=== PATIENT | male | born 1950 | race Caucasian/White ===

== ENCOUNTER 2016-12-04 19:40 | Emergency (ER) | payer BC ==
[~2016-12-04] VITALS: Ht 182.9 cm; Wt 75.7 kg
[2016-12-04 19:44] VITALS: Ht 182.9 cm; Wt 75.7 kg
[2016-12-04] MEDS ORDERED: METF-384 PO (20:33)
[2016-12-04] MEDS ORDERED: CHOL1000 PO (20:33)
[2016-12-04] MEDS ORDERED: ASPI81TA28 PO (20:33)
[2016-12-04] MEDS ORDERED: ATEN50TA8 PO (20:33)
[2016-12-04] MEDS ORDERED: HYDR25TA4 PO (20:33)
[2016-12-04 20:50] LABS: URINE APPEARANCE CLOUDY (CLEAR); URINE BILIRUBIN NEG (NEG); URINE COLOR YELLOW; URINE EPITHELIAL CELL AUTO 0-5 /lpf (0-5); URINE NITRITE NEG (NEG); URINE PH 5.5 (4.5-7.5); URINE SPECIFIC GRAVITY 1.028 (1.000-1.030); UROBILINOGEN NEG (NEG); ZZUR CULT IF INDIC CLEAN CATCH YES
[2016-12-04 20:53] LABS: MANUAL MICROSCOPIC REQUIRED? NO; REVIEW REQ? YES
[2016-12-04] MEDS ORDERED: CIPR-255 PO (21:57)
--- NOTE | 2016-12-04 22:00 | EMERGENCY ROOM VISIT NOTE ---
History Report prepared by Destiny: Guillermina Brand Under the Supervision of: Dr. Jeff Lainez D.O. First contact with patient: 20:05 Chief Complaint: URINARY SYMPTOMS Stated Complaint: UTI History of Present Illness The patient is a 66 year old male who presents to the Emergency Room with complaints of constant urinary symptoms beginning 1 week ago. The patient states that he travels for work and 2 weeks ago he was in [place] and there was brackish water. He notes that he was not supposed to drink the water and notes that it had sulfur in it. The patient now complains of burning with urination. He denies any hematuria, fever, abdominal pain, back pain, nausea, and vomiting. The patient notes that he has a history of hypertension. He notes decreased fluid intake due to frequent and painful urination. Source of History: patient Onset: 1 week ago Position: other (urinary) Quality: other (burning) Timing: constant Modifying Factors (Worsening): urination Associated Symptoms: No fevers, No nausea, No vomiting, No abdominal pain, No back pain Note: He denies any hematuria. Review of Systems See HPI for pertinent positives & negatives. A total of 10 systems reviewed and were otherwise negative. Past Medical & Surgical Medical Problems: (1) Hypertension Family History No pertinent family history stated. Social History Smoking Status: Never Smoker Occupation Status: employed Current/Historical Medications Scheduled Aspirin (Aspirin Ec), 81 MG PO DAILY Atenolol (Tenormin), 50 MG PO QAM Cholecalciferol (Vitamin D3), 1,000 INTER.UNIT PO DAILY Ciprofloxacin Hcl (Cipro), 500 MG PO BID Hydrochlorothiazide (Hctz), 25 MG PO QAM Metformin Hcl (Glucophage), 1,000 MG PO BID Allergies Coded Allergies: No Known Allergies (Unverified , 12/04/16) Physical Exam Vital Signs Date Time Temp Pulse Resp B/P (MAP) Pulse Ox O2 Delivery O2 Flow Rate FiO2 12/04/16 22:22 36.7 87 20 136/74 99 12/04/16 19:44 36.7 87 20 136/74 99 Room Air Physical Exam CONSTITUTIONAL/VITAL SIGNS: Reviewed / noted above. GENERAL: Non-toxic in appearance. INTEGUMENTARY: Warm, dry, and [place]. HEAD: Normocephalic. EYES: without scleral icterus or trauma. ENT/OROPHARYNX: clear and moist. LYMPHADENOPATHY/NECK: Is supple without lymphadenopathy or meningismus. RESPIRATORY: Lungs clear and equal. CARDIOVASCULAR: Regular rate and rhythm. GI/ABDOMEN: Soft and nontender. No organomegaly or pulsatile mass. No rebound or guarding. Normal bowel sounds. EXTREMITIES: Warm and well perfused. BACK: No CVA tenderness. NEUROLOGICAL: Intact without focal deficits. PSYCHIATRIC: normal affect. MUSCULOSKELETAL: Normally developed with good muscle tone. Medical Decision & Procedures Laboratory Results Test 12/04/16 00:00 12/04/16 20:33 Urine Color YELLOW Urine Appearance CLOUDY (CLEAR) Urine pH 5.5 (4.5-7.5) Urine Specific [place] 1.028 (1.000-1.030) Urine Protein 1+ (NEG) Urine Glucose (UA) 3+ (NEG) Urine Ketones 4+ (NEG) Urine Occult Blood 2+ (NEG) Urine Nitrite NEG (NEG) Urine Bilirubin NEG (NEG) Urine Urobilinogen NEG (NEG) Urine Leukocyte Esterase SMALL (NEG) Urine WBC (Auto) >30 /hpf (0-5) Urine RBC (Auto) 0-4 /hpf (0-4) Urine Hyaline Casts (Auto) 1-5 /lpf (0-5) Urine Epithelial Cells (Auto) 0-5 /lpf (0-5) Urine Bacteria (Auto) 1+ (NEG) Bedside Glucose 322 mg/dl (70-99) Laboratory results as stated above per my review. Medications Administered Medications (Trade) Dose Ordered Sig/Nilda Route Start Time Stop Time Status Last Admin Dose Admin Ciprofloxacin (Cipro Tab) 500 mg NOW STAT PO 12/04/16 22:05 12/04/16 22:06 DC 12/04/16 22:05 500 MG ED Course 2008: Previous medical records were reviewed. The patient was evaluated in room A3. A complete history and physical examination was performed. 2103: I reevaluated and updated the patient. 2201: On reevaluation, the patient is doing well. I discussed the results and findings with the patient. He verbalized agreement of the treatment plan. The patient was discharged home. Medical Decision Differential diagnosis includes UTI, over hydration, diabetes. Medication Reconciliation: I attest that I have personally reviewed the patient' s current medication list. Blood pressure Screening: Patient was found to have normal blood pressure on screening and does not require follow-up. This is a 66-year-old male who presents to the ED with a chief complaint of burning with urination. His had the symptoms for a couple of days. The patient denies any other significant symptoms. No fevers or flank pain. No nausea vomiting. He is a diabetic. He takes metformin. His blood sugar today was 3 22. The patient's urine reveals 4+ ketones, 2+ blood, small leukocyte esterase, greater than 30 WBCs and 1+ bacteria. The patient was treated with Cipro 500 mg twice daily. He was given one weeks worth. He is felt to be stable for discharge and outpatient follow-up. Impression Primary Impression: Urinary tract infection Scribe Attestation The scribe's documentation has been prepared under my direction and personally reviewed by me in its entirety. I confirm that the note above accurately reflects all work, treatment, procedures, and medical decision making performed by me. Departure Information Dispostion Home / Self-Care Prescriptions Ciprofloxacin Hcl (CIPRO) 500 Mg Tab 500 MG PO BID, #14 TAB Prov: Jeff Lainez D.O. 12/04/16 Forms HOME CARE DOCUMENTATION FORM, IMPORTANT VISIT INFORMATION Patient Instructions ED UTI Cystitis Male, My [facility] Additional Instructions Cipro as prescribed for one week. Follow-up with your doctor as needed if symptoms persist. Return for severe worsening or new concerns. Your blood sugar was high. Increase daily fluid intake.
[2016-12-04] MEDS ORDERED: CIPROFLOXACIN 500 MG TAB PO STA (22:05)
[2016-12-04 22:22] VITALS: BP 136/74; PULSE 87; TEMP 36.7; O2SAT 99
== END 2016-12-04 22:20 | disposition home or self-care (01) ==
LOC: C.EDB 19:42 → C.EDA 22:20
DX: N39.0 Urinary tract infection, site not specified (principal); I10 Essential (primary) hypertension; Z79.82 Long term (current) use of aspirin; Z79.899 Other long term (current) drug therapy

== ENCOUNTER 2016-12-06 09:28 | Inpatient (IN) | payer BC ==
[~2016-12-06] VITALS: Ht 182.9 cm; Wt 79.2 kg
[~2016-12-06 09:28] MED LIST: ASPI81TA28 PO; ATEN50TA8 PO; CHOL1000 PO; CIPR-255 PO; HYDR25TA4 PO; METF-384 PO
[2016-12-06] MEDS ORDERED: PHENAZOPYRIDINE HCL 200 MG TAB PO STA (10:08)
[2016-12-06] MEDS ORDERED: SODIUM CHLORIDE 0.9% 500ML 500 ML IV STA (10:08)
[2016-12-06] MEDS ORDERED: CEFTRIAXONE SOD INJ 1 GM ADDVIAL IV STA (10:08)
[2016-12-06 11:16] LABS: BASO % 0.2 %; BASO ABS # 0.03 K/uL (0-0.2); COMPLETE YES; HEMATOCRIT 40.5 % (42-52); IG% 0.5 %; LYMPH % 3.8 %; LYMPH ABS # 0.65 K/uL (1.2-3.4); MEAN CELL VOLUME 94.4 fL (80-100); MEAN CORPUSCULAR HEMOGLOBIN 31.5 pg (25-34); MEAN CORPUSCULAR HGB CONC 33.3 g/dl (32-36); MONO % 8.6 %; NEUT % 86.9 %; PLATELET COUNT 355 K/uL (130-400); RED BLOOD COUNT 4.29 M/uL (4.7-6.1); WHITE BLOOD COUNT 17.19 K/uL (4.8-10.8)
[2016-12-06 11:18] LABS: BUN/CREATININE RATIO 18.8 (10-20); CALCIUM 8.8 mg/dl (8.5-10.1); CREATININE 1.4 mg/dl (0.60-1.40); POTASSIUM 3.8 mmol/L (3.5-5.1)
[2016-12-06] MEDS ORDERED: VITA1TAB12 PO (11:21)
[2016-12-06] MEDS ORDERED: CYAN100020 PO (11:21)
--- NOTE | 2016-12-06 11:34 | DIAGNOSTIC IMAGING REPORT ---
CHEST AND ABDOMEN 2 VIEWS HISTORY: no bowel movement for several days COMPARISON: FINDINGS: The lungs are clear. The cardiomediastinal silhouette is within normal limits. There is no pneumoperitoneum or pneumatosis. The bowel gas pattern is unremarkable. No evidence for bowel obstruction. Large amount well-formed stool seen within the proximal colon. Rim calcified structure within the right upper quadrant may represent the gallbladder. Punctate calcifications adjacent to the kidneys favor vascular calcification. Soft tissue density within the midline pelvis. IMPRESSION: 1. No acute process within the chest. 2. No evidence for bowel obstruction. 3. Large amount well-formed stool within the proximal colon. 4. Rim calcified structure within the right upper quadrant which likely represents the gallbladder. 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 Follow-up nonemergent abdominal ultrasound is recommended. 5. Soft tissue density within the midline of the pelvis which favors a distended bladder. Electronically signed by: Wale Cronin M.D. 12/06/2016 11:33 AM Dictated Date/Time: 12/06/2016 11:29 AM
[2016-12-06] MEDS ORDERED: SODIUM CHLORIDE 0.9% 1000ML 1,000 ML IV STA (11:41)
[2016-12-06 11:51] LABS: URINE APPEARANCE CLEAR (CLEAR); URINE BILIRUBIN NEG (NEG); URINE COLOR YELLOW; URINE EPITHELIAL CELL AUTO >30 /lpf (0-5); URINE NITRITE NEG (NEG); URINE SPECIFIC GRAVITY 1.031 (1.000-1.030); UROBILINOGEN NEG (NEG)
[2016-12-06 11:55] LABS: REVIEW REQ? YES
[2016-12-06 11:56] LABS: MANUAL MICROSCOPIC REQUIRED? NO
[2016-12-06 12:07] LABS: VEN BLD GAS O2 SATURATION 67.3 %; VEN BLOOD GAS BASE EXCESS -5.6 mmol/L; VENOUS BLOOD GAS PCO2 36 mmHg (38.0-50.0); VENOUS BLOOD GAS PO2 37 mmHg
[2016-12-06] MEDS ORDERED: NovoLIN-R INSULIN PER UNIT CHARGE SC STA (12:07)
[2016-12-06] MEDS ORDERED: ONDANSETRON INJ 2 MG/ML 2 ML VIAL IV PRN (12:45)
[2016-12-06] MEDS ORDERED: ALUMINUM/MAGNESIUM/SIMETH (MAALOX MAX) 30 ML UDC PO PRN (12:45)
[2016-12-06] MEDS ORDERED: PHARMACY GLYCEMIC MGMT CONSULT PRN (12:45)
[2016-12-06] MEDS ORDERED: HHS GOAL RANGE 250-350 mg/dl ONE (12:45)
--- NOTE | 2016-12-06 12:59 | History and Physical ---
History & Physical Date & Time of Service: Dec 06, 2016 at 12:47 Chief Complaint: Urinary Tract Infection Primary Care Physician: No Doctor, Assigned History of Present Illness Source: patient Pt is a 66 yo male with known hx of DMII and HTN who presents to the ER with complaints burning sensation on urination for past 3 weeks. Pt states this was progressively getting worse and noted he had a drink of water that contained sulfur in it that might have caused this." Pt reports coming to ER two days ago and was given cipro at that time. Pain on urination still persisted however. Sensitivities pending but cx pos for staph. In addition pt states nausea but denies fevers, chill, abd pain, shortness of breath, chest pain, flank pain, diarrhea. Regarding his diabetes, pt states he only checks his glucose once a month and reading are generally high in the 200s. He states he has no PCP and that his [id number] prescribes him the metformin and blood pressure medications. Past Medical/Surgical History Medical Problems: (1) Hypertension Status: Chronic Family History No pertinent family history Social History Smoking Status: Former Smoker (quit 10 yrsa ago but smoked 1/2 ppd for 20+ yrs) Smokeless Tobacco Use: No Alcohol Use: socially Drug Use: none Marital Status: single Occupational Status: employed Allergies Coded Allergies: No Known Allergies (Unverified , 12/06/16) Home Medications Scheduled Aspirin (Aspirin Ec), 81 MG PO DAILY Atenolol (Tenormin), 50 MG PO QAM Cholecalciferol (Vitamin D3), 1,000 INTER.UNIT PO DAILY Cyanocobalamin (Vitamin B12), 1,000 MCG PO DAILY Hydrochlorothiazide (Hctz), 25 MG PO QAM Metformin Hcl (Glucophage), 1,000 MG PO BID Vitamin E (Vitamin E), 100 UNITS PO DAILY Review of Systems Constitutional: No fever, No chills, No sweats, No weakness, No fatigue ENT: No hearing loss, No unusual epistaxis, No nasal symptoms, No sore throat Respiratory: No cough, No sputum, No wheezing, No shortness of breath, No dyspnea on exertion Cardiovascular: No chest pain, No orthopnea, No PND, No edema Abdomen: + nausea, No pain, No vomiting, No diarrhea, No constipation Musculoskeletal: No joint pain, No muscle pain, No swelling, No calf pain Genitourinary - Male: + dysuria, No hematuria, No urinary frequency, No urinary urgency Neurologic: No memory loss, No paralysis, No weakness Psychiatric: No depression symptoms, No anhedonism Endocrine: No fatigue, No excessive thirst Integumentary: No rash, No itch Physical Exam Vital Signs Date Time Temp Pulse Resp B/P (MAP) Pulse Ox O2 Delivery O2 Flow Rate FiO2 12/06/16 11:43 83 17 107/60 97 Room Air 12/06/16 09:38 36.8 84 18 106/61 99 Room Air General Appearance: WD/WN, no apparent distress Head: normocephalic, atraumatic Eyes: normal inspection, PERRL, EOMI, sclerae normal Neck: supple, no adenopathy, thyroid normal, no JVD Respiratory/Chest: chest non-tender, lungs clear, normal breath sounds, no respiratory distress Cardiovascular: regular rate, rhythm, no edema, no gallop, no JVD Abdomen/GI: normal bowel sounds, non tender, soft, no organomegaly Back: normal inspection, no CVA tenderness, no muscle spasm, normal range of motion Extremities/Musculoskelatal: normal inspection, no calf tenderness, normal capillary refill, no pedal edema Neurologic/Psych: no motor/sensory deficits, alert, normal mood/affect, normal reflexes Diagnostics Laboratory Results Results Past 24 Hours Test 12/06/16 00:00 12/06/16 10:19 12/06/16 10:24 12/06/16 11:55 Range/Units Urine Color YELLOW Urine Appearance CLEAR CLEAR Urine pH 5.0 4.5-7.5 Urine Specific [place] 1.031 1.000-1.030 Urine Protein 1+ NEG Urine Glucose (UA) 3+ NEG Urine Ketones 3+ NEG Urine Occult Blood 2+ NEG Urine Nitrite NEG NEG Urine Bilirubin NEG NEG Urine Urobilinogen NEG NEG Urine Leukocyte Esterase TRACE NEG Urine WBC (Auto) >30 0-5 /hpf Urine RBC (Auto) 5-10 0-4 /hpf Urine Hyaline Casts (Auto) 5-10 0-5 /lpf Urine Epithelial Cells (Auto) >30 0-5 /lpf Urine Bacteria (Auto) 1+ NEG Urine Renal Epithelial Cells 0-5 /lpf Urine Pathogenic Casts 0 /lpf Urine Sperm (Auto) PRESENT NOT PRESENT Bedside Glucose 381 70-99 mg/dl White Blood Count 17.19 4.8-10.8 K/uL Red Blood Count 4.29 4.7-6.1 M/uL Hemoglobin 13.5 14.0-18.0 g/dL Hematocrit 40.5 42-52 % Mean Corpuscular Volume 94.4 80-100 fL Mean Corpuscular Hemoglobin 31.5 25-34 pg Mean Corpuscular Hemoglobin Concent 33.3 32-36 g/dl Platelet Count 355 130-400 K/uL Neutrophils (%) (Auto) 86.9 % Lymphocytes (%) (Auto) 3.8 % Monocytes (%) (Auto) 8.6 % Eosinophils (%) (Auto) 0.0 % Basophils (%) (Auto) 0.2 % Neutrophils # (Auto) 14.95 1.4-6.5 K/uL Lymphocytes # (Auto) 0.65 1.2-3.4 K/uL Monocytes # (Auto) 1.48 0.11-0.59 K/uL Eosinophils # (Auto) 0.00 0-0.5 K/uL Basophils # (Auto) 0.03 0-0.2 K/uL Immature Granulocyte % (Auto) 0.5 % Immature Granulocyte # (Auto) 0.08 0.00-0.02 K/uL Red Blood Cell Morphology Unremarkable Sodium Level 135 136-145 mmol/L Potassium Level 3.8 3.5-5.1 mmol/L Chloride Level 95 98-107 mmol/L Carbon Dioxide Level 23 21-32 mmol/L Anion Gap 17.0 3-11 mmol/L Blood Urea Nitrogen 26 7-18 mg/dl Creatinine 1.40 0.60-1.40 mg/dl Est Creatinine Clear Calc Drug Dose 53.8 ml/min Estimated GFR () 59.4 Estimated GFR (Non- 51.3 BUN/Creatinine Ratio 18.8 10-20 Random Glucose 392 70-99 mg/dl Calcium Level 8.8 8.5-10.1 mg/dl Total Bilirubin 0.4 0.2-1 mg/dl Direct Bilirubin 0.1 0-0.2 mg/dl Aspartate Amino Transf (AST/SGOT) 21 15-37 U/L Alanine Aminotransferase (ALT/SGPT) 14 12-78 U/L Alkaline Phosphatase 114 45-117 U/L Total Protein 7.9 6.4-8.2 gm/dl Albumin 2.9 3.4-5.0 gm/dl Lipase 67 73-393 U/L Venous Blood pH 7.35 7.36-7.41 Venous Blood Partial Pressure CO2 36 38.0-50.0 mmHg Venous Blood Partial Pressure O2 37 mmHg Venous Blood HCO3 19 meq/L Venous Blood Oxygen Saturation 67.3 % Venous Blood Base Excess -5.6 mmol/L Test 12/06/16 12:40 Range/Units Impression Assessment and Plan Pt is a 66 yo male with hx of DMII and HTN who presents with progressing dysuria x 3 weeks. Pt came to ER 2 days ago and was given cipro, at that time cx pos for stap with sens pending. Urinary tract infection - Will cover for staph with vanc and cover empirically with rocephin as well. Will obtain blood cx as well. Cont IVF at this time and keep pt NPO due to DKA DM II with [facility] - Pt reports hx of DM II but does not follow with PCP, states brother in law calls in metformin. Hold PO meds at this time and start on insulin drip. Noted pos ketones and elev AG. ABG does not note acidosis. Trend BMP and consult pharmacy for glycemic control. HgAIC pending. Will keep NPO and provide IVF. Pt will need PCP upon discharge. Dehydration/MACY - Bebo hold BP meds at this time HTN - Controlled at this time, see above Pt is FULL CODE VTE Prophylaxis VTE Risk Assessment Done? Y/N: Yes Risk Level: Moderate
[2016-12-06] MEDS: INSULIN ASPART 100 UNITS/ML 3 ML PEN SC SCH ×4 (13:00→20:50)
[2016-12-06] MEDS ORDERED: SODIUM CHLORIDE 0.9% 1000ML 1,000 ML IV ONE (13:15)
[2016-12-06 13:21] LABS: ESTIMATED AVERAGE GLUCOSE 329 mg/dl; HA1C FLAG Normal (Normal)
[2016-12-06] MEDS ORDERED: INSULIN IV INFUSION PROTOCOL SCH (13:32)
[2016-12-06 13:41] VITALS: BMI 22.5
--- NOTE | 2016-12-06 13:50 | Pharmacy Progress Note ---
Glycemic Control Intl Consult Date of Service Dec 06, 2016. Scope Glycemic Pharmacist consulted by Dr Hill on 12/06/16 for glycemic control and to write orders per [facility] [place] inpatient glycemic control protocol Objective Weight (Kilograms): 75.300 Accuchecks BSG (last 24hrs): Test 12/06/16 10:19 12/06/16 10:24 Bedside Glucose 381 mg/dl (70-99) Random Glucose 392 mg/dl (70-99) Laboratory Data (last 24hrs) Test 12/06/16 10:24 Anion Gap 17.0 mmol/L BUN/Creatinine Ratio 18.8 Blood Urea Nitrogen 26 mg/dl Creatinine 1.40 mg/dl Hemoglobin A1c 13.1 % Potassium Level 3.8 mmol/L Sodium Level 135 mmol/L White Blood Count 17.19 K/uL Red Blood Count 4.29 M/uL Hemoglobin 13.5 g/dL Hematocrit 40.5 % Mean Corpuscular Volume 94.4 fL Mean Corpuscular Hemoglobin 31.5 pg Mean Corpuscular Hemoglobin Concent 33.3 g/dl Platelet Count 355 K/uL Neutrophils (%) (Auto) 86.9 % Lymphocytes (%) (Auto) 3.8 % Monocytes (%) (Auto) 8.6 % Eosinophils (%) (Auto) 0.0 % Basophils (%) (Auto) 0.2 % Neutrophils # (Auto) 14.95 K/uL Lymphocytes # (Auto) 0.65 K/uL Monocytes # (Auto) 1.48 K/uL Eosinophils # (Auto) 0.00 K/uL Basophils # (Auto) 0.03 K/uL HbA1c Test 12/06/16 10:24 Hemoglobin A1c 13.1 % (4.5-5.6) H Recent Pertinent Medications Outpatient Anti-diabetic Regimen: * Metformin 1 g PO BIDM Risk Factors for Insulin Resistance: * Infection * IVF * Diet Assessment & Plan ASSESSMENT: * 66 yo M presenting today with painful urination X 3 weeks and severe hyperglycemia * A1c from today 13.1% indicating that patient usually lives in the 300's * Per MD, patient to be treated per [facility] protocol which I agree with * Initiate aggressive fluid therapy for dehydration/restore renal perfusion * Initiate Insulin drip per protocol * Moving forward I will keep goal range on insulin drip 200-300 mg/dL and reassess tomorrow * Since patient lives in the 300's I think he should probably be able to tolerate this goal range and it will make it easier to transition off drip versus 250-350 mg/dL goal range (pt is nearly within goal range now) PLAN FOR INPATIENT GLYCEMIC CONTROL: * Starting IV insulin infusion per severe stress protocol * Goal Range 200 - 300 mg/dl * In the critical care setting, continuous IV insulin infusion has been shown to be the best method for achieving glycemic targets. * Hold outpatient metformin LOOKING AHEAD TO DISCHARGE: * Pt will need insulin and follow up with PCP as soon as possible * Recommend CDE to see patient while here * Please note that the plan above was derived based on current level of insulin resistance and hospital stress. These recommendations are appropriate for inpatient admission only. Plan of care upon discharge will need to be reassessed to avoid potential outpatient hypo/hyperglycemia. Thank you.
[2016-12-06 13:54] LABS: BETA-HYDROXYBUTYRATE 64.38 mg/dL (0.2-2.81)
[2016-12-06] MEDS ORDERED: SODIUM CHLORIDE 0.9% 1000ML 1,000 ML IV SCH (14:15)
[2016-12-06] MEDS ORDERED: INSULIN HUMAN REGULAR IV BOLUS 3 UNIT in SYRINGE 0 ML IV SCH (14:30)
[2016-12-06] MEDS ORDERED: INSULIN REGULAR 250 UNITS in SODIUM CHLORIDE 0.9% 250ML 250 ML IV SCH (14:30)
[2016-12-06] MEDS ORDERED: GLUCOSE 10 TABS/TUBE PO PRN (14:45)
[2016-12-06] MEDS ORDERED: GLUCOSE 40% GEL 15 GM TUBE PO PRN (14:45)
[2016-12-06] MEDS ORDERED: GLUCAGON FOR INJ 1 MG VIAL SQ PRN (14:45)
[2016-12-06] MEDS ORDERED: DEXTROSE 50% 50 ML SYR IV PRN (14:45)
[2016-12-06 15:00] VITALS: BP 110/60; PULSE 78; TEMP 36.3; O2SAT 97
[2016-12-06] MEDS ORDERED: VANCOMYCIN CONSULT ACTIVE PRN (15:30)
--- NOTE | 2016-12-06 15:30 | Pharmacy Progress Note ---
Pharmacy Abx Initial Consult Date of Service Dec 06, 2016. Pharmacy Dosing Scope Date of Consult: 12/06/16 Consultation requested by: Dr. Hill Pharmacy is consulted to initiate Vancomycin IV dosing therapy, order appropriate labs and adjust drug dose/frequency. Subjective The patient is a 66 year old male admitted on Dec 06, 2016 at 12:40. Objective Height (Feet): 6 Height (Inches): 0.00 Weight (Kilograms): 75.300 Vital Signs (Past 12Hrs) Vital Signs Past 12 Hours Date Time Temp Pulse Resp B/P (MAP) Pulse Ox O2 Delivery O2 Flow Rate FiO2 12/06/16 14:29 84 19 110/53 95 12/06/16 13:41 Room Air 12/06/16 13:40 82 18 107/60 98 Room Air 12/06/16 11:43 83 17 107/60 97 Room Air 12/06/16 09:38 36.8 84 18 106/61 99 Room Air Lab Results (24Hrs) Test 12/06/16 00:00 12/06/16 10:19 12/06/16 10:24 12/06/16 11:55 Urine Color YELLOW Urine Appearance CLEAR (CLEAR) Urine pH 5.0 (4.5-7.5) Urine Specific [place] 1.031 (1.000-1.030) Urine Protein 1+ (NEG) Urine Glucose (UA) 3+ (NEG) Urine Ketones 3+ (NEG) Urine Occult Blood 2+ (NEG) Urine Nitrite NEG (NEG) Urine Bilirubin NEG (NEG) Urine Urobilinogen NEG (NEG) Urine Leukocyte Esterase TRACE (NEG) Urine WBC (Auto) >30 /hpf (0-5) Urine RBC (Auto) 5-10 /hpf (0-4) Urine Hyaline Casts (Auto) 5-10 /lpf (0-5) Urine Epithelial Cells (Auto) >30 /lpf (0-5) Urine Bacteria (Auto) 1+ (NEG) Urine Renal Epithelial Cells /lpf (0-5) Urine Pathogenic Casts /lpf (0) Urine Sperm (Auto) PRESENT (NOT PRESENT) Bedside Glucose 381 mg/dl (70-99) White Blood Count 17.19 K/uL (4.8-10.8) Red Blood Count 4.29 M/uL (4.7-6.1) Hemoglobin 13.5 g/dL (14.0-18.0) Hematocrit 40.5 % (42-52) Mean Corpuscular Volume 94.4 fL (80-100) Mean Corpuscular Hemoglobin 31.5 pg (25-34) Mean Corpuscular Hemoglobin Concent 33.3 g/dl (32-36) Platelet Count 355 K/uL (130-400) Neutrophils (%) (Auto) 86.9 % Lymphocytes (%) (Auto) 3.8 % Monocytes (%) (Auto) 8.6 % Eosinophils (%) (Auto) 0.0 % Basophils (%) (Auto) 0.2 % Neutrophils # (Auto) 14.95 K/uL (1.4-6.5) Lymphocytes # (Auto) 0.65 K/uL (1.2-3.4) Monocytes # (Auto) 1.48 K/uL (0.11-0.59) Eosinophils # (Auto) 0.00 K/uL (0-0.5) Basophils # (Auto) 0.03 K/uL (0-0.2) Immature Granulocyte % (Auto) 0.5 % Immature Granulocyte # (Auto) 0.08 K/uL (0.00-0.02) Red Blood Cell Morphology Unremarkable Sodium Level 135 mmol/L (136-145) Potassium Level 3.8 mmol/L (3.5-5.1) Chloride Level 95 mmol/L (98-107) Carbon Dioxide Level 23 mmol/L (21-32) Anion Gap 17.0 mmol/L (3-11) Blood Urea Nitrogen 26 mg/dl (7-18) Creatinine 1.40 mg/dl (0.60-1.40) Est Creatinine Clear Calc Drug Dose 53.8 ml/min Estimated GFR () 59.4 Estimated GFR (Non- 51.3 BUN/Creatinine Ratio 18.8 (10-20) Random Glucose 392 mg/dl (70-99) Estimated Average Glucose 329 mg/dl Hemoglobin A1c 13.1 % (4.5-5.6) Calcium Level 8.8 mg/dl (8.5-10.1) Total Bilirubin 0.4 mg/dl (0.2-1) Direct Bilirubin 0.1 mg/dl (0-0.2) Aspartate Amino Transf (AST/SGOT) 21 U/L (15-37) Alanine Aminotransferase (ALT/SGPT) 14 U/L (12-78) Alkaline Phosphatase 114 U/L (45-117) Total Protein 7.9 gm/dl (6.4-8.2) Albumin 2.9 gm/dl (3.4-5.0) Lipase 67 U/L (73-393) Beta-Hydroxybutyric Acid 64.38 mg/dL (0.2-2.81) Hepatitis C Antibody Screen NEG (NEG) Venous Blood pH 7.35 (7.36-7.41) Venous Blood Partial Pressure CO2 36 mmHg (38.0-50.0) Venous Blood Partial Pressure O2 37 mmHg Venous Blood HCO3 19 meq/L Venous Blood Oxygen Saturation 67.3 % Venous Blood Base Excess -5.6 mmol/L Test 12/06/16 13:42 Bedside Glucose 329 mg/dl (70-99) Micro Results Date/Time Source Procedure Growth Status 12/06/16 12:59 Blood Blood Culture Pending [place] Batch 12/06/16 12:59 Blood Blood Culture Pending [place] Batch Risk Factors for Resistance * Antimicrobial use within the last 90 days [cipro - x 2 days, outpatient tx] Assessment & Plan Assessment 66 year old male initiated on IV Vanco + Rocephin for uncomplicated UTI. Plan Vancomycin for treatment of UTI Vancomycin IV * Loading dose: 1,800 mg (25 mg/kg) * Maintenance dose: Vancomycin 1,200 mg IV (15 mg/kg) every 14 hours * Goal trough level for UTI : 10 to 15 mcg/mL * Trough level ordered for 12/08/16 @ 2330 * A less than traditional dose has been selected based on pt calculated/ estimated PK parameters Pharmacy will continue to follow and will adjust dose/frequency as necessary. Thank you.
--- NOTE | 2016-12-06 15:31 | EMERGENCY ROOM VISIT NOTE ---
History Report prepared by Destiny: Yoshi Keys Under the Supervision of: Dr. Rigoberto Caballero D.O. First contact with patient: 09:51 Chief Complaint: URINARY SYMPTOMS Stated Complaint: URINARY TRACT INFECTION History of Present Illness The patient is a 66 year old male who presents to the Emergency Room with complaints of a persistent urinary tract infection that started last week. He says that he was traveling last week and came into contact with bathroom water from a well that had bacteria in it. The patient says that the next day, a sign on the bathroom was posted that said "boil water". He states that ever since then, he has been having burning with urination and increased frequency of urination. The patient notes that last night he spent the whole night in the bathtub. He was seen here 2 days ago and was prescribed Cipro. He has gotten a total 2 full days of dosage so far, however his symptoms have not been relieved at all. The patient adds that he has had a minimal appetite, and he had to force himself to eat last night. That was the first major meal he has had in a while. He denies any fevers, nausea, vomiting, abdominal pain, back pain, or diarrhea. He is a diabetic and does take metformin daily. Source of History: patient Onset: Last week Position: other (global - UTI) Symptom Intensity: spent last night in bathtub Timing: other (persistent) Associated Symptoms: + urinary symptoms (burning with urination, frequent urination), No fevers, No nausea, No vomiting, No abdominal pain, No back pain, No diarrhea Note: Associated symptoms: Minimal appetite. Review of Systems See HPI for pertinent positives & negatives. A total of 10 systems reviewed and were otherwise negative. Past Medical & Surgical Medical Problems: (1) Hypertension (2) Urinary tract infection Family History No pertinent family history Social History Smoking Status: Former Smoker Marital Status: single Occupation Status: employed Current/Historical Medications Scheduled Aspirin (Aspirin Ec), 81 MG PO DAILY Atenolol (Tenormin), 50 MG PO QAM Cholecalciferol (Vitamin D3), 1,000 INTER.UNIT PO DAILY Cyanocobalamin (Vitamin B12), 1,000 MCG PO DAILY Hydrochlorothiazide (Hctz), 25 MG PO QAM Metformin Hcl (Glucophage), 1,000 MG PO BID Vitamin E (Vitamin E), 100 UNITS PO DAILY Allergies Coded Allergies: No Known Allergies (Unverified , 12/06/16) Physical Exam Vital Signs Date Time Temp Pulse Resp B/P (MAP) Pulse Ox O2 Delivery O2 Flow Rate FiO2 12/06/16 11:43 83 17 107/60 97 Room Air 12/06/16 09:38 36.8 84 18 106/61 99 Room Air Physical Exam GENERAL: sitting up in bed, disheveled, no acute distress, nontoxic EYE EXAM: normal conjunctiva OROPHARYNX: no exudate, no erythema, lips, buccal mucosa, and tongue normal and mucous membranes are moist NECK: supple, no nuchal rigidity, no adenopathy, non-tender LUNGS: Clear to auscultation. Normal chest wall mechanics HEART: no murmurs, S1 normal and S2 normal ABDOMEN: abdomen soft, non-tender, normo-active bowel sounds, no masses, no rebound or guarding. BACK: Back is symmetrical on inspection and there is no deformity, no midline tenderness, no CVA tenderness. SKIN: no rashes and no bruising UPPER EXTREMITIES: upper extremities are grossly normal. LOWER EXTREMITIES: No pitting edema. : Normal external circumcised genitalia, testicles nontender NEURO EXAM: Normal sensorium, cranial nerves II-XII grossly intact, normal speech, no gross weakness of arms, no gross weakness of legs. Medical Decision & Procedures ER Provider Diagnostic Interpretation: X-ray results as stated below per my review and the radiologist's interpretation : CHEST AND ABDOMEN 2 VIEWS HISTORY: no bowel movement for several days COMPARISON: FINDINGS: The lungs are clear. The cardiomediastinal silhouette is within normal limits. There is no pneumoperitoneum or pneumatosis. The bowel gas pattern is unremarkable. No evidence for bowel obstruction. Large amount well-formed stool seen within the proximal colon. Rim calcified structure within the right upper quadrant may represent the gallbladder. Punctate calcifications adjacent to the kidneys favor vascular calcification. Soft tissue density within the midline pelvis. IMPRESSION: 1. No acute process within the chest. 2. No evidence for bowel obstruction. 3. Large amount well-formed stool within the proximal colon. 4. Rim calcified structure within the right upper quadrant which likely represents the gallbladder. 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 Follow-up nonemergent abdominal ultrasound is recommended. 5. Soft tissue density within the midline of the pelvis which favors a distended bladder. Electronically signed by: Wale Cronin M.D. 12/06/2016 11:33 AM Dictated Date/Time: 12/06/2016 11:29 AM Laboratory Results 12/06/16 10:24 Red Blood Count 4.29, Mean Corpuscular Volume 94.4, Mean Corpuscular Hemoglobin 31.5, Mean Corpuscular Hemoglobin Concent 33.3, Neutrophils (%) (Auto) 86.9, Lymphocytes (%) (Auto) 3.8, Monocytes (%) (Auto) 8.6, Eosinophils (%) (Auto) 0.0 , Basophils (%) (Auto) 0.2, Neutrophils # (Auto) 14.95, Lymphocytes # (Auto) 0.65, Monocytes # (Auto) 1.48, Eosinophils # (Auto) 0.00, Basophils # (Auto) 0.03 12/06/16 10:24 Test 12/06/16 00:00 12/06/16 10:24 12/06/16 11:55 Urine Color YELLOW Urine Appearance CLEAR (CLEAR) Urine pH 5.0 (4.5-7.5) Urine Specific [place] 1.031 (1.000-1.030) Urine Protein 1+ (NEG) Urine Glucose (UA) 3+ (NEG) Urine Ketones 3+ (NEG) Urine Occult Blood 2+ (NEG) Urine Nitrite NEG (NEG) Urine Bilirubin NEG (NEG) Urine Urobilinogen NEG (NEG) Urine Leukocyte Esterase TRACE (NEG) Urine WBC (Auto) >30 /hpf (0-5) Urine RBC (Auto) 5-10 /hpf (0-4) Urine Hyaline Casts (Auto) 5-10 /lpf (0-5) Urine Epithelial Cells (Auto) >30 /lpf (0-5) Urine Bacteria (Auto) 1+ (NEG) Urine Renal Epithelial Cells /lpf (0-5) Urine Pathogenic Casts /lpf (0) Urine Sperm (Auto) PRESENT (NOT PRESENT) White Blood Count 17.19 K/uL (4.8-10.8) Red Blood Count 4.29 M/uL (4.7-6.1) Hemoglobin 13.5 g/dL (14.0-18.0) Hematocrit 40.5 % (42-52) Mean Corpuscular Volume 94.4 fL (80-100) Mean Corpuscular Hemoglobin 31.5 pg (25-34) Mean Corpuscular Hemoglobin Concent 33.3 g/dl (32-36) Platelet Count 355 K/uL (130-400) Neutrophils (%) (Auto) 86.9 % Lymphocytes (%) (Auto) 3.8 % Monocytes (%) (Auto) 8.6 % Eosinophils (%) (Auto) 0.0 % Basophils (%) (Auto) 0.2 % Neutrophils # (Auto) 14.95 K/uL (1.4-6.5) Lymphocytes # (Auto) 0.65 K/uL (1.2-3.4) Monocytes # (Auto) 1.48 K/uL (0.11-0.59) Eosinophils # (Auto) 0.00 K/uL (0-0.5) Basophils # (Auto) 0.03 K/uL (0-0.2) Immature Granulocyte % (Auto) 0.5 % Immature Granulocyte # (Auto) 0.08 K/uL (0.00-0.02) Red Blood Cell Morphology Unremarkable Anion Gap 17.0 mmol/L (3-11) Est Creatinine Clear Calc Drug Dose 53.8 ml/min Estimated GFR () 59.4 Estimated GFR (Non- 51.3 BUN/Creatinine Ratio 18.8 (10-20) Estimated Average Glucose 329 mg/dl Hemoglobin A1c 13.1 % (4.5-5.6) Calcium Level 8.8 mg/dl (8.5-10.1) Total Bilirubin 0.4 mg/dl (0.2-1) Direct Bilirubin 0.1 mg/dl (0-0.2) Aspartate Amino Transf (AST/SGOT) 21 U/L (15-37) Alanine Aminotransferase (ALT/SGPT) 14 U/L (12-78) Alkaline Phosphatase 114 U/L (45-117) Total Protein 7.9 gm/dl (6.4-8.2) Albumin 2.9 gm/dl (3.4-5.0) Lipase 67 U/L (73-393) Beta-Hydroxybutyric Acid 64.38 mg/dL (0.2-2.81) Hepatitis C Antibody Screen NEG (NEG) Venous Blood pH 7.35 (7.36-7.41) Venous Blood Partial Pressure CO2 36 mmHg (38.0-50.0) Venous Blood Partial Pressure O2 37 mmHg Venous Blood HCO3 19 meq/L Venous Blood Oxygen Saturation 67.3 % Venous Blood Base Excess -5.6 mmol/L Laboratory results per my review. Medications Administered Medications (Trade) Dose Ordered Sig/Nilda Route Start Time Stop Time Status Last Admin Dose Admin Sodium Chloride 500 ml @ 999 mls/hr Q31M STAT IV 12/06/16 10:08 12/06/16 10:38 DC 12/06/16 10:08 999 MLS/HR Ceftriaxone Sodium (Rocephin Inj) 1 gm NOW STAT IV 12/06/16 10:08 12/06/16 10:10 DC 12/06/16 11:00 1 GM Phenazopyridine HCl (Pyridium Tab) 200 mg NOW STAT PO 12/06/16 10:08 12/06/16 10:10 DC 12/06/16 11:00 200 MG Sodium Chloride 1,000 ml @ 999 mls/hr Q1H1M STAT IV 12/06/16 11:41 12/06/16 12:41 DC 12/06/16 11:45 999 MLS/HR Insulin Human Regular (novoLIN-R U-100 PER UNIT) 8 units NOW STAT SC 12/06/16 12:07 12/06/16 12:09 DC 12/06/16 12:18 8 UNITS ED Course ED COURSE: Vital signs were reviewed and showed normal vitals. The patients medical record was reviewed The above diagnostic studies were performed and reviewed. ED treatments and interventions as stated above. 1000: The patient was evaluated in room A10. A complete history and physical examination was performed. 1008: Ordered Pyridium Tab 200 mg PO, Rocephin Inj 1 gm IV, NSS 500 ml @ 999 mls /hr IV. 1141: Ordered NSS 1000 ml @ 999 mls/hr IV. 1207: Ordered Novolin-R U-100 PER UNIT 8 units SC. 1213: Upon reevaluation, the patient is resting comfortably.I discussed my findings with the patient and he understands and agrees with the treatment plan. Based on the patients age, coexisting illnesses, exam and lab findings the decision to treat as an inpatient was made. The patient remained stable while under my care. The patient will be evaluated for further management. 1216: I discussed the patient with Dr. Sergio SAMPSON primary therapist - he will evaluate the patient for further treatment. Medical Decision Differential diagnoses includes but is not limited to gastritis, peptic ulcer disease, GERD, gallbladder disease, pancreatitis, small bowel obstruction, acute coronary syndrome, pericarditis, ischemic bowel, irritable bowel disease, irritable bowel syndrome, appendicitis, diverticulitis, malignancy, hernia, urinary tract infection, torsion, perforation, trauma, infectious. Medication Reconciliation: I attest that I have personally reviewed the patient' s current medication list. Blood pressure screening: Patient was found to have normal blood pressure on screening and does not require follow-up. Patient is a 66-year-old male who presents the ER for dysuria, urgency and frequency which has been going on for the past 3 days. He was recently evaluated and treated for UTI and placed on Cipro. Labs show a leukocytosis of 17,000, BSG of 400 along with a gap of 17. +3 ketones. Patient was given a bolus normal saline and Rocephin. Patient was also given subcutaneous insulin. I discussed the case with internal medicine with the hyperglycemia and UTI. Patient was admitted for further workup for that UTI likely causing hyperglycemia. Consults Time Called: 1210 Consulting Physician: Dr. Sergio SAMPSON primary therapist Returned Call: 1216 I discussed the patient with Dr. Sergio SAMPSON primary therapist - he will evaluate the patient for further treatment. Impression Primary Impression: Urinary tract infection Additional Impression: DKA (diabetic ketoacidoses) Scribe Attestation The scribe's documentation has been prepared under my direction and personally reviewed by me in its entirety. I confirm that the note above accurately reflects all work, treatment, procedures, and medical decision making performed by me. Departure Information Dispostion Being Evaluated By Hospitalist Referrals No Doctor, Assigned (PCP) Patient Instructions My [facility] Problem Qualifiers Primary Impression: Urinary tract infection Urinary tract infection type: site unspecified Hematuria presence: with hematuria Qualified Codes: N39.0 - Urinary tract infection, site not specified ; R31.9 - Hematuria, unspecified Additional Impression: DKA (diabetic ketoacidoses) Diabetes mellitus type: other specified (including VOLODYMYR) Diabetes mellitus complication detail: without coma Qualified Codes: E13.10 - Other specified diabetes mellitus with ketoacidosis without coma
[2016-12-06 15:57] LABS: PARTIAL THROMBOPLASTIN RATIO 1.1; PROTHROMBIN TIME (PATIENT) 10.7 SECONDS (9.0-12.0)
[2016-12-06 16:00] VITALS: O2SAT 97
[2016-12-06 16:00] LABS: BUN/CREATININE RATIO 20.5 (10-20); CALCIUM 8.4 mg/dl (8.5-10.1); CREATININE 1.4 mg/dl (0.60-1.40); PHOSPHORUS 2.6 mg/dl (2.5-4.9)
[2016-12-06] MEDS ORDERED: VANCOMYCIN INJ 1,800 MG in SODIUM CHLORIDE 0.9% 500ML 500 ML IV ONE (16:00)
[2016-12-06] MEDS ORDERED: INSULIN GLARGINE SOLOSTAR 100 UNITS/ML 3 ML PEN SC SCH (17:30)
[2016-12-06 19:12] VITALS: BP 154/68; PULSE 101; TEMP 37.1; O2SAT 96
[2016-12-06] MEDS ORDERED: NURSING VERBAL MED ORDER ONE (19:30)
[2016-12-06] MEDS ORDERED: SOD PHOSPHATE/SOD BIPHOSPHATE ENEMA 132 ML BTL PR STA (19:41)
[2016-12-06] MEDS ORDERED: DOCUSATE SODIUM 100 MG CAP PO ONE (20:15)
[2016-12-06 20:22] LABS: BUN/CREATININE RATIO 23.2 (10-20); CREATININE 1.3 mg/dl (0.60-1.40); MAGNESIUM 1.8 mg/dl (1.8-2.4); POTASSIUM 3.3 mmol/L (3.5-5.1)
[2016-12-06 20:33] LABS: PHOSPHORUS 1.4 mg/dl (2.5-4.9)
[2016-12-06] MEDS: PHENAZOPYRIDINE HCL 200 MG TAB PO PRN (20:48)
[2016-12-06] MEDS: INSULIN GLARGINE SOLOSTAR 100 UNITS/ML 3 ML PEN SC SCH (20:50)
[2016-12-06] MEDS: HEPARIN SOD 5000 UNIT/0.5 ML CARP SQ SCH (20:51)
[2016-12-06 23:44] VITALS: BP 138/68; PULSE 88; TEMP 36.8; O2SAT 97
[2016-12-07] VITALS (8 sets, daily range): BP systolic 122–163; BP diastolic 67–82; PULSE 75–88; TEMP 36.4–36.8; O2SAT 84–98
[2016-12-07 00:14] LABS: BUN/CREATININE RATIO 22.4 (10-20); CALCIUM 8.1 mg/dl (8.5-10.1); CREATININE 1.2 mg/dl (0.60-1.40); MAGNESIUM 1.8 mg/dl (1.8-2.4); PHOSPHORUS 1.8 mg/dl (2.5-4.9); POTASSIUM 3.2 mmol/L (3.5-5.1)
[2016-12-07] MEDS ORDERED: POTASSIUM PHOS 3 MMOL/1 ML INFUSION IV STA (00:24)
[2016-12-07] MEDS ORDERED: POTASSIUM PHOSPHATE INJ 15 MMOL in SODIUM CHLORIDE 0.9% 250ML 250 ML IV SCH (01:00)
[2016-12-07] MEDS: ACETAMINOPHEN 325 MG TAB PO PRN (01:03)
[2016-12-07] MEDS: NSS + 20MEQ KCL 1000ML 1,000 ML IV SCH ×3 (01:04→21:09)
[2016-12-07] MEDS ORDERED: VANCOMYCIN INJ 1,200 MG in SODIUM CHLORIDE 0.9% 250ML 250 ML IV SCH (06:00)
[2016-12-07] MEDS: PHENAZOPYRIDINE HCL 200 MG TAB PO PRN (06:08)
[2016-12-07] MEDS: HEPARIN SOD 5000 UNIT/0.5 ML CARP SQ SCH ×3 (06:09→20:31)
[2016-12-07] MEDS ORDERED: POLYETHYLENE (MIRALAX) 17 GM PACK ONE (08:42)
[2016-12-07] MEDS: SENNA 8.6 MG TAB PO SCH (08:43)
[2016-12-07] MEDS: INSULIN ASPART 100 UNITS/ML 3 ML PEN SC SCH ×4 (08:49→20:30)
[2016-12-07] MEDS: POLYETHYLENE (MIRALAX) 17 GM PACK PO SCH (08:50)
[2016-12-07] MEDS: INSULIN GLARGINE SOLOSTAR 100 UNITS/ML 3 ML PEN SC SCH ×2 (08:50→20:31)
[2016-12-07 08:51] LABS: HEMATOCRIT 37.7 % (42-52); MEAN CELL VOLUME 94.5 fL (80-100); MEAN CORPUSCULAR HEMOGLOBIN 32.1 pg (25-34); MEAN PLATELET VOLUME 9.7 fL (7.4-10.4); PLATELET COUNT 306 K/uL (130-400); RED BLOOD COUNT 3.99 M/uL (4.7-6.1); WHITE BLOOD COUNT 16.56 K/uL (4.8-10.8)
[2016-12-07 09:18] LABS: BUN/CREATININE RATIO 23.9 (10-20); CREATININE 0.97 mg/dl (0.60-1.40); PHOSPHORUS 2.1 mg/dl (2.5-4.9); POTASSIUM 3.3 mmol/L (3.5-5.1)
[2016-12-07] MEDS ORDERED: CEFTRIAXONE SOD INJ 1 GM in DEXTROSE 5% ADD-VANTAGE 50ML 50 ML IV SCH (10:00)
[2016-12-07] MEDS ORDERED: POTASSIUM CHLORIDE 20 MEQ TABCR PO ONE (10:00)
--- NOTE | 2016-12-07 10:31 | Hospitalist Progress Note ---
Hospitalist Progress Note Date of Service Dec 07, 2016. (Melony Newman ., PA-C) Subjective Pt evaluation today including: conversation w/ patient, physical exam, chart review, lab review, review of studies, review of inpatient medication list Patient states he is currently feeling well. +constipation- last bowel movement 4 days ago. No abdominal pain, +flatus. +dysuria and frequency. Patient states he has started urinating himself in bed because overnight he kept feeling like he had to go to the bathroom, but then would try and only urinated a little and he was tired of getting out of bed. Patient denies any fever, chills, sweats, lightheadedness, dizziness, vision changes, CP, palpitations, edema, SOB, wheezing, cough, abdominal pain, nausea, vomiting, diarrhea, melena, numbness/ tingling, weakness, muscle/joint pain, anxiety/depression, active bleeding, or new skin discoloration/changes. Patient does not follow with a PCP; his [id number] writes him scripts for his medications. He does not follow his blood sugars at home. (Melony Newman ., PA-C) Medications Current Inpatient Medications Medications (Trade) Dose Ordered Sig/Nilda Route Start Time Stop Time Status Last Admin Dose Admin Heparin Sodium (Porcine) (Heparin Sq 5000 Unit/0.5ml) 5,000 unit Q8 SQ 12/06/16 22:00 01/05/17 21:59 12/07/16 06:09 5,000 UNIT Acetaminophen (Tylenol Tab) 650 mg Q4H PRN PO 12/06/16 12:45 01/05/17 12:44 12/07/16 01:03 650 MG Al Hydrox/Mg Hydrox/Simethicone (Maalox Max Susp) 15 ml Q4H PRN PO 12/06/16 12:45 01/05/17 12:44 Ondansetron HCl (Zofran Inj) 4 mg Q6H PRN IV 12/06/16 12:45 01/05/17 12:44 Miscellaneous Information (Consult Glycemic Management Pharmacy) 1 ea UD PRN N/A 12/06/16 12:45 01/05/17 12:44 Ceftriaxone Sodium 1 gm/ Dextrose 50 ml @ 100 mls/hr Q24H IV 12/07/16 10:00 12/11/16 09:59 12/07/16 08:50 100 MLS/HR Vancomycin HCl 1200 mg/Sodium Chloride 274 ml @ 125 mls/hr Q14H IV 12/07/16 06:00 12/12/16 05:59 12/07/16 06:08 125 MLS/HR Atenolol (Tenormin Tab) 50 mg QAM PO 12/07/16 09:00 01/06/17 08:59 12/07/16 08:43 50 MG Glucose (Glucose 40% Gel) 15-30 GRAMS 15 GRAMS... UD PRN PO 12/06/16 14:45 01/05/17 14:44 Glucose (Glucose Chew Tab) 4-8 Tablets 4 Tabl... UD PRN PO 12/06/16 14:45 01/05/17 14:44 Dextrose (Dextrose 50% 50ML Syringe) 25-50ML OF 50% DW IV FOR... UD PRN IV 12/06/16 14:45 01/05/17 14:44 Glucagon (Glucagon Inj) 1 mg UD PRN SQ 12/06/16 14:45 01/05/17 14:44 Vancomycin HCl (Consult) 1 ea UD PRN N/A 12/06/16 15:30 01/05/17 15:29 Insulin Aspart (novoLOG ASPART) SLIDING SCALE ACHS SC 12/06/16 17:27 01/05/17 17:26 12/07/16 08:49 5 UNITS Insulin Glargine (Lantus Solostar Pen) PER PROTOCOL BID SC 12/06/16 21:00 01/05/17 20:59 12/07/16 08:50 10 UNIT Phenazopyridine HCl (Pyridium Tab) 200 mg TID PRN PO 12/06/16 19:45 01/05/17 19:44 12/07/16 06:08 200 MG Senna (Senokot Tab) 8.6 mg QAM PO 12/07/16 09:00 01/06/17 08:59 12/07/16 08:43 8.6 MG Senna (Senokot Tab) 8.6 mg 2000 ONCE PO 12/07/16 20:00 12/07/16 20:01 Potassium Chloride/Sodium Chloride 1,000 ml @ 100 mls/hr Q10H IV 12/07/16 00:24 01/06/17 00:23 12/07/16 10:04 100 MLS/HR Polyethylene (Miralax Powder Packet) 17 gm DAILY PO 12/07/16 09:00 01/06/17 08:59 (Melony Newman PA-C) Objective Vital Signs Date Time Temp Pulse Resp B/P (MAP) Pulse Ox O2 Delivery O2 Flow Rate FiO2 12/07/16 08:00 94 Room Air 12/07/16 07:09 36.6 84 19 163/82 (109) 84 Room Air 12/07/16 04:01 Room Air 12/07/16 03:52 36.4 75 16 122/67 (85) 95 Room Air 12/07/16 00:00 Room Air 12/06/16 23:44 36.8 88 22 138/68 (91) 97 Room Air 12/06/16 20:04 Room Air 12/06/16 19:12 37.1 101 20 154/68 (96) 96 Room Air 12/06/16 16:00 97 Room Air 12/06/16 15:00 36.3 78 18 110/60 (77) 97 Room Air 12/06/16 14:29 84 19 110/53 95 12/06/16 13:41 Room Air 12/06/16 13:40 82 18 107/60 98 Room Air 12/06/16 11:43 83 17 107/60 97 Room Air (Melony Newman PA-C) Physical Exam General Appearance: no apparent distress Eyes: normal inspection, PERRL ENT: hearing grossly normal Neck: supple Respiratory/Chest: lungs clear, no respiratory distress, no accessory muscle use Cardiovascular: regular rate, rhythm Abdomen: normal bowel sounds, non tender, soft Extremities: no pedal edema, no calf tenderness Neurologic/Psychiatric: alert, normal mood/affect, oriented x 3 Skin: normal color, warm/dry, no rash (Melony Newman PA-C) Laboratory Results Last 24 Hours Test 12/06/16 10:19 12/06/16 10:24 12/06/16 11:55 12/06/16 13:42 Bedside Glucose 381 mg/dl 329 mg/dl White Blood Count 17.19 K/uL Red Blood Count 4.29 M/uL Hemoglobin 13.5 g/dL Hematocrit 40.5 % Mean Corpuscular Volume 94.4 fL Mean Corpuscular Hemoglobin 31.5 pg Mean Corpuscular Hemoglobin Concent 33.3 g/dl Platelet Count 355 K/uL Neutrophils (%) (Auto) 86.9 % Lymphocytes (%) (Auto) 3.8 % Monocytes (%) (Auto) 8.6 % Eosinophils (%) (Auto) 0.0 % Basophils (%) (Auto) 0.2 % Neutrophils # (Auto) 14.95 K/uL Lymphocytes # (Auto) 0.65 K/uL Monocytes # (Auto) 1.48 K/uL Eosinophils # (Auto) 0.00 K/uL Basophils # (Auto) 0.03 K/uL Immature Granulocyte % (Auto) 0.5 % Immature Granulocyte # (Auto) 0.08 K/uL Red Blood Cell Morphology Unremarkable Sodium Level 135 mmol/L Potassium Level 3.8 mmol/L Chloride Level 95 mmol/L Carbon Dioxide Level 23 mmol/L Anion Gap 17.0 mmol/L Blood Urea Nitrogen 26 mg/dl Creatinine 1.40 mg/dl Est Creatinine Clear Calc Drug Dose 53.8 ml/min Estimated GFR () 59.4 Estimated GFR (Non- 51.3 BUN/Creatinine Ratio 18.8 Random Glucose 392 mg/dl Estimated Average Glucose 329 mg/dl Hemoglobin A1c 13.1 % Calcium Level 8.8 mg/dl Total Bilirubin 0.4 mg/dl Direct Bilirubin 0.1 mg/dl Aspartate Amino Transf (AST/SGOT) 21 U/L Alanine Aminotransferase (ALT/SGPT) 14 U/L Alkaline Phosphatase 114 U/L Total Protein 7.9 gm/dl Albumin 2.9 gm/dl Lipase 67 U/L Beta-Hydroxybutyric Acid 64.38 mg/dL Hepatitis C Antibody Screen NEG Venous Blood pH 7.35 Venous Blood Partial Pressure CO2 36 mmHg Venous Blood Partial Pressure O2 37 mmHg Venous Blood HCO3 19 meq/L Venous Blood Oxygen Saturation 67.3 % Venous Blood Base Excess -5.6 mmol/L Test 12/06/16 15:12 12/06/16 15:15 12/06/16 16:11 12/06/16 16:52 Sodium Level 141 mmol/L Potassium Level 3.0 mmol/L Chloride Level 102 mmol/L Carbon Dioxide Level 24 mmol/L Anion Gap 15.0 mmol/L Blood Urea Nitrogen 29 mg/dl Creatinine 1.40 mg/dl Est Creatinine Clear Calc Drug Dose 53.8 ml/min Estimated GFR () 59.4 Estimated GFR (Non- 51.3 BUN/Creatinine Ratio 20.5 Random Glucose 186 mg/dl Calcium Level 8.4 mg/dl Phosphorus Level 2.6 mg/dl Magnesium Level 2.0 mg/dl Prothrombin Time 10.7 SECONDS Prothromb Time International Ratio 1.0 Activated Partial Thromboplast Time 28.1 SECONDS Partial Thromboplastin Ratio 1.1 Bedside Glucose 164 mg/dl 101 mg/dl Test 12/06/16 17:47 12/06/16 19:50 12/06/16 20:14 12/06/16 23:50 Bedside Glucose 145 mg/dl 178 mg/dl Sodium Level 140 mmol/L 141 mmol/L Potassium Level 3.3 mmol/L 3.2 mmol/L Chloride Level 104 mmol/L 103 mmol/L Carbon Dioxide Level 23 mmol/L 26 mmol/L Anion Gap 13.0 mmol/L 12.0 mmol/L Blood Urea Nitrogen 30 mg/dl 27 mg/dl Creatinine 1.30 mg/dl 1.20 mg/dl Est Creatinine Clear Calc Drug Dose 57.9 ml/min 62.8 ml/min Estimated GFR () 65.0 71.6 Estimated GFR (Non- 56.1 61.8 BUN/Creatinine Ratio 23.2 22.4 Random Glucose 182 mg/dl 187 mg/dl Calcium Level 8.0 mg/dl 8.1 mg/dl Phosphorus Level 1.4 mg/dl 1.8 mg/dl Magnesium Level 1.8 mg/dl 1.8 mg/dl Test 12/07/16 06:59 12/07/16 08:42 Bedside Glucose 148 mg/dl White Blood Count 16.56 K/uL Red Blood Count 3.99 M/uL Hemoglobin 12.8 g/dL Hematocrit 37.7 % Mean Corpuscular Volume 94.5 fL Mean Corpuscular Hemoglobin 32.1 pg Mean Corpuscular Hemoglobin Concent 34.0 g/dl RDW Standard Deviation 45.5 fL RDW Coefficient of Variation 13.0 % Platelet Count 306 K/uL Mean Platelet Volume 9.7 fL Sodium Level 141 mmol/L Potassium Level 3.3 mmol/L Chloride Level 103 mmol/L Carbon Dioxide Level 29 mmol/L Anion Gap 9.0 mmol/L Blood Urea Nitrogen 23 mg/dl Creatinine 0.97 mg/dl Est Creatinine Clear Calc Drug Dose 79.6 ml/min Estimated GFR () 92.6 Estimated GFR (Non- 79.9 BUN/Creatinine Ratio 23.9 Random Glucose 233 mg/dl Calcium Level 8.0 mg/dl Phosphorus Level 2.1 mg/dl Magnesium Level 2.0 mg/dl 25-Hydroxy Vitamin D Total 11.5 ng/ml (Melony Newman ., KAYLA) Assessment and Plan Pt is a 66 yo male with hx of DMII and HTN who presents with progressing dysuria x 3 weeks. Pt came to ER 2 days ago and was given cipro, at that time cx pos for stap with sens pending. Urinary tract infection, failed outpt treatment w/ Cipro: - Admit to tele for cardiac monitoring- no acute events, episodes of sinus tachy at 114, otherwise NSR 80-100s -- Transfer to med/surg on 12/07 - Admitted on Vancomycin and Rocephin, pending UCx - Pyridium 200 mg TID - BCx pending - IVF @ 100 ml/hr - Follow CBC Mild hypokalemia: - IV NSS + KCL supplement - PO 40 mEq KCL on 12/07 - Follow PRP Vitamin D deficiency: - Level of 11.5- begin Vitamin D supplement of 50,000 IU weekly for 6-8 weeks and 1,000 IU daily T2DM w/ HHS- RESOLVED- UNCONTROLLED diabetic management w/ hA1C of 13.1 : - Treated w/ insulin drip- converted to Lantus scale protocol and SSI - Metformin 1000 mg BID held- no PCP, [id number] calls in medication, does not take BSG at home - Diabetic eduction consult and pharmacy consulted for diabetic management Dehydration/MACY- IMPROVING: - Treated w/ IVF - Follow PRP Constipation, +flatus, no bowel obstruction on x-ray: - Continue bowel regimen- MiraLAX and Senna HTN- CONTROLLED: Continue Atenolol 50 mg QAM GI Prophylaxis: Maalox PRN, IV Zofran PRN, MiraLAX, Senna DVT Prophylaxis: Heparin Code Status: LEVEL I, FULL Dispo: Hopeful discharge in the next 1-2 days - No PCP- pediatric social worker consulted (Melony Newman ., KAYLA) I personally examined pt and verified all donaldson points w KAYLA feeling better overall still voiding frequently though discussed A1c and DM control as well as critical importance of lifestyle in DM management ROS otherwise negative except for as above vitals noted nad breathing unlabored sitting in nothing but adult diaper while eating lunch sitting next to sink while sink running. no pallor or icterus UTI - abx - growing gram positives - finally coming back as ott sensitive staph - change to keflex uncontrolled DM / hyperglycemic dehydration - discussed need for actual management, he agrees wtih this and need for PCP. otherwise as above DVT proph - heparin SQ (Rigoberto Cortés D.O.)
--- NOTE | 2016-12-07 11:31 | Pharmacy Progress Note ---
Glycemic Control: Progress Nt Date of Service Dec 07, 2016. Scope Glycemic Pharmacist consulted by Dr Hill on 12/06/16 for glycemic control and to write orders per [facility] inpatient glycemic control protocol. Objective Accuchecks BSG (last 24hrs): Test 12/06/16 13:42 12/06/16 15:12 12/06/16 16:11 12/06/16 16:52 Bedside Glucose 329 mg/dl (70-99) 164 mg/dl (70-99) 101 mg/dl (70-99) Random Glucose 186 mg/dl (70-99) Test 12/06/16 17:47 12/06/16 19:50 12/06/16 20:14 12/06/16 23:50 Bedside Glucose 145 mg/dl (70-99) 178 mg/dl (70-99) Random Glucose 182 mg/dl (70-99) 187 mg/dl (70-99) Test 12/07/16 06:59 12/07/16 08:42 Bedside Glucose 148 mg/dl (70-99) Random Glucose 233 mg/dl (70-99) Laboratory Data (last 24hrs) Test 12/06/16 15:12 12/06/16 19:50 12/06/16 23:50 12/07/16 08:42 Anion Gap 15.0 mmol/L 13.0 mmol/L 12.0 mmol/L 9.0 mmol/L BUN/Creatinine Ratio 20.5 23.2 22.4 23.9 Blood Urea Nitrogen 29 mg/dl 30 mg/dl 27 mg/dl 23 mg/dl Creatinine 1.40 mg/dl 1.30 mg/dl 1.20 mg/dl 0.97 mg/dl Potassium Level 3.0 mmol/L 3.3 mmol/L 3.2 mmol/L 3.3 mmol/L Sodium Level 141 mmol/L 140 mmol/L 141 mmol/L 141 mmol/L White Blood Count 16.56 K/uL HbA1c: Test 12/06/16 10:24 Hemoglobin A1c 13.1 % (4.5-5.6) H Recent Pertinent Medications Outpatient Anti-diabetic Regimen: * Metformin 1 g PO BIDM Risk Factors for Insulin Resistance: * Infection * IVF * Diet Assessment & Plan ASSESSMENT: * 66 yo M presented yesterday with painful urination X 3 weeks and severe hyperglycemia * A1c 13.1% indicative of grossly uncontrolled diabetes as outpatient * Pt was initiated on insulin drip per [facility] protocol and was only on drip for a few hours * BSGs responded quickly to IV fluids/insulin drip and MD wanted to convert to SQ basal/bolus * I am surprised honestly at how well his BSGs responded as I would assume with that A1c he would be very insulin resistant for the entire admission * Overnight pharmacist ordered wt based/stress of 2 which seemed to work but lunch BSG ~218 mg/dL so tighten to stress of 3 * Continue to follow and adjust based on BSG trends PLAN FOR INPATIENT GLYCEMIC CONTROL: * Continue Lantus 8-20 units BID based on BSG * Novolog ACHS + 00,04 * Goal range 110-150 mg/dL * Correction factor: 20 * Carb ratio: 8 * Hold outpatient metformin LOOKING AHEAD TO DISCHARGE: * Recommend CDE to see patient while here * Pt does not check BSGs at home currently * Please note that the plan above was derived based on current level of insulin resistance and hospital stress. These recommendations are appropriate for inpatient admission only. Plan of care upon discharge will need to be reassessed to avoid potential outpatient hypo/hyperglycemia. Thank you.
[2016-12-07] MEDS ORDERED: ERGOCALCIFEROL 50,000 INTER.UNIT CAP PO SCH (12:30)
[2016-12-07] MEDS: CEPHALEXIN MONOHYDRATE 500 MG CAP PO SCH ×2 (17:31→20:23)
[2016-12-07] MEDS ORDERED: SENNA 8.6 MG TAB PO ONE (20:00)
[2016-12-08] MEDS: INSULIN ASPART 100 UNITS/ML 3 ML PEN SC SCH ×4 (04:00→13:50)
[2016-12-08] MEDS: HEPARIN SOD 5000 UNIT/0.5 ML CARP SQ SCH ×2 (05:17→13:50)
[2016-12-08] MEDS: NSS + 20MEQ KCL 1000ML 1,000 ML IV SCH (05:20)
[2016-12-08 07:08] VITALS: BP 166/74; PULSE 95; TEMP 37.1; O2SAT 98
[2016-12-08 07:44] LABS: HEMATOCRIT 37.1 % (42-52); MEAN CELL VOLUME 94.6 fL (80-100); MEAN CORPUSCULAR HEMOGLOBIN 31.9 pg (25-34); MEAN CORPUSCULAR HGB CONC 33.7 g/dl (32-36); MEAN PLATELET VOLUME 9.9 fL (7.4-10.4); PLATELET COUNT 298 K/uL (130-400); RED BLOOD COUNT 3.92 M/uL (4.7-6.1)
[2016-12-08] MEDS ORDERED: CHOLECALCIFEROL 1000 INTER.UNIT TAB PO SCH (08:00)
[2016-12-08] MEDS ORDERED: INSULIN GLARGINE SOLOSTAR 100 UNITS/ML 3 ML PEN SC SCH ×2 (08:00→20:00)
[2016-12-08] MEDS: SENNA 8.6 MG TAB PO SCH (08:00)
[2016-12-08 08:16] LABS: BUN/CREATININE RATIO 24.8 (10-20); CREATININE 0.69 mg/dl (0.60-1.40); POTASSIUM 3.5 mmol/L (3.5-5.1)
[2016-12-08 08:26] LABS: CALCIUM 8.1 mg/dl (8.5-10.1)
[2016-12-08] MEDS: CEPHALEXIN MONOHYDRATE 500 MG CAP PO SCH ×2 (08:30→12:15)
[2016-12-08] MEDS: POLYETHYLENE (MIRALAX) 17 GM PACK PO SCH (08:30)
[2016-12-08] MEDS: INSULIN GLARGINE SOLOSTAR 100 UNITS/ML 3 ML PEN SC SCH (08:34)
[2016-12-08] MEDS: ACETAMINOPHEN 325 MG TAB PO PRN (08:39)
--- NOTE | 2016-12-08 11:14 | Pharmacy Progress Note ---
Glycemic: Assessment & Plan Date of Service Dec 08, 2016. Assessment & Plan 66yo T2DM male with poor outpatient control on oral antidiabetic agent monotherapy. * Recent A1c = 13.1% on 12/06/16 * Goal A1c ~ 7% based on age and comorbidities * Additional agent {s} needed at discharge to achieve this. Ideally insulin is preferred however, pt is not agreeable to insulin at this time. He is agreeable to starting additional oral agents or possibly weekly GLP-1 RA * Additional agent should be chosen based on patient specific factors including efficacy, hypo risk, weight gain/loss, side effects, cost * May consider metformin PLUS: GLP-1 RA: high efficacy, low hypo risk, weight loss, significant GI side effects (titrate low and slow), high cost SGLT-2i: intermediate efficacy, low hypo risk, weight loss, / dehydration side effects, positive cardiac effects, high cost DPP-4i: intermediate efficacy (not efficacious for long-standing DM), low hypo risk, weight neutral, rare side effects (well tolerated), high cost TZD: high efficacy, low hypo risk, weight gain, significant side effects ( edema, HF, fxs), low cost Basal insulin: high efficacy, hypo risk, weight gain, well tolerated, cost dependent on agent chosen (NPH low cost, all others high cost) * RECOMMEND: high efficacy, low hypo risk, and inexpensive agent(s) * TZD --> Actos (Pioglitazone) 15mg PO once daily (Administer at any time of day, with or without meals) OR * DPP-4 --> Januvia (Sitagliptin) 100mg PO daily (Administer at any time of day, with or without meals) OR * GLP1 RA --> extended-release once weekly injection suspension with Bydureon ( Exenatide) 2 mg subcutaneously once every 7 days (once weekly). Administer at any time of day, with or without meals. This may or may not be covered by insurance. Case management to investigate coverage. 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
--- NOTE | 2016-12-08 12:22 | Discharge Instructions ---
Discharge Instructions Date of Service Dec 08, 2016. Admission Reason for Admission: Urinary Tract Infection Discharge Discharge Diagnosis / Problem: Urinary tract infection Discharge Goals Goal(s): Decrease discomfort, Learn about illness, Diagnostic testing, Therapeutic intervention, Prevent Disease Progression Activity Recommendations Activity Limitations: resume your previous activity . Instructions / Follow-Up Instructions / Follow-Up Medications: 1. For high blood pressure: Atenolol 50 mg by mouth once daily [id number] mg by mouth once daily Hydrochlorothiazide 12.5 my by mouth once daily THIS MEDICATION WILL COME IN 25 mg TABLET- BREAK IT IN HALF 2. For diabetes: Metformin 1000 mg by mouth twice per day Januvia 100 mg by mouth once daily 3. For urinary tract infection: Keflex 500 mg by mouth four times per day until prescription is complete This will be a 4 week course of antibiotic therapy- it is important you complete entire course of antibiotics regardless if your symptoms have resolved 4. Vitamin D deficiency: During your stay, your vitamin D level was low. You have been started on Vitamin D supplement of 50,000 IU once weekly on Sundays and 1,000 IU daily 5. Health maintenance: Continue B12 supplement 1000 mcg daily Aspirin 81 mg by mouth once daily During your stay, your hemoglobin A1C (hA1C) was 13.1 This is a blood test that measures your average blood sugars over the course of 2-3 months. Goal hA1C is 6.5 or less; because of your elevated hA1C, this tells us that your sugars are not controlled on Metformin alone. For this, you have been placed on additional medication. It is VERY important you take these medications as prescribed to prevent hyperglycemia (high sugars). Continued uncontrolled diabetes can lead to heart disease, kidney disease, nerve damage, eye damage, vessel damage, and increases your risk for serious infections. It is very important you follow the recommendations you have received during your diabetic education. - You need to take your blood sugars 2-3 times per day and log these numbers. Take this log to your family doctor (PCP) follow-up. This will help your PCP further manage your medications. - We have discussed the use of insulin. At this time, you have declined insulin injections. It is possible in the future you will need insulin. If your urinary symptoms of hesitancy/frequency (feeling like you need to go but only urinate a little) continues, you will need to discuss these symptoms with your PCP. It is possible you could have BPH (benign prostatic hyperplasia) . This commonly occurs in men as they age and results in symptoms such as you have been describing. 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 This is thought to be caused by excessive gallstones. You will need to discuss this finding at your PCP appointment for further evaluation/management. Constipation: You may take MiraLAX daily to help prevent further episodes of constipation. This medication can be bought [id number]. Please take as directed on the bottle. Please follow-up with your PCP appointment as scheduled by our nurse navigator- you have been informed of this important prior to discharge Please follow-up/keep all of your subspecialty appointments Current Hospital Diet Patient's current hospital diet: Diabetes Type 2 Diet Discharge Diet Recommended Diet: Diabetes Type 2 Diet Pending Studies Studies pending at discharge: no Laboratory Results Last 24 Hours Test 12/07/16 16:38 12/07/16 20:12 12/08/16 00:04 12/08/16 03:56 Bedside Glucose 195 mg/dl 161 mg/dl 137 mg/dl 158 mg/dl Test 12/08/16 07:18 12/08/16 07:39 12/08/16 11:20 White Blood Count 13.40 K/uL Red Blood Count 3.92 M/uL Hemoglobin 12.5 g/dL Hematocrit 37.1 % Mean Corpuscular Volume 94.6 fL Mean Corpuscular Hemoglobin 31.9 pg Mean Corpuscular Hemoglobin Concent 33.7 g/dl RDW Standard Deviation 46.3 fL RDW Coefficient of Variation 13.3 % Platelet Count 298 K/uL Mean Platelet Volume 9.9 fL Sodium Level 144 mmol/L Potassium Level 3.5 mmol/L Chloride Level 107 mmol/L Carbon Dioxide Level 26 mmol/L Anion Gap 11.0 mmol/L Blood Urea Nitrogen 17 mg/dl Creatinine 0.69 mg/dl Est Creatinine Clear Calc Drug Dose 112.5 ml/min Estimated GFR () 113.1 Estimated GFR (Non- 97.5 BUN/Creatinine Ratio 24.8 Random Glucose 168 mg/dl Calcium Level 8.1 mg/dl Phosphorus Level 2.0 mg/dl Magnesium Level 2.0 mg/dl Bedside Glucose 165 mg/dl 245 mg/dl Hemoglobin A1c Test 12/06/16 10:24 Range/Units Estimated Average Glucose 329 mg/dl Hemoglobin A1c 13.1 H 4.5-5.6 % Medical Emergencies . Who to Call and When: Medical Emergencies: If at any time you feel your situation is an emergency, please call 911 immediately. . Non-Emergent Contact Non-Emergency issues call your: Primary Care Provider . . "Provider Documentation" section prepared by Melony Newman. . VTE Core Measure Inpt VTE Proph given/why not?: Unfractionated heparin SQ
[2016-12-08] MEDS ORDERED: KFL500 PO (12:29)
[2016-12-08] MEDS ORDERED: CYAN100020 PO (12:29)
[2016-12-08] MEDS ORDERED: ERGO500011 PO (12:29)
[2016-12-08] MEDS ORDERED: CHOL1000 PO (12:29)
[2016-12-08] MEDS ORDERED: LISI-461 PO (12:29)
[2016-12-08] MEDS ORDERED: ATEN50TA8 PO (12:29)
[2016-12-08] MEDS ORDERED: ASPI81TA28 PO (12:29)
[2016-12-08] MEDS ORDERED: HYDR25TA4 PO ×2 (12:29→13:00)
[2016-12-08] MEDS ORDERED: SITA100T3 PO (12:29)
[2016-12-08] MEDS ORDERED: METF-384 PO (12:29)
[2016-12-08 12:43] VITALS: BP 166/74; PULSE 95; TEMP 37.1; O2SAT 98
--- NOTE | 2016-12-08 12:53 | Discharge Summary ---
Discharge Summary Date of Service Dec 08, 2016. (Melony Newman PA-C) Discharge Summary Admission Date: Dec 06, 2016 at 12:40 Discharge Date: Dec 08, 2016 Discharge Disposition: Home Principal Diagnosis: Urinary tract infection Problems/Secondary Diagnoses: Urinary tract infection, failed outpt treatment w/ Cipro Mild hypokalemia Vitamin D deficiency T2DM- UNCONTROLLED HHS Dehydration/MACY Constipation HTN Procedures: CHEST AND ABDOMEN 2 VIEWS HISTORY: no bowel movement for several days COMPARISON: FINDINGS: The lungs are clear. The cardiomediastinal silhouette is within normal limits. There is no pneumoperitoneum or pneumatosis. The bowel gas pattern is unremarkable. No evidence for bowel obstruction. Large amount well-formed stool seen within the proximal colon. Rim calcified structure within the right upper quadrant may represent the gallbladder. Punctate calcifications adjacent to the kidneys favor vascular calcification. Soft tissue density within the midline pelvis. IMPRESSION: 1. No acute process within the chest. 2. No evidence for bowel obstruction. 3. Large amount well-formed stool within the proximal colon. 4. Rim calcified structure within the right upper quadrant which likely represents the gallbladder. 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 Follow-up nonemergent abdominal ultrasound is recommended. 5. Soft tissue density within the midline of the pelvis which favors a distended bladder. Electronically signed by: Wale Cronin M.D. 12/06/2016 11:33 AM Dictated Date/Time: 12/06/2016 11:29 AM The status of this report is Signed. Draft = Not yet reviewed or approved by Radiologist. Signed = Reviewed and approved by Radiologist. 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 (Maryellen Walters MD) Medication Reconciliation New Medications: Lisinopril (Lisinopril) 10 Mg Tab 10 MG PO DAILY for 30 Days, #30 TABS Sitagliptin Phosphate (Januvia) 100 Mg Tab 100 MG PO DAILY for 30 Days, #30 TAB Cephalexin Monohydrate (Cephalexin) 500 Mg Cap 500 MG PO QID for 26 Days, #104 CAP Ergocalciferol (Vitamin D 54311 Unit) 50,000 Unit Cap 56146 INTERUNIT PO Foss@0900 for 30 Days, #4 CAP Changed Medications: Hydrochlorothiazide (Hctz) 25 Mg Tab 25 MG PO QAM for 30 Days, #30 TAB (Medication details modified) Take 12.5 mg by mouth once daily Continued Medications: Aspirin (Aspirin Ec) 81 Mg Tab 81 MG PO DAILY for 30 Days (This prescription has been renewed) Atenolol (Tenormin) 50 Mg Tab 50 MG PO QAM for 30 Days, #30 TAB (This prescription has been renewed) Cholecalciferol (Vitamin D3) 1,000 Unit Tab 1000 INTER.UNIT PO DAILY for 30 Days, #30 TAB 3 Refills (This prescription has been renewed) Cyanocobalamin (Vitamin B12) 1,000 Mcg Tab 1000 MCG PO DAILY for 30 Days, #30 TAB (This prescription has been renewed) Metformin Hcl (Glucophage) 1,000 Mg Tab 1000 MG PO BID for 30 Days, #60 TAB (This prescription has been renewed) Vitamin E (Vitamin E) 100 Unit Tab 100 UNITS PO DAILY Discharge Exam Review of Systems: Constitutional: No fever, No chills, No sweats, No weakness, No fatigue Respiratory: No cough, No shortness of breath, No hemoptysis Cardiovascular: No chest pain, No edema, No palpitations Abdomen: No pain, No nausea, No vomiting, No diarrhea, No constipation Musculoskeletal: No joint pain, No muscle pain, No swelling, No calf pain Genitourinary - Male: + urinary frequency, + urinary hesitancy, No hematuria , No dysuria Neurologic: No weakness, No numbness/tingling Psychiatric: No depression symptoms, No anxiety Hematologic / Lymphatic: No abnormal bleeding/bruising Integumentary: No rash, No itch, No new/changing skin lesions Physical Exam: General Appearance: no apparent distress Eyes: normal inspection, PERRL ENT: hearing grossly normal Neck: supple Respiratory/Chest: lungs clear, no respiratory distress, no accessory muscle use Cardiovascular: regular rate, rhythm Abdomen / GI: normal bowel sounds, non tender, soft Extremities: no calf tenderness, no pedal edema Neurologic/Psychiatric: alert, normal mood/affect, oriented x 3 Skin: normal color, warm/dry, no rash (Melony Newman, KAYLA) Hospital Course HPI at admission: Patient is a 66 yo male with known hx of DMII and HTN who presents to the ER with complaints burning sensation on urination for past 3 weeks. Pt states this was progressively getting worse and noted he had a drink of water that contained sulfur in it that might have caused this." Pt reports coming to ER two days ago and was given cipro at that time. Pain on urination still persisted however. Sensitivities pending but cx pos for staph. In addition pt states nausea but denies fevers, chill, abd pain, shortness of breath, chest pain, flank pain, diarrhea. Regarding his diabetes, pt states he only checks his glucose once a month and reading are generally high in the 200s. He states he has no PCP and that his [id number] prescribes him the metformin and blood pressure medications. Urinary tract infection, failed outpt treatment w/ Cipro: - Admit to tele for cardiac monitoring- no acute events, episodes of sinus tachy at 114, otherwise NSR 80-100s -- Transfer to med/surg on 12/07 - Admitted on Vancomycin and Rocephin -- UCx growing staph aureus- Keflex 500 mg QID x4 weeks of treatment- last day of treatment 01/03 - Pyridium 200 mg TID - BCx- NGTD - Treated w/ IVF @ 100 ml/hr - Followed CBC Continued urinary frequency/hesitancy: - Discussed possibly due to UTI or from BPH- if symptoms do not resolve, patient was instructed to discuss symptoms w/ PCP - Recommend outpatient abdominal US f/u 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: Instructed to discuss w/ PCP for further evaluation/management Mild hypokalemia- RESOLVED: - IV NSS + KCL supplement - PO 40 mEq KCL on 12/07 - Followed PRP Vitamin D deficiency: - Level of 11.5- begin Vitamin D supplement of 50,000 IU weekly (on Sundays) for 6-8 weeks and 1,000 IU daily T2DM w/ HHS- RESOLVED- UNCONTROLLED diabetic management w/ hA1C of 13.1 : - Treated w/ insulin drip- converted to Lantus scale protocol and SSI - Metformin 1000 mg BID held- no PCP, [id number] calls in medication, does not take BSG at home - Diabetic eduction consult and pharmacy consulted for diabetic management -- Patient meet w/ first leveler- voiced no questions/concerns to me about counselling. Set patient up w/ glucose monitor and strips- instructed to log numbers 2-3 times per day - Discussed diabetic management w/ patient and pharmacist. Patient declines insulin at this time. He is to continue Metformin 1000 mg BID w/ B12 supplement and Januvia 100 mg daily was added. Dehydration/MACY- RESOLVED: - Treated w/ IVF - Follow PRP Constipation, +flatus, no bowel obstruction on x-ray- RESOLVED: - Continue bowel regimen- MiraLAX and Senna HTN- CONTROLLED: - Continue Atenolol 50 mg QAM - Added Lisinopril 10 mg daily and decreased HCTZ to 12.5 mg daily GI Prophylaxis: Maalox PRN, IV Zofran PRN, MiraLAX, Senna DVT Prophylaxis: Heparin Code Status: LEVEL I, FULL Dispo: Discharge to home - PCP appointment scheduled on 12/12 - All prescriptions printed for patient Total Time Spent: Greater than 30 minutes This includes examination of the patient, discharge planning, medication reconciliation, and communication with other providers. (Melony Newman ., KAYLA) Discharge Instructions Please refer to the electronic Patient Visit Report (Discharge Instructions) for additional information. (Melony Newman PA-C) Follow-Up Please follow-up with your PCP within 5-7 days Please follow-up/keep all of your subspecialty appointments (Melony Newman, KAYLA) Reviewed: Pt Seen/Exam by Me (Maryellen Walters MD) History Physician Grounds Caretaker Supervision Note: I interviewed and examined the patient. Discussed with SYD Newman and agree with findings and plan as documented in the note. Any exceptions or clarifications are listed here: Pt feeling well. Still with some mild urinary urgency but then does not have any urine come out. He seems committed to better managing his DM. Denies CP or SOB, no abd pain. Is afebrile. Vitals reviewed NAD, thin, AAOx3 RRR no mgr nl S1S2 CTAB no wcr, breathing unlabored Abd +BS, soft NT ND Ext trace pitting edema to mid tibia bilat Skin-dry on legs, no rashes 66 yo male with uncontrolled DMII, HTN, here with UTI and hyperglycemia. -Hyperglycemia improved with insulin, start Januvia on dc and f/u with new PCP for improved control--> will need Ophthalmology referral, statin, routine labs. Started ACEI today and will need microalbumin, foot exam, and updated vaccines if necessary -MACY-resolved with hydration, ok to restart HCTZ at half dose 12.5mg, adding lisinopril for renal protection with DM 10mg daily--> check PRP as outpatient routinely -UTI/Acute prostatitis -treat for 4 weeks with keflex in case of prostatitis to fully penetrate. Consider Urology referral if LUTS persist Documented By: Maryellen Walters (Maryellen Walters MD)
[2016-12-08 13:54] VITALS: Ht 182.9 cm; Wt 79.2 kg
[2016-12-08] MEDS ORDERED: VANCOMYCIN TROUGH SCH (23:30)
== END 2016-12-08 15:42 | disposition home or self-care (01) | DRG 689 ==
LOC: C.EDB 09:29 → C.2T 12:40 → ENRESERV 13:27 → C.MS4W 12-07 11:27 → ENRESERV 12-07 12:09
PROVIDERS: ADMIT Hospitalist; ATTEND Family Medicine
DX: N39.0 Urinary tract infection, site not specified (principal); E13.10 Other specified diabetes mellitus with ketoacidosis without coma; I10 Essential (primary) hypertension; R31.9 Hematuria, unspecified; E86.0 Dehydration; E87.6 Hypokalemia; E55.9 Vitamin D deficiency, unspecified; K59.00 Constipation, unspecified; Z87.891 Personal history of nicotine dependence; Z79.82 Long term (current) use of aspirin; Z79.899 Other long term (current) drug therapy

== ENCOUNTER 2017-02-27 11:49 | Inpatient (IN) | payer BC, OTHER ==
[~2017-02-27] VITALS: Ht 180.3 cm; Wt 71.9 kg
[2017-02-27] VITALS (22 sets, daily range): BP systolic 69–99; BP diastolic 42–57; PULSE 88–102; TEMP 36.4–36.5; O2SAT 88–100; BMI 20.9
[~2017-02-27 11:49] MED LIST changes: -CIPR-255 PO; +CYAN100020 PO; +ERGO1CAP41 PO; +KFL500 PO; +LISI-461 PO; +VITA1TAB12 PO
[2017-02-27] MEDS ORDERED: TAMS0.4C38 PO (12:11)
[2017-02-27] MEDS ORDERED: ACET-1256 PO (12:11)
[2017-02-27] MEDS ORDERED: LISI10TA PO (12:11)
[2017-02-27] MEDS ORDERED: HYDR25TA5 PO (12:11)
[2017-02-27] MEDS ORDERED: ATEN50TA8 PO (12:11)
[2017-02-27] MEDS ORDERED: MELO7.5T5 PO (12:11)
[2017-02-27] MEDS ORDERED: MELO15TA10 PO (12:11)
[2017-02-27] MEDS ORDERED: CHOL100010 PO (12:11)
[2017-02-27] MEDS ORDERED: CYAN10005 PO (12:11)
[2017-02-27] MEDS ORDERED: VTME100 PO (12:11)
[2017-02-27] MEDS ORDERED: ASPI81TA28 PO (12:11)
[2017-02-27] MEDS ORDERED: METF-384 PO (12:11)
[2017-02-27] MEDS ORDERED: SODIUM CHLORIDE 0.9% 1000ML 1,000 ML IV STA ×3 (12:24→22:35)
--- NOTE | 2017-02-27 12:50 | DIAGNOSTIC IMAGING REPORT ---
CHEST ONE VIEW PORTABLE CLINICAL HISTORY: Abdominal pain. COMPARISON STUDY: Chest radiograph and abdominal series December 16, 2016. FINDINGS: Mild elevation of the right hemidiaphragm is new since prior exam. No pneumothorax or pleural effusion is identified. Skin folds project over each hemithorax. There is no evidence of pulmonary edema. Cardiac size is within normal limits. IMPRESSION: 1. No acute cardiopulmonary findings. 2. Mild elevation of the right hemidiaphragm. Electronically signed by: Angelo Miller M.D. 02/27/2017 12:49 PM Dictated Date/Time: 02/27/2017 12:47 PM
[2017-02-27] MEDS ORDERED: INSDGIPEN SC (12:58)
[2017-02-27 13:20] LABS: INR 1.2 (0.9-1.1); PARTIAL THROMBOPLASTIN RATIO 1.2
[2017-02-27 13:33] LABS: BUN/CREATININE RATIO 33.5 (10-20); CALCIUM 8.8 mg/dl (8.5-10.1); CREATININE 3.1 mg/dl (0.60-1.40); POTASSIUM 5.5 mmol/L (3.5-5.1)
[2017-02-27 13:34] LABS: HEMATOCRIT 29.6 % (42-52); MEAN CELL VOLUME 91.6 fL (80-100); MEAN CORPUSCULAR HGB CONC 32.8 g/dl (32-36); RED BLOOD COUNT 3.23 M/uL (4.7-6.1); WHITE BLOOD COUNT 41.77 K/uL (4.8-10.8)
--- NOTE | 2017-02-27 13:35 | EMERGENCY ROOM VISIT NOTE ---
ED Visit Note First contact with patient: 12:08 I have seen and examined this patient with Feliz Millard and generally agree with the treatment plan as discussed. Problem List Medical Problems: (1) Hypertension Status: Chronic Current/Historical Medications Scheduled Acetaminophen (Tylenol), 1,000 MG PO QPM Aspirin (Aspirin Ec), 81 MG PO DAILY Atenolol (Tenormin), 50 MG PO DAILY Cholecalciferol (Vitamin D), 1,000 UNITS PO DAILY Cyanocobalamin (Vitamin B-12), 1,000 MCG PO DAILY Hydrochlorothiazide (Hydrochlorothiazide), 12.5 MG PO DAILY Insulin Glargine (Lantus Solostar), Unknown Dose SC QPM Lisinopril (Prinivil), 10 MG PO DAILY Meloxicam (Mobic), 15 MG PO DAILY Metformin Hcl (Glucophage), 1,000 MG PO BID Tamsulosin Hcl (Flomax), 0.4 MG PO DAILY Tocopheryl Acet,Dl-Alpha (Vitamin E), 100 UNITS PO DAILY Allergies Coded Allergies: No Known Allergies (Unverified , 02/27/17) Vital Signs Date Time Temp Pulse Resp B/P (MAP) Pulse Ox O2 Delivery O2 Flow Rate FiO2 02/27/17 13:07 87 16 98/57 99 Room Air 89 97/55 88 90/46 02/27/17 13:05 89 23 94/56 99 Room Air 02/27/17 12:46 86 94/63 97 Room Air 02/27/17 12:28 84 02/27/17 12:03 36.5 87 16 84/50 100 Room Air Laboratory Results 02/27/17 13:00 Red Blood Count 3.23, Mean Corpuscular Volume 91.6, Mean Corpuscular Hemoglobin 30.0, Mean Corpuscular Hemoglobin Concent 32.8 02/27/17 13:00 Test 02/27/17 13:00 02/27/17 13:03 White Blood Count 41.77 K/uL (4.8-10.8) Red Blood Count 3.23 M/uL (4.7-6.1) Hemoglobin 9.7 g/dL (14.0-18.0) Hematocrit 29.6 % (42-52) Mean Corpuscular Volume 91.6 fL (80-100) Mean Corpuscular Hemoglobin 30.0 pg (25-34) Mean Corpuscular Hemoglobin Concent 32.8 g/dl (32-36) RDW Standard Deviation 50.2 fL (36.4-46.3) RDW Coefficient of Variation 14.8 % (11.5-14.5) Prothrombin Time 13.0 SECONDS (9.0-12.0) Prothromb Time International Ratio 1.2 (0.9-1.1) Activated Partial Thromboplast Time 31.7 SECONDS (21.0-31.0) Partial Thromboplastin Ratio 1.2 Anion Gap 18.0 mmol/L (3-11) Est Creatinine Clear Calc Drug Dose 21.6 ml/min Estimated GFR () 22.6 Estimated GFR (Non- 19.5 BUN/Creatinine Ratio 33.5 (10-20) Calcium Level 8.8 mg/dl (8.5-10.1) Direct Bilirubin 0.1 mg/dl (0-0.2) Alanine Aminotransferase (ALT/SGPT) 19 U/L (12-78) Albumin 1.6 gm/dl (3.4-5.0) Lipase 40 U/L (73-393) Bedside Troponin I 0.200 ng/ml (0-0.045) Medications Administered Medications (Trade) Dose Ordered Sig/Nilda Route Start Time Stop Time Status Last Admin Dose Admin Sodium Chloride 1,000 ml @ 999 mls/hr Q1H1M STAT IV 02/27/17 12:24 02/27/17 13:24 DC 02/27/17 12:24 999 MLS/HR Departure Information Referrals Barb Gray M.D. (PCP) Patient Instructions [facility]
[2017-02-27] MEDS ORDERED: PIPERACILLIN/TAZOBACTAM 4.5 GM/100ML D5W IV STA (13:47)
[2017-02-27] MEDS ORDERED: DAPTOMYCIN IV ONE (14:00)
[2017-02-27] MEDS ORDERED: SODIUM CHLORIDE 0.9% IV ONE (14:00)
[2017-02-27 14:06] LABS: MEAN PLATELET VOLUME 9.4 fL (7.4-10.4); PLATELET COUNT 1016 K/uL (130-400)
[2017-02-27 14:09] LABS: BASO ABS # 0.02 K/uL (0-0.2); COMPLETE YES; DOHLE BODIES 1+; IG% 2.2 %; LYMPH % 3.2 %; LYMPH ABS # 1.33 K/uL (1.2-3.4); MONO % 6.9 %; NEUT % 87.7 %; TOXIC GRANULATION 2+
[2017-02-27] MEDS ORDERED: PANTOprazole INJ 80 MG in DEXTROSE 5% 100ML IV SCH (14:15)
[2017-02-27] MEDS ORDERED: PANTOprazole INJ 40 MG in DEXTROSE 5% 100ML IV SCH (14:30)
[2017-02-27] MEDS ORDERED: POLYETHYLENE (MIRALAX) 17 GM PACK PO PRN (15:30)
[2017-02-27] MEDS ORDERED: ALUMINUM/MAGNESIUM/SIMETH (MAALOX MAX) 30 ML UDC PO PRN (15:30)
[2017-02-27] MEDS ORDERED: ONDANSETRON INJ 2 MG/ML 2 ML VIAL IV PRN (15:30)
[2017-02-27] MEDS ORDERED: MAGNESIUM HYDROXIDE SUSP 30 ML UDC PO PRN (15:30)
[2017-02-27] MEDS ORDERED: SODIUM CHLORIDE 0.9% 1000ML 1,000 ML IV SCH (15:45)
[2017-02-27] MEDS ORDERED: PIPERACILL/TAZOBAC CONSULT ACTIVE PRN (15:45)
[2017-02-27] MEDS ORDERED: VANCOMYCIN CONSULT ACTIVE PRN (15:45)
[2017-02-27] MEDS ORDERED: PIPERACILL/TAZOBAC IV 3.375 GM in DEXTROSE 5% 100ML IV ONE (17:15)
[2017-02-27] MEDS ORDERED: INSULIN ASPART 100 UNITS/ML 3 ML PEN SC SCH ×2 (17:23→21:00)
[2017-02-27] MEDS ORDERED: GLUCAGON FOR INJ 1 MG VIAL SQ PRN (17:30)
[2017-02-27] MEDS ORDERED: GLUCOSE 10 TABS/TUBE PO PRN (17:30)
[2017-02-27] MEDS ORDERED: DEXTROSE 50% 50 ML SYR IV PRN (17:30)
[2017-02-27] MEDS ORDERED: GLUCOSE 40% GEL 15 GM TUBE PO PRN (17:30)
[2017-02-27] MEDS ORDERED: VANCOMYCIN INJ 1,500 MG in SODIUM CHLORIDE 0.9% 500ML 500 ML IV SCH (18:00)
[2017-02-27] MEDS: SODIUM CHLORIDE 0.9% 1000ML 1,000 ML IV SCH (18:02)
[2017-02-27] MEDS: ENOXAPARIN 30 MG/0.3 ML SYR SC SCH (19:44)
--- NOTE | 2017-02-27 19:53 | DIAGNOSTIC IMAGING REPORT ---
(RENAL)RETROPERITON COMP CLINICAL HISTORY: 67 years-old Male presenting with ARF. TECHNIQUE: Real-time grayscale and limited color Doppler ultrasound imaging of the kidneys and bladder was performed. COMPARISON: None. FINDINGS: Right kidney: Normal echogenicity. Right kidney measures 12.5 cm. Moderate pelvocaliectasis. No convincing evidence of calculus or mass. Normal perfusion. Left kidney: Normal echogenicity. Left kidney measures 13.2 cm. Moderate pelvocaliectasis. The left renal collecting system contains echogenic material. The proximal left ureter is also dilated measuring 18 mm in maximal AP dimension. No convincing evidence of calculus or mass. Normal perfusion. Bladder: Distended. Debris noted. Bilateral ureteral jets not visualized. Other: None. IMPRESSION: 1. Suspected moderate bilateral hydronephrosis with left hydroureter. The presence of echogenic debris within the left renal collecting system and bladder raises concern for infection. Pyonephrosis cannot be excluded. Correlate clinically with urinalysis. Further evaluation with CT to be considered as clinically warranted. Electronically signed by: Kj Ruelas M.D. 02/27/2017 7:51 PM Dictated Date/Time: 02/27/2017 7:48 PM
[2017-02-27 20:26] LABS: URINE APPEARANCE TURBID (CLEAR); URINE BILIRUBIN NEG (NEG); URINE COLOR YELLOW; URINE NITRITE NEG (NEG); URINE PH 6.5 (4.5-7.5); URINE SPECIFIC GRAVITY 1.017 (1.000-1.030); UROBILINOGEN NEG (NEG)
[2017-02-27 20:27] LABS: MANUAL MICROSCOPIC REQUIRED? NO; REVIEW REQ? YES
[2017-02-27] MEDS ORDERED: DC ALL PREVIOUSLY ORDERED DIABETES MEDS ONE ×2 (20:30→22:45)
[2017-02-27] MEDS ORDERED: SEVERE STRESS LEVEL ONE ×2 (20:30→22:45)
[2017-02-27] MEDS ORDERED: INSULIN PROTOCOL GOAL RANGE ONE (20:30)
[2017-02-27] MEDS ORDERED: INSULIN IV INFUSION PROTOCOL SCH ×2 (20:37→23:08)
--- NOTE | 2017-02-27 20:45 | History and Physical ---
History & Physical Date of Service Feb 27, 2017. History & Physical admit #[id number]
[2017-02-27] MEDS ORDERED: INSULIN GLARGINE SOLOSTAR 100 UNITS/ML 3 ML PEN SC SCH (21:00)
--- NOTE | 2017-02-27 21:26 | HISTORY & PHYSICAL EXAMINATION ---
DATE OF ADMISSION: 02/27/2017 ADMISSION HISTORY AND PHYSICAL CHIEF COMPLAINT: Weakness. HISTORY OF PRESENT ILLNESS: The patient is a 67-year-old male known to me from a brief time taking care of him during the hospital stay in December whenever he was here with the urinary tract infection and presumed prostatitis. He notes after that time he went home, but he has actually had a lot of prostate issue since, he has had actually urinary incontinence to the point that he is wearing diapers. His PCP recently started him on Flomax and was talking about ongoing medical treatment versus urology referral. He has not seen his PCP since starting the Flomax, but he does note that the Flomax is not really helping (it appears that he wanted to have the patient back in 2 weeks and it is now about a month after that appointment, so it appears the patient did not keep followup for that). At any rate, the last day or so, he has been getting weak, he has been falling over more easily, he is a very difficult historian, so it is hard to exactly get a feel of what is going on. On directed questioning, he relates feeling lightheaded but then on further directed questioning, denies anything of a near syncopal sensation. He has had no loss of consciousness. He does not seem like he is dizzy, he notes basically feeling weak and falling over. Otherwise, he has no acute urinary symptoms, but he does have this chronic urinary hesitancy, weak stream, incontinence, frequency, but he denies necessarily dysuria. He notes having night sweats off and on for the last several months and maybe a 10 pound weight loss but really probably over the last, maybe a year or so, maybe slightly less, but he does not have a lot of concern on the weight loss. He has not had fevers. He has not had rigors. REVIEW OF SYSTEMS: Otherwise negative, as best can be ascertained. PAST MEDICAL HISTORY: Includes BPH with lower urinary tract symptoms and a recent prostatitis, uncontrolled type 2 diabetes with noncompliance, hypertension and vitamin D deficiency. MEDICATIONS: Aspirin 81 mg daily, atenolol 50 mg daily. He had recently been on cephalexin for his UTI, hydrochlorothiazide 12.5 mg daily, Januvia 100 mg daily; Lantus, he believes he was up to 30 units at bedtime; lisinopril 10 mg daily, Mobic 15 mg daily, metformin 1000 mg b.i.d., Flomax 0.4 at bedtime, vitamin B12 1000 mcg daily, vitamin D 50,000 International Units weekly. PAST SURGICAL HISTORY: Tonsillectomy and a tooth extraction. FAMILY HISTORY: There is absolutely none of note. 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 He is single. He is a former smoker. No significant alcohol or drug use. ALLERGIES: No known drug allergies. PHYSICAL EXAMINATION: VITAL SIGNS: Temp 36.5, pulse 87, respiratory rate 16, initial blood pressure 84/50, 100% on room air. GENERAL: He is awake, alert, oriented x3, fatigued appearing, but otherwise in no acute distress. HEENT: Normocephalic, atraumatic. Mucous membranes may be slightly dry. CARDIOVASCULAR: Regular without rubs, murmurs, or gallops, somewhat distant. LUNGS: Clear to auscultation bilaterally. No rales, rhonchi, or wheezes. Good effort. ABDOMEN: Soft. Upper abdomen is nondistended. When pushing in the suprapubic region, there is a large-rounded mass that when palpated makes him feel like he needs to pee presumably an extremely distended bladder. He is wearing a brief, there is actually a little bit of stool on his anterior abdominal skin, at least appears to be stool. EXTREMITIES: Show no cyanosis, clubbing or edema. No calf tenderness. SKIN: Shows no rashes, no pallor or icterus. It is warm and dry. NEUROLOGIC: Shows cranial nerves II-XII to be grossly intact. Gross motor and sensory are intact. MUSCULOSKELETAL: Yields no gross lesions. MENTAL STATE: He is a somewhat difficult historian perseverating on minor details and hard to really get him to answer questions more than very-directed questioning, but this is at least as far as I remember from the last time about his normal conversational style. LABS AND DIAGNOSTICS: CBC shows a white count of 42 with 88% neutrophils, 2+ toxic granulations 1+ Dohle bodies. hemoglobin of 9.7, platelets of 1016. His basic metabolic panel shows sodium 135, potassium 5.5, chloride 100, CO2 17, BUN 104, creatinine 3.1, calcium 8.8, glucose 162. Total bili 0.4 with a direct of 0.1, AST 34, ALT 19, alkaline phosphatase 232, CK total of 272, total protein of 8.1 with an albumin of 1.6, lipase 40. PT of 13, PTT of 31.7, hep C screen is negative. Urinalysis ordered and pending. Chest x-ray shows mild elevation of the right hemidiaphragm, otherwise no acute cardiopulmonary findings and his EKG is sinus without ischemic changes. He does have a nonspecific biphasic T waves in lead III. ASSESSMENT AND PLAN: 1. Weakness. This appears to be due to whatever the illness is causing his leukocytosis and hypotension. Treatment for that likely will improve on the weakness. 2. Leukocytosis. This hopefully is a situation of a severe urinary tract infection with sepsis just with absence of fevers or chills or other more classic infectious symptoms because of urinary retention being the cause more with bacterial overgrowth more than necessarily a classic mechanism. Certainly, with his marked degree of leukocytosis, there is a concern of this potentially being an acute leukemia type of a picture, particularly because he is also newly anemic; however in a reassuring way, he has a significant thrombocytosis which would likely be a phase reactant and given that while he has a relative paucity of symptoms on directed questioning, he does have enough lower urinary tract symptoms making this likely to be sepsis picture with more of a leukemoid type reaction. Because of concerns, we will ask hematology/oncology to see him. Check a CRP, procalcitonin to look for the degree of his inflammatory state and check an LDH, continue to follow. Otherwise, see below. 3. Presumed urinary tract infection with sepsis, this is likely due to benign prostatic hypertrophy with chronic urinary obstruction. He has been started on vancomycin and Zosyn in the Emergency Room, we will continue these. Follow cultures, blood cultures have been ordered and are pending. Urine culture is pending. Clostridium difficile has been sent. Because of the fact that this appears to be due to chronic urinary obstruction, will also ask urology to see him. He is failing Flomax. He is clearly suffering and struggling from his prostate. If this is all a sepsis picture, this will be the second time he has been hospitalized for urinary tract infection in just a few months and likely further interventions may be needed. 4. Hypotension. Either due to septic physiology dehydration or some other physiology related to his leukocytosis. For now, IV fluids and follow. 5. Acute renal failure. More than likely obstructive as above noted, but also quite possibly prerenal or intrinsic renal. Will have to get a Miller catheter placed and I anticipate given his abdominal exam that there is likely a lot of urine in his bladder which would be near confirmatory for obstructive, but certainly if not, then the concern would be further up intrarenal or prerenal. We will follow as above. Also, check a renal ultrasound and urine electrolytes and urinalysis. 6. Metabolic acidosis likely due to the renal failure. 7. Hyperkalemia. Fortunately mild IV fluids, correct the renal failure and follow. 8. Rather significant protein malnutrition. It is unclear if this is an acute drop because of his severity of illness back in December, he was of mild to moderate protein malnutrition, so may be worsened from that. Will certainly need to follow his intake and supplement with protein shakes. 9. Uncontrolled type 2 diabetes. His PCP has been working with him to try to improve control. Looking at progress notes, it appears compliance is an issue, but at least he is at least being actively managed; however complying he may be. His A1c not quite 3 months ago was 13.1, will check again to look for improvement. At this point in time, insulin management obviously with his renal failure would need to hold his orals and follow fingersticks and supplemental insulin. 10. Anemia. It does not really show any significant blood loss. As an outpatient, would need to make sure he is up to date on his colonoscopy, but will also check a retic count and then go from there. 11. Deep venous thrombosis prophylaxis, Lovenox. 12. Hypertension, obviously with his current hypotensive state, will be holding his home meds. 13. DISPOSITION: He will be admitted to telemetry under the [facility]. Consultations from hematology/oncology and urology. ANDERS
[2017-02-27] MEDS ORDERED: ALBUMIN HUMAN 25% 12.5 GM/50 ML VIAL IV STA (21:27)
[2017-02-27] MEDS ORDERED: NOREPINEPHRINE BIT INJ 8 MG in DEXTROSE 5% 500ML 500 ML IV STA (21:30)
[2017-02-27 21:33] LABS: HEMATOCRIT 26.7 % (42-52)
[2017-02-27] MEDS ORDERED: INSULIN REGULAR 250 UNITS in SODIUM CHLORIDE 0.9% 250ML 250 ML IV STA (21:34)
[2017-02-27] MEDS ORDERED: INSULIN HUMAN REGULAR IV BOLUS 2.5 UNIT in SYRINGE 0 ML IV SCH (21:45)
[2017-02-27 22:07] LABS: CALCIUM 7.8 mg/dl (8.5-10.1); CREATININE 3.3 mg/dl (0.60-1.40); POTASSIUM 5.3 mmol/L (3.5-5.1)
[2017-02-27 22:10] LABS: ISTAT ALLEN TEST Pass; ISTAT ARTERIAL BLOOD GAS HCO3 10 meq/L (19-24); ISTAT ARTERIAL BLOOD GAS PCO2 22 mmHg (35-46); ISTAT ARTERIAL BLOOD GAS PO2 97 mmHg (80-95); ISTAT ARTERIAL BLOOD GAS pH 7.26 (7.35-7.45); ISTAT CARBON DIOXIDE 10 mEq/l (24-31); ISTAT DELIVERY SYSTEM Cannula; ISTAT SITE R Radial
[2017-02-27] MEDS ORDERED: INSULIN REGULAR 250 UNITS in SODIUM CHLORIDE 0.9% 250ML 250 ML IV SCH (22:15)
--- NOTE | 2017-02-27 22:17 | EMERGENCY ROOM VISIT NOTE ---
ED Visit Note First contact with patient: 12:08 Chief Complaint: I'm feeling so weak. History of Present Illness: Mr. Patel is a 67-year-old white male who is brought into the ED via ambulance complaining of feeling weak. Historically patient was recently discharged from the hospital in December of this year after failing outpatient antibiotic therapy for urinary tract infection. He reports after being discharge to the hospital he was having urinary incontinence and had a start wearing diapers. His family physician started him on Flomax; he does not feel this is helping very well Patient goes on to report over the last 3-4 days he has been feeling weaker and weaker. He reports multiple times over the last 2 days when he gets out of bed he falls right back into bed and has difficulty getting out of bed because of his weakness and he is also done this once to a chair. He has not fallen on the floor any syncopal episodes and denies any loss of consciousness with these falls. Because of these incidents he reports he has not showered for at least a week and he is not eating because he does not want to walk to the kitchen. He goes on to report he has no family or immediate friends in the area that can assist him with any of his symptoms. Additionally complains that he has noted right before the weakness started he was having bilateral shoulder, hip and knee discomfort that has subsequently resolved. Additionally he reports that intermittently over the last few months he has been having night sweats but has not had this evaluated and he feels like he is losing weight but has not checked his physical weight. He denies fevers, chills, skin eruptions, skin color changes, headache, dizziness, visual changes, hearing changes, difficulty speaking, difficulty swallowing, difficulty coordinating body movements, upper respiratory tract symptoms, cough, wheezing, shortness of breath, palpitations, orthopnea, dependent edema, previous clots, claudication, cramping, chest pain, abdominal pain, nausea, vomiting, diarrhea, constipation, rectal bleeding, black/tarry stools, urinary burning, increased urinary frequency, genital paresthesias, extremity weakness/numbness/tingling, recent travel, recent insect/animal bites. Review of Systems: As noted above in history of present illness. All body systems were reviewed and found to be negative as noted above. Past Medical History: As previously noted (1) Hypertension (2) Sepsis (3) Urinary tract infection Current Medications: Medications Dose Route/Sig Max Daily Dose Days Date Category Lantus Solostar (Insulin Glargine) 100 Unit/Ml Inj Unknown Dose SC QPM 02/27/17 Reported Tylenol (Acetaminophen) 500 Mg Tab 1,000 Mg PO QPM 02/27/17 Reported Mobic (Meloxicam) 15 Mg Tab 15 Mg PO DAILY 02/27/17 Reported Flomax (Tamsulosin Hcl) 0.4 Mg Cap 0.4 Mg PO DAILY 02/27/17 Reported Prinivil (Lisinopril) 10 Mg Tab 10 Mg PO DAILY 02/27/17 Reported Glucophage (Metformin Hcl) 1,000 Mg Tab 1,000 Mg PO BID 02/27/17 Reported Vitamin E (Tocopheryl Acet,Dl-Alpha) 100 Interunit Cap 100 Units PO DAILY 02/27/17 Reported Vitamin B-12 (Cyanocobalamin) 1,000 Mcg Tab 1,000 Mcg PO DAILY 02/27/17 Reported Vitamin D (Cholecalciferol) 1,000 Unit Tab 1,000 Units PO DAILY 02/27/17 Reported Hydrochlorothiazide 25 Mg Tab 12.5 Mg PO DAILY 02/27/17 Reported Tenormin (Atenolol) 50 Mg Tab 50 Mg PO DAILY 02/27/17 Reported Aspirin Ec (Aspirin) 81 Mg Tab 81 Mg PO DAILY 02/27/17 Reported Allergies to Medications: Patient denies. Social History: Patient is currently employed; he lives alone and feels safe in his home environment; he denies tobacco and alcohol use. Physical Examination: Vital Signs: Date Time Temp Pulse Resp B/P (MAP) Pulse Ox O2 Delivery O2 Flow Rate FiO2 02/27/17 14:22 92 16 97/53 97 Room Air 02/27/17 13:07 87 16 98/57 99 Room Air 89 97/55 88 90/46 02/27/17 13:05 89 23 94/56 99 Room Air 02/27/17 12:46 86 94/63 97 Room Air 02/27/17 12:28 84 02/27/17 12:03 36.5 87 16 84/50 100 Room Air GENERAL: 67-year-old female in mild to moderate distress due to symptoms, chronically ill-appearing, afebrile and hypotensive but not tachycardic. NEUROLOGICAL: Awake, alert and oriented to person, place and time. Answering questions appropriately and following commands, but has difficulty giving historical details to today's events. Good hand eye coordination. Cranial nerves II through XII grossly intact. Normal rapid or any movements of the hands and fingers. SKIN: Warm, dry and pale. No skin eruptions but patient does have multiple small soft tissue injuries ranging from nickel sized contusions to superficial abrasions over the lower anterior legs. No signs of infection or active bleeding. HEENT: Atraumatic and normocephalic. PERRLA. Sclera white and conjunctiva pink. No drainage from naris. Lips and oral cavity are dry. Pharynx is nonerythematous or edematous. Speech normal. No lymphadenopathy. Trachea midline. No jugular venous distention. BACK: No tenderness over the bony spine. No CVA tenderness. THORAX: Lungs sounds are clear to auscultation and equal bilaterally with symmetrical chest wall. No wheezing, rales or rhonchi. No crepitus, tenderness , subcutaneous air or deformities noted. HEART: Regular rate and rhythm. No gallops, rubs or murmurs are appreciated. ABDOMEN: Upper abdomen is not distended and lower abdomen is mildly distended and soft. I was not able to elicit any tenderness on palpation. Decreased bowel sounds in all quadrants. No guarding, rigidity or organomegaly. RECTAL: Should be noted patient is wearing a diaper and there is dried so I'll on his abdomen and he is incontinent of feces. Rectal examination was performed and showed no external tags or hemorrhoids. There was stool in the rectal vault but no palpable masses. Stool was brown and was trace guaiac positive. EXTREMITIES: Moves all extremities well on command and with purpose. All distal neurovascular statuses are intact and equal bilaterally. No calf tenderness or cords. ED Course: Patient is assessed as noted above. Patient's medication list was reviewed. Laboratory Testing: Test 02/27/17 00:00 02/27/17 13:00 02/27/17 13:03 Range/Units Urine Color YELLOW Urine Appearance TURBID CLEAR Urine pH 6.5 4.5-7.5 Urine Specific [place] 1.017 1.000-1.030 Urine Protein 1+ NEG Urine Glucose (UA) NEG NEG Urine Ketones NEG NEG Urine Occult Blood 2+ NEG Urine Nitrite NEG NEG Urine Bilirubin NEG NEG Urine Urobilinogen NEG NEG Urine Leukocyte Esterase LARGE NEG Urine WBC (Auto) >30 0-5 /hpf Urine RBC (Auto) >30 0-4 /hpf Urine Hyaline Casts (Auto) 0 0-5 /lpf Urine Epithelial Cells (Auto) 5-10 0-5 /lpf Urine Bacteria (Auto) 3+ NEG Urine Yeast (Auto) PRESENT NONE PRSENT Urine Random Creatinine 100.0 mg/dl Urine Random Sodium 56 mEq/L White Blood Count 41.77 4.8-10.8 K/uL Red Blood Count 3.23 4.7-6.1 M/uL Hemoglobin 9.7 14.0-18.0 g/dL Hematocrit 29.6 42-52 % Mean Corpuscular Volume 91.6 80-100 fL Mean Corpuscular Hemoglobin 30.0 25-34 pg Mean Corpuscular Hemoglobin Concent 32.8 32-36 g/dl Platelet Count 1016 130-400 K/uL Mean Platelet Volume 9.4 7.4-10.4 fL Neutrophils (%) (Auto) 87.7 % Lymphocytes (%) (Auto) 3.2 % Monocytes (%) (Auto) 6.9 % Eosinophils (%) (Auto) 0.0 % Basophils (%) (Auto) 0.0 % Neutrophils # (Auto) 36.61 1.4-6.5 K/uL Lymphocytes # (Auto) 1.33 1.2-3.4 K/uL Monocytes # (Auto) 2.90 0.11-0.59 K/uL Eosinophils # (Auto) 0.01 0-0.5 K/uL Basophils # (Auto) 0.02 0-0.2 K/uL RDW Standard Deviation 50.2 36.4-46.3 fL RDW Coefficient of Variation 14.8 11.5-14.5 % Immature Granulocyte % (Auto) 2.2 % Immature Granulocyte # (Auto) 0.90 0.00-0.02 K/uL Toxic Granulation 2+ Dohle Bodies 1+ Absolute Reticulocyte Count 0.04 0.02-0.10 10^6/uL Percent Reticulocyte Count 1.1 0.5-2.0 % Prothrombin Time 13.0 9.0-12.0 SECONDS Prothromb Time International Ratio 1.2 0.9-1.1 Activated Partial Thromboplast Time 31.7 21.0-31.0 SECONDS Partial Thromboplastin Ratio 1.2 Sodium Level 135 136-145 mmol/L Potassium Level 5.5 3.5-5.1 mmol/L Chloride Level 100 98-107 mmol/L Carbon Dioxide Level 17 21-32 mmol/L Anion Gap 18.0 3-11 mmol/L Blood Urea Nitrogen 104 7-18 mg/dl Creatinine 3.10 0.60-1.40 mg/dl Est Creatinine Clear Calc Drug Dose 21.6 ml/min Estimated GFR () 22.6 Estimated GFR (Non- 19.5 BUN/Creatinine Ratio 33.5 10-20 Random Glucose 162 70-99 mg/dl Calcium Level 8.8 8.5-10.1 mg/dl Total Bilirubin 0.4 0.2-1 mg/dl Direct Bilirubin 0.1 0-0.2 mg/dl Aspartate Amino Transf (AST/SGOT) 34 15-37 U/L Alanine Aminotransferase (ALT/SGPT) 19 12-78 U/L Alkaline Phosphatase 232 45-117 U/L Lactate Dehydrogenase 209 87-241 U/L Total Creatine Kinase 272 39-308 U/L C-Reactive Protein 26.40 0-0.29 mg/dl Total Protein 8.1 6.4-8.2 gm/dl Albumin 1.6 3.4-5.0 gm/dl Lipase 40 73-393 U/L Procalcitonin 13.98 0-0.5 ng/ml Hepatitis C Antibody Screen NEG NEG Bedside Troponin I 0.200 0-0.045 ng/ml Blood Culture: Pending Urine Culture: Pending Chest x-ray: Was read by myself and the radiologist showing no acute infiltrates , effusions or pneumothorax. Normal heart silhouette. Mild elevation of the right hemidiaphragm. Patient was hydrated with normal saline and he received 4.5 g of Zosyn and 400 mg of daptomycin. Additionally patient received a bolus and an IV drip of Protonix. Patient was reassessed multiple times during his stay in the emergency department. Patient's case was reviewed with Dr. Mota; he apparently assessed the patient we agreed on diagnostic approach, treatment, disposition and plan. Patient's case was consulted with case management and Dr. Byers, hospitalist ; for medical admission. Patient was educated about tonight's findings. Clinical Impression: Fatigue. Leukocytosis. Anemia. Hypotension. Metabolic acidosis. Hyperkalemia. Hyponatremia. Decision-Making: Initially my differential diagnosis I considered sepsis, GI bleed, metabolic disorder, acute leukemia and other causes. Disposition and Plan: Patient be brought in the hospital by the hospitalist; please see their notes and orders for final disposition and plan.
--- NOTE | 2017-02-27 22:27 | Procedure Note ---
Procedure Note Procedure Date Feb 27, 2017. Central Line Procedure time out: side/site verified, patient ID confirmed, sterile procedure used Consent obtained: written, verbal Time of procedure: 22:00 Performed by: attending Indications: poor venous access, central drug admin. Prep: chlorhexadine prep, sterile drape, sterile procedures used Anesthesia: lidocaine 1% without epi Volume anesthetic (ml's): 5 Central line lumen: triple Central line location: internal jugular (L) Additional details: percutaneous placement, ultrasound guidance, Selinger technique used, line sutured, good blood return CXR: appropriate position, no pneumothorax Complications: none Patient tolerated procedure: well Post-procedure vital signs: reviewed and stable
[2017-02-27 22:34] LABS: BETA-HYDROXYBUTYRATE 68.84 mg/dL (0.2-2.81)
--- NOTE | 2017-02-27 22:41 | DIAGNOSTIC IMAGING REPORT ---
CHEST ONE VIEW PORTABLE HISTORY: 67 years-old Male central line placement COMPARISON: Portable chest radiograph of same day at 12:31 PM TECHNIQUE: Portable upright AP view of the chest FINDINGS: Cardiac silhouette is upper limits of normal. Mild right hemidiaphragmatic elevation is again noted. There has been interval placement of a left internal jugular central venous catheter with distal tip in the region of the mid SVC. No postprocedural pneumothorax is identified. There is no pleural effusion or focal airspace consolidation. There is atherosclerosis of the aorta. The bones are grossly intact. IMPRESSION: 1. No acute cardiopulmonary process. 2. Status post placement of a left internal jugular central venous catheter with distal tip terminating within the region of the mid SVC. No postprocedural pneumothorax. The above report was generated using voice recognition software. It may contain grammatical, syntax or spelling errors. Electronically signed by: Shmuel Garland M.D. 02/27/2017 10:40 PM Dictated Date/Time: 02/27/2017 10:38 PM
[2017-02-27] MEDS ORDERED: DKA GOAL RANGE 150-250 mg/dl 1 EA ONE (22:45)
--- NOTE | 2017-02-27 22:58 | Pharmacy Progress Note ---
Pharmacy Antibiotic Consult Date of Service: Feb 27, 2017. Pharmacy Dosing Scope Pharmacy is consulted to initiate vancomycin and Zosyn IV dosing therapy, order appropriate labs and adjust drug dose/frequency. Subjective The patient is a 67 year old male admitted on Feb 27, 2017 at 15:33. Recent history of UTI,prostatitis, DM, MACY. Objective Height (Feet): 5 Height (Inches): 11.00 Weight (Kilograms): 68.000 Lab Results (24hrs): Test 02/27/17 00:00 02/27/17 13:00 02/27/17 13:03 02/27/17 16:12 Urine Color YELLOW Urine Appearance TURBID (CLEAR) Urine pH 6.5 (4.5-7.5) Urine Specific [place] 1.017 (1.000-1.030) Urine Protein 1+ (NEG) Urine Glucose (UA) NEG (NEG) Urine Ketones NEG (NEG) Urine Occult Blood 2+ (NEG) Urine Nitrite NEG (NEG) Urine Bilirubin NEG (NEG) Urine Urobilinogen NEG (NEG) Urine Leukocyte Esterase LARGE (NEG) Urine WBC (Auto) >30 /hpf (0-5) Urine RBC (Auto) >30 /hpf (0-4) Urine Hyaline Casts (Auto) 0 /lpf (0-5) Urine Epithelial Cells (Auto) 5-10 /lpf (0-5) Urine Bacteria (Auto) 3+ (NEG) Urine Yeast (Auto) PRESENT (NONE PRSENT) Urine Random Creatinine 100.0 mg/dl Urine Random Sodium 56 mEq/L White Blood Count 41.77 K/uL (4.8-10.8) Red Blood Count 3.23 M/uL (4.7-6.1) Hemoglobin 9.7 g/dL (14.0-18.0) Hematocrit 29.6 % (42-52) Mean Corpuscular Volume 91.6 fL (80-100) Mean Corpuscular Hemoglobin 30.0 pg (25-34) Mean Corpuscular Hemoglobin Concent 32.8 g/dl (32-36) Platelet Count 1016 K/uL (130-400) Mean Platelet Volume 9.4 fL (7.4-10.4) Neutrophils (%) (Auto) 87.7 % Lymphocytes (%) (Auto) 3.2 % Monocytes (%) (Auto) 6.9 % Eosinophils (%) (Auto) 0.0 % Basophils (%) (Auto) 0.0 % Neutrophils # (Auto) 36.61 K/uL (1.4-6.5) Lymphocytes # (Auto) 1.33 K/uL (1.2-3.4) Monocytes # (Auto) 2.90 K/uL (0.11-0.59) Eosinophils # (Auto) 0.01 K/uL (0-0.5) Basophils # (Auto) 0.02 K/uL (0-0.2) RDW Standard Deviation 50.2 fL (36.4-46.3) RDW Coefficient of Variation 14.8 % (11.5-14.5) Immature Granulocyte % (Auto) 2.2 % Immature Granulocyte # (Auto) 0.90 K/uL (0.00-0.02) Toxic Granulation 2+ Dohle Bodies 1+ Absolute Reticulocyte Count 0.04 10^6/uL (0.02-0.10) Percent Reticulocyte Count 1.1 % (0.5-2.0) Prothrombin Time 13.0 SECONDS (9.0-12.0) Prothromb Time International Ratio 1.2 (0.9-1.1) Activated Partial Thromboplast Time 31.7 SECONDS (21.0-31.0) Partial Thromboplastin Ratio 1.2 Sodium Level 135 mmol/L (136-145) Potassium Level 5.5 mmol/L (3.5-5.1) Chloride Level 100 mmol/L (98-107) Carbon Dioxide Level 17 mmol/L (21-32) Anion Gap 18.0 mmol/L (3-11) Blood Urea Nitrogen 104 mg/dl (7-18) Creatinine 3.10 mg/dl (0.60-1.40) Est Creatinine Clear Calc Drug Dose 21.6 ml/min Estimated GFR () 22.6 Estimated GFR (Non- 19.5 BUN/Creatinine Ratio 33.5 (10-20) Random Glucose 162 mg/dl (70-99) Calcium Level 8.8 mg/dl (8.5-10.1) Total Bilirubin 0.4 mg/dl (0.2-1) Direct Bilirubin 0.1 mg/dl (0-0.2) Aspartate Amino Transf (AST/SGOT) 34 U/L (15-37) Alanine Aminotransferase (ALT/SGPT) 19 U/L (12-78) Alkaline Phosphatase 232 U/L (45-117) Lactate Dehydrogenase 209 U/L (87-241) Total Creatine Kinase 272 U/L (39-308) C-Reactive Protein 26.40 mg/dl (0-0.29) Total Protein 8.1 gm/dl (6.4-8.2) Albumin 1.6 gm/dl (3.4-5.0) Lipase 40 U/L (73-393) Procalcitonin 13.98 ng/ml (0-0.5) Hepatitis C Antibody Screen NEG (NEG) Bedside Troponin I 0.200 ng/ml (0-0.045) Bedside Lactic Acid Venous 1.61 mmol/L (0.90-1.70) Test 02/27/17 19:45 02/27/17 21:14 02/27/17 21:15 02/27/17 21:25 Bedside Glucose 340 mg/dl (70-99) 387 mg/dl (70-99) Sodium Level 134 mmol/L (136-145) Potassium Level 5.3 mmol/L (3.5-5.1) Chloride Level 102 mmol/L (98-107) Carbon Dioxide Level 14 mmol/L (21-32) Anion Gap 18.0 mmol/L (3-11) Blood Urea Nitrogen 109 mg/dl (7-18) Creatinine 3.30 mg/dl (0.60-1.40) Est Creatinine Clear Calc Drug Dose 20.3 ml/min Estimated GFR () 20.9 Estimated GFR (Non- 18.1 BUN/Creatinine Ratio 33.0 (10-20) Random Glucose 385 mg/dl (70-99) Calcium Level 7.8 mg/dl (8.5-10.1) Troponin I 0.312 ng/ml (0-0.045) Beta-Hydroxybutyric Acid 68.84 mg/dL (0.2-2.81) Hemoglobin 8.6 g/dL (14.0-18.0) Hematocrit 26.7 % (42-52) Lactic Acid Level 1.8 mmol/L (0.4-2.0) Test 02/27/17 21:58 Blood Gas Sample Site R Radial Bedside Blood Gas pH (LAB) 7.26 (7.35-7.45) Bedside Blood Gas pCO2 (LAB) 22 mmHg (35-46) Bedside Blood Gas pO2 (LAB) 97 mmHg (80-95) Bedside Blood Gas HCO3 (LAB) 10 meq/L (19-24) Bedside Blood Gas Total CO2 10 mEq/l (24-31) Bedside Blood Gas Base Excess (LAB) -18.0 meq/L (-9-1.8) Bedside Blood Gas O2 Saturation 97.0 % (90-95) Enrique Test Pass Oxygen Delivery Device Cannula Micro Results: 02/27 blood x2 pending 02/27 cath urine pending 02/27 stool neg C.Diff Recent Pertinent Medications Item Value Date Time Daptomycin 400 mg/ 58 ml @ 120 mls/hr 02/28/17 1400 Sodium Chloride 1400/IV 02/27/17 1618 Vancomycin HCl 530 ml @ 200 mls/hr 02/27/17 1800 1500 mg/Sodium 1800/IV 02/27/17 1943 Chloride Piperacillin Sod/ 115 ml @ 230 mls/hr 02/27/17 1715 Tazobactam Sod NOW ONCE/IV 02/27/17 1800 3.375 gm/Dextrose Piperacillin Sod/ 115 ml @ 28.75 mls/hr 02/28/17 0000 Tazobactam Sod Q8H/IV 3.375 gm/Dextrose Assessment & Plan Loading dose: vancomycin 1500 mg IV X 1 dose (22 mg/kg) then: due to changing renal function, will redose empirically when random vancomycin is less than 18 mcg/ml. Goal trough level estimate: between 15-20 mcg/mL. Random level has been ordered for: 02/28/17 with am labs. Zosyn 3.375 Gm IV over 30 min,then 3.375 Gm IV (infused over 4 hr) every 8 hr, for CrCl greater than 20 ml/min. Pharmacy will continue to follow and will adjust dose/frequency as necessary. Thank you
[2017-02-27] MEDS ORDERED: ALBUMIN HUMAN 25% 12.5 GM/50 ML VIAL IV ONE (23:00)
[2017-02-27] MEDS: BOOST VANILLA PO SCH ×2 (23:08)
[2017-02-28] VITALS (74 sets, daily range): BP systolic 74–130; BP diastolic 48–88; PULSE 89–114; TEMP 36.4–37.1; O2SAT 92–100
[2017-02-28] MEDS: PIPERACILL/TAZOBAC IV 3.375 GM in DEXTROSE 5% 100ML 100 ML IV SCH ×4 (00:42→23:47)
[2017-02-28 00:47] LABS: HEMATOCRIT 27.5 % (42-52); MEAN CELL VOLUME 93.9 fL (80-100); MEAN PLATELET VOLUME 9.4 fL (7.4-10.4); PLATELET COUNT 997 K/uL (130-400); RED BLOOD COUNT 2.93 M/uL (4.7-6.1); WHITE BLOOD COUNT 46.29 K/uL (4.8-10.8)
[2017-02-28 00:50] LABS: BUN/CREATININE RATIO 30.9 (10-20); CALCIUM 7.7 mg/dl (8.5-10.1); CREATININE 3.4 mg/dl (0.60-1.40); MAGNESIUM 2.1 mg/dl (1.8-2.4); PHOSPHORUS 6.8 mg/dl (2.5-4.9); POTASSIUM 4.9 mmol/L (3.5-5.1)
[2017-02-28 00:56] LABS: ALB/GLOB RATIO 0.4 (0.9-2); PROSTATE SPECIFIC ANTIGEN 0.266 ng/ml (0.000-4.000)
[2017-02-28 01:12] LABS: COMPLETE YES; DOHLE BODIES 1+; ECHINOCYTES 1+; META ABS # 0.42 K/uL (0-0); METAMYELOCYTE % 0.9 %; ROULEAUX 1+
[2017-02-28 01:25] LABS: BETA-HYDROXYBUTYRATE 62.56 mg/dL (0.2-2.81)
--- NOTE | 2017-02-28 01:31 | GENITOURINARY CONSULTATION ---
DATE OF CONSULTATION: 02/27/2017 REASON FOR THE CONSULT: Urosepsis with bilateral hydronephrosis, apparently secondary to acute urinary retention, bladder outlet obstruction. HISTORY OF PRESENTATION: The patient currently is quite confused and a poor historian but he was here in early December with an apparent urinary tract infection at that time. He had normal creatinine and only imaging studies he had was a KUB which did suggest distended bladder at that time. He was given antibiotics and it is not clear whether he followed up, but he began to have incontinence and he was started on Flomax which did not help and he has become incontinent with overflow incontinence and become weaker and weaker. He actually fell several times and it appears that he may have injured his right arm and became increasingly weak. He came in today appearing very sick with hypotension and elevated white blood cell count of 41,000, infected appearing urine with yeast in it and a creatinine of 3.3. Miller catheter was placed in the Emergency Room with 1600 mL of bladder and his urine has now become bloody. This is consistent with long-term obstruction. He denies any history of flank pain. He says he passed a stone possibly 20 years ago, although it is not clear to me about this and on a KUB that was done in December, there does not appear to be any calcifications consistent with stones. He at this point is in the ICU because of hypotension. He is on Levophed and I have suggested that when his blood pressure stabilizes, that a noncontrast CT scan be performed to make sure that there is no evidence of obstruction from extrinsic compression or stones. The patient's past medical history is significant for hypertension. He denies alcohol use or tobacco use. The patient also has a history of diabetes and takes metformin. He was not taking lisinopril as an outpatient, was taking as an inpatient previously. He did smoke in the distant past, was taking previously hydrochlorothiazide, vitamin D3, atenolol and aspirin. PHYSICAL EXAMINATION: GENERAL: The patient appears somewhat confused at this time. He is quite thin, somewhat pale. HEENT: Remarkable for some poor dentition. LUNGS: Appear to be no respiratory distress. He has been somewhat tachycardic and his blood pressure is in the 70s at this point. ABDOMEN: Nontender. He has no flank pain to percussion. EXTREMITIES: Remarkable for his right arm being somewhat red and swollen compared to his left and some tenderness, but it does appear to be moving normally. NEUROLOGIC: He does appear somewhat confused, but is alert and responsive. Again urine is infected. The patient has significant white blood cell count and elevated creatinine. ASSESSMENT: Probable bladder outlet obstruction, ongoing for some time with infection. This could cause severe urosepsis. Again, I cannot rule out some extrinsic compression, but he is not stable enough at this time to have a noncontrast CAT scan. When his blood pressure stabilizes, would do this to exclude any additional cause for ureteral obstruction, although this seems unlikely. At this time, I will also order a PSA. I did not do a digital rectal exam as I did not want to agitate the patient at this time, but will get a PSA and will evaluate his prostate in the future. It is not clear from his history what his voiding habits were prior to December but I do not believe he was having problems with overflow incontinence prior to this. This may be an ongoing problem with regard to BPH. We will continue to follow the patient.
[2017-02-28] MEDS: NOREPINEPHRINE BIT INJ 8 MG in DEXTROSE 5% 500ML 500 ML IV PRN ×2 (02:19→09:00)
[2017-02-28 05:21] LABS: CALCIUM 7.5 mg/dl (8.5-10.1); CREATININE 3.4 mg/dl (0.60-1.40); MAGNESIUM 2.1 mg/dl (1.8-2.4); POTASSIUM 4.8 mmol/L (3.5-5.1)
[2017-02-28 05:36] LABS: ALB/GLOB RATIO 0.4 (0.9-2); BETA-HYDROXYBUTYRATE 19.3 mg/dL (0.2-2.81); PHOSPHORUS 6.5 mg/dl (2.5-4.9)
[2017-02-28 05:48] LABS: HEMATOCRIT 24.7 % (42-52); MEAN CELL VOLUME 91.1 fL (80-100); MEAN PLATELET VOLUME 9.1 fL (7.4-10.4); PLATELET COUNT 942 K/uL (130-400); RED BLOOD COUNT 2.71 M/uL (4.7-6.1); WHITE BLOOD COUNT 38.83 K/uL (4.8-10.8)
[2017-02-28] MEDS: ALBUMIN HUMAN 25% 12.5 GM/50 ML VIAL IV SCH ×3 (05:56→16:54)
[2017-02-28 06:03] LABS: BASO % 0.1 %; BASO ABS # 0.02 K/uL (0-0.2); COMPLETE YES; DOHLE BODIES 1+; EOS % 0.1 %; IG% 1.3 %; LYMPH % 6.2 %; LYMPH ABS # 2.41 K/uL (1.2-3.4); MONO % 1.7 %; NEUT % 90.6 %
--- NOTE | 2017-02-28 08:26 | Progress Note ---
Progress Note Date of Service Feb 28, 2017. Progress Note Summary of events overnight: Initially I was called by RN on 2nd floor to alert that hallman catheter had been placed and 1.6L was drained and his glucose was 340. Discussed this with admitting doctor (Dr Cortés) and decided to put on insulin drip. While scanning the chart around 20:40 I also noted he was becoming tachycardic and hypotensive. 1L NSS bolus ordered with repeat BMP, lactic acid and troponin. I discussed with Dr Cortés. Called by RN that patient was looking worse and BP had decreased, advised to call a code purple and I went down to assess the patient. He was responsive and talking to me - denied chest pain or shortness of breath, capillary refil prolonged 4-5 seconds, pale, appeared mildly confused, . Second NSS 1L ordered to go through separate IV line, instructed to place 18G in left antecubital fossa, call lab to take labs and added H&H and type and screen. Dr Marrero was present to see the patient and instructed CT non contrast A/P when more stable. Dr Francois was informed of events and came to separately examine the patient. Advised to give 25g albumin. Patient was discussed with Dr Haro (ICU) and accepted patient for transfer down to ICU as despite adequate fluid resuscitation he was still struggling to maintain a MAP > 65 - advised to start on levophed (orders placed and pharmacy informed of order by phone). Patient was transferred down to ICU and Dr Villa and Dr Haro took over the majority of his care. pH came back acidotic with an elevated anion gap, elevated beta-hydroxybutyric acid diagnostic of DKA. I called his nephew back (Giovany) who new the password at the request of his sister and discussed his care. In the morning his troponin came back @ 40. Dr Russell informed of this by nursing. EKG ordered - no ischemic changes noted by myself. Echo and cardiology consult ordered. I called his PILI Kline (sister) at the request of the patient to update her on his overall condition. All questions answered. She will be in later today. He requested I do not talk to his nephew.
[2017-02-28] MEDS: INSULIN ASPART 100 UNITS/ML 3 ML PEN SC SCH ×3 (08:37→16:30)
[2017-02-28] MEDS: FAMOTIDINE IV INJ 20 MG in DEXTROSE 5% 100ML 100 ML IV SCH ×2 (08:40→20:15)
[2017-02-28] MEDS: BOOST VANILLA PO SCH ×2 (09:00)
[2017-02-28] MEDS ORDERED: FAMOTIDINE 20MG/102 ML D5W IV SCH (09:00)
[2017-02-28] MEDS: ASPIRIN 81 MG ECTAB PO SCH (09:01)
[2017-02-28] MEDS: CYANOCOBALAMIN 500 MCG TAB (VIT B-12) PO SCH (09:03)
[2017-02-28] MEDS: CHOLECALCIFEROL 1000 INTER.UNIT TAB PO SCH (09:03)
[2017-02-28] MEDS: TAMSULOSIN HCL 0.4 MG CAP PO SCH (09:05)
--- NOTE | 2017-02-28 09:20 | ECHOCARDIOGRAM REPORT ---
*NOTICE TO RECEIVING [employer] This information is strictly Confidential and protected under [place] law. [place] law prohibits you from making any further disclosure of this information unless further disclosure is expressly permitted by the written consent of the person to whom it pertains or is authorized by law. A general authorization for the release of medical or other information is not sufficient for this purpose. Hospital accepts no responsibility if the information is made available to any other person, INCLUDING THE PATIENT. Interpretation Summary * Name: BHUMI GALEAS Study Date: 02/28/2017 07:07 AM BP: 110/54 mmHg * [facility] HR: 93 * : 1950 (M/d/yyyy) Gender: Male Height: 71 in * Age: 67 yrs Ethnicity: CA Weight: 149 lb * Ordering Physician: Donny Toribio * Referring Physician: Self, Referred * Performed By: Starla Myles RDCS * * Reason For Study: AMI * BSA: 1.9 m2 * -- Conclusions -- * The left ventricle is mildly dilated. * Left ventricular systolic function is mild to moderately reduced. * There are regional wall motion abnormalities as specified. * Aortic valve sclerosis mild, without significant aortic valvular stenosis. * There is moderate to severe mitral regurgitation. * There is severe tricuspid regurgitation. * Right ventricular systolic pressure is elevated at 50-60mmHg. Procedure Details * A complete two-dimensional transthoracic echocardiogram was performed (2D, M-mode, Doppler and color flow Doppler). Left Ventricle * The left ventricle is mildly dilated. * There is normal left ventricular wall thickness. * Ejection Fraction = 35-40%. * Left ventricular systolic function is mild to moderately reduced. * There are regional wall motion abnormalities as specified. * Global hypokinesis with akinesis of the mid and basal inferior wall. Right Ventricle * The right ventricle is grossly normal size. * The right ventricular systolic function is normal as assessed by tricuspid annular plane systolic excursion (TAPSE) (normal >1.5 cm). Atria * Borderline left atrial enlargement. * Right atrial size is normal. Mitral Valve * The mitral valve is grossly normal. * There is moderate to severe mitral regurgitation. * The mitral regurgitant jet is eccentrically directed. * The mitral regurgitant jet is posteriorly directed, which is consistent with anterior leaflet pathology. Tricuspid Valve * The tricuspid valve is not well visualized, but is grossly normal. * There is severe tricuspid regurgitation. * Right ventricular systolic pressure is elevated at 50-60mmHg. Aortic Valve * Aortic valve sclerosis mild, without significant aortic valvular stenosis. * Calcification of the right coronary cusp at the coaptation * There is no significant aortic regurgitation. Great Vessels * The aortic root is normal size. Pericardium/Pleural * There is no pericardial effusion. MMode 2D Measurements and Calculations IVSd 0.96 cm IVSs 1.3 cm LVIDd 5.9 cm LVIDs 4.6 cm LVPWd 1.2 cm LVPWs 1.6 cm IVS/LVPW 0.77 FS 22.7 % EDV(Teich) 175.1 ml ESV(Teich) 96.6 ml EF(Teich) 44.8 % EDV(cubed) 208.3 ml ESV(cubed) 96.4 ml EF(cubed) 53.7 % % IVS thick 31.6 % % LVPW thick 29.3 % LV mass(C)d 272.5 grams LV mass(C)dI 146.4 grams/m\S\2 LV mass(C)s 262.9 grams LV mass(C)sI 141.3 grams/m\S\2 SV(Teich) 78.5 ml SI(Teich) 42.2 ml/m\S\2 SV(cubed) 111.9 ml SI(cubed) 60.2 ml/m\S\2 Ao root diam 3.5 cm Ao root area 9.8 cm\S\2 LA dimension 4.0 cm LA/Ao 1.1 LVAd ap4 36.4 cm\S\2 LVLd ap4 8.7 cm EDV(MOD-sp4) 126.7 ml EDV(sp4-el) 129.5 ml LVAs ap4 25.4 cm\S\2 LVLs ap4 7.6 cm ESV(MOD-sp4) 71.2 ml ESV(sp4-el) 72.5 ml EF(MOD-sp4) 43.8 % EF(sp4-el) 44.0 % LVAd ap2 33.7 cm\S\2 LVLd ap2 8.3 cm EDV(MOD-sp2) 113.2 ml EDV(sp2-el) 115.3 ml LVAs ap2 23.9 cm\S\2 LVLs ap2 7.4 cm ESV(MOD-sp2) 68.5 ml ESV(sp2-el) 65.5 ml EF(MOD-sp2) 39.5 % EF(sp2-el) 43.2 % LVLd %diff -4.19 % EDV(MOD-bp) 122.9 ml LVLs %diff -2.77 % ESV(MOD-bp) 71.1 ml EF(MOD-bp) 42.1 % SV(MOD-sp4) 55.5 ml SI(MOD-sp4) 29.8 ml/m\S\2 SV(MOD-sp2) 44.7 ml SI(MOD-sp2) 24.0 ml/m\S\2 SV(MOD-bp) 51.7 ml SI(MOD-bp) 27.8 ml/m\S\2 SV(sp4-el) 57.0 ml SI(sp4-el) 30.6 ml/m\S\2 SV(sp2-el) 49.8 ml SI(sp2-el) 26.8 ml/m\S\2 Doppler Measurements and Calculations MV E max evangelina 84.9 cm/sec MV A max evangelina 72.8 cm/sec MV E/A 1.2 MV dec time 0.14 sec Ao V2 max 100.1 cm/sec Ao max PG 4.0 mmHg Ao max PG (full) 1.6 mmHg LV V1 max PG 2.4 mmHg LV V1 max 77.1 cm/sec TR max evangelina 329.5 cm/sec
--- NOTE | 2017-02-28 09:56 | Cardiology Consultation ---
Cardiology Consultation Date of Consultation: Feb 28, 2017. Requesting Physician: Malu Reason for Consultation: elevated troponin Pt evaluation today including: conversation w/ patient, physical exam, chart review, lab review, review of studies, conversation w/ attending History of Present Illness The patient is a 67-year-old gentleman without a known history of cardiac disease who presented to [facility] with symptoms of weakness , dizziness and urinary incontinence. He had been seen previously for symptoms of urinary incontinence and was in the process of an outpatient evaluation. Based on the progressive nature of his symptoms he was admitted to [facility] and discovered to have bladder distension. Patient underwent cannulation the bladder and developed significant hypotension which required transfer to the intensive care unit in initiation of pressor support. The laboratory evaluation obtained shortly thereafter suggested at myocardial infarction based on elevated cardiac biomarkers. Patient has had some urinary incontinence to the point where he requires adult diapers. He was started on agents for prostatism, but later developed some abdominal distension and was primarily concerned about dizziness and unsteady gait. This also appears to have been accompanied by generalized weakness. He did not describe overt fevers or chills. He has not had symptoms of rirors. In general, he is a very sedentary individual. He does not participate in routine exercise. He does not perform significant strenuous activity. However , he is able to perform routine activity without limiting symptoms of dyspnea or chest discomfort. He denies any symptoms orthopnea or paroxysmal nocturnal dyspnea. He has not noticed any swelling in his lower extremities. He has had some slightly increase in abdominal girth and abdominal distention. He has not noticed any palpitations. He does have some mild dizziness recently and an unsteady gait. During the episode yesterday of significant hypertension he was described by the nursing staff is pale and diaphoretic. However, the patient did not report symptoms during that time. Of note, he is a poor historian. He did not recall much of the events of yesterday. However, he was quite firm and denying any symptoms of chest discomfort around that time. He also denied breathing trouble although as noted by the nursing staff to have some breathing difficulty. He feels this may be related to some positioning issues during his echocardiogram. Family History No pertinent family history No premature coronary disease Social History Smoking Status: Former Smoker History of Alcohol Use: Yes (OCC ) Review of Systems Constitutional: + see HPI Respiratory: + see HPI Cardiac: + see HPI Abdomen: + see HPI Male : + see HPI Neurologic: + see HPI Heme: + see HPI Endo: + see HPI Skin: + see HPI All Other Systems: Reviewed and Negative Allergies Coded Allergies: No Known Allergies (Unverified , 02/27/17) Medications Current Inpatient Medications Medications (Trade) Dose Ordered Sig/Nilda Route Start Time Stop Time Status Last Admin Dose Admin Enoxaparin Sodium (Lovenox Inj) 30 mg Q24H SC 02/27/17 18:00 03/29/17 17:59 02/27/17 19:44 30 MG Acetaminophen (Tylenol Tab) 650 mg Q4H PRN PO 02/27/17 15:30 03/29/17 15:29 Al Hydrox/Mg Hydrox/Simethicone (Maalox Max Susp) 15 ml Q4H PRN PO 02/27/17 15:30 03/29/17 15:29 Magnesium Hydroxide (Milk Of Magnesia Susp) 30 ml Q12H PRN PO 02/27/17 15:30 03/29/17 15:29 Ondansetron HCl (Zofran Inj) 4 mg Q6H PRN IV 02/27/17 15:30 03/29/17 15:29 Polyethylene (Miralax Powder Packet) 17 gm DAILY PRN PO 02/27/17 15:30 03/29/17 15:29 Piperacillin Sod/ Tazobactam Sod 3.375 gm/Dextrose 115 ml @ 28.75 mls/ hr Q8H IV 02/28/17 00:00 03/10/17 00:00 02/28/17 08:59 28.75 MLS/HR Aspirin (Ecotrin Tab) 81 mg DAILY PO 02/28/17 09:00 03/30/17 08:59 02/28/17 09:01 81 MG Cholecalciferol (Vitamin D Tab) 1,000 inter.unit DAILY PO 02/28/17 09:00 03/30/17 08:59 02/28/17 09:03 1,000 INTER.UNIT Cyanocobalamin (Vitamin B-12 Tab) 1,000 mcg DAILY PO 02/28/17 09:00 03/30/17 08:59 02/28/17 09:03 1,000 MCG Tamsulosin HCl (Flomax Cap) 0.4 mg DAILY PO 02/28/17 09:00 03/30/17 08:59 02/28/17 09:05 0.4 MG Vancomycin HCl (Consult) 1 ea UD PRN N/A 02/27/17 15:45 03/29/17 15:44 Piperacillin Sod/ Tazobactam Sod (Consult) 1 ea UD PRN N/A 02/27/17 15:45 03/29/17 15:44 Sodium Chloride 1,000 ml @ 100 mls/hr Q10H IV 02/27/17 17:15 03/29/17 17:14 02/27/17 18:02 100 MLS/HR Glucose (Glucose 40% Gel) 15-30 GRAMS 15 GRAMS... UD PRN PO 02/27/17 17:30 03/29/17 17:29 Glucose (Glucose Chew Tab) 4-8 Tablets 4 Tabl... UD PRN PO 02/27/17 17:30 03/29/17 17:29 Dextrose (Dextrose 50% 50ML Syringe) 25-50ML OF 50% DW IV FOR... UD PRN IV 02/27/17 17:30 03/29/17 17:29 Glucagon (Glucagon Inj) 1 mg UD PRN SQ 02/27/17 17:30 03/29/17 17:29 Enteral Nutritional Formula (Boost) 1 can TID PO 02/27/17 21:00 03/29/17 20:59 Norepinephrine Bitartrate 8 mg/ Dextrose 508 ml @ 0 mls/hr Q0M PRN IV 02/27/17 21:45 03/29/17 21:44 02/28/17 09:00 43.4 MLS/HR Albumin Human (Albumin 25%) 25 gm Q6H IV 02/28/17 05:00 03/03/17 04:59 02/28/17 05:56 25 GM Insulin Aspart (novoLOG ASPART) [facility] 02/28/17 08:00 03/30/17 07:59 Famotidine 20 mg/ Dextrose 102 ml @ 204 mls/hr Q12@0900,2100 IV 02/28/17 09:00 03/30/17 08:59 02/28/17 08:40 204 MLS/HR Insulin Human Regular 250 units/ Sodium Chloride 252.5 ml @ 0 mls/hr DAILY@1130 IV 02/28/17 11:30 03/30/17 11:29 Insulin Human Regular 250 units/ Sodium Chloride 252.5 ml @ 0 mls/hr TODAY@2215 IV 02/27/17 22:15 02/28/17 11:29 02/27/17 23:20 2.6 MLS/HR Enteral Nutritional Formula (Boost Glucose Control) 1 can TID PO 02/28/17 14:00 03/30/17 13:59 UNV Physical Exam Vital Signs Past 12 Hours Date Time Temp Pulse Resp B/P (MAP) Pulse Ox O2 Delivery O2 Flow Rate FiO2 02/28/17 07:30 93 33 110/54 (72) 97 02/28/17 06:00 94 33 99/60 (73) 97 02/28/17 05:46 96 27 93/57 (69) 98 02/28/17 05:31 97 23 92/58 (69) 98 02/28/17 05:15 97 21 97/58 (71) 97 02/28/17 05:00 93 33 87/54 (65) 96 02/28/17 04:46 95 43 91/57 (68) 98 02/28/17 04:30 92 24 91/57 (68) 97 02/28/17 04:15 93 27 86/53 (64) 98 02/28/17 04:11 36.8 93 27 83/53 (63) 98 02/28/17 04:00 98 Nasal Cannula 2.0 02/28/17 03:45 92 23 90/60 (70) 96 02/28/17 03:30 95 23 93/60 (71) 98 02/28/17 03:15 92 31 78/51 (60) 98 02/28/17 03:00 92 21 74/54 (61) 99 02/28/17 02:45 92 23 83/54 (64) 99 02/28/17 02:30 92 29 84/53 (63) 99 02/28/17 02:15 92 26 87/55 (66) 02/28/17 02:00 90 26 84/52 (63) 100 02/28/17 01:45 92 22 88/52 (64) 99 02/28/17 01:30 114 23 99/58 (72) 02/28/17 01:15 93 21 84/51 (62) 99 02/28/17 01:00 94 21 87/53 (64) 98 02/28/17 00:45 95 26 92/55 (67) 99 02/28/17 00:30 94 19 95/57 (70) 98 02/28/17 00:15 96 22 106/58 (74) 100 02/28/17 00:00 36.5 95 25 103/55 (71) 100 Nasal Cannula 2.0 02/27/17 23:59 98 Nasal Cannula 2.0 02/27/17 23:46 93 26 91/56 (68) 98 02/27/17 23:30 91 26 84/51 (62) 97 02/27/17 23:15 92 26 88/57 (67) 88 02/27/17 23:00 90 33 83/51 (62) 95 02/27/17 22:45 90 23 79/51 (60) 97 02/27/17 22:39 88 22 77/47 (57) 95 02/27/17 22:33 90 21 79/49 (59) 97 02/27/17 22:30 90 22 77/47 (57) 95 02/27/17 22:15 88 29 81/47 (58) 97 02/27/17 22:00 92 25 86/52 (63) 97 02/27/17 21:53 91 19 81/49 (60) 02/27/17 21:45 91 25 78/47 (57) 100 The patient is alert and oriented. Mood and affect appeared normal. He answered all questions appropriately. HEENT: Pupils are equal and reactive to light and accommodation. Extraocular movements are intact. The sclerae are anicteric. Neuro: Cranial nerves intact Neck: Patient's neck is supple. He has palpable carotid pulses bilaterally without bruits on auscultation. There is no evidence of jugular venous distention. The thyroid is not enlarged. Lungs: Clear to auscultation bilaterally. He has good air movement without use of accessory muscles. No rales wheezes or rhonchi. Cardiac: Heart demonstrates a regular rate and rhythm. Normal S1 and S2. Holosystolic murmur. Pulses: The patient has palpable radial pulses bilaterally that are equal in intensity Extremities: There was no evidence of hypoperfusion. There is no cyanosis or clubbing. There is no edema. Skin: I did not appreciate any rashes on examination today. Data Laboratory Results: Last 24 Hours Test 02/27/17 13:00 02/27/17 13:03 02/27/17 16:12 02/27/17 19:45 White Blood Count 41.77 K/uL Red Blood Count 3.23 M/uL Hemoglobin 9.7 g/dL Hematocrit 29.6 % Mean Corpuscular Volume 91.6 fL Mean Corpuscular Hemoglobin 30.0 pg Mean Corpuscular Hemoglobin Concent 32.8 g/dl Platelet Count 1016 K/uL Mean Platelet Volume 9.4 fL Neutrophils (%) (Auto) 87.7 % Lymphocytes (%) (Auto) 3.2 % Monocytes (%) (Auto) 6.9 % Eosinophils (%) (Auto) 0.0 % Basophils (%) (Auto) 0.0 % Neutrophils # (Auto) 36.61 K/uL Lymphocytes # (Auto) 1.33 K/uL Monocytes # (Auto) 2.90 K/uL Eosinophils # (Auto) 0.01 K/uL Basophils # (Auto) 0.02 K/uL RDW Standard Deviation 50.2 fL RDW Coefficient of Variation 14.8 % Immature Granulocyte % (Auto) 2.2 % Immature Granulocyte # (Auto) 0.90 K/uL Toxic Granulation 2+ Dohle Bodies 1+ Absolute Reticulocyte Count 0.04 10^6/uL Percent Reticulocyte Count 1.1 % Prothrombin Time 13.0 SECONDS Prothromb Time International Ratio 1.2 Activated Partial Thromboplast Time 31.7 SECONDS Partial Thromboplastin Ratio 1.2 Sodium Level 135 mmol/L Potassium Level 5.5 mmol/L Chloride Level 100 mmol/L Carbon Dioxide Level 17 mmol/L Anion Gap 18.0 mmol/L Blood Urea Nitrogen 104 mg/dl Creatinine 3.10 mg/dl Est Creatinine Clear Calc Drug Dose 21.6 ml/min Estimated GFR () 22.6 Estimated GFR (Non- 19.5 BUN/Creatinine Ratio 33.5 Random Glucose 162 mg/dl Calcium Level 8.8 mg/dl Total Bilirubin 0.4 mg/dl Direct Bilirubin 0.1 mg/dl Aspartate Amino Transf (AST/SGOT) 34 U/L Alanine Aminotransferase (ALT/SGPT) 19 U/L Alkaline Phosphatase 232 U/L Lactate Dehydrogenase 209 U/L Total Creatine Kinase 272 U/L C-Reactive Protein 26.40 mg/dl Total Protein 8.1 gm/dl Albumin 1.6 gm/dl Lipase 40 U/L Procalcitonin 13.98 ng/ml Hepatitis C Antibody Screen NEG Bedside Troponin I 0.200 ng/ml Bedside Lactic Acid Venous 1.61 mmol/L Bedside Glucose 340 mg/dl Test 02/27/17 21:14 02/27/17 21:15 02/27/17 21:25 02/27/17 21:58 Sodium Level 134 mmol/L Potassium Level 5.3 mmol/L Chloride Level 102 mmol/L Carbon Dioxide Level 14 mmol/L Anion Gap 18.0 mmol/L Blood Urea Nitrogen 109 mg/dl Creatinine 3.30 mg/dl Est Creatinine Clear Calc Drug Dose 20.3 ml/min Estimated GFR () 20.9 Estimated GFR (Non- 18.1 BUN/Creatinine Ratio 33.0 Random Glucose 385 mg/dl Calcium Level 7.8 mg/dl Troponin I 0.312 ng/ml Beta-Hydroxybutyric Acid 68.84 mg/dL Hemoglobin 8.6 g/dL Hematocrit 26.7 % Bedside Glucose 387 mg/dl Lactic Acid Level 1.8 mmol/L Blood Gas Sample Site R Radial Bedside Blood Gas pH (LAB) 7.26 Bedside Blood Gas pCO2 (LAB) 22 mmHg Bedside Blood Gas pO2 (LAB) 97 mmHg Bedside Blood Gas HCO3 (LAB) 10 meq/L Bedside Blood Gas Total CO2 10 mEq/l Bedside Blood Gas Base Excess (LAB) -18.0 meq/L Bedside Blood Gas O2 Saturation 97.0 % Enrique Test Pass Oxygen Delivery Device Cannula Test 02/28/17 00:02 02/28/17 00:37 02/28/17 01:48 02/28/17 02:44 White Blood Count 46.29 K/uL Red Blood Count 2.93 M/uL Hemoglobin 8.8 g/dL Hematocrit 27.5 % Mean Corpuscular Volume 93.9 fL Mean Corpuscular Hemoglobin 30.0 pg Mean Corpuscular Hemoglobin Concent 32.0 g/dl Platelet Count 997 K/uL Mean Platelet Volume 9.4 fL RDW Standard Deviation 52.7 fL RDW Coefficient of Variation 15.3 % Neutrophils % (Manual) 93.0 % Lymphocytes % (Manual) 0.0 % Monocytes % (Manual) 6.1 % Metamyelocytes % 0.9 % Neutrophils # (Manual) 43.05 K/uL Total Absolute Neutrophils 43.05 K/uL Total Absolute Lymphocytes 0.00 K/uL Monocytes # (Manual) 2.82 K/uL Metamyelocytes # 0.42 K/uL Dohle Bodies 1+ Echinocytes 1+ Rouleau 1+ Venous Blood pH 7.22 Sodium Level 135 mmol/L Potassium Level 4.9 mmol/L Chloride Level 102 mmol/L Carbon Dioxide Level 15 mmol/L Anion Gap 18.0 mmol/L Blood Urea Nitrogen 105 mg/dl Creatinine 3.40 mg/dl Est Creatinine Clear Calc Drug Dose 19.7 ml/min Estimated GFR () 20.2 Estimated GFR (Non- 17.4 BUN/Creatinine Ratio 30.9 Random Glucose 366 mg/dl Lactic Acid Level 1.5 mmol/L Calcium Level 7.7 mg/dl Ionized Calcium 1.00 mmol/l Phosphorus Level 6.8 mg/dl Magnesium Level 2.1 mg/dl Total Bilirubin 0.7 mg/dl Aspartate Amino Transf (AST/SGOT) 34 U/L Alanine Aminotransferase (ALT/SGPT) 19 U/L Alkaline Phosphatase 239 U/L Troponin I 3.260 ng/ml Total Protein 7.6 gm/dl Albumin 2.2 gm/dl Globulin 5.4 gm/dl Albumin/Globulin Ratio 0.4 Prostate Specific Antigen 0.266 ng/ml Beta-Hydroxybutyric Acid 62.56 mg/dL Bedside Glucose (other) 343 mg/dl 334 mg/dl 327 mg/dl Test 02/28/17 03:33 02/28/17 04:45 02/28/17 04:49 02/28/17 05:59 Bedside Glucose (other) 320 mg/dl 314 mg/dl 303 mg/dl White Blood Count 38.83 K/uL Red Blood Count 2.71 M/uL Hemoglobin 8.4 g/dL Hematocrit 24.7 % Mean Corpuscular Volume 91.1 fL Mean Corpuscular Hemoglobin 31.0 pg Mean Corpuscular Hemoglobin Concent 34.0 g/dl Platelet Count 942 K/uL Mean Platelet Volume 9.1 fL Neutrophils (%) (Auto) 90.6 % Lymphocytes (%) (Auto) 6.2 % Monocytes (%) (Auto) 1.7 % Eosinophils (%) (Auto) 0.1 % Basophils (%) (Auto) 0.1 % Neutrophils # (Auto) 35.19 K/uL Lymphocytes # (Auto) 2.41 K/uL Monocytes # (Auto) 0.66 K/uL Eosinophils # (Auto) 0.05 K/uL Basophils # (Auto) 0.02 K/uL RDW Standard Deviation 51.5 fL RDW Coefficient of Variation 15.2 % Immature Granulocyte % (Auto) 1.3 % Immature Granulocyte # (Auto) 0.50 K/uL Dohle Bodies 1+ Venous Blood pH 7.30 Sodium Level 134 mmol/L Potassium Level 4.8 mmol/L Chloride Level 103 mmol/L Carbon Dioxide Level 17 mmol/L Anion Gap 14.0 mmol/L Blood Urea Nitrogen 105 mg/dl Creatinine 3.40 mg/dl Est Creatinine Clear Calc Drug Dose 19.7 ml/min Estimated GFR () 20.2 Estimated GFR (Non- 17.4 BUN/Creatinine Ratio 31.0 Random Glucose 312 mg/dl Lactic Acid Level 1.7 mmol/L Calcium Level 7.5 mg/dl Ionized Calcium 0.97 mmol/l Phosphorus Level 6.5 mg/dl Magnesium Level 2.1 mg/dl Total Bilirubin 0.8 mg/dl Aspartate Amino Transf (AST/SGOT) 122 U/L Alanine Aminotransferase (ALT/SGPT) 27 U/L Alkaline Phosphatase 383 U/L Troponin I 40.000 ng/ml Total Protein 6.9 gm/dl Albumin 1.9 gm/dl Globulin 5.0 gm/dl Albumin/Globulin Ratio 0.4 Beta-Hydroxybutyric Acid 19.30 mg/dL Test 02/28/17 07:41 02/28/17 09:11 02/28/17 09:28 Bedside Glucose (other) 273 mg/dl 266 mg/dl Imaging: Chest x-ray did not demonstrate any acute cardiopulmonary process. Renal ultrasound suggested hydronephrosis and bladder distension. EKG: Normal sinus rhythm with some nonspecific ST and T-wave changes. Possible old inferior myocardial infarction Telemetry reviewed: Lot of artifact. No a arrhythmias. Assessment & Plan 1. Non ST-elevation myocardial infarction. Patient did have a rather large infarct based on the size of his elevation in troponins. Echocardiogram also suggests hypokinesis of the inferior wall as well as general hypokinesis. While there is the possibility this was related to a plaque rupture event, he did not have symptoms of chest discomfort during this episode. He did have an extended period of hypotension which certainly could have produced the ischemia noted in the setting of fixed coronary disease. I suspect based on his echocardiogram and significant rise in cardiac biomarkers that he does have significant coronary artery disease. In the absence of instability or recurrent symptoms, we can monitor him until an opportunity this available for angiography. He has been continued on aspirin. Ideally he would be on beta- blockade and Dennis inhibition as well, but given his other comorbidities specifically hypotension and acute renal injury, these agents are currently contraindicated. Systemic anticoagulation could also be entertained, but the patient does have evidence of hematuria. Given the likelihood that this is not related to a plaque rupture event, I think further systemic anticoagulation can be safely deferred. I did discuss the procedure of coronary angiography with the patient today and pending other unforeseen circumstances, I would anticipate having this performed on Thursday. 2. LV systolic failure: He is noted to have reduced LV systolic function on his echocardiogram. Once again medical therapy in addition to coronary angiography and possible revascularization are indicated. We are deferring beta -blockade and Dennis inhibition due to the comorbidities listed above. No evidence of pulmonary vascular congestion currently or need for diuresis on basis. 3. Valvular heart disease: Patient does have significant tricuspid regurgitation and an element of mitral regurgitation. 4. Pulmonary hypertension: This may be related to an element of LV dysfunction or possibly primary pulmonary disease. No evidence of pulmonary vascular congestion on exam or x-ray. At this point we will see if medical therapy for his LV dysfunction improves his pulmonary pressures. 5. Hypertension: This is most likely related to distributive shock given what suspected to be a systemic infection. While his overall LV systolic function is reduced, is not catastrophic we low. Did have an element of mild hypotension at the time of admission prior to the intercede CA. He continues to have an element of hypotension could try diuresis in the hopes of improving LV systolic function. This would need to be done cautiously as the competing diagnosis distributive shock which may be volume sensitive. If there is some doubt regarding the etiology of his hypotension the current central line could be switched for a PA catheter to get a more accurate assessment of his pulmonary vascular pressure and surrogate for LV end-diastolic pressures.
--- NOTE | 2017-02-28 10:30 | DIAGNOSTIC IMAGING REPORT ---
RIGHT ELBOW 2 VIEWS CLINICAL HISTORY: 67 years-old Male presenting with injury with fall Right. TECHNIQUE: Frontal and lateral views of the right elbow were obtained. COMPARISON: None. FINDINGS: And intravenous line projects over the antecubital fossa. Normal anatomic alignment. No acute fracture. Minimal degenerative change suggested at the medial and lateral epicondyles of the humerus. No gross soft tissue abnormality. IMPRESSION: No acute osseous injury of the right elbow. Electronically signed by: Kj Ruelas M.D. 02/28/2017 10:29 AM Dictated Date/Time: 02/28/2017 10:27 AM
--- NOTE | 2017-02-28 10:39 | Progress Note ---
Subjective Date of Service: Feb 28, 2017. Subjective Pt evaluation today including: conversation w/ patient, physical exam, chart review, lab review, review of studies, conversation w/ weight loss sales consultant pt may have had an [place] BP stable Problem List Medical Problems: (1) DKA (diabetic ketoacidoses) Status: Acute (2) Urinary tract infection Status: Acute Objective Vital Signs Date Time Temp Pulse Resp B/P (MAP) Pulse Ox O2 Delivery O2 Flow Rate FiO2 02/28/17 08:00 95 Nasal Cannula 2.0 02/28/17 07:30 93 33 110/54 (72) 97 02/28/17 06:00 94 33 99/60 (73) 97 02/28/17 05:46 96 27 93/57 (69) 98 02/28/17 05:31 97 23 92/58 (69) 98 02/28/17 05:15 97 21 97/58 (71) 97 02/28/17 05:00 93 33 87/54 (65) 96 02/28/17 04:46 95 43 91/57 (68) 98 02/28/17 04:30 92 24 91/57 (68) 97 02/28/17 04:15 93 27 86/53 (64) 98 02/28/17 04:11 36.8 93 27 83/53 (63) 98 02/28/17 04:00 98 Nasal Cannula 2.0 02/28/17 03:45 92 23 90/60 (70) 96 02/28/17 03:30 95 23 93/60 (71) 98 02/28/17 03:15 92 31 78/51 (60) 98 02/28/17 03:00 92 21 74/54 (61) 99 02/28/17 02:45 92 23 83/54 (64) 99 02/28/17 02:30 92 29 84/53 (63) 99 02/28/17 02:15 92 26 87/55 (66) 02/28/17 02:00 90 26 84/52 (63) 100 02/28/17 01:45 92 22 88/52 (64) 99 02/28/17 01:30 114 23 99/58 (72) 02/28/17 01:15 93 21 84/51 (62) 99 02/28/17 01:00 94 21 87/53 (64) 98 02/28/17 00:45 95 26 92/55 (67) 99 02/28/17 00:30 94 19 95/57 (70) 98 02/28/17 00:15 96 22 106/58 (74) 100 02/28/17 00:00 36.5 95 25 103/55 (71) 100 Nasal Cannula 2.0 02/27/17 23:59 98 Nasal Cannula 2.0 02/27/17 23:46 93 26 91/56 (68) 98 02/27/17 23:30 91 26 84/51 (62) 97 02/27/17 23:15 92 26 88/57 (67) 88 02/27/17 23:00 90 33 83/51 (62) 95 02/27/17 22:45 90 23 79/51 (60) 97 02/27/17 22:39 88 22 77/47 (57) 95 02/27/17 22:33 90 21 79/49 (59) 97 02/27/17 22:30 90 22 77/47 (57) 95 02/27/17 22:15 88 29 81/47 (58) 97 02/27/17 22:00 92 25 86/52 (63) 97 02/27/17 21:53 91 19 81/49 (60) 02/27/17 21:45 91 25 78/47 (57) 100 02/27/17 21:39 36.4 91 29 69/42 (51) 02/27/17 21:19 78/49 (59) 02/27/17 21:04 93 78/53 (61) 02/27/17 21:00 69/46 (54) 02/27/17 20:48 74/47 (56) 81/51 (61) 02/27/17 20:00 97 Nasal Cannula 2.0 02/27/17 20:00 36.5 102 20 81/51 (61) 100 Nasal Cannula 2.0 02/27/17 19:00 98 Nasal Cannula 2.0 02/27/17 16:32 88 18 90/44 98 02/27/17 16:30 36.5 88 16 99/56 (70) 96 Room Air 02/27/17 15:37 97 Room Air 02/27/17 14:22 92 16 97/53 97 Room Air 02/27/17 13:07 87 16 98/57 99 Room Air 89 97/55 88 90/46 02/27/17 13:05 89 23 94/56 99 Room Air 02/27/17 12:46 86 94/63 97 Room Air 02/27/17 12:28 84 02/27/17 12:03 36.5 87 16 84/50 100 Room Air Laboratory Results Last 24 Hours Test 02/27/17 13:00 02/27/17 13:03 02/27/17 16:12 02/27/17 19:45 White Blood Count 41.77 K/uL Red Blood Count 3.23 M/uL Hemoglobin 9.7 g/dL Hematocrit 29.6 % Mean Corpuscular Volume 91.6 fL Mean Corpuscular Hemoglobin 30.0 pg Mean Corpuscular Hemoglobin Concent 32.8 g/dl Platelet Count 1016 K/uL Mean Platelet Volume 9.4 fL Neutrophils (%) (Auto) 87.7 % Lymphocytes (%) (Auto) 3.2 % Monocytes (%) (Auto) 6.9 % Eosinophils (%) (Auto) 0.0 % Basophils (%) (Auto) 0.0 % Neutrophils # (Auto) 36.61 K/uL Lymphocytes # (Auto) 1.33 K/uL Monocytes # (Auto) 2.90 K/uL Eosinophils # (Auto) 0.01 K/uL Basophils # (Auto) 0.02 K/uL RDW Standard Deviation 50.2 fL RDW Coefficient of Variation 14.8 % Immature Granulocyte % (Auto) 2.2 % Immature Granulocyte # (Auto) 0.90 K/uL Toxic Granulation 2+ Dohle Bodies 1+ Absolute Reticulocyte Count 0.04 10^6/uL Percent Reticulocyte Count 1.1 % Prothrombin Time 13.0 SECONDS Prothromb Time International Ratio 1.2 Activated Partial Thromboplast Time 31.7 SECONDS Partial Thromboplastin Ratio 1.2 Sodium Level 135 mmol/L Potassium Level 5.5 mmol/L Chloride Level 100 mmol/L Carbon Dioxide Level 17 mmol/L Anion Gap 18.0 mmol/L Blood Urea Nitrogen 104 mg/dl Creatinine 3.10 mg/dl Est Creatinine Clear Calc Drug Dose 21.6 ml/min Estimated GFR () 22.6 Estimated GFR (Non- 19.5 BUN/Creatinine Ratio 33.5 Random Glucose 162 mg/dl Calcium Level 8.8 mg/dl Total Bilirubin 0.4 mg/dl Direct Bilirubin 0.1 mg/dl Aspartate Amino Transf (AST/SGOT) 34 U/L Alanine Aminotransferase (ALT/SGPT) 19 U/L Alkaline Phosphatase 232 U/L Lactate Dehydrogenase 209 U/L Total Creatine Kinase 272 U/L C-Reactive Protein 26.40 mg/dl Total Protein 8.1 gm/dl Albumin 1.6 gm/dl Lipase 40 U/L Procalcitonin 13.98 ng/ml Hepatitis C Antibody Screen NEG Bedside Troponin I 0.200 ng/ml Bedside Lactic Acid Venous 1.61 mmol/L Bedside Glucose 340 mg/dl Test 02/27/17 21:14 02/27/17 21:15 02/27/17 21:25 02/27/17 21:58 Sodium Level 134 mmol/L Potassium Level 5.3 mmol/L Chloride Level 102 mmol/L Carbon Dioxide Level 14 mmol/L Anion Gap 18.0 mmol/L Blood Urea Nitrogen 109 mg/dl Creatinine 3.30 mg/dl Est Creatinine Clear Calc Drug Dose 20.3 ml/min Estimated GFR () 20.9 Estimated GFR (Non- 18.1 BUN/Creatinine Ratio 33.0 Random Glucose 385 mg/dl Calcium Level 7.8 mg/dl Troponin I 0.312 ng/ml Beta-Hydroxybutyric Acid 68.84 mg/dL Hemoglobin 8.6 g/dL Hematocrit 26.7 % Bedside Glucose 387 mg/dl Lactic Acid Level 1.8 mmol/L Blood Gas Sample Site R Radial Bedside Blood Gas pH (LAB) 7.26 Bedside Blood Gas pCO2 (LAB) 22 mmHg Bedside Blood Gas pO2 (LAB) 97 mmHg Bedside Blood Gas HCO3 (LAB) 10 meq/L Bedside Blood Gas Total CO2 10 mEq/l Bedside Blood Gas Base Excess (LAB) -18.0 meq/L Bedside Blood Gas O2 Saturation 97.0 % Enrique Test Pass Oxygen Delivery Device Cannula Test 02/28/17 00:02 02/28/17 00:37 02/28/17 01:48 02/28/17 02:44 White Blood Count 46.29 K/uL Red Blood Count 2.93 M/uL Hemoglobin 8.8 g/dL Hematocrit 27.5 % Mean Corpuscular Volume 93.9 fL Mean Corpuscular Hemoglobin 30.0 pg Mean Corpuscular Hemoglobin Concent 32.0 g/dl Platelet Count 997 K/uL Mean Platelet Volume 9.4 fL RDW Standard Deviation 52.7 fL RDW Coefficient of Variation 15.3 % Neutrophils % (Manual) 93.0 % Lymphocytes % (Manual) 0.0 % Monocytes % (Manual) 6.1 % Metamyelocytes % 0.9 % Neutrophils # (Manual) 43.05 K/uL Total Absolute Neutrophils 43.05 K/uL Total Absolute Lymphocytes 0.00 K/uL Monocytes # (Manual) 2.82 K/uL Metamyelocytes # 0.42 K/uL Dohle Bodies 1+ Echinocytes 1+ Rouleau 1+ Venous Blood pH 7.22 Sodium Level 135 mmol/L Potassium Level 4.9 mmol/L Chloride Level 102 mmol/L Carbon Dioxide Level 15 mmol/L Anion Gap 18.0 mmol/L Blood Urea Nitrogen 105 mg/dl Creatinine 3.40 mg/dl Est Creatinine Clear Calc Drug Dose 19.7 ml/min Estimated GFR () 20.2 Estimated GFR (Non- 17.4 BUN/Creatinine Ratio 30.9 Random Glucose 366 mg/dl Lactic Acid Level 1.5 mmol/L Calcium Level 7.7 mg/dl Ionized Calcium 1.00 mmol/l Phosphorus Level 6.8 mg/dl Magnesium Level 2.1 mg/dl Total Bilirubin 0.7 mg/dl Aspartate Amino Transf (AST/SGOT) 34 U/L Alanine Aminotransferase (ALT/SGPT) 19 U/L Alkaline Phosphatase 239 U/L Troponin I 3.260 ng/ml Total Protein 7.6 gm/dl Albumin 2.2 gm/dl Globulin 5.4 gm/dl Albumin/Globulin Ratio 0.4 Prostate Specific Antigen 0.266 ng/ml Beta-Hydroxybutyric Acid 62.56 mg/dL Bedside Glucose (other) 343 mg/dl 334 mg/dl 327 mg/dl Test 02/28/17 03:33 02/28/17 04:45 02/28/17 04:49 02/28/17 05:59 Bedside Glucose (other) 320 mg/dl 314 mg/dl 303 mg/dl White Blood Count 38.83 K/uL Red Blood Count 2.71 M/uL Hemoglobin 8.4 g/dL Hematocrit 24.7 % Mean Corpuscular Volume 91.1 fL Mean Corpuscular Hemoglobin 31.0 pg Mean Corpuscular Hemoglobin Concent 34.0 g/dl Platelet Count 942 K/uL Mean Platelet Volume 9.1 fL Neutrophils (%) (Auto) 90.6 % Lymphocytes (%) (Auto) 6.2 % Monocytes (%) (Auto) 1.7 % Eosinophils (%) (Auto) 0.1 % Basophils (%) (Auto) 0.1 % Neutrophils # (Auto) 35.19 K/uL Lymphocytes # (Auto) 2.41 K/uL Monocytes # (Auto) 0.66 K/uL Eosinophils # (Auto) 0.05 K/uL Basophils # (Auto) 0.02 K/uL RDW Standard Deviation 51.5 fL RDW Coefficient of Variation 15.2 % Immature Granulocyte % (Auto) 1.3 % Immature Granulocyte # (Auto) 0.50 K/uL Dohle Bodies 1+ Venous Blood pH 7.30 Sodium Level 134 mmol/L Potassium Level 4.8 mmol/L Chloride Level 103 mmol/L Carbon Dioxide Level 17 mmol/L Anion Gap 14.0 mmol/L Blood Urea Nitrogen 105 mg/dl Creatinine 3.40 mg/dl Est Creatinine Clear Calc Drug Dose 19.7 ml/min Estimated GFR () 20.2 Estimated GFR (Non- 17.4 BUN/Creatinine Ratio 31.0 Random Glucose 312 mg/dl Lactic Acid Level 1.7 mmol/L Calcium Level 7.5 mg/dl Ionized Calcium 0.97 mmol/l Phosphorus Level 6.5 mg/dl Magnesium Level 2.1 mg/dl Total Bilirubin 0.8 mg/dl Aspartate Amino Transf (AST/SGOT) 122 U/L Alanine Aminotransferase (ALT/SGPT) 27 U/L Alkaline Phosphatase 383 U/L Troponin I 40.000 ng/ml Total Protein 6.9 gm/dl Albumin 1.9 gm/dl Globulin 5.0 gm/dl Albumin/Globulin Ratio 0.4 Beta-Hydroxybutyric Acid 19.30 mg/dL Test 02/28/17 07:41 02/28/17 09:11 02/28/17 09:28 Bedside Glucose (other) 273 mg/dl 266 mg/dl Random Vancomycin Level 14.4 mcg/ml Assessment and Plan pt is improved but critically ill Discussed with can capper that he most likely is septic from bladder outlet obstruction causing hydronephrosis and infection but I recommended non contrast ct when he is stable to r/o ureteral obstruction
--- NOTE | 2017-02-28 10:52 | ONCOLOGY CONSULTATION ---
DATE OF CONSULTATION: 02/28/2017 REASON FOR CONSULTATION: Leukocytosis with associated thrombocytosis. HISTORY OF PRESENT ILLNESS: Mr. Acosta is a 67-year-old gentleman who was admitted to [facility] on 02/27/2017 with frequent falls, generalized malaise and weakness. He presented to the Emergency Room and at that time, was hypotensive. He was started on vasopressors and was sent to the ICU. All previous clinical documentation points to urinary issues resulting in hospitalization back in December including urinary tract infection. Over the last 24-48 hours, he had developed progressive weakness and apparently had been falling at home. Mr. Acosta is not the best informant and very little additional helpful information was given. On admission, the patient underwent a chest x-ray, which did not reveal an active pneumonic process. Clearly, his peripheral blood counts and serum chemistries are markedly abnormal including elevated liver transaminases, troponin, and alkaline phosphatase as well as a significantly increased creatinine. Peripheral blood counts on admission revealed a WBC count of 46,290, hemoglobin 8.8 and a platelet count of 997,000. Examination of white cell differential reveals predominant neutrophilia with no evidence of immaturity. Blood and urine cultures have been drawn and results are pending at this time. The patient has been placed on broad spectrum antibiotics. Ultrasound of the kidneys revealed bilateral hydronephrosis, left worse than right. PAST MEDICAL HISTORY: Significant for benign prostatic hypertrophy, prostatitis, uncontrolled diabetes mellitus, hypertension, and vitamin D deficiency. PAST SURGICAL HISTORY: Tonsillectomy and tooth extraction. MEDICATIONS: Prior to admission include, 1. Aspirin 81 mg p.o. q. daily. 2. Atenolol 50 mg p.o. q. daily. 3. He recently completed a course of cephalexin for urinary tract infection. 4. Hydrochlorothiazide 12.5 mg p.o. q. daily. 5. Januvia 100 mg p.o. q. daily. 6. Lantus 30 units subQ at bedtime. 7. Lisinopril 10 mg p.o. q. daily. 8. Mobic 15 mg p.o. q. daily. 9. Metformin 1000 mg p.o. b.i.d. 10. Flomax 0.4 mg p.o. at bedtime. 11. Vitamin B12 at 1000 mcg p.o. q. daily. 12. Vitamin D 50,000 international units weekly. FAMILY HISTORY: Noncontributory. 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 REVIEW OF SYSTEMS: Difficult to ascertain, but from a bit of information, I can extract from Chava himself. He denies fevers, chills or sweats. No anorexia or weight loss. SKIN: No rashes or lesions. No history of dermatoses. HEENT: He denies headaches. Positive for occasional lightheadedness over the past 24 hours. No visual or hearing deficits. No sinus symptoms, sore throat or dysphagia presently. LYMPHATICS: No history of lymphoproliferative disease or peripheral lymphadenopathy. CARDIAC: Negative for coronary artery disease. No angina or palpitations. Positive for elevated troponin. PULMONARY: Negative for COPD. No shortness of breath, dyspnea or orthopnea. No cough or hemoptysis. GASTROINTESTINAL: Negative for abdominal pain, nausea, vomiting, diarrhea or constipation, hematochezia or melenic stools. GENITOURINARY: Positive for dysuria, history of BPH and hydronephrosis as seen on ultrasound. NEUROLOGIC: Negative for seizure, stroke, or migraine headache. HEMATOLOGIC: Positive for leukocytosis and thrombocytosis. MUSCULOSKELETAL: No muscle weakness or skeletal pain presently. PHYSICAL EXAMINATION: GENERAL: Pleasant 67-year-old gentleman in no acute distress. VITAL SIGNS: Temperature afebrile, pulse 93, respirations 33, and blood pressure 110/54. SKIN: Warm, dry, and noncyanotic without petechia, rash or ecchymosis. HEENT: Head: Atraumatic and normocephalic. Eyes: PERRLA, EOMI. Sclerae nonicteric. No conjunctival injection. Nares are patent without rhinorrhea or discharge. Throat is clear. Tongue is midline. Mucous membranes are moist. NECK: Supple without JVD or thyromegaly. LYMPHATICS: No cervical, supraclavicular, or axillary palpable nodes. HEART: Regular rate and rhythm. No clicks, rubs, murmurs, or gallops. LUNGS: Clear to auscultation bilaterally. ABDOMEN: Soft, nontender, and nondistended. Bowel sounds are active. No rigidity or guarding. EXTREMITIES: Musculoskeletal strength is equal. His pulses are bilateral. No clubbing, cyanosis or edema. NEUROLOGICAL: He is awake, alert and oriented. No focality to the examination. LABORATORY DATA: WBC count 38,830, hemoglobin 8.4, platelet count 942,000. Absolute neutrophil count 35,190. Chemistries on admission, sodium 134, potassium 4.8, chloride 103, carbon dioxide 17, BUN 105, creatinine 3.40, and glucose is 387. Hemoglobin A1c is 13.1. AST 122. Troponin 40. Alkaline phosphatase 383. IMPRESSION: 1. Probable septicemia. 2. History of urinary tract infection and benign prostatic hypertrophy. 3. Leukocytosis/leukemoid reaction. 4. Reactive thrombocytosis. 5. Normocytic normochromic anemia. 6. Acute renal injury. 7. Uncontrolled diabetes mellitus. PLAN: I have been asked to evaluate Mr. Acosta on behalf of the hospitalist because of the above hematologic issues. Clearly, he presents with signs and symptoms suggestive of underlying septicemia. Blood and urine cultures are pending at this time and I agree with broad-spectrum antimicrobials and vasopressors to support his blood pressure. I suspect his hematologic issues are reactive. Reactive thrombocytosis in particular can result from infection, but also iron deficiency. He reports no rectal or genitourinary bleeding at this time. I do not feel there is any evidence for emerging hematologic malignancy or lymphoproliferative process. We will recommend observational stance at this time. Monitor his peripheral counts daily. I suspect his anemia is multifactorial to include chronic disease and renal insufficiency. I would check iron studies during admission. We will continue to follow him periodically during his hospital stay. I have nothing further to add. Thank you very much for allowing me to participate in the care of this very pleasant gentleman. If you have any questions or concerns, feel free to contact me at any time. ANDERS
--- NOTE | 2017-02-28 11:27 | Family Medicine Progress Note ---
Progress Note Date of Service Feb 28, 2017. Subjective Pt evaluation today including: conversation w/ patient, physical exam, chart review, lab review, review of studies -Mr. Patel was alert today, but appeared anxious. -Pt remarks he has been falling lately, due to weakness. Says he fell yesterday 4 times. Unsure if he hit his head. -Pt denies chest pain, abdominal pain or SOB -He did express some right elbow pain. Constitutional: No fever, No chills, No sweats Respiratory: No cough, No sputum, No shortness of breath, No dyspnea on exertion Cardiovascular: No chest pain, No orthopnea, No edema Abdomen: No pain, No nausea, No vomiting, No diarrhea, No constipation Musculoskeletal: + joint pain (right elbow) Medications Current Inpatient Medications Medications (Trade) Dose Ordered Sig/Nilda Route Start Time Stop Time Status Last Admin Dose Admin Enoxaparin Sodium (Lovenox Inj) 30 mg Q24H SC 02/27/17 18:00 03/29/17 17:59 02/27/17 19:44 30 MG Acetaminophen (Tylenol Tab) 650 mg Q4H PRN PO 02/27/17 15:30 03/29/17 15:29 Al Hydrox/Mg Hydrox/Simethicone (Maalox Max Susp) 15 ml Q4H PRN PO 02/27/17 15:30 03/29/17 15:29 Magnesium Hydroxide (Milk Of Magnesia Susp) 30 ml Q12H PRN PO 02/27/17 15:30 03/29/17 15:29 Ondansetron HCl (Zofran Inj) 4 mg Q6H PRN IV 02/27/17 15:30 03/29/17 15:29 Polyethylene (Miralax Powder Packet) 17 gm DAILY PRN PO 02/27/17 15:30 03/29/17 15:29 Piperacillin Sod/ Tazobactam Sod 3.375 gm/Dextrose 115 ml @ 28.75 mls/ hr Q8H IV 02/28/17 00:00 03/10/17 00:00 02/28/17 08:59 28.75 MLS/HR Aspirin (Ecotrin Tab) 81 mg DAILY PO 02/28/17 09:00 03/30/17 08:59 02/28/17 09:01 81 MG Cholecalciferol (Vitamin D Tab) 1,000 inter.unit DAILY PO 02/28/17 09:00 03/30/17 08:59 02/28/17 09:03 1,000 INTER.UNIT Cyanocobalamin (Vitamin B-12 Tab) 1,000 mcg DAILY PO 02/28/17 09:00 03/30/17 08:59 02/28/17 09:03 1,000 MCG Tamsulosin HCl (Flomax Cap) 0.4 mg DAILY PO 02/28/17 09:00 03/30/17 08:59 02/28/17 09:05 0.4 MG Vancomycin HCl (Consult) 1 ea UD PRN N/A 02/27/17 15:45 03/29/17 15:44 Piperacillin Sod/ Tazobactam Sod (Consult) 1 ea UD PRN N/A 02/27/17 15:45 03/29/17 15:44 Sodium Chloride 1,000 ml @ 100 mls/hr Q10H IV 02/27/17 17:15 03/29/17 17:14 02/27/17 18:02 100 MLS/HR Glucose (Glucose 40% Gel) 15-30 GRAMS 15 GRAMS... UD PRN PO 02/27/17 17:30 03/29/17 17:29 Glucose (Glucose Chew Tab) 4-8 Tablets 4 Tabl... UD PRN PO 02/27/17 17:30 03/29/17 17:29 Dextrose (Dextrose 50% 50ML Syringe) 25-50ML OF 50% DW IV FOR... UD PRN IV 02/27/17 17:30 03/29/17 17:29 Glucagon (Glucagon Inj) 1 mg UD PRN SQ 02/27/17 17:30 03/29/17 17:29 Norepinephrine Bitartrate 8 mg/ Dextrose 508 ml @ 0 mls/hr Q0M PRN IV 02/27/17 21:45 03/29/17 21:44 02/28/17 09:00 43.4 MLS/HR Albumin Human (Albumin 25%) 25 gm Q6H IV 02/28/17 05:00 03/03/17 04:59 02/28/17 05:56 25 GM Insulin Aspart (novoLOG ASPART) SLIDING SCALE PCHS DE 02/28/17 08:00 03/30/17 07:59 Famotidine 20 mg/ Dextrose 102 ml @ 204 mls/hr Q12@0900,2100 IV 02/28/17 09:00 03/30/17 08:59 02/28/17 08:40 204 MLS/HR Insulin Human Regular 250 units/ Sodium Chloride 252.5 ml @ 0 mls/hr DAILY@1130 IV 02/28/17 11:30 03/30/17 11:29 Insulin Human Regular 250 units/ Sodium Chloride 252.5 ml @ 0 mls/hr TODAY@2215 IV 02/27/17 22:15 02/28/17 11:29 02/27/17 23:20 2.6 MLS/HR Enteral Nutritional Formula (Boost Glucose Control) 1 can TID PO 02/28/17 14:00 03/30/17 13:59 Objective Vital Signs Date Time Temp Pulse Resp B/P (MAP) Pulse Ox O2 Delivery O2 Flow Rate FiO2 02/28/17 11:04 101 25 112/64 (80) 96 02/28/17 10:30 101 25 119/75 (90) 96 02/28/17 10:15 102 23 117/66 (83) 97 02/28/17 10:00 99 21 120/67 (84) 95 02/28/17 09:45 95 21 114/64 (81) 96 02/28/17 09:30 113 32 125/77 (93) 94 02/28/17 09:16 114 33 129/74 (92) 97 02/28/17 09:15 112 27 97 02/28/17 09:01 93 26 96/55 (69) 97 02/28/17 09:00 36.6 92 23 98 02/28/17 08:45 92 19 112/65 (81) 97 02/28/17 08:30 92 27 111/65 (80) 98 02/28/17 08:16 93 22 92/57 (69) 96 02/28/17 08:15 93 22 97 02/28/17 08:00 36.8 92 22 109/64 (79) 96 02/28/17 08:00 95 Nasal Cannula 2.0 02/28/17 07:46 93 30 110/64 (79) 98 02/28/17 07:45 94 25 98 02/28/17 07:30 93 33 110/54 (72) 97 02/28/17 06:00 94 33 99/60 (73) 97 02/28/17 05:46 96 27 93/57 (69) 98 02/28/17 05:31 97 23 92/58 (69) 98 02/28/17 05:15 97 21 97/58 (71) 97 02/28/17 05:00 93 33 87/54 (65) 96 02/28/17 04:46 95 43 91/57 (68) 98 02/28/17 04:30 92 24 91/57 (68) 97 02/28/17 04:15 93 27 86/53 (64) 98 02/28/17 04:11 36.8 93 27 83/53 (63) 98 02/28/17 04:00 98 Nasal Cannula 2.0 02/28/17 03:45 92 23 90/60 (70) 96 02/28/17 03:30 95 23 93/60 (71) 98 02/28/17 03:15 92 31 78/51 (60) 98 02/28/17 03:00 92 21 74/54 (61) 99 02/28/17 02:45 92 23 83/54 (64) 99 02/28/17 02:30 92 29 84/53 (63) 99 02/28/17 02:15 92 26 87/55 (66) 02/28/17 02:00 90 26 84/52 (63) 100 02/28/17 01:45 92 22 88/52 (64) 99 02/28/17 01:30 114 23 99/58 (72) 02/28/17 01:15 93 21 84/51 (62) 99 02/28/17 01:00 94 21 87/53 (64) 98 02/28/17 00:45 95 26 92/55 (67) 99 02/28/17 00:30 94 19 95/57 (70) 98 02/28/17 00:15 96 22 106/58 (74) 100 02/28/17 00:00 36.5 95 25 103/55 (71) 100 Nasal Cannula 2.0 02/27/17 23:59 98 Nasal Cannula 2.0 02/27/17 23:46 93 26 91/56 (68) 98 02/27/17 23:30 91 26 84/51 (62) 97 02/27/17 23:15 92 26 88/57 (67) 88 02/27/17 23:00 90 33 83/51 (62) 95 02/27/17 22:45 90 23 79/51 (60) 97 02/27/17 22:39 88 22 77/47 (57) 95 02/27/17 22:33 90 21 79/49 (59) 97 02/27/17 22:30 90 22 77/47 (57) 95 02/27/17 22:15 88 29 81/47 (58) 97 02/27/17 22:00 92 25 86/52 (63) 97 02/27/17 21:53 91 19 81/49 (60) 02/27/17 21:45 91 25 78/47 (57) 100 02/27/17 21:39 36.4 91 29 69/42 (51) 02/27/17 21:19 78/49 (59) 02/27/17 21:04 93 78/53 (61) 02/27/17 21:00 69/46 (54) 02/27/17 20:48 74/47 (56) 81/51 (61) 02/27/17 20:00 97 Nasal Cannula 2.0 02/27/17 20:00 36.5 102 20 81/51 (61) 100 Nasal Cannula 2.0 02/27/17 19:00 98 Nasal Cannula 2.0 02/27/17 16:32 88 18 90/44 98 02/27/17 16:30 36.5 88 16 99/56 (70) 96 Room Air 02/27/17 15:37 97 Room Air 02/27/17 14:22 92 16 97/53 97 Room Air 02/27/17 13:07 87 16 98/57 99 Room Air 89 97/55 88 90/46 02/27/17 13:05 89 23 94/56 99 Room Air 02/27/17 12:46 86 94/63 97 Room Air 02/27/17 12:28 84 02/27/17 12:03 36.5 87 16 84/50 100 Room Air Physical Exam General Appearance: WD/WN, + mild distress Eyes: normal inspection, sclerae normal Neck: supple, no adenopathy Respiratory/Chest: chest non-tender, lungs clear, normal breath sounds, no respiratory distress, no accessory muscle use Cardiovascular: regular rate, rhythm, no edema, no gallop, no JVD, no murmur Abdomen: normal bowel sounds, non tender, soft, no organomegaly Extremities: + pertinent finding (tenderness when palpating right elbow. Skin surrounding right elbow is warm and erythematous ) Neurologic/Psychiatric: alert, oriented x 3 Skin: warm/dry, no rash Laboratory Results 02/28/17 04:45 Red Blood Count 2.71, Mean Corpuscular Volume 91.1, Mean Corpuscular Hemoglobin 31.0, Mean Corpuscular Hemoglobin Concent 34.0, Mean Platelet Volume 9.1, Neutrophils (%) (Auto) 90.6, Lymphocytes (%) (Auto) 6.2, Monocytes (%) (Auto) 1.7, Eosinophils (%) (Auto) 0.1, Basophils (%) (Auto) 0.1, Neutrophils # (Auto) 35.19, Lymphocytes # (Auto) 2.41, Monocytes # (Auto) 0.66, Eosinophils # (Auto) 0.05, Basophils # (Auto) 0.02 02/28/17 04:45 Test 02/27/17 13:00 02/27/17 13:03 02/27/17 16:12 02/27/17 21:25 Toxic Granulation 2+ Absolute Reticulocyte Count 0.04 10^6/uL (0.02-0.10) Percent Reticulocyte Count 1.1 % (0.5-2.0) Prothrombin Time 13.0 SECONDS (9.0-12.0) Prothromb Time International Ratio 1.2 (0.9-1.1) Activated Partial Thromboplast Time 31.7 SECONDS (21.0-31.0) Partial Thromboplastin Ratio 1.2 Direct Bilirubin 0.1 mg/dl (0-0.2) Lactate Dehydrogenase 209 U/L (87-241) Total Creatine Kinase 272 U/L (39-308) C-Reactive Protein 26.40 mg/dl (0-0.29) Lipase 40 U/L (73-393) Hepatitis C Antibody Screen NEG (NEG) Bedside Troponin I 0.200 ng/ml (0-0.045) Bedside Lactic Acid Venous 1.61 mmol/L (0.90-1.70) Bedside Glucose 387 mg/dl (70-99) Test 02/27/17 21:58 02/28/17 00:02 02/28/17 04:45 02/28/17 09:11 Blood Gas Sample Site R Radial Bedside Blood Gas pH (LAB) 7.26 (7.35-7.45) Bedside Blood Gas pCO2 (LAB) 22 mmHg (35-46) Bedside Blood Gas pO2 (LAB) 97 mmHg (80-95) Bedside Blood Gas HCO3 (LAB) 10 meq/L (19-24) Bedside Blood Gas Total CO2 10 mEq/l (24-31) Bedside Blood Gas Base Excess (LAB) -18.0 meq/L (-9-1.8) Bedside Blood Gas O2 Saturation 97.0 % (90-95) Enrique Test Pass Oxygen Delivery Device Cannula Neutrophils % (Manual) 93.0 % Lymphocytes % (Manual) 0.0 % Monocytes % (Manual) 6.1 % Metamyelocytes % 0.9 % Neutrophils # (Manual) 43.05 K/uL (1.4-6.5) Total Absolute Neutrophils 43.05 K/uL (1.4-6.5) Total Absolute Lymphocytes 0.00 K/uL (1.2-3.4) Monocytes # (Manual) 2.82 K/uL (0.11-0.59) Metamyelocytes # 0.42 K/uL (0-0) Echinocytes 1+ Rouleau 1+ Prostate Specific Antigen 0.266 ng/ml (0.000-4.000) White Blood Count 38.83 K/uL (4.8-10.8) Red Blood Count 2.71 M/uL (4.7-6.1) Hemoglobin 8.4 g/dL (14.0-18.0) Hematocrit 24.7 % (42-52) Mean Corpuscular Volume 91.1 fL (80-100) Mean Corpuscular Hemoglobin 31.0 pg (25-34) Mean Corpuscular Hemoglobin Concent 34.0 g/dl (32-36) Platelet Count 942 K/uL (130-400) Mean Platelet Volume 9.1 fL (7.4-10.4) Neutrophils (%) (Auto) 90.6 % Lymphocytes (%) (Auto) 6.2 % Monocytes (%) (Auto) 1.7 % Eosinophils (%) (Auto) 0.1 % Basophils (%) (Auto) 0.1 % Neutrophils # (Auto) 35.19 K/uL (1.4-6.5) Lymphocytes # (Auto) 2.41 K/uL (1.2-3.4) Monocytes # (Auto) 0.66 K/uL (0.11-0.59) Eosinophils # (Auto) 0.05 K/uL (0-0.5) Basophils # (Auto) 0.02 K/uL (0-0.2) RDW Standard Deviation 51.5 fL (36.4-46.3) RDW Coefficient of Variation 15.2 % (11.5-14.5) Immature Granulocyte % (Auto) 1.3 % Immature Granulocyte # (Auto) 0.50 K/uL (0.00-0.02) Dohle Bodies 1+ Venous Blood pH 7.30 (7.36-7.41) Anion Gap 14.0 mmol/L (3-11) Est Creatinine Clear Calc Drug Dose 19.7 ml/min Estimated GFR () 20.2 Estimated GFR (Non- 17.4 BUN/Creatinine Ratio 31.0 (10-20) Lactic Acid Level 1.7 mmol/L (0.4-2.0) Calcium Level 7.5 mg/dl (8.5-10.1) Ionized Calcium 0.97 mmol/l (1.12-1.32) Phosphorus Level 6.5 mg/dl (2.5-4.9) Magnesium Level 2.1 mg/dl (1.8-2.4) Total Bilirubin 0.8 mg/dl (0.2-1) Aspartate Amino Transf (AST/SGOT) 122 U/L (15-37) Alanine Aminotransferase (ALT/SGPT) 27 U/L (12-78) Alkaline Phosphatase 383 U/L (45-117) Troponin I 40.000 ng/ml (0-0.045) Total Protein 6.9 gm/dl (6.4-8.2) Albumin 1.9 gm/dl (3.4-5.0) Globulin 5.0 gm/dl (2.5-4.0) Albumin/Globulin Ratio 0.4 (0.9-2) Beta-Hydroxybutyric Acid 19.30 mg/dL (0.2-2.81) Random Vancomycin Level 14.4 mcg/ml Test 02/28/17 09:28 Bedside Glucose (other) 266 mg/dl (70-99) Date/Time Source Procedure Growth Status 02/27/17 18:30 Stool C.difficile Toxin B Gene (PCR) - Final No C. difficile toxin B gene detected Complete Assessment and Plan 67 yo male admitted to the ICU with Septic shock 2/2 to urosepsis, obstructive uropathy Septic shock -Secondary to UTI with underlying obstructive uropathy -Pt has a recent hospitalization UTI/Prostatitis -WBC 46.29 trending down today---->27.57 -Pt provided fluid boluses, maintenance IVF and pressors -Central line placed, pt empirically treated with Vancomycin and Zosyn NSTEMI -2/2 shock -Trops elevated x3 -ECHO shows hypokinesis of the left ventricle -Continue ASA. Hold BB, KORI -Monitor until medically stable for angiography MACY -2/2 obstructive uropathy -Keep in [facility], consult with urology, appreciate recs -IVF, follow-up BMP DKA -Pt came in with high sugars, -Anion gap acidosis, elevated beta-hydroxybutyrate, normal lactic acid -PMHX DM2, noncompliant, HbA1c 13.1----3 months ago -Likely exacerbated by infection -IVF, insulin drip Anemia -Hgb 7.5, Hct 22.8 -Pt was anemic on arrival, pt dilutional as well -Iron studies order -PRBC given Reviewed: Pt Seen/Exam by Me History concerned about having had fall and joint pains. denies any joint pain right now. Constitutional: denies: fever Respiratory: negative: short of breath Cardiovascular: denies chest pain Gastrointestinal/Abdominal: negative: abdominal pain General Appearance: no apparent distress Respiratory: lungs clear, no respiratory distress Cardiovascular: regular rate, rhythm Neurologic/Psychiatric: alert, oriented x 3 Skin Characteristics: warm/dry Assessment/Plan Resident Physician Supervision Note: I was present with Dr. Casillas in bedside. I verified the donaldson history and physical, reviewed labs and image studies, discussed the case with the resident and agree with the findings and care plan.
[2017-02-28] MEDS ORDERED: INSULIN REGULAR 250 UNITS in SODIUM CHLORIDE 0.9% 250ML 250 ML IV SCH (11:30)
--- NOTE | 2017-02-28 11:35 | Critical Care Consultation ---
Critical Care Consultation Date of Consultation: Feb 28, 2017. Attending Physician: Joy Pardo M.D. Reason for Consultation: Septic shock History of Present Illness This is a 67 year old male with h/o diabetes, BPH, recent UTI, was admitted yesterday for weakness, lightheadedness. He recall falling at home and injuring his right elbow, without having loss of consciousness. The workup revealed bilateral hydronephrosis. When the Miller was inserted he voided 1600 ml of urine. Shortly after admission he continued to deteriorate despite having received fluid boluses and antibiotics, and last night was transferred to ICU, received 3 more liters NS and was started on Levophed. He was also started on an insulin drip fro DKA. The patient feels more comfortable this AM, is still on pressors though. Denies chills now, denies abdominal or back pain, but had some diarrhea. Past Medical/Surgical History DM-2 poorly controlled BPH HTN Vitamin D deficiency Tonsillectomy Family History No pertinent family history Social History Smoking Status: Former Smoker Drug Use: none Marital Status: single Occupation Status: employed Allergies Coded Allergies: No Known Allergies (Unverified , 02/27/17) Home Medications Scheduled Acetaminophen (Tylenol), 1,000 MG PO QPM Aspirin (Aspirin Ec), 81 MG PO DAILY Atenolol (Tenormin), 50 MG PO DAILY Cholecalciferol (Vitamin D), 1,000 UNITS PO DAILY Cyanocobalamin (Vitamin B-12), 1,000 MCG PO DAILY Hydrochlorothiazide (Hydrochlorothiazide), 12.5 MG PO DAILY Insulin Glargine (Lantus Solostar), Unknown Dose SC QPM Lisinopril (Prinivil), 10 MG PO DAILY Meloxicam (Mobic), 15 MG PO DAILY Metformin Hcl (Glucophage), 1,000 MG PO BID Tamsulosin Hcl (Flomax), 0.4 MG PO DAILY Tocopheryl Acet,Dl-Alpha (Vitamin E), 100 UNITS PO DAILY Current Inpatient Medications Current Inpatient Medications Medications (Trade) Dose Ordered Sig/Nilda Route Start Time Stop Time Status Last Admin Dose Admin Enoxaparin Sodium (Lovenox Inj) 30 mg Q24H SC 02/27/17 18:00 03/29/17 17:59 02/27/17 19:44 30 MG Acetaminophen (Tylenol Tab) 650 mg Q4H PRN PO 02/27/17 15:30 03/29/17 15:29 Al Hydrox/Mg Hydrox/Simethicone (Maalox Max Susp) 15 ml Q4H PRN PO 02/27/17 15:30 03/29/17 15:29 Magnesium Hydroxide (Milk Of Magnesia Susp) 30 ml Q12H PRN PO 02/27/17 15:30 03/29/17 15:29 Ondansetron HCl (Zofran Inj) 4 mg Q6H PRN IV 02/27/17 15:30 03/29/17 15:29 Polyethylene (Miralax Powder Packet) 17 gm DAILY PRN PO 02/27/17 15:30 03/29/17 15:29 Piperacillin Sod/ Tazobactam Sod 3.375 gm/Dextrose 115 ml @ 28.75 mls/ hr Q8H IV 02/28/17 00:00 03/10/17 00:00 02/28/17 08:59 28.75 MLS/HR Aspirin (Ecotrin Tab) 81 mg DAILY PO 02/28/17 09:00 03/30/17 08:59 02/28/17 09:01 81 MG Cholecalciferol (Vitamin D Tab) 1,000 inter.unit DAILY PO 02/28/17 09:00 03/30/17 08:59 02/28/17 09:03 1,000 INTER.UNIT Cyanocobalamin (Vitamin B-12 Tab) 1,000 mcg DAILY PO 02/28/17 09:00 03/30/17 08:59 02/28/17 09:03 1,000 MCG Tamsulosin HCl (Flomax Cap) 0.4 mg DAILY PO 02/28/17 09:00 03/30/17 08:59 02/28/17 09:05 0.4 MG Vancomycin HCl (Consult) 1 ea UD PRN N/A 02/27/17 15:45 03/29/17 15:44 Piperacillin Sod/ Tazobactam Sod (Consult) 1 ea UD PRN N/A 02/27/17 15:45 03/29/17 15:44 Sodium Chloride 1,000 ml @ 100 mls/hr Q10H IV 02/27/17 17:15 03/29/17 17:14 02/27/17 18:02 100 MLS/HR Glucose (Glucose 40% Gel) 15-30 GRAMS 15 GRAMS... UD PRN PO 02/27/17 17:30 03/29/17 17:29 Glucose (Glucose Chew Tab) 4-8 Tablets 4 Tabl... UD PRN PO 02/27/17 17:30 03/29/17 17:29 Dextrose (Dextrose 50% 50ML Syringe) 25-50ML OF 50% DW IV FOR... UD PRN IV 02/27/17 17:30 03/29/17 17:29 Glucagon (Glucagon Inj) 1 mg UD PRN SQ 02/27/17 17:30 03/29/17 17:29 Norepinephrine Bitartrate 8 mg/ Dextrose 508 ml @ 0 mls/hr Q0M PRN IV 02/27/17 21:45 03/29/17 21:44 02/28/17 09:00 43.4 MLS/HR Albumin Human (Albumin 25%) 25 gm Q6H IV 02/28/17 05:00 03/03/17 04:59 02/28/17 05:56 25 GM Insulin Aspart (novoLOG ASPART) [facility] 02/28/17 08:00 03/30/17 07:59 Famotidine 20 mg/ Dextrose 102 ml @ 204 mls/hr Q12@0900,2100 IV 02/28/17 09:00 03/30/17 08:59 02/28/17 08:40 204 MLS/HR Insulin Human Regular 250 units/ Sodium Chloride 252.5 ml @ 0 mls/hr DAILY@1130 IV 02/28/17 11:30 03/30/17 11:29 Insulin Human Regular 250 units/ Sodium Chloride 252.5 ml @ 0 mls/hr TODAY@2215 IV 02/27/17 22:15 02/28/17 11:29 02/27/17 23:20 2.6 MLS/HR Enteral Nutritional Formula (Boost Glucose Control) 1 can TID PO 02/28/17 14:00 03/30/17 13:59 Review of Systems Per HPI, all other systems reviewed and negative Physical Exam Date Time Temp Pulse Resp B/P (MAP) Pulse Ox O2 Delivery O2 Flow Rate FiO2 02/28/17 10:30 101 25 119/75 (90) 96 02/28/17 10:15 102 23 117/66 (83) 97 02/28/17 10:00 99 21 120/67 (84) 95 02/28/17 09:45 95 21 114/64 (81) 96 02/28/17 09:30 113 32 125/77 (93) 94 02/28/17 09:16 114 33 129/74 (92) 97 02/28/17 09:15 112 27 97 02/28/17 09:01 93 26 96/55 (69) 97 02/28/17 09:00 36.6 92 23 98 02/28/17 08:45 92 19 112/65 (81) 97 02/28/17 08:30 92 27 111/65 (80) 98 02/28/17 08:16 93 22 92/57 (69) 96 02/28/17 08:15 93 22 97 02/28/17 08:00 92 22 109/64 (79) 96 02/28/17 08:00 95 Nasal Cannula 2.0 02/28/17 07:46 93 30 110/64 (79) 98 02/28/17 07:45 94 25 98 02/28/17 07:30 93 33 110/54 (72) 97 02/28/17 06:00 94 33 99/60 (73) 97 02/28/17 05:46 96 27 93/57 (69) 98 02/28/17 05:31 97 23 92/58 (69) 98 02/28/17 05:15 97 21 97/58 (71) 97 02/28/17 05:00 93 33 87/54 (65) 96 02/28/17 04:46 95 43 91/57 (68) 98 02/28/17 04:30 92 24 91/57 (68) 97 02/28/17 04:15 93 27 86/53 (64) 98 02/28/17 04:11 36.8 93 27 83/53 (63) 98 02/28/17 04:00 98 Nasal Cannula 2.0 02/28/17 03:45 92 23 90/60 (70) 96 02/28/17 03:30 95 23 93/60 (71) 98 02/28/17 03:15 92 31 78/51 (60) 98 02/28/17 03:00 92 21 74/54 (61) 99 02/28/17 02:45 92 23 83/54 (64) 99 02/28/17 02:30 92 29 84/53 (63) 99 02/28/17 02:15 92 26 87/55 (66) 02/28/17 02:00 90 26 84/52 (63) 100 02/28/17 01:45 92 22 88/52 (64) 99 02/28/17 01:30 114 23 99/58 (72) 02/28/17 01:15 93 21 84/51 (62) 99 02/28/17 01:00 94 21 87/53 (64) 98 02/28/17 00:45 95 26 92/55 (67) 99 02/28/17 00:30 94 19 95/57 (70) 98 02/28/17 00:15 96 22 106/58 (74) 100 02/28/17 00:00 36.5 95 25 103/55 (71) 100 Nasal Cannula 2.0 02/27/17 23:59 98 Nasal Cannula 2.0 02/27/17 23:46 93 26 91/56 (68) 98 02/27/17 23:30 91 26 84/51 (62) 97 02/27/17 23:15 92 26 88/57 (67) 88 02/27/17 23:00 90 33 83/51 (62) 95 02/27/17 22:45 90 23 79/51 (60) 97 02/27/17 22:39 88 22 77/47 (57) 95 02/27/17 22:33 90 21 79/49 (59) 97 02/27/17 22:30 90 22 77/47 (57) 95 02/27/17 22:15 88 29 81/47 (58) 97 02/27/17 22:00 92 25 86/52 (63) 97 02/27/17 21:53 91 19 81/49 (60) 02/27/17 21:45 91 25 78/47 (57) 100 02/27/17 21:39 36.4 91 29 69/42 (51) 02/27/17 21:19 78/49 (59) 02/27/17 21:04 93 78/53 (61) 02/27/17 21:00 69/46 (54) 02/27/17 20:48 74/47 (56) 81/51 (61) 02/27/17 20:00 97 Nasal Cannula 2.0 02/27/17 20:00 36.5 102 20 81/51 (61) 100 Nasal Cannula 2.0 02/27/17 19:00 98 Nasal Cannula 2.0 02/27/17 16:32 88 18 90/44 98 02/27/17 16:30 36.5 88 16 99/56 (70) 96 Room Air 02/27/17 15:37 97 Room Air 02/27/17 14:22 92 16 97/53 97 Room Air 02/27/17 13:07 87 16 98/57 99 Room Air 89 97/55 88 90/46 02/27/17 13:05 89 23 94/56 99 Room Air 02/27/17 12:46 86 94/63 97 Room Air 02/27/17 12:28 84 02/27/17 12:03 36.5 87 16 84/50 100 Room Air General: Middle aged male, in no distress HEENT: Dry oral mucosa, NC/AT Lungs: clear to auscultation b/l CVS: S1S2 regular Abdomen: soft, non-tender, non-distended Back: no CVA tenderness Ext: No pedal edema, no cyanosis. 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: AAO x 3, no focal deficit Laboratory Results Last 24 Hours Test 02/27/17 13:00 02/27/17 13:03 02/27/17 16:12 02/27/17 19:45 White Blood Count 41.77 K/uL Red Blood Count 3.23 M/uL Hemoglobin 9.7 g/dL Hematocrit 29.6 % Mean Corpuscular Volume 91.6 fL Mean Corpuscular Hemoglobin 30.0 pg Mean Corpuscular Hemoglobin Concent 32.8 g/dl Platelet Count 1016 K/uL Mean Platelet Volume 9.4 fL Neutrophils (%) (Auto) 87.7 % Lymphocytes (%) (Auto) 3.2 % Monocytes (%) (Auto) 6.9 % Eosinophils (%) (Auto) 0.0 % Basophils (%) (Auto) 0.0 % Neutrophils # (Auto) 36.61 K/uL Lymphocytes # (Auto) 1.33 K/uL Monocytes # (Auto) 2.90 K/uL Eosinophils # (Auto) 0.01 K/uL Basophils # (Auto) 0.02 K/uL RDW Standard Deviation 50.2 fL RDW Coefficient of Variation 14.8 % Immature Granulocyte % (Auto) 2.2 % Immature Granulocyte # (Auto) 0.90 K/uL Toxic Granulation 2+ Dohle Bodies 1+ Absolute Reticulocyte Count 0.04 10^6/uL Percent Reticulocyte Count 1.1 % Prothrombin Time 13.0 SECONDS Prothromb Time International Ratio 1.2 Activated Partial Thromboplast Time 31.7 SECONDS Partial Thromboplastin Ratio 1.2 Sodium Level 135 mmol/L Potassium Level 5.5 mmol/L Chloride Level 100 mmol/L Carbon Dioxide Level 17 mmol/L Anion Gap 18.0 mmol/L Blood Urea Nitrogen 104 mg/dl Creatinine 3.10 mg/dl Est Creatinine Clear Calc Drug Dose 21.6 ml/min Estimated GFR () 22.6 Estimated GFR (Non- 19.5 BUN/Creatinine Ratio 33.5 Random Glucose 162 mg/dl Calcium Level 8.8 mg/dl Total Bilirubin 0.4 mg/dl Direct Bilirubin 0.1 mg/dl Aspartate Amino Transf (AST/SGOT) 34 U/L Alanine Aminotransferase (ALT/SGPT) 19 U/L Alkaline Phosphatase 232 U/L Lactate Dehydrogenase 209 U/L Total Creatine Kinase 272 U/L C-Reactive Protein 26.40 mg/dl Total Protein 8.1 gm/dl Albumin 1.6 gm/dl Lipase 40 U/L Procalcitonin 13.98 ng/ml Hepatitis C Antibody Screen NEG Bedside Troponin I 0.200 ng/ml Bedside Lactic Acid Venous 1.61 mmol/L Bedside Glucose 340 mg/dl Test 02/27/17 21:14 02/27/17 21:15 02/27/17 21:25 02/27/17 21:58 Sodium Level 134 mmol/L Potassium Level 5.3 mmol/L Chloride Level 102 mmol/L Carbon Dioxide Level 14 mmol/L Anion Gap 18.0 mmol/L Blood Urea Nitrogen 109 mg/dl Creatinine 3.30 mg/dl Est Creatinine Clear Calc Drug Dose 20.3 ml/min Estimated GFR () 20.9 Estimated GFR (Non- 18.1 BUN/Creatinine Ratio 33.0 Random Glucose 385 mg/dl Calcium Level 7.8 mg/dl Troponin I 0.312 ng/ml Beta-Hydroxybutyric Acid 68.84 mg/dL Hemoglobin 8.6 g/dL Hematocrit 26.7 % Bedside Glucose 387 mg/dl Lactic Acid Level 1.8 mmol/L Blood Gas Sample Site R Radial Bedside Blood Gas pH (LAB) 7.26 Bedside Blood Gas pCO2 (LAB) 22 mmHg Bedside Blood Gas pO2 (LAB) 97 mmHg Bedside Blood Gas HCO3 (LAB) 10 meq/L Bedside Blood Gas Total CO2 10 mEq/l Bedside Blood Gas Base Excess (LAB) -18.0 meq/L Bedside Blood Gas O2 Saturation 97.0 % Enrique Test Pass Oxygen Delivery Device Cannula Test 02/28/17 00:02 02/28/17 00:37 02/28/17 01:48 02/28/17 02:44 White Blood Count 46.29 K/uL Red Blood Count 2.93 M/uL Hemoglobin 8.8 g/dL Hematocrit 27.5 % Mean Corpuscular Volume 93.9 fL Mean Corpuscular Hemoglobin 30.0 pg Mean Corpuscular Hemoglobin Concent 32.0 g/dl Platelet Count 997 K/uL Mean Platelet Volume 9.4 fL RDW Standard Deviation 52.7 fL RDW Coefficient of Variation 15.3 % Neutrophils % (Manual) 93.0 % Lymphocytes % (Manual) 0.0 % Monocytes % (Manual) 6.1 % Metamyelocytes % 0.9 % Neutrophils # (Manual) 43.05 K/uL Total Absolute Neutrophils 43.05 K/uL Total Absolute Lymphocytes 0.00 K/uL Monocytes # (Manual) 2.82 K/uL Metamyelocytes # 0.42 K/uL Dohle Bodies 1+ Echinocytes 1+ Rouleau 1+ Venous Blood pH 7.22 Sodium Level 135 mmol/L Potassium Level 4.9 mmol/L Chloride Level 102 mmol/L Carbon Dioxide Level 15 mmol/L Anion Gap 18.0 mmol/L Blood Urea Nitrogen 105 mg/dl Creatinine 3.40 mg/dl Est Creatinine Clear Calc Drug Dose 19.7 ml/min Estimated GFR () 20.2 Estimated GFR (Non- 17.4 BUN/Creatinine Ratio 30.9 Random Glucose 366 mg/dl Lactic Acid Level 1.5 mmol/L Calcium Level 7.7 mg/dl Ionized Calcium 1.00 mmol/l Phosphorus Level 6.8 mg/dl Magnesium Level 2.1 mg/dl Total Bilirubin 0.7 mg/dl Aspartate Amino Transf (AST/SGOT) 34 U/L Alanine Aminotransferase (ALT/SGPT) 19 U/L Alkaline Phosphatase 239 U/L Troponin I 3.260 ng/ml Total Protein 7.6 gm/dl Albumin 2.2 gm/dl Globulin 5.4 gm/dl Albumin/Globulin Ratio 0.4 Prostate Specific Antigen 0.266 ng/ml Beta-Hydroxybutyric Acid 62.56 mg/dL Bedside Glucose (other) 343 mg/dl 334 mg/dl 327 mg/dl Test 02/28/17 03:33 02/28/17 04:45 02/28/17 04:49 02/28/17 05:59 Bedside Glucose (other) 320 mg/dl 314 mg/dl 303 mg/dl White Blood Count 38.83 K/uL Red Blood Count 2.71 M/uL Hemoglobin 8.4 g/dL Hematocrit 24.7 % Mean Corpuscular Volume 91.1 fL Mean Corpuscular Hemoglobin 31.0 pg Mean Corpuscular Hemoglobin Concent 34.0 g/dl Platelet Count 942 K/uL Mean Platelet Volume 9.1 fL Neutrophils (%) (Auto) 90.6 % Lymphocytes (%) (Auto) 6.2 % Monocytes (%) (Auto) 1.7 % Eosinophils (%) (Auto) 0.1 % Basophils (%) (Auto) 0.1 % Neutrophils # (Auto) 35.19 K/uL Lymphocytes # (Auto) 2.41 K/uL Monocytes # (Auto) 0.66 K/uL Eosinophils # (Auto) 0.05 K/uL Basophils # (Auto) 0.02 K/uL RDW Standard Deviation 51.5 fL RDW Coefficient of Variation 15.2 % Immature Granulocyte % (Auto) 1.3 % Immature Granulocyte # (Auto) 0.50 K/uL Dohle Bodies 1+ Venous Blood pH 7.30 Sodium Level 134 mmol/L Potassium Level 4.8 mmol/L Chloride Level 103 mmol/L Carbon Dioxide Level 17 mmol/L Anion Gap 14.0 mmol/L Blood Urea Nitrogen 105 mg/dl Creatinine 3.40 mg/dl Est Creatinine Clear Calc Drug Dose 19.7 ml/min Estimated GFR () 20.2 Estimated GFR (Non- 17.4 BUN/Creatinine Ratio 31.0 Random Glucose 312 mg/dl Lactic Acid Level 1.7 mmol/L Calcium Level 7.5 mg/dl Ionized Calcium 0.97 mmol/l Phosphorus Level 6.5 mg/dl Magnesium Level 2.1 mg/dl Total Bilirubin 0.8 mg/dl Aspartate Amino Transf (AST/SGOT) 122 U/L Alanine Aminotransferase (ALT/SGPT) 27 U/L Alkaline Phosphatase 383 U/L Troponin I 40.000 ng/ml Total Protein 6.9 gm/dl Albumin 1.9 gm/dl Globulin 5.0 gm/dl Albumin/Globulin Ratio 0.4 Beta-Hydroxybutyric Acid 19.30 mg/dL Test 02/28/17 07:41 02/28/17 09:11 02/28/17 09:28 Bedside Glucose (other) 273 mg/dl 266 mg/dl Random Vancomycin Level 14.4 mcg/ml Diagnostic Results Renal US 02/27/17: Suspected moderate bilateral hydronephrosis with left hydroureter. The presence of echogenic debris within the left renal collecting system and bladder raises concern for infection. Pyonephrosis cannot be excluded. Correlate clinically with urinalysis. Further evaluation with CT to be considered as clinically warranted. CXR 02/27/17: 1. No acute cardiopulmonary process. 2. Status post placement of a left internal jugular central venous catheter with distal tip terminating within the region of the mid SVC. No postprocedural pneumothorax. Elbow X-ray 02/28/17: No acute osseous injury of the right elbow. Assessment & Plan 67 year old male with h/o uncontrolled DM, presents with septic shock secondary to obstructive uropathy, DKA, now developing NSTEMI Problems: Septic shock secondary to urosepsis Obstructive uropathy secondary to BPH DKA NSTEMI MACY Plan: SENIOR CONSUMER INSIGHTS CONSULTANT: Weakness should improved with treatment of the underlying problem CVS: Continue pressor support as needed Continue IV fluids Starting ASA for NSTEMI Cardiology consultation noted. Once stabilized, to proceed with coronary angiogram. Holding off beta-callie and KORI inhibitors due being on pressors and having MACY Also holding off anticoagulation given reported hematuria. Probably not plaque rupture. Pulmonary: Mild compensatory tachypnea, improved (Kussmaul) ID: F/u blood and urine cultures Continue broad spectrum Abx for the time being, on Zosyn and Vancomycin Renal/metabolic: * MACY - monitor renal function. continue IV fluids. Keep Miller in. The patient has multiple reasons for MACY, hypotension, long standing obstruction, hypovolemia, sepsis * Gap acidosis and mild non-gap acidosis - secondary to DKA and MACY. No component of lactic acidosis amazingly * Obstructive uropathy - Keep Miller in place. Urology consult noted. Obtain CT abdomen today * DKA - monitor chemistry every 4 hours while on insulin drip, monitor anion gap. Replenish lytes as needed Endo: in DKA now, precipitate by sepsis. Patient also has significant non- compliance. Continue insulin drip per protocol, hourly fingersticks GI: Keep NPO for the time being, still on insulin drip DVT prophylaxis: [place] Lovenox Critical care time spent with the patient, greater than 40 minutes Deyvi Haro MD
[2017-02-28] MEDS: SODIUM CHLORIDE 0.9% 1000ML 1,000 ML IV SCH ×3 (11:42→18:08)
[2017-02-28 12:04] LABS: HEMATOCRIT 25.2 % (42-52); MEAN CELL VOLUME 90.3 fL (80-100); MEAN CORPUSCULAR HEMOGLOBIN 30.1 pg (25-34); MEAN CORPUSCULAR HGB CONC 33.3 g/dl (32-36); PLATELET COUNT 906 K/uL (130-400); RED BLOOD COUNT 2.79 M/uL (4.7-6.1); WHITE BLOOD COUNT 35.97 K/uL (4.8-10.8)
[2017-02-28 12:09] LABS: BASO % 0.1 %; BASO ABS # 0.02 K/uL (0-0.2); COMPLETE YES; EOS % 0.3 %; IG% 0.9 %; LYMPH % 5.2 %; LYMPH ABS # 1.88 K/uL (1.2-3.4); MONO % 1.9 %; NEUT % 91.6 %
[2017-02-28 12:29] LABS: BUN/CREATININE RATIO 34.6 (10-20); CALCIUM 7.2 mg/dl (8.5-10.1); CREATININE 2.8 mg/dl (0.60-1.40); MAGNESIUM 1.9 mg/dl (1.8-2.4); POTASSIUM 4.1 mmol/L (3.5-5.1)
[2017-02-28] MEDS: ACETAMINOPHEN 325 MG TAB PO PRN ×2 (12:49→23:47)
[2017-02-28 12:50] LABS: ALB/GLOB RATIO 0.4 (0.9-2)
[2017-02-28 12:52] LABS: PHOSPHORUS 4.3 mg/dl (2.5-4.9)
--- NOTE | 2017-02-28 13:40 | DIAGNOSTIC IMAGING REPORT ---
ABD/PELVIS NO IV OR ORAL CONT CLINICAL HISTORY: 67 years-old Male presenting with obstructive uropathy, sepsis. TECHNIQUE: Multidetector CT of the abdomen and pelvis was performed without the use of intravenous contrast. IV contrast: None. A dose lowering technique was used consistent with the principles of ALARA (as low as reasonably achievable). COMPARISON: None. CT DOSE (mGy.cm): The estimated cumulative dose is 617.57 mGy.cm. 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 Lung bases: Dependent opacities greater on the right lung base. Small right and trace left pleural effusions. Top normal heart size. Coronary artery and aortic valve calcification. Liver: Normal morphology. Periportal edema suggested. Borderline hepatic steatosis. Biliary: Possible mild central prominence of the intrahepatic bile ducts within the limitations of noncontrast technique. Gallbladder contains gallstones. Pancreas: Moderate parenchymal atrophy. Spleen: Normal. Adrenal glands: Normal. Kidneys and ureters: Renal vascular calcification noted. Mild right and moderate left dilatation of the collecting systems. Bilateral perinephric and periureteral fat stranding. Mild urothelial thickening may be present. Dilatation of the bilateral ureters, left greater than right. Distal ureters are poorly visualized. A 4 mm calculus at the left ureterovesical junction cannot be excluded (series 3 image [id number]). No such candidate calcification is noted on the right. Bladder: Decompressed with a Miller catheter. Intraluminal gas related to the Miller. Suggestion of bladder wall thickening. Pelvic organs: Prostate enlargement likely secondary to benign prostatic hyperplasia. The prostate is also more hypodense than expected. Bowel: Limited sigmoid diverticulosis. Normal appendix. No bowel obstruction. Peritoneal cavity: Trace perihepatic ascites. Fluid noted in the anterior perirenal spaces tracking inferiorly to the pelvis. Small amount of pelvic ascites. No free gas. Vasculature: Atherosclerosis of the normal caliber abdominal aorta. Lymph nodes: Numerous prominent retroperitoneal lymph nodes noted in the left periaortic and aortocaval regions, which are subcentimeter and possibly reactive. Abdominal wall: Infiltration of the flanks may indicate minimal anasarca. Musculoskeletal: Degenerative changes of the spine. Degenerative changes of the pubic symphysis. IMPRESSION: 1. Mild right and moderate left pelvocaliectasis. Left hydronephrosis suspected with an obstructing left ureterovesical junction calculus versus pelvic phlebolith. 2. Urothelial thickening with perinephric and periureteral fat stranding raises concern for urinary tract infection with upper tract involvement. The absence of intravenous contrast limits evaluation for pyelonephritis. Correlate with urinalysis. 3. Relative hypodensity of the prostate raises concern for prostatitis. 4. Subtle amount of abdominal pelvic ascites. 5. Possible minimal anasarca and periportal edema, which could go along with volume overload. 6. Small right and trace left pleural effusions with associated dependent opacities likely atelectasis. Electronically signed by: Kj Ruelas M.D. 02/28/2017 1:39 PM Dictated Date/Time: 02/28/2017 1:29 PM
[2017-02-28] MEDS ORDERED: PENDING D5NSS IVF SCH (13:45)
[2017-02-28] MEDS ORDERED: VANCOMYCIN INJ 1,000 MG in SODIUM CHLORIDE 0.9% 250ML 250 ML IV SCH (14:00)
[2017-02-28] MEDS ORDERED: DAPTOmycin IV 400 MG in SODIUM CHLORIDE 0.9% 50ML 50 ML IV SCH (14:00)
[2017-02-28] MEDS ORDERED: NURSING VERBAL MED ORDER ONE ×2 (14:30→18:00)
[2017-02-28] MEDS ORDERED: D5W AND NSS 1,000 ML IV SCH (15:00)
[2017-02-28] MEDS: BOOST GLUCOSE CONTROL PO SCH ×2 (15:11→19:56)
[2017-02-28 16:14] LABS: HEMATOCRIT 22.2 % (42-52); MEAN CELL VOLUME 89.9 fL (80-100); MEAN CORPUSCULAR HEMOGLOBIN 30.4 pg (25-34); MEAN CORPUSCULAR HGB CONC 33.8 g/dl (32-36); MEAN PLATELET VOLUME 8.6 fL (7.4-10.4); PLATELET COUNT 686 K/uL (130-400); RED BLOOD COUNT 2.47 M/uL (4.7-6.1); WHITE BLOOD COUNT 27.57 K/uL (4.8-10.8)
[2017-02-28 16:38] LABS: BASO ABS # 0.01 K/uL (0-0.2); COMPLETE YES; DOHLE BODIES 1+; EOS % 0.5 %; IG% 1.2 %; LYMPH % 3.3 %; LYMPH ABS # 0.92 K/uL (1.2-3.4)
[2017-02-28 16:41] LABS: BUN/CREATININE RATIO 36.4 (10-20); CALCIUM 7.3 mg/dl (8.5-10.1); CREATININE 2.5 mg/dl (0.60-1.40); MAGNESIUM 1.8 mg/dl (1.8-2.4); POTASSIUM 3.9 mmol/L (3.5-5.1)
--- NOTE | 2017-02-28 16:47 | Pharmacy Progress Note ---
Pharmacy Antibiotic Prog Note Date of Service Feb 28, 2017. Subjective The patient is currently receiving vancomycin IV as pulse doses for now. The patient is currently on day # 210 of vancomycin and Zosyn IV therapy. Objective Height (Feet): 5 Height (Inches): 11.00 Weight (Kilograms): 68.000 Levels: Item Value Date Time Random Vancomycin Level 14.4 mcg/ml 02/28/17 0911 Lab Results (24hrs): Test 02/27/17 19:45 02/27/17 21:25 02/27/17 21:58 02/28/17 00:02 Bedside Glucose 340 mg/dl (70-99) 387 mg/dl (70-99) Blood Gas Sample Site R Radial Bedside Blood Gas pH (LAB) 7.26 (7.35-7.45) Bedside Blood Gas pCO2 (LAB) 22 mmHg (35-46) Bedside Blood Gas pO2 (LAB) 97 mmHg (80-95) Bedside Blood Gas HCO3 (LAB) 10 meq/L (19-24) Bedside Blood Gas Total CO2 10 mEq/l (24-31) Bedside Blood Gas Base Excess (LAB) -18.0 meq/L (-9-1.8) Bedside Blood Gas O2 Saturation 97.0 % (90-95) Enrique Test Pass Oxygen Delivery Device Cannula Neutrophils % (Manual) 93.0 % Lymphocytes % (Manual) 0.0 % Monocytes % (Manual) 6.1 % Metamyelocytes % 0.9 % Neutrophils # (Manual) 43.05 K/uL (1.4-6.5) Total Absolute Neutrophils 43.05 K/uL (1.4-6.5) Total Absolute Lymphocytes 0.00 K/uL (1.2-3.4) Monocytes # (Manual) 2.82 K/uL (0.11-0.59) Metamyelocytes # 0.42 K/uL (0-0) Echinocytes 1+ Rouleau 1+ Prostate Specific Antigen 0.266 ng/ml (0.000-4.000) Beta-Hydroxybutyric Acid 62.56 mg/dL (0.2-2.81) Test 02/28/17 04:45 02/28/17 09:11 02/28/17 11:25 02/28/17 13:46 Dohle Bodies 1+ Est Creatinine Clear Calc Drug Dose 19.7 ml/min 23.9 ml/min Lactic Acid Level 1.7 mmol/L (0.4-2.0) 1.4 mmol/L (0.4-2.0) Beta-Hydroxybutyric Acid 19.30 mg/dL (0.2-2.81) Random Vancomycin Level 14.4 mcg/ml White Blood Count 35.97 K/uL (4.8-10.8) Red Blood Count 2.79 M/uL (4.7-6.1) Hemoglobin 8.4 g/dL (14.0-18.0) Hematocrit 25.2 % (42-52) Mean Corpuscular Volume 90.3 fL (80-100) Mean Corpuscular Hemoglobin 30.1 pg (25-34) Mean Corpuscular Hemoglobin Concent 33.3 g/dl (32-36) Platelet Count 906 K/uL (130-400) Mean Platelet Volume 9.0 fL (7.4-10.4) Neutrophils (%) (Auto) 91.6 % Lymphocytes (%) (Auto) 5.2 % Monocytes (%) (Auto) 1.9 % Eosinophils (%) (Auto) 0.3 % Basophils (%) (Auto) 0.1 % Neutrophils # (Auto) 32.97 K/uL (1.4-6.5) Lymphocytes # (Auto) 1.88 K/uL (1.2-3.4) Monocytes # (Auto) 0.67 K/uL (0.11-0.59) Eosinophils # (Auto) 0.10 K/uL (0-0.5) Basophils # (Auto) 0.02 K/uL (0-0.2) RDW Standard Deviation 50.0 fL (36.4-46.3) RDW Coefficient of Variation 15.0 % (11.5-14.5) Immature Granulocyte % (Auto) 0.9 % Immature Granulocyte # (Auto) 0.33 K/uL (0.00-0.02) Red Blood Cell Morphology Unremarkable Venous Blood pH 7.36 (7.36-7.41) Sodium Level 137 mmol/L (136-145) Potassium Level 4.1 mmol/L (3.5-5.1) Chloride Level 107 mmol/L (98-107) Carbon Dioxide Level 19 mmol/L (21-32) Anion Gap 11.0 mmol/L (3-11) Blood Urea Nitrogen 97 mg/dl (7-18) Creatinine 2.80 mg/dl (0.60-1.40) Estimated GFR () 25.5 Estimated GFR (Non- 22.0 BUN/Creatinine Ratio 34.6 (10-20) Random Glucose 226 mg/dl (70-99) Calcium Level 7.2 mg/dl (8.5-10.1) Ionized Calcium 0.96 mmol/l (1.12-1.32) Phosphorus Level 4.3 mg/dl (2.5-4.9) Magnesium Level 1.9 mg/dl (1.8-2.4) Total Bilirubin 0.5 mg/dl (0.2-1) Aspartate Amino Transf (AST/SGOT) 140 U/L (15-37) Alanine Aminotransferase (ALT/SGPT) 31 U/L (12-78) Alkaline Phosphatase 336 U/L (45-117) Troponin I 48.200 ng/ml (0-0.045) Total Protein 6.8 gm/dl (6.4-8.2) Albumin 1.9 gm/dl (3.4-5.0) Globulin 4.9 gm/dl (2.5-4.0) Albumin/Globulin Ratio 0.4 (0.9-2) Procalcitonin 10.98 ng/ml (0-0.5) Bedside Glucose (other) 163 mg/dl (70-99) Test 02/28/17 14:53 02/28/17 15:59 Bedside Glucose (other) 149 mg/dl (70-99) White Blood Count 27.57 K/uL (4.8-10.8) Red Blood Count 2.47 M/uL (4.7-6.1) Hemoglobin 7.5 g/dL (14.0-18.0) Hematocrit 22.2 % (42-52) Mean Corpuscular Volume 89.9 fL (80-100) Mean Corpuscular Hemoglobin 30.4 pg (25-34) Mean Corpuscular Hemoglobin Concent 33.8 g/dl (32-36) Platelet Count 686 K/uL (130-400) Mean Platelet Volume 8.6 fL (7.4-10.4) Neutrophils (%) (Auto) 89.0 % Lymphocytes (%) (Auto) 3.3 % Monocytes (%) (Auto) 6.0 % Eosinophils (%) (Auto) 0.5 % Basophils (%) (Auto) 0.0 % Neutrophils # (Auto) 24.53 K/uL (1.4-6.5) Lymphocytes # (Auto) 0.92 K/uL (1.2-3.4) Monocytes # (Auto) 1.65 K/uL (0.11-0.59) Eosinophils # (Auto) 0.14 K/uL (0-0.5) Basophils # (Auto) 0.01 K/uL (0-0.2) RDW Standard Deviation 49.7 fL (36.4-46.3) RDW Coefficient of Variation 15.1 % (11.5-14.5) Immature Granulocyte % (Auto) 1.2 % Immature Granulocyte # (Auto) 0.32 K/uL (0.00-0.02) Dohle Bodies 1+ Venous Blood pH 7.34 (7.36-7.41) Ionized Calcium 0.99 mmol/l (1.12-1.32) Micro Results: Blood and urine cx are pending. Recent Pertinent Medications Daptomycin 400mg IV x 1 on 02/27. Assessment & Plan Vancomycin: Patient received 1500mg IV loading dose (~22mg/kg) on 02/27 with a random level this AM. This drug level is: Therapeutic (14.4mcg/ml) Dosed patient with 1000mg as one time dose at 1400 today (~15mg/kg) due to poor renal fx. Goal trough level estimate: between 15 - 20 mcg/mL. Random level has been ordered for: 03/01 with AM labs--will evaluate and reorder doses at that time. Pharmacy will continue to follow and will adjust dose/frequency as necessary. Thank you
[2017-02-28 16:53] LABS: ALB/GLOB RATIO 0.5 (0.9-2); PHOSPHORUS 3.6 mg/dl (2.5-4.9)
[2017-02-28] MEDS ORDERED: CALCIUM CHLORIDE 10% 10 ML SYR IV STA (16:53)
--- NOTE | 2017-02-28 16:53 | Progress Note ---
Subjective Date of Service: Feb 28, 2017. Subjective Pt evaluation today including: review of studies, conversation w/ sales consultant residential manager pt with ct with initial reading of no calcifications in g/u tract but could not r/o l distal stone . Asked for second opinion from Dr. Vargas after discussing another pt and becauce of paucity of fat it makes it impossible to identify the distal ureter but his impression was the stone was likely below the ureter. Pt has improving wbc and creatinine. Given his recent elevated tropinianesthesia is extremely dangerous. IPt has no definite stone hx and no recent hx of flank pain. Inclined to observe . If he gets worse he would need to be yransfered to a tertiary care center for a percutaneous nephrosomy and antegrade study Problem List Medical Problems: (1) DKA (diabetic ketoacidoses) Status: Acute (2) Urinary tract infection Status: Acute Objective Vital Signs Date Time Temp Pulse Resp B/P (MAP) Pulse Ox O2 Delivery O2 Flow Rate FiO2 02/28/17 16:00 95 Nasal Cannula 2.0 02/28/17 15:00 109 20 93/57 (69) 96 02/28/17 14:30 109 19 95/55 (68) 02/28/17 14:15 111 19 99/58 (72) 02/28/17 14:00 89 20 85/50 (62) 02/28/17 13:45 90 21 91/54 (66) 02/28/17 13:32 93 24 83/48 (60) 02/28/17 13:00 96 23 96/56 (69) 93 02/28/17 12:45 100 34 90/51 (64) 96 02/28/17 12:45 36.5 101 28 90/51 (64) 96 Room Air 02/28/17 12:30 99 23 88/48 (61) 96 02/28/17 12:15 98 30 88/48 (61) 96 02/28/17 12:00 95 Nasal Cannula 2.0 02/28/17 12:00 96 23 100/55 (70) 95 Room Air 02/28/17 11:45 93 28 96/53 (67) 97 02/28/17 11:30 96 32 109/63 (78) 96 02/28/17 11:15 98 31 108/62 (77) 96 02/28/17 11:04 101 25 112/64 (80) 96 02/28/17 10:30 101 25 119/75 (90) 96 02/28/17 10:15 102 23 117/66 (83) 97 02/28/17 10:00 99 21 120/67 (84) 95 02/28/17 09:45 95 21 114/64 (81) 96 02/28/17 09:30 113 32 125/77 (93) 94 02/28/17 09:16 114 33 129/74 (92) 97 02/28/17 09:15 112 27 97 02/28/17 09:01 93 26 96/55 (69) 97 02/28/17 09:00 36.6 92 23 98 02/28/17 08:45 92 19 112/65 (81) 97 02/28/17 08:30 92 27 111/65 (80) 98 02/28/17 08:16 93 22 92/57 (69) 96 02/28/17 08:15 93 22 97 02/28/17 08:00 36.8 92 22 109/64 (79) 96 02/28/17 08:00 95 Nasal Cannula 2.0 02/28/17 07:46 93 30 110/64 (79) 98 02/28/17 07:45 94 25 98 02/28/17 07:30 93 33 110/54 (72) 97 02/28/17 06:00 94 33 99/60 (73) 97 02/28/17 05:46 96 27 93/57 (69) 98 02/28/17 05:31 97 23 92/58 (69) 98 02/28/17 05:15 97 21 97/58 (71) 97 02/28/17 05:00 93 33 87/54 (65) 96 02/28/17 04:46 95 43 91/57 (68) 98 02/28/17 04:30 92 24 91/57 (68) 97 02/28/17 04:15 93 27 86/53 (64) 98 02/28/17 04:11 36.8 93 27 83/53 (63) 98 02/28/17 04:00 98 Nasal Cannula 2.0 02/28/17 03:45 92 23 90/60 (70) 96 02/28/17 03:30 95 23 93/60 (71) 98 02/28/17 03:15 92 31 78/51 (60) 98 02/28/17 03:00 92 21 74/54 (61) 99 02/28/17 02:45 92 23 83/54 (64) 99 02/28/17 02:30 92 29 84/53 (63) 99 02/28/17 02:15 92 26 87/55 (66) 02/28/17 02:00 90 26 84/52 (63) 100 02/28/17 01:45 92 22 88/52 (64) 99 02/28/17 01:30 114 23 99/58 (72) 02/28/17 01:15 93 21 84/51 (62) 99 02/28/17 01:00 94 21 87/53 (64) 98 02/28/17 00:45 95 26 92/55 (67) 99 02/28/17 00:30 94 19 95/57 (70) 98 02/28/17 00:15 96 22 106/58 (74) 100 02/28/17 00:00 36.5 95 25 103/55 (71) 100 Nasal Cannula 2.0 02/27/17 23:59 98 Nasal Cannula 2.0 02/27/17 23:46 93 26 91/56 (68) 98 02/27/17 23:30 91 26 84/51 (62) 97 02/27/17 23:15 92 26 88/57 (67) 88 02/27/17 23:00 90 33 83/51 (62) 95 02/27/17 22:45 90 23 79/51 (60) 97 02/27/17 22:39 88 22 77/47 (57) 95 02/27/17 22:33 90 21 79/49 (59) 97 02/27/17 22:30 90 22 77/47 (57) 95 02/27/17 22:15 88 29 81/47 (58) 97 02/27/17 22:00 92 25 86/52 (63) 97 02/27/17 21:53 91 19 81/49 (60) 02/27/17 21:45 91 25 78/47 (57) 100 02/27/17 21:39 36.4 91 29 69/42 (51) 02/27/17 21:19 78/49 (59) 02/27/17 21:04 93 78/53 (61) 02/27/17 21:00 69/46 (54) 02/27/17 20:48 74/47 (56) 81/51 (61) 02/27/17 20:00 97 Nasal Cannula 2.0 02/27/17 20:00 36.5 102 20 81/51 (61) 100 Nasal Cannula 2.0 02/27/17 19:00 98 Nasal Cannula 2.0 Laboratory Results Last 24 Hours Test 02/27/17 19:45 02/27/17 21:14 02/27/17 21:15 02/27/17 21:25 Bedside Glucose 340 mg/dl 387 mg/dl Sodium Level 134 mmol/L Potassium Level 5.3 mmol/L Chloride Level 102 mmol/L Carbon Dioxide Level 14 mmol/L Anion Gap 18.0 mmol/L Blood Urea Nitrogen 109 mg/dl Creatinine 3.30 mg/dl Est Creatinine Clear Calc Drug Dose 20.3 ml/min Estimated GFR () 20.9 Estimated GFR (Non- 18.1 BUN/Creatinine Ratio 33.0 Random Glucose 385 mg/dl Calcium Level 7.8 mg/dl Troponin I 0.312 ng/ml Beta-Hydroxybutyric Acid 68.84 mg/dL Hemoglobin 8.6 g/dL Hematocrit 26.7 % Lactic Acid Level 1.8 mmol/L Test 02/27/17 21:58 02/28/17 00:02 02/28/17 00:37 02/28/17 01:48 Blood Gas Sample Site R Radial Bedside Blood Gas pH (LAB) 7.26 Bedside Blood Gas pCO2 (LAB) 22 mmHg Bedside Blood Gas pO2 (LAB) 97 mmHg Bedside Blood Gas HCO3 (LAB) 10 meq/L Bedside Blood Gas Total CO2 10 mEq/l Bedside Blood Gas Base Excess (LAB) -18.0 meq/L Bedside Blood Gas O2 Saturation 97.0 % Enrique Test Pass Oxygen Delivery Device Cannula White Blood Count 46.29 K/uL Red Blood Count 2.93 M/uL Hemoglobin 8.8 g/dL Hematocrit 27.5 % Mean Corpuscular Volume 93.9 fL Mean Corpuscular Hemoglobin 30.0 pg Mean Corpuscular Hemoglobin Concent 32.0 g/dl Platelet Count 997 K/uL Mean Platelet Volume 9.4 fL RDW Standard Deviation 52.7 fL RDW Coefficient of Variation 15.3 % Neutrophils % (Manual) 93.0 % Lymphocytes % (Manual) 0.0 % Monocytes % (Manual) 6.1 % Metamyelocytes % 0.9 % Neutrophils # (Manual) 43.05 K/uL Total Absolute Neutrophils 43.05 K/uL Total Absolute Lymphocytes 0.00 K/uL Monocytes # (Manual) 2.82 K/uL Metamyelocytes # 0.42 K/uL Dohle Bodies 1+ Echinocytes 1+ Rouleau 1+ Venous Blood pH 7.22 Sodium Level 135 mmol/L Potassium Level 4.9 mmol/L Chloride Level 102 mmol/L Carbon Dioxide Level 15 mmol/L Anion Gap 18.0 mmol/L Blood Urea Nitrogen 105 mg/dl Creatinine 3.40 mg/dl Est Creatinine Clear Calc Drug Dose 19.7 ml/min Estimated GFR () 20.2 Estimated GFR (Non- 17.4 BUN/Creatinine Ratio 30.9 Random Glucose 366 mg/dl Lactic Acid Level 1.5 mmol/L Calcium Level 7.7 mg/dl Ionized Calcium 1.00 mmol/l Phosphorus Level 6.8 mg/dl Magnesium Level 2.1 mg/dl Total Bilirubin 0.7 mg/dl Aspartate Amino Transf (AST/SGOT) 34 U/L Alanine Aminotransferase (ALT/SGPT) 19 U/L Alkaline Phosphatase 239 U/L Troponin I 3.260 ng/ml Total Protein 7.6 gm/dl Albumin 2.2 gm/dl Globulin 5.4 gm/dl Albumin/Globulin Ratio 0.4 Prostate Specific Antigen 0.266 ng/ml Beta-Hydroxybutyric Acid 62.56 mg/dL Bedside Glucose (other) 343 mg/dl 334 mg/dl Test 02/28/17 02:44 02/28/17 03:33 02/28/17 04:45 02/28/17 04:49 Bedside Glucose (other) 327 mg/dl 320 mg/dl 314 mg/dl White Blood Count 38.83 K/uL Red Blood Count 2.71 M/uL Hemoglobin 8.4 g/dL Hematocrit 24.7 % Mean Corpuscular Volume 91.1 fL Mean Corpuscular Hemoglobin 31.0 pg Mean Corpuscular Hemoglobin Concent 34.0 g/dl Platelet Count 942 K/uL Mean Platelet Volume 9.1 fL Neutrophils (%) (Auto) 90.6 % Lymphocytes (%) (Auto) 6.2 % Monocytes (%) (Auto) 1.7 % Eosinophils (%) (Auto) 0.1 % Basophils (%) (Auto) 0.1 % Neutrophils # (Auto) 35.19 K/uL Lymphocytes # (Auto) 2.41 K/uL Monocytes # (Auto) 0.66 K/uL Eosinophils # (Auto) 0.05 K/uL Basophils # (Auto) 0.02 K/uL RDW Standard Deviation 51.5 fL RDW Coefficient of Variation 15.2 % Immature Granulocyte % (Auto) 1.3 % Immature Granulocyte # (Auto) 0.50 K/uL Dohle Bodies 1+ Venous Blood pH 7.30 Sodium Level 134 mmol/L Potassium Level 4.8 mmol/L Chloride Level 103 mmol/L Carbon Dioxide Level 17 mmol/L Anion Gap 14.0 mmol/L Blood Urea Nitrogen 105 mg/dl Creatinine 3.40 mg/dl Est Creatinine Clear Calc Drug Dose 19.7 ml/min Estimated GFR () 20.2 Estimated GFR (Non- 17.4 BUN/Creatinine Ratio 31.0 Random Glucose 312 mg/dl Lactic Acid Level 1.7 mmol/L Calcium Level 7.5 mg/dl Ionized Calcium 0.97 mmol/l Phosphorus Level 6.5 mg/dl Magnesium Level 2.1 mg/dl Total Bilirubin 0.8 mg/dl Aspartate Amino Transf (AST/SGOT) 122 U/L Alanine Aminotransferase (ALT/SGPT) 27 U/L Alkaline Phosphatase 383 U/L Troponin I 40.000 ng/ml Total Protein 6.9 gm/dl Albumin 1.9 gm/dl Globulin 5.0 gm/dl Albumin/Globulin Ratio 0.4 Beta-Hydroxybutyric Acid 19.30 mg/dL Test 02/28/17 05:59 02/28/17 07:41 02/28/17 09:11 02/28/17 09:28 Bedside Glucose (other) 303 mg/dl 273 mg/dl 266 mg/dl Random Vancomycin Level 14.4 mcg/ml Test 02/28/17 10:30 02/28/17 11:25 02/28/17 11:34 02/28/17 12:32 Bedside Glucose (other) 243 mg/dl 228 mg/dl 203 mg/dl White Blood Count 35.97 K/uL Red Blood Count 2.79 M/uL Hemoglobin 8.4 g/dL Hematocrit 25.2 % Mean Corpuscular Volume 90.3 fL Mean Corpuscular Hemoglobin 30.1 pg Mean Corpuscular Hemoglobin Concent 33.3 g/dl Platelet Count 906 K/uL Mean Platelet Volume 9.0 fL Neutrophils (%) (Auto) 91.6 % Lymphocytes (%) (Auto) 5.2 % Monocytes (%) (Auto) 1.9 % Eosinophils (%) (Auto) 0.3 % Basophils (%) (Auto) 0.1 % Neutrophils # (Auto) 32.97 K/uL Lymphocytes # (Auto) 1.88 K/uL Monocytes # (Auto) 0.67 K/uL Eosinophils # (Auto) 0.10 K/uL Basophils # (Auto) 0.02 K/uL RDW Standard Deviation 50.0 fL RDW Coefficient of Variation 15.0 % Immature Granulocyte % (Auto) 0.9 % Immature Granulocyte # (Auto) 0.33 K/uL Red Blood Cell Morphology Unremarkable Venous Blood pH 7.36 Sodium Level 137 mmol/L Potassium Level 4.1 mmol/L Chloride Level 107 mmol/L Carbon Dioxide Level 19 mmol/L Anion Gap 11.0 mmol/L Blood Urea Nitrogen 97 mg/dl Creatinine 2.80 mg/dl Est Creatinine Clear Calc Drug Dose 23.9 ml/min Estimated GFR () 25.5 Estimated GFR (Non- 22.0 BUN/Creatinine Ratio 34.6 Random Glucose 226 mg/dl Lactic Acid Level 1.4 mmol/L Calcium Level 7.2 mg/dl Ionized Calcium 0.96 mmol/l Phosphorus Level 4.3 mg/dl Magnesium Level 1.9 mg/dl Total Bilirubin 0.5 mg/dl Aspartate Amino Transf (AST/SGOT) 140 U/L Alanine Aminotransferase (ALT/SGPT) 31 U/L Alkaline Phosphatase 336 U/L Troponin I 48.200 ng/ml Total Protein 6.8 gm/dl Albumin 1.9 gm/dl Globulin 4.9 gm/dl Albumin/Globulin Ratio 0.4 Procalcitonin 10.98 ng/ml Test 02/28/17 13:41 02/28/17 13:46 02/28/17 14:53 02/28/17 15:59 Bedside Glucose (other) 167 mg/dl 163 mg/dl 149 mg/dl White Blood Count 27.57 K/uL Red Blood Count 2.47 M/uL Hemoglobin 7.5 g/dL Hematocrit 22.2 % Mean Corpuscular Volume 89.9 fL Mean Corpuscular Hemoglobin 30.4 pg Mean Corpuscular Hemoglobin Concent 33.8 g/dl Platelet Count 686 K/uL Mean Platelet Volume 8.6 fL Neutrophils (%) (Auto) 89.0 % Lymphocytes (%) (Auto) 3.3 % Monocytes (%) (Auto) 6.0 % Eosinophils (%) (Auto) 0.5 % Basophils (%) (Auto) 0.0 % Neutrophils # (Auto) 24.53 K/uL Lymphocytes # (Auto) 0.92 K/uL Monocytes # (Auto) 1.65 K/uL Eosinophils # (Auto) 0.14 K/uL Basophils # (Auto) 0.01 K/uL RDW Standard Deviation 49.7 fL RDW Coefficient of Variation 15.1 % Immature Granulocyte % (Auto) 1.2 % Immature Granulocyte # (Auto) 0.32 K/uL Dohle Bodies 1+ Venous Blood pH 7.34 Sodium Level 140 mmol/L Potassium Level 3.9 mmol/L Chloride Level 110 mmol/L Carbon Dioxide Level 20 mmol/L Anion Gap 10.0 mmol/L Blood Urea Nitrogen 91 mg/dl Creatinine 2.50 mg/dl Est Creatinine Clear Calc Drug Dose 26.8 ml/min Estimated GFR () 29.3 Estimated GFR (Non- 25.3 BUN/Creatinine Ratio 36.4 Random Glucose 154 mg/dl Calcium Level 7.3 mg/dl Ionized Calcium 0.99 mmol/l Magnesium Level 1.8 mg/dl Alanine Aminotransferase (ALT/SGPT) 26 U/L Albumin 2.0 gm/dl Assessment and Plan pt is improved but critically ill Observe creatinine and recovery . Unlikely to have distal stone but if he fails to make progress or complained of l flank pain then perc nephrostomy indicated
[2017-02-28] MEDS ORDERED: INSULIN GLARGINE SOLOSTAR 100 UNITS/ML 3 ML PEN SC SCH (17:00)
[2017-02-28] MEDS ORDERED: MAGNESIUM SULFATE 1GM / D5W 1 GM in PREMIXED IN D5W 100 ML IV SCH (17:20)
[2017-02-28] MEDS ORDERED: DC IV INSULIN INFUSION SCH (18:00)
[2017-02-28] MEDS: ENOXAPARIN 30 MG/0.3 ML SYR SC SCH (18:07)
[2017-02-28 18:54] LABS: FERRITIN 1188.3 ng/ml (8.0-388.0); TOTAL IRON BINDING CAPACITY 85 mcg/dl (250-450)
[2017-02-28 20:33] LABS: ALB/GLOB RATIO 0.5 (0.9-2); BUN/CREATININE RATIO 38.1 (10-20); CALCIUM 8.1 mg/dl (8.5-10.1); CREATININE 2.3 mg/dl (0.60-1.40); MAGNESIUM 2.1 mg/dl (1.8-2.4)
[2017-02-28 20:40] LABS: PHOSPHORUS 3.3 mg/dl (2.5-4.9)
[2017-02-28] MEDS ORDERED: INSULIN ASPART 100 UNITS/ML 3 ML PEN SC SCH (21:00)
[2017-03-01] VITALS (34 sets, daily range): BP systolic 93–124; BP diastolic 43–83; PULSE 83–116; TEMP 36.4–37.7; O2SAT 93–99
[2017-03-01 03:32] LABS: HEMATOCRIT 27.6 % (42-52); MEAN CELL VOLUME 87.6 fL (80-100); MEAN CORPUSCULAR HEMOGLOBIN 30.2 pg (25-34); MEAN CORPUSCULAR HGB CONC 34.4 g/dl (32-36); MEAN PLATELET VOLUME 8.9 fL (7.4-10.4); PLATELET COUNT 646 K/uL (130-400); RED BLOOD COUNT 3.15 M/uL (4.7-6.1); WHITE BLOOD COUNT 27.22 K/uL (4.8-10.8)
[2017-03-01 03:54] LABS: BASO % 0.1 %; BASO ABS # 0.02 K/uL (0-0.2); COMPLETE YES; EOS % 0.5 %; IG% 1.2 %; LYMPH % 3.5 %; LYMPH ABS # 0.95 K/uL (1.2-3.4); MONO % 5.6 %; NEUT % 89.1 %
[2017-03-01 04:53] LABS: HEMATOCRIT 26.7 % (42-52); MEAN CELL VOLUME 88.1 fL (80-100); MEAN CORPUSCULAR HEMOGLOBIN 30.7 pg (25-34); MEAN CORPUSCULAR HGB CONC 34.8 g/dl (32-36); PLATELET COUNT 629 K/uL (130-400); RED BLOOD COUNT 3.03 M/uL (4.7-6.1); WHITE BLOOD COUNT 26.07 K/uL (4.8-10.8)
[2017-03-01 04:58] LABS: VEN BLD GAS O2 SATURATION 69.8 %; VEN BLOOD GAS BASE EXCESS -5.8 mEq/L
[2017-03-01 05:22] LABS: BUN/CREATININE RATIO 34.6 (10-20); CALCIUM 7.7 mg/dl (8.5-10.1); CREATININE 2.1 mg/dl (0.60-1.40); POTASSIUM 3.9 mmol/L (3.5-5.1)
[2017-03-01 05:25] LABS: ALB/GLOB RATIO 0.4 (0.9-2); PHOSPHORUS 2.9 mg/dl (2.5-4.9)
[2017-03-01 05:43] LABS: BASO % 0.1 %; BASO ABS # 0.03 K/uL (0-0.2); COMPLETE YES; ECHINOCYTES 1+; EOS % 0.6 %; IG% 1.5 %; LYMPH % 3.6 %; LYMPH ABS # 0.94 K/uL (1.2-3.4); MONO % 6.5 %; NEUT % 87.7 %
[2017-03-01] MEDS: SODIUM CHLORIDE 0.9% 1000ML 1,000 ML IV SCH ×2 (05:49→16:55)
[2017-03-01] MEDS: INSULIN ASPART 100 UNITS/ML 3 ML PEN SC SCH ×4 (05:49→20:53)
[2017-03-01] MEDS: ACETAMINOPHEN 325 MG TAB PO PRN ×2 (05:56→20:31)
[2017-03-01] MEDS: PIPERACILL/TAZOBAC IV 3.375 GM in DEXTROSE 5% 100ML 100 ML IV SCH ×3 (06:57→23:47)
[2017-03-01] MEDS: ASPIRIN 81 MG ECTAB PO SCH (06:58)
[2017-03-01] MEDS: CHOLECALCIFEROL 1000 INTER.UNIT TAB PO SCH (06:59)
[2017-03-01] MEDS: CYANOCOBALAMIN 500 MCG TAB (VIT B-12) PO SCH (06:59)
[2017-03-01] MEDS: TAMSULOSIN HCL 0.4 MG CAP PO SCH (06:59)
[2017-03-01] MEDS: BOOST GLUCOSE CONTROL PO SCH ×3 (07:01→20:53)
[2017-03-01] MEDS: FAMOTIDINE IV INJ 20 MG in DEXTROSE 5% 100ML 100 ML IV SCH (08:28)
[2017-03-01] MEDS ORDERED: INSULIN GLARGINE SOLOSTAR 100 UNITS/ML 3 ML PEN SC STA (08:37)
[2017-03-01] MEDS ORDERED: NURSING VERBAL MED ORDER ONE (09:00)
[2017-03-01] MEDS ORDERED: BOOST GLUCOSE CONTROL PO STA (09:08)
[2017-03-01 09:35] LABS: CKMB/CK RATIO 5.4 (0-3.0)
--- NOTE | 2017-03-01 10:41 | Pharmacy Progress Note ---
Pharmacy Antibiotic Prog Note Date of Service Mar 01, 2017. Subjective The patient is currently receiving vancomycin as pharmacy consult: 1500mg load on 02/27, 1000mg X 1 on 02/28 (rapidly changing renal fx). The patient is currently on day # 3 of vancomycin and Zosyn IV therapy for septic shock. Objective Height (Feet): 5 Height (Inches): 11.00 Weight (Kilograms): 72.700 Lab Results (24hrs): Test 02/28/17 11:25 02/28/17 15:59 02/28/17 20:02 02/28/17 22:23 Red Blood Cell Morphology Unremarkable Lactic Acid Level 1.4 mmol/L (0.4-2.0) Procalcitonin 10.98 ng/ml (0-0.5) Dohle Bodies 1+ Ionized Calcium 0.99 mmol/l (1.12-1.32) 1.12 mmol/l (1.12-1.32) Total Iron Binding Capacity 85 mcg/dl (250-450) Transferrin 59 mg/dl (200-360) Transferrin % Saturation % (20-50) Ferritin 1188.3 ng/ml (8.0-388.0) Total Creatine Kinase 357 U/L (39-308) Venous Blood pH 7.36 (7.36-7.41) Sodium Level 139 mmol/L (136-145) Potassium Level 4.0 mmol/L (3.5-5.1) Chloride Level 110 mmol/L (98-107) Carbon Dioxide Level 19 mmol/L (21-32) Anion Gap 10.0 mmol/L (3-11) Blood Urea Nitrogen 88 mg/dl (7-18) Creatinine 2.30 mg/dl (0.60-1.40) Est Creatinine Clear Calc Drug Dose 29.2 ml/min Estimated GFR () 32.4 Estimated GFR (Non- 27.9 BUN/Creatinine Ratio 38.1 (10-20) Random Glucose 226 mg/dl (70-99) Calcium Level 8.1 mg/dl (8.5-10.1) Phosphorus Level 3.3 mg/dl (2.5-4.9) Magnesium Level 2.1 mg/dl (1.8-2.4) Total Bilirubin 0.5 mg/dl (0.2-1) Aspartate Amino Transf (AST/SGOT) 91 U/L (15-37) Alanine Aminotransferase (ALT/SGPT) 28 U/L (12-78) Alkaline Phosphatase 278 U/L (45-117) Troponin I 24.500 ng/ml (0-0.045) Total Protein 6.4 gm/dl (6.4-8.2) Albumin 2.2 gm/dl (3.4-5.0) Globulin 4.2 gm/dl (2.5-4.0) Albumin/Globulin Ratio 0.5 (0.9-2) Bedside Glucose (other) 235 mg/dl (70-99) Test 03/01/17 00:05 03/01/17 03:24 03/01/17 04:34 03/01/17 07:50 Bedside Glucose (other) 221 mg/dl (70-99) White Blood Count 27.22 K/uL (4.8-10.8) 26.07 K/uL (4.8-10.8) Red Blood Count 3.15 M/uL (4.7-6.1) 3.03 M/uL (4.7-6.1) Hemoglobin 9.5 g/dL (14.0-18.0) 9.3 g/dL (14.0-18.0) Hematocrit 27.6 % (42-52) 26.7 % (42-52) Mean Corpuscular Volume 87.6 fL (80-100) 88.1 fL (80-100) Mean Corpuscular Hemoglobin 30.2 pg (25-34) 30.7 pg (25-34) Mean Corpuscular Hemoglobin Concent 34.4 g/dl (32-36) 34.8 g/dl (32-36) Platelet Count 646 K/uL (130-400) 629 K/uL (130-400) Mean Platelet Volume 8.9 fL (7.4-10.4) 9.0 fL (7.4-10.4) Neutrophils (%) (Auto) 89.1 % 87.7 % Lymphocytes (%) (Auto) 3.5 % 3.6 % Monocytes (%) (Auto) 5.6 % 6.5 % Eosinophils (%) (Auto) 0.5 % 0.6 % Basophils (%) (Auto) 0.1 % 0.1 % Neutrophils # (Auto) 24.25 K/uL (1.4-6.5) 22.85 K/uL (1.4-6.5) Lymphocytes # (Auto) 0.95 K/uL (1.2-3.4) 0.94 K/uL (1.2-3.4) Monocytes # (Auto) 1.53 K/uL (0.11-0.59) 1.70 K/uL (0.11-0.59) Eosinophils # (Auto) 0.14 K/uL (0-0.5) 0.15 K/uL (0-0.5) Basophils # (Auto) 0.02 K/uL (0-0.2) 0.03 K/uL (0-0.2) RDW Standard Deviation 49.4 fL (36.4-46.3) 50.4 fL (36.4-46.3) RDW Coefficient of Variation 15.4 % (11.5-14.5) 15.5 % (11.5-14.5) Immature Granulocyte % (Auto) 1.2 % 1.5 % Immature Granulocyte # (Auto) 0.33 K/uL (0.00-0.02) 0.40 K/uL (0.00-0.02) Nucleated RBC Absolute Count (auto) 0.02 K/uL (0-0) Nucleated Red Blood Cells % 0.1 % Echinocytes 1+ Venous Blood pH 7.36 (7.36-7.41) Venous Blood Partial Pressure CO2 35 mmHg (38.0-50.0) Venous Blood Partial Pressure O2 38 mmHg Venous Blood HCO3 19 mmol/L Venous Blood Oxygen Saturation 69.8 % Venous Blood Base Excess -5.8 mEq/L Sodium Level 140 mmol/L (136-145) Potassium Level 3.9 mmol/L (3.5-5.1) Chloride Level 112 mmol/L (98-107) Carbon Dioxide Level 19 mmol/L (21-32) Anion Gap 9.0 mmol/L (3-11) Blood Urea Nitrogen 73 mg/dl (7-18) Creatinine 2.10 mg/dl (0.60-1.40) Est Creatinine Clear Calc Drug Dose 31.9 ml/min Estimated GFR () 36.1 Estimated GFR (Non- 31.2 BUN/Creatinine Ratio 34.6 (10-20) Random Glucose 198 mg/dl (70-99) Lactic Acid Level 1.3 mmol/L (0.4-2.0) Calcium Level 7.7 mg/dl (8.5-10.1) Phosphorus Level 2.9 mg/dl (2.5-4.9) Magnesium Level 2.0 mg/dl (1.8-2.4) Total Bilirubin 0.8 mg/dl (0.2-1) Aspartate Amino Transf (AST/SGOT) 92 U/L (15-37) Alanine Aminotransferase (ALT/SGPT) 38 U/L (12-78) Alkaline Phosphatase 268 U/L (45-117) Total Creatine Kinase 139 U/L (39-308) Creatine Kinase MB 7.5 ng/ml (0.5-3.6) Creatine Kinase MB Ratio 5.4 (0-3.0) Troponin I 14.700 ng/ml (0-0.045) Total Protein 6.3 gm/dl (6.4-8.2) Albumin 1.9 gm/dl (3.4-5.0) Globulin 4.4 gm/dl (2.5-4.0) Albumin/Globulin Ratio 0.4 (0.9-2) Procalcitonin 7.06 ng/ml (0-0.5) Random Vancomycin Level 15.3 mcg/ml Stool Occult Blood POSITIVE (NEGATIVE) Assessment & Plan Vancomycin random level this AM: 15.3mcg/ml. Renal fx improving daily (CrCl 32ml/min today). Change to scheduled dosing: vancomycin 1000 mg IV every 24 hours. Goal trough level estimate: between 15 - 20 mcg/mL. Peak and trough or random level has been ordered for: 03/03 prior to 1100 dose , but will closely monitor pt's renal fx and make adjustments as indicated. Pharmacy will continue to follow and will adjust dose/frequency as necessary. Thank you
[2017-03-01] MEDS: VANCOMYCIN INJ 1,000 MG in SODIUM CHLORIDE 0.9% 250ML 250 ML IV SCH (10:53)
--- NOTE | 2017-03-01 10:55 | Cardiology Follow-Up ---
Subjective Date of Service: Mar 01, 2017. Pt evaluation today including: conversation w/ patient, conversation w/ family , physical exam, chart review, lab review, review of studies, conversation w/ practice management consultant History of Present Illness This morning the patient claims to be feeling well. He states that his breathing is normal. He has no symptoms of chest discomfort. He did have some mild back discomfort which improved with a change in position. He denies any sense of racing heartbeat or palpitation. He has not been out of bed. Social History Smoking Status: Former Smoker History of Alcohol Use: Yes (OCC ) Review of Systems Respiratory: No cough, No sputum, No shortness of breath, No dyspnea on exertion Cardiac: No chest pain, No orthopnea, No edema Objective Vital Signs Past 12 Hours Date Time Temp Pulse Resp B/P (MAP) Pulse Ox O2 Delivery O2 Flow Rate FiO2 03/01/17 09:15 113 20 111/60 (77) 94 Room Air 03/01/17 08:30 94 20 103/59 (74) 94 Room Air 03/01/17 08:23 97 22 101/43 (62) 95 Room Air 03/01/17 08:00 95 20 93/44 (60) 96 Room Air 03/01/17 07:13 95 Nasal Cannula 2.0 03/01/17 07:13 36.8 83 20 98/58 (71) 96 Room Air 03/01/17 06:00 84 20 104/61 (75) 96 Room Air 03/01/17 04:00 36.4 87 18 109/60 (76) 94 Room Air 03/01/17 04:00 94 Room Air 03/01/17 02:00 88 19 99/55 (70) 94 Room Air 03/01/17 00:20 36.5 90 20 99/66 95 03/01/17 00:01 36.5 89 22 104/61 (75) 95 Room Air 02/28/17 23:59 95 Room Air 02/28/17 23:54 36.4 90 20 114/64 95 02/28/17 22:55 36.8 91 24 110/63 94 Last Recorded Weight-Kilograms: 72.700 Physical Exam The patient is alert and oriented. Mood and affect appeared normal. He answered all questions appropriately. HEENT: Pupils are equal and reactive to light and accommodation. Extraocular movements are intact. The sclerae are anicteric. Neuro: Cranial nerves intact Neck: Patient's neck is supple. He has palpable carotid pulses bilaterally without bruits on auscultation. There is no evidence of jugular venous distention. The thyroid is not enlarged. Lungs: Clear to auscultation bilaterally. He has good air movement without use of accessory muscles. No rales wheezes or rhonchi. Cardiac: Heart demonstrates a regular rate and rhythm. Normal S1 and S2. Holosystolic murmur. Pulses: The patient has palpable radial pulses bilaterally that are equal in intensity Extremities: There was no evidence of hypoperfusion. There is no cyanosis or clubbing. There is no edema. Skin: I did not appreciate any rashes on examination today. Data Laboratory Results: Last 24 Hours Test 02/28/17 11:25 02/28/17 11:34 02/28/17 12:32 02/28/17 13:41 White Blood Count 35.97 K/uL Red Blood Count 2.79 M/uL Hemoglobin 8.4 g/dL Hematocrit 25.2 % Mean Corpuscular Volume 90.3 fL Mean Corpuscular Hemoglobin 30.1 pg Mean Corpuscular Hemoglobin Concent 33.3 g/dl Platelet Count 906 K/uL Mean Platelet Volume 9.0 fL Neutrophils (%) (Auto) 91.6 % Lymphocytes (%) (Auto) 5.2 % Monocytes (%) (Auto) 1.9 % Eosinophils (%) (Auto) 0.3 % Basophils (%) (Auto) 0.1 % Neutrophils # (Auto) 32.97 K/uL Lymphocytes # (Auto) 1.88 K/uL Monocytes # (Auto) 0.67 K/uL Eosinophils # (Auto) 0.10 K/uL Basophils # (Auto) 0.02 K/uL RDW Standard Deviation 50.0 fL RDW Coefficient of Variation 15.0 % Immature Granulocyte % (Auto) 0.9 % Immature Granulocyte # (Auto) 0.33 K/uL Red Blood Cell Morphology Unremarkable Venous Blood pH 7.36 Sodium Level 137 mmol/L Potassium Level 4.1 mmol/L Chloride Level 107 mmol/L Carbon Dioxide Level 19 mmol/L Anion Gap 11.0 mmol/L Blood Urea Nitrogen 97 mg/dl Creatinine 2.80 mg/dl Est Creatinine Clear Calc Drug Dose 23.9 ml/min Estimated GFR () 25.5 Estimated GFR (Non- 22.0 BUN/Creatinine Ratio 34.6 Random Glucose 226 mg/dl Lactic Acid Level 1.4 mmol/L Calcium Level 7.2 mg/dl Ionized Calcium 0.96 mmol/l Phosphorus Level 4.3 mg/dl Magnesium Level 1.9 mg/dl Total Bilirubin 0.5 mg/dl Aspartate Amino Transf (AST/SGOT) 140 U/L Alanine Aminotransferase (ALT/SGPT) 31 U/L Alkaline Phosphatase 336 U/L Troponin I 48.200 ng/ml Total Protein 6.8 gm/dl Albumin 1.9 gm/dl Globulin 4.9 gm/dl Albumin/Globulin Ratio 0.4 Procalcitonin 10.98 ng/ml Bedside Glucose (other) 228 mg/dl 203 mg/dl 167 mg/dl Test 02/28/17 13:46 02/28/17 14:53 02/28/17 15:59 02/28/17 20:02 Bedside Glucose (other) 163 mg/dl 149 mg/dl White Blood Count 27.57 K/uL Red Blood Count 2.47 M/uL Hemoglobin 7.5 g/dL Hematocrit 22.2 % Mean Corpuscular Volume 89.9 fL Mean Corpuscular Hemoglobin 30.4 pg Mean Corpuscular Hemoglobin Concent 33.8 g/dl Platelet Count 686 K/uL Mean Platelet Volume 8.6 fL Neutrophils (%) (Auto) 89.0 % Lymphocytes (%) (Auto) 3.3 % Monocytes (%) (Auto) 6.0 % Eosinophils (%) (Auto) 0.5 % Basophils (%) (Auto) 0.0 % Neutrophils # (Auto) 24.53 K/uL Lymphocytes # (Auto) 0.92 K/uL Monocytes # (Auto) 1.65 K/uL Eosinophils # (Auto) 0.14 K/uL Basophils # (Auto) 0.01 K/uL RDW Standard Deviation 49.7 fL RDW Coefficient of Variation 15.1 % Immature Granulocyte % (Auto) 1.2 % Immature Granulocyte # (Auto) 0.32 K/uL Dohle Bodies 1+ Venous Blood pH 7.34 7.36 Sodium Level 140 mmol/L 139 mmol/L Potassium Level 3.9 mmol/L 4.0 mmol/L Chloride Level 110 mmol/L 110 mmol/L Carbon Dioxide Level 20 mmol/L 19 mmol/L Anion Gap 10.0 mmol/L 10.0 mmol/L Blood Urea Nitrogen 91 mg/dl 88 mg/dl Creatinine 2.50 mg/dl 2.30 mg/dl Est Creatinine Clear Calc Drug Dose 26.8 ml/min 29.2 ml/min Estimated GFR () 29.3 32.4 Estimated GFR (Non- 25.3 27.9 BUN/Creatinine Ratio 36.4 38.1 Random Glucose 154 mg/dl 226 mg/dl Calcium Level 7.3 mg/dl 8.1 mg/dl Ionized Calcium 0.99 mmol/l 1.12 mmol/l Phosphorus Level 3.6 mg/dl 3.3 mg/dl Magnesium Level 1.8 mg/dl 2.1 mg/dl Total Iron Binding Capacity 85 mcg/dl Transferrin 59 mg/dl Transferrin % Saturation % Ferritin 1188.3 ng/ml Total Bilirubin 0.4 mg/dl 0.5 mg/dl Aspartate Amino Transf (AST/SGOT) 107 U/L 91 U/L Alanine Aminotransferase (ALT/SGPT) 26 U/L 28 U/L Alkaline Phosphatase 284 U/L 278 U/L Total Creatine Kinase 357 U/L Troponin I 32.100 ng/ml 24.500 ng/ml Total Protein 6.3 gm/dl 6.4 gm/dl Albumin 2.0 gm/dl 2.2 gm/dl Globulin 4.3 gm/dl 4.2 gm/dl Albumin/Globulin Ratio 0.5 0.5 Test 02/28/17 20:12 02/28/17 22:23 03/01/17 00:05 03/01/17 03:24 Bedside Glucose (other) 223 mg/dl 235 mg/dl 221 mg/dl White Blood Count 27.22 K/uL Red Blood Count 3.15 M/uL Hemoglobin 9.5 g/dL Hematocrit 27.6 % Mean Corpuscular Volume 87.6 fL Mean Corpuscular Hemoglobin 30.2 pg Mean Corpuscular Hemoglobin Concent 34.4 g/dl Platelet Count 646 K/uL Mean Platelet Volume 8.9 fL Neutrophils (%) (Auto) 89.1 % Lymphocytes (%) (Auto) 3.5 % Monocytes (%) (Auto) 5.6 % Eosinophils (%) (Auto) 0.5 % Basophils (%) (Auto) 0.1 % Neutrophils # (Auto) 24.25 K/uL Lymphocytes # (Auto) 0.95 K/uL Monocytes # (Auto) 1.53 K/uL Eosinophils # (Auto) 0.14 K/uL Basophils # (Auto) 0.02 K/uL RDW Standard Deviation 49.4 fL RDW Coefficient of Variation 15.4 % Immature Granulocyte % (Auto) 1.2 % Immature Granulocyte # (Auto) 0.33 K/uL Nucleated RBC Absolute Count (auto) 0.02 K/uL Nucleated Red Blood Cells % 0.1 % Test 03/01/17 04:34 03/01/17 07:50 White Blood Count 26.07 K/uL Red Blood Count 3.03 M/uL Hemoglobin 9.3 g/dL Hematocrit 26.7 % Mean Corpuscular Volume 88.1 fL Mean Corpuscular Hemoglobin 30.7 pg Mean Corpuscular Hemoglobin Concent 34.8 g/dl Platelet Count 629 K/uL Mean Platelet Volume 9.0 fL Neutrophils (%) (Auto) 87.7 % Lymphocytes (%) (Auto) 3.6 % Monocytes (%) (Auto) 6.5 % Eosinophils (%) (Auto) 0.6 % Basophils (%) (Auto) 0.1 % Neutrophils # (Auto) 22.85 K/uL Lymphocytes # (Auto) 0.94 K/uL Monocytes # (Auto) 1.70 K/uL Eosinophils # (Auto) 0.15 K/uL Basophils # (Auto) 0.03 K/uL RDW Standard Deviation 50.4 fL RDW Coefficient of Variation 15.5 % Immature Granulocyte % (Auto) 1.5 % Immature Granulocyte # (Auto) 0.40 K/uL Echinocytes 1+ Venous Blood pH 7.36 Venous Blood Partial Pressure CO2 35 mmHg Venous Blood Partial Pressure O2 38 mmHg Venous Blood HCO3 19 mmol/L Venous Blood Oxygen Saturation 69.8 % Venous Blood Base Excess -5.8 mEq/L Sodium Level 140 mmol/L Potassium Level 3.9 mmol/L Chloride Level 112 mmol/L Carbon Dioxide Level 19 mmol/L Anion Gap 9.0 mmol/L Blood Urea Nitrogen 73 mg/dl Creatinine 2.10 mg/dl Est Creatinine Clear Calc Drug Dose 31.9 ml/min Estimated GFR () 36.1 Estimated GFR (Non- 31.2 BUN/Creatinine Ratio 34.6 Random Glucose 198 mg/dl Lactic Acid Level 1.3 mmol/L Calcium Level 7.7 mg/dl Phosphorus Level 2.9 mg/dl Magnesium Level 2.0 mg/dl Total Bilirubin 0.8 mg/dl Aspartate Amino Transf (AST/SGOT) 92 U/L Alanine Aminotransferase (ALT/SGPT) 38 U/L Alkaline Phosphatase 268 U/L Total Creatine Kinase 139 U/L Creatine Kinase MB 7.5 ng/ml Creatine Kinase MB Ratio 5.4 Troponin I 14.700 ng/ml Total Protein 6.3 gm/dl Albumin 1.9 gm/dl Globulin 4.4 gm/dl Albumin/Globulin Ratio 0.4 Procalcitonin 7.06 ng/ml Random Vancomycin Level 15.3 mcg/ml Stool Occult Blood POSITIVE EKG: An EKG was obtained this morning which revealed a sinus tachycardia with some subtle ST segment changes in the inferior leads. Telemetry reviewed: Occasional episodes of discrete elevation in heart rate. Assessment and Plan 1. Non ST-elevation myocardial infarction. Likely related to his extended period of hypoperfusion and hypotension. He did not have chest pain during the episode or since. No chest pain currently. I suspect he has occult coronary disease which may be quite severe based on his echocardiogram and significant elevated biomarkers. I did discuss the recommended evaluation which includes coronary angiography. At this point the patient is refusing angiography. I agreed to provide him with some literature and continue this discussion over the next day. I believe the catheterization can be safely deferred until his renal function stabilizes. 2. LV systolic failure: He is noted to have reduced LV systolic function on his echocardiogram. No overt symptoms or signs of pulmonary congestion or decompensation. Ideally he will be on a beta-callie and DENNIS-inhibitor but both are being deferred as his clinical situation improves. 3. Valvular heart disease: Patient does have significant tricuspid regurgitation and an element of mitral regurgitation. 4. Pulmonary hypertension: This may be related to an element of LV dysfunction or possibly primary pulmonary disease. No evidence of pulmonary vascular congestion on exam or x-ray. At this point we will see if medical therapy for his LV dysfunction improves his pulmonary pressures. 5. Hypotension: Improved. Patient is currently off pressor support. Most likely etiology was distributive shock due to sepsis. As he stabilizes we will have the option of introducing cardiac agents such as beta-callie and DENNIS- inhibitor. I would suggest that if he continues to be normotensive into the afternoon that we reinitiate his beta-callie, possibly metoprolol 12.5 mg twice daily. He was on an Dennis inhibitor as an outpatient although his compliance is in question. Given his acute renal injury this has been deferred , but can be re-initiated at some point. 6. Anemia: Patient did undergo a transfusion. He does have heme-positive stool. Unclear whether he has occult gastrointestinal hemorrhage. This is a concern from a cardiac standpoint as he could require percutaneous intervention and placement on dual anti-platelet therapy.
--- NOTE | 2017-03-01 12:25 | Critical Care Progress Note ---
Critical Care Progress Note Date of Service Mar 01, 2017. Attending Dr. Haro Subjective Feels better today Off pressors Off insulin drip Eating well Objective General: Middle aged male, in no distress HEENT: Dry oral mucosa, NC/AT Lungs: clear to auscultation b/l CVS: S1S2 regular Abdomen: soft, non-tender, non-distended Back: no CVA tenderness Ext: No pedal edema, no cyanosis. Induration and erythema of right elbow, with tenderness and decreased range of motion secondary to pain [employer]: AAO x 3, no focal deficit Assessment & Plan 67 year old male with h/o uncontrolled DM, presents with septic shock secondary to obstructive uropathy, DKA, now developing NSTEMI Problems: Septic shock secondary to urosepsis - resolved Obstructive uropathy secondary to BPH DKA - resolved NSTEMI MACY Plan: ME[employer]ER: Weakness improved CVS: Off pressors Continue IV fluids On ASA for NSTEMI. Introduce beta-blockers if BP remains normal Holding off KORI inhibitors secondary to MACY Also holding off anticoagulation given reported hematuria, anemia requiring transfusions. Probably not plaque rupture anyway Will need coronary angiogram Troponin peaked, trending down. Echo reviewed, depressed EF Pulmonary: Kussmaul breathing resolved Pulmonary effusions not impacting the breathing ID: GPC in one blood culture. F/u identification and sensitivities Continue broad spectrum Abx for the time being, on Zosyn and Vancomycin Leukocytosis improving, procalcitonin improving Renal/metabolic: * MACY - monitor renal function. continue IV fluids. Keep Miller in. The patient has multiple reasons for MACY, hypotension, long standing obstruction, hypovolemia, sepsis. Creatinine improving * Gap acidosis and mild non-gap acidosis - secondary to DKA and MACY. No component of lactic acidosis. Resolved, now he has mild hyperchloremic non-gap acidosis, secondary to NS resuscitation. It will resolve eventually on its own * Obstructive uropathy - Keep Miller in place. CT scan reviewed. Urology follow up * DKA - resolved Endo: DKA resolved. Received 30 units of Lantus last night. Increase to 40 units tonight, additional 10 units given this AM. Regular insulin sliding scale GI: Tolerating diet DVT prophylaxis: SC Lovenox Critical care time spent with the patient, greater than 30 minutes Consider transfer to telemetry [facility] Deyvi Haro MD Consults & Procedures Consultants: Urology - Dr Marrero Cardiology - Dr Medina Procedures: 02/27/17 - Left IJ TLC Data Medications: Current Inpatient Medications Medications (Trade) Dose Ordered Sig/Nilda Route Start Time Stop Time Status Last Admin Dose Admin Enoxaparin Sodium (Lovenox Inj) 30 mg Q24H SC 02/27/17 18:00 03/29/17 17:59 02/28/17 18:07 30 MG Acetaminophen (Tylenol Tab) 650 mg Q4H PRN PO 02/27/17 15:30 03/29/17 15:29 03/01/17 05:56 650 MG Al Hydrox/Mg Hydrox/Simethicone (Maalox Max Susp) 15 ml Q4H PRN PO 02/27/17 15:30 03/29/17 15:29 Magnesium Hydroxide (Milk Of Magnesia Susp) 30 ml Q12H PRN PO 02/27/17 15:30 03/29/17 15:29 Ondansetron HCl (Zofran Inj) 4 mg Q6H PRN IV 02/27/17 15:30 03/29/17 15:29 Polyethylene (Miralax Powder Packet) 17 gm DAILY PRN PO 02/27/17 15:30 03/29/17 15:29 Piperacillin Sod/ Tazobactam Sod 3.375 gm/Dextrose 115 ml @ 28.75 mls/ hr Q8H IV 02/28/17 00:00 03/10/17 00:00 03/01/17 06:57 28.75 MLS/HR Aspirin (Ecotrin Tab) 81 mg DAILY PO 02/28/17 09:00 03/30/17 08:59 03/01/17 06:58 81 MG Cholecalciferol (Vitamin D Tab) 1,000 inter.unit DAILY PO 02/28/17 09:00 03/30/17 08:59 03/01/17 06:59 1,000 INTER.UNIT Cyanocobalamin (Vitamin B-12 Tab) 1,000 mcg DAILY PO 02/28/17 09:00 03/30/17 08:59 03/01/17 06:59 1,000 MCG Tamsulosin HCl (Flomax Cap) 0.4 mg DAILY PO 02/28/17 09:00 03/30/17 08:59 03/01/17 06:59 0.4 MG Vancomycin HCl (Consult) 1 ea UD PRN N/A 02/27/17 15:45 03/29/17 15:44 Piperacillin Sod/ Tazobactam Sod (Consult) 1 ea UD PRN N/A 02/27/17 15:45 03/29/17 15:44 Glucose (Glucose 40% Gel) 15-30 GRAMS 15 GRAMS... UD PRN PO 02/27/17 17:30 03/29/17 17:29 Glucose (Glucose Chew Tab) 4-8 Tablets 4 Tabl... UD PRN PO 02/27/17 17:30 03/29/17 17:29 Dextrose (Dextrose 50% 50ML Syringe) 25-50ML OF 50% DW IV FOR... UD PRN IV 02/27/17 17:30 03/29/17 17:29 Glucagon (Glucagon Inj) 1 mg UD PRN SQ 02/27/17 17:30 03/29/17 17:29 Norepinephrine Bitartrate 8 mg/ Dextrose 508 ml @ 0 mls/hr Q0M PRN IV 02/27/17 21:45 03/29/17 21:44 02/28/17 09:00 43.4 MLS/HR Famotidine 20 mg/ Dextrose 102 ml @ 204 mls/hr Q12@0900,2100 IV 02/28/17 09:00 03/30/17 08:59 03/01/17 08:28 204 MLS/HR Enteral Nutritional Formula (Boost Glucose Control) 1 can TID PO 02/28/17 14:00 03/30/17 13:59 03/01/17 07:01 1 CAN Sodium Chloride 1,000 ml @ 100 mls/hr Q10H IV 02/28/17 18:00 03/30/17 17:59 03/01/17 05:49 100 MLS/HR Insulin Aspart (novoLOG ASPART) SLIDING SCALE If CARB RA... Q6 SC 03/01/17 06:00 03/31/17 05:59 03/01/17 11:58 6 UNITS Insulin Glargine (Lantus Solostar Pen) 40 units DAILY@1700 SC 03/01/17 17:00 03/30/17 16:59 Vancomycin HCl 1000 mg/Sodium Chloride 270 ml @ 125 mls/hr Q24H IV 03/01/17 11:00 03/13/17 10:59 03/01/17 10:53 125 MLS/HR Vital Signs: Date Time Temp Pulse Resp B/P (MAP) Pulse Ox O2 Delivery O2 Flow Rate FiO2 03/01/17 09:15 113 20 111/60 (77) 94 Room Air 03/01/17 08:30 94 20 103/59 (74) 94 Room Air 03/01/17 08:23 97 22 101/43 (62) 95 Room Air 03/01/17 08:00 95 20 93/44 (60) 96 Room Air 03/01/17 07:13 95 Nasal Cannula 2.0 03/01/17 07:13 36.8 83 20 98/58 (71) 96 Room Air 03/01/17 06:00 84 20 104/61 (75) 96 Room Air 03/01/17 04:00 36.4 87 18 109/60 (76) 94 Room Air 03/01/17 04:00 94 Room Air 03/01/17 02:00 88 19 99/55 (70) 94 Room Air 03/01/17 00:20 36.5 90 20 99/66 95 03/01/17 00:01 36.5 89 22 104/61 (75) 95 Room Air 02/28/17 23:59 95 Room Air 02/28/17 23:54 36.4 90 20 114/64 95 02/28/17 22:55 36.8 91 24 110/63 94 02/28/17 22:25 37.1 111 20 111/67 92 02/28/17 22:08 36.9 112 24 128/72 94 02/28/17 22:00 113 30 130/73 (92) 95 02/28/17 21:20 36.9 113 21 127/88 94 02/28/17 20:50 36.7 94 22 121/65 94 02/28/17 20:35 36.7 94 24 117/64 95 02/28/17 20:20 36.7 93 24 115/65 94 02/28/17 20:15 93 21 115/65 (82) 94 02/28/17 20:06 93 22 113/62 (79) 95 02/28/17 20:05 36.9 92 22 113/62 95 02/28/17 20:00 95 Room Air 02/28/17 20:00 36.7 92 22 112/64 (80) 95 02/28/17 18:00 36.8 94 19 98/57 (71) 94 Room Air 02/28/17 16:00 95 Nasal Cannula 2.0 02/28/17 15:00 109 20 93/57 (69) 96 02/28/17 14:30 109 19 95/55 (68) 02/28/17 14:15 111 19 99/58 (72) 02/28/17 14:00 89 20 85/50 (62) 02/28/17 13:45 90 21 91/54 (66) 02/28/17 13:32 93 24 83/48 (60) 02/28/17 13:00 96 23 96/56 (69) 93 02/28/17 12:45 100 34 90/51 (64) 96 02/28/17 12:45 36.5 101 28 90/51 (64) 96 Room Air 02/28/17 12:30 99 23 88/48 (61) 96 02/28/17 12:15 98 30 88/48 (61) 96 Laboratory Results: Last 24 Hours Test 02/28/17 12:32 02/28/17 13:41 02/28/17 13:46 02/28/17 14:53 Bedside Glucose (other) 203 mg/dl 167 mg/dl 163 mg/dl 149 mg/dl Test 02/28/17 15:59 02/28/17 20:02 02/28/17 20:12 02/28/17 22:23 White Blood Count 27.57 K/uL Red Blood Count 2.47 M/uL Hemoglobin 7.5 g/dL Hematocrit 22.2 % Mean Corpuscular Volume 89.9 fL Mean Corpuscular Hemoglobin 30.4 pg Mean Corpuscular Hemoglobin Concent 33.8 g/dl Platelet Count 686 K/uL Mean Platelet Volume 8.6 fL Neutrophils (%) (Auto) 89.0 % Lymphocytes (%) (Auto) 3.3 % Monocytes (%) (Auto) 6.0 % Eosinophils (%) (Auto) 0.5 % Basophils (%) (Auto) 0.0 % Neutrophils # (Auto) 24.53 K/uL Lymphocytes # (Auto) 0.92 K/uL Monocytes # (Auto) 1.65 K/uL Eosinophils # (Auto) 0.14 K/uL Basophils # (Auto) 0.01 K/uL RDW Standard Deviation 49.7 fL RDW Coefficient of Variation 15.1 % Immature Granulocyte % (Auto) 1.2 % Immature Granulocyte # (Auto) 0.32 K/uL Dohle Bodies 1+ Venous Blood pH 7.34 7.36 Sodium Level 140 mmol/L 139 mmol/L Potassium Level 3.9 mmol/L 4.0 mmol/L Chloride Level 110 mmol/L 110 mmol/L Carbon Dioxide Level 20 mmol/L 19 mmol/L Anion Gap 10.0 mmol/L 10.0 mmol/L Blood Urea Nitrogen 91 mg/dl 88 mg/dl Creatinine 2.50 mg/dl 2.30 mg/dl Est Creatinine Clear Calc Drug Dose 26.8 ml/min 29.2 ml/min Estimated GFR () 29.3 32.4 Estimated GFR (Non- 25.3 27.9 BUN/Creatinine Ratio 36.4 38.1 Random Glucose 154 mg/dl 226 mg/dl Calcium Level 7.3 mg/dl 8.1 mg/dl Ionized Calcium 0.99 mmol/l 1.12 mmol/l Phosphorus Level 3.6 mg/dl 3.3 mg/dl Magnesium Level 1.8 mg/dl 2.1 mg/dl Total Iron Binding Capacity 85 mcg/dl Transferrin 59 mg/dl Transferrin % Saturation % Ferritin 1188.3 ng/ml Total Bilirubin 0.4 mg/dl 0.5 mg/dl Aspartate Amino Transf (AST/SGOT) 107 U/L 91 U/L Alanine Aminotransferase (ALT/SGPT) 26 U/L 28 U/L Alkaline Phosphatase 284 U/L 278 U/L Total Creatine Kinase 357 U/L Troponin I 32.100 ng/ml 24.500 ng/ml Total Protein 6.3 gm/dl 6.4 gm/dl Albumin 2.0 gm/dl 2.2 gm/dl Globulin 4.3 gm/dl 4.2 gm/dl Albumin/Globulin Ratio 0.5 0.5 Bedside Glucose (other) 223 mg/dl 235 mg/dl Test 03/01/17 00:05 03/01/17 03:24 03/01/17 04:34 03/01/17 07:50 Bedside Glucose (other) 221 mg/dl White Blood Count 27.22 K/uL 26.07 K/uL Red Blood Count 3.15 M/uL 3.03 M/uL Hemoglobin 9.5 g/dL 9.3 g/dL Hematocrit 27.6 % 26.7 % Mean Corpuscular Volume 87.6 fL 88.1 fL Mean Corpuscular Hemoglobin 30.2 pg 30.7 pg Mean Corpuscular Hemoglobin Concent 34.4 g/dl 34.8 g/dl Platelet Count 646 K/uL 629 K/uL Mean Platelet Volume 8.9 fL 9.0 fL Neutrophils (%) (Auto) 89.1 % 87.7 % Lymphocytes (%) (Auto) 3.5 % 3.6 % Monocytes (%) (Auto) 5.6 % 6.5 % Eosinophils (%) (Auto) 0.5 % 0.6 % Basophils (%) (Auto) 0.1 % 0.1 % Neutrophils # (Auto) 24.25 K/uL 22.85 K/uL Lymphocytes # (Auto) 0.95 K/uL 0.94 K/uL Monocytes # (Auto) 1.53 K/uL 1.70 K/uL Eosinophils # (Auto) 0.14 K/uL 0.15 K/uL Basophils # (Auto) 0.02 K/uL 0.03 K/uL RDW Standard Deviation 49.4 fL 50.4 fL RDW Coefficient of Variation 15.4 % 15.5 % Immature Granulocyte % (Auto) 1.2 % 1.5 % Immature Granulocyte # (Auto) 0.33 K/uL 0.40 K/uL Nucleated RBC Absolute Count (auto) 0.02 K/uL Nucleated Red Blood Cells % 0.1 % Echinocytes 1+ Venous Blood pH 7.36 Venous Blood Partial Pressure CO2 35 mmHg Venous Blood Partial Pressure O2 38 mmHg Venous Blood HCO3 19 mmol/L Venous Blood Oxygen Saturation 69.8 % Venous Blood Base Excess -5.8 mEq/L Sodium Level 140 mmol/L Potassium Level 3.9 mmol/L Chloride Level 112 mmol/L Carbon Dioxide Level 19 mmol/L Anion Gap 9.0 mmol/L Blood Urea Nitrogen 73 mg/dl Creatinine 2.10 mg/dl Est Creatinine Clear Calc Drug Dose 31.9 ml/min Estimated GFR () 36.1 Estimated GFR (Non- 31.2 BUN/Creatinine Ratio 34.6 Random Glucose 198 mg/dl Lactic Acid Level 1.3 mmol/L Calcium Level 7.7 mg/dl Phosphorus Level 2.9 mg/dl Magnesium Level 2.0 mg/dl Total Bilirubin 0.8 mg/dl Aspartate Amino Transf (AST/SGOT) 92 U/L Alanine Aminotransferase (ALT/SGPT) 38 U/L Alkaline Phosphatase 268 U/L Total Creatine Kinase 139 U/L Creatine Kinase MB 7.5 ng/ml Creatine Kinase MB Ratio 5.4 Troponin I 14.700 ng/ml Total Protein 6.3 gm/dl Albumin 1.9 gm/dl Globulin 4.4 gm/dl Albumin/Globulin Ratio 0.4 Procalcitonin 7.06 ng/ml Random Vancomycin Level 15.3 mcg/ml Stool Occult Blood POSITIVE Test 03/01/17 10:51 Bedside Glucose 292 mg/dl
--- NOTE | 2017-03-01 12:29 | HEME/ONC PROGRESS NOTE ---
DATE: 03/01/2017 DIAGNOSES: 1. Urosepsis. 2. Leukocytosis with associated thrombocytosis. SUBJECTIVE: Mr. Patel is a pleasant 67-year-old gentleman who was admitted to [facility] on 02/27/2017 with frequent falls, generalized malaise and weakness. He was found to be hypotensive and was started on vasopressors. Blood cultures now reveal gram positive cocci in both blood and urine. Clinically, doing much better today with stable blood pressure and improving mentation. Both peripheral white count and platelet count are heading downward. OBJECTIVE: VITAL SIGNS: He is afebrile, pulse 113, respiratory rate 20, and blood pressure 111/60. SKIN: Without rash or lesion. HEENT: Without erythema or ulceration. NECK: Supple. HEART: Regular rate and rhythm. LUNGS: Clear to auscultation. ABDOMEN: Soft, nontender, and nondistended. EXTREMITIES: No clubbing, cyanosis or edema. Pneumatics in place. NEUROLOGIC: Grossly intact. LABORATORY DATA: WBC count 26,000, hemoglobin 9.3, and platelet count 629,000. Chemistries pending at the time of dictation. IMPRESSION: 1. Urosepsis. 2. Leukocytosis/thrombocytosis (reactive). 3. Acute myocardial infarction. 4. Acute renal injury. PLAN: I had the pleasure of seeing Chava at bedside today. His mentation was vastly improved and his vital signs are becoming more stable. Peripheral blood counts are also showing signs of improvement and suspect will do so over time. I have nothing further to add; however, will sign Mr. ____ Dr. Iverson, who will be coming on service tomorrow. Thank you for allowing us to participate in the care of this very pleasant gentleman.
--- NOTE | 2017-03-01 12:49 | Progress Note ---
Subjective Date of Service: Mar 01, 2017. Subjective Pt evaluation today including: conversation w/ patient, physical exam, lab review, conversation w/ sales consultant pt more alert On review no previous hx of stones discussed probability he may have flaccid bladder and need to learn cic explained ct difficult to 100% r/o distal l urteral stone but with no hx of pain , no hx of stones,ongoing improvement in renal function, clinical explanation of b hydro and best interpretation of myself and radiology this is likely not a stone Problem List Medical Problems: (1) DKA (diabetic ketoacidoses) Status: Acute (2) Urinary tract infection Status: Acute Objective Vital Signs Date Time Temp Pulse Resp B/P (MAP) Pulse Ox O2 Delivery O2 Flow Rate FiO2 03/01/17 09:15 113 20 111/60 (77) 94 Room Air 03/01/17 08:30 94 20 103/59 (74) 94 Room Air 03/01/17 08:23 97 22 101/43 (62) 95 Room Air 03/01/17 08:00 95 20 93/44 (60) 96 Room Air 03/01/17 07:13 95 Nasal Cannula 2.0 03/01/17 07:13 36.8 83 20 98/58 (71) 96 Room Air 03/01/17 06:00 84 20 104/61 (75) 96 Room Air 03/01/17 04:00 36.4 87 18 109/60 (76) 94 Room Air 03/01/17 04:00 94 Room Air 03/01/17 02:00 88 19 99/55 (70) 94 Room Air 03/01/17 00:20 36.5 90 20 99/66 95 03/01/17 00:01 36.5 89 22 104/61 (75) 95 Room Air 02/28/17 23:59 95 Room Air 02/28/17 23:54 36.4 90 20 114/64 95 02/28/17 22:55 36.8 91 24 110/63 94 02/28/17 22:25 37.1 111 20 111/67 92 02/28/17 22:08 36.9 112 24 128/72 94 02/28/17 22:00 113 30 130/73 (92) 95 02/28/17 21:20 36.9 113 21 127/88 94 02/28/17 20:50 36.7 94 22 121/65 94 02/28/17 20:35 36.7 94 24 117/64 95 02/28/17 20:20 36.7 93 24 115/65 94 02/28/17 20:15 93 21 115/65 (82) 94 02/28/17 20:06 93 22 113/62 (79) 95 02/28/17 20:05 36.9 92 22 113/62 95 02/28/17 20:00 95 Room Air 02/28/17 20:00 36.7 92 22 112/64 (80) 95 02/28/17 18:00 36.8 94 19 98/57 (71) 94 Room Air 02/28/17 16:00 95 Nasal Cannula 2.0 02/28/17 15:00 109 20 93/57 (69) 96 02/28/17 14:30 109 19 95/55 (68) 02/28/17 14:15 111 19 99/58 (72) 02/28/17 14:00 89 20 85/50 (62) 02/28/17 13:45 90 21 91/54 (66) 02/28/17 13:32 93 24 83/48 (60) 02/28/17 13:00 96 23 96/56 (69) 93 02/28/17 12:45 100 34 90/51 (64) 96 02/28/17 12:45 36.5 101 28 90/51 (64) 96 Room Air Physical Exam Abdomen: soft Comments: no flank pain ,urine output good Laboratory Results Last 24 Hours Test 02/28/17 13:41 02/28/17 13:46 02/28/17 14:53 02/28/17 15:59 Bedside Glucose (other) 167 mg/dl 163 mg/dl 149 mg/dl White Blood Count 27.57 K/uL Red Blood Count 2.47 M/uL Hemoglobin 7.5 g/dL Hematocrit 22.2 % Mean Corpuscular Volume 89.9 fL Mean Corpuscular Hemoglobin 30.4 pg Mean Corpuscular Hemoglobin Concent 33.8 g/dl Platelet Count 686 K/uL Mean Platelet Volume 8.6 fL Neutrophils (%) (Auto) 89.0 % Lymphocytes (%) (Auto) 3.3 % Monocytes (%) (Auto) 6.0 % Eosinophils (%) (Auto) 0.5 % Basophils (%) (Auto) 0.0 % Neutrophils # (Auto) 24.53 K/uL Lymphocytes # (Auto) 0.92 K/uL Monocytes # (Auto) 1.65 K/uL Eosinophils # (Auto) 0.14 K/uL Basophils # (Auto) 0.01 K/uL RDW Standard Deviation 49.7 fL RDW Coefficient of Variation 15.1 % Immature Granulocyte % (Auto) 1.2 % Immature Granulocyte # (Auto) 0.32 K/uL Dohle Bodies 1+ Venous Blood pH 7.34 Sodium Level 140 mmol/L Potassium Level 3.9 mmol/L Chloride Level 110 mmol/L Carbon Dioxide Level 20 mmol/L Anion Gap 10.0 mmol/L Blood Urea Nitrogen 91 mg/dl Creatinine 2.50 mg/dl Est Creatinine Clear Calc Drug Dose 26.8 ml/min Estimated GFR () 29.3 Estimated GFR (Non- 25.3 BUN/Creatinine Ratio 36.4 Random Glucose 154 mg/dl Calcium Level 7.3 mg/dl Ionized Calcium 0.99 mmol/l Phosphorus Level 3.6 mg/dl Magnesium Level 1.8 mg/dl Total Iron Binding Capacity 85 mcg/dl Transferrin 59 mg/dl Transferrin % Saturation % Ferritin 1188.3 ng/ml Total Bilirubin 0.4 mg/dl Aspartate Amino Transf (AST/SGOT) 107 U/L Alanine Aminotransferase (ALT/SGPT) 26 U/L Alkaline Phosphatase 284 U/L Total Creatine Kinase 357 U/L Troponin I 32.100 ng/ml Total Protein 6.3 gm/dl Albumin 2.0 gm/dl Globulin 4.3 gm/dl Albumin/Globulin Ratio 0.5 Test 02/28/17 20:02 02/28/17 20:12 02/28/17 22:23 03/01/17 00:05 Venous Blood pH 7.36 Sodium Level 139 mmol/L Potassium Level 4.0 mmol/L Chloride Level 110 mmol/L Carbon Dioxide Level 19 mmol/L Anion Gap 10.0 mmol/L Blood Urea Nitrogen 88 mg/dl Creatinine 2.30 mg/dl Est Creatinine Clear Calc Drug Dose 29.2 ml/min Estimated GFR () 32.4 Estimated GFR (Non- 27.9 BUN/Creatinine Ratio 38.1 Random Glucose 226 mg/dl Calcium Level 8.1 mg/dl Ionized Calcium 1.12 mmol/l Phosphorus Level 3.3 mg/dl Magnesium Level 2.1 mg/dl Total Bilirubin 0.5 mg/dl Aspartate Amino Transf (AST/SGOT) 91 U/L Alanine Aminotransferase (ALT/SGPT) 28 U/L Alkaline Phosphatase 278 U/L Troponin I 24.500 ng/ml Total Protein 6.4 gm/dl Albumin 2.2 gm/dl Globulin 4.2 gm/dl Albumin/Globulin Ratio 0.5 Bedside Glucose (other) 223 mg/dl 235 mg/dl 221 mg/dl Test 03/01/17 03:24 03/01/17 04:34 03/01/17 07:50 03/01/17 10:51 White Blood Count 27.22 K/uL 26.07 K/uL Red Blood Count 3.15 M/uL 3.03 M/uL Hemoglobin 9.5 g/dL 9.3 g/dL Hematocrit 27.6 % 26.7 % Mean Corpuscular Volume 87.6 fL 88.1 fL Mean Corpuscular Hemoglobin 30.2 pg 30.7 pg Mean Corpuscular Hemoglobin Concent 34.4 g/dl 34.8 g/dl Platelet Count 646 K/uL 629 K/uL Mean Platelet Volume 8.9 fL 9.0 fL Neutrophils (%) (Auto) 89.1 % 87.7 % Lymphocytes (%) (Auto) 3.5 % 3.6 % Monocytes (%) (Auto) 5.6 % 6.5 % Eosinophils (%) (Auto) 0.5 % 0.6 % Basophils (%) (Auto) 0.1 % 0.1 % Neutrophils # (Auto) 24.25 K/uL 22.85 K/uL Lymphocytes # (Auto) 0.95 K/uL 0.94 K/uL Monocytes # (Auto) 1.53 K/uL 1.70 K/uL Eosinophils # (Auto) 0.14 K/uL 0.15 K/uL Basophils # (Auto) 0.02 K/uL 0.03 K/uL RDW Standard Deviation 49.4 fL 50.4 fL RDW Coefficient of Variation 15.4 % 15.5 % Immature Granulocyte % (Auto) 1.2 % 1.5 % Immature Granulocyte # (Auto) 0.33 K/uL 0.40 K/uL Nucleated RBC Absolute Count (auto) 0.02 K/uL Nucleated Red Blood Cells % 0.1 % Echinocytes 1+ Venous Blood pH 7.36 Venous Blood Partial Pressure CO2 35 mmHg Venous Blood Partial Pressure O2 38 mmHg Venous Blood HCO3 19 mmol/L Venous Blood Oxygen Saturation 69.8 % Venous Blood Base Excess -5.8 mEq/L Sodium Level 140 mmol/L Potassium Level 3.9 mmol/L Chloride Level 112 mmol/L Carbon Dioxide Level 19 mmol/L Anion Gap 9.0 mmol/L Blood Urea Nitrogen 73 mg/dl Creatinine 2.10 mg/dl Est Creatinine Clear Calc Drug Dose 31.9 ml/min Estimated GFR () 36.1 Estimated GFR (Non- 31.2 BUN/Creatinine Ratio 34.6 Random Glucose 198 mg/dl Lactic Acid Level 1.3 mmol/L Calcium Level 7.7 mg/dl Phosphorus Level 2.9 mg/dl Magnesium Level 2.0 mg/dl Total Bilirubin 0.8 mg/dl Aspartate Amino Transf (AST/SGOT) 92 U/L Alanine Aminotransferase (ALT/SGPT) 38 U/L Alkaline Phosphatase 268 U/L Total Creatine Kinase 139 U/L Creatine Kinase MB 7.5 ng/ml Creatine Kinase MB Ratio 5.4 Troponin I 14.700 ng/ml Total Protein 6.3 gm/dl Albumin 1.9 gm/dl Globulin 4.4 gm/dl Albumin/Globulin Ratio 0.4 Procalcitonin 7.06 ng/ml Random Vancomycin Level 15.3 mcg/ml Stool Occult Blood POSITIVE Bedside Glucose 292 mg/dl Assessment and Plan pt is improved Observe creatinine and recovery . Unlikely to have distal stone but if he fails to make progress or complained of l flank pain then perc nephrostomy indicated Clinical picture makes this seem unlikely pt will likely need to learn cic
[2017-03-01] MEDS: ENOXAPARIN 30 MG/0.3 ML SYR SC SCH (16:56)
[2017-03-01] MEDS ORDERED: INSULIN GLARGINE SOLOSTAR 100 UNITS/ML 3 ML PEN SC SCH (17:00)
--- NOTE | 2017-03-01 19:20 | Family Medicine Progress Note ---
Progress Note Date of Service Mar 01, 2017. Subjective Pt evaluation today including: conversation w/ patient, physical exam, chart review, lab review -Pt is feeling better today -Pt does complain of diarrhea today -no chest pain, SOB, abdominal pain, fever Constitutional: No fever, No chills Respiratory: No cough, No sputum, No wheezing, No shortness of breath Cardiovascular: No chest pain, No edema Abdomen: No pain, No nausea, No vomiting, No diarrhea Medications Current Inpatient Medications Medications (Trade) Dose Ordered Sig/Nilda Route Start Time Stop Time Status Last Admin Dose Admin Enoxaparin Sodium (Lovenox Inj) 30 mg Q24H SC 02/27/17 18:00 03/29/17 17:59 03/01/17 16:56 30 MG Acetaminophen (Tylenol Tab) 650 mg Q4H PRN PO 02/27/17 15:30 03/29/17 15:29 03/01/17 05:56 650 MG Al Hydrox/Mg Hydrox/Simethicone (Maalox Max Susp) 15 ml Q4H PRN PO 02/27/17 15:30 03/29/17 15:29 Magnesium Hydroxide (Milk Of Magnesia Susp) 30 ml Q12H PRN PO 02/27/17 15:30 03/29/17 15:29 Ondansetron HCl (Zofran Inj) 4 mg Q6H PRN IV 02/27/17 15:30 03/29/17 15:29 Polyethylene (Miralax Powder Packet) 17 gm DAILY PRN PO 02/27/17 15:30 03/29/17 15:29 Piperacillin Sod/ Tazobactam Sod 3.375 gm/Dextrose 115 ml @ 28.75 mls/ hr Q8H IV 02/28/17 00:00 03/10/17 00:00 03/01/17 15:27 28.75 MLS/HR Aspirin (Ecotrin Tab) 81 mg DAILY PO 02/28/17 09:00 03/30/17 08:59 03/01/17 06:58 81 MG Cholecalciferol (Vitamin D Tab) 1,000 inter.unit DAILY PO 02/28/17 09:00 03/30/17 08:59 03/01/17 06:59 1,000 INTER.UNIT Cyanocobalamin (Vitamin B-12 Tab) 1,000 mcg DAILY PO 02/28/17 09:00 03/30/17 08:59 03/01/17 06:59 1,000 MCG Tamsulosin HCl (Flomax Cap) 0.4 mg DAILY PO 02/28/17 09:00 03/30/17 08:59 03/01/17 06:59 0.4 MG Vancomycin HCl (Consult) 1 ea UD PRN N/A 02/27/17 15:45 03/29/17 15:44 Piperacillin Sod/ Tazobactam Sod (Consult) 1 ea UD PRN N/A 02/27/17 15:45 03/29/17 15:44 Glucose (Glucose 40% Gel) 15-30 GRAMS 15 GRAMS... UD PRN PO 02/27/17 17:30 03/29/17 17:29 Glucose (Glucose Chew Tab) 4-8 Tablets 4 Tabl... UD PRN PO 02/27/17 17:30 03/29/17 17:29 Dextrose (Dextrose 50% 50ML Syringe) 25-50ML OF 50% DW IV FOR... UD PRN IV 02/27/17 17:30 03/29/17 17:29 Glucagon (Glucagon Inj) 1 mg UD PRN SQ 02/27/17 17:30 03/29/17 17:29 Norepinephrine Bitartrate 8 mg/ Dextrose 508 ml @ 0 mls/hr Q0M PRN IV 02/27/17 21:45 03/29/17 21:44 02/28/17 09:00 43.4 MLS/HR Famotidine 20 mg/ Dextrose 102 ml @ 204 mls/hr Q12@0900,2100 IV 02/28/17 09:00 03/30/17 08:59 03/01/17 08:28 204 MLS/HR Enteral Nutritional Formula (Boost Glucose Control) 1 can TID PO 02/28/17 14:00 03/30/17 13:59 03/01/17 14:21 1 CAN Sodium Chloride 1,000 ml @ 100 mls/hr Q10H IV 02/28/17 18:00 03/30/17 17:59 03/01/17 16:55 100 MLS/HR Insulin Glargine (Lantus Solostar Pen) 40 units DAILY@1700 SC 03/01/17 17:00 03/30/17 16:59 03/01/17 16:52 40 UNITS Vancomycin HCl 1000 mg/Sodium Chloride 270 ml @ 125 mls/hr Q24H IV 03/01/17 11:00 03/13/17 10:59 03/01/17 10:53 125 MLS/HR Insulin Aspart (novoLOG ASPART) SLIDING SCALE If CARB RA... ACHS SC 03/01/17 16:00 03/31/17 15:59 03/01/17 16:54 4 UNITS Objective Vital Signs Date Time Temp Pulse Resp B/P (MAP) Pulse Ox O2 Delivery O2 Flow Rate FiO2 03/01/17 15:20 95 Room Air 03/01/17 13:51 94 Room Air 03/01/17 12:15 114 23 97 03/01/17 12:01 36.8 116 23 124/70 (88) 95 03/01/17 12:00 115 21 93 03/01/17 11:46 101 23 120/73 (89) 99 03/01/17 11:45 99 23 96 03/01/17 11:31 101 23 95/83 (87) 95 03/01/17 11:30 101 18 97 03/01/17 11:16 111 17 114/67 (83) 96 03/01/17 11:15 111 19 95 03/01/17 11:01 114 17 115/62 (79) 96 03/01/17 11:00 114 18 96 03/01/17 10:46 114 18 110/56 (74) 96 03/01/17 10:45 115 19 96 03/01/17 10:31 115 19 112/56 (74) 98 03/01/17 10:30 116 28 97 03/01/17 10:16 114 16 107/55 (72) 96 03/01/17 10:15 114 16 96 03/01/17 10:01 114 18 103/51 (68) 96 03/01/17 10:00 114 17 95 03/01/17 09:15 113 20 111/60 (77) 94 Room Air 03/01/17 08:30 94 20 103/59 (74) 94 Room Air 03/01/17 08:23 97 22 101/43 (62) 95 Room Air 03/01/17 08:00 95 20 93/44 (60) 96 Room Air 03/01/17 07:13 95 Nasal Cannula 2.0 03/01/17 07:13 36.8 83 20 98/58 (71) 96 Room Air 03/01/17 06:00 84 20 104/61 (75) 96 Room Air 03/01/17 04:00 36.4 87 18 109/60 (76) 94 Room Air 03/01/17 04:00 94 Room Air 03/01/17 02:00 88 19 99/55 (70) 94 Room Air 03/01/17 00:20 36.5 90 20 99/66 95 03/01/17 00:01 36.5 89 22 104/61 (75) 95 Room Air 02/28/17 23:59 95 Room Air 02/28/17 23:54 36.4 90 20 114/64 95 02/28/17 22:55 36.8 91 24 110/63 94 02/28/17 22:25 37.1 111 20 111/67 92 02/28/17 22:08 36.9 112 24 128/72 94 02/28/17 22:00 113 30 130/73 (92) 95 02/28/17 21:20 36.9 113 21 127/88 94 02/28/17 20:50 36.7 94 22 121/65 94 02/28/17 20:35 36.7 94 24 117/64 95 02/28/17 20:20 36.7 93 24 115/65 94 02/28/17 20:15 93 21 115/65 (82) 94 02/28/17 20:06 93 22 113/62 (79) 95 02/28/17 20:05 36.9 92 22 113/62 95 02/28/17 20:00 95 Room Air 02/28/17 20:00 36.7 92 22 112/64 (80) 95 Physical Exam General Appearance: WD/WN, no apparent distress Neck: supple, no adenopathy Respiratory/Chest: chest non-tender, lungs clear, normal breath sounds, no respiratory distress, no accessory muscle use Cardiovascular: regular rate, rhythm, no edema Abdomen: normal bowel sounds, non tender, soft Neurologic/Psychiatric: alert, normal mood/affect, oriented x 3 Skin: normal color, warm/dry, no rash Laboratory Results 03/01/17 04:34 Red Blood Count 3.03, Mean Corpuscular Volume 88.1, Mean Corpuscular Hemoglobin 30.7, Mean Corpuscular Hemoglobin Concent 34.8, Mean Platelet Volume 9.0, Neutrophils (%) (Auto) 87.7, Lymphocytes (%) (Auto) 3.6, Monocytes (%) (Auto) 6.5, Eosinophils (%) (Auto) 0.6, Basophils (%) (Auto) 0.1, Neutrophils # (Auto) 22.85, Lymphocytes # (Auto) 0.94, Monocytes # (Auto) 1.70, Eosinophils # (Auto) 0.15, Basophils # (Auto) 0.03 03/01/17 04:34 Test 02/28/17 20:02 03/01/17 00:05 03/01/17 03:24 03/01/17 04:34 Ionized Calcium 1.12 mmol/l (1.12-1.32) Bedside Glucose (other) 221 mg/dl (70-99) Nucleated RBC Absolute Count (auto) 0.02 K/uL (0-0) Nucleated Red Blood Cells % 0.1 % White Blood Count 26.07 K/uL (4.8-10.8) Red Blood Count 3.03 M/uL (4.7-6.1) Hemoglobin 9.3 g/dL (14.0-18.0) Hematocrit 26.7 % (42-52) Mean Corpuscular Volume 88.1 fL (80-100) Mean Corpuscular Hemoglobin 30.7 pg (25-34) Mean Corpuscular Hemoglobin Concent 34.8 g/dl (32-36) Platelet Count 629 K/uL (130-400) Mean Platelet Volume 9.0 fL (7.4-10.4) Neutrophils (%) (Auto) 87.7 % Lymphocytes (%) (Auto) 3.6 % Monocytes (%) (Auto) 6.5 % Eosinophils (%) (Auto) 0.6 % Basophils (%) (Auto) 0.1 % Neutrophils # (Auto) 22.85 K/uL (1.4-6.5) Lymphocytes # (Auto) 0.94 K/uL (1.2-3.4) Monocytes # (Auto) 1.70 K/uL (0.11-0.59) Eosinophils # (Auto) 0.15 K/uL (0-0.5) Basophils # (Auto) 0.03 K/uL (0-0.2) RDW Standard Deviation 50.4 fL (36.4-46.3) RDW Coefficient of Variation 15.5 % (11.5-14.5) Immature Granulocyte % (Auto) 1.5 % Immature Granulocyte # (Auto) 0.40 K/uL (0.00-0.02) Echinocytes 1+ Venous Blood pH 7.36 (7.36-7.41) Venous Blood Partial Pressure CO2 35 mmHg (38.0-50.0) Venous Blood Partial Pressure O2 38 mmHg Venous Blood HCO3 19 mmol/L Venous Blood Oxygen Saturation 69.8 % Venous Blood Base Excess -5.8 mEq/L Anion Gap 9.0 mmol/L (3-11) Est Creatinine Clear Calc Drug Dose 31.9 ml/min Estimated GFR () 36.1 Estimated GFR (Non- 31.2 BUN/Creatinine Ratio 34.6 (10-20) Lactic Acid Level 1.3 mmol/L (0.4-2.0) Calcium Level 7.7 mg/dl (8.5-10.1) Phosphorus Level 2.9 mg/dl (2.5-4.9) Magnesium Level 2.0 mg/dl (1.8-2.4) Total Bilirubin 0.8 mg/dl (0.2-1) Aspartate Amino Transf (AST/SGOT) 92 U/L (15-37) Alanine Aminotransferase (ALT/SGPT) 38 U/L (12-78) Alkaline Phosphatase 268 U/L (45-117) Total Creatine Kinase 139 U/L (39-308) Creatine Kinase MB 7.5 ng/ml (0.5-3.6) Creatine Kinase MB Ratio 5.4 (0-3.0) Troponin I 14.700 ng/ml (0-0.045) Total Protein 6.3 gm/dl (6.4-8.2) Albumin 1.9 gm/dl (3.4-5.0) Globulin 4.4 gm/dl (2.5-4.0) Albumin/Globulin Ratio 0.4 (0.9-2) Procalcitonin 7.06 ng/ml (0-0.5) Random Vancomycin Level 15.3 mcg/ml Test 03/01/17 07:50 03/01/17 15:42 Stool Occult Blood POSITIVE (NEGATIVE) Bedside Glucose 232 mg/dl (70-99) Assessment and Plan 88 yo male admitted to the ICU with Septic shock 2/2 to urosepsis, obstructive uropathy Septic shock -Secondary to UTI with underlying obstructive uropathy -Pt has a recent hospitalization UTI/Prostatitis -WBC 46.29 trending down today---->26.07 -Pt provided fluid boluses, maintenance IVF and pressors -Stopped pressors today -Central line placed -Pt has positive bcx-Staph Aureus -Pt empirically treated with Vancomycin and Zosyn Anemia -Hgb 7.5, Hct 22.8 yesterday--->Hgb 9.3 today, Hct 26.7 -Pt was anemic on arrival, pt dilutional as well -Iron studies order -PRBC given -Pt had transient hematuria today, seems to have resolved -Pt did have a positive occult stool -Consult GI -Starting pt on PPI NSTEMI -2/2 shock -Trops elevated x3 -ECHO shows hypokinesis of the left ventricle -Continue ASA. Hold BB, KORI -Monitor until medically stable for angiography MACY -2/2 obstructive uropathy -Keep in hallman, consult with urology, appreciate recs -IVF, follow-up BMP DKA -Pt came in with high sugars, -Anion gap acidosis, elevated beta-hydroxybutyrate, normal lactic acid -PMHX DM2, noncompliant, HbA1c 13.1----3 months ago -Likely exacerbated by infection -IVF, insulin drip -Insulin drip dc'ed today, On Lantus/NovoLog -pt still on fluids Lovenox for dvt proph Reviewed: Pt Seen/Exam by Me History resting comfortably in bed. Constitutional: denies: fever Respiratory: negative: short of breath Cardiovascular: denies chest pain General Appearance: no apparent distress Respiratory: lungs clear, no respiratory distress Cardiovascular: regular rate, rhythm Gastrointestinal: normal bowel sounds, non tender, soft Neurologic/Psychiatric: alert, oriented x 3 Skin Characteristics: warm/dry Assessment/Plan Resident Physician Supervision Note: I was present with Dr. Casillas in bedside. I verified the donaldson history and physical, reviewed labs and image studies, discussed the case with the resident and agree with the findings and care plan.
[2017-03-01] MEDS ORDERED: PANTOprazole INJ 40 MG in SYRINGE 0 ML IV ONE (20:45)
[2017-03-02] VITALS (18 sets, daily range): BP systolic 108–138; BP diastolic 58–81; PULSE 95–122; TEMP 36.5–37.1; O2SAT 94–98; BMI 22.8
[2017-03-02] MEDS: SODIUM CHLORIDE 0.9% 1000ML 1,000 ML IV SCH
[2017-03-02] MEDS: ALBUMIN HUMAN 25% 12.5 GM/50 ML VIAL IV SCH ×2 (03:35→08:41)
[2017-03-02 05:20] LABS: VEN BLD GAS O2 SATURATION 69.1 %; VEN BLOOD GAS BASE EXCESS -3.7 mEq/L
[2017-03-02 05:50] LABS: BUN/CREATININE RATIO 30.7 (10-20); CALCIUM 8.1 mg/dl (8.5-10.1); CREATININE 1.6 mg/dl (0.60-1.40); MAGNESIUM 1.8 mg/dl (1.8-2.4); POTASSIUM 3.6 mmol/L (3.5-5.1)
[2017-03-02 05:52] LABS: HEMATOCRIT 23.1 % (42-52); MEAN CELL VOLUME 90.6 fL (80-100); PLATELET COUNT 791 K/uL (130-400); RED BLOOD COUNT 2.55 M/uL (4.7-6.1); WHITE BLOOD COUNT 36.25 K/uL (4.8-10.8)
[2017-03-02 05:53] LABS: ANISOCYTOSIS PRESENT; BASO % 0.1 %; BASO ABS # 0.03 K/uL (0-0.2); COMPLETE YES; EOS % 0.5 %; IG% 1.2 %; LYMPH % 6.5 %; LYMPH ABS # 2.35 K/uL (1.2-3.4); MONO % 3.5 %; NEUT % 88.2 %
[2017-03-02 05:55] LABS: ALB/GLOB RATIO 0.4 (0.9-2); PHOSPHORUS 1.9 mg/dl (2.5-4.9)
[2017-03-02] MEDS: INSULIN ASPART 100 UNITS/ML 3 ML PEN SC SCH ×4 (06:45→19:39)
[2017-03-02] MEDS: BOOST GLUCOSE CONTROL PO SCH ×3 (08:40→16:56)
[2017-03-02] MEDS: ASPIRIN 81 MG ECTAB PO SCH (08:41)
[2017-03-02] MEDS: TAMSULOSIN HCL 0.4 MG CAP PO SCH (08:41)
[2017-03-02] MEDS: CYANOCOBALAMIN 500 MCG TAB (VIT B-12) PO SCH (08:41)
[2017-03-02] MEDS: PIPERACILL/TAZOBAC IV 3.375 GM in DEXTROSE 5% 100ML 100 ML IV SCH (08:41)
[2017-03-02] MEDS: CHOLECALCIFEROL 1000 INTER.UNIT TAB PO SCH (08:42)
--- NOTE | 2017-03-02 10:03 | Cardiology Follow-Up ---
Subjective Date of Service: Mar 02, 2017. Pt evaluation today including: conversation w/ patient, physical exam, chart review, lab review History of Present Illness This morning the patient claims to be feeling well. He states that his breathing is normal. He has no symptoms of chest discomfort. He did have some mild back discomfort which improved with a change in position. He denies any sense of racing heartbeat or palpitation. He has not been out of bed. Social History Smoking Status: Former Smoker History of Alcohol Use: Yes (OCC ) Review of Systems Respiratory: No cough, No sputum, No wheezing, No shortness of breath Cardiac: No chest pain, No edema Objective Vital Signs Past 12 Hours Date Time Temp Pulse Resp B/P (MAP) Pulse Ox O2 Delivery O2 Flow Rate FiO2 03/02/17 08:54 Room Air 03/02/17 06:00 101 18 112/66 (81) 96 Room Air 03/02/17 04:00 36.8 102 17 116/69 (85) 98 Room Air 03/02/17 04:00 97 Room Air 03/02/17 02:00 107 17 138/81 (100) 97 Room Air 03/02/17 00:01 36.6 113 25 108/58 (75) 96 Room Air 03/01/17 23:59 96 Room Air 03/01/17 22:00 90 20 96/56 (69) 96 Room Air Last Recorded Weight-Kilograms: 74.200 Physical Exam The patient is alert and oriented. Mood and affect appeared normal. He answered all questions appropriately. HEENT: Pupils are equal and reactive to light and accommodation. Extraocular movements are intact. The sclerae are anicteric. Neuro: Cranial nerves intact Neck: Patient's neck is supple. He has palpable carotid pulses bilaterally without bruits on auscultation. There is no evidence of jugular venous distention. The thyroid is not enlarged. Lungs: Clear to auscultation bilaterally. He has good air movement without use of accessory muscles. No rales wheezes or rhonchi. Cardiac: Heart demonstrates a regular rate and rhythm. Normal S1 and S2. Holosystolic murmur. Pulses: The patient has palpable radial pulses bilaterally that are equal in intensity Extremities: There was no evidence of hypoperfusion. There is no cyanosis or clubbing. There is no edema. Skin: I did not appreciate any rashes on examination today. Data Laboratory Results: Last 24 Hours Test 03/01/17 10:51 03/01/17 15:42 03/01/17 20:50 03/01/17 23:50 Bedside Glucose 292 mg/dl 232 mg/dl 141 mg/dl 45 mg/dl Test 03/02/17 00:18 03/02/17 05:11 03/02/17 09:39 Bedside Glucose 131 mg/dl White Blood Count 36.25 K/uL Red Blood Count 2.55 M/uL Hemoglobin 7.4 g/dL Hematocrit 23.1 % Mean Corpuscular Volume 90.6 fL Mean Corpuscular Hemoglobin 29.0 pg Mean Corpuscular Hemoglobin Concent 32.0 g/dl Platelet Count 791 K/uL Mean Platelet Volume 9.0 fL Neutrophils (%) (Auto) 88.2 % Lymphocytes (%) (Auto) 6.5 % Monocytes (%) (Auto) 3.5 % Eosinophils (%) (Auto) 0.5 % Basophils (%) (Auto) 0.1 % Neutrophils # (Auto) 32.00 K/uL Lymphocytes # (Auto) 2.35 K/uL Monocytes # (Auto) 1.26 K/uL Eosinophils # (Auto) 0.19 K/uL Basophils # (Auto) 0.03 K/uL RDW Standard Deviation 51.4 fL RDW Coefficient of Variation 15.5 % Immature Granulocyte % (Auto) 1.2 % Immature Granulocyte # (Auto) 0.42 K/uL Anisocytosis PRESENT Venous Blood pH 7.37 Venous Blood Partial Pressure CO2 36 mmHg Venous Blood Partial Pressure O2 37 mmHg Venous Blood HCO3 21 mmol/L Venous Blood Oxygen Saturation 69.1 % Venous Blood Base Excess -3.7 mEq/L Sodium Level 141 mmol/L Potassium Level 3.6 mmol/L Chloride Level 111 mmol/L Carbon Dioxide Level 20 mmol/L Anion Gap 10.0 mmol/L Blood Urea Nitrogen 49 mg/dl Creatinine 1.60 mg/dl Est Creatinine Clear Calc Drug Dose 44.8 ml/min Estimated GFR () 50.2 Estimated GFR (Non- 43.3 BUN/Creatinine Ratio 30.7 Random Glucose 71 mg/dl Calcium Level 8.1 mg/dl Phosphorus Level 1.9 mg/dl Magnesium Level 1.8 mg/dl Total Bilirubin 0.7 mg/dl Aspartate Amino Transf (AST/SGOT) 41 U/L Alanine Aminotransferase (ALT/SGPT) 36 U/L Alkaline Phosphatase 293 U/L Total Protein 6.8 gm/dl Albumin 2.1 gm/dl Globulin 4.7 gm/dl Albumin/Globulin Ratio 0.4 Telemetry reviewed: Gradually increasing heart rate with episodes of atrial arrhythmia Assessment and Plan 1. Non ST-elevation myocardial infarction. Clinically stable without any symptoms of chest discomfort or recurrent ischemia. This was likely more of a demand related event rather than a plaque rupture event. I did discuss the need for coronary angiography given his echocardiographic findings in the size of his infarct. However he is still resistant to the idea and has not yet agreed to undergo an invasive evaluation. His renal function is improving and I would anticipate an opportunity for angiography to be done safely within the next day or 2 2. LV systolic failure: He is noted to have reduced LV systolic function on his echocardiogram. No overt symptoms or signs of pulmonary congestion or decompensation. Ideally he will be on a beta-callie and KORI-inhibitor but both are being deferred as his clinical situation improves. 3. Valvular heart disease: Patient does have significant tricuspid regurgitation and an element of mitral regurgitation. 4. Pulmonary hypertension: This may be related to an element of LV dysfunction or possibly primary pulmonary disease. No evidence of pulmonary vascular congestion on exam or x-ray. At this point we will see if medical therapy for his LV dysfunction improves his pulmonary pressures. 5. Hypotension: Improved. Patient is currently off pressor support. Most likely etiology was distributive shock due to sepsis. At this point I would suggest initiation of beta-callie therapy. We can start with low-dose metoprolol 12.5 milligrams twice daily and monitor the response. 6. Anemia: Patient did undergo a transfusion. His hemoglobin has again dropped. He does have heme-positive stool. Unclear whether he has occult gastrointestinal hemorrhage. This is a concern from a cardiac standpoint as he could require percutaneous intervention and placement on dual anti-platelet therapy. 7. Tachycardia: The patient has both sinus tachycardia and brief periods of what are likely an atrial arrhythmia, possibly and that ectopic atrial tachycardia. He has not have overt symptoms related to the arrhythmia. I think his heart rates have gradually increased due to volume depletion and anemia. Hopefully with improvement in his volume status we will see some reduced heart rates. However, the patient would likely benefit from beta blockade given his LV dysfunction, recent NE and atrial tachycardia. I would suggest instituting metoprolol 12.5 milligrams twice daily now that he has been hemodynamically stable for well over a day.
[2017-03-02] MEDS ORDERED: PANTOprazole INJ 80 MG in DEXTROSE 5% 100ML IV SCH (10:30)
[2017-03-02 10:34] LABS: HEMATOCRIT 26.4 % (42-52); IMMATURE RETIC FRACTION 11.2 % (2.3-13.4); RETHE 27.9 PG (28.2-36.6)
[2017-03-02 10:35] LABS: INR 1.2 (0.9-1.1); PARTIAL THROMBOPLASTIN RATIO 1.2; PROTHROMBIN TIME (PATIENT) 12.9 SECONDS (9.0-12.0)
--- NOTE | 2017-03-02 11:33 | Progress Note ---
Subjective Date of Service: Mar 02, 2017. Subjective Pt evaluation today including: conversation w/ patient, chart review, lab review Voiding: hallman catheter in place (patent, draining yellow urine ) 67 yo male with sepsis secondary to AVERY and UR. Blood and urine cultures growing staph. Currently on Vancomycin. ? left ureteral stone on CT. The pt remains afebile. White count has increased from 26.07 yesterday to 36.25 today. Cr has improved to 1.6 from 2.10 yesterday. The pt c/o some low mid-back pain today, but feels it is from lying in bed. Denies n/v. Urine is yellow this morning. Problem List Medical Problems: (1) DKA (diabetic ketoacidoses) Status: Acute (2) Urinary tract infection Status: Acute Review of Systems Constitutional: No fever, No chills Respiratory: No shortness of breath Cardiac: No chest pain Abdomen: No pain, No nausea, No vomiting Male : No hematuria Heme: No abnormal bleeding/bruising Objective Vital Signs Date Time Temp Pulse Resp B/P (MAP) Pulse Ox O2 Delivery O2 Flow Rate FiO2 03/02/17 10:00 104 32 111/62 (78) 96 Room Air 03/02/17 08:54 Room Air 03/02/17 08:00 Room Air 03/02/17 08:00 37.1 122 19 121/68 (85) 97 Room Air 03/02/17 06:00 101 18 112/66 (81) 96 Room Air 03/02/17 04:00 36.8 102 17 116/69 (85) 98 Room Air 03/02/17 04:00 97 Room Air 03/02/17 02:00 107 17 138/81 (100) 97 Room Air 03/02/17 00:01 36.6 113 25 108/58 (75) 96 Room Air 03/01/17 23:59 96 Room Air 03/01/17 22:00 90 20 96/56 (69) 96 Room Air 03/01/17 20:00 94 Room Air 03/01/17 20:00 37.7 104 16 109/65 (80) 94 Room Air 03/01/17 15:20 95 Room Air 03/01/17 13:51 94 Room Air 03/01/17 12:15 114 23 97 03/01/17 12:01 36.8 116 23 124/70 (88) 95 03/01/17 12:00 115 21 93 03/01/17 11:46 101 23 120/73 (89) 99 03/01/17 11:45 99 23 96 03/01/17 11:31 101 23 95/83 (87) 95 03/01/17 11:30 101 18 97 Physical Exam General Appearance: no apparent distress Eyes: normal inspection ENT: hearing grossly normal Neck: no JVD Respiratory/Chest: no respiratory distress, no accessory muscle use Cardiovascular: no JVD Extremities: normal inspection Neurologic/Psychiatric: alert, normal mood/affect, oriented x 3 Skin: normal color Laboratory Results Last 24 Hours Test 03/01/17 15:42 03/01/17 20:50 03/01/17 23:50 03/02/17 00:18 Bedside Glucose 232 mg/dl 141 mg/dl 45 mg/dl 131 mg/dl Test 03/02/17 05:11 03/02/17 10:12 White Blood Count 36.25 K/uL Red Blood Count 2.55 M/uL Hemoglobin 7.4 g/dL 8.9 g/dL Hematocrit 23.1 % 26.4 % Mean Corpuscular Volume 90.6 fL Mean Corpuscular Hemoglobin 29.0 pg Mean Corpuscular Hemoglobin Concent 32.0 g/dl Platelet Count 791 K/uL Mean Platelet Volume 9.0 fL Neutrophils (%) (Auto) 88.2 % Lymphocytes (%) (Auto) 6.5 % Monocytes (%) (Auto) 3.5 % Eosinophils (%) (Auto) 0.5 % Basophils (%) (Auto) 0.1 % Neutrophils # (Auto) 32.00 K/uL Lymphocytes # (Auto) 2.35 K/uL Monocytes # (Auto) 1.26 K/uL Eosinophils # (Auto) 0.19 K/uL Basophils # (Auto) 0.03 K/uL RDW Standard Deviation 51.4 fL RDW Coefficient of Variation 15.5 % Immature Granulocyte % (Auto) 1.2 % Immature Granulocyte # (Auto) 0.42 K/uL Anisocytosis PRESENT Peripheral Blood Smear Path Consult Venous Blood pH 7.37 Venous Blood Partial Pressure CO2 36 mmHg Venous Blood Partial Pressure O2 37 mmHg Venous Blood HCO3 21 mmol/L Venous Blood Oxygen Saturation 69.1 % Venous Blood Base Excess -3.7 mEq/L Sodium Level 141 mmol/L Potassium Level 3.6 mmol/L Chloride Level 111 mmol/L Carbon Dioxide Level 20 mmol/L Anion Gap 10.0 mmol/L Blood Urea Nitrogen 49 mg/dl Creatinine 1.60 mg/dl Est Creatinine Clear Calc Drug Dose 44.8 ml/min Estimated GFR () 50.2 Estimated GFR (Non- 43.3 BUN/Creatinine Ratio 30.7 Random Glucose 71 mg/dl Calcium Level 8.1 mg/dl Phosphorus Level 1.9 mg/dl Magnesium Level 1.8 mg/dl Total Bilirubin 0.7 mg/dl Aspartate Amino Transf (AST/SGOT) 41 U/L Alanine Aminotransferase (ALT/SGPT) 36 U/L Alkaline Phosphatase 293 U/L Total Protein 6.8 gm/dl Albumin 2.1 gm/dl Globulin 4.7 gm/dl Albumin/Globulin Ratio 0.4 Absolute Reticulocyte Count 0.04 10^6/uL Percent Reticulocyte Count 1.2 % Immature Reticulocyte Fraction 11.2 % Reticulocyte Hemoglobin Content 27.9 PG Prothrombin Time 12.9 SECONDS Prothromb Time International Ratio 1.2 Activated Partial Thromboplast Time 30.1 SECONDS Partial Thromboplastin Ratio 1.2 Assessment and Plan A/P: Sepsis secondary to UR from AVERY. Rising white count. Reviewed CT with Dr Garcia this morning. Compared with previous KUB from December. Calcification in the pelvis appears consistent. Doubtful for left ureteral stone at this time, especially considering he remains afebrile. Continue IV abx for sepsis. Would transition him to 4 weeks of Bactrim prior to d/c home to tx for probable prostatitis. Hallman catheter should remain in place for 2 weeks in the setting of UTI and likely prostatitis. Will attempt an outpatient TOV at that time. Continue tamsulosin. Will continue to follow along with primary service.
[2017-03-02] MEDS: VANCOMYCIN INJ 1,000 MG in SODIUM CHLORIDE 0.9% 250ML 250 ML IV SCH (11:53)
[2017-03-02] MEDS ORDERED: POTASSIUM PHOSPHATE INJ 15 MMOL in SODIUM CHLORIDE 0.9% 250ML 250 ML IV ONE (12:15)
--- NOTE | 2017-03-02 12:38 | Progress Note ---
Progress Note Date of Service Mar 02, 2017. Progress Note ID Consult Dictated #[id number] A/P: 1. S. aureus septicemia, likely gu source 2. Prostatitis 3. Leukocytosis -Continue abx, will change to ctx 2g daily -needs echo, follow culture results -will start emperic po vanco, previous c diff negative, increased wbc and persistent diarrhea -will follow, thank you
[2017-03-02] MEDS ORDERED: PHARMACY GLYCEMIC MGMT CONSULT PRN (13:15)
[2017-03-02] MEDS: ACETAMINOPHEN 325 MG TAB PO PRN (13:37)
[2017-03-02] MEDS: CEFTRIAXONE SOD INJ 2,000 MG in DEXTROSE 5% 50ML 50 ML IV SCH (14:10)
[2017-03-02] MEDS: RASPBERRY SYRUP 5 ML UDP PO SCH ×2 (14:10→17:00)
[2017-03-02] MEDS: VANCOMYCIN HCL 250 MG/5 ML SOLN PO SCH ×2 (14:10→17:01)
[2017-03-02] MEDS: METOPROLOL SUCC 25MG EXT REL TAB PO SCH ×2 (14:15→20:39)
--- NOTE | 2017-03-02 14:33 | Critical Care Progress Note ---
Critical Care Progress Note Date of Service Mar 02, 2017. ICU Day ICU Day Number: [address] Hopson Subjective Patient with no acute events overnight Had 3 episodes of loose bowel movements overnight and another 3 loose bowel movements this afternoon Has continued right elbow pain Denies any vomiting, abdominal pain, bloating, constipation Denies any chest pain, palpitations, shortness of breath or lower extremity swelling Denies any fevers, night sweats or chills Objective General: Middle aged male, in no distress HEENT: Dry oral mucosa, NC/AT no lymphadenopathy, non palpable thyroid gland Lungs: clear to auscultation b/l with no wheezes, rales or rhonchi, patient not using any accessory muscles of respiration CVS: S1S2 regular, holosystolic murmur with no radiation to carotids, no JVD and no peripheral edema Abdomen: soft, non-tender, non-distended, normal bowel sounds, non distended and no rebound or guarding Back: no CVA tenderness Ext: No pedal edema, no cyanosis. strong peripheral pulses. Induration and erythema/warmth of right elbow, with tenderness and decreased range of motion secondary to pain ACADEMIC HOSPITALIST: AAO x 3, no focal deficit Neuro: 5/5 power in both lower extremities, 5/5 power in left upper extremity, unable to fully extend R upper extremity due to pain Current SOFA Score SOFA Score Response (Comments) Value Platelets (x10) > 150 0 Bilirubin (mg/dL) < 1.2 0 Julia Coma Score 15 0 Level of Hypotension No Hypotension 0 Creatinine (mg/dL) 1.2 - 1.9 1 Total 1 Assessment & Plan 67 year old male with uncontrolled DM who presented with septic shock secondary to obstructive uropathy. While in the hospital he has also had an NSTEMI. He is on hospital day 4 Neuro - patient with RAAS of 0 and negative CAM - is receiving tylenol for elbow pain (Xray showed no acute osseous injury) ID - urine culture grew MSSA and pansensitive - 1/2 blood cultures grew staph aureus, repeat blood cultures drawn - Spiked temp to 37.7 overnight and WCC trending up ---> today 36 - Urology suggested bactrim; however ID decdided to start patient on Vanc 250mg qid PO and ceftriaxone IV q24 - Likely source of infection (prostatitis?, bladder?) Cardiac - Off pressors - Non ST elevation NH, echo showed EF of 35-40 with global hypokinesis, patient started on metoprolol 12.5 bid as per cardiology recommendation, KORI inhibitor held for now due to patients renal function - Dr. Medina on board and suggest patient should get angiography in the next 1- 2 days; however at the moment the patient is refusing any further intervention - Pulmonary hypertension- could be due to decreased EF and will follow as cardiac meds are introduced and clinic picture improves - Patient has remained tachycardic this morning and into the afternoon, will start BB and assess response. Likely from recent septic picture as well as decreased EF - Miller catheter currently in place - CT scan showed possibility of 4 mm stone at vesicoureteral junction (repeat imaging? stone vs mass? may need further intervention depending on clinical picture) - Urology suggest retention is due to prostatits (recommend bactrim; however ID on board and suggest vanc and ceftriaxone) and recommend outpatient voiding trail in 2 weeks - on tamsulosin OD - PSA 0.266 earlier in hospital stay GI - 3 loose bowel movements yesterday night and 3 loose bowel movements this morning, c diff pending, placed on enteric precautions - Haem occult blood + and Hgb 7.4 - Pantoprazole 80 mg bid for GI prophylaxis - Patient has never had a colonoscopy before - Must rule out GI malignancy with continued diarrhea, decreased Hgb and + blood in stool - GI consulted to follow and scope if needed - LFT's currently trending down, were elevated likely due to fluid overload from NSTEMI, will continue to monitor Haem - Hgb 7.4 this morning and repeat Hgb 8.9 at 10 am - Received 2 units of PRBC in hospital to date and receiving 1 unit this afternoon - WBC 36.25 this morning and platelet 791 - Check retic count and peripheral smear (bone marrow pathology?) - Possibility that decreased Hgb GI source as patient never had a colonoscopy in the past - DVT prophylaxis with heparin 5000 bid Endo - HbA1c was 13.1 2 months ago - Currently on 40 units of glargine daily with ISS - Diabetes education consult Resp - Pulse ox 96% on room air - Patient currently in no respiratory distress - 20+ pack smoking history MSK - Right elbow painful with erythema, warmth and tenderness to palpation (septic joint?) - XRAY of elbow showed no acute abnormalities - Ortho consulted Access - Left Internal Jugular and 3 peripheral lines on right upper extremity Dispo - PT/OT ordered, Activity order - Lives home alone - Sister Raisa has been here, will likely take brother home to her home in [place] once patient no longer requiring hospital stay Resident Physician Supervision Note: Dr. Saavedra was resident physician during care of patient. I separately evaluated patient and did history and exam. I discussed the case with the resident and generally agree with the findings and plan. Improvement from initial presentation. Need to determine plan for Miller catheter and follow-up. Repeat blood cultures today. Documented By: Sin Hopson DO Consults & Procedures Consultants: Urology - Dr Marrero Cardiology - Dr Medina ID - Dr Bailey Prasad Procedures: 02/27/17 - Left IJ TLC Data Medications: Current Inpatient Medications Medications (Trade) Dose Ordered Sig/Nilda Route Start Time Stop Time Status Last Admin Dose Admin Acetaminophen (Tylenol Tab) 650 mg Q4H PRN PO 02/27/17 15:30 03/29/17 15:29 03/01/17 20:31 650 MG Al Hydrox/Mg Hydrox/Simethicone (Maalox Max Susp) 15 ml Q4H PRN PO 02/27/17 15:30 03/29/17 15:29 Magnesium Hydroxide (Milk Of Magnesia Susp) 30 ml Q12H PRN PO 02/27/17 15:30 03/29/17 15:29 Ondansetron HCl (Zofran Inj) 4 mg Q6H PRN IV 02/27/17 15:30 03/29/17 15:29 Polyethylene (Miralax Powder Packet) 17 gm DAILY PRN PO 02/27/17 15:30 03/29/17 15:29 Aspirin (Ecotrin Tab) 81 mg DAILY PO 02/28/17 09:00 03/30/17 08:59 Future Hold 03/02/17 08:41 81 MG Cholecalciferol (Vitamin D Tab) 1,000 inter.unit DAILY PO 02/28/17 09:00 03/30/17 08:59 03/02/17 08:42 1,000 INTER.UNIT Cyanocobalamin (Vitamin B-12 Tab) 1,000 mcg DAILY PO 02/28/17 09:00 03/30/17 08:59 03/02/17 08:41 1,000 MCG Tamsulosin HCl (Flomax Cap) 0.4 mg DAILY PO 02/28/17 09:00 03/30/17 08:59 03/02/17 08:41 0.4 MG Vancomycin HCl (Consult) 1 ea UD PRN N/A 02/27/17 15:45 03/29/17 15:44 Glucose (Glucose 40% Gel) 15-30 GRAMS 15 GRAMS... UD PRN PO 02/27/17 17:30 03/29/17 17:29 Glucose (Glucose Chew Tab) 4-8 Tablets 4 Tabl... UD PRN PO 02/27/17 17:30 03/29/17 17:29 Dextrose (Dextrose 50% 50ML Syringe) 25-50ML OF 50% DW IV FOR... UD PRN IV 02/27/17 17:30 03/29/17 17:29 03/02/17 00:01 50 ML Glucagon (Glucagon Inj) 1 mg UD PRN SQ 02/27/17 17:30 03/29/17 17:29 Insulin Glargine (Lantus Solostar Pen) 40 units DAILY@1700 SC 03/01/17 17:00 03/30/17 16:59 03/01/17 16:52 40 UNITS Insulin Aspart (novoLOG ASPART) SLIDING SCALE If CARB RA... ACHS SC 03/01/17 16:00 03/31/17 15:59 03/02/17 11:54 2 UNITS Heparin Sodium (Porcine) (Heparin 10 Unit/ ml 5 ml Flush) 5 ml PRN PRN FLUSH 03/01/17 23:30 03/31/17 23:29 Enteral Nutritional Formula (Boost Glucose Control) 1 can TIDM PO 03/02/17 07:15 04/01/17 07:14 03/02/17 11:53 1 CAN Heparin Sodium (Porcine) (Heparin Sq 5000 Unit/0.5ml) 5,000 unit Q12H SQ 03/03/17 09:00 04/02/17 08:59 Potassium Phosphate 15 mmol/ Sodium Chloride 255 ml @ 88 mls/hr TODAY@1215 ONCE IV 03/02/17 12:15 03/02/17 15:08 Ceftriaxone Sodium 2000 mg/ Dextrose 70 ml @ 100 mls/hr Q24H IV 03/02/17 14:00 03/16/17 13:59 Vancomycin HCl (Vancomycin Oral Soln) 250 mg QID PO 03/02/17 13:00 03/04/17 12:59 UNV Miscellaneous Information (Consult Glycemic Management Pharmacy) 1 ea UD PRN N/A 03/02/17 13:15 04/01/17 13:14 I & O: 24-Hour Column 03/03/17 07:59 Output Total 0 ml Balance 0 ml Vital Signs: Date Time Temp Pulse Resp B/P (MAP) Pulse Ox O2 Delivery O2 Flow Rate FiO2 03/02/17 12:45 37.0 120 24 126/70 96 03/02/17 12:15 37.0 121 16 126/71 96 03/02/17 12:00 36.8 104 20 124/68 (86) 96 Room Air 03/02/17 12:00 Room Air 03/02/17 11:57 36.8 120 20 126/71 95 03/02/17 10:00 104 32 111/62 (78) 96 Room Air 03/02/17 08:54 Room Air 03/02/17 08:00 Room Air 03/02/17 08:00 37.1 122 19 121/68 (85) 97 Room Air 03/02/17 06:00 101 18 112/66 (81) 96 Room Air 03/02/17 04:00 36.8 102 17 116/69 (85) 98 Room Air 03/02/17 04:00 97 Room Air 03/02/17 02:00 107 17 138/81 (100) 97 Room Air 03/02/17 00:01 36.6 113 25 108/58 (75) 96 Room Air 03/01/17 23:59 96 Room Air 03/01/17 22:00 90 20 96/56 (69) 96 Room Air 03/01/17 20:00 94 Room Air 03/01/17 20:00 37.7 104 16 109/65 (80) 94 Room Air 03/01/17 15:20 95 Room Air 03/01/17 13:51 94 Room Air Laboratory Results: Last 24 Hours Test 03/01/17 15:42 03/01/17 20:50 03/01/17 23:50 03/02/17 00:18 Bedside Glucose 232 mg/dl 141 mg/dl 45 mg/dl 131 mg/dl Test 03/02/17 05:11 03/02/17 10:12 White Blood Count 36.25 K/uL Red Blood Count 2.55 M/uL Hemoglobin 7.4 g/dL 8.9 g/dL Hematocrit 23.1 % 26.4 % Mean Corpuscular Volume 90.6 fL Mean Corpuscular Hemoglobin 29.0 pg Mean Corpuscular Hemoglobin Concent 32.0 g/dl Platelet Count 791 K/uL Mean Platelet Volume 9.0 fL Neutrophils (%) (Auto) 88.2 % Lymphocytes (%) (Auto) 6.5 % Monocytes (%) (Auto) 3.5 % Eosinophils (%) (Auto) 0.5 % Basophils (%) (Auto) 0.1 % Neutrophils # (Auto) 32.00 K/uL Lymphocytes # (Auto) 2.35 K/uL Monocytes # (Auto) 1.26 K/uL Eosinophils # (Auto) 0.19 K/uL Basophils # (Auto) 0.03 K/uL RDW Standard Deviation 51.4 fL RDW Coefficient of Variation 15.5 % Immature Granulocyte % (Auto) 1.2 % Immature Granulocyte # (Auto) 0.42 K/uL Anisocytosis PRESENT Peripheral Blood Smear Path Consult Venous Blood pH 7.37 Venous Blood Partial Pressure CO2 36 mmHg Venous Blood Partial Pressure O2 37 mmHg Venous Blood HCO3 21 mmol/L Venous Blood Oxygen Saturation 69.1 % Venous Blood Base Excess -3.7 mEq/L Sodium Level 141 mmol/L Potassium Level 3.6 mmol/L Chloride Level 111 mmol/L Carbon Dioxide Level 20 mmol/L Anion Gap 10.0 mmol/L Blood Urea Nitrogen 49 mg/dl Creatinine 1.60 mg/dl Est Creatinine Clear Calc Drug Dose 44.8 ml/min Estimated GFR () 50.2 Estimated GFR (Non- 43.3 BUN/Creatinine Ratio 30.7 Random Glucose 71 mg/dl Calcium Level 8.1 mg/dl Phosphorus Level 1.9 mg/dl Magnesium Level 1.8 mg/dl Total Bilirubin 0.7 mg/dl Aspartate Amino Transf (AST/SGOT) 41 U/L Alanine Aminotransferase (ALT/SGPT) 36 U/L Alkaline Phosphatase 293 U/L Total Protein 6.8 gm/dl Albumin 2.1 gm/dl Globulin 4.7 gm/dl Albumin/Globulin Ratio 0.4 Absolute Reticulocyte Count 0.04 10^6/uL Percent Reticulocyte Count 1.2 % Immature Reticulocyte Fraction 11.2 % Reticulocyte Hemoglobin Content 27.9 PG Prothrombin Time 12.9 SECONDS Prothromb Time International Ratio 1.2 Activated Partial Thromboplast Time 30.1 SECONDS Partial Thromboplastin Ratio 1.2
--- NOTE | 2017-03-02 14:52 | Pharmacy Progress Note ---
Glycemic Control Intl Consult Date of Service Mar 02, 2017. Scope Glycemic Pharmacist consulted by Dr Hopson on 03/02/17 for glycemic control and to write orders per [facility] inpatient glycemic control protocol Objective Weight (Kilograms): 74.200 Accuchecks BSG (last 24hrs): Test 03/01/17 15:42 03/01/17 20:50 03/01/17 23:50 03/02/17 00:18 Bedside Glucose 232 mg/dl (70-99) 141 mg/dl (70-99) 45 mg/dl (70-99) 131 mg/dl (70-99) Test 03/02/17 05:11 Random Glucose 71 mg/dl (70-99) Laboratory Data (last 24hrs) Test 03/02/17 05:11 Anion Gap 10.0 mmol/L BUN/Creatinine Ratio 30.7 Blood Urea Nitrogen 49 mg/dl Creatinine 1.60 mg/dl Potassium Level 3.6 mmol/L Sodium Level 141 mmol/L White Blood Count 36.25 K/uL Red Blood Count 2.55 M/uL Hemoglobin 7.4 g/dL Hematocrit 23.1 % Mean Corpuscular Volume 90.6 fL Mean Corpuscular Hemoglobin 29.0 pg Mean Corpuscular Hemoglobin Concent 32.0 g/dl Platelet Count 791 K/uL Mean Platelet Volume 9.0 fL Neutrophils (%) (Auto) 88.2 % Lymphocytes (%) (Auto) 6.5 % Monocytes (%) (Auto) 3.5 % Eosinophils (%) (Auto) 0.5 % Basophils (%) (Auto) 0.1 % Neutrophils # (Auto) 32.00 K/uL Lymphocytes # (Auto) 2.35 K/uL Monocytes # (Auto) 1.26 K/uL Eosinophils # (Auto) 0.19 K/uL Basophils # (Auto) 0.03 K/uL HbA1c 13.1% December 2016 Recent Pertinent Medications Outpatient Anti-diabetic Regimen: * history of non-compliance * Lantus 30 units Q HS * Metformin 1000mg PO BID The patient is currently receiving: * Basal insulin: Lantus 40 units every 24 hours - dosed in the evening * Correctional Insulin: Novolog Correction per scale ACHS Goal Range: Low 140 mg/dL - High 180 mg/dL Correction Factor: 30 mg/dL/unit * Prandial insulin: Per carb ratio of 1 unit per 10 grams CHO consumed * Oral Agents: None currently Risk Factors for Insulin Resistance: * Infection: ID has changed ABX therapy to Rocephin * Diet: ordered T2DM diet Assessment & Plan ASSESSMENT: 03/02/17 * Type 2 diabetic with h/o poor control admitted for sepsis - likely related to obstructive uropathy / prostatitis as well as NSTEMI * BSGs have ranged 45-292 over the last 24 hours * He has received 61 units of SQ insulin while tolerating very little PO * Patient developed severe hypoglycemia last evening, BSG 45, likely secondary to excess basal insulin in the setting of poor PO intake. He did have a total of 50 units of basal insulin yesterday (0.67units/kg/day of basal insulin alone) * Will decrease the basal insulin dose to ~50% of yesterday's total daily insulin requirement. Will base insulin doses on a total daily insulin dose of ~ 60 units/kg/day (or 0.8 units/kg/day) - a severe stress wt-based insulin dose * The current CF and CR are reasonable starting points. Will follow post- prandial BSGs today and adjust if necessary. PLAN FOR INPATIENT GLYCEMIC CONTROL: * Continue to hold metformin * Decreasing Lantus to 30 units SQ daily w/ dinner * Continuing correction factor to 30 mg/dl/unit * Continuing carb ratio to 1 unit per 10 grams CHO consumed * Continuing goal range of Low 140 mg/dL - High 180 mg/dL for now * Please note that the plan above was derived based on current level of insulin resistance and hospital stress. These recommendations are appropriate for inpatient admission only. Plan of care upon discharge will need to be reassessed to avoid potential outpatient hypo/hyperglycemia. Thank you.
--- NOTE | 2017-03-02 14:58 | Orthopedic Consultation ---
Orthopedic Consultation Date of Consultation: Mar 02, 2017. Attending Physician: Joy Pardo M.D. Reason for Consultation: Right elbow pain status post fall History of Present Illness Is a very pleasant 67-year-old male who was admitted for prostatitis and sepsis patient currently awake here in the ICU. He fell at home on possibly Thursday onto his right elbow and has been having some right elbow pain and swelling since that point in time. Patient denies any current fevers or chills he states he can definitely moves elbow just feels stiff because he hasn't moved it very much and feels like his arm is swollen. Patient currently on antibiotics for his sepsis from his prostatitis. Past Medical/Surgical History Medical Problems: (1) DKA (diabetic ketoacidoses) Status: Acute (2) Urinary tract infection Status: Acute Family History No pertinent family history Social History Smoking Status: Former Smoker Drug Use: none Marital Status: single Occupation Status: employed Allergies Coded Allergies: No Known Allergies (Unverified , 02/27/17) Home Medications Scheduled Acetaminophen (Tylenol), 1,000 MG PO QPM Aspirin (Aspirin Ec), 81 MG PO DAILY Atenolol (Tenormin), 50 MG PO DAILY Cholecalciferol (Vitamin D), 1,000 UNITS PO DAILY Cyanocobalamin (Vitamin B-12), 1,000 MCG PO DAILY Hydrochlorothiazide (Hydrochlorothiazide), 12.5 MG PO DAILY Insulin Glargine (Lantus Solostar), Unknown Dose SC QPM Lisinopril (Prinivil), 10 MG PO DAILY Meloxicam (Mobic), 15 MG PO DAILY Metformin Hcl (Glucophage), 1,000 MG PO BID Tamsulosin Hcl (Flomax), 0.4 MG PO DAILY Tocopheryl Acet,Dl-Alpha (Vitamin E), 100 UNITS PO DAILY Current Inpatient Medications Current Inpatient Medications Medications (Trade) Dose Ordered Sig/Nidla Route Start Time Stop Time Status Last Admin Dose Admin Acetaminophen (Tylenol Tab) 650 mg Q4H PRN PO 02/27/17 15:30 03/29/17 15:29 03/02/17 13:37 650 MG Al Hydrox/Mg Hydrox/Simethicone (Maalox Max Susp) 15 ml Q4H PRN PO 02/27/17 15:30 03/29/17 15:29 Magnesium Hydroxide (Milk Of Magnesia Susp) 30 ml Q12H PRN PO 02/27/17 15:30 03/29/17 15:29 Ondansetron HCl (Zofran Inj) 4 mg Q6H PRN IV 02/27/17 15:30 03/29/17 15:29 Polyethylene (Miralax Powder Packet) 17 gm DAILY PRN PO 02/27/17 15:30 03/29/17 15:29 Aspirin (Ecotrin Tab) 81 mg DAILY PO 02/28/17 09:00 03/30/17 08:59 Future Hold 03/02/17 08:41 81 MG Cholecalciferol (Vitamin D Tab) 1,000 inter.unit DAILY PO 02/28/17 09:00 03/30/17 08:59 03/02/17 08:42 1,000 INTER.UNIT Cyanocobalamin (Vitamin B-12 Tab) 1,000 mcg DAILY PO 02/28/17 09:00 03/30/17 08:59 03/02/17 08:41 1,000 MCG Tamsulosin HCl (Flomax Cap) 0.4 mg DAILY PO 02/28/17 09:00 03/30/17 08:59 03/02/17 08:41 0.4 MG Glucose (Glucose 40% Gel) 15-30 GRAMS 15 GRAMS... UD PRN PO 02/27/17 17:30 03/29/17 17:29 Glucose (Glucose Chew Tab) 4-8 Tablets 4 Tabl... UD PRN PO 02/27/17 17:30 03/29/17 17:29 Dextrose (Dextrose 50% 50ML Syringe) 25-50ML OF 50% DW IV FOR... UD PRN IV 02/27/17 17:30 03/29/17 17:29 03/02/17 00:01 50 ML Glucagon (Glucagon Inj) 1 mg UD PRN SQ 02/27/17 17:30 03/29/17 17:29 Insulin Aspart (novoLOG ASPART) SLIDING SCALE If CARB RA... ACHS SC 03/01/17 16:00 03/31/17 15:59 03/02/17 11:54 2 UNITS Heparin Sodium (Porcine) (Heparin 10 Unit/ ml 5 ml Flush) 5 ml PRN PRN FLUSH 03/01/17 23:30 03/31/17 23:29 Enteral Nutritional Formula (Boost Glucose Control) 1 can TIDM PO 03/02/17 07:15 04/01/17 07:14 03/02/17 11:53 1 CAN Heparin Sodium (Porcine) (Heparin Sq 5000 Unit/0.5ml) 5,000 unit Q12H SQ 03/03/17 09:00 04/02/17 08:59 Potassium Phosphate 15 mmol/ Sodium Chloride 255 ml @ 88 mls/hr TODAY@1215 ONCE IV 03/02/17 12:15 03/02/17 15:08 03/02/17 13:23 88 MLS/HR Ceftriaxone Sodium 2000 mg/ Dextrose 70 ml @ 100 mls/hr Q24H IV 03/02/17 14:00 03/16/17 13:59 03/02/17 14:10 100 MLS/HR Vancomycin HCl (Vancomycin Oral Soln) 250 mg QID PO 03/02/17 13:00 03/04/17 12:59 03/02/17 14:10 250 MG Miscellaneous Information (Consult Glycemic Management Pharmacy) 1 ea UD PRN N/A 03/02/17 13:15 04/01/17 13:14 Pantoprazole Sodium 80 mg/ Dextrose 120 ml @ 240 mls/hr Q12H IV 03/02/17 21:00 04/01/17 20:59 Raspberry (Raspberry Syrup 5ml Cup) 5 ml QID PO 03/02/17 13:00 03/16/17 12:59 03/02/17 14:10 5 ML Insulin Glargine (Lantus Solostar Pen) 30 units DAILY@1700 SC 03/02/17 17:00 04/01/17 16:59 Metoprolol Succinate (Toprol Xl Tab) 12.5 mg BID PO 03/02/17 14:30 04/01/17 14:29 03/02/17 14:15 12.5 MG Review of Systems Constitutional: No fever, No chills, No sweats, No weight loss, No weakness, No fatigue, No problem reported Cardiovascular: No chest pain, No orthopnea, No PND, No edema, No claudication , No palpitations, No problem reported Musculoskeletal: + swelling Neurologic: No memory loss, No paralysis, No weakness, No numbness/tingling, No vertigo, No balance problems, No problem reported Physical Exam Date Time Temp Pulse Resp B/P (MAP) Pulse Ox O2 Delivery O2 Flow Rate FiO2 03/02/17 14:45 108 24 129/71 95 03/02/17 14:00 109 32 123/65 (84) 96 Room Air 03/02/17 13:45 112 24 126/70 95 03/02/17 12:45 37.0 120 24 126/70 96 03/02/17 12:15 37.0 121 16 126/71 96 03/02/17 12:00 36.8 104 20 124/68 (86) 96 Room Air 03/02/17 12:00 Room Air 03/02/17 11:57 36.8 120 20 126/71 95 03/02/17 10:00 104 32 111/62 (78) 96 Room Air 03/02/17 08:54 Room Air 03/02/17 08:00 Room Air 03/02/17 08:00 37.1 122 19 121/68 (85) 97 Room Air 03/02/17 06:00 101 18 112/66 (81) 96 Room Air 03/02/17 04:00 36.8 102 17 116/69 (85) 98 Room Air 03/02/17 04:00 97 Room Air 03/02/17 02:00 107 17 138/81 (100) 97 Room Air 03/02/17 00:01 36.6 113 25 108/58 (75) 96 Room Air 03/01/17 23:59 96 Room Air 03/01/17 22:00 90 20 96/56 (69) 96 Room Air 03/01/17 20:00 94 Room Air 03/01/17 20:00 37.7 104 16 109/65 (80) 94 Room Air 03/01/17 15:20 95 Room Air General Appearance: WD/WN Extremities/Musculoskelatal: + pedal edema, + swelling, + pertinent finding ( on examination the patient's right upper extremities is grossly neurologically intact. He has definite firmness of the right triceps area consistent with a hematoma. There are no signs of compartment syndrome noted. Patient can easily extend his right elbow has pain in the right triceps area with flexion beyond 90 and has no pain with supination or pronation of the right elbow. Very mild erythema is noted and again tender to palpation of the right triceps area.) Laboratory Results Last 24 Hours Test 03/01/17 15:42 03/01/17 20:50 03/01/17 23:50 03/02/17 00:18 Bedside Glucose 232 mg/dl 141 mg/dl 45 mg/dl 131 mg/dl Test 03/02/17 05:11 03/02/17 10:12 03/02/17 11:26 White Blood Count 36.25 K/uL Red Blood Count 2.55 M/uL Hemoglobin 7.4 g/dL 8.9 g/dL Hematocrit 23.1 % 26.4 % Mean Corpuscular Volume 90.6 fL Mean Corpuscular Hemoglobin 29.0 pg Mean Corpuscular Hemoglobin Concent 32.0 g/dl Platelet Count 791 K/uL Mean Platelet Volume 9.0 fL Neutrophils (%) (Auto) 88.2 % Lymphocytes (%) (Auto) 6.5 % Monocytes (%) (Auto) 3.5 % Eosinophils (%) (Auto) 0.5 % Basophils (%) (Auto) 0.1 % Neutrophils # (Auto) 32.00 K/uL Lymphocytes # (Auto) 2.35 K/uL Monocytes # (Auto) 1.26 K/uL Eosinophils # (Auto) 0.19 K/uL Basophils # (Auto) 0.03 K/uL RDW Standard Deviation 51.4 fL RDW Coefficient of Variation 15.5 % Immature Granulocyte % (Auto) 1.2 % Immature Granulocyte # (Auto) 0.42 K/uL Anisocytosis PRESENT Peripheral Blood Smear Path Consult Venous Blood pH 7.37 Venous Blood Partial Pressure CO2 36 mmHg Venous Blood Partial Pressure O2 37 mmHg Venous Blood HCO3 21 mmol/L Venous Blood Oxygen Saturation 69.1 % Venous Blood Base Excess -3.7 mEq/L Sodium Level 141 mmol/L Potassium Level 3.6 mmol/L Chloride Level 111 mmol/L Carbon Dioxide Level 20 mmol/L Anion Gap 10.0 mmol/L Blood Urea Nitrogen 49 mg/dl Creatinine 1.60 mg/dl Est Creatinine Clear Calc Drug Dose 44.8 ml/min Estimated GFR () 50.2 Estimated GFR (Non- 43.3 BUN/Creatinine Ratio 30.7 Random Glucose 71 mg/dl Calcium Level 8.1 mg/dl Phosphorus Level 1.9 mg/dl Magnesium Level 1.8 mg/dl Total Bilirubin 0.7 mg/dl Aspartate Amino Transf (AST/SGOT) 41 U/L Alanine Aminotransferase (ALT/SGPT) 36 U/L Alkaline Phosphatase 293 U/L Total Protein 6.8 gm/dl Albumin 2.1 gm/dl Globulin 4.7 gm/dl Albumin/Globulin Ratio 0.4 Absolute Reticulocyte Count 0.04 10^6/uL Percent Reticulocyte Count 1.2 % Immature Reticulocyte Fraction 11.2 % Reticulocyte Hemoglobin Content 27.9 PG Prothrombin Time 12.9 SECONDS Prothromb Time International Ratio 1.2 Activated Partial Thromboplast Time 30.1 SECONDS Partial Thromboplastin Ratio 1.2 Bedside Glucose 147 mg/dl Assessment & Plan Painful hematoma right elbow/triceps. At this point time I feel that no signs of infectious process. This is more of a traumatic hematoma is currently inflamed and causing him some discomfort. His range of motion is limited only in flexion but got full extension actively a good supination pronation with minimal pain. I recommend a sling for comfort , ice as well and just observation. IF he gets worse this can be evacuated, but likely not needed but always a possibility. We will check him tomorrow if no change he can follow up in the office in 5-7 days. If anything worsens at all and we have already signed off please reconsult us and we would be happy to see him again.
--- NOTE | 2017-03-02 15:06 | INFECT. DISEASE CONSULTATION ---
DATE OF CONSULTATION: 03/02/2017 REQUESTING PHYSICIAN: Dr. Rigoberto Cortés. HISTORY OF PRESENT ILLNESS: This is a 67-year-old gentleman who was recently admitted to the hospital in December for urinary tract infection and presumed prostatitis. He recently has had worsening urinary complaints with incontinence; however, on my examination, he denies any urinary issues. He denies any dysuria, bleeding or abdominal pain. He has also had increased fatigue since his last admission to the hospital. As part of his workup, he did undergo a CAT scan of the abdomen and pelvis, which did show a left hydronephrosis with stone and questionable pyelonephritis. His urine culture is growing MSSA as blood cultures obtained in the Emergency Room. He did have a white count of 26, which is increased at 36. He is also complaining of increased diarrhea at home. A C. diff specimen was collected today and is pending. He did have yeast and greater than 30 WBCs from his UA. He did have an intermittent fever yesterday of 37.7, but otherwise has been afebrile. He was placed on vancomycin and Zosyn, but the Zosyn has subsequently been discontinued with the results of his cultures. He is currently on vancomycin and appears to be tolerating this well. He denies any fevers or chills on my examination. He denies any nausea, vomiting or diarrhea. He states his appetite is slowly increasing, but he has had poor p.o. intake at home secondary to diarrhea. He does have a Miller catheter in place on my examination. All remaining review of systems is reviewed and unremarkable. PAST MEDICAL HISTORY: Significant for BPH with recent prostatitis, uncontrolled diabetes, hypertension, and vitamin D deficiency. PAST SURGICAL HISTORY: Significant for dental surgery and tonsillectomy. SOCIAL HISTORY: Negative for tobacco use, alcohol use or drug use. FAMILY HISTORY: Noncontributory. ALLERGIES: No known drug allergies. CURRENT MEDICATIONS: Include subQ heparin, potassium, Boost, Lantus insulin, vancomycin, vitamin D, vitamin B12, Flomax, Tylenol, Maalox, milk of magnesia, Zofran and MiraLax. PHYSICAL EXAMINATION: VITAL SIGNS: He is currently afebrile with a T-max of 37.7 overnight, pulse 104, respiratory rate is 19, blood pressure is 111/62, and oxygen saturation is 96%-98% on room air. GENERAL: He is awake, alert and oriented x3. He appears to be in no acute distress. HEENT: Mucous membranes are moist. Extraocular muscles are intact. HEART: Regular. LUNGS: Clear bilaterally. ABDOMEN: Soft, nontender, and nondistended. EXTREMITIES: There is no lower extremity edema bilaterally. SKIN: Without rash. LABORATORY STUDIES: CBC today reveals a white blood cell count of 36.2, hemoglobin 7.4, repeated at 8.9, and platelets are 791. Chemistry panel reveals a sodium of 141, potassium is 3.6, chloride 111, bicarbonate 20, BUN 49, creatinine 1.6, and glucose is 71. AST is mildly elevated at 41 and ALT is normal at 36. Bilirubin is normal. Urinalysis in the ER again had large leukocyte esterase, greater than 30 WBCs and 3+ bacteria. Vancomycin level yesterday was 15.3. Stool was positive for blood. Hep C screen was negative. Blood cultures from the 30 07/2 sets is growing MSSA. Urine culture is also growing MSSA. Repeat blood cultures were ordered today and are pending. C. diff was done on the was negative, but a repeat specimen has been sent today. CT of the abdomen and pelvis is as previous. Chest x-ray shows no consolidation. ASSESSMENT AND PLAN: Methicillin-sensitive Staphylococcus aureus septicemia, likely secondary to urinary source. He will be continued on antibiotics. I will transition him to Rocephin 2 grams daily. He will need prolonged course and also should have an echocardiogram, SUSIE would be sufficient. Repeat blood cultures are pending. Repeat C. diff is pending as well. I do not see any contraindication to beginning oral vancomycin pending the results of his repeat C. diff as he has had worsening leukocytosis since admission to the hospital. We will follow along with you. Thank you for this consultation.
--- NOTE | 2017-03-02 15:13 | Family Medicine Progress Note ---
Progress Note Date of Service Mar 02, 2017. Subjective Pt evaluation today including: conversation w/ patient, physical exam, chart review, lab review Pain: denied having pain this AM PO Intake: tolerating Voiding: hallman catheter in place Pt reports 3 episodes of loose and watery stools yesterday and again since midnight. Otherwise denies having any abdominal pain, b/d, cp, sob or STEPHENS/ dizziness. Constitutional: No fever Respiratory: No shortness of breath Cardiovascular: No chest pain Abdomen: + diarrhea, No pain, No nausea, No vomiting Medications Current Inpatient Medications Medications (Trade) Dose Ordered Sig/Nilda Route Start Time Stop Time Status Last Admin Dose Admin Acetaminophen (Tylenol Tab) 650 mg Q4H PRN PO 02/27/17 15:30 03/29/17 15:29 03/02/17 13:37 650 MG Al Hydrox/Mg Hydrox/Simethicone (Maalox Max Susp) 15 ml Q4H PRN PO 02/27/17 15:30 03/29/17 15:29 Magnesium Hydroxide (Milk Of Magnesia Susp) 30 ml Q12H PRN PO 02/27/17 15:30 03/29/17 15:29 Ondansetron HCl (Zofran Inj) 4 mg Q6H PRN IV 02/27/17 15:30 03/29/17 15:29 Polyethylene (Miralax Powder Packet) 17 gm DAILY PRN PO 02/27/17 15:30 03/29/17 15:29 Aspirin (Ecotrin Tab) 81 mg DAILY PO 02/28/17 09:00 03/30/17 08:59 Future hold 03/02/17 08:41 81 MG Cholecalciferol (Vitamin D Tab) 1,000 inter.unit DAILY PO 02/28/17 09:00 03/30/17 08:59 03/02/17 08:42 1,000 INTER.UNIT Cyanocobalamin (Vitamin B-12 Tab) 1,000 mcg DAILY PO 02/28/17 09:00 03/30/17 08:59 03/02/17 08:41 1,000 MCG Tamsulosin HCl (Flomax Cap) 0.4 mg DAILY PO 02/28/17 09:00 03/30/17 08:59 03/02/17 08:41 0.4 MG Glucose (Glucose 40% Gel) 15-30 GRAMS 15 GRAMS... UD PRN PO 02/27/17 17:30 03/29/17 17:29 Glucose (Glucose Chew Tab) 4-8 Tablets 4 Tabl... UD PRN PO 02/27/17 17:30 03/29/17 17:29 Dextrose (Dextrose 50% 50ML Syringe) 25-50ML OF 50% DW IV FOR... UD PRN IV 02/27/17 17:30 03/29/17 17:29 03/02/17 00:01 50 ML Glucagon (Glucagon Inj) 1 mg UD PRN SQ 02/27/17 17:30 03/29/17 17:29 Insulin Aspart (novoLOG ASPART) SLIDING SCALE If CARB RA... ACHS SC 03/01/17 16:00 03/31/17 15:59 03/02/17 11:54 2 UNITS Heparin Sodium (Porcine) (Heparin 10 Unit/ ml 5 ml Flush) 5 ml PRN PRN FLUSH 03/01/17 23:30 03/31/17 23:29 Enteral Nutritional Formula (Boost Glucose Control) 1 can TIDM PO 03/02/17 07:15 04/01/17 07:14 03/02/17 11:53 1 CAN Heparin Sodium (Porcine) (Heparin Sq 5000 Unit/0.5ml) 5,000 unit Q12H SQ 03/03/17 09:00 04/02/17 08:59 Ceftriaxone Sodium 2000 mg/ Dextrose 70 ml @ 100 mls/hr Q24H IV 03/02/17 14:00 03/16/17 13:59 03/02/17 14:10 100 MLS/HR Vancomycin HCl (Vancomycin Oral Soln) 250 mg QID PO 03/02/17 13:00 03/04/17 12:59 03/02/17 14:10 250 MG Miscellaneous Information (Consult Glycemic Management Pharmacy) 1 ea UD PRN N/A 03/02/17 13:15 04/01/17 13:14 Pantoprazole Sodium 80 mg/ Dextrose 120 ml @ 240 mls/hr Q12H IV 03/02/17 21:00 04/01/17 20:59 Raspberry (Raspberry Syrup 5ml Cup) 5 ml QID PO 03/02/17 13:00 03/16/17 12:59 03/02/17 14:10 5 ML Insulin Glargine (Lantus Solostar Pen) 30 units DAILY@1700 SC 03/02/17 17:00 04/01/17 16:59 Metoprolol Succinate (Toprol Xl Tab) 12.5 mg BID PO 03/02/17 14:30 04/01/17 14:29 03/02/17 14:15 12.5 MG Objective Vital Signs Date Time Temp Pulse Resp B/P (MAP) Pulse Ox O2 Delivery O2 Flow Rate FiO2 03/02/17 16:00 36.6 105 21 129/71 (90) 94 03/02/17 14:45 108 24 129/71 95 03/02/17 14:00 109 32 123/65 (84) 96 Room Air 03/02/17 13:45 112 24 126/70 95 03/02/17 12:45 37.0 120 24 126/70 96 03/02/17 12:15 37.0 121 16 126/71 96 03/02/17 12:00 36.8 104 20 124/68 (86) 96 Room Air 03/02/17 12:00 Room Air 03/02/17 11:57 36.8 120 20 126/71 95 03/02/17 10:00 104 32 111/62 (78) 96 Room Air 03/02/17 08:54 Room Air 03/02/17 08:00 Room Air 03/02/17 08:00 37.1 122 19 121/68 (85) 97 Room Air 03/02/17 06:00 101 18 112/66 (81) 96 Room Air 03/02/17 04:00 36.8 102 17 116/69 (85) 98 Room Air 03/02/17 04:00 97 Room Air 03/02/17 02:00 107 17 138/81 (100) 97 Room Air 03/02/17 00:01 36.6 113 25 108/58 (75) 96 Room Air 03/01/17 23:59 96 Room Air 03/01/17 22:00 90 20 96/56 (69) 96 Room Air 03/01/17 20:00 94 Room Air 03/01/17 20:00 37.7 104 16 109/65 (80) 94 Room Air Physical Exam General Appearance: no apparent distress Eyes: normal inspection Respiratory/Chest: lungs clear, normal breath sounds, no respiratory distress Cardiovascular: regular rate, rhythm, no edema Abdomen: normal bowel sounds, non tender, soft Extremities: non-tender, no pedal edema Neurologic/Psychiatric: alert Skin: warm/dry Laboratory Results 03/02/17 05:11 Red Blood Count 2.55, Mean Corpuscular Volume 90.6, Mean Corpuscular Hemoglobin 29.0, Mean Corpuscular Hemoglobin Concent 32.0, Mean Platelet Volume 9.0, Neutrophils (%) (Auto) 88.2, Lymphocytes (%) (Auto) 6.5, Monocytes (%) (Auto) 3.5, Eosinophils (%) (Auto) 0.5, Basophils (%) (Auto) 0.1, Neutrophils # (Auto) 32.00, Lymphocytes # (Auto) 2.35, Monocytes # (Auto) 1.26, Eosinophils # (Auto) 0.19, Basophils # (Auto) 0.03 03/02/17 05:11 Test 03/02/17 05:11 03/02/17 10:12 03/02/17 16:15 White Blood Count 36.25 K/uL (4.8-10.8) Red Blood Count 2.55 M/uL (4.7-6.1) Hemoglobin 7.4 g/dL (14.0-18.0) Hematocrit 23.1 % (42-52) Mean Corpuscular Volume 90.6 fL (80-100) Mean Corpuscular Hemoglobin 29.0 pg (25-34) Mean Corpuscular Hemoglobin Concent 32.0 g/dl (32-36) Platelet Count 791 K/uL (130-400) Mean Platelet Volume 9.0 fL (7.4-10.4) Neutrophils (%) (Auto) 88.2 % Lymphocytes (%) (Auto) 6.5 % Monocytes (%) (Auto) 3.5 % Eosinophils (%) (Auto) 0.5 % Basophils (%) (Auto) 0.1 % Neutrophils # (Auto) 32.00 K/uL (1.4-6.5) Lymphocytes # (Auto) 2.35 K/uL (1.2-3.4) Monocytes # (Auto) 1.26 K/uL (0.11-0.59) Eosinophils # (Auto) 0.19 K/uL (0-0.5) Basophils # (Auto) 0.03 K/uL (0-0.2) RDW Standard Deviation 51.4 fL (36.4-46.3) RDW Coefficient of Variation 15.5 % (11.5-14.5) Immature Granulocyte % (Auto) 1.2 % Immature Granulocyte # (Auto) 0.42 K/uL (0.00-0.02) Anisocytosis PRESENT Peripheral Blood Smear Path Consult Venous Blood pH 7.37 (7.36-7.41) Venous Blood Partial Pressure CO2 36 mmHg (38.0-50.0) Venous Blood Partial Pressure O2 37 mmHg Venous Blood HCO3 21 mmol/L Venous Blood Oxygen Saturation 69.1 % Venous Blood Base Excess -3.7 mEq/L Anion Gap 10.0 mmol/L (3-11) Est Creatinine Clear Calc Drug Dose 44.8 ml/min Estimated GFR () 50.2 Estimated GFR (Non- 43.3 BUN/Creatinine Ratio 30.7 (10-20) Calcium Level 8.1 mg/dl (8.5-10.1) Phosphorus Level 1.9 mg/dl (2.5-4.9) Magnesium Level 1.8 mg/dl (1.8-2.4) Total Bilirubin 0.7 mg/dl (0.2-1) Aspartate Amino Transf (AST/SGOT) 41 U/L (15-37) Alanine Aminotransferase (ALT/SGPT) 36 U/L (12-78) Alkaline Phosphatase 293 U/L (45-117) Total Protein 6.8 gm/dl (6.4-8.2) Albumin 2.1 gm/dl (3.4-5.0) Globulin 4.7 gm/dl (2.5-4.0) Albumin/Globulin Ratio 0.4 (0.9-2) Absolute Reticulocyte Count 0.04 10^6/uL (0.02-0.10) Percent Reticulocyte Count 1.2 % (0.5-2.0) Immature Reticulocyte Fraction 11.2 % (2.3-13.4) Reticulocyte Hemoglobin Content 27.9 PG (28.2-36.6) Prothrombin Time 12.9 SECONDS (9.0-12.0) Prothromb Time International Ratio 1.2 (0.9-1.1) Activated Partial Thromboplast Time 30.1 SECONDS (21.0-31.0) Partial Thromboplastin Ratio 1.2 Bedside Glucose 243 mg/dl (70-99) Date/Time Source Procedure Growth Status 03/01/17 18:00 Nasal MRSA DNA Surveillance Screen - Final Specimen Negative for MRSA by DNA Probe Complete Assessment and Plan 67 yo male admitted to the ICU with Septic shock 2/2 to urosepsis, obstructive uropathy. Currently with concerning vitals and lab findings: Septic shock -Secondary to UTI with underlying obstructive uropathy -Pt had a recent hospitalization UTI/Prostatitis -Central line in place -Stopped pressors 03/01 -WBC uptrending again from 26.07 (03/01) to 36.25 today -Pt had 1 positive bcx-Staph Aureus and positive UCx for MSSA Staph Aureus -ID narrowed tx from empiric with Vancomycin and Zosyn to Recephin -BCx repeated to ensure neg post empiric treatment given elevated WBC -C-diff toxin reordered given elevated WBC (initial on 02/26 neg) -Other possible cause of elevated WBC - prostatitis Continued Anemia -Present on arrival but considered dilutional -Also had hematuria which resolved -Received 2 units on 02/28 for 7.5 Hgb -Hgb downtrending again 7.4, from 9.3 (03/01) and Hct 23.1 from 26.7 (03/01) -heme occult - positive -Ordered 1 unit PRBCs -Ordered coags -GI consult placed for evaluation of GI source of bleeding given +heme occult -Continue PPI NSTEMI - EF 44% -2/2 shock. Trops elevated x3 -ECHO shows hypokinesis of the left ventricle -Hold ASA for concerns of bleeding -Hold BB for hypotension, KORI for MACY -Monitor until medically stable for angiography MACY 2/2 obstructive uropathy - improving -Baseline Cr 1 -Cr improved from 2.10 on 03/01 to 1.60 this AM -Hallman in place for faccid bladder (pt non-complaint with self int caths). Keep hallman for 2 weeks, urology consulted and following -Follow BMP BPH -On Flomax (Tamsulosin) which causes hypotension -Consult urology to see if needed R Elbow pain and swelling s/p falling on it at home last -Ortho evaluated: traumatic hematoma/inflammation causing discomfort -Sling and Ice for comfort -F/u outpatient as needed DKA -Pt came in with high sugars likely exacerbated by infection -Anion gap acidosis, elevated beta-hydroxybutyrate, normal lactic acid -PMHX DM2, noncompliant, HbA1c 13.1----3 months ago -Ordered HgbA1c today -Insulin drip dc'ed 03/01, Now on Lantus/NovoLog -Keep BG within 140-180 range in light of acute stress DVT prophylaxis Lovenox held for concerns of bleeding Resident Involvement: Resident Care Provided Care Provided: Adult [facility] Medicine Reviewed: Pt Seen/Exam by Me History Resident Physician Supervision Note: I interviewed and examined the patient. Discussed with Dr. Cowart and agree with findings and plan as documented in the note. Any exceptions or clarifications are listed here: Patient continues with frequent watery stools today and was Hemoccult positive. His hemoglobin dropped by 2 g and he was tachycardic this morning. His white count trended up to 36,000 but he remained afebrile. C. difficile was negative. He was transfused 1 unit for the rapidly dropping hemoglobin and Hemoccult positive stool along with tachycardia in light of his recent NSTEMI. Patient denies abdominal pain, no chest pain. Repeat blood cultures were drawn this morning with no growth to date. He is now off of vasopressors. Renal function is improving. Vital signs reviewed Appears chronically ill, pale, lying in bed with flat affect but awake and alert and oriented Anicteric sclerae, trachea is midline Regular rhythm with mild tachycardia, no murmurs gallops rubs Lungs clear to auscultation bilaterally Abdomen soft nontender nondistended positive bowel sounds, Hallman in place draining dark yellow urine Extremities no edema, 2+ dorsalis pedis pulses bilaterally Skin no rashes 67-year-old male here with postobstructive acute kidney injury, severe sepsis from UTI with MSSA UTI and bacteremia. Also with worsening anemia, Hemoccult positive stool, and diarrhea. 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 difficile which was negative, and no other new source of infection found-we'll follow CBC -For worsening anemia, was transfused 1 unit this morning, however manager small business would prefer no further transfusion unless hemoglobin drops below 6.5 in this critically ill patient. Appreciate GI consultation, no plans for endoscopy at this time given his critical status unless he developed gross GI bleeding -For the diarrhea, could be antibiotic associated-start probiotics -Heparin subcutaneous for DVT prophylaxis started by manager small business-benefit of preventing DVT outweighs risk of occult GI bleeding but will cautiously follow the CBC Documented By: Maryellen Walters
[2017-03-02] MEDS: INSULIN GLARGINE SOLOSTAR 100 UNITS/ML 3 ML PEN SC SCH (17:03)
--- NOTE | 2017-03-02 17:07 | Hematology/Oncology Prog Note ---
Hematology/Onc Progress Note Date of Service Mar 02, 2017. Diagnoses Leukocytosis thrombocytosis Staph sepsis Medications Medications Administered Medications (Trade) Dose Ordered Sig/Nilda Route Start Time Stop Time Status Last Admin Dose Admin Sodium Chloride 1,000 ml @ 999 mls/hr Q1H1M STAT IV 02/27/17 12:24 02/27/17 13:24 DC 02/27/17 12:24 999 MLS/HR Daptomycin 400 mg/ Sodium Chloride 58 ml @ 120 mls/hr 1400 IV 02/28/17 14:00 02/28/17 14:00 DC 02/27/17 16:18 120 MLS/HR Pantoprazole Sodium 80 mg/ Dextrose 120 ml @ 480 mls/hr 1415 IV 02/27/17 14:15 02/27/17 14:29 DC 02/27/17 16:18 480 MLS/HR Pantoprazole Sodium 40 mg/ Dextrose 100 ml @ 20 mls/hr Q5H IV 02/27/17 14:30 02/27/17 19:29 DC 02/27/17 18:01 20 MLS/HR Enoxaparin Sodium (Lovenox Inj) 30 mg Q24H SC 02/27/17 18:00 03/02/17 10:17 DC 03/01/17 16:56 30 MG Acetaminophen (Tylenol Tab) 650 mg Q4H PRN PO 02/27/17 15:30 03/29/17 15:29 03/02/17 13:37 650 MG Vancomycin HCl 1500 mg/Sodium Chloride 530 ml @ 200 mls/hr 1800 IV 02/27/17 18:00 02/27/17 20:38 DC 02/27/17 19:43 200 MLS/HR Piperacillin Sod/ Tazobactam Sod 3.375 gm/Dextrose 115 ml @ 28.75 mls/ hr Q8H IV 02/28/17 00:00 03/02/17 09:52 DC 03/02/17 08:41 28.75 MLS/HR Aspirin (Ecotrin Tab) 81 mg DAILY PO 02/28/17 09:00 03/30/17 08:59 Future hold 03/02/17 08:41 81 MG Cholecalciferol (Vitamin D Tab) 1,000 inter.unit DAILY PO 02/28/17 09:00 03/30/17 08:59 03/02/17 08:42 1,000 INTER.UNIT Cyanocobalamin (Vitamin B-12 Tab) 1,000 mcg DAILY PO 02/28/17 09:00 03/30/17 08:59 03/02/17 08:41 1,000 MCG Tamsulosin HCl (Flomax Cap) 0.4 mg DAILY PO 02/28/17 09:00 03/30/17 08:59 03/02/17 08:41 0.4 MG Sodium Chloride 1,000 ml @ 100 mls/hr Q10H IV 02/27/17 17:15 02/28/17 14:53 DC 02/28/17 11:42 100 MLS/HR Piperacillin Sod/ Tazobactam Sod 3.375 gm/Dextrose 115 ml @ 230 mls/hr NOW ONCE IV 02/27/17 17:15 02/27/17 17:44 DC 02/27/17 18:00 230 MLS/HR Dextrose (Dextrose 50% 50ML Syringe) 25-50ML OF 50% DW IV FOR... UD PRN IV 02/27/17 17:30 03/29/17 17:29 03/02/17 00:01 50 ML Miscellaneous Information (Dc All Previously Ordered Diabetes Meds) 1 ea ONE ONCE N/A 02/27/17 20:30 02/27/17 20:38 DC 02/27/17 20:30 1 EA Miscellaneous (Insulin Protocol Severe Stress) 1 ea ONE ONCE N/A 02/27/17 20:30 02/27/17 20:38 DC 02/27/17 20:30 1 EA Albumin Human (Albumin 25%) 25 gm NOW STAT IV 02/27/17 21:27 02/27/17 21:28 DC 02/27/17 22:26 25 GM Norepinephrine Bitartrate 8 mg/ Dextrose 508 ml @ 0 mls/hr Q0M PRN IV 02/27/17 21:45 03/02/17 09:40 DC 02/28/17 09:00 43.4 MLS/HR Insulin Human Regular 2.5 unit/ Syringe 2.5 ml @ 1 mls/min TODAY@2145 IV 02/27/17 21:45 02/27/17 23:59 DC 02/27/17 23:21 1 MLS/MIN Albumin Human (Albumin 25%) 25 gm ONE ONCE IV 02/27/17 23:00 02/27/17 23:01 DC 02/27/17 23:18 25 GM Albumin Human (Albumin 25%) 25 gm Q6H IV 02/28/17 05:00 02/28/17 17:03 DC 02/28/17 16:54 25 GM Sodium Chloride 1,000 ml @ 999 mls/hr Q1H1M STAT IV 02/27/17 22:35 02/27/17 23:35 DC 02/27/17 23:17 999 MLS/HR Famotidine 20 mg/ Dextrose 102 ml @ 204 mls/hr Q12@0900,2100 IV 02/28/17 09:00 03/02/17 10:26 DC 03/01/17 08:28 204 MLS/HR Insulin Human Regular 250 units/ Sodium Chloride 252.5 ml @ 0 mls/hr DAILY@1130 IV 02/28/17 11:30 02/28/17 18:30 DC 02/28/17 11:44 3.1 MLS/HR Insulin Human Regular 250 units/ Sodium Chloride 252.5 ml @ 0 mls/hr TODAY@2215 IV 02/27/17 22:15 02/28/17 11:29 DC 02/27/17 23:20 2.6 MLS/HR Enteral Nutritional Formula (Boost Glucose Control) 1 can TID PO 02/28/17 14:00 03/02/17 06:53 DC 03/01/17 14:21 1 CAN Vancomycin HCl 1000 mg/Sodium Chloride 270 ml @ 125 mls/hr TODAY@1400 IV 02/28/17 14:00 02/28/17 16:10 DC 02/28/17 14:15 125 MLS/HR Dextrose/Sodium Chloride 1,000 ml @ 100 mls/hr Q10H IV 02/28/17 15:00 02/28/17 17:55 DC 02/28/17 14:59 100 MLS/HR Calcium Chloride (Calcium Chloride 10%) 1,000 mg NOW STAT IV 02/28/17 16:53 02/28/17 17:20 DC 02/28/17 18:11 1,000 MG Magnesium Sulfate 1 gm/Prmx 100 ml @ 100 mls/hr 1720 IV 02/28/17 17:20 02/28/17 18:00 DC 02/28/17 17:47 100 MLS/HR Insulin Glargine (Lantus Solostar Pen) 30 units DAILY@1700 NE 02/28/17 17:00 03/01/17 08:40 DC 02/28/17 18:11 30 UNITS Miscellaneous Information (Dc Iv Insulin Infusion) 1 ea TODAY@1800 N/A 02/28/17 18:00 02/28/17 22:00 DC 02/28/17 18:12 1 EA Insulin Aspart (novoLOG ASPART) SLIDING SCALE If CARB RA... ACHS NE 02/28/17 21:00 03/01/17 00:07 DC 02/28/17 20:16 2 UNITS Sodium Chloride 1,000 ml @ 100 mls/hr Q10H IV 02/28/17 18:00 03/02/17 10:18 DC 03/02/17 00:00 100 MLS/HR Insulin Aspart (novoLOG ASPART) SLIDING SCALE If CARB RA... Q6 NE 03/01/17 06:00 03/01/17 15:45 DC 03/01/17 11:58 6 UNITS Insulin Glargine (Lantus Solostar Pen) 40 units DAILY@1700 NE 03/01/17 17:00 03/02/17 13:47 DC 03/01/17 16:52 40 UNITS Insulin Glargine (Lantus Solostar Pen) 10 units 0837 STAT NE 03/01/17 08:37 03/01/17 08:55 DC 03/01/17 09:21 10 UNITS Enteral Nutritional Formula (Boost Glucose Control) 1 can NOW STAT PO 03/01/17 09:08 03/01/17 09:09 DC 03/01/17 09:22 1 CAN Vancomycin HCl 1000 mg/Sodium Chloride 270 ml @ 125 mls/hr Q24H IV 03/01/17 11:00 03/02/17 12:39 DC 03/02/17 11:53 125 MLS/HR Insulin Aspart (novoLOG ASPART) SLIDING SCALE If CARB RA... ACHS SC 03/01/17 16:00 03/31/17 15:59 03/02/17 11:54 2 UNITS Pantoprazole Sodium 40 mg/ Syringe 10 ml @ 5 mls/min 2045 ONCE IV 03/01/17 20:45 03/01/17 20:46 DC 03/01/17 20:54 5 MLS/MIN Albumin Human (Albumin 25%) 25 gm Q4H IV 03/02/17 03:30 03/02/17 10:19 DC 03/02/17 08:41 25 GM Enteral Nutritional Formula (Boost Glucose Control) 1 can TIDM PO 03/02/17 07:15 04/01/17 07:14 03/02/17 11:53 1 CAN Pantoprazole Sodium 80 mg/ Dextrose 120 ml @ 480 mls/hr Q12H IV 03/02/17 10:30 03/02/17 10:44 DC 03/02/17 11:51 480 MLS/HR Potassium Phosphate 15 mmol/ Sodium Chloride 255 ml @ 88 mls/hr TODAY@1215 ONCE IV 03/02/17 12:15 03/02/17 15:08 DC 03/02/17 13:23 88 MLS/HR Ceftriaxone Sodium 2000 mg/ Dextrose 70 ml @ 100 mls/hr Q24H IV 03/02/17 14:00 03/16/17 13:59 03/02/17 14:10 100 MLS/HR Vancomycin HCl (Vancomycin Oral Soln) 250 mg QID PO 03/02/17 13:00 03/04/17 12:59 03/02/17 14:10 250 MG Raspberry (Raspberry Syrup 5ml Cup) 5 ml QID PO 03/02/17 13:00 03/16/17 12:59 03/02/17 14:10 5 ML Metoprolol Succinate (Toprol Xl Tab) 12.5 mg BID PO 03/02/17 14:30 04/01/17 14:29 03/02/17 14:15 12.5 MG Subjective He feels he is doing a little better although he is having diarrhea now. C. difficile stool check for toxin was negative. He has been afebrile Review of Systems: Constitutional: Negative for weight loss or night sweats Eyes: Negative for event change of vision ENT: Negative for epistaxis, nasal discharge, sore throat, or deafness Cardiovascular: Negative for chest pain, palpitations, dizziness, diaphoresis Respiratory: Negative for new shortness of breath,hemoptysis, or purulent cough Gastrointestinal: Positive for loose stools he denies any blood in his stool Integumentary (skin): Negative for rash or jaundice discoloration Genitourinary: Negative for urinary frequency, hematuria, or dysuria Neurological: Negative for weakness, seizure activity, headache, or dizziness Lymphatic/Hematologic: Negative for petechiae, bleeding or new adenopathy Musculoskeletal: Negative for new joint or back pain Allergic/Immunologic: Negative for unusual rash or pruritis. Vital Signs Vital Signs Past 12 Hours Date Time Temp Pulse Resp B/P (MAP) Pulse Ox O2 Delivery O2 Flow Rate FiO2 03/02/17 16:00 36.6 105 21 129/71 (90) 94 03/02/17 14:45 108 24 129/71 95 03/02/17 14:00 109 32 123/65 (84) 96 Room Air 03/02/17 13:45 112 24 126/70 95 03/02/17 12:45 37.0 120 24 126/70 96 03/02/17 12:15 37.0 121 16 126/71 96 03/02/17 12:00 36.8 104 20 124/68 (86) 96 Room Air 03/02/17 12:00 Room Air 03/02/17 11:57 36.8 120 20 126/71 95 03/02/17 10:00 104 32 111/62 (78) 96 Room Air 03/02/17 08:54 Room Air 03/02/17 08:00 Room Air 03/02/17 08:00 37.1 122 19 121/68 (85) 97 Room Air 03/02/17 06:00 101 18 112/66 (81) 96 Room Air Physical Exam Constitutional: vitals are stable. Eyes: Eyes are NIKO EOMI without conjuctival erythema or icterus. ENT: External examination was negative for masses. Neck: Negative for masses or palpable thyromegaly Respiratory: Lung sounds were generally clear bilaterally Cardiovascular: Heart was RRR there is a soft 1/6 systolic murmur. Gastrointestinal: No palpable hepatic or splenomegaly. The abdomen was soft with normal bowel sounds. Lymphatic system: there was no palpable peripheral lymphadenopathy Musculoskeletal System: The musculoskeletal system seemed concordant with age. Skin: The skin was negative for jaundice. Neurologic exam: The exam was negative for any focal findings. Deep tendon reflexes were equal and symmetrical. Psychiatric exam: Was essentially negative with normal mood and effect. Extremities: Negative for significant edema erythema Laboratory Last 24 Hours Test 03/01/17 20:50 03/01/17 23:50 03/02/17 00:18 03/02/17 05:11 Bedside Glucose 141 mg/dl 45 mg/dl 131 mg/dl White Blood Count 36.25 K/uL Red Blood Count 2.55 M/uL Hemoglobin 7.4 g/dL Hematocrit 23.1 % Mean Corpuscular Volume 90.6 fL Mean Corpuscular Hemoglobin 29.0 pg Mean Corpuscular Hemoglobin Concent 32.0 g/dl Platelet Count 791 K/uL Mean Platelet Volume 9.0 fL Neutrophils (%) (Auto) 88.2 % Lymphocytes (%) (Auto) 6.5 % Monocytes (%) (Auto) 3.5 % Eosinophils (%) (Auto) 0.5 % Basophils (%) (Auto) 0.1 % Neutrophils # (Auto) 32.00 K/uL Lymphocytes # (Auto) 2.35 K/uL Monocytes # (Auto) 1.26 K/uL Eosinophils # (Auto) 0.19 K/uL Basophils # (Auto) 0.03 K/uL RDW Standard Deviation 51.4 fL RDW Coefficient of Variation 15.5 % Immature Granulocyte % (Auto) 1.2 % Immature Granulocyte # (Auto) 0.42 K/uL Anisocytosis PRESENT Peripheral Blood Smear Path Consult Venous Blood pH 7.37 Venous Blood Partial Pressure CO2 36 mmHg Venous Blood Partial Pressure O2 37 mmHg Venous Blood HCO3 21 mmol/L Venous Blood Oxygen Saturation 69.1 % Venous Blood Base Excess -3.7 mEq/L Sodium Level 141 mmol/L Potassium Level 3.6 mmol/L Chloride Level 111 mmol/L Carbon Dioxide Level 20 mmol/L Anion Gap 10.0 mmol/L Blood Urea Nitrogen 49 mg/dl Creatinine 1.60 mg/dl Est Creatinine Clear Calc Drug Dose 44.8 ml/min Estimated GFR () 50.2 Estimated GFR (Non- 43.3 BUN/Creatinine Ratio 30.7 Random Glucose 71 mg/dl Calcium Level 8.1 mg/dl Phosphorus Level 1.9 mg/dl Magnesium Level 1.8 mg/dl Total Bilirubin 0.7 mg/dl Aspartate Amino Transf (AST/SGOT) 41 U/L Alanine Aminotransferase (ALT/SGPT) 36 U/L Alkaline Phosphatase 293 U/L Total Protein 6.8 gm/dl Albumin 2.1 gm/dl Globulin 4.7 gm/dl Albumin/Globulin Ratio 0.4 Test 03/02/17 10:12 03/02/17 11:26 03/02/17 16:15 03/02/17 16:21 Hemoglobin 8.9 g/dL Hematocrit 26.4 % Absolute Reticulocyte Count 0.04 10^6/uL Percent Reticulocyte Count 1.2 % Immature Reticulocyte Fraction 11.2 % Reticulocyte Hemoglobin Content 27.9 PG Prothrombin Time 12.9 SECONDS Prothromb Time International Ratio 1.2 Activated Partial Thromboplast Time 30.1 SECONDS Partial Thromboplastin Ratio 1.2 Bedside Glucose 147 mg/dl 243 mg/dl Assessment & Plan On the cytosis and leukocytosis appears reactive to recent sepsis. Abdominal CT negative for splenomegaly. White cell differential not left shifted. Little to add from our standpoint. C. difficile toxin done earlier today was negative. Will ask for a SALBADOR-2 mutation test otherwise we will be signing off for now. I would like to visit with the patient in 3-4 weeks in our clinic to be sure that the blood counts settle down once he has recovered. These do not hesitate to reconsult if needed.
[2017-03-02 17:31] LABS: HEMATOCRIT 28.6 % (42-52)
[2017-03-02] MEDS: PANTOprazole INJ 80 MG in DEXTROSE 5% 100ML IV SCH (19:56)
[2017-03-02 21:32] LABS: HEMATOCRIT 28.9 % (42-52)
--- NOTE | 2017-03-02 23:27 | GASTROINTESTINAL CONSULTATION ---
DATE OF CONSULTATION: 03/02/2017 REASON FOR EVALUATION: Anemia with heme positive stool. HISTORY OF PRESENT ILLNESS: The patient is a 67-year-old male admitted 2 days ago with weakness and presyncope. The patient had no loss of consciousness. He is diabetic and his blood sugars although were recorded as normal, was found to have 1600 mL in his urine with methicillin sensitive staph and his blood has severe leukemoid reaction with a very high white count with left shift and very high platelet count and ferritin. He has signs of chronic malnutrition with a low albumin. The patient reports that he is also having several episodes of diarrhea a day. Stools have been tested twice for C. diff and returned negative. Stool for fecal leukocytes and bacterial pathogens are pending. The patient has been noted to be anemic on admission with dilutional, anemia worsening during his hospital stay. He reports no abdominal pain, no blood in his stool, no vomiting of blood. He has never had a colonoscopy. PAST MEDICAL HISTORY: Remarkable for type 2 diabetes, benign prostatic hypertrophy, hypertension and vitamin D deficiency. MEDICATIONS: Aspirin, atenolol, hydrochlorothiazide, Januvia, Lantus, Mobic, lisinopril, metformin, Flomax, vitamin B12, and vitamin D. ALLERGIES: None. FAMILY HISTORY: Noncontributory. 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 He is single. He is a former smoker. He recently was traveling and was in an office building that had stagnant water. PHYSICAL EXAMINATION: GENERAL: The patient appears somewhat pale but in no acute distress. ABDOMEN: Soft. Bowel sounds are normal. No masses or hepatosplenomegaly, no tenderness. IMPRESSION AND PLAN: The patient has anemia, probably from chronic disease, it is normochromic normocytic, although stool was heme positive. The patient has been septic for methicillin sensitive staph, it is currently being treated. He appears to have suffered a myocardial infarction as well and is scheduled to be considered for a heart catheterization in the next day or two. In the setting of acute myocardial infarction, endoscopic evaluation is relatively contraindicated and lesser signs of gross active bleeding. We will continue to follow the patient during his hospital stay. We will check stool for ova and parasites and will also get a B12 and folate level. We will continue to follow the patient during his hospital stay.
[2017-03-03] VITALS (20 sets, daily range): BP systolic 116–147; BP diastolic 56–89; PULSE 84–125; TEMP 36.4–37.4; O2SAT 95–98; BMI 22.3
[2017-03-03 04:56] LABS: HEMATOCRIT 29.3 % (42-52); MEAN CELL VOLUME 90.2 fL (80-100); MEAN CORPUSCULAR HEMOGLOBIN 30.2 pg (25-34); MEAN CORPUSCULAR HGB CONC 33.4 g/dl (32-36); MEAN PLATELET VOLUME 9.2 fL (7.4-10.4); PLATELET COUNT 573 K/uL (130-400); RED BLOOD COUNT 3.25 M/uL (4.7-6.1); WHITE BLOOD COUNT 27.98 K/uL (4.8-10.8)
[2017-03-03 05:10] LABS: INR 1.2 (0.9-1.1); PROTHROMBIN TIME (PATIENT) 13.2 SECONDS (9.0-12.0)
[2017-03-03 05:27] LABS: BUN/CREATININE RATIO 24.5 (10-20); CALCIUM 8.1 mg/dl (8.5-10.1); CREATININE 1.4 mg/dl (0.60-1.40); POTASSIUM 3.8 mmol/L (3.5-5.1)
[2017-03-03 05:30] LABS: ALB/GLOB RATIO 0.4 (0.9-2)
[2017-03-03 05:34] LABS: BASO ABS # 0.01 K/uL (0-0.2); COMPLETE YES; EOS % 1.1 %; IG% 1.1 %; LYMPH ABS # 2.23 K/uL (1.2-3.4); MONO % 3.4 %; NEUT % 86.4 %
[2017-03-03 06:03] LABS: ESTIMATED AVERAGE GLUCOSE 200 mg/dl; HA1C FLAG Normal (Normal)
[2017-03-03 07:48] LABS: MAGNESIUM 1.6 mg/dl (1.8-2.4); PHOSPHORUS 2.1 mg/dl (2.5-4.9)
[2017-03-03] MEDS: BOOST GLUCOSE CONTROL PO SCH ×3 (08:44→16:10)
[2017-03-03] MEDS: THIAMINE HCL 100 MG TAB PO SCH (08:45)
[2017-03-03] MEDS: MULTIVITAMIN TAB PO SCH (08:45)
[2017-03-03] MEDS: MAGNESIUM SULFATE 1GM / D5W 1 GM in PREMIXED IN D5W 100 ML IV SCH ×2 (08:45→10:30)
[2017-03-03] MEDS: PANTOprazole INJ 80 MG in DEXTROSE 5% 100ML IV SCH (08:45)
[2017-03-03] MEDS ORDERED: LEVALBUTEROL/IPRATROPIUM NEB INH PRN (09:00)
[2017-03-03] MEDS: METOPROLOL SUCC 25MG EXT REL TAB PO SCH (09:03)
[2017-03-03] MEDS: LACTOBACILLUS ACIDOPHILUS (FLORANEX) TAB PO SCH ×3 (09:03→16:12)
[2017-03-03] MEDS: CHOLECALCIFEROL 1000 INTER.UNIT TAB PO SCH (09:04)
[2017-03-03] MEDS: TAMSULOSIN HCL 0.4 MG CAP PO SCH (09:04)
[2017-03-03] MEDS: CYANOCOBALAMIN 500 MCG TAB (VIT B-12) PO SCH (09:05)
[2017-03-03] MEDS: INSULIN ASPART 100 UNITS/ML 3 ML PEN SC SCH ×5 (09:13→20:32)
[2017-03-03] MEDS: HEPARIN SOD 5000 UNIT/0.5 ML CARP SQ SCH ×2 (09:13→20:33)
[2017-03-03] MEDS ORDERED: IPRATROPIUM BROMIDE NEB SOLN 0.02% 2.5 ML VIAL INH PRN (09:15)
[2017-03-03] MEDS: ASPIRIN 81 MG ECTAB PO SCH (09:15)
[2017-03-03] MEDS ORDERED: LEVALBUTEROL 0.63MG/3 ML NEB INH PRN (09:15)
[2017-03-03] MEDS ORDERED: POTASSIUM PHOSPHATE INJ 18 MMOL in SODIUM CHLORIDE 0.9% 500ML 500 ML IV ONE (09:30)
[2017-03-03] MEDS ORDERED: VANCOMYCIN TROUGH SCH (10:30)
--- NOTE | 2017-03-03 11:06 | Critical Care Progress Note ---
Critical Care Progress Note Date of Service Mar 03, 2017. ICU Day ICU Day Number: [address] Hopson Subjective Patient with no acute events overnight Had two episodes of loose bowel motions overnight (no jose daniel blood or mucus) Says that elbow pain has much improved Dr. Hopson thoroughly discussed the plan with patient and sister and all sides were in agreement with plan moving forward Patient denied any abdominal pain, vomiting or constipation Patient denied any chest pain, palpitations or shortness of breath Patient denied any fevers, night sweats or chills Objective General: Middle aged male, in no distress HEENT: Dry oral mucosa, NC/AT no lymphadenopathy, non palpable thyroid gland Lungs: clear to auscultation b/l with no wheezes, rales or rhonchi, patient not using any accessory muscles of respiration CVS: S1S2 regular, holosystolic murmur with no radiation to carotids, JVD elevated 3/4 to angle of mandible upon doing hepatojugular reflex, no peripheral edema Abdomen: soft, non-tender, non-distended, normal bowel sounds, non distended and no rebound or guarding Back: no CVA tenderness Ext: No pedal edema, no cyanosis. strong peripheral pulses. mild erythema of right elbow, and mild tenderness, patient is able to fully flex right elbow but unable to fully extend SALES EXEC: AAO x 3, no focal deficit Neuro: 5/5 power in both lower extremities, 5/5 power in left upper extremity, 5 /5 power in right upper extremity Current SOFA Score SOFA Score Response (Comments) Value Platelets (x10) > 150 0 Bilirubin (mg/dL) < 1.2 0 Julia Coma Score 15 0 Level of Hypotension No Hypotension 0 Creatinine (mg/dL) 1.2 - 1.9 1 Total 1 Assessment & Plan 67 year old male with uncontrolled DM who presented with septic shock secondary to obstructive uropathy. While in the hospital he has also had an NSTEMI. He is on hospital day 5 Neuro - patient with RAAS of 0 and negative CAM - is receiving tylenol for elbow pain (Xray showed no acute osseous injury) ID - urine culture grew MSSA and pansensitive - 1/2 blood cultures grew staph aureus and ott sensitive, repeat blood cultures drawn - Spiked temp to 37.7 overnight and WCC trending up ---> today 36 - Urology suggested bactrim; however ID decdided to start patient on Vanc 250mg qid PO and ceftriaxone IV q24 -- stopped vancomycin as cdiff negative - Likely source of infection (prostatitis?, bladder?) Cardiac - Non ST elevation [place], echo showed EF of 35-40 with global hypokinesis, patient increased lopressor to 25 bid as per cardiology recommendation, KORI inhibitor held for now due to patients renal function. Can restart aspirin as Hgb stable - Renal duplex ordered before reintroducing KORI - Dr. Medina on board and suggest patient should get angiography in the next 1- 2 days; however at the moment the patient is refusing any further intervention - Pulmonary hypertension- could be due to decreased EF and will follow as cardiac meds are introduced and clinic picture improves - Mag 1.6 and repleted with 2g IV, Phos 2.1 this morning - Hallman catheter currently in place - CT scan showed possibility of 4 mm stone at vesicoureteral junction (repeat imaging? stone vs mass? may need further intervention depending on clinical picture) - Urology suggest retention is due to prostatits (recommend bactrim; however ID on board and suggest vanc and ceftriaxone) and recommend outpatient voiding trail in 2 weeks - tamsulosin held for now as patient with hallman in place - PSA 0.266 earlier in hospital stay GI - 6 loose bowel motions yesterday repeat c diff negative and patient taken off of enteric precautions - Haem occult blood + and Hgb 9.8 - Pantoprazole decreased to 40mg OD for GI prophylaxis - Patient has never had a colonoscopy before - GI consulted to follow and will scope when patient is more stable as bleeding has stopped and hgb stable, they ordered stool for ova and parasite - LFT's currently trending down, were elevated likely due to fluid overload from NSTEMI, will continue to monitor Haem - Hgb 9.8 this morning - Received 3 units of PRBC in hospital to date - WBC 28 this morning and platelet 573 - Peripheral smear consistent with infectious process. And retic count wnl. Haem /Onc on board. - DVT prophylaxis with heparin 5000 bid Endo - HbA1c was 8.6 yesterday which likely abnormal as patient received 1 unit of PRBC yesterday and HbA1c before was 13.1 two months ago - Currently on 40 units of glargine daily with ISS - Diabetes education consult Resp - Pulse ox 96% on room air - Patient currently in no respiratory distress - 20+ pack smoking history, ordered prn xopenex nebs MSK - Right elbow painful with erythema, warmth and tenderness yesterday - XRAY of elbow showed no acute abnormalities - Ortho consulted and told that it is likely to be haematoma- much improved today Access - Order to remove left IJ - 3 peripheral lines on right upper extremity Dispo - PT/OT ordered, Activity order - Lives home alone - Transfer to floors today - Sister Raisa has been here, will likely take brother home to her home in [place] once patient no longer requiring hospital stay Resident Physician Supervision Note: Dr. Saavedra was resident physician during care of patient. I separately evaluated patient and did history and exam. I discussed the case with the resident and generally agree with the findings and plan. Discussed treatment plan with patient and patient's sister today. Stable for downgrade to MNF. Renal artery duplex demonstrates no stenosis. Documented By: Sin Hopson DO Consults & Procedures Consultants: Urology - Dr Marrero Cardiology - Dr Medina ID - Dr Avalos Ortho Procedures: 02/27/17 - Left IJ TLC Data Medications: Current Inpatient Medications Medications (Trade) Dose Ordered Sig/Nilda Route Start Time Stop Time Status Last Admin Dose Admin Acetaminophen (Tylenol Tab) 650 mg Q4H PRN PO 02/27/17 15:30 03/29/17 15:29 03/02/17 13:37 650 MG Al Hydrox/Mg Hydrox/Simethicone (Maalox Max Susp) 15 ml Q4H PRN PO 02/27/17 15:30 03/29/17 15:29 Magnesium Hydroxide (Milk Of Magnesia Susp) 30 ml Q12H PRN PO 02/27/17 15:30 03/29/17 15:29 Ondansetron HCl (Zofran Inj) 4 mg Q6H PRN IV 02/27/17 15:30 03/29/17 15:29 Polyethylene (Miralax Powder Packet) 17 gm DAILY PRN PO 02/27/17 15:30 03/29/17 15:29 Aspirin (Ecotrin Tab) 81 mg DAILY PO 02/28/17 09:00 03/30/17 08:59 Future hold 03/03/17 09:15 81 MG Cholecalciferol (Vitamin D Tab) 1,000 inter.unit DAILY PO 02/28/17 09:00 03/30/17 08:59 03/03/17 09:04 1,000 INTER.UNIT Cyanocobalamin (Vitamin B-12 Tab) 1,000 mcg DAILY PO 02/28/17 09:00 03/30/17 08:59 03/03/17 09:05 1,000 MCG Tamsulosin HCl (Flomax Cap) 0.4 mg DAILY PO 02/28/17 09:00 03/30/17 08:59 Future Hold 03/03/17 09:04 0.4 MG Glucose (Glucose 40% Gel) 15-30 GRAMS 15 GRAMS... UD PRN PO 02/27/17 17:30 03/29/17 17:29 Glucose (Glucose Chew Tab) 4-8 Tablets 4 Tabl... UD PRN PO 02/27/17 17:30 03/29/17 17:29 Dextrose (Dextrose 50% 50ML Syringe) 25-50ML OF 50% DW IV FOR... UD PRN IV 02/27/17 17:30 03/29/17 17:29 03/02/17 00:01 50 ML Glucagon (Glucagon Inj) 1 mg UD PRN SQ 02/27/17 17:30 03/29/17 17:29 Insulin Aspart (novoLOG ASPART) SLIDING SCALE If CARB RA... ACHS SC 03/01/17 16:00 03/31/17 15:59 03/03/17 09:13 7 UNITS Heparin Sodium (Porcine) (Heparin 10 Unit/ ml 5 ml Flush) 5 ml PRN PRN FLUSH 03/01/17 23:30 03/31/17 23:29 Enteral Nutritional Formula (Boost Glucose Control) 1 can TIDM PO 03/02/17 07:15 04/01/17 07:14 03/03/17 08:44 1 CAN Heparin Sodium (Porcine) (Heparin Sq 5000 Unit/0.5ml) 5,000 unit Q12H SQ 03/03/17 09:00 04/02/17 08:59 03/03/17 09:13 5,000 UNIT Ceftriaxone Sodium 2000 mg/ Dextrose 70 ml @ 100 mls/hr Q24H IV 03/02/17 14:00 03/16/17 13:59 03/02/17 14:10 100 MLS/HR Miscellaneous Information (Consult Glycemic Management Pharmacy) 1 ea UD PRN N/A 03/02/17 13:15 04/01/17 13:14 Pantoprazole Sodium 80 mg/ Dextrose 120 ml @ 240 mls/hr Q12H IV 03/02/17 21:00 03/03/17 11:00 03/03/17 08:45 240 MLS/HR Insulin Glargine (Lantus Solostar Pen) 30 units DAILY@1700 SC 03/02/17 17:00 04/01/17 16:59 03/02/17 17:03 30 UNITS Lactobacillus Acidophilus (Floranex Tab) 4 tab TIDM PO 03/03/17 07:15 04/02/17 07:14 03/03/17 09:03 4 TAB Multivitamins (Multivitamin Tab) 1 tab QAM PO 03/03/17 09:00 04/02/17 08:59 03/03/17 08:45 1 TAB Thiamine HCl (Vitamin B-1 Tab) 100 mg QAM PO 03/03/17 09:00 04/02/17 08:59 03/03/17 08:45 100 MG Ipratropium [place] (Atrovent 0.02% 0.5MG/2.5ML Neb) 0.5 mg Q6H PRN INH 03/03/17 09:15 04/02/17 09:14 Levalbuterol (Xopenex 0.63 Mg/ 3 Ml Neb) 0.63 mg Q6H PRN INH 03/03/17 09:15 04/02/17 09:14 Potassium Phosphate 18 mmol/ Sodium Chloride 506 ml @ 88 mls/hr TODAY@0930 ONCE IV 03/03/17 09:30 03/03/17 15:14 03/03/17 10:30 88 MLS/HR Pantoprazole Sodium 40 mg/ Syringe 10 ml @ 5 mls/min DAILY@11 IV 03/03/17 16:00 04/02/17 15:59 Psyllium Hydrophilic Mucilloid (Metamucil Powder) 1 pkt DAILY@1100 PO 03/03/17 11:00 04/02/17 10:59 Metoprolol Tartrate (Lopressor Tab) 25 mg BID PO 03/03/17 21:00 04/02/17 20:59 Folic Acid (Folvite Tab) 1 mg QAM PO 03/04/17 09:00 04/03/17 08:59 Vital Signs: Date Time Temp Pulse Resp B/P (MAP) Pulse Ox O2 Delivery O2 Flow Rate FiO2 03/03/17 10:01 125 21 134/77 (96) 97 Room Air 03/03/17 09:01 104 26 128/72 (90) 96 Room Air 03/03/17 08:01 122 24 142/85 (104) 97 Room Air 03/03/17 06:01 106 24 138/72 (94) 95 03/03/17 05:01 37.4 99 21 125/67 (86) 96 03/03/17 04:01 98 19 132/74 (93) 95 03/03/17 04:00 97 Room Air 03/03/17 03:01 98 27 124/72 (89) 96 03/03/17 02:01 97 25 125/71 (89) 96 03/03/17 01:01 102 22 116/73 (87) 97 03/03/17 00:01 37.2 104 29 134/69 (90) 96 Room Air 03/03/17 00:01 104 29 134/69 (90) 96 03/03/17 00:00 102 25 97 03/02/17 23:59 97 Room Air 03/02/17 22:00 95 22 120/70 (87) 97 03/02/17 20:00 Room Air 03/02/17 20:00 36.5 113 21 123/66 (85) 95 03/02/17 18:00 98 26 130/71 (90) 96 Room Air 03/02/17 16:00 36.6 105 21 129/71 (90) 94 03/02/17 16:00 Room Air 03/02/17 14:45 108 24 129/71 95 03/02/17 14:00 109 32 123/65 (84) 96 Room Air 03/02/17 13:45 112 24 126/70 95 03/02/17 12:45 37.0 120 24 126/70 96 03/02/17 12:15 37.0 121 16 126/71 96 03/02/17 12:00 36.8 104 20 124/68 (86) 96 Room Air 03/02/17 12:00 Room Air 03/02/17 11:57 36.8 120 20 126/71 95 Laboratory Results: Last 24 Hours Test 03/02/17 11:26 03/02/17 16:15 03/02/17 17:07 03/02/17 19:30 Bedside Glucose 147 mg/dl 243 mg/dl Hemoglobin 9.7 g/dL Hematocrit 28.6 % Test 03/02/17 19:35 03/02/17 21:20 03/03/17 04:42 03/03/17 06:17 Bedside Glucose 225 mg/dl 174 mg/dl Hemoglobin 9.6 g/dL 9.8 g/dL Hematocrit 28.9 % 29.3 % Vitamin B12 Level 1651 pg/mL Folate 5.17 ng/mL White Blood Count 27.98 K/uL Red Blood Count 3.25 M/uL Mean Corpuscular Volume 90.2 fL Mean Corpuscular Hemoglobin 30.2 pg Mean Corpuscular Hemoglobin Concent 33.4 g/dl Platelet Count 573 K/uL Mean Platelet Volume 9.2 fL Neutrophils (%) (Auto) 86.4 % Lymphocytes (%) (Auto) 8.0 % Monocytes (%) (Auto) 3.4 % Eosinophils (%) (Auto) 1.1 % Basophils (%) (Auto) 0.0 % Neutrophils # (Auto) 24.19 K/uL Lymphocytes # (Auto) 2.23 K/uL Monocytes # (Auto) 0.94 K/uL Eosinophils # (Auto) 0.31 K/uL Basophils # (Auto) 0.01 K/uL RDW Standard Deviation 50.4 fL RDW Coefficient of Variation 15.2 % Immature Granulocyte % (Auto) 1.1 % Immature Granulocyte # (Auto) 0.30 K/uL Red Blood Cell Morphology Unremarkable Prothrombin Time 13.2 SECONDS Prothromb Time International Ratio 1.2 Venous Blood pH 7.40 Sodium Level 140 mmol/L Potassium Level 3.8 mmol/L Chloride Level 112 mmol/L Carbon Dioxide Level 23 mmol/L Anion Gap 5.0 mmol/L Blood Urea Nitrogen 34 mg/dl Creatinine 1.40 mg/dl Est Creatinine Clear Calc Drug Dose 52.3 ml/min Estimated GFR () 59.0 Estimated GFR (Non- 50.9 BUN/Creatinine Ratio 24.5 Random Glucose 179 mg/dl Estimated Average Glucose 200 mg/dl Hemoglobin A1c 8.6 % Calcium Level 8.1 mg/dl Phosphorus Level 2.1 mg/dl Magnesium Level 1.6 mg/dl Total Bilirubin 0.4 mg/dl Direct Bilirubin 0.2 mg/dl Aspartate Amino Transf (AST/SGOT) 19 U/L Alanine Aminotransferase (ALT/SGPT) 24 U/L Alkaline Phosphatase 287 U/L Total Protein 6.5 gm/dl Albumin 1.9 gm/dl Globulin 4.6 gm/dl Albumin/Globulin Ratio 0.4
--- NOTE | 2017-03-03 11:11 | Family Medicine Progress Note ---
Progress Note Date of Service Mar 03, 2017. Subjective Pt evaluation today including: conversation w/ patient, physical exam, chart review, lab review Pain: Reports L arm pain PO Intake: tolerating reg diet Voiding: hallman catheter in place Reports persistent L arm pain and swelling from fall last week. Reports 2 episodes of loose stools since midnight. Otherwise denies having any cp, sob, abd pain, n/v, STEPHENS/dizziness. Pt reported family being concerned about too many doctors caring for him and would like to transport him to [place]. Family wants to talk to doctors about it later this AM when they arrive Constitutional: No fever Respiratory: No shortness of breath Cardiovascular: No chest pain Abdomen: + diarrhea, No pain, No nausea, No vomiting Musculoskeletal: + swelling, + problem reported (L elbow/hand pain and swelling from fall) Medications Current Inpatient Medications Medications (Trade) Dose Ordered Sig/Nilda Route Start Time Stop Time Status Last Admin Dose Admin Acetaminophen (Tylenol Tab) 650 mg Q4H PRN PO 02/27/17 15:30 03/29/17 15:29 03/02/17 13:37 650 MG Al Hydrox/Mg Hydrox/Simethicone (Maalox Max Susp) 15 ml Q4H PRN PO 02/27/17 15:30 03/29/17 15:29 Magnesium Hydroxide (Milk Of Magnesia Susp) 30 ml Q12H PRN PO 02/27/17 15:30 03/29/17 15:29 Ondansetron HCl (Zofran Inj) 4 mg Q6H PRN IV 02/27/17 15:30 03/29/17 15:29 Polyethylene (Miralax Powder Packet) 17 gm DAILY PRN PO 02/27/17 15:30 03/29/17 15:29 Aspirin (Ecotrin Tab) 81 mg DAILY PO 02/28/17 09:00 03/30/17 08:59 Future hold 03/03/17 09:15 81 MG Cholecalciferol (Vitamin D Tab) 1,000 inter.unit DAILY PO 02/28/17 09:00 03/30/17 08:59 03/03/17 09:04 1,000 INTER.UNIT Cyanocobalamin (Vitamin B-12 Tab) 1,000 mcg DAILY PO 02/28/17 09:00 03/30/17 08:59 03/03/17 09:05 1,000 MCG Tamsulosin HCl (Flomax Cap) 0.4 mg DAILY PO 02/28/17 09:00 03/30/17 08:59 Future Hold 03/03/17 09:04 0.4 MG Glucose (Glucose 40% Gel) 15-30 GRAMS 15 GRAMS... UD PRN PO 02/27/17 17:30 03/29/17 17:29 Glucose (Glucose Chew Tab) 4-8 Tablets 4 Tabl... UD PRN PO 02/27/17 17:30 03/29/17 17:29 Dextrose (Dextrose 50% 50ML Syringe) 25-50ML OF 50% DW IV FOR... UD PRN IV 02/27/17 17:30 03/29/17 17:29 03/02/17 00:01 50 ML Glucagon (Glucagon Inj) 1 mg UD PRN SQ 02/27/17 17:30 03/29/17 17:29 Insulin Aspart (novoLOG ASPART) SLIDING SCALE If CARB RA... ACHS SC 03/01/17 16:00 03/31/17 15:59 03/03/17 09:13 7 UNITS Heparin Sodium (Porcine) (Heparin 10 Unit/ ml 5 ml Flush) 5 ml PRN PRN FLUSH 03/01/17 23:30 03/31/17 23:29 Enteral Nutritional Formula (Boost Glucose Control) 1 can TIDM PO 03/02/17 07:15 04/01/17 07:14 03/03/17 08:44 1 CAN Heparin Sodium (Porcine) (Heparin Sq 5000 Unit/0.5ml) 5,000 unit Q12H SQ 03/03/17 09:00 04/02/17 08:59 03/03/17 09:13 5,000 UNIT Ceftriaxone Sodium 2000 mg/ Dextrose 70 ml @ 100 mls/hr Q24H IV 03/02/17 14:00 03/16/17 13:59 03/02/17 14:10 100 MLS/HR Miscellaneous Information (Consult Glycemic Management Pharmacy) 1 ea UD PRN N/A 03/02/17 13:15 04/01/17 13:14 Insulin Glargine (Lantus Solostar Pen) 30 units DAILY@1700 SC 03/02/17 17:00 04/01/17 16:59 03/02/17 17:03 30 UNITS Lactobacillus Acidophilus (Floranex Tab) 4 tab TIDM PO 03/03/17 07:15 04/02/17 07:14 03/03/17 09:03 4 TAB Multivitamins (Multivitamin Tab) 1 tab QAM PO 03/03/17 09:00 04/02/17 08:59 03/03/17 08:45 1 TAB Thiamine HCl (Vitamin B-1 Tab) 100 mg QAM PO 03/03/17 09:00 04/02/17 08:59 03/03/17 08:45 100 MG Ipratropium [place] (Atrovent 0.02% 0.5MG/2.5ML Neb) 0.5 mg Q6H PRN INH 03/03/17 09:15 04/02/17 09:14 Levalbuterol (Xopenex 0.63 Mg/ 3 Ml Neb) 0.63 mg Q6H PRN INH 03/03/17 09:15 04/02/17 09:14 Potassium Phosphate 18 mmol/ Sodium Chloride 506 ml @ 88 mls/hr TODAY@0930 ONCE IV 03/03/17 09:30 03/03/17 15:14 03/03/17 10:30 88 MLS/HR Pantoprazole Sodium 40 mg/ Syringe 10 ml @ 5 mls/min DAILY@11 IV 03/03/17 16:00 04/02/17 15:59 Psyllium Hydrophilic Mucilloid (Metamucil Powder) 1 pkt DAILY@1100 PO 03/03/17 11:00 04/02/17 10:59 Metoprolol Tartrate (Lopressor Tab) 25 mg BID PO 03/03/17 21:00 04/02/17 20:59 Folic Acid (Folvite Tab) 1 mg QAM PO 03/04/17 09:00 04/03/17 08:59 Objective Vital Signs Date Time Temp Pulse Resp B/P (MAP) Pulse Ox O2 Delivery O2 Flow Rate FiO2 03/03/17 10:01 125 21 134/77 (96) 97 Room Air 03/03/17 09:01 104 26 128/72 (90) 96 Room Air 03/03/17 08:01 122 24 142/85 (104) 97 Room Air 03/03/17 06:01 106 24 138/72 (94) 95 03/03/17 05:01 37.4 99 21 125/67 (86) 96 03/03/17 04:01 98 19 132/74 (93) 95 03/03/17 04:00 97 Room Air 03/03/17 03:01 98 27 124/72 (89) 96 03/03/17 02:01 97 25 125/71 (89) 96 03/03/17 01:01 102 22 116/73 (87) 97 03/03/17 00:01 37.2 104 29 134/69 (90) 96 Room Air 03/03/17 00:01 104 29 134/69 (90) 96 03/03/17 00:00 102 25 97 03/02/17 23:59 97 Room Air 03/02/17 22:00 95 22 120/70 (87) 97 03/02/17 20:00 Room Air 03/02/17 20:00 36.5 113 21 123/66 (85) 95 03/02/17 18:00 98 26 130/71 (90) 96 Room Air 03/02/17 16:00 36.6 105 21 129/71 (90) 94 03/02/17 16:00 Room Air 03/02/17 14:45 108 24 129/71 95 03/02/17 14:00 109 32 123/65 (84) 96 Room Air 03/02/17 13:45 112 24 126/70 95 03/02/17 12:45 37.0 120 24 126/70 96 03/02/17 12:15 37.0 121 16 126/71 96 03/02/17 12:00 36.8 104 20 124/68 (86) 96 Room Air 03/02/17 12:00 Room Air 03/02/17 11:57 36.8 120 20 126/71 95 Physical Exam General Appearance: + thin, + pertinent finding (pale and ill appearing) Eyes: sclerae normal Respiratory/Chest: lungs clear, normal breath sounds, no respiratory distress Cardiovascular: regular rate, rhythm Abdomen: normal bowel sounds, non tender, no organomegaly Extremities: + pertinent finding (L elbow and hand swelling, localized erythema and slightly increased warmth) Neurologic/Psychiatric: alert, oriented x 3 Laboratory Results 03/03/17 04:42 Red Blood Count 3.25, Mean Corpuscular Volume 90.2, Mean Corpuscular Hemoglobin 30.2, Mean Corpuscular Hemoglobin Concent 33.4, Mean Platelet Volume 9.2, Neutrophils (%) (Auto) 86.4, Lymphocytes (%) (Auto) 8.0, Monocytes (%) (Auto) 3.4, Eosinophils (%) (Auto) 1.1, Basophils (%) (Auto) 0.0, Neutrophils # (Auto) 24.19, Lymphocytes # (Auto) 2.23, Monocytes # (Auto) 0.94, Eosinophils # (Auto) 0.31, Basophils # (Auto) 0.01 03/03/17 04:42 Test 03/02/17 19:30 03/02/17 21:20 03/03/17 04:42 03/03/17 06:17 Vitamin B12 Level 1651 pg/mL (211-911) Folate 5.17 ng/mL (>5.38) White Blood Count 27.98 K/uL (4.8-10.8) Red Blood Count 3.25 M/uL (4.7-6.1) Hemoglobin 9.8 g/dL (14.0-18.0) Hematocrit 29.3 % (42-52) Mean Corpuscular Volume 90.2 fL (80-100) Mean Corpuscular Hemoglobin 30.2 pg (25-34) Mean Corpuscular Hemoglobin Concent 33.4 g/dl (32-36) Platelet Count 573 K/uL (130-400) Mean Platelet Volume 9.2 fL (7.4-10.4) Neutrophils (%) (Auto) 86.4 % Lymphocytes (%) (Auto) 8.0 % Monocytes (%) (Auto) 3.4 % Eosinophils (%) (Auto) 1.1 % Basophils (%) (Auto) 0.0 % Neutrophils # (Auto) 24.19 K/uL (1.4-6.5) Lymphocytes # (Auto) 2.23 K/uL (1.2-3.4) Monocytes # (Auto) 0.94 K/uL (0.11-0.59) Eosinophils # (Auto) 0.31 K/uL (0-0.5) Basophils # (Auto) 0.01 K/uL (0-0.2) RDW Standard Deviation 50.4 fL (36.4-46.3) RDW Coefficient of Variation 15.2 % (11.5-14.5) Immature Granulocyte % (Auto) 1.1 % Immature Granulocyte # (Auto) 0.30 K/uL (0.00-0.02) Red Blood Cell Morphology Unremarkable Prothrombin Time 13.2 SECONDS (9.0-12.0) Prothromb Time International Ratio 1.2 (0.9-1.1) Venous Blood pH 7.40 (7.36-7.41) Anion Gap 5.0 mmol/L (3-11) Est Creatinine Clear Calc Drug Dose 52.3 ml/min Estimated GFR () 59.0 Estimated GFR (Non- 50.9 BUN/Creatinine Ratio 24.5 (10-20) Estimated Average Glucose 200 mg/dl Hemoglobin A1c 8.6 % (4.5-5.6) Calcium Level 8.1 mg/dl (8.5-10.1) Phosphorus Level 2.1 mg/dl (2.5-4.9) Magnesium Level 1.6 mg/dl (1.8-2.4) Total Bilirubin 0.4 mg/dl (0.2-1) Direct Bilirubin 0.2 mg/dl (0-0.2) Aspartate Amino Transf (AST/SGOT) 19 U/L (15-37) Alanine Aminotransferase (ALT/SGPT) 24 U/L (12-78) Alkaline Phosphatase 287 U/L (45-117) Total Protein 6.5 gm/dl (6.4-8.2) Albumin 1.9 gm/dl (3.4-5.0) Globulin 4.6 gm/dl (2.5-4.0) Albumin/Globulin Ratio 0.4 (0.9-2) Bedside Glucose 174 mg/dl (70-99) Assessment and Plan 67 yo male admitted to the ICU with Septic shock 2/2 to urosepsis, post obstructive MACY. Currently with stable anemia post 1 unit pRBC transfusion and continues diarrhea (heme occult + on 03/02) Septic shock -Secondary to UTI with underlying obstructive uropathy -Pt had a recent hospitalization UTI/Prostatitis -Central line in place -Stopped pressors 03/01 -WBC downtrending again from 36.25 (03/02) to 27.98 today -Pt had 1 positive bcx-Staph Aureus and positive UCx for MSSA Staph Aureus - 2/ 2 septicemia from source -ID narrowed tx from empiric with Vancomycin and Zosyn to Recephin for 2 weeks -BCx repeated to ensure neg post empiric treatment given elevated WBC. Pending - if positive will consider SUSIE -Other possible cause of elevated WBC - prostatitis -Oncology consulted by pilates instructor team: cytosis & leukocytosis reactive to sepsis given normal spleen and lack of L shift Diarrhea -Given elevated WBC: C-diff toxin reordered and neg -GI also ordered WBC smear (neg), shiga toxin test, and stool culture - pending -Likely Antibiotic related, probiotics initiated Continued Anemia -Present on arrival but considered dilutional -Also had hematuria which resolved -Received 2 units on 02/28 for 7.5 Hgb -Hgb downtrending again on 03/02 to 7.4, transfused with 1 unit pRBCs -heme occult - positive -Coags: INR 1.2 and PT 13.2 -GI consult placed for evaluation of GI source of bleeding given +heme occult but did not want to scope him given lack of active bleeding in light of acute illness -This AM H&H stable at 9.8 & 29.3 -Follow CBC - transfuse if Hgb below 6.5 per pilates instructor recs -Continue PPI R Elbow pain and swelling s/p falling on it at home last - stable -Ortho evaluated: traumatic hematoma/inflammation causing discomfort -Sling and Ice for comfort -F/u outpatient as needed NSTEMI - EF 44% -2/2 shock. Trops elevated x3 -ECHO shows hypokinesis of the left ventricle -BB - metoprolol 25mg BID initiated for tachycardia -Hold ASA for concerns of bleeding -Hold KORI for MACY -Per Cards stable for angiography in the next day or 2 but patient hesitant MACY 2/2 obstructive uropathy - improving -Baseline Cr 1 -Cr improved from 1.60 on 03/02 to 1.40 this AM -Hallman in place for flaccid bladder (pt non-complaint with self int caths). Keep hallman for 2 weeks, urology consulted and following -Follow BMP BPH -Continue Flomax (Tamsulosin) per urology note DKA -Pt came in with high sugars likely exacerbated by infection -Anion gap acidosis, elevated beta-hydroxybutyrate, normal lactic acid -PMHX DM2, noncompliant, HbA1c 8.6 (03/02) -Now on Lantus/NovoLog -Keeping BG within 140-180 range in light of acute stress DVT prophylaxis Lovenox held for concerns of bleeding Heparin initiated by pilates instructor given benefits outweigh risks of GI bleed Resident Involvement: Resident Care Provided Care Provided: [facility] Reviewed: Pt Seen/Exam by Me History Resident Physician Supervision Note: I interviewed and examined the patient. Discussed with Dr. Cowart and agree with findings and plan as documented in the note. Any exceptions or clarifications are listed here: Patient continues with diarrhea. He has had some sinus tachycardia and his beta callie dose was increased today. Hemoglobin remained stable and renal function is continuing to improve. The patient has no other complaints Vital signs reviewed Appears chronically ill, pale, lying in bed with flat affect but awake and alert and oriented Anicteric sclerae, trachea is midline Regular rhythm with mild tachycardia, no murmurs gallops rubs Lungs clear to auscultation bilaterally Abdomen soft nontender nondistended positive bowel sounds, Hallman in place draining clear yellow urine Extremities no edema, 2+ dorsalis pedis pulses bilaterally Skin no rashes 67-year-old male here with postobstructive acute kidney injury, severe sepsis from UTI with MSSA UTI and bacteremia. Also with worsening anemia, Hemoccult positive stool, and diarrhea. I discussed the case with the pilates instructor today and he is stable for transfer to telemetry unit -Renal function improving, suspect was from sepsis and dehydration, continue to follow renal function and renally dose medications, avoid nephrotoxins -Continue Rocephin daily for MSSA UTI and bacteremia for total of 2 weeks, echo without vegetation on the valves, follow repeat blood cultures and if positive, consider SUSIE if repeat culture positive - leukocytosis is improving today, repeat repeated C. difficile which was negative, and no other new source of infection found-we'll follow CBC -anemia with stable hemoglobin today, no gross bleeding, Appreciate GI consultation, no plans for endoscopy at this time given his critical status unless he developed gross GI bleeding -For the diarrhea, could be antibiotic associated-continue probiotics and consider adding cholestyramine For his recent NSTEMI, correction to above-he is on aspirin 81 mg once daily, but holding KORI inhibitor for acute kidney injury, add on IV Lopressor when necessary for sinus tachycardia until increased his by mouth metoprolol improves his heart rate -Heparin subcutaneous for DVT prophylaxis started by pilates instructor-benefit of preventing DVT outweighs risk of occult GI bleeding but will cautiously follow the CBC Documented By: Maryellen Walters
--- NOTE | 2017-03-03 11:27 | DIAGNOSTIC IMAGING REPORT ---
DUPLEX RENAL ARTERY HISTORY: 67 years-old Male MACY in the setting of recent NSTEMI COMPARISON: CT abdomen and pelvis 02/28/2017, renal ultrasound 02/27/2017 TECHNIQUE: Duplex ultrasound of the renal arteries was obtained bilaterally assessing grayscale appearance, color and spectral flow. FINDINGS: Right kidney measures 12.8 cm in length. Mild perinephric edema on the right is redemonstrated with mild pelviectasis. Normal-appearing waveforms are present within the right renal artery and intraparenchymal arterial branches. Phasic flow is seen within the right renal vein. Peak systolic velocity measures up to 117 cm/s within the distal right renal artery. Moderate left-sided hydronephrosis is redemonstrated. Left kidney measures up to 13.8 cm in length. Normal-appearing arterial waveforms are present within the left renal artery and parenchymal arterial branches. No evidence of elevated peak systolic velocities. Triphasic flow is seen within the left renal vein. Peak systolic velocities measure up to 121 cm/s within the mid renal artery on the left. IMPRESSION: 1. Normal sonographic appearance of the bilateral renal arteries and veins. 2. Mild right and moderate left hydronephrosis redemonstrated. The above report was generated using voice recognition software. It may contain grammatical, syntax or spelling errors. Electronically signed by: Shmuel Garland M.D. 03/03/2017 11:26 AM Dictated Date/Time: 03/03/2017 11:20 AM
[2017-03-03] MEDS: PSYLLIUM 58.6% PWD PACK S\\F PO SCH (11:38)
--- NOTE | 2017-03-03 12:12 | Cardiology Follow-Up ---
Subjective Date of Service: Mar 03, 2017. Pt evaluation today including: conversation w/ patient, physical exam, chart review, lab review, review of studies, conversation w/ attending History of Present Illness The patient claims to be the doing about the same this morning. He has some knee pain. His right elbow pain is improved. He has what he describes as rib pain but this appears to be positional in nature. He denies significant breathing trouble. He denies any chest discomfort. He has had limited time out of bed. He denies any sense of palpitation. Social History Smoking Status: Former Smoker History of Alcohol Use: Yes ([facility] ) Review of Systems Respiratory: No shortness of breath Cardiac: No chest pain Objective Vital Signs Past 12 Hours Date Time Temp Pulse Resp B/P (MAP) Pulse Ox O2 Delivery O2 Flow Rate FiO2 03/03/17 10:01 125 21 134/77 (96) 97 Room Air 03/03/17 09:01 104 26 128/72 (90) 96 Room Air 03/03/17 08:01 122 24 142/85 (104) 97 Room Air 03/03/17 06:01 106 24 138/72 (94) 95 03/03/17 05:01 37.4 99 21 125/67 (86) 96 03/03/17 04:01 98 19 132/74 (93) 95 03/03/17 04:00 97 Room Air 03/03/17 03:01 98 27 124/72 (89) 96 03/03/17 02:01 97 25 125/71 (89) 96 03/03/17 01:01 102 22 116/73 (87) 97 Last Recorded Weight-Kilograms: 72.400 Physical Exam The patient is alert and oriented. Mood and affect appeared normal. He answered all questions appropriately. HEENT: Pupils are equal and reactive to light and accommodation. Extraocular movements are intact. The sclerae are anicteric. Neuro: Cranial nerves intact Neck: Patient's neck is supple. He has palpable carotid pulses bilaterally without bruits on auscultation. There is no evidence of jugular venous distention. The thyroid is not enlarged. Lungs: Clear to auscultation bilaterally. He has good air movement without use of accessory muscles. No rales wheezes or rhonchi. Cardiac: Heart demonstrates a regular rate and rhythm. Normal S1 and S2. Holosystolic murmur. Pulses: The patient has palpable radial pulses bilaterally that are equal in intensity Extremities: There was no evidence of hypoperfusion. There is no cyanosis or clubbing. There is no edema. He has some mild erythema and swelling involving the right elbow. Skin: I did not appreciate any rashes on examination today. Data Laboratory Results: Last 24 Hours Test 03/02/17 16:15 03/02/17 17:07 03/02/17 19:30 03/02/17 19:35 Bedside Glucose 243 mg/dl 225 mg/dl Hemoglobin 9.7 g/dL Hematocrit 28.6 % Test 03/02/17 21:20 03/03/17 04:42 03/03/17 06:17 Hemoglobin 9.6 g/dL 9.8 g/dL Hematocrit 28.9 % 29.3 % Vitamin B12 Level 1651 pg/mL Folate 5.17 ng/mL White Blood Count 27.98 K/uL Red Blood Count 3.25 M/uL Mean Corpuscular Volume 90.2 fL Mean Corpuscular Hemoglobin 30.2 pg Mean Corpuscular Hemoglobin Concent 33.4 g/dl Platelet Count 573 K/uL Mean Platelet Volume 9.2 fL Neutrophils (%) (Auto) 86.4 % Lymphocytes (%) (Auto) 8.0 % Monocytes (%) (Auto) 3.4 % Eosinophils (%) (Auto) 1.1 % Basophils (%) (Auto) 0.0 % Neutrophils # (Auto) 24.19 K/uL Lymphocytes # (Auto) 2.23 K/uL Monocytes # (Auto) 0.94 K/uL Eosinophils # (Auto) 0.31 K/uL Basophils # (Auto) 0.01 K/uL RDW Standard Deviation 50.4 fL RDW Coefficient of Variation 15.2 % Immature Granulocyte % (Auto) 1.1 % Immature Granulocyte # (Auto) 0.30 K/uL Red Blood Cell Morphology Unremarkable Prothrombin Time 13.2 SECONDS Prothromb Time International Ratio 1.2 Venous Blood pH 7.40 Sodium Level 140 mmol/L Potassium Level 3.8 mmol/L Chloride Level 112 mmol/L Carbon Dioxide Level 23 mmol/L Anion Gap 5.0 mmol/L Blood Urea Nitrogen 34 mg/dl Creatinine 1.40 mg/dl Est Creatinine Clear Calc Drug Dose 52.3 ml/min Estimated GFR () 59.0 Estimated GFR (Non- 50.9 BUN/Creatinine Ratio 24.5 Random Glucose 179 mg/dl Estimated Average Glucose 200 mg/dl Hemoglobin A1c 8.6 % Calcium Level 8.1 mg/dl Phosphorus Level 2.1 mg/dl Magnesium Level 1.6 mg/dl Total Bilirubin 0.4 mg/dl Direct Bilirubin 0.2 mg/dl Aspartate Amino Transf (AST/SGOT) 19 U/L Alanine Aminotransferase (ALT/SGPT) 24 U/L Alkaline Phosphatase 287 U/L Total Protein 6.5 gm/dl Albumin 1.9 gm/dl Globulin 4.6 gm/dl Albumin/Globulin Ratio 0.4 Bedside Glucose 174 mg/dl Imaging: EKG: Telemetry reviewed: Assessment and Plan 1. Non ST-elevation myocardial infarction. Clinically stable without any symptoms of chest discomfort or recurrent ischemia. I once again discussed the topic of coronary angiography with the patient. I expressed my concern that he has significant occult coronary disease and is at risk of additional events. The event in question was likely demand related given the prolonged period of hypotension, but he has several risk factors for coronary disease and has some reduced LV systolic function as well. At this time he has not agreed to a cardiac catheterization. His renal function is returning to normal, and I think a catheterization could be performed safely should he be agreeable in the future. 2. LV systolic failure: He is noted to have reduced LV systolic function on his echocardiogram. No overt symptoms or signs of pulmonary congestion or decompensation. Beta-callie was started and increased recently. An Dennis inhibitors also indicated but is currently being deferred as his kidneys recover. 3. Valvular heart disease: Patient does have significant tricuspid regurgitation and an element of mitral regurgitation. 4. Pulmonary hypertension: This may be related to an element of LV dysfunction or possibly primary pulmonary disease. No evidence of pulmonary vascular congestion on exam or x-ray. At this point we will see if medical therapy for his LV dysfunction improves his pulmonary pressures. 5. Hypotension: Improved. Patient is currently off pressor support. Most likely etiology was distributive shock due to sepsis. Beta-callie has been started an increased today. 6. Anemia: Patient did undergo transfusion of 3 units of blood. I think the etiology of his anemia is unclear. It may be multifactorial. He does not have gross bleeding from his gastrointestinal system. No endoscopy as currently planned. If his hemoglobin remains stable and has no evidence of gross bleeding , use of dual anti-platelet therapy or anticoagulants during any cardiac procedure could be considered safer. 7. Tachycardia: The patient has both sinus tachycardia and brief periods of what are likely an atrial arrhythmia, possibly and that ectopic atrial tachycardia. No symptoms. Overall heart rates gradually increased until he received blood and fluid. They have been slowly rising again over the course of the past 24 hours. This would suggest an element of overall volume depletion. The heart rate is related primarily to a mild sinus tachycardia with brief episodes of an atrial tachycardia. Some of this may be attenuated with use of beta blockade.
[2017-03-03] MEDS ORDERED: INSULIN GLARGINE SOLOSTAR 100 UNITS/ML 3 ML PEN SC ONE (12:45)
[2017-03-03] MEDS: CEFTRIAXONE SOD INJ 2,000 MG in DEXTROSE 5% 50ML 50 ML IV SCH (13:22)
--- NOTE | 2017-03-03 13:33 | Pharmacy Progress Note ---
Glycemic Control Progress Note Date of Service Mar 03, 2017. Scope Glycemic Pharmacist consulted for glycemic control to write orders per [facility] inpatient glycemic control protocol. Objective Accuchecks BSG (last 24hrs): Test 03/02/17 16:15 03/02/17 19:35 03/03/17 04:42 03/03/17 06:17 Bedside Glucose 243 mg/dl (70-99) 225 mg/dl (70-99) 174 mg/dl (70-99) Random Glucose 179 mg/dl (70-99) HbA1c: Test 03/03/17 04:42 Hemoglobin A1c 8.6 % (4.5-5.6) H However this result was after he had received PRBC x-fusion Recent Pertinent Medications Outpatient Anti-diabetic Regimen: * history of non-compliance * Lantus 30 units Q HS * Metformin 1000mg PO BID The patient is currently receiving: * Basal insulin: Lantus 40 units every 24 hours - dosed in the evening * Correctional Insulin: Novolog Correction per scale ACHS Goal Range: Low 140 mg/dL - High 180 mg/dL Correction Factor: 30 mg/dL/unit * Prandial insulin: Per carb ratio of 1 unit per 10 grams CHO consumed * Oral Agents: None currently Risk Factors for Insulin Resistance: * Infection: ID has changed ABX therapy to Rocephin * Diet: ordered T2DM diet Outpatient Anti-Diabetic Meds Glyburide-Metformin 2.5/500mg PO BID Assessment & Plan ASSESSMENT: 03/02/17 * Type 2 diabetic with h/o poor control admitted for sepsis - likely related to obstructive uropathy / prostatitis as well as NSTEMI * BSGs have ranged 45-292 over the last 24 hours * He has received 61 units of SQ insulin while tolerating very little PO * Patient developed severe hypoglycemia last evening, BSG 45, likely secondary to excess basal insulin in the setting of poor PO intake. He did have a total of 50 units of basal insulin yesterday (0.67units/kg/day of basal insulin alone) * Will decrease the basal insulin dose to ~50% of yesterday's total daily insulin requirement. Will base insulin doses on a total daily insulin dose of ~ 60 units/kg/day (or 0.8 units/kg/day) - a severe stress wt-based insulin dose * The current CF and CR are reasonable starting points. Will follow post- prandial BSGs today and adjust if necessary 03/03/17 * BSGs have ranged 71-243 over the last 24 hrs * Fasting BSG 174 this AM w/ 30 units of basal insulin on board - will increase dose again however will not increase back to 50 units daily given recent h/o hypoglycemia on this dose * Post-prandial BSGs were elevated on 2 of 3 checks yesterday, will adjust the CR and CF to allow for larger meal-time doses * Will add BSG check overnight to allow for additional coverage should the increase in Lantus dose not be adequate PLAN FOR INPATIENT GLYCEMIC CONTROL: * Continue to hold metformin * Increasing Lantus to 40 units SQ daily w/ dinner (will give 10 units Lantus STAT and then 30 units w/ dinner today; begin 40 units w/ dinner tomorrow) * Changing correction factor to 25 mg/dl/unit * Changing carb ratio to 1 unit per 9 grams CHO consumed * Changing goal range to Low 130 mg/dL - High 160 mg/dL * Add BSG at 0200 and cover with above Novolog parameters * Please note that the plan above was derived based on current level of insulin resistance and hospital stress. These recommendations are appropriate for inpatient admission only. Plan of care upon discharge will need to be reassessed to avoid potential outpatient hypo/hyperglycemia. Thank you.
--- NOTE | 2017-03-03 14:41 | Progress Note ---
Subjective Date of Service: Mar 03, 2017. Subjective Pt evaluation today including: conversation w/ patient, physical exam, chart review, lab review pt seen in followup, doing well today, await transfer to floor. afebrile. wbc better today but remains elevated. c diff negative x 2, po vanco stopped, still with diarrhea, no abd pain. Tolerating ctx, repeat cultures pending. right elbow still with pain, edema and erythema. s/p ortho eval. All remaining ros reviewed and are negative. Problem List Medical Problems: (1) DKA (diabetic ketoacidoses) Status: Acute (2) Urinary tract infection Status: Acute Objective Vital Signs Date Time Temp Pulse Resp B/P (MAP) Pulse Ox O2 Delivery O2 Flow Rate FiO2 03/03/17 14:01 122 17 130/81 (97) 96 Room Air 03/03/17 13:01 121 16 147/89 (108) 97 Room Air 03/03/17 12:01 36.5 110 27 140/78 (98) 95 Room Air 03/03/17 12:00 Room Air 03/03/17 11:19 104 24 119/63 (81) 95 Room Air 03/03/17 10:01 125 21 134/77 (96) 97 Room Air 03/03/17 09:01 104 26 128/72 (90) 96 Room Air 03/03/17 08:01 37.0 122 24 142/85 (104) 97 Room Air 03/03/17 08:00 Room Air 03/03/17 06:01 106 24 138/72 (94) 95 03/03/17 05:01 37.4 99 21 125/67 (86) 96 03/03/17 04:01 98 19 132/74 (93) 95 03/03/17 04:00 97 Room Air 03/03/17 03:01 98 27 124/72 (89) 96 03/03/17 02:01 97 25 125/71 (89) 96 03/03/17 01:01 102 22 116/73 (87) 97 03/03/17 00:01 37.2 104 29 134/69 (90) 96 Room Air 03/03/17 00:01 104 29 134/69 (90) 96 03/03/17 00:00 102 25 97 03/02/17 23:59 97 Room Air 03/02/17 22:00 95 22 120/70 (87) 97 03/02/17 20:00 Room Air 03/02/17 20:00 36.5 113 21 123/66 (85) 95 03/02/17 18:00 98 26 130/71 (90) 96 Room Air 03/02/17 16:00 36.6 105 21 129/71 (90) 94 03/02/17 16:00 Room Air 03/02/17 14:45 108 24 129/71 95 Physical Exam General Appearance: WD/WN, no apparent distress Eyes: normal inspection, PERRL Neck: supple Respiratory/Chest: lungs clear, normal breath sounds, no respiratory distress Cardiovascular: regular rate, rhythm, no edema Abdomen: soft Extremities: non-tender, no pedal edema Neurologic/Psychiatric: no motor/sensory deficits, alert, oriented x 3 Skin: normal color Comments: right elbow with erythema, warmth, edema and tenderness to palpation Laboratory Results Item Value Date Time Urine Culture - Final Complete 02/27/17 0000 Urine,Catheterized Staphylococcus Aureus Blood Culture - Preliminary Resulted 02/27/17 1522 Blood Staphylococcus Aureus Blood Culture - Preliminary Resulted 02/27/17 1520 Blood NO GROWTH TO DATE. C.difficile Toxin B Gene (PCR) - Final Complete 02/27/17 1830 Stool No C. difficile toxin B gene detected C.difficile Toxin B Gene (PCR) - Final Complete 03/02/17 1230 Stool No C. difficile toxin B gene detected Last 24 Hours Test 03/02/17 16:15 03/02/17 17:07 03/02/17 19:30 03/02/17 19:35 Bedside Glucose 243 mg/dl 225 mg/dl Hemoglobin 9.7 g/dL Hematocrit 28.6 % Test 03/02/17 21:20 03/03/17 04:42 03/03/17 06:17 03/03/17 11:28 Hemoglobin 9.6 g/dL 9.8 g/dL Hematocrit 28.9 % 29.3 % Vitamin B12 Level 1651 pg/mL Folate 5.17 ng/mL White Blood Count 27.98 K/uL Red Blood Count 3.25 M/uL Mean Corpuscular Volume 90.2 fL Mean Corpuscular Hemoglobin 30.2 pg Mean Corpuscular Hemoglobin Concent 33.4 g/dl Platelet Count 573 K/uL Mean Platelet Volume 9.2 fL Neutrophils (%) (Auto) 86.4 % Lymphocytes (%) (Auto) 8.0 % Monocytes (%) (Auto) 3.4 % Eosinophils (%) (Auto) 1.1 % Basophils (%) (Auto) 0.0 % Neutrophils # (Auto) 24.19 K/uL Lymphocytes # (Auto) 2.23 K/uL Monocytes # (Auto) 0.94 K/uL Eosinophils # (Auto) 0.31 K/uL Basophils # (Auto) 0.01 K/uL RDW Standard Deviation 50.4 fL RDW Coefficient of Variation 15.2 % Immature Granulocyte % (Auto) 1.1 % Immature Granulocyte # (Auto) 0.30 K/uL Red Blood Cell Morphology Unremarkable Prothrombin Time 13.2 SECONDS Prothromb Time International Ratio 1.2 Venous Blood pH 7.40 Sodium Level 140 mmol/L Potassium Level 3.8 mmol/L Chloride Level 112 mmol/L Carbon Dioxide Level 23 mmol/L Anion Gap 5.0 mmol/L Blood Urea Nitrogen 34 mg/dl Creatinine 1.40 mg/dl Est Creatinine Clear Calc Drug Dose 52.3 ml/min Estimated GFR () 59.0 Estimated GFR (Non- 50.9 BUN/Creatinine Ratio 24.5 Random Glucose 179 mg/dl Estimated Average Glucose 200 mg/dl Hemoglobin A1c 8.6 % Calcium Level 8.1 mg/dl Phosphorus Level 2.1 mg/dl Magnesium Level 1.6 mg/dl Total Bilirubin 0.4 mg/dl Direct Bilirubin 0.2 mg/dl Aspartate Amino Transf (AST/SGOT) 19 U/L Alanine Aminotransferase (ALT/SGPT) 24 U/L Alkaline Phosphatase 287 U/L Total Protein 6.5 gm/dl Albumin 1.9 gm/dl Globulin 4.6 gm/dl Albumin/Globulin Ratio 0.4 Bedside Glucose 174 mg/dl 225 mg/dl Assessment and Plan (1) MSSA (methicillin susceptible Staphylococcus aureus) septicemia Assessment & Plan: ? source gu vs elbow. concerned for septic arthritis right elbow. ortho following. would suggest ct vs mri to r/o collection vs I&D. continue ctx for now, follow repeat blood cultures, pending. echo negative for veg (2) Leukocytosis
--- NOTE | 2017-03-03 15:01 | Progress Note ---
Subjective Date of Service: Mar 03, 2017. Subjective Pt evaluation today including: conversation w/ patient, chart review, lab review Voiding: hallman catheter in place (patent, draining clear, yellow urine) 67 yo male with BPH with urinary retention, UTI, and suspected prostatitis. Pt c/o persistent low back pain this afternoon. Hallman draining clear, yellow urine. Denies n/v. Renal u/s repeated this morning showing some persistent hydro; mild right and moderate left. CT and previous imaging reviewed with Dr. Garcia yesterday. Calcification noted not felt to be consistent with a stone. Cr continues to improve at 1.4. White count improving as well. Problem List Medical Problems: (1) DKA (diabetic ketoacidoses) Status: Acute (2) Urinary tract infection Status: Acute Review of Systems Constitutional: No fever, No chills Respiratory: No shortness of breath Cardiac: No chest pain Abdomen: No pain, No nausea, No vomiting Musculoskeletal: + problem reported (low back pain ) Male : No dysuria, No hematuria Heme: No abnormal bleeding/bruising Objective Vital Signs Date Time Temp Pulse Resp B/P (MAP) Pulse Ox O2 Delivery O2 Flow Rate FiO2 03/03/17 14:01 122 17 130/81 (97) 96 Room Air 03/03/17 13:01 121 16 147/89 (108) 97 Room Air 03/03/17 12:01 36.5 110 27 140/78 (98) 95 Room Air 03/03/17 12:00 Room Air 03/03/17 11:19 104 24 119/63 (81) 95 Room Air 03/03/17 10:01 125 21 134/77 (96) 97 Room Air 03/03/17 09:01 104 26 128/72 (90) 96 Room Air 03/03/17 08:01 37.0 122 24 142/85 (104) 97 Room Air 03/03/17 08:00 Room Air 03/03/17 06:01 106 24 138/72 (94) 95 03/03/17 05:01 37.4 99 21 125/67 (86) 96 03/03/17 04:01 98 19 132/74 (93) 95 03/03/17 04:00 97 Room Air 03/03/17 03:01 98 27 124/72 (89) 96 03/03/17 02:01 97 25 125/71 (89) 96 03/03/17 01:01 102 22 116/73 (87) 97 03/03/17 00:01 37.2 104 29 134/69 (90) 96 Room Air 03/03/17 00:01 104 29 134/69 (90) 96 03/03/17 00:00 102 25 97 03/02/17 23:59 97 Room Air 03/02/17 22:00 95 22 120/70 (87) 97 03/02/17 20:00 Room Air 03/02/17 20:00 36.5 113 21 123/66 (85) 95 03/02/17 18:00 98 26 130/71 (90) 96 Room Air 03/02/17 16:00 36.6 105 21 129/71 (90) 94 03/02/17 16:00 Room Air 03/02/17 14:45 108 24 129/71 95 Physical Exam General Appearance: no apparent distress Eyes: normal inspection ENT: hearing grossly normal Neck: no JVD Respiratory/Chest: no respiratory distress, no accessory muscle use Cardiovascular: no JVD Extremities: normal inspection Neurologic/Psychiatric: alert, normal mood/affect, oriented x 3 Skin: normal color Laboratory Results Last 24 Hours Test 03/02/17 16:15 03/02/17 17:07 03/02/17 19:30 03/02/17 19:35 Bedside Glucose 243 mg/dl 225 mg/dl Hemoglobin 9.7 g/dL Hematocrit 28.6 % Test 03/02/17 21:20 03/03/17 04:42 03/03/17 06:17 03/03/17 11:28 Hemoglobin 9.6 g/dL 9.8 g/dL Hematocrit 28.9 % 29.3 % Vitamin B12 Level 1651 pg/mL Folate 5.17 ng/mL White Blood Count 27.98 K/uL Red Blood Count 3.25 M/uL Mean Corpuscular Volume 90.2 fL Mean Corpuscular Hemoglobin 30.2 pg Mean Corpuscular Hemoglobin Concent 33.4 g/dl Platelet Count 573 K/uL Mean Platelet Volume 9.2 fL Neutrophils (%) (Auto) 86.4 % Lymphocytes (%) (Auto) 8.0 % Monocytes (%) (Auto) 3.4 % Eosinophils (%) (Auto) 1.1 % Basophils (%) (Auto) 0.0 % Neutrophils # (Auto) 24.19 K/uL Lymphocytes # (Auto) 2.23 K/uL Monocytes # (Auto) 0.94 K/uL Eosinophils # (Auto) 0.31 K/uL Basophils # (Auto) 0.01 K/uL RDW Standard Deviation 50.4 fL RDW Coefficient of Variation 15.2 % Immature Granulocyte % (Auto) 1.1 % Immature Granulocyte # (Auto) 0.30 K/uL Red Blood Cell Morphology Unremarkable Prothrombin Time 13.2 SECONDS Prothromb Time International Ratio 1.2 Venous Blood pH 7.40 Sodium Level 140 mmol/L Potassium Level 3.8 mmol/L Chloride Level 112 mmol/L Carbon Dioxide Level 23 mmol/L Anion Gap 5.0 mmol/L Blood Urea Nitrogen 34 mg/dl Creatinine 1.40 mg/dl Est Creatinine Clear Calc Drug Dose 52.3 ml/min Estimated GFR () 59.0 Estimated GFR (Non- 50.9 BUN/Creatinine Ratio 24.5 Random Glucose 179 mg/dl Estimated Average Glucose 200 mg/dl Hemoglobin A1c 8.6 % Calcium Level 8.1 mg/dl Phosphorus Level 2.1 mg/dl Magnesium Level 1.6 mg/dl Total Bilirubin 0.4 mg/dl Direct Bilirubin 0.2 mg/dl Aspartate Amino Transf (AST/SGOT) 19 U/L Alanine Aminotransferase (ALT/SGPT) 24 U/L Alkaline Phosphatase 287 U/L Total Protein 6.5 gm/dl Albumin 1.9 gm/dl Globulin 4.6 gm/dl Albumin/Globulin Ratio 0.4 Bedside Glucose 174 mg/dl 225 mg/dl Assessment and Plan A/P: Sepsis secondary to UR from AVERY. Reviewed CT with Dr Garcia yesterday. Compared with previous KUB from December. Calcification in the pelvis appears consistent. Doubtful for left ureteral stone at this time, especially considering he remains afebrile. Continue IV abx for sepsis per ID. Would transition him to 4 weeks of Bactrim prior to d/c home to tx for probable prostatitis. Hallman catheter should remain in place for 2 weeks in the setting of UTI and likely prostatitis. Will repeat a renal u/s prior to TOV at that time. Continue tamsulosin. Will arrange for outpatient cysto for further evaluation of BPH and UR once his infection has been adequately tx. The pt is likely to benefit from a TURP in the future. Will continue to follow along with primary service.
--- NOTE | 2017-03-03 15:27 | Gastroenterology Progress Note ---
Progress Note Date of Service: Mar 03, 2017 Subjective Pt evaluation today including: conversation w/ patient, physical exam, chart review, lab review, review of studies, review of inpatient medication list CC f/u anemia, diarrhea, heme positive stool HPI Pt still with diarrhea but thinks it may be improved. Denies abd pain. Denies nausea but has poor appetite. Review of Systems Respiratory: No shortness of breath Cardiac: No chest pain Medications Current Inpatient Medications Medications (Trade) Dose Ordered Sig/Nilda Route Start Time Stop Time Status Last Admin Dose Admin Acetaminophen (Tylenol Tab) 650 mg Q4H PRN PO 02/27/17 15:30 03/29/17 15:29 03/02/17 13:37 650 MG Al Hydrox/Mg Hydrox/Simethicone (Maalox Max Susp) 15 ml Q4H PRN PO 02/27/17 15:30 03/29/17 15:29 Magnesium Hydroxide (Milk Of Magnesia Susp) 30 ml Q12H PRN PO 02/27/17 15:30 03/29/17 15:29 Ondansetron HCl (Zofran Inj) 4 mg Q6H PRN IV 02/27/17 15:30 03/29/17 15:29 Polyethylene (Miralax Powder Packet) 17 gm DAILY PRN PO 02/27/17 15:30 03/29/17 15:29 Aspirin (Ecotrin Tab) 81 mg DAILY PO 02/28/17 09:00 03/30/17 08:59 Future hold 03/03/17 09:15 81 MG Cholecalciferol (Vitamin D Tab) 1,000 inter.unit DAILY PO 02/28/17 09:00 03/30/17 08:59 03/03/17 09:04 1,000 INTER.UNIT Cyanocobalamin (Vitamin B-12 Tab) 1,000 mcg DAILY PO 02/28/17 09:00 03/30/17 08:59 03/03/17 09:05 1,000 MCG Tamsulosin HCl (Flomax Cap) 0.4 mg DAILY PO 02/28/17 09:00 03/30/17 08:59 Future Hold 03/03/17 09:04 0.4 MG Glucose (Glucose 40% Gel) 15-30 GRAMS 15 GRAMS... UD PRN PO 02/27/17 17:30 03/29/17 17:29 Glucose (Glucose Chew Tab) 4-8 Tablets 4 Tabl... UD PRN PO 02/27/17 17:30 03/29/17 17:29 Dextrose (Dextrose 50% 50ML Syringe) 25-50ML OF 50% DW IV FOR... UD PRN IV 02/27/17 17:30 03/29/17 17:29 03/02/17 00:01 50 ML Glucagon (Glucagon Inj) 1 mg UD PRN SQ 02/27/17 17:30 03/29/17 17:29 Insulin Aspart (novoLOG ASPART) SLIDING SCALE If CARB RA... ACHS SC 03/01/17 16:00 03/31/17 15:59 03/03/17 11:44 8 UNITS Heparin Sodium (Porcine) (Heparin 10 Unit/ ml 5 ml Flush) 5 ml PRN PRN FLUSH 03/01/17 23:30 03/31/17 23:29 Enteral Nutritional Formula (Boost Glucose Control) 1 can TIDM PO 03/02/17 07:15 04/01/17 07:14 03/03/17 08:44 1 CAN Heparin Sodium (Porcine) (Heparin Sq 5000 Unit/0.5ml) 5,000 unit Q12H SQ 03/03/17 09:00 04/02/17 08:59 03/03/17 09:13 5,000 UNIT Ceftriaxone Sodium 2000 mg/ Dextrose 70 ml @ 100 mls/hr Q24H IV 03/02/17 14:00 03/16/17 13:59 03/03/17 13:22 100 MLS/HR Miscellaneous Information (Consult Glycemic Management Pharmacy) 1 ea UD PRN N/A 03/02/17 13:15 04/01/17 13:14 Insulin Glargine (Lantus Solostar Pen) 30 units DAILY@1700 SC 03/02/17 17:00 03/03/17 23:59 03/02/17 17:03 30 UNITS Lactobacillus Acidophilus (Floranex Tab) 4 tab TIDM PO 03/03/17 07:15 04/02/17 07:14 03/03/17 11:38 4 TAB Multivitamins (Multivitamin Tab) 1 tab QAM PO 03/03/17 09:00 04/02/17 08:59 03/03/17 08:45 1 TAB Thiamine HCl (Vitamin B-1 Tab) 100 mg QAM PO 03/03/17 09:00 04/02/17 08:59 03/03/17 08:45 100 MG Ipratropium Jackson (Atrovent 0.02% 0.5MG/2.5ML Neb) 0.5 mg Q6H PRN INH 03/03/17 09:15 04/02/17 09:14 Levalbuterol (Xopenex 0.63 Mg/ 3 Ml Neb) 0.63 mg Q6H PRN INH 03/03/17 09:15 04/02/17 09:14 Pantoprazole Sodium 40 mg/ Syringe 10 ml @ 5 mls/min DAILY@11 IV 03/03/17 16:00 04/02/17 15:59 Psyllium Hydrophilic Mucilloid (Metamucil Powder) 1 pkt DAILY@1100 PO 03/03/17 11:00 04/02/17 10:59 03/03/17 11:38 1 PKT Metoprolol Tartrate (Lopressor Tab) 25 mg BID PO 03/03/17 21:00 04/02/17 20:59 Folic Acid (Folvite Tab) 1 mg QAM PO 03/04/17 09:00 04/03/17 08:59 Insulin Aspart (novoLOG ASPART) SLIDING SCALE If CARB RA... TODAY@0200 ONCE SC 03/04/17 02:00 03/04/17 02:01 Insulin Glargine (Lantus Solostar Pen) 40 units DAILY@1700 SC 03/03/17 17:00 04/02/17 16:59 Future hold Objective Vital Signs Date Time Temp Pulse Resp B/P (MAP) Pulse Ox O2 Delivery O2 Flow Rate FiO2 03/03/17 14:01 122 17 130/81 (97) 96 Room Air 03/03/17 13:01 121 16 147/89 (108) 97 Room Air 03/03/17 12:01 36.5 110 27 140/78 (98) 95 Room Air 03/03/17 12:00 Room Air 03/03/17 11:19 104 24 119/63 (81) 95 Room Air 03/03/17 10:01 125 21 134/77 (96) 97 Room Air 03/03/17 09:01 104 26 128/72 (90) 96 Room Air 03/03/17 08:01 37.0 122 24 142/85 (104) 97 Room Air 03/03/17 08:00 Room Air 03/03/17 06:01 106 24 138/72 (94) 95 03/03/17 05:01 37.4 99 21 125/67 (86) 96 03/03/17 04:01 98 19 132/74 (93) 95 03/03/17 04:00 97 Room Air 03/03/17 03:01 98 27 124/72 (89) 96 03/03/17 02:01 97 25 125/71 (89) 96 03/03/17 01:01 102 22 116/73 (87) 97 03/03/17 00:01 37.2 104 29 134/69 (90) 96 Room Air 03/03/17 00:01 104 29 134/69 (90) 96 03/03/17 00:00 102 25 97 03/02/17 23:59 97 Room Air 03/02/17 22:00 95 22 120/70 (87) 97 03/02/17 20:00 Room Air 03/02/17 20:00 36.5 113 21 123/66 (85) 95 03/02/17 18:00 98 26 130/71 (90) 96 Room Air 03/02/17 16:00 36.6 105 21 129/71 (90) 94 03/02/17 16:00 Room Air Physical Exam General Appearance: WD/WN, no apparent distress Respiratory/Chest: lungs clear, no respiratory distress Cardiovascular: no murmur Abdomen: normal bowel sounds, non tender, soft, no organomegaly, no pulsatile mass Laboratory Results Last 24 Hours Test 03/02/17 16:15 03/02/17 17:07 03/02/17 19:30 03/02/17 19:35 Bedside Glucose 243 mg/dl 225 mg/dl Hemoglobin 9.7 g/dL Hematocrit 28.6 % Test 03/02/17 21:20 03/03/17 04:42 03/03/17 06:17 03/03/17 11:28 Hemoglobin 9.6 g/dL 9.8 g/dL Hematocrit 28.9 % 29.3 % Vitamin B12 Level 1651 pg/mL Folate 5.17 ng/mL White Blood Count 27.98 K/uL Red Blood Count 3.25 M/uL Mean Corpuscular Volume 90.2 fL Mean Corpuscular Hemoglobin 30.2 pg Mean Corpuscular Hemoglobin Concent 33.4 g/dl Platelet Count 573 K/uL Mean Platelet Volume 9.2 fL Neutrophils (%) (Auto) 86.4 % Lymphocytes (%) (Auto) 8.0 % Monocytes (%) (Auto) 3.4 % Eosinophils (%) (Auto) 1.1 % Basophils (%) (Auto) 0.0 % Neutrophils # (Auto) 24.19 K/uL Lymphocytes # (Auto) 2.23 K/uL Monocytes # (Auto) 0.94 K/uL Eosinophils # (Auto) 0.31 K/uL Basophils # (Auto) 0.01 K/uL RDW Standard Deviation 50.4 fL RDW Coefficient of Variation 15.2 % Immature Granulocyte % (Auto) 1.1 % Immature Granulocyte # (Auto) 0.30 K/uL Red Blood Cell Morphology Unremarkable Prothrombin Time 13.2 SECONDS Prothromb Time International Ratio 1.2 Venous Blood pH 7.40 Sodium Level 140 mmol/L Potassium Level 3.8 mmol/L Chloride Level 112 mmol/L Carbon Dioxide Level 23 mmol/L Anion Gap 5.0 mmol/L Blood Urea Nitrogen 34 mg/dl Creatinine 1.40 mg/dl Est Creatinine Clear Calc Drug Dose 52.3 ml/min Estimated GFR () 59.0 Estimated GFR (Non- 50.9 BUN/Creatinine Ratio 24.5 Random Glucose 179 mg/dl Estimated Average Glucose 200 mg/dl Hemoglobin A1c 8.6 % Calcium Level 8.1 mg/dl Phosphorus Level 2.1 mg/dl Magnesium Level 1.6 mg/dl Total Bilirubin 0.4 mg/dl Direct Bilirubin 0.2 mg/dl Aspartate Amino Transf (AST/SGOT) 19 U/L Alanine Aminotransferase (ALT/SGPT) 24 U/L Alkaline Phosphatase 287 U/L Total Protein 6.5 gm/dl Albumin 1.9 gm/dl Globulin 4.6 gm/dl Albumin/Globulin Ratio 0.4 Bedside Glucose 174 mg/dl 225 mg/dl Assessment and Plan Heme positive stool--continue PPI in case this is peptic...not good candidate for EGD or colonoscopy given DC so would avoid for now unless has brisk bleeding diarrhea--Cdiff neg times 2, cx pending, Giardia, O/P, WBC pending, pancreas atrophy on CT so could be pancreas insufficiency as well Anemia--follow H and H, B12 high, folate low, ferritin elevated elevated ferritin repeat when acute illness resolved acute phase reactant and hemochromatosis in the differential Folate deficiency--supplement elevated alk phos--stable dilated intrahepatic ducts on CT A/P---consider MRCP when stable especially in light of elevated LFTS and gallstones other problems per hospitalist: DC, bacteremia, hydronephosis Dr Mercedes assuming GI care today at 1700.
[2017-03-03] MEDS: PANTOprazole INJ 40 MG in SYRINGE 0 ML IV SCH (16:11)
[2017-03-03] MEDS ORDERED: INSULIN GLARGINE SOLOSTAR 100 UNITS/ML 3 ML PEN SC SCH (17:00)
--- NOTE | 2017-03-03 17:07 | Orthopedic Progress Note ---
Orthopedic Progress Note Date of Service Mar 03, 2017. Subjective Reports: feeling well Additional Notes: States that his RUE is feeling better today. Less pain. He states he has slight tingling in the fingers off and on. He feels the swelling is down today. Objective Right triceps hematoma present. Tenderness on palpation. ROM of the elbow slightly better than yesterday. Moving fingers and wrist well. Date Time Temp Pulse Resp B/P (MAP) Pulse Ox O2 Delivery O2 Flow Rate FiO2 03/03/17 16:39 36.6 113 18 139/73 (95) 95 03/03/17 16:05 96 Room Air 03/03/17 14:01 122 17 130/81 (97) 96 Room Air 03/03/17 13:01 121 16 147/89 (108) 97 Room Air 03/03/17 12:01 36.5 110 27 140/78 (98) 95 Room Air 03/03/17 12:00 Room Air 03/03/17 11:19 104 24 119/63 (81) 95 Room Air 03/03/17 10:01 125 21 134/77 (96) 97 Room Air 03/03/17 09:01 104 26 128/72 (90) 96 Room Air 03/03/17 08:01 37.0 122 24 142/85 (104) 97 Room Air 03/03/17 08:00 Room Air 03/03/17 06:01 106 24 138/72 (94) 95 03/03/17 05:01 37.4 99 21 125/67 (86) 96 03/03/17 04:01 98 19 132/74 (93) 95 03/03/17 04:00 97 Room Air 03/03/17 03:01 98 27 124/72 (89) 96 03/03/17 02:01 97 25 125/71 (89) 96 03/03/17 01:01 102 22 116/73 (87) 97 03/03/17 00:01 37.2 104 29 134/69 (90) 96 Room Air 03/03/17 00:01 104 29 134/69 (90) 96 03/03/17 00:00 102 25 97 03/02/17 23:59 97 Room Air 03/02/17 22:00 95 22 120/70 (87) 97 03/02/17 20:00 Room Air 03/02/17 20:00 36.5 113 21 123/66 (85) 95 03/02/17 18:00 98 26 130/71 (90) 96 Room Air Laboratory Results 24 Hours: Test 03/02/17 17:07 03/02/17 21:20 03/03/17 04:42 Hematocrit 28.6 % 28.9 % 29.3 % Hemoglobin 9.7 g/dL 9.6 g/dL 9.8 g/dL White Blood Count 27.98 K/uL Red Blood Count 3.25 M/uL Mean Corpuscular Volume 90.2 fL Mean Corpuscular Hemoglobin 30.2 pg Mean Corpuscular Hemoglobin Concent 33.4 g/dl Platelet Count 573 K/uL Mean Platelet Volume 9.2 fL Neutrophils (%) (Auto) 86.4 % Lymphocytes (%) (Auto) 8.0 % Monocytes (%) (Auto) 3.4 % Eosinophils (%) (Auto) 1.1 % Basophils (%) (Auto) 0.0 % Neutrophils # (Auto) 24.19 K/uL Lymphocytes # (Auto) 2.23 K/uL Monocytes # (Auto) 0.94 K/uL Eosinophils # (Auto) 0.31 K/uL Basophils # (Auto) 0.01 K/uL Prothromb Time International Ratio 1.2 Prothrombin Time 13.2 SECONDS Assessment & Plan Assessment: Hematoma right Triceps/elbow. Continue present plan with ice to right elbow. Gentle ROM Sling for comfort. Ortho will sign off for now. Please call with any questions or if symptoms worsening.
--- NOTE | 2017-03-03 17:11 | Consultant Recommendations ---
Certified Welder Recommendations Date of Service Mar 03, 2017. Certified Welder Recommendations Sling for comfort with RUE when up. Ice early on. May switch to warm moist heating pad in several days. Increase range of motion of right elbow as tolerated. Continue flexion/ extension exercises of fingers/hand/wrist regularly Follow up in office in 1 week if not resolving or worsening of symptoms. [phone]
[2017-03-03] MEDS: INSULIN GLARGINE SOLOSTAR 100 UNITS/ML 3 ML PEN SC SCH (17:19)
[2017-03-03] MEDS: ACETAMINOPHEN 325 MG TAB PO PRN (17:27)
[2017-03-03] MEDS ORDERED: METOPROLOL TARTRATE 1 MG/ML VIAL ONE (17:35)
[2017-03-03] MEDS ORDERED: METOPROLOL TARTRATE 1 MG/ML VIAL IV PRN (17:45)
[2017-03-03] MEDS: METOPROLOL TARTRATE 25 MG TAB PO SCH (20:32)
[2017-03-04] MEDS: ACETAMINOPHEN 325 MG TAB PO PRN ×3 (01:09→19:32)
[2017-03-04] MEDS ORDERED: INSULIN ASPART 100 UNITS/ML 3 ML PEN SC ONE (02:00)
[2017-03-04 04:22] VITALS: BP 117/58; PULSE 97; TEMP 37.2; O2SAT 96
[2017-03-04 07:18] VITALS: BP 135/71; PULSE 99; TEMP 36.6; O2SAT 97
[2017-03-04] MEDS: BOOST GLUCOSE CONTROL PO SCH ×3 (08:02→17:00)
[2017-03-04] MEDS: LACTOBACILLUS ACIDOPHILUS (FLORANEX) TAB PO SCH ×3 (08:03→17:42)
[2017-03-04] MEDS: METOPROLOL TARTRATE 25 MG TAB PO SCH ×2 (08:03→20:46)
[2017-03-04] MEDS: CYANOCOBALAMIN 500 MCG TAB (VIT B-12) PO SCH (08:03)
[2017-03-04] MEDS: ASPIRIN 81 MG ECTAB PO SCH (08:03)
[2017-03-04] MEDS: CHOLECALCIFEROL 1000 INTER.UNIT TAB PO SCH (08:04)
[2017-03-04] MEDS: MULTIVITAMIN TAB PO SCH (08:04)
[2017-03-04] MEDS: THIAMINE HCL 100 MG TAB PO SCH (08:04)
[2017-03-04 08:06] LABS: ALB/GLOB RATIO 0.4 (0.9-2); BUN/CREATININE RATIO 17.7 (10-20); CALCIUM 8.2 mg/dl (8.5-10.1); CHOLESTEROL/HDL RATIO 4.2; CREATININE 1.1 mg/dl (0.60-1.40)
[2017-03-04] MEDS: INSULIN ASPART 100 UNITS/ML 3 ML PEN SC SCH ×4 (08:07→20:48)
[2017-03-04] MEDS: HEPARIN SOD 5000 UNIT/0.5 ML CARP SQ SCH ×2 (08:08→20:49)
[2017-03-04 08:45] LABS: HEMATOCRIT 32.1 % (42-52); MEAN CELL VOLUME 91.2 fL (80-100); MEAN CORPUSCULAR HEMOGLOBIN 30.4 pg (25-34); MEAN CORPUSCULAR HGB CONC 33.3 g/dl (32-36); MEAN PLATELET VOLUME 9.8 fL (7.4-10.4); PLATELET COUNT 605 K/uL (130-400); RED BLOOD COUNT 3.52 M/uL (4.7-6.1); WHITE BLOOD COUNT 31.64 K/uL (4.8-10.8)
[2017-03-04 08:50] LABS: DOHLE BODIES 1+; TOXIC GRANULATION 2+
--- NOTE | 2017-03-04 08:51 | Progress Note ---
Subjective Date of Service: Mar 04, 2017. Subjective Pt evaluation today including: conversation w/ patient, chart review, lab review Voiding: hallman catheter in place (patent, draining clear, yellow urine) 67 yo male with UR secondary to AVERY; UTI with sepsis. Pt continues to c/o some low back pain this morning. Denies n/v. White count has increased again to 31.64. Cr remains stable at 1.1. Problem List Medical Problems: (1) DKA (diabetic ketoacidoses) Status: Acute (2) Urinary tract infection Status: Acute Review of Systems Constitutional: No fever, No chills Respiratory: No shortness of breath Cardiac: No chest pain Abdomen: No pain, No nausea, No vomiting Male : No hematuria Heme: No abnormal bleeding/bruising Objective Vital Signs Date Time Temp Pulse Resp B/P (MAP) Pulse Ox O2 Delivery O2 Flow Rate FiO2 03/04/17 04:22 37.2 97 20 117/58 (77) 96 Room Air 03/04/17 04:00 Room Air 03/03/17 23:59 Room Air 03/03/17 23:59 36.7 84 18 119/56 (77) 98 Room Air 03/03/17 20:28 36.4 95 20 121/65 (83) 97 Room Air 03/03/17 20:00 Room Air 03/03/17 17:40 133 130/68 03/03/17 16:39 36.6 113 18 139/73 (95) 95 03/03/17 16:05 96 Room Air 03/03/17 14:01 122 17 130/81 (97) 96 Room Air 03/03/17 13:01 121 16 147/89 (108) 97 Room Air 03/03/17 12:01 36.5 110 27 140/78 (98) 95 Room Air 03/03/17 12:00 Room Air 03/03/17 11:19 104 24 119/63 (81) 95 Room Air 03/03/17 10:01 125 21 134/77 (96) 97 Room Air 03/03/17 09:01 104 26 128/72 (90) 96 Room Air Physical Exam General Appearance: no apparent distress Eyes: normal inspection ENT: hearing grossly normal Neck: no JVD Respiratory/Chest: no respiratory distress, no accessory muscle use Cardiovascular: no JVD Extremities: normal inspection Neurologic/Psychiatric: alert, normal mood/affect, oriented x 3 Skin: normal color Laboratory Results Last 24 Hours Test 03/03/17 11:28 03/03/17 16:19 03/03/17 17:15 03/03/17 20:30 Bedside Glucose 225 mg/dl 147 mg/dl 117 mg/dl Test 03/04/17 01:26 03/04/17 01:41 03/04/17 06:27 03/04/17 06:38 Bedside Glucose 56 mg/dl 70 mg/dl 168 mg/dl White Blood Count 31.64 K/uL Red Blood Count 3.52 M/uL Hemoglobin 10.7 g/dL Hematocrit 32.1 % Mean Corpuscular Volume 91.2 fL Mean Corpuscular Hemoglobin 30.4 pg Mean Corpuscular Hemoglobin Concent 33.3 g/dl Platelet Count 605 K/uL Mean Platelet Volume 9.8 fL RDW Standard Deviation 51.4 fL RDW Coefficient of Variation 15.3 % Sodium Level 140 mmol/L Potassium Level 4.0 mmol/L Chloride Level 108 mmol/L Carbon Dioxide Level 26 mmol/L Anion Gap 6.0 mmol/L Blood Urea Nitrogen 20 mg/dl Creatinine 1.10 mg/dl Est Creatinine Clear Calc Drug Dose 67.0 ml/min Estimated GFR () 79.0 Estimated GFR (Non- 68.1 BUN/Creatinine Ratio 17.7 Random Glucose 160 mg/dl Calcium Level 8.2 mg/dl Total Bilirubin 0.3 mg/dl Aspartate Amino Transf (AST/SGOT) 25 U/L Alanine Aminotransferase (ALT/SGPT) 21 U/L Alkaline Phosphatase 351 U/L Total Protein 6.5 gm/dl Albumin 1.7 gm/dl Globulin 4.8 gm/dl Albumin/Globulin Ratio 0.4 Triglycerides Level 106 mg/dl Cholesterol Level 67 mg/dl HDL Cholesterol 16 mg/dl LDL Cholesterol, Calculated 30 mg/dl VLDL Cholesterol, Calculated 21 mg/dl Cholesterol/HDL Ratio 4.2 Assessment and Plan A/P: Sepsis secondary to UR from AVERY. Renal u/s yesterday showing some persistent hydro.Rising white count again. Reviewed CT and u/s with Dr Allan this morning. . Compared with previous KUB from December. Calcification in the pelvis appears consistent. Doubtful for left ureteral stone at this time, especially considering he remains afebrile. Would place stent urgently if he were to decompensate or develop a fever. Continue IV abx for sepsis per ID. Would transition him to 4 weeks of Bactrim prior to d/c home to tx for prostatitis. Hallman catheter should remain in place for 2-4 weeks in the setting of UTI and likely prostatitis. Will repeat a renal u/s prior to TOV at that time. Continue tamsulosin. Will arrange for outpatient cysto for further evaluation of BPH and UR once his infection has been adequately tx. The pt is likely to benefit from a TURP in the future. Will continue to follow along with primary service.
[2017-03-04 10:35] LABS: COMPLETE YES; LYMPH ABS # 0.63 K/uL (1.2-3.4)
[2017-03-04 10:55] VITALS: BP 122/80; PULSE 93; TEMP 37.3; O2SAT 97
[2017-03-04] MEDS: PSYLLIUM 58.6% PWD PACK S\\F PO SCH (11:00)
[2017-03-04] MEDS: PANTOprazole INJ 40 MG in SYRINGE 0 ML IV SCH (11:17)
[2017-03-04 11:52] VITALS: BP 107/71
--- NOTE | 2017-03-04 13:05 | Cardiology Follow-Up ---
Subjective Date of Service: Mar 04, 2017. Pt evaluation today including: conversation w/ patient, physical exam, chart review, lab review, review of studies History of Present Illness The patient claims to be the doing about the same this morning. His elbows feeling better. Denies any symptoms of chest discomfort. He has no palpitations. He was up out of bed briefly yesterday. He did not describe symptoms of dizziness. Social History Smoking Status: Former Smoker History of Alcohol Use: Yes (OCC ) Review of Systems Respiratory: No shortness of breath Cardiac: No chest pain Objective Vital Signs Past 12 Hours Date Time Temp Pulse Resp B/P (MAP) Pulse Ox O2 Delivery O2 Flow Rate FiO2 03/04/17 11:52 107/71 (83) 03/04/17 11:37 Room Air 03/04/17 10:55 37.3 93 20 122/80 (94) 97 Room Air 03/04/17 08:00 Room Air 03/04/17 07:18 36.6 99 20 135/71 (92) 97 Room Air 03/04/17 04:22 37.2 97 20 117/58 (77) 96 Room Air 03/04/17 04:00 Room Air Last Recorded Weight-Kilograms: 74.700 Physical Exam The patient is alert and oriented. Mood and affect appeared normal. He answered all questions appropriately. HEENT: Pupils are equal and reactive to light and accommodation. Extraocular movements are intact. The sclerae are anicteric. Neuro: Cranial nerves intact Neck: Patient's neck is supple. He has palpable carotid pulses bilaterally without bruits on auscultation. There is no evidence of jugular venous distention. The thyroid is not enlarged. Lungs: Clear to auscultation bilaterally. He has good air movement without use of accessory muscles. No rales wheezes or rhonchi. Cardiac: Heart demonstrates a regular rate and rhythm. Normal S1 and S2. Holosystolic murmur. Pulses: The patient has palpable radial pulses bilaterally that are equal in intensity Extremities: There was no evidence of hypoperfusion. There is no cyanosis or clubbing. There is no edema. He has some mild erythema and swelling involving the right elbow. Skin: I did not appreciate any rashes on examination today. Data Laboratory Results: Last 24 Hours Test 03/03/17 16:19 03/03/17 17:15 03/03/17 20:30 03/04/17 01:26 Bedside Glucose 147 mg/dl 117 mg/dl 56 mg/dl Test 03/04/17 01:41 03/04/17 06:27 03/04/17 06:38 03/04/17 10:56 Bedside Glucose 70 mg/dl 168 mg/dl 241 mg/dl White Blood Count 31.64 K/uL Red Blood Count 3.52 M/uL Hemoglobin 10.7 g/dL Hematocrit 32.1 % Mean Corpuscular Volume 91.2 fL Mean Corpuscular Hemoglobin 30.4 pg Mean Corpuscular Hemoglobin Concent 33.3 g/dl Platelet Count 605 K/uL Mean Platelet Volume 9.8 fL RDW Standard Deviation 51.4 fL RDW Coefficient of Variation 15.3 % Neutrophils % (Manual) 88.0 % Lymphocytes % (Manual) 2.0 % Monocytes % (Manual) 10.0 % Neutrophils # (Manual) 27.84 K/uL Total Absolute Neutrophils 27.84 K/uL Lymphocytes # (Manual) 0.63 K/uL Total Absolute Lymphocytes 0.63 K/uL Monocytes # (Manual) 3.16 K/uL Toxic Granulation 2+ Dohle Bodies 1+ Sodium Level 140 mmol/L Potassium Level 4.0 mmol/L Chloride Level 108 mmol/L Carbon Dioxide Level 26 mmol/L Anion Gap 6.0 mmol/L Blood Urea Nitrogen 20 mg/dl Creatinine 1.10 mg/dl Est Creatinine Clear Calc Drug Dose 67.0 ml/min Estimated GFR () 79.0 Estimated GFR (Non- 68.1 BUN/Creatinine Ratio 17.7 Random Glucose 160 mg/dl Calcium Level 8.2 mg/dl Total Bilirubin 0.3 mg/dl Aspartate Amino Transf (AST/SGOT) 25 U/L Alanine Aminotransferase (ALT/SGPT) 21 U/L Alkaline Phosphatase 351 U/L Total Protein 6.5 gm/dl Albumin 1.7 gm/dl Globulin 4.8 gm/dl Albumin/Globulin Ratio 0.4 Triglycerides Level 106 mg/dl Cholesterol Level 67 mg/dl HDL Cholesterol 16 mg/dl LDL Cholesterol, Calculated 30 mg/dl VLDL Cholesterol, Calculated 21 mg/dl Cholesterol/HDL Ratio 4.2 Imaging: EKG: Telemetry reviewed: Assessment and Plan 1. Non ST-elevation myocardial infarction. No symptoms of her current ischemia. We had an extensive discussion over several days regarding my recommendation for coronary angiography. The patient however is not agreeable at this time. Based on his resistance to any additional evaluation or opportunity for percutaneous intervention I think we will be restricted to medical therapy. He will be continued on his beta-callie and daily aspirin. Given his recent event as well as history of diabetes mellitus he is advised to start high-dose atorvastatin.. 2. LV systolic failure: He is noted to have reduced LV systolic function on his echocardiogram. No overt symptoms or signs of pulmonary congestion or decompensation. Beta-callie was started and increased recently. An Dennis inhibitors also indicated but is currently being deferred as his kidneys recover. If he is likely be here for several more days given the normal creatinine we could consider initiation of Dennis inhibitor therapy monitoring his lab results. He is likely be discharged in the next day or 2 I would defer initiation to the outpatient setting. 3. Tachycardia: The patient has both sinus tachycardia and brief periods of what are likely an atrial arrhythmia, possibly and that ectopic atrial tachycardia. No symptoms. Overall heart rates are slightly improved. I would continue his beta-callie. At this point I would continue the medical therapy as currently prescribed with the addition of atorvastatin 40 or 80 milligrams. If the patient is to be in the hospital for several more days starting low-dose DENNIS inhibitor would be a good idea. He is likely be discharged in the next day or 2 I would defer initiation to the outpatient setting.
--- NOTE | 2017-03-04 13:46 | DIAGNOSTIC IMAGING REPORT ---
CHEST ONE VIEW PORTABLE HISTORY: 67 years-old Male leukocytosis COMPARISON: Portable chest radiograph 02/27/2017 TECHNIQUE: Portable upright AP view of the chest FINDINGS: There has been interval removal of the previously seen left IJ catheter. Cardiac silhouette is upper limits of normal. There is no pneumothorax or large pleural effusion. Mildly vascular congestion is noted with hazy subsegmental medial bibasilar opacities which are new from comparison, right greater than left. The bones are grossly intact. There is atherosclerosis of the aorta. IMPRESSION: 1. Development of hazy right greater than left subsegmental medial lung base opacities suggesting atelectasis or pneumonia. 2. Interval removal of left IJ catheter. The above report was generated using voice recognition software. It may contain grammatical, syntax or spelling errors. Electronically signed by: Shmuel Garland M.D. 03/04/2017 1:44 PM Dictated Date/Time: 03/04/2017 1:42 PM
[2017-03-04] MEDS: CEFTRIAXONE SOD INJ 2,000 MG in DEXTROSE 5% 50ML 50 ML IV SCH (14:03)
--- NOTE | 2017-03-04 14:35 | Progress Note ---
Subjective Date of Service: Mar 04, 2017. Subjective Pt evaluation today including: conversation w/ patient, physical exam, chart review, lab review pt transferred out of ICU. states he is to have MRI right elbow later today. no f/c overnight. states he is feeling somewhat better, tolerating abx. still with elbow pain. wbc remains significantly elevated at 31,platelets also elevated. cultures negative to date. denies abd pain, no n/v/d.all remaining ros reviewed and are negative. Problem List Medical Problems: (1) DKA (diabetic ketoacidoses) Status: Acute (2) Urinary tract infection Status: Acute Objective Vital Signs Date Time Temp Pulse Resp B/P (MAP) Pulse Ox O2 Delivery O2 Flow Rate FiO2 03/04/17 11:52 107/71 (83) 03/04/17 11:37 Room Air 03/04/17 10:55 37.3 93 20 122/80 (94) 97 Room Air 03/04/17 08:00 Room Air 03/04/17 07:18 36.6 99 20 135/71 (92) 97 Room Air 03/04/17 04:22 37.2 97 20 117/58 (77) 96 Room Air 03/04/17 04:00 Room Air 03/03/17 23:59 Room Air 03/03/17 23:59 36.7 84 18 119/56 (77) 98 Room Air 03/03/17 20:28 36.4 95 20 121/65 (83) 97 Room Air 03/03/17 20:00 Room Air 03/03/17 17:40 133 130/68 03/03/17 16:39 36.6 113 18 139/73 (95) 95 03/03/17 16:05 96 Room Air Physical Exam General Appearance: WD/WN, no apparent distress, + mild distress Eyes: EOMI Neck: supple Respiratory/Chest: lungs clear, normal breath sounds, no respiratory distress, + decreased breath sounds Cardiovascular: regular rate, rhythm, no edema Abdomen: non tender, soft Extremities: non-tender, no pedal edema Neurologic/Psychiatric: alert, oriented x 3 Skin: normal color Comments: right elbow remains with significant erythema, edema, warmth, tenderness Laboratory Results Item Value Date Time WBC Smear - Final Resulted 03/02/17 1230 Stool C.difficile Toxin B Gene (PCR) - Final Complete 03/02/17 1230 Stool No C. difficile toxin B gene detected Blood Culture - Preliminary Resulted 03/02/17 1012 Blood NO GROWTH TO DATE. Blood Culture - Preliminary Resulted 03/02/17 1009 Blood NO GROWTH TO DATE. Blood Culture - Preliminary Resulted 02/27/17 1522 Blood Staphylococcus Aureus Last 24 Hours Test 03/03/17 16:19 03/03/17 17:15 03/03/17 20:30 03/04/17 01:26 Bedside Glucose 147 mg/dl 117 mg/dl 56 mg/dl Test 03/04/17 01:41 03/04/17 06:27 03/04/17 06:38 03/04/17 10:56 Bedside Glucose 70 mg/dl 168 mg/dl 241 mg/dl White Blood Count 31.64 K/uL Red Blood Count 3.52 M/uL Hemoglobin 10.7 g/dL Hematocrit 32.1 % Mean Corpuscular Volume 91.2 fL Mean Corpuscular Hemoglobin 30.4 pg Mean Corpuscular Hemoglobin Concent 33.3 g/dl Platelet Count 605 K/uL Mean Platelet Volume 9.8 fL RDW Standard Deviation 51.4 fL RDW Coefficient of Variation 15.3 % Neutrophils % (Manual) 88.0 % Lymphocytes % (Manual) 2.0 % Monocytes % (Manual) 10.0 % Neutrophils # (Manual) 27.84 K/uL Total Absolute Neutrophils 27.84 K/uL Lymphocytes # (Manual) 0.63 K/uL Total Absolute Lymphocytes 0.63 K/uL Monocytes # (Manual) 3.16 K/uL Toxic Granulation 2+ Dohle Bodies 1+ Sodium Level 140 mmol/L Potassium Level 4.0 mmol/L Chloride Level 108 mmol/L Carbon Dioxide Level 26 mmol/L Anion Gap 6.0 mmol/L Blood Urea Nitrogen 20 mg/dl Creatinine 1.10 mg/dl Est Creatinine Clear Calc Drug Dose 67.0 ml/min Estimated GFR () 79.0 Estimated GFR (Non- 68.1 BUN/Creatinine Ratio 17.7 Random Glucose 160 mg/dl Calcium Level 8.2 mg/dl Total Bilirubin 0.3 mg/dl Aspartate Amino Transf (AST/SGOT) 25 U/L Alanine Aminotransferase (ALT/SGPT) 21 U/L Alkaline Phosphatase 351 U/L Total Protein 6.5 gm/dl Albumin 1.7 gm/dl Globulin 4.8 gm/dl Albumin/Globulin Ratio 0.4 Triglycerides Level 106 mg/dl Cholesterol Level 67 mg/dl HDL Cholesterol 16 mg/dl LDL Cholesterol, Calculated 30 mg/dl VLDL Cholesterol, Calculated 21 mg/dl Cholesterol/HDL Ratio 4.2 Test 03/04/17 14:00 Assessment and Plan (1) MSSA (methicillin susceptible Staphylococcus aureus) septicemia Assessment & Plan: ? source gu vs elbow. concerned for septic arthritis right elbow. ortho following. would suggest ct vs mri to r/o collection vs I&D. continue ctx for now, follow repeat blood cultures, pending. echo negative for veg wbc remains elevated, for MRI today, follow results. continue abx and follow culture, negative to date. will require prolonged course IV abx. (2) Leukocytosis
[2017-03-04 14:40] LABS: URINE APPEARANCE CLOUDY (CLEAR); URINE BILIRUBIN NEG (NEG); URINE COLOR YELLOW; URINE EPITHELIAL CELL AUTO 0-5 /lpf (0-5); URINE NITRITE NEG (NEG); URINE SPECIFIC GRAVITY 1.022 (1.000-1.030); UROBILINOGEN NEG (NEG); ZZUR CULT IF INDIC CLEAN CATCH YES
[2017-03-04 14:46] LABS: MANUAL MICROSCOPIC REQUIRED? NO; REVIEW REQ? YES
--- NOTE | 2017-03-04 14:51 | Pharmacy Progress Note ---
Glycemic Control Progress Note Date of Service Mar 04, 2017. Scope Glycemic Pharmacist consulted for glycemic control to write orders per [facility] inpatient glycemic control protocol. Objective Accuchecks BSG (last 24hrs): Test 03/03/17 16:19 03/03/17 20:30 03/04/17 01:26 03/04/17 01:41 Bedside Glucose 147 mg/dl (70-99) 117 mg/dl (70-99) 56 mg/dl (70-99) 70 mg/dl (70-99) Test 03/04/17 06:27 03/04/17 06:38 03/04/17 10:56 Random Glucose 160 mg/dl (70-99) Bedside Glucose 168 mg/dl (70-99) 241 mg/dl (70-99) HbA1c: Test 03/03/17 04:42 Hemoglobin A1c 8.6 % (4.5-5.6) H Recent Pertinent Medications Outpatient Anti-diabetic Regimen: * history of non-compliance * Lantus 30 units Q HS * Metformin 1000mg PO BID The patient is currently receiving: * Basal insulin: Lantus 40 units every 24 hours - dosed in the evening * Correctional Insulin: Novolog Correction per scale ACHS Goal Range: Low 140 mg/dL - High 180 mg/dL Correction Factor: 25 mg/dL/unit * Prandial insulin: Per carb ratio of 1 unit per 9 grams CHO consumed * Oral Agents: None currently Risk Factors for Insulin Resistance: * Infection: receiving ceftriaxone IV therapy for MSSA bacteremia + MSSA UTI * Diet: ordered T2DM diet Assessment & Plan ASSESSMENT: 03/02/17 * Type 2 diabetic with h/o poor control admitted for sepsis - likely related to obstructive uropathy / prostatitis as well as NSTEMI * BSGs have ranged 45-292 over the last 24 hours * He has received 61 units of SQ insulin while tolerating very little PO * Patient developed severe hypoglycemia last evening, BSG 45, likely secondary to excess basal insulin in the setting of poor PO intake. He did have a total of 50 units of basal insulin yesterday (0.67units/kg/day of basal insulin alone) * Will decrease the basal insulin dose to ~50% of yesterday's total daily insulin requirement. Will base insulin doses on a total daily insulin dose of ~ 60 units/kg/day (or 0.8 units/kg/day) - a severe stress wt-based insulin dose * The current CF and CR are reasonable starting points. Will follow post- prandial BSGs today and adjust if necessary 03/03/17 * BSGs have ranged 71-243 over the last 24 hrs * Fasting BSG 174 this AM w/ 30 units of basal insulin on board - will increase dose again however will not increase back to 50 units daily given recent h/o hypoglycemia on this dose * Post-prandial BSGs were elevated on 2 of 3 checks yesterday, will adjust the CR and CF to allow for larger meal-time doses * Will add BSG check overnight to allow for additional coverage should the increase in Lantus dose not be adequate 03/04/17 * Patient again experienced an episode of hypoglycemia overnight, likely related to excess Lantus on board. This time his BSG dropped to 56 and he had 40 units of Lantus on board. He had previously dropped to 45 on a Lantus dose of 50 units/day. When he was given 30 units / day he remained hyperglycemic. Ideally this patient would likely benefit from twice daily Lantus as it appears the effects may be wearing off in less than 24 hrs as his BSGs trend upward with lunch and dinner then quickly fall. However give his h/o non-compliance, once daily dosing would be preferred. Will lower his Lantus dose again at this time and continue once daily administration - perhaps AM administration would be better? * Will continue the current CF and CR given the new change in Lantus. Will reeval tomorrow. PLAN FOR INPATIENT GLYCEMIC CONTROL: * Continue to hold metformin * Decrease Lantus to 35 units SQ daily w/ dinner * Continue correction factor of 25 mg/dl/unit * Continue carb ratio of 1 unit per 9 grams CHO consumed * Changing goal range to Low 110 mg/dL - High 140 mg/dL * Add BSG at 0200 and cover with above Novolog parameters (will also screen for nocturnal hypoglycemia) * Please note that the plan above was derived based on current level of insulin resistance and hospital stress. These recommendations are appropriate for inpatient admission only. Plan of care upon discharge will need to be reassessed to avoid potential outpatient hypo/hyperglycemia. Thank you.
[2017-03-04 15:06] LABS: URINE PATH CASTS 1-5 GRANULAR CASTS /lpf (0)
[2017-03-04] MEDS ORDERED: INSULIN GLARGINE SOLOSTAR 100 UNITS/ML 3 ML PEN SC SCH ×2 (17:00)
--- NOTE | 2017-03-04 18:25 | Family Medicine Progress Note ---
Progress Note Date of Service Mar 04, 2017. Subjective Pt evaluation today including: conversation w/ patient, physical exam, lab review Pain: R elbow pain PO Intake: tolerating Pt reports persistent R elbow pain and swelling and loose/watery stools. Denies sob, cp, n/d, abdominal pain Constitutional: No fever Respiratory: No shortness of breath Cardiovascular: No chest pain Abdomen: + diarrhea, No pain, No nausea, No vomiting Musculoskeletal: + joint pain (R elbow pain and swelling) Medications Current Inpatient Medications Medications (Trade) Dose Ordered Sig/Nilda Route Start Time Stop Time Status Last Admin Dose Admin Acetaminophen (Tylenol Tab) 650 mg Q4H PRN PO 02/27/17 15:30 03/29/17 15:29 03/04/17 10:26 650 MG Al Hydrox/Mg Hydrox/Simethicone (Maalox Max Susp) 15 ml Q4H PRN PO 02/27/17 15:30 03/29/17 15:29 Magnesium Hydroxide (Milk Of Magnesia Susp) 30 ml Q12H PRN PO 02/27/17 15:30 03/29/17 15:29 Ondansetron HCl (Zofran Inj) 4 mg Q6H PRN IV 02/27/17 15:30 03/29/17 15:29 Polyethylene (Miralax Powder Packet) 17 gm DAILY PRN PO 02/27/17 15:30 03/29/17 15:29 Aspirin (Ecotrin Tab) 81 mg DAILY PO 02/28/17 09:00 03/30/17 08:59 Future hold 03/04/17 08:03 81 MG Cholecalciferol (Vitamin D Tab) 1,000 inter.unit DAILY PO 02/28/17 09:00 03/30/17 08:59 03/04/17 08:04 1,000 INTER.UNIT Cyanocobalamin (Vitamin B-12 Tab) 1,000 mcg DAILY PO 02/28/17 09:00 03/30/17 08:59 03/04/17 08:03 1,000 MCG Tamsulosin HCl (Flomax Cap) 0.4 mg DAILY PO 02/28/17 09:00 03/30/17 08:59 Future Hold 03/03/17 09:04 0.4 MG Glucose (Glucose 40% Gel) 15-30 GRAMS 15 GRAMS... UD PRN PO 02/27/17 17:30 03/29/17 17:29 Glucose (Glucose Chew Tab) 4-8 Tablets 4 Tabl... UD PRN PO 02/27/17 17:30 03/29/17 17:29 Dextrose (Dextrose 50% 50ML Syringe) 25-50ML OF 50% DW IV FOR... UD PRN IV 02/27/17 17:30 03/29/17 17:29 03/02/17 00:01 50 ML Glucagon (Glucagon Inj) 1 mg UD PRN SQ 02/27/17 17:30 03/29/17 17:29 Insulin Aspart (novoLOG ASPART) SLIDING SCALE If CARB RA... ACHS SC 03/01/17 16:00 03/31/17 15:59 03/04/17 17:46 5 UNITS Heparin Sodium (Porcine) (Heparin 10 Unit/ ml 5 ml Flush) 5 ml PRN PRN FLUSH 03/01/17 23:30 03/31/17 23:29 Enteral Nutritional Formula (Boost Glucose Control) 1 can TIDM PO 03/02/17 07:15 04/01/17 07:14 03/04/17 17:00 1 CAN Heparin Sodium (Porcine) (Heparin Sq 5000 Unit/0.5ml) 5,000 unit Q12H SQ 03/03/17 09:00 04/02/17 08:59 03/04/17 08:08 5,000 UNIT Ceftriaxone Sodium 2000 mg/ Dextrose 70 ml @ 100 mls/hr Q24H IV 03/02/17 14:00 03/16/17 13:59 03/04/17 14:03 100 MLS/HR Miscellaneous Information (Consult Glycemic Management Pharmacy) 1 ea UD PRN N/A 03/02/17 13:15 04/01/17 13:14 Lactobacillus Acidophilus (Floranex Tab) 4 tab TIDM PO 03/03/17 07:15 04/02/17 07:14 03/04/17 17:42 4 TAB Multivitamins (Multivitamin Tab) 1 tab QAM PO 03/03/17 09:00 04/02/17 08:59 03/04/17 08:04 1 TAB Thiamine HCl (Vitamin B-1 Tab) 100 mg QAM PO 03/03/17 09:00 04/02/17 08:59 03/04/17 08:04 100 MG Ipratropium [place] (Atrovent 0.02% 0.5MG/2.5ML Neb) 0.5 mg Q6H PRN INH 03/03/17 09:15 04/02/17 09:14 Levalbuterol (Xopenex 0.63 Mg/ 3 Ml Neb) 0.63 mg Q6H PRN INH 03/03/17 09:15 04/02/17 09:14 Psyllium Hydrophilic Mucilloid (Metamucil Powder) 1 pkt DAILY@1100 PO 03/03/17 11:00 04/02/17 10:59 03/03/17 11:38 1 PKT Metoprolol Tartrate (Lopressor Tab) 25 mg BID PO 03/03/17 21:00 04/02/17 20:59 03/04/17 08:03 25 MG Folic Acid (Folvite Tab) 1 mg QAM PO 03/04/17 09:00 04/03/17 08:59 03/04/17 08:04 1 MG Metoprolol Tartrate (Lopressor Iv) 5 mg Q6 PRN IV 03/03/17 17:45 04/02/17 17:44 Pantoprazole Sodium (Protonix Tab) 40 mg QAM PO 03/05/17 09:00 04/04/17 08:59 Insulin Glargine (Lantus Solostar Pen) 35 units DAILY@1700 SC 03/04/17 17:00 04/03/17 16:59 03/04/17 17:46 35 UNITS Insulin Aspart (novoLOG ASPART) SLIDING SCALE If CARB RA... TODAY@0200 ONCE SC 03/05/17 02:00 03/05/17 02:01 Objective Physical Exam General Appearance: no apparent distress Eyes: normal inspection Respiratory/Chest: lungs clear, normal breath sounds, no respiratory distress Cardiovascular: regular rate, rhythm Abdomen: normal bowel sounds, non tender, soft Extremities: no pedal edema, + swelling (R elbow and hand), + pertinent finding (R elbow pain and erythema) Neurologic/Psychiatric: alert, oriented x 3 Laboratory Results 03/04/17 06:27 Red Blood Count 3.52, Mean Corpuscular Volume 91.2, Mean Corpuscular Hemoglobin 30.4, Mean Corpuscular Hemoglobin Concent 33.3, Mean Platelet Volume 9.8 03/04/17 06:27 Test 03/04/17 06:27 03/04/17 14:00 03/04/17 16:15 White Blood Count 31.64 K/uL (4.8-10.8) Red Blood Count 3.52 M/uL (4.7-6.1) Hemoglobin 10.7 g/dL (14.0-18.0) Hematocrit 32.1 % (42-52) Mean Corpuscular Volume 91.2 fL (80-100) Mean Corpuscular Hemoglobin 30.4 pg (25-34) Mean Corpuscular Hemoglobin Concent 33.3 g/dl (32-36) Platelet Count 605 K/uL (130-400) Mean Platelet Volume 9.8 fL (7.4-10.4) RDW Standard Deviation 51.4 fL (36.4-46.3) RDW Coefficient of Variation 15.3 % (11.5-14.5) Neutrophils % (Manual) 88.0 % Lymphocytes % (Manual) 2.0 % Monocytes % (Manual) 10.0 % Neutrophils # (Manual) 27.84 K/uL (1.4-6.5) Total Absolute Neutrophils 27.84 K/uL (1.4-6.5) Lymphocytes # (Manual) 0.63 K/uL (1.2-3.4) Total Absolute Lymphocytes 0.63 K/uL (1.2-3.4) Monocytes # (Manual) 3.16 K/uL (0.11-0.59) Toxic Granulation 2+ Dohle Bodies 1+ Anion Gap 6.0 mmol/L (3-11) Est Creatinine Clear Calc Drug Dose 67.0 ml/min Estimated GFR () 79.0 Estimated GFR (Non- 68.1 BUN/Creatinine Ratio 17.7 (10-20) Calcium Level 8.2 mg/dl (8.5-10.1) Total Bilirubin 0.3 mg/dl (0.2-1) Aspartate Amino Transf (AST/SGOT) 25 U/L (15-37) Alanine Aminotransferase (ALT/SGPT) 21 U/L (12-78) Alkaline Phosphatase 351 U/L (45-117) Total Protein 6.5 gm/dl (6.4-8.2) Albumin 1.7 gm/dl (3.4-5.0) Globulin 4.8 gm/dl (2.5-4.0) Albumin/Globulin Ratio 0.4 (0.9-2) Triglycerides Level 106 mg/dl (0-150) Cholesterol Level 67 mg/dl (0-200) HDL Cholesterol 16 mg/dl LDL Cholesterol, Calculated 30 mg/dl VLDL Cholesterol, Calculated 21 mg/dl Cholesterol/HDL Ratio 4.2 Urine Color YELLOW Urine Appearance CLOUDY (CLEAR) Urine pH 5.0 (4.5-7.5) Urine Specific [place] 1.022 (1.000-1.030) Urine Protein 1+ (NEG) Urine Glucose (UA) 2+ (NEG) Urine Ketones NEG (NEG) Urine Occult Blood 2+ (NEG) Urine Nitrite NEG (NEG) Urine Bilirubin NEG (NEG) Urine Urobilinogen NEG (NEG) Urine Leukocyte Esterase MODERATE (NEG) Urine WBC (Auto) >30 /hpf (0-5) Urine RBC (Auto) >30 /hpf (0-4) Urine Hyaline Casts (Auto) 1-5 /lpf (0-5) Urine Epithelial Cells (Auto) 0-5 /lpf (0-5) Urine Bacteria (Auto) 1+ (NEG) Urine Pathogenic Casts 1-5 GRANULAR CASTS /lpf (0) Urine Yeast (Auto) (NONE PRSENT) Bedside Glucose 221 mg/dl (70-99) Assessment and Plan 67 yo male admitted to the ICU with Septic shock 2/2 to urosepsis, post obstructive MACY. Currently with improving anemia post 1 unit pRBC transfusion and continues diarrhea (heme occult + on 03/02) Septic shock -Secondary to UTI with underlying obstructive uropathy -Pt had a recent hospitalization UTI/Prostatitis -Central line in place -Stopped pressors 03/01 -WBC uptrending again from 27.98 (03/03) to 31.64 today -Pt had 1 positive bcx-Staph Aureus and positive UCx for MSSA Staph Aureus - 2/ 2 septicemia from source -ID narrowed tx from empiric with Vancomycin and Zosyn to Recephin for 2 weeks -BCx repeated to ensure neg post empiric treatment given elevated WBC. Negative since 03/02 -Other possible cause of elevated WBC - prostatitis: UA positive -Oncology consulted by power brake rebuilder team: cytosis & leukocytosis reactive to sepsis given normal spleen and lack of L shift -Per ID recommendation MRI R elbow ordered to r/ot septic arthritis/ osteomyelitis given continued symptoms Diarrhea -Given elevated WBC: C-diff toxin reordered and neg -GI also ordered WBC smear (neg), shiga toxin, champylobacter and salmonella negative -Likely Antibiotic related, probiotics initiated -Per GI could also be from pancreatic insufficiency given pancreatic atrophy on CT. Alk phos elevation stable but given dilated hepatic duct on CT, and gallstones, MRCP when stable -Consider cholestyramine if diarrhea continues Improving Anemia -Present on arrival but considered dilutional -Also had hematuria which resolved -Received 2 units on 02/28 for 7.5 Hgb -Hgb downtrending again on 03/02 to 7.4, transfused with 1 unit pRBCs -heme occult - positive -Coags: INR 1.2 and PT 13.2 -GI consult placed for evaluation of GI source of bleeding given +heme occult but did not want to scope him given lack of active bleeding in light of acute illness -This AM H&H improved to 10.7 & 32.1 -Follow CBC - transfuse if Hgb below 6.5 per power brake rebuilder recs -Continue PPI R Elbow pain and swelling s/p falling on it at home last - stable -Ortho evaluated: traumatic hematoma/inflammation causing discomfort -Sling and Ice for comfort -F/u outpatient as needed ortho signed off -Per ID, given continued WBC elevation MRI ordered to rule out osteomyelitis R elbow NSTEMI - EF 44% -2/2 shock. Trops elevated x3 -ECHO shows hypokinesis of the left ventricle -BB - metoprolol 25mg BID initiated for tachycardia -Continue ASA -Consider continuing KORI tomorrow if Cr stable -Per Cards stable for angiography in the next day or 2 but patient hesitant MACY 2/2 obstructive uropathy - improved -Baseline Cr 1 -Cr improved from 1.40on 03/03 to 1.10 this AM -Hallman in place for flaccid bladder (pt non-complaint with self int caths). Keep hallman for 2 weeks, urology consulted and following -Per Urology, repeat KUB consistent with Lydia KUB, R pelvis calcification consistent and less likely from L ureteral stone -Follow BMP BPH -Continue Flomax (Tamsulosin) per urology note DKA -Pt came in with high sugars likely exacerbated by infection -Anion gap acidosis, elevated beta-hydroxybutyrate, normal lactic acid -PMHX DM2, noncompliant, HbA1c 8.6 (03/02) -Now on Lantus/NovoLog: Lantus 32; SC: CF: 25 CHO ratio 1:9 -Goal: 110-140 DVT prophylaxis Lovenox held for concerns of bleeding Heparin initiated by power brake rebuilder given benefits outweigh risks of GI bleed Resident Involvement: Resident Care Provided Care Provided: Adult Hospital Medicine Reviewed: Pt Seen/Exam by Me History Resident Physician Supervision Note: I interviewed and examined the patient. Discussed with Dr. Cowart and agree with findings and plan as documented in the note. Any exceptions or clarifications are listed here: Patient continues with diarrhea but it is slowing down. Sinus tachycardia is improved. Hemoglobin remained stable and renal function is continuing to improve. Right elbow is painful and he cannot bend it. Vital signs reviewed No acute distress, more talkative today, alert awake oriented 3 Anicteric sclerae, trachea is midline Regular rate and rhythm , no murmurs gallops rubs Lungs clear to auscultation bilaterally Abdomen soft nontender nondistended positive bowel sounds, Hallman in place draining clear yellow urine Extremities no edema in the lower extremities, 2+ dorsalis pedis pulses bilaterally, right elbow with significant edema with fluctuant area 3 x 3 cm just proximal to the olecranon, erythema and warmth from the posterior mid humerus down to the proximal forearm, range of motion is 0-20 actively and passively Skin erythema over the elbow as above 67-year-old male here with postobstructive acute kidney injury, severe sepsis from UTI with MSSA UTI and bacteremia, flaccid bladder with prostatitis. Also with anemia, Hemoccult positive stool, and noninfectious diarrhea, as well as persistently elevated leukocytosis and possible right elbow septic arthritis versus abscess versus osteomyelitis. -Renal function continues to improve, suspect was from sepsis and dehydration, continue to follow renal function and renally dose medications, avoid nephrotoxins -Continue Rocephin daily for MSSA UTI and bacteremia for total of 2 weeks, echo without vegetation on the valves, follow repeat blood cultures and if positive, consider SUSIE if repeat culture positive - leukocytosis is worsening again today, C. difficile negative 2 so far, repeat urinalysis without evidence of infection, it appears that it's possibly coming from the right elbow-check MRI of elbow and I discussed the case with orthopedics today in case of need for surgical management of the elbow -anemia improving, no gross bleeding, Appreciate GI consultation, no plans for endoscopy at this time given his critical status unless he developed gross GI bleeding -For elevated alkaline phosphatase and dilated intrahepatic ducts seen on CT, recommend MRCP tomorrow as per my discussion with GI today -For the diarrhea, could be antibiotic associated-continue probiotics and consider adding cholestyramine, could be pancreatic atrophy seen on CT with pancreatic insufficiency -For his recent NSTEMI, continue aspirin 81 mg once daily, but holding KORI inhibitor for acute kidney injury but will add on sand, continue metoprolol and consider cardiac catheterization in the near future -New onset systolic CHF secondary to recent SD-does not appear fluid overloaded , continue medications as above but does not need diuretic at this time -Heparin subcutaneous for DVT prophylaxis started by power brake rebuilder-benefit of preventing DVT outweighs risk of occult GI bleeding but will cautiously follow the CBC -Will need rehabilitation when medically stable Documented By: Maryellen Walters
[2017-03-04 19:10] VITALS: BP 133/70; PULSE 111; TEMP 37.4; O2SAT 95
[2017-03-04 20:55] VITALS: TEMP 37.2
[2017-03-05] VITALS (12 sets, daily range): BP systolic 123–145; BP diastolic 50–76; PULSE 93–141; TEMP 36.4–37; O2SAT 92–97; Ht 180.3 cm; Wt 71.9 kg
[2017-03-05] MEDS ORDERED: INSULIN ASPART 100 UNITS/ML 3 ML PEN SC ONE (02:00)
[2017-03-05 05:45] LABS: MEAN CELL VOLUME 91.4 fL (80-100); MEAN CORPUSCULAR HEMOGLOBIN 29.1 pg (25-34); MEAN CORPUSCULAR HGB CONC 31.8 g/dl (32-36); MEAN PLATELET VOLUME 9.8 fL (7.4-10.4); PLATELET COUNT 654 K/uL (130-400); RED BLOOD COUNT 3.61 M/uL (4.7-6.1); WHITE BLOOD COUNT 29.86 K/uL (4.8-10.8)
[2017-03-05 06:10] LABS: BUN/CREATININE RATIO 17.8 (10-20); CALCIUM 7.5 mg/dl (8.5-10.1); MAGNESIUM 1.5 mg/dl (1.8-2.4); POTASSIUM 3.9 mmol/L (3.5-5.1)
[2017-03-05 06:15] LABS: BASO % 0.1 %; BASO ABS # 0.02 K/uL (0-0.2); COMPLETE YES; IG% 0.8 %; LYMPH % 8.5 %; LYMPH ABS # 2.53 K/uL (1.2-3.4); MONO % 4.5 %; NEUT % 85.1 %; TOXIC GRANULATION OCCASIONAL; VACUOLIZATION OCCASIONAL
[2017-03-05 06:16] LABS: ALB/GLOB RATIO 0.3 (0.9-2); PREALBUMIN 5.2 mg/dl (20-40)
--- NOTE | 2017-03-05 07:17 | GASTROENTEROLOGY PROGRESS NOTE ---
DATE: 03/04/2017 The patient was seen and examined. The patient is awake and alert but does not appear fully oriented to place. He believes he is in [facility]. The patient is undergoing treatment for staphylococcal MSSA as well as right elbow potential cellulitis or tendinitis/bursitis. The patient has had diarrhea of unclear duration. It appears that some of this was exacerbated during his hospitalization when he was receiving antibiotics, although C. diff has been negative. However, when asked, the patient seems to recall that he had loose stools at home prior to his admission. LABORATORY STUDIES: Show an increasing white count of 31,000, hemoglobin 10.7, platelets 605,000, MCV 91. BUN and creatinine are 20 and 1.1. His alkaline phosphatase is elevated at 351, although transaminases and bilirubin are normal, it is unclear if this reflects a bony origin. On imaging study, CT of 02/28/2017, there is possible mild central prominence of the intrahepatic bile duct with the gallbladder that contains gallstones. Chest x-ray from earlier this afternoon revealed a left subsegmental medial lung base opacity consistent with atelectasis or possibly pneumonia. REVIEW OF SYSTEMS: Otherwise noncontributory based on 13-point exam. PHYSICAL EXAMINATION: VITAL SIGNS: Earlier today revealed blood pressure 107/71. This morning the patient is afebrile at 37.3, blood pressure 122/80, respirations 20, heart rate 93 and 97% on room air. GENERAL: The patient is awake and alert but somewhat confused to location. LUNGS: Clear to auscultation overall, although poor effort is noted. HEART: Normal S1, S2. ABDOMEN: Soft, nontender, nondistended with good bowel sounds. EXTREMITIES: There is no clubbing. There is trace to +1 edema. There is evidence of a right elbow erythematous patch. CURRENT MEDICATIONS: Include pantoprazole, insulin, folic acid, Lopressor, ipratropium p.r.n., Rocephin, Flomax. There was no evidence for C. diff on 03/02/2017 as well as routine bacterial organisms. Blood cultures did show evidence of Staph aureus. The source of the patient's diarrhea is unclear as well as its duration. At the present time, endoscopic examination is not recommended until his overall medical status improves. This is a staphylococcal infection and I am not sure if the diarrhea coincided with this as sometimes widespread Staph infection may lead to a toxic shock like syndrome that can produce diarrhea. Most of the infectious etiologies have been excluded, although given the rise in his white count, it may be reasonable for the patient to have a repeat stool for C. difficile as well as repeat cultures to ensure that a second organism not fully covered by Rocephin is present. In addition, there may be a new infiltrate in the lung. We will follow with you. Thank you for allowing us to participate in this patient's care.
[2017-03-05] MEDS ORDERED: LORAZEPAM 0.5 MG TAB PO STA (08:02)
[2017-03-05] MEDS: INSULIN ASPART 100 UNITS/ML 3 ML PEN SC SCH ×4 (08:52→20:35)
[2017-03-05] MEDS: LACTOBACILLUS ACIDOPHILUS (FLORANEX) TAB PO SCH ×4 (08:53→16:53)
[2017-03-05] MEDS: ASPIRIN 81 MG ECTAB PO SCH ×2 (08:53→14:33)
[2017-03-05] MEDS: BOOST GLUCOSE CONTROL PO SCH ×3 (08:53→16:54)
[2017-03-05] MEDS: METOPROLOL TARTRATE 25 MG TAB PO SCH ×3 (08:53→20:30)
[2017-03-05] MEDS: CYANOCOBALAMIN 500 MCG TAB (VIT B-12) PO SCH ×2 (08:54→14:32)
[2017-03-05] MEDS: CHOLECALCIFEROL 1000 INTER.UNIT TAB PO SCH ×2 (08:54→14:33)
[2017-03-05] MEDS: PANTOprazole SOD 40 MG TAB PO SCH ×2 (08:54→14:33)
[2017-03-05] MEDS: MULTIVITAMIN TAB PO SCH ×2 (08:54→14:33)
[2017-03-05] MEDS: THIAMINE HCL 100 MG TAB PO SCH ×2 (08:54→14:32)
[2017-03-05] MEDS: INSULIN HUMAN NPH SC SCH ×2 (08:56→12:00)
[2017-03-05] MEDS ORDERED: NURSING VERBAL MED ORDER ONE (09:00)
--- NOTE | 2017-03-05 09:25 | Progress Note ---
Subjective Date of Service: Mar 05, 2017. Subjective Pt evaluation today including: conversation w/ patient, chart review, lab review Voiding: hallman catheter in place (patent, draining clear, yellow urine) 67 yo male with AVERY and sepsis secondary to BPH with UR. Pt pending MRI of right elbow and MRCP this today. Urine remains clear, yellow. Flomax held for hypotension. Problem List Medical Problems: (1) DKA (diabetic ketoacidoses) Status: Acute (2) Urinary tract infection Status: Acute Review of Systems Constitutional: No fever, No chills Respiratory: No shortness of breath Cardiac: No chest pain Abdomen: No pain, No nausea, No vomiting Musculoskeletal: + problem reported (right elbow pain ) Male : No hematuria Heme: No abnormal bleeding/bruising Objective Vital Signs Date Time Temp Pulse Resp B/P (MAP) Pulse Ox O2 Delivery O2 Flow Rate FiO2 03/05/17 07:21 36.4 105 16 137/72 (93) 96 Room Air 03/05/17 04:50 36.9 98 16 133/72 (92) 95 Room Air 03/05/17 04:00 Room Air 03/05/17 00:10 36.7 93 16 123/66 (85) 97 Room Air 03/05/17 00:00 Room Air 03/04/17 20:55 37.2 03/04/17 20:00 Room Air 03/04/17 19:10 37.4 111 20 133/70 (91) 95 Room Air 03/04/17 16:00 Room Air 03/04/17 15:49 Room Air 03/04/17 11:52 107/71 (83) 03/04/17 11:37 Room Air 03/04/17 10:55 37.3 93 20 122/80 (94) 97 Room Air Physical Exam General Appearance: no apparent distress Eyes: normal inspection ENT: hearing grossly normal Neck: no JVD Respiratory/Chest: no respiratory distress, no accessory muscle use Cardiovascular: no JVD Extremities: + pertinent finding (erythema and slight swelling of the right elbow noted) Neurologic/Psychiatric: alert, normal mood/affect, oriented x 3 Skin: normal color Laboratory Results Last 24 Hours Test 03/04/17 10:56 03/04/17 14:00 03/04/17 16:15 03/04/17 20:29 Bedside Glucose 241 mg/dl 221 mg/dl 195 mg/dl Urine Color YELLOW Urine Appearance CLOUDY Urine pH 5.0 Urine Specific [place] 1.022 Urine Protein 1+ Urine Glucose (UA) 2+ Urine Ketones NEG Urine Occult Blood 2+ Urine Nitrite NEG Urine Bilirubin NEG Urine Urobilinogen NEG Urine Leukocyte Esterase MODERATE Urine WBC (Auto) >30 /hpf Urine RBC (Auto) >30 /hpf Urine Hyaline Casts (Auto) 1-5 /lpf Urine Epithelial Cells (Auto) 0-5 /lpf Urine Bacteria (Auto) 1+ Urine Pathogenic Casts 1-5 GRANULAR CASTS /lpf Urine Yeast (Auto) Test 03/05/17 04:33 03/05/17 05:05 03/05/17 07:43 Bedside Glucose 90 mg/dl 84 mg/dl White Blood Count 29.86 K/uL Red Blood Count 3.61 M/uL Hemoglobin 10.5 g/dL Hematocrit 33.0 % Mean Corpuscular Volume 91.4 fL Mean Corpuscular Hemoglobin 29.1 pg Mean Corpuscular Hemoglobin Concent 31.8 g/dl Platelet Count 654 K/uL Mean Platelet Volume 9.8 fL Neutrophils (%) (Auto) 85.1 % Lymphocytes (%) (Auto) 8.5 % Monocytes (%) (Auto) 4.5 % Eosinophils (%) (Auto) 1.0 % Basophils (%) (Auto) 0.1 % Neutrophils # (Auto) 25.43 K/uL Lymphocytes # (Auto) 2.53 K/uL Monocytes # (Auto) 1.34 K/uL Eosinophils # (Auto) 0.31 K/uL Basophils # (Auto) 0.02 K/uL RDW Standard Deviation 50.9 fL RDW Coefficient of Variation 15.0 % Immature Granulocyte % (Auto) 0.8 % Immature Granulocyte # (Auto) 0.23 K/uL Toxic Granulation OCCASIONAL Toxic Vacuolation OCCASIONAL Sodium Level 142 mmol/L Potassium Level 3.9 mmol/L Chloride Level 107 mmol/L Carbon Dioxide Level 29 mmol/L Anion Gap 6.0 mmol/L Blood Urea Nitrogen 18 mg/dl Creatinine 1.00 mg/dl Est Creatinine Clear Calc Drug Dose 73.7 ml/min Estimated GFR () 88.6 Estimated GFR (Non- 76.5 BUN/Creatinine Ratio 17.8 Random Glucose 82 mg/dl Calcium Level 7.5 mg/dl Magnesium Level 1.5 mg/dl Total Bilirubin 0.3 mg/dl Direct Bilirubin 0.1 mg/dl Aspartate Amino Transf (AST/SGOT) 15 U/L Alanine Aminotransferase (ALT/SGPT) 17 U/L Alkaline Phosphatase 317 U/L Total Protein 6.7 gm/dl Albumin 1.6 gm/dl Globulin 5.1 gm/dl Albumin/Globulin Ratio 0.3 Prealbumin 5.2 mg/dl Assessment and Plan A/P: Sepsis secondary to UR from AVERY. Repeat renal u/s showing some persistent hydro. Not uncommon in the setting of UR. Expect this may take a few weeks with hallman in place to resolve. Reviewed CT and u/s with Dr Allan yesterday. Compared with previous KUB from December. Calcification in the pelvis appears consistent. Doubtful for left ureteral stone at this time, especially considering he remains afebrile. Would place stent urgently if he were to decompensate or develop a fever. Renal function remains stable. Continue IV abx for sepsis per ID. Would transition him to 4 weeks of Bactrim prior to d/c home to tx for prostatitis. Hallman catheter should remain in place for 2-4 weeks in the setting of UTI and likely prostatitis. Will repeat a renal u/s prior to TOV at that time. Resume tamsulosin when able. Will arrange for outpatient cysto for further evaluation of BPH and UR once his infection has been adequately tx. The pt is likely to benefit from a TURP in the future. No further management at this time. Recall PRN issues. Thanks for allowing us to participate in this pt's care.
--- NOTE | 2017-03-05 09:30 | Cardiology Follow-Up ---
Subjective Date of Service: Mar 05, 2017. Pt evaluation today including: conversation w/ patient, physical exam, chart review, lab review, review of studies History of Present Illness Patient was somewhat frustrated this morning regarding a delay in his elbow imaging. He could not recall whether he had been out of bed yesterday. He denies any pain currently with the exception of low back pain. He claims to have requested Tylenol yesterday but been denied as he had taken too much. He has not had any breathing difficulty. He denies any sense of palpitation. He cannot recall if he has had recent diarrhea. He denies any abdominal complaints Social History Smoking Status: Former Smoker History of Alcohol Use: Yes (OCC ) Review of Systems Respiratory: No shortness of breath Cardiac: No chest pain Objective Vital Signs Past 12 Hours Date Time Temp Pulse Resp B/P (MAP) Pulse Ox O2 Delivery O2 Flow Rate FiO2 03/05/17 07:21 36.4 105 16 137/72 (93) 96 Room Air 03/05/17 04:50 36.9 98 16 133/72 (92) 95 Room Air 03/05/17 04:00 Room Air 03/05/17 00:10 36.7 93 16 123/66 (85) 97 Room Air 03/05/17 00:00 Room Air Last Recorded Weight-Kilograms: 75.200 Physical Exam He appeared somewhat confused this morning. He had difficulty with word finding. There may been some confabulation. HEENT: Pupils are equal and reactive to light and accommodation. Extraocular movements are intact. The sclerae are anicteric. Neuro: Cranial nerves intact Neck: Patient's neck is supple. He has palpable carotid pulses bilaterally without bruits on auscultation. There is no evidence of jugular venous distention. The thyroid is not enlarged. Lungs: Bibasilar crackles. Cardiac: Heart demonstrates a regular rate and rhythm. Normal S1 and S2. Holosystolic murmur. Pulses: The patient has palpable radial pulses bilaterally that are equal in intensity Extremities: There was no evidence of hypoperfusion. There is no cyanosis or clubbing. There is no edema. He has some mild erythema and swelling involving the right elbow. The right middle digit is also swollen Skin: I did not appreciate any rashes on examination today. Data Laboratory Results: Last 24 Hours Test 03/04/17 10:56 03/04/17 14:00 8/30/17 16:15 03/04/17 20:29 Bedside Glucose 241 mg/dl 221 mg/dl 195 mg/dl Urine Color YELLOW Urine Appearance CLOUDY Urine pH 5.0 Urine Specific [place] 1.022 Urine Protein 1+ Urine Glucose (UA) 2+ Urine Ketones NEG Urine Occult Blood 2+ Urine Nitrite NEG Urine Bilirubin NEG Urine Urobilinogen NEG Urine Leukocyte Esterase MODERATE Urine WBC (Auto) >30 /hpf Urine RBC (Auto) >30 /hpf Urine Hyaline Casts (Auto) 1-5 /lpf Urine Epithelial Cells (Auto) 0-5 /lpf Urine Bacteria (Auto) 1+ Urine Pathogenic Casts 1-5 GRANULAR CASTS /lpf Urine Yeast (Auto) Test 03/05/17 04:33 03/05/17 05:05 03/05/17 07:43 Bedside Glucose 90 mg/dl 84 mg/dl White Blood Count 29.86 K/uL Red Blood Count 3.61 M/uL Hemoglobin 10.5 g/dL Hematocrit 33.0 % Mean Corpuscular Volume 91.4 fL Mean Corpuscular Hemoglobin 29.1 pg Mean Corpuscular Hemoglobin Concent 31.8 g/dl Platelet Count 654 K/uL Mean Platelet Volume 9.8 fL Neutrophils (%) (Auto) 85.1 % Lymphocytes (%) (Auto) 8.5 % Monocytes (%) (Auto) 4.5 % Eosinophils (%) (Auto) 1.0 % Basophils (%) (Auto) 0.1 % Neutrophils # (Auto) 25.43 K/uL Lymphocytes # (Auto) 2.53 K/uL Monocytes # (Auto) 1.34 K/uL Eosinophils # (Auto) 0.31 K/uL Basophils # (Auto) 0.02 K/uL RDW Standard Deviation 50.9 fL RDW Coefficient of Variation 15.0 % Immature Granulocyte % (Auto) 0.8 % Immature Granulocyte # (Auto) 0.23 K/uL Toxic Granulation OCCASIONAL Toxic Vacuolation OCCASIONAL Sodium Level 142 mmol/L Potassium Level 3.9 mmol/L Chloride Level 107 mmol/L Carbon Dioxide Level 29 mmol/L Anion Gap 6.0 mmol/L Blood Urea Nitrogen 18 mg/dl Creatinine 1.00 mg/dl Est Creatinine Clear Calc Drug Dose 73.7 ml/min Estimated GFR () 88.6 Estimated GFR (Non- 76.5 BUN/Creatinine Ratio 17.8 Random Glucose 82 mg/dl Calcium Level 7.5 mg/dl Magnesium Level 1.5 mg/dl Total Bilirubin 0.3 mg/dl Direct Bilirubin 0.1 mg/dl Aspartate Amino Transf (AST/SGOT) 15 U/L Alanine Aminotransferase (ALT/SGPT) 17 U/L Alkaline Phosphatase 317 U/L Total Protein 6.7 gm/dl Albumin 1.6 gm/dl Globulin 5.1 gm/dl Albumin/Globulin Ratio 0.3 Prealbumin 5.2 mg/dl Telemetry reviewed: Borderline sinus tachycardia with periods of likely atrial tachycardia. Mildly improved rate control. Assessment and Plan 1. Non ST-elevation myocardial infarction. Patient will be continued on medical therapy. He was advised to undergo coronary angiography based on his presentation and studies but currently refuses. 2. LV systolic failure: Overall appears to be well compensated. He is diuresing without administration of medical therapy. He does have some bibasilar crackles but this is most likely atelectasis. He has not been very mobile and or supine in bed. 3. Tachycardia: The patient has both sinus tachycardia and brief periods of what are likely an atrial arrhythmia, possibly and that ectopic atrial tachycardia. No symptoms. Overall heart rates are slightly improved. I would continue his beta-callie. 4. Confusion: The patient did seem somewhat confused today. He did have some difficulty with word finding. There medicine some confabulation as well. This appears to have been waxing waning throughout his hospitalization and may be a related to his infectious process. At this point would seem reasonable institute Dennis inhibition given his normal renal function and normal attention. I would suggest low-dose lisinopril 2.5 milligrams daily with titration upwards as tolerated. I will also institute statin therapy. Atorvastatin 40 or 80 milligrams would seem appropriate.
[2017-03-05] MEDS: MAGNESIUM SULFATE 1GM / D5W 1 GM in PREMIXED IN D5W 100 ML IV SCH ×2 (10:09→10:59)
[2017-03-05] MEDS: HEPARIN SOD 5000 UNIT/0.5 ML CARP SQ SCH (10:10)
[2017-03-05] MEDS: PSYLLIUM 58.6% PWD PACK S\\F PO SCH (11:00)
[2017-03-05] MEDS ORDERED: LORAZEPAM 0.5 MG TAB ONE (11:24)
--- NOTE | 2017-03-05 13:47 | Progress Note ---
Subjective Date of Service: Mar 05, 2017. Subjective pt in mri. results pending. afebrile. wbc mildly improved to 29 today. remains on ctx and is tolerating well. repeat blood cultures negative to date. no overnight events. Problem List Medical Problems: (1) DKA (diabetic ketoacidoses) Status: Acute (2) Urinary tract infection Status: Acute Objective Vital Signs Date Time Temp Pulse Resp B/P (MAP) Pulse Ox O2 Delivery O2 Flow Rate FiO2 03/05/17 12:13 36.9 123 16 142/76 (98) 94 Room Air 03/05/17 12:00 94 Room Air 03/05/17 10:52 128 141/80 03/05/17 08:00 96 Room Air 03/05/17 07:21 36.4 105 16 137/72 (93) 96 Room Air 03/05/17 04:50 36.9 98 16 133/72 (92) 95 Room Air 03/05/17 04:00 Room Air 03/05/17 00:10 36.7 93 16 123/66 (85) 97 Room Air 03/05/17 00:00 Room Air 03/04/17 20:55 37.2 03/04/17 20:00 Room Air 03/04/17 19:10 37.4 111 20 133/70 (91) 95 Room Air 03/04/17 16:00 Room Air 03/04/17 15:49 Room Air Laboratory Results Item Value Date Time Blood Culture - Preliminary Resulted 03/02/17 1012 Blood NO GROWTH TO DATE. Blood Culture - Preliminary Resulted 03/02/17 1009 Blood NO GROWTH TO DATE. Blood Culture - Final Complete 02/27/17 1522 Blood Staphylococcus Aureus Urine Culture - Final Complete 02/27/17 0000 Urine,Catheterized Staphylococcus Aureus Last 24 Hours Test 03/04/17 14:00 03/04/17 16:15 03/04/17 20:29 03/05/17 04:04 Urine Color YELLOW Urine Appearance CLOUDY Urine pH 5.0 Urine Specific [place] 1.022 Urine Protein 1+ Urine Glucose (UA) 2+ Urine Ketones NEG Urine Occult Blood 2+ Urine Nitrite NEG Urine Bilirubin NEG Urine Urobilinogen NEG Urine Leukocyte Esterase MODERATE Urine WBC (Auto) >30 /hpf Urine RBC (Auto) >30 /hpf Urine Hyaline Casts (Auto) 1-5 /lpf Urine Epithelial Cells (Auto) 0-5 /lpf Urine Bacteria (Auto) 1+ Urine Pathogenic Casts 1-5 GRANULAR CASTS /lpf Urine Yeast (Auto) Bedside Glucose 221 mg/dl 195 mg/dl 66 mg/dl Test 03/05/17 04:33 03/05/17 05:05 03/05/17 07:43 Bedside Glucose 90 mg/dl 84 mg/dl White Blood Count 29.86 K/uL Red Blood Count 3.61 M/uL Hemoglobin 10.5 g/dL Hematocrit 33.0 % Mean Corpuscular Volume 91.4 fL Mean Corpuscular Hemoglobin 29.1 pg Mean Corpuscular Hemoglobin Concent 31.8 g/dl Platelet Count 654 K/uL Mean Platelet Volume 9.8 fL Neutrophils (%) (Auto) 85.1 % Lymphocytes (%) (Auto) 8.5 % Monocytes (%) (Auto) 4.5 % Eosinophils (%) (Auto) 1.0 % Basophils (%) (Auto) 0.1 % Neutrophils # (Auto) 25.43 K/uL Lymphocytes # (Auto) 2.53 K/uL Monocytes # (Auto) 1.34 K/uL Eosinophils # (Auto) 0.31 K/uL Basophils # (Auto) 0.02 K/uL RDW Standard Deviation 50.9 fL RDW Coefficient of Variation 15.0 % Immature Granulocyte % (Auto) 0.8 % Immature Granulocyte # (Auto) 0.23 K/uL Toxic Granulation OCCASIONAL Toxic Vacuolation OCCASIONAL Sodium Level 142 mmol/L Potassium Level 3.9 mmol/L Chloride Level 107 mmol/L Carbon Dioxide Level 29 mmol/L Anion Gap 6.0 mmol/L Blood Urea Nitrogen 18 mg/dl Creatinine 1.00 mg/dl Est Creatinine Clear Calc Drug Dose 73.7 ml/min Estimated GFR () 88.6 Estimated GFR (Non- 76.5 BUN/Creatinine Ratio 17.8 Random Glucose 82 mg/dl Calcium Level 7.5 mg/dl Magnesium Level 1.5 mg/dl Total Bilirubin 0.3 mg/dl Direct Bilirubin 0.1 mg/dl Aspartate Amino Transf (AST/SGOT) 15 U/L Alanine Aminotransferase (ALT/SGPT) 17 U/L Alkaline Phosphatase 317 U/L Total Protein 6.7 gm/dl Albumin 1.6 gm/dl Globulin 5.1 gm/dl Albumin/Globulin Ratio 0.3 Prealbumin 5.2 mg/dl Assessment and Plan (1) MSSA (methicillin susceptible Staphylococcus aureus) septicemia Assessment & Plan: ? source gu vs elbow. concerned for septic arthritis right elbow. ortho following. await MRI findings. continue ctx for now, follow repeat blood cultures, pending. echo negative for veg wbc remains elevated, for MRI today, follow results. continue abx and follow culture, negative to date. will require prolonged course IV abx. (2) Leukocytosis
--- NOTE | 2017-03-05 13:49 | Pharmacy Progress Note ---
Glycemic Control Progress Note Date of Service Mar 05, 2017. Scope Glycemic Pharmacist consulted for glycemic control to write orders per [facility] inpatient glycemic control protocol. Objective Accuchecks BSG (last 24hrs): Test 03/04/17 16:15 03/04/17 20:29 03/05/17 04:04 03/05/17 04:33 Bedside Glucose 221 mg/dl (70-99) 195 mg/dl (70-99) 66 mg/dl (70-99) 90 mg/dl (70-99) Test 03/05/17 05:05 03/05/17 07:43 Random Glucose 82 mg/dl (70-99) Bedside Glucose 84 mg/dl (70-99) HbA1c: Test 03/03/17 04:42 Hemoglobin A1c 8.6 % (4.5-5.6) H Recent Pertinent Medications Outpatient Anti-diabetic Regimen: * history of non-compliance * Lantus 30 units Q HS * Metformin 1000mg PO BID The patient is currently receiving: * Basal insulin: Lantus 35 units every 24 hours - dosed in the evening * Correctional Insulin: Novolog Correction per scale ACHS Goal Range: Low 110 mg/dL - High 140 mg/dL Correction Factor: 25 mg/dL/unit * Prandial insulin: Per carb ratio of 1 unit per 9 grams CHO consumed * Oral Agents: None currently Risk Factors for Insulin Resistance: * Infection: receiving ceftriaxone IV therapy for MSSA bacteremia + MSSA UTI * Diet: ordered T2DM diet however patient NPO today per nursing documentation; having MRI and MRCP Assessment & Plan ASSESSMENT: 03/02/17 * Type 2 diabetic with h/o poor control admitted for sepsis - likely related to obstructive uropathy / prostatitis as well as NSTEMI * BSGs have ranged 45-292 over the last 24 hours * He has received 61 units of SQ insulin while tolerating very little PO * Patient developed severe hypoglycemia last evening, BSG 45, likely secondary to excess basal insulin in the setting of poor PO intake. He did have a total of 50 units of basal insulin yesterday (0.67units/kg/day of basal insulin alone) * Will decrease the basal insulin dose to ~50% of yesterday's total daily insulin requirement. Will base insulin doses on a total daily insulin dose of ~ 60 units/kg/day (or 0.8 units/kg/day) - a severe stress wt-based insulin dose * The current CF and CR are reasonable starting points. Will follow post- prandial BSGs today and adjust if necessary 03/03/17 * BSGs have ranged 71-243 over the last 24 hrs * Fasting BSG 174 this AM w/ 30 units of basal insulin on board - will increase dose again however will not increase back to 50 units daily given recent h/o hypoglycemia on this dose * Post-prandial BSGs were elevated on 2 of 3 checks yesterday, will adjust the CR and CF to allow for larger meal-time doses * Will add BSG check overnight to allow for additional coverage should the increase in Lantus dose not be adequate 03/04/17 * Patient again experienced an episode of hypoglycemia overnight, likely related to excess Lantus on board. This time his BSG dropped to 56 and he had 40 units of Lantus on board. He had previously dropped to 45 on a Lantus dose of 50 units/day. When he was given 30 units / day he remained hyperglycemic. Ideally this patient would likely benefit from twice daily Lantus as it appears the effects may be wearing off in less than 24 hrs as his BSGs trend upward with lunch and dinner then quickly fall. However give his h/o non-compliance, once daily dosing would be preferred. Will lower his Lantus dose again at this time and continue once daily administration - perhaps AM administration would be better? * Will continue the current CF and CR given the new change in Lantus. Will reeval tomorrow. 03/05/17 * Patient again had an episode of hypoglycemia overnight, however this episode with mild and only dipped to 66 - this was despite a lowered dose of Lantus w/ dinner yesterday. I am hesitant to continue Lantus at this time and I believe a more appropriate insulin for him would be NPH given once daily in the AM as he drops precipitously overnight but experiences hyperglycemia during the daylight hours. * Ordered NPH 15 units w/ breakfast + lunch today in order to space out the doses while BSGs running less than 100 this AM, however both doses have been held by RN as he is NPO for procedure today. * I plan to trial NPH 30 units SQ daily w/ breakfast starting tomorrow * Continue the current CF and CR for now and evaluate tomorrow with NPH on board PLAN FOR INPATIENT GLYCEMIC CONTROL: * Continue to hold metformin * D/C Lantus and begin NPH 30 units SQ once daily w/ breakfast * Continue correction factor of 25 mg/dl/unit * Continue carb ratio of 1 unit per 9 grams CHO consumed * Continue goal range of Low 110 mg/dL - High 140 mg/dL * Please note that the plan above was derived based on current level of insulin resistance and hospital stress. These recommendations are appropriate for inpatient admission only. Plan of care upon discharge will need to be reassessed to avoid potential outpatient hypo/hyperglycemia. Thank you.
[2017-03-05] MEDS ORDERED: GADAVIST IV PRN (14:00)
[2017-03-05] MEDS: CEFTRIAXONE SOD INJ 2,000 MG in DEXTROSE 5% 50ML 50 ML IV SCH (14:08)
--- NOTE | 2017-03-05 14:11 | DIAGNOSTIC IMAGING REPORT ---
RIGHT UPPER EXT JOINT COMBO CLINICAL HISTORY: 67 years-old Male presenting with right elbow swelling after fall one week ago, redness, inflammation, limited range of motion, r/o septic joint or abscess. TECHNIQUE: Multisequence, multiplanar MR imaging of the right elbow was performed before and after the administration of intravenous contrast. IV contrast: 7.5 mL of Gadavist. COMPARISON: Correlation made to plain radiographs from 02/28/2017. FINDINGS: Diffuse subcutaneous edema at the elbow. Complex T2 hyperintense, T1 hypointense multilocular fluid collection superficial and proximal to the olecranon tracking along the distal triceps tendon. Multiple locules extend deep to the triceps tendon and about the dorsal aspect of the distal humeral metaphysis. The superior extent of this collection extends proximal to the [id number]. Maximal axial dimensions measure approximately 6.9 x 3.4 cm. This collection demonstrates rim enhancement. Proximal to the expected location of the olecranon bursa. No large joint effusion. No bony edema is evident. No evidence of fracture. Normal T1 signal intensity of the bone marrow throughout. No fluid signal intensity traverses the cortex to suggest erosion. The triceps tendon insertion is grossly intact, although the lateral aspect of the myotendinous junction appears torn. Intramuscular edema of the triceps as well as extending into the flexor compartment. Biceps tendon insertion intact. Image quality limits evaluation for ligamentous injury. Within this limitation, lateral collateral ligament complex grossly intact. Medial collateral ligament complex also grossly intact. Elbow joint congruent. No gross evidence of an articular cartilage injury. IMPRESSION: 1. Large complex fluid collection superficial and proximal to the olecranon tracking along the distal triceps tendon. Without intrinsic T1 hyperintensity to suggest hematoma, this is concerning for an abscess versus reactive fluid. This appears proximal to the expected location of the olecranon bursa. This is separate from the joint. No convincing evidence of septic arthritis or osteomyelitis. 2. Suspicion for tear of the triceps at the myotendinous junction along the lateral margin. 3. No evidence of fracture. Electronically signed by: Kj Ruelas M.D. 03/05/2017 2:10 PM Dictated Date/Time: 03/05/2017 2:00 PM
[2017-03-05] MEDS ORDERED: METOPROLOL TARTRATE 1 MG/ML VIAL IV ONE (15:00)
[2017-03-05] MEDS ORDERED: METOPROLOL TARTRATE 1 MG/ML VIAL ONE (15:03)
--- NOTE | 2017-03-05 15:17 | Orthopedic Progress Note ---
Orthopedic Progress Note Date of Service Mar 05, 2017. Subjective Additional Notes: Pt sitting up in bed eating lunch. States that he thinks his elbow / triceps area is better today. Just returned from MRI of the elbow. Objective Hematoma area over the triceps seems to be a little less swollen than when I last saw him. A bit more erythema over the olecranon area. Palpating the elbow does not elicit a painful response. Able to go through ROM of the elbow with mild discomfort. Swelling in forearm appears less to me but fingers continue with swelling. Date Time Temp Pulse Resp B/P (MAP) Pulse Ox O2 Delivery O2 Flow Rate FiO2 03/05/17 12:13 36.9 123 16 142/76 (98) 94 Room Air 03/05/17 12:00 94 Room Air 03/05/17 10:52 128 141/80 03/05/17 08:00 96 Room Air 03/05/17 07:21 36.4 105 16 137/72 (93) 96 Room Air 03/05/17 04:50 36.9 98 16 133/72 (92) 95 Room Air 03/05/17 04:00 Room Air 03/05/17 00:10 36.7 93 16 123/66 (85) 97 Room Air 03/05/17 00:00 Room Air 03/04/17 20:55 37.2 03/04/17 20:00 Room Air 03/04/17 19:10 37.4 111 20 133/70 (91) 95 Room Air 03/04/17 16:00 Room Air 03/04/17 15:49 Room Air Laboratory Results 24 Hours: Test 03/05/17 05:05 White Blood Count 29.86 K/uL Red Blood Count 3.61 M/uL Hemoglobin 10.5 g/dL Hematocrit 33.0 % Mean Corpuscular Volume 91.4 fL Mean Corpuscular Hemoglobin 29.1 pg Mean Corpuscular Hemoglobin Concent 31.8 g/dl Platelet Count 654 K/uL Mean Platelet Volume 9.8 fL Neutrophils (%) (Auto) 85.1 % Lymphocytes (%) (Auto) 8.5 % Monocytes (%) (Auto) 4.5 % Eosinophils (%) (Auto) 1.0 % Basophils (%) (Auto) 0.1 % Neutrophils # (Auto) 25.43 K/uL Lymphocytes # (Auto) 2.53 K/uL Monocytes # (Auto) 1.34 K/uL Eosinophils # (Auto) 0.31 K/uL Basophils # (Auto) 0.02 K/uL Additional Notes: MRI Results IMPRESSION: 1. Large complex fluid collection superficial and proximal to the olecranon tracking along the distal triceps tendon. Without intrinsic T1 hyperintensity to suggest hematoma, this is concerning for an abscess versus reactive fluid. This appears proximal to the expected location of the olecranon bursa. This is separate from the joint. No convincing evidence of septic arthritis or osteomyelitis. 2. Suspicion for tear of the triceps at the myotendinous junction along the lateral margin. 3. No evidence of fracture. Assessment & Plan Assessment: Right Superficial Triceps area hematoma vs Abscess. Sling for comfort. Dr Schroeder to assess for possible I&D
[2017-03-05] MEDS: ACETAMINOPHEN IV 650 MG in EMPTY BAG 0 ML IV PRN (15:41)
[2017-03-05 15:50] LABS: O&P GIARDIA AG NOT DETECTED (NOT DETECTED)
[2017-03-05] MEDS ORDERED: METOPROLOL TARTRATE 1 MG/ML VIAL IV PRN (16:00)
[2017-03-05] MEDS ORDERED: ACETAMINOPHEN 325 MG TAB PO SCH (16:00)
--- NOTE | 2017-03-05 17:48 | Family Medicine Progress Note ---
Progress Note Date of Service Mar 05, 2017. Subjective Pt evaluation today including: conversation w/ patient, physical exam, chart review, lab review Pain: R elbow pain persistent PO Intake: tolerating Voiding: hallman catheter in place This AM Mr. Patel reports persistent R elbow pain, swelling and redness with difficulty flexing forearm. He also reports 3 episodes of loose stools yesterday and again 2 today Otherwise he denies having cp, sob, abd pn, n/v. Constitutional: No fever Respiratory: No shortness of breath Cardiovascular: No chest pain Medications Current Inpatient Medications Medications (Trade) Dose Ordered Sig/Nilda Route Start Time Stop Time Status Last Admin Dose Admin Acetaminophen (Tylenol Tab) 650 mg Q4H PRN PO 02/27/17 15:30 03/29/17 15:29 03/04/17 19:32 650 MG Al Hydrox/Mg Hydrox/Simethicone (Maalox Max Susp) 15 ml Q4H PRN PO 02/27/17 15:30 03/29/17 15:29 Magnesium Hydroxide (Milk Of Magnesia Susp) 30 ml Q12H PRN PO 02/27/17 15:30 03/29/17 15:29 Ondansetron HCl (Zofran Inj) 4 mg Q6H PRN IV 02/27/17 15:30 03/29/17 15:29 Polyethylene (Miralax Powder Packet) 17 gm DAILY PRN PO 02/27/17 15:30 03/29/17 15:29 Aspirin (Ecotrin Tab) 81 mg DAILY PO 02/28/17 09:00 03/30/17 08:59 Future hold 03/05/17 14:33 81 MG Cholecalciferol (Vitamin D Tab) 1,000 inter.unit DAILY PO 02/28/17 09:00 03/30/17 08:59 03/05/17 14:33 1,000 INTER.UNIT Cyanocobalamin (Vitamin B-12 Tab) 1,000 mcg DAILY PO 02/28/17 09:00 03/30/17 08:59 03/05/17 14:32 1,000 MCG Tamsulosin HCl (Flomax Cap) 0.4 mg DAILY PO 02/28/17 09:00 03/30/17 08:59 Future Hold 03/03/17 09:04 0.4 MG Glucose (Glucose 40% Gel) 15-30 GRAMS 15 GRAMS... UD PRN PO 02/27/17 17:30 03/29/17 17:29 Glucose (Glucose Chew Tab) 4-8 Tablets 4 Tabl... UD PRN PO 02/27/17 17:30 03/29/17 17:29 Dextrose (Dextrose 50% 50ML Syringe) 25-50ML OF 50% DW IV FOR... UD PRN IV 02/27/17 17:30 03/29/17 17:29 03/02/17 00:01 50 ML Glucagon (Glucagon Inj) 1 mg UD PRN SQ 02/27/17 17:30 03/29/17 17:29 Insulin Aspart (novoLOG ASPART) SLIDING SCALE If CARB RA... ACHS SC 03/01/17 16:00 03/31/17 15:59 03/05/17 17:33 1 UNITS Heparin Sodium (Porcine) (Heparin 10 Unit/ ml 5 ml Flush) 5 ml PRN PRN FLUSH 03/01/17 23:30 03/31/17 23:29 Enteral Nutritional Formula (Boost Glucose Control) 1 can TIDM PO 03/02/17 07:15 04/01/17 07:14 03/05/17 16:54 1 CAN Ceftriaxone Sodium 2000 mg/ Dextrose 70 ml @ 100 mls/hr Q24H IV 03/02/17 14:00 03/16/17 13:59 03/05/17 14:08 100 MLS/HR Miscellaneous Information (Consult Glycemic Management Pharmacy) 1 ea UD PRN N/A 03/02/17 13:15 04/01/17 13:14 Lactobacillus Acidophilus (Floranex Tab) 4 tab TIDM PO 03/03/17 07:15 04/02/17 07:14 03/05/17 16:53 4 TAB Multivitamins (Multivitamin Tab) 1 tab QAM PO 03/03/17 09:00 04/02/17 08:59 03/05/17 14:33 1 TAB Thiamine HCl (Vitamin B-1 Tab) 100 mg QAM PO 03/03/17 09:00 04/02/17 08:59 03/05/17 14:32 100 MG Ipratropium Custer (Atrovent 0.02% 0.5MG/2.5ML Neb) 0.5 mg Q6H PRN INH 03/03/17 09:15 04/02/17 09:14 Levalbuterol (Xopenex 0.63 Mg/ 3 Ml Neb) 0.63 mg Q6H PRN INH 03/03/17 09:15 04/02/17 09:14 Psyllium Hydrophilic Mucilloid (Metamucil Powder) 1 pkt DAILY@1100 PO 03/03/17 11:00 04/02/17 10:59 03/03/17 11:38 1 PKT Metoprolol Tartrate (Lopressor Tab) 25 mg BID PO 03/03/17 21:00 04/02/17 20:59 03/05/17 14:32 25 MG Folic Acid (Folvite Tab) 1 mg QAM PO 03/04/17 09:00 04/03/17 08:59 03/05/17 14:33 1 MG Pantoprazole Sodium (Protonix Tab) 40 mg QAM PO 03/05/17 09:00 04/04/17 08:59 03/05/17 14:33 40 MG Insulin Human NPH (novoLIN-N NPH) 15 units TODAY@0700,1100 DC 03/05/17 07:00 04/04/17 06:59 Insulin Human NPH (novoLIN-N NPH) 30 units DAILY@0800 SC 03/06/17 08:00 04/05/17 07:59 Acetaminophen 650 mg/Empty Bag 65 ml @ 260 mls/hr Q6H PRN IV 03/05/17 11:15 04/04/17 11:14 03/05/17 15:41 260 MLS/HR Gadobutrol (Gadavist) 7.5 mmol UD PRN IV 03/05/17 14:00 03/09/17 13:59 Metoprolol Tartrate (Lopressor Iv) 5 mg Q4H PRN IV 03/05/17 16:00 04/02/17 17:44 Enoxaparin Sodium (Lovenox Inj) 40 mg QAM SQ 03/06/17 09:00 04/05/17 08:59 Cholestyramine Resin (Questran Powder Light) 4 gm BID@10,22 PO 03/05/17 22:00 04/04/17 21:59 UNV Objective Vital Signs Date Time Temp Pulse Resp B/P (MAP) Pulse Ox O2 Delivery O2 Flow Rate FiO2 03/05/17 16:00 94 Room Air 03/05/17 15:58 101 128/72 03/05/17 15:53 101 18 128/72 (90) 95 Room Air 03/05/17 15:50 36.8 141 18 142/72 (95) 92 Room Air 03/05/17 15:06 145 139/79 03/05/17 12:13 36.9 123 16 142/76 (98) 94 Room Air 03/05/17 12:00 94 Room Air 03/05/17 10:52 128 141/80 03/05/17 08:00 96 Room Air 03/05/17 07:21 36.4 105 16 137/72 (93) 96 Room Air 03/05/17 04:50 36.9 98 16 133/72 (92) 95 Room Air 03/05/17 04:00 Room Air 03/05/17 00:10 36.7 93 16 123/66 (85) 97 Room Air 03/05/17 00:00 Room Air 03/04/17 20:55 37.2 03/04/17 20:00 Room Air 03/04/17 19:10 37.4 111 20 133/70 (91) 95 Room Air Physical Exam General Appearance: no apparent distress Eyes: normal inspection Respiratory/Chest: lungs clear, normal breath sounds, no respiratory distress Cardiovascular: regular rate, rhythm Abdomen: normal bowel sounds, non tender, soft Extremities: + swelling, + pertinent finding (R elbow and R hand swelling, R forearm TTP erythematous and warm) Neurologic/Psychiatric: alert, oriented x 3 Laboratory Results 03/05/17 05:05 Red Blood Count 3.61, Mean Corpuscular Volume 91.4, Mean Corpuscular Hemoglobin 29.1, Mean Corpuscular Hemoglobin Concent 31.8, Mean Platelet Volume 9.8, Neutrophils (%) (Auto) 85.1, Lymphocytes (%) (Auto) 8.5, Monocytes (%) (Auto) 4.5, Eosinophils (%) (Auto) 1.0, Basophils (%) (Auto) 0.1, Neutrophils # (Auto) 25.43, Lymphocytes # (Auto) 2.53, Monocytes # (Auto) 1.34, Eosinophils # (Auto) 0.31, Basophils # (Auto) 0.02 03/05/17 05:05 Test 03/05/17 05:05 03/05/17 17:27 White Blood Count 29.86 K/uL (4.8-10.8) Red Blood Count 3.61 M/uL (4.7-6.1) Hemoglobin 10.5 g/dL (14.0-18.0) Hematocrit 33.0 % (42-52) Mean Corpuscular Volume 91.4 fL (80-100) Mean Corpuscular Hemoglobin 29.1 pg (25-34) Mean Corpuscular Hemoglobin Concent 31.8 g/dl (32-36) Platelet Count 654 K/uL (130-400) Mean Platelet Volume 9.8 fL (7.4-10.4) Neutrophils (%) (Auto) 85.1 % Lymphocytes (%) (Auto) 8.5 % Monocytes (%) (Auto) 4.5 % Eosinophils (%) (Auto) 1.0 % Basophils (%) (Auto) 0.1 % Neutrophils # (Auto) 25.43 K/uL (1.4-6.5) Lymphocytes # (Auto) 2.53 K/uL (1.2-3.4) Monocytes # (Auto) 1.34 K/uL (0.11-0.59) Eosinophils # (Auto) 0.31 K/uL (0-0.5) Basophils # (Auto) 0.02 K/uL (0-0.2) RDW Standard Deviation 50.9 fL (36.4-46.3) RDW Coefficient of Variation 15.0 % (11.5-14.5) Immature Granulocyte % (Auto) 0.8 % Immature Granulocyte # (Auto) 0.23 K/uL (0.00-0.02) Toxic Granulation OCCASIONAL Toxic Vacuolation OCCASIONAL Anion Gap 6.0 mmol/L (3-11) Est Creatinine Clear Calc Drug Dose 73.7 ml/min Estimated GFR () 88.6 Estimated GFR (Non- 76.5 BUN/Creatinine Ratio 17.8 (10-20) Calcium Level 7.5 mg/dl (8.5-10.1) Magnesium Level 1.5 mg/dl (1.8-2.4) Total Bilirubin 0.3 mg/dl (0.2-1) Direct Bilirubin 0.1 mg/dl (0-0.2) Aspartate Amino Transf (AST/SGOT) 15 U/L (15-37) Alanine Aminotransferase (ALT/SGPT) 17 U/L (12-78) Alkaline Phosphatase 317 U/L (45-117) Total Protein 6.7 gm/dl (6.4-8.2) Albumin 1.6 gm/dl (3.4-5.0) Globulin 5.1 gm/dl (2.5-4.0) Albumin/Globulin Ratio 0.3 (0.9-2) Prealbumin 5.2 mg/dl (20-40) Bedside Glucose 152 mg/dl (70-99) Assessment and Plan 67 yo male admitted to the ICU with Septic shock 2/2 to urosepsis, post obstructive MACY. Currently with stable anemia post 1 unit pRBC transfusion and continues diarrhea (heme occult + on 03/02). Septic shock Secondary to UTI with underlying obstructive uropathy. Pt had a recent hospitalization UTI/Prostatitis. Pt had 1 positive bcx with Staph Aureus artie positive UCx with MSSA Staph Aureus 2/2 septicemia from source. ID initially treated with empirically with Vancomycin and Zosyn which was later narrowed to Recephin for 2 weeks. Central line was placed but out now. Stopped pressors . WBC uptrended again and continues to be elevated. Repeat blood cultures negative. Oncology consulted by inside sales director team suggested cytosis & leukocytosis reactive to sepsis given normal spleen and lack of L shift. Prostatitis also considered but UCx negative despite minor abnormalities in UA. Per ID recommendation MRI R elbow ordered to r/ot septic arthritis/ osteomyelitis given continued symptoms and elevated WBC which rules out septic arthritis and osteomyelitis and suggested abscess or reactive fluid separate from joint, superficial and proximal to olecranon. -Initial blood and urine cultures positive for Staph Aureus -On Rocephin for 2 weeks per ID (day - 4) -WBC remains elevated 29.86 today -Repeat BCx negative since 03/02 -Prostatitis considered: UA positive but UCx negative -Oncology consulted leukocytosis likelty reactive -MRI R elbow abscess/reactive fluid GI/Diarrhea C.diff negative x 2. Reordered per GI again. GI also ordered WBC smear (neg), shiga toxin, champylobacter and salmonella stool cultures also negative. Possibly antibiotic related, probiotics initiated which might have helped decrease frequency to 3x/day from 6x/day. Per GI, could also be from pancreatic insufficiency given pancreatic atrophy on CT. Alk phos elevation stable but given dilated hepatic duct on CT, and gallstones, MRCP when stable. MRCP scheduled for today. -Given elevated WBC: C-diff toxin reordered x 3 -Stool WBC smear (neg), shiga toxin, champylobacter and salmonella negative -Continue probiotics -Ordered Cholestyramine -MRCP scheduled for today Improving Anemia Present on arrival but considered dilutional. Also had hematuria which resolved during admission. Received 2 units on 02/28 for 7.5 Hgb. Hgb downtrending again on 03/02 to 7.4, transfused with 1 unit pRBCs. GI consult placed for evaluation of GI source of bleeding given +heme occult but did not want to scope him given lack of active bleeding in light of acute illness. H&H improved and stabilized at about 10 post latest transfusion. -heme occult - positive -Coags: INR 1.2 and PT 13.2 -H&H stable 10.5 & 33 -Follow CBC - transfuse if Hgb below 6.5 -Continue PPI R Elbow pain and swelling s/p falling on it at home last - stable Ortho evaluated likely traumatic hematoma/inflammation causing discomfort recommended ice, sling and outpatient follow up. Per ID, given continued WBC elevation MRI ordered which ruled out osteomyelitis and septic arthritis of R elbow and suggested abscess or reactive fluid separate from joint, superficial and proximal to olecranon. Ortho will follow up again tomorrow to evaluate need for possible I&D. -Sling and Ice for comfort -MRI - abscess/reactive fluid -Ortho will re-evaluate tomorrow NSTEMI - EF 44% 2/2 shock. Trops elevated x3. ECHO shows hypokinesis of the left ventricle. Metoprolol 25mg BID initiated for tachycardia -Continue metoprolol 25mg BID -Continue ASA -Started KORI 2.5mg QAM -Started Atorvastatin 40mg -Per Cards stable for angiography in the next day or 2 but patient hesitant MACY 2/2 obstructive uropathy - improved Per urology, repeat renal u/s showing some persistent hydro which is not uncommon in the setting of UR and will take a few weeks with hallman in place to resolve. Compared with previous KUB from December, calcification in the pelvis consistent, not left ureteral stone especially given afebrile. Hallman catheter for 2-4 weeks in the setting of UTI and likely prostatitis. -Baseline Cr 1 -Cr improved to 1 today -Hallman in place for 2-4 weeks -Follow BMP -Schedule for repeat renal u/s prior to TOV at urology follow up in 4 weeks post discharge with Dr. Allan BPH -Continue Flomax (Tamsulosin) per urology note --Bactrim x 4 weeks per urology prior to d/c home for prostatitis (confirm with ID, will likely increase Cr) -Outpatient cystoscopy and TURP Diabetes with DKA and hypoglycemia Pt came in with high sugars likely exacerbated by infection. Anion gap acidosis , elevated beta-hydroxybutyrate, normal lactic acid. PMHX DM2, noncompliant, HbA1c 8.6 (03/02) Now hypoglycemic during the night and hyperglycemic during the day so switched to NPH from Lantus. -NPH 30 units -On NovoLog SC: CF: 25 CHO ratio 1:9 -Goal: 110-140 DVT prophylaxis Lovenox held for concerns of bleeding Heparin initiated by inside sales director given benefits outweigh risks of GI bleed Dispo: To [facility] once stable -Ortho may need to do a surgical wash out which will keep him at least 2-3 days unless don't do it. Will know by tomorrow Resident Involvement: Resident Care Provided Care Provided: Adult Hospital Medicine Reviewed: Pt Seen/Exam by Me History Resident Physician Supervision Note: I interviewed and examined the patient. Discussed with Dr. Cowart and agree with findings and plan as documented in the note. Any exceptions or clarifications are listed here: Patient with some irritability, mild agitation, and intermittent confusion as per RN and during my interview today. He can't explain to me why he is upset, and is having difficulty remembering names of common things. His WBC count is slightly lower from yesterday, but plts climbing again, afebrile. Tachycardic today due to missing metoprolol dose in the AM while NPO. Also with hypoglycemia this AM. Held insulin today. MRI elbow shows fluid collection, possibly abscess. Discussed with Ortho PA and awaiting Ortho Attending to evaluate for need for I&D. Repeat UA abnormal but Ur cx no growth. Diarrhea improving. No other source of infection found other than elbow. Vital signs reviewed agitated, awake, alert, oriented to person, place, and time/date but yells "why does everybody keep asking me that?" when asked these questions Anicteric sclerae, trachea is midline tachycardic rate and regular rhythm , no murmurs gallops rubs Lungs clear to auscultation bilaterally Abdomen soft nontender nondistended positive bowel sounds, Hallman in place draining clear yellow urine Extremities no edema in the lower extremities, 2+ dorsalis pedis pulses bilaterally, right elbow with continued edema and induration entire triceps and with fluctuant area 3 x 3 cm just proximal to the olecranon, erythema and warmth is improved and is now only from distal humerus down to the proximal forearm, range of motion is slightly improved today at 0-45 actively and passively, now right fingers especially middle finger with significant amount of edema and erythema Skin erythema over the elbow and right middle finger as above 67-year-old male here with postobstructive acute kidney injury, severe sepsis from UTI with MSSA UTI and bacteremia, flaccid bladder with prostatitis. Also with anemia, Hemoccult positive stool, and noninfectious diarrhea, as well as persistently elevated leukocytosis and possible right elbow abscess. -Renal function continues to improve, suspect was from sepsis and dehydration, continue to follow renal function and renally dose medications, avoid nephrotoxins -Continue Rocephin daily for MSSA UTI and bacteremia for total of 2 weeks, echo without vegetation on the valves, follow repeat blood cultures and if positive, consider SUSIE if repeat culture positive - leukocytosis is not much improved today and platelets increasing again consistent with worsening inflammation--> C. difficile negative 2 so far, repeat Ur cx no growth, it appears that it's possibly coming from the right elbow- I discussed the case with orthopedics today in case of need for surgical management of the elbow-awaiting Ortho attending to evaluate -anemia improving, no gross bleeding, Appreciate GI consultation, no plans for endoscopy at this time given his critical status unless he developed gross GI bleeding -For elevated alkaline phosphatase and dilated intrahepatic ducts seen on CT, recommend MRCP tomorrow (didn't get done today)--> elevated Alk phos could be from muscle and bony source given right elbow process -For the diarrhea-improving--> could be antibiotic associated-continue probiotics and adding cholestyramine, could be pancreatic atrophy seen on CT with pancreatic insufficiency, check C. diff ag again -For his recent NSTEMI, continue aspirin 81 mg once daily, restarting KORI inhibitor, start atorvastatin, continue metoprolol and consider cardiac catheterization in the near future if pt agreeable -New onset systolic CHF secondary to recent PR-does not appear fluid overloaded , continue medications as above but does not need diuretic at this time -Lovenox SQ for DVT proph--> with Heme+ stool and anemia but no gross bleeding-- > benefit of preventing DVT outweighs risk of occult GI bleeding but will cautiously follow the CBC -Will need rehabilitation when medically stable Documented By: Maryellen Walters
[2017-03-05] MEDS: CHOLESTYRAMINE LIGHT 4 GM PKT PO SCH (20:30)
[2017-03-05] MEDS: SODIUM CHLORIDE 0.45% 1000ML 1,000 ML IV SCH (23:52)
[2017-03-06] VITALS (9 sets, daily range): BP systolic 110–147; BP diastolic 61–82; PULSE 97–122; TEMP 36.5–37.4; O2SAT 93–96
--- NOTE | 2017-03-06 05:28 | GASTROENTEROLOGY PROGRESS NOTE ---
DATE: 03/05/[address] Walters. MRI of the elbow earlier today shows extensive area of soft tissue involvement with loculation. It may in part reflect the recent rise in the patient's white count. The patient is also being treated for MSSA prostatitis. The patient has had diarrhea although duration is unclear. The patient was initially scheduled for MRCP today; however, this was delayed because of contrast and is planned for tomorrow morning on Thursday. This was to address prominence of the biliary system, although the patient's liver tests were normal as of today except for an elevated alkaline phosphatase of 317, which is slightly down from yesterday. MEDICATIONS: His medications were reviewed and include lisinopril, atorvastatin, insulin, Questran, Lopressor, pantoprazole, Rocephin. ALLERGIES: He has no known drug allergies. REVIEW OF SYSTEMS: Otherwise noncontributory based on 13-point exam. PHYSICAL EXAMINATION: VITAL SIGNS: Today reveal blood pressure 128/72, heart rate 101, earlier today he was afebrile at 36.8. GENERAL: The patient is lethargic at this time, although is in no acute distress and is arousable. HEART: Normal S1, S2. LUNGS: Overall clear to auscultation. ABDOMEN: Soft, nontender, nondistended, flat. Good bowel sounds. EXTREMITIES: Without edema. RECTAL: Deferred. LABORATORY STUDIES: Today show white count that is slightly decreased compared with yesterday at 29.8, his hemoglobin is stable at 10.5. He had no bowel movements recorded most of yesterday and patient has had several bowel movements throughout the day today. IMPRESSION AND PLAN: The patient with significant leukocytosis, evidence of methicillin-sensitive Staphylococcus aureus prostatitis along with the elbow that potentially has loculations that may be infectious and possibly a source of the patient's white count. His chest x-ray yesterday revealed some haziness in the lung field and whether this represents pneumonia or atelectasis is unclear. At the present time, given the patient will return medical status, recent IN, I do not think that endoscopic examination or colonoscopy is prudent or would provide much information. Perhaps repeating Clostridium difficile toxin given that he has had antibiotics for several days may be reasonable, although earlier studies were negative. We will await the results of the MRCP tomorrow to exclude any filling defects that could potentially be a source of the patient's white count. We will follow with you. Thank you for allowing me to participate in this patient's care.
[2017-03-06 07:18] LABS: HEMATOCRIT 33.9 % (42-52); MEAN CELL VOLUME 92.1 fL (80-100); MEAN CORPUSCULAR HEMOGLOBIN 28.8 pg (25-34); MEAN CORPUSCULAR HGB CONC 31.3 g/dl (32-36); MEAN PLATELET VOLUME 9.2 fL (7.4-10.4); PLATELET COUNT 636 K/uL (130-400); RED BLOOD COUNT 3.68 M/uL (4.7-6.1); WHITE BLOOD COUNT 29.93 K/uL (4.8-10.8)
[2017-03-06 07:49] LABS: ALT/SGPT 15 U/L (12-78); AST/SGOT 12 U/L (15-37); BLOOD UREA NITROGEN 18 mg/dl (7-18); BUN/CREATININE RATIO 17.9 (10-20); CALCIUM 8.2 mg/dl (8.5-10.1); CARBON DIOXIDE 29 mmol/L (21-32); CHLORIDE 105 mmol/L (98-107); GLUCOSE 176 mg/dl (70-99); MAGNESIUM 1.7 mg/dl (1.8-2.4); SODIUM 140 mmol/L (136-145)
[2017-03-06 07:52] LABS: ALB/GLOB RATIO 0.3 (0.9-2); ALKALINE PHOSPHATASE 298 U/L (45-117)
[2017-03-06] MEDS: BOOST GLUCOSE CONTROL PO SCH ×3 (08:00→17:14)
[2017-03-06] MEDS: LACTOBACILLUS ACIDOPHILUS (FLORANEX) TAB PO SCH ×3 (08:00→17:15)
[2017-03-06 08:09] LABS: ANISOCYTOSIS PRESENT; BASO % 0.1 %; BASO ABS # 0.02 K/uL (0-0.2); COMPLETE YES; DOHLE BODIES 1+; EOS % 0.8 %; HYPERSEGMENTED POLYS 1+; IG% 0.8 %; LYMPH % 9.6 %; LYMPH ABS # 2.87 K/uL (1.2-3.4); MONO % 2.9 %; NEUT % 85.8 %; SPHEROCYTE 1+; TOXIC GRANULATION 2+
[2017-03-06] MEDS: MULTIVITAMIN TAB PO SCH (08:22)
[2017-03-06] MEDS: ASPIRIN 81 MG ECTAB PO SCH (08:24)
[2017-03-06] MEDS: PANTOprazole SOD 40 MG TAB PO SCH (08:24)
[2017-03-06] MEDS: LISINOPRIL 2.5 MG TAB PO SCH (08:24)
[2017-03-06] MEDS: ATORVASTATIN 40 MG TAB PO SCH (08:24)
[2017-03-06] MEDS: CYANOCOBALAMIN 500 MCG TAB (VIT B-12) PO SCH (08:25)
[2017-03-06] MEDS: THIAMINE HCL 100 MG TAB PO SCH (08:25)
[2017-03-06] MEDS: ENOXAPARIN 40 MG/0.4 ML SYR SQ SCH (08:25)
[2017-03-06] MEDS: CHOLECALCIFEROL 1000 INTER.UNIT TAB PO SCH (08:25)
[2017-03-06] MEDS: METOPROLOL TARTRATE 25 MG TAB PO SCH ×2 (08:27→21:11)
[2017-03-06] MEDS: INSULIN ASPART 100 UNITS/ML 3 ML PEN SC SCH ×4 (08:35→21:15)
--- NOTE | 2017-03-06 09:36 | Cardiology Follow-Up ---
Subjective Date of Service: Mar 06, 2017. History of Present Illness This morning the patient expressed some frustration regarding a delay and transferring to [facility]. He has essentially stopped eating in order to avoid recurrent episodes of diarrhea. He has had little physical activity out of bed. He denies any symptoms of chest pain. He states that over the course of the evening he did feel like he had to take some deep breaths at 1 point but the has no breathing difficulty currently. He denies significant pain at the elbow or right hand. He denies any pain in his legs. He is not aware of any palpitations Social History Smoking Status: Former Smoker History of Alcohol Use: Yes (OCC ) Review of Systems Respiratory: No shortness of breath Cardiac: No chest pain Objective Vital Signs Past 12 Hours Date Time Temp Pulse Resp B/P (MAP) Pulse Ox O2 Delivery O2 Flow Rate FiO2 03/06/17 08:00 Room Air 03/06/17 07:45 36.7 97 16 144/72 (96) 93 Room Air 03/06/17 04:57 36.9 112 16 134/78 (96) 94 Room Air 03/06/17 04:00 Room Air 03/06/17 03:01 126 143/80 03/06/17 00:00 Room Air 03/05/17 23:45 36.8 94 16 145/50 (81) 94 Room Air Last Recorded Weight-Kilograms: 75.100 Physical Exam He continues to have some element of confusion and difficulty remembering. He seems to answer questions appropriately. HEENT: Pupils are equal and reactive to light and accommodation. Extraocular movements are intact. The sclerae are anicteric. Neuro: Cranial nerves intact Neck: Patient's neck is supple. He has palpable carotid pulses bilaterally without bruits on auscultation. There is no evidence of jugular venous distention. The thyroid is not enlarged. Lungs: Bibasilar crackles. Cardiac: Heart demonstrates a regular rate and rhythm. Normal S1 and S2. Holosystolic murmur. Pulses: The patient has palpable radial pulses bilaterally that are equal in intensity Extremities: There was no evidence of hypoperfusion. There is no cyanosis or clubbing. There is no edema. He has some mild erythema and swelling involving the right elbow. The right middle digit is also swollen Skin: I did not appreciate any rashes on examination today. Data Laboratory Results: Last 24 Hours Test 03/05/17 13:53 03/05/17 17:27 03/05/17 20:31 03/06/17 07:05 Bedside Glucose 93 mg/dl 152 mg/dl 186 mg/dl White Blood Count 29.93 K/uL Red Blood Count 3.68 M/uL Hemoglobin 10.6 g/dL Hematocrit 33.9 % Mean Corpuscular Volume 92.1 fL Mean Corpuscular Hemoglobin 28.8 pg Mean Corpuscular Hemoglobin Concent 31.3 g/dl Platelet Count 636 K/uL Mean Platelet Volume 9.2 fL Neutrophils (%) (Auto) 85.8 % Lymphocytes (%) (Auto) 9.6 % Monocytes (%) (Auto) 2.9 % Eosinophils (%) (Auto) 0.8 % Basophils (%) (Auto) 0.1 % Neutrophils # (Auto) 25.68 K/uL Lymphocytes # (Auto) 2.87 K/uL Monocytes # (Auto) 0.87 K/uL Eosinophils # (Auto) 0.24 K/uL Basophils # (Auto) 0.02 K/uL RDW Standard Deviation 50.9 fL RDW Coefficient of Variation 14.9 % Immature Granulocyte % (Auto) 0.8 % Immature Granulocyte # (Auto) 0.25 K/uL Hypersegmented Polys 1+ Toxic Granulation 2+ Dohle Bodies 1+ Anisocytosis PRESENT Spherocytes 1+ Sodium Level 140 mmol/L Potassium Level 4.0 mmol/L Chloride Level 105 mmol/L Carbon Dioxide Level 29 mmol/L Anion Gap 6.0 mmol/L Blood Urea Nitrogen 18 mg/dl Creatinine 1.00 mg/dl Est Creatinine Clear Calc Drug Dose 74.1 ml/min Estimated GFR () 88.6 Estimated GFR (Non- 76.5 BUN/Creatinine Ratio 17.9 Random Glucose 176 mg/dl Calcium Level 8.2 mg/dl Magnesium Level 1.7 mg/dl Total Bilirubin 0.3 mg/dl Direct Bilirubin < 0.1 mg/dl Aspartate Amino Transf (AST/SGOT) 12 U/L Alanine Aminotransferase (ALT/SGPT) 15 U/L Alkaline Phosphatase 298 U/L Total Protein 6.6 gm/dl Albumin 1.5 gm/dl Globulin 5.1 gm/dl Albumin/Globulin Ratio 0.3 Test 03/06/17 07:21 Bedside Glucose 174 mg/dl Imaging: MRI suggesting fluid collection in the right elbow Telemetry reviewed: Baseline heart rate hovers around 100 with brief episodes of tachycardia that are consistent with an ectopic atrial tachycardia Assessment and Plan 1. Non ST-elevation myocardial infarction. Patient will be continued on medical therapy. He was advised to undergo coronary angiography based on his presentation and studies but currently refuses. 2. LV systolic failure: Overall appears to be well compensated. He is diuresing without administration of medical therapy. 3. Tachycardia: The patient has both sinus tachycardia and brief periods of what are likely an atrial arrhythmia, possibly and that ectopic atrial tachycardia. No symptoms. I would continue his beta-callie. Patient has been initiated on a good medical regimen for his cardiac disease. Ideally he would agree to coronary angiography in order to reduce recurrent events, but this time he is not agreeable. I had an extensive discussion with the patient regarding this topic over multiple days. This point we will defer any invasive evaluation and continue aggressive medical therapy. She will continue him on the beta-callie, titrate his Dennis inhibitor as tolerated, continue aspirin and consider addition of Plavix if his risk of bleeding is felt to be low from a gastrointestinal standpoint. He has been started on high- dose atorvastatin. He is not appear to require any diuretic therapy for reduced LV function. Over the weekend the service will be covered by the power generation technician molder closed molds (Dr. Herrera). Please contact them if there are additional questions regarding this patient's management during that time frame.
[2017-03-06] MEDS: CHOLESTYRAMINE LIGHT 4 GM PKT PO SCH ×2 (10:00→21:11)
--- NOTE | 2017-03-06 10:04 | Family Medicine Progress Note ---
Progress Note Date of Service Mar 06, 2017. Subjective Pt evaluation today including: conversation w/ patient, physical exam, chart review, lab review Pain: elbow pain PO Intake: NPO for MRCP/possible OR for elbow I&D Voiding: hallman catheter in place This AM. Mr Patel is not sure if he is still having diarrhea as he is not eating anything and not looking at BMs/tracking them. Otherwise having some R elbow/arm discomfort. No sob, cp, STEPHENS/dizzness, abd pn, n/v. Constitutional: No fever Respiratory: No shortness of breath Cardiovascular: No chest pain Abdomen: No nausea, No vomiting Neurologic: No problem reported Medications Current Inpatient Medications Medications (Trade) Dose Ordered Sig/Nilda Route Start Time Stop Time Status Last Admin Dose Admin Acetaminophen (Tylenol Tab) 650 mg Q4H PRN PO 02/27/17 15:30 03/29/17 15:29 03/04/17 19:32 650 MG Al Hydrox/Mg Hydrox/Simethicone (Maalox Max Susp) 15 ml Q4H PRN PO 02/27/17 15:30 03/29/17 15:29 Magnesium Hydroxide (Milk Of Magnesia Susp) 30 ml Q12H PRN PO 02/27/17 15:30 03/29/17 15:29 Ondansetron HCl (Zofran Inj) 4 mg Q6H PRN IV 02/27/17 15:30 03/29/17 15:29 Polyethylene (Miralax Powder Packet) 17 gm DAILY PRN PO 02/27/17 15:30 03/29/17 15:29 Aspirin (Ecotrin Tab) 81 mg DAILY PO 02/28/17 09:00 03/30/17 08:59 Future hold 03/06/17 08:24 81 MG Cholecalciferol (Vitamin D Tab) 1,000 inter.unit DAILY PO 02/28/17 09:00 03/30/17 08:59 03/05/17 14:33 1,000 INTER.UNIT Cyanocobalamin (Vitamin B-12 Tab) 1,000 mcg DAILY PO 02/28/17 09:00 03/30/17 08:59 03/05/17 14:32 1,000 MCG Tamsulosin HCl (Flomax Cap) 0.4 mg DAILY PO 02/28/17 09:00 03/30/17 08:59 Future Hold 03/03/17 09:04 0.4 MG Glucose (Glucose 40% Gel) 15-30 GRAMS 15 GRAMS... UD PRN PO 02/27/17 17:30 03/29/17 17:29 Glucose (Glucose Chew Tab) 4-8 Tablets 4 Tabl... UD PRN PO 02/27/17 17:30 03/29/17 17:29 Dextrose (Dextrose 50% 50ML Syringe) 25-50ML OF 50% DW IV FOR... UD PRN IV 02/27/17 17:30 03/29/17 17:29 03/02/17 00:01 50 ML Glucagon (Glucagon Inj) 1 mg UD PRN SQ 02/27/17 17:30 03/29/17 17:29 Insulin Aspart (novoLOG ASPART) SLIDING SCALE If CARB RA... ACHS SC 03/01/17 16:00 03/31/17 15:59 03/06/17 08:35 2 UNITS Heparin Sodium (Porcine) (Heparin 10 Unit/ ml 5 ml Flush) 5 ml PRN PRN FLUSH 03/01/17 23:30 03/31/17 23:29 Enteral Nutritional Formula (Boost Glucose Control) 1 can TIDM PO 03/02/17 07:15 04/01/17 07:14 03/05/17 16:54 1 CAN Ceftriaxone Sodium 2000 mg/ Dextrose 70 ml @ 100 mls/hr Q24H IV 03/02/17 14:00 03/16/17 13:59 03/05/17 14:08 100 MLS/HR Miscellaneous Information (Consult Glycemic Management Pharmacy) 1 ea UD PRN N/A 03/02/17 13:15 04/01/17 13:14 Lactobacillus Acidophilus (Floranex Tab) 4 tab TIDM PO 03/03/17 07:15 04/02/17 07:14 03/05/17 16:53 4 TAB Multivitamins (Multivitamin Tab) 1 tab QAM PO 03/03/17 09:00 04/02/17 08:59 03/05/17 14:33 1 TAB Thiamine HCl (Vitamin B-1 Tab) 100 mg QAM PO 03/03/17 09:00 04/02/17 08:59 03/05/17 14:32 100 MG Ipratropium [place] (Atrovent 0.02% 0.5MG/2.5ML Neb) 0.5 mg Q6H PRN INH 03/03/17 09:15 04/02/17 09:14 Levalbuterol (Xopenex 0.63 Mg/ 3 Ml Neb) 0.63 mg Q6H PRN INH 03/03/17 09:15 04/02/17 09:14 Psyllium Hydrophilic Mucilloid (Metamucil Powder) 1 pkt DAILY@1100 PO 03/03/17 11:00 04/02/17 10:59 03/03/17 11:38 1 PKT Metoprolol Tartrate (Lopressor Tab) 25 mg BID PO 03/03/17 21:00 04/02/17 20:59 03/06/17 08:27 25 MG Folic Acid (Folvite Tab) 1 mg QAM PO 03/04/17 09:00 04/03/17 08:59 03/05/17 14:33 1 MG Pantoprazole Sodium (Protonix Tab) 40 mg QAM PO 03/05/17 09:00 04/04/17 08:59 03/06/17 08:24 40 MG Insulin Human NPH (novoLIN-N NPH) 30 units DAILY@0800 SC 03/06/17 08:00 04/05/17 07:59 Future Hold Acetaminophen 650 mg/Empty Bag 65 ml @ 260 mls/hr Q6H PRN IV 03/05/17 11:15 04/04/17 11:14 03/05/17 15:41 260 MLS/HR Gadobutrol (Gadavist) 7.5 mmol UD PRN IV 03/05/17 14:00 03/09/17 13:59 Metoprolol Tartrate (Lopressor Iv) 5 mg Q4H PRN IV 03/05/17 16:00 04/02/17 17:44 03/06/17 03:01 5 MG Enoxaparin Sodium (Lovenox Inj) 40 mg QAM SQ 03/06/17 09:00 04/05/17 08:59 03/06/17 08:25 40 MG Cholestyramine Resin (Questran Powder Light) 4 gm BID@10,22 PO 03/05/17 22:00 04/04/17 21:59 03/05/17 20:30 4 GM Lisinopril (Zestril Tab) 2.5 mg QAM PO 03/06/17 09:00 04/05/17 08:59 03/06/17 08:24 2.5 MG Atorvastatin Calcium (Lipitor Tab) 40 mg QAM PO 03/06/17 09:00 04/05/17 08:59 03/06/17 08:24 40 MG Sodium Chloride 1,000 ml @ 75 mls/hr [id number] IV 03/05/17 23:15 04/04/17 23:14 03/05/17 23:52 75 MLS/HR Objective Vital Signs Date Time Temp Pulse Resp B/P (MAP) Pulse Ox O2 Delivery O2 Flow Rate FiO2 03/06/17 08:00 Room Air 03/06/17 07:45 36.7 97 16 144/72 (96) 93 Room Air 03/06/17 04:57 36.9 112 16 134/78 (96) 94 Room Air 03/06/17 04:00 Room Air 03/06/17 03:01 126 143/80 03/06/17 00:00 Room Air 03/05/17 23:45 36.8 94 16 145/50 (81) 94 Room Air 03/05/17 20:00 94 Room Air 03/05/17 19:38 37.0 112 16 136/66 (89) 93 Room Air 03/05/17 16:00 94 Room Air 03/05/17 15:58 101 128/72 03/05/17 15:53 101 18 128/72 (90) 95 Room Air 03/05/17 15:50 36.8 141 18 142/72 (95) 92 Room Air 03/05/17 15:06 145 139/79 03/05/17 12:13 36.9 123 16 142/76 (98) 94 Room Air 03/05/17 12:00 94 Room Air 03/05/17 10:52 128 141/80 Physical Exam General Appearance: no apparent distress Eyes: normal inspection Respiratory/Chest: lungs clear, normal breath sounds, no respiratory distress Cardiovascular: regular rate, rhythm Abdomen: normal bowel sounds, non tender, soft Extremities: no pedal edema, + pertinent finding (R elbow edema, TTP, erythema and warmth but improved from yesterday) Neurologic/Psychiatric: alert, oriented x 3 Laboratory Results 03/06/17 07:05 Red Blood Count 3.68, Mean Corpuscular Volume 92.1, Mean Corpuscular Hemoglobin 28.8, Mean Corpuscular Hemoglobin Concent 31.3, Mean Platelet Volume 9.2, Neutrophils (%) (Auto) 85.8, Lymphocytes (%) (Auto) 9.6, Monocytes (%) (Auto) 2.9, Eosinophils (%) (Auto) 0.8, Basophils (%) (Auto) 0.1, Neutrophils # (Auto) 25.68, Lymphocytes # (Auto) 2.87, Monocytes # (Auto) 0.87, Eosinophils # (Auto) 0.24, Basophils # (Auto) 0.02 03/06/17 07:05 Test 03/06/17 07:05 03/06/17 07:21 White Blood Count 29.93 K/uL (4.8-10.8) Red Blood Count 3.68 M/uL (4.7-6.1) Hemoglobin 10.6 g/dL (14.0-18.0) Hematocrit 33.9 % (42-52) Mean Corpuscular Volume 92.1 fL (80-100) Mean Corpuscular Hemoglobin 28.8 pg (25-34) Mean Corpuscular Hemoglobin Concent 31.3 g/dl (32-36) Platelet Count 636 K/uL (130-400) Mean Platelet Volume 9.2 fL (7.4-10.4) Neutrophils (%) (Auto) 85.8 % Lymphocytes (%) (Auto) 9.6 % Monocytes (%) (Auto) 2.9 % Eosinophils (%) (Auto) 0.8 % Basophils (%) (Auto) 0.1 % Neutrophils # (Auto) 25.68 K/uL (1.4-6.5) Lymphocytes # (Auto) 2.87 K/uL (1.2-3.4) Monocytes # (Auto) 0.87 K/uL (0.11-0.59) Eosinophils # (Auto) 0.24 K/uL (0-0.5) Basophils # (Auto) 0.02 K/uL (0-0.2) RDW Standard Deviation 50.9 fL (36.4-46.3) RDW Coefficient of Variation 14.9 % (11.5-14.5) Immature Granulocyte % (Auto) 0.8 % Immature Granulocyte # (Auto) 0.25 K/uL (0.00-0.02) Hypersegmented Polys 1+ Toxic Granulation 2+ Dohle Bodies 1+ Anisocytosis PRESENT Spherocytes 1+ Anion Gap 6.0 mmol/L (3-11) Est Creatinine Clear Calc Drug Dose 74.1 ml/min Estimated GFR () 88.6 Estimated GFR (Non- 76.5 BUN/Creatinine Ratio 17.9 (10-20) Calcium Level 8.2 mg/dl (8.5-10.1) Magnesium Level 1.7 mg/dl (1.8-2.4) Total Bilirubin 0.3 mg/dl (0.2-1) Direct Bilirubin < 0.1 mg/dl (0-0.2) Aspartate Amino Transf (AST/SGOT) 12 U/L (15-37) Alanine Aminotransferase (ALT/SGPT) 15 U/L (12-78) Alkaline Phosphatase 298 U/L (45-117) Total Protein 6.6 gm/dl (6.4-8.2) Albumin 1.5 gm/dl (3.4-5.0) Globulin 5.1 gm/dl (2.5-4.0) Albumin/Globulin Ratio 0.3 (0.9-2) Bedside Glucose 174 mg/dl (70-99) Assessment and Plan 67 yo male admitted to the ICU with Septic shock 2/2 to urosepsis, post obstructive MACY. Currently with persistently elevated WBC despite negative urine and repeat blood cultures, neg C. diff toxins. Likely from R elbow abscess which was drained by ortho today vs. possible filling defect from dilated hepatic duct contributing to elevated WBC. MRCP scheduled for today. Septic shock Secondary to UTI with underlying obstructive uropathy. Pt had a recent hospitalization UTI/Prostatitis. Pt had 1 positive bcx with Staph Aureus artie positive UCx with MSSA Staph Aureus 2/2 septicemia from source. ID initially treated with empirically with Vancomycin and Zosyn which was later narrowed to Recephin for 2 weeks. Central line was placed but out now. Stopped pressors . WBC uptrended again and continues to be elevated. Repeat blood cultures negative. Oncology consulted by customer care voice consultant team suggested cytosis & leukocytosis reactive to sepsis given normal spleen and lack of L shift. Prostatitis also considered but UCx negative despite minor abnormalities in UA. Per ID recommendation MRI R elbow ordered to r/ot septic arthritis/ osteomyelitis given continued symptoms and elevated WBC which rules out septic arthritis and osteomyelitis and suggested abscess or reactive fluid separate from joint, superficial and proximal to olecranon. I&D by orthopedics on 03/06. Per ID, continue on Rocephin for 6 weeks post I&D with tentative stop date of , obtain a PICC line and check weekly cbc, cmp, and esr while on Rocephin. -Initial blood and urine cultures positive for Staph Aureus -Repeat BCx negative since 03/02 -Prostatitis considered: UA positive but UCx negative -Oncology consulted leukocytosis likelty reactive -WBC 29.93 03/06 - remains elevated -MRI R elbow abscess/reactive fluid -I&D of R elbow abscess w/t 03/26 (with a lot of pus drainage) -Obtain PICC Line -Continue Rocephin for 6 weeks post I&D per ID tentative stop date 04/17 -Check weekly CBC, CMP and ESR while on Rocephin per ID GI/Diarrhea C.diff negative x 2. Reordered per GI again. GI also ordered WBC smear (neg), shiga toxin, champylobacter and salmonella stool cultures also negative. Possibly antibiotic related, probiotics initiated which might have helped decrease frequency to 3x/day from 6x/day. Per GI, could also be from pancreatic insufficiency given pancreatic atrophy on CT. Alk phos elevated and given dilated hepatic duct on CT MRCP scheduled for tomorrow to rule out a possible filling defect as a source of elevated WBC. -Given elevated WBC: C-diff toxin reordered x 3 -Stool WBC smear (neg), shiga toxin, champylobacter and salmonella negative -Continue probiotics -Ordered Cholestyramine -MRCP reschedule for tomorrow Improving Anemia Present on arrival but considered dilutional. Also had hematuria which resolved during admission. Received 2 units on 02/28 for 7.5 Hgb. Hgb downtrending again on 03/02 to 7.4, transfused with 1 unit pRBCs. GI consult placed for evaluation of GI source of bleeding given +heme occult but did not want to scope him given lack of active bleeding in light of acute illness. H&H improved and stabilized at about 10 post latest transfusion. -heme occult - positive -Coags: INR 1.2 and PT 13.2 -H&H stable 10.6 & 33.9 -Follow CBC - transfuse if Hgb below 6.5 -Continue PPI R Elbow pain and swelling s/p falling on it at home last - stable Ortho evaluated likely traumatic hematoma/inflammation causing discomfort recommended ice, sling and outpatient follow up. Per ID, given continued WBC elevation MRI ordered which ruled out osteomyelitis and septic arthritis of R elbow and suggested abscess or reactive fluid separate from joint, superficial and proximal to olecranon. I&D performed by ortho 03/06 with a lot of pus drainage. -MRI - abscess -Ortho I&D 03/06 NSTEMI - EF 44% 2/2 shock. Trops elevated x3. ECHO shows hypokinesis of the left ventricle. Metoprolol 25mg BID initiated for tachycardia -Continue metoprolol 25mg BID and Metorprolol 5mg IV PRN for HR > 120 -Continue ASA -Started KORI 2.5mg QAM -Started Atorvastatin 40mg -Per Cards stable for angiography in the next day or 2 but patient hesitant -Per cards, initiate Plavix when at low risk of bleeding MACY 2/2 obstructive uropathy - improved Per urology, repeat renal u/s showing some persistent hydro which is not uncommon in the setting of UR and will take a few weeks with hallman in place to resolve. Compared with previous KUB from December, calcification in the pelvis consistent, not left ureteral stone especially given afebrile. Hallman catheter for 2-4 weeks in the setting of UTI and likely prostatitis. -Baseline Cr 1 -Cr improved to 1 today -Hallman in place for 2-4 weeks -Follow BMP -Schedule for repeat renal u/s prior to TOV at urology follow up in 4 weeks post discharge with Dr. Allan BPH -Continue Flomax (Tamsulosin) per urology note --Bactrim x 4 weeks per urology prior to d/c home for prostatitis (confirm with ID, will likely increase Cr) -Outpatient cystoscopy and TURP Diabetes with DKA and hypoglycemia Pt came in with high sugars likely exacerbated by infection. Anion gap acidosis , elevated beta-hydroxybutyrate, normal lactic acid. PMHX DM2, noncompliant, HbA1c 8.6 (03/02) Now hypoglycemic during the night and hyperglycemic during the day so switched to NPH from Lantus. -ON: NPO NPH held -03/26 Noon 10 units NPH -30 units NPH QAM -Post I&D and OR steroid administration: BSG check at 0200 ON and will cover with novolog as needed -On NovoLog SC: CF: 25 CHO ratio 1:9 -Goal: 110-140 DVT prophylaxis Lovenox held for concerns of bleeding Heparin initiated by customer care voice consultant given benefits outweigh risks of GI bleed Dispo: To [facility] once stable -Ortho I&D 03/06 will be here at least another 2-3 days Resident Involvement: Resident Care Provided Care Provided: Adult Hospital Medicine Reviewed: Pt Seen/Exam by Me History Resident Physician Supervision Note: I interviewed and examined the patient. Discussed with Dr. Cowart and agree with findings and plan as documented in the note. Any exceptions or clarifications are listed here: Orthopedics drained 1 L of pus from his elbow and triceps today. Patient feeling much improved and is mentally clear today. Vital signs reviewed agitated, awake, alert, oriented to person, place, and time/date Anicteric sclerae, trachea is midline Regular rate and regular rhythm , no murmurs gallops rubs Lungs clear to auscultation bilaterally Abdomen soft nontender nondistended positive bowel sounds, Hallman in place draining clear yellow urine Extremities no edema in the lower extremities, 2+ dorsalis pedis pulses bilaterally, right arm stress in his compression wrap with bandage underneath , right middle finger with erythema and edema but less than yesterday Patient here with postobstructive acute kidney injury, severe sepsis from UTI with MSSA UTI and bacteremia, flaccid bladder with prostatitis. Also with anemia, Hemoccult positive stool, and noninfectious diarrhea now resolved, as well as persistently elevated leukocytosis and large right elbow and triceps abscess. -Appreciate orthopedic surgical drainage of triceps and elbow abscess-this is likely the cause of his persistent leukocytosis and thrombocytosis-this probably was seeded from his previous bacteremia at the site of a hematoma from his fall -Follow elbow wound cultures -Renal function normal and stable -Continue Rocephin daily for MSSA UTI and bacteremia for total of 6 weeks, echo without vegetation on the valves, follow repeat blood cultures and if positive, consider SUSIE if repeat culture positive - leukocytosis is not much improved today and platelets increasing again consistent with worsening inflammation--> C. difficile negative 2 so far, repeat Ur cx no growth, it appears that it's possibly coming from the right elbow- I discussed the case with orthopedics today in case of need for surgical management of the elbow-awaiting Ortho attending to evaluate -anemia improving, no gross bleeding, Appreciate GI consultation, no plans for endoscopy at this time given his critical status unless he developed gross GI bleeding -For elevated alkaline phosphatase and dilated intrahepatic ducts seen on CT, recommend MRCP tomorrow (didn't get done today)--> elevated Alk phos could be from muscle and bony source given right elbow process -For the diarrhea-improving--> could be antibiotic associated-continue probiotics and adding cholestyramine, could be pancreatic atrophy seen on CT with pancreatic insufficiency, check C. diff ag again -For his recent NSTEMI, continue aspirin 81 mg once daily, add Plavix, restarted KORI inhibitor, started atorvastatin, continue metoprolol and consider cardiac catheterization in the near future if pt agreeable -New onset systolic CHF secondary to recent MT-does not appear fluid overloaded , continue medications as above but does not need diuretic at this time -Lovenox SQ for DVT proph--> with Heme+ stool and anemia but no gross bleeding-- > benefit of preventing DVT outweighs risk of occult GI bleeding but will cautiously follow the CBC -Will need rehabilitation when medically stable Documented By: Maryellen Walters
[2017-03-06] MEDS: PSYLLIUM 58.6% PWD PACK S\\F PO SCH (10:34)
[2017-03-06] MEDS ORDERED: INSULIN HUMAN NPH SC ONE (11:00)
[2017-03-06] MEDS ORDERED: MAGNESIUM SULFATE 1GM / D5W 1 GM in PREMIXED IN D5W 100 ML IV SCH (11:15)
[2017-03-06] MEDS: ACETAMINOPHEN IV 650 MG in EMPTY BAG 0 ML IV PRN (11:34)
--- NOTE | 2017-03-06 12:09 | Pharmacy Progress Note ---
Glycemic Control Progress Note Date of Service Mar 06, 2017. Scope Glycemic Pharmacist consulted for glycemic control to write orders per [facility] ED inpatient glycemic control protocol. Objective Accuchecks BSG (last 24hrs): Test 03/05/17 13:53 03/05/17 17:27 03/05/17 20:31 03/06/17 07:05 Bedside Glucose 93 mg/dl (70-99) 152 mg/dl (70-99) 186 mg/dl (70-99) Random Glucose 176 mg/dl (70-99) Test 03/06/17 07:21 Bedside Glucose 174 mg/dl (70-99) HbA1c: Test 03/03/17 04:42 Hemoglobin A1c 8.6 % (4.5-5.6) H Recent Pertinent Medications Outpatient Anti-diabetic Regimen: * history of non-compliance * Lantus 30 units Q HS * Metformin 1000mg PO BID The patient is currently receiving: * Basal insulin: NPH 15 units SQ x 2 ordered yesterday, however both doses were held * Correctional Insulin: Novolog Correction per scale ACHS Goal Range: Low 110 mg/dL - High 140 mg/dL Correction Factor: 25 mg/dL/unit * Prandial insulin: Per carb ratio of 1 unit per 9 grams CHO consumed * Oral Agents: None currently Risk Factors for Insulin Resistance: * Infection: receiving ceftriaxone IV therapy for MSSA bacteremia + MSSA UTI * Diet: patient is again NPO today per nursing documentation; having MRCP +/- elbow I&D Assessment & Plan ASSESSMENT: 03/02/17 * Type 2 diabetic with h/o poor control admitted for sepsis - likely related to obstructive uropathy / prostatitis as well as NSTEMI * BSGs have ranged 45-292 over the last 24 hours * He has received 61 units of SQ insulin while tolerating very little PO * Patient developed severe hypoglycemia last evening, BSG 45, likely secondary to excess basal insulin in the setting of poor PO intake. He did have a total of 50 units of basal insulin yesterday (0.67units/kg/day of basal insulin alone) * Will decrease the basal insulin dose to ~50% of yesterday's total daily insulin requirement. Will base insulin doses on a total daily insulin dose of ~ 60 units/kg/day (or 0.8 units/kg/day) - a severe stress wt-based insulin dose * The current CF and CR are reasonable starting points. Will follow post- prandial BSGs today and adjust if necessary 03/03/17 * BSGs have ranged 71-243 over the last 24 hrs * Fasting BSG 174 this AM w/ 30 units of basal insulin on board - will increase dose again however will not increase back to 50 units daily given recent h/o hypoglycemia on this dose * Post-prandial BSGs were elevated on 2 of 3 checks yesterday, will adjust the CR and CF to allow for larger meal-time doses * Will add BSG check overnight to allow for additional coverage should the increase in Lantus dose not be adequate 03/04/17 * Patient again experienced an episode of hypoglycemia overnight, likely related to excess Lantus on board. This time his BSG dropped to 56 and he had 40 units of Lantus on board. He had previously dropped to 45 on a Lantus dose of 50 units/day. When he was given 30 units / day he remained hyperglycemic. Ideally this patient would likely benefit from twice daily Lantus as it appears the effects may be wearing off in less than 24 hrs as his BSGs trend upward with lunch and dinner then quickly fall. However give his h/o non-compliance, once daily dosing would be preferred. Will lower his Lantus dose again at this time and continue once daily administration - perhaps AM administration would be better? * Will continue the current CF and CR given the new change in Lantus. Will reeval tomorrow. 03/05/17 * Patient again had an episode of hypoglycemia overnight, however this episode with mild and only dipped to 66 - this was despite a lowered dose of Lantus w/ dinner yesterday. I am hesitant to continue Lantus at this time and I believe a more appropriate insulin for him would be NPH given once daily in the AM as he drops precipitously overnight but experiences hyperglycemia during the daylight hours. * Ordered NPH 15 units w/ breakfast + lunch today in order to space out the doses while BSGs running less than 100 this AM, however both doses have been held by RN as he is NPO for procedure today. * I plan to trial NPH 30 units SQ daily w/ breakfast starting tomorrow * Continue the current CF and CR for now and evaluate tomorrow with NPH on board 03/06/17 * Both doses of NPH were held yesterday per hospitalist's orders * Fasting BSG elevated this AM as no basal insulin on board * Patient is again NPO for procedures - will give a modified dose of NPH today as his fasting BSGs continue to rise, cannot give full 30 units as planned * Will continue same CF and CR for time being * Dexamethasone tends to be administered by anesthesia here so will need to be vigilant for this as this will increase insulin resistance and worsen hyperglycemia over next 24+ hrs. * Will add BSG checks overnight given rising fasting BSGs and potential for steroids w/ OR today. PLAN FOR INPATIENT GLYCEMIC CONTROL: * Continue to hold metformin * Begin NPH 30 units SQ once daily w/ breakfast starting tomorrow. NPH 10 units x 1 at noon time today. * Continue correction factor of 25 mg/dl/unit * Continue carb ratio of 1 unit per 9 grams CHO consumed * Continue goal range of Low 110 mg/dL - High 140 mg/dL * Add BSG checks at 0200 tonight and cover w/ above Novolog parameters * Please note that the plan above was derived based on current level of insulin resistance and hospital stress. These recommendations are appropriate for inpatient admission only. Plan of care upon discharge will need to be reassessed to avoid potential outpatient hypo/hyperglycemia. Thank you.
[2017-03-06] MEDS ORDERED: EpHEDrine SULFATE INJ 50 MG/ML AMP IV PRN (12:45)
[2017-03-06] MEDS ORDERED: FENTANYL CITRATE INJ 50 MCG/1 ML 2 ML VIAL IV PRN (12:45)
[2017-03-06] MEDS ORDERED: ATROPINE SULFATE 0.1 MG/ML 5ML SYR IV PRN (12:45)
[2017-03-06] MEDS ORDERED: ONDANSETRON INJ 2 MG/ML 2 ML VIAL IV PRN (12:45)
[2017-03-06] MEDS ORDERED: MIDAZOLAM HCL 1 MG/ML 2ML VIAL ONE (12:49)
[2017-03-06] MEDS ORDERED: FENTANYL CITRATE INJ 50 MCG/1 ML 2 ML VIAL ONE (12:49)
[2017-03-06] MEDS ORDERED: BACITRACIN 50000 UNIT VIAL ONE (12:59)
--- NOTE | 2017-03-06 13:07 | Progress Note ---
Subjective Date of Service: Mar 06, 2017. Subjective Pt evaluation today including: conversation w/ patient, physical exam, chart review, lab review pt seen in followup, s/p MRI elbow - 7x3.4cm rim enhancing collection at triceps tendon no osteo, for I&D today. repeat cultures remain negative, he is tolerating ctx. states rue pain is better today. denies f/c. asking when he will be sent to rehab. no n/v/abd pain. wbc remains elevated, essentially unchanged. All remaining ros reviewed and are negative. Problem List Medical Problems: (1) DKA (diabetic ketoacidoses) Status: Acute (2) Urinary tract infection Status: Acute Objective Vital Signs Date Time Temp Pulse Resp B/P (MAP) Pulse Ox O2 Delivery O2 Flow Rate FiO2 03/06/17 12:32 36.5 122 18 147/82 (103) 95 03/06/17 09:54 36.7 97 16 144/72 93 Room Air 2.0 03/06/17 08:00 Room Air 03/06/17 07:45 36.7 97 16 144/72 (96) 93 Room Air 03/06/17 04:57 36.9 112 16 134/78 (96) 94 Room Air 03/06/17 04:00 Room Air 03/06/17 03:01 126 143/80 03/06/17 00:00 Room Air 03/05/17 23:45 36.8 94 16 145/50 (81) 94 Room Air 03/05/17 20:00 94 Room Air 03/05/17 19:38 37.0 112 16 136/66 (89) 93 Room Air 03/05/17 16:00 94 Room Air 03/05/17 15:58 101 128/72 03/05/17 15:53 101 18 128/72 (90) 95 Room Air 03/05/17 15:50 36.8 141 18 142/72 (95) 92 Room Air 03/05/17 15:06 145 139/79 Physical Exam General Appearance: WD/WN, no apparent distress Eyes: normal inspection, EOMI Neck: supple Respiratory/Chest: lungs clear, normal breath sounds, no respiratory distress Cardiovascular: regular rate, rhythm, no edema Abdomen: non tender, soft Extremities: non-tender, no pedal edema Neurologic/Psychiatric: alert, oriented x 3 Skin: normal color Comments: right elbow still with edema induration. less erythema, less warm Laboratory Results Item Value Date Time Blood Culture - Preliminary Resulted 03/02/17 1012 Blood NO GROWTH TO DATE. Blood Culture - Preliminary Resulted 03/02/17 1009 Blood NO GROWTH TO DATE. Blood Culture - Final Complete 02/27/17 1522 Blood Staphylococcus Aureus Last 24 Hours Test 03/05/17 13:53 03/05/17 17:27 03/05/17 20:31 03/06/17 07:05 Bedside Glucose 93 mg/dl 152 mg/dl 186 mg/dl White Blood Count 29.93 K/uL Red Blood Count 3.68 M/uL Hemoglobin 10.6 g/dL Hematocrit 33.9 % Mean Corpuscular Volume 92.1 fL Mean Corpuscular Hemoglobin 28.8 pg Mean Corpuscular Hemoglobin Concent 31.3 g/dl Platelet Count 636 K/uL Mean Platelet Volume 9.2 fL Neutrophils (%) (Auto) 85.8 % Lymphocytes (%) (Auto) 9.6 % Monocytes (%) (Auto) 2.9 % Eosinophils (%) (Auto) 0.8 % Basophils (%) (Auto) 0.1 % Neutrophils # (Auto) 25.68 K/uL Lymphocytes # (Auto) 2.87 K/uL Monocytes # (Auto) 0.87 K/uL Eosinophils # (Auto) 0.24 K/uL Basophils # (Auto) 0.02 K/uL RDW Standard Deviation 50.9 fL RDW Coefficient of Variation 14.9 % Immature Granulocyte % (Auto) 0.8 % Immature Granulocyte # (Auto) 0.25 K/uL Hypersegmented Polys 1+ Toxic Granulation 2+ Dohle Bodies 1+ Anisocytosis PRESENT Spherocytes 1+ Sodium Level 140 mmol/L Potassium Level 4.0 mmol/L Chloride Level 105 mmol/L Carbon Dioxide Level 29 mmol/L Anion Gap 6.0 mmol/L Blood Urea Nitrogen 18 mg/dl Creatinine 1.00 mg/dl Est Creatinine Clear Calc Drug Dose 74.1 ml/min Estimated GFR () 88.6 Estimated GFR (Non- 76.5 BUN/Creatinine Ratio 17.9 Random Glucose 176 mg/dl Calcium Level 8.2 mg/dl Magnesium Level 1.7 mg/dl Total Bilirubin 0.3 mg/dl Direct Bilirubin < 0.1 mg/dl Aspartate Amino Transf (AST/SGOT) 12 U/L Alanine Aminotransferase (ALT/SGPT) 15 U/L Alkaline Phosphatase 298 U/L Total Protein 6.6 gm/dl Albumin 1.5 gm/dl Globulin 5.1 gm/dl Albumin/Globulin Ratio 0.3 Test 03/06/17 07:21 03/06/17 11:39 Bedside Glucose 174 mg/dl 151 mg/dl Assessment and Plan (1) MSSA (methicillin susceptible Staphylococcus aureus) septicemia Assessment & Plan: repeat cultures negative, will need prolonged course, 6 weeks from I&D, tentative stop date 04/17, will need picc line, repeat cultures negative. will need weekly cbc,cmp, esr while on therapy. follow OR findings. will need ID follow up post d/c. (2) Abscess (3) Leukocytosis
--- NOTE | 2017-03-06 13:27 | Orthopedic Progress Note ---
Orthopedic Progress Note Date of Service Mar 06, 2017. Subjective Denies: chest pain, SOB, nausea / vomiting, light headedness, calf pain Additional Notes: Right elbow pain and swelling extending to proximal and lateral triceps. Waxing and waning pain. No significant improvement. No fever or chills. Objective calves soft nontender, N/V intact, capillary refill less than 2 sec., A&O x3, toes mobile Right elbow/triceps hematoma/abscess. Tender to palpation. Moderate erythema at olecranon bursa. Induration posterior and lateral triceps. Date Time Temp Pulse Resp B/P (MAP) Pulse Ox O2 Delivery O2 Flow Rate FiO2 03/06/17 12:32 36.5 122 18 147/82 (103) 95 03/06/17 09:54 36.7 97 16 144/72 93 Room Air 2.0 03/06/17 08:00 Room Air 03/06/17 07:45 36.7 97 16 144/72 (96) 93 Room Air 03/06/17 04:57 36.9 112 16 134/78 (96) 94 Room Air 03/06/17 04:00 Room Air 03/06/17 03:01 126 143/80 03/06/17 00:00 Room Air 03/05/17 23:45 36.8 94 16 145/50 (81) 94 Room Air 03/05/17 20:00 94 Room Air 03/05/17 19:38 37.0 112 16 136/66 (89) 93 Room Air 03/05/17 16:00 94 Room Air 03/05/17 15:58 101 128/72 03/05/17 15:53 101 18 128/72 (90) 95 Room Air 03/05/17 15:50 36.8 141 18 142/72 (95) 92 Room Air 03/05/17 15:06 145 139/79 Laboratory Results 24 Hours: Test 03/06/17 07:05 White Blood Count 29.93 K/uL Red Blood Count 3.68 M/uL Hemoglobin 10.6 g/dL Hematocrit 33.9 % Mean Corpuscular Volume 92.1 fL Mean Corpuscular Hemoglobin 28.8 pg Mean Corpuscular Hemoglobin Concent 31.3 g/dl Platelet Count 636 K/uL Mean Platelet Volume 9.2 fL Neutrophils (%) (Auto) 85.8 % Lymphocytes (%) (Auto) 9.6 % Monocytes (%) (Auto) 2.9 % Eosinophils (%) (Auto) 0.8 % Basophils (%) (Auto) 0.1 % Neutrophils # (Auto) 25.68 K/uL Lymphocytes # (Auto) 2.87 K/uL Monocytes # (Auto) 0.87 K/uL Eosinophils # (Auto) 0.24 K/uL Basophils # (Auto) 0.02 K/uL Assessment & Plan Assessment: Right Hematoma vs Abscess. Incision and Drainage today NPO Plan: To OR for Incision and Drainage Right elbow/triceps
[2017-03-06] MEDS: CEFTRIAXONE SOD INJ 2,000 MG in DEXTROSE 5% 50ML 50 ML IV SCH (13:45)
[2017-03-06] MEDS ORDERED: ROCURONIUM BROMIDE 10 MG/ML 5 ML VIAL IV ONE (14:01)
[2017-03-06] MEDS ORDERED: PROPOFOL IV EMULSION 10 MG/ML 20 ML VIAL IV ONE (14:01)
[2017-03-06] MEDS ORDERED: PHENYLEPHRINE HCL INJ 10 MG/ML VIAL ONE (14:01)
[2017-03-06] MEDS ORDERED: ONDANSETRON INJ 2 MG/ML 2 ML VIAL ONE (14:01)
[2017-03-06] MEDS ORDERED: SUCCINYLCHOLINE 100MG/5ML SYR IV ONE (14:01)
[2017-03-06] MEDS ORDERED: LIDOCAINE HCL 2% 2 ML VIAL (20MG/ML) ONE (14:01)
[2017-03-06] MEDS ORDERED: BUPIVACAINE 0.5 % 5 MG/1 ML MPF 30ML VIAL ONE (14:01)
--- NOTE | 2017-03-06 14:29 | [facility] Post Operative Brief Note ---
Immediate Operative Summary Operative Date Mar 06, 2017. Pre-Operative Diagnosis Right elbow/triceps hematoma/abscess Post-Operative Diagnosis Right elbow/triceps abscess Procedure(s) Performed 1. Incision and drainage of right elbow/triceps 2. Debridement Triceps Fascia Surgeon Dr. Schroeder Oil Spraying Machine Operator Surgeon(s) none Estimated Blood Loss 3 cc Findings Large abscess; See dict Specimens Micro #1 Right elbow/triceps abscess - gram stain, aerobic/anaerobic, culture and sensitivity Drains HV x 1 Anesthesia GETT w/ local Complication(s) None Disposition Recovery Room / PACU
--- NOTE | 2017-03-06 14:52 | Anesthesiology Progress Note ---
Anesthesia Post Op Note Date & Time Mar 06, 2017 at 14:52 Vital Signs Pain Intensity: 0 Vital Signs Past 12 Hours Date Time Temp Pulse Resp B/P (MAP) Pulse Ox O2 Delivery O2 Flow Rate FiO2 03/06/17 14:45 87 21 121/65 100 Nasal Cannula 2 03/06/17 14:35 85 19 118/60 100 Oxymask 10 03/06/17 14:26 36.0 85 21 117/64 100 Oxymask 10 03/06/17 12:32 36.5 122 18 147/82 (103) 95 03/06/17 12:00 Room Air 03/06/17 09:54 36.7 97 16 144/72 93 Room Air 2.0 03/06/17 08:00 Room Air 03/06/17 07:45 36.7 97 16 144/72 (96) 93 Room Air 03/06/17 04:57 36.9 112 16 134/78 (96) 94 Room Air 03/06/17 04:00 Room Air 03/06/17 03:01 126 143/80 Notes Mental Status: alert / awake / arousable, participated in evaluation Pt Amnestic to Procedure: Yes Nausea / Vomiting: adequately controlled Pain: adequately controlled Airway Patency, RR, SpO2: stable & adequate BP & HR: stable & adequate Hydration State: stable & adequate Anesthetic Complications: no major complications apparent
[2017-03-06] MEDS: SODIUM CHLORIDE 0.45% 1000ML 1,000 ML IV SCH (17:14)
--- NOTE | 2017-03-06 17:43 | PROGRESS NOTE ---
DATE: 03/06/2017 SUBJECTIVE: The patient is being evaluated for abnormal liver tests with an alkaline phosphatase elevation and a possible slight dilation of her common bile duct on CT scan. MRCP was ordered for today but has not completed yet. He has a new abscess in the right elbow area. His diarrhea is being evaluated for C. diff twice, which were negative and the 3rd is pending. Stool for C&S is negative, fecal leukocytes negative and stool Giardia is negative. IMPRESSION: The patient has Staphylococcal aureus bacteremia with an abscess in the right elbow as well. Stool specimen so far is negative. Final third Clostridium difficile is pending. MRCP is pending. Will continue to follow the patient. Dr. Sanabria will be covering this weekend.
--- NOTE | 2017-03-06 22:48 | OPERATIVE REPORT ---
DATE OF OPERATION: 03/06/2017 PREOPERATIVE DIAGNOSIS: Right elbow hematoma versus abscess. POSTOPERATIVE DIAGNOSIS: Right elbow large abscess. PROCEDURE: 1. Incision and drainage right elbow abscess. 2. Debridement of the triceps fascia. SURGEON: Dr. Schroeder. LEGISLATIVE DIRECTOR: None. ANESTHESIA: General endotracheal tube with local. SPECIMENS: Aerobic, anaerobic, Gram stain cultures from the right elbow abscess. DRAINS: Hemovac x1. COMPLICATIONS: None. BLOOD LOSS: 3 mL PERTINENT HISTORY: This is a 67-year-old gentleman who had presented with weakness and falling. He had some lightheadedness and was diagnosed with sepsis with elevated white count of 42,000. The patient was in the hospital for several days and orthopedics was consulted and has been following the patient. Initially, he appeared to perhaps improve; however, over the last 24 hours, elbow appeared to have been perhaps worsened with erythema, redness and then indurated swelling. The patient was then scheduled for incision and drainage of hematoma versus abscess as indicated. All potential risks, benefits, complications, alternatives, rehab, potential for incomplete relief of symptoms, need for further surgery, DVT, PE, , persistent pain, swelling, scarring, weakness, neurovascular injury, wound complications, possible need for further debridement or surgery was discussed with the patient. The patient decided to proceed with the procedure as indicated. PROCEDURE: The patient was taken to the operative suite, placed supine on the table. After reviewing the consent and identification of proper operative site, the patient was anesthetized, endotracheal tube was placed. Tourniquet was applied high on the right upper extremity over a stockinette. The right upper extremity was then sterilely prepped and draped in usual fashion, elevated and tourniquet was inflated to 250 mmHg. There was no exsanguination performed due to presumed possible infection. Next, a 15 blade scalpel was used to make an incision posterolateral aspect of the right upper arm, proximal to the elbow joint. The incision was then deepened through subcutaneous tissue. Meticulous hemostasis was achieved with electrocautery. Full-thickness skin flaps were developed. Next, the abscess fluid pocket was then entered with a 15 blade scalpel and then a significant amount of obviously purulent fluid poured out under pressure, approximately a liter in total was expressed from the posterior arm and then tracking laterally along the forearm fascia. Next, culture was obtained from this fluid, aerobic, anaerobic and Gram stain, it was then passed off the field. All of the abscess fluid was then milked from the abscess pocket. A large curette was then used to curettage the triceps fascia and a rongeur was then used to debride the triceps fascia off any softened, necrotic-appearing fascia. Next, pulsatile lavage with 3 liters of fluid and bacitracin was then used to cleanse the posterior elbow and the lateral aspect of the forearm. Next, a 10-Haitian Hemovac drain was placed after top gloves were changed as well as top sheet. Next, the drain was exited from the posterolateral aspect of the upper arm and the incision was then loosely closed with interrupted 3-0 nylon sutures. Next, the marialuisa-incisional region was then injected with approximately 12 mL of 0.5% Marcaine plain. A sterile compressive dressing was applied, overwrapped with an Dennis wrap. Tourniquet was released. The patient was awakened and taken to recovery in stable condition. I attest to the content of the Intraoperative Record and any orders documented therein. Any exception s are noted below.
[2017-03-07] MEDS ORDERED: INSULIN ASPART 100 UNITS/ML 3 ML PEN SC ONE (02:00)
[2017-03-07] MEDS: SODIUM CHLORIDE 0.45% 1000ML 1,000 ML IV SCH ×2 (02:04→15:28)
[2017-03-07 04:00] VITALS: BP 144/76; PULSE 124; TEMP 36.7; O2SAT 95
[2017-03-07 06:07] LABS: HEMATOCRIT 31.7 % (42-52); MEAN CELL VOLUME 92.2 fL (80-100); MEAN CORPUSCULAR HEMOGLOBIN 29.9 pg (25-34); MEAN CORPUSCULAR HGB CONC 32.5 g/dl (32-36); MEAN PLATELET VOLUME 9.8 fL (7.4-10.4); PLATELET COUNT 659 K/uL (130-400); RED BLOOD COUNT 3.44 M/uL (4.7-6.1); WHITE BLOOD COUNT 28.15 K/uL (4.8-10.8)
[2017-03-07 06:34] LABS: ALT/SGPT 12 U/L (12-78); AST/SGOT 13 U/L (15-37); BLOOD UREA NITROGEN 19 mg/dl (7-18); BUN/CREATININE RATIO 19.5 (10-20); CALCIUM 7.9 mg/dl (8.5-10.1); CARBON DIOXIDE 30 mmol/L (21-32); CHLORIDE 103 mmol/L (98-107); CREATININE 0.99 mg/dl (0.60-1.40); GLUCOSE 174 mg/dl (70-99); MAGNESIUM 1.8 mg/dl (1.8-2.4); POTASSIUM 3.9 mmol/L (3.5-5.1); SODIUM 138 mmol/L (136-145)
[2017-03-07 06:36] LABS: ALB/GLOB RATIO 0.3 (0.9-2); ALKALINE PHOSPHATASE 302 U/L (45-117)
[2017-03-07 06:58] LABS: BASO % 0.1 %; BASO ABS # 0.02 K/uL (0-0.2); COMPLETE YES; EOS % 1.4 %; IG% 0.8 %; LYMPH % 4.7 %; LYMPH ABS # 1.33 K/uL (1.2-3.4); MONO % 9.3 %; NEUT % 83.7 %; STOMATOCYTE 1+; TOXIC GRANULATION 1+
[2017-03-07 07:27] VITALS: BP 133/69; PULSE 93; TEMP 36.8; O2SAT 95
[2017-03-07] MEDS: BOOST GLUCOSE CONTROL PO SCH ×3 (08:00→17:19)
[2017-03-07] MEDS: LACTOBACILLUS ACIDOPHILUS (FLORANEX) TAB PO SCH ×3 (08:00→17:19)
[2017-03-07] MEDS: CYANOCOBALAMIN 500 MCG TAB (VIT B-12) PO SCH (08:13)
[2017-03-07] MEDS: THIAMINE HCL 100 MG TAB PO SCH (08:13)
[2017-03-07] MEDS: MULTIVITAMIN TAB PO SCH (08:13)
[2017-03-07] MEDS: CHOLECALCIFEROL 1000 INTER.UNIT TAB PO SCH (08:14)
[2017-03-07] MEDS: LISINOPRIL 2.5 MG TAB PO SCH (08:38)
[2017-03-07] MEDS: ATORVASTATIN 40 MG TAB PO SCH (08:38)
[2017-03-07] MEDS: ASPIRIN 81 MG ECTAB PO SCH (08:38)
[2017-03-07] MEDS: PANTOprazole SOD 40 MG TAB PO SCH (08:38)
[2017-03-07] MEDS: ENOXAPARIN 40 MG/0.4 ML SYR SQ SCH (08:38)
[2017-03-07] MEDS: CLOPIDOGREL BISULFATE 75 MG TAB PO SCH (08:38)
[2017-03-07] MEDS: METOPROLOL TARTRATE 25 MG TAB PO SCH ×2 (08:38→19:45)
[2017-03-07] MEDS ORDERED: INSULIN HUMAN NPH SC SCH (09:00)
[2017-03-07] MEDS: INSULIN ASPART 100 UNITS/ML 3 ML PEN SC SCH ×3 (09:28→21:00)
--- NOTE | 2017-03-07 09:50 | Orthopedic Progress Note ---
Orthopedic Progress Note Date of Service Mar 07, 2017. Subjective Post OP Day: 1 Reports: feeling well, Denies: chest pain, SOB, nausea / vomiting, light headedness, calf pain Objective calves soft nontender, N/V intact, capillary refill less than 2 sec., dressing C /D/I, A&O x3 MODERATE SWELLING INTO RIGHT HAND. MIDDLE FINGER SWOLLEN, WITH ERYTHEMA. NON TENDER, NO PAIN WITH ROM. Date Time Temp Pulse Resp B/P (MAP) Pulse Ox O2 Delivery O2 Flow Rate FiO2 03/07/17 07:27 36.8 93 16 133/69 (90) 95 Room Air 03/07/17 05:21 Room Air 03/07/17 04:00 36.7 124 20 144/76 (98) 95 Room Air 03/07/17 00:00 Room Air 03/06/17 22:57 37.4 102 18 123/68 (86) 93 Nasal Cannula 2.0 03/06/17 20:00 96 Nasal Cannula 2.0 03/06/17 19:34 37.0 98 18 110/61 (77) 93 Nasal Cannula 2.0 03/06/17 16:00 96 Nasal Cannula 2.0 03/06/17 15:30 36.6 98 18 122/73 (89) 96 Nasal Cannula 2.0 03/06/17 15:05 89 12 131/66 100 Nasal Cannula 2 03/06/17 14:55 36.6 87 16 126/66 100 Nasal Cannula 2 03/06/17 14:45 87 21 121/65 100 Nasal Cannula 2 03/06/17 14:35 85 19 118/60 100 Oxymask 10 03/06/17 14:26 36.0 85 21 117/64 100 Oxymask 10 03/06/17 12:32 36.5 122 18 147/82 (103) 95 03/06/17 12:00 Room Air 03/06/17 09:54 36.7 97 16 144/72 93 Room Air 2.0 Laboratory Results 24 Hours: Test 03/07/17 05:10 White Blood Count 28.15 K/uL Red Blood Count 3.44 M/uL Hemoglobin 10.3 g/dL Hematocrit 31.7 % Mean Corpuscular Volume 92.2 fL Mean Corpuscular Hemoglobin 29.9 pg Mean Corpuscular Hemoglobin Concent 32.5 g/dl Platelet Count 659 K/uL Mean Platelet Volume 9.8 fL Neutrophils (%) (Auto) 83.7 % Lymphocytes (%) (Auto) 4.7 % Monocytes (%) (Auto) 9.3 % Eosinophils (%) (Auto) 1.4 % Basophils (%) (Auto) 0.1 % Neutrophils # (Auto) 23.58 K/uL Lymphocytes # (Auto) 1.33 K/uL Monocytes # (Auto) 2.61 K/uL Eosinophils # (Auto) 0.39 K/uL Basophils # (Auto) 0.02 K/uL Assessment & Plan Assessment: POD#1 SP I&D ELBOW/TRICEPS Plan: CONTINUE IV ABX CULTURES PENDING, WILL FOLLOW MEDICAL MANAGEMENT CHANGE DRESSING THURSDAY
[2017-03-07] MEDS: ACETAMINOPHEN IV 650 MG in EMPTY BAG 0 ML IV PRN ×2 (09:52→17:34)
[2017-03-07] MEDS: CHOLESTYRAMINE LIGHT 4 GM PKT PO SCH ×2 (09:53→19:45)
[2017-03-07] MEDS: PSYLLIUM 58.6% PWD PACK S\\F PO SCH (11:00)
[2017-03-07 11:12] VITALS: BP 113/61; PULSE 86; TEMP 36.4; O2SAT 96
--- NOTE | 2017-03-07 14:09 | DIAGNOSTIC IMAGING REPORT ---
MRCP HISTORY: 67 years-old Male elevated alkaline phosphatase, dilated hepatic ducts acute generalized abdominal pain with diarrhea. Mild prominence of the intrahepatic bile ducts seen on comparison CT 02/28/2017. COMPARISON: CT abdomen and pelvis 02/28/2017 TECHNIQUE: MRCP without contrast was obtained according to institutional protocol. FINDINGS: Mild prominence of the bilateral renal collecting systems and ureters redemonstrated. Moderate amount of nonspecific perinephric edema is again seen. Small to moderate bilateral pleural effusions are noted with bilateral lung base consolidations. There is a trace pericardial effusion. Trace perihepatic ascites is noted with mesenteric edema. Stone filled gallbladder is noted. Common bile duct is normal, 4 mm. No intrahepatic or extrahepatic biliary ductal dilation. The pancreatic duct appears normal. No ductal filling defects or obstructing mass is identified. There is no evidence of pancreatic divisum. IMPRESSION: 1. No intrahepatic or extrahepatic biliary ductal dilation or ductal filling defects. 2. Cholelithiasis. 3. Additional incidental findings as above, better discussed on comparison CT dated 02/28/2017. 4. Small bilateral pleural effusions may have slightly increased in size from comparison. The above report was generated using voice recognition software. It may contain grammatical, syntax or spelling errors. Electronically signed by: Shmuel Garland M.D. 03/07/2017 2:07 PM Dictated Date/Time: 03/07/2017 2:00 PM
--- NOTE | 2017-03-07 14:47 | Gastroenterology Progress Note ---
Progress Note Date of Service: Mar 07, 2017 Subjective Pt evaluation today including: conversation w/ patient, physical exam, chart review, review of studies, review of inpatient medication list CC f/u diarrhea. dilated bile duct HPI Pt states having diarrhea but no reports in nursing notes and nurse states no diarrhea. Is tolerating diet. Review of Systems Respiratory: No shortness of breath Cardiac: No chest pain Medications Current Inpatient Medications Medications (Trade) Dose Ordered Sig/Nilda Route Start Time Stop Time Status Last Admin Dose Admin Acetaminophen (Tylenol Tab) 650 mg Q4H PRN PO 02/27/17 15:30 03/29/17 15:29 03/04/17 19:32 650 MG Al Hydrox/Mg Hydrox/Simethicone (Maalox Max Susp) 15 ml Q4H PRN PO 02/27/17 15:30 03/29/17 15:29 Magnesium Hydroxide (Milk Of Magnesia Susp) 30 ml Q12H PRN PO 02/27/17 15:30 03/29/17 15:29 Ondansetron HCl (Zofran Inj) 4 mg Q6H PRN IV 02/27/17 15:30 03/29/17 15:29 Polyethylene (Miralax Powder Packet) 17 gm DAILY PRN PO 02/27/17 15:30 03/29/17 15:29 Aspirin (Ecotrin Tab) 81 mg DAILY PO 02/28/17 09:00 03/30/17 08:59 Future hold 03/07/17 08:38 81 MG Cholecalciferol (Vitamin D Tab) 1,000 inter.unit DAILY PO 02/28/17 09:00 03/30/17 08:59 03/05/17 14:33 1,000 INTER.UNIT Cyanocobalamin (Vitamin B-12 Tab) 1,000 mcg DAILY PO 02/28/17 09:00 03/30/17 08:59 03/05/17 14:32 1,000 MCG Tamsulosin HCl (Flomax Cap) 0.4 mg DAILY PO 02/28/17 09:00 03/30/17 08:59 Future Hold 03/03/17 09:04 0.4 MG Glucose (Glucose 40% Gel) 15-30 GRAMS 15 GRAMS... UD PRN PO 02/27/17 17:30 03/29/17 17:29 Glucose (Glucose Chew Tab) 4-8 Tablets 4 Tabl... UD PRN PO 02/27/17 17:30 03/29/17 17:29 Dextrose (Dextrose 50% 50ML Syringe) 25-50ML OF 50% DW IV FOR... UD PRN IV 02/27/17 17:30 03/29/17 17:29 03/02/17 00:01 50 ML Glucagon (Glucagon Inj) 1 mg UD PRN SQ 02/27/17 17:30 03/29/17 17:29 Insulin Aspart (novoLOG ASPART) SLIDING SCALE If CARB RA... ACHS SC 03/01/17 16:00 03/31/17 15:59 03/07/17 09:28 3 UNITS Heparin Sodium (Porcine) (Heparin 10 Unit/ ml 5 ml Flush) 5 ml PRN PRN FLUSH 03/01/17 23:30 03/31/17 23:29 Enteral Nutritional Formula (Boost Glucose Control) 1 can TIDM PO 03/02/17 07:15 04/01/17 07:14 03/06/17 17:14 1 CAN Ceftriaxone Sodium 2000 mg/ Dextrose 70 ml @ 100 mls/hr Q24H IV 03/02/17 14:00 03/16/17 13:59 03/06/17 13:45 100 MLS/HR Miscellaneous Information (Consult Glycemic Management Pharmacy) 1 ea UD PRN N/A 03/02/17 13:15 04/01/17 13:14 Lactobacillus Acidophilus (Floranex Tab) 4 tab TIDM PO 03/03/17 07:15 04/02/17 07:14 03/06/17 17:15 4 TAB Multivitamins (Multivitamin Tab) 1 tab QAM PO 03/03/17 09:00 04/02/17 08:59 03/05/17 14:33 1 TAB Thiamine HCl (Vitamin B-1 Tab) 100 mg QAM PO 03/03/17 09:00 04/02/17 08:59 03/05/17 14:32 100 MG Ipratropium [place] (Atrovent 0.02% 0.5MG/2.5ML Neb) 0.5 mg Q6H PRN INH 03/03/17 09:15 04/02/17 09:14 Levalbuterol (Xopenex 0.63 Mg/ 3 Ml Neb) 0.63 mg Q6H PRN INH 03/03/17 09:15 04/02/17 09:14 Psyllium Hydrophilic Mucilloid (Metamucil Powder) 1 pkt DAILY@1100 PO 03/03/17 11:00 04/02/17 10:59 03/03/17 11:38 1 PKT Metoprolol Tartrate (Lopressor Tab) 25 mg BID PO 03/03/17 21:00 04/02/17 20:59 03/07/17 08:38 25 MG Folic Acid (Folvite Tab) 1 mg QAM PO 03/04/17 09:00 04/03/17 08:59 03/05/17 14:33 1 MG Pantoprazole Sodium (Protonix Tab) 40 mg QAM PO 03/05/17 09:00 04/04/17 08:59 03/06/17 08:24 40 MG Insulin Human NPH (novoLIN-N NPH) 30 units DAILY@0800 SC 03/06/17 08:00 04/05/17 07:59 Future hold Acetaminophen 650 mg/Empty Bag 65 ml @ 260 mls/hr Q6H PRN IV 03/05/17 11:15 04/04/17 11:14 03/07/17 09:52 260 MLS/HR Gadobutrol (Gadavist) 7.5 mmol UD PRN IV 03/05/17 14:00 03/09/17 13:59 Metoprolol Tartrate (Lopressor Iv) 5 mg Q4H PRN IV 03/05/17 16:00 04/02/17 17:44 03/06/17 03:01 5 MG Enoxaparin Sodium (Lovenox Inj) 40 mg QAM SQ 03/06/17 09:00 04/05/17 08:59 03/07/17 08:38 40 MG Cholestyramine Resin (Questran Powder Light) 4 gm BID@10,22 PO 03/05/17 22:00 04/04/17 21:59 03/06/17 21:11 4 GM Lisinopril (Zestril Tab) 2.5 mg QAM PO 03/06/17 09:00 04/05/17 08:59 03/07/17 08:38 2.5 MG Atorvastatin Calcium (Lipitor Tab) 40 mg QAM PO 03/06/17 09:00 04/05/17 08:59 03/07/17 08:38 40 MG Sodium Chloride 1,000 ml @ 75 mls/hr [id number] IV 03/05/17 23:15 04/04/17 23:14 03/07/17 02:04 75 MLS/HR Clopidogrel Bisulfate (plAVix TAB) 75 mg QAM PO 03/07/17 09:00 04/06/17 08:59 03/07/17 08:38 75 MG Objective Vital Signs Date Time Temp Pulse Resp B/P (MAP) Pulse Ox O2 Delivery O2 Flow Rate FiO2 03/07/17 11:12 36.4 86 16 113/61 (78) 96 Room Air 03/07/17 08:00 Room Air 03/07/17 07:27 36.8 93 16 133/69 (90) 95 Room Air 03/07/17 05:21 Room Air 03/07/17 04:00 36.7 124 20 144/76 (98) 95 Room Air 03/07/17 00:00 Room Air 03/06/17 22:57 37.4 102 18 123/68 (86) 93 Nasal Cannula 2.0 03/06/17 20:00 96 Nasal Cannula 2.0 03/06/17 19:34 37.0 98 18 110/61 (77) 93 Nasal Cannula 2.0 03/06/17 16:00 96 Nasal Cannula 2.0 03/06/17 15:30 36.6 98 18 122/73 (89) 96 Nasal Cannula 2.0 03/06/17 15:05 89 12 131/66 100 Nasal Cannula 2 03/06/17 14:55 36.6 87 16 126/66 100 Nasal Cannula 2 03/06/17 14:45 87 21 121/65 100 Nasal Cannula 2 Physical Exam General Appearance: WD/WN, no apparent distress Respiratory/Chest: lungs clear, no respiratory distress Cardiovascular: no murmur Abdomen: normal bowel sounds, non tender, soft, no organomegaly Laboratory Results Last 24 Hours Test 03/06/17 16:27 03/06/17 20:16 03/07/17 01:54 03/07/17 05:10 Bedside Glucose 173 mg/dl 216 mg/dl 181 mg/dl White Blood Count 28.15 K/uL Red Blood Count 3.44 M/uL Hemoglobin 10.3 g/dL Hematocrit 31.7 % Mean Corpuscular Volume 92.2 fL Mean Corpuscular Hemoglobin 29.9 pg Mean Corpuscular Hemoglobin Concent 32.5 g/dl Platelet Count 659 K/uL Mean Platelet Volume 9.8 fL Neutrophils (%) (Auto) 83.7 % Lymphocytes (%) (Auto) 4.7 % Monocytes (%) (Auto) 9.3 % Eosinophils (%) (Auto) 1.4 % Basophils (%) (Auto) 0.1 % Neutrophils # (Auto) 23.58 K/uL Lymphocytes # (Auto) 1.33 K/uL Monocytes # (Auto) 2.61 K/uL Eosinophils # (Auto) 0.39 K/uL Basophils # (Auto) 0.02 K/uL RDW Standard Deviation 50.8 fL RDW Coefficient of Variation 15.0 % Immature Granulocyte % (Auto) 0.8 % Immature Granulocyte # (Auto) 0.22 K/uL Toxic Granulation 1+ Stomatocytes 1+ Sodium Level 138 mmol/L Potassium Level 3.9 mmol/L Chloride Level 103 mmol/L Carbon Dioxide Level 30 mmol/L Anion Gap 5.0 mmol/L Blood Urea Nitrogen 19 mg/dl Creatinine 0.99 mg/dl Est Creatinine Clear Calc Drug Dose 74.8 ml/min Estimated GFR () 89.7 Estimated GFR (Non- 77.4 BUN/Creatinine Ratio 19.5 Random Glucose 174 mg/dl Calcium Level 7.9 mg/dl Magnesium Level 1.8 mg/dl Total Bilirubin 0.3 mg/dl Direct Bilirubin < 0.1 mg/dl Aspartate Amino Transf (AST/SGOT) 13 U/L Alanine Aminotransferase (ALT/SGPT) 12 U/L Alkaline Phosphatase 302 U/L Total Protein 6.5 gm/dl Albumin 1.4 gm/dl Globulin 5.1 gm/dl Albumin/Globulin Ratio 0.3 Test 03/07/17 07:24 03/07/17 11:56 03/07/17 14:29 Bedside Glucose 192 mg/dl 156 mg/dl 141 mg/dl Assessment and Plan Heme positive stool--continue PPI in case this is peptic...not good candidate for EGD or colonoscopy given IN so would avoid for now unless has brisk bleeding diarrhea--Cdiff neg times 2, cx neg, Giardia, O/P, WBC neg, pancreas atrophy on CT so could be pancreas insufficiency as well--at this point seems controlled on Questran Anemia--follow H and H, B12 high, folate low, ferritin elevated elevated ferritin repeat when acute illness resolved acute phase reactant and hemochromatosis in the differential Folate deficiency--supplement elevated alk phos--stable dilated intrahepatic ducts on CT A/P--- MRCP gallstones in GB but nl bile duct and PD. other problems per hospitalist: IN, bacteremia, hydronephosis
[2017-03-07 15:23] VITALS: BP 113/63; PULSE 100; TEMP 37.1; O2SAT 95
[2017-03-07] MEDS: CEFTRIAXONE SOD INJ 2,000 MG in DEXTROSE 5% 50ML 50 ML IV SCH (15:28)
--- NOTE | 2017-03-07 15:49 | Family Medicine Progress Note ---
Progress Note Date of Service Mar 07, 2017. Subjective Pt evaluation today including: conversation w/ patient, physical exam, chart review, lab review, review of inpatient medication list Pain: No pain reported PO Intake: Tolerating PO intake Voiding: hallman catheter in place Mr. Patel reports that he feels fine today. He states that he had 2-3 episodes of diarrhea yesterday, but none today. He denies any abdominal cramps, nausea, vomiting, chest pain or SOB. He states that since his I/D, his right elbow is not in any pain, but feels heavy. He was complaining of some lower back pain which he states was from lying in bed all day. Constitutional: No fever, No chills, No sweats, No weight loss Respiratory: No cough, No sputum, No wheezing, No shortness of breath Cardiovascular: No chest pain, No orthopnea, No PND, No edema All Other Systems: Reviewed and Negative Medications Current Inpatient Medications Medications (Trade) Dose Ordered Sig/Nilda Route Start Time Stop Time Status Last Admin Dose Admin Acetaminophen (Tylenol Tab) 650 mg Q4H PRN PO 02/27/17 15:30 03/29/17 15:29 03/04/17 19:32 650 MG Al Hydrox/Mg Hydrox/Simethicone (Maalox Max Susp) 15 ml Q4H PRN PO 02/27/17 15:30 03/29/17 15:29 Magnesium Hydroxide (Milk Of Magnesia Susp) 30 ml Q12H PRN PO 02/27/17 15:30 03/29/17 15:29 Ondansetron HCl (Zofran Inj) 4 mg Q6H PRN IV 02/27/17 15:30 03/29/17 15:29 Polyethylene (Miralax Powder Packet) 17 gm DAILY PRN PO 02/27/17 15:30 03/29/17 15:29 Aspirin (Ecotrin Tab) 81 mg DAILY PO 02/28/17 09:00 03/30/17 08:59 Future hold 03/07/17 08:38 81 MG Cholecalciferol (Vitamin D Tab) 1,000 inter.unit DAILY PO 02/28/17 09:00 03/30/17 08:59 03/05/17 14:33 1,000 INTER.UNIT Cyanocobalamin (Vitamin B-12 Tab) 1,000 mcg DAILY PO 02/28/17 09:00 03/30/17 08:59 03/05/17 14:32 1,000 MCG Tamsulosin HCl (Flomax Cap) 0.4 mg DAILY PO 02/28/17 09:00 03/30/17 08:59 Future Hold 03/03/17 09:04 0.4 MG Glucose (Glucose 40% Gel) 15-30 GRAMS 15 GRAMS... UD PRN PO 02/27/17 17:30 03/29/17 17:29 Glucose (Glucose Chew Tab) 4-8 Tablets 4 Tabl... UD PRN PO 02/27/17 17:30 03/29/17 17:29 Dextrose (Dextrose 50% 50ML Syringe) 25-50ML OF 50% DW IV FOR... UD PRN IV 02/27/17 17:30 03/29/17 17:29 03/02/17 00:01 50 ML Glucagon (Glucagon Inj) 1 mg UD PRN SQ 02/27/17 17:30 03/29/17 17:29 Insulin Aspart (novoLOG ASPART) SLIDING SCALE If CARB RA... ACHS SC 03/01/17 16:00 03/31/17 15:59 03/07/17 09:28 3 UNITS Heparin Sodium (Porcine) (Heparin 10 Unit/ ml 5 ml Flush) 5 ml PRN PRN FLUSH 03/01/17 23:30 03/31/17 23:29 Enteral Nutritional Formula (Boost Glucose Control) 1 can TIDM PO 03/02/17 07:15 04/01/17 07:14 03/06/17 17:14 1 CAN Ceftriaxone Sodium 2000 mg/ Dextrose 70 ml @ 100 mls/hr Q24H IV 03/02/17 14:00 03/16/17 13:59 03/06/17 13:45 100 MLS/HR Miscellaneous Information (Consult Glycemic Management Pharmacy) 1 ea UD PRN N/A 03/02/17 13:15 04/01/17 13:14 Lactobacillus Acidophilus (Floranex Tab) 4 tab TIDM PO 03/03/17 07:15 04/02/17 07:14 03/06/17 17:15 4 TAB Multivitamins (Multivitamin Tab) 1 tab QAM PO 03/03/17 09:00 04/02/17 08:59 03/05/17 14:33 1 TAB Thiamine HCl (Vitamin B-1 Tab) 100 mg QAM PO 03/03/17 09:00 04/02/17 08:59 03/05/17 14:32 100 MG Ipratropium [place] (Atrovent 0.02% 0.5MG/2.5ML Neb) 0.5 mg Q6H PRN INH 03/03/17 09:15 04/02/17 09:14 Levalbuterol (Xopenex 0.63 Mg/ 3 Ml Neb) 0.63 mg Q6H PRN INH 03/03/17 09:15 04/02/17 09:14 Psyllium Hydrophilic Mucilloid (Metamucil Powder) 1 pkt DAILY@1100 PO 03/03/17 11:00 04/02/17 10:59 03/03/17 11:38 1 PKT Metoprolol Tartrate (Lopressor Tab) 25 mg BID PO 03/03/17 21:00 04/02/17 20:59 03/07/17 08:38 25 MG Folic Acid (Folvite Tab) 1 mg QAM PO 03/04/17 09:00 04/03/17 08:59 03/05/17 14:33 1 MG Pantoprazole Sodium (Protonix Tab) 40 mg QAM PO 03/05/17 09:00 04/04/17 08:59 03/06/17 08:24 40 MG Insulin Human NPH (novoLIN-N NPH) 30 units DAILY@0800 SC 03/06/17 08:00 04/05/17 07:59 Future hold Acetaminophen 650 mg/Empty Bag 65 ml @ 260 mls/hr Q6H PRN IV 03/05/17 11:15 04/04/17 11:14 03/07/17 09:52 260 MLS/HR Gadobutrol (Gadavist) 7.5 mmol UD PRN IV 03/05/17 14:00 03/09/17 13:59 Metoprolol Tartrate (Lopressor Iv) 5 mg Q4H PRN IV 03/05/17 16:00 04/02/17 17:44 03/06/17 03:01 5 MG Enoxaparin Sodium (Lovenox Inj) 40 mg QAM SQ 03/06/17 09:00 04/05/17 08:59 03/07/17 08:38 40 MG Cholestyramine Resin (Questran Powder Light) 4 gm BID@10,22 PO 03/05/17 22:00 04/04/17 21:59 03/06/17 21:11 4 GM Lisinopril (Zestril Tab) 2.5 mg QAM PO 03/06/17 09:00 04/05/17 08:59 03/07/17 08:38 2.5 MG Atorvastatin Calcium (Lipitor Tab) 40 mg QAM PO 03/06/17 09:00 04/05/17 08:59 03/07/17 08:38 40 MG Sodium Chloride 1,000 ml @ 75 mls/hr [id number] IV 03/05/17 23:15 04/04/17 23:14 03/07/17 02:04 75 MLS/HR Clopidogrel Bisulfate (plAVix TAB) 75 mg QAM PO 03/07/17 09:00 04/06/17 08:59 03/07/17 08:38 75 MG Objective Vital Signs Date Time Temp Pulse Resp B/P (MAP) Pulse Ox O2 Delivery O2 Flow Rate FiO2 03/07/17 11:12 36.4 86 16 113/61 (78) 96 Room Air 03/07/17 08:00 Room Air 03/07/17 07:27 36.8 93 16 133/69 (90) 95 Room Air 03/07/17 05:21 Room Air 03/07/17 04:00 36.7 124 20 144/76 (98) 95 Room Air 03/07/17 00:00 Room Air 03/06/17 22:57 37.4 102 18 123/68 (86) 93 Nasal Cannula 2.0 03/06/17 20:00 96 Nasal Cannula 2.0 03/06/17 19:34 37.0 98 18 110/61 (77) 93 Nasal Cannula 2.0 03/06/17 16:00 96 Nasal Cannula 2.0 03/06/17 15:30 36.6 98 18 122/73 (89) 96 Nasal Cannula 2.0 Physical Exam General Appearance: WD/WN, no apparent distress Respiratory/Chest: chest non-tender, lungs clear, normal breath sounds, no respiratory distress, no accessory muscle use Cardiovascular: regular rate, rhythm, no edema, no gallop, no JVD, no murmur Abdomen: normal bowel sounds, non tender, soft Extremities: + swelling (mild swelling over right middle finger - full ROM), + pertinent finding (bandages in place over his right elbow - wound vac draining brown fluid) Laboratory Results 03/07/17 05:10 Red Blood Count 3.44, Mean Corpuscular Volume 92.2, Mean Corpuscular Hemoglobin 29.9, Mean Corpuscular Hemoglobin Concent 32.5, Mean Platelet Volume 9.8, Neutrophils (%) (Auto) 83.7, Lymphocytes (%) (Auto) 4.7, Monocytes (%) (Auto) 9.3, Eosinophils (%) (Auto) 1.4, Basophils (%) (Auto) 0.1, Neutrophils # (Auto) 23.58, Lymphocytes # (Auto) 1.33, Monocytes # (Auto) 2.61, Eosinophils # (Auto) 0.39, Basophils # (Auto) 0.02 03/07/17 05:10 Test 03/07/17 05:10 03/07/17 14:29 White Blood Count 28.15 K/uL (4.8-10.8) Red Blood Count 3.44 M/uL (4.7-6.1) Hemoglobin 10.3 g/dL (14.0-18.0) Hematocrit 31.7 % (42-52) Mean Corpuscular Volume 92.2 fL (80-100) Mean Corpuscular Hemoglobin 29.9 pg (25-34) Mean Corpuscular Hemoglobin Concent 32.5 g/dl (32-36) Platelet Count 659 K/uL (130-400) Mean Platelet Volume 9.8 fL (7.4-10.4) Neutrophils (%) (Auto) 83.7 % Lymphocytes (%) (Auto) 4.7 % Monocytes (%) (Auto) 9.3 % Eosinophils (%) (Auto) 1.4 % Basophils (%) (Auto) 0.1 % Neutrophils # (Auto) 23.58 K/uL (1.4-6.5) Lymphocytes # (Auto) 1.33 K/uL (1.2-3.4) Monocytes # (Auto) 2.61 K/uL (0.11-0.59) Eosinophils # (Auto) 0.39 K/uL (0-0.5) Basophils # (Auto) 0.02 K/uL (0-0.2) RDW Standard Deviation 50.8 fL (36.4-46.3) RDW Coefficient of Variation 15.0 % (11.5-14.5) Immature Granulocyte % (Auto) 0.8 % Immature Granulocyte # (Auto) 0.22 K/uL (0.00-0.02) Toxic Granulation 1+ Stomatocytes 1+ Anion Gap 5.0 mmol/L (3-11) Est Creatinine Clear Calc Drug Dose 74.8 ml/min Estimated GFR () 89.7 Estimated GFR (Non- 77.4 BUN/Creatinine Ratio 19.5 (10-20) Calcium Level 7.9 mg/dl (8.5-10.1) Magnesium Level 1.8 mg/dl (1.8-2.4) Total Bilirubin 0.3 mg/dl (0.2-1) Direct Bilirubin < 0.1 mg/dl (0-0.2) Aspartate Amino Transf (AST/SGOT) 13 U/L (15-37) Alanine Aminotransferase (ALT/SGPT) 12 U/L (12-78) Alkaline Phosphatase 302 U/L (45-117) Total Protein 6.5 gm/dl (6.4-8.2) Albumin 1.4 gm/dl (3.4-5.0) Globulin 5.1 gm/dl (2.5-4.0) Albumin/Globulin Ratio 0.3 (0.9-2) Bedside Glucose 141 mg/dl (70-99) Assessment and Plan 67 yo male admitted to the ICU 9 days ago with septic shock secondary to urosepsis, post obstructive MACY. He then developed an abscess in his right elbow , likely seeded by his bacteremia. His hospital course was also complicated by an acute NSTEMI. Septic shock Secondary to UTI with underlying obstructive uropathy due to BPH. ID initially treated with empirically with Vancomycin and Zosyn which was later narrowed to Recephin for 2 weeks. - Initial blood and urine cultures positive for Staph Aureus - Repeat BCx negative since 03/02 - R elbow abscess underwent I&D yesterday, drained ~1L of pus. Gram positive cocci on gram stain, awaiting culture - WBC have been persistently high, today decreased to 28 from 29, will continue to follow, should see a decrease with I&D of abscess - Obtain PICC Line - Continue Rocephin for 6 weeks post I&D per ID - tentative stop date 04/17 - awaiting culture to confirm bacterial sensitivity - Check weekly CBC, CMP and ESR while on Rocephin per ID NSTEMI - EF 44% Secondary to septic shock. Trops elevated x3. ECHO shows hypokinesis of the left ventricle. - Cardiology following - Continue metoprolol 25mg BID and Metoprolol 5mg IV PRN for HR > 120 - Continue ASA, plavix, lisinopril 2.5mg QAM, atorvastatin 40mg - Per Cards stable for angiography but patient does not wish to at this time Diarrhea - C-diff toxin negative, stool culture -ve, stool WBC smear -ve, Campylobacter and salmonella negative - seems to be resolving - down to 1 BM per day instead of 3 - Continue probiotics and cholestyramine Dilated Hepatic Duct on CT - MRCP showed no intrahepatic or extrahepatic biliary ductal dilation or filling defects, but did show the presence of cholelithiasis - no further treatment given asymptomatic at this time - follow alk phos - today was 302 Anemia & Stool occult +ve - 3 units of pRBCs transfused during this hospital visit - last on 03/02 - heme-occult positive - H&H stable 10.3 & 31.7 - Follow CBC - transfuse if Hgb below 6.5 - Cont PPI (40mg pantoprazole daily) as per GI, could be due to PUD - GI recommends holding off EGD, colonoscopy given recent LA unless brisk bleeding is noted MACY secondary to obstructive uropathy - improved. -Creatinine at baseline of 1 -Hallman in place for 2-4 weeks -Schedule for repeat renal u/s prior to TOV at urology follow up in 4 weeks post discharge with Dr. Allan BPH - Restart Flomax - Outpatient cystoscopy and TURP DM2 - HbA1c 8.6 - on insulin sliding scale - has glycemic consult in place DVT prophylaxis - lovenox 40mg SQ Disposition - To [facility] once okayed by ortho Resident Tracking Resident Involvement: Resident Care Provided Care Provided: Adult [facility] Medicine Reviewed: Pt Seen/Exam by Me History Resident Physician Supervision Note: I interviewed and examined the patient. Discussed with Dr. Hairston and agree with findings and plan as documented in the note. Any exceptions or clarifications are listed here: Much improved today, less pain, feeling better, ready to get out of bed Vital signs reviewed agitated, awake, alert, oriented to person, place, and time/date Anicteric sclerae, trachea is midline Regular rate and regular rhythm , no murmurs gallops rubs Lungs clear to auscultation bilaterally Abdomen soft nontender nondistended positive bowel sounds, Hallman in place draining clear yellow urine Extremities no edema in the lower extremities, 2+ dorsalis pedis pulses bilaterally, right arm stress in his compression wrap with bandage underneath , right middle finger with erythema and edema but less than yesterday Patient here with postobstructive acute kidney injury, severe sepsis from UTI with MSSA UTI and bacteremia, flaccid bladder with prostatitis. Also with anemia, Hemoccult positive stool, and noninfectious diarrhea now resolved, as well as persistently elevated leukocytosis and large right elbow and triceps abscess. -Appreciate orthopedic surgical drainage of triceps and elbow abscess-this is likely the cause of his persistent leukocytosis and thrombocytosis-this probably was seeded from his previous bacteremia at the site of a hematoma from his fall -Follow elbow wound cultures but with GPC on gram stain likely MSSA similar to bacteremia and UTI -Renal function normal and stable -Continue Rocephin daily for MSSA UTI and bacteremia for total of 6 weeks, echo without vegetation on the valves, follow repeat blood cultures and if positive, consider SUSIE if repeat culture positive - leukocytosis is starting to improve today and platelets remain increased consistent with inflammation--> likely was from elbow and should improve now s/ p I&D. C. difficile negative 2, repeat Ur cx no growth. -anemia improving, no gross bleeding, Appreciate GI consultation, no plans for endoscopy at this time given his critical status unless he developed gross GI bleeding -For elevated alkaline phosphatase and dilated intrahepatic ducts seen on CT, MRCP with sludge and stones but no dilatation of ducts--> elevated Alk phos could be from muscle and bony source given right elbow process -For the diarrhea-improving--> could be antibiotic associated-continue probiotics and adding cholestyramine, could be pancreatic atrophy seen on CT with pancreatic insufficiency, check C. diff ag again -For his recent NSTEMI, continue aspirin 81 mg once daily, add Plavix, restarted KORI inhibitor, started atorvastatin, continue metoprolol and consider cardiac catheterization in the near future if pt agreeable -New onset systolic CHF secondary to recent LA-does not appear fluid overloaded , continue medications as above but does not need diuretic at this time -Lovenox SQ for DVT proph--> with Heme+ stool and anemia but no gross bleeding-- > benefit of preventing DVT outweighs risk of occult GI bleeding but will cautiously follow the CBC -Will need rehabilitation when medically stable Documented By: Maryellen Walters
[2017-03-07] MEDS ORDERED: INSULIN ASPART 100 UNITS/ML 3 ML PEN SC SCH (16:30)
[2017-03-07 19:40] VITALS: BP 139/79; PULSE 102; TEMP 36.6; O2SAT 97
[2017-03-08 00:02] VITALS: BP 132/76; PULSE 106; TEMP 36.7; O2SAT 94
[2017-03-08] MEDS ORDERED: INSULIN ASPART 100 UNITS/ML 3 ML PEN SC SCH (02:00)
[2017-03-08] MEDS: ACETAMINOPHEN IV 650 MG in EMPTY BAG 0 ML IV PRN ×3 (03:28→20:59)
[2017-03-08 04:00] VITALS: BP 144/79; PULSE 106; TEMP 36.8; O2SAT 93
[2017-03-08 06:10] LABS: HEMATOCRIT 32.4 % (42-52); MEAN CELL VOLUME 93.4 fL (80-100); MEAN CORPUSCULAR HEMOGLOBIN 30.3 pg (25-34); MEAN CORPUSCULAR HGB CONC 32.4 g/dl (32-36); MEAN PLATELET VOLUME 9.2 fL (7.4-10.4); PLATELET COUNT 685 K/uL (130-400); RED BLOOD COUNT 3.47 M/uL (4.7-6.1); WHITE BLOOD COUNT 28.62 K/uL (4.8-10.8)
[2017-03-08 06:46] LABS: BUN/CREATININE RATIO 22.6 (10-20); CALCIUM 8.2 mg/dl (8.5-10.1); CREATININE 0.97 mg/dl (0.60-1.40); POTASSIUM 3.8 mmol/L (3.5-5.1)
[2017-03-08 06:48] LABS: ALB/GLOB RATIO 0.3 (0.9-2)
--- NOTE | 2017-03-08 07:05 | Progress Note ---
Subjective Date of Service: Mar 08, 2017. Subjective s/p I&D elbow, culture with MSSA. repeat blood cultures negative. wbc remains elevated but slightly improved today. no overnight events. tolerating abx. Problem List Medical Problems: (1) DKA (diabetic ketoacidoses) Status: Acute (2) Urinary tract infection Status: Acute Objective Vital Signs Date Time Temp Pulse Resp B/P (MAP) Pulse Ox O2 Delivery O2 Flow Rate FiO2 03/08/17 04:10 Room Air 03/08/17 04:00 36.8 106 18 144/79 (100) 93 Room Air 03/08/17 00:05 Room Air 03/08/17 00:02 36.7 106 20 132/76 (94) 94 Room Air 03/07/17 20:33 Room Air 03/07/17 20:00 Room Air 03/07/17 19:40 36.6 102 18 139/79 (99) 97 Room Air 03/07/17 16:00 Room Air 03/07/17 15:23 37.1 100 18 113/63 (80) 95 Room Air 03/07/17 11:12 36.4 86 16 113/61 (78) 96 Room Air 03/07/17 08:00 Room Air 03/07/17 07:27 36.8 93 16 133/69 (90) 95 Room Air Laboratory Results Item Value Date Time Gram Stain - Final Resulted 03/06/17 1354 Abscess Elbow Blood Culture - Preliminary Resulted 03/02/17 1012 Blood NO GROWTH TO DATE. Blood Culture - Preliminary Resulted 03/02/17 1009 Blood NO GROWTH TO DATE. Blood Culture - Final Complete 02/27/17 1522 Blood Staphylococcus Aureus Last 24 Hours Test 03/07/17 07:24 03/07/17 11:56 03/07/17 14:29 03/07/17 16:19 Bedside Glucose 192 mg/dl 156 mg/dl 141 mg/dl 169 mg/dl Test 03/07/17 20:39 03/08/17 02:01 03/08/17 05:57 Bedside Glucose 145 mg/dl 168 mg/dl White Blood Count 28.62 K/uL Red Blood Count 3.47 M/uL Hemoglobin 10.5 g/dL Hematocrit 32.4 % Mean Corpuscular Volume 93.4 fL Mean Corpuscular Hemoglobin 30.3 pg Mean Corpuscular Hemoglobin Concent 32.4 g/dl RDW Standard Deviation 50.7 fL RDW Coefficient of Variation 14.9 % Platelet Count 685 K/uL Mean Platelet Volume 9.2 fL Sodium Level 141 mmol/L Potassium Level 3.8 mmol/L Chloride Level 104 mmol/L Carbon Dioxide Level 33 mmol/L Anion Gap 4.0 mmol/L Blood Urea Nitrogen 22 mg/dl Creatinine 0.97 mg/dl Est Creatinine Clear Calc Drug Dose 74.9 ml/min Estimated GFR () 91.9 Estimated GFR (Non- 79.3 BUN/Creatinine Ratio 22.6 Random Glucose 163 mg/dl Calcium Level 8.2 mg/dl Total Bilirubin 0.3 mg/dl Aspartate Amino Transf (AST/SGOT) 18 U/L Alanine Aminotransferase (ALT/SGPT) 13 U/L Alkaline Phosphatase 306 U/L Total Protein 6.6 gm/dl Albumin 1.4 gm/dl Globulin 5.2 gm/dl Albumin/Globulin Ratio 0.3 Assessment and Plan (1) MSSA (methicillin susceptible Staphylococcus aureus) septicemia Assessment & Plan: repeat cultures negative, will need prolonged course, 6 weeks from I&D, tentative stop date 04/17, will need picc line, repeat cultures negative. will need weekly cbc,cmp, esr while on therapy. follow OR findings. will need ID follow up post d/c. (2) Abscess (3) Leukocytosis
[2017-03-08 07:43] VITALS: BP 154/85; PULSE 121; TEMP 36.7; O2SAT 96
[2017-03-08] MEDS: BOOST GLUCOSE CONTROL PO SCH ×5 (08:34→20:06)
[2017-03-08] MEDS: METOPROLOL TARTRATE 25 MG TAB PO SCH ×2 (08:35→20:00)
[2017-03-08] MEDS: CLOPIDOGREL BISULFATE 75 MG TAB PO SCH (08:35)
[2017-03-08] MEDS: ATORVASTATIN 40 MG TAB PO SCH (08:35)
[2017-03-08] MEDS: LISINOPRIL 2.5 MG TAB PO SCH (08:35)
[2017-03-08] MEDS: THIAMINE HCL 100 MG TAB PO SCH (08:35)
[2017-03-08] MEDS: CYANOCOBALAMIN 500 MCG TAB (VIT B-12) PO SCH (08:35)
[2017-03-08] MEDS: PANTOprazole SOD 40 MG TAB PO SCH (08:35)
[2017-03-08] MEDS: ASPIRIN 81 MG ECTAB PO SCH (08:36)
[2017-03-08] MEDS: CHOLECALCIFEROL 1000 INTER.UNIT TAB PO SCH (08:36)
[2017-03-08] MEDS: LACTOBACILLUS ACIDOPHILUS (FLORANEX) TAB PO SCH ×3 (08:36→16:28)
[2017-03-08] MEDS: MULTIVITAMIN TAB PO SCH (08:36)
[2017-03-08] MEDS: ENOXAPARIN 40 MG/0.4 ML SYR SQ SCH (08:36)
[2017-03-08] MEDS: INSULIN HUMAN NPH SC SCH ×2 (08:38→08:51)
[2017-03-08] MEDS: INSULIN ASPART 100 UNITS/ML 3 ML PEN SC SCH ×4 (08:39→20:58)
--- NOTE | 2017-03-08 09:27 | Orthopedic Progress Note ---
Orthopedic Progress Note Date of Service Mar 08, 2017. Subjective Post OP Day: 2 Reports: feeling well, Denies: chest pain, SOB, nausea / vomiting, light headedness, calf pain Objective calves soft nontender, N/V intact, capillary refill less than 2 sec., dressing C /D/I, incision C/D/I, A&O x3 MODERATE EDEMA INTO RIGHT HAND AND FINGERS. DRESSING AND DRAIN REMOVED. INCISION CDI WITH MINIMAL ERYTHEMA. SCANT DRAINAGE ON SURGICAL DRESSING. DID HAVE SOME BLOODY DRAINAGE FROM THE HEMOVAC SITE. Date Time Temp Pulse Resp B/P (MAP) Pulse Ox O2 Delivery O2 Flow Rate FiO2 03/08/17 07:43 36.7 121 16 154/85 (108) 96 Room Air 03/08/17 04:10 Room Air 03/08/17 04:00 36.8 106 18 144/79 (100) 93 Room Air 03/08/17 00:05 Room Air 03/08/17 00:02 36.7 106 20 132/76 (94) 94 Room Air 03/07/17 20:33 Room Air 03/07/17 20:00 Room Air 03/07/17 19:40 36.6 102 18 139/79 (99) 97 Room Air 03/07/17 16:00 Room Air 03/07/17 15:23 37.1 100 18 113/63 (80) 95 Room Air 03/07/17 11:12 36.4 86 16 113/61 (78) 96 Room Air Laboratory Results 24 Hours: Test 03/08/17 05:57 Hematocrit 32.4 % Hemoglobin 10.5 g/dL Additional Notes: GRAM STAIN Final 03/07/17-40 RESULT MANY WBCs SEEN MODERATE GRAM POSITIVE COCCI OR AER/CRISS CULT Preliminary 03/08/17-0656 Organism 1 STAPHYLOCOCCUS AUREUS QUANITY FEW SENS SENSITIVITY TO FOLLOW 1. STAPHYLOCOCCUS AUREUS Target Route Dose RX AB Cost M.I.C. IQ ------ ----- ------ -- ------ -------- - ------ TRIMET/SULFA S <=0.5/ 9.5 * OXACILLIN S 0.5 VANCOMYCIN S 2 ERYTHROMYCIN S <=0.5 TETRACYCLINE S <=4 CLINDAMYCIN S <=0.5 DAPTOMYCIN S 1 S = SENSITIVE I = INTERMEDIATE R = RESISTANT Assessment & Plan Assessment: POD#1 SP I&D ELBOW/TRICEPS Plan: CONTINUE IV ABX- ID RECOMMENDING 6 WEEK COURSE, WILL NEED PICC LINE AND LAB MONITORING. CULTURES SHOWING STAPH. MEDICAL MANAGEMENT DRESSING CHANGED TODAY, DRAIN REMOVED. NO NEED FOR IMMEDIATE REPEAT I&D AT THIS POINT.
[2017-03-08] MEDS: PSYLLIUM 58.6% PWD PACK S\\F PO SCH (09:38)
[2017-03-08] MEDS: CHOLESTYRAMINE LIGHT 4 GM PKT PO SCH ×2 (09:38→20:58)
[2017-03-08] MEDS: TAMSULOSIN HCL 0.4 MG CAP PO SCH (09:38)
[2017-03-08 11:26] VITALS: BP 128/69; PULSE 86; TEMP 36.9; O2SAT 97
--- NOTE | 2017-03-08 12:24 | PROGRESS NOTE ---
DATE: 03/08/2017 SUBJECTIVE: The patient is seen at the bedside today. He notes no new complaints. Denies any increase in pain or swelling in the right upper extremity. OBJECTIVE: Right elbow exam shows resolution of abscess. He has no fluctuance. He has no significant erythema. Surgical incision is clean, dry and intact. He has scant drainage from the dressing. Right hand exam does show moderate swelling in the small finger with redness in the region of the proximal phalanx. He has no pain with passive stretch of the digits. He has no pain at all with passive motion of the finger. He has no tenderness at all over his flexor tendon sheath. ASSESSMENT: 1. Postoperative day #2 I&D, large triceps abscess on the right. 2. Right middle finger swelling without pain. PLAN: At this point in time for his triceps abscess, he shows significant clinical improvement. He should not require further surgical treatment. We will continue to follow his right small finger. I am uncertain as to the etiology of the pain and swelling. He has negative Kanavel's signs and clinical exam does not suggest septic flexor tenosynovitis. We will continue to follow to make sure this does improve.
[2017-03-08] MEDS: CEFTRIAXONE SOD INJ 2,000 MG in DEXTROSE 5% 50ML 50 ML IV SCH (14:18)
--- NOTE | 2017-03-08 14:43 | Gastroenterology Progress Note ---
Progress Note Date of Service: Mar 08, 2017 Subjective Pt evaluation today including: conversation w/ patient, physical exam, chart review, lab review, review of studies, review of inpatient medication list cc f/u diarrhea HPI Pt states diarrhea is improving. No abd pain. Is tolerating solid diet. Review of Systems Respiratory: No shortness of breath Cardiac: No chest pain Medications Current Inpatient Medications Medications (Trade) Dose Ordered Sig/Nilda Route Start Time Stop Time Status Last Admin Dose Admin Acetaminophen (Tylenol Tab) 650 mg Q4H PRN PO 02/27/17 15:30 03/29/17 15:29 03/04/17 19:32 650 MG Al Hydrox/Mg Hydrox/Simethicone (Maalox Max Susp) 15 ml Q4H PRN PO 02/27/17 15:30 03/29/17 15:29 Magnesium Hydroxide (Milk Of Magnesia Susp) 30 ml Q12H PRN PO 02/27/17 15:30 03/29/17 15:29 Ondansetron HCl (Zofran Inj) 4 mg Q6H PRN IV 02/27/17 15:30 03/29/17 15:29 Polyethylene (Miralax Powder Packet) 17 gm DAILY PRN PO 02/27/17 15:30 03/29/17 15:29 Aspirin (Ecotrin Tab) 81 mg DAILY PO 02/28/17 09:00 03/30/17 08:59 Future hold 03/08/17 08:36 81 MG Cholecalciferol (Vitamin D Tab) 1,000 inter.unit DAILY PO 02/28/17 09:00 03/30/17 08:59 03/08/17 08:36 1,000 INTER.UNIT Cyanocobalamin (Vitamin B-12 Tab) 1,000 mcg DAILY PO 02/28/17 09:00 03/30/17 08:59 03/08/17 08:35 1,000 MCG Tamsulosin HCl (Flomax Cap) 0.4 mg DAILY PO 02/28/17 09:00 03/30/17 08:59 Future hold 03/08/17 09:38 0.4 MG Glucose (Glucose 40% Gel) 15-30 GRAMS 15 GRAMS... UD PRN PO 02/27/17 17:30 03/29/17 17:29 Glucose (Glucose Chew Tab) 4-8 Tablets 4 Tabl... UD PRN PO 8/25/17 17:30 03/29/17 17:29 Dextrose (Dextrose 50% 50ML Syringe) 25-50ML OF 50% DW IV FOR... UD PRN IV 02/27/17 17:30 03/29/17 17:29 03/02/17 00:01 50 ML Glucagon (Glucagon Inj) 1 mg UD PRN SQ 02/27/17 17:30 03/29/17 17:29 Insulin Aspart (novoLOG ASPART) SLIDING SCALE If CARB RA... ACHS SC 03/01/17 16:00 03/31/17 15:59 Future hold 03/08/17 12:06 9 UNITS Heparin Sodium (Porcine) (Heparin 10 Unit/ ml 5 ml Flush) 5 ml PRN PRN FLUSH 03/01/17 23:30 03/31/17 23:29 Enteral Nutritional Formula (Boost Glucose Control) 1 can TIDM PO 03/02/17 07:15 04/01/17 07:14 03/08/17 11:44 1 CAN Ceftriaxone Sodium 2000 mg/ Dextrose 70 ml @ 100 mls/hr Q24H IV 03/02/17 14:00 03/16/17 13:59 03/08/17 14:18 100 MLS/HR Miscellaneous Information (Consult Glycemic Management Pharmacy) 1 ea UD PRN N/A 03/02/17 13:15 04/01/17 13:14 Lactobacillus Acidophilus (Floranex Tab) 4 tab TIDM PO 03/03/17 07:15 04/02/17 07:14 03/08/17 11:45 4 TAB Multivitamins (Multivitamin Tab) 1 tab QAM PO 03/03/17 09:00 04/02/17 08:59 03/08/17 08:36 1 TAB Thiamine HCl (Vitamin B-1 Tab) 100 mg QAM PO 03/03/17 09:00 04/02/17 08:59 03/08/17 08:35 100 MG Ipratropium [place] (Atrovent 0.02% 0.5MG/2.5ML Neb) 0.5 mg Q6H PRN INH 03/03/17 09:15 04/02/17 09:14 Levalbuterol (Xopenex 0.63 Mg/ 3 Ml Neb) 0.63 mg Q6H PRN INH 03/03/17 09:15 04/02/17 09:14 Psyllium Hydrophilic Mucilloid (Metamucil Powder) 1 pkt DAILY@1100 PO 03/03/17 11:00 04/02/17 10:59 03/08/17 09:38 1 PKT Metoprolol Tartrate (Lopressor Tab) 25 mg BID PO 03/03/17 21:00 04/02/17 20:59 03/08/17 08:35 25 MG Folic Acid (Folvite Tab) 1 mg QAM PO 03/04/17 09:00 04/03/17 08:59 03/08/17 08:36 1 MG Pantoprazole Sodium (Protonix Tab) 40 mg QAM PO 03/05/17 09:00 04/04/17 08:59 03/08/17 08:35 40 MG Insulin Human NPH (novoLIN-N NPH) 30 units DAILY@0800 SC 03/06/17 08:00 04/05/17 07:59 Future hold 03/08/17 08:51 30 UNITS Acetaminophen 650 mg/Empty Bag 65 ml @ 260 mls/hr Q6H PRN IV 03/05/17 11:15 04/04/17 11:14 03/08/17 03:28 260 MLS/HR Gadobutrol (Gadavist) 7.5 mmol UD PRN IV 03/05/17 14:00 03/09/17 13:59 Metoprolol Tartrate (Lopressor Iv) 5 mg Q4H PRN IV 03/05/17 16:00 04/02/17 17:44 03/06/17 03:01 5 MG Enoxaparin Sodium (Lovenox Inj) 40 mg QAM SQ 03/06/17 09:00 04/05/17 08:59 03/08/17 08:36 40 MG Cholestyramine Resin (Questran Powder Light) 4 gm BID@10,22 PO 03/05/17 22:00 04/04/17 21:59 03/08/17 09:38 4 GM Lisinopril (Zestril Tab) 2.5 mg QAM PO 03/06/17 09:00 04/05/17 08:59 03/08/17 08:35 2.5 MG Atorvastatin Calcium (Lipitor Tab) 40 mg QAM PO 03/06/17 09:00 04/05/17 08:59 03/08/17 08:35 40 MG Clopidogrel Bisulfate (plAVix TAB) 75 mg QAM PO 03/07/17 09:00 04/06/17 08:59 03/08/17 08:35 75 MG Objective Vital Signs Date Time Temp Pulse Resp B/P (MAP) Pulse Ox O2 Delivery O2 Flow Rate FiO2 03/08/17 12:30 Room Air 03/08/17 11:26 36.9 86 16 128/69 (88) 97 Room Air 03/08/17 08:30 Room Air 03/08/17 07:43 36.7 121 16 154/85 (108) 96 Room Air 03/08/17 04:10 Room Air 03/08/17 04:00 36.8 106 18 144/79 (100) 93 Room Air 03/08/17 00:05 Room Air 03/08/17 00:02 36.7 106 20 132/76 (94) 94 Room Air 03/07/17 20:33 Room Air 03/07/17 20:00 Room Air 03/07/17 19:40 36.6 102 18 139/79 (99) 97 Room Air 03/07/17 16:00 Room Air 03/07/17 15:23 37.1 100 18 113/63 (80) 95 Room Air Physical Exam General Appearance: WD/WN, no apparent distress Respiratory/Chest: lungs clear, no respiratory distress Cardiovascular: no murmur Abdomen: normal bowel sounds, non tender, soft, no organomegaly Neurologic/Psych: normal mood/affect, oriented x 3 Laboratory Results Last 24 Hours Test 03/07/17 16:19 03/07/17 20:39 03/08/17 02:01 03/08/17 05:57 Bedside Glucose 169 mg/dl 145 mg/dl 168 mg/dl White Blood Count 28.62 K/uL Red Blood Count 3.47 M/uL Hemoglobin 10.5 g/dL Hematocrit 32.4 % Mean Corpuscular Volume 93.4 fL Mean Corpuscular Hemoglobin 30.3 pg Mean Corpuscular Hemoglobin Concent 32.4 g/dl RDW Standard Deviation 50.7 fL RDW Coefficient of Variation 14.9 % Platelet Count 685 K/uL Mean Platelet Volume 9.2 fL Sodium Level 141 mmol/L Potassium Level 3.8 mmol/L Chloride Level 104 mmol/L Carbon Dioxide Level 33 mmol/L Anion Gap 4.0 mmol/L Blood Urea Nitrogen 22 mg/dl Creatinine 0.97 mg/dl Est Creatinine Clear Calc Drug Dose 74.9 ml/min Estimated GFR () 91.9 Estimated GFR (Non- 79.3 BUN/Creatinine Ratio 22.6 Random Glucose 163 mg/dl Calcium Level 8.2 mg/dl Total Bilirubin 0.3 mg/dl Aspartate Amino Transf (AST/SGOT) 18 U/L Alanine Aminotransferase (ALT/SGPT) 13 U/L Alkaline Phosphatase 306 U/L Total Protein 6.6 gm/dl Albumin 1.4 gm/dl Globulin 5.2 gm/dl Albumin/Globulin Ratio 0.3 Test 03/08/17 07:13 03/08/17 11:41 Bedside Glucose 146 mg/dl 201 mg/dl Assessment and Plan Heme positive stool--continue PPI in case this is peptic...not good candidate for EGD or colonoscopy given NV so would avoid for now unless has brisk bleeding diarrhea--Cdiff neg times 2, cx neg, Giardia neg , O/P, WBC neg, pancreas atrophy on CT so could be pancreas insufficiency as well--at this point seems controlled on Questran Anemia--follow H and H, B12 high, folate low, ferritin elevated elevated ferritin repeat when acute illness resolved acute phase reactant and hemochromatosis in the differential Folate deficiency--supplement elevated alk phos--slight trend upward dilated intrahepatic ducts on CT A/P--- MRCP gallstones in GB but nl bile duct and PD. other problems per hospitalist: NV, bacteremia, hydronephosis
--- NOTE | 2017-03-08 15:35 | Pharmacy Progress Note ---
Glycemic Control Progress Note Date of Service Mar 08, 2017. Scope Glycemic Pharmacist consulted for glycemic control to write orders per [facility] inpatient glycemic control protocol. Objective Accuchecks BSG (last 24hrs): Test 03/07/17 16:19 03/07/17 20:39 03/08/17 02:01 03/08/17 05:57 Bedside Glucose 169 mg/dl (70-99) 145 mg/dl (70-99) 168 mg/dl (70-99) Random Glucose 163 mg/dl (70-99) Test 03/08/17 07:13 03/08/17 11:41 Bedside Glucose 146 mg/dl (70-99) 201 mg/dl (70-99) HbA1c: Test 03/03/17 04:42 Hemoglobin A1c 8.6 % (4.5-5.6) H Recent Pertinent Medications The patient is currently receiving: * Basal insulin: NPH 30 units every 24 hours partial dose of 10 units on 03/06 & 15 units on 03/07 d/t NPO for procedure * Correctional Insulin: Novolog Correction per scale ACHS Goal Range: Low 110 mg/dL - High 140 mg/dL Correction Factor: 25 mg/dL/unit * Prandial insulin: Per carb ratio of 1 unit per 9 grams CHO consumed Outpatient Anti-Diabetic Meds history of non-compliance * Lantus 30 units Q HS * Metformin 1000mg PO BID Assessment & Plan ASSESSMENT: * See progress note from 03/06/17 for more background info, in short: * Pt receiving SQ basal bolus insulin regimen for hyperglycemia secondary to baseline DM (outpatient regimen on hold) & stress/infection * Pt changed from Lantus to NPH on 03/05 due to persistent overnight hypoglycemia. Once daily dosing preferred due to non compliance at home. * Patient had been receiving ~55 units of insulin per day. He received significantly less the past 48 hours due to held/partial doses for NPO status for elbow I&D and MRCP. * BSGs ranging 141 - 192 mg/dl over the past 24hrs * Changes needed to insulin regimen: * AM Fasting BSG = 146 mg/dl. This is in slightly above goal range for patient based on inpatient targets and co-morbidities and is likely due to partial doses on 03/06 and 03/07. I have resumed NPH 30 units daily. * Post-prandial BSGs are slightly elevated and rise throughout the day therefore need to tighten CF/CR PLAN FOR INPATIENT GLYCEMIC CONTROL: * Continue to hold metformin * NPH 30 units SQ once daily w/ breakfast . * Tighten correction factor to 20 mg/dl/unit * Tighten carb ratio to 1 unit per 8 grams CHO consumed * Continue goal range of Low 110 mg/dL - High 140 mg/dL RECOMMENDATIONS FOR DISCHARGE: * May consider resuming home regimen of Lantus 30 units SQ HS + metformin 500 mg PO BID on discharge as long as he is not experiencing hypoglycemic episodes. Titrate per outpatient provider. * Please note that the plan above was derived based on current level of insulin resistance and hospital stress. These recommendations are appropriate for inpatient admission only. Plan of care upon discharge will need to be reassessed to avoid potential outpatient hypo/hyperglycemia. Thank you.
[2017-03-08 15:45] VITALS: BP 138/75; PULSE 96; TEMP 36.8; O2SAT 96
--- NOTE | 2017-03-08 16:49 | DIAGNOSTIC IMAGING REPORT ---
CHEST ONE VIEW PORTABLE HISTORY: LEFT UPPER ARM PICC PLACEMENT (VPS NOT WORKING) COMPARISON: Chest 03/04/2017. FINDINGS: No pneumothorax. A left PICC terminates in the SVC. The heart is normal in size. Trace bilateral pleural effusions. Hazy density within the right medial lung base persist. IMPRESSION: 1. The left PICC terminates in the SVC. 2. Trace bilateral pleural effusions and a right basilar hazy density persists Electronically signed by: Wale Cronin M.D. 03/08/2017 4:48 PM Dictated Date/Time: 03/08/2017 4:47 PM
--- NOTE | 2017-03-08 17:00 | Family Medicine Progress Note ---
Progress Note Date of Service Mar 08, 2017. Subjective Pt evaluation today including: conversation w/ patient, physical exam, chart review, lab review, review of inpatient medication list Pain: No pain reported PO Intake: Tolerating PO intake Voiding: hallman catheter in place Mr. Patel reports he feels well today. His diarrhea has improved, and he does not consider it to be an issue now. Tolerating PO intake. Denies chest pain, SOB , abdo pain, leg swelling. He states that his right arm feels heavy but that he is not in any pain. He feels the swelling in his right arm has decreased. Constitutional: No fever, No chills, No sweats Respiratory: No cough, No sputum, No wheezing, No shortness of breath Cardiovascular: No chest pain, No edema Abdomen: No pain, No nausea, No vomiting, No diarrhea, No constipation Musculoskeletal: No joint pain, No muscle pain All Other Systems: Reviewed and Negative Medications Current Inpatient Medications Medications (Trade) Dose Ordered Sig/Nilda Route Start Time Stop Time Status Last Admin Dose Admin Acetaminophen (Tylenol Tab) 650 mg Q4H PRN PO 02/27/17 15:30 03/29/17 15:29 03/04/17 19:32 650 MG Al Hydrox/Mg Hydrox/Simethicone (Maalox Max Susp) 15 ml Q4H PRN PO 02/27/17 15:30 03/29/17 15:29 Magnesium Hydroxide (Milk Of Magnesia Susp) 30 ml Q12H PRN PO 02/27/17 15:30 03/29/17 15:29 Ondansetron HCl (Zofran Inj) 4 mg Q6H PRN IV 02/27/17 15:30 03/29/17 15:29 Polyethylene (Miralax Powder Packet) 17 gm DAILY PRN PO 02/27/17 15:30 03/29/17 15:29 Aspirin (Ecotrin Tab) 81 mg DAILY PO 02/28/17 09:00 03/30/17 08:59 Future hold 03/08/17 08:36 81 MG Cholecalciferol (Vitamin D Tab) 1,000 inter.unit DAILY PO 02/28/17 09:00 03/30/17 08:59 03/08/17 08:36 1,000 INTER.UNIT Cyanocobalamin (Vitamin B-12 Tab) 1,000 mcg DAILY PO 02/28/17 09:00 03/30/17 08:59 03/08/17 08:35 1,000 MCG Tamsulosin HCl (Flomax Cap) 0.4 mg DAILY PO 02/28/17 09:00 03/30/17 08:59 Future hold 03/08/17 09:38 0.4 MG Glucose (Glucose 40% Gel) 15-30 GRAMS 15 GRAMS... UD PRN PO 02/27/17 17:30 03/29/17 17:29 Glucose (Glucose Chew Tab) 4-8 Tablets 4 Tabl... UD PRN PO 02/27/17 17:30 03/29/17 17:29 Dextrose (Dextrose 50% 50ML Syringe) 25-50ML OF 50% DW IV FOR... UD PRN IV 02/27/17 17:30 03/29/17 17:29 03/02/17 00:01 50 ML Glucagon (Glucagon Inj) 1 mg UD PRN SQ 02/27/17 17:30 03/29/17 17:29 Insulin Aspart (novoLOG ASPART) SLIDING SCALE If CARB RA... ACHS SC 03/01/17 16:00 03/31/17 15:59 Future hold 03/08/17 12:06 9 UNITS Heparin Sodium (Porcine) (Heparin 10 Unit/ ml 5 ml Flush) 5 ml PRN PRN FLUSH 03/01/17 23:30 03/31/17 23:29 Enteral Nutritional Formula (Boost Glucose Control) 1 can TIDM PO 03/02/17 07:15 04/01/17 07:14 03/08/17 16:26 1 CAN Ceftriaxone Sodium 2000 mg/ Dextrose 70 ml @ 100 mls/hr Q24H IV 03/02/17 14:00 03/16/17 13:59 03/08/17 14:18 100 MLS/HR Miscellaneous Information (Consult Glycemic Management Pharmacy) 1 ea UD PRN N/A 03/02/17 13:15 04/01/17 13:14 Lactobacillus Acidophilus (Floranex Tab) 4 tab TIDM PO 03/03/17 07:15 04/02/17 07:14 03/08/17 16:28 4 TAB Multivitamins (Multivitamin Tab) 1 tab QAM PO 03/03/17 09:00 04/02/17 08:59 03/08/17 08:36 1 TAB Thiamine HCl (Vitamin B-1 Tab) 100 mg QAM PO 03/03/17 09:00 04/02/17 08:59 03/08/17 08:35 100 MG Ipratropium [place] (Atrovent 0.02% 0.5MG/2.5ML Neb) 0.5 mg Q6H PRN INH 03/03/17 09:15 04/02/17 09:14 Levalbuterol (Xopenex 0.63 Mg/ 3 Ml Neb) 0.63 mg Q6H PRN INH 03/03/17 09:15 04/02/17 09:14 Psyllium Hydrophilic Mucilloid (Metamucil Powder) 1 pkt DAILY@1100 PO 03/03/17 11:00 04/02/17 10:59 03/08/17 09:38 1 PKT Metoprolol Tartrate (Lopressor Tab) 25 mg BID PO 03/03/17 21:00 04/02/17 20:59 03/08/17 08:35 25 MG Folic Acid (Folvite Tab) 1 mg QAM PO 03/04/17 09:00 04/03/17 08:59 03/08/17 08:36 1 MG Pantoprazole Sodium (Protonix Tab) 40 mg QAM PO 03/05/17 09:00 04/04/17 08:59 03/08/17 08:35 40 MG Insulin Human NPH (novoLIN-N NPH) 30 units DAILY@0800 SC 03/06/17 08:00 04/05/17 07:59 Future hold 03/08/17 08:51 30 UNITS Acetaminophen 650 mg/Empty Bag 65 ml @ 260 mls/hr Q6H PRN IV 03/05/17 11:15 04/04/17 11:14 03/08/17 15:29 260 MLS/HR Gadobutrol (Gadavist) 7.5 mmol UD PRN IV 03/05/17 14:00 03/09/17 13:59 Metoprolol Tartrate (Lopressor Iv) 5 mg Q4H PRN IV 03/05/17 16:00 04/02/17 17:44 03/06/17 03:01 5 MG Enoxaparin Sodium (Lovenox Inj) 40 mg QAM SQ 03/06/17 09:00 04/05/17 08:59 03/08/17 08:36 40 MG Cholestyramine Resin (Questran Powder Light) 4 gm BID@10,22 PO 03/05/17 22:00 04/04/17 21:59 03/08/17 09:38 4 GM Lisinopril (Zestril Tab) 2.5 mg QAM PO 03/06/17 09:00 04/05/17 08:59 03/08/17 08:35 2.5 MG Atorvastatin Calcium (Lipitor Tab) 40 mg QAM PO 03/06/17 09:00 04/05/17 08:59 03/08/17 08:35 40 MG Clopidogrel Bisulfate (plAVix TAB) 75 mg QAM PO 03/07/17 09:00 04/06/17 08:59 03/08/17 08:35 75 MG Objective Vital Signs Date Time Temp Pulse Resp B/P (MAP) Pulse Ox O2 Delivery O2 Flow Rate FiO2 03/08/17 15:45 36.8 96 18 138/75 (96) 96 03/08/17 12:30 Room Air 03/08/17 11:26 36.9 86 16 128/69 (88) 97 Room Air 03/08/17 08:30 Room Air 03/08/17 07:43 36.7 121 16 154/85 (108) 96 Room Air 03/08/17 04:10 Room Air 03/08/17 04:00 36.8 106 18 144/79 (100) 93 Room Air 03/08/17 00:05 Room Air 03/08/17 00:02 36.7 106 20 132/76 (94) 94 Room Air 03/07/17 20:33 Room Air 03/07/17 20:00 Room Air 03/07/17 19:40 36.6 102 18 139/79 (99) 97 Room Air Physical Exam General Appearance: WD/WN, no apparent distress Respiratory/Chest: chest non-tender, lungs clear, normal breath sounds, no respiratory distress, no accessory muscle use Cardiovascular: regular rate, rhythm, no edema, no gallop, no JVD, no murmur Abdomen: normal bowel sounds, non tender, soft, no organomegaly Extremities: + pertinent finding (dressing in place over right elbow and triceps with wound vac draining brown fluid. Swelling over hand and middle finger. Sensation intact, cap refill <2 secs) Neurologic/Psychiatric: alert, normal mood/affect, oriented x 3 Laboratory Results Last 24 Hours Test 03/07/17 20:39 03/08/17 02:01 03/08/17 05:57 03/08/17 07:13 Bedside Glucose 145 mg/dl 168 mg/dl 146 mg/dl White Blood Count 28.62 K/uL Red Blood Count 3.47 M/uL Hemoglobin 10.5 g/dL Hematocrit 32.4 % Mean Corpuscular Volume 93.4 fL Mean Corpuscular Hemoglobin 30.3 pg Mean Corpuscular Hemoglobin Concent 32.4 g/dl RDW Standard Deviation 50.7 fL RDW Coefficient of Variation 14.9 % Platelet Count 685 K/uL Mean Platelet Volume 9.2 fL Sodium Level 141 mmol/L Potassium Level 3.8 mmol/L Chloride Level 104 mmol/L Carbon Dioxide Level 33 mmol/L Anion Gap 4.0 mmol/L Blood Urea Nitrogen 22 mg/dl Creatinine 0.97 mg/dl Est Creatinine Clear Calc Drug Dose 74.9 ml/min Estimated GFR () 91.9 Estimated GFR (Non- 79.3 BUN/Creatinine Ratio 22.6 Random Glucose 163 mg/dl Calcium Level 8.2 mg/dl Total Bilirubin 0.3 mg/dl Aspartate Amino Transf (AST/SGOT) 18 U/L Alanine Aminotransferase (ALT/SGPT) 13 U/L Alkaline Phosphatase 306 U/L Total Protein 6.6 gm/dl Albumin 1.4 gm/dl Globulin 5.2 gm/dl Albumin/Globulin Ratio 0.3 Test 03/08/17 11:41 03/08/17 15:35 Bedside Glucose 201 mg/dl 146 mg/dl Assessment and Plan 67 yo male admitted to the ICU 9 days ago with septic shock secondary to urosepsis, post obstructive MACY. He then developed an abscess in his right elbow , likely seeded by his bacteremia. His hospital course was also complicated by an acute NSTEMI. Septic shock Secondary to UTI with underlying obstructive uropathy due to BPH. ID initially treated with empirically with Vancomycin and Zosyn which was later narrowed to Recephin for 2 weeks. - Initial blood and urine cultures positive for Staph Aureus - Repeat BCx negative since 03/02 - R elbow abscess underwent I&D - dressing and drain removed today - thank you to ortho for input - likely does not need further surgical treatment - monitor right middle finger - has stayed persistently swollen - WBC have been persistently high, holding steady at 28, expecting a decrease in the next couple of days - Continue Rocephin for 6 weeks per ID - tentative stop date 04/17 - culture confirmed pansensitive staph aureus - Check weekly CBC, CMP and ESR while on Rocephin per ID. PICC line in. - follow up with ID post discharge - will check CRP tomorrow - initial one was 26 - myeloproliferative neoplasm molecular genetics study pending given persistently elevated WCC and platelets NSTEMI Secondary to septic shock. Trops elevated x3. ECHO shows hypokinesis of the left ventricle. - Continue metoprolol 25mg BID and Metoprolol 5mg IV PRN for HR > 120 - Continue ASA, plavix, lisinopril 2.5mg QAM, atorvastatin 40mg - Per Cards stable for angiography but patient does not wish to at this time Systolic CHF - EF = 35-40%. - does not appear fluid overloaded, no edema or bibasilar crackles - diuretic not warranted at this time - will continue to monitor Diarrhea - C-diff toxin negative, stool culture -ve, stool WBC smear -ve, Campylobacter and salmonella negative - awaiting O&P - in patient's opinion - resolved - Continue probiotics and cholestyramine Dilated Hepatic Duct on CT - MRCP showed no intrahepatic or extrahepatic biliary ductal dilation or filling defects, but did show the presence of cholelithiasis - no further treatment given asymptomatic at this time - follow alk phos - today was 306 Anemia & Stool occult +ve - 3 units of pRBCs transfused during this hospital visit - last on 03/02 - heme-occult positive - Hgb stable 10.5 - Follow CBC - transfuse if Hgb below 6.5 - Cont PPI (40mg pantoprazole daily) as per GI, could be due to PUD - GI recommends holding off EGD, colonoscopy given recent NV unless brisk bleeding is noted MACY secondary to obstructive uropathy - improved. -Creatinine at baseline of 1 -Hallman in place for 2-4 weeks -Schedule for repeat renal u/s prior to TOV at urology follow up in 4 weeks post discharge with Dr. Allan BPH - Continue Flomax - Outpatient cystoscopy and TURP DM2 - HbA1c 8.6 - on insulin sliding scale - has glycemic consult in place DVT prophylaxis - lovenox 40mg SQ Disposition - To [facility] once okayed by ortho & there is a decrease in his WCC. Encourage mobilization as he has remained in bed for several days now. Resident Tracking Resident Involvement: Resident Care Provided Care Provided: Adult [facility] Medicine Reviewed: Pt Seen/Exam by Me History Resident Physician Supervision Note: I interviewed and examined the patient. Discussed with Dr. Hairston and agree with findings and plan as documented in the note. Any exceptions or clarifications are listed here: Mentally clearer, no complaints. Is not motivated to get out of bed even to a chair today Vital signs reviewed agitated, awake, alert, oriented to person, place, and time/date Anicteric sclerae, trachea is midline Regular rate and regular rhythm , no murmurs gallops rubs Lungs clear to auscultation bilaterally Abdomen soft nontender nondistended positive bowel sounds, Hallman in place draining clear yellow urine Extremities no edema in the lower extremities, 2+ dorsalis pedis pulses bilaterally, right arm now with drain removed, only kerlix dressing in place, edema of right triceps and prox forearm significantly decreased from previous, right middle finger with erythema and edema but less than yesterday Patient here with postobstructive acute kidney injury, severe sepsis from UTI with MSSA UTI and bacteremia, flaccid bladder with prostatitis. Also with anemia, Hemoccult positive stool, and noninfectious diarrhea now resolved, as well as persistently elevated leukocytosis and large right elbow and triceps abscess. -Appreciate orthopedic surgical drainage of triceps and elbow abscess-this is likely the cause of his persistent leukocytosis and thrombocytosis-this is MSSA and was seeded from his previous bacteremia at the site of a hematoma from his fall--> 6 weeks Rocephin -Renal function normal and stable -Continue Rocephin daily for MSSA UTI and bacteremia for total of 6 weeks, echo without vegetation on the valves, follow repeat blood cultures and if positive, consider SUSIE if repeat culture positive - leukocytosis is stable but expect to improve -> likely was from elbow and should improve now s/p I&D. C. difficile negative 2, repeat Ur cx no growth. -anemia improving, no gross bleeding, Appreciate GI consultation, no plans for endoscopy at this time given his critical status unless he developed gross GI bleeding -For elevated alkaline phosphatase and dilated intrahepatic ducts seen on CT, MRCP with sludge and stones but no dilatation of ducts--> elevated Alk phos could be from muscle and bony source given right elbow process -For the diarrhea-resolved-> likely antibiotic associated-continue probiotics and cholestyramine, could be some pancreatic atrophy contributing seen on CT with pancreatic insufficiency -For his recent NSTEMI, continue aspirin 81 mg once daily, add Plavix, restarted KORI inhibitor, started atorvastatin, continue metoprolol and consider cardiac catheterization in the near future if pt agreeable-f/u with Cardiology -New onset systolic CHF secondary to recent NV-does not appear fluid overloaded , continue medications as above but does not need diuretic at this time -Lovenox SQ for DVT proph--> with Heme+ stool and anemia but no gross bleeding-- > benefit of preventing DVT outweighs risk of occult GI bleeding but will cautiously follow the CBC -Will need rehabilitation when medically stable--> strongly encouraged OOB and mobilization but he is declining today Documented By: Maryellen Walters
[2017-03-08 19:26] VITALS: BP 137/75; PULSE 97; TEMP 36.7; O2SAT 95
[2017-03-09] VITALS (7 sets, daily range): BP systolic 111–142; BP diastolic 58–88; PULSE 87–100; TEMP 36.4–36.9; O2SAT 93–98
[2017-03-09 06:02] LABS: HEMATOCRIT 33.8 % (42-52); MEAN CELL VOLUME 94.4 fL (80-100); MEAN CORPUSCULAR HEMOGLOBIN 28.8 pg (25-34); MEAN CORPUSCULAR HGB CONC 30.5 g/dl (32-36); MEAN PLATELET VOLUME 9.4 fL (7.4-10.4); PLATELET COUNT 762 K/uL (130-400); RED BLOOD COUNT 3.58 M/uL (4.7-6.1); WHITE BLOOD COUNT 24.92 K/uL (4.8-10.8)
[2017-03-09 06:33] LABS: ALB/GLOB RATIO 0.3 (0.9-2); BUN/CREATININE RATIO 26.2 (10-20); CALCIUM 7.9 mg/dl (8.5-10.1); CREATININE 0.8 mg/dl (0.60-1.40); POTASSIUM 3.8 mmol/L (3.5-5.1)
[2017-03-09 06:34] LABS: C-REACTIVE PROTEIN 7.17 mg/dl (0-0.29)
--- NOTE | 2017-03-09 07:59 | Orthopedic Progress Note ---
Orthopedic Progress Note Date of Service Mar 09, 2017. Subjective Post OP Day: 3 Reports: feeling well, Denies: chest pain, SOB, nausea / vomiting, light headedness Objective N/V intact, capillary refill less than 2 sec., incision C/D/I, A&O x3 Date Time Temp Pulse Resp B/P (MAP) Pulse Ox O2 Delivery O2 Flow Rate FiO2 03/09/17 07:03 36.8 92 20 137/81 (99) 96 Room Air 03/09/17 04:00 95 Room Air 03/09/17 04:00 36.4 93 20 142/88 (106) 96 Room Air 03/09/17 00:00 36.6 89 18 134/75 (94) 95 Room Air 03/09/17 00:00 95 Room Air 03/08/17 20:10 Room Air 03/08/17 19:26 36.7 97 18 137/75 (95) 95 Room Air 03/08/17 16:30 Room Air 03/08/17 15:45 36.8 96 18 138/75 (96) 96 03/08/17 12:30 Room Air 03/08/17 11:26 36.9 86 16 128/69 (88) 97 Room Air 03/08/17 08:30 Room Air Laboratory Results 24 Hours: Test 03/09/17 05:27 Hematocrit 33.8 % Hemoglobin 10.3 g/dL Assessment & Plan Assessment: POD#3 SP I&D ELBOW/TRICEPS Plan: CONTINUE IV ABX- ID RECOMMENDING 6 WEEK COURSE, WILL NEED PICC LINE AND LAB MONITORING. CULTURES SHOWING STAPH. MEDICAL MANAGEMENT DRESSING CHANGED, DRAIN REMOVED. NO NEED FOR IMMEDIATE REPEAT I&D AT THIS POINT. HAND/FINGER SWELLING IMPROVED GREATLY TODAY. RECOMMEND ICE AND CONTINUED ELEVATION OF RUE. ORTHOPEDICALLY STABLE, WILL SIGN OFF FOLLOW UP IN 10-14 DAYS FROM SURGERY FOR WOUND CHECK/SUTURE REMOVAL ABX PER ID RECOMMENDATIONS
[2017-03-09] MEDS ORDERED: INSULIN HUMAN NPH SC SCH ×2 (08:00→17:00)
--- NOTE | 2017-03-09 08:01 | Consultant Recommendations ---
Industrial Designer Recommendations Date of Service Mar 09, 2017. Industrial Designer Recommendations Sling for comfort with RUE when up. Ice early on. May switch to warm moist heating pad in several days. Increase range of motion of right elbow as tolerated. Continue flexion/ extension exercises of fingers/hand/wrist regularly Keep arm/hand elevated as much as possible. Antibiotics per Dr. Avalos May shower, no tub baths. Keep incision clean and dry. Dressing changes as needed. Follow up in office in 2 week for wound check/suture removal or sooner if not resolving or worsening of symptoms. [phone]
[2017-03-09] MEDS: ASPIRIN 81 MG ECTAB PO SCH (08:45)
[2017-03-09] MEDS: BOOST GLUCOSE CONTROL PO SCH ×3 (08:45→17:28)
[2017-03-09] MEDS: THIAMINE HCL 100 MG TAB PO SCH (08:45)
[2017-03-09] MEDS: MULTIVITAMIN TAB PO SCH (08:45)
[2017-03-09] MEDS: TAMSULOSIN HCL 0.4 MG CAP PO SCH (08:45)
[2017-03-09] MEDS: LACTOBACILLUS ACIDOPHILUS (FLORANEX) TAB PO SCH ×3 (08:45→17:04)
[2017-03-09] MEDS: ATORVASTATIN 40 MG TAB PO SCH (08:45)
[2017-03-09] MEDS: CHOLECALCIFEROL 1000 INTER.UNIT TAB PO SCH (08:45)
[2017-03-09] MEDS: METOPROLOL TARTRATE 25 MG TAB PO SCH ×2 (08:45→21:10)
[2017-03-09] MEDS: CLOPIDOGREL BISULFATE 75 MG TAB PO SCH (08:45)
[2017-03-09] MEDS: PANTOprazole SOD 40 MG TAB PO SCH (08:45)
[2017-03-09] MEDS: ENOXAPARIN 40 MG/0.4 ML SYR SQ SCH (08:46)
[2017-03-09] MEDS: CYANOCOBALAMIN 500 MCG TAB (VIT B-12) PO SCH (08:46)
[2017-03-09] MEDS: LISINOPRIL 2.5 MG TAB PO SCH (08:46)
[2017-03-09] MEDS: INSULIN ASPART 100 UNITS/ML 3 ML PEN SC SCH ×4 (08:50→21:00)
[2017-03-09] MEDS ORDERED: MAGNESIUM HYDROXIDE SUSP 30 ML UDC PO ONE (10:00)
[2017-03-09] MEDS ORDERED: PRT40 PO (10:08)
[2017-03-09] MEDS ORDERED: QSTP PO (10:08)
[2017-03-09] MEDS ORDERED: LCTX PO (10:08)
[2017-03-09] MEDS ORDERED: LPT40 PO (10:08)
[2017-03-09] MEDS ORDERED: FLV1 PO (10:08)
[2017-03-09] MEDS ORDERED: LSN25 PO (10:08)
[2017-03-09] MEDS ORDERED: PLV75 PO (10:08)
[2017-03-09] MEDS ORDERED: LPR25 PO (10:08)
--- NOTE | 2017-03-09 10:13 | Discharge Instructions ---
Discharge Instructions Date of Service Mar 09, 2017. Admission Reason for Admission: Sepsis Discharge Discharge Diagnosis / Problem: SEPSIS / NSTEMI Discharge Goals Goal(s): Diagnostic testing, Therapeutic intervention Activity Recommendations Activity Level: Up Ad Reshma Therapies: Physical Therapy, Occupational Therapy . Additional Information Patient informed of condition: Yes Advance Directives: No DNR: No Level of Care: Acute Rehab Communicable Disease: No Prognosis: Stable Oxygen at (LPM): NONE Hallman Catheter: Yes Instructions / Follow-Up Instructions / Follow-Up 67 yo male admitted to the ICU with Septic shock 2/2 to urosepsis, post obstructive MACY. Currently with persistently elevated WBC despite negative urine and repeat blood cultures, neg C. diff toxins. Likely from R elbow abscess which was drained by ortho 03/06. Now with decreasing WBC. Possible filling defect from dilated hepatic duct contributing to elevated WBC ruled out by MRCP given nl bile duct and PD with only notable gallstones. Septic shock Secondary to UTI with underlying obstructive uropathy. Pt had a recent hospitalization for UTI/Prostatitis. Pt had 1 positive culture with Staph Aureus and a positive UCx with MSSA Staph Aureus 2/2 septicemia from source. Per ID, initially treated with empirically with Vancomycin and Zosyn which was later narrowed to Rocephin for 2 weeks. Central line was placed and removed. Stopped pressors 03/01. WBC uptrended again and continued to be elevated. Repeat blood cultures were obtained and negative. Oncology consulted suggested cytosis & leukocytosis reactive to sepsis given normal spleen and lack of L shift. Prostatitis also considered but UCx negative despite minor abnormalities in UA. Given dilated hepatic duct on CT MRCP was completed on 03/07 to rule out a possible filling defect as a source of elevated WBC, which only showed gallstones and normal bile dict and PD. Pt also had R elbow pain, swelling, erythema and warmth s/p injuring elbow during fall prior to presentation. Ortho evaluated and initially believed likely traumatic hematoma/inflammation causing discomfort. Per ID recommendation, MRI R elbow ordered to r/ot septic arthritis/ osteomyelitis given continued symptoms and elevated WBC which rules out septic arthritis and osteomyelitis and suggested abscess or reactive fluid separate from joint, superficial and proximal to olecranon. I&D by orthopedics on 03/06 with a pound of drainage. Abscess culture growing pansensitive staph aureus. Drain was removed by ortho and dressing changed and recommended f/u in 2 weeks for wound check/suture removal or sooner if worsening of symptoms/not improving. Ortho monitored R middle finger pain and swelling, Kanavel's sign was negative and was not concerned about septic flexor tenosynovitis. Per ID, continue on Rocephin for 6 weeks post I&D with tentative stop date of 04/17, obtained a PICC line and will check weekly cbc, cmp, and esr while on Rocephin. Currently WBC down trending and patient HD stable. -WBC 28.62 - 9/ - downtrending to 24.92 - PICC Line in place Recommendation: - F/u on pending myeloproliferative neoplasm molecular genetic study - Administer Rocephin 2g daily via PICC line until 04/17 - today is day 8 - Please check weekly CBC, CMP and ESR while on Rocephin per ID - F/u with ID in 2 weeks R elbow - Sling for comfort with RUE when up - Ice initially and switch to warm moist heating pad in several days. - Increase range of motion of right elbow as tolerated - Continue flexion/extension exercises of fingers/hand/wrist regularly - Keep arm/hand elevated as much as possible. - May shower, no tub baths. Keep incision clean and dry. Dressing changes as needed. - Please continue Rocephin (as above) GI/Diarrhea C.diff negative x 2. GI also ordered WBC smear (neg), shiga toxin, Campylobacter and salmonella stool cultures which were all negative. Possibly antibiotic related, probiotics initiated which might have helped decrease frequency to 3x/day from 6x/day. Per GI, could also be from pancreatic insufficiency given pancreatic atrophy on CT. Alk phos elevated but continues to downtrend (275 - 03/09). Given dilated HD on Ct, MRCP to rule out intra and extra hepatic biliary duct dilation or filling defect completed on 03/07, revealed only cholelithiasis and normal bile and pancreatic duct. GI recommended no treatment, asymptomatic at this point will follow alk phos. Recommendations: -Continue probiotics and cholestyramine -Follow alkaline phosphatase on a weekly basis -GI f/u in 2 weeks Improving Anemia Present on arrival but considered dilutional. Also had hematuria which resolved during admission. Received 2 units on 02/28 for 7.5 Hgb. Hgb downtrending again on 03/02 to 7.4, transfused with 1 unit pRBCs. GI consult placed for evaluation of GI source of bleeding given +heme occult but did not want to scope him given lack of active bleeding in light of acute illness. H&H improved and stabilized at about 10.3 and 33.8 as of 03/09 post latest transfusion. GI did not see the need for acute endoscopy and colonoscopy in the recent of NSTEMI despite positive heme occult given lack of symptoms, -Coags: INR 1.2 and PT 13.2 -H&H stable 10.3 & 33.8 as of 03/09 Recommendations: -Please obtain weekly CBCs transfuse if below 6.5 -Please continue PPI -F/u with GI in 2 weeks regarding outpatient EGD and colonoscopy and PPI to see if need to continue given increased risk for C.diff especially with while on antibiotic Rocephin. CHF - systolic EF: 35-40%. Not fluid overloaded, no edema, bibasilar crackles. Currently not on diuretics Recommendations: -Please continue to monitor fluid status NSTEMI 2/2 shock. Trops elevated x3. ECHO shows hypokinesis of the left ventricle. Continued to have tachycardia somewhat controlled on metoprolol 25mg BID -Per Cards stable for angiography in the next day or 2 but patient hesitant Recommendations: -Recommend continuing metoprolol 25mg BID, ASA 81mg, Plavis, Lisinopril 2.5mg QAM, and Atorvastatin 40mg -After removal of hallman if no increase in Cr can consider increasing Lisinopril to 10mg (previous home regimen) -F/u with cardiology in 2 weeks MACY 2/2 obstructive uropathy - resolved Per urology, repeat renal u/s showing some persistent hydro which is not uncommon in the setting of UR and will take a few weeks with ahllman in place to resolve. Compared with previous KUB from December, calcification in the pelvis consistent, not left ureteral stone especially given afebrile. Hallman catheter for 2-4 weeks in the setting of UTI and likely prostatitis. Baseline Cr 1 -Cr improved to 0.80 - 03/09 Recommend: -Following weekly BMPs -Follow up with urology in [address] Allan -NOTE: Schedule for repeat renal u/s prior to TOV at urology follow up in 4 weeks post discharge with Dr. Allan BPH Recommend: -Continuing Flomax -Outpatient f/w with urology in 4 weeks -Outpatient cystoscope and TURP per urology Diabetes with DKA and hypoglycemia Pt came in with high sugars likely exacerbated by infection. Anion gap acidosis , elevated beta-hydroxybutyrate, normal lactic acid. PMHX DM2, noncompliant, HbA1c 8.6 (03/02). Was hypoglycemic during the night and hyperglycemic during the day so switched to NPH from Lantus. Switched back to Lantus 30 units in preparation for discharge on home regimen. Will d/c on home regimen. -30 units Lantus -On NovoLog SC: CF: 20 CHO ratio 1:8 -Goal: 110-140 Recommend: -Continuing home regimen of metformin and insulin 100 units -Monitor and adjust as needed DVT prophylaxis Lovenox was held for concerns of bleeding. Heparin initiated by radiation protection technician given benefits outweigh risks of GI bleed and patient was continued on it for the course of his admission. Dispo: To [facility] with PICC. Current Hospital Diet Patient's current hospital diet: Diabetes Type 2 Diet Discharge Diet Recommended Diet: AHA Diet (Heart Healthy), Low Sodium Diet (2gm Na), Diabetes Type 2 Diet Procedures Procedures Performed: 1. Incision and drainage of right elbow/triceps 2. Debridement Triceps Fascia Pending Studies Studies pending at discharge: yes List of pending studies: Myeloproliferative neoplasm molecular genetic study Laboratory Results Hemoglobin A1c Test 03/03/17 04:42 Range/Units Estimated Average Glucose 200 mg/dl Hemoglobin A1c 8.6 H 4.5-5.6 % Lipid Panel Test 03/04/17 06:27 Range/Units Triglycerides Level 106 0-150 mg/dl Cholesterol Level 67 0-200 mg/dl HDL Cholesterol 16 mg/dl Cholesterol/HDL Ratio 4.2 LDL Cholesterol, Calculated 30 mg/dl Medical Emergencies . Who to Call and When: Medical Emergencies: If at any time you feel your situation is an emergency, please call 911 immediately. . Non-Emergent Contact Non-Emergency issues call your: Primary Care Provider . . "Provider Documentation" section prepared by Rafael Cowart. . Garbage Depot Worker Recommendations Garbage Depot Worker Recommendations: Sling for comfort with RUE when up. Ice early on. May switch to warm moist heating pad in several days. Increase range of motion of right elbow as tolerated. Continue flexion/ extension exercises of fingers/hand/wrist regularly Keep arm/hand elevated as much as possible. Antibiotics per Dr. Avalos May shower, no tub baths. Keep incision clean and dry. Dressing changes as needed. Follow up in office in 2 week for wound check/suture removal or sooner if not resolving or worsening of symptoms. [phone] Core Measure Problem Core Measures: AMI AMI Core Measures Reason no ASA as I/P: Treatment provided - N/A Reason no ASA at D/C: Treatment provided - N/A Reason no statin as I/P: Treatment provided - N/A Reason no statin at D/C: Treatment provided - N/A
--- NOTE | 2017-03-09 10:16 | Pharmacy Progress Note ---
Glycemic Control Progress Note Date of Service Mar 09, 2017. Scope Glycemic Pharmacist consulted for glycemic control to write orders per [facility] inpatient glycemic control protocol. Objective Accuchecks BSG (last 24hrs): Test 03/08/17 11:41 03/08/17 15:35 03/08/17 19:53 03/09/17 05:27 Bedside Glucose 201 mg/dl (70-99) 146 mg/dl (70-99) 237 mg/dl (70-99) Random Glucose 199 mg/dl (70-99) Test 03/09/17 07:28 Bedside Glucose 217 mg/dl (70-99) HbA1c: Test 03/03/17 04:42 Hemoglobin A1c 8.6 % (4.5-5.6) H Recent Pertinent Medications The patient is currently receiving: * Basal insulin: NPH 30 units every 24 hours * Correctional Insulin: Novolog Correction per scale ACHS Goal Range: Low 110 mg/dL - High 140 mg/dL Correction Factor: 20 mg/dL/unit * Prandial insulin: Per carb ratio of 1 unit per 8 grams CHO consumed Outpatient Anti-Diabetic Meds Oral agents * Metformin 1000 mg PO BID Basal Insulin * Lantus 30 units SQ HS (added in December) Assessment & Plan ASSESSMENT: * See progress note from 03/06/17 for more background info, in short: * Pt receiving SQ basal bolus insulin regimen for hyperglycemia secondary to baseline DM (outpatient regimen on hold) & stress/infection * Pt changed from Lantus to NPH on 03/05 due to persistent overnight hypoglycemia. Once daily dosing preferred due to non compliance at home. * BSGs ranging 146 - 237 mg/dl over the past 24hrs * Patient received 67 units of insulin * 30 units of basal * 37 units of bolus * Changes needed to insulin regimen: * AM Fasting BSG elevated today at 217 mg/dl. I am surprised by this since patient received 50% more NPH yesterday. This may be delayed effect of lack of basal insulin on previous days when pt was NPO for procedures. * Post-prandial BSGs were improving overall, however, they began to fluctuate yesterday despite tightening CF/CR. Of note, patient started Boost TIDM 9/2 pm. Boost contains 20g of carbohydrates that were not being covered with Novolog. Also patient ordered a regular + T2DM diet. I have removed the regular diet and discussed with the patient' s nurse the need to cover Boost with Novolog. Will only slightly tighten CF/CR this morning since I attribute hyperglycemia to lack of insulin coverage. PLAN FOR INPATIENT GLYCEMIC CONTROL: * Continue to hold metformin * NPH 35 units SQ once daily w/ breakfast . * Tighten correction factor to 18 mg/dl/unit - may change back to 20 based on BSG trend * Tighten carb ratio to 1 unit per 6 grams CHO consumed - may change back to 8 based on BSG trend * Continue goal range of Low 110 mg/dL - High 140 mg/dL RECOMMENDATIONS FOR DISCHARGE: * May consider resuming home regimen of Lantus 30 units SQ HS + metformin 500 mg PO BID on discharge as long as he is not experiencing hypoglycemic episodes. Titrate per outpatient provider. * Please note that the plan above was derived based on current level of insulin resistance and hospital stress. These recommendations are appropriate for inpatient admission only. Plan of care upon discharge will need to be reassessed to avoid potential outpatient hypo/hyperglycemia. Thank you.
[2017-03-09] MEDS: PSYLLIUM 58.6% PWD PACK S\\F PO SCH (10:51)
[2017-03-09] MEDS: CHOLESTYRAMINE LIGHT 4 GM PKT PO SCH ×2 (10:51→22:08)
[2017-03-09] MEDS: ACETAMINOPHEN 325 MG TAB PO PRN (11:35)
[2017-03-09] MEDS ORDERED: CEFT1INJ6 IV (11:35)
--- NOTE | 2017-03-09 11:43 | Discharge Summary ---
Discharge Summary Date of Service Mar 09, 2017. (Rafael Cowart M.D.) Discharge Summary Admission Date: Feb 27, 2017 at 15:33 Discharge Date: Mar 09, 2017 Discharge Disposition: Rehab Principal Diagnosis: sepsis Problems/Secondary Diagnoses: UTI post obstructive MACY Prostatitis Right elbow abscess diarrhea anemia NSTEMI Systolic CHF BPH Diabetes with DKA and hypoglycemia Procedures: MRCP - cholelithiasis only Orthopedics - abscess below triceps tendon I&D MRI R elbow Chest x-ray Abd/pelvis Ct Renal US ECHO Consultations: Cardiology ID GI Heme/Onc Orthopedics Intensivists [facility] (Rafael Cowart M.D.) Discharge Exam Review of Systems: Constitutional: No fever Respiratory: + shortness of breath Cardiovascular: No chest pain Abdomen: + diarrhea, No pain, No nausea, No vomiting Musculoskeletal: + joint pain Neurologic: No problem reported Physical Exam: General Appearance: no apparent distress Eyes: normal inspection Respiratory/Chest: lungs clear, normal breath sounds, no respiratory distress Cardiovascular: + tachycardia Abdomen / GI: normal bowel sounds, non tender, soft Extremities: no calf tenderness, no pedal edema Neurologic/Psychiatric: alert, oriented x 3 (Rafael Cowart M.D.) Hospital Course 67 yo male admitted to the ICU with Septic shock 2/2 to urosepsis, post obstructive MACY. Currently with persistently elevated WBC despite negative urine and repeat blood cultures, neg C. diff toxins. Likely from R elbow abscess which was drained by ortho 03/06. Now with decreasing WBC. Possible filling defect from dilated hepatic duct contributing to elevated WBC ruled out by MRCP given nl bile duct and PD with only notable gallstones. Septic shock Secondary to UTI with underlying obstructive uropathy. Pt had a recent hospitalization for UTI/Prostatitis. Pt had 1 positive culture with Staph Aureus and a positive UCx with MSSA Staph Aureus 2/2 septicemia from source. Per ID, initially treated with empirically with Vancomycin and Zosyn which was later narrowed to Rocephin for 2 weeks. Central line was placed and removed. Stopped pressors 03/01. WBC uptrended again and continued to be elevated. Repeat blood cultures were obtained and negative. Oncology consulted suggested cytosis & leukocytosis reactive to sepsis given normal spleen and lack of L shift. Prostatitis also considered but UCx negative despite minor abnormalities in UA. Given dilated hepatic duct on CT MRCP was completed on 03/07 to rule out a possible filling defect as a source of elevated WBC, which only showed gallstones and normal bile dict and PD. Pt also had R elbow pain, swelling, erythema and warmth s/p injuring elbow during fall prior to presentation. Ortho evaluated and initially believed likely traumatic hematoma/inflammation causing discomfort. Per ID recommendation, MRI R elbow ordered to r/ot septic arthritis/ osteomyelitis given continued symptoms and elevated WBC which rules out septic arthritis and osteomyelitis and suggested abscess or reactive fluid separate from joint, superficial and proximal to olecranon. I&D by orthopedics on 03/06 with a pound of drainage. Abscess culture growing pansensitive staph aureus. Drain was removed by ortho and dressing changed and recommended f/u in 2 weeks for wound check/suture removal or sooner if worsening of symptoms/not improving. Ortho monitored R middle finger pain and swelling, Kanavel's sign was negative and was not concerned about septic flexor tenosynovitis. Per ID, continue on Rocephin for 6 weeks post I&D with tentative stop date of 04/17, obtained a PICC line and will check weekly cbc, cmp, and esr while on Rocephin. Currently WBC down trending and patient HD stable. -WBC 28.62 - 03/08 - downtrending to 24.92 - PICC Line in place Recommendation: - F/u on pending myeloproliferative neoplasm molecular genetic study - Administer Rocephin 2g daily via PICC line until 04/17 - today is day 8 - Please check weekly CBC, CMP and ESR while on Rocephin per ID - F/u with ID in 2 weeks R elbow - Sling for comfort with RUE when up - Ice initially and switch to warm moist heating pad in several days. - Increase range of motion of right elbow as tolerated - Continue flexion/extension exercises of fingers/hand/wrist regularly - Keep arm/hand elevated as much as possible. - May shower, no tub baths. Keep incision clean and dry. Dressing changes as needed. - Please continue Rocephin (as above) GI/Diarrhea C.diff negative x 2. GI also ordered WBC smear (neg), shiga toxin, Campylobacter and salmonella stool cultures which were all negative. Possibly antibiotic related, probiotics initiated which might have helped decrease frequency to 3x/day from 6x/day. Per GI, could also be from pancreatic insufficiency given pancreatic atrophy on CT. Alk phos elevated but continues to downtrend (275 - 03/09). Given dilated HD on Ct, MRCP to rule out intra and extra hepatic biliary duct dilation or filling defect completed on 03/07, revealed only cholelithiasis and normal bile and pancreatic duct. GI recommended no treatment, asymptomatic at this point will follow alk phos. Recommendations: -Continue probiotics and cholestyramine -Follow alkaline phosphatase on a weekly basis -GI f/u in 2 weeks Improving Anemia Present on arrival but considered dilutional. Also had hematuria which resolved during admission. Received 2 units on 02/28 for 7.5 Hgb. Hgb downtrending again on 03/02 to 7.4, transfused with 1 unit pRBCs. GI consult placed for evaluation of GI source of bleeding given +heme occult but did not want to scope him given lack of active bleeding in light of acute illness. H&H improved and stabilized at about 10.3 and 33.8 as of 03/09 post latest transfusion. GI did not see the need for acute endoscopy and colonoscopy in the recent of NSTEMI despite positive heme occult given lack of symptoms, -Coags: INR 1.2 and PT 13.2 -H&H stable 10.3 & 33.8 as of 03/09 Recommendations: -Please obtain weekly CBCs transfuse if below 6.5 -Please continue PPI -F/u with GI in 2 weeks regarding outpatient EGD and colonoscopy and PPI to see if need to continue given increased risk for C.diff especially with while on antibiotic Rocephin. CHF - systolic EF: 35-40%. Not fluid overloaded, no edema, bibasilar crackles. Currently not on diuretics Recommendations: -Please continue to monitor fluid status NSTEMI 2/2 shock. Trops elevated x3. ECHO shows hypokinesis of the left ventricle. Continued to have tachycardia somewhat controlled on metoprolol 25mg BID -Per Cards stable for angiography in the next day or 2 but patient hesitant Recommendations: -Recommend continuing metoprolol 25mg BID, ASA 81mg, Plavis, Lisinopril 2.5mg QAM, and Atorvastatin 40mg -After removal of hallman if no increase in Cr can consider increasing Lisinopril to 10mg (previous home regimen) -F/u with cardiology in 2 weeks MACY 2/2 obstructive uropathy - resolved Per urology, repeat renal u/s showing some persistent hydro which is not uncommon in the setting of UR and will take a few weeks with hallman in place to resolve. Compared with previous KUB from December, calcification in the pelvis consistent, not left ureteral stone especially given afebrile. Hallman catheter for 2-4 weeks in the setting of UTI and likely prostatitis. Baseline Cr 1 -Cr improved to 0.80 - 03/09 Recommend: -Following weekly BMPs -Follow up with urology in [address] Allan -NOTE: Schedule for repeat renal u/s prior to TOV at urology follow up in 4 weeks post discharge with Dr. Allan BPH Recommend: -Continuing Flomax -Outpatient f/w with urology in 4 weeks -Outpatient cystoscope and TURP per urology Diabetes with DKA and hypoglycemia Pt came in with high sugars likely exacerbated by infection. Anion gap acidosis , elevated beta-hydroxybutyrate, normal lactic acid. PMHX DM2, noncompliant, HbA1c 8.6 (03/02). Was hypoglycemic during the night and hyperglycemic during the day so switched to NPH from Lantus. Will d/c on home regimen. -30 units NPH QAM -On NovoLog SC: CF: 20 CHO ratio 1:8 -Goal: 110-140 Recommend: -Continuing home regimen of metformin and insulin 100 units -Monitor and adjust as needed DVT prophylaxis Lovenox was held for concerns of bleeding. Heparin initiated by morning show newscast producer given benefits outweigh risks of GI bleed and patient was continued on it for the course of his admission. Dispo: To [facility] with PICC. Total Time Spent: Greater than 30 minutes This includes examination of the patient, discharge planning, medication reconciliation, and communication with other providers. (Rafael Cowart M.D.) Resident Physician Supervision Note: I interviewed and examined the patient. Discussed with Dr. Cowart and agree with findings and plan as documented in the note. Any exceptions or clarifications are listed here: None Documented By: Rigoberto Cortés feeling better. elbow improving. no new complaints. updated on situation and dispo plan to [facility]. reiterates his degree of weakness, i re-emphasize that is why [facility] appears most appropriate dispo for him. he understands and agrees. all other ROS otherwise negative except for as above vitals noted nad breathing unlabored no pallor or icterus UTI w sepsis/bacteremia and septic triceps abscess -due to BPH w severe urinary retention -improving -abx as above -follow middle finger R hand otherwise as above (Rigoberto Cortés D.O.) Discharge Instructions Please refer to the electronic Patient Visit Report (Discharge Instructions) for additional information. (Rafael Cowart M.D.) Additional Copies To Barb Gray M.D.
[2017-03-09] MEDS: CEFTRIAXONE SOD INJ 2,000 MG in DEXTROSE 5% 50ML 50 ML IV SCH (13:28)
--- NOTE | 2017-03-09 14:38 | Gastroenterology Progress Note ---
Progress Note Date of Service: Mar 09, 2017 Subjective Pt evaluation today including: conversation w/ patient, physical exam, chart review, lab review, review of studies, review of inpatient medication list cc F/u diarrhea HPI Pt states still having loose stools but improved. He denies abd pain and states he is tolerating diet. DC ordered to [facility] but no beds so not going today. Review of Systems Respiratory: No shortness of breath Cardiac: No chest pain Medications Current Inpatient Medications Medications (Trade) Dose Ordered Sig/Nilda Route Start Time Stop Time Status Last Admin Dose Admin Acetaminophen (Tylenol Tab) 650 mg Q4H PRN PO 02/27/17 15:30 03/29/17 15:29 03/09/17 11:35 650 MG Al Hydrox/Mg Hydrox/Simethicone (Maalox Max Susp) 15 ml Q4H PRN PO 02/27/17 15:30 03/29/17 15:29 Magnesium Hydroxide (Milk Of Magnesia Susp) 30 ml Q12H PRN PO 02/27/17 15:30 03/29/17 15:29 Ondansetron HCl (Zofran Inj) 4 mg Q6H PRN IV 02/27/17 15:30 03/29/17 15:29 Polyethylene (Miralax Powder Packet) 17 gm DAILY PRN PO 02/27/17 15:30 03/29/17 15:29 Aspirin (Ecotrin Tab) 81 mg DAILY PO 02/28/17 09:00 03/30/17 08:59 Future hold 03/09/17 08:45 81 MG Cholecalciferol (Vitamin D Tab) 1,000 inter.unit DAILY PO 02/28/17 09:00 03/30/17 08:59 03/09/17 08:45 1,000 INTER.UNIT Cyanocobalamin (Vitamin B-12 Tab) 1,000 mcg DAILY PO 02/28/17 09:00 03/30/17 08:59 03/09/17 08:46 1,000 MCG Tamsulosin HCl (Flomax Cap) 0.4 mg DAILY PO 02/28/17 09:00 03/30/17 08:59 Future hold 03/09/17 08:45 0.4 MG Glucose (Glucose 40% Gel) 15-30 GRAMS 15 GRAMS... UD PRN PO 02/27/17 17:30 03/29/17 17:29 Glucose (Glucose Chew Tab) 4-8 Tablets 4 Tabl... UD PRN PO 02/27/17 17:30 03/29/17 17:29 Dextrose (Dextrose 50% 50ML Syringe) 25-50ML OF 50% DW IV FOR... UD PRN IV 02/27/17 17:30 03/29/17 17:29 03/02/17 00:01 50 ML Glucagon (Glucagon Inj) 1 mg UD PRN SQ 02/27/17 17:30 03/29/17 17:29 Insulin Aspart (novoLOG ASPART) SLIDING SCALE If CARB RA... ACHS SC 03/01/17 16:00 03/31/17 15:59 Future hold 03/09/17 12:12 15 UNITS Heparin Sodium (Porcine) (Heparin 10 Unit/ ml 5 ml Flush) 5 ml PRN PRN FLUSH 03/01/17 23:30 03/31/17 23:29 Enteral Nutritional Formula (Boost Glucose Control) 1 can TIDM PO 03/02/17 07:15 04/01/17 07:14 03/09/17 12:08 1 CAN Ceftriaxone Sodium 2000 mg/ Dextrose 70 ml @ 100 mls/hr Q24H IV 03/02/17 14:00 03/16/17 13:59 03/09/17 13:28 100 MLS/HR Miscellaneous Information (Consult Glycemic Management Pharmacy) 1 ea UD PRN N/A 03/02/17 13:15 04/01/17 13:14 Lactobacillus Acidophilus (Floranex Tab) 4 tab TIDM PO 03/03/17 07:15 04/02/17 07:14 03/09/17 12:08 4 TAB Multivitamins (Multivitamin Tab) 1 tab QAM PO 03/03/17 09:00 04/02/17 08:59 03/09/17 08:45 1 TAB Thiamine HCl (Vitamin B-1 Tab) 100 mg QAM PO 03/03/17 09:00 04/02/17 08:59 03/09/17 08:45 100 MG Ipratropium [place] (Atrovent 0.02% 0.5MG/2.5ML Neb) 0.5 mg Q6H PRN INH 03/03/17 09:15 04/02/17 09:14 Levalbuterol (Xopenex 0.63 Mg/ 3 Ml Neb) 0.63 mg Q6H PRN INH 03/03/17 09:15 04/02/17 09:14 Psyllium Hydrophilic Mucilloid (Metamucil Powder) 1 pkt DAILY@1100 PO 03/03/17 11:00 04/02/17 10:59 03/09/17 10:51 1 PKT Metoprolol Tartrate (Lopressor Tab) 25 mg BID PO 03/03/17 21:00 04/02/17 20:59 03/09/17 08:45 25 MG Folic Acid (Folvite Tab) 1 mg QAM PO 03/04/17 09:00 04/03/17 08:59 03/09/17 08:45 1 MG Pantoprazole Sodium (Protonix Tab) 40 mg QAM PO 03/05/17 09:00 04/04/17 08:59 03/09/17 08:45 40 MG Acetaminophen 650 mg/Empty Bag 65 ml @ 260 mls/hr Q6H PRN IV 03/05/17 11:15 04/04/17 11:14 03/08/17 20:59 260 MLS/HR Metoprolol Tartrate (Lopressor Iv) 5 mg Q4H PRN IV 03/05/17 16:00 04/02/17 17:44 03/06/17 03:01 5 MG Enoxaparin Sodium (Lovenox Inj) 40 mg QAM SQ 03/06/17 09:00 04/05/17 08:59 03/09/17 08:46 40 MG Cholestyramine Resin (Questran Powder Light) 4 gm BID@,22 PO 03/05/17 22:00 04/04/17 21:59 03/09/17 10:51 4 GM Lisinopril (Zestril Tab) 2.5 mg QAM PO 03/06/17 09:00 04/05/17 08:59 03/09/17 08:46 2.5 MG Atorvastatin Calcium (Lipitor Tab) 40 mg QAM PO 03/06/17 09:00 04/05/17 08:59 03/09/17 08:45 40 MG Clopidogrel Bisulfate (plAVix TAB) 75 mg QAM PO 03/07/17 09:00 04/06/17 08:59 03/09/17 08:45 75 MG Heparin Sodium (Porcine) (Heparin 10 Unit/ ml 5 ml Flush) 5 ml PRN PRN FLUSH 03/08/17 17:15 04/07/17 17:14 03/09/17 14:13 5 ML Insulin Human NPH (novoLIN-N NPH) 35 units QDB SC 03/09/17 08:00 04/08/17 07:59 03/09/17 08:51 35 UNITS Insulin Aspart (novoLOG ASPART) SLIDING SCALE If CARB RA... 0200 PR 03/10/17 02:00 03/10/17 02:01 Insulin Human NPH (novoLIN-N NPH) SEE PROTOCOL TEXT QDD SC 03/09/17 17:00 03/09/17 19:00 Insulin Glargine (Lantus Solostar Pen) 30 units QAM PR 03/10/17 09:00 04/09/17 08:59 Objective Vital Signs Date Time Temp Pulse Resp B/P (MAP) Pulse Ox O2 Delivery O2 Flow Rate FiO2 03/09/17 11:50 Room Air 03/09/17 11:44 36.9 87 18 129/80 (96) 98 Room Air 03/09/17 07:45 Room Air 03/09/17 07:03 36.8 92 20 137/81 (99) 96 Room Air 03/09/17 04:00 95 Room Air 03/09/17 04:00 36.4 93 20 142/88 (106) 96 Room Air 03/09/17 00:00 36.6 89 18 134/75 (94) 95 Room Air 03/09/17 00:00 95 Room Air 03/08/17 20:10 Room Air 03/08/17 19:26 36.7 97 18 137/75 (95) 95 Room Air 03/08/17 16:30 Room Air 03/08/17 15:45 36.8 96 18 138/75 (96) 96 Physical Exam General Appearance: WD/WN, no apparent distress Respiratory/Chest: lungs clear, no respiratory distress Cardiovascular: no murmur Abdomen: normal bowel sounds, non tender, soft, no organomegaly Laboratory Results Last 24 Hours Test 03/08/17 15:35 03/08/17 19:53 03/09/17 05:27 03/09/17 07:28 Bedside Glucose 146 mg/dl 237 mg/dl 217 mg/dl White Blood Count 24.92 K/uL Red Blood Count 3.58 M/uL Hemoglobin 10.3 g/dL Hematocrit 33.8 % Mean Corpuscular Volume 94.4 fL Mean Corpuscular Hemoglobin 28.8 pg Mean Corpuscular Hemoglobin Concent 30.5 g/dl RDW Standard Deviation 50.9 fL RDW Coefficient of Variation 14.8 % Platelet Count 762 K/uL Mean Platelet Volume 9.4 fL Sodium Level 141 mmol/L Potassium Level 3.8 mmol/L Chloride Level 104 mmol/L Carbon Dioxide Level 34 mmol/L Anion Gap 3.0 mmol/L Blood Urea Nitrogen 21 mg/dl Creatinine 0.80 mg/dl Est Creatinine Clear Calc Drug Dose 89.5 ml/min Estimated GFR () 105.6 Estimated GFR (Non- 91.1 BUN/Creatinine Ratio 26.2 Random Glucose 199 mg/dl Calcium Level 7.9 mg/dl Total Bilirubin 0.2 mg/dl Aspartate Amino Transf (AST/SGOT) 12 U/L Alanine Aminotransferase (ALT/SGPT) 12 U/L Alkaline Phosphatase 275 U/L C-Reactive Protein 7.17 mg/dl Total Protein 6.7 gm/dl Albumin 1.4 gm/dl Globulin 5.3 gm/dl Albumin/Globulin Ratio 0.3 Test 03/09/17 11:21 Bedside Glucose 225 mg/dl Assessment and Plan Heme positive stool--continue PPI in case this is peptic...not good candidate for EGD or colonoscopy given IL so would avoid for now unless has brisk bleeding , can be referred back to GI as outpt. diarrhea--Cdiff neg times 2, cx neg, Giardia neg , O/P, WBC neg, pancreas atrophy on CT so could be pancreas insufficiency as well--at this point seems controlled on Questran Anemia--follow H and H, B12 high, folate low, ferritin elevated elevated ferritin repeat when acute illness resolved acute phase reactant and hemochromatosis in the differential Folate deficiency--supplement elevated alk phos--slight trend upward dilated intrahepatic ducts on CT A/P--- MRCP gallstones in GB but nl bile duct and PD. other problems per hospitalist: IL, bacteremia, hydronephosis
--- NOTE | 2017-03-09 14:49 | Pharmacy Progress Note ---
Glycemic Control Progress Note Date of Service Mar 09, 2017. Scope Glycemic Pharmacist consulted for glycemic control to write orders per [facility] inpatient glycemic control protocol. Objective Accuchecks BSG (last 24hrs): Test 03/08/17 15:35 03/08/17 19:53 03/09/17 05:27 03/09/17 07:28 Bedside Glucose 146 mg/dl (70-99) 237 mg/dl (70-99) 217 mg/dl (70-99) Random Glucose 199 mg/dl (70-99) Test 03/09/17 11:21 Bedside Glucose 225 mg/dl (70-99) HbA1c: Test 03/03/17 04:42 Hemoglobin A1c 8.6 % (4.5-5.6) H Recent Pertinent Medications The patient is currently receiving: * Basal insulin: NPH 30 units every 24 hours * Correctional Insulin: Novolog Correction per scale ACHS Goal Range: Low 110 mg/dL - High 140 mg/dL Correction Factor: 20 mg/dL/unit * Prandial insulin: Per carb ratio of 1 unit per 8 grams CHO consumed Outpatient Anti-Diabetic Meds Oral Agents * Metformin 1g PO BID Basal Insulin * Lantus 30 units SQ HS Assessment & Plan ASSESSMENT: * See progress note from 03/06/17 for more background info, in short: * Pt receiving SQ basal bolus insulin regimen for hyperglycemia secondary to baseline DM (outpatient regimen on hold) & stress/infection * Pt changed from Lantus to NPH on 03/05 due to persistent overnight hypoglycemia despite dose titration. * Attempted to manage pt on NPH, however, once daily dosing has proven to be inadequate (BSGs become elevated in the evening). Trying to avoid twice daily dosing of basal insulin due to non-compliance at home. Hospitalist plans to discharge patient on Lantus so I will begin transition back * BSGs ranging 146 - 237 mg/dl over the past 24hrs * Patient received 67 units of insulin * 30 units of basal * 37 units of bolus * Changes needed to insulin regimen: * AM Fasting BSG elevated today at 217 mg/dl. I am surprised by this since patient received 50% more NPH yesterday. This may be delayed effect of lack of basal insulin on previous days when pt was NPO for procedures. Will change back to Lantus tomorrow as explained above. Start with 30 units daily since doses of 35-50 units daily produced hypoglycemia. * Post-prandial BSGs were improving overall, however, they began to fluctuate yesterday despite tightening CF/CR. Of note, patient started Boost TIDM 9/2 pm. Boost contains 20g of carbohydrates that were not being covered with Novolog. Also patient ordered a regular + T2DM diet. I have removed the regular diet and discussed with the patient' s nurse the need to cover Boost with Novolog. Will only slightly tighten CF/CR this morning since I attribute hyperglycemia to lack of insulin coverage. May need to resume 22/02 as basal insulin reaches steady state. PLAN FOR INPATIENT GLYCEMIC CONTROL: * Resume metformin 1000 mg PO BID since patient will be discharged once bed available at * Basal insulin * NPH 35 units SQ this am * NPH 5 units SQ with dinner if BSG is >140 mg/dL * Start Lantus 30 units SQ qAM tomorrow * Novolog insulin ACHS * Tighten correction factor to 18 mg/dl/unit * Tighten carb ratio to 1 unit per 6 grams CHO consumed * Continue goal range of Low 110 mg/dL - High 140 mg/dL RECOMMENDATIONS FOR DISCHARGE: * May consider resuming home regimen of Lantus 30 units SQ HS + metformin 500 mg PO BID on discharge as long as he is not experiencing hypoglycemic episodes. Titrate per outpatient provider. * Please note that the plan above was derived based on current level of insulin resistance and hospital stress. These recommendations are appropriate for inpatient admission only. Plan of care upon discharge will need to be reassessed to avoid potential outpatient hypo/hyperglycemia. Thank you.
[2017-03-09] MEDS: METFORMIN HCL 500 MG TAB PO SCH (17:19)
[2017-03-10] MEDS: ACETAMINOPHEN 325 MG TAB PO PRN ×3 (00:01→13:22)
[2017-03-10 00:04] VITALS: BP 120/68; PULSE 69; TEMP 37.1; O2SAT 93
[2017-03-10] MEDS ORDERED: INSULIN ASPART 100 UNITS/ML 3 ML PEN SC SCH (02:00)
[2017-03-10 03:17] VITALS: BP 112/59; PULSE 89; TEMP 36.8; O2SAT 93
[2017-03-10 07:18] VITALS: BP 143/85; PULSE 92; TEMP 36.4; O2SAT 96
[2017-03-10] MEDS: ATORVASTATIN 40 MG TAB PO SCH (08:33)
[2017-03-10] MEDS: METOPROLOL TARTRATE 25 MG TAB PO SCH (08:33)
[2017-03-10] MEDS: LACTOBACILLUS ACIDOPHILUS (FLORANEX) TAB PO SCH ×2 (08:33→12:30)
[2017-03-10] MEDS: METFORMIN HCL 500 MG TAB PO SCH (08:33)
[2017-03-10] MEDS: CLOPIDOGREL BISULFATE 75 MG TAB PO SCH (08:33)
[2017-03-10] MEDS: PANTOprazole SOD 40 MG TAB PO SCH (08:33)
[2017-03-10] MEDS: ASPIRIN 81 MG ECTAB PO SCH (08:33)
[2017-03-10] MEDS: THIAMINE HCL 100 MG TAB PO SCH (08:33)
[2017-03-10] MEDS: BOOST GLUCOSE CONTROL PO SCH ×2 (08:33→12:30)
[2017-03-10] MEDS: MULTIVITAMIN TAB PO SCH (08:33)
[2017-03-10] MEDS: TAMSULOSIN HCL 0.4 MG CAP PO SCH (08:33)
[2017-03-10] MEDS: ENOXAPARIN 40 MG/0.4 ML SYR SQ SCH (08:34)
[2017-03-10] MEDS: CHOLECALCIFEROL 1000 INTER.UNIT TAB PO SCH (08:34)
[2017-03-10] MEDS: CYANOCOBALAMIN 500 MCG TAB (VIT B-12) PO SCH (08:34)
[2017-03-10] MEDS: LISINOPRIL 2.5 MG TAB PO SCH (08:34)
[2017-03-10] MEDS: INSULIN ASPART 100 UNITS/ML 3 ML PEN SC SCH ×2 (08:37→12:40)
[2017-03-10] MEDS ORDERED: INSULIN GLARGINE SOLOSTAR 100 UNITS/ML 3 ML PEN SC SCH (09:00)
--- NOTE | 2017-03-10 09:20 | Discharge Summary ---
Discharge Summary Date of Service Mar 10, 2017. (Rafael Cowart M.D.) Discharge Summary Admission Date: Feb 27, 2017 at 15:33 Discharge Date: Mar 10, 2017 Discharge Disposition: Rehab Principal Diagnosis: sepsis Problems/Secondary Diagnoses: UTI post obstructive MACY Prostatitis Right elbow abscess diarrhea anemia NSTEMI Systolic CHF BPH Diabetes with DKA and hypoglycemia Procedures: Procedures: MRCP - cholelithiasis only Orthopedics - abscess below triceps tendon I&D MRI R elbow Chest x-ray Abd/pelvis Ct Renal US ECHO Consultations: Cardiology ID GI Heme/Onc Orthopedics Intensivists [facility]rology Pharm[facility] (Rafael Cowart M.D.) Discharge Exam Review of Systems: Constitutional: No fever Respiratory: + shortness of breath Cardiovascular: No chest pain Abdomen: No pain, No nausea, No vomiting Musculoskeletal: + joint pain, + problem reported (back pain, mild r elbow pain - improved) Neurologic: No problem reported Physical Exam: General Appearance: no apparent distress Eyes: normal inspection Respiratory/Chest: lungs clear, normal breath sounds, no respiratory distress Cardiovascular: + tachycardia Abdomen / GI: normal bowel sounds, non tender, soft Extremities: normal inspection, no pedal edema Neurologic/Psychiatric: alert, oriented x 3 (Rafael Cowart M.D.) Hospital Course 67 yo male admitted to the ICU with Septic shock 2/2 to urosepsis, post obstructive MACY. Currently with persistently elevated WBC despite negative urine and repeat blood cultures, neg C. diff toxins. Likely from R elbow abscess which was drained by ortho 03/06. Now with decreasing WBC. Possible filling defect from dilated hepatic duct contributing to elevated WBC ruled out by MRCP given nl bile duct and PD with only notable gallstones. Septic shock Secondary to UTI with underlying obstructive uropathy. Pt had a recent hospitalization for UTI/Prostatitis. Pt had 1 positive culture with Staph Aureus and a positive UCx with MSSA Staph Aureus 2/2 septicemia from source. Per ID, initially treated with empirically with Vancomycin and Zosyn which was later narrowed to Rocephin for 2 weeks. Central line was placed and removed. Stopped pressors 03/01. WBC uptrended again and continued to be elevated. Repeat blood cultures were obtained and negative. Oncology consulted suggested cytosis & leukocytosis reactive to sepsis given normal spleen and lack of L shift. Prostatitis also considered but UCx negative despite minor abnormalities in UA. Given dilated hepatic duct on CT MRCP was completed on 03/07 to rule out a possible filling defect as a source of elevated WBC, which only showed gallstones and normal bile dict and PD. Pt also had R elbow pain, swelling, erythema and warmth s/p injuring elbow during fall prior to presentation. Ortho evaluated and initially believed likely traumatic hematoma/inflammation causing discomfort. Per ID recommendation, MRI R elbow ordered to r/ot septic arthritis/ osteomyelitis given continued symptoms and elevated WBC which rules out septic arthritis and osteomyelitis and suggested abscess or reactive fluid separate from joint, superficial and proximal to olecranon. I&D by orthopedics on 03/06 with a pound of drainage. Abscess culture growing pansensitive staph aureus. Drain was removed by ortho and dressing changed and recommended f/u in 2 weeks for wound check/suture removal or sooner if worsening of symptoms/not improving. Ortho monitored R middle finger pain and swelling, Kanavel's sign was negative and was not concerned about septic flexor tenosynovitis. Per ID, continue on Rocephin for 6 weeks post I&D with tentative stop date of 04/17, obtained a PICC line and will check weekly cbc, cmp, and esr while on Rocephin. Currently WBC down trending and patient HD stable. -WBC 28.62 - 03/08 - downtrending to 24.92 - PICC Line in place Recommendation: - F/u on pending myeloproliferative neoplasm molecular genetic study - Administer Rocephin 2g daily via PICC line until 04/17 - today is day 8 - Please check weekly CBC, CMP and ESR while on Rocephin per ID - F/u with ID in 2 weeks R elbow - Sling for comfort with RUE when up - Ice initially and switch to warm moist heating pad in several days. - Increase range of motion of right elbow as tolerated - Continue flexion/extension exercises of fingers/hand/wrist regularly - Keep arm/hand elevated as much as possible. - May shower, no tub baths. Keep incision clean and dry. Dressing changes as needed. - Please continue Rocephin (as above) GI/Diarrhea C.diff negative x 2. GI also ordered WBC smear (neg), shiga toxin, Campylobacter and salmonella stool cultures which were all negative. Possibly antibiotic related, probiotics initiated which might have helped decrease frequency to 3x/day from 6x/day. Per GI, could also be from pancreatic insufficiency given pancreatic atrophy on CT. Alk phos elevated but continues to downtrend (275 - 03/09). Given dilated HD on Ct, MRCP to rule out intra and extra hepatic biliary duct dilation or filling defect completed on 03/07, revealed only cholelithiasis and normal bile and pancreatic duct. GI recommended no treatment, asymptomatic at this point will follow alk phos. Recommendations: -Continue probiotics and cholestyramine -Follow alkaline phosphatase on a weekly basis -GI f/u in 2 weeks Improving Anemia Present on arrival but considered dilutional. Also had hematuria which resolved during admission. Received 2 units on 02/28 for 7.5 Hgb. Hgb downtrending again on 03/02 to 7.4, transfused with 1 unit pRBCs. GI consult placed for evaluation of GI source of bleeding given +heme occult but did not want to scope him given lack of active bleeding in light of acute illness. H&H improved and stabilized at about 10.3 and 33.8 as of 03/09 post latest transfusion. GI did not see the need for acute endoscopy and colonoscopy in the recent of NSTEMI despite positive heme occult given lack of symptoms, -Coags: INR 1.2 and PT 13.2 -H&H stable 10.3 & 33.8 as of 03/09 Recommendations: -Please obtain weekly CBCs transfuse if below 6.5 -Please continue PPI -F/u with GI in 2 weeks regarding outpatient EGD and colonoscopy and PPI to see if need to continue given increased risk for C.diff especially with while on antibiotic Rocephin. CHF - systolic EF: 35-40%. Not fluid overloaded, no edema, bibasilar crackles. Currently not on diuretics Recommendations: -Please continue to monitor fluid status NSTEMI 2/2 shock. Trops elevated x3. ECHO shows hypokinesis of the left ventricle. Continued to have tachycardia somewhat controlled on metoprolol 25mg BID -Per Cards stable for angiography in the next day or 2 but patient hesitant Recommendations: -Recommend continuing metoprolol 25mg BID, ASA 81mg, Plavis, Lisinopril 2.5mg QAM, and Atorvastatin 40mg -After removal of hallman if no increase in Cr can consider increasing Lisinopril to 10mg (previous home regimen) -F/u with cardiology in 2 weeks MACY 2/2 obstructive uropathy - resolved Per urology, repeat renal u/s showing some persistent hydro which is not uncommon in the setting of UR and will take a few weeks with hallman in place to resolve. Compared with previous KUB from December, calcification in the pelvis consistent, not left ureteral stone especially given afebrile. Hallman catheter for 2-4 weeks in the setting of UTI and likely prostatitis. Baseline Cr 1 -Cr improved to 0.80 - 03/09 Recommend: -Following weekly BMPs -Follow up with urology in [address] Allan -NOTE: Schedule for repeat renal u/s prior to TOV at urology follow up in 4 weeks post discharge with Dr. Allan BPH Recommend: -Continuing Flomax -Outpatient f/w with urology in 4 weeks -Outpatient cystoscope and TURP per urology Diabetes with DKA and hypoglycemia Pt came in with high sugars likely exacerbated by infection. Anion gap acidosis , elevated beta-hydroxybutyrate, normal lactic acid. PMHX DM2, noncompliant, HbA1c 8.6 (03/02). Was hypoglycemic during the night and hyperglycemic during the day so switched to NPH from Lantus. Switched back to Lantus in preparation for discharge on home regimen by pharmacy. Will d/c on home regimen. -30 units Lantus -On NovoLog SC: CF: 20 CHO ratio 1:8 -Goal: 110-140 Recommend: -Continuing home regimen of metformin and insulin 100 units -Monitor and adjust as needed DVT prophylaxis Lovenox was held for concerns of bleeding. Heparin initiated by associate merchandiser given benefits outweigh risks of GI bleed and patient was continued on it for the course of his admission. Dispo: To [facility] with PICC. Total Time Spent: Greater than 30 minutes This includes examination of the patient, discharge planning, medication reconciliation, and communication with other providers. (Rafael Cowart M.D.) Resident Physician Supervision Note: I interviewed and examined the patient. Discussed with Dr. Cowart and agree with findings and plan as documented in the note. Any exceptions or clarifications are listed here: None Documented By: Rigoberto Cortés see above, see blank progress note same date. stable for rehab Total Time Spent: Less than 30 minutes (Rigoberto Cortés D.O.) Discharge Instructions Please refer to the electronic Patient Visit Report (Discharge Instructions) for additional information. (Rafael Cowart M.D.) Additional Copies To Barb Gray M.D.
[2017-03-10] MEDS ORDERED: OXYCODONE HCL IR 5 MG TAB (IMMEDIATE RELEASE) PO SCH (09:30)
--- NOTE | 2017-03-10 09:51 | Anesthesiology Progress Note ---
Anesthesia Post Op Note Date & Time Mar 10, 2017 at 09:50 Vital Signs Pain Intensity: 0.0 Vital Signs Past 12 Hours Date Time Temp Pulse Resp B/P (MAP) Pulse Ox O2 Delivery O2 Flow Rate FiO2 03/10/17 07:45 Room Air 03/10/17 07:18 36.4 92 18 143/85 (104) 96 Room Air 03/10/17 04:00 Room Air 03/10/17 03:17 36.8 89 20 112/59 (76) 93 Room Air 03/10/17 00:04 37.1 69 18 120/68 (85) 93 Room Air 03/10/17 00:00 Room Air Notes Mental Status: alert / awake / arousable, participated in evaluation Pt Amnestic to Procedure: Yes Nausea / Vomiting: adequately controlled Pain: adequately controlled Airway Patency, RR, SpO2: stable & adequate BP & HR: stable & adequate Hydration State: stable & adequate Anesthetic Complications: no major complications apparent
[2017-03-10] MEDS: CHOLESTYRAMINE LIGHT 4 GM PKT PO SCH (10:00)
[2017-03-10 10:07] LABS: NEO CAL-R MOLECULAR See Separate Report; NEO JAK2 MUT EXON 12 MOLECULAR See Separate Report; NEO MPL W515 See Separate Report
[2017-03-10] MEDS: PSYLLIUM 58.6% PWD PACK S\\F PO SCH (10:15)
[2017-03-10 11:13] VITALS: BP 130/72; PULSE 81; TEMP 36.8; O2SAT 98
[2017-03-10] MEDS: CEFTRIAXONE SOD INJ 2,000 MG in DEXTROSE 5% 50ML 50 ML IV SCH (12:31)
[2017-03-10 13:07] VITALS: BP 130/72; PULSE 81; TEMP 36.8; O2SAT 98
--- NOTE | 2017-03-10 16:48 | Progress Note ---
Progress Note Date of Service Mar 10, 2017. Progress Note feeling weak. sitting in chair though! some "hip pain" points to buttocks - worse w movement. ok w going to [facility]. understands the need for rehab. vitals noted nad breathing unlabored. pain L buttock to deep palpation and to internal rotation of leg, but no groin pain no bruising no crepitis. no calf tenderness sepsis from UTI due to urinary retention from BPH - improving. stable for [facility]. plan as per yesterday's discharge summary
--- NOTE | 2017-03-11 04:25 | GASTROENTEROLOGY PROGRESS NOTE ---
DATE: 03/10/2017 SUBJECTIVE: The patient was seen today. He is actually more alert than he was last week when I was seeing him. The nursing reports that although he had 3 bowel movements today as of approximately noon, these were all substantially more formed than they had passed in the past. No evidence of bleeding. The patient is planned to be transferred to [facility]. The patient reports oral intake, that is not bothersome without nausea or vomiting. The patient denies any fever or shaking chills. The patient continues for treatment for his staphylococcus bacteremia for a urinary sepsis due to BPH. LABORATORY STUDIES: Last available are from March 09, at which point white count was 24.9, hemoglobin 10.3, platelets 762, 000. Potassium 3.8, BUN and creatinine are 21 and 0.8. MEDICATIONS: Reviewed. The patient had a negative Giardia antigen on March 03. PHYSICAL EXAMINATION: GENERAL: The patient is awake, alert and oriented and resting comfortably in bed. HEENT: Sclerae are anicteric. Conjunctivae are moist. HEART: Normal S1, S2. LUNGS: Clear to auscultation overall. ABDOMEN: Soft, nontender, nondistended with good bowel sounds. EXTREMITIES: There was trace edema bilaterally. RECTAL: Deferred. IMPRESSION: The patient admitted for a Methicillin-sensitive Staphylococcus aureus bacteremia due to urinary obstruction. There is also a right elbow collection. White count, although elevated yesterday, is slightly improved compaed with yesterday. Stools have actually responded to current therapy and are more formed today. Anticipated plan is for discharge to [facility] later this afternoon. If the stools patterns return with a loose stool and the patient is able to undergo evaluation, consideration for colonoscopy is reasonable. Please let us know if these symptoms return and I will be happy to make arrangements to reevaluate the patient. Pt reported that he never had a colonoscopy and this should be performed once stable. Thank you for allowing us to participate in this patient's care. ANDERS
[2017-03-12 14:56] LABS: O&P SOURCE OTHER-STOOL
== END 2017-03-10 15:35 | DRG 853 ==
LOC: EDBD 11:49 → C.EDC 11:50 → C.2T 15:33 → ENRESERV 15:40 → C.2T 19:42 → C.MSICU 21:35 → ENRESERV 03-03 14:59 → C.2E 03-03 16:04 → EDBEDREQ 03-04 13:02 → ENRESERV 03-04 14:14 → C.MED 03-04 16:39
PROVIDERS: ADMIT Family Medicine; ATTEND Family Medicine
PROC: 05HN33Z Insertion of Infusion Device into Left Internal Jugular Vein, Percutaneous Approach (ICD-10-PCS; 2017-02-27)
PROC: 0J9D0ZX Drainage of Right Upper Arm Subcutaneous Tissue and Fascia, Open Approach, Diagnostic (ICD-10-PCS; principal; 2017-03-06 10:45)
PROC: 0JBD0ZZ Excision of Right Upper Arm Subcutaneous Tissue and Fascia, Open Approach (ICD-10-PCS; principal; 2017-03-06 10:45)
PROC: 02HV33Z Insertion of Infusion Device into Superior Vena Cava, Percutaneous Approach (ICD-10-PCS; 2017-03-08)
DX: A41.01 Sepsis due to Methicillin susceptible Staphylococcus aureus (principal); N39.0 Urinary tract infection, site not specified; R65.21 Severe sepsis with septic shock; I21.4 Non-ST elevation (NSTEMI) myocardial infarction; E13.10 Other specified diabetes mellitus with ketoacidosis without coma; N17.9 Acute kidney failure, unspecified; N13.1 Hydronephrosis with ureteral stricture, not elsewhere classified; E87.1 Hypo-osmolality and hyponatremia; E87.2 Acidosis; I50.20 Unspecified systolic (congestive) heart failure; M00.021 Staphylococcal arthritis, right elbow; N40.1 Benign prostatic hyperplasia with lower urinary tract symptoms; R33.8 Other retention of urine; N41.9 Inflammatory disease of prostate, unspecified; D47.3 Essential (hemorrhagic) thrombocythemia; R19.7 Diarrhea, unspecified; D64.9 Anemia, unspecified; K80.20 Calculus of gallbladder without cholecystitis without obstruction; E87.5 Hyperkalemia; I10 Essential (primary) hypertension; E55.9 Vitamin D deficiency, unspecified; R39.11 Hesitancy of micturition; Z51.81 Encounter for therapeutic drug level monitoring; Z79.899 Other long term (current) drug therapy; Z79.4 Long term (current) use of insulin; Z79.82 Long term (current) use of aspirin; Z87.891 Personal history of nicotine dependence; Z91.81 History of falling

== ENCOUNTER → 2017-03-27 | Outpatient (CLI) | payer OTHER, BC ==
[~2017-03-27] MED LIST changes: +ACET-1256 PO; -ATEN50TA8 PO; +CEFT1INJ6 IV; -CHOL1000 PO; +CHOL100010 PO; -CYAN100020 PO; +CYAN10005 PO; -ERGO1CAP41 PO; +FLV1 PO; -HYDR25TA4 PO; +HYDR25TA5 PO; +INSDGIPEN SC; -KFL500 PO; +LCTX PO; -LISI-461 PO; +LPR25 PO; +LPT40 PO; +LSN25 PO; +PLV75 PO; +PRT40 PO; +QSTP PO; +TAMS0.4C38 PO; -VITA1TAB12 PO; +VTME100 PO
== END | disposition home or self-care (01) ==
LOC: C.LABSPEC 17:33
PROVIDERS: ATTEND Orthopaedic Surgery
DX: L02.511 Cutaneous abscess of right hand (principal)

== ENCOUNTER 2017-05-11 17:06 | Inpatient (IN) | payer BC, OTHER ==
[~2017-05-11] VITALS: Ht 182.9 cm; Wt 61.7 kg
[~2017-05-11 17:06] MED LIST changes: -CEFT1INJ6 IV
--- NOTE | 2017-05-11 17:14 | EMERGENCY ROOM VISIT NOTE ---
History Report prepared by Destiny: Guillermina Brand Under the Supervision of: Dr. Vinicius Blake M.D. First contact with patient: 17:06 Stated Complaint: WEKANESS History of Present Illness The patient is a 67 year old male who presents to the Emergency Room with complaints of constant weakness beginning today. The patient states that he has been seen here multiple times recently and was last seen here one month ago. He reports that his visits started with a UTI and after his last visit he was discharged to [facility] and started using a walker. He notes that he lives at home now and today he fell when his walker tipped over. The patient complains of feeling very weak and weight loss. He denies any chest pain, headache, melena , bloody stools, shortness of breath, abdominal pain, changes in eating, and fever. The patient notes that he has a history of hypertension and diabetes that he is on metformin for. He has a catheter. Source of History: patient Onset: today Position: other (global) Quality: other (weakness) Timing: constant Associated Symptoms: No fevers, No headache, No chest pain, No SOB, No abdominal pain, No melena Note: The patient complains of weight loss. He denies any bloody stools, changes in eating. Review of Systems See HPI for pertinent positives & negatives. A total of 10 systems reviewed and were otherwise negative. Past Medical & Surgical Medical Problems: (1) Abscess (2) Hypertension (3) Leukocytosis (4) MSSA (methicillin susceptible Staphylococcus aureus) septicemia (5) Sepsis (6) Urinary tract infection Family History No pertinent family history stated. Social History Marital Status: single Housing Status: lives alone Occupation Status: employed Current/Historical Medications Scheduled Aspirin (Aspirin Ec), 81 MG PO DAILY Atorvastatin (Atorvastatin Calcium), 40 MG PO QAM Cholecalciferol (Vitamin D), 1,000 UNITS PO DAILY Clopidogrel Bisulfate (Clopidogrel), 75 MG PO QAM Cyanocobalamin (Vitamin B-12), 1,000 MCG PO DAILY Folic Acid (Folic Acid), 1 MG PO QAM Hydrochlorothiazide (Hydrochlorothiazide), 12.5 MG PO DAILY Insulin Glargine (Lantus Solostar), Unknown Dose SC QPM Lisinopril (Lisinopril), 2.5 MG PO QAM Metformin Hcl (Glucophage), 1,000 MG PO BID Methenamine Hippurate (Methenamine Hippurate), 1 GM PO DAILY Metoprolol Tartrate (Lopressor), 25 MG PO BID Pantoprazole (Pantoprazole Sodium), 40 MG PO QAM Tamsulosin Hcl (Flomax), 0.4 MG PO DAILY Tocopheryl Acet,Dl-Alpha (Vitamin E), 100 UNITS PO DAILY Allergies Coded Allergies: No Known Allergies (Unverified , 02/27/17) Physical Exam Vital Signs Date Time Temp Pulse Resp B/P (MAP) Pulse Ox O2 Delivery O2 Flow Rate FiO2 05/11/17 20:09 87 20 91/49 95 Room Air 05/11/17 18:39 89 20 99/48 97 Room Air 05/11/17 17:23 90 05/11/17 17:17 36.8 96 20 97/63 98 Room Air Physical Exam GENERAL: Patient is severely unwell appearing, tired appearing, pale, and cachectic. HEENT: No acute trauma, normocephalic atraumatic, mucous membranes moist, no nasal congestion, no scleral icterus, pale conjunctiva. NECK: No stridor, no adenopathy, no meningismus, trachea is midline. LUNGS: No dyspnea. Clear to auscultation and equal bilaterally. No wheeze, no rhonchi. HEART: Regular rate and rhythm. No murmurs, rubs, gallops appreciated. ABDOMEN: Soft, nontender, bowel sounds positive, no masses appreciated, no peritonitis. BACK: No midline tenderness, no CVA tenderness EXTREMITIES: Severe wasting of arms and legs, skin breakdown of the left knee, no cyanosis, no edema. NEUROLOGIC: Alert and oriented, no acute motor or sensory deficits, no focal weakness, cranial nerves grossly intact. SKIN: No rash, no jaundice, no diaphoresis. Medical Decision & Procedures ER Provider Diagnostic Interpretation: Radiology results and stated below per my review and radiologist interpretation: SINGLE VIEW CHEST FINDINGS: An AP, portable, upright chest radiograph is compared to study dated 03/08/2017. The examination is significantly degraded by portable technique and patient rotation. The heart is top normal for projection and there is atherosclerotic calcification of the thoracic aorta. The pulmonary vasculature is noncongested. The lungs and pleural spaces are clear. No pneumothorax is seen. The skeletal structures are osteopenic. The bony thorax is grossly intact. IMPRESSION: No acute cardiopulmonary abnormality. Electronically signed by: Moi Almazan M.D. 05/11/2017 6:02 PM Dictated Date/Time: 05/11/2017 6:01 PM Laboratory Results 05/11/17 18:28 Red Blood Count 4.14, Mean Corpuscular Volume 90.8, Mean Corpuscular Hemoglobin 28.3, Mean Corpuscular Hemoglobin Concent 31.1, Mean Platelet Volume 10.4, Neutrophils (%) (Auto) 81.8, Lymphocytes (%) (Auto) 10.6, Monocytes (%) (Auto) 6.5, Eosinophils (%) (Auto) 0.5, Basophils (%) (Auto) 0.2, Neutrophils # (Auto) 10.67, Lymphocytes # (Auto) 1.38, Monocytes # (Auto) 0.85, Eosinophils # (Auto) 0.07, Basophils # (Auto) 0.02 05/11/17 18:28 Test 05/11/17 17:13 05/11/17 18:28 White Blood Count 13.04 K/uL (4.8-10.8) Red Blood Count 4.14 M/uL (4.7-6.1) Hemoglobin 11.7 g/dL (14.0-18.0) Hematocrit 37.6 % (42-52) Mean Corpuscular Volume 90.8 fL (80-100) Mean Corpuscular Hemoglobin 28.3 pg (25-34) Mean Corpuscular Hemoglobin Concent 31.1 g/dl (32-36) Platelet Count 400 K/uL (130-400) Mean Platelet Volume 10.4 fL (7.4-10.4) Neutrophils (%) (Auto) 81.8 % Lymphocytes (%) (Auto) 10.6 % Monocytes (%) (Auto) 6.5 % Eosinophils (%) (Auto) 0.5 % Basophils (%) (Auto) 0.2 % Neutrophils # (Auto) 10.67 K/uL (1.4-6.5) Lymphocytes # (Auto) 1.38 K/uL (1.2-3.4) Monocytes # (Auto) 0.85 K/uL (0.11-0.59) Eosinophils # (Auto) 0.07 K/uL (0-0.5) Basophils # (Auto) 0.02 K/uL (0-0.2) RDW Standard Deviation 53.7 fL (36.4-46.3) RDW Coefficient of Variation 16.4 % (11.5-14.5) Immature Granulocyte % (Auto) 0.4 % Immature Granulocyte # (Auto) 0.05 K/uL (0.00-0.02) Prothrombin Time 10.7 SECONDS (9.0-12.0) Prothromb Time International Ratio 1.0 (0.9-1.1) Activated Partial Thromboplast Time 26.1 SECONDS (21.0-31.0) Partial Thromboplastin Ratio 1.0 Anion Gap 14.0 mmol/L (3-11) Est Creatinine Clear Calc Drug Dose 17.1 ml/min Estimated GFR () 18.3 Estimated GFR (Non- 15.8 BUN/Creatinine Ratio 19.4 (10-20) Calcium Level 9.0 mg/dl (8.5-10.1) Phosphorus Level 6.0 mg/dl (2.5-4.9) Magnesium Level 1.9 mg/dl (1.8-2.4) Total Bilirubin 0.6 mg/dl (0.2-1) Direct Bilirubin 0.2 mg/dl (0-0.2) Aspartate Amino Transf (AST/SGOT) 12 U/L (15-37) Alanine Aminotransferase (ALT/SGPT) 18 U/L (12-78) Alkaline Phosphatase 84 U/L (45-117) Total Creatine Kinase 37 U/L (39-308) Creatine Kinase MB 1.9 ng/ml (0.5-3.6) Creatine Kinase MB Ratio 5.1 (0-3.0) Troponin I 0.016 ng/ml (0-0.045) Total Protein 8.0 gm/dl (6.4-8.2) Albumin 3.1 gm/dl (3.4-5.0) Lipase 138 U/L (73-393) Laboratory results as reviewed by me. Medications Administered Medications (Trade) Dose Ordered Sig/Nilda Route Start Time Stop Time Status Last Admin Dose Admin Sodium Chloride 1,000 ml @ 999 mls/hr Q1H1M STAT IV 05/11/17 20:10 05/11/17 21:10 DC 05/11/17 20:10 999 MLS/HR ECG Indication: weakness Rate (beats per minute): 91 Rhythm: normal sinus Findings: no acute ischemic change, no ectopy ED Course 1705: The patient was evaluated in room C5. A complete history and physical exam was performed. 1829: I reevaluated the patient. Lab is currently drawing his blood and he is in no distress. 2010: Sodium Chloride 1000 ml @ 999 mls/hr IV. 2013: I reevaluated the patient. He is agreeable to coming into the hospital and is stable. 2025: Discussed the patient's case with Dr. Jerry. The patient will be evaluated for further treatment and disposition. 2031: Upon reevaluation, the patient is doing well. Discussed results and treatment plan with the patient. He verbalized understanding and agreement with the treatment plan. The patient will be evaluated for further management. Medical Decision Differential: Sepsis, Infectious (UTI/Pneumonia/Meningitis/etc), Metabolic/ Electrolyte Abnormality, Cardiac, Hepatic, Endocrine, Toxicologic, Neurologic, amongst other pathologies entertained. 67 yr old male with acutely worsening weakness who is clearly chronically unwell and is quite malnutritioned and cachectic. He is dehydrated and anuric on arrival. Labs consistent with acute renal failure and thus I gave him initial 1 L NSS bolus and will bring in to hospitalist service. Minor WBC elevation which is likely dehydration as no fevers and CXR clear. With no urine though tough to rule out UTI and will be monitored by hospitalist. He furthermore has pressure wounds that will need for further evaluation/treatment. Medication Reconcilliation Current Medication List: was personally reviewed by me Blood Pressure Screening Patient's blood pressure: Low blood pressure Blood pressure disposition: Did not require urgent referral Consults Time Called: 2019 Consulting Physician: Dr. Jerry Returned Call: 2025 Discussed the patient's case with Dr. Jerry. The patient will be evaluated for further treatment and disposition. Impression Primary Impression: ARF (acute renal failure) Additional Impressions: Dehydration Generalized weakness Scribe Attestation The scribe's documentation has been prepared under my direction and personally reviewed by me in its entirety. I confirm that the note above accurately reflects all work, treatment, procedures, and medical decision making performed by me. Departure Information Dispostion Being Evaluated By Hospitalist Problem Qualifiers
[2017-05-11] MEDS ORDERED: METH-1305 PO (17:30)
--- NOTE | 2017-05-11 18:03 | DIAGNOSTIC IMAGING REPORT ---
SINGLE VIEW CHEST CLINICAL HISTORY: Generalized weakness FINDINGS: An AP, portable, upright chest radiograph is compared to study dated 03/08/2017. The examination is significantly degraded by portable technique and patient rotation. The heart is top normal for projection and there is atherosclerotic calcification of the thoracic aorta. The pulmonary vasculature is noncongested. The lungs and pleural spaces are clear. No pneumothorax is seen. The skeletal structures are osteopenic. The bony thorax is grossly intact. IMPRESSION: No acute cardiopulmonary abnormality. Electronically signed by: Moi Almazan M.D. 05/11/2017 6:02 PM Dictated Date/Time: 05/11/2017 6:01 PM
[2017-05-11 19:21] LABS: BASO % 0.2 %; BASO ABS # 0.02 K/uL (0-0.2); COMPLETE YES; EOS % 0.5 %; HEMATOCRIT 37.6 % (42-52); IG% 0.4 %; LYMPH % 10.6 %; LYMPH ABS # 1.38 K/uL (1.2-3.4); MEAN CELL VOLUME 90.8 fL (80-100); MEAN CORPUSCULAR HEMOGLOBIN 28.3 pg (25-34); MEAN CORPUSCULAR HGB CONC 31.1 g/dl (32-36); MEAN PLATELET VOLUME 10.4 fL (7.4-10.4); MONO % 6.5 %; NEUT % 81.8 %; PLATELET COUNT 400 K/uL (130-400); RED BLOOD COUNT 4.14 M/uL (4.7-6.1); WHITE BLOOD COUNT 13.04 K/uL (4.8-10.8)
[2017-05-11 19:34] LABS: PROTHROMBIN TIME (PATIENT) 10.7 SECONDS (9.0-12.0)
[2017-05-11 19:55] LABS: BUN/CREATININE RATIO 19.4 (10-20); CREATININE 3.69 mg/dl (0.60-1.40); MAGNESIUM 1.9 mg/dl (1.8-2.4); POTASSIUM 5.2 mmol/L (3.5-5.1)
[2017-05-11 19:58] LABS: CKMB/CK RATIO 5.1 (0-3.0)
[2017-05-11] MEDS ORDERED: SODIUM CHLORIDE 0.9% 1000ML 1,000 ML IV STA (20:10)
[2017-05-11] MEDS ORDERED: ACETAMINOPHEN 325 MG TAB PO PRN (21:00)
[2017-05-11] MEDS ORDERED: POLYETHYLENE (MIRALAX) 17 GM PACK PO PRN (21:00)
[2017-05-11] MEDS: SODIUM CHLORIDE 0.9% 1000ML 1,000 ML IV SCH ×2 (21:00→23:55)
[2017-05-11] MEDS ORDERED: ONDANSETRON INJ 2 MG/ML 2 ML VIAL IV PRN (21:00)
--- NOTE | 2017-05-11 21:53 | History and Physical ---
History & Physical Date & Time of Service: May 11, 2017 at 21:37 Chief Complaint: [facility] Primary Care Physician: Barb Gray M.D. History of Present Illness Source: patient 67 y/o M Hx DM, CHF, CAD, protein malnutrition and chronic LE ulcers, anemia, BPH with obstructive uropathy and an indwelling Miller. Recent complex history as follows - admitted with DKA and UTI 12/20 - had degree of obstructive uropathy and required Miller placement - returned to hospital 02/19 with weakness and diagnosed with urosepsis - evolved into septic shock leading to a NSTEMI and diagnosis of CHF. Pt was evaluated by a visiting nurse today and was noted to be exceptionally weak although he did not necessarily agree with the assessment. Initial labs were obtained in the ER revealing ARF in addition to leukocytosis. The pt continues to require a Miller and states that he has been making urine and emptying his Miller bag regularly. We are pending a UA on admission. He has a borderline low BP which may be chronic, and is afebrile, although it is noted that he did not sport a fever during the previous admission for urosepsis. He denies lightheadedness, rigors or significant urethral pain. Past Medical/Surgical History 1) Urosepsis 02/19 - septic shock - MSSA 2) NSTEMI in context of septic shock - the pt had and echo 02/19 following troponin elevations which described mid basilar, inferior hypokinesis. He was advised on catheterization by cardiology but has refused thus far. 3) CHF was diagnosed 02/19 in context of septic shock - EF reported at 35-45% - he does not have a history of pulmonary edema. Reduced EF is likely chronic rather than due to sepsis as MSSA was the culprit. 4) BPH - obstructive uropathy and MACY - a TURP is eventually planned 5) Protein and multivitamin malnutrition - cause may be a poor diet 6) IDDM - history of DKA 12/20 - generally poorly controlled 7) Chronic normocytic anemia 8) Abscess of elbow 12/20 - required I&D and 6 week course of Abx - MSSA 9) Chronic lower extremity ulcers 10) History of prostatitis 11) Pt is undergoing evaluation for underlying myeloproliferative illness due to anemia and chronic leukocytosis. 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 Smoking Status: Former Smoker Drug Use: none Marital Status: single Occupational Status: employed Allergies Coded Allergies: No Known Allergies (Unverified , 02/27/17) Home Medications Scheduled Aspirin (Aspirin Ec), 81 MG PO DAILY Atorvastatin (Atorvastatin Calcium), 40 MG PO QAM Cholecalciferol (Vitamin D), 1,000 UNITS PO DAILY Clopidogrel Bisulfate (Clopidogrel), 75 MG PO QAM Cyanocobalamin (Vitamin B-12), 1,000 MCG PO DAILY Folic Acid (Folic Acid), 1 MG PO QAM Hydrochlorothiazide (Hydrochlorothiazide), 12.5 MG PO DAILY Insulin Glargine (Lantus Solostar), Unknown Dose SC QPM Lisinopril (Lisinopril), 2.5 MG PO QAM Metformin Hcl (Glucophage), 1,000 MG PO BID Methenamine Hippurate (Methenamine Hippurate), 1 GM PO DAILY Metoprolol Tartrate (Lopressor), 25 MG PO BID Pantoprazole (Pantoprazole Sodium), 40 MG PO QAM Tamsulosin Hcl (Flomax), 0.4 MG PO DAILY Tocopheryl Acet,Dl-Alpha (Vitamin E), 100 UNITS PO DAILY Review of Systems Constitutional: No fever, No chills, No sweats Eyes: No worsening of vision ENT: No hearing loss, No nasal symptoms Respiratory: No cough, No sputum, No wheezing Cardiovascular: No chest pain, No PND Abdomen: No pain, No nausea, No vomiting Musculoskeletal: No joint pain Genitourinary - Male: + problem reported (Chronic Miller), No hematuria, No dysuria Neurologic: + weakness, No memory loss Psychiatric: No depression symptoms Endocrine: No fatigue Hematologic / Lymphatic: No abnormal bleeding/bruising Integumentary: + problem reported (Shallow LE ulcers) Allergic / Immunologic: No environmental allergies Physical Exam Vital Signs Date Time Temp Pulse Resp B/P (MAP) Pulse Ox O2 Delivery O2 Flow Rate FiO2 05/11/17 21:34 98 20 123/74 100 Room Air 05/11/17 21:31 97 05/11/17 20:09 87 20 91/49 95 Room Air 05/11/17 18:39 89 20 99/48 97 Room Air 05/11/17 17:23 90 05/11/17 17:17 36.8 96 20 97/63 98 Room Air General Appearance: + pertinent finding (Cachectic-appearing middle-aged male in no acute distress) Head: normocephalic Eyes: normal inspection, EOMI ENT: normal ENT inspection, pharynx normal Neck: supple, no JVD Respiratory/Chest: chest non-tender, lungs clear, normal breath sounds Cardiovascular: regular rate, rhythm, no edema, no gallop Abdomen/GI: normal bowel sounds, non tender, soft Back: normal inspection, no CVA tenderness Extremities/Musculoskelatal: normal inspection, no calf tenderness, normal capillary refill 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, no motor/sensory deficits, alert, normal mood/affect, normal reflexes, oriented x 3 Skin: + pertinent finding Diagnostics Laboratory Results Results Past 24 Hours Test 05/11/17 17:13 05/11/17 18:28 Range/Units White Blood Count 13.04 4.8-10.8 K/uL Red Blood Count 4.14 4.7-6.1 M/uL Hemoglobin 11.7 14.0-18.0 g/dL Hematocrit 37.6 42-52 % Mean Corpuscular Volume 90.8 80-100 fL Mean Corpuscular Hemoglobin 28.3 25-34 pg Mean Corpuscular Hemoglobin Concent 31.1 32-36 g/dl Platelet Count 400 130-400 K/uL Mean Platelet Volume 10.4 7.4-10.4 fL Neutrophils (%) (Auto) 81.8 % Lymphocytes (%) (Auto) 10.6 % Monocytes (%) (Auto) 6.5 % Eosinophils (%) (Auto) 0.5 % Basophils (%) (Auto) 0.2 % Neutrophils # (Auto) 10.67 1.4-6.5 K/uL Lymphocytes # (Auto) 1.38 1.2-3.4 K/uL Monocytes # (Auto) 0.85 0.11-0.59 K/uL Eosinophils # (Auto) 0.07 0-0.5 K/uL Basophils # (Auto) 0.02 0-0.2 K/uL RDW Standard Deviation 53.7 36.4-46.3 fL RDW Coefficient of Variation 16.4 11.5-14.5 % Immature Granulocyte % (Auto) 0.4 % Immature Granulocyte # (Auto) 0.05 0.00-0.02 K/uL Prothrombin Time 10.7 9.0-12.0 SECONDS Prothromb Time International Ratio 1.0 0.9-1.1 Activated Partial Thromboplast Time 26.1 21.0-31.0 SECONDS Partial Thromboplastin Ratio 1.0 Sodium Level 133 136-145 mmol/L Potassium Level 5.2 3.5-5.1 mmol/L Chloride Level 96 98-107 mmol/L Carbon Dioxide Level 23 21-32 mmol/L Anion Gap 14.0 3-11 mmol/L Blood Urea Nitrogen 72 7-18 mg/dl Creatinine 3.69 0.60-1.40 mg/dl Est Creatinine Clear Calc Drug Dose 17.1 ml/min Estimated GFR () 18.3 Estimated GFR (Non- 15.8 BUN/Creatinine Ratio 19.4 10-20 Random Glucose 155 70-99 mg/dl Calcium Level 9.0 8.5-10.1 mg/dl Phosphorus Level 6.0 2.5-4.9 mg/dl Magnesium Level 1.9 1.8-2.4 mg/dl Total Bilirubin 0.6 0.2-1 mg/dl Direct Bilirubin 0.2 0-0.2 mg/dl Aspartate Amino Transf (AST/SGOT) 12 15-37 U/L Alanine Aminotransferase (ALT/SGPT) 18 12-78 U/L Alkaline Phosphatase 84 45-117 U/L Total Creatine Kinase 37 39-308 U/L Creatine Kinase MB 1.9 0.5-3.6 ng/ml Creatine Kinase MB Ratio 5.1 0-3.0 Troponin I 0.016 0-0.045 ng/ml Total Protein 8.0 6.4-8.2 gm/dl Albumin 3.1 3.4-5.0 gm/dl Lipase 138 73-393 U/L Impression Assessment and Plan 67 y/o M Hx DM, CHF, CAD, protein malnutrition and chronic LE ulcers, anemia, BPH with obstructive uropathy and an indwelling Miller. Recent complex history as follows - admitted with DKA and UTI 12/20 - had degree of obstructive uropathy and required Miller placement - returned to hospital 02/19 with weakness and diagnosed with urosepsis - evolved into septic shock leading to a NSTEMI and diagnosis of CHF - was evaluated by a visiting nurse today and was noted to be exceptionally weak although he did not necessarily agree with the assessment. Initial labs were obtained in the ER revealing ARF in addition to leukocytosis. We are pending a UA on admission. 1) ARF - He had been placed on several medications following DC 02/19 owing to new diagnosis of CHF and presumed CAD whic may have gradually had an adverse effect on his renal function - we will hold ASA, Plavix, Lisinopril, HCTZ, Metformin and provide IVF. A renal US is ordered - if there is evidence of further obstruction or worsening hydro we will consult urology - he states he feels his Miller is functioning. A FENa will be obtained and we will likely consult nephrology unless obstruction is clearly implicated. A BMP is ordered for AM. 2) Possible UTI - a UA is pending - broad spectrum antibiotics will be started if positive pending culture results owing to recent sepsis. 3) CHF - No evidence of overload - he will receive IVF and will need regular volume assessment - KORI, HCTZ held - cont B callie 4) CAD - no evidence of ACS - we have held related meds aside form a Statin due to ARF - he has thus far refused a cath which was recommended prior to recent DC and can f/u in the outpt setting if he has a change of heart 5) BPH - as above, a TURP was recommended eventually - can f/u with urology 6) DM - placed on SS and Lantus 7) Anemia and leukocytosis - as mentioned he was apparently being evaluated for a myeloproliferative disease - both have improved from recent values and will be trended - we are r/o infection in regards to the leukocytosis. 8) LE ulcers - appear to be healing well - follows with wound care Full code - Heparin prophylaxis Total time for this admit including review of labs, meds, imaging - discussion with pt and ER attending - 48 min Level of Care Med/Surg Resuscitation Status FULL RESUSCITATION VTE Prophylaxis VTE Risk Assessment Done? Y/N: Yes Risk Level: Moderate Given or contraindicated: Unfractionated heparin SQ
--- NOTE | 2017-05-11 22:22 | DIAGNOSTIC IMAGING REPORT ---
(RENAL)RETROPERITON COMP HISTORY: Renal failure hydronephrosis / ARF COMPARISON: 03/03/2017 FINDINGS: Right kidney: Maximum dimension 12.1 cm. Mild Cleveland process. Trace amount of debris. Normal corticomedullary differentiation and cortical thickness. Left kidney: Maximum dimension 12.7 cm. Moderate hydronephrosis. Trace debris. Normal corticomedullary differentiation and cortical thickness. Bladder: No bladder wall thickening. The bilateral ureteral jets were identified. IMPRESSION: 1. Mild/moderate bilateral renal hydronephrosis similar to the prior study. 2. Mild debris within the renal collecting systems raising the possibility of pyelonephritis. 3. This is similar compared to the prior study. The above report was generated using voice recognition software. It may contain grammatical, syntax or spelling errors. Electronically signed by: Stephen Marvin M.D. 05/11/2017 10:21 PM Dictated Date/Time: 05/11/2017 10:18 PM
[2017-05-11] MEDS ORDERED: GLUCAGON FOR INJ 1 MG VIAL SQ PRN (23:15)
[2017-05-11] MEDS ORDERED: GLUCOSE 40% GEL 15 GM TUBE PO PRN (23:15)
[2017-05-11] MEDS ORDERED: DEXTROSE 50% 50 ML SYR IV PRN (23:15)
[2017-05-11] MEDS ORDERED: GLUCOSE 10 TABS/TUBE PO PRN (23:15)
[2017-05-12 00:26] LABS: URINE APPEARANCE TURBID (CLEAR); URINE BILIRUBIN NEG (NEG); URINE COLOR ORANGE; URINE EPITHELIAL CELL AUTO >30 /lpf (0-5); URINE NITRITE NEG (NEG); URINE SPECIFIC GRAVITY 1.024 (1.000-1.030); UROBILINOGEN NEG (NEG); ZZURINE CULT IF INDIC CATH YES
[2017-05-12 00:30] VITALS: BP 105/65; PULSE 93; TEMP 36.4; O2SAT 100
[2017-05-12 00:31] LABS: MANUAL MICROSCOPIC REQUIRED? NO; REVIEW REQ? YES
[2017-05-12 01:09] LABS: URINE PATH CASTS 5-10 GRANULAR CASTS /lpf (0)
[2017-05-12 01:11] VITALS: BP 97/46; PULSE 101; TEMP 36.8; O2SAT 98; Ht 182.9 cm; Wt 61.7 kg
[2017-05-12] MEDS ORDERED: CEFEPIME CONSULT ACTIVE PRN ×2 (05:00)
[2017-05-12] MEDS: HEPARIN SOD 5000 UNIT/0.5 ML CARP SQ SCH ×2 (05:14→17:50)
[2017-05-12] MEDS ORDERED: CEFEPIME IV 2,000 MG in SYRINGE 7.5 ML IV ONE (05:15)
[2017-05-12] MEDS: INSULIN ASPART 100 UNITS/ML 3 ML PEN SC SCH ×4 (07:00→21:48)
[2017-05-12 08:01] LABS: BUN/CREATININE RATIO 19.8 (10-20); CALCIUM 8.2 mg/dl (8.5-10.1); CREATININE 3.78 mg/dl (0.60-1.40); MAGNESIUM 1.7 mg/dl (1.8-2.4); POTASSIUM 4.3 mmol/L (3.5-5.1)
[2017-05-12] MEDS: TAMSULOSIN HCL 0.4 MG CAP PO SCH (08:06)
[2017-05-12] MEDS: CYANOCOBALAMIN 500 MCG TAB (VIT B-12) PO SCH (08:06)
[2017-05-12] MEDS: ATORVASTATIN 40 MG TAB PO SCH (08:06)
[2017-05-12] MEDS: METOPROLOL TARTRATE 25 MG TAB PO SCH ×2 (08:06→21:00)
[2017-05-12] MEDS: PANTOprazole SOD 40 MG TAB PO SCH (08:06)
[2017-05-12 08:28] VITALS: BP 120/68; PULSE 88; TEMP 36.7; O2SAT 100
[2017-05-12] MEDS ORDERED: MAGNESIUM SULFATE 1GM / D5W 1 GM in PREMIXED IN D5W 100 ML IV ONE (09:00)
[2017-05-12] MEDS ORDERED: CEFEPIME IV 1,000 MG in DEXTROSE 5% 100ML 100 ML IV SCH (09:00)
[2017-05-12 09:22] LABS: HEMATOCRIT 33.1 % (42-52); MEAN CELL VOLUME 89.9 fL (80-100); MEAN CORPUSCULAR HEMOGLOBIN 28.5 pg (25-34); MEAN CORPUSCULAR HGB CONC 31.7 g/dl (32-36); MEAN PLATELET VOLUME 9.8 fL (7.4-10.4); PLATELET COUNT 356 K/uL (130-400); RED BLOOD COUNT 3.68 M/uL (4.7-6.1)
[2017-05-12] MEDS: SODIUM CHLORIDE 0.9% 1000ML 1,000 ML IV SCH ×2 (09:27→21:44)
--- NOTE | 2017-05-12 09:32 | Urology Consultation ---
History General Date of Service: May 12, 2017. Chief Complaint: MACY, bilateral hydro Primary Care Physician: Barb Gray M.D. Pt seen a urologist before?: Yes (Dr. Marrero) If yes, why?: urinary retention, bilateral hydro History of Present Illness 67 yo male presents to [facility] s/p fall. Noted to be in ARF with a Cr of 3.69. Baseline of 0.8 noted in March. consulted for urinary retention and bilateral hydro. The pt sees Dr. Marrero for these issues. He has a hx of UR with chronic indwelling hallman catheter and bilateral hydro. Hallman draining clear, yellow urine this morning. Pt denies any back pain. Cr noted to be 3.78 this morning. UC&S is pending. Imaging Imaging: Ultrasound Laboratory Last 24 Hours Test 05/11/17 18:28 05/11/17 21:30 05/11/17 23:46 05/12/17 05:29 White Blood Count 13.04 K/uL Red Blood Count 4.14 M/uL Hemoglobin 11.7 g/dL Hematocrit 37.6 % Mean Corpuscular Volume 90.8 fL Mean Corpuscular Hemoglobin 28.3 pg Mean Corpuscular Hemoglobin Concent 31.1 g/dl Platelet Count 400 K/uL Mean Platelet Volume 10.4 fL Neutrophils (%) (Auto) 81.8 % Lymphocytes (%) (Auto) 10.6 % Monocytes (%) (Auto) 6.5 % Eosinophils (%) (Auto) 0.5 % Basophils (%) (Auto) 0.2 % Neutrophils # (Auto) 10.67 K/uL Lymphocytes # (Auto) 1.38 K/uL Monocytes # (Auto) 0.85 K/uL Eosinophils # (Auto) 0.07 K/uL Basophils # (Auto) 0.02 K/uL RDW Standard Deviation 53.7 fL RDW Coefficient of Variation 16.4 % Immature Granulocyte % (Auto) 0.4 % Immature Granulocyte # (Auto) 0.05 K/uL Prothrombin Time 10.7 SECONDS Prothromb Time International Ratio 1.0 Activated Partial Thromboplast Time 26.1 SECONDS Partial Thromboplastin Ratio 1.0 Sodium Level 133 mmol/L Potassium Level 5.2 mmol/L Chloride Level 96 mmol/L Carbon Dioxide Level 23 mmol/L Anion Gap 14.0 mmol/L Blood Urea Nitrogen 72 mg/dl Creatinine 3.69 mg/dl Est Creatinine Clear Calc Drug Dose 17.1 ml/min Estimated GFR () 18.3 Estimated GFR (Non- 15.8 BUN/Creatinine Ratio 19.4 Random Glucose 155 mg/dl Calcium Level 9.0 mg/dl Phosphorus Level 6.0 mg/dl Magnesium Level 1.9 mg/dl Total Bilirubin 0.6 mg/dl Direct Bilirubin 0.2 mg/dl Aspartate Amino Transf (AST/SGOT) 12 U/L Alanine Aminotransferase (ALT/SGPT) 18 U/L Alkaline Phosphatase 84 U/L Total Creatine Kinase 37 U/L Creatine Kinase MB 1.9 ng/ml Creatine Kinase MB Ratio 5.1 Troponin I 0.016 ng/ml Total Protein 8.0 gm/dl Albumin 3.1 gm/dl Lipase 138 U/L Urine Color ORANGE Urine Appearance TURBID Urine pH 5.0 Urine Specific [place] 1.024 Urine Protein 3+ Urine Glucose (UA) NEG Urine Ketones TRACE Urine Occult Blood 3+ Urine Nitrite NEG Urine Bilirubin NEG Urine Urobilinogen NEG Urine Leukocyte Esterase LARGE Urine WBC (Auto) >30 /hpf Urine RBC (Auto) 10-30 /hpf Urine Hyaline Casts (Auto) 1-5 /lpf Urine Epithelial Cells (Auto) >30 /lpf Urine Bacteria (Auto) NEG Urine Pathogenic Casts 5-10 GRANULAR CASTS /lpf Urine Yeast (Auto) BUD W/ HYPHAE Urine Random Creatinine 131.0 mg/dl Urine Random Sodium 30 mEq/L Bedside Glucose 225 mg/dl Test 05/12/17 07:29 05/12/17 07:41 Sodium Level 134 mmol/L Potassium Level 4.3 mmol/L Chloride Level 100 mmol/L Carbon Dioxide Level 25 mmol/L Anion Gap 9.0 mmol/L Blood Urea Nitrogen 75 mg/dl Creatinine 3.78 mg/dl Est Creatinine Clear Calc Drug Dose 16.7 ml/min Estimated GFR () 17.8 Estimated GFR (Non- 15.3 BUN/Creatinine Ratio 19.8 Random Glucose 138 mg/dl Calcium Level 8.2 mg/dl Magnesium Level 1.7 mg/dl Bedside Glucose 132 mg/dl Problem List Medical Problems: (1) ARF (acute renal failure) Status: Acute (2) Dehydration Status: Acute (3) DKA (diabetic ketoacidoses) Status: Acute (4) Generalized weakness Status: Acute (5) Urinary tract infection Status: Acute Past History BPH, congestive heart failure, myocardial infarction, urinary tract infection ( urosepsis), other (IDDM and DKA, chronic anemia, chronic leukocytosis) Past Surgical History: tonsillectomy, other (oral tooth extraction ) Family History No pertinent family history Social History Hx Tobacco Use In Past Year?: No Smoking: quit greater than 1 year (quit 15 years ago) Alcohol: other (rarely ) Drug use: none Marital status: single Occupation status: employed Allergies Coded Allergies: No Known Allergies (Unverified , 02/27/17) Medications Home Medications: Home Meds and Scripts Medications Dose Route/Sig Max Daily Dose Days Date Category Methenamine Hippurate 1 Gm Tab 1 Gm PO DAILY 05/11/17 Reported Folic Acid 1 Mg Tab 1 Mg PO QAM 30 03/09/17 Rx Pantoprazole Sodium (Pantoprazole) 40 Mg Tab 40 Mg PO QAM 30 03/09/17 Rx Lopressor (Metoprolol Tartrate) 25 Mg Tab 25 Mg PO BID 30 03/09/17 Rx Lisinopril 2.5 Mg Tab 2.5 Mg PO QAM 30 03/09/17 Rx Atorvastatin Calcium (Atorvastatin) 40 Mg Tab 40 Mg PO QAM 30 03/09/17 Rx Clopidogrel (Clopidogrel Bisulfate) 75 Mg Tab 75 Mg PO QAM 30 03/09/17 Rx Lantus Solostar (Insulin Glargine) 100 Unit/Ml Inj Unknown Dose SC QPM 02/27/17 Reported Flomax (Tamsulosin Hcl) 0.4 Mg Cap 0.4 Mg PO DAILY 02/27/17 Reported Glucophage (Metformin Hcl) 1,000 Mg Tab 1,000 Mg PO BID 02/27/17 Reported Vitamin E (Tocopheryl Acet,Dl-Alpha) 100 Interunit Cap 100 Units PO DAILY 02/27/17 Reported Vitamin B-12 (Cyanocobalamin) 1,000 Mcg Tab 1,000 Mcg PO DAILY 02/27/17 Reported Vitamin D (Cholecalciferol) 1,000 Unit Tab 1,000 Units PO DAILY 02/27/17 Reported Hydrochlorothiazide 25 Mg Tab 12.5 Mg PO DAILY 02/27/17 Reported Aspirin Ec (Aspirin) 81 Mg Tab 81 Mg PO DAILY 02/27/17 Reported Inpatient Medications: Current Inpatient Medications Medications (Trade) Dose Ordered Sig/Nilda Route Start Time Stop Time Status Last Admin Dose Admin Acetaminophen (Tylenol Tab) 650 mg Q4H PRN PO 05/11/17 21:00 06/10/17 20:59 Polyethylene (Miralax Powder Packet) 17 gm DAILY PRN PO 05/11/17 21:00 06/10/17 20:59 Ondansetron HCl (Zofran Inj) 4 mg Q6H PRN IV 05/11/17 21:00 06/10/17 20:59 Heparin Sodium (Porcine) (Heparin Sq 5000 Unit/0.5ml) 5,000 unit Q12H SQ 05/12/17 06:00 06/11/17 05:59 05/12/17 05:14 5,000 UNIT Sodium Chloride 1,000 ml @ 125 mls/hr Q8H IV 05/11/17 21:00 06/10/17 20:59 05/11/17 23:55 125 MLS/HR Atorvastatin Calcium (Lipitor Tab) 40 mg QAM PO 05/12/17 09:00 06/11/17 08:59 05/12/17 08:06 40 MG Cyanocobalamin (Vitamin B-12 Tab) 1,000 mcg DAILY PO 05/12/17 09:00 06/11/17 08:59 05/12/17 08:06 1,000 MCG Folic Acid (Folvite Tab) 1 mg QAM PO 05/12/17 09:00 06/11/17 08:59 05/12/17 08:06 1 MG Metoprolol Tartrate (Lopressor Tab) 25 mg BID PO 05/12/17 09:00 06/11/17 08:59 05/12/17 08:06 25 MG Pantoprazole Sodium (Protonix Tab) 40 mg QAM PO 05/12/17 09:00 06/11/17 08:59 05/12/17 08:06 40 MG Tamsulosin HCl (Flomax Cap) 0.4 mg DAILY PO 05/12/17 09:00 06/11/17 08:59 05/12/17 08:06 0.4 MG Insulin Aspart (novoLOG ASPART) SLIDING SCALE G... ACHS SC 05/12/17 07:00 06/11/17 06:59 Glucose (Glucose 40% Gel) 15-30 GRAMS 15 GRAMS... UD PRN PO 05/11/17 23:15 06/10/17 23:14 Glucose (Glucose Chew Tab) 4-8 Tablets 4 Tabl... UD PRN PO 05/11/17 23:15 06/10/17 23:14 Dextrose (Dextrose 50% 50ML Syringe) 25-50ML OF 50% DW IV FOR... UD PRN IV 05/11/17 23:15 06/10/17 23:14 Glucagon (Glucagon Inj) 1 mg UD PRN SQ 05/11/17 23:15 06/10/17 23:14 Cefepime HCl 1000 mg/Syringe 11 ml @ 5.5 mls/min Q24H IV 05/13/17 06:00 05/22/17 05:59 Cefepime HCl (Consult) 1 ea UD PRN N/A 05/12/17 05:00 06/11/17 04:59 Magnesium Sulfate 1 gm/Prmx 100 ml @ 100 mls/hr 0900 ONCE IV 05/12/17 09:00 05/12/17 09:59 Review of Systems Review of Systems Constitutional: No fever, No chills Eyes: No double vision Neurological: No dizzy Endocrine: No excessive thirst Gastrointestinal: No abdominal pain, No nausea, No vomiting Cardiovascular: No chest pain Respiratory: No shortness of breath Skin: + problem reported (ulcer of the buttock) Musculoskeletal: + arthritis Male : No painful urination, No blood in urine Physical Exam Vital Signs: Vital Signs Past 12 Hours Date Time Temp Pulse Resp B/P (MAP) Pulse Ox O2 Delivery O2 Flow Rate FiO2 05/12/17 08:28 36.7 88 20 120/68 (85) 100 05/12/17 08:00 Room Air 05/12/17 01:11 36.8 101 16 97/46 98 Room Air 05/12/17 00:30 36.4 93 18 105/65 (78) 100 Room Air 05/11/17 21:34 98 20 123/74 100 Room Air 05/11/17 21:31 97 Physical Exam: General Appearance: no apparent distress Eyes: bilateral eyes normal inspection ENT: hearing grossly normal Neck: no JVD Respiratory/Chest: no respiratory distress, no accessory muscle use Cardiovascular: no JVD Extremities: normal inspection Neurologic/Psychiatric: alert, normal mood/affect, oriented x 3 Skin: normal color Assessment & Plan Assessment & Plan A/P: Urinary retention, bilateral hydronephrosis, ARF AFVSS. Reviewed renal u/s with Dr. Marrero this morning. Appears stable as compared to previous CT from February. Would suspect his ARF is more likely r/t dehydration. Would avoid surgical intervention and recommend conservative management of ARF for now. Would consider bilateral ureteral stent placement in the event the pt were to decompensate or develop a fever. Continue hallman catheter. Change q monthly. UC&S pending. Thanks for the consult. Will continue to follow along with primary service. Pt had hydro from bladder outlet obstruction. Not clear why he would develop ureteral obstruction. consider nephrology and ID consult as his utis will be complicated by the indwelling hallman . will follow Luzma Marrero
[2017-05-12] MEDS ORDERED: ASPIRIN 81 MG ECTAB PO ONE (10:20)
[2017-05-12] MEDS ORDERED: CLOPIDOGREL BISULFATE 75 MG TAB PO ONE (10:20)
--- NOTE | 2017-05-12 10:20 | Clinical Documentation Query ---
QUERY 1 OF 3 CLINICAL DOCUMENTATION QUERY Ms. SAAB, In your clinical opinion is this patient being managed for: ( x ) Severe protein-calorie malnutrition ( ) Not Agree ( ) Other explanation of clinical findings (Please Explain) ( ) Unable to determine (Please Define) ( ) Need to Discuss The medical record reflects the following clinical findings, treatment, and risk factors. Clinical Indicators:67 yo male presenting with weakness and wt loss. ER documentation describes pt as cachectic with severe wasting of arms and legs and quite malnourished. Described as having pressure wounds as well. Pt has had a 19% wt loss since December 2016. Treatment: IV fluids, nephrology/ID consult, WOCN consult, AHA/DM diet Risk Factors: age, DM, CHF, CAD, lives alone Chronic Severe Malnutrition Criteria: (2 criteria needed) Energy intake: <75% of estimated energy requirement for > 1 month Wt loss: >5% in 1 month, > 7.5% in 3 months, >10% in 6 months, >20% in 1 year Body fat: severe loss of SQ fat from the orbits, triceps or fat overlying the ribs Muscle mass: severe muscle wasting at the temples, clavicles, shoulders, interosseous spaces, scapula, thigh, calf Fluid accumulation: severe localized or generalized edema of the extremities, vulva, scrotum-wt loss may be masked by edema QUERY 2 OF 3 In your clinical opinion does this patient have: ( ) Chronic systolic CHF ( ) Not Agree ( ) Other explanation of clinical findings (Please Explain) ( ) Unable to determine (Please Define) ( ) Need to Discuss The medical record reflects the following clinical findings, treatment, and risk factors. Clinical Indicators: Documented hx of CHF. ECHO Feb 2017 with EF 35-40%. Treatment: chronic home meds include HCTZ, lisinopril, lopressor Risk Factors: age, DM, CAD, HTN QUERY 3 OF 3 In your clinical opinion is this patient being managed for: ( ) Pressure ulcer of left heel, unstageable, POA ( ) Pressure ulcer of sacral region, stage II, POA ( ) Not Agree ( ) Other explanation of clinical findings (Please Explain) ( ) Unable to determine (Please Define) ( ) Need to Discuss The medical record reflects the following clinical findings, treatment, and risk factors. Clinical Indicators: WOCN consult noted for heel and coccyx wounds. Review of Wound Clinic notes from Apr 2017 revealed pt with an unstageable pressure ulcer on L heel and a stage II pressure ulcer on sacral region. Treatment: WOCN consult for treatment plan, turn and reposition Risk Factors: age, DM , resides alone, malnutrition Please clarify and document your clinical opinion in the progress notes and discharge summary. Terms such as "probable", "suspected", "likely", "questionable", "possible", or "still to be ruled out" are acceptable. IF IN AGREEMENT, YOU MUST DOCUMENT ABOVE DIAGNOSTIC STATEMENT IN DAILY PROGRESS NOTES AND DISCHARGE SUMMARY. This document is not part of the patient's record. Thank You, Keely Aden, RN [phone]
--- NOTE | 2017-05-12 10:28 | Clinical Documentation Query ---
QUERY 1 OF [address] COSTELLO, In your clinical opinion is this patient being managed for: (x ) Severe protein-calorie malnutrition ( ) Not Agree ( ) Other explanation of clinical findings (Please Explain) ( ) Unable to determine (Please Define) ( ) Need to Discuss The medical record reflects the following clinical findings, treatment, and risk factors. Clinical Indicators:67 yo male presenting with weakness and wt loss. ER documentation describes pt as cachectic with severe wasting of arms and legs and quite malnourished. Described as having pressure wounds as well. Pt has had a 19% wt loss since December 2016. Treatment: IV fluids, nephrology/ID consult, WOCN consult, AHA/DM diet Risk Factors: age, DM, CHF, CAD, lives alone Chronic Severe Malnutrition Criteria: (2 criteria needed) Energy intake: <75% of estimated energy requirement for > 1 month Wt loss: >5% in 1 month, > 7.5% in 3 months, >10% in 6 months, >20% in 1 year Body fat: severe loss of SQ fat from the orbits, triceps or fat overlying the ribs Muscle mass: severe muscle wasting at the temples, clavicles, shoulders, interosseous spaces, scapula, thigh, calf Fluid accumulation: severe localized or generalized edema of the extremities, vulva, scrotum-wt loss may be masked by edema QUERY 2 OF 3 In your clinical opinion does this patient have: ( ) Chronic systolic CHF ( ) Not Agree ( ) Other explanation of clinical findings (Please Explain) ( ) Unable to determine (Please Define) ( ) Need to Discuss The medical record reflects the following clinical findings, treatment, and risk factors. Clinical Indicators: Documented hx of CHF. ECHO Feb 2017 with EF 35-40%. Treatment: chronic home meds include HCTZ, lisinopril, lopressor Risk Factors: age, DM, CAD, HTN QUERY 3 OF 3 In your clinical opinion is this patient being managed for: ( ) Pressure ulcer of left heel, unstageable, POA ( ) Pressure ulcer of sacral region, stage II, POA ( ) Not Agree ( ) Other explanation of clinical findings (Please Explain) ( ) Unable to determine (Please Define) ( ) Need to Discuss The medical record reflects the following clinical findings, treatment, and risk factors. Clinical Indicators: WOCN consult noted for heel and coccyx wounds. Review of Wound Clinic notes from Apr 2017 revealed pt with an unstageable pressure ulcer on L heel and a stage II pressure ulcer on sacral region. Treatment: WOCN consult for treatment plan, turn and reposition Risk Factors: age, DM , resides alone, malnutrition Please clarify and document your clinical opinion in the progress notes and discharge summary. Terms such as "probable", "suspected", "likely", "questionable", "possible", or "still to be ruled out" are acceptable. IF IN AGREEMENT, YOU MUST DOCUMENT ABOVE DIAGNOSTIC STATEMENT IN DAILY PROGRESS NOTES AND DISCHARGE SUMMARY. This document is not part of the patient's record. Thank You, Keely Aden, RN [phone]
--- NOTE | 2017-05-12 10:40 | Medical Consult ---
Consultation Date of Consultation: May 12, 2017. Attending Physician: Maryellen Walters MD Reason for Consultation: Yeast in urine, sepsis History of Present Illness 67-year-old male with multiple medical comorbidities including diabetes mellitus , chronic lower extremity ulcers, CHF, coronary artery disease, who was admitted in February with sepsis from urinary tract infection with evidence of obstructive uropathy with hydronephrosis requiring Miller catheter placement.patient had positive blood cultures for methicillin sensitive Staph aureus, and also developed left elbow infection with MSSA, and received course of IV antibiotics.He was now readmitted to the hospital with progressive weakness and suffered fall, and found to have markedly elevated creatinine most likely from dehydration. Was started empirically on IV cefepime. Cultures of blood and urine are pending. Radiology studies show evidence of unchanged hydronephrosis with some evidence of debris in the renal pelvis, but no evidence of obstruction. Urinalysis has shown budding yeast, and patient has been started on fluconazole. Past Medical/Surgical History Medical Problems: (1) ARF (acute renal failure) Status: Acute (2) Dehydration Status: Acute (3) DKA (diabetic ketoacidoses) Status: Acute (4) Generalized weakness Status: Acute (5) Urinary tract infection Status: Acute Medical Problems: (1) Abscess (2) Hypertension (3) Leukocytosis (4) MSSA (methicillin susceptible Staphylococcus aureus) septicemia (5) Sepsis (6) Urinary tract infection Family History No pertinent family history Social History Smoking Status: Former Smoker Drug Use: none Marital Status: single Housing Status: lives alone Occupation Status: employed Allergies Coded Allergies: No Known Allergies (Unverified , 02/27/17) Current Inpatient Medications Current Inpatient Medications Medications (Trade) Dose Ordered Sig/Nilda Route Start Time Stop Time Status Last Admin Dose Admin Acetaminophen (Tylenol Tab) 650 mg Q4H PRN PO 05/11/17 21:00 06/10/17 20:59 Polyethylene (Miralax Powder Packet) 17 gm DAILY PRN PO 05/11/17 21:00 06/10/17 20:59 Ondansetron HCl (Zofran Inj) 4 mg Q6H PRN IV 05/11/17 21:00 06/10/17 20:59 Heparin Sodium (Porcine) (Heparin Sq 5000 Unit/0.5ml) 5,000 unit Q12H SQ 05/12/17 06:00 06/11/17 05:59 05/12/17 05:14 5,000 UNIT Sodium Chloride 1,000 ml @ 125 mls/hr Q8H IV 05/11/17 21:00 06/10/17 20:59 05/12/17 09:27 125 MLS/HR Atorvastatin Calcium (Lipitor Tab) 40 mg QAM PO 05/12/17 09:00 06/11/17 08:59 05/12/17 08:06 40 MG Cyanocobalamin (Vitamin B-12 Tab) 1,000 mcg DAILY PO 05/12/17 09:00 06/11/17 08:59 05/12/17 08:06 1,000 MCG Folic Acid (Folvite Tab) 1 mg QAM PO 05/12/17 09:00 06/11/17 08:59 05/12/17 08:06 1 MG Metoprolol Tartrate (Lopressor Tab) 25 mg BID PO 05/12/17 09:00 06/11/17 08:59 05/12/17 08:06 25 MG Pantoprazole Sodium (Protonix Tab) 40 mg QAM PO 05/12/17 09:00 06/11/17 08:59 05/12/17 08:06 40 MG Tamsulosin HCl (Flomax Cap) 0.4 mg DAILY PO 05/12/17 09:00 06/11/17 08:59 05/12/17 08:06 0.4 MG Insulin Aspart (novoLOG ASPART) SLIDING SCALE G... ACHS SC 05/12/17 07:00 06/11/17 06:59 Glucose (Glucose 40% Gel) 15-30 GRAMS 15 GRAMS... UD PRN PO 05/11/17 23:15 06/10/17 23:14 Glucose (Glucose Chew Tab) 4-8 Tablets 4 Tabl... UD PRN PO 05/11/17 23:15 06/10/17 23:14 Dextrose (Dextrose 50% 50ML Syringe) 25-50ML OF 50% DW IV FOR... UD PRN IV 05/11/17 23:15 06/10/17 23:14 Glucagon (Glucagon Inj) 1 mg UD PRN SQ 05/11/17 23:15 06/10/17 23:14 Cefepime HCl 1000 mg/Syringe 11 ml @ 5.5 mls/min Q24H IV 05/13/17 06:00 05/22/17 05:59 Cefepime HCl (Consult) 1 ea UD PRN N/A 05/12/17 05:00 06/11/17 04:59 Fluconazole/ Sodium Chloride 200 mg/Prmx 100 ml @ 100 mls/hr NOW ONCE IV 05/12/17 10:00 05/12/17 10:59 UNV Fluconazole/ Sodium Chloride 100 mg/Prmx 50 ml @ 100 mls/hr DAILY IV 05/13/17 09:00 05/23/17 08:59 UNV Aspirin (Ecotrin Tab) 81 mg DAILY PO 05/13/17 09:00 06/12/17 08:59 UNV Clopidogrel Bisulfate (plAVix TAB) 75 mg QAM PO 05/13/17 09:00 06/12/17 08:59 UNV Aspirin (Ecotrin Tab) 81 mg 1020 ONCE PO 05/12/17 10:20 05/12/17 10:21 UNV Clopidogrel Bisulfate (plAVix TAB) 75 mg 1020 ONCE PO 05/12/17 10:20 05/12/17 10:21 UNV Review of Systems Constitutional: + weakness, No fever, No chills Eyes: No problem reported ENT: No problem reported Respiratory: No problem reported Cardiovascular: No problem reported Abdomen: No problem reported Musculoskeletal: No problem reported Genitourinary - Male: + problem reported (Miller catheter with clear urine) Neurologic: + weakness Psychiatric: No problem reported Endocrine: + fatigue Hematologic / Lymphatic: No problem reported Integumentary: + problem reported (Unchanged heel ulcerations) Physical Exam Date Time Temp Pulse Resp B/P (MAP) Pulse Ox O2 Delivery O2 Flow Rate FiO2 05/12/17 08:28 36.7 88 20 120/68 (85) 100 05/12/17 08:00 Room Air 05/12/17 01:11 36.8 101 16 97/46 98 Room Air 05/12/17 00:30 36.4 93 18 105/65 (78) 100 Room Air 05/11/17 21:34 98 20 123/74 100 Room Air 05/11/17 21:31 97 05/11/17 20:09 87 20 91/49 95 Room Air 05/11/17 18:39 89 20 99/48 97 Room Air 05/11/17 17:23 90 05/11/17 17:17 36.8 96 20 97/63 98 Room Air General Appearance: WD/WN, no apparent distress Head: normocephalic, atraumatic Eyes: normal inspection, EOMI, sclerae normal ENT: normal ENT inspection, pharynx normal Neck: supple, no adenopathy, trachea midline Respiratory/Chest: chest non-tender, lungs clear, normal breath sounds, no respiratory distress Cardiovascular: regular rate, rhythm, no gallop, no murmur Abdomen/GI: normal bowel sounds, non tender, soft, no organomegaly Genitourinary - Male: + pertinent finding (Miller with clear urine) Back: normal inspection, no CVA tenderness Extremities/Musculoskelatal: no calf tenderness, normal range of motion Neurologic/Psych: alert, oriented x 3 Skin: normal color, warm/dry, no rash Lymphatic: no adenopathy Laboratory Results Date/Time Source Procedure Growth Status 05/11/17 21:30 Urine,Catheterized Urine Culture Pending Received Last 24 Hours Test 05/11/17 18:28 05/11/17 21:30 05/11/17 23:46 05/12/17 05:29 White Blood Count 13.04 K/uL Red Blood Count 4.14 M/uL Hemoglobin 11.7 g/dL Hematocrit 37.6 % Mean Corpuscular Volume 90.8 fL Mean Corpuscular Hemoglobin 28.3 pg Mean Corpuscular Hemoglobin Concent 31.1 g/dl Platelet Count 400 K/uL Mean Platelet Volume 10.4 fL Neutrophils (%) (Auto) 81.8 % Lymphocytes (%) (Auto) 10.6 % Monocytes (%) (Auto) 6.5 % Eosinophils (%) (Auto) 0.5 % Basophils (%) (Auto) 0.2 % Neutrophils # (Auto) 10.67 K/uL Lymphocytes # (Auto) 1.38 K/uL Monocytes # (Auto) 0.85 K/uL Eosinophils # (Auto) 0.07 K/uL Basophils # (Auto) 0.02 K/uL RDW Standard Deviation 53.7 fL RDW Coefficient of Variation 16.4 % Immature Granulocyte % (Auto) 0.4 % Immature Granulocyte # (Auto) 0.05 K/uL Prothrombin Time 10.7 SECONDS Prothromb Time International Ratio 1.0 Activated Partial Thromboplast Time 26.1 SECONDS Partial Thromboplastin Ratio 1.0 Sodium Level 133 mmol/L Potassium Level 5.2 mmol/L Chloride Level 96 mmol/L Carbon Dioxide Level 23 mmol/L Anion Gap 14.0 mmol/L Blood Urea Nitrogen 72 mg/dl Creatinine 3.69 mg/dl Est Creatinine Clear Calc Drug Dose 17.1 ml/min Estimated GFR () 18.3 Estimated GFR (Non- 15.8 BUN/Creatinine Ratio 19.4 Random Glucose 155 mg/dl Calcium Level 9.0 mg/dl Phosphorus Level 6.0 mg/dl Magnesium Level 1.9 mg/dl Total Bilirubin 0.6 mg/dl Direct Bilirubin 0.2 mg/dl Aspartate Amino Transf (AST/SGOT) 12 U/L Alanine Aminotransferase (ALT/SGPT) 18 U/L Alkaline Phosphatase 84 U/L Total Creatine Kinase 37 U/L Creatine Kinase MB 1.9 ng/ml Creatine Kinase MB Ratio 5.1 Troponin I 0.016 ng/ml Total Protein 8.0 gm/dl Albumin 3.1 gm/dl Lipase 138 U/L Urine Color ORANGE Urine Appearance TURBID Urine pH 5.0 Urine Specific [place] 1.024 Urine Protein 3+ Urine Glucose (UA) NEG Urine Ketones TRACE Urine Occult Blood 3+ Urine Nitrite NEG Urine Bilirubin NEG Urine Urobilinogen NEG Urine Leukocyte Esterase LARGE Urine WBC (Auto) >30 /hpf Urine RBC (Auto) 10-30 /hpf Urine Hyaline Casts (Auto) 1-5 /lpf Urine Epithelial Cells (Auto) >30 /lpf Urine Bacteria (Auto) NEG Urine Pathogenic Casts 5-10 GRANULAR CASTS /lpf Urine Yeast (Auto) BUD W/ HYPHAE Urine Random Creatinine 131.0 mg/dl Urine Random Sodium 30 mEq/L Bedside Glucose 225 mg/dl Test 05/12/17 07:29 05/12/17 07:41 White Blood Count 13.60 K/uL Red Blood Count 3.68 M/uL Hemoglobin 10.5 g/dL Hematocrit 33.1 % Mean Corpuscular Volume 89.9 fL Mean Corpuscular Hemoglobin 28.5 pg Mean Corpuscular Hemoglobin Concent 31.7 g/dl RDW Standard Deviation 54.6 fL RDW Coefficient of Variation 16.6 % Platelet Count 356 K/uL Mean Platelet Volume 9.8 fL Sodium Level 134 mmol/L Potassium Level 4.3 mmol/L Chloride Level 100 mmol/L Carbon Dioxide Level 25 mmol/L Anion Gap 9.0 mmol/L Blood Urea Nitrogen 75 mg/dl Creatinine 3.78 mg/dl Est Creatinine Clear Calc Drug Dose 16.7 ml/min Estimated GFR () 17.8 Estimated GFR (Non- 15.3 BUN/Creatinine Ratio 19.8 Random Glucose 138 mg/dl Calcium Level 8.2 mg/dl Magnesium Level 1.7 mg/dl Bedside Glucose 132 mg/dl Patient Name: BHUMI GALEAS Unit Number: [id number] Dictated: 05/11/172217 Transcribed: 05/11/172217 MS Printed Date/Time: [~ rep prt dt]/[~ rep prt tm] [~ rep ct labl] - [~ rep ct ivnm] [facility] [place] [address] Dictated: 05/11/172217 Transcribed: 05/11/172217 MS Printed Date/Time: [~ rep prt dt]/[~ rep prt tm] [~ rep ct labl] - [~ rep ct ivnm] HISTORY: Renal failure hydronephrosis / ARF COMPARISON: 03/03/2017 FINDINGS: Right kidney: Maximum dimension 12.1 cm. Mild [place] process. Trace amount of debris. Normal corticomedullary differentiation and cortical thickness. Left kidney: Maximum dimension 12.7 cm. Moderate hydronephrosis. Trace debris. Normal corticomedullary differentiation and cortical thickness. Bladder: No bladder wall thickening. The bilateral ureteral jets were identified. IMPRESSION: 1. Mild/moderate bilateral renal hydronephrosis similar to the prior study. 2. Mild debris within the renal collecting systems raising the possibility of pyelonephritis. 3. This is similar compared to the prior study. The above report was generated using voice recognition software. It may contain grammatical, syntax or spelling errors. Electronically signed by: Stephen Marvin M.D. 05/11/2017 10:21 PM Dictated Date/Time: 05/11/2017 10:18 PM The status of this report is Signed. Draft = Not yet reviewed or approved by Radiologist. Signed = Reviewed and approved by Radiologist. <AttendingPhy></AttendingPhy> <FamilyPhy>Barb Gray M.D.</FamilyPhy> < PrimaryPhy>Barb Gray M.D.</PrimaryPhy> <UnitNumber>[id number]</ UnitNumber> <VisitNumber>[id number]</VisitNumber> <PatientName>BHUMI GALEAS</ PatientName> <DateOfBirth>1950</DateOfBirth> <Location>[facility]</Location> < ServiceDate>05/11/17</ServiceDate> <MNE>ESINDI</MNE> <OrderingPhy>Douglas Jerry M.D.</OrderingPhy> <OrderingPhyMNE>f rep ord dr tejeda</OrderingPhyMNE> < DictatingPhyMNE>f rep dict dr tejeda</DictatingPhyMNE> <CCListMNE>f rep ct sophye</ CCListMNE> <AdmittingPhyMNE>f pt admit dr tejeda</AdmittingPhyMNE> <AttendingPhyMNE >f pt attend dr tejeda</AttendingPhyMNE> <ConsultingPhyMNE>f pt consult dr tejeda</ConsultingPhyMNE> <FamilyPhyMNE>f pt fam dr tejeda</FamilyPhyMNE> <OtherPhyMNE>f pt other dr tejeda</OtherPhyMNE> < PrimaryPhyMNE>f pt prim care dr tejeda</PrimaryPhyMNE> <ReferringPhyMNE>f pt referring dr tejeda</ReferringPhyMNE> Assessment & Plan 67-year-old male with recent admission for urosepsis with MSSA, now presents with recurrence sepsis with urinalysis showing budding yeast and ultrasound raising possibility of fungal infection involving kidneys. Patient started on fluconazole, but will change to caspofungin to cover more resistant pathogens. May require amphotericin B bladder irrigation. Have added daptomycin to cover for Gram-positive pending final urine culture. Will follow.
[2017-05-12] MEDS ORDERED: FLUCONAZOLE / NSS 200 MG in PREMIXED NSS 100 ML IV ONE (11:30)
[2017-05-12] MEDS ORDERED: DAPTOmycin IV 375 MG in SYRINGE 0 ML IV SCH (12:00)
[2017-05-12] MEDS ORDERED: CASPOFUNGIN INJ 70 MG in SODIUM CHLORIDE 0.9% 250ML 250 ML IV ONE (12:00)
--- NOTE | 2017-05-12 12:04 | Nephrology Consultation ---
Nephrology Consultation Date & Providers Date of Consultation: May 12, 2017. Primary Care Provider: Barb Gray M.D. Referring Provider: Reason for Consultation Acute renal insufficiency History of Present Illness Mr. Chava Patel is a chronically ill 67-year-old male with a complicated recent medical history who was admitted to [facility] yesterday with weakness. Nephrology consultation was requested to assist in the management of acute renal insufficiency. Chava has several recent hospitalizations including December and February of 2017. He was most recently admitted from February 27-March 10 with septic shock from MSSA UTI and bacteremia. He had a abscess of the right elbow approximating with bursa which was drained during admission also growing MSSA. Chava completed treatment with a course of Rocephin at [facility]. He had recently returned home. He did have outpatient follow up with Urology as well regarding a new diagnosis of bladder outlet obstruction. Chava had suffered from recent MACY related to obstructive nephropathy. Clinical presentation suggestive of neurogenic bladder. Creatinine improved to 0.8 mg/dL following Miller catheter placement. Chava has indwelling Miller catheter and continued follow up with Dr. Marrero in the urology clinic. Outpatient urologic evaluation notable for flaccid distended bladder with otherwise normal appearing cystoscopy. Imaging continues to show persistent R>L mild to moderate hydronephrosis. Chava states that he has been weak since discharge from the hospital. He has meals delivered to his home but he has not been consistently eating. Appetite is reduced without specific nausea, vomiting or abdominal pain. He spends most of his time in his room working. Activity tolerance is limited. He has progressive weight loss and deconditioning. He has sacral and heal ulcers from previous hospital admissions. He has followed in the wound care clinic regarding these. During his prior hospitalizations, he had suffered NSTEMI and deferred coronary angiography. He was medically managed. TTE documented mild global hypokinesis with reduced LVEF 35-45%. There was no significant valvular heart disease. Chava denies any recent chest pain or palpitations. He denies shortness of breath. He has poorly controlled DM with a hemoglobin A1c of 8.8. He was admitted in December with hyperglycemia and UTI. Medical history is also notable for BPH, hypertension, remote tobacco abuse, DMII and recent evaluation for myelodysplastic disease. Medical Chava was admitted in December with DKA and a UTI with AVERY. He was readmitted in February with septic chronic, NSTEMI and CHF. Outpatient urologic evaluation notable for flaccid distended bladder with otherwise normal appearing cystoscopy. Past Medical/Surgical History Medical: -- Neurogenic bladder -- AVERY -- BPH -- Hydronephrosis -- Recurrent UTI -- DM II -- Hypertension -- CAD -- CHF, systolic -- LE ulcers -- Decubitus ulcers -- History of MSSA bacteremia Surgical: Tonsillectomy, cystoscopy Allergies Coded Allergies: No Known Allergies (Unverified , 02/27/17) Inpatient Medications Current Inpatient Medications Medications (Trade) Dose Ordered Sig/Nilda Route Start Time Stop Time Status Last Admin Dose Admin Acetaminophen (Tylenol Tab) 650 mg Q4H PRN PO 05/11/17 21:00 06/10/17 20:59 Polyethylene (Miralax Powder Packet) 17 gm DAILY PRN PO 05/11/17 21:00 06/10/17 20:59 Ondansetron HCl (Zofran Inj) 4 mg Q6H PRN IV 05/11/17 21:00 06/10/17 20:59 Heparin Sodium (Porcine) (Heparin Sq 5000 Unit/0.5ml) 5,000 unit Q12H SQ 05/12/17 06:00 06/11/17 05:59 05/12/17 05:14 5,000 UNIT Sodium Chloride 1,000 ml @ 125 mls/hr Q8H IV 05/11/17 21:00 06/10/17 20:59 05/12/17 09:27 125 MLS/HR Atorvastatin Calcium (Lipitor Tab) 40 mg QAM PO 05/12/17 09:00 06/11/17 08:59 05/12/17 08:06 40 MG Cyanocobalamin (Vitamin B-12 Tab) 1,000 mcg DAILY PO 05/12/17 09:00 06/11/17 08:59 05/12/17 08:06 1,000 MCG Folic Acid (Folvite Tab) 1 mg QAM PO 05/12/17 09:00 06/11/17 08:59 05/12/17 08:06 1 MG Metoprolol Tartrate (Lopressor Tab) 25 mg BID PO 05/12/17 09:00 06/11/17 08:59 05/12/17 08:06 25 MG Pantoprazole Sodium (Protonix Tab) 40 mg QAM PO 05/12/17 09:00 06/11/17 08:59 05/12/17 08:06 40 MG Tamsulosin HCl (Flomax Cap) 0.4 mg DAILY PO 05/12/17 09:00 06/11/17 08:59 05/12/17 08:06 0.4 MG Insulin Aspart (novoLOG ASPART) SLIDING SCALE G... ACHS SC 05/12/17 07:00 06/11/17 06:59 Glucose (Glucose 40% Gel) 15-30 GRAMS 15 GRAMS... UD PRN PO 05/11/17 23:15 06/10/17 23:14 Glucose (Glucose Chew Tab) 4-8 Tablets 4 Tabl... UD PRN PO 05/11/17 23:15 06/10/17 23:14 Dextrose (Dextrose 50% 50ML Syringe) 25-50ML OF 50% DW IV FOR... UD PRN IV 05/11/17 23:15 06/10/17 23:14 Glucagon (Glucagon Inj) 1 mg UD PRN SQ 05/11/17 23:15 06/10/17 23:14 Cefepime HCl 1000 mg/Syringe 11 ml @ 5.5 mls/min Q24H IV 05/13/17 06:00 05/22/17 05:59 Cefepime HCl (Consult) 1 ea UD PRN N/A 05/12/17 05:00 06/11/17 04:59 Fluconazole/ Sodium Chloride 200 mg/Prmx 100 ml @ 100 mls/hr NOW ONCE IV 05/12/17 11:30 05/12/17 12:29 Aspirin (Ecotrin Tab) 81 mg DAILY PO 05/13/17 09:00 06/12/17 08:59 Clopidogrel Bisulfate (plAVix TAB) 75 mg QAM PO 05/13/17 09:00 06/12/17 08:59 Caspofungin 70 mg/ Sodium Chloride 260 ml @ 250 mls/hr ONE ONCE IV 05/12/17 12:00 05/12/17 13:02 Caspofungin 50 mg/ Sodium Chloride 260 ml @ 250 mls/hr DAILY@1200 IV 05/13/17 09:00 05/22/17 08:59 Daptomycin 375 mg/ Syringe 7.5 ml @ 3.75 mls/ min TODAY@1200 IV 05/12/17 12:00 05/22/17 11:59 Family History No pertinent family history Social History Smoking Status: Former Smoker Drug Use: none Marital Status: single Occupation: employed Review of Systems A complete review of systems was performed. Pertinent positives are noted above. All other systems are negative. Physical Exam Date Time Temp Pulse Resp B/P (MAP) Pulse Ox O2 Delivery O2 Flow Rate FiO2 05/12/17 08:28 36.7 88 20 120/68 (85) 100 05/12/17 08:00 Room Air 05/12/17 01:11 36.8 101 16 97/46 98 Room Air 05/12/17 00:30 36.4 93 18 105/65 (78) 100 Room Air 05/11/17 21:34 98 20 123/74 100 Room Air 05/11/17 21:31 97 05/11/17 20:09 87 20 91/49 95 Room Air 05/11/17 18:39 89 20 99/48 97 Room Air 05/11/17 17:23 90 05/11/17 17:17 36.8 96 20 97/63 98 Room Air General Appearance: + thin, + pertinent finding (frail) Head: normocephalic, atraumatic Eyes: normal inspection, sclerae normal ENT: normal ENT inspection, + pertinent finding (oral mucosa dry without lesions) Neck: supple, no JVD Respiratory/Chest: lungs clear, no respiratory distress, no accessory muscle use Cardiovascular: regular rate, rhythm, no gallop, no murmur Abdomen/GI: non tender, soft Back: + pertinent finding (mild CVA tenderness on the right) Extremities/Musculoskelatal: normal inspection, no pedal edema Neurologic/Psych: alert, + depressed affect Skin: normal color Laboratory Results Last 24 Hours Test 05/11/17 18:28 05/11/17 21:30 05/11/17 23:46 05/12/17 05:29 White Blood Count 13.04 K/uL Red Blood Count 4.14 M/uL Hemoglobin 11.7 g/dL Hematocrit 37.6 % Mean Corpuscular Volume 90.8 fL Mean Corpuscular Hemoglobin 28.3 pg Mean Corpuscular Hemoglobin Concent 31.1 g/dl Platelet Count 400 K/uL Mean Platelet Volume 10.4 fL Neutrophils (%) (Auto) 81.8 % Lymphocytes (%) (Auto) 10.6 % Monocytes (%) (Auto) 6.5 % Eosinophils (%) (Auto) 0.5 % Basophils (%) (Auto) 0.2 % Neutrophils # (Auto) 10.67 K/uL Lymphocytes # (Auto) 1.38 K/uL Monocytes # (Auto) 0.85 K/uL Eosinophils # (Auto) 0.07 K/uL Basophils # (Auto) 0.02 K/uL RDW Standard Deviation 53.7 fL RDW Coefficient of Variation 16.4 % Immature Granulocyte % (Auto) 0.4 % Immature Granulocyte # (Auto) 0.05 K/uL Prothrombin Time 10.7 SECONDS Prothromb Time International Ratio 1.0 Activated Partial Thromboplast Time 26.1 SECONDS Partial Thromboplastin Ratio 1.0 Sodium Level 133 mmol/L Potassium Level 5.2 mmol/L Chloride Level 96 mmol/L Carbon Dioxide Level 23 mmol/L Anion Gap 14.0 mmol/L Blood Urea Nitrogen 72 mg/dl Creatinine 3.69 mg/dl Est Creatinine Clear Calc Drug Dose 17.1 ml/min Estimated GFR () 18.3 Estimated GFR (Non- 15.8 BUN/Creatinine Ratio 19.4 Random Glucose 155 mg/dl Calcium Level 9.0 mg/dl Phosphorus Level 6.0 mg/dl Magnesium Level 1.9 mg/dl Total Bilirubin 0.6 mg/dl Direct Bilirubin 0.2 mg/dl Aspartate Amino Transf (AST/SGOT) 12 U/L Alanine Aminotransferase (ALT/SGPT) 18 U/L Alkaline Phosphatase 84 U/L Total Creatine Kinase 37 U/L Creatine Kinase MB 1.9 ng/ml Creatine Kinase MB Ratio 5.1 Troponin I 0.016 ng/ml Total Protein 8.0 gm/dl Albumin 3.1 gm/dl Lipase 138 U/L Urine Color ORANGE Urine Appearance TURBID Urine pH 5.0 Urine Specific [place] 1.024 Urine Protein 3+ Urine Glucose (UA) NEG Urine Ketones TRACE Urine Occult Blood 3+ Urine Nitrite NEG Urine Bilirubin NEG Urine Urobilinogen NEG Urine Leukocyte Esterase LARGE Urine WBC (Auto) >30 /hpf Urine RBC (Auto) 10-30 /hpf Urine Hyaline Casts (Auto) 1-5 /lpf Urine Epithelial Cells (Auto) >30 /lpf Urine Bacteria (Auto) NEG Urine Pathogenic Casts 5-10 GRANULAR CASTS /lpf Urine Yeast (Auto) BUD W/ HYPHAE Urine Random Creatinine 131.0 mg/dl Urine Random Sodium 30 mEq/L Bedside Glucose 225 mg/dl Test 05/12/17 07:29 05/12/17 07:41 05/12/17 11:01 White Blood Count 13.60 K/uL Red Blood Count 3.68 M/uL Hemoglobin 10.5 g/dL Hematocrit 33.1 % Mean Corpuscular Volume 89.9 fL Mean Corpuscular Hemoglobin 28.5 pg Mean Corpuscular Hemoglobin Concent 31.7 g/dl RDW Standard Deviation 54.6 fL RDW Coefficient of Variation 16.6 % Platelet Count 356 K/uL Mean Platelet Volume 9.8 fL Sodium Level 134 mmol/L Potassium Level 4.3 mmol/L Chloride Level 100 mmol/L Carbon Dioxide Level 25 mmol/L Anion Gap 9.0 mmol/L Blood Urea Nitrogen 75 mg/dl Creatinine 3.78 mg/dl Est Creatinine Clear Calc Drug Dose 16.7 ml/min Estimated GFR () 17.8 Estimated GFR (Non- 15.3 BUN/Creatinine Ratio 19.8 Random Glucose 138 mg/dl Calcium Level 8.2 mg/dl Magnesium Level 1.7 mg/dl Bedside Glucose 132 mg/dl 264 mg/dl Impression (1) ATN (acute tubular necrosis) (2) Acute renal insufficiency (3) Hydronephrosis (4) Recurrent UTI (5) Hypertension (6) Urinary tract infection Chava Patel is a frail 67-year-old male with DM II, hypertension, CAD, chronic systolic CHF, neurogenic bladder, and multiple recent hospital admissions. He was recent treated with septic shock due to MSSA. He has had a progressive overall decline in health over the past few months. He has acute renal failure consistent with ATN. Granular cast noted on urine microscopy. I cannot exclude a post renal obstructive component to renal dysfunction given persistent bilateral hydronephrosis. He has had recurrent UTI and may require additional intervention for decompression of the urinary system. At this time, he does not has systemic signs or symptoms of infection. ID consult pending. Urology consult was reviewed. Blood cultures and urine cultures pending. Volume status suggestive of hypovolemia. IV hydration is being provided with close monitoring. Baseline creatinine normal at 0.8 mg/dL. UA shows orange urine with +3 protein. Microscopic evaluation notable for >30 WBC, 10-30 RBC, granular cast. Renal US reviewed noting BL hydronephrosis. Lisinopril, HCTZ and metformin have been appropriately held. Recommendations -- Maintain Miller to gravity -- Follow up blood and urine cultures -- Monitor metabolic profile twice daily -- Document I/O's and maintain slightly positive fluid balance -- DC IVF when tolerating appropriate oral intake -- Hold lisinopril, HCTZ and metformin -- Encourage nutrition
[2017-05-12] MEDS ORDERED: NURSING DECISION MEDICATION ORDER SCH (14:00)
[2017-05-12] MEDS ORDERED: LIDOCAINE HCL 2% JELLY 30 ML TUBE EXT ONE ×2 (14:03→14:15)
[2017-05-12 15:51] VITALS: BP 119/72; PULSE 81; TEMP 36.6; O2SAT 100
--- NOTE | 2017-05-12 15:51 | Hospitalist Progress Note ---
Hospitalist Progress Note Date of Service May 12, 2017. (Alyssa Olivier .ARNOLDC) Subjective Pt evaluation today including: conversation w/ patient, physical exam, chart review, lab review, review of studies, review of inpatient medication list Pain: None PO Intake: Tolerating PO diet Voiding: hallman catheter in place Patient reports feeling well. He does report feeling fatigued but denies weakness, although he states it's hard to tell in bed. The patient denies fevers, chills, sweats, chest pain, palpitations, claudication, cough, wheezing , shortness of breath, nausea, vomiting, abdominal pain, dysuria, hematuria, urinary retention, paralysis, weakness, numbness and tingling. Additional Comments: See HPI for pertinent positives and negatives. All other systems reviewed and negative. (Alyssa Olivier, ARNOLDC) Objective Vital Signs Date Time Temp Pulse Resp B/P (MAP) Pulse Ox O2 Delivery O2 Flow Rate FiO2 05/12/17 08:28 36.7 88 20 120/68 (85) 100 05/12/17 08:00 Room Air 05/12/17 01:11 36.8 101 16 97/46 98 Room Air 05/12/17 00:30 36.4 93 18 105/65 (78) 100 Room Air 05/11/17 21:34 98 20 123/74 100 Room Air 05/11/17 21:31 97 05/11/17 20:09 87 20 91/49 95 Room Air 05/11/17 18:39 89 20 99/48 97 Room Air 05/11/17 17:23 90 05/11/17 17:17 36.8 96 20 97/63 98 Room Air (Alyssa Olivier PA-C) Physical Exam Notes: General appearance: +Thin. No apparent distress Head: Normocephalic, atraumatic Eyes: Normal inspection, PERRL, EOMI ENT: Normal ENT inspection, hearing grossly normal, pharynx normal Neck: Supple, no JVD, trachea midline Respiratory/Chest: Lungs clear to auscultation, normal breath sounds, no respiratory distress Cardiovascular: Regular rate & rhythm, no gallop, no murmur Abdomen/GI: Normal bowel sounds, non-tender, soft Extremities/Musculoskeletal: Normal inspection, no calf tenderness, no pedal edema Neurological/Psych: Alert, normal mood/affect, oriented x 3 Skin: Normal color, warm/dry, no rash (Alyssa Olivier ., KAYLA) Laboratory Results Last 24 Hours Test 05/11/17 18:28 05/11/17 21:30 05/11/17 23:46 05/12/17 05:29 White Blood Count 13.04 K/uL Red Blood Count 4.14 M/uL Hemoglobin 11.7 g/dL Hematocrit 37.6 % Mean Corpuscular Volume 90.8 fL Mean Corpuscular Hemoglobin 28.3 pg Mean Corpuscular Hemoglobin Concent 31.1 g/dl Platelet Count 400 K/uL Mean Platelet Volume 10.4 fL Neutrophils (%) (Auto) 81.8 % Lymphocytes (%) (Auto) 10.6 % Monocytes (%) (Auto) 6.5 % Eosinophils (%) (Auto) 0.5 % Basophils (%) (Auto) 0.2 % Neutrophils # (Auto) 10.67 K/uL Lymphocytes # (Auto) 1.38 K/uL Monocytes # (Auto) 0.85 K/uL Eosinophils # (Auto) 0.07 K/uL Basophils # (Auto) 0.02 K/uL RDW Standard Deviation 53.7 fL RDW Coefficient of Variation 16.4 % Immature Granulocyte % (Auto) 0.4 % Immature Granulocyte # (Auto) 0.05 K/uL Prothrombin Time 10.7 SECONDS Prothromb Time International Ratio 1.0 Activated Partial Thromboplast Time 26.1 SECONDS Partial Thromboplastin Ratio 1.0 Sodium Level 133 mmol/L Potassium Level 5.2 mmol/L Chloride Level 96 mmol/L Carbon Dioxide Level 23 mmol/L Anion Gap 14.0 mmol/L Blood Urea Nitrogen 72 mg/dl Creatinine 3.69 mg/dl Est Creatinine Clear Calc Drug Dose 17.1 ml/min Estimated GFR () 18.3 Estimated GFR (Non- 15.8 BUN/Creatinine Ratio 19.4 Random Glucose 155 mg/dl Calcium Level 9.0 mg/dl Phosphorus Level 6.0 mg/dl Magnesium Level 1.9 mg/dl Total Bilirubin 0.6 mg/dl Direct Bilirubin 0.2 mg/dl Aspartate Amino Transf (AST/SGOT) 12 U/L Alanine Aminotransferase (ALT/SGPT) 18 U/L Alkaline Phosphatase 84 U/L Total Creatine Kinase 37 U/L Creatine Kinase MB 1.9 ng/ml Creatine Kinase MB Ratio 5.1 Troponin I 0.016 ng/ml Total Protein 8.0 gm/dl Albumin 3.1 gm/dl Lipase 138 U/L Urine Color ORANGE Urine Appearance TURBID Urine pH 5.0 Urine Specific [place] 1.024 Urine Protein 3+ Urine Glucose (UA) NEG Urine Ketones TRACE Urine Occult Blood 3+ Urine Nitrite NEG Urine Bilirubin NEG Urine Urobilinogen NEG Urine Leukocyte Esterase LARGE Urine WBC (Auto) >30 /hpf Urine RBC (Auto) 10-30 /hpf Urine Hyaline Casts (Auto) 1-5 /lpf Urine Epithelial Cells (Auto) >30 /lpf Urine Bacteria (Auto) NEG Urine Pathogenic Casts 5-10 GRANULAR CASTS /lpf Urine Yeast (Auto) BUD W/ HYPHAE Urine Random Creatinine 131.0 mg/dl Urine Random Sodium 30 mEq/L Bedside Glucose 225 mg/dl Test 05/12/17 07:29 05/12/17 07:41 05/12/17 11:01 White Blood Count 13.60 K/uL Red Blood Count 3.68 M/uL Hemoglobin 10.5 g/dL Hematocrit 33.1 % Mean Corpuscular Volume 89.9 fL Mean Corpuscular Hemoglobin 28.5 pg Mean Corpuscular Hemoglobin Concent 31.7 g/dl RDW Standard Deviation 54.6 fL RDW Coefficient of Variation 16.6 % Platelet Count 356 K/uL Mean Platelet Volume 9.8 fL Sodium Level 134 mmol/L Potassium Level 4.3 mmol/L Chloride Level 100 mmol/L Carbon Dioxide Level 25 mmol/L Anion Gap 9.0 mmol/L Blood Urea Nitrogen 75 mg/dl Creatinine 3.78 mg/dl Est Creatinine Clear Calc Drug Dose 16.7 ml/min Estimated GFR () 17.8 Estimated GFR (Non- 15.3 BUN/Creatinine Ratio 19.8 Random Glucose 138 mg/dl Calcium Level 8.2 mg/dl Magnesium Level 1.7 mg/dl Bedside Glucose 132 mg/dl 264 mg/dl (Alyssa Olivier, ARNOLDC) Assessment and Plan 67 y/o male with a history of DM II, systolic CHF, BPH with obstructive uropathy , chronic Hallman, severe protein-calorie malnutrition, chronic lower extremity ulcers, myeloproliferate disorder and recent NSTEMI February 2017 who presents with weakness per home health nurse. Acute renal failure--ongoing -Admit to med/surg -Baseline creatinine had been 0.8, creatinine on admission was 3.69 -Creatinine 3.78 on 05/12 -Recently started on HCTZ and lisinopril within last few months. Will continue to hold these meds as well as metformin -NSS at 125 cc/hr. Continue until having adequate PO intake. Monitor fluid status due to history of CHF -Nephrology consulted, appreciate recs: Check metabolic panel BID. Document I' s & O's with slightly positive fluid balance. D/C IVF when tolerating adequate PO intake. Hold lisinopril, HCTZ and metformin -Renal ultrasound with mild/moderate bilateral renal hydronephrosis and possible pyelonephritis -Urine creatinine and urine sodium WNL Sepsis secondary to UTI, pyelonephritis--ongoing -Leukocytosis slightly worse at 13.60 on 05/12 -UA positive for yeast -Urine and blood cultures pending. BCX obtained after 1 dose of Cefepime -Infectious disease consulted, appreciate recs: D/C fluconazole and cover with caspofungin. May need amphotericin B bladder irrigation. Will also add daptomycin. -Caspofungin 70 mg IV x 1, then 50 mg IV qd -Daptomycin IV -Continue cefepime 1 gm IV qd. Day #2 BPH with bladder outlet obstruction, chronic Hallman--ongoing -Urology consulted, appreciate recs: Continue conservative treatment for now. Consider ureteral stents if pt decompensates or develops fever. -Change indwelling Hallman today due to UTI POA, then change q month per urology -Continue Flomax 0.4 mg PO hs Hypomagnesemia -Magnesium 1.7 on 05/12, given mag sulfate 1 gm IV x1 -Continue to monitor Chronic systolic CHF--stable, no acute exacerbation -Monitor fluid status, on IVF due to ARF -Continue Lopressor 25 mg PO BID -Lisinopril and HCTZ held CAD, h/o NSTEMI--stable, asymptomatic. EKG no ischemic changes. Trop negative -Resume ASA, Plavix. No procedures at this time -Continue atorvastatin 40 mg PO qd DM II--last HgbA1c checked 03/03/17 was 8.6 -Hold metformin -Insulin sliding scale -Check BSGs q ac and qhs Myeloproliferative disease -RBC, Hgb counts actually improved from February Chronic LE ulcers, pressure ulcers on left heel and sacrum POA -Wound care nurse consulted Severe protein calorie malnutrition -Nutrition consulted DVT prophylaxis -Heparin 5000 units SC q12h Code Status -Level I, FULL RESUSCITATION STATUS (Alyssa Olivier PA-C) Reviewed: Pt Seen/Exam by Me (Maryellen Walters MD) History Resident Physician Supervision Note: I interviewed and examined the patient. Discussed with SYD Olivier and agree with findings and plan as documented in the note. Any exceptions or clarifications are listed here: Pt is a 67 yo male with a complex PMH most notable for BPH with obstructive uropathy, UTIs with septic shock, neurogenic bladder with hydronephrosis, CAD with NSTEMI in setting of septic shock, ischemic CM with EF 35%, chronic systolic CHF, severe protein calorie malnutrition, MSSA bacteremia and elbow abscess, DMII, anemia, here with MACY, sepsis, and UTI. Pt feels ok, is very dismissive about his condition. Labs, renal US reviewed FeNA = 0.6% indicating prerenal azotemia Vitals reviewed Very thin, cachectic, muscle wasting, temporal wasting, sarcopenia diffusely NAD, AAOx3 RRR 2/6 CANDIS at [facility] CTAB no wcr Abd +BS soft NT ND Ext no edema, 2+ DP pulses Skin multiple superficial abrasions on knees and large eschar on left heel Pt is a 67 yo male with a complex PMH most notable for BPH with obstructive uropathy, UTIs with septic shock, neurogenic bladder with hydronephrosis, CAD with NSTEMI in setting of septic shock, ischemic CM with EF 35%, chronic systolic CHF, severe protein calorie malnutrition, MSSA bacteremia and elbow abscess, DMII, anemia, here with MACY, sepsis, and UTI. MACY-prerenal in nature, pt says was drinking maybe 1-2 glasses water total daily. ATN with granular casts likely from hypovolemia. Not improving with IVFs. Bilateral hydro on Renal US is chronic from previous and had flaccid bladder on cystoscopy last month, with indwelling Hallman. With pyelo with fungal and bacterial infection likely. Does have moderately reduced EF on ECHO after NSTEMI 2 months ago. CHF could be contributing to renal failure. Was also on HCTZ, ACEI, metformin, and Mobic also listed in outpt record. All those meds are now being held. Check repeat ECHO to assess for worsening CHF Follow PRP bid, continue IVFs Appreciate ID recommendations for broad spectrum and antifungal abx, will follow Ur cx and BCxs Appreciate Nephro recommendations--> ordered daily weights and I/Os Appreciate Urol consult-d/w Ms. Reyes of Urology, because hydro present previously with normal renal function, probably not causing his current MACY. Would not want to place ureteral stents in due to risk of complications unless worsening condition Boost Glucose control ordered for improved nutrition Documented By: Maryellen Walters (Maryellen Walters MD)
[2017-05-12] MEDS: BOOST GLUCOSE CONTROL PO SCH (17:15)
[2017-05-12 19:36] LABS: BUN/CREATININE RATIO 17.9 (10-20); CALCIUM 8.1 mg/dl (8.5-10.1); CREATININE 3.87 mg/dl (0.60-1.40); POTASSIUM 3.9 mmol/L (3.5-5.1)
[2017-05-12 21:42] VITALS: BP 91/50; PULSE 85
[2017-05-13] VITALS: BP 107/60; PULSE 79; TEMP 36.5; O2SAT 97
[2017-05-13] MEDS: SODIUM CHLORIDE 0.9% 1000ML 1,000 ML IV SCH (05:39)
[2017-05-13] MEDS: CEFEPIME IV 1,000 MG in SYRINGE 0 ML IV SCH (05:39)
[2017-05-13] MEDS: HEPARIN SOD 5000 UNIT/0.5 ML CARP SQ SCH ×2 (05:42→17:27)
--- NOTE | 2017-05-13 06:29 | Clinical Documentation Query ---
CLINICAL DOCUMENTATION QUERY DR. COSTELLO, In your clinical opinion is this patient being managed for: ( x ) UTI likely due to chronic indwelling hallman catheter ( ) Not Agree ( ) Other explanation of clinical findings (Please Explain) ( ) Unable to determine (Please Define) ( ) Need to Discuss The medical record reflects the following clinical findings, treatment, and risk factors. Clinical Indicators:67 yo male presenting with weakness, found to have UTI. Noted to have a chronic hallman catheter. Treatment:change hallman catheter, urology consult, IV caspofungin, IV cefepime, po urex, IV daptomycin, IV diflucan, IV fluids, ID consult Risk Factors: DM, chronic hallman catheter Please clarify and document your clinical opinion in the progress notes and discharge summary. Terms such as "probable", "suspected", "likely", "questionable", "possible", or "still to be ruled out" are acceptable. IF IN AGREEMENT, YOU MUST DOCUMENT ABOVE DIAGNOSTIC STATEMENT IN DAILY PROGRESS NOTES AND DISCHARGE SUMMARY. This document is not part of the patient's record. Thank You, Keely Aden RN [phone]
[2017-05-13] MEDS: INSULIN ASPART 100 UNITS/ML 3 ML PEN SC SCH ×4 (06:30→20:47)
--- NOTE | 2017-05-13 06:32 | Clinical Documentation Query ---
CLINICAL DOCUMENTATION QUERY MS. SAAB, In your clinical opinion is this patient being managed for: ( x ) UTI likely due to chronic indwelling hallman catheter ( ) Not Agree ( ) Other explanation of clinical findings (Please Explain) ( ) Unable to determine (Please Define) ( ) Need to Discuss The medical record reflects the following clinical findings, treatment, and risk factors. Clinical Indicators:67 yo male presenting with weakness, found to have UTI. Noted to have a chronic hallman catheter. Treatment:change hallman catheter, urology consult, IV caspofungin, IV cefepime, po urex, IV daptomycin, IV diflucan, IV fluids, ID consult Risk Factors: DM, chronic hallman catheter Please clarify and document your clinical opinion in the progress notes and discharge summary. Terms such as "probable", "suspected", "likely", "questionable", "possible", or "still to be ruled out" are acceptable. IF IN AGREEMENT, YOU MUST DOCUMENT ABOVE DIAGNOSTIC STATEMENT IN DAILY PROGRESS NOTES AND DISCHARGE SUMMARY. This document is not part of the patient's record. Thank You, Keely Aden RN [phone]
[2017-05-13 07:33] LABS: HEMATOCRIT 33.1 % (42-52); MEAN CELL VOLUME 90.2 fL (80-100); MEAN CORPUSCULAR HEMOGLOBIN 29.2 pg (25-34); MEAN CORPUSCULAR HGB CONC 32.3 g/dl (32-36); MEAN PLATELET VOLUME 9.7 fL (7.4-10.4); PLATELET COUNT 320 K/uL (130-400); RED BLOOD COUNT 3.67 M/uL (4.7-6.1); WHITE BLOOD COUNT 8.86 K/uL (4.8-10.8)
[2017-05-13 07:49] VITALS: BP 122/70; PULSE 80; TEMP 36.6; O2SAT 99
--- NOTE | 2017-05-13 07:49 | Progress Note ---
Subjective Date of Service: May 13, 2017. (Jaylin Reyes CRNP) Subjective Pt evaluation today including: conversation w/ patient, chart review Voiding: hallman catheter in place (patent, draining clear, yellow urine) 67 yo male with UR, bilateral hydro, and ARF. Cr pending this morning. Pt denies pain. He has been started on IV caspofungin by ID for suspected yeast in the urine. Cultures pending. (Jaylin Reyes CRNP) Problem List Medical Problems: (1) ARF (acute renal failure) Status: Acute (2) Dehydration Status: Acute (3) DKA (diabetic ketoacidoses) Status: Acute (4) Generalized weakness Status: Acute (5) Urinary tract infection Status: Acute (Jaylin Reyes CRNP) Review of Systems Constitutional: No fever, No chills Respiratory: No shortness of breath Cardiac: No chest pain Abdomen: No pain, No nausea, No vomiting Male : No hematuria Heme: No abnormal bleeding/bruising (Jaylin Reyes CRNP) Objective Vital Signs Date Time Temp Pulse Resp B/P (MAP) Pulse Ox O2 Delivery O2 Flow Rate FiO2 05/13/17 00:15 Room Air 05/13/17 00:00 36.5 79 20 107/60 (76) 97 Room Air 05/12/17 21:42 85 91/50 (64) 05/12/17 16:00 Room Air 05/12/17 15:51 36.6 81 18 119/72 (88) 100 Room Air 05/12/17 08:28 36.7 88 20 120/68 (85) 100 05/12/17 08:00 Room Air (Jaylin Reyes CRNP) Physical Exam General Appearance: no apparent distress Eyes: normal inspection ENT: hearing grossly normal Neck: no JVD Respiratory/Chest: no respiratory distress, no accessory muscle use Cardiovascular: no JVD Extremities: normal inspection Neurologic/Psychiatric: alert, normal mood/affect, oriented x 3 Skin: normal color (Jaylin Reyes CRNP) Laboratory Results Last 24 Hours Test 05/12/17 11:01 05/12/17 16:18 05/12/17 18:59 05/12/17 20:09 Bedside Glucose 264 mg/dl 152 mg/dl 188 mg/dl Sodium Level 134 mmol/L Potassium Level 3.9 mmol/L Chloride Level 102 mmol/L Carbon Dioxide Level 22 mmol/L Anion Gap 9.0 mmol/L Blood Urea Nitrogen 69 mg/dl Creatinine 3.87 mg/dl Est Creatinine Clear Calc Drug Dose 16.3 ml/min Estimated GFR () 17.3 Estimated GFR (Non- 14.9 BUN/Creatinine Ratio 17.9 Random Glucose 142 mg/dl Calcium Level 8.1 mg/dl Test 05/13/17 07:03 White Blood Count 8.86 K/uL Red Blood Count 3.67 M/uL Hemoglobin 10.7 g/dL Hematocrit 33.1 % Mean Corpuscular Volume 90.2 fL Mean Corpuscular Hemoglobin 29.2 pg Mean Corpuscular Hemoglobin Concent 32.3 g/dl RDW Standard Deviation 53.9 fL RDW Coefficient of Variation 16.4 % Platelet Count 320 K/uL Mean Platelet Volume 9.7 fL (Jaylin Reyes CRNP) Assessment and Plan A/P: UR, bilateral hydronephrosis, ARF, UTI AFVSS. Stable hydro per u/s. Management of suspected UTI per ID. Continue to suspect his ARF is r/t dehydration and possible UTI. Will continue to monitor for now. Avoid stent placement unless he were to decompensate or develop a fever. Will continue to follow along with primary service. (Jaylin Reyes CRNP) Creatinine up today . Pt continues to make urine and wbc down and no fever. If creatinine continues to rise check non contrast ct . Would observe and hydrate today . Placing stents would allow bladder infections to colonize upeer tracts . Not clear wht pt would have obstruction (Gray Marrero M.D.)
[2017-05-13] MEDS: BOOST GLUCOSE CONTROL PO SCH ×2 (08:00→17:22)
[2017-05-13 08:11] LABS: BUN/CREATININE RATIO 16.4 (10-20); CALCIUM 8.1 mg/dl (8.5-10.1); CREATININE 4.07 mg/dl (0.60-1.40); MAGNESIUM 1.8 mg/dl (1.8-2.4); POTASSIUM 3.9 mmol/L (3.5-5.1)
[2017-05-13] MEDS: TAMSULOSIN HCL 0.4 MG CAP PO SCH (08:26)
[2017-05-13] MEDS: PANTOprazole SOD 40 MG TAB PO SCH (08:26)
[2017-05-13] MEDS: METOPROLOL TARTRATE 25 MG TAB PO SCH ×2 (08:26→20:44)
[2017-05-13] MEDS: CYANOCOBALAMIN 500 MCG TAB (VIT B-12) PO SCH (08:27)
[2017-05-13] MEDS: ASPIRIN 81 MG ECTAB PO SCH (08:27)
[2017-05-13] MEDS: ATORVASTATIN 40 MG TAB PO SCH (08:28)
[2017-05-13] MEDS: CLOPIDOGREL BISULFATE 75 MG TAB PO SCH (08:28)
[2017-05-13] MEDS: METHENAMINE HIPPURATE 1 GM TAB PO SCH (08:49)
[2017-05-13] MEDS ORDERED: FLUCONAZOLE / NSS 100 MG in PREMIXED NSS 50 ML IV SCH (09:00)
[2017-05-13] MEDS ORDERED: CASPOFUNGIN INJ 50 MG in SODIUM CHLORIDE 0.9% 250ML 250 ML IV SCH (09:00)
[2017-05-13] MEDS ORDERED: MAGNESIUM OXIDE 400 MG TAB PO ONE (09:12)
[2017-05-13] MEDS ORDERED: POTASSIUM CHLORIDE 20 MEQ TABCR PO ONE (09:15)
--- NOTE | 2017-05-13 09:45 | ECHOCARDIOGRAM REPORT ---
*NOTICE TO RECEIVING REPUBLICAN AGENCY This information is strictly Confidential and protected under [place] law. [place] law prohibits you from making any further disclosure of this information unless further disclosure is expressly permitted by the written consent of the person to whom it pertains or is authorized by law. A general authorization for the release of medical or other information is not sufficient for this purpose. Hospital accepts no responsibility if the information is made available to any other person, INCLUDING THE PATIENT. Interpretation Summary * Name: BHUMI GALEAS Study Date: 05/13/2017 08:18 AM BP: 107/60 mmHg * Patient Location: .[id number]\[id number]\2 HR: 79 * : 1950 (M/d/yyyy) Gender: Male Height: 72 in * Age: 67 yrs Ethnicity: CA Weight: 141 lb * Ordering Physician: Maryellen Walters * Referring Physician: Self, Referred * Performed By: Annmarie Steinberg RDCS * * Reason For Study: Congestive Heart Failure * BSA: 1.8 m2 * -- Conclusions -- * The left ventricle is borderline dilated. * Left ventricular systolic function is moderately reduced. * Grade I diastolic dysfunction, (abnormal relaxation pattern). * The right ventricular systolic function is reduced as assessed by tricuspid annular plane systolic excursion (TAPSE) (TAPSE <1.6 cm). * There is moderate mitral regurgitation. * The compared to study from 02/28/2017, there is no evidence of tricuspid regurgitation, otherwise no significant difference. Procedure Details * A complete two-dimensional transthoracic echocardiogram was performed (2D, M-mode, Doppler and color flow Doppler). Left Ventricle * The left ventricle is borderline dilated. * There is normal left ventricular wall thickness. * Ejection Fraction = 35-40%. * Left ventricular systolic function is moderately reduced. * Grade I diastolic dysfunction, (abnormal relaxation pattern). * There are regional wall motion abnormalities as specified. * There is global hypokinesis with severe hypokinesis of the basal inferior wall. Right Ventricle * The right ventricle is normal size. * The right ventricular systolic function is reduced as assessed by tricuspid annular plane systolic excursion (TAPSE) (TAPSE <1.6 cm). Atria * The left atrial size is normal. * Right atrial size is normal. Mitral Valve * The mitral valve is grossly normal. * There is moderate mitral regurgitation. Tricuspid Valve * The tricuspid valve is not well visualized, but is grossly normal. * There is trace tricuspid regurgitation. Aortic Valve * The aortic valve is normal in structure and function. * No hemodynamically significant valvular aortic stenosis. * There is no significant aortic regurgitation. Great Vessels * The aortic root is normal size. Pericardium/Pleural * There is no pericardial effusion. MMode 2D Measurements and Calculations IVSd 1.1 cm IVSs 1.2 cm LVIDd 5.4 cm LVIDs 4.5 cm LVPWd 0.85 cm LVPWs 1.6 cm IVS/LVPW 1.3 FS 16.8 % EDV(Teich) 141.1 ml ESV(Teich) 91.9 ml EF(Teich) 34.8 % EDV(cubed) 157.1 ml ESV(cubed) 90.5 ml EF(cubed) 42.4 % % IVS thick 5.5 % % LVPW thick 91.4 % LV mass(C)d 199.8 grams LV mass(C)dI 108.8 grams/m\S\2 LV mass(C)s 245.5 grams LV mass(C)sI 133.7 grams/m\S\2 SV(Teich) 49.1 ml SI(Teich) 26.8 ml/m\S\2 SV(cubed) 66.6 ml SI(cubed) 36.3 ml/m\S\2 Ao root diam 3.3 cm Ao root area 8.6 cm\S\2 ACS 1.8 cm LA dimension 3.6 cm LA/Ao 1.1 LVOT diam 2.0 cm LVOT area 3.2 cm\S\2 LVAd ap4 28.7 cm\S\2 LVLd ap4 8.1 cm EDV(MOD-sp4) 86.9 ml EDV(sp4-el) 86.4 ml LVAs ap4 19.7 cm\S\2 LVLs ap4 6.9 cm ESV(MOD-sp4) 50.9 ml ESV(sp4-el) 47.7 ml EF(MOD-sp4) 41.5 % EF(sp4-el) 44.8 % LVAd ap2 32.5 cm\S\2 LVLd ap2 8.1 cm EDV(MOD-sp2) 114.4 ml EDV(sp2-el) 111.0 ml LVAs ap2 23.2 cm\S\2 LVLs ap2 7.3 cm ESV(MOD-sp2) 64.5 ml ESV(sp2-el) 62.4 ml EF(MOD-sp2) 43.6 % EF(sp2-el) 43.8 % LVLd %diff 0.22 % EDV(MOD-bp) 100.1 ml LVLs %diff 5.5 % ESV(MOD-bp) 59.1 ml EF(MOD-bp) 40.9 % SV(MOD-sp4) 36.0 ml SI(MOD-sp4) 19.6 ml/m\S\2 SV(MOD-sp2) 49.9 ml SI(MOD-sp2) 27.2 ml/m\S\2 SV(MOD-bp) 40.9 ml SI(MOD-bp) 22.3 ml/m\S\2 SV(sp4-el) 38.7 ml SI(sp4-el) 21.1 ml/m\S\2 SV(sp2-el) 48.6 ml SI(sp2-el) 26.5 ml/m\S\2 Doppler Measurements and Calculations MV E max evangelina 51.0 cm/sec MV A max evangelina 78.9 cm/sec MV E/A 0.65 MV dec time 0.15 sec Ao V2 max 95.8 cm/sec Ao max PG 3.7 mmHg Ao max PG (full) 1.4 mmHg KALYANI(V,A) 2.5 cm\S\2 KALYANI(V,D) 2.5 cm\S\2 LV V1 max PG 2.3 mmHg LV V1 max 75.9 cm/sec MR max evangelina 525.4 cm/sec MR max PG 110.4 mmHg MR mean evangelina 384.5 cm/sec MR mean PG 68.6 mmHg MR VTI 167.3 cm MR PISA 0.96 cm\S\2 MR PISA radius 0.39 cm PA V2 max 71.9 cm/sec PA max PG 2.1 mmHg
--- NOTE | 2017-05-13 10:27 | Nephrology Progress Note ---
Nephrology Progress Note Date of Service May 13, 2017. Chief Complaint Acute renal insufficiency Subjective No acute events overnight. Chava is resting comfortably in bed. He feels well this morning. Appetite reported as good. No fevers or chills. No back or abdominal pain. Miller intact. No shortness of breath. No chest pain or palpitations. Review of Systems A complete review of systems was performed. Pertinent positives are noted above. All other systems are negative. Vital Signs Last 8 Hrs Date Time Temp Pulse Resp B/P (MAP) Pulse Ox O2 Delivery O2 Flow Rate FiO2 05/13/17 07:49 36.6 80 18 122/70 (87) 99 Room Air Last Recorded Weight Weight (Kilograms): 64.000 Physical Exam General Appearance: no apparent distress, + thin Head: normocephalic, atraumatic Eyes: normal inspection, sclerae normal ENT: normal ENT inspection, pharynx normal Neck: supple, no JVD Respiratory/Chest: lungs clear, no respiratory distress, no accessory muscle use Cardiovascular: regular rate, rhythm, no gallop Back: no CVA tenderness Abdomen/GI: non tender, soft Genitourinary - Male: + pertinent finding (Miller draining yellow urine) Extremities/Musculoskelatal: normal inspection, no pedal edema Neurologic/Psych: alert, normal mood/affect Family History No pertinent family history Social History Drug Use: none Marital Status: single Occupation: employed Laboratory Results Past 24 Hours 05/13/17 07:03 05/12/17 18:59 05/13/17 07:03 Test 05/12/17 11:01 05/12/17 16:18 05/12/17 18:59 05/12/17 20:09 Bedside Glucose 264 mg/dl (70-99) 152 mg/dl (70-99) 188 mg/dl (70-99) Anion Gap 9.0 mmol/L (3-11) Est Creatinine Clear Calc Drug Dose 16.3 ml/min Estimated GFR () 17.3 Estimated GFR (Non- 14.9 BUN/Creatinine Ratio 17.9 (10-20) Calcium Level 8.1 mg/dl (8.5-10.1) Test 05/13/17 07:03 05/13/17 07:53 Red Blood Count 3.67 M/uL (4.7-6.1) Mean Corpuscular Volume 90.2 fL (80-100) Mean Corpuscular Hemoglobin 29.2 pg (25-34) Mean Corpuscular Hemoglobin Concent 32.3 g/dl (32-36) RDW Standard Deviation 53.9 fL (36.4-46.3) RDW Coefficient of Variation 16.4 % (11.5-14.5) Mean Platelet Volume 9.7 fL (7.4-10.4) Anion Gap 10.0 mmol/L (3-11) Est Creatinine Clear Calc Drug Dose 15.5 ml/min Estimated GFR () 16.2 Estimated GFR (Non- 14.0 BUN/Creatinine Ratio 16.4 (10-20) Calcium Level 8.1 mg/dl (8.5-10.1) Magnesium Level 1.8 mg/dl (1.8-2.4) Bedside Glucose 160 mg/dl (70-99) Allergies Coded Allergies: No Known Allergies (Unverified , 02/27/17) Medications Current Inpatient Medications Medications (Trade) Dose Ordered Sig/Nilda Route Start Time Stop Time Status Last Admin Dose Admin Acetaminophen (Tylenol Tab) 650 mg Q4H PRN PO 05/11/17 21:00 06/10/17 20:59 Polyethylene (Miralax Powder Packet) 17 gm DAILY PRN PO 05/11/17 21:00 06/10/17 20:59 Ondansetron HCl (Zofran Inj) 4 mg Q6H PRN IV 05/11/17 21:00 06/10/17 20:59 Heparin Sodium (Porcine) (Heparin Sq 5000 Unit/0.5ml) 5,000 unit Q12H SQ 05/12/17 06:00 06/11/17 05:59 05/13/17 05:42 5,000 UNIT Sodium Chloride 1,000 ml @ 125 mls/hr Q8H IV 05/11/17 21:00 06/10/17 20:59 05/13/17 05:39 125 MLS/HR Atorvastatin Calcium (Lipitor Tab) 40 mg QAM PO 05/12/17 09:00 06/11/17 08:59 05/13/17 08:28 40 MG Cyanocobalamin (Vitamin B-12 Tab) 1,000 mcg DAILY PO 05/12/17 09:00 06/11/17 08:59 05/13/17 08:27 1,000 MCG Folic Acid (Folvite Tab) 1 mg QAM PO 05/12/17 09:00 06/11/17 08:59 05/13/17 08:28 1 MG Metoprolol Tartrate (Lopressor Tab) 25 mg BID PO 05/12/17 09:00 06/11/17 08:59 05/13/17 08:26 25 MG Pantoprazole Sodium (Protonix Tab) 40 mg QAM PO 05/12/17 09:00 06/11/17 08:59 05/13/17 08:26 40 MG Tamsulosin HCl (Flomax Cap) 0.4 mg DAILY PO 05/12/17 09:00 06/11/17 08:59 05/13/17 08:26 0.4 MG Insulin Aspart (novoLOG ASPART) SLIDING SCALE G... ACHS SC 05/12/17 07:00 06/11/17 06:59 05/12/17 21:48 1 UNITS Glucose (Glucose 40% Gel) 15-30 GRAMS 15 GRAMS... UD PRN PO 05/11/17 23:15 06/10/17 23:14 Glucose (Glucose Chew Tab) 4-8 Tablets 4 Tabl... UD PRN PO 05/11/17 23:15 06/10/17 23:14 Dextrose (Dextrose 50% 50ML Syringe) 25-50ML OF 50% DW IV FOR... UD PRN IV 05/11/17 23:15 06/10/17 23:14 Glucagon (Glucagon Inj) 1 mg UD PRN SQ 05/11/17 23:15 06/10/17 23:14 Cefepime HCl 1000 mg/Syringe 11 ml @ 5.5 mls/min Q24H IV 05/13/17 06:00 05/22/17 05:59 05/13/17 05:39 5.5 MLS/MIN Cefepime HCl (Consult) 1 ea UD PRN N/A 05/12/17 05:00 06/11/17 04:59 Aspirin (Ecotrin Tab) 81 mg DAILY PO 05/13/17 09:00 06/12/17 08:59 05/13/17 08:27 81 MG Clopidogrel Bisulfate (plAVix TAB) 75 mg QAM PO 05/13/17 09:00 06/12/17 08:59 05/13/17 08:28 75 MG Daptomycin 375 mg/ Syringe 7.5 ml @ 3.75 mls/ min TODAY@1200 IV 05/12/17 12:00 05/22/17 11:59 05/12/17 12:57 3.75 MLS/MIN Enteral Nutritional Formula (Boost Glucose Control) 1 can BIDM PO 05/12/17 17:00 06/11/17 16:59 05/12/17 17:15 1 CAN Methenamine Hippurate (Urex Tab) 1 gm DAILY PO 05/13/17 09:00 06/12/17 08:59 05/13/17 08:49 1 GM Caspofungin 50 mg/ Sodium Chloride 260 ml @ 250 mls/hr DAILY@1200 IV 05/13/17 12:00 05/23/17 11:59 Magnesium Oxide (Mag-Ox Tab) 400 mg QAM PO 05/14/17 09:00 06/13/17 08:59 Impression (1) ATN (acute tubular necrosis) (2) Acute renal insufficiency (3) Hydronephrosis (4) Recurrent UTI (5) Hypertension (6) Urinary tract infection Chava Patel is a frail 67-year-old male with DM II, hypertension, CAD, chronic systolic CHF, neurogenic bladder, and multiple recent hospital admissions. This includes recent treatment for septic shock due to MSSA. Chava has acute renal failure consistent with ATN. Granular cast noted on urine microscopy. I cannot exclude a post renal obstructive component to renal dysfunction given persistent bilateral hydronephrosis. He has had recurrent UTI and may require additional intervention for decompression of the urinary system. At this time, he does not has systemic signs or symptoms of infection. Urine cultures pending. Urology consult was reviewed. Volume status appropriate. TTE reviewed today notable for reduced LV systolic function (35-40%) with global and severe inferior wall hypokinesis, grade 1 diastolic dysfunction with mild dilation of the LV. Moderate MR noted. Baseline creatinine normal at 0.8 mg/dL. UA shows orange urine with +3 protein. Microscopic evaluation notable for >30 WBC, 10-30 RBC, granular cast. Renal US reviewed noting BL hydronephrosis. Lisinopril, HCTZ and metformin have been appropriately held. Recommendations -- Maintain Miller to gravity -- Follow up blood and urine cultures -- Monitor metabolic profile twice daily -- Stop IVF -- Document I/O's -- Hold lisinopril, HCTZ and metformin -- Encourage nutrition
[2017-05-13] MEDS ORDERED: DAPTOMYCIN CONSULT ACTIVE PRN ×2 (11:00)
[2017-05-13] MEDS: CASPOFUNGIN INJ 50 MG in SODIUM CHLORIDE 0.9% 250ML 250 ML IV SCH (12:49)
--- NOTE | 2017-05-13 14:28 | Hospitalist Progress Note ---
Hospitalist Progress Note Date of Service May 13, 2017. (Alyssa Olivier PA-C) Subjective Pt evaluation today including: conversation w/ patient, physical exam, chart review, lab review, review of studies, review of inpatient medication list Pain: None PO Intake: Tolerating PO diet Voiding: hallman catheter in place Patient reports feeling well. He denies any acute complaints. He reports fatigue but states that this is chronic and is no worse than usual. The patient denies fevers, chills, sweats, chest pain, palpitations, claudication, cough, wheezing, shortness of breath, nausea, vomiting, abdominal pain, dysuria , hematuria, urinary retention, paralysis, weakness, numbness and tingling. Additional Comments: See HPI for pertinent positives and negatives. All other systems reviewed and negative. (Alyssa Olivier PA-C) Objective Vital Signs Date Time Temp Pulse Resp B/P (MAP) Pulse Ox O2 Delivery O2 Flow Rate FiO2 05/13/17 08:00 Room Air 05/13/17 07:49 36.6 80 18 122/70 (87) 99 Room Air 05/13/17 00:15 Room Air 05/13/17 00:00 36.5 79 20 107/60 (76) 97 Room Air 05/12/17 21:42 85 91/50 (64) 05/12/17 16:00 Room Air 05/12/17 15:51 36.6 81 18 119/72 (88) 100 Room Air (Alyssa Olivier, ARNOLDC) Physical Exam Notes: General appearance: +Thin. No apparent distress Head: Normocephalic, atraumatic Eyes: Normal inspection, PERRL, EOMI ENT: Normal ENT inspection, hearing grossly normal, pharynx normal Neck: Supple, no JVD, trachea midline Respiratory/Chest: Lungs clear to auscultation, normal breath sounds, no respiratory distress Cardiovascular: Regular rate & rhythm, no gallop, no murmur Abdomen/GI: Normal bowel sounds, non-tender, soft Extremities/Musculoskeletal: Normal inspection, no calf tenderness, no pedal edema Neurological/Psych: Alert, normal mood/affect, oriented x 3 Skin: Normal color, warm/dry, no rash (Alyssa Olivier PA-C) Laboratory Results Last 24 Hours Test 11/7/17 16:18 05/12/17 18:59 05/12/17 20:09 05/13/17 07:03 Bedside Glucose 152 mg/dl 188 mg/dl Sodium Level 134 mmol/L 138 mmol/L Potassium Level 3.9 mmol/L 3.9 mmol/L Chloride Level 102 mmol/L 106 mmol/L Carbon Dioxide Level 22 mmol/L 22 mmol/L Anion Gap 9.0 mmol/L 10.0 mmol/L Blood Urea Nitrogen 69 mg/dl 67 mg/dl Creatinine 3.87 mg/dl 4.07 mg/dl Est Creatinine Clear Calc Drug Dose 16.3 ml/min 15.5 ml/min Estimated GFR () 17.3 16.2 Estimated GFR (Non- 14.9 14.0 BUN/Creatinine Ratio 17.9 16.4 Random Glucose 142 mg/dl 158 mg/dl Calcium Level 8.1 mg/dl 8.1 mg/dl White Blood Count 8.86 K/uL Red Blood Count 3.67 M/uL Hemoglobin 10.7 g/dL Hematocrit 33.1 % Mean Corpuscular Volume 90.2 fL Mean Corpuscular Hemoglobin 29.2 pg Mean Corpuscular Hemoglobin Concent 32.3 g/dl RDW Standard Deviation 53.9 fL RDW Coefficient of Variation 16.4 % Platelet Count 320 K/uL Mean Platelet Volume 9.7 fL Magnesium Level 1.8 mg/dl Test 05/13/17 07:53 05/13/17 11:18 Bedside Glucose 160 mg/dl 278 mg/dl (Alyssa Olivier, KAYLA) Diagnostic Results Echocardiogram: Interpretation Summary * Name: BHUMI GALEAS Study Date: 05/13/2017 08:18 AM BP: 107/60 mmHg * [id number] HR: 79 * : 1950 (M/d/yyyy) Gender: Male Height: 72 in * Age: 67 yrs Ethnicity: [place] Weight: 141 lb * Ordering Physician: Maryellen Walters * Referring Physician: Self, Referred * Performed By: Annmarie Steinberg RDCS * * Reason For Study: Congestive Heart Failure * BSA: 1.8 m2 * -- Conclusions -- * The left ventricle is borderline dilated. * Left ventricular systolic function is moderately reduced. * Grade I diastolic dysfunction, (abnormal relaxation pattern). * The right ventricular systolic function is reduced as assessed by tricuspid annular plane systolic excursion (TAPSE) (TAPSE <1.6 cm). * There is moderate mitral regurgitation. * The compared to study from 02/28/2017, there is no evidence of tricuspid regurgitation, otherwise no significant difference. Procedure Details * A complete two-dimensional transthoracic echocardiogram was performed (2D, M-mode, Doppler and color flow Doppler). Left Ventricle * The left ventricle is borderline dilated. * There is normal left ventricular wall thickness. * Ejection Fraction = 35-40%. * Left ventricular systolic function is moderately reduced. * Grade I diastolic dysfunction, (abnormal relaxation pattern). * There are regional wall motion abnormalities as specified. * There is global hypokinesis with severe hypokinesis of the basal inferior wall. Right Ventricle * The right ventricle is normal size. * The right ventricular systolic function is reduced as assessed by tricuspid annular plane systolic excursion (TAPSE) (TAPSE <1.6 cm). Atria * The left atrial size is normal. * Right atrial size is normal. Mitral Valve * The mitral valve is grossly normal. * There is moderate mitral regurgitation. Tricuspid Valve * The tricuspid valve is not well visualized, but is grossly normal. * There is trace tricuspid regurgitation. Aortic Valve * The aortic valve is normal in structure and function. * No hemodynamically significant valvular aortic stenosis. * There is no significant aortic regurgitation. Great Vessels * The aortic root is normal size. Pericardium/Pleural * There is no pericardial effusion. (Alyssa Olivier ., PA-C) Assessment and Plan 67 y/o male with a history of DM II, systolic CHF, BPH with obstructive uropathy , chronic Hallman, severe protein-calorie malnutrition, chronic lower extremity ulcers, myeloproliferate disorder and recent NSTEMI February 2017 who presents with weakness per home health nurse. Acute renal failure--worsening -Admit to med/surg -Baseline creatinine had been 0.8, creatinine on admission was 3.69 -Creatinine continues to trend upward, 4.07 on 05/13 -Recently started on HCTZ and lisinopril within last few months. Will continue to hold these meds as well as metformin -D/C IVF -Nephrology consulted, appreciate recs: Renal failure due to ATN. Check metabolic panel BID. Document I's & O's with slightly positive fluid balance. Hold lisinopril, HCTZ and metformin. Recommend stopping IVF -Renal ultrasound with mild/moderate bilateral renal hydronephrosis and possible pyelonephritis -Urine creatinine and urine sodium WNL -Non-contrast abdomen/pelvis CT ordered to assess for post renal obstruction Sepsis secondary to UTI and pyelonephritis due to chronic indwelling Hallman catheter--improving -Leukocytosis improved, now WNL -UA positive for yeast -Urine culture positive for non-donis yeast. Consider narrowing abx spectrum but will await ID recs -Blood cultures pending. BCX obtained after 1 dose of Cefepime -Infectious disease consulted, appreciate recs: D/C fluconazole and cover with caspofungin. May need amphotericin B bladder irrigation. Will also add daptomycin. -Continue caspofungin 50 mg IV qd. Day #2 -Daptomycin IV. Day #2 -Continue cefepime 1 gm IV qd. Day #3 BPH with bladder outlet obstruction, chronic Hallman--ongoing -Urology consulted, appreciate recs: Continue conservative treatment for now. Consider ureteral stents if pt decompensates or develops fever. Can check non- contrast CT if creatinine worsening. -Change indwelling Hallman 05/12 due to UTI POA, then change q month per urology -Continue Flomax 0.4 mg PO hs Hypomagnesemia--resolving -Start magnesium 400 mg PO qd -Continue to monitor Chronic systolic CHF--stable, no acute exacerbation -IVF d/c'd -Continue Lopressor 25 mg PO BID -Lisinopril and HCTZ held -Repeat echo without any significant changes. EF still 35-40%. Grade 1 diastolic dysfunction. Global hypokinesis with severe hypokinesis of basal inferior wall. CAD, h/o NSTEMI--stable, asymptomatic. EKG no ischemic changes. Trop negative -Resume ASA, Plavix. No procedures at this time -Continue atorvastatin 40 mg PO qd DM II--last HgbA1c checked 03/03/17 was 8.6 -Hold metformin -Insulin sliding scale -Check BSGs q ac and qhs Myeloproliferative disease--stable -RBC, Hgb counts actually improved from February Chronic LE ulcers, pressure ulcers on left heel and sacrum POA -Wound care nurse consulted Severe protein calorie malnutrition -Nutrition consulted DVT prophylaxis -Heparin 5000 units SC q12h Code Status -Level I, FULL RESUSCITATION STATUS (Alyssa Olivier ., KAYLA) Reviewed: Pt Seen/Exam by Me (Maryellen Walters MD) History Resident Physician Supervision Note: I interviewed and examined the patient. Discussed with SYD Olivier and agree with findings and plan as documented in the note. Any exceptions or clarifications are listed here: Pt is a 67 yo male with a complex PMH most notable for BPH with obstructive uropathy, UTIs with septic shock, neurogenic bladder with hydronephrosis, CAD with NSTEMI in setting of septic shock, ischemic CM with EF 35%, chronic systolic and diastolic CHF, severe protein calorie malnutrition, MSSA bacteremia and elbow abscess, DMII, anemia, here with MACY, sepsis, and UTI/ pyelonephritis. Had a long discussion today with patient as well as his sister on the phone about his condition. He was refusing boost for fear of diarrhea, but again reminded him that he did not have diarrhea with boost and he is willing to try it. He is unwilling to get out of bed for the nurses and refused PT which is a pattern for him. His sister reports that he has a history of OCD and is a hoarder, and fears that these conditions may be getting in the way of him improving physically. She reports that when he was home from [facility], that he laid in bed all day and didn't even watch television and was frequently noncompliant for office visits. Labs reviewed Vitals reviewed Very thin, cachectic, muscle wasting, temporal wasting, sarcopenia diffusely NAD, AAOx3 RRR 2/6 CANDIS at [facility] CTAB no wcr Abd +BS soft NT ND Ext no edema, 2+ DP pulses Skin multiple superficial abrasions on knees and large eschar on left heel Pt is a 67 yo male with a complex PMH most notable for BPH with obstructive uropathy, UTIs with septic shock, neurogenic bladder with hydronephrosis, CAD with NSTEMI in setting of septic shock, ischemic CM with EF 35%, chronic systolic CHF, severe protein calorie malnutrition, MSSA bacteremia and elbow abscess, DMII, anemia, here with MACY, sepsis, and UTI/pyelonephritis. MACY-worsening today, prerenal in nature, pt says was drinking maybe 1-2 glasses water total daily. ATN with granular casts likely from hypovolemia. Not improving with IVFs and these were discontinued by nephrology.. Bilateral hydro on Renal US is chronic from previous and had flaccid bladder on cystoscopy last month, with indwelling Hallman. With pyelo with fungal and bacterial infection likely. Hopeful that creatinine will begin to improve in the next 1-2 days. Does have moderately reduced LVEF as well as RV systolic function on ECHO that is stable after NSTEMI 2 months ago. CHF could be contributing to renal failure. Was also on HCTZ, ACEI, metformin, and Mobic also listed in outpt record. All those meds are now being held. -Will need cardiology follow-up at some point as an outpatient -Continue to Follow PRP bid -Appreciate ID recommendations for broad spectrum and antifungal abx, will follow Ur cx which is now showing yeast that is not Donis albicans, follow BCxs Appreciate Nephro recommendations Appreciate Urol consult-d/w Ms. Reyes of Urology, because hydro present previously with normal renal function, probably not causing his current MACY. Would not want to place ureteral stents in due to risk of complications unless worsening condition -Severe protein calorie malnutrition-suspect all related to poor by mouth intake , chronic illness. Again encouraged Boost Glucose control ordered for improved nutrition, strongly encouraged patient to get out of bed with the nurses to the chair and to participate in PT -Consult psychiatry to evaluate for depression as well as treatment for his OCD which may be detrimental to his overall health improving-I discussed the case with the psychiatric nurse liaison Documented By: Maryellen Walters (Maryellen Walters MD)
[2017-05-13 15:54] VITALS: BP 95/56; PULSE 77; TEMP 36.8; O2SAT 97
[2017-05-13 16:00] VITALS: BP 118/63
--- NOTE | 2017-05-13 16:29 | Infectious Disease Progress Nt ---
Progress Note Date of Service May 13, 2017. Subjective Pt evaluation today including: conversation w/ patient, physical exam, chart review, lab review, review of studies, conversation w/ advertising consultant, review of inpatient medication list Patient feeling better today. No new specific complaints. Remains afebrile. Tolerating caspofungin without apparent difficulty. Urine growing non albicans Angelica. All Other Systems: Reviewed and Negative Medications Current Inpatient Medications Medications (Trade) Dose Ordered Sig/Nilda Route Start Time Stop Time Status Last Admin Dose Admin Acetaminophen (Tylenol Tab) 650 mg Q4H PRN PO 05/11/17 21:00 06/10/17 20:59 Polyethylene (Miralax Powder Packet) 17 gm DAILY PRN PO 05/11/17 21:00 06/10/17 20:59 Ondansetron HCl (Zofran Inj) 4 mg Q6H PRN IV 05/11/17 21:00 06/10/17 20:59 Heparin Sodium (Porcine) (Heparin Sq 5000 Unit/0.5ml) 5,000 unit Q12H SQ 05/12/17 06:00 06/11/17 05:59 05/13/17 05:42 5,000 UNIT Atorvastatin Calcium (Lipitor Tab) 40 mg QAM PO 05/12/17 09:00 06/11/17 08:59 05/13/17 08:28 40 MG Cyanocobalamin (Vitamin B-12 Tab) 1,000 mcg DAILY PO 05/12/17 09:00 06/11/17 08:59 05/13/17 08:27 1,000 MCG Folic Acid (Folvite Tab) 1 mg QAM PO 05/12/17 09:00 06/11/17 08:59 05/13/17 08:28 1 MG Metoprolol Tartrate (Lopressor Tab) 25 mg BID PO 05/12/17 09:00 06/11/17 08:59 05/13/17 08:26 25 MG Pantoprazole Sodium (Protonix Tab) 40 mg QAM PO 05/12/17 09:00 06/11/17 08:59 05/13/17 08:26 40 MG Tamsulosin HCl (Flomax Cap) 0.4 mg DAILY PO 05/12/17 09:00 06/11/17 08:59 05/13/17 08:26 0.4 MG Insulin Aspart (novoLOG ASPART) SLIDING SCALE G... ACHS SC 05/12/17 07:00 06/11/17 06:59 05/13/17 12:47 3 UNITS Glucose (Glucose 40% Gel) 15-30 GRAMS 15 GRAMS... UD PRN PO 05/11/17 23:15 06/10/17 23:14 Glucose (Glucose Chew Tab) 4-8 Tablets 4 Tabl... UD PRN PO 05/11/17 23:15 06/10/17 23:14 Dextrose (Dextrose 50% 50ML Syringe) 25-50ML OF 50% DW IV FOR... UD PRN IV 05/11/17 23:15 06/10/17 23:14 Glucagon (Glucagon Inj) 1 mg UD PRN SQ 05/11/17 23:15 06/10/17 23:14 Cefepime HCl 1000 mg/Syringe 11 ml @ 5.5 mls/min Q24H IV 05/13/17 06:00 05/22/17 05:59 05/13/17 05:39 5.5 MLS/MIN Cefepime HCl (Consult) 1 ea UD PRN N/A 05/12/17 05:00 06/11/17 04:59 Aspirin (Ecotrin Tab) 81 mg DAILY PO 05/13/17 09:00 06/12/17 08:59 05/13/17 08:27 81 MG Clopidogrel Bisulfate (plAVix TAB) 75 mg QAM PO 05/13/17 09:00 06/12/17 08:59 05/13/17 08:28 75 MG Enteral Nutritional Formula (Boost Glucose Control) 1 can BIDM PO 05/12/17 17:00 06/11/17 16:59 05/12/17 17:15 1 CAN Methenamine Hippurate (Urex Tab) 1 gm DAILY PO 05/13/17 09:00 06/12/17 08:59 05/13/17 08:49 1 GM Caspofungin 50 mg/ Sodium Chloride 260 ml @ 250 mls/hr DAILY@1200 IV 05/13/17 12:00 05/23/17 11:59 05/13/17 12:49 250 MLS/HR Magnesium Oxide (Mag-Ox Tab) 400 mg QAM PO 05/14/17 09:00 12/9/17 08:59 Daptomycin 375 mg/ Syringe 7.5 ml @ 3.75 mls/ min Q2D@1200 IV 05/14/17 12:00 05/22/17 11:59 Daptomycin (Consult) 1 ea UD PRN N/A 05/13/17 11:00 06/12/17 10:59 Objective Vital Signs Date Time Temp Pulse Resp B/P (MAP) Pulse Ox O2 Delivery O2 Flow Rate FiO2 05/13/17 16:00 118/63 (81) 05/13/17 15:54 36.8 77 22 95/56 (69) 97 Room Air 05/13/17 08:00 Room Air 05/13/17 07:49 36.6 80 18 122/70 (87) 99 Room Air 05/13/17 00:15 Room Air 05/13/17 00:00 36.5 79 20 107/60 (76) 97 Room Air 05/12/17 21:42 85 91/50 (64) Physical Exam General Appearance: WD/WN, no apparent distress Eyes: normal inspection, EOMI, sclerae normal ENT: normal ENT inspection, pharynx normal Neck: supple, no adenopathy, thyroid normal, trachea midline Respiratory/Chest: chest non-tender, lungs clear, normal breath sounds, no respiratory distress Cardiovascular: regular rate, rhythm, no gallop, no murmur Abdomen: normal bowel sounds, non tender, soft, no organomegaly Extremities: non-tender, no calf tenderness Neurologic/Psychiatric: alert, oriented x 3 Skin: normal color, no rash Lymphatic: no adenopathy Laboratory Results RUN DATE: 05/13/17 [facility] LAB PAGE 1 RUN TIME: 1211 Specimen Inquiry PATIENT: ADALBHUMI LOC: CINDY U # : [id number] AGE/SX: 67/M ROOM: [facility] REG : 05/11/[address]: Maryellen Walters MD : [id number] BED: 2 DIS : STATUS: ADM IN TLOC: SPEC #: [id number] BELKIS: 05/11/17 STATUS: RES REQ #: [id number] RECD: 05/11/[address]: Vinicius Blake M.D. SOURCE: URINE CATH ENTR: 05/12/17-[address]: Diana Crawford, Assigned [facility]: ORDERED: CULTURE UR CATH Procedure Result Verified Site URINE CULTURE Preliminary 05/13/17-1211 Organism 1 YEAST NOT ANGELICA ALBICANS COLONY COUNT >100,000 CFU/ml SENS NO SENSITIVITY TO FOLLOW Last 24 Hours Test 05/12/17 18:59 05/12/17 20:09 05/13/17 07:03 05/13/17 07:53 Sodium Level 134 mmol/L 138 mmol/L Potassium Level 3.9 mmol/L 3.9 mmol/L Chloride Level 102 mmol/L 106 mmol/L Carbon Dioxide Level 22 mmol/L 22 mmol/L Anion Gap 9.0 mmol/L 10.0 mmol/L Blood Urea Nitrogen 69 mg/dl 67 mg/dl Creatinine 3.87 mg/dl 4.07 mg/dl Est Creatinine Clear Calc Drug Dose 16.3 ml/min 15.5 ml/min Estimated GFR () 17.3 16.2 Estimated GFR (Non- 14.9 14.0 BUN/Creatinine Ratio 17.9 16.4 Random Glucose 142 mg/dl 158 mg/dl Calcium Level 8.1 mg/dl 8.1 mg/dl Bedside Glucose 188 mg/dl 160 mg/dl White Blood Count 8.86 K/uL Red Blood Count 3.67 M/uL Hemoglobin 10.7 g/dL Hematocrit 33.1 % Mean Corpuscular Volume 90.2 fL Mean Corpuscular Hemoglobin 29.2 pg Mean Corpuscular Hemoglobin Concent 32.3 g/dl RDW Standard Deviation 53.9 fL RDW Coefficient of Variation 16.4 % Platelet Count 320 K/uL Mean Platelet Volume 9.7 fL Magnesium Level 1.8 mg/dl Test 05/13/17 11:18 Bedside Glucose 278 mg/dl Assessment and Plan 67-year-old male with recent admission for urosepsis with MSSA, now presents with recurrence sepsis with urinalysis showing budding yeast and ultrasound raising possibility of fungal infection involving kidneys. Urine now growing yeast as well. Patient will be continued on caspofungin, may require amphotericin B bladder irrigation as well. Await final culture results. Will follow.
[2017-05-13 19:22] LABS: BUN/CREATININE RATIO 14.7 (10-20); CALCIUM 7.7 mg/dl (8.5-10.1); CREATININE 4.01 mg/dl (0.60-1.40); POTASSIUM 4.3 mmol/L (3.5-5.1)
[2017-05-13 20:43] VITALS: BP 123/63; PULSE 89
[2017-05-14 00:07] VITALS: BP 104/64; PULSE 87; TEMP 36.6; O2SAT 98
[2017-05-14] MEDS ORDERED: LACTATED RINGER'S 1000ML 500 ML IV SCH (06:00)
[2017-05-14] MEDS ORDERED: PROPARACAINE 0.5% OP SOLN PER DROP CHARGE OPL SCH (06:00)
[2017-05-14] MEDS ORDERED: PHENYLEPHRINE HCL 2.5% OP SOLN PER DROP CHARGE OPL SCH (06:01)
[2017-05-14] MEDS ORDERED: TROPICAMIDE 1% OP SOLN PER DROP CHARGE OPL SCH (06:02)
[2017-05-14] MEDS ORDERED: CYCLOPENTOLATE HCL 1% OP SOLN PER DROP CHARGE OPL SCH (06:03)
[2017-05-14] MEDS ORDERED: KETOROLAC 0.5% OP SOLN PER DROP CHARGE OPL SCH (06:04)
[2017-05-14] MEDS ORDERED: GATIFLOXACIN OP SOLN PER DROP CHARGE OPL SCH (06:05)
[2017-05-14] MEDS: CEFEPIME IV 1,000 MG in SYRINGE 0 ML IV SCH (06:32)
[2017-05-14] MEDS: HEPARIN SOD 5000 UNIT/0.5 ML CARP SQ SCH ×2 (06:32→17:29)
[2017-05-14 08:15] VITALS: BP 124/60; PULSE 80; TEMP 36.6; O2SAT 98
[2017-05-14] MEDS ORDERED: MAGNESIUM OXIDE 400 MG TAB PO SCH (09:00)
[2017-05-14 09:45] LABS: MEAN CELL VOLUME 89.4 fL (80-100); MEAN CORPUSCULAR HEMOGLOBIN 28.8 pg (25-34); MEAN CORPUSCULAR HGB CONC 32.2 g/dl (32-36); MEAN PLATELET VOLUME 10.1 fL (7.4-10.4); PLATELET COUNT 307 K/uL (130-400); RED BLOOD COUNT 3.58 M/uL (4.7-6.1); WHITE BLOOD COUNT 7.96 K/uL (4.8-10.8)
[2017-05-14] MEDS: BOOST GLUCOSE CONTROL PO SCH ×2 (09:50→17:30)
[2017-05-14] MEDS: ASPIRIN 81 MG ECTAB PO SCH (09:50)
[2017-05-14] MEDS: CLOPIDOGREL BISULFATE 75 MG TAB PO SCH (09:51)
[2017-05-14] MEDS: ATORVASTATIN 40 MG TAB PO SCH (09:51)
[2017-05-14] MEDS: CYANOCOBALAMIN 500 MCG TAB (VIT B-12) PO SCH (09:51)
[2017-05-14] MEDS: TAMSULOSIN HCL 0.4 MG CAP PO SCH (09:52)
[2017-05-14] MEDS: METOPROLOL TARTRATE 25 MG TAB PO SCH ×2 (09:52→20:56)
[2017-05-14] MEDS: PANTOprazole SOD 40 MG TAB PO SCH (09:52)
[2017-05-14] MEDS: METHENAMINE HIPPURATE 1 GM TAB PO SCH (09:52)
[2017-05-14] MEDS: INSULIN ASPART 100 UNITS/ML 3 ML PEN SC SCH ×4 (09:54→20:59)
--- NOTE | 2017-05-14 10:23 | Nephrology Progress Note ---
Nephrology Progress Note Date of Service May 14, 2017. Chief Complaint Acute renal insufficiency Subjective No acute events overnight. Chava denies any complaints this morning. No fevers or chills. No pain. Denies shortness of breath. Appetite fair. Chava remains despondent. Review of Systems A complete review of systems was performed. Pertinent positives are noted above. All other systems are negative. Vital Signs Last 8 Hrs Date Time Temp Pulse Resp B/P (MAP) Pulse Ox O2 Delivery O2 Flow Rate FiO2 05/14/17 08:15 36.6 80 18 124/60 (81) 98 Room Air Last Recorded Weight Weight (Kilograms): 58.800 Physical Exam General Appearance: no apparent distress, + thin Head: normocephalic, atraumatic Eyes: normal inspection, sclerae normal ENT: normal ENT inspection, pharynx normal Neck: supple, no JVD Respiratory/Chest: lungs clear, no respiratory distress, no accessory muscle use Cardiovascular: regular rate, rhythm, no murmur Abdomen/GI: non tender, soft Extremities/Musculoskelatal: normal inspection, no pedal edema Neurologic/Psych: alert, + depressed affect Family History No pertinent family history Social History Drug Use: none Marital Status: single Occupation: employed Laboratory Results Past 24 Hours 05/14/17 09:03 05/13/17 18:53 Test 05/13/17 11:18 05/13/17 16:26 05/13/17 18:53 05/13/17 20:13 Bedside Glucose 278 mg/dl (70-99) 133 mg/dl (70-99) 171 mg/dl (70-99) Anion Gap 7.0 mmol/L (3-11) Est Creatinine Clear Calc Drug Dose 15.7 ml/min Estimated GFR () 16.5 Estimated GFR (Non- 14.3 BUN/Creatinine Ratio 14.7 (10-20) Calcium Level 7.7 mg/dl (8.5-10.1) Test 05/14/17 07:49 05/14/17 09:03 Bedside Glucose 164 mg/dl (70-99) Red Blood Count 3.58 M/uL (4.7-6.1) Mean Corpuscular Volume 89.4 fL (80-100) Mean Corpuscular Hemoglobin 28.8 pg (25-34) Mean Corpuscular Hemoglobin Concent 32.2 g/dl (32-36) RDW Standard Deviation 54.3 fL (36.4-46.3) RDW Coefficient of Variation 16.5 % (11.5-14.5) Mean Platelet Volume 10.1 fL (7.4-10.4) Allergies Coded Allergies: No Known Allergies (Unverified , 02/27/17) Medications Current Inpatient Medications Medications (Trade) Dose Ordered Sig/Nilda Route Start Time Stop Time Status Last Admin Dose Admin Acetaminophen (Tylenol Tab) 650 mg Q4H PRN PO 05/11/17 21:00 06/10/17 20:59 Polyethylene (Miralax Powder Packet) 17 gm DAILY PRN PO 05/11/17 21:00 06/10/17 20:59 Ondansetron HCl (Zofran Inj) 4 mg Q6H PRN IV 05/11/17 21:00 06/10/17 20:59 Heparin Sodium (Porcine) (Heparin Sq 5000 Unit/0.5ml) 5,000 unit Q12H SQ 05/12/17 06:00 06/11/17 05:59 05/14/17 06:32 5,000 UNIT Atorvastatin Calcium (Lipitor Tab) 40 mg QAM PO 05/12/17 09:00 06/11/17 08:59 05/14/17 09:51 40 MG Cyanocobalamin (Vitamin B-12 Tab) 1,000 mcg DAILY PO 05/12/17 09:00 06/11/17 08:59 05/14/17 09:51 1,000 MCG Folic Acid (Folvite Tab) 1 mg QAM PO 05/12/17 09:00 06/11/17 08:59 05/14/17 09:51 1 MG Metoprolol Tartrate (Lopressor Tab) 25 mg BID PO 05/12/17 09:00 06/11/17 08:59 05/14/17 09:52 25 MG Pantoprazole Sodium (Protonix Tab) 40 mg QAM PO 05/12/17 09:00 06/11/17 08:59 05/14/17 09:52 40 MG Tamsulosin HCl (Flomax Cap) 0.4 mg DAILY PO 05/12/17 09:00 06/11/17 08:59 05/14/17 09:52 0.4 MG Insulin Aspart (novoLOG ASPART) SLIDING SCALE G... ACHS SC 05/12/17 07:00 06/11/17 06:59 05/14/17 09:54 1 UNITS Glucose (Glucose 40% Gel) 15-30 GRAMS 15 GRAMS... UD PRN PO 05/11/17 23:15 06/10/17 23:14 Glucose (Glucose Chew Tab) 4-8 Tablets 4 Tabl... UD PRN PO 05/11/17 23:15 06/10/17 23:14 Dextrose (Dextrose 50% 50ML Syringe) 25-50ML OF 50% DW IV FOR... UD PRN IV 05/11/17 23:15 06/10/17 23:14 Glucagon (Glucagon Inj) 1 mg UD PRN SQ 05/11/17 23:15 06/10/17 23:14 Cefepime HCl 1000 mg/Syringe 11 ml @ 5.5 mls/min Q24H IV 05/13/17 06:00 05/22/17 05:59 05/14/17 06:32 5.5 MLS/MIN Cefepime HCl (Consult) 1 ea UD PRN N/A 05/12/17 05:00 06/11/17 04:59 Aspirin (Ecotrin Tab) 81 mg DAILY PO 05/13/17 09:00 06/12/17 08:59 05/14/17 09:50 81 MG Clopidogrel Bisulfate (plAVix TAB) 75 mg QAM PO 05/13/17 09:00 06/12/17 08:59 05/14/17 09:51 75 MG Enteral Nutritional Formula (Boost Glucose Control) 1 can BIDM PO 05/12/17 17:00 06/11/17 16:59 05/14/17 09:50 1 CAN Methenamine Hippurate (Urex Tab) 1 gm DAILY PO 05/13/17 09:00 06/12/17 08:59 05/14/17 09:52 1 GM Caspofungin 50 mg/ Sodium Chloride 260 ml @ 250 mls/hr DAILY@1200 IV 05/13/17 12:00 05/23/17 11:59 05/13/17 12:49 250 MLS/HR Magnesium Oxide (Mag-Ox Tab) 400 mg QAM PO 05/14/17 09:00 06/13/17 08:59 05/14/17 09:51 400 MG Daptomycin 375 mg/ Syringe 7.5 ml @ 3.75 mls/ min Q2D@1200 IV 05/14/17 12:00 05/22/17 11:59 Daptomycin (Consult) 1 ea UD PRN N/A 05/13/17 11:00 06/12/17 10:59 Impression (1) ATN (acute tubular necrosis) (2) Acute renal insufficiency (3) Hydronephrosis (4) Recurrent UTI (5) Hypertension (6) Urinary tract infection Chava Patel is a frail 67-year-old male with DM II, hypertension, CAD, chronic systolic CHF, neurogenic bladder, and multiple recent hospital admissions. This includes recent treatment for septic shock due to MSSA. Chava has acute renal failure consistent with ATN. Granular cast noted on urine microscopy. I cannot exclude a post renal obstructive component to renal dysfunction given persistent bilateral hydronephrosis. He has had recurrent UTI and may require additional intervention for decompression of the urinary system. At this time, he does not has systemic signs or symptoms of infection. Urine cultures pending. Urology following. Repeat CT scan pending. Volume status appropriate. TTE notable for reduced LV systolic function (35-40% ) with global and severe inferior wall hypokinesis, grade 1 diastolic dysfunction with mild dilation of the LV. Moderate MR noted. Baseline creatinine normal at 0.8 mg/dL. UA shows orange urine with +3 protein. Microscopic evaluation notable for >30 WBC, 10-30 RBC, granular cast. Renal US reviewed noting BL hydronephrosis. Lisinopril, HCTZ and metformin have been held. Recommendations -- AM labs pending -- Maintain Miller to gravity -- Repeat non contrast CT pending -- Monitor metabolic profile twice daily -- Maintain even fluid balance -- Document I/O's -- Hold lisinopril, HCTZ and metformin -- Encourage nutrition
[2017-05-14 10:27] LABS: BUN/CREATININE RATIO 15.9 (10-20); CALCIUM 7.8 mg/dl (8.5-10.1); CREATININE 3.73 mg/dl (0.60-1.40); MAGNESIUM 1.5 mg/dl (1.8-2.4); POTASSIUM 4.2 mmol/L (3.5-5.1)
[2017-05-14] MEDS ORDERED: MAGNESIUM SULFATE 1GM / D5W 1 GM in PREMIXED IN D5W 100 ML IV ONE (11:00)
[2017-05-14 11:12] VITALS: BP 120/67; PULSE 85; O2SAT 98
[2017-05-14] MEDS ORDERED: DAPTOmycin IV 375 MG in SYRINGE 0 ML IV SCH (12:00)
--- NOTE | 2017-05-14 12:08 | DIAGNOSTIC IMAGING REPORT ---
ABDOMEN AND PELVIS CT WITHOUT CONTRAST CT DOSE: 298.64 mGycm HISTORY: worsening renal failure TECHNIQUE: Multiaxial CT images of the abdomen and pelvis were performed without contrast. A dose lowering technique was utilized adhering to the principles of ALARA. COMPARISON STUDY: Abdomen and pelvis CT 02/28/2017. FINDINGS: The lung bases are clear. No fractures within the visualized osseous structures. Cholelithiasis. The unenhanced liver, adrenal glands, and pancreas are unremarkable. Bilateral perinephric edema has improved. There is fullness within the bilateral renal collecting systems without jose daniel hydronephrosis. This is also improved. There is mild bilateral urothelial thickening within the renal collecting systems and ureters. Punctate calcification within the left deep pelvis on image [phone] favors a phlebolith given the improvement in the hydronephrosis. However, a distal ureteral stone is not entirely excluded. Bladder is decompressed by Miller catheter. Gas within the bladder lumen due to the catheterization. There is soft tissue thickening surrounding the tip of the coccyx and a 1.4 cm fluid collection at this location. This favors a small abscess. There has been interval destruction at the coccyx tip. This is consistent with osteomyelitis. There appears to be a sacral decubitus ulcer at this location. There is also a fracture through the tip of the coccyx. Mild bladder wall thickening. Suboptimal evaluation for bowel pathology due to the lack of intravenous and oral contrast. Colonic diverticulosis. Moderate well-formed stool seen within the colon. No evidence for bowel obstruction. Small gastric fundal diverticulum. No retroperitoneal lymphadenopathy. There are suggestion of mild thickening of the distal descending colon and proximal sigmoid colon. There is also mild thickening of the rectum. IMPRESSION: 1. There is mild fullness within the bilateral renal collecting systems without jose daniel hydronephrosis. This is improved in the interval. There is also interval improvement in the bilateral perinephric edema. Bladder wall thickening persists. This favors a cystitis with a bilateral pyelonephritis. 2. Punctate calcification within the left deep pelvis persists. This favors a phlebolith given the improvement in the left-sided hydronephrosis. However, a distal left ureteral stone is considered less likely but not entirely excluded. 3. Interval osteomyelitis of the coccyx tip with a small surrounding abscess. There is also a fracture through the tip of the coccyx. 4. Suspect a mild nonspecific colitis involving the junction of the descending colon/sigmoid colon with a mild proctitis. Electronically signed by: Wale Cronin M.D. 05/14/2017 12:07 PM Dictated Date/Time: 05/14/2017 11:54 AM
[2017-05-14] MEDS: CASPOFUNGIN INJ 50 MG in SODIUM CHLORIDE 0.9% 250ML 250 ML IV SCH (12:40)
[2017-05-14] MEDS ORDERED: DAPTOmycin IV 375 MG in SODIUM CHLORIDE 0.9% 50ML 50 ML IV SCH (14:00)
--- NOTE | 2017-05-14 14:15 | Progress Note ---
Subjective Date of Service: May 14, 2017. Subjective Pt evaluation today including: conversation w/ patient, chart review, lab review Voiding: hallman catheter in place (patent, draining clear, yellow urine) 67 yo male with ARF, bilateral hydro, UR, and UTI. UC&S growing yeast, not donis albicans. He is currently receiving IV caspofungin per ID. Hallman catheter changed on 05-12-17. CT this morning showing improvement in his bilateral hydronephrosis, but he now has developed osteomyelitis of the coccyx it appears. Urine output has increased, and Cr improved slightly from 4.01 to 3.73 this morning as well. Pt reports pain over the sacral region. Requesting vanilla ice cream this afternoon. Problem List Medical Problems: (1) ARF (acute renal failure) Status: Acute (2) Dehydration Status: Acute (3) DKA (diabetic ketoacidoses) Status: Acute (4) Generalized weakness Status: Acute (5) Urinary tract infection Status: Acute Review of Systems Constitutional: No fever, No chills Respiratory: No shortness of breath Cardiac: No chest pain Abdomen: No pain, No nausea, No vomiting Musculoskeletal: + see HPI Male : No hematuria Heme: No abnormal bleeding/bruising Objective Vital Signs Date Time Temp Pulse Resp B/P (MAP) Pulse Ox O2 Delivery O2 Flow Rate FiO2 05/14/17 13:31 Room Air 05/14/17 08:15 36.6 80 18 124/60 (81) 98 Room Air 05/14/17 00:14 Room Air 05/14/17 00:07 36.6 87 18 104/64 (77) 98 Room Air 05/13/17 20:43 89 123/63 (83) 05/13/17 20:00 Room Air 05/13/17 16:00 118/63 (81) 05/13/17 15:54 36.8 77 22 95/56 (69) 97 Room Air Physical Exam General Appearance: no apparent distress Eyes: normal inspection ENT: hearing grossly normal Neck: no JVD Respiratory/Chest: no respiratory distress, no accessory muscle use Cardiovascular: no JVD Extremities: normal inspection Neurologic/Psychiatric: alert, normal mood/affect, oriented x 3 Skin: normal color Laboratory Results Last 24 Hours Test 05/13/17 16:26 05/13/17 18:53 05/13/17 20:13 05/14/17 07:49 Bedside Glucose 133 mg/dl 171 mg/dl 164 mg/dl Sodium Level 138 mmol/L Potassium Level 4.3 mmol/L Chloride Level 107 mmol/L Carbon Dioxide Level 24 mmol/L Anion Gap 7.0 mmol/L Blood Urea Nitrogen 59 mg/dl Creatinine 4.01 mg/dl Est Creatinine Clear Calc Drug Dose 15.7 ml/min Estimated GFR () 16.5 Estimated GFR (Non- 14.3 BUN/Creatinine Ratio 14.7 Random Glucose 161 mg/dl Calcium Level 7.7 mg/dl Test 05/14/17 09:03 05/14/17 11:12 White Blood Count 7.96 K/uL Red Blood Count 3.58 M/uL Hemoglobin 10.3 g/dL Hematocrit 32.0 % Mean Corpuscular Volume 89.4 fL Mean Corpuscular Hemoglobin 28.8 pg Mean Corpuscular Hemoglobin Concent 32.2 g/dl RDW Standard Deviation 54.3 fL RDW Coefficient of Variation 16.5 % Platelet Count 307 K/uL Mean Platelet Volume 10.1 fL Sodium Level 138 mmol/L Potassium Level 4.2 mmol/L Chloride Level 108 mmol/L Carbon Dioxide Level 21 mmol/L Anion Gap 9.0 mmol/L Blood Urea Nitrogen 59 mg/dl Creatinine 3.73 mg/dl Est Creatinine Clear Calc Drug Dose 15.5 ml/min Estimated GFR () 18.0 Estimated GFR (Non- 15.6 BUN/Creatinine Ratio 15.9 Random Glucose 206 mg/dl Calcium Level 7.8 mg/dl Magnesium Level 1.5 mg/dl Bedside Glucose 248 mg/dl Assessment and Plan A/P: UR, bilateral hydronephrosis, ARF, UTI AFVSS. Management of fungal UTI per ID. Bilateral hydro has improved on CT this morning. Cr improving. Avoid surgical intervention at this time. Will continue hallman catheter. Will continue to follow along with primary service.
--- NOTE | 2017-05-14 14:20 | Hospitalist Progress Note ---
Hospitalist Progress Note Date of Service May 14, 2017. (Alyssa Olivier .ARNOLDC) Subjective Pt evaluation today including: conversation w/ patient, physical exam, chart review, lab review, review of studies, conversation w/ customer consultant (spoke with Dr. Wood and Dr. Renteria), review of inpatient medication list Pain: 8/10 aching pain in sacrum PO Intake: Tolerating PO diet but poor appetite Voiding: hallman catheter in place Patient reports feeling well. He states that he is drinking his Boost. He does complain of an 8/10 aching pain in his sacrum which he states is relieved by Tylenol, although he has not been taking any here. He otherwise denies any new complaints. The patient denies fevers, chills, sweats, chest pain, palpitations, claudication, cough, wheezing, shortness of breath, nausea, vomiting, abdominal pain, dysuria, hematuria, urinary retention, paralysis, weakness, numbness and tingling. Additional Comments: See HPI for pertinent positives and negatives. All other systems reviewed and negative. (Alyssa Olivier ., SYD-C) Objective Vital Signs Date Time Temp Pulse Resp B/P (MAP) Pulse Ox O2 Delivery O2 Flow Rate FiO2 05/14/17 13:31 Room Air 05/14/17 08:15 36.6 80 18 124/60 (81) 98 Room Air 05/14/17 00:14 Room Air 05/14/17 00:07 36.6 87 18 104/64 (77) 98 Room Air 05/13/17 20:43 89 123/63 (83) 05/13/17 20:00 Room Air 05/13/17 16:00 118/63 (81) 05/13/17 15:54 36.8 77 22 95/56 (69) 97 Room Air (Alyssa Olivier ., SYD-C) Physical Exam Notes: General appearance: +Thin. No apparent distress Head: Normocephalic, atraumatic Eyes: Normal inspection, PERRL, EOMI ENT: Normal ENT inspection, hearing grossly normal, pharynx normal Neck: Supple, no JVD, trachea midline Respiratory/Chest: Lungs clear to auscultation, normal breath sounds, no respiratory distress Cardiovascular: Regular rate & rhythm, no gallop, no murmur Abdomen/GI: Normal bowel sounds, non-tender, soft Extremities/Musculoskeletal: Normal inspection, no calf tenderness, no pedal edema Neurological/Psych: Alert, normal mood/affect, oriented x 3 Skin: +Small decubitus ulcer at coccyx with surrounding erythema. Normal color , warm/dry, no rash (Alyssa Olivier ., KAYLA) Laboratory Results Last 24 Hours Test 05/13/17 16:26 05/13/17 18:53 05/13/17 20:13 05/14/17 07:49 Bedside Glucose 133 mg/dl 171 mg/dl 164 mg/dl Sodium Level 138 mmol/L Potassium Level 4.3 mmol/L Chloride Level 107 mmol/L Carbon Dioxide Level 24 mmol/L Anion Gap 7.0 mmol/L Blood Urea Nitrogen 59 mg/dl Creatinine 4.01 mg/dl Est Creatinine Clear Calc Drug Dose 15.7 ml/min Estimated GFR () 16.5 Estimated GFR (Non- 14.3 BUN/Creatinine Ratio 14.7 Random Glucose 161 mg/dl Calcium Level 7.7 mg/dl Test 05/14/17 09:03 05/14/17 11:12 White Blood Count 7.96 K/uL Red Blood Count 3.58 M/uL Hemoglobin 10.3 g/dL Hematocrit 32.0 % Mean Corpuscular Volume 89.4 fL Mean Corpuscular Hemoglobin 28.8 pg Mean Corpuscular Hemoglobin Concent 32.2 g/dl RDW Standard Deviation 54.3 fL RDW Coefficient of Variation 16.5 % Platelet Count 307 K/uL Mean Platelet Volume 10.1 fL Sodium Level 138 mmol/L Potassium Level 4.2 mmol/L Chloride Level 108 mmol/L Carbon Dioxide Level 21 mmol/L Anion Gap 9.0 mmol/L Blood Urea Nitrogen 59 mg/dl Creatinine 3.73 mg/dl Est Creatinine Clear Calc Drug Dose 15.5 ml/min Estimated GFR () 18.0 Estimated GFR (Non- 15.6 BUN/Creatinine Ratio 15.9 Random Glucose 206 mg/dl Calcium Level 7.8 mg/dl Magnesium Level 1.5 mg/dl Bedside Glucose 248 mg/dl (Alyssa Olivier .KAYLA) Diagnostic Results Reviewed the following studies and agree with interpretation as follows: Patient Name: BHUMI GALEAS Unit Number: [id number] Dictated: 05/14/17 1154 Transcribed: 05/14/17 115 PA Printed Date/Time: [~ rep prt dt]/[~ rep prt tm] [~ rep ct labl] - [~ rep ct ivnm] [facility] [place] [address] Dictated: 05/14/171153 Transcribed: 05/14/171153 PAJ Printed Date/Time: [~ rep prt dt]/[~ rep prt tm] [~ rep ct labl] - [~ rep ct ivnm] Patient: BHUMI GALEAS Address1: [address] Rec: [id number] Address2: Acct ID: [id number] [facility] Zip: [place] [address] Date: 1950 Sex: M Room/Bed: W256-2 Ref Phy: Barb Gray M.D. SC: [id number] Att Phy: Maryellen Walters MD Report #: [id number] Ebonie Phy: Barb Gray M.D. Test: APWO Admit Phy: Douglas Jerry M.D. Optical Manager: MADONNA Interpreting Phy: Wale Cronin MD Diagnosis: ARF Ordering Phy: Alyssa Olivier PA-C Service Date: 05/14/17 Admit Date: 05/11/1711/06/17 MNE: [id number] CONF: DICTATED BY: Wale Cronin M.D.]] CC: Alyssa Olivier PA-C Saleeby, Hussam G., M.D. Tussey, Natalie B., MD Endcc: [~ rep ct add3]] ABDOMEN AND PELVIS CT WITHOUT CONTRAST CT DOSE: 298.64 mGycm HISTORY: worsening renal failure TECHNIQUE: Multiaxial CT images of the abdomen and pelvis were performed without contrast. A dose lowering technique was utilized adhering to the principles of ALARA. COMPARISON STUDY: Abdomen and pelvis CT 02/28/2017. FINDINGS: The lung bases are clear. No fractures within the visualized osseous structures. Cholelithiasis. The unenhanced liver, adrenal glands, and pancreas are unremarkable. Bilateral perinephric edema has improved. There is fullness within the bilateral renal collecting systems without jose daniel hydronephrosis. This is also improved. There is mild bilateral urothelial thickening within the renal collecting systems and ureters. Punctate calcification within the left deep pelvis on image 426 favors a phlebolith given the improvement in the hydronephrosis. However, a distal ureteral stone is not entirely excluded. Bladder is decompressed by Hallman catheter. Gas within the bladder lumen due to the catheterization. There is soft tissue thickening surrounding the tip of the coccyx and a 1.4 cm fluid collection at this location. This favors a small abscess. There has been interval destruction at the coccyx tip. This is consistent with osteomyelitis. There appears to be a sacral decubitus ulcer at this location. There is also a fracture through the tip of the coccyx. Mild bladder wall thickening. Suboptimal evaluation for bowel pathology due to the lack of intravenous and oral contrast. Colonic diverticulosis. Moderate well-formed stool seen within the colon. No evidence for bowel obstruction. Small gastric fundal diverticulum. No retroperitoneal lymphadenopathy. There are suggestion of mild thickening of the distal descending colon and proximal sigmoid colon. There is also mild thickening of the rectum. IMPRESSION: 1. There is mild fullness within the bilateral renal collecting systems without jose daniel hydronephrosis. This is improved in the interval. There is also interval improvement in the bilateral perinephric edema. Bladder wall thickening persists. This favors a cystitis with a bilateral pyelonephritis. 2. Punctate calcification within the left deep pelvis persists. This favors a phlebolith given the improvement in the left-sided hydronephrosis. However, a distal left ureteral stone is considered less likely but not entirely excluded. 3. Interval osteomyelitis of the coccyx tip with a small surrounding abscess. There is also a fracture through the tip of the coccyx. 4. Suspect a mild nonspecific colitis involving the junction of the descending colon/sigmoid colon with a mild proctitis. Electronically signed by: Wale Cronin M.D. 05/14/2017 12:07 PM Dictated Date/Time: 05/14/2017 11:54 AM The status of this report is Signed. Draft = Not yet reviewed or approved by Radiologist. Signed = Reviewed and approved by Radiologist. <AttendingPhy>Maryellen Walters MD</AttendingPhy> <FamilyPhy>Barb Gray M.D.</FamilyPhy> <PrimaryPhy>Barb Gray M.D.</PrimaryPhy> < UnitNumber>[id number]</UnitNumber> <VisitNumber>[id number]</VisitNumber> < PatientName>BHUMI GALEAS</PatientName> <DateOfBirth>1950</DateOfBirth> < Location>[facility]</Location> <ServiceDate>05/11/17</ServiceDate> <MNE>ESINDI</MNE > <OrderingPhy>Alyssa Olivier PA-C</OrderingPhy> <OrderingPhyMNE>f rep ord dr tejeda</OrderingPhyMNE> <DictatingPhyMNE>f rep dict dr tejeda</DictatingPhyMNE> < CCListMNE>f rep ct mne</CCListMNE> <AdmittingPhyMNE>f pt admit dr tejeda</ AdmittingPhyMNE> <AttendingPhyMNE>f pt attend dr tejeda</AttendingPhyMNE> <ConsultingPhyMNE>f pt consult dr tejeda</ConsultingPhyMNE> <FamilyPhyMNE>f pt fam dr tejeda</FamilyPhyMNE> <OtherPhyMNE>f pt other dr tejeda</OtherPhyMNE> < PrimaryPhyMNE>f pt prim care dr tejeda</PrimaryPhyMNE> <ReferringPhyMNE>f pt referring dr tejeda</ReferringPhyMNE> (Alyssa Olivier .KAYLA) Assessment and Plan 67 y/o male with a history of DM II, systolic CHF, BPH with obstructive uropathy , chronic Hallman, severe protein-calorie malnutrition, chronic lower extremity ulcers, myeloproliferate disorder and recent NSTEMI February 2017 who presents with weakness per home health nurse. Acute renal failure--improving -Admit to med/surg -Baseline creatinine had been 0.8, creatinine on admission was 3.69 -Creatinine improved to 3.73 on 05/14 -Recently started on HCTZ and lisinopril within last few months. Will continue to hold these meds as well as metformin -D/C IVF -Nephrology consulted, appreciate recs: Spoke to Dr. Renteria. Renal failure secondary to ATN, will take some time to resolve. Agree with noncontrast CT. Maintain even fluid balance. -Renal ultrasound with mild/moderate bilateral renal hydronephrosis and possible pyelonephritis -Urine creatinine and urine sodium WNL -CT a/p shows interval improvement of hydronephrosis, no jose daniel hydro seen. Interval improvement of bilateral perinephric edema. Bladder wall thickening persists consistent w/cystitis and b/l pyelo. Interval osteomyelitis of coccyx tip with small surrounding 1.4 cm abscess. Fracture through tip of coccyx. Suggested thickening of distal descending colon, prox sigmoid colon, and rectum. Sepsis secondary to UTI and pyelonephritis due to chronic indwelling Hallman catheter--improving -Leukocytosis remains stable, WNL -UA positive for yeast -Urine culture positive for non-donis yeast. -Blood cultures pending. BCX obtained after 1 dose of Cefepime -Infectious disease consulted, appreciate recs: Can d/c Cefepime. Continue caspofungin for UTI. Dapto and zosyn for osteomyelitis -Continue caspofungin 50 mg IV qd. Day #3 -D/C cefepime Coccyx osteomyelitis w/surround abscess and fracture at coccyx tip -Consult general surgery, appreciate recs -Consult wound care provider, appreciate recs -Daptomycin IV. Day #3 -Start Zosyn BPH with bladder outlet obstruction, chronic Hallman--ongoing -Urology consulted, appreciate recs: Spoke with Jaylin Reyes. [place] improved on CT and creatinine improving. Urine output improved. No surgical intervention/stents at this time. -Change indwelling Hallman 05/12 due to UTI POA, then change q month per urology -Continue Flomax 0.4 mg PO hs Hypomagnesemia--ongoing -Magnesium 1.5 on 05/14 -Mag sulfate 1 gm IV x 1 -Increase mag oxide to 400 mg PO BID -Continue to monitor Chronic systolic CHF--stable, no acute exacerbation -IVF d/c'd -Continue Lopressor 25 mg PO BID -Lisinopril and HCTZ held -Repeat echo without any significant changes. EF still 35-40%. Grade 1 diastolic dysfunction. Global hypokinesis with severe hypokinesis of basal inferior wall. CAD, h/o NSTEMI--stable, asymptomatic. EKG no ischemic changes. Trop negative -Resume ASA, Plavix. No procedures at this time -Continue atorvastatin 40 mg PO qd DM II--last HgbA1c checked 03/03/17 was 8.6 -Hold metformin -Insulin sliding scale -Check BSGs q ac and qhs Myeloproliferative disease--stable -RBC, Hgb counts actually improved from February Chronic LE ulcers, pressure ulcers on left heel and sacrum POA -Wound care nurse consulted -Wound care provider consulted as above Severe protein calorie malnutrition -Nutrition consulted, continue Boost -Consult gastroenterology due to anemia, colon thickening, intermittent diarrhea , weight loss. Concern for possible cancer. Pt has not had a colonoscopy. DVT prophylaxis -Heparin 5000 units SC q12h Code Status -Level I, FULL RESUSCITATION STATUS (Alyssa Olivier, KAYLA) Reviewed: Pt Seen/Exam by Me (Maryellen Walters MD) History Resident Physician Supervision Note: I interviewed and examined the patient. Discussed with SYD Olivier and agree with findings and plan as documented in the note. Any exceptions or clarifications are listed here: Pt is a 67 yo male with a complex PMH most notable for BPH with obstructive uropathy, UTIs with septic shock, neurogenic bladder with hydronephrosis, CAD with NSTEMI in setting of septic shock, ischemic CM with EF 35%, chronic systolic and diastolic CHF, severe protein calorie malnutrition, MSSA bacteremia and elbow abscess, DMII, anemia, here with MACY, sepsis, and UTI/ pyelonephritis. Patient had sacral abscess I&D today by surgery at the bedside and is now packed. He is adamant that he will be going home from here although I voiced my disagreement in that that would not be safe. He will likely need many weeks of IV antibiotics, and has great difficulty moving with multiple falls. Patient voices concern that he will lose his job and lose his house. Labs reviewed Vitals reviewed Very thin, cachectic, muscle wasting, temporal wasting, sarcopenia diffusely NAD, AAOx3 RRR 2/6 CANDIS at [facility] CTAB no wcr Abd +BS soft NT ND, Hallman in place draining clear yellow urine Ext no edema, 2+ DP pulses Skin multiple superficial abrasions on knees and large eschar on left heel, sacral wound is packed and dressed Pt is a 67 yo male with a complex PMH most notable for BPH with obstructive uropathy, UTIs with septic shock, neurogenic bladder with hydronephrosis, CAD with NSTEMI in setting of septic shock, ischemic CM with EF 35%, chronic systolic CHF, severe protein calorie malnutrition, MSSA bacteremia and elbow abscess, DMII, anemia, here with MACY, sepsis, and UTI/pyelonephritis, now also with sacral decubitus with underlying abscess and coccyx osteomyelitis MACY-Finally improving, secondary to ATN,, prerenal in nature, pt says was drinking maybe 1-2 glasses water total daily. ATN with granular casts likely from hypovolemia. Bilateral hydro on Renal US is chronic from previous and had flaccid bladder on cystoscopy last month, with indwelling Hallman. With pyelo with fungal and bacterial infection likely. Hopeful that creatinine will continue to improve. Hydronephrosis improved on CT scan abdomen/pelvis today Appreciate Urol consult-d/w Ms. Reyes of Urology, because hydro present previously with normal renal function, probably not causing his current MACY. Would not want to place ureteral stents in due to risk of complications unless worsening condition Appreciate nephrology consultation -Continue to Follow PRP daily -Continue Hallman catheter Chronic systolic biventricular CHF/CAD/history of NSTEMI-Does have moderately reduced LVEF as well as RV systolic function on ECHO that is stable after NSTEMI 2 months ago. CHF could be contributing to renal failure. Was also on HCTZ, ACEI, metformin, and Mobic also listed in outpt record. All those meds are now being held. -Will need cardiology follow-up at some point as an outpatient -Watch for volume overload -Can use aspirin, Plavix, statin UTI/pyelonephritis/sepsis/coccyx osteomyelitis and sacral decubitus with abscess /coccyx fracture-Appreciate ID recommendations abx caspofungin for Ur cx which is growing yeast that is not Donis albicans, follow BCxs -Continue daptomycin and cefepime discontinued in favor of Zosyn -Appreciate general surgery consultation for I&D of sacral abscess -Offload the coccyx -Follow culture from sacral abscess Thickened colon and rectum with intermittent diarrhea, history of heme positive stool/significant weight loss-weight loss likely due to chronic inflammation and recurrent infections and hospitalizations, however has never had a colonoscopy. Appreciate GI consultation today-offered EGD and colonoscopy in the near future, patient is deciding about that. No current diarrhea -Severe protein calorie malnutrition-suspect all related to poor by mouth intake , chronic illness. Again encouraged Boost Glucose control ordered for improved nutrition, strongly encouraged patient to get out of bed with the nurses to the chair and to participate in PT -Consult psychiatry to evaluate for depression as well as treatment for his OCD which may be detrimental to his overall health improving-I discussed the case with the psychiatric nurse liaison Documented By: Maryellen Walters (Maryellen Walters MD)
[2017-05-14] MEDS ORDERED: NURSING VERBAL MED ORDER ONE (14:30)
[2017-05-14] MEDS ORDERED: PIPERACILL/TAZOBAC CONSULT ACTIVE PRN (14:45)
[2017-05-14] MEDS ORDERED: LIDOCAINE HCL 1% 20 ML VIAL ONE (14:52)
[2017-05-14] MEDS ORDERED: PIPERACILL/TAZOBAC IV 3.375 GM in DEXTROSE 5% 100ML IV ONE (15:00)
--- NOTE | 2017-05-14 15:03 | Surgery Consultation ---
Consultation Date of Consultation: May 14, 2017. Attending Physician: Maryellen Walters MD History of Present Illness 67 y/o M Hx DM, CHF, CAD, protein malnutrition and chronic LE ulcers, anemia, BPH with obstructive uropathy and an indwelling Miller. Recent complex history as follows - admitted with DKA and UTI 12/20 - had degree of obstructive uropathy and required Miller placement - returned to hospital 02/19 with weakness and diagnosed with urosepsis - evolved into septic shock leading to a NSTEMI and diagnosis of CHF. Pt was evaluated by a visiting nurse today and was noted to be exceptionally weak although he did not necessarily agree with the assessment. Initial labs were obtained in the ER revealing ARF in addition to leukocytosis. The pt continues to require a Miller and states that he has been making urine and emptying his Miller bag regularly. We are pending a UA on admission. He has a borderline low BP which may be chronic, and is afebrile, although it is noted that he did not sport a fever during the previous admission for urosepsis. He denies lightheadedness, rigors or significant urethral pain. I got a call for consult . Interval osteomyelitis of the coccyx tip with a small surrounding abscess. There is also a fracture through the tip of the coccyx. pt aicha fever, no diarrhea, Past Medical/Surgical History Medical Problems: (1) ARF (acute renal failure) Status: Acute (2) Dehydration Status: Acute (3) DKA (diabetic ketoacidoses) Status: Acute (4) Generalized weakness Status: Acute (5) Urinary tract infection Status: Acute Family History No pertinent family history Social History Smoking Status: Former Smoker Smokeless Tobacco Use: No Alcohol Use: occasionally Drug Use: none Marital Status: single Housing Status: lives alone Occupation Status: employed Allergies Coded Allergies: No Known Allergies (Unverified , 02/27/17) Home Medications Scheduled Aspirin (Aspirin Ec), 81 MG PO DAILY Atorvastatin (Atorvastatin Calcium), 40 MG PO QAM Cholecalciferol (Vitamin D), 1,000 UNITS PO DAILY Clopidogrel Bisulfate (Clopidogrel), 75 MG PO QAM Cyanocobalamin (Vitamin B-12), 1,000 MCG PO DAILY Folic Acid (Folic Acid), 1 MG PO QAM Hydrochlorothiazide (Hydrochlorothiazide), 12.5 MG PO DAILY Insulin Glargine (Lantus Solostar), Unknown Dose SC QPM Lisinopril (Lisinopril), 2.5 MG PO QAM Metformin Hcl (Glucophage), 1,000 MG PO BID Methenamine Hippurate (Methenamine Hippurate), 1 GM PO DAILY Metoprolol Tartrate (Lopressor), 25 MG PO BID Pantoprazole (Pantoprazole Sodium), 40 MG PO QAM Tamsulosin Hcl (Flomax), 0.4 MG PO DAILY Tocopheryl Acet,Dl-Alpha (Vitamin E), 100 UNITS PO DAILY Current Inpatient Medications Current Inpatient Medications Medications (Trade) Dose Ordered Sig/Nilda Route Start Time Stop Time Status Last Admin Dose Admin Acetaminophen (Tylenol Tab) 650 mg Q4H PRN PO 05/11/17 21:00 06/10/17 20:59 05/14/17 14:30 650 MG Polyethylene (Miralax Powder Packet) 17 gm DAILY PRN PO 05/11/17 21:00 06/10/17 20:59 Ondansetron HCl (Zofran Inj) 4 mg Q6H PRN IV 05/11/17 21:00 06/10/17 20:59 Heparin Sodium (Porcine) (Heparin Sq 5000 Unit/0.5ml) 5,000 unit Q12H SQ 05/12/17 06:00 06/11/17 05:59 05/14/17 06:32 5,000 UNIT Atorvastatin Calcium (Lipitor Tab) 40 mg QAM PO 05/12/17 09:00 06/11/17 08:59 05/14/17 09:51 40 MG Cyanocobalamin (Vitamin B-12 Tab) 1,000 mcg DAILY PO 05/12/17 09:00 06/11/17 08:59 05/14/17 09:51 1,000 MCG Folic Acid (Folvite Tab) 1 mg QAM PO 05/12/17 09:00 06/11/17 08:59 05/14/17 09:51 1 MG Metoprolol Tartrate (Lopressor Tab) 25 mg BID PO 05/12/17 09:00 06/11/17 08:59 05/14/17 09:52 25 MG Pantoprazole Sodium (Protonix Tab) 40 mg QAM PO 05/12/17 09:00 06/11/17 08:59 05/14/17 09:52 40 MG Tamsulosin HCl (Flomax Cap) 0.4 mg DAILY PO 05/12/17 09:00 06/11/17 08:59 05/14/17 09:52 0.4 MG Insulin Aspart (novoLOG ASPART) SLIDING SCALE G... ACHS SC 05/12/17 07:00 06/11/17 06:59 05/14/17 12:00 3 UNITS Glucose (Glucose 40% Gel) 15-30 GRAMS 15 GRAMS... UD PRN PO 05/11/17 23:15 06/10/17 23:14 Glucose (Glucose Chew Tab) 4-8 Tablets 4 Tabl... UD PRN PO 05/11/17 23:15 06/10/17 23:14 Dextrose (Dextrose 50% 50ML Syringe) 25-50ML OF 50% DW IV FOR... UD PRN IV 05/11/17 23:15 06/10/17 23:14 Glucagon (Glucagon Inj) 1 mg UD PRN SQ 05/11/17 23:15 06/10/17 23:14 Aspirin (Ecotrin Tab) 81 mg DAILY PO 05/13/17 09:00 06/12/17 08:59 05/14/17 09:50 81 MG Clopidogrel Bisulfate (plAVix TAB) 75 mg QAM PO 05/13/17 09:00 06/12/17 08:59 05/14/17 09:51 75 MG Enteral Nutritional Formula (Boost Glucose Control) 1 can BIDM PO 05/12/17 17:00 06/11/17 16:59 05/14/17 09:50 1 CAN Methenamine Hippurate (Urex Tab) 1 gm DAILY PO 05/13/17 09:00 06/12/17 08:59 05/14/17 09:52 1 GM Caspofungin 50 mg/ Sodium Chloride 260 ml @ 250 mls/hr DAILY@1200 IV 05/13/17 12:00 05/23/17 11:59 05/14/17 12:40 250 MLS/HR Magnesium Oxide (Mag-Ox Tab) 400 mg BID PO 05/14/17 21:00 06/13/17 08:59 Daptomycin 375 mg/ Sodium Chloride 57.5 ml @ 100 mls/hr Q2D IV 05/14/17 14:00 06/25/17 13:59 UNV Piperacillin Sod/ Tazobactam Sod 3.375 gm/Dextrose 115 ml @ 200 mls/hr Q6 IV 05/14/17 18:00 06/25/17 17:59 UNV Miscellaneous Information (Nursing Verbal Med Order) 1 ea ONE ONCE N/A 05/14/17 14:30 05/14/17 14:31 UNV Review of Systems Constitutional: No fever, No chills, No sweats, No weight loss, No weakness, No fatigue, No problem reported Eyes: No worsening of vision, No eye pain, No redness, No discharge, No diplopia, No problem reported ENT: No hearing loss, No unusual epistaxis, No nasal symptoms, No sore throat, No tinnitus, No dental problems, No trouble swallowing, No problem reported Respiratory: No cough, No sputum, No wheezing, No shortness of breath, No dyspnea on exertion, No dyspnea at rest, No hemoptysis, No problem reported Cardiovascular: No chest pain, No orthopnea, No PND, No edema, No claudication , No palpitations, No problem reported Abdomen: + problem reported (2x2cm ulcer on sacrum, no drainage, some redness, tenderness, ), No pain, No nausea, No vomiting, No diarrhea, No constipation, No GI bleeding Neurologic: No memory loss, No paralysis, No weakness, No numbness/tingling, No vertigo, No balance problems, No problem reported Psychiatric: No depression symptoms, No anhedonism, No anxiety, No insomnia, No substance abuse, No problem reported Endocrine: No fatigue, No excessive thirst, No excessive urination, No problem reported Hematologic / Lymphatic: No abnormal bleeding/bruising, No clotting problems, No swollen lymph nodes, No night sweats, No problem reported Physical Exam Date Time Temp Pulse Resp B/P (MAP) Pulse Ox O2 Delivery O2 Flow Rate FiO2 05/14/17 13:31 Room Air 05/14/17 08:15 36.6 80 18 124/60 (81) 98 Room Air 05/14/17 00:14 Room Air 05/14/17 00:07 36.6 87 18 104/64 (77) 98 Room Air 05/13/17 20:43 89 123/63 (83) 05/13/17 20:00 Room Air 05/13/17 16:00 118/63 (81) 05/13/17 15:54 36.8 77 22 95/56 (69) 97 Room Air General Appearance: WD/WN, no apparent distress Head: normocephalic Eyes: normal inspection ENT: normal ENT inspection Neck: supple, no JVD Respiratory/Chest: chest non-tender, lungs clear, normal breath sounds Cardiovascular: regular rate, rhythm, no edema, no gallop, no JVD Abdomen/GI: normal bowel sounds, non tender, soft, no organomegaly (2x2cm ulcer , II degree, somev redness, tenderness, ) Skin: normal color, warm/dry, no rash Laboratory Results Last 24 Hours Test 05/13/17 16:26 05/13/17 18:53 05/13/17 20:13 05/14/17 07:49 Bedside Glucose 133 mg/dl 171 mg/dl 164 mg/dl Sodium Level 138 mmol/L Potassium Level 4.3 mmol/L Chloride Level 107 mmol/L Carbon Dioxide Level 24 mmol/L Anion Gap 7.0 mmol/L Blood Urea Nitrogen 59 mg/dl Creatinine 4.01 mg/dl Est Creatinine Clear Calc Drug Dose 15.7 ml/min Estimated GFR () 16.5 Estimated GFR (Non- 14.3 BUN/Creatinine Ratio 14.7 Random Glucose 161 mg/dl Calcium Level 7.7 mg/dl Test 05/14/17 09:03 05/14/17 11:12 White Blood Count 7.96 K/uL Red Blood Count 3.58 M/uL Hemoglobin 10.3 g/dL Hematocrit 32.0 % Mean Corpuscular Volume 89.4 fL Mean Corpuscular Hemoglobin 28.8 pg Mean Corpuscular Hemoglobin Concent 32.2 g/dl RDW Standard Deviation 54.3 fL RDW Coefficient of Variation 16.5 % Platelet Count 307 K/uL Mean Platelet Volume 10.1 fL Sodium Level 138 mmol/L Potassium Level 4.2 mmol/L Chloride Level 108 mmol/L Carbon Dioxide Level 21 mmol/L Anion Gap 9.0 mmol/L Blood Urea Nitrogen 59 mg/dl Creatinine 3.73 mg/dl Est Creatinine Clear Calc Drug Dose 15.5 ml/min Estimated GFR () 18.0 Estimated GFR (Non- 15.6 BUN/Creatinine Ratio 15.9 Random Glucose 206 mg/dl Calcium Level 7.8 mg/dl Magnesium Level 1.5 mg/dl Bedside Glucose 248 mg/dl Assessment & Plan 67 y/o M Hx DM, CHF, CAD, protein malnutrition and chronic LE ulcers, anemia, BPH with obstructive uropathy and an indwelling Miller. Recent complex history as follows - admitted with DKA and UTI 12/20 - had degree of obstructive uropathy and required Miller placement - returned to hospital 02/19 with weakness and diagnosed with urosepsis - evolved into septic shock leading to a NSTEMI and diagnosis of CHF. CT scan DX- IMPRESSION: 1. There is mild fullness within the bilateral renal collecting systems without jose daniel hydronephrosis. This is improved in the interval. There is also interval improvement in the bilateral perinephric edema. Bladder wall thickening persists. This favors a cystitis with a bilateral pyelonephritis. 2. Punctate calcification within the left deep pelvis persists. This favors a phlebolith given the improvement in the left-sided hydronephrosis. However, a distal left ureteral stone is considered less likely but not entirely excluded. 3. Interval osteomyelitis of the coccyx tip with a small surrounding abscess. There is also a fracture through the tip of the coccyx. 4. Suspect a mild nonspecific colitis involving the junction of the descending colon/sigmoid colon with a mild proctitis. Plan: I recommend to do I/D abscess sacrum at bedside, D/W benefits, risks and alternatives of the procedure, the risks- infection, bleeding, unhealing wound, pt understood, he agrees with the plan, i answered all questions,
[2017-05-14 15:09] VITALS: BP 94/36; PULSE 77; TEMP 36.6; O2SAT 98
[2017-05-14] MEDS ORDERED: MoRPHine SULFATE 2 MG/ML CARP ONE (15:11)
--- NOTE | 2017-05-14 15:31 | [facility] Post Operative Brief Note ---
Immediate Operative Summary Operative Date May 14, 2017. Pre-Operative Diagnosis abscess sacrum Post-Operative Diagnosis same Procedure(s) Performed I/D abscess at sacrum Surgeon Ralf Camacho [employer] Manager Surgeon(s) nurse Estimated Blood Loss 2 ml Findings abscess at sacrum area, size 2x2cm wound culture sent Specimens wound culture Drains packing the wound Anesthesia local Complication(s) None Disposition Recovery Room / PACU
--- NOTE | 2017-05-14 15:33 | Surgery Progress Note ---
Surgery Progress Note Date of Service May 14, 2017. Objective Vital Signs: Date Time Temp Pulse Resp B/P (MAP) Pulse Ox O2 Delivery O2 Flow Rate FiO2 05/14/17 15:09 36.6 77 18 94/36 (55) 98 Room Air 05/14/17 13:31 Room Air 05/14/17 11:12 85 98 05/14/17 08:15 36.6 80 18 124/60 (81) 98 Room Air 05/14/17 00:14 Room Air 05/14/17 00:07 36.6 87 18 104/64 (77) 98 Room Air 05/13/17 20:43 89 123/63 (83) 05/13/17 20:00 Room Air 05/13/17 16:00 118/63 (81) 05/13/17 15:54 36.8 77 22 95/56 (69) 97 Room Air Laboratory Results: Results Past 24 Hours Test 05/13/17 16:26 05/13/17 18:53 05/13/17 20:13 05/14/17 07:49 Range/Units Bedside Glucose 133 171 164 70-99 mg/dl Sodium Level 138 136-145 mmol/L Potassium Level 4.3 3.5-5.1 mmol/L Chloride Level 107 98-107 mmol/L Carbon Dioxide Level 24 21-32 mmol/L Anion Gap 7.0 3-11 mmol/L Blood Urea Nitrogen 59 7-18 mg/dl Creatinine 4.01 0.60-1.40 mg/dl Est Creatinine Clear Calc Drug Dose 15.7 ml/min Estimated GFR () 16.5 Estimated GFR (Non- 14.3 BUN/Creatinine Ratio 14.7 10-20 Random Glucose 161 70-99 mg/dl Calcium Level 7.7 8.5-10.1 mg/dl Test 05/14/17 09:03 05/14/17 11:12 Range/Units White Blood Count 7.96 4.8-10.8 K/uL Red Blood Count 3.58 4.7-6.1 M/uL Hemoglobin 10.3 14.0-18.0 g/dL Hematocrit 32.0 42-52 % Mean Corpuscular Volume 89.4 80-100 fL Mean Corpuscular Hemoglobin 28.8 25-34 pg Mean Corpuscular Hemoglobin Concent 32.2 32-36 g/dl RDW Standard Deviation 54.3 36.4-46.3 fL RDW Coefficient of Variation 16.5 11.5-14.5 % Platelet Count 307 130-400 K/uL Mean Platelet Volume 10.1 7.4-10.4 fL Sodium Level 138 136-145 mmol/L Potassium Level 4.2 3.5-5.1 mmol/L Chloride Level 108 98-107 mmol/L Carbon Dioxide Level 21 21-32 mmol/L Anion Gap 9.0 3-11 mmol/L Blood Urea Nitrogen 59 7-18 mg/dl Creatinine 3.73 0.60-1.40 mg/dl Est Creatinine Clear Calc Drug Dose 15.5 ml/min Estimated GFR () 18.0 Estimated GFR (Non- 15.6 BUN/Creatinine Ratio 15.9 10-20 Random Glucose 206 70-99 mg/dl Calcium Level 7.8 8.5-10.1 mg/dl Magnesium Level 1.5 1.8-2.4 mg/dl Bedside Glucose 248 70-99 mg/dl Assessment & Plan under local anesthesia, I/D abscess on sacrum, the wound culture sent, packing the wound, pt tolerated the procedure well, Plan, consult wound care Doctor, and nurse, change packing once a day will F/U,
--- NOTE | 2017-05-14 16:09 | OPERATIVE REPORT ---
DATE OF OPERATION: 05/14/2017 PREOPERATIVE DIAGNOSIS: Abscess sacrum. POSTOPERATIVE DIAGNOSIS: Abscess sacrum. PROCEDURE: I&D abscess sacrum. SURGEON: Ralf Camacho M.D. ANESTHESIA: Local. ESTIMATED BLOOD LOSS: About 2 mL. FINDINGS: Abscess is sized about 2 x 2 cm, some pus, wound culture sent. COMPLICATIONS: None. INDICATIONS FOR THE PROCEDURE: This is a 67-year-old gentleman who was admitted to hospital for weakness and chronic wound on the sacrum. The patient had a CT showed abscess on the sacrum. The patient's daughter required to do I&D abscess. I did talk to the patient about the benefit and risk, alternate procedure. I indicated the risks may include but not limited such as bleeding, infection, healing wound, may need more procedure. The patient understands. He signed informed consent and I answered all questions. DETAILS OF PROCEDURE: We prepared to do the I&D abscess at the patient's bedside. The patient does not want to go to the OR. After a timeout, I prepped the low back and abscess area routine sterile fashion and then I injected 1% lidocaine around the abscess. Then I made about 2 cm incision. There was some pus come out. We did send wound culture. Once we cleaned up the abscess packing the wound. Hemostasis was obtained. We put the dressing on. The patient tolerated the procedure well. After the procedure, I gave patient the postop care instructions. The patient will have his wound repacking once a day and I will follow up patient. I attest to the content of the Intraoperative Record and any orders documented therein. Any exceptions are noted below. MTDOsito
--- NOTE | 2017-05-14 16:15 | Gastrointestinal Consultation ---
Gastrointestinal Consultation Date of Consultation: May 14, 2017 Attending Physician: DR Izabela Gray Consulting Physician: Dr Sin Sanabria Reason for Consultation: anemia, colon thickening, wt loss History of Present Illness Patient is a 67 year old male admitted with chief complaint of falling. HPI He denies any GI problems. No bloody nor black stools. NO diarrhea except with Glucerna. No constipation. No abd pain. States he has no abd complaint. On reviewing records he was seen during hospitlazation 02/2017 by GI for heme pos stool and diarrhea. No colonoscopy done secondary to UT during that admit. Cardiac cath was recommended then and he refused. He was sent to rehab only at home for about 3 weeks. He states lost overall about 30 pounds. At home is getting meals on wheels. He came in to hospital this time for weakness, falling , and acute kidney injury. CT A/P showed mild thickening of DC and prox sigmoid colon, osteomyelitis of coccyx with abscess, and bilateral hydrnephrosis. He was seen by nephrology, urology, and ID. Gen surgery did I and D of coccyx abscess today. Urine is growing Fungal organisms. Past Medical/Surgical History Medical Problems: (1) ARF (acute renal failure) Status: Acute (2) Dehydration Status: Acute (3) DKA (diabetic ketoacidoses) Status: Acute (4) Generalized weakness Status: Acute (5) Urinary tract infection Status: Acute Family History No pertinent family history non contributory Social History Smoking Status: Former Smoker Drug Use: none Marital Status: single Housing Status: lives alone Occupation Status: employed Allergies Coded Allergies: No Known Allergies (Unverified , 02/27/17) Current Medications Home Meds and Scripts Medications Dose Route/Sig Max Daily Dose Days Date Category Methenamine Hippurate 1 Gm Tab 1 Gm PO DAILY 05/11/17 Reported Folic Acid 1 Mg Tab 1 Mg PO QAM 30 03/09/17 Rx Pantoprazole Sodium (Pantoprazole) 40 Mg Tab 40 Mg PO QAM 30 03/09/17 Rx Lopressor (Metoprolol Tartrate) 25 Mg Tab 25 Mg PO BID 30 03/09/17 Rx Lisinopril 2.5 Mg Tab 2.5 Mg PO QAM 30 03/09/17 Rx Atorvastatin Calcium (Atorvastatin) 40 Mg Tab 40 Mg PO QAM 30 03/09/17 Rx Clopidogrel (Clopidogrel Bisulfate) 75 Mg Tab 75 Mg PO QAM 30 03/09/17 Rx Lantus Solostar (Insulin Glargine) 100 Unit/Ml Inj Unknown Dose SC QPM 02/27/17 Reported Flomax (Tamsulosin Hcl) 0.4 Mg Cap 0.4 Mg PO DAILY 02/27/17 Reported Glucophage (Metformin Hcl) 1,000 Mg Tab 1,000 Mg PO BID 02/27/17 Reported Vitamin E (Tocopheryl Acet,Dl-Alpha) 100 Interunit Cap 100 Units PO DAILY 02/27/17 Reported Vitamin B-12 (Cyanocobalamin) 1,000 Mcg Tab 1,000 Mcg PO DAILY 02/27/17 Reported Vitamin D (Cholecalciferol) 1,000 Unit Tab 1,000 Units PO DAILY 02/27/17 Reported Hydrochlorothiazide 25 Mg Tab 12.5 Mg PO DAILY 02/27/17 Reported Aspirin Ec (Aspirin) 81 Mg Tab 81 Mg PO DAILY 02/27/17 Reported Review of Systems See HPI , otherwise 10 ROS negative Physical Exam Date Time Temp Pulse Resp B/P (MAP) Pulse Ox O2 Delivery O2 Flow Rate FiO2 05/14/17 15:09 36.6 77 18 94/36 (55) 98 Room Air 05/14/17 13:31 Room Air 05/14/17 11:12 85 98 05/14/17 08:15 36.6 80 18 124/60 (81) 98 Room Air 05/14/17 00:14 Room Air 05/14/17 00:07 36.6 87 18 104/64 (77) 98 Room Air 05/13/17 20:43 89 123/63 (83) 05/13/17 20:00 Room Air General Appearance: WD/WN, no apparent distress Eyes: PERRL ENT: hearing grossly normal, pharynx normal Neck: supple, trachea midline Respiratory/Chest: lungs clear, no respiratory distress Cardiovascular: regular rate, rhythm, no edema Abdomen: normal bowel sounds, non tender, soft, no organomegaly Extremities: normal range of motion, normal inspection Neurologic/Psych: ripsawyer II-XII nml as tested, normal mood/affect, oriented x 3 Skin: normal color Laboratory Results Last 24 Hours Test 05/13/17 16:26 05/13/17 18:53 05/13/17 20:13 05/14/17 07:49 Bedside Glucose 133 mg/dl 171 mg/dl 164 mg/dl Sodium Level 138 mmol/L Potassium Level 4.3 mmol/L Chloride Level 107 mmol/L Carbon Dioxide Level 24 mmol/L Anion Gap 7.0 mmol/L Blood Urea Nitrogen 59 mg/dl Creatinine 4.01 mg/dl Est Creatinine Clear Calc Drug Dose 15.7 ml/min Estimated GFR () 16.5 Estimated GFR (Non- 14.3 BUN/Creatinine Ratio 14.7 Random Glucose 161 mg/dl Calcium Level 7.7 mg/dl Test 05/14/17 09:03 05/14/17 11:12 White Blood Count 7.96 K/uL Red Blood Count 3.58 M/uL Hemoglobin 10.3 g/dL Hematocrit 32.0 % Mean Corpuscular Volume 89.4 fL Mean Corpuscular Hemoglobin 28.8 pg Mean Corpuscular Hemoglobin Concent 32.2 g/dl RDW Standard Deviation 54.3 fL RDW Coefficient of Variation 16.5 % Platelet Count 307 K/uL Mean Platelet Volume 10.1 fL Sodium Level 138 mmol/L Potassium Level 4.2 mmol/L Chloride Level 108 mmol/L Carbon Dioxide Level 21 mmol/L Anion Gap 9.0 mmol/L Blood Urea Nitrogen 59 mg/dl Creatinine 3.73 mg/dl Est Creatinine Clear Calc Drug Dose 15.5 ml/min Estimated GFR () 18.0 Estimated GFR (Non- 15.6 BUN/Creatinine Ratio 15.9 Random Glucose 206 mg/dl Calcium Level 7.8 mg/dl Magnesium Level 1.5 mg/dl Bedside Glucose 248 mg/dl Impression Colon thickening on CT scan--doubt colitis in absence of ongoing diarrhea anemia---check Fe sat, ferritin, B12, folate, stool hemoccult wt loss--GI malignancy in the differential but infection and prolonged hospitalization also could be cause Discussed with patient regarding worst case scenario of GI malignancy causing above. Offered EGD and colonscopy at some point to do workup. Pt not sure if he wants them at all. Cites discussion with his sister regarding getting second opinion on overall care from tertiary center [facility] or [place]. Will see patient tomorrow and discuss further. Offered to include his sister in discussion if he desires.
[2017-05-14] MEDS: DAPTOmycin IV 375 MG in SYRINGE 0 ML IV SCH (16:40)
--- NOTE | 2017-05-14 17:50 | Infectious Disease Progress Nt ---
Progress Note Date of Service May 14, 2017. Subjective Pt evaluation today including: conversation w/ patient, physical exam, chart review, lab review, review of studies, conversation w/ recruitment consultant, review of inpatient medication list patient had CT of the abdomen and pelvis, read by me, which revealed the presence of a presacral collection as well as probable osteomyelitis of the coccyx. Has now undergone surgical debridement, cultures and Gram stain are pending from operative specimen. Patient currently afebrile and hemodynamically stable. All Other Systems: Reviewed and Negative Medications Current Inpatient Medications Medications (Trade) Dose Ordered Sig/Inlda Route Start Time Stop Time Status Last Admin Dose Admin Acetaminophen (Tylenol Tab) 650 mg Q4H PRN PO 05/11/17 21:00 06/10/17 20:59 05/14/17 14:30 650 MG Polyethylene (Miralax Powder Packet) 17 gm DAILY PRN PO 05/11/17 21:00 06/10/17 20:59 Ondansetron HCl (Zofran Inj) 4 mg Q6H PRN IV 05/11/17 21:00 06/10/17 20:59 Heparin Sodium (Porcine) (Heparin Sq 5000 Unit/0.5ml) 5,000 unit Q12H SQ 05/12/17 06:00 06/11/17 05:59 05/14/17 17:29 5,000 UNIT Atorvastatin Calcium (Lipitor Tab) 40 mg QAM PO 05/12/17 09:00 06/11/17 08:59 05/14/17 09:51 40 MG Cyanocobalamin (Vitamin B-12 Tab) 1,000 mcg DAILY PO 05/12/17 09:00 06/11/17 08:59 05/14/17 09:51 1,000 MCG Folic Acid (Folvite Tab) 1 mg QAM PO 05/12/17 09:00 06/11/17 08:59 05/14/17 09:51 1 MG Metoprolol Tartrate (Lopressor Tab) 25 mg BID PO 05/12/17 09:00 06/11/17 08:59 05/14/17 09:52 25 MG Pantoprazole Sodium (Protonix Tab) 40 mg QAM PO 05/12/17 09:00 06/11/17 08:59 05/14/17 09:52 40 MG Tamsulosin HCl (Flomax Cap) 0.4 mg DAILY PO 05/12/17 09:00 06/11/17 08:59 05/14/17 09:52 0.4 MG Insulin Aspart (novoLOG ASPART) SLIDING SCALE G... ACHS SC 05/12/17 07:00 06/11/17 06:59 05/14/17 17:26 3 UNITS Glucose (Glucose 40% Gel) 15-30 GRAMS 15 GRAMS... UD PRN PO 05/11/17 23:15 06/10/17 23:14 Glucose (Glucose Chew Tab) 4-8 Tablets 4 Tabl... UD PRN PO 05/11/17 23:15 06/10/17 23:14 Dextrose (Dextrose 50% 50ML Syringe) 25-50ML OF 50% DW IV FOR... UD PRN IV 05/11/17 23:15 06/10/17 23:14 Glucagon (Glucagon Inj) 1 mg UD PRN SQ 05/11/17 23:15 06/10/17 23:14 Aspirin (Ecotrin Tab) 81 mg DAILY PO 05/13/17 09:00 06/12/17 08:59 05/14/17 09:50 81 MG Clopidogrel Bisulfate (plAVix TAB) 75 mg QAM PO 05/13/17 09:00 06/12/17 08:59 05/14/17 09:51 75 MG Enteral Nutritional Formula (Boost Glucose Control) 1 can BIDM PO 05/12/17 17:00 06/11/17 16:59 05/14/17 17:30 1 CAN Methenamine Hippurate (Urex Tab) 1 gm DAILY PO 05/13/17 09:00 06/12/17 08:59 05/14/17 09:52 1 GM Caspofungin 50 mg/ Sodium Chloride 260 ml @ 250 mls/hr DAILY@1200 IV 05/13/17 12:00 05/23/17 11:59 05/14/17 12:40 250 MLS/HR Magnesium Oxide (Mag-Ox Tab) 400 mg BID PO 05/14/17 21:00 06/13/17 08:59 Daptomycin 375 mg/ Syringe 7.5 ml @ 3.75 mls/ min Q2D@1600 IV 05/14/17 16:00 06/25/17 15:59 05/14/17 16:40 3.75 MLS/MIN Piperacillin Sod/ Tazobactam Sod (Consult) 1 ea UD PRN N/A 05/14/17 14:45 06/13/17 14:44 Piperacillin Sod/ Tazobactam Sod 3.375 gm/Dextrose 115 ml @ 28.75 mls/ hr Q12H IV 05/14/17 22:00 06/25/17 21:59 Objective Vital Signs Date Time Temp Pulse Resp B/P (MAP) Pulse Ox O2 Delivery O2 Flow Rate FiO2 05/14/17 16:00 Room Air 05/14/17 15:09 36.6 77 18 94/36 (55) 98 Room Air 05/14/17 13:31 Room Air 05/14/17 11:12 85 98 05/14/17 08:15 36.6 80 18 124/60 (81) 98 Room Air 05/14/17 00:14 Room Air 05/14/17 00:07 36.6 87 18 104/64 (77) 98 Room Air 05/13/17 20:43 89 123/63 (83) 05/13/17 20:00 Room Air Physical Exam General Appearance: WD/WN, no apparent distress Eyes: normal inspection, sclerae normal ENT: normal ENT inspection, pharynx normal Neck: supple, no adenopathy, trachea midline Respiratory/Chest: chest non-tender, lungs clear, normal breath sounds, no respiratory distress Cardiovascular: regular rate, rhythm, no gallop, no murmur Abdomen: normal bowel sounds, non tender, soft, no organomegaly Extremities: non-tender, no calf tenderness Neurologic/Psychiatric: alert, oriented x 3 Skin: normal color, no rash, + pertinent finding ( Surgical dressing intact) Lymphatic: no adenopathy Laboratory Results Last 24 Hours Test 05/13/17 18:53 05/13/17 20:13 05/14/17 07:49 05/14/17 09:03 Sodium Level 138 mmol/L 138 mmol/L Potassium Level 4.3 mmol/L 4.2 mmol/L Chloride Level 107 mmol/L 108 mmol/L Carbon Dioxide Level 24 mmol/L 21 mmol/L Anion Gap 7.0 mmol/L 9.0 mmol/L Blood Urea Nitrogen 59 mg/dl 59 mg/dl Creatinine 4.01 mg/dl 3.73 mg/dl Est Creatinine Clear Calc Drug Dose 15.7 ml/min 15.5 ml/min Estimated GFR () 16.5 18.0 Estimated GFR (Non- 14.3 15.6 BUN/Creatinine Ratio 14.7 15.9 Random Glucose 161 mg/dl 206 mg/dl Calcium Level 7.7 mg/dl 7.8 mg/dl Bedside Glucose 171 mg/dl 164 mg/dl White Blood Count 7.96 K/uL Red Blood Count 3.58 M/uL Hemoglobin 10.3 g/dL Hematocrit 32.0 % Mean Corpuscular Volume 89.4 fL Mean Corpuscular Hemoglobin 28.8 pg Mean Corpuscular Hemoglobin Concent 32.2 g/dl RDW Standard Deviation 54.3 fL RDW Coefficient of Variation 16.5 % Platelet Count 307 K/uL Mean Platelet Volume 10.1 fL Magnesium Level 1.5 mg/dl Test 05/14/17 11:12 05/14/17 16:08 Bedside Glucose 248 mg/dl 252 mg/dl Assessment and Plan 67-year-old male with recent admission for urosepsis with MSSA, now presents with recurrence sepsis with urinalysis showing budding yeast and ultrasound raising possibility of fungal infection involving kidneys. Began on caspofungin for potential resistant yeast infection. CT scan now shows evidence of sacral osteomyelitis and abscess collection, and patient now status post drainage of abscess. Await operative cultures, patient to continue on daptomycin and Zosyn as well as caspofungin pending operative culture results. Will follow.
[2017-05-14] MEDS ORDERED: PIPERACILL/TAZOBAC IV 3.375 GM in DEXTROSE 5% 100ML 100 ML IV SCH (18:00)
--- NOTE | 2017-05-14 18:47 | Psychiatric Consultation ---
Consultation Date of Consultation May 14, 2017. Identifying Data 67 y/o M Hx DM, CHF, CAD, protein malnutrition and chronic LE ulcers, anemia, BPH with obstructive uropathy and an indwelling Miller. Recent complex history as follows - admitted with DKA and UTI 12/20 - had degree of obstructive uropathy and required Miller placement - returned to hospital 02/19 with weakness and diagnosed with urosepsis - evolved into septic shock leading to a NSTEMI and diagnosis of CHF within the context of sepsis. Pt was evaluated by a visiting nurse on the day of admission and was noted to be exceptionally weak although he did not necessarily agree with the assessment. Initial labs were obtained in the ER revealing ARF in addition to leukocytosis. The pt continues to require a Miller and states that he has been making urine and emptying his Miller bag regularly. He has a borderline low BP which may be chronic, and is afebrile, although it is noted that he did not sport a fever during the previous admission for urosepsis. He is being evaluated for failure to thrive. The patient's sister reports that she feels that her brother is depressed and has obsessive-compulsive disorder. Chief Complaint "I've lost a lot of weight without losing my appetite. I've been eating pretty well". History of Present Illness The patient is a 67-year-old man who was admitted to medicine after visiting nurse determined that he appeared exceptionally weak. He reportedly has lost up to 30 pounds over the course of several weeks. He has chronic normocytic anemia, and myeloproliferative illness is being ruled out. Psychiatry has been consulted because the patient's failure to thrive, and reports by his sister that he is depressed and several sure obsessive-compulsive disorder. The patient, himself, acknowledges that he tends to have "a lot of collections" in his home, a common assertion among individuals who tend to be quarters. He mentions that one of the things he collects is guns, and he says that he is over 200 firearms in his home. (He denies any suicidal or homicidal ideation and tells me that he has always enjoyed collecting guns.) Of note is the fact that the patient has type 1 diabetes area D he indicates that his diabetes has been poorly controlled with metformin, and he began insulin treatment around the same time that he began to lose weight and feel more weak. He denies feeling depressed. He reports some hypersomnia, but says that his appetite is been good. He continues to work out of his home, and says that he remains active and enjoys his various collections and hobbies. The patient acknowledges that he is somewhat socially isolated, although he has a few friends in the area and maintains cordial relationships with his neighbors. The patient lives in [employer] and a 3 bedroom condominium. He is single and has never . He reports no previous history of contact with the psychiatric community, apart from a visit yesterday from a psychiatric nurse. He reports that he has no history of intentional self-injurious behaviors, and is future oriented. He also reports that he has no history of violence directed towards the person or property of others, and harbors no homicidal thoughts. The patient does tell me that he thinks that it is possible that he may be "a little depressed" about his declining health, but says that he is more concerned than depressed. Of note is the fact that the patient's sister reports that the patient, who is been in out of the hospital multiple times in the past year, indicates that he is afraid of eating because he may develop diarrhea. While the patient tells me that he has been eating "well," I noticed that his dinner was still sitting on its tray, and although he had rearranged his food several times, it did not appear that he had consumed a significant amount of it. Past Psychiatric History Current OP Treatment: no current treatment Prior OP Treatment: no prior treatment Prior Psych Hospitalizations: none Access to a Gun: Yes Suicide Attempts: No Past Medical/Surgical History History of Concussion/Seizure: No Allergies Allergies: Coded Allergies: No Known Allergies (Unverified , 02/27/17) Home Medications Scheduled Aspirin (Aspirin Ec), 81 MG PO DAILY Atorvastatin (Atorvastatin Calcium), 40 MG PO QAM Cholecalciferol (Vitamin D), 1,000 UNITS PO DAILY Clopidogrel Bisulfate (Clopidogrel), 75 MG PO QAM Cyanocobalamin (Vitamin B-12), 1,000 MCG PO DAILY Folic Acid (Folic Acid), 1 MG PO QAM Hydrochlorothiazide (Hydrochlorothiazide), 12.5 MG PO DAILY Insulin Glargine (Lantus Solostar), Unknown Dose SC QPM Lisinopril (Lisinopril), 2.5 MG PO QAM Metformin Hcl (Glucophage), 1,000 MG PO BID Methenamine Hippurate (Methenamine Hippurate), 1 GM PO DAILY Metoprolol Tartrate (Lopressor), 25 MG PO BID Pantoprazole (Pantoprazole Sodium), 40 MG PO QAM Tamsulosin Hcl (Flomax), 0.4 MG PO DAILY Tocopheryl Acet,Dl-Alpha (Vitamin E), 100 UNITS PO DAILY Family History No pertinent family history History of Suicide: No History of Substance Abuse: No Psychiatric History: No Alcohol Use Alcohol Use In Past 12 Months: No Smoking Use Smoking Status: Former Smoker Personal History Lives in: [place], [place] Childhood: The patient was born and raised in [place], [place]. 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 He says that he enjoys his job, and is uncertain about actually retiring. Relationship History: never Children: 0 Legal History: none Psychological Trauma History: Denies Hx Traumatic Event Review of Systems Cardiovascular: reports: other (the patient has a history of congestive heart failure, within the context of urosepsis that was successfully treated in February 2017) Respiratory: denies: no symptoms reported, see HPI, cough, orthopnea, short of breath, stridor, wheezing, sputum production, cyanosis, BETTS, PND, other Gastrointestinal: other (the record indicates that the patient has frequent diarrhea, circumstance which his sister feels may contribute to her inadequate nutritional intake.) Genitourinary - Male: reports: other (the patient has a history of benign prostatic hypertrophy) Musculoskeletal: other (the patient acknowledges general weakness within the context of weight loss) Integumentary: other (patient has several skin ulcers on his lower extremities , and an abscess on his elbow.) Endocrine: other (the patient has a known history of diabetes mellitus, currently insulin-dependent.) Hematologic / Lymphatic: other (the patient has a history of urosepsis in February 2017. He also has chronic normocytic anemia.) Examination Physical Examination The patient's physical examination report was reviewed by the undersigned Vital Signs Vital Signs Past 12 Hours Date Time Temp Pulse Resp B/P (MAP) Pulse Ox O2 Delivery O2 Flow Rate FiO2 05/14/17 16:00 Room Air 05/14/17 15:09 36.6 77 18 94/36 (55) 98 Room Air 05/14/17 13:31 Room Air 05/14/17 11:12 85 98 05/14/17 08:15 36.6 80 18 124/60 (81) 98 Room Air Laboratory Results Last 24 Hours Test 05/13/17 18:53 05/13/17 20:13 05/14/17 07:49 05/14/17 09:03 Sodium Level 138 mmol/L 138 mmol/L Potassium Level 4.3 mmol/L 4.2 mmol/L Chloride Level 107 mmol/L 108 mmol/L Carbon Dioxide Level 24 mmol/L 21 mmol/L Anion Gap 7.0 mmol/L 9.0 mmol/L Blood Urea Nitrogen 59 mg/dl 59 mg/dl Creatinine 4.01 mg/dl 3.73 mg/dl Est Creatinine Clear Calc Drug Dose 15.7 ml/min 15.5 ml/min Estimated GFR () 16.5 18.0 Estimated GFR (Non- 14.3 15.6 BUN/Creatinine Ratio 14.7 15.9 Random Glucose 161 mg/dl 206 mg/dl Calcium Level 7.7 mg/dl 7.8 mg/dl Bedside Glucose 171 mg/dl 164 mg/dl White Blood Count 7.96 K/uL Red Blood Count 3.58 M/uL Hemoglobin 10.3 g/dL Hematocrit 32.0 % Mean Corpuscular Volume 89.4 fL Mean Corpuscular Hemoglobin 28.8 pg Mean Corpuscular Hemoglobin Concent 32.2 g/dl RDW Standard Deviation 54.3 fL RDW Coefficient of Variation 16.5 % Platelet Count 307 K/uL Mean Platelet Volume 10.1 fL Magnesium Level 1.5 mg/dl Test 05/14/17 11:12 05/14/17 16:08 Bedside Glucose 248 mg/dl 252 mg/dl Mental Examination During interview pt is: alert and oriented, cooperative Appearance: appropriately dressed Eye contact is: fair Motor behavior is: other (the patient was found lying in bed. He did not arise or set up. He appears somewhat frail.) Speech: normal in rate, rhythm & volume Affect: euthymic Mood is: other ("Okay. I don't think I'm depressed.") Thought process: goal directed (although the patient tends to be over inclusive and makes his points several times.) Thought content: reality based without delusions, other (patient strikes me as possibly somewhat lonely. He seems very eager to talk, and engages in stories about his career and his) Suicidal thought are: denied ( various interests.) Homicidal thoughts are: denied Hallucinations: denies auditory, denies visual Cognition: memory grossly intact Intelligence estimated to be: above average Insight: fair Judgement: good Impression / Recommendations Impression This 67-year-old man is been admitted because of weakness, combined with unexplained weight loss. Although the patient's sister reports that she feels that the patient has been depressed, the patient does not endorse a presence of vegetative signs or symptoms of depression, with the possible exception of hypersomnia, a circumstance that he attributes to his various health problems and medications. He is willing to entertain the possibility that he may have an underlying depression, but notes that he does not feel particularly sad or depressed, and explains that his emotions gravitate more towards being worried about his health. He talks happily about a number of his recent activities and pleasures, which include shopping trips and collecting areas objects. He also talks happily about his career in about his current work. It does seem that the patient may have OCD, based upon the patient's acknowledged that he has a lot of "collections," and the patient's sister's report that he hoards. 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 My impression is that the patient is not suffering from a clinical depression. It may be possible that the patient's unexplained weight loss may be attributable to the combination of poorly controlled blood glucose levels, coupled with the fairly recent addition of insulin to the patient's medication regimen -- a circumstance that the patient tells me corresponds with the onset of his weight loss. The fact the patient has over 200 guns in his home as noted, but the patient assures me that he has no history of violence, no thoughts of hurting other people, and no thoughts of suicide, and that he is always enjoyed collecting firearms. He explains, "I really enjoy going to gun shops and looking at various types of guns, and I always have." Inventory Assets Strengths: Personable. Well-educated. Continues to work. Needs: Poor physical health. Multiple somatic problems. Social isolation. Risk Factors Assessment Male: Yes : Yes /single/: Yes Higher / Fall in social status: No Access to guns: Yes Health problems: Yes Mental Health Diagnoses: No Substance use disorders: No Previous attempt: No Family history of suicide: No Previous psychiatric stay: No Hopelessness: No Smoker: No Protective Factors Assessment : No Responsible for young children: No Employed: Yes Stable relationships: Yes Supportive family: Yes Good rapport with provider: Yes Absence of risk factors above: No Recommendations (1) Generalized weakness There is some evidence the patient has not been eating as well as he claims to have been eating. For example, he tells me that he is eating all the food that is served to him even though his dinner tray is sitting at the bedside and it appears that he has not consumed any of the food. When the utility maintenance worker came into asked him if he was finished, he quickly said yes and allowed her to take the essentially uneaten tray of food away. I do not find that the patient is suffering from a clinical depression, although he does seem to be somewhat obsessive and is understandably concerned about his health. There is no evidence of any suicidal or homicidal thoughts, and although he does have some hypersomnia the context for that is the fact that he has a number of health problems and has been repeatedly hospitalized in the past year. I have no specific recommendations for treatment. I do think that it is possible that his weight loss is at least partially explained by the addition of insulin to the patient's medication regimen. The patient tells me that this weight loss began at around the same time that he started taking insulin, and prior to that his blood sugars reportedly were poorly controlled. Of course his chronic anemia, renal failure, and fluctuating blood sugar levels may also contribute.
[2017-05-14 20:00] VITALS: BP 98/55; PULSE 76
[2017-05-14 20:08] LABS: BUN/CREATININE RATIO 16.9 (10-20); CALCIUM 7.9 mg/dl (8.5-10.1); CREATININE 3.74 mg/dl (0.60-1.40); POTASSIUM 4.6 mmol/L (3.5-5.1)
[2017-05-14] MEDS: MAGNESIUM OXIDE 400 MG TAB PO SCH (20:57)
[2017-05-14] MEDS: PIPERACILL/TAZOBAC IV 3.375 GM in DEXTROSE 5% 100ML IV SCH (21:44)
[2017-05-14 23:39] VITALS: BP 107/57; PULSE 84; TEMP 36.8; O2SAT 98
[2017-05-15] MEDS: HEPARIN SOD 5000 UNIT/0.5 ML CARP SQ SCH ×2 (06:34→18:39)
[2017-05-15 07:03] LABS: BASO % 0.3 %; BASO ABS # 0.02 K/uL (0-0.2); COMPLETE YES; HEMATOCRIT 31.1 % (42-52); IG% 0.3 %; LYMPH % 12.8 %; LYMPH ABS # 0.97 K/uL (1.2-3.4); MEAN CELL VOLUME 89.6 fL (80-100); MEAN CORPUSCULAR HEMOGLOBIN 29.4 pg (25-34); MEAN CORPUSCULAR HGB CONC 32.8 g/dl (32-36); MEAN PLATELET VOLUME 9.6 fL (7.4-10.4); MONO % 7.9 %; NEUT % 73.7 %; PLATELET COUNT 316 K/uL (130-400); RED BLOOD COUNT 3.47 M/uL (4.7-6.1); WHITE BLOOD COUNT 7.59 K/uL (4.8-10.8)
[2017-05-15 07:40] LABS: BUN/CREATININE RATIO 16.7 (10-20); CALCIUM 7.9 mg/dl (8.5-10.1); CREATININE 3.44 mg/dl (0.60-1.40); MAGNESIUM 1.8 mg/dl (1.8-2.4); POTASSIUM 4.5 mmol/L (3.5-5.1)
[2017-05-15 07:43] LABS: ALB/GLOB RATIO 0.5 (0.9-2); FERRITIN 570.9 ng/ml (8.0-388.0)
[2017-05-15 08:06] VITALS: BP 126/67; PULSE 85; TEMP 36.6; O2SAT 98
--- NOTE | 2017-05-15 08:20 | Progress Note ---
Subjective Date of Service: May 15, 2017. Subjective Pt evaluation today including: conversation w/ patient, chart review, lab review Voiding: hallman catheter in place (patent, draining clear, yellow urine) 67 yo male with ARF, UTI, and osteomyelitis. Bilateral hydronephrosis improved on CT yesterday. Cr improving further this morning at 3.44 from 3.74. Urine output has increased as well. Pt denies any pain or n/v this morning. UC&S growing yeast, not donis albicans. He has been placed on IV Caspofungin by Dr. Wood. Problem List Medical Problems: (1) ARF (acute renal failure) Status: Acute (2) Dehydration Status: Acute (3) DKA (diabetic ketoacidoses) Status: Acute (4) Generalized weakness Status: Acute (5) Urinary tract infection Status: Acute Review of Systems Constitutional: No fever, No chills Respiratory: No shortness of breath Cardiac: No chest pain Abdomen: No pain, No nausea, No vomiting Male : No hematuria Heme: No abnormal bleeding/bruising Objective Vital Signs Date Time Temp Pulse Resp B/P (MAP) Pulse Ox O2 Delivery O2 Flow Rate FiO2 05/15/17 08:06 36.6 85 18 126/67 (86) 98 05/15/17 00:20 Room Air 05/14/17 23:39 36.8 84 18 107/57 (74) 98 Room Air 05/14/17 20:00 76 98/55 (69) 05/14/17 16:00 Room Air 05/14/17 15:09 36.6 77 18 94/36 (55) 98 Room Air 05/14/17 13:31 Room Air 05/14/17 11:12 85 98 Physical Exam General Appearance: no apparent distress Eyes: normal inspection ENT: hearing grossly normal Neck: no JVD Respiratory/Chest: no respiratory distress, no accessory muscle use Cardiovascular: no JVD Extremities: normal inspection Neurologic/Psychiatric: alert, normal mood/affect, oriented x 3 Skin: normal color Laboratory Results Last 24 Hours Test 05/14/17 09:03 05/14/17 11:12 05/14/17 16:08 05/14/17 19:35 White Blood Count 7.96 K/uL Red Blood Count 3.58 M/uL Hemoglobin 10.3 g/dL Hematocrit 32.0 % Mean Corpuscular Volume 89.4 fL Mean Corpuscular Hemoglobin 28.8 pg Mean Corpuscular Hemoglobin Concent 32.2 g/dl RDW Standard Deviation 54.3 fL RDW Coefficient of Variation 16.5 % Platelet Count 307 K/uL Mean Platelet Volume 10.1 fL Sodium Level 138 mmol/L 137 mmol/L Potassium Level 4.2 mmol/L 4.6 mmol/L Chloride Level 108 mmol/L 107 mmol/L Carbon Dioxide Level 21 mmol/L 24 mmol/L Anion Gap 9.0 mmol/L 6.0 mmol/L Blood Urea Nitrogen 59 mg/dl 63 mg/dl Creatinine 3.73 mg/dl 3.74 mg/dl Est Creatinine Clear Calc Drug Dose 15.5 ml/min 15.5 ml/min Estimated GFR () 18.0 18.0 Estimated GFR (Non- 15.6 15.5 BUN/Creatinine Ratio 15.9 16.9 Random Glucose 206 mg/dl 155 mg/dl Calcium Level 7.8 mg/dl 7.9 mg/dl Magnesium Level 1.5 mg/dl Bedside Glucose 248 mg/dl 252 mg/dl Test 05/14/17 20:24 05/15/17 06:48 05/15/17 06:49 05/15/17 07:28 Bedside Glucose 182 mg/dl 236 mg/dl Sodium Level 136 mmol/L Potassium Level 4.5 mmol/L Chloride Level 105 mmol/L Carbon Dioxide Level 24 mmol/L Anion Gap 7.0 mmol/L Blood Urea Nitrogen 58 mg/dl Creatinine 3.44 mg/dl Est Creatinine Clear Calc Drug Dose 16.0 ml/min Estimated GFR () 19.9 Estimated GFR (Non- 17.2 BUN/Creatinine Ratio 16.7 Random Glucose 215 mg/dl Calcium Level 7.9 mg/dl Magnesium Level 1.8 mg/dl Iron Level 39 mcg/dl Total Iron Binding Capacity 168 mcg/dl Transferrin 153 mg/dl Transferrin % Saturation 18 % Ferritin 570.9 ng/ml Total Bilirubin 0.2 mg/dl Aspartate Amino Transf (AST/SGOT) 11 U/L Alanine Aminotransferase (ALT/SGPT) 12 U/L Alkaline Phosphatase 77 U/L Total Protein 6.8 gm/dl Albumin 2.4 gm/dl Globulin 4.4 gm/dl Albumin/Globulin Ratio 0.5 White Blood Count 7.59 K/uL Red Blood Count 3.47 M/uL Hemoglobin 10.2 g/dL Hematocrit 31.1 % Mean Corpuscular Volume 89.6 fL Mean Corpuscular Hemoglobin 29.4 pg Mean Corpuscular Hemoglobin Concent 32.8 g/dl Platelet Count 316 K/uL Mean Platelet Volume 9.6 fL Neutrophils (%) (Auto) 73.7 % Lymphocytes (%) (Auto) 12.8 % Monocytes (%) (Auto) 7.9 % Eosinophils (%) (Auto) 5.0 % Basophils (%) (Auto) 0.3 % Neutrophils # (Auto) 5.60 K/uL Lymphocytes # (Auto) 0.97 K/uL Monocytes # (Auto) 0.60 K/uL Eosinophils # (Auto) 0.38 K/uL Basophils # (Auto) 0.02 K/uL RDW Standard Deviation 55.1 fL RDW Coefficient of Variation 16.7 % Immature Granulocyte % (Auto) 0.3 % Immature Granulocyte # (Auto) 0.02 K/uL Assessment and Plan A/P: UR, bilateral hydronephrosis, ARF, UTI AFVSS. Management of fungal UTI per ID. Bilateral hydro has improved on CT. Cr continues to improve. Avoid surgical intervention with stent placement at this time. Will continue hallman catheter. No further management at this time. Recall PRN issues. Will arrange for outpatient f/u with Dr. Marrero in 2 weeks.
[2017-05-15] MEDS: BOOST GLUCOSE CONTROL PO SCH ×2 (08:25→18:35)
[2017-05-15] MEDS: ASPIRIN 81 MG ECTAB PO SCH (08:27)
[2017-05-15] MEDS: CLOPIDOGREL BISULFATE 75 MG TAB PO SCH (08:27)
[2017-05-15] MEDS: PANTOprazole SOD 40 MG TAB PO SCH (08:27)
[2017-05-15] MEDS: CYANOCOBALAMIN 500 MCG TAB (VIT B-12) PO SCH (08:27)
[2017-05-15] MEDS: METHENAMINE HIPPURATE 1 GM TAB PO SCH (08:28)
[2017-05-15] MEDS: TAMSULOSIN HCL 0.4 MG CAP PO SCH (08:28)
[2017-05-15] MEDS: MAGNESIUM OXIDE 400 MG TAB PO SCH ×2 (08:28→21:40)
[2017-05-15] MEDS: METOPROLOL TARTRATE 25 MG TAB PO SCH ×2 (08:28→21:39)
[2017-05-15] MEDS: ATORVASTATIN 40 MG TAB PO SCH (08:28)
[2017-05-15] MEDS: INSULIN ASPART 100 UNITS/ML 3 ML PEN SC SCH ×4 (08:32→21:46)
[2017-05-15] MEDS: PIPERACILL/TAZOBAC IV 3.375 GM in DEXTROSE 5% 100ML IV SCH ×2 (09:30→21:41)
--- NOTE | 2017-05-15 10:50 | Nephrology Progress Note ---
Nephrology Progress Note Date of Service May 15, 2017. Chief Complaint Follow-up for acute kidney injury, bilateral hydronephrosis. Libby Larsen was seen and examined in his room this morning. Overall he is feeling well , denies any overnight events. No episode of fever, flank pain or dysuria. Creatinine slowly started to improve, 3.4 this morning, electrolyte acceptable. Blood pressure well control. Decent urine output. Review of Systems A complete review of systems was performed. Pertinent positives are noted above. All other systems are negative. Vital Signs Last 8 Hrs Date Time Temp Pulse Resp B/P (MAP) Pulse Ox O2 Delivery O2 Flow Rate FiO2 05/15/17 08:35 Room Air 05/15/17 08:06 36.6 85 18 126/67 (86) 98 Last Recorded Weight Weight (Kilograms): 55.800 Physical Exam GENERAL: middle aged male,, AAA x 3, pleasant, not in any distress. NECK: Supple, no JVD. RESPIRATORY: Normal breathing efforts,clear to auscultation bilaterally, no wheezes or rales. CARDIOVASCULAR: S1, S2 normal, rate rhythm regular. EXTREMITY: No lower extremity edema NEURO: speech fluent. 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 Past 24 Hours 05/15/17 06:49 Red Blood Count 3.47, Mean Corpuscular Volume 89.6, Mean Corpuscular Hemoglobin 29.4, Mean Corpuscular Hemoglobin Concent 32.8, Mean Platelet Volume 9.6, Neutrophils (%) (Auto) 73.7, Lymphocytes (%) (Auto) 12.8, Monocytes (%) (Auto) 7.9, Eosinophils (%) (Auto) 5.0, Basophils (%) (Auto) 0.3, Neutrophils # (Auto) 5.60, Lymphocytes # (Auto) 0.97, Monocytes # (Auto) 0.60, Eosinophils # (Auto) 0.38, Basophils # (Auto) 0.02 05/14/17 19:35 05/15/17 06:48 Test 05/14/17 11:12 05/14/17 16:08 05/14/17 19:35 05/14/17 20:24 Bedside Glucose 248 mg/dl (70-99) 252 mg/dl (70-99) 182 mg/dl (70-99) Anion Gap 6.0 mmol/L (3-11) Est Creatinine Clear Calc Drug Dose 15.5 ml/min Estimated GFR () 18.0 Estimated GFR (Non- 15.5 BUN/Creatinine Ratio 16.9 (10-20) Calcium Level 7.9 mg/dl (8.5-10.1) Test 05/15/17 06:48 05/15/17 06:49 05/15/17 07:28 Anion Gap 7.0 mmol/L (3-11) Est Creatinine Clear Calc Drug Dose 16.0 ml/min Estimated GFR () 19.9 Estimated GFR (Non- 17.2 BUN/Creatinine Ratio 16.7 (10-20) Calcium Level 7.9 mg/dl (8.5-10.1) Magnesium Level 1.8 mg/dl (1.8-2.4) Iron Level 39 mcg/dl (35-175) Total Iron Binding Capacity 168 mcg/dl (250-450) Transferrin 153 mg/dl (200-360) Transferrin % Saturation 18 % (20-50) Ferritin 570.9 ng/ml (8.0-388.0) Total Bilirubin 0.2 mg/dl (0.2-1) Aspartate Amino Transf (AST/SGOT) 11 U/L (15-37) Alanine Aminotransferase (ALT/SGPT) 12 U/L (12-78) Alkaline Phosphatase 77 U/L (45-117) Total Protein 6.8 gm/dl (6.4-8.2) Albumin 2.4 gm/dl (3.4-5.0) Globulin 4.4 gm/dl (2.5-4.0) Albumin/Globulin Ratio 0.5 (0.9-2) Vitamin B12 Level 1692 pg/mL (211-911) Folate 14.34 ng/mL (>5.38) White Blood Count 7.59 K/uL (4.8-10.8) Red Blood Count 3.47 M/uL (4.7-6.1) Hemoglobin 10.2 g/dL (14.0-18.0) Hematocrit 31.1 % (42-52) Mean Corpuscular Volume 89.6 fL (80-100) Mean Corpuscular Hemoglobin 29.4 pg (25-34) Mean Corpuscular Hemoglobin Concent 32.8 g/dl (32-36) Platelet Count 316 K/uL (130-400) Mean Platelet Volume 9.6 fL (7.4-10.4) Neutrophils (%) (Auto) 73.7 % Lymphocytes (%) (Auto) 12.8 % Monocytes (%) (Auto) 7.9 % Eosinophils (%) (Auto) 5.0 % Basophils (%) (Auto) 0.3 % Neutrophils # (Auto) 5.60 K/uL (1.4-6.5) Lymphocytes # (Auto) 0.97 K/uL (1.2-3.4) Monocytes # (Auto) 0.60 K/uL (0.11-0.59) Eosinophils # (Auto) 0.38 K/uL (0-0.5) Basophils # (Auto) 0.02 K/uL (0-0.2) RDW Standard Deviation 55.1 fL (36.4-46.3) RDW Coefficient of Variation 16.7 % (11.5-14.5) Immature Granulocyte % (Auto) 0.3 % Immature Granulocyte # (Auto) 0.02 K/uL (0.00-0.02) Bedside Glucose 236 mg/dl (70-99) Allergies Coded Allergies: No Known Allergies (Unverified , 02/27/17) Medications Current Inpatient Medications Medications (Trade) Dose Ordered Sig/Nilda Route Start Time Stop Time Status Last Admin Dose Admin Acetaminophen (Tylenol Tab) 650 mg Q4H PRN PO 05/11/17 21:00 06/10/17 20:59 05/14/17 14:30 650 MG Polyethylene (Miralax Powder Packet) 17 gm DAILY PRN PO 05/11/17 21:00 06/10/17 20:59 Ondansetron HCl (Zofran Inj) 4 mg Q6H PRN IV 05/11/17 21:00 06/10/17 20:59 Heparin Sodium (Porcine) (Heparin Sq 5000 Unit/0.5ml) 5,000 unit Q12H SQ 05/12/17 06:00 06/11/17 05:59 05/15/17 06:34 5,000 UNIT Atorvastatin Calcium (Lipitor Tab) 40 mg QAM PO 05/12/17 09:00 06/11/17 08:59 05/15/17 08:28 40 MG Cyanocobalamin (Vitamin B-12 Tab) 1,000 mcg DAILY PO 05/12/17 09:00 06/11/17 08:59 05/15/17 08:27 1,000 MCG Folic Acid (Folvite Tab) 1 mg QAM PO 05/12/17 09:00 06/11/17 08:59 05/15/17 08:28 1 MG Metoprolol Tartrate (Lopressor Tab) 25 mg BID PO 05/12/17 09:00 06/11/17 08:59 05/15/17 08:28 25 MG Pantoprazole Sodium (Protonix Tab) 40 mg QAM PO 05/12/17 09:00 06/11/17 08:59 05/15/17 08:27 40 MG Tamsulosin HCl (Flomax Cap) 0.4 mg DAILY PO 05/12/17 09:00 06/11/17 08:59 05/15/17 08:28 0.4 MG Insulin Aspart (novoLOG ASPART) SLIDING SCALE G... ACHS SC 05/12/17 07:00 06/11/17 06:59 05/15/17 08:32 2 UNITS Glucose (Glucose 40% Gel) 15-30 GRAMS 15 GRAMS... UD PRN PO 05/11/17 23:15 06/10/17 23:14 Glucose (Glucose Chew Tab) 4-8 Tablets 4 Tabl... UD PRN PO 05/11/17 23:15 06/10/17 23:14 Dextrose (Dextrose 50% 50ML Syringe) 25-50ML OF 50% DW IV FOR... UD PRN IV 05/11/17 23:15 06/10/17 23:14 Glucagon (Glucagon Inj) 1 mg UD PRN SQ 05/11/17 23:15 06/10/17 23:14 Aspirin (Ecotrin Tab) 81 mg DAILY PO 05/13/17 09:00 06/12/17 08:59 05/15/17 08:27 81 MG Clopidogrel Bisulfate (plAVix TAB) 75 mg QAM PO 05/13/17 09:00 06/12/17 08:59 05/15/17 08:27 75 MG Enteral Nutritional Formula (Boost Glucose Control) 1 can BIDM PO 05/12/17 17:00 06/11/17 16:59 05/15/17 08:25 1 CAN Methenamine Hippurate (Urex Tab) 1 gm DAILY PO 05/13/17 09:00 06/12/17 08:59 05/15/17 08:28 1 GM Caspofungin 50 mg/ Sodium Chloride 260 ml @ 250 mls/hr DAILY@1200 IV 05/13/17 12:00 05/23/17 11:59 05/14/17 12:40 250 MLS/HR Magnesium Oxide (Mag-Ox Tab) 400 mg BID PO 05/14/17 21:00 06/13/17 08:59 05/15/17 08:28 400 MG Daptomycin 375 mg/ Syringe 7.5 ml @ 3.75 mls/ min Q2D@1600 IV 05/14/17 16:00 06/25/17 15:59 05/14/17 16:40 3.75 MLS/MIN Piperacillin Sod/ Tazobactam Sod (Consult) 1 ea UD PRN N/A 05/14/17 14:45 06/13/17 14:44 Piperacillin Sod/ Tazobactam Sod 3.375 gm/Dextrose 115 ml @ 28.75 mls/ hr Q12H IV 05/14/17 22:00 06/25/17 21:59 05/15/17 09:30 28.75 MLS/HR Impression (1) ATN (acute tubular necrosis) (2) Acute renal insufficiency (3) Hydronephrosis (4) Recurrent UTI (5) Hypertension (6) Urinary tract infection Chava Patel is a frail 67-year-old male with DM II, hypertension, CAD, chronic systolic CHF, neurogenic bladder, and multiple recent hospital admissions. This includes recent treatment for septic shock due to MSSA. Chava has acute renal failure consistent with ATN. Granular cast noted on urine microscopy. I cannot exclude a post renal obstructive component to renal dysfunction given persistent bilateral hydronephrosis. He has had recurrent UTI and may require additional intervention for decompression of the urinary system. At this time, he does not has systemic signs or symptoms of infection. Urine cultures pending. Urology following. Repeat CT scan pending. Volume status appropriate. TTE notable for reduced LV systolic function (35-40% ) with global and severe inferior wall hypokinesis, grade 1 diastolic dysfunction with mild dilation of the LV. Moderate MR noted. Baseline creatinine normal at 0.8 mg/dL. UA shows orange urine with +3 protein. Microscopic evaluation notable for >30 WBC, 10-30 RBC, granular cast. Renal US reviewed noting BL hydronephrosis. Lisinopril, HCTZ and metformin have been held. Recommendations --continue to monitor renal function with daily renal panel, expect renal function to continue to improve, CT showing improvement in hydro overall clinically stable. -- Maintain even fluid balance -- Document I/O's -- Hold lisinopril, HCTZ and metformin -- Encourage nutrition
[2017-05-15] MEDS: CASPOFUNGIN INJ 50 MG in SODIUM CHLORIDE 0.9% 250ML 250 ML IV SCH (13:46)
--- NOTE | 2017-05-15 13:56 | Wound Progress Note: Inpatient ---
Wound Progress Note Date of Service May 15, 2017. Subjective Pt evaluation today including: conversation w/ patient, physical exam, chart review Patient seen today for follow-up evaluation of a postoperative sacral wound following abscess drainage. Patient is well-known to the [facility] wound clinic last being seen 3 weeks ago for a similar problem. Patient denies any increased pain. Patient denies any fever chills or night sweats. Patient denies any other additional systemic complaints at this time. Objective Vital Signs Date Time Temp Pulse Resp B/P (MAP) Pulse Ox O2 Delivery O2 Flow Rate FiO2 05/15/17 08:35 Room Air 05/15/17 08:06 36.6 85 18 126/67 (86) 98 05/15/17 00:20 Room Air 05/14/17 23:39 36.8 84 18 107/57 (74) 98 Room Air 05/14/17 20:00 76 98/55 (69) 05/14/17 16:00 Room Air 05/14/17 15:09 36.6 77 18 94/36 (55) 98 Room Air Physical Exam Notes: The sacral region today shows an postoperative wound measuring 1.5 x 1.5 x 1.5 cm. There is no active drainage. There is no [place] periwound erythema or odor noted. Laboratory Results Last 24 Hours Test 05/14/17 16:08 05/14/17 19:35 05/14/17 20:24 05/15/17 06:48 Bedside Glucose 252 mg/dl 182 mg/dl Sodium Level 137 mmol/L 136 mmol/L Potassium Level 4.6 mmol/L 4.5 mmol/L Chloride Level 107 mmol/L 105 mmol/L Carbon Dioxide Level 24 mmol/L 24 mmol/L Anion Gap 6.0 mmol/L 7.0 mmol/L Blood Urea Nitrogen 63 mg/dl 58 mg/dl Creatinine 3.74 mg/dl 3.44 mg/dl Est Creatinine Clear Calc Drug Dose 15.5 ml/min 16.0 ml/min Estimated GFR () 18.0 19.9 Estimated GFR (Non- 15.5 17.2 BUN/Creatinine Ratio 16.9 16.7 Random Glucose 155 mg/dl 215 mg/dl Calcium Level 7.9 mg/dl 7.9 mg/dl Magnesium Level 1.8 mg/dl Iron Level 39 mcg/dl Total Iron Binding Capacity 168 mcg/dl Transferrin 153 mg/dl Transferrin % Saturation 18 % Ferritin 570.9 ng/ml Total Bilirubin 0.2 mg/dl Aspartate Amino Transf (AST/SGOT) 11 U/L Alanine Aminotransferase (ALT/SGPT) 12 U/L Alkaline Phosphatase 77 U/L Total Protein 6.8 gm/dl Albumin 2.4 gm/dl Globulin 4.4 gm/dl Albumin/Globulin Ratio 0.5 Vitamin B12 Level 1692 pg/mL Folate 14.34 ng/mL Test 05/15/17 06:49 05/15/17 07:28 05/15/17 11:10 White Blood Count 7.59 K/uL Red Blood Count 3.47 M/uL Hemoglobin 10.2 g/dL Hematocrit 31.1 % Mean Corpuscular Volume 89.6 fL Mean Corpuscular Hemoglobin 29.4 pg Mean Corpuscular Hemoglobin Concent 32.8 g/dl Platelet Count 316 K/uL Mean Platelet Volume 9.6 fL Neutrophils (%) (Auto) 73.7 % Lymphocytes (%) (Auto) 12.8 % Monocytes (%) (Auto) 7.9 % Eosinophils (%) (Auto) 5.0 % Basophils (%) (Auto) 0.3 % Neutrophils # (Auto) 5.60 K/uL Lymphocytes # (Auto) 0.97 K/uL Monocytes # (Auto) 0.60 K/uL Eosinophils # (Auto) 0.38 K/uL Basophils # (Auto) 0.02 K/uL RDW Standard Deviation 55.1 fL RDW Coefficient of Variation 16.7 % Immature Granulocyte % (Auto) 0.3 % Immature Granulocyte # (Auto) 0.02 K/uL Bedside Glucose 236 mg/dl 346 mg/dl Assessment and Plan Assessment: Postoperative sacral wound Plan: No debridement is indicated today. The site will continue be dressed with Aquacel Ag and gauze changed on a daily basis patient will be reevaluated as needed rehospitalization followed up in the outpatient clinic.
--- NOTE | 2017-05-15 14:17 | Surgery Progress Note ---
Surgery Progress Note Date of Service May 15, 2017. Subjective Post OP Day: 1 (I&D of sacral abscess) + feeling well Pain when laying flat on back no fevers, chills, or sweats eating without nausea or vomiting Objective Vital Signs: Date Time Temp Pulse Resp B/P (MAP) Pulse Ox O2 Delivery O2 Flow Rate FiO2 05/15/17 08:35 Room Air 05/15/17 08:06 36.6 85 18 126/67 (86) 98 05/15/17 00:20 Room Air 05/14/17 23:39 36.8 84 18 107/57 (74) 98 Room Air 05/14/17 20:00 76 98/55 (69) 05/14/17 16:00 Room Air 05/14/17 15:09 36.6 77 18 94/36 (55) 98 Room Air General Appearance: WD/WN, no apparent distress Head: normocephalic, atraumatic Neck: trachea midline Respiratory/Chest: no respiratory distress, no accessory muscle use Incision(s): findings (Sacral wound dressed and wound just changed by wound care team, not inspected, no surrounding erythema or induration or flucutance) Laboratory Results: Results Past 24 Hours Test 05/14/17 16:08 05/14/17 19:35 05/14/17 20:24 05/15/17 06:48 Range/Units Bedside Glucose 252 182 70-99 mg/dl Sodium Level 137 136 136-145 mmol/L Potassium Level 4.6 4.5 3.5-5.1 mmol/L Chloride Level 107 105 98-107 mmol/L Carbon Dioxide Level 24 24 21-32 mmol/L Anion Gap 6.0 7.0 3-11 mmol/L Blood Urea Nitrogen 63 58 7-18 mg/dl Creatinine 3.74 3.44 0.60-1.40 mg/dl Est Creatinine Clear Calc Drug Dose 15.5 16.0 ml/min Estimated GFR () 18.0 19.9 Estimated GFR (Non- 15.5 17.2 BUN/Creatinine Ratio 16.9 16.7 10-20 Random Glucose 155 215 70-99 mg/dl Calcium Level 7.9 7.9 8.5-10.1 mg/dl Magnesium Level 1.8 1.8-2.4 mg/dl Iron Level 39 35-175 mcg/dl Total Iron Binding Capacity 168 250-450 mcg/dl Transferrin 153 200-360 mg/dl Transferrin % Saturation 18 20-50 % Ferritin 570.9 8.0-388.0 ng/ml Total Bilirubin 0.2 0.2-1 mg/dl Aspartate Amino Transf (AST/SGOT) 11 15-37 U/L Alanine Aminotransferase (ALT/SGPT) 12 12-78 U/L Alkaline Phosphatase 77 45-117 U/L Total Protein 6.8 6.4-8.2 gm/dl Albumin 2.4 3.4-5.0 gm/dl Globulin 4.4 2.5-4.0 gm/dl Albumin/Globulin Ratio 0.5 0.9-2 Vitamin B12 Level 1692 211-911 pg/mL Folate 14.34 >5.38 ng/mL Test 05/15/17 06:49 05/15/17 07:28 05/15/17 11:10 Range/Units White Blood Count 7.59 4.8-10.8 K/uL Red Blood Count 3.47 4.7-6.1 M/uL Hemoglobin 10.2 14.0-18.0 g/dL Hematocrit 31.1 42-52 % Mean Corpuscular Volume 89.6 80-100 fL Mean Corpuscular Hemoglobin 29.4 25-34 pg Mean Corpuscular Hemoglobin Concent 32.8 32-36 g/dl Platelet Count 316 130-400 K/uL Mean Platelet Volume 9.6 7.4-10.4 fL Neutrophils (%) (Auto) 73.7 % Lymphocytes (%) (Auto) 12.8 % Monocytes (%) (Auto) 7.9 % Eosinophils (%) (Auto) 5.0 % Basophils (%) (Auto) 0.3 % Neutrophils # (Auto) 5.60 1.4-6.5 K/uL Lymphocytes # (Auto) 0.97 1.2-3.4 K/uL Monocytes # (Auto) 0.60 0.11-0.59 K/uL Eosinophils # (Auto) 0.38 0-0.5 K/uL Basophils # (Auto) 0.02 0-0.2 K/uL RDW Standard Deviation 55.1 36.4-46.3 fL RDW Coefficient of Variation 16.7 11.5-14.5 % Immature Granulocyte % (Auto) 0.3 % Immature Granulocyte # (Auto) 0.02 0.00-0.02 K/uL Bedside Glucose 236 346 70-99 mg/dl Microbiology Results 05/14/17 Gram Stain - Final, Resulted 05/14/17 Wound Culture, Resulted Pending Assessment & Plan POD # 1 s/p I&D of sacral abscess -vitals stable and afebrile - tolerating diet without nausea or vomiting Plan: Daily packing changes and wound care per wound care team Our services signing off, thank you for consultation Continue current medical management Dr. Camacho has seen patient, agrees with above
[2017-05-15 15:07] VITALS: BP 108/63; PULSE 73; TEMP 36.7; O2SAT 98
[2017-05-15 15:30] VITALS: O2SAT 98
--- NOTE | 2017-05-15 17:36 | Gastroenterology Progress Note ---
Progress Note Date of Service: May 15, 2017 Subjective Pt evaluation today including: conversation w/ patient, physical exam, chart review, lab review, review of studies, review of inpatient medication list CC f/u anemia, wt loss HPI Pt denies abd pain. He is tolerating diet. He states he is agreeble to EGD/ colonoscopy with with his coccyx excision he feels that trying to do scopes next week particularly colonoscopy would be painful. Review of Systems Respiratory: No shortness of breath Cardiac: No chest pain Medications Current Inpatient Medications Medications (Trade) Dose Ordered Sig/Nilda Route Start Time Stop Time Status Last Admin Dose Admin Acetaminophen (Tylenol Tab) 650 mg Q4H PRN PO 05/11/17 21:00 06/10/17 20:59 05/14/17 14:30 650 MG Polyethylene (Miralax Powder Packet) 17 gm DAILY PRN PO 05/11/17 21:00 06/10/17 20:59 Ondansetron HCl (Zofran Inj) 4 mg Q6H PRN IV 05/11/17 21:00 06/10/17 20:59 Heparin Sodium (Porcine) (Heparin Sq 5000 Unit/0.5ml) 5,000 unit Q12H SQ 05/12/17 06:00 06/11/17 05:59 05/15/17 06:34 5,000 UNIT Atorvastatin Calcium (Lipitor Tab) 40 mg QAM PO 05/12/17 09:00 06/11/17 08:59 05/15/17 08:28 40 MG Cyanocobalamin (Vitamin B-12 Tab) 1,000 mcg DAILY PO 05/12/17 09:00 06/11/17 08:59 05/15/17 08:27 1,000 MCG Folic Acid (Folvite Tab) 1 mg QAM PO 05/12/17 09:00 06/11/17 08:59 05/15/17 08:28 1 MG Metoprolol Tartrate (Lopressor Tab) 25 mg BID PO 05/12/17 09:00 06/11/17 08:59 05/15/17 08:28 25 MG Pantoprazole Sodium (Protonix Tab) 40 mg QAM PO 05/12/17 09:00 06/11/17 08:59 05/15/17 08:27 40 MG Tamsulosin HCl (Flomax Cap) 0.4 mg DAILY PO 05/12/17 09:00 06/11/17 08:59 05/15/17 08:28 0.4 MG Insulin Aspart (novoLOG ASPART) SLIDING SCALE G... ACHS SC 05/12/17 07:00 06/11/17 06:59 05/15/17 12:13 5 UNITS Glucose (Glucose 40% Gel) 15-30 GRAMS 15 GRAMS... UD PRN PO 05/11/17 23:15 06/10/17 23:14 Glucose (Glucose Chew Tab) 4-8 Tablets 4 Tabl... UD PRN PO 05/11/17 23:15 06/10/17 23:14 Dextrose (Dextrose 50% 50ML Syringe) 25-50ML OF 50% DW IV FOR... UD PRN IV 05/11/17 23:15 06/10/17 23:14 Glucagon (Glucagon Inj) 1 mg UD PRN SQ 05/11/17 23:15 06/10/17 23:14 Aspirin (Ecotrin Tab) 81 mg DAILY PO 05/13/17 09:00 06/12/17 08:59 05/15/17 08:27 81 MG Clopidogrel Bisulfate (plAVix TAB) 75 mg QAM PO 05/13/17 09:00 06/12/17 08:59 05/15/17 08:27 75 MG Enteral Nutritional Formula (Boost Glucose Control) 1 can BIDM PO 05/12/17 17:00 06/11/17 16:59 05/15/17 08:25 1 CAN Methenamine Hippurate (Urex Tab) 1 gm DAILY PO 05/13/17 09:00 06/12/17 08:59 05/15/17 08:28 1 GM Caspofungin 50 mg/ Sodium Chloride 260 ml @ 250 mls/hr DAILY@1200 IV 05/13/17 12:00 05/23/17 11:59 05/15/17 13:46 250 MLS/HR Magnesium Oxide (Mag-Ox Tab) 400 mg BID PO 05/14/17 21:00 06/13/17 08:59 05/15/17 08:28 400 MG Daptomycin 375 mg/ Syringe 7.5 ml @ 3.75 mls/ min Q2D@1600 IV 05/14/17 16:00 06/25/17 15:59 05/14/17 16:40 3.75 MLS/MIN Piperacillin Sod/ Tazobactam Sod (Consult) 1 ea UD PRN N/A 05/14/17 14:45 06/13/17 14:44 Piperacillin Sod/ Tazobactam Sod 3.375 gm/Dextrose 115 ml @ 28.75 mls/ hr Q12H IV 05/14/17 22:00 06/25/17 21:59 05/15/17 09:30 28.75 MLS/HR Objective Vital Signs Date Time Temp Pulse Resp B/P (MAP) Pulse Ox O2 Delivery O2 Flow Rate FiO2 05/15/17 15:07 36.7 73 20 108/63 (78) 98 05/15/17 08:35 Room Air 05/15/17 08:06 36.6 85 18 126/67 (86) 98 05/15/17 00:20 Room Air 05/14/17 23:39 36.8 84 18 107/57 (74) 98 Room Air 05/14/17 20:00 76 98/55 (69) Physical Exam General Appearance: WD/WN, no apparent distress Respiratory/Chest: lungs clear, no respiratory distress Abdomen: normal bowel sounds, non tender, soft, no organomegaly Neurologic/Psych: normal mood/affect, oriented x 3 Laboratory Results Last 24 Hours Test 05/14/17 19:35 05/14/17 20:24 05/15/17 06:48 05/15/17 06:49 Sodium Level 137 mmol/L 136 mmol/L Potassium Level 4.6 mmol/L 4.5 mmol/L Chloride Level 107 mmol/L 105 mmol/L Carbon Dioxide Level 24 mmol/L 24 mmol/L Anion Gap 6.0 mmol/L 7.0 mmol/L Blood Urea Nitrogen 63 mg/dl 58 mg/dl Creatinine 3.74 mg/dl 3.44 mg/dl Est Creatinine Clear Calc Drug Dose 15.5 ml/min 16.0 ml/min Estimated GFR () 18.0 19.9 Estimated GFR (Non- 15.5 17.2 BUN/Creatinine Ratio 16.9 16.7 Random Glucose 155 mg/dl 215 mg/dl Calcium Level 7.9 mg/dl 7.9 mg/dl Bedside Glucose 182 mg/dl Magnesium Level 1.8 mg/dl Iron Level 39 mcg/dl Total Iron Binding Capacity 168 mcg/dl Transferrin 153 mg/dl Transferrin % Saturation 18 % Ferritin 570.9 ng/ml Total Bilirubin 0.2 mg/dl Aspartate Amino Transf (AST/SGOT) 11 U/L Alanine Aminotransferase (ALT/SGPT) 12 U/L Alkaline Phosphatase 77 U/L Total Protein 6.8 gm/dl Albumin 2.4 gm/dl Globulin 4.4 gm/dl Albumin/Globulin Ratio 0.5 Vitamin B12 Level 1692 pg/mL Folate 14.34 ng/mL White Blood Count 7.59 K/uL Red Blood Count 3.47 M/uL Hemoglobin 10.2 g/dL Hematocrit 31.1 % Mean Corpuscular Volume 89.6 fL Mean Corpuscular Hemoglobin 29.4 pg Mean Corpuscular Hemoglobin Concent 32.8 g/dl Platelet Count 316 K/uL Mean Platelet Volume 9.6 fL Neutrophils (%) (Auto) 73.7 % Lymphocytes (%) (Auto) 12.8 % Monocytes (%) (Auto) 7.9 % Eosinophils (%) (Auto) 5.0 % Basophils (%) (Auto) 0.3 % Neutrophils # (Auto) 5.60 K/uL Lymphocytes # (Auto) 0.97 K/uL Monocytes # (Auto) 0.60 K/uL Eosinophils # (Auto) 0.38 K/uL Basophils # (Auto) 0.02 K/uL RDW Standard Deviation 55.1 fL RDW Coefficient of Variation 16.7 % Immature Granulocyte % (Auto) 0.3 % Immature Granulocyte # (Auto) 0.02 K/uL Test 05/15/17 07:28 05/15/17 11:10 05/15/17 16:30 Bedside Glucose 236 mg/dl 346 mg/dl 212 mg/dl Assessment and Plan Colon thickening on CT scan--doubt colitis in absence of ongoing diarrhea anemia---Fe def, B12 and folate ok elevated ferritin--better than 02/2017 so may be acute phase reactant wt loss--GI malignancy in the differential but infection and prolonged hospitalization also could be cause Pt agreeable to EGD/CoLO but concerned about doing soon because of coccyx incision. If planning to keep patient in hospital for a week or more then call us back to arrange scopes. Otherwise recommend outpt scopes be arranged. Will sign off. Disccussed with patient.
[2017-05-15] MEDS ORDERED: INSULIN GLARGINE SOLOSTAR 100 UNITS/ML 3 ML PEN SC SCH (21:00)
[2017-05-15 21:37] VITALS: BP 156/73
[2017-05-16] VITALS: O2SAT 98
[2017-05-16 00:43] VITALS: BP 107/63; PULSE 82; TEMP 36.8; O2SAT 99
[2017-05-16] MEDS: HEPARIN SOD 5000 UNIT/0.5 ML CARP SQ SCH ×2 (05:39→17:09)
[2017-05-16 06:03] LABS: BASO % 0.3 %; BASO ABS # 0.02 K/uL (0-0.2); COMPLETE YES; HEMATOCRIT 32.2 % (42-52); IG% 0.4 %; LYMPH % 17.6 %; LYMPH ABS # 1.36 K/uL (1.2-3.4); MEAN CELL VOLUME 89.2 fL (80-100); MEAN CORPUSCULAR HEMOGLOBIN 28.5 pg (25-34); MEAN PLATELET VOLUME 9.6 fL (7.4-10.4); MONO % 7.5 %; NEUT % 68.2 %; PLATELET COUNT 340 K/uL (130-400); RED BLOOD COUNT 3.61 M/uL (4.7-6.1); WHITE BLOOD COUNT 7.72 K/uL (4.8-10.8)
[2017-05-16 06:33] LABS: BUN/CREATININE RATIO 18.5 (10-20); CALCIUM 8.4 mg/dl (8.5-10.1); CREATININE 2.86 mg/dl (0.60-1.40); MAGNESIUM 1.6 mg/dl (1.8-2.4); POTASSIUM 3.9 mmol/L (3.5-5.1)
[2017-05-16 07:33] VITALS: BP 94/53; PULSE 89; TEMP 36.5; O2SAT 98
--- NOTE | 2017-05-16 08:15 | Hospitalist Progress Note ---
Hospitalist Progress Note Date of Service May 15, 2017. Subjective Pt evaluation today including: conversation w/ patient, conversation w/ applications consultant (GI) Voiding: hallman catheter in place Pt feeling much better today. Has some pain at site of sacral abscess packing, but is eating better. Renal function continues to improve All Other Systems: Reviewed and Negative Objective Vital Signs Date Time Temp Pulse Resp B/P (MAP) Pulse Ox O2 Delivery O2 Flow Rate FiO2 05/16/17 07:33 36.5 89 18 94/53 (67) 98 Room Air 05/16/17 00:43 36.8 82 20 107/63 (78) 99 Room Air 05/16/17 00:00 98 Room Air 05/15/17 21:37 93 156/73 (100) 05/15/17 15:30 98 Room Air 05/15/17 15:07 36.7 73 20 108/63 (78) 98 05/15/17 08:35 Room Air 05/15/17 08:06 36.6 85 18 126/67 (86) 98 Physical Exam General Appearance: no apparent distress, + cachetic (with wasting of all , muscle groups), + thin Eyes: normal inspection, sclerae normal ENT: hearing grossly normal Neck: trachea midline Respiratory/Chest: lungs clear, normal breath sounds, no respiratory distress, no accessory muscle use Cardiovascular: regular rate, rhythm, no edema, no gallop, no murmur Abdomen: normal bowel sounds, non tender, soft, no organomegaly Extremities: non-tender, no pedal edema, no calf tenderness Neurologic/Psychiatric: alert, normal mood/affect, oriented x 3 Skin: normal color, warm/dry, no rash, + pertinent finding (dressing in place over sacrum) Laboratory Results Last 24 Hours Test 05/15/17 11:10 05/15/17 16:30 05/15/17 20:29 05/16/17 05:13 Bedside Glucose 346 mg/dl 212 mg/dl 267 mg/dl White Blood Count 7.72 K/uL Red Blood Count 3.61 M/uL Hemoglobin 10.3 g/dL Hematocrit 32.2 % Mean Corpuscular Volume 89.2 fL Mean Corpuscular Hemoglobin 28.5 pg Mean Corpuscular Hemoglobin Concent 32.0 g/dl Platelet Count 340 K/uL Mean Platelet Volume 9.6 fL Neutrophils (%) (Auto) 68.2 % Lymphocytes (%) (Auto) 17.6 % Monocytes (%) (Auto) 7.5 % Eosinophils (%) (Auto) 6.0 % Basophils (%) (Auto) 0.3 % Neutrophils # (Auto) 5.27 K/uL Lymphocytes # (Auto) 1.36 K/uL Monocytes # (Auto) 0.58 K/uL Eosinophils # (Auto) 0.46 K/uL Basophils # (Auto) 0.02 K/uL RDW Standard Deviation 55.6 fL RDW Coefficient of Variation 17.0 % Immature Granulocyte % (Auto) 0.4 % Immature Granulocyte # (Auto) 0.03 K/uL Sodium Level 138 mmol/L Potassium Level 3.9 mmol/L Chloride Level 102 mmol/L Carbon Dioxide Level 29 mmol/L Anion Gap 7.0 mmol/L Blood Urea Nitrogen 53 mg/dl Creatinine 2.86 mg/dl Est Creatinine Clear Calc Drug Dose 19.2 ml/min Estimated GFR () 24.9 Estimated GFR (Non- 21.5 BUN/Creatinine Ratio 18.5 Random Glucose 192 mg/dl Calcium Level 8.4 mg/dl Magnesium Level 1.6 mg/dl Assessment and Plan Pt is a 67 yo male with a complex PMH most notable for BPH with obstructive uropathy, UTIs with septic shock, neurogenic bladder with hydronephrosis, CAD with NSTEMI in setting of septic shock, ischemic CM with EF 35%, chronic systolic CHF, severe protein calorie malnutrition, MSSA bacteremia and elbow abscess, DMII, anemia, here with MACY, sepsis, and UTI/pyelonephritis, now also with sacral decubitus with underlying abscess and coccyx osteomyelitis 1) MACY/BPH with obstructive uropathy/Neurogenic bladder-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 ATN with granular casts likely from hypovolemia. Bilateral hydro on Renal US is chronic from previous and had flaccid bladder on cystoscopy last month, with indwelling Hallman. With pyelo with fungal and bacterial infection likely. Hopeful that creatinine will continue to improve. Hydronephrosis improved on CT scan abdomen/pelvis here.No stones. -Appreciate Urol consult-d/w Ms. Reyes of Urology, because hydro present previously with normal renal function, probably not causing his current MACY. Would not want to place ureteral stents in due to risk of complications unless worsening condition -Appreciate nephrology consultation -Continue to Follow PRP daily -Continue Hallman catheter -no IVFs needed -Changed indwelling Hallman 05/12 due to UTI POA, then change q month per urology -Continue Flomax 0.4 mg PO hs -Urol signed off, recommends f/u in 2 weeks in office 2) UTI due to chronic indwelling Hallman catheter/pyelonephritis/sepsis/coccyx osteomyelitis and sacral decubitus with abscess/coccyx fracture-improving, leukocytosis resolved, afebrile -Appreciate ID recommendations abx caspofungin for Ur cx which is growing yeast that is not Angelica albicans, follow BCxs -Continue daptomycin and now Zosyn (was on cefepime initially), GNR in sacral wound gram stain, f/u final ID, can likely dc Dapto -Appreciate general surgery consultation for I&D of sacral abscess -Offload the coccyx -will likely need 4-6 weeks IV abx for OM, but will d/w ID -will need PICC line 3) Chronic systolic biventricular CHF/CAD/history of NSTEMI-Does have moderately reduced LVEF as well as RV systolic function on ECHO that is stable after NSTEMI 2 months ago. CHF could be contributing to renal failure. Was also on HCTZ, ACEI, metformin, and Mobic also listed in outpt record. All those meds are now being held. EKG no ischemic changes. Trop negative, repeat ECHO this admission unchanged -Continue atorvastatin 40 mg PO qd -Will need cardiology follow-up at some point as an outpatient -Watch for volume overload -continued aspirin, Plavix, metoprolol 4) Thickened colon and rectum with intermittent diarrhea, history of heme positive stool/significant weight loss-weight loss likely due to chronic inflammation and recurrent infections and hospitalizations, however has never had a colonoscopy. Appreciate GI consultation today-offered EGD and colonoscopy in the near future. No current diarrhea -d/w GI-Dr. Sanabria said to recall him for inpat EGD/colonoscopy if pt agreeable prior to discharge -Otherwise, arrange for EGD/colon as outpt in near future 5) Severe protein calorie malnutrition-suspect all related to poor by mouth intake, chronic illness. Again encouraged Boost Glucose control ordered for improved nutrition, strongly encouraged patient to get out of bed with the nurses to the chair and to participate in PT 6) H/o OCD- concern about lack of motivation to improve health noted by provider , but pt denies this. -Consult psychiatry to evaluate for depression as well as treatment for his OCD which may be detrimental to his overall health improving -Psych does not think he has clinical depression -continue to follow as needed 7) Hypomagnesemia- -replace Mag IV/po -Increase mag oxide to 400 mg PO BID, watch for diarrhea -Continue to monitor 8) DM II--last HgbA1c checked 03/03/17 was 8.6 -Hold metformin -Insulin sliding scale and started Lantus 5 units daily -Check BSGs q ac and qhs 9) Chronic pressure ulcers on left heel and sacrum POA -Wound care nurse consulted -Wound care provider consulted as above for sacral wound, needs f/u in outpt clinic 10) GERD-continue PPI 11) Anemia of chronic disease-Fe studies indicate chronic disease, normocytic. Was previously on B12 and folate but those levels are good now. He has no signs of Myeloproliferative disease as previously stated -continue B12, folate follow CBC 12) Vit D deficiency- Vit D 11 in 12/2016 -continue Vit D supplement DVT prophylaxis -Heparin 5000 units SC q12h Code Status -Level I, FULL RESUSCITATION STATUS Dispo- to rehab when renal function improved and PICC line placed with recommendations of abx course from ID
[2017-05-16] MEDS: METOPROLOL TARTRATE 25 MG TAB PO SCH ×2 (09:00→20:46)
[2017-05-16] MEDS: METHENAMINE HIPPURATE 1 GM TAB PO SCH (09:19)
[2017-05-16] MEDS: TAMSULOSIN HCL 0.4 MG CAP PO SCH (09:19)
[2017-05-16] MEDS: MAGNESIUM OXIDE 400 MG TAB PO SCH ×2 (09:19→20:47)
[2017-05-16] MEDS: PANTOprazole SOD 40 MG TAB PO SCH (09:20)
[2017-05-16] MEDS: ATORVASTATIN 40 MG TAB PO SCH (09:20)
[2017-05-16] MEDS: ASPIRIN 81 MG ECTAB PO SCH (09:20)
[2017-05-16] MEDS: CYANOCOBALAMIN 500 MCG TAB (VIT B-12) PO SCH (09:21)
[2017-05-16] MEDS: CLOPIDOGREL BISULFATE 75 MG TAB PO SCH (09:21)
[2017-05-16] MEDS: INSULIN ASPART 100 UNITS/ML 3 ML PEN SC SCH ×4 (09:32→20:52)
[2017-05-16] MEDS: BOOST GLUCOSE CONTROL PO SCH ×2 (09:33→17:06)
[2017-05-16] MEDS: PIPERACILL/TAZOBAC IV 3.375 GM in DEXTROSE 5% 100ML IV SCH ×2 (10:24→21:42)
--- NOTE | 2017-05-16 11:25 | Nephrology Progress Note ---
Nephrology Progress Note Date of Service May 16, 2017. Chief Complaint Follow-up for acute kidney injury, bilateral hydronephrosis. Subjective Mr. Patel was seen and examined. Denies any symptoms. BP stable. Cr improved to 2.9, decent UO net negative Review of Systems A complete review of systems was performed. Pertinent positives are noted above. All other systems are negative. Vital Signs Last 8 Hrs Date Time Temp Pulse Resp B/P (MAP) Pulse Ox O2 Delivery O2 Flow Rate FiO2 05/16/17 08:30 Room Air 05/16/17 07:33 36.5 89 18 94/53 (67) 98 Room Air Last Recorded Weight Weight (Kilograms): 57.600 Physical Exam GENERAL: middle aged male,, AAA x 3, pleasant, not in any distress. NECK: Supple, no JVD. RESPIRATORY: Normal breathing efforts,clear to auscultation bilaterally, no wheezes or rales. CARDIOVASCULAR: S1, S2 normal, rate rhythm regular. EXTREMITY: No lower extremity edema NEURO: speech fluent. 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 Past 24 Hours 05/16/17 05:13 Red Blood Count 3.61, Mean Corpuscular Volume 89.2, Mean Corpuscular Hemoglobin 28.5, Mean Corpuscular Hemoglobin Concent 32.0, Mean Platelet Volume 9.6, Neutrophils (%) (Auto) 68.2, Lymphocytes (%) (Auto) 17.6, Monocytes (%) (Auto) 7.5, Eosinophils (%) (Auto) 6.0, Basophils (%) (Auto) 0.3, Neutrophils # (Auto) 5.27, Lymphocytes # (Auto) 1.36, Monocytes # (Auto) 0.58, Eosinophils # (Auto) 0.46, Basophils # (Auto) 0.02 05/16/17 05:13 Test 05/15/17 16:30 05/15/17 20:29 05/16/17 05:13 05/16/17 07:36 Bedside Glucose 212 mg/dl (70-99) 267 mg/dl (70-99) 253 mg/dl (70-99) White Blood Count 7.72 K/uL (4.8-10.8) Red Blood Count 3.61 M/uL (4.7-6.1) Hemoglobin 10.3 g/dL (14.0-18.0) Hematocrit 32.2 % (42-52) Mean Corpuscular Volume 89.2 fL (80-100) Mean Corpuscular Hemoglobin 28.5 pg (25-34) Mean Corpuscular Hemoglobin Concent 32.0 g/dl (32-36) Platelet Count 340 K/uL (130-400) Mean Platelet Volume 9.6 fL (7.4-10.4) Neutrophils (%) (Auto) 68.2 % Lymphocytes (%) (Auto) 17.6 % Monocytes (%) (Auto) 7.5 % Eosinophils (%) (Auto) 6.0 % Basophils (%) (Auto) 0.3 % Neutrophils # (Auto) 5.27 K/uL (1.4-6.5) Lymphocytes # (Auto) 1.36 K/uL (1.2-3.4) Monocytes # (Auto) 0.58 K/uL (0.11-0.59) Eosinophils # (Auto) 0.46 K/uL (0-0.5) Basophils # (Auto) 0.02 K/uL (0-0.2) RDW Standard Deviation 55.6 fL (36.4-46.3) RDW Coefficient of Variation 17.0 % (11.5-14.5) Immature Granulocyte % (Auto) 0.4 % Immature Granulocyte # (Auto) 0.03 K/uL (0.00-0.02) Anion Gap 7.0 mmol/L (3-11) Est Creatinine Clear Calc Drug Dose 19.2 ml/min Estimated GFR () 24.9 Estimated GFR (Non- 21.5 BUN/Creatinine Ratio 18.5 (10-20) Calcium Level 8.4 mg/dl (8.5-10.1) Magnesium Level 1.6 mg/dl (1.8-2.4) Allergies Coded Allergies: No Known Allergies (Unverified , 02/27/17) Medications Current Inpatient Medications Medications (Trade) Dose Ordered Sig/Nilda Route Start Time Stop Time Status Last Admin Dose Admin Acetaminophen (Tylenol Tab) 650 mg Q4H PRN PO 05/11/17 21:00 06/10/17 20:59 05/14/17 14:30 650 MG Polyethylene (Miralax Powder Packet) 17 gm DAILY PRN PO 05/11/17 21:00 06/10/17 20:59 Ondansetron HCl (Zofran Inj) 4 mg Q6H PRN IV 05/11/17 21:00 06/10/17 20:59 Heparin Sodium (Porcine) (Heparin Sq 5000 Unit/0.5ml) 5,000 unit Q12H SQ 05/12/17 06:00 06/11/17 05:59 05/16/17 05:39 5,000 UNIT Atorvastatin Calcium (Lipitor Tab) 40 mg QAM PO 05/12/17 09:00 06/11/17 08:59 05/16/17 09:20 40 MG Cyanocobalamin (Vitamin B-12 Tab) 1,000 mcg DAILY PO 05/12/17 09:00 06/11/17 08:59 05/16/17 09:21 1,000 MCG Folic Acid (Folvite Tab) 1 mg QAM PO 05/12/17 09:00 06/11/17 08:59 05/16/17 09:19 1 MG Metoprolol Tartrate (Lopressor Tab) 25 mg BID PO 05/12/17 09:00 06/11/17 08:59 05/15/17 21:39 25 MG Pantoprazole Sodium (Protonix Tab) 40 mg QAM PO 05/12/17 09:00 06/11/17 08:59 05/16/17 09:20 40 MG Tamsulosin HCl (Flomax Cap) 0.4 mg DAILY PO 05/12/17 09:00 06/11/17 08:59 05/16/17 09:19 0.4 MG Insulin Aspart (novoLOG ASPART) SLIDING SCALE G... ACHS SC 05/12/17 07:00 06/11/17 06:59 05/16/17 09:32 10 UNITS Glucose (Glucose 40% Gel) 15-30 GRAMS 15 GRAMS... UD PRN PO 05/11/17 23:15 06/10/17 23:14 Glucose (Glucose Chew Tab) 4-8 Tablets 4 Tabl... UD PRN PO 05/11/17 23:15 06/10/17 23:14 Dextrose (Dextrose 50% 50ML Syringe) 25-50ML OF 50% DW IV FOR... UD PRN IV 05/11/17 23:15 06/10/17 23:14 Glucagon (Glucagon Inj) 1 mg UD PRN SQ 05/11/17 23:15 06/10/17 23:14 Aspirin (Ecotrin Tab) 81 mg DAILY PO 05/13/17 09:00 06/12/17 08:59 05/16/17 09:20 81 MG Clopidogrel Bisulfate (plAVix TAB) 75 mg QAM PO 05/13/17 09:00 06/12/17 08:59 05/16/17 09:21 75 MG Enteral Nutritional Formula (Boost Glucose Control) 1 can BIDM PO 05/12/17 17:00 06/11/17 16:59 05/16/17 09:33 1 CAN Methenamine Hippurate (Urex Tab) 1 gm DAILY PO 05/13/17 09:00 06/12/17 08:59 05/16/17 09:19 1 GM Caspofungin 50 mg/ Sodium Chloride 260 ml @ 250 mls/hr DAILY@1200 IV 05/13/17 12:00 05/23/17 11:59 05/15/17 13:46 250 MLS/HR Magnesium Oxide (Mag-Ox Tab) 400 mg BID PO 05/14/17 21:00 06/13/17 08:59 05/16/17 09:19 400 MG Daptomycin 375 mg/ Syringe 7.5 ml @ 3.75 mls/ min Q2D@1600 IV 05/14/17 16:00 06/25/17 15:59 05/14/17 16:40 3.75 MLS/MIN Piperacillin Sod/ Tazobactam Sod (Consult) 1 ea UD PRN N/A 05/14/17 14:45 06/13/17 14:44 Piperacillin Sod/ Tazobactam Sod 3.375 gm/Dextrose 115 ml @ 28.75 mls/ hr Q12H IV 05/14/17 22:00 06/25/17 21:59 05/16/17 10:24 28.75 MLS/HR Insulin Glargine (Lantus Solostar Pen) 5 units HS SC 05/16/17 21:00 06/14/17 20:59 Magnesium Sulfate 1 gm/Prmx 100 ml @ 100 mls/hr 1130 ONCE IV 05/16/17 11:30 05/16/17 12:29 Impression (1) ATN (acute tubular necrosis) (2) Acute renal insufficiency (3) Hydronephrosis (4) Recurrent UTI (5) Hypertension (6) Urinary tract infection Chava Patel is a frail 67-year-old male with DM II, hypertension, CAD, chronic systolic CHF, neurogenic bladder, and multiple recent hospital admissions. This includes recent treatment for septic shock due to MSSA. Chava has acute renal failure consistent with ATN. Granular cast noted on urine microscopy. I cannot exclude a post renal obstructive component to renal dysfunction given persistent bilateral hydronephrosis. He has had recurrent UTI and may require additional intervention for decompression of the urinary system. At this time, he does not has systemic signs or symptoms of infection. Urine cultures pending. Urology following. Repeat CT scan pending. Volume status appropriate. TTE notable for reduced LV systolic function (35-40% ) with global and severe inferior wall hypokinesis, grade 1 diastolic dysfunction with mild dilation of the LV. Moderate MR noted. Baseline creatinine normal at 0.8 mg/dL. UA shows orange urine with +3 protein. Microscopic evaluation notable for >30 WBC, 10-30 RBC, granular cast. Renal US reviewed noting BL hydronephrosis. Lisinopril, HCTZ and metformin have been held. Recommendations --continue to monitor renal function with daily renal panel, expect renal function to continue to improve. -- Maintain even fluid balance, encouraged pt to drink more as he has been persistently net negative -- Document I/O's -- Hold lisinopril, HCTZ and metformin -- Encourage nutrition
[2017-05-16] MEDS ORDERED: MAGNESIUM SULFATE 1GM / D5W 1 GM in PREMIXED IN D5W 100 ML IV ONE (11:30)
[2017-05-16] MEDS: CASPOFUNGIN INJ 50 MG in SODIUM CHLORIDE 0.9% 250ML 250 ML IV SCH ×2 (12:00→14:32)
[2017-05-16 15:09] VITALS: BP 93/54; PULSE 89; TEMP 36.6; O2SAT 97
[2017-05-16] MEDS: DAPTOmycin IV 375 MG in SYRINGE 0 ML IV SCH (16:00)
--- NOTE | 2017-05-16 16:00 | Progress Note ---
Subjective Date of Service: May 16, 2017. Subjective Pt evaluation today including: conversation w/ patient, physical exam, chart review, lab review, review of studies, review of inpatient medication list Pain: no pain reported PO Intake: good Voiding: hallman catheter in place Pt feeling much better today. Has some pain at site of sacral abscess packing, but is eating better. Problem List Medical Problems: (1) ARF (acute renal failure) Status: Acute (2) Dehydration Status: Acute (3) DKA (diabetic ketoacidoses) Status: Acute (4) Generalized weakness Status: Acute (5) Urinary tract infection Status: Acute Review of Systems All Other Systems: Reviewed and Negative Medications Medications (Trade) Dose Ordered Sig/Nilda Route Start Time Stop Time Status Last Admin Dose Admin Insulin Glargine (Lantus Solostar Pen) 5 units HS SC 05/15/17 21:00 05/16/17 10:31 DC 05/15/17 21:57 5 UNITS Objective Vital Signs Date Time Temp Pulse Resp B/P (MAP) Pulse Ox O2 Delivery O2 Flow Rate FiO2 05/16/17 08:30 Room Air 05/16/17 07:33 36.5 89 18 94/53 (67) 98 Room Air 05/16/17 00:43 36.8 82 20 107/63 (78) 99 Room Air 05/16/17 00:00 98 Room Air 05/15/17 21:37 93 156/73 (100) 05/15/17 15:30 98 Room Air 05/15/17 15:07 36.7 73 20 108/63 (78) 98 Physical Exam Comments: General Appearance: no apparent distress, + cachetic (with wasting of all , muscle groups), + thin Eyes: normal inspection, sclerae normal ENT: hearing grossly normal Neck: trachea midline Respiratory/Chest: lungs clear, normal breath sounds, no respiratory distress, no accessory muscle use Cardiovascular: regular rate, rhythm, no edema, no gallop, no murmur Abdomen: normal bowel sounds, non tender, soft, no organomegaly Extremities: non-tender, no pedal edema, no calf tenderness Neurologic/Psychiatric: alert, normal mood/affect, oriented x 3 Skin: normal color, warm/dry, no rash, + pertinent finding (dressing in place over sacrum) Laboratory Results Last 24 Hours Test 05/15/17 11:10 05/15/17 16:30 05/15/17 20:29 05/16/17 05:13 Bedside Glucose 346 mg/dl 212 mg/dl 267 mg/dl White Blood Count 7.72 K/uL Red Blood Count 3.61 M/uL Hemoglobin 10.3 g/dL Hematocrit 32.2 % Mean Corpuscular Volume 89.2 fL Mean Corpuscular Hemoglobin 28.5 pg Mean Corpuscular Hemoglobin Concent 32.0 g/dl Platelet Count 340 K/uL Mean Platelet Volume 9.6 fL Neutrophils (%) (Auto) 68.2 % Lymphocytes (%) (Auto) 17.6 % Monocytes (%) (Auto) 7.5 % Eosinophils (%) (Auto) 6.0 % Basophils (%) (Auto) 0.3 % Neutrophils # (Auto) 5.27 K/uL Lymphocytes # (Auto) 1.36 K/uL Monocytes # (Auto) 0.58 K/uL Eosinophils # (Auto) 0.46 K/uL Basophils # (Auto) 0.02 K/uL RDW Standard Deviation 55.6 fL RDW Coefficient of Variation 17.0 % Immature Granulocyte % (Auto) 0.4 % Immature Granulocyte # (Auto) 0.03 K/uL Sodium Level 138 mmol/L Potassium Level 3.9 mmol/L Chloride Level 102 mmol/L Carbon Dioxide Level 29 mmol/L Anion Gap 7.0 mmol/L Blood Urea Nitrogen 53 mg/dl Creatinine 2.86 mg/dl Est Creatinine Clear Calc Drug Dose 19.2 ml/min Estimated GFR () 24.9 Estimated GFR (Non- 21.5 BUN/Creatinine Ratio 18.5 Random Glucose 192 mg/dl Calcium Level 8.4 mg/dl Magnesium Level 1.6 mg/dl Test 05/16/17 07:36 Bedside Glucose 253 mg/dl Assessment and Plan Pt is a 67 yo male with a complex PMH most notable for BPH with obstructive uropathy, UTIs with septic shock, neurogenic bladder with hydronephrosis, CAD with NSTEMI in setting of septic shock, ischemic CM with EF 35%, chronic systolic CHF, severe protein calorie malnutrition, MSSA bacteremia and elbow abscess, DMII, anemia, here with MACY, sepsis, and UTI/pyelonephritis, now also with sacral decubitus with underlying abscess and coccyx osteomyelitis 1) MACY/BPH with obstructive uropathy/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 ATN with granular casts likely from hypovolemia. Bilateral hydro on Renal US is chronic from previous and had flaccid bladder on cystoscopy last month, with indwelling Hallman. With pyelo with fungal and bacterial infection likely. Hopeful that creatinine will continue to improve. Hydronephrosis improved on CT scan abdomen/pelvis here.No stones. -Appreciate Urol consult-d/w Ms. Reyes of Urology, because hydro present previously with normal renal function, probably not causing his current MACY. Would not want to place ureteral stents in due to risk of complications unless worsening condition -Appreciate nephrology consultation -Continue to Follow PRP daily, Cr improved 2.85 -Continue Hallman catheter -no IVFs needed -Changed indwelling Hallman 05/12 due to UTI POA, then change q month per urology -Continue Flomax 0.4 mg PO hs -Urol signed off, recommends f/u in 2 weeks in office 2) UTI due to chronic indwelling Hallman catheter/pyelonephritis/sepsis/coccyx osteomyelitis and sacral decubitus with abscess/coccyx fracture-improving, leukocytosis resolved, afebrile -Appreciate ID recommendations abx caspofungin for Ur cx which is growing yeast that is not Angelica albicans, follow BCxs -Continue daptomycin and now Zosyn (was on cefepime initially), GNR in sacral wound gram stain, f/u final ID, can likely dc Dapto -Appreciate general surgery consultation for I&D of sacral abscess -Offload the coccyx -will likely need 4-6 weeks IV abx for OM, but will d/w ID -will need PICC line 3) Chronic systolic biventricular CHF/CAD/history of NSTEMI-Does have moderately reduced LVEF as well as RV systolic function on ECHO that is stable after NSTEMI 2 months ago. CHF could be contributing to renal failure. Was also on HCTZ, ACEI, metformin, and Mobic also listed in outpt record. All those meds are now being held. EKG no ischemic changes. Trop negative, repeat ECHO this admission unchanged -Continue atorvastatin 40 mg PO qd -Will need cardiology follow-up at some point as an outpatient -Watch for volume overload- doing well -continued aspirin, Plavix, metoprolol 4) Thickened colon and rectum with intermittent diarrhea, history of heme positive stool/significant weight loss-weight loss likely due to chronic inflammation and recurrent infections and hospitalizations, however has never had a colonoscopy. Appreciate GI consultation today-offered EGD and colonoscopy in the near future. No current diarrhea -d/w GI-Dr. Sanabria said to recall him for inpat EGD/colonoscopy if pt agreeable prior to discharge -Otherwise, arrange for EGD/colon as outpt in near future 5) Severe protein calorie malnutrition-suspect all related to poor by mouth intake, chronic illness. Again encouraged Boost Glucose control ordered for improved nutrition, strongly encouraged patient to get out of bed with the nurses to the chair and to participate in PT 6) H/o OCD- concern about lack of motivation to improve health noted by provider , but pt denies this. -Consult psychiatry to evaluate for depression as well as treatment for his OCD which may be detrimental to his overall health improving -Psych does not think he has clinical depression -continue to follow as needed 7) Hypomagnesemia- -replace Mag IV/po -Increase mag oxide to 400 mg PO BID, watch for diarrhea -Continue to monitor 8) DM II--last HgbA1c checked 03/03/17 was 8.6 -Hold metformin -Insulin sliding scale and started Lantus 5 units daily -Check BSGs q ac and qhs 9) Chronic pressure ulcers on left heel and sacrum POA -Wound care nurse consulted -Wound care provider consulted as above for sacral wound, needs f/u in outpt clinic 10) GERD-continue PPI 11) Anemia of chronic disease-Fe studies indicate chronic disease, normocytic. Was previously on B12 and folate but those levels are good now. He has no signs of Myeloproliferative disease as previously stated -continue B12, folate follow CBC 12) Vit D deficiency- Vit D 11 in 12/2016 -continue Vit D supplement DVT prophylaxis -Heparin 5000 units SC q12h Code Status -Level I, FULL RESUSCITATION STATUS Continued [facility] stay due to: multiple IV medications needed Discharge planning: other
[2017-05-16 20:44] VITALS: BP 100/58; PULSE 86
[2017-05-16] MEDS ORDERED: INSULIN GLARGINE SOLOSTAR 100 UNITS/ML 3 ML PEN SC SCH (21:00)
[2017-05-17] VITALS: O2SAT 98
[2017-05-17 00:30] VITALS: BP 106/56; PULSE 92; TEMP 36.7; O2SAT 94
[2017-05-17] MEDS: HEPARIN SOD 5000 UNIT/0.5 ML CARP SQ SCH ×2 (06:10→17:56)
[2017-05-17 07:26] LABS: HEMATOCRIT 31.5 % (42-52); MEAN CELL VOLUME 90.8 fL (80-100); MEAN CORPUSCULAR HEMOGLOBIN 29.4 pg (25-34); MEAN CORPUSCULAR HGB CONC 32.4 g/dl (32-36); MEAN PLATELET VOLUME 9.4 fL (7.4-10.4); PLATELET COUNT 348 K/uL (130-400); RED BLOOD COUNT 3.47 M/uL (4.7-6.1); WHITE BLOOD COUNT 7.32 K/uL (4.8-10.8)
[2017-05-17 07:43] VITALS: BP 157/76; PULSE 88; TEMP 36.6; O2SAT 98
[2017-05-17] MEDS: BOOST GLUCOSE CONTROL PO SCH ×2 (09:31→17:00)
[2017-05-17] MEDS: ASPIRIN 81 MG ECTAB PO SCH (09:31)
[2017-05-17] MEDS: INSULIN ASPART 100 UNITS/ML 3 ML PEN SC SCH ×4 (09:31→21:01)
[2017-05-17] MEDS: CLOPIDOGREL BISULFATE 75 MG TAB PO SCH (09:31)
[2017-05-17] MEDS: ATORVASTATIN 40 MG TAB PO SCH (09:31)
[2017-05-17] MEDS: METOPROLOL TARTRATE 25 MG TAB PO SCH ×2 (09:32→20:57)
[2017-05-17] MEDS: MAGNESIUM OXIDE 400 MG TAB PO SCH ×2 (09:32→20:58)
[2017-05-17] MEDS: PANTOprazole SOD 40 MG TAB PO SCH (09:32)
[2017-05-17] MEDS: CYANOCOBALAMIN 500 MCG TAB (VIT B-12) PO SCH (09:32)
[2017-05-17] MEDS: METHENAMINE HIPPURATE 1 GM TAB PO SCH (09:32)
[2017-05-17] MEDS: TAMSULOSIN HCL 0.4 MG CAP PO SCH (09:33)
[2017-05-17] MEDS: PIPERACILL/TAZOBAC IV 3.375 GM in DEXTROSE 5% 100ML IV SCH ×2 (10:17→17:52)
[2017-05-17 11:16] LABS: BUN/CREATININE RATIO 21.8 (10-20); CALCIUM 8.5 mg/dl (8.5-10.1); CREATININE 1.98 mg/dl (0.60-1.40); POTASSIUM 4.4 mmol/L (3.5-5.1)
--- NOTE | 2017-05-17 11:20 | Progress Note ---
Subjective Date of Service: May 17, 2017. Subjective Pt evaluation today including: conversation w/ patient, physical exam, chart review, lab review, review of studies, review of inpatient medication list Pain: no pain PO Intake: good Pt is seen and examined by me. pt denies cp, sob, dizziness, palpation, nausea, vomiting and diarrhea. pt BG are high and snacking frequently during the day. Problem List Medical Problems: (1) ARF (acute renal failure) Status: Acute (2) Dehydration Status: Acute (3) DKA (diabetic ketoacidoses) Status: Acute (4) Generalized weakness Status: Acute (5) Urinary tract infection Status: Acute Review of Systems All Other Systems: Reviewed and Negative Medications Medications (Trade) Dose Ordered Sig/Nilda Route Start Time Stop Time Status Last Admin Dose Admin Insulin Glargine (Lantus Solostar Pen) 5 units HS SC 05/16/17 21:00 06/14/17 20:59 05/16/17 20:52 5 UNITS Magnesium Sulfate 1 gm/Prmx 100 ml @ 100 mls/hr 1130 ONCE IV 05/16/17 11:30 05/16/17 12:29 DC 05/16/17 12:27 100 MLS/HR Objective Vital Signs Date Time Temp Pulse Resp B/P (MAP) Pulse Ox O2 Delivery O2 Flow Rate FiO2 05/17/17 08:30 Room Air 05/17/17 07:43 36.6 88 18 157/76 (103) 98 Room Air 05/17/17 00:30 36.7 92 20 106/56 (73) 94 Room Air 05/17/17 00:00 98 Room Air 05/16/17 20:44 86 100/58 (72) 05/16/17 16:42 Room Air 05/16/17 15:09 36.6 89 18 93/54 (67) 97 Room Air Physical Exam General Appearance: no apparent distress Eyes: EOMI Neck: supple Respiratory/Chest: lungs clear, normal breath sounds, no respiratory distress Cardiovascular: regular rate, rhythm, no edema, no JVD Abdomen: soft, no organomegaly Extremities: non-tender, normal inspection, no pedal edema Neurologic/Psychiatric: alert, normal mood/affect, oriented x 3 Skin: no rash Laboratory Results Last 24 Hours Test 05/16/17 11:30 05/16/17 16:36 05/16/17 20:12 05/17/17 07:17 Bedside Glucose 273 mg/dl 242 mg/dl 308 mg/dl White Blood Count 7.32 K/uL Red Blood Count 3.47 M/uL Hemoglobin 10.2 g/dL Hematocrit 31.5 % Mean Corpuscular Volume 90.8 fL Mean Corpuscular Hemoglobin 29.4 pg Mean Corpuscular Hemoglobin Concent 32.4 g/dl RDW Standard Deviation 58.4 fL RDW Coefficient of Variation 17.7 % Platelet Count 348 K/uL Mean Platelet Volume 9.4 fL Magnesium Level 1.8 mg/dl Test 05/17/17 07:47 05/17/17 10:27 Bedside Glucose 300 mg/dl Assessment and Plan Pt is a 67 yo male with a complex PMH most notable for BPH with obstructive uropathy, UTIs with septic shock, neurogenic bladder with hydronephrosis, CAD with NSTEMI in setting of septic shock, ischemic CM with EF 35%, chronic systolic CHF, severe protein calorie malnutrition, MSSA bacteremia and elbow abscess, DMII, anemia, here with MACY, sepsis, and UTI/pyelonephritis, now also with sacral decubitus with underlying abscess and coccyx osteomyelitis 1) MACY/BPH with obstructive uropathy/Neurogenic bladder-point of care technician peaked at 4.07 this admission, now continues to improve, secondary to ATN, prerenal in nature, pt says was drinking maybe 1-2 glasses water total daily. ATN with granular casts likely from hypovolemia. Bilateral hydro on Renal US is chronic from previous and had flaccid bladder on cystoscopy last month, with indwelling Miller. With pyelo with fungal and bacterial infection likely. Hopeful that creatinine will continue to improve. Hydronephrosis improved on CT scan abdomen/pelvis here.No stones. -Appreciate Urol consult-d/w Ms. Reyes of Urology, because hydro present previously with normal renal function, probably not causing his current MACY. Would not want to place ureteral stents in due to risk of complications unless worsening condition -Appreciate nephrology consultation -Continue to Follow PRP daily, Cr improved -Continue Miller catheter -- Hold lisinopril, HCTZ and metformin -maintain oral hydration -Changed indwelling Miller 05/12 due to UTI POA, then change q month per urology -Continue Flomax 0.4 mg PO hs -Urol signed off, recommends f/u in 2 weeks in office 2) UTI due to chronic indwelling Miller catheter/pyelonephritis/sepsis/coccyx osteomyelitis and sacral decubitus with abscess/coccyx fracture-improving, leukocytosis resolved, afebrile -Appreciate ID recommendations abx caspofungin for Ur cx which is growing yeast that is not Angelica albicans, follow BCxs -Continue daptomycin and now Zosyn (was on cefepime initially), GNR in sacral wound gram stain, f/u final ID, can likely dc Dapto -Appreciate general surgery consultation for I&D of sacral abscess -Offload the coccyx -will likely need 4-6 weeks IV abx for OM, but will d/w ID -will need PICC line 3) Chronic systolic biventricular CHF/CAD/history of NSTEMI-Does have moderately reduced LVEF as well as RV systolic function on ECHO that is stable after NSTEMI 2 months ago. CHF could be contributing to renal failure. Was also on HCTZ, ACEI, metformin, and Mobic also listed in outpt record. All those meds are now being held. EKG no ischemic changes. Trop negative, repeat ECHO this admission unchanged -Continue atorvastatin 40 mg PO qd -Will need cardiology follow-up at some point as an outpatient -Watch for volume overload- doing well -continued aspirin, Plavix, metoprolol 4) Thickened colon and rectum with intermittent diarrhea, history of heme positive stool/significant weight loss-weight loss likely due to chronic inflammation and recurrent infections and hospitalizations, however has never had a colonoscopy. Appreciate GI consultation today-offered EGD and colonoscopy in the near future. No current diarrhea -d/w GI-Dr. Sanabria said to recall him for inpat EGD/colonoscopy if pt agreeable prior to discharge -Otherwise, arrange for EGD/colon as outpt in near future 5) Severe protein calorie malnutrition-suspect all related to poor by mouth intake, chronic illness. Again encouraged Boost Glucose control ordered for improved nutrition, strongly encouraged patient to get out of bed with the nurses to the chair and to participate in PT 6) H/o OCD- concern about lack of motivation to improve health noted by provider , but pt denies this. -Consult psychiatry to evaluate for depression as well as treatment for his OCD which may be detrimental to his overall health improving -Psych does not think he has clinical depression -continue to follow as needed 7) Hypomagnesemia- -replace Mag IV/po -Increase mag oxide to 400 mg PO BID, watch for diarrhea -Continue to monitor 8) DM II--last HgbA1c checked 03/03/17 was 8.6-- Uncontrolled - will increase lantus to 8 unit sq Hs and change the Novalog scale to 1:10 g carb counting and tighten the scale to 1:20>140mg/dl -Hold metformin -Check BSGs q ac and qhs - Tighten Bg will help in wound closure 9) Chronic pressure ulcers on left heel and sacrum POA -Wound care nurse consulted -Wound care provider consulted as above for sacral wound, needs f/u in outpt clinic 10) GERD-continue PPI 11) Anemia of chronic disease-Fe studies indicate chronic disease, normocytic. Was previously on B12 and folate but those levels are good now. He has no signs of Myeloproliferative disease as previously stated -continue B12, folate follow CBC 12) Vit D deficiency- Vit D 11 in 12/2016 -continue Vit D supplement DVT prophylaxis -Heparin 5000 units SC q12h Code Status -Level I, FULL RESUSCITATION STATUS Continued [facility] stay due to: multiple IV medications needed Discharge planning: home with home health, uncertain
--- NOTE | 2017-05-17 11:33 | Nephrology Progress Note ---
Nephrology Progress Note Date of Service May 17, 2017. Chief Complaint Follow-up for acute kidney injury, bilateral hydronephrosis. Subjective Mr. Patel was seen and examined in his room this morning. Has been otherwise feeling, no overnight events. Denies chest pain shortness of breath fever chills. Renal function improving, creatinine 2.0 this morning, electrolyte acceptable. Continues to have decent urine output and has been net negative. Blood pressure acceptable. Review of Systems A complete review of systems was performed. Pertinent positives are noted above. All other systems are negative. Vital Signs Last 8 Hrs Date Time Temp Pulse Resp B/P (MAP) Pulse Ox O2 Delivery O2 Flow Rate FiO2 05/17/17 08:30 Room Air 05/17/17 07:43 36.6 88 18 157/76 (103) 98 Room Air Last Recorded Weight Weight (Kilograms): 58.000 Physical Exam GENERAL: middle aged male,, AAA x 3, chronically ill-appearing, not in any distress. NECK: Supple, no JVD. RESPIRATORY: Normal breathing efforts,clear to auscultation bilaterally, no wheezes or rales. CARDIOVASCULAR: S1, S2 normal, rate rhythm regular. EXTREMITY: No lower extremity edema NEURO: speech fluent. 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 Past 24 Hours 05/17/17 07:17 Test 05/16/17 11:30 05/16/17 16:36 05/16/17 20:12 05/17/17 07:17 Bedside Glucose 273 mg/dl (70-99) 242 mg/dl (70-99) 308 mg/dl (70-99) Red Blood Count 3.47 M/uL (4.7-6.1) Mean Corpuscular Volume 90.8 fL (80-100) Mean Corpuscular Hemoglobin 29.4 pg (25-34) Mean Corpuscular Hemoglobin Concent 32.4 g/dl (32-36) RDW Standard Deviation 58.4 fL (36.4-46.3) RDW Coefficient of Variation 17.7 % (11.5-14.5) Mean Platelet Volume 9.4 fL (7.4-10.4) Magnesium Level 1.8 mg/dl (1.8-2.4) Test 05/17/17 07:47 05/17/17 10:17 Bedside Glucose 300 mg/dl (70-99) Allergies Coded Allergies: No Known Allergies (Unverified , 02/27/17) Medications Current Inpatient Medications Medications (Trade) Dose Ordered Sig/Nilda Route Start Time Stop Time Status Last Admin Dose Admin Acetaminophen (Tylenol Tab) 650 mg Q4H PRN PO 05/11/17 21:00 06/10/17 20:59 05/14/17 14:30 650 MG Polyethylene (Miralax Powder Packet) 17 gm DAILY PRN PO 05/11/17 21:00 06/10/17 20:59 Ondansetron HCl (Zofran Inj) 4 mg Q6H PRN IV 05/11/17 21:00 06/10/17 20:59 Heparin Sodium (Porcine) (Heparin Sq 5000 Unit/0.5ml) 5,000 unit Q12H SQ 05/12/17 06:00 06/11/17 05:59 05/17/17 06:10 5,000 UNIT Atorvastatin Calcium (Lipitor Tab) 40 mg QAM PO 05/12/17 09:00 06/11/17 08:59 05/17/17 09:31 40 MG Cyanocobalamin (Vitamin B-12 Tab) 1,000 mcg DAILY PO 05/12/17 09:00 06/11/17 08:59 05/17/17 09:32 1,000 MCG Folic Acid (Folvite Tab) 1 mg QAM PO 05/12/17 09:00 06/11/17 08:59 05/17/17 09:33 1 MG Metoprolol Tartrate (Lopressor Tab) 25 mg BID PO 05/12/17 09:00 06/11/17 08:59 05/17/17 09:32 25 MG Pantoprazole Sodium (Protonix Tab) 40 mg QAM PO 05/12/17 09:00 06/11/17 08:59 05/17/17 09:32 40 MG Tamsulosin HCl (Flomax Cap) 0.4 mg DAILY PO 05/12/17 09:00 06/11/17 08:59 05/17/17 09:33 0.4 MG Insulin Aspart (novoLOG ASPART) SLIDING SCALE G... ACHS SC 05/12/17 07:00 06/11/17 06:59 05/17/17 09:31 13 UNITS Glucose (Glucose 40% Gel) 15-30 GRAMS 15 GRAMS... UD PRN PO 05/11/17 23:15 06/10/17 23:14 Glucose (Glucose Chew Tab) 4-8 Tablets 4 Tabl... UD PRN PO 05/11/17 23:15 06/10/17 23:14 Dextrose (Dextrose 50% 50ML Syringe) 25-50ML OF 50% DW IV FOR... UD PRN IV 05/11/17 23:15 06/10/17 23:14 Glucagon (Glucagon Inj) 1 mg UD PRN SQ 05/11/17 23:15 06/10/17 23:14 Aspirin (Ecotrin Tab) 81 mg DAILY PO 05/13/17 09:00 06/12/17 08:59 05/17/17 09:31 81 MG Clopidogrel Bisulfate (plAVix TAB) 75 mg QAM PO 05/13/17 09:00 06/12/17 08:59 05/17/17 09:31 75 MG Enteral Nutritional Formula (Boost Glucose Control) 1 can BIDM PO 05/12/17 17:00 06/11/17 16:59 05/17/17 09:31 1 CAN Methenamine Hippurate (Urex Tab) 1 gm DAILY PO 05/13/17 09:00 06/12/17 08:59 05/17/17 09:32 1 GM Magnesium Oxide (Mag-Ox Tab) 400 mg BID PO 05/14/17 21:00 06/13/17 08:59 05/17/17 09:32 400 MG Daptomycin 375 mg/ Syringe 7.5 ml @ 3.75 mls/ min Q2D@1600 IV 05/14/17 16:00 06/25/17 15:59 05/16/17 16:00 3.75 MLS/MIN Piperacillin Sod/ Tazobactam Sod (Consult) 1 ea UD PRN N/A 05/14/17 14:45 06/13/17 14:44 Piperacillin Sod/ Tazobactam Sod 3.375 gm/Dextrose 115 ml @ 28.75 mls/ hr Q12H IV 05/14/17 22:00 06/25/17 21:59 11/12/17 10:17 28.75 MLS/HR Insulin Glargine (Lantus Solostar Pen) 5 units HS SC 05/16/17 21:00 06/14/17 20:59 05/16/17 20:52 5 UNITS Caspofungin 50 mg/ Sodium Chloride 260 ml @ 250 mls/hr Q24H IV 05/17/17 14:00 05/23/17 13:59 Impression (1) ATN (acute tubular necrosis) (2) Acute renal insufficiency (3) Hydronephrosis (4) Recurrent UTI (5) Hypertension (6) Urinary tract infection Chava Patel is a frail 67-year-old male with DM II, hypertension, CAD, chronic systolic CHF, neurogenic bladder, and multiple recent hospital admissions. This includes recent treatment for septic shock due to MSSA. Chava has acute renal failure consistent with ATN. Granular cast noted on urine microscopy. Has persistent bilateral hydronephrosis. He has had recurrent UTI and may require additional intervention for decompression of the urinary system. Urine cultures pending. Urology following. Repeat CT scan pending. Baseline creatinine normal at 0.8 mg/dL. UA shows orange urine with +3 protein. Microscopic evaluation notable for >30 WBC, 10-30 RBC, granular cast. Renal US reviewed noting BL hydronephrosis. Lisinopril, HCTZ and metformin have been held. Creatinine peaked to 4.1, now slowly improving last creatinine was 2.9, electrolyte acceptable. Has decent urine output, continues to be net negative. He was also found to have sacral osteomyelitis, wound culture growing Pseudomonas. Has MSSA and fungal urosepsis and currently on caspofungin, daptomycin and Zosyn. Volume status appropriate. TTE notable for reduced LV systolic function (35-40% ) with global and severe inferior wall hypokinesis, grade 1 diastolic dysfunction with mild dilation of the LV. Moderate MR noted. Recommendations --renal function continues to improve, creatinine was 2.0, electrolyte, volume status and blood pressure acceptable. Check renal panel in a.m. -- Maintain even fluid balance, encouraged pt to drink more as he has been persistently net negative -- Document I/O's -- continue to Hold lisinopril, HCTZ and metformin -- Encourage nutrition
[2017-05-17] MEDS: CASPOFUNGIN INJ 50 MG in SODIUM CHLORIDE 0.9% 250ML 250 ML IV SCH (14:43)
[2017-05-17 15:14] VITALS: BP 84/49; PULSE 92; TEMP 36.6; O2SAT 98
[2017-05-17 20:55] VITALS: BP 126/71; PULSE 93
[2017-05-17] MEDS: INSULIN GLARGINE SOLOSTAR 100 UNITS/ML 3 ML PEN SC SCH (21:02)
[2017-05-18] VITALS: BP 129/67; PULSE 81; TEMP 36.6; O2SAT 99
[2017-05-18] MEDS: PIPERACILL/TAZOBAC IV 3.375 GM in DEXTROSE 5% 100ML IV SCH ×3 (01:08→17:50)
[2017-05-18] MEDS: HEPARIN SOD 5000 UNIT/0.5 ML CARP SQ SCH ×2 (05:36→18:03)
[2017-05-18 07:10] LABS: HEMATOCRIT 31.7 % (42-52); MEAN CELL VOLUME 91.6 fL (80-100); MEAN CORPUSCULAR HEMOGLOBIN 29.2 pg (25-34); MEAN CORPUSCULAR HGB CONC 31.9 g/dl (32-36); MEAN PLATELET VOLUME 9.6 fL (7.4-10.4); PLATELET COUNT 388 K/uL (130-400); RED BLOOD COUNT 3.46 M/uL (4.7-6.1); WHITE BLOOD COUNT 7.32 K/uL (4.8-10.8)
[2017-05-18 07:35] LABS: BUN/CREATININE RATIO 20.4 (10-20); CALCIUM 8.5 mg/dl (8.5-10.1); CREATININE 2.05 mg/dl (0.60-1.40); MAGNESIUM 1.5 mg/dl (1.8-2.4); POTASSIUM 4.4 mmol/L (3.5-5.1)
[2017-05-18 08:05] VITALS: BP 159/71; PULSE 94; TEMP 36.5; O2SAT 97
[2017-05-18] MEDS: BOOST GLUCOSE CONTROL PO SCH ×2 (08:11→17:13)
[2017-05-18] MEDS: CLOPIDOGREL BISULFATE 75 MG TAB PO SCH (08:12)
[2017-05-18] MEDS: ATORVASTATIN 40 MG TAB PO SCH (08:12)
[2017-05-18] MEDS: CYANOCOBALAMIN 500 MCG TAB (VIT B-12) PO SCH (08:12)
[2017-05-18] MEDS: ASPIRIN 81 MG ECTAB PO SCH (08:12)
[2017-05-18] MEDS: MAGNESIUM OXIDE 400 MG TAB PO SCH ×2 (08:13→20:36)
[2017-05-18] MEDS: TAMSULOSIN HCL 0.4 MG CAP PO SCH (08:13)
[2017-05-18] MEDS: METHENAMINE HIPPURATE 1 GM TAB PO SCH (08:13)
[2017-05-18] MEDS: PANTOprazole SOD 40 MG TAB PO SCH (08:13)
[2017-05-18] MEDS: METOPROLOL TARTRATE 25 MG TAB PO SCH ×2 (08:13→20:44)
[2017-05-18] MEDS: INSULIN ASPART 100 UNITS/ML 3 ML PEN SC SCH ×4 (08:17→20:36)
[2017-05-18] MEDS ORDERED: MAGNESIUM SULFATE 1GM / D5W 1 GM in PREMIXED IN D5W 100 ML IV ONE (10:30)
--- NOTE | 2017-05-18 11:58 | Nephrology Progress Note ---
Nephrology Progress Note Date of Service May 18, 2017. Chief Complaint Acute kidney injury Subjective Mr. Patel was seen & examined in his hospital room this morning. He denied fever, flank pain, dyspnea or uremic symptoms. Miller catheter remains in place draining clear yellow urine. Patient complains of weakness. Review of Systems Constitutional: No fever Cardiovascular: No chest pain Respiratory: No dyspnea at rest Abdomen: No pain, No nausea, No vomiting, No diarrhea Extremities: No leg edema A complete review of systems was performed. Pertinent positives are noted above. All other systems are negative. Vital Signs Last 8 Hrs Date Time Temp Pulse Resp B/P (MAP) Pulse Ox O2 Delivery O2 Flow Rate FiO2 05/18/17 08:05 36.5 94 18 159/71 (100) 97 Room Air 05/18/17 08:00 Room Air Last Recorded Weight Weight (Kilograms): 58.700 Physical Exam General Appearance: no apparent distress Head: normocephalic, atraumatic Eyes: PERRL Neck: no adenopathy Respiratory/Chest: lungs clear, no respiratory distress Cardiovascular: regular rate, rhythm Abdomen/GI: normal bowel sounds, non tender, soft Extremities/Musculoskelatal: no calf tenderness, no pedal edema Neurologic/Psych: alert, oriented x 3 Family History No pertinent family history Social History Smokeless Tobacco Use: No Alcohol Use: occasionally Drug Use: none Marital Status: single Occupation: employed Laboratory Results Past 24 Hours 05/18/17 06:41 05/18/17 06:41 Test 05/17/17 15:58 05/17/17 20:03 05/18/17 06:41 05/18/17 07:03 Bedside Glucose 266 mg/dl (70-99) 258 mg/dl (70-99) 272 mg/dl (70-99) Red Blood Count 3.46 M/uL (4.7-6.1) Mean Corpuscular Volume 91.6 fL (80-100) Mean Corpuscular Hemoglobin 29.2 pg (25-34) Mean Corpuscular Hemoglobin Concent 31.9 g/dl (32-36) RDW Standard Deviation 60.0 fL (36.4-46.3) RDW Coefficient of Variation 18.0 % (11.5-14.5) Mean Platelet Volume 9.6 fL (7.4-10.4) Anion Gap 9.0 mmol/L (3-11) Est Creatinine Clear Calc Drug Dose 28.2 ml/min Estimated GFR () 37.2 Estimated GFR (Non- 32.1 BUN/Creatinine Ratio 20.4 (10-20) Calcium Level 8.5 mg/dl (8.5-10.1) Magnesium Level 1.5 mg/dl (1.8-2.4) Test 05/18/17 11:14 Bedside Glucose 286 mg/dl (70-99) Allergies Coded Allergies: No Known Allergies (Unverified , 02/27/17) Medications Current Inpatient Medications Medications (Trade) Dose Ordered Sig/Nilda Route Start Time Stop Time Status Last Admin Dose Admin Acetaminophen (Tylenol Tab) 650 mg Q4H PRN PO 05/11/17 21:00 06/10/17 20:59 05/14/17 14:30 650 MG Polyethylene (Miralax Powder Packet) 17 gm DAILY PRN PO 05/11/17 21:00 06/10/17 20:59 Ondansetron HCl (Zofran Inj) 4 mg Q6H PRN IV 05/11/17 21:00 06/10/17 20:59 Heparin Sodium (Porcine) (Heparin Sq 5000 Unit/0.5ml) 5,000 unit Q12H SQ 05/12/17 06:00 06/11/17 05:59 05/18/17 05:36 5,000 UNIT Atorvastatin Calcium (Lipitor Tab) 40 mg QAM PO 05/12/17 09:00 06/11/17 08:59 05/18/17 08:12 40 MG Cyanocobalamin (Vitamin B-12 Tab) 1,000 mcg DAILY PO 05/12/17 09:00 06/11/17 08:59 05/18/17 08:12 1,000 MCG Folic Acid (Folvite Tab) 1 mg QAM PO 05/12/17 09:00 06/11/17 08:59 05/18/17 08:13 1 MG Metoprolol Tartrate (Lopressor Tab) 25 mg BID PO 05/12/17 09:00 06/11/17 08:59 05/18/17 08:13 25 MG Pantoprazole Sodium (Protonix Tab) 40 mg QAM PO 05/12/17 09:00 06/11/17 08:59 05/18/17 08:13 40 MG Tamsulosin HCl (Flomax Cap) 0.4 mg DAILY PO 05/12/17 09:00 06/11/17 08:59 05/18/17 08:13 0.4 MG Glucose (Glucose 40% Gel) 15-30 GRAMS 15 GRAMS... UD PRN PO 05/11/17 23:15 06/10/17 23:14 Glucose (Glucose Chew Tab) 4-8 Tablets 4 Tabl... UD PRN PO 05/11/17 23:15 06/10/17 23:14 Dextrose (Dextrose 50% 50ML Syringe) 25-50ML OF 50% DW IV FOR... UD PRN IV 05/11/17 23:15 06/10/17 23:14 Glucagon (Glucagon Inj) 1 mg UD PRN SQ 05/11/17 23:15 06/10/17 23:14 Aspirin (Ecotrin Tab) 81 mg DAILY PO 05/13/17 09:00 06/12/17 08:59 05/18/17 08:12 81 MG Clopidogrel Bisulfate (plAVix TAB) 75 mg QAM PO 05/13/17 09:00 06/12/17 08:59 05/18/17 08:12 75 MG Enteral Nutritional Formula (Boost Glucose Control) 1 can BIDM PO 05/12/17 17:00 06/11/17 16:59 05/18/17 08:11 1 CAN Methenamine Hippurate (Urex Tab) 1 gm DAILY PO 05/13/17 09:00 06/12/17 08:59 05/18/17 08:13 1 GM Magnesium Oxide (Mag-Ox Tab) 400 mg BID PO 05/14/17 21:00 06/13/17 08:59 05/18/17 08:13 400 MG Daptomycin 375 mg/ Syringe 7.5 ml @ 3.75 mls/ min Q2D@1600 IV 05/14/17 16:00 06/25/17 15:59 05/16/17 16:00 3.75 MLS/MIN Piperacillin Sod/ Tazobactam Sod (Consult) 1 ea UD PRN N/A 05/14/17 14:45 06/13/17 14:44 Caspofungin 50 mg/ Sodium Chloride 260 ml @ 250 mls/hr Q24H IV 05/17/17 14:00 05/23/17 13:59 05/17/17 14:43 250 MLS/HR Insulin Glargine (Lantus Solostar Pen) 8 units HS SC 05/17/17 21:00 05/23/17 20:59 05/17/17 21:02 8 UNITS Insulin Aspart (novoLOG ASPART) 120 SLIDING SCALE ... ACHS SC 05/17/17 11:00 06/16/17 10:59 05/18/17 08:17 14 UNITS Piperacillin Sod/ Tazobactam Sod 3.375 gm/Dextrose 115 ml @ 28.75 mls/ hr Q8H IV 05/17/17 18:00 06/25/17 17:59 05/18/17 10:35 28.75 MLS/HR Impression (1) ATN (acute tubular necrosis) (2) Acute renal insufficiency (3) Hydronephrosis (4) Recurrent UTI (5) Hypertension (6) Urinary tract infection Chava Patel is a frail 67-year-old male with DM II, hypertension, CAD, chronic systolic CHF, neurogenic bladder, and multiple recent hospital admissions. This includes recent treatment for septic shock due to MSSA. Chava has acute renal failure consistent with ATN. Granular cast noted on urine microscopy. Has persistent bilateral hydronephrosis. He has had recurrent UTI and may require additional intervention for decompression of the urinary system. Urology following. Baseline creatinine has been 0.8 mg/dL. Urine microscopy revealed granular casts. Renal US revealed bilateral hydronephrosis. Lisinopril, HCTZ and metformin have been held. Creatinine peaked to 4.1, now slowly improving last creatinine was 2.0, electrolyte acceptable. Has decent urine output, continues to be net negative. He was also found to have sacral osteomyelitis, wound culture growing Pseudomonas. Has MSSA and fungal urosepsis and currently on caspofungin, daptomycin and Zosyn. Volume status appropriate. TTE notable for reduced LV systolic function (35-40% ) with global and severe inferior wall hypokinesis, grade 1 diastolic dysfunction with mild dilation of the LV. Moderate MR noted. Recommendations --renal function continues to improve, creatinine was 2.0, electrolyte, volume status and blood pressure acceptable. Check renal panel in a.m. -- Maintain even fluid balance, encouraged pt to drink more as he has been persistently net negative -- Document I/O's -- continue to Hold lisinopril, HCTZ and metformin -- Encourage nutrition
--- NOTE | 2017-05-18 12:15 | Psychiatric Progress Notes ---
Psychiatric Progress Note Date of Service May 18, 2017. Notes 67 y/o male with a complex medical history notable for BPH with obstructive uropathy, UTIs with septic shock, neurogenic bladder with hydronephrosis, CAD with NSTEMI in setting of septic shock, ischemic CM with EF 35%, chronic systolic CHF, severe protein calorie malnutrition, MSSA bacteremia and elbow abscess, DMII, anemia, here with MACY, sepsis, and UTI/pyelonephritis, now also with sacral decubitus with underlying abscess and coccyx osteomyelitis. Psychiatry was consulted for depression and failure to thrive, and he was seen by Dr. Mahoney on 05/14/2017. He does not meet criteria for psychiatric diagnosis and there were no specific psychiatric recommendations. Today, I am seeing him in follow-up, as he reportedly made statements to his case monitor about going home to get a gun, as he wanted to be able to leave the hospital and was told he was not medically stable to do so. According to case management notes, on 05/15/2017 they met with him to discuss discharge planning. He stated that if he was going to be in the hospital a long time, he would need to go home at some point to get his mail and take care of some personal things, as he wants to ensure his mortgage is paid so he does not lose his home. He stated that he had no friends or neighbors who could assist him with these tasks, and that he is a very private person. When explaining the recommendations and that if he left, it might be AGAINST MEDICAL ADVICE, he commented "that is why own guns," and said "I would go home and bringing a gun back to the hospital." The psychiatric liaison nurse followed up with him later that day, and he said that he felt he was being told what he was going to do and had no say or choice in his treatment. He said he was worried about his affairs at home, as when he came to the emergency room, he did not expect to be admitted to the hospital. He was able to engage in a discussion of the pros and cons of treatment and the consequences of his decisions about his treatment. On my assessment today, the patient states that he is frustrated with the need for long-term IV antibiotics, although he also states he understands that his infection needs to be treated and wants to receive needed treatment. He continues to state that there is no one who can assist him with care of his house or the tasks he feels need to be accomplished at home. He denies any thoughts or plans to harm anyone else, and is not willing to work on a plan to secure his guns, stating that he does not need to do this and that he would not allow anyone to metal in his affairs. He continues to deny symptoms of depression, and denies that he has ever had thoughts of harming himself. We were joined by his primary attending, Dr. Hill, who reviewed the treatment plan with the patient, including that he will need to complete a course of IV antibiotics, and that this may need to be done at [facility] versus at the patient's home with home health, depending on the specific antibiotics and how he progresses throughout treatment. The patient expressed understanding of this plan. He denies any questions or concerns regarding his mental health. Review of systems: Negative for anxiety, psychosis, kimberly, and depressive symptoms. Thin white male appearing younger than his stated age. Dressed in a hospital gown and adequately groomed. Calm and cooperative. Lying in bed in NAD, eating lunch, with fair eye contact and no abnormal movements. Speech is normal rate, volume, and tone. Mood is "okay," and affect is stable and congruent, with an irritable edge. Thoughts are linear, logical and goal directed. The patient denied suicidal and homicidal ideation. No paranoia, delusions, or hallucinations, and did not appear to be responding to internal stimuli. Cognition was grossly intact. Alert and oriented to person, place and time. Intelligence is consistent with level of education. Insight and and judgment are fair. Diagnosis: No psychiatric diagnosis Recommendations: 1. The patient is denying thoughts, plans, or intent to harm anyone, although he admits to making provocative statements to the case monitor last week in the context of frustration about his course of treatment. He will not allow involvement of the third alliance party to secure his guns at home, stating that he does not feel this is necessary and that there is no one he would trust to manage his affairs. He seems easily frustrated and overwhelmed by the unknowns in his treatment, and may benefit from clear and consistent communication about the treatment plan moving forward. I have not no further psychiatric recommendations, and we will sign off.
--- NOTE | 2017-05-18 13:50 | Hospitalist Progress Note ---
Hospitalist Progress Note Date of Service May 18, 2017. Subjective Pt evaluation today including: conversation w/ patient, physical exam, chart review, lab review, conversation w/ call center support consultant (spoke to Dr. Wood), review of inpatient medication list Pain: None, sacral pain if laying on back PO Intake: Tolerating PO diet Voiding: hallman catheter in place Patient reports feeling well. He denies any pain at his sacrum as long as he is offloading, but does have soreness if he applies any pressure to the area. He otherwise denies any complaints. The patient denies fevers, chills, sweats, chest pain, palpitations, claudication, cough, wheezing, shortness of breath, nausea, vomiting, abdominal pain, dysuria, hematuria, urinary retention, paralysis, weakness, numbness and tingling. Additional Comments: See HPI for pertinent positives and negatives. All other systems reviewed and negative. Objective Vital Signs Date Time Temp Pulse Resp B/P (MAP) Pulse Ox O2 Delivery O2 Flow Rate FiO2 05/18/17 08:05 36.5 94 18 159/71 (100) 97 Room Air 05/18/17 08:00 Room Air 05/18/17 00:00 Room Air 05/18/17 00:00 36.6 81 20 129/67 (87) 99 Room Air 05/17/17 20:55 93 126/71 (89) 05/17/17 17:25 Room Air 05/17/17 15:14 36.6 92 18 84/49 (61) 98 Room Air Physical Exam Notes: General appearance: +Thin. No apparent distress Head: Normocephalic, atraumatic Eyes: Normal inspection, PERRL, EOMI ENT: Normal ENT inspection, hearing grossly normal, pharynx normal Neck: Supple, no JVD, trachea midline Respiratory/Chest: Lungs clear to auscultation, normal breath sounds, no respiratory distress Cardiovascular: Regular rate & rhythm, no gallop, no murmur Abdomen/GI: Normal bowel sounds, non-tender, soft Extremities/Musculoskeletal: Normal inspection, no calf tenderness, no pedal edema Neurological/Psych: Alert, normal mood/affect, oriented x 3 Skin: +Wound at coccyx dressed. Normal color, warm/dry, no rash Laboratory Results Last 24 Hours Test 05/17/17 15:58 05/17/17 20:03 05/18/17 06:41 05/18/17 07:03 Bedside Glucose 266 mg/dl 258 mg/dl 272 mg/dl White Blood Count 7.32 K/uL Red Blood Count 3.46 M/uL Hemoglobin 10.1 g/dL Hematocrit 31.7 % Mean Corpuscular Volume 91.6 fL Mean Corpuscular Hemoglobin 29.2 pg Mean Corpuscular Hemoglobin Concent 31.9 g/dl RDW Standard Deviation 60.0 fL RDW Coefficient of Variation 18.0 % Platelet Count 388 K/uL Mean Platelet Volume 9.6 fL Sodium Level 138 mmol/L Potassium Level 4.4 mmol/L Chloride Level 100 mmol/L Carbon Dioxide Level 29 mmol/L Anion Gap 9.0 mmol/L Blood Urea Nitrogen 42 mg/dl Creatinine 2.05 mg/dl Est Creatinine Clear Calc Drug Dose 28.2 ml/min Estimated GFR () 37.2 Estimated GFR (Non- 32.1 BUN/Creatinine Ratio 20.4 Random Glucose 257 mg/dl Calcium Level 8.5 mg/dl Magnesium Level 1.5 mg/dl Test 05/18/17 11:14 Bedside Glucose 286 mg/dl Assessment and Plan 67 y/o male with a history of DM II, systolic CHF, BPH with obstructive uropathy , chronic Hallman, severe protein-calorie malnutrition, chronic lower extremity ulcers, myeloproliferate disorder and recent NSTEMI February 2017 who presents with weakness per home health nurse. Acute renal failure--stable -Admit to med/surg -Baseline creatinine had been 0.8, creatinine on admission was 3.69 -Creatinine stable at 2.05 on 05/18 -UO 2700, net balance -525. Encouraged pt to drink more to keep fluid balance equal -Recently started on HCTZ and lisinopril within last few months. Will continue to hold these meds as well as metformin -D/C IVF -Nephrology consulted, appreciate recs: Maintain even fluid balance, encouraged pt to drink more as he has been persistently net negative. Document I/O's. Continue to Hold lisinopril, HCTZ and metformin. Encourage nutrition -Renal ultrasound with mild/moderate bilateral renal hydronephrosis and possible pyelonephritis -Urine creatinine and urine sodium WNL -CT a/p shows interval improvement of hydronephrosis, no jose daniel hydro seen. Interval improvement of bilateral perinephric edema. Bladder wall thickening persists consistent w/cystitis and b/l pyelo. Interval osteomyelitis of coccyx tip with small surrounding 1.4 cm abscess. Fracture through tip of coccyx. Suggested thickening of distal descending colon, prox sigmoid colon, and rectum. Sepsis secondary to UTI and pyelonephritis due to chronic indwelling Hallman catheter--improving -Leukocytosis remains stable, WNL -UA positive for yeast -Urine culture positive for non-donis yeast. -Blood cultures negative, final -Infectious disease consulted, appreciate recs: Spoke with Dr. Wood. Pt will need caspofungin x 14 days, and Zosyn for at least 6 weeks. Can d/c dapto -Continue caspofungin 50 mg IV qd. Day #7 Coccyx osteomyelitis w/surround abscess and fracture at coccyx tip--stable -Consult general surgery, appreciate recs: S/p I&D of abscess on 05/14. AVSS, tolerating diet. Daily dressing changes per wound care. Will sign off -Consult wound care provider, appreciate recs: no debridement, s/p I&D -Wound care with pseudomonas -D/C daptomycin -Continue Zosyn IV. Day #5. Will need at least 6 weeks for osteomyelitis BPH with bladder outlet obstruction, chronic Hallman--ongoing -Urology consulted, appreciate recs: Beatrice improved on CT and creatinine improving. Urine output improved. No surgical intervention/stents at this time. Will sign off. F/u with Dr. Marrero in 2 weeks -Change indwelling Hallman 05/12 due to UTI POA, then change q month per urology -Continue Flomax 0.4 mg PO hs Hypomagnesemia--ongoing -Magnesium 1.5 on 05/18. Denies V/D -Mag sulfate 1 gm IV x 1 -Continue mag oxide to 400 mg PO BID -Continue to monitor Chronic systolic CHF--stable, no acute exacerbation -IVF d/c'd -Continue Lopressor 25 mg PO BID -Lisinopril and HCTZ held -Repeat echo without any significant changes. EF still 35-40%. Grade 1 diastolic dysfunction. Global hypokinesis with severe hypokinesis of basal inferior wall. CAD, h/o NSTEMI--stable, asymptomatic. EKG no ischemic changes. Trop negative -Resume ASA, Plavix. No procedures at this time -Continue atorvastatin 40 mg PO qd DM II--last HgbA1c checked 03/03/17 was 8.6 -Hold metformin -Insulin sliding scale -Check BSGs q ac and qhs Myeloproliferative disease--stable -RBC, Hgb counts actually improved from February Chronic LE ulcers, pressure ulcers on left heel and sacrum POA -Wound care nurse consulted -Wound care provider consulted as above Severe protein calorie malnutrition -Nutrition consulted, continue Boost -GI consulted, appreciate recs: Pt agreeable to EGD/colonoscopy but wants to hold off for now due to pain/wound at coccyx. Can f/u outpt for scopes. Will sign off -Psych consulted to assess due to h/o OCD and possible underlying depression that may be contributing to failure to thrive. No treatment recommendations at this time. Possible OCD. Pt reassessed today as pt had made comment about bringing guns to the hospital, currently denies any thoughts of harming himself or others. DVT prophylaxis -Heparin 5000 units SC q12h Code Status -Level I, FULL RESUSCITATION STATUS Dispo -From home, PT recommends rehab -Case management following -Will need PICC for prolonged abx
[2017-05-18] MEDS: CASPOFUNGIN INJ 50 MG in SODIUM CHLORIDE 0.9% 250ML 250 ML IV SCH (14:07)
--- NOTE | 2017-05-18 14:52 | Infectious Disease Progress Nt ---
Progress Note Date of Service May 18, 2017. Subjective Pt evaluation today including: conversation w/ patient, physical exam, chart review, lab review, review of studies, conversation w/ industrial methods consultant, review of inpatient medication list Patient offering no new complaints today. Pain controlled. Remains afebrile appears to be tolerating antibiotics without apparent difficulty. All Other Systems: Reviewed and Negative Medications Current Inpatient Medications Medications (Trade) Dose Ordered Sig/Nilda Route Start Time Stop Time Status Last Admin Dose Admin Acetaminophen (Tylenol Tab) 650 mg Q4H PRN PO 05/11/17 21:00 06/10/17 20:59 05/14/17 14:30 650 MG Polyethylene (Miralax Powder Packet) 17 gm DAILY PRN PO 05/11/17 21:00 06/10/17 20:59 Ondansetron HCl (Zofran Inj) 4 mg Q6H PRN IV 05/11/17 21:00 06/10/17 20:59 Heparin Sodium (Porcine) (Heparin Sq 5000 Unit/0.5ml) 5,000 unit Q12H SQ 05/12/17 06:00 06/11/17 05:59 05/18/17 05:36 5,000 UNIT Atorvastatin Calcium (Lipitor Tab) 40 mg QAM PO 05/12/17 09:00 06/11/17 08:59 05/18/17 08:12 40 MG Cyanocobalamin (Vitamin B-12 Tab) 1,000 mcg DAILY PO 05/12/17 09:00 06/11/17 08:59 05/18/17 08:12 1,000 MCG Folic Acid (Folvite Tab) 1 mg QAM PO 05/12/17 09:00 06/11/17 08:59 05/18/17 08:13 1 MG Metoprolol Tartrate (Lopressor Tab) 25 mg BID PO 05/12/17 09:00 06/11/17 08:59 05/18/17 08:13 25 MG Pantoprazole Sodium (Protonix Tab) 40 mg QAM PO 05/12/17 09:00 06/11/17 08:59 05/18/17 08:13 40 MG Tamsulosin HCl (Flomax Cap) 0.4 mg DAILY PO 05/12/17 09:00 06/11/17 08:59 05/18/17 08:13 0.4 MG Glucose (Glucose 40% Gel) 15-30 GRAMS 15 GRAMS... UD PRN PO 05/11/17 23:15 06/10/17 23:14 Glucose (Glucose Chew Tab) 4-8 Tablets 4 Tabl... UD PRN PO 05/11/17 23:15 06/10/17 23:14 Dextrose (Dextrose 50% 50ML Syringe) 25-50ML OF 50% DW IV FOR... UD PRN IV 05/11/17 23:15 06/10/17 23:14 Glucagon (Glucagon Inj) 1 mg UD PRN SQ 05/11/17 23:15 06/10/17 23:14 Aspirin (Ecotrin Tab) 81 mg DAILY PO 05/13/17 09:00 06/12/17 08:59 05/18/17 08:12 81 MG Clopidogrel Bisulfate (plAVix TAB) 75 mg QAM PO 05/13/17 09:00 06/12/17 08:59 05/18/17 08:12 75 MG Enteral Nutritional Formula (Boost Glucose Control) 1 can BIDM PO 05/12/17 17:00 06/11/17 16:59 05/18/17 08:11 1 CAN Methenamine Hippurate (Urex Tab) 1 gm DAILY PO 05/13/17 09:00 06/12/17 08:59 05/18/17 08:13 1 GM Magnesium Oxide (Mag-Ox Tab) 400 mg BID PO 05/14/17 21:00 06/13/17 08:59 05/18/17 08:13 400 MG Piperacillin Sod/ Tazobactam Sod (Consult) 1 ea UD PRN N/A 05/14/17 14:45 06/13/17 14:44 Caspofungin 50 mg/ Sodium Chloride 260 ml @ 250 mls/hr Q24H IV 05/17/17 14:00 05/23/17 13:59 05/18/17 14:07 250 MLS/HR Insulin Glargine (Lantus Solostar Pen) 8 units HS SC 05/17/17 21:00 05/23/17 20:59 05/17/17 21:02 8 UNITS Insulin Aspart (novoLOG ASPART) 120 SLIDING SCALE ... ACHS SC 05/17/17 11:00 06/16/17 10:59 05/18/17 12:40 13 UNITS Piperacillin Sod/ Tazobactam Sod 3.375 gm/Dextrose 115 ml @ 28.75 mls/ hr Q8H IV 05/17/17 18:00 06/25/17 17:59 05/18/17 10:35 28.75 MLS/HR Objective Vital Signs Date Time Temp Pulse Resp B/P (MAP) Pulse Ox O2 Delivery O2 Flow Rate FiO2 05/18/17 08:05 36.5 94 18 159/71 (100) 97 Room Air 05/18/17 08:00 Room Air 05/18/17 00:00 Room Air 05/18/17 00:00 36.6 81 20 129/67 (87) 99 Room Air 05/17/17 20:55 93 126/71 (89) 05/17/17 17:25 Room Air 05/17/17 15:14 36.6 92 18 84/49 (61) 98 Room Air Physical Exam General Appearance: WD/WN, no apparent distress Eyes: normal inspection, sclerae normal ENT: normal ENT inspection, pharynx normal Neck: supple, no adenopathy, trachea midline Respiratory/Chest: chest non-tender, lungs clear, normal breath sounds, no respiratory distress Cardiovascular: regular rate, rhythm, no gallop, no murmur Abdomen: normal bowel sounds, non tender, soft, no organomegaly Extremities: non-tender, no calf tenderness Neurologic/Psychiatric: alert, oriented x 3 Skin: normal color, no rash, + pertinent finding (sacral dressing intact) Lymphatic: no adenopathy Laboratory Results RUN DATE: 05/16/17 [facility] PAGE 1 RUN TIME: 957 Specimen Inquiry PATIENT: BHUMI GALEAS LOC: [facility] U # : [id number] AGE/SX: 67/M ROOM: [facility] REG : 05/11/[address]: Maryellen Walters MD : [id number] BED: 2 DIS : STATUS: ADM IN TLOC: SPEC #: [id number] BELKIS: 05/14/17 STATUS: COMP REQ #: [id number] RECD: 05/14/[address]: Ralf Camacho MD SOURCE: SKIN ENTR: 05/14/[address]: Nestor Wood MD SPDC: SACRUM Gray Marrero M.D. Inverso, Nicholas A., M.D. Kedem, Roy ., M.D. Nasreen, Fahima MD Pell, Melissa C., MD Saleeby, Hussam G., M.D. Shaw, Mark R., DO Tussey, Natalie B., MD ORDERED: SURF [facility] COMMENTS: Comments to Technology Recruiter collected by Dr. Camacho Specimen Comment sacral abscess Has Specimen Been Obtained/Collected? Y Procedure Result Verified Site GRAM STAIN Final 05/15/17-075 RESULT MODERATE WBCs SEEN NO ORGANISMS SEEN SURFACE WOUND CULTURE Final 05/16/17-957 Organism 1 PSEUDOMONAS AERUGINOSA QUANITY FEW SENS SENSITIVITY TO FOLLOW +MIXWOUND PLUS LOW COUNTS OF PROBABLE SKIN SATINDER 1. PSEUDOMONAS AERUGINOSA Target Route Dose RX AB Cost M.I.C. IQ ------ ----- ------ -- ------ -------- - ------ CEFTAZIDIME I 16 CEFEPIME S 8 IMIPENEM R >8 AZTREONAM S <=4 GENTAMICIN S <=4 TOBRAMYCIN S <=4 AMIKACIN S <=16 CIPROFLOXACIN I 2 LEVOFLOXACIN I 4 PIP/TAZO S <=16 S = SENSITIVE I = INTERMEDIATE R = RESISTANT END OF REPORT Last 24 Hours Test 05/17/17 15:58 05/17/17 20:03 05/18/17 06:41 05/18/17 07:03 Bedside Glucose 266 mg/dl 258 mg/dl 272 mg/dl White Blood Count 7.32 K/uL Red Blood Count 3.46 M/uL Hemoglobin 10.1 g/dL Hematocrit 31.7 % Mean Corpuscular Volume 91.6 fL Mean Corpuscular Hemoglobin 29.2 pg Mean Corpuscular Hemoglobin Concent 31.9 g/dl RDW Standard Deviation 60.0 fL RDW Coefficient of Variation 18.0 % Platelet Count 388 K/uL Mean Platelet Volume 9.6 fL Sodium Level 138 mmol/L Potassium Level 4.4 mmol/L Chloride Level 100 mmol/L Carbon Dioxide Level 29 mmol/L Anion Gap 9.0 mmol/L Blood Urea Nitrogen 42 mg/dl Creatinine 2.05 mg/dl Est Creatinine Clear Calc Drug Dose 28.2 ml/min Estimated GFR () 37.2 Estimated GFR (Non- 32.1 BUN/Creatinine Ratio 20.4 Random Glucose 257 mg/dl Calcium Level 8.5 mg/dl Magnesium Level 1.5 mg/dl Test 05/18/17 11:14 Bedside Glucose 286 mg/dl Assessment and Plan 67-year-old male with recent admission for urosepsis with MSSA, now presents with recurrence sepsis with urinalysis showing budding yeast and ultrasound raising possibility of fungal infection involving kidneys. Began on caspofungin for potential resistant yeast infection. CT scan showed evidence of sacral osteomyelitis and abscess collection, and patient now status post drainage of abscess. Operative cultures with Pseudomonas. Will continue Zosyn, likely 6 weeks. Continue caspofungin to complete 14 days Rx. Will follow.
[2017-05-18 15:37] VITALS: BP 99/53; PULSE 89; TEMP 36.6; O2SAT 97
[2017-05-18] MEDS: INSULIN GLARGINE SOLOSTAR 100 UNITS/ML 3 ML PEN SC SCH (20:36)
[2017-05-18 20:42] VITALS: BP 114/66; PULSE 103
[2017-05-18 23:15] VITALS: BP 128/64; PULSE 83; TEMP 36.8; O2SAT 96
[2017-05-19] MEDS: PIPERACILL/TAZOBAC IV 3.375 GM in DEXTROSE 5% 100ML IV SCH ×3 (02:07→17:37)
[2017-05-19] MEDS: HEPARIN SOD 5000 UNIT/0.5 ML CARP SQ SCH ×2 (05:49→17:41)
[2017-05-19 07:27] LABS: HEMATOCRIT 32.2 % (42-52); MEAN CORPUSCULAR HEMOGLOBIN 29.4 pg (25-34); MEAN PLATELET VOLUME 9.3 fL (7.4-10.4); PLATELET COUNT 395 K/uL (130-400); WHITE BLOOD COUNT 7.71 K/uL (4.8-10.8)
[2017-05-19 07:34] VITALS: BP 104/58; PULSE 93; TEMP 36.2; O2SAT 95
[2017-05-19 07:53] LABS: BUN/CREATININE RATIO 24.7 (10-20); CALCIUM 8.7 mg/dl (8.5-10.1); CREATININE 1.84 mg/dl (0.60-1.40); MAGNESIUM 1.7 mg/dl (1.8-2.4); POTASSIUM 3.8 mmol/L (3.5-5.1)
[2017-05-19] MEDS: BOOST GLUCOSE CONTROL PO SCH ×2 (08:04→17:36)
[2017-05-19] MEDS: METHENAMINE HIPPURATE 1 GM TAB PO SCH (08:05)
[2017-05-19] MEDS: ASPIRIN 81 MG ECTAB PO SCH (08:05)
[2017-05-19] MEDS: CYANOCOBALAMIN 500 MCG TAB (VIT B-12) PO SCH (08:05)
[2017-05-19] MEDS: METOPROLOL TARTRATE 25 MG TAB PO SCH ×2 (08:05→20:26)
[2017-05-19] MEDS: ATORVASTATIN 40 MG TAB PO SCH (08:05)
[2017-05-19] MEDS: CLOPIDOGREL BISULFATE 75 MG TAB PO SCH (08:05)
[2017-05-19] MEDS: PANTOprazole SOD 40 MG TAB PO SCH (08:05)
[2017-05-19] MEDS: TAMSULOSIN HCL 0.4 MG CAP PO SCH (08:05)
[2017-05-19] MEDS: MAGNESIUM OXIDE 400 MG TAB PO SCH ×2 (08:05→20:26)
[2017-05-19] MEDS: INSULIN ASPART 100 UNITS/ML 3 ML PEN SC SCH ×4 (08:10→20:28)
--- NOTE | 2017-05-19 10:17 | Nephrology Progress Note ---
Nephrology Progress Note Date of Service May 19, 2017. Chief Complaint Acute kidney injury Subjective Mr. Patel was seen & examined in his hospital room this morning. He reports that he was able to ambulate a short distance in OT yesterday. He voiced no new medical concerns. Review of Systems Constitutional: No fever Cardiovascular: No chest pain Respiratory: No dyspnea at rest Abdomen: No pain, No nausea, No vomiting Extremities: No leg edema A complete review of systems was performed. Pertinent positives are noted above. All other systems are negative. Vital Signs Last 8 Hrs Date Time Temp Pulse Resp B/P (MAP) Pulse Ox O2 Delivery O2 Flow Rate FiO2 05/19/17 08:00 Room Air 05/19/17 07:34 36.2 93 18 104/58 (73) 95 Room Air Last Recorded Weight Weight (Kilograms): 60.000 Physical Exam General Appearance: no apparent distress Head: atraumatic Eyes: PERRL, EOMI Neck: no adenopathy Respiratory/Chest: lungs clear Cardiovascular: regular rate, rhythm Abdomen/GI: normal bowel sounds, non tender, soft Extremities/Musculoskelatal: no calf tenderness, no pedal edema Neurologic/Psych: alert, oriented x 3 Family History No pertinent family history Social History Smokeless Tobacco Use: No Alcohol Use: occasionally Drug Use: none Marital Status: single Occupation: employed Laboratory Results Past 24 Hours 05/19/17 06:59 05/19/17 06:59 Test 05/18/17 11:14 05/18/17 16:36 05/18/17 20:25 05/19/17 06:59 Bedside Glucose 286 mg/dl (70-99) 206 mg/dl (70-99) 297 mg/dl (70-99) Red Blood Count 3.50 M/uL (4.7-6.1) Mean Corpuscular Volume 92.0 fL (80-100) Mean Corpuscular Hemoglobin 29.4 pg (25-34) Mean Corpuscular Hemoglobin Concent 32.0 g/dl (32-36) RDW Standard Deviation 60.1 fL (36.4-46.3) RDW Coefficient of Variation 17.8 % (11.5-14.5) Mean Platelet Volume 9.3 fL (7.4-10.4) Anion Gap 8.0 mmol/L (3-11) Est Creatinine Clear Calc Drug Dose 32.2 ml/min Estimated GFR () 42.4 Estimated GFR (Non- 36.6 BUN/Creatinine Ratio 24.7 (10-20) Calcium Level 8.7 mg/dl (8.5-10.1) Magnesium Level 1.7 mg/dl (1.8-2.4) Test 05/19/17 07:27 Bedside Glucose 267 mg/dl (70-99) Allergies Coded Allergies: No Known Allergies (Unverified , 02/27/17) Medications Current Inpatient Medications Medications (Trade) Dose Ordered Sig/Nilda Route Start Time Stop Time Status Last Admin Dose Admin Acetaminophen (Tylenol Tab) 650 mg Q4H PRN PO 05/11/17 21:00 06/10/17 20:59 05/14/17 14:30 650 MG Polyethylene (Miralax Powder Packet) 17 gm DAILY PRN PO 05/11/17 21:00 06/10/17 20:59 Ondansetron HCl (Zofran Inj) 4 mg Q6H PRN IV 05/11/17 21:00 06/10/17 20:59 Heparin Sodium (Porcine) (Heparin Sq 5000 Unit/0.5ml) 5,000 unit Q12H SQ 05/12/17 06:00 06/11/17 05:59 05/19/17 05:49 5,000 UNIT Atorvastatin Calcium (Lipitor Tab) 40 mg QAM PO 05/12/17 09:00 06/11/17 08:59 05/19/17 08:05 40 MG Cyanocobalamin (Vitamin B-12 Tab) 1,000 mcg DAILY PO 05/12/17 09:00 06/11/17 08:59 05/19/17 08:05 1,000 MCG Folic Acid (Folvite Tab) 1 mg QAM PO 05/12/17 09:00 06/11/17 08:59 05/19/17 08:05 1 MG Metoprolol Tartrate (Lopressor Tab) 25 mg BID PO 05/12/17 09:00 06/11/17 08:59 05/19/17 08:05 25 MG Pantoprazole Sodium (Protonix Tab) 40 mg QAM PO 05/12/17 09:00 06/11/17 08:59 05/19/17 08:05 40 MG Tamsulosin HCl (Flomax Cap) 0.4 mg DAILY PO 05/12/17 09:00 06/11/17 08:59 05/19/17 08:05 0.4 MG Glucose (Glucose 40% Gel) 15-30 GRAMS 15 GRAMS... UD PRN PO 05/11/17 23:15 06/10/17 23:14 Glucose (Glucose Chew Tab) 4-8 Tablets 4 Tabl... UD PRN PO 05/11/17 23:15 06/10/17 23:14 Dextrose (Dextrose 50% 50ML Syringe) 25-50ML OF 50% DW IV FOR... UD PRN IV 05/11/17 23:15 06/10/17 23:14 Glucagon (Glucagon Inj) 1 mg UD PRN SQ 05/11/17 23:15 06/10/17 23:14 Aspirin (Ecotrin Tab) 81 mg DAILY PO 05/13/17 09:00 06/12/17 08:59 05/19/17 08:05 81 MG Clopidogrel Bisulfate (plAVix TAB) 75 mg QAM PO 05/13/17 09:00 06/12/17 08:59 05/19/17 08:05 75 MG Enteral Nutritional Formula (Boost Glucose Control) 1 can BIDM PO 05/12/17 17:00 06/11/17 16:59 05/19/17 08:04 1 CAN Methenamine Hippurate (Urex Tab) 1 gm DAILY PO 05/13/17 09:00 06/12/17 08:59 05/19/17 08:05 1 GM Magnesium Oxide (Mag-Ox Tab) 400 mg BID PO 05/14/17 21:00 06/13/17 08:59 05/19/17 08:05 400 MG Piperacillin Sod/ Tazobactam Sod (Consult) 1 ea UD PRN N/A 05/14/17 14:45 06/13/17 14:44 Caspofungin 50 mg/ Sodium Chloride 260 ml @ 250 mls/hr Q24H IV 05/17/17 14:00 05/23/17 13:59 05/18/17 14:07 250 MLS/HR Insulin Glargine (Lantus Solostar Pen) 8 units HS SC 05/17/17 21:00 05/23/17 20:59 05/18/17 20:36 8 UNITS Insulin Aspart (novoLOG ASPART) 120 SLIDING SCALE ... ACHS SC 05/17/17 11:00 06/16/17 10:59 05/19/17 08:10 15 UNITS Piperacillin Sod/ Tazobactam Sod 3.375 gm/Dextrose 115 ml @ 28.75 mls/ hr Q8H IV 05/17/17 18:00 06/25/17 17:59 05/19/17 09:46 28.75 MLS/HR Impression (1) ATN (acute tubular necrosis) (2) Acute renal insufficiency (3) Hydronephrosis (4) Recurrent UTI (5) Hypertension (6) Urinary tract infection Chava Patel is a frail 67-year-old male with DM II, hypertension, CAD, chronic systolic CHF, neurogenic bladder, and multiple recent hospital admissions. This includes recent treatment for septic shock due to MSSA. Chava has acute renal failure consistent with ATN. Granular cast noted on urine microscopy. Has persistent bilateral hydronephrosis. He has had recurrent UTI and may require additional intervention for decompression of the urinary system. Urology following. Baseline creatinine has been 0.8 mg/dL. Urine microscopy revealed granular casts. Renal US revealed bilateral hydronephrosis. Lisinopril, HCTZ and metformin have been held. Creatinine peaked to 4.1, now slowly improving last creatinine was 2.0, electrolyte acceptable. Has decent urine output, continues to be net negative. He was also found to have sacral osteomyelitis, wound culture growing Pseudomonas. Has MSSA and fungal urosepsis and currently on caspofungin, daptomycin and Zosyn. Volume status appropriate. TTE notable for reduced LV systolic function (35-40% ) with global and severe inferior wall hypokinesis, grade 1 diastolic dysfunction with mild dilation of the LV. Moderate MR noted. Recommendations -- Blood pressure is well controlled, I&O's are matched. ATN is gradually resolving -- Continue to hold Lisinopril, HCTZ and Metformin -- Baseline creatinine has been 1.0 -- ID note reviewed yesterday: continue IV Zosyn and caspofungin -- No further Nephrology evaluation indicated at this time. Will sign off. Please call if further assistance is needed.
--- NOTE | 2017-05-19 13:26 | Progress Note ---
Subjective Date of Service: May 19, 2017. Subjective Pt evaluation today including: conversation w/ patient, physical exam, chart review, lab review, review of studies, review of inpatient medication list Pt in no discernible distress Resting comfortably in bed Agreeable to PICC line at this time No incidents overnight Problem List Medical Problems: (1) ARF (acute renal failure) Status: Acute (2) Dehydration Status: Acute (3) DKA (diabetic ketoacidoses) Status: Acute (4) Generalized weakness Status: Acute (5) Urinary tract infection Status: Acute Review of Systems Constitutional: No fever, No chills, No sweats, No weakness Eyes: No worsening of vision, No eye pain, No redness, No discharge Respiratory: No cough, No sputum, No wheezing, No shortness of breath, No dyspnea on exertion Cardiac: No chest pain, No orthopnea, No PND, No edema Abdomen: No pain, No nausea, No vomiting, No diarrhea, No constipation Musculoskeletal: No joint pain, No muscle pain, No swelling, No calf pain Male : No dysuria, No urinary frequency, No incontinence, No slowing stream Neurologic: No memory loss, No paralysis, No weakness, No numbness/tingling Psychiatric: No depression symptoms, No anhedonism, No anxiety, No insomnia Endo: No fatigue, No excessive thirst Skin: No rash, No itch Objective Vital Signs Date Time Temp Pulse Resp B/P (MAP) Pulse Ox O2 Delivery O2 Flow Rate FiO2 05/19/17 08:00 Room Air 05/19/17 07:34 36.2 93 18 104/58 (73) 95 Room Air 05/19/17 00:00 Room Air 05/18/17 23:15 36.8 83 20 128/64 (85) 96 Room Air 05/18/17 20:42 103 114/66 (82) 05/18/17 16:24 Room Air 05/18/17 15:37 36.6 89 16 99/53 (68) 97 Room Air Physical Exam General Appearance: WD/WN, no apparent distress Eyes: normal inspection, PERRL, EOMI, sclerae normal Neck: supple, no adenopathy, thyroid normal, no JVD Respiratory/Chest: chest non-tender, lungs clear, normal breath sounds, no respiratory distress Cardiovascular: regular rate, rhythm, no edema, no gallop, no JVD Abdomen: normal bowel sounds, non tender, soft, no organomegaly Neurologic/Psychiatric: no motor/sensory deficits, alert, normal mood/affect, oriented x 3 Skin: normal color, warm/dry, no rash Lymphatic: no adenopathy Laboratory Results Last 24 Hours Test 05/18/17 16:36 05/18/17 20:25 05/19/17 06:59 05/19/17 07:27 Bedside Glucose 206 mg/dl 297 mg/dl 267 mg/dl White Blood Count 7.71 K/uL Red Blood Count 3.50 M/uL Hemoglobin 10.3 g/dL Hematocrit 32.2 % Mean Corpuscular Volume 92.0 fL Mean Corpuscular Hemoglobin 29.4 pg Mean Corpuscular Hemoglobin Concent 32.0 g/dl RDW Standard Deviation 60.1 fL RDW Coefficient of Variation 17.8 % Platelet Count 395 K/uL Mean Platelet Volume 9.3 fL Sodium Level 139 mmol/L Potassium Level 3.8 mmol/L Chloride Level 101 mmol/L Carbon Dioxide Level 30 mmol/L Anion Gap 8.0 mmol/L Blood Urea Nitrogen 46 mg/dl Creatinine 1.84 mg/dl Est Creatinine Clear Calc Drug Dose 32.2 ml/min Estimated GFR () 42.4 Estimated GFR (Non- 36.6 BUN/Creatinine Ratio 24.7 Random Glucose 248 mg/dl Calcium Level 8.7 mg/dl Magnesium Level 1.7 mg/dl Test 05/19/17 11:20 Bedside Glucose 275 mg/dl Assessment and Plan 67 y/o male with a history of DM II, systolic CHF, BPH with obstructive uropathy , chronic Miller, severe protein-calorie malnutrition, chronic lower extremity ulcers, myeloproliferate disorder and recent NSTEMI February 2017 who presents with weakness per home health nurse. Acute renal failure--resolving, likely from ATN, Cr 1.8 from 2.0 -Admit to med/surg -Baseline creatinine had been 0.8, creatinine on admission was 3.69 -Recently started on HCTZ and lisinopril within last few months. Will continue to hold these meds as well as metformin -Nephrology consulted, appreciate recs: Maintain even fluid balance, encouraged pt to drink more as he has been persistently net negative. Document I/O's. Continue to Hold lisinopril, HCTZ and metformin. Encourage nutrition -Renal ultrasound with mild/moderate bilateral renal hydronephrosis and possible pyelonephritis -Urine creatinine and urine sodium WNL -CT a/p shows interval improvement of hydronephrosis, no jose daniel hydro seen. Interval improvement of bilateral perinephric edema. Bladder wall thickening persists consistent w/cystitis and b/l pyelo. Interval osteomyelitis of coccyx tip with small surrounding 1.4 cm abscess. Fracture through tip of coccyx. Suggested thickening of distal descending colon, prox sigmoid colon, and rectum. Sepsis secondary to UTI and pyelonephritis due to chronic indwelling Miller catheter--improving -Leukocytosis remains stable, WNL -UA positive for yeast -Urine culture positive for non-donis yeast. -Blood cultures negative, final -Infectious disease consulted, appreciate recs: Spoke with Dr. Wood. Pt will need caspofungin x 14 days, and Zosyn for at least 6 weeks. Can d/c dapto -Continue caspofungin 50 mg IV qd. Day # 8 Coccyx osteomyelitis w/surround abscess and fracture at coccyx tip--stable -Consult general surgery, appreciate recs: S/p I&D of abscess on 05/14. AVSS, tolerating diet. Daily dressing changes per wound care. Will sign off -Consult wound care provider, appreciate recs: no debridement, s/p I&D -Wound care with pseudomonas -Continue Zosyn IV. Day # 6. Will need at least 6 weeks for osteomyelitis, agreeable to PICC line, consent obtained BPH with bladder outlet obstruction, chronic Miller--ongoing -Urology consulted, appreciate recs: [place] improved on CT and creatinine improving. Urine output improved. No surgical intervention/stents at this time. Will sign off. F/u with Dr. Marrero in 2 weeks -Change indwelling Miller 05/12 due to UTI POA, then change q month per urology -Continue Flomax 0.4 mg PO hs Hypomagnesemia-- -Magnesium 1.7 on 05/19. Denies V/D -Continue mag oxide to 400 mg PO BID -Continue to monitor Chronic systolic CHF--stable, no acute exacerbation -IVF d/c'd -Continue Lopressor 25 mg PO BID -Lisinopril and HCTZ held -Repeat echo without any significant changes. EF still 35-40%. Grade 1 diastolic dysfunction. Global hypokinesis with severe hypokinesis of basal inferior wall. CAD, h/o NSTEMI--stable, asymptomatic. EKG no ischemic changes. Trop negative -Resume ASA, Plavix. No procedures at this time -Continue atorvastatin 40 mg PO qd DM II--last HgbA1c checked 03/03/17 was 8.6 -Hold metformin -Insulin sliding scale -Check BSGs q ac and qhs Myeloproliferative disease--stable -RBC, Hgb counts actually improved from February Chronic LE ulcers, pressure ulcers on left heel and sacrum POA -Wound care nurse consulted -Wound care provider consulted as above Severe protein calorie malnutrition -Nutrition consulted, continue Boost -GI consulted, appreciate recs: Pt agreeable to EGD/colonoscopy but wants to hold off for now due to pain/wound at coccyx. Can f/u outpt for scopes. Will sign off -Psych consulted to assess due to h/o OCD and possible underlying depression that may be contributing to failure to thrive. No treatment recommendations at this time. Possible OCD. Pt reassessed today as pt had made comment about bringing guns to the hospital, currently denies any thoughts of harming himself or others. DVT prophylaxis -Heparin 5000 units SC q12h Code Status -Level I, FULL RESUSCITATION STATUS Dispo -From home, PT recommends rehab -Case management following Continued [facility] stay due to: multiple IV medications needed Discharge planning: home with home health, uncertain
[2017-05-19] MEDS: CASPOFUNGIN INJ 50 MG in SODIUM CHLORIDE 0.9% 250ML 250 ML IV SCH (13:59)
--- NOTE | 2017-05-19 14:18 | Infectious Disease Progress Nt ---
Progress Note Date of Service May 19, 2017. Subjective Pt evaluation today including: conversation w/ patient, physical exam, chart review, lab review, review of studies, conversation w/ interior design consultant, review of inpatient medication list Patient appears comfortable. Offers no new complaints. remains afebrile. Continues tolerating antibiotics without apparent difficulty. All Other Systems: Reviewed and Negative Medications Current Inpatient Medications Medications (Trade) Dose Ordered Sig/Nilda Route Start Time Stop Time Status Last Admin Dose Admin Acetaminophen (Tylenol Tab) 650 mg Q4H PRN PO 05/11/17 21:00 06/10/17 20:59 05/14/17 14:30 650 MG Polyethylene (Miralax Powder Packet) 17 gm DAILY PRN PO 05/11/17 21:00 06/10/17 20:59 Ondansetron HCl (Zofran Inj) 4 mg Q6H PRN IV 05/11/17 21:00 06/10/17 20:59 Heparin Sodium (Porcine) (Heparin Sq 5000 Unit/0.5ml) 5,000 unit Q12H SQ 05/12/17 06:00 06/11/17 05:59 05/19/17 05:49 5,000 UNIT Atorvastatin Calcium (Lipitor Tab) 40 mg QAM PO 05/12/17 09:00 06/11/17 08:59 05/19/17 08:05 40 MG Cyanocobalamin (Vitamin B-12 Tab) 1,000 mcg DAILY PO 05/12/17 09:00 06/11/17 08:59 05/19/17 08:05 1,000 MCG Folic Acid (Folvite Tab) 1 mg QAM PO 05/12/17 09:00 06/11/17 08:59 05/19/17 08:05 1 MG Metoprolol Tartrate (Lopressor Tab) 25 mg BID PO 05/12/17 09:00 06/11/17 08:59 05/19/17 08:05 25 MG Pantoprazole Sodium (Protonix Tab) 40 mg QAM PO 05/12/17 09:00 06/11/17 08:59 05/19/17 08:05 40 MG Tamsulosin HCl (Flomax Cap) 0.4 mg DAILY PO 05/12/17 09:00 06/11/17 08:59 05/19/17 08:05 0.4 MG Glucose (Glucose 40% Gel) 15-30 GRAMS 15 GRAMS... UD PRN PO 05/11/17 23:15 06/10/17 23:14 Glucose (Glucose Chew Tab) 4-8 Tablets 4 Tabl... UD PRN PO 05/11/17 23:15 06/10/17 23:14 Dextrose (Dextrose 50% 50ML Syringe) 25-50ML OF 50% DW IV FOR... UD PRN IV 05/11/17 23:15 06/10/17 23:14 Glucagon (Glucagon Inj) 1 mg UD PRN SQ 05/11/17 23:15 06/10/17 23:14 Aspirin (Ecotrin Tab) 81 mg DAILY PO 05/13/17 09:00 06/12/17 08:59 05/19/17 08:05 81 MG Clopidogrel Bisulfate (plAVix TAB) 75 mg QAM PO 05/13/17 09:00 06/12/17 08:59 05/19/17 08:05 75 MG Enteral Nutritional Formula (Boost Glucose Control) 1 can BIDM PO 05/12/17 17:00 06/11/17 16:59 05/19/17 08:04 1 CAN Methenamine Hippurate (Urex Tab) 1 gm DAILY PO 05/13/17 09:00 06/12/17 08:59 05/19/17 08:05 1 GM Magnesium Oxide (Mag-Ox Tab) 400 mg BID PO 05/14/17 21:00 06/13/17 08:59 05/19/17 08:05 400 MG Piperacillin Sod/ Tazobactam Sod (Consult) 1 ea UD PRN N/A 05/14/17 14:45 06/13/17 14:44 Caspofungin 50 mg/ Sodium Chloride 260 ml @ 250 mls/hr Q24H IV 05/17/17 14:00 05/23/17 13:59 05/19/17 13:59 250 MLS/HR Insulin Glargine (Lantus Solostar Pen) 8 units HS SC 05/17/17 21:00 05/23/17 20:59 05/18/17 20:36 8 UNITS Insulin Aspart (novoLOG ASPART) 120 SLIDING SCALE ... ACHS SC 05/17/17 11:00 06/16/17 10:59 05/19/17 12:25 11 UNITS Piperacillin Sod/ Tazobactam Sod 3.375 gm/Dextrose 115 ml @ 28.75 mls/ hr Q8H IV 05/17/17 18:00 06/25/17 17:59 05/19/17 09:46 28.75 MLS/HR Objective Vital Signs Date Time Temp Pulse Resp B/P (MAP) Pulse Ox O2 Delivery O2 Flow Rate FiO2 05/19/17 08:00 Room Air 05/19/17 07:34 36.2 93 18 104/58 (73) 95 Room Air 05/19/17 00:00 Room Air 05/18/17 23:15 36.8 83 20 128/64 (85) 96 Room Air 05/18/17 20:42 103 114/66 (82) 05/18/17 16:24 Room Air 05/18/17 15:37 36.6 89 16 99/53 (68) 97 Room Air Physical Exam General Appearance: WD/WN, no apparent distress Eyes: normal inspection, sclerae normal ENT: normal ENT inspection, pharynx normal Neck: supple, no adenopathy, trachea midline Respiratory/Chest: chest non-tender, lungs clear, normal breath sounds, no respiratory distress Cardiovascular: regular rate, rhythm, no gallop, no murmur Abdomen: normal bowel sounds, non tender, soft, no organomegaly Extremities: non-tender, no calf tenderness Neurologic/Psychiatric: alert, oriented x 3 Skin: normal color, no rash Lymphatic: no adenopathy Laboratory Results Last 24 Hours Test 05/18/17 16:36 05/18/17 20:25 05/19/17 06:59 05/19/17 07:27 Bedside Glucose 206 mg/dl 297 mg/dl 267 mg/dl White Blood Count 7.71 K/uL Red Blood Count 3.50 M/uL Hemoglobin 10.3 g/dL Hematocrit 32.2 % Mean Corpuscular Volume 92.0 fL Mean Corpuscular Hemoglobin 29.4 pg Mean Corpuscular Hemoglobin Concent 32.0 g/dl RDW Standard Deviation 60.1 fL RDW Coefficient of Variation 17.8 % Platelet Count 395 K/uL Mean Platelet Volume 9.3 fL Sodium Level 139 mmol/L Potassium Level 3.8 mmol/L Chloride Level 101 mmol/L Carbon Dioxide Level 30 mmol/L Anion Gap 8.0 mmol/L Blood Urea Nitrogen 46 mg/dl Creatinine 1.84 mg/dl Est Creatinine Clear Calc Drug Dose 32.2 ml/min Estimated GFR () 42.4 Estimated GFR (Non- 36.6 BUN/Creatinine Ratio 24.7 Random Glucose 248 mg/dl Calcium Level 8.7 mg/dl Magnesium Level 1.7 mg/dl Test 05/19/17 11:20 Bedside Glucose 275 mg/dl Assessment and Plan 67-year-old male with recent admission for urosepsis with MSSA, now presents with recurrence sepsis with urinalysis showing budding yeast and ultrasound raising possibility of fungal infection involving kidneys. Began on caspofungin for potential resistant yeast infection. CT scan showed evidence of sacral osteomyelitis and abscess collection, and patient now status post drainage of abscess. Operative cultures with Pseudomonas. Will continue Zosyn, likely 6 weeks. Continue caspofungin to complete 14 days Rx. Will follow.
[2017-05-19 16:00] VITALS: BP 139/71; PULSE 84; TEMP 36.7; O2SAT 97
--- NOTE | 2017-05-19 16:48 | DIAGNOSTIC IMAGING REPORT ---
CHEST ONE VIEW PORTABLE CLINICAL HISTORY: 67 years-old Male presenting with PICC PLACEMENT TO LEFT ARM. TECHNIQUE: Portable semiupright AP view of the chest was obtained. COMPARISON: 05/11/2017. FINDINGS: Left upper extremity PICC terminates in the upper SVC. Atherosclerosis of the aortic arch. Cardiac silhouette normal in size. Lungs and pleural spaces clear. Osseous structures normal. Upper abdomen normal. IMPRESSION: 1. Appropriately positioned left upper extremity PICC, which terminates in the upper SVC. No pneumothorax. Electronically signed by: Kj Ruelas M.D. 05/19/2017 4:47 PM Dictated Date/Time: 05/19/2017 4:46 PM
[2017-05-19 20:23] VITALS: BP 114/64; PULSE 97
[2017-05-19] MEDS: INSULIN GLARGINE SOLOSTAR 100 UNITS/ML 3 ML PEN SC SCH (20:29)
[2017-05-19 23:43] VITALS: BP 108/68; PULSE 93; TEMP 36.6; O2SAT 96
[2017-05-20] MEDS: PIPERACILL/TAZOBAC IV 3.375 GM in DEXTROSE 5% 100ML IV SCH ×2 (02:02→10:12)
[2017-05-20] MEDS: HEPARIN SOD 5000 UNIT/0.5 ML CARP SQ SCH (05:39)
[2017-05-20 05:47] LABS: HEMATOCRIT 32.9 % (42-52); MEAN CELL VOLUME 92.7 fL (80-100); MEAN CORPUSCULAR HEMOGLOBIN 28.7 pg (25-34); MEAN PLATELET VOLUME 9.4 fL (7.4-10.4); PLATELET COUNT 437 K/uL (130-400); RED BLOOD COUNT 3.55 M/uL (4.7-6.1); WHITE BLOOD COUNT 8.15 K/uL (4.8-10.8)
[2017-05-20 06:15] LABS: BUN/CREATININE RATIO 34.5 (10-20); CALCIUM 8.5 mg/dl (8.5-10.1); CREATININE 1.65 mg/dl (0.60-1.40); MAGNESIUM 1.7 mg/dl (1.8-2.4); POTASSIUM 4.5 mmol/L (3.5-5.1)
[2017-05-20] MEDS: CLOPIDOGREL BISULFATE 75 MG TAB PO SCH (07:49)
[2017-05-20] MEDS: BOOST GLUCOSE CONTROL PO SCH ×2 (07:49→16:59)
[2017-05-20] MEDS: ATORVASTATIN 40 MG TAB PO SCH (07:49)
[2017-05-20] MEDS: ASPIRIN 81 MG ECTAB PO SCH (07:49)
[2017-05-20] MEDS: TAMSULOSIN HCL 0.4 MG CAP PO SCH (07:50)
[2017-05-20] MEDS: METHENAMINE HIPPURATE 1 GM TAB PO SCH (07:50)
[2017-05-20] MEDS: METOPROLOL TARTRATE 25 MG TAB PO SCH (07:50)
[2017-05-20] MEDS: CYANOCOBALAMIN 500 MCG TAB (VIT B-12) PO SCH (07:50)
[2017-05-20] MEDS: MAGNESIUM OXIDE 400 MG TAB PO SCH (07:51)
[2017-05-20] MEDS: PANTOprazole SOD 40 MG TAB PO SCH (07:51)
[2017-05-20] MEDS: INSULIN ASPART 100 UNITS/ML 3 ML PEN SC SCH ×3 (07:54→17:27)
[2017-05-20 07:58] VITALS: BP 131/67; PULSE 94; TEMP 36.4; O2SAT 96
[2017-05-20] MEDS ORDERED: MAGNESIUM SULFATE 1GM / D5W 1 GM in PREMIXED IN D5W 100 ML IV ONE (09:00)
--- NOTE | 2017-05-20 12:28 | Hospitalist Progress Note ---
Hospitalist Progress Note Date of Service May 20, 2017. Subjective Pt evaluation today including: conversation w/ patient, physical exam, chart review, lab review, review of inpatient medication list Pain: None PO Intake: Tolerating PO diet Voiding: hallman catheter in place The patient reports feeling well. He denies any new complaints. He denies any pain at his sacrum/coccyx while offloading but does have soreness when pressure is applied. The patient denies fevers, chills, sweats, chest pain, palpitations , claudication, cough, wheezing, shortness of breath, nausea, vomiting, abdominal pain, dysuria, hematuria, urinary retention, paralysis, weakness, numbness and tingling. Additional Comments: See HPI for pertinent positives and negatives. All other systems reviewed and negative. Objective Vital Signs Date Time Temp Pulse Resp B/P (MAP) Pulse Ox O2 Delivery O2 Flow Rate FiO2 05/20/17 08:00 Room Air 05/20/17 07:58 36.4 94 18 131/67 (88) 96 Room Air 05/20/17 00:00 Room Air 05/19/17 23:43 36.6 93 18 108/68 (81) 96 Room Air 05/19/17 20:23 97 114/64 (81) 05/19/17 16:00 Room Air 05/19/17 16:00 36.7 84 20 139/71 (93) 97 Room Air Physical Exam Notes: General appearance: +Thin. No apparent distress Head: Normocephalic, atraumatic Eyes: Normal inspection, PERRL, EOMI ENT: Normal ENT inspection, hearing grossly normal, pharynx normal Neck: Supple, no JVD, trachea midline Respiratory/Chest: Lungs clear to auscultation, normal breath sounds, no respiratory distress Cardiovascular: Regular rate & rhythm, no gallop, no murmur Abdomen/GI: Normal bowel sounds, non-tender, soft Extremities/Musculoskeletal: Normal inspection, no calf tenderness, no pedal edema Neurological/Psych: Alert, normal mood/affect, oriented x 3 Skin: +Wound at coccyx dressed. Normal color, warm/dry, no rash Laboratory Results Last 24 Hours Test 05/19/17 16:42 05/19/17 19:26 05/20/17 05:18 05/20/17 07:33 Bedside Glucose 237 mg/dl 219 mg/dl 245 mg/dl White Blood Count 8.15 K/uL Red Blood Count 3.55 M/uL Hemoglobin 10.2 g/dL Hematocrit 32.9 % Mean Corpuscular Volume 92.7 fL Mean Corpuscular Hemoglobin 28.7 pg Mean Corpuscular Hemoglobin Concent 31.0 g/dl RDW Standard Deviation 61.0 fL RDW Coefficient of Variation 17.9 % Platelet Count 437 K/uL Mean Platelet Volume 9.4 fL Sodium Level 137 mmol/L Potassium Level 4.5 mmol/L Chloride Level 103 mmol/L Carbon Dioxide Level 29 mmol/L Anion Gap 5.0 mmol/L Blood Urea Nitrogen 57 mg/dl Creatinine 1.65 mg/dl Est Creatinine Clear Calc Drug Dose 35.9 ml/min Estimated GFR () 48.4 Estimated GFR (Non- 41.7 BUN/Creatinine Ratio 34.5 Random Glucose 246 mg/dl Calcium Level 8.5 mg/dl Magnesium Level 1.7 mg/dl Assessment and Plan 67 y/o male with a history of DM II, systolic CHF, BPH with obstructive uropathy , chronic Hallman, severe protein-calorie malnutrition, chronic lower extremity ulcers, myeloproliferate disorder and recent NSTEMI February 2017 who presents with weakness per home health nurse. Acute renal failure--improving -Admit to med/surg -Baseline creatinine had been 0.8, creatinine on admission was 3.69 -Creatinine continues to improve, down to 1.65 from 1,84 on 05/20 -UO 3800, net balance -2170 through 05/19. Encouraged pt to drink more to keep fluid balance equal -Recently started on HCTZ and lisinopril within last few months. Will continue to hold these meds as well as metformin -D/C IVF -Nephrology consulted, appreciate recs: Maintain even fluid balance, encouraged pt to drink more as he has been persistently net negative. Document I/O's. Continue to Hold lisinopril, HCTZ and metformin. Encourage nutrition. Will sign off. -Renal ultrasound with mild/moderate bilateral renal hydronephrosis and possible pyelonephritis -Urine creatinine and urine sodium WNL -CT a/p shows interval improvement of hydronephrosis, no jose daniel hydro seen. Interval improvement of bilateral perinephric edema. Bladder wall thickening persists consistent w/cystitis and b/l pyelo. Interval osteomyelitis of coccyx tip with small surrounding 1.4 cm abscess. Fracture through tip of coccyx. Suggested thickening of distal descending colon, prox sigmoid colon, and rectum. Sepsis secondary to UTI and pyelonephritis due to chronic indwelling Hallman catheter--improving -Leukocytosis remains stable, WNL -UA positive for yeast -Urine culture positive for non-donis yeast. -Blood cultures negative, final -Infectious disease consulted, appreciate recs: Pt will need caspofungin x 14 days, and Zosyn for at least 6 weeks. Can d/c dapto -Continue caspofungin 50 mg IV qd. 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 AVSS, tolerating diet. Daily dressing changes per wound care. Will sign off -Consult wound care provider, appreciate recs: no debridement, s/p I&D -Wound culture with pseudomonas -D/C daptomycin -Continue Zosyn IV. Day #7. Will need at least 6 weeks for osteomyelitis. PICC in place BPH with bladder outlet obstruction, chronic Hallman--ongoing -Urology consulted, appreciate recs: [place] improved on CT and creatinine improving. Urine output improved. No surgical intervention/stents at this time. Will sign off. F/u with Dr. Marrero in 2 weeks -Change indwelling Hallman 05/12 due to UTI POA, then change q month per urology -Continue Flomax 0.4 mg PO hs Hypomagnesemia--ongoing -Magnesium 1.7 on 05/20 -Mag sulfate 1 gm IV x 1 -Continue mag oxide to 400 mg PO BID -Continue to monitor Chronic systolic CHF--stable, no acute exacerbation -IVF d/c'd -Continue Lopressor 25 mg PO BID -Lisinopril and HCTZ held -Repeat echo without any significant changes. EF still 35-40%. Grade 1 diastolic dysfunction. Global hypokinesis with severe hypokinesis of basal inferior wall. CAD, h/o NSTEMI--stable, asymptomatic. EKG no ischemic changes. Trop negative -Resume ASA, Plavix. No procedures at this time -Continue atorvastatin 40 mg PO qd DM II--last HgbA1c checked 03/03/17 was 8.6 -Hold metformin -Insulin sliding scale -Check BSGs q ac and qhs Myeloproliferative disease--stable -RBC, Hgb counts actually improved from February Chronic LE ulcers, pressure ulcers on left heel and sacrum POA -Wound care nurse consulted -Wound care provider consulted as above Severe protein calorie malnutrition -Nutrition consulted, continue Boost -GI consulted, appreciate recs: Pt agreeable to EGD/colonoscopy but wants to hold off for now due to pain/wound at coccyx. Can f/u outpt for scopes. Will sign off -Psych consulted to assess due to h/o OCD and possible underlying depression that may be contributing to failure to thrive. No treatment recommendations at this time. Possible OCD. Pt reassessed as pt had made comment about bringing guns to the hospital, currently denies any thoughts of harming himself or others. DVT prophylaxis -Heparin 5000 units SC q12h Code Status -Level I, FULL RESUSCITATION STATUS Dispo -From home, PT recommends rehab -Case management following, awaiting determination from [facility] -PICC in place
[2017-05-20] MEDS: CASPOFUNGIN INJ 50 MG in SODIUM CHLORIDE 0.9% 250ML 250 ML IV SCH (14:09)
--- NOTE | 2017-05-20 14:18 | Infectious Disease Progress Nt ---
Progress Note Date of Service May 20, 2017. Subjective Pt evaluation today including: conversation w/ patient, physical exam, chart review, lab review, review of studies, conversation w/ obiee consultant, review of inpatient medication list Offers no new complaints today. Feeling better. Pain controlled. No fever. All Other Systems: Reviewed and Negative Medications Current Inpatient Medications Medications (Trade) Dose Ordered Sig/Nilda Route Start Time Stop Time Status Last Admin Dose Admin Acetaminophen (Tylenol Tab) 650 mg Q4H PRN PO 05/11/17 21:00 06/10/17 20:59 05/14/17 14:30 650 MG Polyethylene (Miralax Powder Packet) 17 gm DAILY PRN PO 05/11/17 21:00 06/10/17 20:59 Ondansetron HCl (Zofran Inj) 4 mg Q6H PRN IV 05/11/17 21:00 06/10/17 20:59 Heparin Sodium (Porcine) (Heparin Sq 5000 Unit/0.5ml) 5,000 unit Q12H SQ 05/12/17 06:00 06/11/17 05:59 05/20/17 05:39 5,000 UNIT Atorvastatin Calcium (Lipitor Tab) 40 mg QAM PO 05/12/17 09:00 06/11/17 08:59 05/20/17 07:49 40 MG Cyanocobalamin (Vitamin B-12 Tab) 1,000 mcg DAILY PO 05/12/17 09:00 06/11/17 08:59 05/20/17 07:50 1,000 MCG Folic Acid (Folvite Tab) 1 mg QAM PO 05/12/17 09:00 06/11/17 08:59 05/20/17 07:50 1 MG Metoprolol Tartrate (Lopressor Tab) 25 mg BID PO 05/12/17 09:00 06/11/17 08:59 05/20/17 07:50 25 MG Pantoprazole Sodium (Protonix Tab) 40 mg QAM PO 05/12/17 09:00 06/11/17 08:59 05/20/17 07:51 40 MG Tamsulosin HCl (Flomax Cap) 0.4 mg DAILY PO 05/12/17 09:00 06/11/17 08:59 05/20/17 07:50 0.4 MG Glucose (Glucose 40% Gel) 15-30 GRAMS 15 GRAMS... UD PRN PO 05/11/17 23:15 06/10/17 23:14 Glucose (Glucose Chew Tab) 4-8 Tablets 4 Tabl... UD PRN PO 05/11/17 23:15 06/10/17 23:14 Dextrose (Dextrose 50% 50ML Syringe) 25-50ML OF 50% DW IV FOR... UD PRN IV 05/11/17 23:15 06/10/17 23:14 Glucagon (Glucagon Inj) 1 mg UD PRN SQ 05/11/17 23:15 06/10/17 23:14 Aspirin (Ecotrin Tab) 81 mg DAILY PO 05/13/17 09:00 06/12/17 08:59 05/20/17 07:49 81 MG Clopidogrel Bisulfate (plAVix TAB) 75 mg QAM PO 05/13/17 09:00 06/12/17 08:59 05/20/17 07:49 75 MG Enteral Nutritional Formula (Boost Glucose Control) 1 can BIDM PO 05/12/17 17:00 06/11/17 16:59 05/20/17 07:49 1 CAN Methenamine Hippurate (Urex Tab) 1 gm DAILY PO 05/13/17 09:00 06/12/17 08:59 05/20/17 07:50 1 GM Magnesium Oxide (Mag-Ox Tab) 400 mg BID PO 05/14/17 21:00 06/13/17 08:59 05/20/17 07:51 400 MG Piperacillin Sod/ Tazobactam Sod (Consult) 1 ea UD PRN N/A 05/14/17 14:45 06/13/17 14:44 Caspofungin 50 mg/ Sodium Chloride 260 ml @ 250 mls/hr Q24H IV 05/17/17 14:00 05/26/17 13:59 05/20/17 14:09 250 MLS/HR Insulin Glargine (Lantus Solostar Pen) 8 units HS SC 05/17/17 21:00 05/23/17 20:59 05/19/17 20:29 8 UNITS Insulin Aspart (novoLOG ASPART) 120 SLIDING SCALE ... ACHS SC 05/17/17 11:00 06/16/17 10:59 05/20/17 11:58 15 UNITS Piperacillin Sod/ Tazobactam Sod 3.375 gm/Dextrose 115 ml @ 28.75 mls/ hr Q8H IV 05/17/17 18:00 06/25/17 17:59 05/20/17 10:12 28.75 MLS/HR Heparin Sodium (Porcine) (Heparin 10 Unit/ ml 5 ml Flush) 5 ml PRN PRN FLUSH 05/20/17 07:00 06/19/17 06:59 Objective Vital Signs Date Time Temp Pulse Resp B/P (MAP) Pulse Ox O2 Delivery O2 Flow Rate FiO2 05/20/17 08:00 Room Air 05/20/17 07:58 36.4 94 18 131/67 (88) 96 Room Air 05/20/17 00:00 Room Air 05/19/17 23:43 36.6 93 18 108/68 (81) 96 Room Air 05/19/17 20:23 97 114/64 (81) 05/19/17 16:00 Room Air 05/19/17 16:00 36.7 84 20 139/71 (93) 97 Room Air Physical Exam General Appearance: WD/WN, no apparent distress Eyes: normal inspection, sclerae normal ENT: normal ENT inspection, pharynx normal Neck: supple, no adenopathy, trachea midline Respiratory/Chest: chest non-tender, lungs clear, normal breath sounds, no respiratory distress Cardiovascular: regular rate, rhythm, no gallop, no murmur Abdomen: normal bowel sounds, non tender, soft, no organomegaly Extremities: non-tender, no calf tenderness Neurologic/Psychiatric: alert, oriented x 3 Skin: normal color, no rash, + pertinent finding (Sacral dressing in place) Lymphatic: no adenopathy Laboratory Results Last 24 Hours Test 05/19/17 16:42 05/19/17 19:26 05/20/17 05:18 05/20/17 07:33 Bedside Glucose 237 mg/dl 219 mg/dl 245 mg/dl White Blood Count 8.15 K/uL Red Blood Count 3.55 M/uL Hemoglobin 10.2 g/dL Hematocrit 32.9 % Mean Corpuscular Volume 92.7 fL Mean Corpuscular Hemoglobin 28.7 pg Mean Corpuscular Hemoglobin Concent 31.0 g/dl RDW Standard Deviation 61.0 fL RDW Coefficient of Variation 17.9 % Platelet Count 437 K/uL Mean Platelet Volume 9.4 fL Sodium Level 137 mmol/L Potassium Level 4.5 mmol/L Chloride Level 103 mmol/L Carbon Dioxide Level 29 mmol/L Anion Gap 5.0 mmol/L Blood Urea Nitrogen 57 mg/dl Creatinine 1.65 mg/dl Est Creatinine Clear Calc Drug Dose 35.9 ml/min Estimated GFR () 48.4 Estimated GFR (Non- 41.7 BUN/Creatinine Ratio 34.5 Random Glucose 246 mg/dl Calcium Level 8.5 mg/dl Magnesium Level 1.7 mg/dl Assessment and Plan 67-year-old male with recent admission for urosepsis with MSSA, now presents with recurrence sepsis with urinalysis showing budding yeast and ultrasound raising possibility of fungal infection involving kidneys. Began on caspofungin for potential resistant yeast infection. CT scan showed evidence of sacral osteomyelitis and abscess collection, and patient now status post drainage of abscess. Operative cultures with Pseudomonas. Will continue Zosyn, likely 6 weeks. Continue caspofungin to complete 14 days Rx. Will follow.
[2017-05-20] MEDS ORDERED: MGNO400 PO (14:42)
[2017-05-20] MEDS ORDERED: [UNRECOGNIZED DRUG - CODE] IV ×2 (14:42→14:58)
[2017-05-20] MEDS ORDERED: [UNRECOGNIZED DRUG - CODE] IV (14:42)
--- NOTE | 2017-05-20 15:00 | Discharge Instructions ---
Discharge Instructions Date of Service May 20, 2017. Admission Reason for Admission: ARF Discharge Discharge Diagnosis / Problem: Acute renal failure, urinary tract infection, osteomyelitis Discharge Goals Goal(s): Decrease discomfort, Improve function, Diagnostic testing, Therapeutic intervention Activity Recommendations Activity Level: Assistance Required Therapies: Physical Therapy, Occupational Therapy . Additional Information Patient informed of condition: Yes Advance Directives: Yes DNR: No Level of Care: Acute Rehab Communicable Disease: No Prognosis: Stable Miller Catheter: Yes Instructions / Follow-Up Instructions / Follow-Up The patient was admitted to the hospital after presenting with weakness per his home health nurse. The patient was found to have acute renal failure. His nephrotoxic medications were stopped and nephrology was consulted. The renal failure is believed to be secondary to ATN and has been slowly resolving. The patient was also found to have a yeast (not donis albicans) urinary tract infection. Upon further work up the patient's renal failure, the patient was incidentally found to have osteomyelitis in the coccyx as well as a sacral abscess. The abscess was drained by general surgery, and the patient was placed on antibiotics for his osteomyelitis. The patient is now medically stable for discharge. Medications: *Caspofungin 50 mg IV qd x 5 more days to complete 14 day course per infectious disease recommendatiosn. *Zosyn 3.375 mg IV q8h x 35 days (5 weeks) to complete 6 week course for osteomyelitis. *Magnesium oxide 400 mg PO BID. *Lisinopril, hydrochlorothiazide and metformin have been stopped as these are nephrotoxic. *Continue other home medications as prescribed. Follow up: *Follow up with medical provider within 1 week. *Follow up with infectious disease before Zosyn course is completed. Patient needs at least 6 weeks of antibiotics for osteomyelitis but may require longer course. PICC in place. *Follow up with nephrology in 2-4 weeks to ensure resolution of renal failure. *Follow up with wound care clinic regarding open wound at coccyx. Please seek medical attention if patient experiences fevers, chills, sweats, dizziness/lightheadedness, loss of consciousness, chest pain, shortness of breath, nausea, vomiting, numbness or tingling. Current Hospital Diet Patient's current hospital diet: Regular Diet, AHA Diet (Heart Healthy), Diabetes Type 2 Diet Discharge Diet Recommended Diet: AHA Diet (Heart Healthy), Diabetes Type 2 Diet Procedures Procedures Performed: I/D abscess at sacrum Pending Studies Studies pending at discharge: no Physician Orders On Transfer Special Precautions: Fall precautions Dressing Changes: To coccyx wound: clean with saline, cover with Aquacel Ag and cover with Optifoam. Change daily. To left heel: paint with Betadine. Allow to dry. Cover with gauze. Apply every day. PICC line dressing prn/per protocol IV Therapy: Caspofungin 50 mg IV qd x 5 days Zosyn 3.375 mg IV q8h x 35 days Vital Signs: Routine Weigh: Daily, h/o CHF Additional Orders: Patient will need to follow with wound care routinely due to open wound at coccyx Laboratory Results Hemoglobin A1c Test 03/03/17 04:42 Range/Units Estimated Average Glucose 200 mg/dl Hemoglobin A1c 8.6 H 4.5-5.6 % Lipid Panel Test 03/04/17 06:27 Range/Units Triglycerides Level 106 0-150 mg/dl Cholesterol Level 67 0-200 mg/dl HDL Cholesterol 16 mg/dl Cholesterol/HDL Ratio 4.2 LDL Cholesterol, Calculated 30 mg/dl Medical Emergencies . Who to Call and When: Medical Emergencies: If at any time you feel your situation is an emergency, please call 911 immediately. . Non-Emergent Contact Non-Emergency issues call your: Primary Care Provider, [employer], Specialist (Infectious disease, wound care) Call Non-Emergent contact if: you have a fever, your pain is not controlled, your pain is worsening, your pain is unusual for you, your pain is concerning you, wound has increased drainage, wound has increased redness, wound has increased pain, you have any medication questions . . "Provider Documentation" section prepared by Alyssa Olivier. . Core Measure Problem Core Measures: None
--- NOTE | 2017-05-20 15:06 | Discharge Summary ---
Discharge Summary Date of Service May 20, 2017. Discharge Summary Admission Date: May 11, 2017 at 20:54 Discharge Date: May 20, 2017 Discharge Disposition: Rehab ([facility]) Principal Diagnosis: Acute renal failure, UTI, sepsis, osteomyelitis Procedures: Immediate Operative Summary Operative Date May 14, 2017. Pre-Operative Diagnosis abscess sacrum Post-Operative Diagnosis same Procedure(s) Performed I/D abscess at sacrum Surgeon Ralf Camacho Moveman Surgeon(s) nurse Estimated Blood Loss 2 ml Findings abscess at sacrum area, size 2x2cm wound culture sent Specimens wound culture Drains packing the wound Anesthesia local Complication(s) None Consultations: Nephrology Wound care Infectious disease General surgery Gastroenterology Medication Reconciliation New Medications: Caspofungin Acetate (Caspofungin Acetate) 50 Mg Inj 50 MG IV DAILY for 5 Days Piperacillin Sodium-Tazobactam (Piperacillin Sodium/ Tazo) 1 Inj Inj 3.375 GM IV Q8 for 35 Days Magnesium Oxide (Magnesium-Oxide) 400 Mg Tab 400 MG PO BID for 30 Days, #60 TAB Continued Medications: Aspirin (Aspirin Ec) 81 Mg Tab 81 MG PO DAILY Atorvastatin (Atorvastatin Calcium) 40 Mg Tab 40 MG PO QAM for 30 Days, #30 TAB Cholecalciferol (Vitamin D) 1,000 Unit Tab 1000 UNITS PO DAILY Clopidogrel Bisulfate (Clopidogrel) 75 Mg Tab 75 MG PO QAM for 30 Days, #30 TAB Cyanocobalamin (Vitamin B-12) 1,000 Mcg Tab 1000 MCG PO DAILY, TAB Folic Acid (Folic Acid) 1 Mg Tab 1 MG PO QAM for 30 Days, #30 TAB Insulin Glargine (Lantus Solostar) 100 Unit/Ml Inj Unknown Dose SC QPM, PEN Metoprolol Tartrate (Lopressor) 25 Mg Tab 25 MG PO BID for 30 Days, #60 TAB Pantoprazole (Pantoprazole Sodium) 40 Mg Tab 40 MG PO QAM for 30 Days, #30 TAB Tamsulosin Hcl (Flomax) 0.4 Mg Cap 0.4 MG PO DAILY, CAP Tocopheryl Acet,Dl-Alpha (Vitamin E) 100 Interunit Cap 100 UNITS PO DAILY Discontinued Medications: Hydrochlorothiazide (Hydrochlorothiazide) 25 Mg Tab 12.5 MG PO DAILY Lisinopril (Lisinopril) 2.5 Mg Tab 2.5 MG PO QAM for 30 Days, #30 TAB Metformin Hcl (Glucophage) 1,000 Mg Tab 1000 MG PO BID, TAB Methenamine Hippurate (Methenamine Hippurate) 1 Gm Tab 1 GM PO DAILY Discharge Exam The patient reports feeling well. He denies any new complaints. He denies any pain at his sacrum/coccyx while offloading but does have soreness when pressure is applied. The patient denies fevers, chills, sweats, chest pain, palpitations , claudication, cough, wheezing, shortness of breath, nausea, vomiting, abdominal pain, dysuria, hematuria, urinary retention, paralysis, weakness, numbness and tingling. Review of Systems: Constitutional: No fever, No chills, No sweats Eyes: No worsening of vision, No eye pain, No diplopia ENT: No hearing loss, No nasal symptoms, No trouble swallowing Respiratory: No cough, No wheezing, No shortness of breath Cardiovascular: No chest pain, No claudication, No palpitations Abdomen: No pain, No nausea, No vomiting Musculoskeletal: No joint pain, No muscle pain, No calf pain Genitourinary - Male: No hematuria, No dysuria, No urinary retention Neurologic: No paralysis, No weakness, No numbness/tingling Integumentary: No rash, No itch, No color change Physical Exam: General Appearance: no apparent distress, + thin Eyes: normal inspection, PERRL, EOMI ENT: normal ENT inspection, hearing grossly normal, pharynx normal Neck: supple, no JVD, trachea midline Respiratory/Chest: lungs clear, normal breath sounds, no respiratory distress Cardiovascular: regular rate, rhythm, no gallop, no murmur Abdomen / GI: normal bowel sounds, non tender, soft Extremities: normal inspection, no calf tenderness, no pedal edema, + pertinent finding (wound at coccyx dressed) Neurologic/Psychiatric: alert, oriented x 3, + pertinent finding (flat affect) Skin: normal color, warm/dry, no rash Hospital Course 67 y/o male with a history of DM II, systolic CHF, BPH with obstructive uropathy , chronic Miller, severe protein-calorie malnutrition, chronic lower extremity ulcers, myeloproliferate disorder and recent NSTEMI February 2017 who presents with weakness per home health nurse. Acute renal failure--improving -Admit to med/surg -Baseline creatinine had been 0.8, creatinine on admission was 3.69 -Creatinine continues to improve, down to 1.65 from 1,84 on 05/20 -UO 3800, net balance -2170 through 05/19. Encouraged pt to drink more to keep fluid balance equal -Recently started on HCTZ and lisinopril within last few months. Will continue to hold these meds as well as metformin -D/C IVF -Nephrology consulted, appreciate recs: Maintain even fluid balance, encouraged pt to drink more as he has been persistently net negative. Document I/O's. Continue to Hold lisinopril, HCTZ and metformin. Encourage nutrition. Will sign off. -Renal ultrasound with mild/moderate bilateral renal hydronephrosis and possible pyelonephritis -Urine creatinine and urine sodium WNL -CT a/p shows interval improvement of hydronephrosis, no jose daniel hydro seen. Interval improvement of bilateral perinephric edema. Bladder wall thickening persists consistent w/cystitis and b/l pyelo. Interval osteomyelitis of coccyx tip with small surrounding 1.4 cm abscess. Fracture through tip of coccyx. Suggested thickening of distal descending colon, prox sigmoid colon, and rectum. Sepsis secondary to UTI and pyelonephritis due to chronic indwelling Miller catheter--improving -Leukocytosis remains stable, WNL -UA positive for yeast -Urine culture positive for non-donis yeast. -Blood cultures negative, final -Infectious disease consulted, appreciate recs: Pt will need caspofungin x 14 days, and Zosyn for at least 6 weeks. Can d/c dapto -Continue caspofungin 50 mg IV qd. 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 AVSS, tolerating diet. Daily dressing changes per wound care. Will sign off -Consult wound care provider, appreciate recs: no debridement, s/p I&D -Wound culture with pseudomonas -D/C daptomycin -Continue Zosyn IV. Day #7. Will need at least 6 weeks for osteomyelitis. PICC in place BPH with bladder outlet obstruction, chronic Miller--ongoing -Urology consulted, appreciate recs: Ewing improved on CT and creatinine improving. Urine output improved. No surgical intervention/stents at this time. Will sign off. F/u with Dr. Marrero in 2 weeks -Change indwelling Miller 05/12 due to UTI POA, then change q month per urology -Continue Flomax 0.4 mg PO hs Hypomagnesemia--ongoing -Magnesium 1.7 on 05/20 -Mag sulfate 1 gm IV x 1 -Continue mag oxide to 400 mg PO BID -Continue to monitor Chronic systolic CHF--stable, no acute exacerbation -IVF d/c'd -Continue Lopressor 25 mg PO BID -Lisinopril and HCTZ held -Repeat echo without any significant changes. EF still 35-40%. Grade 1 diastolic dysfunction. Global hypokinesis with severe hypokinesis of basal inferior wall. CAD, h/o NSTEMI--stable, asymptomatic. EKG no ischemic changes. Trop negative -Resume ASA, Plavix. No procedures at this time -Continue atorvastatin 40 mg PO qd DM II--last HgbA1c checked 03/03/17 was 8.6 -Hold metformin -Insulin sliding scale -Check BSGs q ac and qhs Myeloproliferative disease--stable -RBC, Hgb counts actually improved from February Chronic LE ulcers, pressure ulcers on left heel and sacrum POA -Wound care nurse consulted -Wound care provider consulted as above Severe protein calorie malnutrition -Nutrition consulted, continue Boost -GI consulted, appreciate recs: Pt agreeable to EGD/colonoscopy but wants to hold off for now due to pain/wound at coccyx. Can f/u outpt for scopes. Will sign off -Psych consulted to assess due to h/o OCD and possible underlying depression that may be contributing to failure to thrive. No treatment recommendations at this time. Possible OCD. Pt reassessed as pt had made comment about bringing guns to the hospital, currently denies any thoughts of harming himself or others. DVT prophylaxis -Heparin 5000 units SC q12h Code Status -Level I, FULL RESUSCITATION STATUS Dispo -From home, PT recommends rehab -Case management following, accepted to [facility] -PICC in place Total Time Spent: Greater than 30 minutes This includes examination of the patient, discharge planning, medication reconciliation, and communication with other providers. Discharge Instructions Please refer to the electronic Patient Visit Report (Discharge Instructions) for additional information. Additional Copies To Cyndi Almonte; Barb Gray M.D.
[2017-05-20 15:10] VITALS: BP 131/67; PULSE 94; TEMP 36.4; O2SAT 96
[2017-05-20 15:31] VITALS: BP 125/55; PULSE 90; TEMP 36.6; O2SAT 96
--- NOTE | 2017-05-26 12:41 | Wound Clinic Return Visit ---
Wound Clinic Return Visit Date of Service May 26, 2017. Subjective The patient presents today for re-evaluation of stage IV pressure ulcer to the coccyx with osteomyelitis and an unstageable pressure ulcer to the heel . The patient denies any specific new systemic complaints. Patient did have incision and drainage of abscess on 05/14 was positive Pseudomonas patient is currently on IV Zosyn under the direction of ID. patient is currently at [facility] and plans for discharge are unclear at this time Objective Current Pain Level: 0.0 Last Vital Signs Documentation Date Time Temp Pulse Resp B/P (MAP) Pulse Ox O2 Delivery O2 Flow Rate FiO2 05/20/17 15:31 36.6 90 20 125/55 (78) 96 Room Air The patients vital signs were reviewed and found to be unremarkable. The patient is afebrile today. There is no evidence today of marialuisa wound erythema, edema, drainage or odor. Assessment 1.: stage IV pressure ulcer coccyx post debridement 2.: unstageable pressure ulcer heal Plan With the patient's permission after the application of topical Xylocaine the wound was debrided with a scissors and forceps of eschar to the heel only. Betadine will be applied to the heel and iodoform gauze packing will be placed in the coccyx wound. Patient will be scheduled with infectious disease next visit regarding antibiotic management. Will also work with [facility] on offloading both the heel and the coccyx and to develop a plan to meet patient's needs for offloading upon discharge This represents a non-excisional debridment of less than 20 cm
== END 2017-05-20 18:15 | DRG 698 ==
LOC: EDBD 17:06 → C.EDC 17:08 → C.MS2W 20:54 → ENRESERV 21:30
PROVIDERS: ADMIT Internal Medicine; ATTEND Hospitalist
PROC: 0Q913ZZ Drainage of Sacrum, Percutaneous Approach (ICD-10-PCS; principal; 2017-05-14)
DX: T83.518A Infection and inflammatory reaction due to other urinary catheter, initial encounter (principal); E43 Unspecified severe protein-calorie malnutrition; A41.9 Sepsis, unspecified organism; N17.0 Acute kidney failure with tubular necrosis; I50.22 Chronic systolic (congestive) heart failure; N39.0 Urinary tract infection, site not specified; I11.0 Hypertensive heart disease with heart failure; L89.620 Pressure ulcer of left heel, unstageable; E11.9 Type 2 diabetes mellitus without complications; E86.0 Dehydration; Z79.82 Long term (current) use of aspirin; Z79.4 Long term (current) use of insulin; Z87.440 Personal history of urinary (tract) infections

== ENCOUNTER → 2017-06-09 | Outpatient (CLI) | payer BC ==
[~2017-06-09] MED LIST changes: -ACET-1256 PO; -HYDR25TA5 PO; -LCTX PO; -LSN25 PO; -METF-384 PO; +MGNO400 PO; -QSTP PO; +[UNRECOGNIZED DRUG - CODE] IV; +[UNRECOGNIZED DRUG - CODE] IV
[2017-06-09 16:12] LABS: BASO % 0.2 %; BASO ABS # 0.04 K/uL (0-0.2); COMPLETE YES; EOS % 42.7 %; IG% 0.6 %; LYMPH % 9.4 %; LYMPH ABS # 1.86 K/uL (1.2-3.4); MEAN CELL VOLUME 96.8 fL (80-100); MEAN CORPUSCULAR HEMOGLOBIN 30.3 pg (25-34); MEAN CORPUSCULAR HGB CONC 31.3 g/dl (32-36); MEAN PLATELET VOLUME 9.4 fL (7.4-10.4); MONO % 6.3 %; NEUT % 40.8 %; PLATELET COUNT 403 K/uL (130-400); RED BLOOD COUNT 4.03 M/uL (4.7-6.1); WHITE BLOOD COUNT 19.75 K/uL (4.8-10.8)
[2017-06-09 16:22] LABS: ALT/SGPT 16 U/L (12-78); BLOOD UREA NITROGEN 26 mg/dl (7-18); BUN/CREATININE RATIO 19.4 (10-20); CALCIUM 8.9 mg/dl (8.5-10.1); CARBON DIOXIDE 28 mmol/L (21-32); CHLORIDE 103 mmol/L (98-107); CREATININE 1.33 mg/dl (0.60-1.40); GLUCOSE 251 mg/dl (70-99); POTASSIUM 3.7 mmol/L (3.5-5.1); SODIUM 139 mmol/L (136-145)
[2017-06-09 16:26] LABS: ALB/GLOB RATIO 0.7 (0.9-2); ALKALINE PHOSPHATASE 101 U/L (45-117); AST/SGOT 14 U/L (15-37)
== END | disposition home or self-care (01) ==
LOC: C.LABSPEC 15:55
PROVIDERS: ATTEND Internal Medicine Infectious Disease
DX: E11.9 Type 2 diabetes mellitus without complications (principal); D64.9 Anemia, unspecified; M46.28 Osteomyelitis of vertebra, sacral and sacrococcygeal region; Z51.81 Encounter for therapeutic drug level monitoring; Z79.2 Long term (current) use of antibiotics

== ENCOUNTER 2017-06-14 03:24 | Emergency (ER) | payer BC, OTHER ==
[~2017-06-14] VITALS: Ht 182.9 cm; Wt 66.1 kg
[~2017-06-14 03:24] MED LIST changes: -INSDGIPEN SC; +INSDGIPEN SQ
[2017-06-14 03:35] VITALS: TEMP 36.4; Ht 182.9 cm; Wt 66.1 kg
--- NOTE | 2017-06-14 03:40 | EMERGENCY ROOM VISIT NOTE ---
History Report prepared by Destiny: Collin Dolan Under the Supervision of: Dr. Vinicius Blake M.D. First contact with patient: 03:25 Stated Complaint: CATHETER PROBLEMS History of Present Illness The patient is a 67 year old male who presents to the Emergency Room with complaints of a constant Hallman malfunction that occurred 6 hours ago. He describes his pain as a burning sensation. The patient states that he has had this catheter for a couple of weeks due to his history of urinary retention. He states that he is still on his antibiotic for his previous infection. He denies nausea, vomiting, fevers, and chills. Source of History: patient Onset: 6 hours ago Position: other (global) Quality: burning Timing: constant Associated Symptoms: No fevers, No chills, No nausea, No vomiting Review of Systems See HPI for pertinent positives & negatives. A total of 6 systems reviewed and were otherwise negative. Past Medical & Surgical Medical Problems: (1) Abscess (2) Acute renal insufficiency (3) ATN (acute tubular necrosis) (4) Hydronephrosis (5) Hypertension (6) Hypertension (7) Leukocytosis (8) MSSA (methicillin susceptible Staphylococcus aureus) septicemia (9) Recurrent UTI (10) Sepsis (11) Urinary tract infection Family History No pertinent family history Social History Smoking Status: Former Smoker Drug Use: none Marital Status: single Housing Status: lives alone Occupation Status: employed Current/Historical Medications Scheduled Aspirin (Aspirin Ec), 81 MG PO DAILY Atorvastatin (Lipitor), 40 MG PO DAILY Cholecalciferol (Vitamin D), 1,000 UNITS PO DAILY Clopidogrel (Plavix), 75 MG PO DAILY Cyanocobalamin (Vitamin B12), 1,000 MCG PO DAILY Folic Acid (Folvite), 1 MG PO DAILY Insulin Glargine (Lantus Solostar), 44 UNITS SQ QPM Lisinopril (Zestril), 2.5 MG PO DAILY Magnesium Oxide (Mag-Ox), 400 MG PO BID Metoprolol Tartrate (Lopressor), 25 MG PO BID Pantoprazole (Protonix), 40 MG PO DAILY Piperacillin Sodium-Tazobactam (Piperacillin Sodium/ Tazo), 3.375 GM IV Q8 Tamsulosin Hcl (Flomax), 0.4 MG PO DAILY Allergies Coded Allergies: No Known Allergies (Unverified , 02/27/17) Physical Exam Vital Signs Date Time Temp Pulse Resp B/P (MAP) Pulse Ox O2 Delivery O2 Flow Rate FiO2 06/14/17 05:12 89 15 133/61 98 Room Air 06/14/17 03:35 36.4 94 16 103/65 97 Room Air Physical Exam GENERAL: Patient is chronically ill appearing, cachectic, and in no acute distress. HEENT: No acute trauma, normocephalic atraumatic, mucous membranes moist, no nasal congestion, no scleral icterus. NECK: No stridor, no adenopathy, no meningismus, trachea is midline. LUNGS: No dyspnea. Clear to auscultation and equal bilaterally. No wheeze, no rhonchi. HEART: Regular rate and rhythm. No murmurs, rubs, gallops appreciated. ABDOMEN: Large firm lower abdominal mass with tenderness to palpation. Bowel sounds positive, no peritonitis. EXTREMITIES: Normal motion all extremities, no cyanosis, no edema. Limb wasting NEUROLOGIC: Alert and oriented, no acute motor or sensory deficits, no focal weakness, cranial nerves grossly intact. SKIN: No rash, no jaundice, no diaphoresis. : Hallman in place. No urine output from Hallman. Medical Decision & Procedures Laboratory Results Test 06/14/17 03:55 Urine Color YELLOW Urine Appearance CLOUDY (CLEAR) Urine pH 5.5 (4.5-7.5) Urine Specific Bradner 1.021 (1.000-1.030) Urine Protein NEG (NEG) Urine Glucose (UA) 3+ (NEG) Urine Ketones NEG (NEG) Urine Occult Blood 2+ (NEG) Urine Nitrite NEG (NEG) Urine Bilirubin NEG (NEG) Urine Urobilinogen NEG (NEG) Urine Leukocyte Esterase SMALL (NEG) Urine WBC (Auto) >30 /hpf (0-5) Urine RBC (Auto) 5-10 /hpf (0-4) Urine Hyaline Casts (Auto) 5-10 /lpf (0-5) Urine Epithelial Cells (Auto) >30 /lpf (0-5) Urine Bacteria (Auto) NEG (NEG) Urine Renal Epithelial Cells /lpf (0-5) Urine Yeast (Auto) BUDDING (NONE PRSENT) Laboratory results as reviewed by me. ED Course 0328: The patient was evaluated in room B09. A complete history and physical exam was performed. 0341: Ordered Lidocaine HCl 30 ml EXT. 0401: I reevaluated the patient and he is feeling better. He had 1500 ml of urine output. 0445: Reevaluated the patient. Discussed results and discharge instructions: He verbalized understanding and agreement. The patient is ready for discharge. Medical Decision 67 yr old cachectic male with quite poor course over last few months arrives due to no UOP in to hallman over last 6+ hours. Cleared blockage with ~1500ml UOP shortly there-after. There is fair amount of sediment in the line and given older hallman will replace to try and avoid this occurring again. UA consistent with chronic indwelling hallman and I do not feel there is clear need to change abx at this time. Vitals are good and there is no evidence of infection. Given that he is here for hallman blockage I do not feel that labs nor further testing are indicated as he has no other complaints but that he would like use to get him food tray. I did have case management touch base with him to see if there are other services we could help out with. Medication Reconcilliation Current Medication List: was personally reviewed by me Blood Pressure Screening Patient's blood pressure: Normal blood pressure Impression Primary Impression: Complication of catheter Scribe Attestation The scribe's documentation has been prepared under my direction and personally reviewed by me in its entirety. I confirm that the note above accurately reflects all work, treatment, procedures, and medical decision making performed by me. Departure Information Dispostion Home / Self-Care Referrals Barb Gray M.D. (PCP) Patient Instructions ED Catheter Care Nikki Hallman [facility]
[2017-06-14] MEDS ORDERED: LIDOCAINE HCL 2% JELLY 30 ML TUBE EXT ONE (03:41)
[2017-06-14 04:24] LABS: URINE APPEARANCE CLOUDY (CLEAR); URINE BILIRUBIN NEG (NEG); URINE COLOR YELLOW; URINE EPITHELIAL CELL AUTO >30 /lpf (0-5); URINE NITRITE NEG (NEG); URINE PH 5.5 (4.5-7.5); URINE SPECIFIC GRAVITY 1.021 (1.000-1.030); UROBILINOGEN NEG (NEG); ZZURINE CULT IF INDIC CATH YES
[2017-06-14 04:26] LABS: MANUAL MICROSCOPIC REQUIRED? NO; REVIEW REQ? YES
[2017-06-14] MEDS ORDERED: ATOR-24 PO (04:37)
[2017-06-14] MEDS ORDERED: CLOP1TAB15 PO (04:38)
[2017-06-14] MEDS ORDERED: FOLI1TAB8 PO (04:39)
[2017-06-14] MEDS ORDERED: MAGN400T6 PO (04:42)
[2017-06-14] MEDS ORDERED: LPR25 PO (04:43)
[2017-06-14] MEDS ORDERED: CYAN100020 PO (04:45)
[2017-06-14] MEDS ORDERED: LISI-789 PO (04:51)
[2017-06-14] MEDS ORDERED: PANT40TA PO (04:53)
[2017-06-14 06:35] VITALS: BP 156/86; PULSE 97; O2SAT 100
== END 2017-06-14 06:37 | disposition home or self-care (01) ==
LOC: EDBD 03:24 → C.EDB 03:25
DX: T83.091A Other mechanical complication of indwelling urethral catheter, initial encounter (principal); Y84.6 Urinary catheterization as the cause of abnormal reaction of the patient, or of later complication, without mention of misadventure at the time of the procedure; Y73.2 Prosthetic and other implants, materials and accessory gastroenterology and urology devices associated with adverse incidents; I10 Essential (primary) hypertension; Z79.82 Long term (current) use of aspirin; Z79.02 Long term (current) use of antithrombotics/antiplatelets; Z79.4 Long term (current) use of insulin; Z87.440 Personal history of urinary (tract) infections; Z86.19 Personal history of other infectious and parasitic diseases; Z87.891 Personal history of nicotine dependence

== ENCOUNTER → 2017-06-16 | Outpatient (CLI) | payer BC ==
[~2017-06-16] MED LIST changes: +ATOR-24 PO; +CLOP1TAB15 PO; +CYAN100020 PO; -CYAN10005 PO; -FLV1 PO; +FOLI1TAB8 PO; +LISI-789 PO; -LPT40 PO; +MAGN400T6 PO; -MGNO400 PO; +PANT40TA PO; -PLV75 PO; -PRT40 PO; -VTME100 PO; -[UNRECOGNIZED DRUG - CODE] IV
[2017-06-16 18:06] LABS: BASO % 0.6 %; BASO ABS # 0.06 K/uL (0-0.2); COMPLETE YES; EOS % 13.8 %; HEMATOCRIT 38.8 % (42-52); IG% 0.5 %; LYMPH % 17.3 %; LYMPH ABS # 1.75 K/uL (1.2-3.4); MEAN CELL VOLUME 94.9 fL (80-100); MEAN CORPUSCULAR HEMOGLOBIN 30.6 pg (25-34); MEAN CORPUSCULAR HGB CONC 32.2 g/dl (32-36); MEAN PLATELET VOLUME 9.9 fL (7.4-10.4); MONO % 6.4 %; NEUT % 61.4 %; PLATELET COUNT 357 K/uL (130-400); RED BLOOD COUNT 4.09 M/uL (4.7-6.1); WHITE BLOOD COUNT 10.13 K/uL (4.8-10.8)
[2017-06-16 18:13] LABS: ALT/SGPT 18 U/L (12-78); AST/SGOT 11 U/L (15-37); BLOOD UREA NITROGEN 22 mg/dl (7-18); BUN/CREATININE RATIO 18.1 (10-20); CARBON DIOXIDE 29 mmol/L (21-32); CHLORIDE 102 mmol/L (98-107); CREATININE 1.23 mg/dl (0.60-1.40); GLUCOSE 302 mg/dl (70-99); POTASSIUM 3.8 mmol/L (3.5-5.1); SODIUM 137 mmol/L (136-145)
[2017-06-16 18:16] LABS: ALKALINE PHOSPHATASE 87 U/L (45-117)
[2017-06-16 18:23] LABS: ALB/GLOB RATIO 0.7 (0.9-2); BETA-HYDROXYBUTYRATE 1.27 mg/dL (0.2-2.81)
== END | disposition home or self-care (01) ==
LOC: C.LABSPEC 17:40
PROVIDERS: ATTEND Internal Medicine Infectious Disease
DX: E11.9 Type 2 diabetes mellitus without complications (principal); D64.9 Anemia, unspecified; M46.28 Osteomyelitis of vertebra, sacral and sacrococcygeal region; Z51.81 Encounter for therapeutic drug level monitoring

== ENCOUNTER → 2017-06-23 | Outpatient (CLI) | payer BC ==
[~2017-06-23] MED LIST changes: +Boost PO; +CEPH500C PO; +CHOL1000 PO; +CIPR-255 PO; +CYAN10005 PO; +DOXY-300 PO; +FLUC100T4 PO; +GLC/500 PO; +GLIM2TAB2 PO; +INSU100I2 SC; +METH-1305 PO; +METO25TA56 PO; +MRLP17 PO; +NUTR-7 PO; +NVLGI/PEN SQ; +NVLGIPEN SC; +NYST100033; +PIPE1INJ11 IB; +PIPE1INJ11 IV; +POLY335019 PO; +Piperacill/Tazobac Consult; +SENN-61 PO; +SULF800T23 PO; +TPRSR50 PO; +ZSYI45
[2017-06-23 16:52] LABS: BASO % 0.6 %; BASO ABS # 0.05 K/uL (0-0.2); EOS % 18.7 %; EOS ABS # 1.53 K/uL (0-0.5); HEMATOCRIT 38.8 % (42-52); HEMOGLOBIN 12.6 g/dL (14.0-18.0); IG# 0.04 K/uL (0.00-0.02); LYMPH % 27.7 %; LYMPH ABS # 2.26 K/uL (1.2-3.4); MEAN CELL VOLUME 94.4 fL (80-100); MEAN CORPUSCULAR HEMOGLOBIN 30.7 pg (25-34); MEAN CORPUSCULAR HGB CONC 32.5 g/dl (32-36); MEAN PLATELET VOLUME 9.8 fL (7.4-10.4); MONO % 5.3 %; MONO ABS # 0.43 K/uL (0.11-0.59); NEUT % 47.2 %; NEUT ABS # 3.86 K/uL (1.4-6.5); PLATELET COUNT 331 K/uL (130-400); RED CELL DISTRIBUTION WIDTH CV 15.7 % (11.5-14.5); RED CELL DISTRIBUTION WIDTH SD 54.4 fL (36.4-46.3); WHITE BLOOD COUNT 8.17 K/uL (4.8-10.8)
[2017-06-23 17:01] LABS: ALT/SGPT 21 U/L (12-78); AST/SGOT 14 U/L (15-37); BLOOD UREA NITROGEN 27 mg/dl (7-18); CALCIUM 8.9 mg/dl (8.5-10.1); CARBON DIOXIDE 31 mmol/L (21-32); CREATININE 1.05 mg/dl (0.60-1.40); GLUCOSE 322 mg/dl (70-99); SODIUM 135 mmol/L (136-145)
[2017-06-23 17:03] LABS: TOTAL PROTEIN 7.1 gm/dl (6.4-8.2)
[2017-06-23 17:11] LABS: ALKALINE PHOSPHATASE 83 U/L (45-117)
== END | disposition home or self-care (01) ==
LOC: C.LABSPEC 16:35
PROVIDERS: ATTEND Internal Medicine Infectious Disease
DX: M46.28 Osteomyelitis of vertebra, sacral and sacrococcygeal region (principal); Z79.2 Long term (current) use of antibiotics; I25.2 Old myocardial infarction; L89.154 Pressure ulcer of sacral region, stage 4; D64.9 Anemia, unspecified

== ENCOUNTER → 2017-06-30 | Outpatient (CLI) | payer BC ==
[~2017-06-30] MED LIST changes: -CEPH500C PO; -CHOL1000 PO; -CIPR-255 PO; -CYAN10005 PO; -DOXY-300 PO; -FLUC100T4 PO; -GLC/500 PO; -GLIM2TAB2 PO; -INSU100I2 SC; -METO25TA56 PO; -NUTR-7 PO; -NVLGI/PEN SQ; -NVLGIPEN SC; -NYST100033; -PIPE1INJ11 IB; -POLY335019 PO; -Piperacill/Tazobac Consult; -SULF800T23 PO; -TPRSR50 PO; -ZSYI45
[2017-06-30 15:33] LABS: BASO % 0.3 %; BASO ABS # 0.04 K/uL (0-0.2); EOS % 9.3 %; EOS ABS # 1.15 K/uL (0-0.5); HEMATOCRIT 36.2 % (42-52); HEMOGLOBIN 11.8 g/dL (14.0-18.0); IG# 0.05 K/uL (0.00-0.02); LYMPH % 8.3 %; LYMPH ABS # 1.03 K/uL (1.2-3.4); MEAN CELL VOLUME 95.3 fL (80-100); MEAN CORPUSCULAR HEMOGLOBIN 31.1 pg (25-34); MEAN CORPUSCULAR HGB CONC 32.6 g/dl (32-36); MONO % 11.9 %; MONO ABS # 1.48 K/uL (0.11-0.59); NEUT % 69.8 %; NEUT ABS # 8.64 K/uL (1.4-6.5); PLATELET COUNT 298 K/uL (130-400); RED CELL DISTRIBUTION WIDTH CV 15.5 % (11.5-14.5); RED CELL DISTRIBUTION WIDTH SD 54.5 fL (36.4-46.3); WHITE BLOOD COUNT 12.39 K/uL (4.8-10.8)
[2017-06-30 15:57] LABS: ALBUMIN 2.9 gm/dl (3.4-5.0); ALKALINE PHOSPHATASE 96 U/L (45-117); ALT/SGPT 25 U/L (12-78); AST/SGOT 15 U/L (15-37); BLOOD UREA NITROGEN 43 mg/dl (7-18); CALCIUM 8.9 mg/dl (8.5-10.1); CARBON DIOXIDE 29 mmol/L (21-32); CREATININE 1.44 mg/dl (0.60-1.40); POTASSIUM 4.2 mmol/L (3.5-5.1); SODIUM 139 mmol/L (136-145); TOTAL PROTEIN 6.8 gm/dl (6.4-8.2)
[2017-06-30 15:58] LABS: GLUCOSE 392 mg/dl (70-99)
--- NOTE | 2017-08-07 09:23 | CODING QUERY NO DIAGNOSIS ---
: 1950 TREATMENT RENDERED WITHOUT A DIAGNOSIS To promote full compliance with coding requirements relating to patient care, physician participation is requested in all cases of extrusion line operator uncertainty. Please assist us with providing a diagnosis/symptom for the test(s) below: A diagnosis/symptom was not documented on your order. A valid diagnosis/symptom is required to bill all insurances. Please remember that we are unable to code a diagnosis of rule out, probable, possible, questionable, or suspected. Tests that require a diagnosis: Date of Service: 06/30/17 * CPK DIAGNOSIS: * Comp. Metabolic DIAGNOSIS: * CBC w/ Diff DIAGNOSIS: Provider Signature: Date: Thank you Sarah [facility] [employer] Information Management Once completed, please kindly fax back to [phone] For questions please call [phone]
== END | disposition home or self-care (01) ==
LOC: C.LABSPEC 15:07
PROVIDERS: ATTEND Internal Medicine Infectious Disease
DX: M86.9 Osteomyelitis, unspecified (principal)

== ENCOUNTER 2017-07-04 09:15 | Emergency (ER) | payer BC ==
[~2017-07-04] VITALS: Ht 182.9 cm; Wt 73.0 kg
[2017-07-04 09:15] VITALS: TEMP 36.9; Ht 182.9 cm; Wt 73.0 kg
[~2017-07-04 09:15] MED LIST changes: -Boost PO; -METH-1305 PO; -MRLP17 PO; -PIPE1INJ11 IV; -SENN-61 PO
--- NOTE | 2017-07-04 09:31 | EMERGENCY ROOM VISIT NOTE ---
History Report prepared by Destiny: Maru Hartman Under the Supervision of: Joselin CarrasquilloO. First contact with patient: 09:17 Chief Complaint: URINARY SYMPTOMS Stated Complaint: GROIN PAIN Nursing Triage Summary: Patient arrived via EMS from home. Pt states he has "burning sensation in my penis" for approx 12 hours. Pt has indwelling catheter. Draining clear yellow urine. Pt states he feels like it is not draining completely. Pt abdomen distended. History of Present Illness The patient is a 67 year old male who presents to the Emergency Room with complaints of lower abdominal pain [employer]. He currently rates his pain a 5/10 in severity. The patient has a Miller catheter because of bladder dysfunction. He started to notice that there was leaking around the catheter and now has abdominal distention. He had similar symptoms in the past and it was associated with urinary retention. The patient denies having any fever or back pain. He denies having any lower extremity edema. He's had no fevers. He is currently receiving antibiotic for a bone infection. The patient states that the symptoms are moderate and worsened with lying flat as well as standing up. He has not seen his primary care physician for this problem. The patient arrived via EMS because of the weather. Source of History: patient Onset: [employer] Position: abdomen Symptom Intensity: 5/10 Modifying Factors (Worsening): other (worsens while lying flat as well as standing up) Associated Symptoms: No fevers, No back pain Note: He denies any lower extremity edema. Review of Systems See HPI for pertinent positives & negatives. A total of 10 systems reviewed and were otherwise negative. Past Medical & Surgical Medical Problems: (1) Abscess (2) Acute renal insufficiency (3) ATN (acute tubular necrosis) (4) Hydronephrosis (5) Hypertension (6) Hypertension (7) Leukocytosis (8) MSSA (methicillin susceptible Staphylococcus aureus) septicemia (9) Recurrent UTI (10) Sepsis (11) Urinary tract infection Family History No pertinent family history Social History Smoking Status: Former Smoker Drug Use: none Marital Status: single Housing Status: lives alone Occupation Status: employed Current/Historical Medications Scheduled Aspirin (Aspirin Ec), 81 MG PO DAILY Atorvastatin (Lipitor), 40 MG PO DAILY Cholecalciferol (Vitamin D), 1,000 UNITS PO DAILY Clopidogrel (Plavix), 75 MG PO DAILY Cyanocobalamin (Vitamin B12), 1,000 MCG PO DAILY Folic Acid (Folvite), 1 MG PO DAILY Insulin Glargine (Lantus Solostar), 44 UNITS SQ QPM Lisinopril (Zestril), 2.5 MG PO DAILY Magnesium Oxide (Mag-Ox), 400 MG PO BID Methenamine Hippurate (Methenamine Hippurate), 1 GM PO BID Metoprolol Tartrate (Lopressor), 25 MG PO BID Piperacillin Sodium-Tazobactam (Piperacillin Sodium/ Tazo), 3.375 GM IV Q8 Tamsulosin Hcl (Flomax), 0.4 MG PO DAILY Scheduled PRN Senna (Senokot), 1 TAB PO DAILY PRN for Constipation Allergies Coded Allergies: No Known Allergies (Unverified , 07/04/17) Physical Exam Vital Signs Date Time Temp Pulse Resp B/P (MAP) Pulse Ox O2 Delivery O2 Flow Rate FiO2 07/04/17 11:02 93 18 164/82 100 Room Air 07/04/17 09:29 87 07/04/17 09:15 36.9 86 18 134/81 100 Room Air Physical Exam GENERAL: Patient is awake alert in no acute distress patient is resting comfortably and showing no signs of anxiety EYES: The conjunctivae are clear. The pupils are round and reactive. EARS, NOSE, MOUTH AND THROAT: The nose is without any evidence of any deformity. Mucous membranes are moist tongue is midline NECK: The neck is nontender and supple. RESPIRATORY: Normal respiratory effort is noted there is no evidence of wheezing rhonchi or rales CARDIOVASCULAR: Regular rate and rhythm noted there no murmurs rubs or gallops normal S1 normal S2 GASTROINTESTINAL: The abdomen is moderately distended with significant bladder distention and tenderness. Avoid catheter is in place but there is leaking noted around it. The urine is clear. MUSCULOSKELETAL/EXTREMITIES: There is no evidence of gross deformity full range of motion is noted in the hips and shoulders SKIN: There is no obvious evidence of any rash. Trace pedal edema was noted bilaterally. NEUROLOGIC: Patient is awake alert and oriented x3. Medical Decision & Procedures Laboratory Results Test 07/04/17 09:40 Urine Color YELLOW Urine Appearance CLEAR (CLEAR) Urine pH 7.0 (4.5-7.5) Urine Specific Sarah 1.018 (1.000-1.030) Urine Protein NEG (NEG) Urine Glucose (UA) 3+ (NEG) Urine Ketones NEG (NEG) Urine Occult Blood 1+ (NEG) Urine Nitrite NEG (NEG) Urine Bilirubin NEG (NEG) Urine Urobilinogen NEG (NEG) Urine Leukocyte Esterase MODERATE (NEG) Urine WBC (Auto) >30 /hpf (0-5) Urine RBC (Auto) 5-10 /hpf (0-4) Urine Hyaline Casts (Auto) 0 /lpf (0-5) Urine Epithelial Cells (Auto) 0-5 /lpf (0-5) Urine Bacteria (Auto) NEG (NEG) Urine Pathogenic Casts /lpf (0) Urine Yeast (Auto) BUD W/ HYPHAE (NONE PRSENT) Laboratory results per my review. ECG Indication: abdominal pain Rate (beats per minute): 84 Rhythm: normal sinus Findings: no acute ischemic change, no ectopy Change: no significant change (05/11/2017) ED Course 0920: The patient was evaluated in room A11B. A complete history and physical examination were performed. 0950: I reassessed the patient at this time. He is feeling better and resting comfortably. 1045: I reassessed the patient at this time. He is feeling better and resting comfortably. I discussed the results and treatment plan with the patient. I answered all pertaining questions that he had. He expressed understanding and verbalized agreement. The patient will be discharged home. Medical Decision Prior records/ancillary studies reviewed. Triage Nursing notes reviewed. Differential diagnosis: Etiologies such as appendicitis, diverticulitis, PUD, biliary pathology, UTI, pancreatitis, obstruction, mesenteric ischemia, aortic pathology, infections, inflammatory bowel disease, renal colic, as well as others were entertained. The patient is a 67-year-old male who presented to the emergency department for an evaluation of abdominal pain. The patient currently has a Miller catheter for bladder dysfunction. He states that it is normally changed every few weeks but he states that it is not been changed in the last 3 weeks. The patient denies having any fevers or chills. He denies having any hematuria. There is no trauma to the Miller catheter site as far as he knows. A Miller catheter was changed. The patient had good urine flow. The patient was encouraged to continue the medications as before and continue to follow-up with his primary care physician. He was also given Miller catheter care instructions. The patient also had a urinalysis sent with the new Miller catheter was placed. This appears to be consistent with urinary tract infection however since the patient is currently on an IV antibiotic I will wait until cultures are returned to determine if the patient requires a different antibiotic in addition to the one he is currently receiving. Medication Reconcilliation Current Medication List: was personally reviewed by me Blood Pressure Screening Patient's blood pressure: Normal blood pressure Impression Primary Impression: Urinary retention Additional Impressions: Malfunction of Miller catheter Urinary tract infection Scribe Attestation The scribe's documentation has been prepared under my direction and personally reviewed by me in its entirety. I confirm that the note above accurately reflects all work, treatment, procedures, and medical decision making performed by me. Departure Information Dispostion Home / Self-Care Referrals No Doctor, Assigned (PCP) Forms HOME CARE DOCUMENTATION FORM, IMPORTANT VISIT INFORMATION Patient Instructions Catheter Indwelling Urinary Dc, My [facility] [address] Additional Instructions Continue all medications as prescribed. Follow-up with your family doctor soon as possible. Problem Qualifiers Additional Impressions: Malfunction of Miller catheter Encounter type: initial encounter Qualified Codes: T83.011A - Breakdown ( mechanical) of indwelling urethral catheter, initial encounter Urinary tract infection Urinary tract infection type: catheter-associated UTI Indwelling urinary catheter type: indwelling urethral catheter Encounter type: sequela Qualified Codes: T83.511S - Infection and inflammatory reaction due to indwelling urethral catheter, sequela; N39.0 - Urinary tract infection, site not specified
[2017-07-04] MEDS ORDERED: METH-1305 PO (10:32)
[2017-07-04] MEDS ORDERED: SENN-61 PO (10:32)
[2017-07-04 11:02] VITALS: BP 164/82; PULSE 93; O2SAT 100
[2017-09-24] MEDS ORDERED: NVLGIPEN SC (11:56)
[2017-09-24] MEDS ORDERED: INSU100I2 SC (12:34)
[2017-10-22] MEDS ORDERED: SULF800T23 PO (14:37)
[2017-10-28] MEDS ORDERED: SULF800T23 PO (13:30)
[2017-11-26] MEDS ORDERED: NUTR-7 PO (01:24)
[2017-11-26] MEDS ORDERED: POLY335019 PO (01:24)
[2017-11-26] MEDS ORDERED: TPRSR50 PO (17:41)
[2017-11-26] MEDS ORDERED: GLIM2TAB2 PO (17:41)
[2017-11-26] MEDS ORDERED: NYST100033 (17:41)
[2017-11-26] MEDS ORDERED: GLC/500 PO (17:41)
[2017-12-16] MEDS ORDERED: ZSYI45 (11:04)
[2017-12-16] MEDS ORDERED: SULF800T23 PO (11:05)
[2018-01-04] MEDS ORDERED: PIPE1INJ11 IB (12:02)
[2018-01-04] MEDS ORDERED: DOXY-300 PO (12:02)
[2018-01-04] MEDS ORDERED: Piperacill/Tazobac Consult (12:02)
[2018-01-05] MEDS ORDERED: DOXY-300 PO (16:54)
[2018-01-05] MEDS ORDERED: PIPE1INJ11 IB (16:54)
[2018-01-09] MEDS ORDERED: INSDGIPEN SQ (10:11)
[2018-01-11] MEDS ORDERED: DOXY-300 PO (09:59)
[2018-01-11] MEDS ORDERED: PIPE1INJ11 IB (09:59)
[2018-01-11] MEDS ORDERED: PIPE1INJ11 IV (10:13)
[2018-02-25] MEDS ORDERED: DOXY-300 PO (14:41)
== END 2017-07-04 11:30 | disposition home or self-care (01) ==
LOC: EDBD 09:15 → C.EDA 09:17
DX: R33.9 Retention of urine, unspecified (principal); T83.011A Breakdown (mechanical) of indwelling urethral catheter, initial encounter; T83.511S Infection and inflammatory reaction due to indwelling urethral catheter, sequela; Y73.2 Prosthetic and other implants, materials and accessory gastroenterology and urology devices associated with adverse incidents; I10 Essential (primary) hypertension; Z87.891 Personal history of nicotine dependence; Z79.82 Long term (current) use of aspirin; Z79.4 Long term (current) use of insulin

== ENCOUNTER 2017-07-07 02:20 | Emergency (ER) | payer BC ==
[~2017-07-07 02:20] MED LIST changes: +METH-1305 PO; -PANT40TA PO; +SENN-61 PO
[2017-07-07] MEDS ORDERED: PIPE1INJ11 IV (03:18)
[2017-07-07 03:19] LABS: BASO % 0.6 %; BASO ABS # 0.06 K/uL (0-0.2); EOS % 11.8 %; EOS ABS # 1.24 K/uL (0-0.5); HEMATOCRIT 35.6 % (42-52); HEMOGLOBIN 11.8 g/dL (14.0-18.0); IG# 0.09 K/uL (0.00-0.02); LYMPH % 15.4 %; LYMPH ABS # 1.62 K/uL (1.2-3.4); MEAN CELL VOLUME 94.7 fL (80-100); MEAN CORPUSCULAR HEMOGLOBIN 31.4 pg (25-34); MEAN CORPUSCULAR HGB CONC 33.1 g/dl (32-36); MEAN PLATELET VOLUME 9.7 fL (7.4-10.4); MONO % 7.6 %; NEUT % 63.7 %; NEUT ABS # 6.73 K/uL (1.4-6.5); PLATELET COUNT 329 K/uL (130-400); RED CELL DISTRIBUTION WIDTH SD 51.5 fL (36.4-46.3); WHITE BLOOD COUNT 10.54 K/uL (4.8-10.8)
[2017-07-07 03:42] LABS: ALT/SGPT 35 U/L (12-78); AST/SGOT 27 U/L (15-37); BLOOD UREA NITROGEN 35 mg/dl (7-18); CALCIUM 8.7 mg/dl (8.5-10.1); CARBON DIOXIDE 32 mmol/L (21-32); CREATININE 1.46 mg/dl (0.60-1.40); GLUCOSE 247 mg/dl (70-99); POTASSIUM 3.8 mmol/L (3.5-5.1); SODIUM 138 mmol/L (136-145)
[2017-07-07 03:45] LABS: ALKALINE PHOSPHATASE 136 U/L (45-117); TOTAL PROTEIN 7.4 gm/dl (6.4-8.2)
[2017-07-07 05:54] VITALS: TEMP 37.1
[2017-07-07] MEDS ORDERED: METOPROLOL TARTRATE 25 MG TAB PO STA (06:11)
--- NOTE | 2017-07-07 07:04 | EMERGENCY ROOM VISIT NOTE ---
History Report prepared by Destiny: Tariq Cunningham Under the Supervision of: Dr. Martha Flores D.O. First contact with patient: 02:38 Chief Complaint: URINARY SYMPTOMS Stated Complaint: UTI - CATHETER History of Present Illness The patient is a 67 year old male who presents to the Emergency Room with complaints of persistent Hallman catheter problems. He was seen in the ED three days ago for similar symptoms. He has a chronic Hallman catheter in place and noticed that his bag was not filling up as of the past 1.5 hours. The patient also complains of abdominal pain and distension. Nursing staff notes that they bladder scanned the patient upon arrival and found him to have over 999 cc of urine. They straightened and cleared out the patient's catheter tubes, and his Hallman has begun draining successfully since. 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 He states that this occurred after a traumatic fall. He denies any fevers, chills, back pain, nausea, or vomiting. Nursing staff was concerned that the patient might be confused as he arrived in a tshirt and hospital socks carrying his hallman bag. Pt cooperative and appropriate for me during conversation. Source of History: patient, nursing staff Onset: 1.5 hours ago Quality: other (problem with Hallman catheter) Timing: other (persistent) Associated Symptoms: + abdominal pain, No fevers, No chills, No nausea, No vomiting, No back pain Note: Additional symptoms: abdominal distension. Review of Systems See HPI for pertinent positives & negatives. A total of 10 systems reviewed and were otherwise negative. Past Medical & Surgical Medical Problems: (1) Abscess (2) Acute renal insufficiency (3) ATN (acute tubular necrosis) (4) Hydronephrosis (5) Hypertension (6) Hypertension (7) Leukocytosis (8) MSSA (methicillin susceptible Staphylococcus aureus) septicemia (9) Recurrent UTI (10) Sepsis (11) Urinary tract infection Family History No pertinent family history Social History Smoking Status: Former Smoker Drug Use: none Marital Status: single Housing Status: lives alone Occupation Status: employed Current/Historical Medications Scheduled Aspirin (Aspirin Ec), 81 MG PO DAILY Atorvastatin (Lipitor), 40 MG PO DAILY Cholecalciferol (Vitamin D), 1,000 UNITS PO DAILY Clopidogrel (Plavix), 75 MG PO DAILY Cyanocobalamin (Vitamin B12), 1,000 MCG PO DAILY Folic Acid (Folvite), 1 MG PO DAILY Insulin Glargine (Lantus Solostar), 44 UNITS SQ QPM Lisinopril (Zestril), 2.5 MG PO DAILY Magnesium Oxide (Mag-Ox), 400 MG PO BID Methenamine Hippurate (Methenamine Hippurate), 1 GM PO BID Metoprolol Tartrate (Lopressor), 25 MG PO BID Piperacillin Sodium-Tazobactam (Zosyn), 3.375 GM IV DIRECTED Tamsulosin Hcl (Flomax), 0.4 MG PO HS Scheduled PRN Senna (Senokot), 1 TAB PO DAILY PRN for Constipation Allergies Coded Allergies: No Known Allergies (Unverified , 07/07/17) Physical Exam Vital Signs Date Time Temp Pulse Resp B/P (MAP) Pulse Ox O2 Delivery O2 Flow Rate FiO2 07/07/17 12:43 91 18 160/76 98 Room Air 07/07/17 11:46 90 18 138/70 96 Room Air 07/07/17 11:00 89 16 140/68 95 Room Air 07/07/17 09:30 91 16 130/58 95 Room Air 07/07/17 07:32 101 16 162/87 97 Room Air 07/07/17 05:54 37.1 116 157/83 94 Room Air 07/07/17 03:50 36.9 113 150/65 98 Room Air 07/07/17 02:27 36.4 123 20 152/107 98 Room Air Physical Exam GENERAL: alert, well appearing, well nourished, no distress, non-toxic. Indwelling Hallman catheter draining clear yellow urine. Sediment noted in urine. No hematuria or clots. EYE EXAM: normal conjunctiva, PERRL and EOM's grossly intact OROPHARYNX: no exudate, no erythema, lips, buccal mucosa, and tongue normal and mucous membranes are mildly dry. NECK: supple, no nuchal rigidity, no adenopathy, non-tender LUNGS: Clear to auscultation. Normal chest wall mechanics HEART: Tachycardic rate with a regular rhythm. No murmurs, S1 normal and S2 normal ABDOMEN: abdomen soft, non-tender, normo-active bowel sounds, no masses, no rebound or guarding. SKIN: no rashes and no bruising UPPER EXTREMITIES: upper extremities are grossly normal. LOWER EXTREMITIES: No pitting edema. NEURO EXAM: Normal sensorium, cranial nerves II-XII grossly intact, normal speech, no gross weakness of arms, no gross weakness of legs. Medical Decision & Procedures Laboratory Results 07/07/17 03:06 Red Blood Count 3.76, Mean Corpuscular Volume 94.7, Mean Corpuscular Hemoglobin 31.4, Mean Corpuscular Hemoglobin Concent 33.1, Mean Platelet Volume 9.7, Neutrophils (%) (Auto) 63.7, Lymphocytes (%) (Auto) 15.4, Monocytes (%) (Auto) 7.6, Eosinophils (%) (Auto) 11.8, Basophils (%) (Auto) 0.6, Neutrophils # (Auto ) 6.73, Lymphocytes # (Auto) 1.62, Monocytes # (Auto) 0.80, Eosinophils # (Auto ) 1.24, Basophils # (Auto) 0.06 07/07/17 03:06 Test 07/07/17 03:06 White Blood Count 10.54 K/uL (4.8-10.8) Red Blood Count 3.76 M/uL (4.7-6.1) Hemoglobin 11.8 g/dL (14.0-18.0) Hematocrit 35.6 % (42-52) Mean Corpuscular Volume 94.7 fL (80-100) Mean Corpuscular Hemoglobin 31.4 pg (25-34) Mean Corpuscular Hemoglobin Concent 33.1 g/dl (32-36) Platelet Count 329 K/uL (130-400) Mean Platelet Volume 9.7 fL (7.4-10.4) Neutrophils (%) (Auto) 63.7 % Lymphocytes (%) (Auto) 15.4 % Monocytes (%) (Auto) 7.6 % Eosinophils (%) (Auto) 11.8 % Basophils (%) (Auto) 0.6 % Neutrophils # (Auto) 6.73 K/uL (1.4-6.5) Lymphocytes # (Auto) 1.62 K/uL (1.2-3.4) Monocytes # (Auto) 0.80 K/uL (0.11-0.59) Eosinophils # (Auto) 1.24 K/uL (0-0.5) Basophils # (Auto) 0.06 K/uL (0-0.2) RDW Standard Deviation 51.5 fL (36.4-46.3) RDW Coefficient of Variation 15.0 % (11.5-14.5) Immature Granulocyte % (Auto) 0.9 % Immature Granulocyte # (Auto) 0.09 K/uL (0.00-0.02) Prothrombin Time 10.1 SECONDS (9.0-12.0) Prothromb Time International Ratio 1.0 (0.9-1.1) Anion Gap 2.0 mmol/L (3-11) Estimated GFR () 56.1 Estimated GFR (Non- 48.4 BUN/Creatinine Ratio 24.1 (10-20) Lactic Acid Level 2.0 mmol/L (0.4-2.0) Calcium Level 8.7 mg/dl (8.5-10.1) Magnesium Level 2.2 mg/dl (1.8-2.4) Total Bilirubin 0.3 mg/dl (0.2-1) Aspartate Amino Transf (AST/SGOT) 27 U/L (15-37) Alanine Aminotransferase (ALT/SGPT) 35 U/L (12-78) Alkaline Phosphatase 136 U/L (45-117) Total Creatine Kinase 43 U/L (39-308) Creatine Kinase MB 2.8 ng/ml (0.5-3.6) Creatine Kinase MB Ratio 6.5 (0-3.0) Total Protein 7.4 gm/dl (6.4-8.2) Albumin 3.0 gm/dl (3.4-5.0) Globulin 4.4 gm/dl (2.5-4.0) Albumin/Globulin Ratio 0.7 (0.9-2) Laboratory results per my review. Medications Administered Medications (Trade) Dose Ordered Sig/Nilda Route Start Time Stop Time Status Last Admin Dose Admin Metoprolol Tartrate (Lopressor Tab) 25 mg NOW STAT PO 07/07/17 06:11 07/07/17 06:12 DC 07/07/17 06:25 25 MG Alteplase, Recombinant (Activase Cathflo) 2 mg ONE ONCE IV 07/07/17 10:30 07/07/17 10:31 DC 07/07/17 11:30 2 MG ED Course 0242: The patient was evaluated in room A12B. A complete history and physical exam was performed. The patient has drained about two liters of urine into his Hallman bag. 0345: Pt reports no symptoms at this time. Abd soft/NT. Mild tachycardia still noted, VS otw stable. Pt denies pain. Drinking water at bedside. Urine now with pink tinge. 0700: Hallman continues to drain well, pink tinge noted. VS stable. Pt given morning metoprolol. 0718: Pt asleep. HR 110. [place] tinge to urine draining into hallman. No clots. Medical Decision Differential diagnosis: Etiologies such as urinary retention, Hallman catheter malfunction, renal colic, appendicitis, diverticulitis, mesenteric ischemia, aortic pathology, infections , inflammatory bowel disease, PUD, biliary pathology, UTI, as well as others were entertained. Patient, and cooperative here throughout, likely originally agitated due to severe discomfort from severe bladder distention due to blocked Hallman catheter. She monitor for several hours due to large amount of urine drained. Initial urine drained was clear and yellow, subsequent drainage after that began to have a slight pink tinge. I feel this is most likely due to irritation from bladder distention the catheter combined with the patient's use of aspirin and Plavix. Patient's creatinine stable compared to prior, H&H stable, no evidence of bacteremia/sepsis. Vital signs improved with continued monitoring here, and patient tolerating by mouth well without nausea or vomiting. Patient's catheter was just changed 4 days ago, decision made to not change it again as this would result in additional trauma. Catheter easily unblocked with a small amount of saline infusion and aspiration. Likely small amount of sedimentation blocking the catheter given sediment noted in the tubing. Ultrasound ordered as a precaution given the no recent imaging has been out of the patient's renal system despite a chronic indwelling catheter and several recent catheter problems. Provided there are no other acute abnormalities noted on ultrasound, I feel patient is stable for discharge to follow-up with his urologist is now patient. Medication Reconcilliation Current Medication List: was personally reviewed by me Blood Pressure Screening Patient's blood pressure: Elevated blood pressure Blood pressure disposition: Referred to PCP Impression Primary Impression: Hallman catheter problem Additional Impression: Hematuria Scribe Attestation The scribe's documentation has been prepared under my direction and personally reviewed by me in its entirety. I confirm that the note above accurately reflects all work, treatment, procedures, and medical decision making performed by me. Departure Information Dispostion Home / Self-Care Referrals Barb Gray M.D. (PCP) Patient Instructions My [facility] Additional Instructions Please follow-up with your urologist regarding your hallman catheter. Please continue your routine medications as prescribed and have your visiting nurse continue monitoring your hallman as well as your other wounds. If you notice blood in the hallman, feel it isn't draining appropriately, develop abdominal pain , back pain, vomiting, fevers or chills, dizziness, trouble breathing, or you have any other new or concerning symptoms, please return to the emergency room. Problem Qualifiers Primary Impression: Hallman catheter problem Encounter type: initial encounter Qualified Codes: T83.9XXA - Unspecified complication of genitourinary prosthetic device, implant and graft, initial encounter Additional Impression: Hematuria Hematuria type: gross Qualified Codes: R31.0 - Gross hematuria
--- NOTE | 2017-07-07 08:54 | DIAGNOSTIC IMAGING REPORT ---
EXAMINATION: RENAL ULTRASOUND CLINICAL HISTORY: Hematuria COMPARISON STUDY: CT scan dated 05/14/2017 FINDINGS: The right kidney measures 12.8 cm. The left kidney measures 12 cm. There is mild prominence of the left renal pelvis. No solid renal masses are visualized. There is a shadowing focus arising from the midpole the left kidney. This could represent a calculus, or vascular calcification as was visualized the prior CT scan. There is trace perinephric fluid. There is slight increase in renal cortical echogenicity suggesting medical renal disease. The bladder was empty at the time scanning. There is an indwelling Miller catheter. IMPRESSION : 1. Mild prominence left renal pelvis 2. Trace bilateral perinephric fluid 3. Shadowing focus arising from the midpole the left kidney. This could represent a calculus or vascular calcification 4. Slight increase in renal cortical echogenicity suggesting medical renal disease. Electronically signed by: Houston Marques M.D. 07/07/2017 8:53 AM Dictated Date/Time: 07/07/2017 8:49 AM
--- NOTE | 2017-07-07 09:36 | EMERGENCY ROOM VISIT NOTE ---
ED Visit Note This patient was signed out to me awaiting ultrasound of the renal system. This showed: 1. Mild prominence left renal pelvis 2. Trace bilateral perinephric fluid 3. Shadowing focus arising from the midpole the left kidney. This could represent a calculus or vascular calcification 4. Slight increase in renal cortical echogenicity suggesting medical renal disease. The patient's main problem was a clogged Miller catheter. His bladder was drained. On reassessment he is feeling better. He was told the results. He is felt to be stable for discharge.
--- NOTE | 2017-07-07 10:17 | NUR ---
CWOCN: RECEIVED REQUEST TO ASSIST WITH DRESSING CHANGES TO LEFT HEEL AND COCCYX WOUNDS. PATIENT IS FOLLOW[facility] BY [facility] FOUND BOTH WOUNDS WITHOUT DRESSINGS. LARGE ESCHAR ON LEFT HEEL DRY, FIRM, NO DRAINAGE NOTED. COCCYX WOUND WITH MILD MACERATION SURROUNDING SITE. DRESSING THAT WAS REMOVED IS ON BEDDING, APPEARS THAT AQUACEL AG IS JUST BEING LAID ON SURFACE OF WOUND. WOUND IS ALMOST 1CM DEEP. CUT STRIP OF AQUACEL AG AND GENTLY PUSHED INTO WOUND OPENING, COVERED MACERATED AREA WITH 2ND PIECE OF FOAM AND APPLIED OPTIFOAM GENTLE. SPENT 10 MINUTES WITH PATIENT.
[2017-07-07] MEDS ORDERED: ALTEPLASE, RECOMBINANT 1 MG/ML 2 ML VIAL IV ONE (10:30)
[2017-07-07 12:43] VITALS: BP 160/76; PULSE 91; O2SAT 98
[2017-07-08 08:37] LABS: CKMB 2.8 ng/ml (0.5-3.6)
[2017-09-24] MEDS ORDERED: NVLGIPEN SC (11:56)
[2017-09-24] MEDS ORDERED: INSU100I2 SC (12:34)
[2017-10-22] MEDS ORDERED: SULF800T23 PO (14:37)
[2017-10-28] MEDS ORDERED: SULF800T23 PO (13:30)
[2017-11-26] MEDS ORDERED: NUTR-7 PO (01:24)
[2017-11-26] MEDS ORDERED: POLY335019 PO (01:24)
[2017-11-26] MEDS ORDERED: GLIM2TAB2 PO (17:41)
[2017-11-26] MEDS ORDERED: TPRSR50 PO (17:41)
[2017-11-26] MEDS ORDERED: NYST100033 (17:41)
[2017-11-26] MEDS ORDERED: GLC/500 PO (17:41)
[2017-12-16] MEDS ORDERED: ZSYI45 (11:04)
[2017-12-16] MEDS ORDERED: SULF800T23 PO (11:05)
[2018-01-04] MEDS ORDERED: PIPE1INJ11 IB (12:02)
[2018-01-04] MEDS ORDERED: Piperacill/Tazobac Consult (12:02)
[2018-01-04] MEDS ORDERED: DOXY-300 PO (12:02)
[2018-01-05] MEDS ORDERED: DOXY-300 PO (16:54)
[2018-01-05] MEDS ORDERED: PIPE1INJ11 IB (16:54)
[2018-01-09] MEDS ORDERED: INSDGIPEN SQ (10:11)
[2018-01-11] MEDS ORDERED: PIPE1INJ11 IB (09:59)
[2018-01-11] MEDS ORDERED: DOXY-300 PO (09:59)
[2018-01-11] MEDS ORDERED: PIPE1INJ11 IV (10:13)
[2018-02-25] MEDS ORDERED: DOXY-300 PO (14:41)
== END 2017-07-07 13:05 | disposition home or self-care (01) ==
LOC: C.EDB 02:21 → C.EDA 13:05
DX: T83.098A Other mechanical complication of other urinary catheter, initial encounter (principal); X58.XXXA Exposure to other specified factors, initial encounter; I10 Essential (primary) hypertension; Z87.440 Personal history of urinary (tract) infections; Z86.14 Personal history of Methicillin resistant Staphylococcus aureus infection; Z87.891 Personal history of nicotine dependence; Z79.82 Long term (current) use of aspirin; Z79.4 Long term (current) use of insulin; Z79.899 Other long term (current) drug therapy

== ENCOUNTER 2017-07-07 22:52 | Emergency (ER) | payer BC, OTHER ==
[~2017-07-07] VITALS: Ht 182.9 cm; Wt 70.3 kg
[~2017-07-07 22:52] MED LIST changes: +PIPE1INJ11 IV
[2017-07-07 22:53] VITALS: TEMP 36.7; Ht 182.9 cm; Wt 70.3 kg
--- NOTE | 2017-07-07 23:14 | EMERGENCY ROOM VISIT NOTE ---
History Report prepared by Mayibsejal: Mitzy Gutierrez Under the Supervision of: Dr. Benji Cleary M.D. First contact with patient: 22:57 Chief Complaint: URINARY SYMPTOMS Stated Complaint: UTI History of Present Illness The patient is a 67 year old male who presents to the Emergency Room with complaints of a Hallman catheter malfunction for the past 1 hour. He has an indwelling Hallman catheter but states he cannot remember how long it has been in place. He also has a PICC line in place where he receives IV antibiotics for a history of osteomyelitis. His PCP is Dr. Gray, but he "hardly ever sees him" and "cannot remember who gives me the antibiotics". The patient was seen here in the ED early this morning for the same symptoms. He states he was discharged home feeling well this morning after his Hallman started draining again. The patient reports he lives alone. He came to the ED via taxi and was wearing just a T-shirt and depends when he arrived to the ED. He states he was only exposed to the cold weather for approximately 15 seconds and "does not think it's that cold outside". The patient reports he came to the ED this evening mainly because he believes the catheter is not draining urine completely. He believes this started approximately 1 hour [employer]. He denies any recent fevers, nausea, vomiting or diarrhea. He has minimal abdominal discomfort because of his urinary retention. On review from recent visit notes, the patient is on Zosyn for a history of osteomyelitis of the coccyx. Source of History: patient Onset: 1 hour [employer] Position: pelvis (urinary system) Timing: other (persistent) Associated Symptoms: + abdominal pain, No fevers, No nausea, No vomiting, No diarrhea Review of Systems See HPI for pertinent positives and negatives. A total of ten systems were reviewed and were otherwise negative. Past Medical & Surgical Medical Problems: (1) Abscess (2) Acute renal insufficiency (3) ATN (acute tubular necrosis) (4) Hydronephrosis (5) Hypertension (6) Hypertension (7) Leukocytosis (8) MSSA (methicillin susceptible Staphylococcus aureus) septicemia (9) Recurrent UTI (10) Sepsis (11) Urinary tract infection Family History No pertinent family history Social History Smoking Status: Never Smoker Alcohol Use: none Drug Use: none Marital Status: single Housing Status: lives alone Occupation Status: retired Current/Historical Medications Scheduled Aspirin (Aspirin Ec), 81 MG PO DAILY Atorvastatin (Lipitor), 40 MG PO DAILY Cholecalciferol (Vitamin D), 1,000 UNITS PO DAILY Clopidogrel (Plavix), 75 MG PO DAILY Cyanocobalamin (Vitamin B12), 1,000 MCG PO DAILY Folic Acid (Folvite), 1 MG PO DAILY Insulin Glargine (Lantus Solostar), 44 UNITS SQ QPM Lisinopril (Zestril), 2.5 MG PO DAILY Magnesium Oxide (Mag-Ox), 400 MG PO BID Methenamine Hippurate (Methenamine Hippurate), 1 GM PO BID Metoprolol Tartrate (Lopressor), 25 MG PO BID Piperacillin Sodium-Tazobactam (Zosyn), 3.375 GM IV DIRECTED Tamsulosin Hcl (Flomax), 0.4 MG PO HS Scheduled PRN Senna (Senokot), 1 TAB PO DAILY PRN for Constipation Allergies Coded Allergies: No Known Allergies (Unverified , 07/07/17) Physical Exam Vital Signs Date Time Temp Pulse Resp B/P (MAP) Pulse Ox O2 Delivery O2 Flow Rate FiO2 07/08/17 02:13 104 16 159/80 98 Room Air 07/08/17 00:36 106 18 186/100 98 Room Air 07/07/17 23:09 110 07/07/17 22:53 36.7 120 20 137/71 99 Room Air Physical Exam GENERAL: Awake, alert, cachectic-appearing, in no distress HENT: Normocephalic, atraumatic. Oropharynx unremarkable. Dry mucous membranes. EYES: Normal conjunctiva. Sclera non-icteric. NECK: Supple. No nuchal rigidity. FROM. No JVD. RESPIRATORY: Clear to auscultation. CARDIAC: Regular rate, normal rhythm. Extremities warm and well perfused. Pulses equal. ABDOMEN: Suprapubic fullness with mild tenderness, no peritoneal signs. Soft, non-distended. No rebound or guarding. No masses. RECTAL: Deferred. MUSCULOSKELETAL: Chest examination reveals no tenderness. The back is symmetrical on inspection without obvious abnormality. There is no CVA tenderness to palpation. No joint edema. LOWER EXTREMITIES: Calves are equal size bilaterally and non-tender. No edema. No discoloration. NEURO: Normal sensorium. No sensory or motor deficits noted. SKIN: No rash or jaundice noted. Medical Decision & Procedures ER Provider Diagnostic Interpretation: Radiology results as stated below per my review and radiologist interpretation: CT ABDOMEN & PELVIS Without Contrast: Comparison: CT dated 05/14/2017. Hallman catheter within a moderately distended bladder, which contains air. mild diffuse bladder wall thickening may be infectious in origin. worsened and now severe bilateral hydronephrosis with slightly increased perinephric stranding as well as new air within the left renal collecting system and pelvis. worsened now severe bilateral hydroureter. Air within the left kidney may be of infectious origin or be secondary to recent instrumentation. Stable moderate retroperitoneal lymphadenopathy Subcutaneous fluid collection fat stranding just inferior to the coccygeal tip has decreased in size, currently measuring 16 x 23 mm, previously 20 x 28 mm. There is reidentified irregularity to the tip of the coccyx that may represent osteomyelitis and/or fracture. extensive cholelithiasis within a nondistended gallbladder. No free air, free fluid, or bowel obstruction. Nonvisualization of the appendix. No pericecal inflammatory changes. Small gastric diverticulum, stable. Colonic diverticulosis. Moderate fecal material throughout the colon. Rectum is not significantly distended. Radiologist: Christen Mcfarland M.D. Laboratory Results 07/07/17 23:20 Red Blood Count 3.87, Mean Corpuscular Volume 94.1, Mean Corpuscular Hemoglobin 31.0, Mean Corpuscular Hemoglobin Concent 33.0, Mean Platelet Volume 10.1, Neutrophils (%) (Auto) 65.2, Lymphocytes (%) (Auto) 13.5, Monocytes (%) (Auto) 8.6, Eosinophils (%) (Auto) 11.9, Basophils (%) (Auto) 0.3, Neutrophils # (Auto ) 7.56, Lymphocytes # (Auto) 1.57, Monocytes # (Auto) 1.00, Eosinophils # (Auto ) 1.38, Basophils # (Auto) 0.04 07/07/17 23:20 Test 07/07/17 23:20 White Blood Count 11.61 K/uL (4.8-10.8) Red Blood Count 3.87 M/uL (4.7-6.1) Hemoglobin 12.0 g/dL (14.0-18.0) Hematocrit 36.4 % (42-52) Mean Corpuscular Volume 94.1 fL (80-100) Mean Corpuscular Hemoglobin 31.0 pg (25-34) Mean Corpuscular Hemoglobin Concent 33.0 g/dl (32-36) Platelet Count 365 K/uL (130-400) Mean Platelet Volume 10.1 fL (7.4-10.4) Neutrophils (%) (Auto) 65.2 % Lymphocytes (%) (Auto) 13.5 % Monocytes (%) (Auto) 8.6 % Eosinophils (%) (Auto) 11.9 % Basophils (%) (Auto) 0.3 % Neutrophils # (Auto) 7.56 K/uL (1.4-6.5) Lymphocytes # (Auto) 1.57 K/uL (1.2-3.4) Monocytes # (Auto) 1.00 K/uL (0.11-0.59) Eosinophils # (Auto) 1.38 K/uL (0-0.5) Basophils # (Auto) 0.04 K/uL (0-0.2) RDW Standard Deviation 50.8 fL (36.4-46.3) RDW Coefficient of Variation 15.0 % (11.5-14.5) Immature Granulocyte % (Auto) 0.5 % Immature Granulocyte # (Auto) 0.06 K/uL (0.00-0.02) Anion Gap 6.0 mmol/L (3-11) Est Creatinine Clear Calc Drug Dose 42.8 ml/min Estimated GFR () 49.5 Estimated GFR (Non- 42.7 BUN/Creatinine Ratio 20.2 (10-20) Calcium Level 8.8 mg/dl (8.5-10.1) Beta-Hydroxybutyric Acid 1.74 mg/dL (0.2-2.81) Laboratory results reviewed by me Medications Administered Medications (Trade) Dose Ordered Sig/Nilda Route Start Time Stop Time Status Last Admin Dose Admin Sodium Chloride 1,000 ml @ 999 mls/hr Q1H1M STAT IV 07/08/17 00:10 07/08/17 01:10 DC 07/08/17 00:26 999 MLS/HR ED Course 2305: The patient was evaluated in room A10. A complete history and physical exam was performed. 0210: I reevaluated the patient. He is feeling well and resting comfortably. I discussed his results and discharge instructions and he verbalized complete understanding and agreement. Medical Decision I reviewed the patient's past medical history, medications, and the nursing notes as described above. Differential Diagnoses: Obstructed urinary catheter, ureteral stone, UTI and pyelonephritis. The patient is 67 y/o gentlemen with a pmhx of chronic indwelling hallman catheter and osteomyelitis currently being treated outpatient with IV Zosyn presents to the emergency department for the 3rd time in 4 days for urinary retention 2/2 obstructed hallman per HPI. On arrival the patient is well- appearing in NAD, AF, HR 120s. On exam the patient is clinically dry with suprapubic fullness. Bladder scan demonstrated 1L of urine, which was subsequently drained after flushing catheter. WBC and Cr marginally elevated from yesterday's ED visit. Thus, CT abd/pel done given hydro on US yesterday. CT demonstrate worsening hydro from prior CT however in the setting of patient' s recurrent hallman catheter obstruction. CT also demonstrated moderately distended blader on CT scan despite prior flushing of hallman. Hallman was subsequently replaced and bladder was completely drained. Thus while CT demonstrate worsening, etiology has been addressed. Additionally, UA from 07/04 only growing non-candidal yeast. Thus UA not repeated today. Moreover, patient is already on Zosyn for his osteo, which did show interval improvement. Otherwise, BUN/Cr > 20 suggesting mild dehydration. Given IVF with improvement in HR to 90-100s. Plan for pcp f/u. Of note, patient has history of bizzarre behavior (e.g. came to ED today in tax with no pants (only a diaper) because it is too hard to put on pants with his catheter) and poor compliance thus CM assisting to help set up f/u with patient pcp regarding CT findings and recurrent hallman obstruction. Findings and plan for follow-up reviewed with patient. Patient agreeable and d/c'd per discharge instructions. Medication Reconcilliation Current Medication List: was personally reviewed by me Blood Pressure Screening Patient's blood pressure: Elevated blood pressure Blood pressure disposition: Referred to PCP Impression Primary Impression: Malfunction of Hallman catheter Additional Impression: Hydronephrosis due to obstruction of bladder Scribe Attestation The scribe's documentation has been prepared under my direction and personally reviewed by me in its entirety. I confirm that the note above accurately reflects all work, treatment, procedures, and medical decision making performed by me. Departure Information Dispostion Home / Self-Care Referrals Barb Gray M.D. (PCP) Patient Instructions ED Catheter Care Hallman, ED Retention Urinary Male, My [facility] Additional Instructions Please follow up with your primary care physician tomorrow for re-evaluation. You were found to have worse hydronephrosis due to your catheter obstruction. We replaced your catheter and it was functioning properly. Otherwise, your exam and lab results did not show signs of an emergent condition at this time. Continue your current outpatient IV antibiotics. Return to the emergency department for repeating obstruction of your catheter, fevers, chills, abdominal pain. Problem Qualifiers
[2017-07-07 23:31] LABS: BASO % 0.3 %; BASO ABS # 0.04 K/uL (0-0.2); EOS % 11.9 %; EOS ABS # 1.38 K/uL (0-0.5); HEMATOCRIT 36.4 % (42-52); IG# 0.06 K/uL (0.00-0.02); LYMPH % 13.5 %; LYMPH ABS # 1.57 K/uL (1.2-3.4); MEAN CELL VOLUME 94.1 fL (80-100); MEAN PLATELET VOLUME 10.1 fL (7.4-10.4); MONO % 8.6 %; NEUT % 65.2 %; NEUT ABS # 7.56 K/uL (1.4-6.5); PLATELET COUNT 365 K/uL (130-400); RED CELL DISTRIBUTION WIDTH SD 50.8 fL (36.4-46.3); WHITE BLOOD COUNT 11.61 K/uL (4.8-10.8)
[2017-07-07 23:44] LABS: CALCIUM 8.8 mg/dl (8.5-10.1); CREATININE 1.62 mg/dl (0.60-1.40); POTASSIUM 3.7 mmol/L (3.5-5.1)
[2017-07-08] MEDS ORDERED: SODIUM CHLORIDE 0.9% 1000ML 1,000 ML IV STA (00:10)
[2017-07-08 02:13] VITALS: BP 159/80; PULSE 104; O2SAT 98
--- NOTE | 2017-07-08 07:25 | DIAGNOSTIC IMAGING REPORT ---
CT SCAN OF THE ABDOMEN AND PELVIS WITHOUT IV CONTRAST CLINICAL HISTORY: Generalized abdominal pain. COMPARISON STUDY: Abdominal CT dated 05/14/2017. TECHNIQUE: CT scan of the abdomen and pelvis is performed from the lung bases to the proximal femora. Images are reviewed in the axial, sagittal, and coronal planes. IV contrast was not administered for this examination as per the referring clinician. Note that the examination was performed in suboptimal fashion without oral and IV contrast. A dose lowering technique was utilized adhering to the principles of ALARA. CT DOSE: 664.04 mGy.cm FINDINGS: Lung bases: The heart is normal in size and without pericardial effusion. The coronary arteries are densely calcified. Mild pericardial thickening is noted. There is a tiny hiatal hernia. Emphysematous change is suspected. Scarring versus atelectasis is present at both lung bases. No airspace consolidation or pleural effusion is identified. Liver: The unenhanced liver is normal in size, contour, and attenuation. There is no intrahepatic biliary ductal dilatation. Gallbladder: There are numerous calcified gallstones. There is no CT evidence of acute cholecystitis. Spleen: Normal in size and attenuation. Pancreas: The unenhanced pancreas is moderately atrophic and grossly unremarkable. Adrenal glands: Unremarkable. Kidneys: The unenhanced kidneys are normal in size. There is moderate to severe bilateral hydroureteronephrosis. The ureters are dilated to the level of the bladder. Foci of gas are present throughout the left renal collecting system. There is extensive bilateral perinephric stranding as well as trace perinephric fluid. Urothelial thickening is noted throughout the ureters. A punctate nonobstructing calculus is seen on the right (image #191). There is no evidence of contour deforming renal mass lesion. Abdominal vasculature: The abdominal aorta is normal in course and caliber noting moderate to advanced atherosclerotic calcification. Bowel: There is a small gastric diverticulum identified on image #112. There is moderate to severe constipation. No bowel obstruction is seen. There is mild colonic diverticulosis without CT evidence of acute diverticulitis. The appendix is normal as visualized. Peritoneum: There is trace perihepatic ascites. No intraperitoneal free air is seen. Lymphadenopathy: Mildly enlarged retroperitoneal lymph nodes are similar to previous. The largest in the left periaortic region and measure up to 12 mm short axis as seen on image #192. Pelvic viscera: A Miller catheter is in place. The bladder is markedly distended. Intraluminal gas is present. The prostate gland is normal as visualized. Skeletal structures: No lytic or blastic lesions are seen. There are healed bilateral rib fractures. Mild lumbosacral spondylosis is observed. A 2.1 cm fluid collection is again seen inferior to the tip of the coccyx on image #476. Mild erosive change is suggested involving the tip of the coccyx. IMPRESSION: 1. The bladder is markedly distended and there are foci of intraluminal gas. A Miller catheter is in place. Correlate with urinalysis for evidence of cystitis. 2. There is moderate to severe bilateral hydroureteronephrosis. The ureters are dilated to the level of the bladder, and this may be related to bladder obstruction. 3. Hydronephrosis has worsened and there is increasing inflammatory stranding and perinephric fluid is compared to 05/14/2017. Foci of gas are present within the left ureter and the left renal collecting system which may be related to infection or instrumentation. Correlate clinically and urinalysis for evidence of pyelonephritis. Pyelonephritis may be emphysematous on the left. 4. Mildly enlarged retroperitoneal lymph nodes are similar to previous. 5. A 2.1 cm fluid collection is again seen inferior to the tip of the coccyx. Erosive change is suggested at the tip of the coccyx and may represent osteomyelitis. 6. Cholelithiasis. 7. Trace abdominal ascites. 8. Moderate to severe constipation. 9. Additional findings as above. Electronically signed by: Moi Almazan M.D. 07/08/2017 7:23 AM Dictated Date/Time: 07/08/2017 7:04 AM
[2017-09-24] MEDS ORDERED: NVLGIPEN SC (11:56)
[2017-09-24] MEDS ORDERED: INSU100I2 SC (12:34)
[2017-10-22] MEDS ORDERED: SULF800T23 PO (14:37)
[2017-10-28] MEDS ORDERED: SULF800T23 PO (13:30)
[2017-11-26] MEDS ORDERED: POLY335019 PO (01:24)
[2017-11-26] MEDS ORDERED: NUTR-7 PO (01:24)
[2017-11-26] MEDS ORDERED: GLC/500 PO (17:41)
[2017-11-26] MEDS ORDERED: GLIM2TAB2 PO (17:41)
[2017-11-26] MEDS ORDERED: NYST100033 (17:41)
[2017-11-26] MEDS ORDERED: TPRSR50 PO (17:41)
[2017-12-16] MEDS ORDERED: ZSYI45 (11:04)
[2017-12-16] MEDS ORDERED: SULF800T23 PO (11:05)
[2018-01-04] MEDS ORDERED: DOXY-300 PO (12:02)
[2018-01-04] MEDS ORDERED: Piperacill/Tazobac Consult (12:02)
[2018-01-04] MEDS ORDERED: PIPE1INJ11 IB (12:02)
[2018-01-05] MEDS ORDERED: DOXY-300 PO (16:54)
[2018-01-05] MEDS ORDERED: PIPE1INJ11 IB (16:54)
[2018-01-09] MEDS ORDERED: INSDGIPEN SQ (10:11)
[2018-01-11] MEDS ORDERED: PIPE1INJ11 IB (09:59)
[2018-01-11] MEDS ORDERED: DOXY-300 PO (09:59)
[2018-01-11] MEDS ORDERED: PIPE1INJ11 IV (10:13)
[2018-02-25] MEDS ORDERED: DOXY-300 PO (14:41)
== END 2017-07-08 02:44 | disposition home or self-care (01) ==
LOC: C.EDB 22:53 → C.EDA 07-08 02:44
DX: T83.018A Breakdown (mechanical) of other urinary catheter, initial encounter (principal); Y84.6 Urinary catheterization as the cause of abnormal reaction of the patient, or of later complication, without mention of misadventure at the time of the procedure; N13.30 Unspecified hydronephrosis; N32.0 Bladder-neck obstruction; M86.9 Osteomyelitis, unspecified; R33.9 Retention of urine, unspecified; I10 Essential (primary) hypertension; Z87.440 Personal history of urinary (tract) infections; Z79.02 Long term (current) use of antithrombotics/antiplatelets; Z79.2 Long term (current) use of antibiotics; Z79.82 Long term (current) use of aspirin; Z79.899 Other long term (current) drug therapy

== ENCOUNTER 2017-07-08 17:11 | Emergency (ER) | payer BC ==
[~2017-07-08] VITALS: Ht 182.9 cm; Wt 70.0 kg
[~2017-07-08 17:11] MED LIST changes: +PANT40TA PO
[2017-07-08 17:23] VITALS: TEMP 37; Ht 182.9 cm; Wt 70.0 kg
--- NOTE | 2017-07-08 19:18 | EMERGENCY ROOM VISIT NOTE ---
ED Visit Note First contact with patient: 18:59 Resident Physician Supervision Note: I interviewed and examined the patient. Discussed with Dr. Lama and agree with findings and plan as documented in the note. Documented By: Jeff Mota Problem List Medical Problems: (1) Hypertension Status: Chronic Current/Historical Medications Scheduled Aspirin (Aspirin Ec), 81 MG PO DAILY Atorvastatin (Lipitor), 40 MG PO DAILY Cholecalciferol (Vitamin D), 1,000 UNITS PO DAILY Clopidogrel (Plavix), 75 MG PO DAILY Cyanocobalamin (Vitamin B12), 1,000 MCG PO DAILY Folic Acid (Folvite), 1 MG PO DAILY Insulin Glargine (Lantus Solostar), 44 UNITS SQ QPM Lisinopril (Zestril), 2.5 MG PO DAILY Magnesium Oxide (Mag-Ox), 400 MG PO BID Methenamine Hippurate (Methenamine Hippurate), 1 GM PO BID Metoprolol Tartrate (Lopressor), 25 MG PO BID Piperacillin Sodium-Tazobactam (Zosyn), 3.375 GM IV DIRECTED Tamsulosin Hcl (Flomax), 0.4 MG PO HS Scheduled PRN Senna (Senokot), 1 TAB PO DAILY PRN for Constipation Allergies Coded Allergies: No Known Allergies (Unverified , 07/07/17) Vital Signs Date Time Temp Pulse Resp B/P (MAP) Pulse Ox O2 Delivery O2 Flow Rate FiO2 07/08/17 17:23 37.0 95 17 109/81 98 Room Air Departure Information Referrals Barb Gray M.D. (PCP) Patient Instructions My [facility]
--- NOTE | 2017-07-08 20:42 | EMERGENCY ROOM VISIT NOTE ---
History First contact with patient: 18:59 Chief Complaint: CATHETER REPLACEMENT Stated Complaint: CATH IS BLOCKED History of Present Illness The patient is a 67 year old male who presents to the Emergency Room with complaints of abdominal pain secondary to his catheter being blocked. He was here in the emergency yesterday for a similar issue. He had the catheter flushed yesterday and it subsequently unblocked and drained spontaneously. He was organized to have an appointment with his PCP which will be tomorrow. The catheter was originally placed several weeks ago due to urinary incontinence secondary to a UTI and since then he has failed a voiding trail and has had the hallman catheter in place. He has also been having IV antibiotics through a PICC line for a osteomyelitis infection and has been following with Dr. Wood as an outpatient. He lives on his own and has home health come to his home once every 2 days Review of Systems CONSTITUTIONAL: No fever, chills, sweats or night sweats. No recent infections. No weight loss or weight gain. NEUROLOGIC: No headaches, dizziness or syncopal episodes. HEENT: No hearing or visual changes. No sinus or nasal issues. No mouth sores, thrush or oral lesions. CARDIOVASCULAR: No chest pain or palpitations. RESPIRATORY: No SOB, dyspnea, cough or hemoptysis. GASTROINTESTINAL: No nausea, vomiting, diarrhea, constipation, reflux, melena or hematochezia. has had abdominal pain SKIN: No rashes or skin lesions. No hair loss or nail changes. HEMATOLOGIC: No bleeding or abnormal bruising Past Medical/Surgical History Medical Problems: (1) Abscess (2) Acute renal insufficiency (3) ATN (acute tubular necrosis) (4) Hydronephrosis (5) Hypertension (6) Hypertension (7) Leukocytosis (8) MSSA (methicillin susceptible Staphylococcus aureus) septicemia (9) Recurrent UTI (10) Sepsis (11) Urinary tract infection Family History No pertinent family history Social History Smoking Status: Former Smoker Alcohol Use: none Drug Use: none Marital Status: single Housing Status: lives alone Occupation Status: retired Current/Historical Medications Scheduled Aspirin (Aspirin Ec), 81 MG PO DAILY Atorvastatin (Lipitor), 40 MG PO DAILY Cholecalciferol (Vitamin D), 1,000 UNITS PO DAILY Clopidogrel (Plavix), 75 MG PO DAILY Cyanocobalamin (Vitamin B12), 1,000 MCG PO DAILY Folic Acid (Folvite), 1 MG PO DAILY Insulin Glargine (Lantus Solostar), 44 UNITS SQ QPM Lisinopril (Zestril), 2.5 MG PO DAILY Magnesium Oxide (Mag-Ox), 400 MG PO BID Methenamine Hippurate (Methenamine Hippurate), 1 GM PO BID Metoprolol Tartrate (Lopressor), 25 MG PO BID Piperacillin Sodium-Tazobactam (Zosyn), 3.375 GM IV DIRECTED Tamsulosin Hcl (Flomax), 0.4 MG PO HS Scheduled PRN Senna (Senokot), 1 TAB PO DAILY PRN for Constipation Allergies NKDA Physical Exam Vital Signs Date Time Temp Pulse Resp B/P (MAP) Pulse Ox O2 Delivery O2 Flow Rate FiO2 07/08/17 17:23 37.0 95 17 109/81 98 Room Air Physical Exam HEENT: Head - normocephalic and atraumatic. Pupils are equal, round, and reactive to light. Extraocular eye muscles are intact and sclera are anicteric. Ears - bilaterally patent canals with noninjected tympanic membranes and no evidence of hemotympanum. Nose - moist nasal mucosa without discharge. Mouth - moist buccal mucosa. Oropharynx is nonerythematous and there is no tonsillar exudate or edema noted. Heart: Regular rate and rhythm. There is a normal S1 and S2 with no murmurs, clicks, or gallops appreciated. Lungs: Clear to auscultation bilaterally with no wheezes, rales, or rhonchi. Abdomen: Distended lower abdomen and painful to palpation in the suprapubic region. There is no guarding, rigidity, or rebound noted. Extremities: No calf tenderness or swelling, There are easily palpable peripheral pulses. Neuro:The patient is awake and alert, oriented to day, time, and place. Muscle strength is 5/5 in all 4 extremities. 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 Medical Decision & Procedures ED Course 19:15 - Patient was seen at the bedside and a history and examination were obtained 19:20 - I asked nurse to bladder scan the patient and flush the catheter. Discussed the case with Dr. Mota 19:45 - Patient was seen at the bedside and drained a large amount of urine and patients abdominal discomfort subsided 20:00 - case was discussed with director of casework department and she said that patient had appointment with PCP tomorrow afternoon 20:20 - discussed case with patient and he was feeling better and was amenable to being discharged and following up with his PCP tomorrow for more definitive management of his hallman catheter Medical Decision Patient was found to have abdominal distension secondary to blockage of his hallman catheter. He has been here frequently this week and will need more definitive management of his blocked hallman catheter. He will be following with his PCP for this tomorrow. He will need to either discuss obtaining more regular home health vs SNF vs more permanent solution with urology. Patient was stable at discharge and was in no acute distress. Impression Primary Impression: Complication of catheter Departure Information Dispostion Home / Self-Care Condition GOOD Referrals Barb Gray M.D. (PCP) Patient Instructions Catheter Bag Urinary Empty Clean, Catheter Hallman Boy , [facility] Additional Instructions You were found to have urinary retention secondary to a blockage in your hallman catheter. The nurse found a small clot in your catheter and flush the catheter. You then drained planty of urine. You will need to follow up with your PCP tomorrow to come up with a more permanent solution to the recurrent blockage in your hallman catheter. Problem Qualifiers Primary Impression: Complication of catheter Encounter type: subsequent encounter Qualified Codes: T85.9XXD - Unspecified complication of internal prosthetic device, implant and graft, subsequent encounter
[2017-07-08 21:05] VITALS: BP 173/91; PULSE 109; O2SAT 97
[2017-09-24] MEDS ORDERED: NVLGIPEN SC (11:56)
[2017-09-24] MEDS ORDERED: INSU100I2 SC (12:34)
[2017-10-22] MEDS ORDERED: SULF800T23 PO (14:37)
[2017-10-28] MEDS ORDERED: SULF800T23 PO (13:30)
[2017-11-26] MEDS ORDERED: POLY335019 PO (01:24)
[2017-11-26] MEDS ORDERED: NUTR-7 PO (01:24)
[2017-11-26] MEDS ORDERED: GLC/500 PO (17:41)
[2017-11-26] MEDS ORDERED: GLIM2TAB2 PO (17:41)
[2017-11-26] MEDS ORDERED: TPRSR50 PO (17:41)
[2017-11-26] MEDS ORDERED: NYST100033 (17:41)
[2017-12-16] MEDS ORDERED: ZSYI45 (11:04)
[2017-12-16] MEDS ORDERED: SULF800T23 PO (11:05)
[2018-01-04] MEDS ORDERED: Piperacill/Tazobac Consult (12:02)
[2018-01-04] MEDS ORDERED: DOXY-300 PO (12:02)
[2018-01-04] MEDS ORDERED: PIPE1INJ11 IB (12:02)
[2018-01-05] MEDS ORDERED: DOXY-300 PO (16:54)
[2018-01-05] MEDS ORDERED: PIPE1INJ11 IB (16:54)
[2018-01-09] MEDS ORDERED: INSDGIPEN SQ (10:11)
[2018-01-11] MEDS ORDERED: DOXY-300 PO (09:59)
[2018-01-11] MEDS ORDERED: PIPE1INJ11 IB (09:59)
[2018-01-11] MEDS ORDERED: PIPE1INJ11 IV (10:13)
[2018-02-25] MEDS ORDERED: DOXY-300 PO (14:41)
== END 2017-07-08 21:31 | disposition home or self-care (01) ==
LOC: C.EDB 17:13
DX: T83.098A Other mechanical complication of other urinary catheter, initial encounter (principal); Y84.6 Urinary catheterization as the cause of abnormal reaction of the patient, or of later complication, without mention of misadventure at the time of the procedure; R32 Unspecified urinary incontinence; M46.28 Osteomyelitis of vertebra, sacral and sacrococcygeal region; Z87.891 Personal history of nicotine dependence; Z87.440 Personal history of urinary (tract) infections; Z86.14 Personal history of Methicillin resistant Staphylococcus aureus infection

== ENCOUNTER 2017-07-12 00:32 | Emergency (ER) | payer BC, OTHER ==
[~2017-07-12] VITALS: Ht 182.9 cm; Wt 72.5 kg
[~2017-07-12 00:32] MED LIST changes: -PANT40TA PO; -[UNRECOGNIZED DRUG - CODE] IV
[2017-07-12 00:39] VITALS: TEMP 36.5; Ht 182.9 cm; Wt 72.5 kg
--- NOTE | 2017-07-12 01:24 | EMERGENCY ROOM VISIT NOTE ---
History Report prepared by Destiny: Cain Aleman Under the Supervision of: Dr. Jeff Lainez D.O. First contact with patient: 00:43 Chief Complaint: CATHETER REPLACEMENT Stated Complaint: CATHETER BACKED UP History of Present Illness The patient is a 67 year old male who presents to the Emergency Room with complaints of constant pain in his penis that began recently. Patient states that the pain is located at the tip of his penis. Patient suspects that his catheter system is backed up. He states he has had the catheter in for the past 2 months. He states he has been to the ER for similar symptoms previously. He states catheter irrigation has been used to treat the symptoms previous times. Source of History: patient Onset: Recent Position: pelvis (Penis) Timing: constant Modifying Factors (Relieving): other (None) Review of Systems See HPI for pertinent positives & negatives. A total of 10 systems reviewed and were otherwise negative. Past Medical & Surgical Medical Problems: (1) Abscess (2) Acute renal insufficiency (3) ATN (acute tubular necrosis) (4) Hydronephrosis (5) Hypertension (6) Hypertension (7) Leukocytosis (8) MSSA (methicillin susceptible Staphylococcus aureus) septicemia (9) Recurrent UTI (10) Sepsis (11) Urinary tract infection Family History No pertinent family history Social History Smoking Status: Never Smoker Alcohol Use: none Drug Use: none Marital Status: single Housing Status: lives alone Occupation Status: retired Current/Historical Medications Scheduled Aspirin (Aspirin Ec), 81 MG PO DAILY Atorvastatin (Lipitor), 40 MG PO DAILY Cholecalciferol (Vitamin D), 1,000 UNITS PO DAILY Clopidogrel (Plavix), 75 MG PO DAILY Cyanocobalamin (Vitamin B12), 1,000 MCG PO DAILY Folic Acid (Folvite), 1 MG PO DAILY Insulin Glargine (Lantus Solostar), 44 UNITS SQ QPM Lisinopril (Zestril), 2.5 MG PO DAILY Magnesium Oxide (Mag-Ox), 400 MG PO BID Methenamine Hippurate (Methenamine Hippurate), 1 GM PO BID Metoprolol Tartrate (Lopressor), 25 MG PO BID Piperacillin Sodium-Tazobactam (Zosyn), 3.375 GM IV DIRECTED Tamsulosin Hcl (Flomax), 0.4 MG PO HS Scheduled PRN Senna (Senokot), 1 TAB PO DAILY PRN for Constipation Allergies Coded Allergies: No Known Allergies (Unverified , 07/07/17) Physical Exam Vital Signs Date Time Temp Pulse Resp B/P (MAP) Pulse Ox O2 Delivery O2 Flow Rate FiO2 07/12/17 00:39 36.5 121 18 155/82 95 Room Air Physical Exam CONSTITUTIONAL/VITAL SIGNS: Reviewed / noted above. GENERAL: Non-toxic in appearance. INTEGUMENTARY: Warm, dry, and [place]. HEAD: Normocephalic. EYES: without scleral icterus or trauma. ENT/OROPHARYNX: clear and moist. LYMPHADENOPATHY/NECK: Is supple without lymphadenopathy or meningismus. RESPIRATORY: Lungs clear and equal. CARDIOVASCULAR: Regular rate and rhythm. GI/ABDOMEN: Tenderness over suprapubic area with distended bladder on exam. EXTREMITIES: Warm and well perfused. BACK: No CVA tenderness. NEUROLOGICAL: Intact without focal deficits. PSYCHIATRIC: normal affect. MUSCULOSKELETAL: Normally developed with good muscle tone. Medical Decision & Procedures ED Course 0045: Previous medical records were reviewed. The patient was evaluated in room C10. A complete history and physical examination was performed. 0125: On reevaluation, the patient is resting comfortably. I discussed the results and findings with the patient. He verbalized agreement of the treatment plan. He was discharged home. Medical Decision Differential considered: pancreatitis, hepatitis, or acute cholecystitis, AAA, UTI, pyelonephritis, kidney stones, appendicitis, diverticulitis, shingles, bowel obstruction mesenteric ischemia, intussusception,hernia, testicular torsion. This is a 67-year-old male who presents to the ED with a chief complaint of malfunctioning Miller catheter. He has had the same symptoms in the past. The patient has discomfort in the suprapubic area on palpation and there is a distended bladder. The catheter was irrigated and drained adequately. The patient's symptoms resolved. He was discharged. Urine culture has been sent. Medication Reconcilliation Current Medication List: was personally reviewed by me Blood Pressure Screening Patient's blood pressure: Elevated blood pressure Blood pressure disposition: Elevated BP felt to be situational Impression Primary Impression: Complication of catheter Scribe Attestation The scribe's documentation has been prepared under my direction and personally reviewed by me in its entirety. I confirm that the note above accurately reflects all work, treatment, procedures, and medical decision making performed by me. Departure Information Dispostion Home / Self-Care Referrals Barb Gray M.D. (PCP) Forms HOME CARE DOCUMENTATION FORM, IMPORTANT VISIT INFORMATION Patient Instructions My [facility] Additional Instructions Follow-up with your doctor for further care and evaluation in 1-2 days. Return to the emergency department for worsening or new symptoms or any concerns. You have been examined and treated today on an emergency basis only. This is not a substitute for, or an effort to provide, complete comprehensive medical care. It is impossible to recognize and treat all injuries or illnesses in a single emergency department visit. It is therefore important that you follow up closely with your doctor. Call as soon as possible for an appointment.
[2017-07-12 02:06] VITALS: BP 164/94; PULSE 102; O2SAT 98
== END 2017-07-12 02:11 | disposition home or self-care (01) ==
LOC: C.EDB 00:33 → C.EDC 02:11
DX: T83.091A Other mechanical complication of indwelling urethral catheter, initial encounter (principal); Y84.6 Urinary catheterization as the cause of abnormal reaction of the patient, or of later complication, without mention of misadventure at the time of the procedure; Y73.2 Prosthetic and other implants, materials and accessory gastroenterology and urology devices associated with adverse incidents; I10 Essential (primary) hypertension; Z79.82 Long term (current) use of aspirin; Z79.02 Long term (current) use of antithrombotics/antiplatelets; Z79.4 Long term (current) use of insulin

== ENCOUNTER → 2017-07-14 | Outpatient (CLI) | payer BC ==
[2017-07-14 15:41] LABS: BASO % 0.3 %; BASO ABS # 0.04 K/uL (0-0.2); EOS % 4.1 %; EOS ABS # 0.62 K/uL (0-0.5); HEMATOCRIT 33.7 % (42-52); HEMOGLOBIN 11.1 g/dL (14.0-18.0); IG# 0.06 K/uL (0.00-0.02); LYMPH % 4.4 %; LYMPH ABS # 0.67 K/uL (1.2-3.4); MEAN CELL VOLUME 94.7 fL (80-100); MEAN CORPUSCULAR HEMOGLOBIN 31.2 pg (25-34); MEAN CORPUSCULAR HGB CONC 32.9 g/dl (32-36); MEAN PLATELET VOLUME 9.9 fL (7.4-10.4); MONO % 11.9 %; MONO ABS # 1.82 K/uL (0.11-0.59); NEUT % 78.9 %; NEUT ABS # 12.09 K/uL (1.4-6.5); PLATELET COUNT 360 K/uL (130-400); RED CELL DISTRIBUTION WIDTH CV 14.8 % (11.5-14.5); RED CELL DISTRIBUTION WIDTH SD 51.8 fL (36.4-46.3)
[2017-07-14 16:01] LABS: ALBUMIN 2.6 gm/dl (3.4-5.0); ALKALINE PHOSPHATASE 120 U/L (45-117); ALT/SGPT 26 U/L (12-78); AST/SGOT 17 U/L (15-37); BLOOD UREA NITROGEN 27 mg/dl (7-18); CALCIUM 8.5 mg/dl (8.5-10.1); CARBON DIOXIDE 27 mmol/L (21-32); CREATININE 1.44 mg/dl (0.60-1.40); GLUCOSE 548 mg/dl (70-99); POTASSIUM 3.8 mmol/L (3.5-5.1); SODIUM 132 mmol/L (136-145); TOTAL PROTEIN 6.5 gm/dl (6.4-8.2)
== END | disposition home or self-care (01) ==
LOC: C.LABSPEC 15:26
PROVIDERS: ATTEND Internal Medicine Infectious Disease
DX: M46.28 Osteomyelitis of vertebra, sacral and sacrococcygeal region (principal); Z45.2 Encounter for adjustment and management of vascular access device; Z51.81 Encounter for therapeutic drug level monitoring; D64.9 Anemia, unspecified; E11.9 Type 2 diabetes mellitus without complications

== ENCOUNTER → 2017-07-16 | Outpatient (CLI) | payer BC | END | disposition home or self-care (01) | LOC: C.LABSPEC 12:51 | PROVIDERS: ATTEND Physician Assistant | DX: R39.9 Unspecified symptoms and signs involving the genitourinary system (principal) ==

== ENCOUNTER 2017-07-21 22:42 | Inpatient (IN) | payer BC, OTHER ==
[~2017-07-21] VITALS: Ht 182.9 cm; Wt 71.6 kg
[~2017-07-21 22:42] MED LIST changes: -Boost PO; -MRLP17 PO; -PANT40TA PO; -[UNRECOGNIZED DRUG - CODE] IV
[2017-07-21] MEDS ORDERED: FLUCONAZOLE 50 MG TAB PO ONE (23:15)
[2017-07-21] MEDS ORDERED: LIDOCAINE HCL 2% JELLY 30 ML TUBE EXT ONE (23:57)
[2017-07-22] VITALS (13 sets, daily range): BP systolic 102–175; BP diastolic 60–87; PULSE 82–130; TEMP 36.4–37.2; O2SAT 90–99; BMI 20.0
[2017-07-22 00:38] LABS: ISTAT CREATININE 1.4 mg/dl (0.6-1.3); ISTAT IONIZED CALCIUM 1.1 mmol/l (1.12-1.32); ISTAT POTASSIUM 3.6 mEq/L (3.3-5.0)
[2017-07-22] MEDS ORDERED: PIPERACILL/TAZOBAC CONSULT ACTIVE PRN (01:00)
--- NOTE | 2017-07-22 01:00 | EMERGENCY ROOM VISIT NOTE ---
History Report prepared by Destiny: Zack Darnell Under the Supervision of: Dr. Jeff Lainez D.O. First contact with patient: 22:58 Chief Complaint: HEMATURIA Stated Complaint: UTI, HEMATURIA History of Present Illness The patient is a 67 year old male who presents to the Emergency Room with complaints of the constant inability to irrigate his catheter beginning 45 minutes ago. The patient states he has been irrigating his catheter by himself. He reports 45 minutes ago he was not able to push any water in or get any urine out of his catheter. The patient notes he has also been experiencing blood in his urine. He states he has an appointment with his urologist in a few weeks, and he has an in-home nurse. The patient denies any other symptoms. Source of History: patient Onset: 45 minutes ago Position: other (global) Quality: other (inability to irrigate Miller catheter) Timing: constant Associated Symptoms: + urinary symptoms (blood in urine) Note: Denies any other symptom Review of Systems See HPI for pertinent positives & negatives. A total of 10 systems reviewed and were otherwise negative. Past Medical & Surgical Medical Problems: (1) Abscess (2) Acute renal insufficiency (3) ATN (acute tubular necrosis) (4) Hydronephrosis (5) Hypertension (6) Hypertension (7) Leukocytosis (8) MSSA (methicillin susceptible Staphylococcus aureus) septicemia (9) Recurrent UTI (10) Sepsis (11) Urinary tract infection Family History No pertinent family history Social History Smoking Status: Former Smoker Alcohol Use: none Drug Use: none Marital Status: single Housing Status: lives alone Occupation Status: retired Current/Historical Medications Scheduled Aspirin (Aspirin Ec), 81 MG PO DAILY Atorvastatin (Lipitor), 40 MG PO DAILY Cholecalciferol (Vitamin D), 1,000 UNITS PO DAILY Clopidogrel (Plavix), 75 MG PO DAILY Cyanocobalamin (Vitamin B12), 1,000 MCG PO DAILY Folic Acid (Folvite), 1 MG PO DAILY Insulin Glargine (Lantus Solostar), 44 UNITS SQ QPM Lisinopril (Zestril), 2.5 MG PO DAILY Magnesium Oxide (Mag-Ox), 400 MG PO BID Methenamine Hippurate (Methenamine Hippurate), 1 GM PO BID Metoprolol Tartrate (Lopressor), 25 MG PO BID Piperacillin Sodium-Tazobactam (Zosyn), 3.375 GM IV DIRECTED Tamsulosin Hcl (Flomax), 0.4 MG PO HS Scheduled PRN Senna (Senokot), 1 TAB PO DAILY PRN for Constipation Allergies Coded Allergies: No Known Allergies (Unverified , 07/21/17) Physical Exam Vital Signs Date Time Temp Pulse Resp B/P (MAP) Pulse Ox O2 Delivery O2 Flow Rate FiO2 07/21/17 22:51 36.7 118 19 92/61 100 Room Air Physical Exam CONSTITUTIONAL/VITAL SIGNS: Reviewed / noted above. GENERAL: Non-toxic in appearance. INTEGUMENTARY: Warm, dry, and [place]. HEAD: Normocephalic. EYES: without scleral icterus or trauma. ENT/OROPHARYNX: clear and moist. LYMPHADENOPATHY/NECK: Is supple without lymphadenopathy or meningismus. RESPIRATORY: Lungs clear and equal. CARDIOVASCULAR: Regular rate and rhythm. GI/ABDOMEN: Soft and nontender. No organomegaly or pulsatile mass. No rebound or guarding. Normal bowel sounds. Slightly distended bladder. Gross hematuria noted in the Miller catheter bag. EXTREMITIES: Warm and well perfused. BACK: No CVA tenderness. NEUROLOGICAL: Intact without focal deficits. PSYCHIATRIC: normal affect. MUSCULOSKELETAL: Normally developed with good muscle tone. Medical Decision & Procedures Laboratory Results Test 07/22/17 00:25 Bedside Hemoglobin 11.2 g/dl (14.0-18.0) Bedside Hematocrit 33 % (42-52) Bedside Sodium 135 mEq/L (135-144) Bedside Potassium 3.6 mEq/L (3.3-5.0) Bedside Chloride 95 mEq/L (101-112) Bedside Total CO2 27 mEq/l (24-31) Anion Gap 18.0 mmol/L (16-25) Bedside Blood Urea Nitrogen 30 mg/dl (7-18) Bedside Creatinine 1.4 mg/dl (0.6-1.3) Bedside Glucose (other) 389 mg/dl (70-99) Bedside Ionized Calcium (Peewee) 1.10 mmol/l (1.12-1.32) Medications Administered Medications (Trade) Dose Ordered Sig/Nilda Route Start Time Stop Time Status Last Admin Dose Admin Fluconazole (Diflucan Tab) 150 mg NOW ONCE PO 07/21/17 23:15 07/21/17 23:16 DC 07/21/17 23:27 150 MG Lidocaine HCl (Xylocaine Jelly 2%) 30 ml STK-MED ONCE EXT 07/21/17 23:57 07/21/17 23:58 DC 07/22/17 00:33 30 ML ED Course 2300: Previous medical records were reviewed. The patient was evaluated in room B05. A complete history and physical examination was performed. 2315: Ordered Fluconazole 150 mg PO 2354: On reevaluation, the patient is resting comfortably. I discussed the results and findings with the patient. He verbalized agreement of the treatment plan. The patient will be discharged home once his catheter is replaced. 7: Ordered Lidocaine HCl 30 ml EXT Medical Decision The patient is a 67 year old male who presents to the ED with complaints of the inability to irrigate his catheter. Differential diagnoses includes: Miller catheter obstruction, infection, anemia, kidney malfunction. The patient has been here previously for the same issue. The patient reports that he has been going irrigation at home for his Miller catheter obstructions. He states that he is unable to do so this evening because he could not flush it. He came in for evaluation of this. The patient has been having some hematuria. He is due to see his urologist a couple of weeks. They're attempting to advance the appointment. The patient's previous urine cultures reveals some yeast. The patient was given a dose of Diflucan orally here. The patient's Miller catheter was initially irrigated but did not seem to flush well. A new Miller catheter was placed. The patient is having gross hematuria. Approximately 1 L of urine was drained from the bladder. The patient had blood work earlier today. He also had an i-STAT labs done. He had a urinalysis done earlier today as well. The patient's hemoglobin appears to be stable. His kidney function is relatively normal. The patient also reports that his PICC line fell out today. The patient is hyperglycemic today. This seems to be relatively common with regards to his recent blood work. The patient states that he is unable to get an appointment with his urologist, Dr. Marrero until July 11. The urinalysis from earlier today was concerning for infection although previous urinalyses looks similar and showed yeast infection. The patient's hematuria is new and worsening over the past couple of weeks. Because all these factors, the patient will be seen by the hospitalist for observation. Medication Reconcilliation Current Medication List: was personally reviewed by me Blood Pressure Screening Patient's blood pressure: Normal blood pressure Blood pressure disposition: Did not require urgent referral Impression Primary Impression: Malfunction of Miller catheter Additional Impressions: Hematuria Hyperglycemia Scribe Attestation The scribe's documentation has been prepared under my direction and personally reviewed by me in its entirety. I confirm that the note above accurately reflects all work, treatment, procedures, and medical decision making performed by me. Departure Information Dispostion Home / Self-Care Referrals Barb Gray M.D. (PCP) Forms HOME CARE DOCUMENTATION FORM, IMPORTANT VISIT INFORMATION, WORK / SCHOOL INSTRUCTIONS Patient Instructions My [facility] Problem Qualifiers
--- NOTE | 2017-07-22 01:39 | History and Physical ---
History & Physical Date & Time of Service: Jul 22, 2017 at 01:03 Chief Complaint: Uti, Hematuria Primary Care Physician: Barb Gray M.D. History of Present Illness Source: patient 67 y/o M Hx DM, CHF, CAD, protein malnutrition and chronic LE ulcers, anemia, BPH with obstructive uropathy and an indwelling Miller, osteomyelitis affecting coccyx. Recent complex history as follows - admitted with DKA and UTI 12/20 - diagnosed with obstructive uropathy and required Miller placement - returned to hospital 02/19 and was diagnosed with urosepsis - evolved into septic shock leading to a NSTEMI and diagnosis of CHF. Has thus far refused a cardiac cath. Presented with weakness on 05/22 - diagnosed with MACY/dehydration and subsequently with a sacral abscess and osteomyelitis affecting the coccyx. The pt currently has a PICC line for a prolonged course of Zosyn owing to osteomyelitis with MSSA bacteremia. He has presented to the ER multiple times due to a malfunctioning Miller. He presented today primarily due to a clogged Miller and distended bladder. Additionally, when getting out of a cab to attend the hospital, his PICC became snagged and was dislodged. When his Miller was replaced in the ER, gross hematuria with multiple clots was noted. He denies previous such episodes although this may be contradicted in the medical record. On review of a CT abdomen obtained 07/08, worsening BL hydronephrosis and increasing inflammatory stranding and perinephric fluid is noted when compared to a CT 05/14/2017. Foci of gas are present within the left ureter, left renal collecting system and bladder intraluminally. The pt states that he does not have knowledge regarding the CT results although he was apparently contacted by his primary MD following. The pt denies fevers, rigors or worsening back or flank pain. Initial labs reveal an Hb at baseline and renal function which is only mildly impaired. Past Medical/Surgical History 1) Urosepsis 02/19 - septic shock - MSSA 2) NSTEMI in context of septic shock - the pt had and echo 02/19 following troponin elevations which described mid basilar, inferior hypokinesis. He was advised on catheterization by cardiology but has refused thus far. 3) CHF was diagnosed 02/19 in context of septic shock - EF reported at 35-45% - he does not have a history of pulmonary edema. Reduced EF was confirmed on repeat echo in addition to grade 1 diastolic dysfunction 05/22 4) BPH - obstructive uropathy and MACY - a TURP is eventually planned 5) Protein and multivitamin malnutrition - cause may be a poor diet 6) IDDM - history of DKA 12/20 - generally poorly controlled 7) Chronic normocytic anemia 8) Abscess of elbow 12/20 - required I&D and 6 week course of Abx - MSSA 9) Chronic lower extremity ulcers 10) History of prostatitis 11) Pt is undergoing evaluation for underlying myeloproliferative illness due to anemia and chronic leukocytosis. 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 Smoking Status: Former Smoker Drug Use: none Marital Status: single Occupational Status: retired Allergies Coded Allergies: No Known Allergies (Unverified , 07/21/17) Home Medications Scheduled Aspirin (Aspirin Ec), 81 MG PO DAILY Atorvastatin (Lipitor), 40 MG PO DAILY Cholecalciferol (Vitamin D), 1,000 UNITS PO DAILY Clopidogrel (Plavix), 75 MG PO DAILY Cyanocobalamin (Vitamin B12), 1,000 MCG PO DAILY Folic Acid (Folvite), 1 MG PO DAILY Insulin Glargine (Lantus Solostar), 44 UNITS SQ QPM Lisinopril (Zestril), 2.5 MG PO DAILY Magnesium Oxide (Mag-Ox), 400 MG PO BID Methenamine Hippurate (Methenamine Hippurate), 1 GM PO BID Metoprolol Tartrate (Lopressor), 25 MG PO BID Piperacillin Sodium-Tazobactam (Zosyn), 3.375 GM IV DIRECTED Tamsulosin Hcl (Flomax), 0.4 MG PO HS Scheduled PRN Senna (Senokot), 1 TAB PO DAILY PRN for Constipation Review of Systems Constitutional: No fever, No chills, No sweats, No weakness Eyes: No worsening of vision ENT: No hearing loss Respiratory: No cough, No sputum, No wheezing Cardiovascular: No chest pain Abdomen: No pain, No nausea, No vomiting Musculoskeletal: No joint pain Genitourinary - Male: + dysuria (clogged Miller as above) Neurologic: No memory loss, No paralysis, No weakness Psychiatric: No depression symptoms Endocrine: No fatigue Hematologic / Lymphatic: No abnormal bleeding/bruising Integumentary: No rash Physical Exam Vital Signs Date Time Temp Pulse Resp B/P (MAP) Pulse Ox O2 Delivery O2 Flow Rate FiO2 07/21/17 22:51 36.7 118 19 92/61 100 Room Air General Appearance: WD/WN, no apparent distress Head: normocephalic Eyes: normal inspection ENT: normal ENT inspection, pharynx normal Neck: supple, no JVD Respiratory/Chest: chest non-tender, lungs clear, normal breath sounds Cardiovascular: regular rate, rhythm, no edema, no gallop Abdomen/GI: normal bowel sounds, non tender, soft Back: normal inspection, no CVA tenderness 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, no motor/sensory deficits, alert, oriented x 3 Skin: normal color, warm/dry, + pertinent finding (Improvement in shallow ulcerations) Diagnostics Laboratory Results Results Past 24 Hours Test 07/22/17 00:25 Range/Units Bedside Hemoglobin 11.2 14.0-18.0 g/dl Bedside Hematocrit 33 42-52 % Bedside Sodium 135 135-144 mEq/L Bedside Potassium 3.6 3.3-5.0 mEq/L Bedside Chloride 95 101-112 mEq/L Bedside Total CO2 27 24-31 mEq/l Anion Gap 18.0 16-25 mmol/L Bedside Blood Urea Nitrogen 30 7-18 mg/dl Bedside Creatinine 1.4 0.6-1.3 mg/dl Bedside Glucose (other) 389 70-99 mg/dl Bedside Ionized Calcium (Peewee) 1.10 1.12-1.32 mmol/l Microbiology Results 07/21/17 Urine Culture, [place] Batch Pending Diagnostic Radiology CT abdomen 07/07/17 1. The bladder is markedly distended and there are foci of intraluminal gas. A Miller catheter is in place. Correlate with urinalysis for evidence of cystitis. 2. There is moderate to severe bilateral hydroureteronephrosis. The ureters are dilated to the level of the bladder, and this may be related to bladder obstruction. 3. Hydronephrosis has worsened and there is increasing inflammatory stranding and perinephric fluid is compared to 05/14/2017. Foci of gas are present within the left ureter and the left renal collecting system which may be related to infection or instrumentation. Correlate clinically and urinalysis for evidence of pyelonephritis. Pyelonephritis may be emphysematous on the left. 4. Mildly enlarged retroperitoneal lymph nodes are similar to previous. 5. A 2.1 cm fluid collection is again seen inferior to the tip of the coccyx. Erosive change is suggested at the tip of the coccyx and may represent osteomyelitis. 6. Cholelithiasis. 7. Trace abdominal ascites. 8. Moderate to severe constipation. 9. Additional findings as above. Impression Assessment and Plan 67 y/o M Hx DM, CHF, CAD, protein malnutrition, anemia, BPH with obstructive uropathy and an indwelling Miller, osteomyelitis affecting coccyx. Recent complex history as follows - admitted with DKA and UTI 12/20 - diagnosed with obstructive uropathy and required Miller placement - returned to hospital 02/19 and was diagnosed with urosepsis - evolved into septic shock leading to a NSTEMI and diagnosis of CHF. Has thus far refused a cardiac cath. Presented with weakness on 05/22 - diagnosed with MACY/dehydration and subsequently with a sacral abscess and osteomyelitis affecting the coccyx. The pt currently has a PICC line for a prolonged course of Zosyn owing to osteomyelitis with MSSA bacteremia. He has presented to the ER multiple times due to a malfunctioning Miller. He presented today primarily due to a clogged Miller and distended bladder. Additionally, when getting out of a cab to attend the hospital, his PICC became snagged and was dislodged. When his Miller was replaced in the ER, gross hematuria with multiple clots was noted. He denies previous such episodes although this may be contradicted in the medical record. 1) Hematuria, clogged Miller, BPH - abnormal CT findings showing progression of BL hydro, foci of gas throughout urinary system on L and increased perinephric stranding. The pt will be evaluated by urology as he could not obtain an appt until Aug 11. We will irrigate his Miller at frequent intervals and consider continuous irrigation if there are clotting issues. A UA is pending. He is being treated with Zosyn Q6H due to osteomyelitis. Eventual TURP is planned. Cont Flomax, IVF provided. 2) Osteomyelitis - will arrange for PICC replacement so that home Zosyn can be continued - he can follow-up with ID otherwise. 3) DM - generally poorly controlled - hyperglycemia on admission - placed on SS with Glargine. 4) MACY - mild - IVF provided - repeat BMP AM - monitor for volume overload due to combined CHF history. 5) CHF - chronic systolic and diastolic - no history of pulmonary edema and does not take diuretics - cont b callie 6) Likely CAD - history of NSTEMI during sepsis. Has refused a cath - cont ASA , Statin, Plavix B callie - may need to hold ASA and Plavix if hematuria does not clear with irrigation. Full code - SCDs Total time for this admission including review of labs, meds, imaging, extensive records - discussion with pt and ER attending 40 min Level of Care Med/Surg Resuscitation Status FULL RESUSCITATION VTE Prophylaxis Given or contraindicated: SCD's
[2017-07-22] MEDS ORDERED: ZOLPIDEM TARTRATE 5 MG TAB PO PRN (01:45)
[2017-07-22] MEDS ORDERED: POLYETHYLENE (MIRALAX) 17 GM PACK PO PRN (01:45)
[2017-07-22] MEDS ORDERED: ACETAMINOPHEN 325 MG TAB PO PRN (01:45)
[2017-07-22] MEDS ORDERED: MAGNESIUM HYDROXIDE SUSP 30 ML UDC PO PRN (01:45)
[2017-07-22] MEDS ORDERED: ALUMINUM/MAGNESIUM/SIMETH (MAALOX MAX) 30 ML UDC PO PRN (01:45)
[2017-07-22 02:24] LABS: HEMATOCRIT 32.4 % (42-52); HEMOGLOBIN 10.9 g/dL (14.0-18.0); MEAN CELL VOLUME 92.6 fL (80-100); MEAN CORPUSCULAR HEMOGLOBIN 31.1 pg (25-34); MEAN CORPUSCULAR HGB CONC 33.6 g/dl (32-36); MEAN PLATELET VOLUME 9.8 fL (7.4-10.4); PLATELET COUNT 474 K/uL (130-400); RED CELL DISTRIBUTION WIDTH CV 13.9 % (11.5-14.5); RED CELL DISTRIBUTION WIDTH SD 46.7 fL (36.4-46.3); WHITE BLOOD COUNT 10.36 K/uL (4.8-10.8)
[2017-07-22 02:40] LABS: CALCIUM 8.7 mg/dl (8.5-10.1); CREATININE 1.55 mg/dl (0.60-1.40); POTASSIUM 3.7 mmol/L (3.5-5.1)
[2017-07-22] MEDS ORDERED: IV FLUIDS COMPLETED PRN (02:45)
[2017-07-22] MEDS ORDERED: PIPERACILL/TAZOBAC IV 3.375 GM in DEXTROSE 5% 100ML IV ONE (03:00)
[2017-07-22] MEDS ORDERED: NSS + 20MEQ KCL 1000ML 1,000 ML IV SCH (03:00)
[2017-07-22] MEDS ORDERED: INSULIN ASPART 100 UNITS/ML 3 ML PEN SC ONE (03:00)
[2017-07-22] MEDS ORDERED: INSULIN GLARGINE SOLOSTAR 100 UNITS/ML 3 ML PEN SC ONE (03:00)
[2017-07-22] MEDS ORDERED: LIDOCAINE HCL 2% JELLY 30 ML TUBE EXT PRN (08:15)
--- NOTE | 2017-07-22 08:21 | Urology Consultation ---
History General Date of Service: Jul 22, 2017. Chief Complaint: gross hematuria, UR, bilateral hydronephrosis Primary Care Physician: Barb Gray M.D. Pt seen a urologist before?: Yes (Dr. Marrero ) If yes, why?: urinary retention, recurrent UTI History of Present Illness 67 yo male presents to [facility] with c/o worsening gross hematuria, and a "clogged catheter." The pt has a hx of diabetes and osteomyelitis for which has been receiving IV abx through a PICC line. Unfortunately he dislodged his PICC line while attempting to get out of the taxi on his way to the ED. He has a hx of BPH and UR for which he has had a chronic indwelling hallman catheter for several months now. He last saw Dr. Marrero for this issue in May. Previously admitted for urosepsis in the fall. The pt denies any pain this morning. Denies n/v. UC&S has not been collected. Hallman catheter currently in place draining dark bloody urine. The pt is noted to have a CT from 07-08 showing bilateral hydronephrosis with dilation of the ureters down to the level of the bladder. An overdistended bladder also noted despite hallman catheter in place. ? foci of gas in the left ureter with ? pyelonephritis noted as well. Laboratory Last 24 Hours Test 07/22/17 00:15 07/22/17 00:25 07/22/17 02:30 White Blood Count 10.36 K/uL Red Blood Count 3.50 M/uL Hemoglobin 10.9 g/dL Hematocrit 32.4 % Mean Corpuscular Volume 92.6 fL Mean Corpuscular Hemoglobin 31.1 pg Mean Corpuscular Hemoglobin Concent 33.6 g/dl RDW Standard Deviation 46.7 fL RDW Coefficient of Variation 13.9 % Platelet Count 474 K/uL Mean Platelet Volume 9.8 fL Sodium Level 133 mmol/L Potassium Level 3.7 mmol/L Chloride Level 97 mmol/L Carbon Dioxide Level 29 mmol/L Anion Gap 7.0 mmol/L 18.0 mmol/L Blood Urea Nitrogen 31 mg/dl Creatinine 1.55 mg/dl Est Creatinine Clear Calc Drug Dose 43.9 ml/min Estimated GFR () 52.2 Estimated GFR (Non- 45.0 BUN/Creatinine Ratio 19.8 Random Glucose 389 mg/dl Calcium Level 8.7 mg/dl Beta-Hydroxybutyric Acid 4.15 mg/dL Bedside Hemoglobin 11.2 g/dl Bedside Hematocrit 33 % Bedside Sodium 135 mEq/L Bedside Potassium 3.6 mEq/L Bedside Chloride 95 mEq/L Bedside Total CO2 27 mEq/l Bedside Blood Urea Nitrogen 30 mg/dl Bedside Creatinine 1.4 mg/dl Bedside Glucose (other) 389 mg/dl Bedside Ionized Calcium ([place]e) 1.10 mmol/l Bedside Glucose 361 mg/dl Problem List Medical Problems: (1) ARF (acute renal failure) Status: Acute (2) Complication of catheter Status: Acute (3) Complication of catheter Status: Acute (4) Complication of catheter Status: Acute (5) Dehydration Status: Acute (6) DKA (diabetic ketoacidoses) Status: Acute (7) Hallman catheter problem Status: Acute (8) Generalized weakness Status: Acute (9) Hematuria Status: Acute (10) Hydronephrosis due to obstruction of bladder Status: Acute (11) Hyperglycemia Status: Acute (12) Malfunction of Hallman catheter Status: Acute (13) Malfunction of Hallman catheter Status: Acute (14) Malfunction of Hallman catheter Status: Acute (15) Urinary retention Status: Acute (16) Urinary tract infection Status: Acute Past History BPH, congestive heart failure, coronary artery disease, diabetes, myocardial infarction (NSTEMI), urinary tract infection (hx of urosepsis), other (protein and multivitamin malnutrition from poor diet, abscess of elbow, chronic lower extremity ulcers, hx of prostatitis) Past Surgical History: tonsillectomy, other (oral tooth extraction ) Family History No pertinent family history Social History Hx Tobacco Use In Past Year?: No Smoking: quit greater than 1 year (quit 15 years ago) Alcohol: other (rarely) Drug use: none Marital status: single Housing status: lives alone Occupation status: retired Allergies Coded Allergies: No Known Allergies (Unverified , 07/21/17) Medications Home Medications: Home Meds and Scripts Medications Dose Route/Sig Max Daily Dose Days Date Category Zosyn (Piperacillin Sodium-Tazobactam) 1 Inj Inj 3.375 Gm IV DIRECTED 07/07/17 Reported Senokot (Senna) 8.6 Mg Tab 1 Tab PO DAILY PRN 07/04/17 Reported Methenamine Hippurate 1 Gm Tab 1 Gm PO BID 07/04/17 Reported Zestril (Lisinopril) 2.5 Mg Tab 2.5 Mg PO DAILY 06/14/17 Reported Vitamin B12 (Cyanocobalamin) 1,000 Mcg Tab 1,000 Mcg PO DAILY 06/14/17 Reported Lopressor (Metoprolol Tartrate) 25 Mg Tab 25 Mg PO BID 06/14/17 Reported Mag-Ox (Magnesium Oxide) 400 Mg Tab 400 Mg PO BID 06/14/17 Reported Folvite (Folic Acid) 1 Mg Tab 1 Mg PO DAILY 06/14/17 Reported Plavix (Clopidogrel Bisulfate) 75 Mg Tab 75 Mg PO DAILY 06/14/17 Reported Lipitor (Atorvastatin Calcium) 40 Mg Tab 40 Mg PO DAILY 06/14/17 Reported Lantus Solostar (Insulin Glargine) 100 Unit/Ml Inj 44 Units SQ QPM 02/27/17 Reported Flomax (Tamsulosin Hcl) 0.4 Mg Cap 0.4 Mg PO HS 02/27/17 Reported Vitamin D (Cholecalciferol) 1,000 Unit Tab 1,000 Units PO DAILY 02/27/17 Reported Aspirin Ec (Aspirin) 81 Mg Tab 81 Mg PO DAILY 02/27/17 Reported Inpatient Medications: Current Inpatient Medications Medications (Trade) Dose Ordered Sig/Nilda Route Start Time Stop Time Status Last Admin Dose Admin Piperacillin Sod/ Tazobactam Sod 3.375 gm/Dextrose 115 ml @ 28.75 mls/ hr Q8H IV 07/22/17 08:00 09/02/17 07:59 Miscellaneous Information (Consult) 1 ea UD PRN N/A 07/22/17 01:00 08/21/17 00:59 Aspirin (Ecotrin Tab) 81 mg DAILY PO 07/22/17 09:00 08/21/17 08:59 Atorvastatin Calcium (Lipitor Tab) 40 mg DAILY PO 07/22/17 09:00 08/21/17 08:59 Cholecalciferol (Vitamin D Tab) 1,000 inter.unit DAILY PO 07/22/17 09:00 08/21/17 08:59 Clopidogrel Bisulfate (plAVix TAB) 75 mg DAILY PO 07/22/17 09:00 08/21/17 08:59 Folic Acid (Folvite Tab) 1 mg DAILY PO 07/22/17 09:00 08/21/17 08:59 Insulin Glargine (Lantus Solostar Pen) 44 units QPM SQ 07/22/17 21:00 08/21/17 20:59 Lisinopril (Zestril Tab) 2.5 mg DAILY PO 07/22/17 09:00 08/21/17 08:59 Magnesium Oxide (Mag-Ox Tab) 400 mg BID PO 07/22/17 09:00 08/21/17 08:59 Methenamine Hippurate (Urex Tab) 1 gm BID PO 07/22/17 09:00 07/27/17 08:59 Metoprolol Tartrate (Lopressor Tab) 25 mg BID PO 07/22/17 09:00 08/21/17 08:59 Tamsulosin HCl (Flomax Cap) 0.4 mg HS PO 07/22/17 21:00 08/21/17 20:59 Cyanocobalamin (Vitamin B-12 Tab) 1,000 mcg DAILY PO 07/22/17 09:00 08/21/17 08:59 Potassium Chloride/Sodium Chloride 1,000 ml @ 80 mls/hr [id number] IV 07/22/17 03:00 07/22/17 15:29 07/22/17 03:01 80 MLS/HR Acetaminophen (Tylenol Tab) 650 mg Q4H PRN PO 07/22/17 01:45 08/21/17 01:44 Al Hydrox/Mg Hydrox/Simethicone (Maalox Max Susp) 15 ml Q4H PRN PO 07/22/17 01:45 08/21/17 01:44 Magnesium Hydroxide (Milk Of Magnesia Susp) 30 ml Q6H PRN PO 07/22/17 01:45 08/21/17 01:44 Polyethylene (Miralax Powder Packet) 17 gm DAILY PRN PO 07/22/17 01:45 08/21/17 01:44 Zolpidem Tartrate (Ambien Tab) 5 mg HSZ PRN PO 07/22/17 01:45 08/21/17 01:44 Ondansetron HCl (Zofran Inj) 4 mg Q6H PRN IV 07/22/17 01:45 08/21/17 01:44 Insulin Aspart (novoLOG ASPART) SLIDING SCALE G... ACHS SC 07/22/17 07:00 08/21/17 06:59 Miscellaneous (Iv Fluids Completed) 1 ea PRN PRN N/A 07/22/17 02:45 07/22/18 02:44 Review of Systems Review of Systems Constitutional: No fever, No chills Eyes: No double vision Neurological: No dizzy Endocrine: No excessive thirst Gastrointestinal: No abdominal pain, No nausea, No vomiting Cardiovascular: No chest pain Respiratory: No shortness of breath Skin: No rash Musculoskeletal: No back pain Male : + blood in urine Physical Exam Vital Signs: Vital Signs Past 12 Hours Date Time Temp Pulse Resp B/P (MAP) Pulse Ox O2 Delivery O2 Flow Rate FiO2 07/22/17 02:30 36.8 116 18 134/71 (92) 99 Room Air 07/22/17 02:30 Room Air 07/22/17 01:38 95 18 98/59 98 Room Air 07/21/17 22:51 36.7 118 19 92/61 100 Room Air Physical Exam: General Appearance: no apparent distress Eyes: bilateral eyes normal inspection ENT: hearing grossly normal Neck: no JVD Respiratory/Chest: no respiratory distress, no accessory muscle use Cardiovascular: no JVD Extremities: normal inspection Neurologic/Psychiatric: alert, normal mood/affect, oriented x 3 Skin: normal color Assessment & Plan Assessment & Plan A/P: Gross hematuria, urinary retention, BPH, bilateral hydronephrosis AFVSS. Will change hallman catheter to a 3-way 22Fr coude hallman and start CBI for gross hematuria. Recommend stopping Plavix and ASA while actively bleeding if able. Supportive management with transfusions PRN. Continue Flomax. Will repeat a CT this morning, although I feel his bilateral hydro may be chronic in nature. Will check a UC&S. Thanks for the consult. Will continue to follow along with primary service.
[2017-07-22] MEDS ORDERED: HYDROmorphone INJ 1 MG/ML SYR IV ONE (08:30)
[2017-07-22 09:15] LABS: BASO % 0.5 %; BASO ABS # 0.04 K/uL (0-0.2); EOS % 5.8 %; EOS ABS # 0.46 K/uL (0-0.5); HEMOGLOBIN 8.4 g/dL (14.0-18.0); IG# 0.11 K/uL (0.00-0.02); LYMPH % 23.4 %; LYMPH ABS # 1.87 K/uL (1.2-3.4); MEAN CELL VOLUME 92.2 fL (80-100); MEAN CORPUSCULAR HEMOGLOBIN 29.8 pg (25-34); MEAN CORPUSCULAR HGB CONC 32.3 g/dl (32-36); MEAN PLATELET VOLUME 9.8 fL (7.4-10.4); MONO % 10.5 %; MONO ABS # 0.84 K/uL (0.11-0.59); NEUT % 58.4 %; NEUT ABS # 4.67 K/uL (1.4-6.5); PLATELET COUNT 419 K/uL (130-400); RED CELL DISTRIBUTION WIDTH SD 47.1 fL (36.4-46.3); WHITE BLOOD COUNT 7.99 K/uL (4.8-10.8)
[2017-07-22] MEDS: PIPERACILL/TAZOBAC IV 3.375 GM in DEXTROSE 5% 100ML 100 ML IV SCH ×2 (09:59→20:44)
[2017-07-22] MEDS: ASPIRIN 81 MG ECTAB PO SCH (09:59)
[2017-07-22] MEDS: ATORVASTATIN 40 MG TAB PO SCH (10:00)
[2017-07-22] MEDS: MAGNESIUM OXIDE 400 MG TAB PO SCH ×2 (10:01→20:50)
[2017-07-22] MEDS: METOPROLOL TARTRATE 25 MG TAB PO SCH ×3 (10:01→21:11)
[2017-07-22] MEDS: CLOPIDOGREL BISULFATE 75 MG TAB PO SCH (10:01)
[2017-07-22] MEDS: LISINOPRIL 2.5 MG TAB PO SCH (10:01)
[2017-07-22] MEDS: CYANOCOBALAMIN 500 MCG TAB (VIT B-12) PO SCH (10:02)
[2017-07-22] MEDS: METHENAMINE HIPPURATE 1 GM TAB PO SCH ×2 (10:02→20:49)
[2017-07-22] MEDS: CHOLECALCIFEROL 1000 INTER.UNIT TAB PO SCH (10:02)
[2017-07-22] MEDS: INSULIN ASPART 100 UNITS/ML 3 ML PEN SC SCH ×4 (10:04→20:34)
--- NOTE | 2017-07-22 11:04 | DIAGNOSTIC IMAGING REPORT ---
ABDOMEN AND PELVIS CT WITHOUT CONTRAST CT DOSE: 355.47 mGy.cm HISTORY: Acute hematuria with bilateral hydronephrosis. bilateral hydronephrosis TECHNIQUE: Multiaxial CT images of the abdomen and pelvis were performed without contrast. A dose lowering technique was utilized adhering to the principles of ALARA. COMPARISON STUDY: CT abdomen and pelvis 07/08/2017. FINDINGS: Respiratory motion limits evaluation of the lung bases. Mild dependent subsegmental bibasilar atelectasis. No pneumatosis or pneumoperitoneum identified. The imaged inferior cardiac chambers are mildly enlarged. Coronary arterial disease. Study is limited secondary to placement of patient's arms. Liver, spleen, and adrenal glands are within normal limits. Moderate diffuse pancreatic atrophy. Stone filled gallbladder is again noted without CT evidence of acute cholecystitis or common bile duct dilation. Indeterminate calcification of the right mesentery is again seen, 11 mm. Moderate to severe left-sided hydronephrosis redemonstrated with decreased hydronephrosis on the right which is now moderate. Extensive perinephric stranding is again seen bilaterally. Renal vascular calcifications are noted. Multiple foci of air again noted within the left renal collecting system. There is suggestion of urothelial thickening on the left. Dilated ureter extends the level the urinary bladder. A Miller catheter is in urine bladder which demonstrates at least moderate circumferential wall thickening. Moderate amount of air is seen within the urinary bladder lumen as well as a large degree of heterogeneous hyperattenuating dependent material compatible with hemorrhage. Moderate to extensive atherosclerosis of the aorta. Unchanged enlarged retroperitoneal lymph nodes measure up to 1.5 x 1.1 cm which appear unchanged. There is mild gastric distention. No bowel obstruction. Mild to moderate sigmoid colon diverticulosis. No CT evidence of acute diverticulitis. Moderate stool volume of the colon, notably within the sigmoid portion. Mild diffuse body wall edema and mesenteric edema is noted with trace fluid in the pelvis and pericolic gutters. Erosive changes involving the distal coccyx again seen with a fluid collection adjacent to the coccygeal tip, 1.7 cm. The bones appear moderately demineralized. Moderate intervertebral disc space narrowing at L5-S1 with broad-based disc osteophyte complex. IMPRESSION: 1. Marked circumferential wall thickening of the urinary bladder with perivesicular inflammatory stranding suggests cystitis. Additionally, there is a large degree of hemorrhage within the urinary bladder lumen which is new from comparison. Correlate with urinalysis. 2. Air is again seen within the urinary bladder lumen and also within the left renal collecting system. Gas forming organism with cystitis and emphysematous pyelitis should be considered, however this may also be secondary to instrumentation with reflux of air. 3. Moderate to severe left and moderate right hydronephrosis with improvement on the right. 4. Persistent bilateral perinephric stranding suggests pyelonephritis. 5. Unchanged retroperitoneal adenopathy, likely reactive. 6. Cholelithiasis. 7. Suggested constipation. 8. Unchanged small fluid collection adjacent to the coccyx with mild coccygeal erosion. Electronically signed by: Shmuel Garland M.D. 07/22/2017 11:03 AM Dictated Date/Time: 07/22/2017 10:50 AM
[2017-07-22] MEDS: ONDANSETRON INJ 2 MG/ML 2 ML VIAL IV PRN ×2 (11:36→21:02)
--- NOTE | 2017-07-22 12:38 | Progress Note ---
Progress Note Date of Service Jul 22, 2017. Progress Note Pt admitted after midnight. Seen and examined by me today. Patient complains of fatigue. He denies acute weakness, palpitations, shortness of breath, or chest pain. The patient had an episode of nausea and vomiting just prior to my arrival. He received Zofran and now denies any nausea or abdominal pain. He states this is the first time he's vomited in years. 3 way Miller placed with continuous bladder irrigation. Per nursing, flank bleeding continues as soon as irrigation is stopped. The patient denies fevers, chills, sweats, chest pain, palpitations, claudication, cough, wheezing , shortness of breath, abdominal pain, dysuria, urinary retention, paralysis, weakness, numbness and tingling. Physical exam shows heart RRR, no murmur. Lungs clear to auscultation, no breath sounds. Abdomen soft, non-tender. Gross hematuria in Miller, CBI running. Skin positive for pallor. 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 Small scab there, no other trauma. Flat affect. Physical exam otherwise unremarkable. A/P: Hematuria with acute blood loss anemia--ongoing -Change to full admission status -Hold ASA and Plavix -Hgb dropped to 8.4 from 10.9. Recent NSTEMI, Hgb should be over 10. Transfuse 1 unit now -Trend H&H q6h -Urology consulted, appreciate recs: Change Miller to [address] way 22 [address] for CBI. Stop ASA and Plavix if able. Recommend repeat CT abdomen/pelvis -UA negative for bacteria, positive for mucus and yeast. Urine culture pending. Last 5 UA and urine cultures obtained have been positive for yeast not donis albicans -CT A/P shows: 1. Marked circumferential wall thickening of the urinary bladder with perivesicular inflammatory stranding suggests cystitis. Additionally, there is a large degree of hemorrhage within the urinary bladder lumen which is new from comparison. Correlate with urinalysis. 2. Air is again seen within the urinary bladder lumen and also within the left renal collecting system. Gas forming organism with cystitis and emphysematous pyelitis should be considered, however this may also be secondary to instrumentation with reflux of air. 3. Moderate to severe left and moderate right hydronephrosis with improvement on the right. 4. Persistent bilateral perinephric stranding suggests pyelonephritis. 5. Unchanged retroperitoneal adenopathy, likely reactive. 6. Cholelithiasis. 7. Suggested constipation. 8. Unchanged small fluid collection adjacent to the coccyx with mild coccygeal erosion. -Consult infectious disease MACY -Creatinine 1.55 on 07/22, up from 1.24 on 07/21 -NSS + 20 KCl at 80 cc/hr -Hold lisinopril Osteomyelitis--continue Zosyn. Pt states 10 days left
[2017-07-22 13:47] LABS: CALCIUM 8.5 mg/dl (8.5-10.1); CREATININE 1.37 mg/dl (0.60-1.40); POTASSIUM 3.7 mmol/L (3.5-5.1)
[2017-07-22 14:02] LABS: HEMATOCRIT 24.7 % (42-52); HEMOGLOBIN 8.3 g/dL (14.0-18.0)
[2017-07-22 15:22] LABS: HEMATOCRIT 26.9 % (42-52); HEMOGLOBIN 8.9 g/dL (14.0-18.0)
[2017-07-22] MEDS ORDERED: CASPOFUNGIN INJ 70 MG in SODIUM CHLORIDE 0.9% 250ML 250 ML IV ONE (19:00)
[2017-07-22] MEDS: SODIUM CHLORIDE 0.9% 1000ML 1,000 ML IV SCH ×2 (19:40→20:28)
[2017-07-22] MEDS: INSULIN GLARGINE SOLOSTAR 100 UNITS/ML 3 ML PEN SQ SCH (20:37)
[2017-07-22] MEDS: TAMSULOSIN HCL 0.4 MG CAP PO SCH (20:49)
[2017-07-22 23:02] LABS: HEMATOCRIT 29.7 % (42-52); HEMOGLOBIN 9.9 g/dL (14.0-18.0)
[2017-07-22] MEDS: STERILE WATER IR SCH (23:42)
[2017-07-22] MEDS: AMPHOTERICIN B IRRIGATION IR SCH (23:42)
[2017-07-23] VITALS (8 sets, daily range): BP systolic 119–146; BP diastolic 60–77; PULSE 75–109; TEMP 36.3–37.1; O2SAT 96–97; Ht 182.9 cm; Wt 71.6 kg
[2017-07-23] MEDS: PIPERACILL/TAZOBAC IV 3.375 GM in DEXTROSE 5% 100ML 100 ML IV SCH ×4 (00:30→23:57)
[2017-07-23 03:33] LABS: BASO % 0.2 %; BASO ABS # 0.03 K/uL (0-0.2); EOS % 1.2 %; EOS ABS # 0.18 K/uL (0-0.5); HEMATOCRIT 28.1 % (42-52); HEMOGLOBIN 9.4 g/dL (14.0-18.0); IG# 0.09 K/uL (0.00-0.02); LYMPH % 11.6 %; LYMPH ABS # 1.71 K/uL (1.2-3.4); MEAN CELL VOLUME 91.8 fL (80-100); MEAN CORPUSCULAR HEMOGLOBIN 30.7 pg (25-34); MEAN CORPUSCULAR HGB CONC 33.5 g/dl (32-36); MEAN PLATELET VOLUME 9.2 fL (7.4-10.4); MONO ABS # 1.18 K/uL (0.11-0.59); NEUT % 78.4 %; NEUT ABS # 11.52 K/uL (1.4-6.5); PLATELET COUNT 385 K/uL (130-400); RED CELL DISTRIBUTION WIDTH CV 14.2 % (11.5-14.5); RED CELL DISTRIBUTION WIDTH SD 47.9 fL (36.4-46.3); WHITE BLOOD COUNT 14.71 K/uL (4.8-10.8)
[2017-07-23 03:53] LABS: CALCIUM 8.5 mg/dl (8.5-10.1); CREATININE 1.33 mg/dl (0.60-1.40); POTASSIUM 3.9 mmol/L (3.5-5.1)
[2017-07-23] MEDS: SODIUM CHLORIDE 0.9% 1000ML 1,000 ML IV SCH ×3 (06:07→16:02)
[2017-07-23] MEDS: STERILE WATER IR SCH ×4 (06:07→23:49)
[2017-07-23] MEDS: AMPHOTERICIN B IRRIGATION IR SCH ×4 (06:07→23:49)
[2017-07-23] MEDS: INSULIN ASPART 100 UNITS/ML 3 ML PEN SC SCH ×4 (07:00→21:19)
--- NOTE | 2017-07-23 08:51 | Progress Note ---
Subjective Date of Service: Jul 23, 2017. (Jaylin Reyes CRNP) Subjective Pt evaluation today including: conversation w/ patient, chart review, lab review Voiding: hallman catheter in place (patent, draining light orange urine with slow CBI running) 67 yo male with bilateral hydro, suspected sepsis, and gross hematuria. Pt transferred to telemetry yesterday. Pt denies pain this morning. Hallman catheter irrigated by Dr. Elam last evening. Now draining light orange urine with slow CBI running. H&H stable at 9.4 and 28.1 this morning. 1 unit PRBCs previously transfused. Cr is 1.3 UC&S pending. Pt denies pain. CT scan yesterday showing persistent hydro with clot in the bladder. Air in the left ureter suspicious for ? emphysematous pyelitis vs pyelonephritis. [place] to be most likely pyelonephritis by Dr. Elam. Pt reports he feels tired this morning. States he thought he would be feeling better. Denies pain. (Jaylin Reyes CRNP) Pt evaluation today including: chart review, lab review, review of studies (Luis Elam, D.O.) Problem List Medical Problems: (1) ARF (acute renal failure) Status: Acute (2) Complication of catheter Status: Acute (3) Complication of catheter Status: Acute (4) Complication of catheter Status: Acute (5) Dehydration Status: Acute (6) DKA (diabetic ketoacidoses) Status: Acute (7) Hallman catheter problem Status: Acute (8) Generalized weakness Status: Acute (9) Hematuria Status: Acute (10) Hydronephrosis due to obstruction of bladder Status: Acute (11) Hyperglycemia Status: Acute (12) Malfunction of Hallman catheter Status: Acute (13) Malfunction of Hallman catheter Status: Acute (14) Malfunction of Hallman catheter Status: Acute (15) Urinary retention Status: Acute (16) Urinary tract infection Status: Acute (Jaylin Reyes CRNP) Review of Systems Constitutional: No fever, No chills Respiratory: No shortness of breath Cardiac: No chest pain Abdomen: No pain, No nausea, No vomiting Male : + hematuria Heme: No abnormal bleeding/bruising (Jaylin Reyes CRNP) Objective Vital Signs Date Time Temp Pulse Resp B/P (MAP) Pulse Ox O2 Delivery O2 Flow Rate FiO2 07/23/17 04:06 37.1 109 18 128/77 (94) 96 Room Air 07/23/17 04:00 Room Air 07/23/17 00:06 36.7 109 18 128/69 (88) Room Air 95.0 07/23/17 00:00 Room Air 07/22/17 21:09 120 170/87 (114) 07/22/17 21:00 Room Air 07/22/17 19:52 36.9 130 20 99 07/22/17 19:15 36.9 130 20 149/79 99 07/22/17 18:30 37.1 105 20 175/79 95 07/22/17 17:53 37.2 106 20 164/68 96 07/22/17 17:25 36.8 94 20 143/79 96 07/22/17 17:04 36.9 96 16 156/84 90 07/22/17 16:46 36.6 91 20 146/78 97 07/22/17 15:22 36.7 85 16 139/76 (97) 97 Room Air 07/22/17 13:05 36.4 82 16 110/66 (81) 97 Room Air 07/22/17 12:18 97 Room Air (Jaylin Reyes, PYTHON PROGRAMMER) Physical Exam General Appearance: no apparent distress Eyes: normal inspection ENT: hearing grossly normal Neck: no JVD Respiratory/Chest: no respiratory distress, no accessory muscle use Cardiovascular: no JVD Extremities: normal inspection Neurologic/Psychiatric: alert, normal mood/affect, oriented x 3 Skin: normal color (Jaylin Reyes, PYTHON PROGRAMMER) Laboratory Results Last 24 Hours Test 07/22/17 08:45 07/22/17 12:14 07/22/17 13:13 07/22/17 13:51 White Blood Count 7.99 K/uL Red Blood Count 2.82 M/uL Hemoglobin 8.4 g/dL 8.3 g/dL Hematocrit 26.0 % 24.7 % Mean Corpuscular Volume 92.2 fL Mean Corpuscular Hemoglobin 29.8 pg Mean Corpuscular Hemoglobin Concent 32.3 g/dl Platelet Count 419 K/uL Mean Platelet Volume 9.8 fL Neutrophils (%) (Auto) 58.4 % Lymphocytes (%) (Auto) 23.4 % Monocytes (%) (Auto) 10.5 % Eosinophils (%) (Auto) 5.8 % Basophils (%) (Auto) 0.5 % Neutrophils # (Auto) 4.67 K/uL Lymphocytes # (Auto) 1.87 K/uL Monocytes # (Auto) 0.84 K/uL Eosinophils # (Auto) 0.46 K/uL Basophils # (Auto) 0.04 K/uL RDW Standard Deviation 47.1 fL RDW Coefficient of Variation 14.0 % Immature Granulocyte % (Auto) 1.4 % Immature Granulocyte # (Auto) 0.11 K/uL Toxic Granulation 1+ Bedside Glucose 170 mg/dl Erythrocyte Sedimentation Rate 41 mm/hr Sodium Level 138 mmol/L Potassium Level 3.7 mmol/L Chloride Level 101 mmol/L Carbon Dioxide Level 28 mmol/L Anion Gap 9.0 mmol/L Blood Urea Nitrogen 34 mg/dl Creatinine 1.37 mg/dl Est Creatinine Clear Calc Drug Dose 48.2 ml/min Estimated GFR () 60.6 Estimated GFR (Non- 52.3 BUN/Creatinine Ratio 24.7 Random Glucose 190 mg/dl Lactic Acid Level 1.4 mmol/L Calcium Level 8.5 mg/dl Magnesium Level 2.2 mg/dl C-Reactive Protein 2.95 mg/dl Procalcitonin 0.21 ng/ml Test 07/22/17 15:06 07/22/17 17:36 07/22/17 20:20 07/22/17 22:45 Hemoglobin 8.9 g/dL 9.9 g/dL Hematocrit 26.9 % 29.7 % Bedside Glucose 202 mg/dl 156 mg/dl Test 07/23/17 03:27 White Blood Count 14.71 K/uL Red Blood Count 3.06 M/uL Hemoglobin 9.4 g/dL Hematocrit 28.1 % Mean Corpuscular Volume 91.8 fL Mean Corpuscular Hemoglobin 30.7 pg Mean Corpuscular Hemoglobin Concent 33.5 g/dl Platelet Count 385 K/uL Mean Platelet Volume 9.2 fL Neutrophils (%) (Auto) 78.4 % Lymphocytes (%) (Auto) 11.6 % Monocytes (%) (Auto) 8.0 % Eosinophils (%) (Auto) 1.2 % Basophils (%) (Auto) 0.2 % Neutrophils # (Auto) 11.52 K/uL Lymphocytes # (Auto) 1.71 K/uL Monocytes # (Auto) 1.18 K/uL Eosinophils # (Auto) 0.18 K/uL Basophils # (Auto) 0.03 K/uL RDW Standard Deviation 47.9 fL RDW Coefficient of Variation 14.2 % Immature Granulocyte % (Auto) 0.6 % Immature Granulocyte # (Auto) 0.09 K/uL Sodium Level 141 mmol/L Potassium Level 3.9 mmol/L Chloride Level 106 mmol/L Carbon Dioxide Level 32 mmol/L Anion Gap 3.0 mmol/L Blood Urea Nitrogen 24 mg/dl Creatinine 1.33 mg/dl Est Creatinine Clear Calc Drug Dose 49.6 ml/min Estimated GFR () 62.8 Estimated GFR (Non- 54.2 BUN/Creatinine Ratio 18.1 Random Glucose 74 mg/dl Calcium Level 8.5 mg/dl Magnesium Level 2.2 mg/dl (Jaylin Reyes CRNP) Assessment and Plan A/P: Bilateral hydronephrosis, suspected urosepsis, gross hematuria. 1. Hematuria Hematuria improving. Continue to observe. Continue CBI. Hand irrigate qshift and as needed. Supportive management with transfusions PRN. 2. Bilateral hydronephrosis Ureters appear dilated to the level of the bladder. Suspect some of the inflammation surrounding the kidneys and bladder is r/t pyelonephritis. Will repeat a renal u/s today. Will make him NPO in the event he needs stent placement. 3. ? urosepsis Awaiting UC&S results. Will also send a fungal UC&S today. Continue IV abx and Caspofungin until culture results return. May need to consult ID pending results. Will continue to follow along with primary service. (Jaylin Reyes CRNP) Agree with above note from YARD COUPLER. Patient irrigated by myself overnight. Large amount of clot irrigated as well as white thrush like debris. Patient likely dealing with multiorganism pyelonephritis with yeast. 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 Will need broad coverage with antibiotics and antifungal likely for prolonged course. If developing fungus ball will likely require prolonged course antifungal with high urine penetrance. Will check WAGNER to assess hydronephrosis. Right improved on last imaging, but persistent left. Will watch for further debris. If fungus ball developed secondary to funguria stent may or may not help with drainage. Will monitor and assess. Agree with ID and primary team. Will follow and monitor. Continue irrigation and large caliber hallman catheter. (Luis Elam, Osito.O.)
--- NOTE | 2017-07-23 09:00 | Clinical Documentation Query ---
TAMMIE Andrew : CLINICAL DOCUMENTATION QUERIES QUERY 1 OF 2 Patient is a 67 year old male admitted for evaluation of hematuria and urinary obstruction. He has been ordered Caspofungin and Amphotericin B, and CBI. As appropriate, consider documentation as suggested below in order to capture the (possible CA-UTI) In your clinical opinion is this patient being managed for: ( x ) (Possible/Suspected) Catheter associated fungal UTI ( ) Not Agree ( ) Other explanation of clinical findings (Please Explain) ( ) Unable to determine (Please Define) ( ) Need to Discuss The medical record reflects the following clinical findings, treatment, and risk factors. Clinical Indicators: Chronic indwelling Miller, historical fungus in urine, antifungals as ordered. Treatment: Caspofungin and Amphotericin B, and CBI, urology consult Risk Factors: Chronic indwelling Miller QUERY 2 OF 2 Documentation 07/22 includes "Going on to myocarditis in coccyx". Assume this is a voice recognition error. Consider amendment as appropriate. Thank you. In your clinical opinion is this patient being managed for: ( x) Possible/Suspected) Catheter associated fungal UTI Osteomyelitis of coccyx ( ) Not Agree ( ) Other explanation of clinical findings (Please Explain) ( ) Unable to determine (Please Define) ( ) Need to Discuss The medical record reflects the following clinical findings, treatment, and risk factors. Clinical Indicators: As above Treatment: WOCN consultation Risk Factors: Age, limited mobility Please clarify and document your clinical opinion in the progress notes and discharge summary. Terms such as "probable", "suspected", "likely", "questionable", "possible", or "still to be ruled out" are acceptable. IF IN AGREEMENT, YOU MUST DOCUMENT ABOVE DIAGNOSTIC STATEMENT IN DAILY PROGRESS NOTES AND DISCHARGE SUMMARY. This document is not part of the patient's record. Thank You, Sin Street, RN [phone]
[2017-07-23] MEDS: CASPOFUNGIN INJ 50 MG in SODIUM CHLORIDE 0.9% 250ML 250 ML IV SCH (09:33)
[2017-07-23] MEDS: ATORVASTATIN 40 MG TAB PO SCH (09:35)
[2017-07-23] MEDS: METOPROLOL TARTRATE 25 MG TAB PO SCH ×2 (09:36→21:09)
[2017-07-23] MEDS: METHENAMINE HIPPURATE 1 GM TAB PO SCH ×2 (09:37→21:10)
[2017-07-23] MEDS: MAGNESIUM OXIDE 400 MG TAB PO SCH ×2 (09:37→21:10)
[2017-07-23] MEDS: CYANOCOBALAMIN 500 MCG TAB (VIT B-12) PO SCH (09:38)
[2017-07-23] MEDS: CHOLECALCIFEROL 1000 INTER.UNIT TAB PO SCH (09:39)
[2017-07-23 09:48] LABS: HEMATOCRIT 25.9 % (42-52); HEMOGLOBIN 8.6 g/dL (14.0-18.0)
--- NOTE | 2017-07-23 10:33 | Medical Consult ---
Consultation Date of Consultation: Jul 23, 2017. Attending Physician: Vinicius Valdez MD, PhD Reason for Consultation: Possible emphysematous pyelonephritis History of Present Illness 67-year-old male well known to the Infectious Disease service with poorly controlled diabetes mellitus, congestive heart failure, chronic heel ulcerations , previous episodes of sepsis, sacral decubitus with underlying osteomyelitis, with recent cultures growing highly resistant Pseudomonas aeruginosa, who was admitted with hematuria in the setting of chronic indwelling Miller catheter. In review of his cultures, patient is persistently grown a non albicans Angelica species. He now has evidence of ongoing pyelonephritis, with a question of emphysematous pyelonephritis being raised. As discussed, patient started on IV caspofungin, as well as amphotericin B bladder irrigation. Patient is noted improvement in his heel ulcerations and sacral ulceration since starting antibiotic therapy with Zosyn. It appears he is not been totally compliant with his therapy and has multiple left over doses. Currently without fever or major complaints. Past Medical/Surgical History Medical Problems: (1) ARF (acute renal failure) Status: Acute (2) Complication of catheter Status: Acute (3) Complication of catheter Status: Acute (4) Complication of catheter Status: Acute (5) Dehydration Status: Acute (6) DKA (diabetic ketoacidoses) Status: Acute (7) Miller catheter problem Status: Acute (8) Generalized weakness Status: Acute (9) Hematuria Status: Acute (10) Hydronephrosis due to obstruction of bladder Status: Acute (11) Hyperglycemia Status: Acute (12) Malfunction of Miller catheter Status: Acute (13) Malfunction of Miller catheter Status: Acute (14) Malfunction of Miller catheter Status: Acute (15) Urinary retention Status: Acute (16) Urinary tract infection Status: Acute Medical Problems: (1) Abscess (2) Acute blood loss anemia (3) Acute renal insufficiency (4) ATN (acute tubular necrosis) (5) hematuria, osteomyelitis, (6) Hydronephrosis (7) Hypertension (8) Hypertension (9) Leukocytosis (10) MSSA (methicillin susceptible Staphylococcus aureus) septicemia (11) Needs peripherally inserted central catheter (PICC) (12) Recurrent UTI (13) Sepsis (14) Urinary tract infection Family History No pertinent family history Social History Smoking Status: Former Smoker Drug Use: none Marital Status: single Housing Status: lives alone Occupation Status: retired Allergies Coded Allergies: No Known Allergies (Unverified , 07/21/17) Current Inpatient Medications Current Inpatient Medications Medications (Trade) Dose Ordered Sig/Nilda Route Start Time Stop Time Status Last Admin Dose Admin Piperacillin Sod/ Tazobactam Sod 3.375 gm/Dextrose 115 ml @ 28.75 mls/ hr Q8H IV 07/22/17 08:00 09/02/17 07:59 07/23/17 09:32 28.75 MLS/HR Miscellaneous Information (Consult) 1 ea UD PRN N/A 07/22/17 01:00 08/21/17 00:59 Aspirin (Ecotrin Tab) 81 mg DAILY PO 07/22/17 09:00 08/21/17 08:59 Future Hold 07/22/17 09:59 81 MG Atorvastatin Calcium (Lipitor Tab) 40 mg DAILY PO 07/22/17 09:00 08/21/17 08:59 07/23/17 09:35 40 MG Cholecalciferol (Vitamin D Tab) 1,000 inter.unit DAILY PO 07/22/17 09:00 08/21/17 08:59 07/23/17 09:39 1,000 INTER.UNIT Clopidogrel Bisulfate (plAVix TAB) 75 mg DAILY PO 07/22/17 09:00 08/21/17 08:59 Future Hold 07/22/17 10:01 75 MG Folic Acid (Folvite Tab) 1 mg DAILY PO 07/22/17 09:00 08/21/17 08:59 07/23/17 09:34 1 MG Insulin Glargine (Lantus Solostar Pen) 44 units QPM SQ 07/22/17 21:00 08/21/17 20:59 07/22/17 20:37 44 UNITS Lisinopril (Zestril Tab) 2.5 mg DAILY PO 07/22/17 09:00 08/21/17 08:59 Future Hold 07/22/17 10:01 2.5 MG Magnesium Oxide (Mag-Ox Tab) 400 mg BID PO 07/22/17 09:00 08/21/17 08:59 07/23/17 09:37 400 MG Methenamine Hippurate (Urex Tab) 1 gm BID PO 07/22/17 09:00 07/27/17 08:59 07/23/17 09:37 1 GM Metoprolol Tartrate (Lopressor Tab) 25 mg BID PO 07/22/17 09:00 08/21/17 08:59 07/23/17 09:36 25 MG Tamsulosin HCl (Flomax Cap) 0.4 mg HS PO 07/22/17 21:00 08/21/17 20:59 07/22/17 20:49 0.4 MG Cyanocobalamin (Vitamin B-12 Tab) 1,000 mcg DAILY PO 07/22/17 09:00 08/21/17 08:59 07/23/17 09:38 1,000 MCG Acetaminophen (Tylenol Tab) 650 mg Q4H PRN PO 07/22/17 01:45 08/21/17 01:44 Al Hydrox/Mg Hydrox/Simethicone (Maalox Max Susp) 15 ml Q4H PRN PO 07/22/17 01:45 08/21/17 01:44 Magnesium Hydroxide (Milk Of Magnesia Susp) 30 ml Q6H PRN PO 07/22/17 01:45 08/21/17 01:44 Polyethylene (Miralax Powder Packet) 17 gm DAILY PRN PO 07/22/17 01:45 08/21/17 01:44 Zolpidem Tartrate (Ambien Tab) 5 mg HSZ PRN PO 07/22/17 01:45 08/21/17 01:44 Ondansetron HCl (Zofran Inj) 4 mg Q6H PRN IV 07/22/17 01:45 08/21/17 01:44 07/22/17 21:02 4 MG Insulin Aspart (novoLOG ASPART) SLIDING SCALE G... ACHS SC 07/22/17 07:00 08/21/17 06:59 07/22/17 17:59 2 UNITS Miscellaneous (Iv Fluids Completed) 1 ea PRN PRN N/A 07/22/17 02:45 07/22/18 02:44 Lidocaine HCl (Xylocaine Jelly 2%) 5 ml UD PRN EXT 07/22/17 08:15 08/21/17 08:14 Sodium Chloride 1,000 ml @ 150 mls/hr Q6H40M IV 07/22/17 13:00 08/21/17 12:59 07/23/17 06:07 150 MLS/HR Amphotericin B 12.5 mg/Sterile Water 250 ml @ 0 mls/hr DAILY@00,06,12,18 IR 07/23/17 00:00 08/02/17 00:00 07/23/17 06:07 1,000 MLS/HR Caspofungin 50 mg/ Sodium Chloride 260 ml @ 250 mls/hr DAILY IV 07/23/17 09:00 08/02/17 08:59 07/23/17 09:33 250 MLS/HR Review of Systems All systems were reviewed and are negative except as per HPI Physical Exam Date Time Temp Pulse Resp B/P (MAP) Pulse Ox O2 Delivery O2 Flow Rate FiO2 07/23/17 08:30 Room Air 07/23/17 07:50 36.3 75 20 119/62 (81) 96 Room Air 07/23/17 04:06 37.1 109 18 128/77 (94) 96 Room Air 07/23/17 04:00 Room Air 07/23/17 00:06 36.7 109 18 128/69 (88) Room Air 95.0 07/23/17 00:00 Room Air 07/22/17 21:09 120 170/87 (114) 07/22/17 21:00 Room Air 07/22/17 19:52 36.9 130 20 99 07/22/17 19:15 36.9 130 20 149/79 99 07/22/17 18:30 37.1 105 20 175/79 95 07/22/17 17:53 37.2 106 20 164/68 96 07/22/17 17:25 36.8 94 20 143/79 96 07/22/17 17:04 36.9 96 16 156/84 90 07/22/17 16:46 36.6 91 20 146/78 97 07/22/17 15:22 36.7 85 16 139/76 (97) 97 Room Air 07/22/17 13:05 36.4 82 16 110/66 (81) 97 Room Air 07/22/17 12:18 97 Room Air General Appearance: WD/WN, no apparent distress Head: normocephalic, atraumatic Eyes: normal inspection, EOMI, sclerae normal ENT: normal ENT inspection, hearing grossly normal, pharynx normal Neck: supple, no adenopathy, thyroid normal, trachea midline Respiratory/Chest: chest non-tender, lungs clear, normal breath sounds, no respiratory distress Cardiovascular: regular rate, rhythm, no gallop, no murmur Abdomen/GI: normal bowel sounds, non tender, soft, no organomegaly Back: normal inspection, no CVA tenderness Extremities/Musculoskelatal: no calf tenderness, + pertinent finding ( Bilateral heel ulcerations) Neurologic/Psych: alert, oriented x 3 Skin: normal color, no rash, + pertinent finding (Sacral decubitus appears slightly improved from my last visit) Lymphatic: no adenopathy Laboratory Results RUN DATE: 07/23/17 [facility] PAGE 1 RUN TIME: 845 Specimen Inquiry PATIENT: BHUMI GALEAS [facility] # : [id number] AGE/SX: 67/M ROOM: E211 REG : 07/22/[address]: Vinicius Valdez MD, PhD : 1950 BED: 1 DIS : STATUS: ADM IN TLOC: SPEC #: [id number] BELKIS: 07/21/17 STATUS: RES REQ #: [id number] RECD: 07/22/17 [facility] DR: Jeff Lainez D.O. SOURCE: URINE CATH ENTR: 07/21/17-[address]: Barb Gray M.D. [facility]: ORDERED: CULTURE UR CATH COMMENTS: Has Specimen Been Obtained/Collected? Y Procedure Result Verified Site URINE CULTURE Preliminary 07/23/17 Organism 1 YEAST - IDENT TO FOLLOW COLONY COUNT >100,000 CFU/ml SENS NO SENSITIVITY TO FOLLOW Last 24 Hours Test 07/22/17 12:14 07/22/17 13:13 07/22/17 13:51 07/22/17 15:06 Bedside Glucose 170 mg/dl Erythrocyte Sedimentation Rate 41 mm/hr Sodium Level 138 mmol/L Potassium Level 3.7 mmol/L Chloride Level 101 mmol/L Carbon Dioxide Level 28 mmol/L Anion Gap 9.0 mmol/L Blood Urea Nitrogen 34 mg/dl Creatinine 1.37 mg/dl Est Creatinine Clear Calc Drug Dose 48.2 ml/min Estimated GFR () 60.6 Estimated GFR (Non- 52.3 BUN/Creatinine Ratio 24.7 Random Glucose 190 mg/dl Lactic Acid Level 1.4 mmol/L Calcium Level 8.5 mg/dl Magnesium Level 2.2 mg/dl C-Reactive Protein 2.95 mg/dl Procalcitonin 0.21 ng/ml Hemoglobin 8.3 g/dL 8.9 g/dL Hematocrit 24.7 % 26.9 % Test 07/22/17 17:36 07/22/17 20:20 07/22/17 22:45 07/23/17 03:27 Bedside Glucose 202 mg/dl 156 mg/dl Hemoglobin 9.9 g/dL 9.4 g/dL Hematocrit 29.7 % 28.1 % White Blood Count 14.71 K/uL Red Blood Count 3.06 M/uL Mean Corpuscular Volume 91.8 fL Mean Corpuscular Hemoglobin 30.7 pg Mean Corpuscular Hemoglobin Concent 33.5 g/dl Platelet Count 385 K/uL Mean Platelet Volume 9.2 fL Neutrophils (%) (Auto) 78.4 % Lymphocytes (%) (Auto) 11.6 % Monocytes (%) (Auto) 8.0 % Eosinophils (%) (Auto) 1.2 % Basophils (%) (Auto) 0.2 % Neutrophils # (Auto) 11.52 K/uL Lymphocytes # (Auto) 1.71 K/uL Monocytes # (Auto) 1.18 K/uL Eosinophils # (Auto) 0.18 K/uL Basophils # (Auto) 0.03 K/uL RDW Standard Deviation 47.9 fL RDW Coefficient of Variation 14.2 % Immature Granulocyte % (Auto) 0.6 % Immature Granulocyte # (Auto) 0.09 K/uL Sodium Level 141 mmol/L Potassium Level 3.9 mmol/L Chloride Level 106 mmol/L Carbon Dioxide Level 32 mmol/L Anion Gap 3.0 mmol/L Blood Urea Nitrogen 24 mg/dl Creatinine 1.33 mg/dl Est Creatinine Clear Calc Drug Dose 49.6 ml/min Estimated GFR () 62.8 Estimated GFR (Non- 54.2 BUN/Creatinine Ratio 18.1 Random Glucose 74 mg/dl Calcium Level 8.5 mg/dl Magnesium Level 2.2 mg/dl Test 07/23/17 09:31 Hemoglobin 8.6 g/dL Hematocrit 25.9 % ABDOMEN AND PELVIS CT WITHOUT CONTRAST CT DOSE: 355.47 mGy.cm HISTORY: Acute hematuria with bilateral hydronephrosis. bilateral hydronephrosis TECHNIQUE: Multiaxial CT images of the abdomen and pelvis were performed without contrast. A dose lowering technique was utilized adhering to the principles of ALARA. COMPARISON STUDY: CT abdomen and pelvis 07/08/2017. FINDINGS: Respiratory motion limits evaluation of the lung bases. Mild dependent subsegmental bibasilar atelectasis. No pneumatosis or pneumoperitoneum identified. The imaged inferior cardiac chambers are mildly enlarged. Coronary arterial disease. Study is limited secondary to placement of patient's arms. Liver, spleen, and adrenal glands are within normal limits. Moderate diffuse pancreatic atrophy. Stone filled gallbladder is again noted without CT evidence of acute cholecystitis or common bile duct dilation. Indeterminate calcification of the right mesentery is again seen, 11 mm. Moderate to severe left-sided hydronephrosis redemonstrated with decreased hydronephrosis on the right which is now moderate. Extensive perinephric stranding is again seen bilaterally. Renal vascular calcifications are noted. Multiple foci of air again noted within the left renal collecting system. There is suggestion of urothelial thickening on the left. Dilated ureter extends the level the urinary bladder. A Miller catheter is in urine bladder which demonstrates at least moderate circumferential wall thickening. Moderate amount of air is seen within the urinary bladder lumen as well as a large degree of heterogeneous hyperattenuating dependent material compatible with hemorrhage. Moderate to extensive atherosclerosis of the aorta. Unchanged enlarged retroperitoneal lymph nodes measure up to 1.5 x 1.1 cm which appear unchanged. There is mild gastric distention. No bowel obstruction. Mild to moderate sigmoid colon diverticulosis. No CT evidence of acute diverticulitis. Moderate stool volume of the colon, notably within the sigmoid portion. Mild diffuse body wall edema and mesenteric edema is noted with trace fluid in the pelvis and pericolic gutters. Erosive changes involving the distal coccyx again seen with a fluid collection adjacent to the coccygeal tip, 1.7 cm. The bones appear moderately demineralized. Moderate intervertebral disc space narrowing at L5-S1 with broad-based disc osteophyte complex. IMPRESSION: 1. Marked circumferential wall thickening of the urinary bladder with perivesicular inflammatory stranding suggests cystitis. Additionally, there is a large degree of hemorrhage within the urinary bladder lumen which is new from comparison. Correlate with urinalysis. 2. Air is again seen within the urinary bladder lumen and also within the left renal collecting system. Gas forming organism with cystitis and emphysematous pyelitis should be considered, however this may also be secondary to instrumentation with reflux of air. 3. Moderate to severe left and moderate right hydronephrosis with improvement on the right. 4. Persistent bilateral perinephric stranding suggests pyelonephritis. 5. Unchanged retroperitoneal adenopathy, likely reactive. 6. Cholelithiasis. 7. Suggested constipation. 8. Unchanged small fluid collection adjacent to the coccyx with mild coccygeal erosion. Electronically signed by: Shmuel Garland M.D. 07/22/2017 11:03 AM Dictated Date/Time: 07/22/2017 10:50 AM The status of this report is Signed. Draft = Assessment & Plan 67-year-old poorly controlled diabetic male with indwelling Miller catheter, with evidence of persistent non Angelica albicans yeast infection. Likely has involvement of kidneys as well with developing emphysematous pyelonephritis. As discussed, patient is to be treated with combination of IV caspofungin and 5 day course of amphotericin B bladder irrigation. He should complete his planned course of Zosyn for his sacral osteomyelitis. Will follow.
--- NOTE | 2017-07-23 10:59 | Hospitalist Progress Note ---
Hospitalist Progress Note Date of Service Jul 23, 2017. Subjective Pt evaluation today including: conversation w/ patient, physical exam, chart review, lab review, review of inpatient medication list Pain: None PO Intake: NPO Voiding: hallman catheter in place Patient reports feeling well. He states he has not had any more nausea or vomiting since that one episode yesterday. He reports some fatigue, but feels about the same as yesterday. Hallman catheter in place with orange urine. The patient denies fevers, chills, sweats, chest pain, palpitations, claudication, cough, wheezing, shortness of breath, nausea, vomiting, abdominal pain, dysuria , urinary retention, paralysis, weakness, numbness and tingling. Additional Comments: See HPI for pertinent positives and negatives. All other systems reviewed and negative. Objective Vital Signs Date Time Temp Pulse Resp B/P (MAP) Pulse Ox O2 Delivery O2 Flow Rate FiO2 07/23/17 08:30 Room Air 07/23/17 07:50 36.3 75 20 119/62 (81) 96 Room Air 07/23/17 04:06 37.1 109 18 128/77 (94) 96 Room Air 07/23/17 04:00 Room Air 07/23/17 00:06 36.7 109 18 128/69 (88) Room Air 95.0 07/23/17 00:00 Room Air 07/22/17 21:09 120 170/87 (114) 07/22/17 21:00 Room Air 07/22/17 19:52 36.9 130 20 99 07/22/17 19:15 36.9 130 20 149/79 99 07/22/17 18:30 37.1 105 20 175/79 95 07/22/17 17:53 37.2 106 20 164/68 96 07/22/17 17:25 36.8 94 20 143/79 96 07/22/17 17:04 36.9 96 16 156/84 90 07/22/17 16:46 36.6 91 20 146/78 97 07/22/17 15:22 36.7 85 16 139/76 (97) 97 Room Air 07/22/17 13:05 36.4 82 16 110/66 (81) 97 Room Air 07/22/17 12:18 97 Room Air Physical Exam Notes: General appearance: Well-developed, well-nourished, no apparent distress Head: Normocephalic, atraumatic Eyes: Normal inspection, PERRL, EOMI ENT: Normal ENT inspection, hearing grossly normal, pharynx normal Neck: Supple, no JVD, trachea midline Respiratory/Chest: +Decreased breath sounds. Lungs clear to auscultation, no respiratory distress Cardiovascular: Regular rate & rhythm, no gallop, no murmur Abdomen/GI: Normal bowel sounds, non-tender, soft : +Hematuria improving, Hallman in place with slow CBI Extremities/Musculoskeletal: Normal inspection, no calf tenderness, no pedal edema Neurological/Psych: +Flat affect. Alert, oriented x 3 Skin: Normal color, warm/dry, no rash Laboratory Results Last 24 Hours Test 07/22/17 12:14 07/22/17 13:13 07/22/17 13:51 07/22/17 15:06 Bedside Glucose 170 mg/dl Erythrocyte Sedimentation Rate 41 mm/hr Sodium Level 138 mmol/L Potassium Level 3.7 mmol/L Chloride Level 101 mmol/L Carbon Dioxide Level 28 mmol/L Anion Gap 9.0 mmol/L Blood Urea Nitrogen 34 mg/dl Creatinine 1.37 mg/dl Est Creatinine Clear Calc Drug Dose 48.2 ml/min Estimated GFR () 60.6 Estimated GFR (Non- 52.3 BUN/Creatinine Ratio 24.7 Random Glucose 190 mg/dl Lactic Acid Level 1.4 mmol/L Calcium Level 8.5 mg/dl Magnesium Level 2.2 mg/dl C-Reactive Protein 2.95 mg/dl Procalcitonin 0.21 ng/ml Hemoglobin 8.3 g/dL 8.9 g/dL Hematocrit 24.7 % 26.9 % Test 07/22/17 17:36 07/22/17 20:20 07/22/17 22:45 07/23/17 03:27 Bedside Glucose 202 mg/dl 156 mg/dl Hemoglobin 9.9 g/dL 9.4 g/dL Hematocrit 29.7 % 28.1 % White Blood Count 14.71 K/uL Red Blood Count 3.06 M/uL Mean Corpuscular Volume 91.8 fL Mean Corpuscular Hemoglobin 30.7 pg Mean Corpuscular Hemoglobin Concent 33.5 g/dl Platelet Count 385 K/uL Mean Platelet Volume 9.2 fL Neutrophils (%) (Auto) 78.4 % Lymphocytes (%) (Auto) 11.6 % Monocytes (%) (Auto) 8.0 % Eosinophils (%) (Auto) 1.2 % Basophils (%) (Auto) 0.2 % Neutrophils # (Auto) 11.52 K/uL Lymphocytes # (Auto) 1.71 K/uL Monocytes # (Auto) 1.18 K/uL Eosinophils # (Auto) 0.18 K/uL Basophils # (Auto) 0.03 K/uL RDW Standard Deviation 47.9 fL RDW Coefficient of Variation 14.2 % Immature Granulocyte % (Auto) 0.6 % Immature Granulocyte # (Auto) 0.09 K/uL Sodium Level 141 mmol/L Potassium Level 3.9 mmol/L Chloride Level 106 mmol/L Carbon Dioxide Level 32 mmol/L Anion Gap 3.0 mmol/L Blood Urea Nitrogen 24 mg/dl Creatinine 1.33 mg/dl Est Creatinine Clear Calc Drug Dose 49.6 ml/min Estimated GFR () 62.8 Estimated GFR (Non- 54.2 BUN/Creatinine Ratio 18.1 Random Glucose 74 mg/dl Calcium Level 8.5 mg/dl Magnesium Level 2.2 mg/dl Test 07/23/17 09:31 Hemoglobin 8.6 g/dL Hematocrit 25.9 % Assessment and Plan 67 y/o male with a history of CAD, NSTEMI Feb 2017, HTN, HLD, systolic CHF, DM II, BPH with obstructive uropathy, chronic Hallman, severe protein-calorie malnutrition, recent osteomyelitis and coccyx fracture who presented to the ED with a clogged Hallman and bladder distention. His PICC had also become dislodge en route. When Hallman was replaced in ED, the patient was found to have gross hematuria with clots Hematuria with acute blood loss anemia, likely pyelonephritis--improving -Admit to med/surg, transferred to telemetry 07/22. No acute events overnight, sinus rhythm/sinus tach with HR 80s-100s. Appears to have sinus arrhythmia -Hold ASA and Plavix -Hgb up to 9.9 following blood transfusion, latest Hgb down to 8.6. Some may be dilutional as receiving large amount of IVF. -Trend H&H q6h -Urology consulted, appreciate recs: Hematuria improving. Continue CBI. Suspect pyelonephritis, will repeat renal ultrasound. NPO for now in case he needs a stent. Awaiting urine C&S, will also send fungal C&S. -UA negative for bacteria, positive for mucus and yeast. Urine culture positive for yeast, identification to follow -CT A/P shows marked circumferential bladder wall thickening with perivesicular inflammatory stranding suggesting cystitis. Large degree of hemorrhage w/in bladder lumen which is new. Air seen in bladder lumen and left renal collecting system. Gas forming organism w/cystitis and emphysematous pyelitis should be considered but could be secondary to instrumentation w/reflux of air. Moderate to severe left and moderate right hydronephrosis with improvement on the right compared to previous. Persistent bilateral perinephric stranding suggesting pyelonephritis. -Consult infectious disease, appreciate ress: Continue Zosyn for now, start caspofungin and amphotericin B bladder irrigation -Received caspofungin 70 mg IV x 1, continue with caspofungin 50 mg IV qd and amphotericin -New leukocytosis. WBC 14.71 on 07/23, up from 7.99. 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 EKG no ischemic changes -ASA on Plavix on hold due to hematuria -Lisinopril on hold due to MACY -Continue Lopressor 25 mg PO BID, atorvastatin 40 mg PO qd Chronic systolic CHF--stable, does not appear to be in acute exacerbation. Has documented 3kg weight gain from yesterday but is at his baseline weight per pt -Decrease IVF as above -Continue BB as above -Lisinopril held as above DM II--last HgbA1c checked 03/03/17 was 8.6 -Lantus 44 units SC hs -Insulin sliding scale -Check BSGs q ac and qhs -Sugars improved compared to admission -Recheck HgbA1c BPH with bladder outlet obstruction, chronic Hallman--ongoing -Continue Flomax 0.4 mg PO hs DVT prophylaxis -Hold chemical prophylaxis due to hematuria -SCDs Code Status -Level I, FULL RESUSCITATION STATUS
--- NOTE | 2017-07-23 11:48 | DIAGNOSTIC IMAGING REPORT ---
(RENAL)RETROPERITON COMP HISTORY: Pain. Pyelonephritis. bilateral hydro COMPARISON: CT 07/22/2017 FINDINGS: Right kidney: Maximum dimension 12.7 cm. Moderate hydronephrosis. Trace perinephric free fluid. Mild cortical scarring Left kidney: Maximum dimension 13.1 cm. Mild hydronephrosis. Trace renal pelvic air. Mild cortical scarring Bladder: No bladder wall thickening. The bilateral ureteral jets were identified. IMPRESSION: 1. Bilateral renal hydronephrosis similar compared to the prior CT study.. 2. Moderate increase in cortical echogenicity on a chronic basis. 3. No evidence for abscess or collection. 4. Trace air within the left renal pelvis possibly secondary to the continual bladder irrigation. The above report was generated using voice recognition software. It may contain grammatical, syntax or spelling errors. Electronically signed by: Stephen Marvin M.D. 07/23/2017 11:47 AM Dictated Date/Time: 07/23/2017 11:43 AM
[2017-07-23 12:32] LABS: HEMOGLOBIN A1C 9.2 % (4.5-5.6)
--- NOTE | 2017-07-23 12:58 | DIAGNOSTIC IMAGING REPORT ---
CHEST ONE VIEW PORTABLE CLINICAL HISTORY: PICC Placement left COMPARISON STUDY: 05/19/2017 FINDINGS: PICC catheter place in superior vena cava. No evidence of pneumothorax. Poorly defined parenchymal infiltrate left base. IMPRESSION: PICC catheter positioned in the superior vena cava. No evidence for pneumothorax. The above report was generated using voice recognition software. It may contain grammatical, syntax or spelling errors. Electronically signed by: Stephen Marvin M.D. 07/23/2017 12:57 PM Dictated Date/Time: 07/23/2017 12:56 PM
[2017-07-23 16:08] LABS: HEMATOCRIT 25.5 % (42-52); HEMOGLOBIN 8.4 g/dL (14.0-18.0)
[2017-07-23] MEDS: TAMSULOSIN HCL 0.4 MG CAP PO SCH (21:09)
[2017-07-23] MEDS: INSULIN GLARGINE SOLOSTAR 100 UNITS/ML 3 ML PEN SQ SCH (21:19)
[2017-07-23 21:44] LABS: HEMATOCRIT 25.8 % (42-52); HEMOGLOBIN 8.6 g/dL (14.0-18.0)
[2017-07-24] VITALS (8 sets, daily range): BP systolic 117–151; BP diastolic 63–83; PULSE 74–99; TEMP 36.7–37.2; O2SAT 95–98
--- NOTE | 2017-07-24 00:17 | Progress Note ---
Progress Note Date of Service Jul 24, 2017. Progress Note asymp 15 beat run of VT ekg, bmp, mg and tsh ordered, replete electrolytes if necessary
[2017-07-24 00:46] LABS: BASO % 0.2 %; BASO ABS # 0.02 K/uL (0-0.2); EOS % 5.9 %; EOS ABS # 0.63 K/uL (0-0.5); HEMATOCRIT 25.5 % (42-52); HEMOGLOBIN 8.1 g/dL (14.0-18.0); LYMPH % 18.3 %; LYMPH ABS # 1.94 K/uL (1.2-3.4); MEAN CELL VOLUME 93.1 fL (80-100); MEAN CORPUSCULAR HEMOGLOBIN 29.6 pg (25-34); MEAN CORPUSCULAR HGB CONC 31.8 g/dl (32-36); MEAN PLATELET VOLUME 9.5 fL (7.4-10.4); MONO ABS # 0.85 K/uL (0.11-0.59); NEUT % 66.7 %; NEUT ABS # 7.09 K/uL (1.4-6.5); PLATELET COUNT 348 K/uL (130-400); RED CELL DISTRIBUTION WIDTH CV 14.2 % (11.5-14.5); RED CELL DISTRIBUTION WIDTH SD 48.3 fL (36.4-46.3); WHITE BLOOD COUNT 10.63 K/uL (4.8-10.8)
[2017-07-24 01:05] LABS: CREATININE 1.38 mg/dl (0.60-1.40)
[2017-07-24 01:06] LABS: CALCIUM 8.2 mg/dl (8.5-10.1); POTASSIUM 3.7 mmol/L (3.5-5.1)
[2017-07-24] MEDS ORDERED: POTASSIUM CHLORIDE 20 MEQ TABCR PO STA (01:53)
[2017-07-24] MEDS: SODIUM CHLORIDE 0.9% 1000ML 1,000 ML IV SCH (02:16)
[2017-07-24 04:59] LABS: CALCIUM 8.2 mg/dl (8.5-10.1); CREATININE 1.19 mg/dl (0.60-1.40)
[2017-07-24] MEDS: AMPHOTERICIN B IRRIGATION IR SCH ×3 (05:26→17:38)
[2017-07-24] MEDS: STERILE WATER IR SCH ×3 (05:26→17:38)
[2017-07-24] MEDS: INSULIN ASPART 100 UNITS/ML 3 ML PEN SC SCH ×4 (07:00→21:09)
[2017-07-24] MEDS: PIPERACILL/TAZOBAC IV 3.375 GM in DEXTROSE 5% 100ML 100 ML IV SCH ×2 (08:23→15:59)
[2017-07-24] MEDS: CASPOFUNGIN INJ 50 MG in SODIUM CHLORIDE 0.9% 250ML 250 ML IV SCH (08:25)
[2017-07-24] MEDS: ATORVASTATIN 40 MG TAB PO SCH (08:26)
[2017-07-24] MEDS: CHOLECALCIFEROL 1000 INTER.UNIT TAB PO SCH (08:26)
[2017-07-24] MEDS: METHENAMINE HIPPURATE 1 GM TAB PO SCH ×2 (08:27→20:06)
[2017-07-24] MEDS: CYANOCOBALAMIN 500 MCG TAB (VIT B-12) PO SCH (08:27)
[2017-07-24] MEDS: METOPROLOL TARTRATE 25 MG TAB PO SCH ×2 (08:27→20:07)
[2017-07-24] MEDS: MAGNESIUM OXIDE 400 MG TAB PO SCH ×2 (08:27→20:07)
[2017-07-24 10:22] LABS: HEMATOCRIT 27.8 % (42-52)
--- NOTE | 2017-07-24 10:27 | Progress Note ---
Subjective Date of Service: Jul 24, 2017. Subjective Pt evaluation today including: conversation w/ patient, chart review, lab review Voiding: hallman catheter in place (patent, draining clear, yellow urine with slow CBI running ) 67 yo male with UTI, sepsis, bilateral hydro, and gross hematuria. H&H has dropped to 8.1 and 25.5 this morning, however urine is now clear, yellow with very slow CBI running. UC&S growing yeast. He has been started on IV caspofungin. Pt denies pain this morning. Denies n/v. White count and Cr have normalized. Bilateral hydro on renal u/s yesterday appears stable. Problem List Medical Problems: (1) ARF (acute renal failure) Status: Acute (2) Complication of catheter Status: Acute (3) Complication of catheter Status: Acute (4) Complication of catheter Status: Acute (5) Dehydration Status: Acute (6) DKA (diabetic ketoacidoses) Status: Acute (7) Hallman catheter problem Status: Acute (8) Generalized weakness Status: Acute (9) Hematuria Status: Acute (10) Hydronephrosis due to obstruction of bladder Status: Acute (11) Hyperglycemia Status: Acute (12) Malfunction of Hallman catheter Status: Acute (13) Malfunction of Hallman catheter Status: Acute (14) Malfunction of Hallman catheter Status: Acute (15) Urinary retention Status: Acute (16) Urinary tract infection Status: Acute Review of Systems Constitutional: No fever, No chills Respiratory: No shortness of breath Cardiac: No chest pain Abdomen: No pain, No nausea, No vomiting Male : No hematuria Heme: No abnormal bleeding/bruising Objective Vital Signs Date Time Temp Pulse Resp B/P (MAP) Pulse Ox O2 Delivery O2 Flow Rate FiO2 07/24/17 07:50 36.8 75 18 117/63 (81) 96 07/24/17 04:00 98 Room Air 07/24/17 03:48 37.1 83 22 133/75 (94) 98 Room Air 07/24/17 00:00 37.2 82 136/70 (92) 98 Room Air 07/24/17 00:00 98 Room Air 07/23/17 20:45 36.9 93 23 126/60 (82) 97 Room Air 07/23/17 20:00 97 Room Air 07/23/17 16:11 Room Air 07/23/17 16:00 97 Room Air 07/23/17 15:48 37.0 84 16 141/74 (96) 97 Room Air 07/23/17 12:30 Room Air 07/23/17 11:50 36.7 76 20 146/74 (98) 97 Room Air Physical Exam General Appearance: no apparent distress Eyes: normal inspection ENT: hearing grossly normal Neck: no JVD Respiratory/Chest: no respiratory distress, no accessory muscle use Cardiovascular: no JVD Extremities: normal inspection Neurologic/Psychiatric: alert, normal mood/affect, oriented x 3 Skin: normal color Laboratory Results Last 24 Hours Test 07/23/17 12:32 07/23/17 15:38 07/23/17 15:58 07/23/17 21:15 Bedside Glucose 239 mg/dl 236 mg/dl 327 mg/dl Hemoglobin 8.4 g/dL Hematocrit 25.5 % Test 07/23/17 21:29 07/24/17 00:32 07/24/17 04:33 07/24/17 06:58 Hemoglobin 8.6 g/dL 8.1 g/dL Hematocrit 25.8 % 25.5 % White Blood Count 10.63 K/uL Red Blood Count 2.74 M/uL Mean Corpuscular Volume 93.1 fL Mean Corpuscular Hemoglobin 29.6 pg Mean Corpuscular Hemoglobin Concent 31.8 g/dl Platelet Count 348 K/uL Mean Platelet Volume 9.5 fL Neutrophils (%) (Auto) 66.7 % Lymphocytes (%) (Auto) 18.3 % Monocytes (%) (Auto) 8.0 % Eosinophils (%) (Auto) 5.9 % Basophils (%) (Auto) 0.2 % Neutrophils # (Auto) 7.09 K/uL Lymphocytes # (Auto) 1.94 K/uL Monocytes # (Auto) 0.85 K/uL Eosinophils # (Auto) 0.63 K/uL Basophils # (Auto) 0.02 K/uL RDW Standard Deviation 48.3 fL RDW Coefficient of Variation 14.2 % Immature Granulocyte % (Auto) 0.9 % Immature Granulocyte # (Auto) 0.10 K/uL Red Blood Cell Morphology Unremarkable Sodium Level 140 mmol/L 140 mmol/L Potassium Level 3.7 mmol/L 4.0 mmol/L Chloride Level 103 mmol/L 106 mmol/L Carbon Dioxide Level 32 mmol/L 32 mmol/L Anion Gap 5.0 mmol/L 2.0 mmol/L Blood Urea Nitrogen 19 mg/dl 19 mg/dl Creatinine 1.38 mg/dl 1.19 mg/dl Est Creatinine Clear Calc Drug Dose 49.7 ml/min 57.8 ml/min Estimated GFR () 60.0 71.8 Estimated GFR (Non- 51.8 62.0 BUN/Creatinine Ratio 13.9 15.9 Random Glucose 224 mg/dl 111 mg/dl Calcium Level 8.2 mg/dl 8.2 mg/dl Magnesium Level 1.9 mg/dl Thyroid Stimulating Hormone (TSH) 1.200 uIu/ml Bedside Glucose 78 mg/dl Test 07/24/17 09:56 Assessment and Plan A/P: Bilateral hydronephrosis, suspected urosepsis, gross hematuria. 1. Hematuria Hematuria resolved. Will clamp CBI today, and see if urine remains clear. 2. Bilateral hydronephrosis Ureters aphe event he needs stent placement. pear dilated to the level of the bladder. Suspect some of the inflammation surrounding the kidneys and bladder is r/t pyelonephritis. Avoid stent placement for now unless the pt were to decompensate. Stents unlikely to be of much benefit to the pt. The pt also states that he would like to avoid any stent placement if possible. 3. ? urosepsis. Continue IV abx and Caspofungin until culture results return. May need to consult ID pending results. Will continue to follow along with primary service.
--- NOTE | 2017-07-24 15:05 | Progress Note ---
Subjective Date of Service: Jul 24, 2017. Subjective Pt evaluation today including: conversation w/ patient, chart review, lab review, review of studies, conversation w/ ent consultant, review of inpatient medication list Report 15 beat of nonsustained VT, last night, no more episodes Generally feeling much better, no fever and chill hematuria is resolved, urine is yellow cleaned now Problem List Medical Problems: (1) ARF (acute renal failure) Status: Acute (2) Complication of catheter Status: Acute (3) Complication of catheter Status: Acute (4) Complication of catheter Status: Acute (5) Dehydration Status: Acute (6) DKA (diabetic ketoacidoses) Status: Acute (7) Miller catheter problem Status: Acute (8) Generalized weakness Status: Acute (9) Hematuria Status: Acute (10) Hydronephrosis due to obstruction of bladder Status: Acute (11) Hyperglycemia Status: Acute (12) Malfunction of Miller catheter Status: Acute (13) Malfunction of Miller catheter Status: Acute (14) Malfunction of Miller catheter Status: Acute (15) Urinary retention Status: Acute (16) Urinary tract infection Status: Acute Review of Systems Constitutional: + fatigue (is better), No fever, No chills, No sweats, No weight loss, No weakness, No problem reported Eyes: No worsening of vision, No eye pain, No redness, No discharge, No diplopia ENT: No hearing loss, No unusual epistaxis, No nasal symptoms, No sore throat, No tinnitus, No dental problems, No trouble swallowing Respiratory: No cough, No sputum, No wheezing, No shortness of breath, No dyspnea on exertion, No dyspnea at rest, No hemoptysis Cardiac: No chest pain, No orthopnea, No PND, No edema, No claudication, No palpitations Abdomen: No pain, No nausea, No vomiting, No diarrhea, No constipation Musculoskeletal: No joint pain, No muscle pain, No swelling, No calf pain Male : No dysuria, No urinary frequency, No incontinence, No nocturia more than once/night, No slowing stream, No hematuria Neurologic: No memory loss, No paralysis, No weakness, No numbness/tingling, No vertigo, No balance problems Psychiatric: No depression symptoms, No anhedonism, No anxiety, No insomnia, No substance abuse Heme: No abnormal bleeding/bruising, No clotting problems, No swollen lymph nodes, No night sweats Endo: No fatigue, No excessive thirst, No excessive urination Skin: + rash (red decubitus in sacral area in the same as yesterday), No itch, No new/changing skin lesions, No color change, No bleeding Objective Vital Signs Date Time Temp Pulse Resp B/P (MAP) Pulse Ox O2 Delivery O2 Flow Rate FiO2 07/24/17 12:00 Room Air 07/24/17 11:50 36.8 74 18 147/74 (98) 95 07/24/17 08:00 Room Air 07/24/17 07:50 36.8 75 18 117/63 (81) 96 07/24/17 04:00 98 Room Air 07/24/17 03:48 37.1 83 22 133/75 (94) 98 Room Air 07/24/17 00:00 37.2 82 136/70 (92) 98 Room Air 07/24/17 00:00 98 Room Air 07/23/17 20:45 36.9 93 23 126/60 (82) 97 Room Air 07/23/17 20:00 97 Room Air 07/23/17 16:11 Room Air 07/23/17 16:00 97 Room Air 07/23/17 15:48 37.0 84 16 141/74 (96) 97 Room Air Physical Exam General Appearance: WD/WN, no apparent distress, + pertinent finding ( generally looks much better, no more lethargic,) Eyes: normal inspection, PERRL, EOMI, sclerae normal ENT: normal ENT inspection, hearing grossly normal, pharynx normal Neck: supple, no adenopathy, thyroid normal, no JVD, no carotid bruits, trachea midline Respiratory/Chest: chest non-tender, normal breath sounds, no respiratory distress, no accessory muscle use, + decreased breath sounds Cardiovascular: regular rate, rhythm, no edema, no gallop, no JVD, no murmur Abdomen: normal bowel sounds, non tender, soft, no organomegaly, no pulsatile mass, + pertinent finding (Miller catheter in place with clean and yellow urine) Extremities: normal range of motion, non-tender, normal inspection, no pedal edema, no calf tenderness, normal capillary refill, pelvis stable Neurologic/Psychiatric: packer insulation II-XII nml as tested, no motor/sensory deficits, alert, normal mood/affect, oriented x 3 Skin: normal color, warm/dry, no rash Lymphatic: no adenopathy Laboratory Results Last 24 Hours Test 07/23/17 15:38 07/23/17 15:58 07/23/17 21:15 07/23/17 21:29 Hemoglobin 8.4 g/dL 8.6 g/dL Hematocrit 25.5 % 25.8 % Bedside Glucose 236 mg/dl 327 mg/dl Test 07/24/17 00:32 07/24/17 04:33 07/24/17 06:58 07/24/17 09:56 White Blood Count 10.63 K/uL Red Blood Count 2.74 M/uL Hemoglobin 8.1 g/dL 9.0 g/dL Hematocrit 25.5 % 27.8 % Mean Corpuscular Volume 93.1 fL Mean Corpuscular Hemoglobin 29.6 pg Mean Corpuscular Hemoglobin Concent 31.8 g/dl Platelet Count 348 K/uL Mean Platelet Volume 9.5 fL Neutrophils (%) (Auto) 66.7 % Lymphocytes (%) (Auto) 18.3 % Monocytes (%) (Auto) 8.0 % Eosinophils (%) (Auto) 5.9 % Basophils (%) (Auto) 0.2 % Neutrophils # (Auto) 7.09 K/uL Lymphocytes # (Auto) 1.94 K/uL Monocytes # (Auto) 0.85 K/uL Eosinophils # (Auto) 0.63 K/uL Basophils # (Auto) 0.02 K/uL RDW Standard Deviation 48.3 fL RDW Coefficient of Variation 14.2 % Immature Granulocyte % (Auto) 0.9 % Immature Granulocyte # (Auto) 0.10 K/uL Red Blood Cell Morphology Unremarkable Sodium Level 140 mmol/L 140 mmol/L Potassium Level 3.7 mmol/L 4.0 mmol/L Chloride Level 103 mmol/L 106 mmol/L Carbon Dioxide Level 32 mmol/L 32 mmol/L Anion Gap 5.0 mmol/L 2.0 mmol/L Blood Urea Nitrogen 19 mg/dl 19 mg/dl Creatinine 1.38 mg/dl 1.19 mg/dl Est Creatinine Clear Calc Drug Dose 49.7 ml/min 57.8 ml/min Estimated GFR () 60.0 71.8 Estimated GFR (Non- 51.8 62.0 BUN/Creatinine Ratio 13.9 15.9 Random Glucose 224 mg/dl 111 mg/dl Calcium Level 8.2 mg/dl 8.2 mg/dl Magnesium Level 1.9 mg/dl Thyroid Stimulating Hormone (TSH) 1.200 uIu/ml Bedside Glucose 78 mg/dl Test 07/24/17 11:34 Bedside Glucose 209 mg/dl Assessment and Plan 67 y/o male with Hematuria with acute blood loss anemia, likely pyelonephritis admitted on 07/22/2017 Hematuria with acute blood loss anemia, likely pyelonephritis, stable and improving Hematuria is resolved Urology on the case, Renal ultrasound results see below: 1. Bilateral renal hydronephrosis similar compared to the prior CT study.. 2. Moderate increase in cortical echogenicity on a chronic basis. 3. No evidence for abscess or collection. 4. Trace air within the left renal pelvis possibly secondary to the continual bladder irrigation. Will find out with infectious disease of the maintenance of antifungal treatment Sacral osteomyelitis, local has 4 mm stage 2 decubitus plus surrounding area stage I decubitus per infectious disease: should have completed full course of antibiotic treatment , we'll continue zosyn because of suspect pyelonephritis, Urology has no planning for stent? f/u urine C&S, Urine culture positive for yeast, amphotericin B bladder irrigation, caspofungin 70 mg IV x 1, continue per recommend of infectious disease service Recent osteomyelitis, as mentioned in the above, should have done with Zosyn CAD, h/o NSTEMI 02/2017, HTN, HLD--stable, asymptomatic. EKG no ischemic changes Chronic systolic CHF--stable, does not appear to be in acute exacerbation. Has documented 3kg weight gain from yesterday but is at his baseline weight per pt DM II--last HgbA1c checked 03/03/17 was 8.6 BPH with bladder outlet obstruction, chronic Miller--ongoing: Above condition stable, continue current care Discussed with patient about a care plan, answered all question Continued [facility] stay due to: multiple IV medications needed Discharge planning: home
[2017-07-24] MEDS: TAMSULOSIN HCL 0.4 MG CAP PO SCH (20:06)
[2017-07-24] MEDS: INSULIN GLARGINE SOLOSTAR 100 UNITS/ML 3 ML PEN SQ SCH (21:09)
[2017-07-25] MEDS: PIPERACILL/TAZOBAC IV 3.375 GM in DEXTROSE 5% 100ML 100 ML IV SCH ×2 (00:04→08:38)
[2017-07-25] MEDS: AMPHOTERICIN B IRRIGATION IR SCH ×4 (00:05→18:25)
[2017-07-25] MEDS: STERILE WATER IR SCH ×4 (00:05→18:25)
[2017-07-25 04:05] VITALS: BP 132/77; PULSE 77; TEMP 37.1; O2SAT 96
[2017-07-25 05:49] LABS: BASO % 0.2 %; BASO ABS # 0.03 K/uL (0-0.2); EOS % 10.3 %; EOS ABS # 1.27 K/uL (0-0.5); HEMATOCRIT 27.1 % (42-52); HEMOGLOBIN 8.8 g/dL (14.0-18.0); IG# 0.14 K/uL (0.00-0.02); LYMPH % 15.8 %; LYMPH ABS # 1.95 K/uL (1.2-3.4); MEAN CELL VOLUME 93.4 fL (80-100); MEAN CORPUSCULAR HEMOGLOBIN 30.3 pg (25-34); MEAN CORPUSCULAR HGB CONC 32.5 g/dl (32-36); MEAN PLATELET VOLUME 9.7 fL (7.4-10.4); MONO ABS # 0.86 K/uL (0.11-0.59); NEUT % 65.6 %; NEUT ABS # 8.11 K/uL (1.4-6.5); PLATELET COUNT 409 K/uL (130-400); RED CELL DISTRIBUTION WIDTH CV 14.1 % (11.5-14.5); RED CELL DISTRIBUTION WIDTH SD 48.2 fL (36.4-46.3); WHITE BLOOD COUNT 12.36 K/uL (4.8-10.8)
[2017-07-25 06:14] LABS: CALCIUM 8.7 mg/dl (8.5-10.1); CREATININE 1.03 mg/dl (0.60-1.40); POTASSIUM 3.9 mmol/L (3.5-5.1)
[2017-07-25 07:54] VITALS: BP 132/77; PULSE 81; TEMP 37.1; O2SAT 98
[2017-07-25] MEDS: ATORVASTATIN 40 MG TAB PO SCH (08:07)
[2017-07-25] MEDS: METOPROLOL TARTRATE 25 MG TAB PO SCH ×2 (08:07→21:01)
[2017-07-25] MEDS: CYANOCOBALAMIN 500 MCG TAB (VIT B-12) PO SCH (08:08)
[2017-07-25] MEDS: METHENAMINE HIPPURATE 1 GM TAB PO SCH ×2 (08:09→21:01)
[2017-07-25] MEDS: CHOLECALCIFEROL 1000 INTER.UNIT TAB PO SCH (08:09)
--- NOTE | 2017-07-25 08:09 | Progress Note ---
Subjective Date of Service: Jul 25, 2017. Subjective Pt evaluation today including: conversation w/ patient, physical exam, chart review, lab review, review of inpatient medication list Pain: Denies PO Intake: Yuliet PO Voiding: hallman catheter in place (urine clear) 67 yo male, known to our service, admitted with hematuria, UTI. Past notes reviewed. Urine is now perfectly clear, no CBI running. Patient denies new complaints, good historian. Hb stabilized, Cr wnl. Problem List Medical Problems: (1) ARF (acute renal failure) Status: Acute (2) Complication of catheter Status: Acute (3) Complication of catheter Status: Acute (4) Complication of catheter Status: Acute (5) Dehydration Status: Acute (6) DKA (diabetic ketoacidoses) Status: Acute (7) Hallman catheter problem Status: Acute (8) Generalized weakness Status: Acute (9) Hematuria Status: Acute (10) Hydronephrosis due to obstruction of bladder Status: Acute (11) Hyperglycemia Status: Acute (12) Malfunction of Hallman catheter Status: Acute (13) Malfunction of Hallman catheter Status: Acute (14) Malfunction of Hallman catheter Status: Acute (15) Urinary retention Status: Acute (16) Urinary tract infection Status: Acute Review of Systems Constitutional: No fever, No chills Eyes: No worsening of vision ENT: No hearing loss Respiratory: No shortness of breath Cardiac: No chest pain Abdomen: No nausea, No vomiting Male : + see HPI, No hematuria Psychiatric: No depression symptoms Skin: No new/changing skin lesions Objective Vital Signs Date Time Temp Pulse Resp B/P (MAP) Pulse Ox O2 Delivery O2 Flow Rate FiO2 07/25/17 07:54 37.1 81 16 132/77 (95) 98 Room Air 07/25/17 04:05 37.1 77 16 132/77 (95) 96 Room Air 07/25/17 04:00 Room Air 07/25/17 00:01 Room Air 07/24/17 23:59 37.0 78 16 134/69 (90) 96 Room Air 07/24/17 20:01 36.9 99 16 151/83 (105) 96 Room Air 07/24/17 20:00 Room Air 07/24/17 16:11 36.7 83 20 135/64 (87) 95 Room Air 07/24/17 16:00 Room Air 07/24/17 12:00 Room Air 07/24/17 11:50 36.8 74 18 147/74 (98) 95 Physical Exam General Appearance: no apparent distress ENT: hearing grossly normal Neck: supple, no adenopathy Respiratory/Chest: no respiratory distress, no accessory muscle use Cardiovascular: no JVD Abdomen: non tender, soft Neurologic/Psychiatric: alert, oriented x 3 Skin: normal color Laboratory Results Last 24 Hours Test 07/24/17 09:56 07/24/17 11:34 07/24/17 16:46 07/24/17 20:36 Hemoglobin 9.0 g/dL Hematocrit 27.8 % Bedside Glucose 209 mg/dl 196 mg/dl 253 mg/dl Test 07/25/17 05:20 07/25/17 07:03 White Blood Count 12.36 K/uL Red Blood Count 2.90 M/uL Hemoglobin 8.8 g/dL Hematocrit 27.1 % Mean Corpuscular Volume 93.4 fL Mean Corpuscular Hemoglobin 30.3 pg Mean Corpuscular Hemoglobin Concent 32.5 g/dl Platelet Count 409 K/uL Mean Platelet Volume 9.7 fL Neutrophils (%) (Auto) 65.6 % Lymphocytes (%) (Auto) 15.8 % Monocytes (%) (Auto) 7.0 % Eosinophils (%) (Auto) 10.3 % Basophils (%) (Auto) 0.2 % Neutrophils # (Auto) 8.11 K/uL Lymphocytes # (Auto) 1.95 K/uL Monocytes # (Auto) 0.86 K/uL Eosinophils # (Auto) 1.27 K/uL Basophils # (Auto) 0.03 K/uL RDW Standard Deviation 48.2 fL RDW Coefficient of Variation 14.1 % Immature Granulocyte % (Auto) 1.1 % Immature Granulocyte # (Auto) 0.14 K/uL Sodium Level 140 mmol/L Potassium Level 3.9 mmol/L Chloride Level 104 mmol/L Carbon Dioxide Level 28 mmol/L Anion Gap 8.0 mmol/L Blood Urea Nitrogen 19 mg/dl Creatinine 1.03 mg/dl Est Creatinine Clear Calc Drug Dose 66.8 ml/min Estimated GFR () 85.5 Estimated GFR (Non- 73.8 BUN/Creatinine Ratio 18.7 Random Glucose 153 mg/dl Calcium Level 8.7 mg/dl Bedside Glucose 142 mg/dl Assessment and Plan A/P 67 yo male with resolved hematuria. Seems much improved. Leave hallman in place - will remove as outpatient. Patient due to see Dr. aGrcia at the time of urodynamic evaluation Aug 13 at 3 :15 PM. Would keep that appointment for outpatient f/u. Thank you for allowing us to participate in this patient's inpatient care. Please recall service PRN new questions or concerns. Continued [facility] stay due to: multiple IV medications needed Discharge planning: home
[2017-07-25] MEDS: INSULIN ASPART 100 UNITS/ML 3 ML PEN SC SCH ×4 (08:40→21:05)
[2017-07-25] MEDS: LISINOPRIL 2.5 MG TAB PO SCH (09:00)
[2017-07-25] MEDS: ASPIRIN 81 MG ECTAB PO SCH ×2 (09:00→10:49)
--- NOTE | 2017-07-25 09:57 | Hospitalist Progress Note ---
Hospitalist Progress Note Date of Service Jul 25, 2017. Subjective Pt evaluation today including: conversation w/ patient, physical exam, chart review, lab review, conversation w/ [employer] sales consultant (spoke with Dr. Wood), review of inpatient medication list Pain: None PO Intake: Tolerating PO diet Voiding: hallman catheter in place (clear yellow urine) The patient reports feeling well. He denies any complaints currently. Hallman catheter in place draining clear yellow urine. The patient denies fevers, chills, sweats, chest pain, palpitations, claudication, cough, wheezing, shortness of breath, nausea, vomiting, abdominal pain, dysuria, hematuria, urinary retention, paralysis, weakness, numbness and tingling. Additional Comments: See HPI for pertinent positives and negatives. All other systems reviewed and negative. Objective Vital Signs Date Time Temp Pulse Resp B/P (MAP) Pulse Ox O2 Delivery O2 Flow Rate FiO2 07/25/17 07:54 37.1 81 16 132/77 (95) 98 Room Air 07/25/17 04:05 37.1 77 16 132/77 (95) 96 Room Air 07/25/17 04:00 Room Air 07/25/17 00:01 Room Air 07/24/17 23:59 37.0 78 16 134/69 (90) 96 Room Air 07/24/17 20:01 36.9 99 16 151/83 (105) 96 Room Air 07/24/17 20:00 Room Air 07/24/17 16:11 36.7 83 20 135/64 (87) 95 Room Air 07/24/17 16:00 Room Air 07/24/17 12:00 Room Air 07/24/17 11:50 36.8 74 18 147/74 (98) 95 Physical Exam Notes: General appearance: Well-developed, well-nourished, no apparent distress Head: Normocephalic, atraumatic Eyes: Normal inspection, PERRL, EOMI ENT: Normal ENT inspection, hearing grossly normal, pharynx normal Neck: Supple, no JVD, trachea midline Respiratory/Chest: +Decreased breath sounds. Lungs clear to auscultation, no respiratory distress Cardiovascular: Regular rate & rhythm, no gallop, no murmur Abdomen/GI: Normal bowel sounds, non-tender, soft : +Hematuria resolved. Extremities/Musculoskeletal: Normal inspection, no calf tenderness, no pedal edema Neurological/Psych: +Flat affect. Alert, oriented x 3 Skin: Normal color, warm/dry, no rash Laboratory Results Last 24 Hours Test 07/24/17 09:56 07/24/17 11:34 07/24/17 16:46 07/24/17 20:36 Hemoglobin 9.0 g/dL Hematocrit 27.8 % Bedside Glucose 209 mg/dl 196 mg/dl 253 mg/dl Test 07/25/17 05:20 07/25/17 07:03 White Blood Count 12.36 K/uL Red Blood Count 2.90 M/uL Hemoglobin 8.8 g/dL Hematocrit 27.1 % Mean Corpuscular Volume 93.4 fL Mean Corpuscular Hemoglobin 30.3 pg Mean Corpuscular Hemoglobin Concent 32.5 g/dl Platelet Count 409 K/uL Mean Platelet Volume 9.7 fL Neutrophils (%) (Auto) 65.6 % Lymphocytes (%) (Auto) 15.8 % Monocytes (%) (Auto) 7.0 % Eosinophils (%) (Auto) 10.3 % Basophils (%) (Auto) 0.2 % Neutrophils # (Auto) 8.11 K/uL Lymphocytes # (Auto) 1.95 K/uL Monocytes # (Auto) 0.86 K/uL Eosinophils # (Auto) 1.27 K/uL Basophils # (Auto) 0.03 K/uL RDW Standard Deviation 48.2 fL RDW Coefficient of Variation 14.1 % Immature Granulocyte % (Auto) 1.1 % Immature Granulocyte # (Auto) 0.14 K/uL Sodium Level 140 mmol/L Potassium Level 3.9 mmol/L Chloride Level 104 mmol/L Carbon Dioxide Level 28 mmol/L Anion Gap 8.0 mmol/L Blood Urea Nitrogen 19 mg/dl Creatinine 1.03 mg/dl Est Creatinine Clear Calc Drug Dose 66.8 ml/min Estimated GFR () 85.5 Estimated GFR (Non- 73.8 BUN/Creatinine Ratio 18.7 Random Glucose 153 mg/dl Calcium Level 8.7 mg/dl Bedside Glucose 142 mg/dl Assessment and Plan 67 y/o male with a history of CAD, NSTEMI Feb 2017, HTN, HLD, systolic CHF, DM II, BPH with obstructive uropathy, chronic Hallman, severe protein-calorie malnutrition, recent osteomyelitis and coccyx fracture who presented to the ED with a clogged Hallman and bladder distention. His PICC had also become dislodge en route. When Hallman was replaced in ED, the patient was found to have gross hematuria with clots Hematuria with acute blood loss anemia, likely pyelonephritis--hematuria resolved -Admit to med/surg, transferred to telemetry 07/22. No acute events overnight, sinus rhythm/sinus tach with HR 80s-110s. Stable, transfer back to med/surg -Resume ASA and Plavix -Hgb remaining stable at 8.8 on 07/25 -Urology consulted, appreciate recs: Clamp CBI. Will avoid stent for now unless decompensates. Pt has f/u appt with Dr. Garcia on Aug 13 at 3:15. Sign off. -UA negative for bacteria, positive for mucus and yeast. Urine culture positive for yeast, not donis albicans -CT A/P shows marked circumferential bladder wall thickening with perivesicular inflammatory stranding suggesting cystitis. Large degree of hemorrhage w/in bladder lumen which is new. Air seen in bladder lumen and left renal collecting system. Gas forming organism w/cystitis and emphysematous pyelitis should be considered but could be secondary to instrumentation w/reflux of air. Moderate to severe left and moderate right hydronephrosis with improvement on the right compared to previous. Persistent bilateral perinephric stranding suggesting pyelonephritis. -Consult infectious disease, appreciate recs: Spoke with Dr. Wood. Can d/c Zosyn. Will need to continue caspofungin for total 2 weeks, no oral alternatives. Amphotericin B bladder irrigation for total 5 days. -Continue caspofungin 50 mg IV qd. Day #4 of 14. Continue amphotericin bladder irrigation. Day #3 of 5. -WBC 12.36 on 07/25, up fro 10.63. 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 EKG no ischemic changes -Hematuria resolved, resume ASA and Plavix -Resume lisinopril -Continue Lopressor 25 mg PO BID, atorvastatin 40 mg PO qd Chronic systolic CHF--stable, does not appear to be in acute exacerbation -Continue BB and lisinopril as above DM II--last HgbA1c checked 03/03/17 was 8.6 -Lantus 44 units SC hs -Insulin sliding scale -Check BSGs q ac and qhs -Sugars improved compared to admission -HgbA1c 9.2 on 07/23 BPH with bladder outlet obstruction, chronic Hallman--ongoing -Continue Flomax 0.4 mg PO hs DVT prophylaxis -Lovenox 40 mg SC q24h as hematuria resolved for over 2 days -SCDs Code Status -Level I, FULL RESUSCITATION STATUS Dispo -From home -PT/OT evaluate and treat -[facility] refuses to provide supplies for pt anymore. [facility] likely not viable option for pt. Will likely need placement.
[2017-07-25] MEDS ORDERED: ENOXAPARIN 40 MG/0.4 ML SYR SQ ONE (10:00)
[2017-07-25 10:45] VITALS: BP 132/77; PULSE 81; TEMP 37.1; O2SAT 98
[2017-07-25] MEDS: CASPOFUNGIN INJ 50 MG in SODIUM CHLORIDE 0.9% 250ML 250 ML IV SCH (10:48)
[2017-07-25] MEDS: CLOPIDOGREL BISULFATE 75 MG TAB PO SCH (10:49)
[2017-07-25] MEDS: MAGNESIUM OXIDE 400 MG TAB PO SCH ×2 (10:49→21:02)
[2017-07-25 12:02] VITALS: BP 149/81; PULSE 89; TEMP 36.8; O2SAT 97
[2017-07-25 15:08] VITALS: BP 158/78; PULSE 76; TEMP 36.7; O2SAT 96
[2017-07-25] MEDS: TAMSULOSIN HCL 0.4 MG CAP PO SCH (21:01)
[2017-07-25] MEDS: INSULIN GLARGINE SOLOSTAR 100 UNITS/ML 3 ML PEN SQ SCH (21:06)
[2017-07-25 23:46] VITALS: BP 154/79; PULSE 96; TEMP 36.9; O2SAT 96
[2017-07-26] MEDS: STERILE WATER IR SCH ×5 (00:02→23:58)
[2017-07-26] MEDS: AMPHOTERICIN B IRRIGATION IR SCH ×5 (00:02→23:58)
[2017-07-26 06:32] LABS: HEMATOCRIT 28.6 % (42-52); HEMOGLOBIN 9.4 g/dL (14.0-18.0); MEAN CELL VOLUME 93.5 fL (80-100); MEAN CORPUSCULAR HEMOGLOBIN 30.7 pg (25-34); MEAN CORPUSCULAR HGB CONC 32.9 g/dl (32-36); MEAN PLATELET VOLUME 9.6 fL (7.4-10.4); PLATELET COUNT 481 K/uL (130-400); RED CELL DISTRIBUTION WIDTH CV 14.1 % (11.5-14.5); RED CELL DISTRIBUTION WIDTH SD 47.8 fL (36.4-46.3); WHITE BLOOD COUNT 11.79 K/uL (4.8-10.8)
[2017-07-26 07:11] VITALS: BP 153/74; PULSE 87; TEMP 36.8; O2SAT 97
[2017-07-26] MEDS: MAGNESIUM OXIDE 400 MG TAB PO SCH ×2 (07:50→19:52)
[2017-07-26] MEDS: CASPOFUNGIN INJ 50 MG in SODIUM CHLORIDE 0.9% 250ML 250 ML IV SCH (07:50)
[2017-07-26] MEDS: CLOPIDOGREL BISULFATE 75 MG TAB PO SCH (07:50)
[2017-07-26] MEDS: METHENAMINE HIPPURATE 1 GM TAB PO SCH ×2 (07:50→19:51)
[2017-07-26] MEDS: CYANOCOBALAMIN 500 MCG TAB (VIT B-12) PO SCH (07:50)
[2017-07-26] MEDS: LISINOPRIL 2.5 MG TAB PO SCH (07:50)
[2017-07-26] MEDS: CHOLECALCIFEROL 1000 INTER.UNIT TAB PO SCH (07:50)
[2017-07-26] MEDS: METOPROLOL TARTRATE 25 MG TAB PO SCH ×2 (07:51→19:51)
[2017-07-26] MEDS: ASPIRIN 81 MG ECTAB PO SCH (07:51)
[2017-07-26] MEDS: ATORVASTATIN 40 MG TAB PO SCH (07:51)
[2017-07-26] MEDS: INSULIN ASPART 100 UNITS/ML 3 ML PEN SC SCH ×4 (08:29→21:23)
[2017-07-26] MEDS: ENOXAPARIN 40 MG/0.4 ML SYR SQ SCH (11:29)
[2017-07-26 15:33] VITALS: BP 138/66; PULSE 91; TEMP 36.7; O2SAT 96
--- NOTE | 2017-07-26 15:59 | Progress Note ---
Subjective Date of Service: Jul 26, 2017. Subjective Pt evaluation today including: conversation w/ patient, physical exam, chart review, lab review, review of studies, conversation w/ it architecture consultant, review of inpatient medication list There is some pink urine in the Miller bag today, it is new, the urine was clear and yellow for 2 days Patient has no complaining, deny fever and chills, has been eating drinking, Problem List Medical Problems: (1) ARF (acute renal failure) Status: Acute (2) Complication of catheter Status: Acute (3) Complication of catheter Status: Acute (4) Complication of catheter Status: Acute (5) Dehydration Status: Acute (6) DKA (diabetic ketoacidoses) Status: Acute (7) Miller catheter problem Status: Acute (8) Generalized weakness Status: Acute (9) Hematuria Status: Acute (10) Hydronephrosis due to obstruction of bladder Status: Acute (11) Hyperglycemia Status: Acute (12) Malfunction of Miller catheter Status: Acute (13) Malfunction of Miller catheter Status: Acute (14) Malfunction of Miller catheter Status: Acute (15) Urinary retention Status: Acute (16) Urinary tract infection Status: Acute Review of Systems Constitutional: + weakness, + fatigue, No fever, No chills, No sweats, No weight loss, No problem reported Eyes: No worsening of vision, No eye pain, No redness, No discharge, No diplopia ENT: No hearing loss, No unusual epistaxis, No nasal symptoms, No sore throat, No tinnitus, No dental problems, No trouble swallowing Respiratory: No cough, No sputum, No wheezing, No shortness of breath, No dyspnea on exertion, No dyspnea at rest, No hemoptysis Cardiac: No chest pain, No orthopnea, No PND, No edema, No claudication, No palpitations Abdomen: No pain, No nausea, No vomiting, No diarrhea, No constipation Musculoskeletal: No joint pain, No muscle pain, No swelling, No calf pain Male : No dysuria, No urinary frequency, No incontinence, No nocturia more than once/night, No slowing stream, No hematuria Neurologic: No memory loss, No paralysis, No weakness, No numbness/tingling, No vertigo, No balance problems Psychiatric: No depression symptoms, No anhedonism, No anxiety, No insomnia, No substance abuse Heme: No abnormal bleeding/bruising, No clotting problems, No swollen lymph nodes, No night sweats Endo: No fatigue, No excessive thirst, No excessive urination Skin: No rash, No itch, No new/changing skin lesions, No color change, No bleeding Objective Vital Signs Date Time Temp Pulse Resp B/P (MAP) Pulse Ox O2 Delivery O2 Flow Rate FiO2 07/26/17 15:33 36.7 91 20 138/66 (90) 96 07/26/17 08:15 Room Air 07/26/17 07:11 36.8 87 20 153/74 (100) 97 07/26/17 00:00 Room Air 07/25/17 23:46 36.9 96 20 154/79 (104) 96 Room Air 07/25/17 16:00 Room Air Physical Exam General Appearance: WD/WN, no apparent distress Eyes: normal inspection, PERRL, EOMI, sclerae normal ENT: normal ENT inspection, hearing grossly normal, pharynx normal Neck: supple, no adenopathy, thyroid normal, no JVD, no carotid bruits, trachea midline Respiratory/Chest: chest non-tender, lungs clear, normal breath sounds, no respiratory distress, no accessory muscle use Cardiovascular: regular rate, rhythm, no edema, no gallop, no JVD, no murmur Abdomen: normal bowel sounds, non tender, soft, no organomegaly, no pulsatile mass, + pertinent finding (Miller in place with pink urine) Extremities: normal range of motion, non-tender, normal inspection, no pedal edema, no calf tenderness, normal capillary refill, pelvis stable Neurologic/Psychiatric: grounds caretaker II-XII nml as tested, no motor/sensory deficits, alert, normal mood/affect, oriented x 3 Skin: normal color, warm/dry, no rash Lymphatic: no adenopathy Laboratory Results Last 24 Hours Test 07/25/17 16:11 07/25/17 20:19 07/26/17 06:01 07/26/17 07:27 Bedside Glucose 249 mg/dl 192 mg/dl 169 mg/dl White Blood Count 11.79 K/uL Red Blood Count 3.06 M/uL Hemoglobin 9.4 g/dL Hematocrit 28.6 % Mean Corpuscular Volume 93.5 fL Mean Corpuscular Hemoglobin 30.7 pg Mean Corpuscular Hemoglobin Concent 32.9 g/dl RDW Standard Deviation 47.8 fL RDW Coefficient of Variation 14.1 % Platelet Count 481 K/uL Mean Platelet Volume 9.6 fL Assessment and Plan 67 y/o male admitted 07/22/2017with gross hematuria with clots Hematuria with acute blood loss anemia, hematuria resolved, likely pyelonephritis, yeast cystitis, was treated with zosyn, which was discontinued because no signs of bacterial infection, per ID, will need to continue caspofungin for total 2 weeks, no oral alternatives. Amphotericin B bladder irrigation for total 5 days. Continue caspofungin 50 mg IV qd. Day #5 of 14. Continue amphotericin bladder irrigation. Day #4 of 5. Urology on the case , Clamp CBI, avoid stent for now, f/u appt with Dr. Garcia on Aug 13 at 3:15. 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 resume ASA and Plavix , Resume lisinopril, Continue Lopressor 25 mg PO BID, atorvastatin 40 mg PO qd Chronic systolic CHF--stable, Uncontrolled DM II--last HgbA1c checked 03/03/17 was 8.6, continue current care, counselling patient about the importance about blood glucose control and avoid medications from diabetic BPH with bladder outlet obstruction, chronic Miller--ongoing -Continue Flomax 0.4 mg PO hs Per report [facility] refuses to provide supplies for pt anymore. [facility] likely not an option, likely need placement to complete Caspofungin for total 2 weeks Medically ready to discharge when place available Continued [facility] stay due to: multiple IV medications needed Discharge planning: senior care facility
[2017-07-26 19:50] VITALS: BP 97/63; PULSE 96
[2017-07-26] MEDS: TAMSULOSIN HCL 0.4 MG CAP PO SCH (21:20)
[2017-07-26] MEDS: INSULIN GLARGINE SOLOSTAR 100 UNITS/ML 3 ML PEN SQ SCH (21:23)
[2017-07-26 23:37] VITALS: BP 126/65; PULSE 92; TEMP 36.8; O2SAT 97
[2017-07-27] MEDS: AMPHOTERICIN B IRRIGATION IR SCH ×4 (05:33→23:30)
[2017-07-27] MEDS: STERILE WATER IR SCH ×4 (05:33→23:30)
[2017-07-27 05:58] LABS: HEMATOCRIT 28.4 % (42-52); HEMOGLOBIN 9.4 g/dL (14.0-18.0); MEAN CELL VOLUME 93.7 fL (80-100); MEAN CORPUSCULAR HGB CONC 33.1 g/dl (32-36); MEAN PLATELET VOLUME 9.3 fL (7.4-10.4); PLATELET COUNT 499 K/uL (130-400); RED CELL DISTRIBUTION WIDTH CV 14.4 % (11.5-14.5); RED CELL DISTRIBUTION WIDTH SD 48.8 fL (36.4-46.3); WHITE BLOOD COUNT 12.94 K/uL (4.8-10.8)
[2017-07-27 07:02] VITALS: BP 143/80; PULSE 89; TEMP 37; O2SAT 95
[2017-07-27] MEDS: CHOLECALCIFEROL 1000 INTER.UNIT TAB PO SCH (08:25)
[2017-07-27] MEDS: CYANOCOBALAMIN 500 MCG TAB (VIT B-12) PO SCH (08:25)
[2017-07-27] MEDS: ASPIRIN 81 MG ECTAB PO SCH (08:25)
[2017-07-27] MEDS: ATORVASTATIN 40 MG TAB PO SCH (08:25)
[2017-07-27] MEDS: CASPOFUNGIN INJ 50 MG in SODIUM CHLORIDE 0.9% 250ML 250 ML IV SCH (08:25)
[2017-07-27] MEDS: METOPROLOL TARTRATE 25 MG TAB PO SCH ×2 (08:25→19:47)
[2017-07-27] MEDS: CLOPIDOGREL BISULFATE 75 MG TAB PO SCH (08:25)
[2017-07-27] MEDS: METHENAMINE HIPPURATE 1 GM TAB PO SCH (08:27)
[2017-07-27] MEDS: MAGNESIUM OXIDE 400 MG TAB PO SCH ×2 (08:27→21:10)
[2017-07-27] MEDS: LISINOPRIL 2.5 MG TAB PO SCH (08:27)
[2017-07-27] MEDS: ENOXAPARIN 40 MG/0.4 ML SYR SQ SCH (08:29)
[2017-07-27] MEDS: INSULIN ASPART 100 UNITS/ML 3 ML PEN SC SCH ×4 (09:13→19:52)
[2017-07-27 15:18] VITALS: BP 95/61; PULSE 93; TEMP 36.7; O2SAT 93
--- NOTE | 2017-07-27 15:44 | Progress Note ---
Subjective Date of Service: Jul 27, 2017. Subjective Pt evaluation today including: conversation w/ patient, physical exam, lab review, review of inpatient medication list Pain: no pain PO Intake: adequate Voiding: hallman catheter in place patient has no complaints, no updates breathing well planning on [facility] for rehab and Caspofungin Problem List Medical Problems: (1) ARF (acute renal failure) Status: Acute (2) Complication of catheter Status: Acute (3) Complication of catheter Status: Acute (4) Complication of catheter Status: Acute (5) Dehydration Status: Acute (6) DKA (diabetic ketoacidoses) Status: Acute (7) Hallman catheter problem Status: Acute (8) Generalized weakness Status: Acute (9) Hematuria Status: Acute (10) Hydronephrosis due to obstruction of bladder Status: Acute (11) Hyperglycemia Status: Acute (12) Malfunction of Hallman catheter Status: Acute (13) Malfunction of Hallman catheter Status: Acute (14) Malfunction of Hallman catheter Status: Acute (15) Urinary retention Status: Acute (16) Urinary tract infection Status: Acute Review of Systems Constitutional: + weakness, + fatigue Neurologic: + weakness, + balance problems All Other Systems: Reviewed and Negative Medications Current Inpatient Medications Medications (Trade) Dose Ordered Sig/Nilda Route Start Time Stop Time Status Last Admin Dose Admin Aspirin (Ecotrin Tab) 81 mg DAILY PO 07/22/17 09:00 08/21/17 08:59 Future hold 07/27/17 08:25 81 MG Atorvastatin Calcium (Lipitor Tab) 40 mg DAILY PO 07/22/17 09:00 08/21/17 08:59 07/27/17 08:25 40 MG Cholecalciferol (Vitamin D Tab) 1,000 inter.unit DAILY PO 07/22/17 09:00 08/21/17 08:59 07/27/17 08:25 1,000 INTER.UNIT Clopidogrel Bisulfate (plAVix TAB) 75 mg DAILY PO 07/22/17 09:00 08/21/17 08:59 Future hold 07/27/17 08:25 75 MG Folic Acid (Folvite Tab) 1 mg DAILY PO 07/22/17 09:00 08/21/17 08:59 07/27/17 08:28 1 MG Insulin Glargine (Lantus Solostar Pen) 44 units QPM SQ 07/22/17 21:00 08/21/17 20:59 07/26/17 21:23 44 UNITS Lisinopril (Zestril Tab) 2.5 mg DAILY PO 07/22/17 09:00 08/21/17 08:59 Future hold 07/27/17 08:27 2.5 MG Magnesium Oxide (Mag-Ox Tab) 400 mg BID PO 07/22/17 09:00 08/21/17 08:59 07/27/17 08:27 400 MG Metoprolol Tartrate (Lopressor Tab) 25 mg BID PO 07/22/17 09:00 08/21/17 08:59 07/27/17 08:25 25 MG Tamsulosin HCl (Flomax Cap) 0.4 mg HS PO 07/22/17 21:00 08/21/17 20:59 07/26/17 21:20 0.4 MG Cyanocobalamin (Vitamin B-12 Tab) 1,000 mcg DAILY PO 07/22/17 09:00 08/21/17 08:59 07/27/17 08:25 1,000 MCG Acetaminophen (Tylenol Tab) 650 mg Q4H PRN PO 07/22/17 01:45 08/21/17 01:44 Al Hydrox/Mg Hydrox/Simethicone (Maalox Max Susp) 15 ml Q4H PRN PO 07/22/17 01:45 08/21/17 01:44 Magnesium Hydroxide (Milk Of Magnesia Susp) 30 ml Q6H PRN PO 07/22/17 01:45 08/21/17 01:44 Polyethylene (Miralax Powder Packet) 17 gm DAILY PRN PO 07/22/17 01:45 08/21/17 01:44 Zolpidem Tartrate (Ambien Tab) 5 mg HSZ PRN PO 07/22/17 01:45 08/21/17 01:44 Ondansetron HCl (Zofran Inj) 4 mg Q6H PRN IV 07/22/17 01:45 08/21/17 01:44 07/22/17 21:02 4 MG Insulin Aspart (novoLOG ASPART) SLIDING SCALE G... ACHS SC 07/22/17 07:00 08/21/17 06:59 07/27/17 14:12 9 UNITS Miscellaneous (Iv Fluids Completed) 1 ea PRN PRN N/A 07/22/17 02:45 07/22/18 02:44 Lidocaine HCl (Xylocaine Jelly 2%) 5 ml UD PRN EXT 07/22/17 08:15 08/21/17 08:14 Amphotericin B 12.5 mg/Sterile Water 250 ml @ 0 mls/hr DAILY@00,06,12,18 IR 07/23/17 00:00 08/02/17 00:00 07/27/17 11:50 250 MLS/HR Caspofungin 50 mg/ Sodium Chloride 260 ml @ 250 mls/hr DAILY IV 07/23/17 09:00 08/02/17 08:59 07/27/17 08:25 250 MLS/HR Heparin Sodium (Porcine) (Heparin 10 Unit/ ml 5 ml Flush) 5 ml PRN PRN FLUSH 07/25/17 12:00 08/24/17 11:59 07/27/17 05:32 5 ML Enoxaparin Sodium (Lovenox Inj) 40 mg Q24H SQ 07/26/17 08:30 08/25/17 08:29 07/27/17 08:29 40 MG Objective Vital Signs Date Time Temp Pulse Resp B/P (MAP) Pulse Ox O2 Delivery O2 Flow Rate FiO2 07/27/17 15:18 36.7 93 18 95/61 (72) 93 Room Air 07/27/17 08:00 Room Air 07/27/17 07:02 37.0 89 20 143/80 (101) 95 Room Air 07/27/17 00:00 Room Air 07/26/17 23:37 36.8 92 20 126/65 (85) 97 Room Air 07/26/17 20:00 Room Air 07/26/17 19:50 96 97/63 (74) 07/26/17 16:15 Room Air Physical Exam General Appearance: no apparent distress, + thin Eyes: normal inspection, EOMI, sclerae normal ENT: normal ENT inspection, hearing grossly normal, pharynx normal Neck: supple, no adenopathy, no JVD, trachea midline Respiratory/Chest: chest non-tender, lungs clear, no respiratory distress, no accessory muscle use, + decreased breath sounds (bases) Cardiovascular: regular rate, rhythm, no edema, no gallop, no JVD, no murmur Abdomen: normal bowel sounds, non tender, soft, no organomegaly Extremities: normal range of motion, non-tender, normal inspection, no pedal edema, no calf tenderness, pelvis stable Neurologic/Psychiatric: simulation developer II-XII nml as tested, alert, normal mood/affect, oriented x 3, + motor weakness Skin: normal color, warm/dry, no rash Laboratory Results Last 24 Hours Test 07/26/17 16:17 07/26/17 20:11 07/27/17 05:31 07/27/17 07:34 Bedside Glucose 226 mg/dl 334 mg/dl 117 mg/dl White Blood Count 12.94 K/uL Red Blood Count 3.03 M/uL Hemoglobin 9.4 g/dL Hematocrit 28.4 % Mean Corpuscular Volume 93.7 fL Mean Corpuscular Hemoglobin 31.0 pg Mean Corpuscular Hemoglobin Concent 33.1 g/dl RDW Standard Deviation 48.8 fL RDW Coefficient of Variation 14.4 % Platelet Count 499 K/uL Mean Platelet Volume 9.3 fL Assessment and Plan 67 y/o male admitted 07/22/2017with gross hematuria with clots - Acute pyelonephritis, cystis due to yeast (not Angelica albicans) today is day 6 out of 14 of Caspofungin IV day 5 out of 5 of bladder irrigation with Amphotericin B Urology on the case , Clamp CBI, avoid stent for now, f/u appt with Dr. Garcia on Aug 13 at 3:15. 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 resume ASA and Plavix , Resume lisinopril, Continue Lopressor 25 mg PO BID, atorvastatin 40 mg PO qd Chronic systolic CHF--stable, Uncontrolled DM II--last HgbA1c checked 03/03/17 was 8.6, continue current care, counselling patient about the importance about blood glucose control and avoid medications from diabetic BPH with bladder outlet obstruction, chronic Hallman--ongoing -Continue Flomax 0.4 mg PO hs Disp: applying for auth for [facility] for Caspofungin IV, would need 8 more days of treatment Continued [facility] stay due to: multiple IV medications needed Discharge planning: senior care facility
[2017-07-27] MEDS: INSULIN GLARGINE SOLOSTAR 100 UNITS/ML 3 ML PEN SQ SCH (19:52)
[2017-07-27 19:59] VITALS: BP 98/62; PULSE 89
--- NOTE | 2017-07-27 20:53 | Infectious Disease Progress Nt ---
Progress Note Date of Service Jul 27, 2017. Subjective Pt evaluation today including: conversation w/ patient, physical exam, chart review, lab review, review of studies, conversation w/ security consultant, review of inpatient medication list Patient offering no new complaints. Denies increase in shortness of breath or cough. Tolerating caspofungin without apparent difficulty. All Other Systems: Reviewed and Negative Medications Current Inpatient Medications Medications (Trade) Dose Ordered Sig/Nilda Route Start Time Stop Time Status Last Admin Dose Admin Aspirin (Ecotrin Tab) 81 mg DAILY PO 07/22/17 09:00 08/21/17 08:59 Future hold 07/27/17 08:25 81 MG Atorvastatin Calcium (Lipitor Tab) 40 mg DAILY PO 07/22/17 09:00 08/21/17 08:59 07/27/17 08:25 40 MG Cholecalciferol (Vitamin D Tab) 1,000 inter.unit DAILY PO 07/22/17 09:00 08/21/17 08:59 07/27/17 08:25 1,000 INTER.UNIT Clopidogrel Bisulfate (plAVix TAB) 75 mg DAILY PO 07/22/17 09:00 08/21/17 08:59 Future hold 07/27/17 08:25 75 MG Folic Acid (Folvite Tab) 1 mg DAILY PO 07/22/17 09:00 08/21/17 08:59 07/27/17 08:28 1 MG Insulin Glargine (Lantus Solostar Pen) 44 units QPM SQ 07/22/17 21:00 08/21/17 20:59 07/27/17 19:52 44 UNITS Lisinopril (Zestril Tab) 2.5 mg DAILY PO 07/22/17 09:00 08/21/17 08:59 Future hold 07/27/17 08:27 2.5 MG Magnesium Oxide (Mag-Ox Tab) 400 mg BID PO 07/22/17 09:00 08/21/17 08:59 07/27/17 08:27 400 MG Metoprolol Tartrate (Lopressor Tab) 25 mg BID PO 07/22/17 09:00 08/21/17 08:59 07/27/17 08:25 25 MG Tamsulosin HCl (Flomax Cap) 0.4 mg HS PO 07/22/17 21:00 08/21/17 20:59 07/26/17 21:20 0.4 MG Cyanocobalamin (Vitamin B-12 Tab) 1,000 mcg DAILY PO 07/22/17 09:00 08/21/17 08:59 07/27/17 08:25 1,000 MCG Acetaminophen (Tylenol Tab) 650 mg Q4H PRN PO 07/22/17 01:45 08/21/17 01:44 Al Hydrox/Mg Hydrox/Simethicone (Maalox Max Susp) 15 ml Q4H PRN PO 07/22/17 01:45 08/21/17 01:44 Magnesium Hydroxide (Milk Of Magnesia Susp) 30 ml Q6H PRN PO 07/22/17 01:45 08/21/17 01:44 Polyethylene (Miralax Powder Packet) 17 gm DAILY PRN PO 07/22/17 01:45 08/21/17 01:44 Zolpidem Tartrate (Ambien Tab) 5 mg HSZ PRN PO 07/22/17 01:45 08/21/17 01:44 Ondansetron HCl (Zofran Inj) 4 mg Q6H PRN IV 07/22/17 01:45 08/21/17 01:44 07/22/17 21:02 4 MG Insulin Aspart (novoLOG ASPART) SLIDING SCALE G... ACHS SC 07/22/17 07:00 08/21/17 06:59 07/27/17 19:52 4 UNITS Miscellaneous (Iv Fluids Completed) 1 ea PRN PRN N/A 07/22/17 02:45 07/22/18 02:44 Lidocaine HCl (Xylocaine Jelly 2%) 5 ml UD PRN EXT 07/22/17 08:15 08/21/17 08:14 Amphotericin B 12.5 mg/Sterile Water 250 ml @ 0 mls/hr DAILY@00,06,12,18 IR 07/23/17 00:00 08/02/17 00:00 07/27/17 17:17 250 MLS/HR Caspofungin 50 mg/ Sodium Chloride 260 ml @ 250 mls/hr DAILY IV 07/23/17 09:00 08/02/17 08:59 07/27/17 08:25 250 MLS/HR Heparin Sodium (Porcine) (Heparin 10 Unit/ ml 5 ml Flush) 5 ml PRN PRN FLUSH 07/25/17 12:00 08/24/17 11:59 07/27/17 05:32 5 ML Enoxaparin Sodium (Lovenox Inj) 40 mg Q24H SQ 07/26/17 08:30 08/25/17 08:29 07/27/17 08:29 40 MG Objective Vital Signs Date Time Temp Pulse Resp B/P (MAP) Pulse Ox O2 Delivery O2 Flow Rate FiO2 07/27/17 19:59 89 98/62 (74) 07/27/17 16:00 Room Air 07/27/17 15:18 36.7 93 18 95/61 (72) 93 Room Air 07/27/17 08:00 Room Air 07/27/17 07:02 37.0 89 20 143/80 (101) 95 Room Air 07/27/17 00:00 Room Air 07/26/17 23:37 36.8 92 20 126/65 (85) 97 Room Air Physical Exam General Appearance: WD/WN, no apparent distress Eyes: normal inspection, sclerae normal ENT: normal ENT inspection, pharynx normal Neck: supple, no adenopathy, trachea midline Respiratory/Chest: chest non-tender, lungs clear, normal breath sounds, no respiratory distress Cardiovascular: regular rate, rhythm, no gallop, no murmur Abdomen: normal bowel sounds, non tender, soft, no organomegaly Extremities: non-tender, no calf tenderness Neurologic/Psychiatric: alert, oriented x 3 Skin: normal color, no rash Lymphatic: no adenopathy Laboratory Results Last 24 Hours Test 07/27/17 05:31 07/27/17 07:34 07/27/17 11:33 White Blood Count 12.94 K/uL Red Blood Count 3.03 M/uL Hemoglobin 9.4 g/dL Hematocrit 28.4 % Mean Corpuscular Volume 93.7 fL Mean Corpuscular Hemoglobin 31.0 pg Mean Corpuscular Hemoglobin Concent 33.1 g/dl RDW Standard Deviation 48.8 fL RDW Coefficient of Variation 14.4 % Platelet Count 499 K/uL Mean Platelet Volume 9.3 fL Bedside Glucose 117 mg/dl 228 mg/dl Assessment and Plan 67-year-old poorly controlled diabetic male with indwelling Miller catheter, with evidence of persistent non Angelica albicans yeast infection. Likely has involvement of kidneys as well with developing emphysematous pyelonephritis. As discussed, patient is to be treated with combination of IV caspofungin and 5 day course of amphotericin B bladder irrigation. He should complete his planned course of Zosyn for his sacral osteomyelitis. Will follow.
[2017-07-27] MEDS: TAMSULOSIN HCL 0.4 MG CAP PO SCH (21:10)
[2017-07-28 01:19] VITALS: BP 102/61; PULSE 84; TEMP 36.7; O2SAT 95
[2017-07-28] MEDS: AMPHOTERICIN B IRRIGATION IR SCH (05:56)
[2017-07-28] MEDS: STERILE WATER IR SCH (05:56)
[2017-07-28 05:59] LABS: HEMATOCRIT 29.5 % (42-52); HEMOGLOBIN 9.6 g/dL (14.0-18.0); MEAN CELL VOLUME 94.6 fL (80-100); MEAN CORPUSCULAR HEMOGLOBIN 30.8 pg (25-34); MEAN CORPUSCULAR HGB CONC 32.5 g/dl (32-36); MEAN PLATELET VOLUME 9.5 fL (7.4-10.4); PLATELET COUNT 549 K/uL (130-400); RED CELL DISTRIBUTION WIDTH CV 14.6 % (11.5-14.5); RED CELL DISTRIBUTION WIDTH SD 50.1 fL (36.4-46.3); WHITE BLOOD COUNT 13.98 K/uL (4.8-10.8)
[2017-07-28] MEDS: CASPOFUNGIN INJ 50 MG in SODIUM CHLORIDE 0.9% 250ML 250 ML IV SCH (07:50)
[2017-07-28 07:59] VITALS: BP 146/76; PULSE 94; TEMP 36.5; O2SAT 99
[2017-07-28] MEDS ORDERED: NURSING DECISION MEDICATION ORDER SCH (08:30)
[2017-07-28] MEDS: MAGNESIUM OXIDE 400 MG TAB PO SCH ×2 (08:54→20:42)
[2017-07-28] MEDS: CHOLECALCIFEROL 1000 INTER.UNIT TAB PO SCH (08:54)
[2017-07-28] MEDS: ENOXAPARIN 40 MG/0.4 ML SYR SQ SCH (08:54)
[2017-07-28] MEDS: CYANOCOBALAMIN 500 MCG TAB (VIT B-12) PO SCH (08:54)
[2017-07-28] MEDS: CLOPIDOGREL BISULFATE 75 MG TAB PO SCH (08:54)
[2017-07-28] MEDS: ASPIRIN 81 MG ECTAB PO SCH (08:55)
[2017-07-28] MEDS: LISINOPRIL 2.5 MG TAB PO SCH (08:55)
[2017-07-28] MEDS: METOPROLOL TARTRATE 25 MG TAB PO SCH ×2 (08:55→20:42)
[2017-07-28] MEDS: ATORVASTATIN 40 MG TAB PO SCH (08:55)
[2017-07-28] MEDS: INSULIN ASPART 100 UNITS/ML 3 ML PEN SC SCH ×4 (08:58→20:45)
--- NOTE | 2017-07-28 09:10 | Hospitalist Progress Note ---
Hospitalist Progress Note Date of Service Jul 28, 2017. Subjective Pt evaluation today including: conversation w/ patient, physical exam, chart review, lab review, review of studies Pain: None PO Intake: Good Voiding: hallman catheter in place (draining red urine) The patient was seen and examined this morning. Pt reports doing fairly well today. He has been up ambulating about the room without difficulty. Pt is tolerating PO intake. He denies any issues with bladder irrigation, cramping or abdominal pain. Discussion was held regarding likely discharge to [facility] in next day or so when a bed becomes available. He is requesting double portions of food due to some weight loss recently, and also boost daily which he normally uses at home. Additional Comments: Constitutional: No fever, sweats or chills Eyes: No diplopia, no worsening or blurred vision ENT: normal hearing, no trouble swallowing Respiratory: No cough, sputum, dyspnea at rest or on exertion Cardiovascular: No chest pain, tightness or palpitations Abdomen: No pain, nausea, vomiting, diarrhea or constipation Musculoskeletal: No joint pain, calf pain, swelling Neurologic: No weakness, numbness/tingling, or balance problems Psychiatric: No anxiety or depression Skin: No rash or itch Objective Vital Signs Date Time Temp Pulse Resp B/P (MAP) Pulse Ox O2 Delivery O2 Flow Rate FiO2 07/28/17 07:59 36.5 94 18 146/76 (99) 99 07/28/17 01:19 36.7 84 18 102/61 (75) 95 Room Air 07/28/17 00:00 Room Air 07/27/17 19:59 89 98/62 (74) 07/27/17 16:00 Room Air 07/27/17 15:18 36.7 93 18 95/61 (72) 93 Room Air Physical Exam Notes: General: awake, alert, no apparent distress, lying flat in bed on waffle mattress Head: Normocephalic, atraumatic ENT: PERRL, EOMI, no pharyngeal exudate, mucous membranes moist Chest: Clear to auscultation, on room air, no adventitious breath sounds Cardiac: Regular rate and rhythm, soft systolic murmur, no JVD, normal peripheral pulses, good capillary refill Abdominal: NABS x 4 quadrants, soft, nontender to palpation, no rebound, guarding or tenderness, + Hallman catheter in place, clear yellow urine in tubing but bag contains red urine with small clots Extremities: Waffle boots on BLE, Normal inspection, no peripheral edema or erythema, calfs nontender to palpation Psych: Normal mood and affect Neuro: AAO x 3, speech is clear, no peripheral sensory deficits Laboratory Results Last 24 Hours Test 07/27/17 11:33 07/27/17 16:27 07/27/17 19:45 07/28/17 05:22 Bedside Glucose 228 mg/dl 228 mg/dl 172 mg/dl White Blood Count 13.98 K/uL Red Blood Count 3.12 M/uL Hemoglobin 9.6 g/dL Hematocrit 29.5 % Mean Corpuscular Volume 94.6 fL Mean Corpuscular Hemoglobin 30.8 pg Mean Corpuscular Hemoglobin Concent 32.5 g/dl RDW Standard Deviation 50.1 fL RDW Coefficient of Variation 14.6 % Platelet Count 549 K/uL Mean Platelet Volume 9.5 fL Assessment and Plan 67 y/o male admitted 07/22/2017 with gross hematuria with clots Acute pyelonephritis, cystis due to yeast (not Angelica albicans) - Day 7 out of 14 of Caspofungin IV - pt will be able to complete course at [facility] - Finished 5 day course of bladder irrigation with Amphotericin B on 07/27 - Urology on the case, Clamp CBI, avoid stent for now, f/u appt with Dr. Garcia on Aug 13 at 3:15. 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 resume ASA and Plavix, Resume lisinopril, Continue Lopressor 25 mg PO BID, atorvastatin 40 mg PO qd Chronic systolic CHF -stable Uncontrolled DM II- -last HgbA1c 07/23 = 9.2, continue current care, counselling patient about the importance about blood glucose control and avoid medications from diabetic BPH with bladder outlet obstruction, chronic Hallman--ongoing -Continue Flomax 0.4 mg PO hs Disp: Auth for [facility] accepted, no beds today but likely tomorrow, needs 1 more week of Caspofungin IV
[2017-07-28] MEDS ORDERED: COUGH DROP (SUGAR FREE) LOZ 24 LOZ/1 BOX LOZ PRN (09:15)
[2017-07-28] MEDS: BOOST VANILLA PO SCH (14:05)
--- NOTE | 2017-07-28 14:54 | Infectious Disease Progress Nt ---
Progress Note Date of Service Jul 28, 2017. Subjective Pt evaluation today including: conversation w/ patient, physical exam, chart review, lab review, review of studies, conversation w/ family consultant, review of inpatient medication list Patient states he is feeling better. Ambulating more. No new complaints. Remains afebrile. All Other Systems: Reviewed and Negative Medications Current Inpatient Medications Medications (Trade) Dose Ordered Sig/Nilda Route Start Time Stop Time Status Last Admin Dose Admin Aspirin (Ecotrin Tab) 81 mg DAILY PO 07/22/17 09:00 08/21/17 08:59 Future hold 07/28/17 08:55 81 MG Atorvastatin Calcium (Lipitor Tab) 40 mg DAILY PO 07/22/17 09:00 08/21/17 08:59 07/28/17 08:55 40 MG Cholecalciferol (Vitamin D Tab) 1,000 inter.unit DAILY PO 07/22/17 09:00 08/21/17 08:59 07/28/17 08:54 1,000 INTER.UNIT Clopidogrel Bisulfate (plAVix TAB) 75 mg DAILY PO 07/22/17 09:00 08/21/17 08:59 Future hold 07/28/17 08:54 75 MG Folic Acid (Folvite Tab) 1 mg DAILY PO 07/22/17 09:00 08/21/17 08:59 07/28/17 08:55 1 MG Insulin Glargine (Lantus Solostar Pen) 44 units QPM SQ 07/22/17 21:00 08/21/17 20:59 07/27/17 19:52 44 UNITS Lisinopril (Zestril Tab) 2.5 mg DAILY PO 07/22/17 09:00 08/21/17 08:59 Future hold 07/28/17 08:55 2.5 MG Magnesium Oxide (Mag-Ox Tab) 400 mg BID PO 07/22/17 09:00 08/21/17 08:59 07/28/17 08:54 400 MG Metoprolol Tartrate (Lopressor Tab) 25 mg BID PO 07/22/17 09:00 08/21/17 08:59 07/28/17 08:55 25 MG Tamsulosin HCl (Flomax Cap) 0.4 mg HS PO 07/22/17 21:00 08/21/17 20:59 07/27/17 21:10 0.4 MG Cyanocobalamin (Vitamin B-12 Tab) 1,000 mcg DAILY PO 07/22/17 09:00 08/21/17 08:59 07/28/17 08:54 1,000 MCG Acetaminophen (Tylenol Tab) 650 mg Q4H PRN PO 07/22/17 01:45 08/21/17 01:44 Al Hydrox/Mg Hydrox/Simethicone (Maalox Max Susp) 15 ml Q4H PRN PO 07/22/17 01:45 08/21/17 01:44 Magnesium Hydroxide (Milk Of Magnesia Susp) 30 ml Q6H PRN PO 07/22/17 01:45 08/21/17 01:44 Polyethylene (Miralax Powder Packet) 17 gm DAILY PRN PO 07/22/17 01:45 08/21/17 01:44 Zolpidem Tartrate (Ambien Tab) 5 mg HSZ PRN PO 07/22/17 01:45 08/21/17 01:44 Ondansetron HCl (Zofran Inj) 4 mg Q6H PRN IV 07/22/17 01:45 08/21/17 01:44 07/22/17 21:02 4 MG Insulin Aspart (novoLOG ASPART) SLIDING SCALE G... ACHS SC 07/22/17 07:00 08/21/17 06:59 07/28/17 13:40 4 UNITS Miscellaneous (Iv Fluids Completed) 1 ea PRN PRN N/A 07/22/17 02:45 07/22/18 02:44 Lidocaine HCl (Xylocaine Jelly 2%) 5 ml UD PRN EXT 07/22/17 08:15 08/21/17 08:14 Caspofungin 50 mg/ Sodium Chloride 260 ml @ 250 mls/hr DAILY IV 07/23/17 09:00 08/02/17 08:59 07/28/17 07:50 250 MLS/HR Heparin Sodium (Porcine) (Heparin 10 Unit/ ml 5 ml Flush) 5 ml PRN PRN FLUSH 07/25/17 12:00 08/24/17 11:59 07/28/17 12:03 5 ML Enoxaparin Sodium (Lovenox Inj) 40 mg Q24H SQ 07/26/17 08:30 08/25/17 08:29 07/28/17 08:54 40 MG Menthol (Nice Lisandro) 1 lisandro PRN PRN LISANDRO 07/28/17 09:15 08/27/17 09:14 Enteral Nutritional Formula (Boost) 1 can DAILY PO 07/28/17 12:45 08/27/17 12:44 07/28/17 14:05 1 CAN Objective Vital Signs Date Time Temp Pulse Resp B/P (MAP) Pulse Ox O2 Delivery O2 Flow Rate FiO2 07/28/17 08:00 Room Air 07/28/17 07:59 36.5 94 18 146/76 (99) 99 07/28/17 01:19 36.7 84 18 102/61 (75) 95 Room Air 07/28/17 00:00 Room Air 07/27/17 19:59 89 98/62 (74) 07/27/17 16:00 Room Air 07/27/17 15:18 36.7 93 18 95/61 (72) 93 Room Air Physical Exam General Appearance: WD/WN, no apparent distress Eyes: normal inspection, sclerae normal ENT: normal ENT inspection, pharynx normal Neck: supple, no adenopathy, trachea midline Respiratory/Chest: chest non-tender, lungs clear, normal breath sounds, no respiratory distress Cardiovascular: regular rate, rhythm, no gallop, no murmur Abdomen: normal bowel sounds, non tender, soft, no organomegaly Extremities: non-tender, no calf tenderness Neurologic/Psychiatric: alert, oriented x 3 Skin: normal color, no rash Lymphatic: no adenopathy Laboratory Results Last 24 Hours Test 07/27/17 16:27 07/27/17 19:45 07/28/17 05:22 Bedside Glucose 228 mg/dl 172 mg/dl White Blood Count 13.98 K/uL Red Blood Count 3.12 M/uL Hemoglobin 9.6 g/dL Hematocrit 29.5 % Mean Corpuscular Volume 94.6 fL Mean Corpuscular Hemoglobin 30.8 pg Mean Corpuscular Hemoglobin Concent 32.5 g/dl RDW Standard Deviation 50.1 fL RDW Coefficient of Variation 14.6 % Platelet Count 549 K/uL Mean Platelet Volume 9.5 fL Assessment and Plan 67-year-old poorly controlled diabetic male with indwelling Miller catheter, with evidence of persistent non Angelica albicans yeast infection. Likely has involvement of kidneys as well with developing emphysematous pyelonephritis. As discussed, patient is to be treated with combination of IV caspofungin and 5 day course of amphotericin B bladder irrigation. He should complete his planned course of Zosyn for his sacral osteomyelitis. Will follow.
[2017-07-28 15:49] VITALS: BP 127/71; PULSE 84; TEMP 36.7; O2SAT 99
[2017-07-28] MEDS: TAMSULOSIN HCL 0.4 MG CAP PO SCH (20:42)
[2017-07-28] MEDS: INSULIN GLARGINE SOLOSTAR 100 UNITS/ML 3 ML PEN SQ SCH (20:45)
[2017-07-28 23:08] VITALS: BP 106/62; PULSE 84; TEMP 36.7; O2SAT 95
[2017-07-29 06:29] LABS: HEMATOCRIT 27.9 % (42-52); MEAN CELL VOLUME 94.9 fL (80-100); MEAN CORPUSCULAR HEMOGLOBIN 30.6 pg (25-34); MEAN CORPUSCULAR HGB CONC 32.3 g/dl (32-36); MEAN PLATELET VOLUME 9.6 fL (7.4-10.4); PLATELET COUNT 533 K/uL (130-400); RED CELL DISTRIBUTION WIDTH CV 14.4 % (11.5-14.5); WHITE BLOOD COUNT 13.62 K/uL (4.8-10.8)
[2017-07-29 06:55] LABS: CREATININE 1.15 mg/dl (0.60-1.40)
[2017-07-29 07:46] VITALS: BP 115/70; PULSE 80; TEMP 36.7; O2SAT 98
[2017-07-29] MEDS: CLOPIDOGREL BISULFATE 75 MG TAB PO SCH (08:47)
[2017-07-29] MEDS: MAGNESIUM OXIDE 400 MG TAB PO SCH ×2 (08:47→21:21)
[2017-07-29] MEDS: ATORVASTATIN 40 MG TAB PO SCH (08:47)
[2017-07-29] MEDS: ASPIRIN 81 MG ECTAB PO SCH (08:47)
[2017-07-29] MEDS: METOPROLOL TARTRATE 25 MG TAB PO SCH ×2 (08:47→21:20)
[2017-07-29] MEDS: CYANOCOBALAMIN 500 MCG TAB (VIT B-12) PO SCH (08:47)
[2017-07-29] MEDS: CHOLECALCIFEROL 1000 INTER.UNIT TAB PO SCH (08:48)
[2017-07-29] MEDS: LISINOPRIL 2.5 MG TAB PO SCH (08:48)
[2017-07-29] MEDS: ENOXAPARIN 40 MG/0.4 ML SYR SQ SCH (08:50)
[2017-07-29] MEDS: CASPOFUNGIN INJ 50 MG in SODIUM CHLORIDE 0.9% 250ML 250 ML IV SCH (08:50)
[2017-07-29] MEDS: INSULIN ASPART 100 UNITS/ML 3 ML PEN SC SCH ×4 (08:54→21:25)
[2017-07-29] MEDS: BOOST VANILLA PO SCH (08:55)
[2017-07-29] MEDS ORDERED: MRLP17 PO (14:19)
[2017-07-29] MEDS ORDERED: Boost PO (14:19)
--- NOTE | 2017-07-29 14:43 | Discharge Instructions ---
Discharge Instructions Date of Service Jul 29, 2017. Admission Reason for Admission: Hematuria,Needs Picc Discharge Discharge Diagnosis / Problem: Urinary fungal infection Discharge Goals Goal(s): Decrease discomfort, Improve function, Increase independence, Improve disease control Activity Recommendations Activity Limitations: per Instructions/Follow-up section Lifting Limitations: no more than 25 pounds, gradually increase as tolerated Exercise/Sports Limitations: rest today, gradually increase as tolerated Shower/Bathe: no limitations Driving or Machine Use: until cleared by your PCP . Instructions / Follow-Up Instructions / Follow-Up You were admitted to [facility] [place] with hematuria, acute cystitis and diagnosed with urinary fungal infection. During your stay here you were treated with IV antibiotics and antifungal medications. During your stay in the hospital you completed a 5 day course of amphotericin (antifungal). You were also on caspofungin (antifungal) and will need to continue this infusion until 08/04/17 at [facility]. This will compete a 2 week course. You finished a course of Zosn for recent osteomyelitis in the lower back sacral area Medications: Continue taking your medications as prescribed. Continue caspofungin infusion, complete on 08/03/17. Appointments: Follow up with your Primary Care Provider within 1 week. Follow up with wound care at [facility] and within 1 week after discharge from home there. Follow up with infectious disease within 1-2 weeks after discharge from [facility]. Current Hospital Diet Patient's current hospital diet: AHA Diet (Heart Healthy), Diabetes Type 2 Diet Discharge Diet Recommended Diet: AHA Diet (Heart Healthy), Diabetes Type 2 Diet Pending Studies Studies pending at discharge: no Laboratory Results Hemoglobin A1c Test 07/23/17 03:27 Range/Units Estimated Average Glucose 217 mg/dl Hemoglobin A1c 9.2 H 4.5-5.6 % Medical Emergencies . Who to Call and When: Medical Emergencies: If at any time you feel your situation is an emergency, please call 911 immediately. . Non-Emergent Contact Non-Emergency issues call your: Primary Care Provider Call Non-Emergent contact if: you have a fever, temperature is above 100.5, your pain is not controlled, your pain is worsening, your pain is unusual for you, your pain is concerning you, you have any medication questions other concerns with your health. Call 911 or go directly to the Emergency Department if you experience any of the following: Chest pain, chest tightness, shortness of breath, abdominal pain , lightheadedness, dizziness, gastrointestinal bleeding, or have any other concerns regarding your health. . Past History Medical & Surgical History: (1) Urinary tract infection (2) Hematuria (3) Hypertension (4) Acute renal insufficiency (5) DM II (diabetes mellitus, type II), controlled (6) PICC (peripherally inserted central catheter) in place . "Provider Documentation" section prepared by Rosalva Magallon. . VTE Core Measure Inpt VTE Proph given/why not?: Blanquita Mcleod, SCD's
--- NOTE | 2017-07-29 14:59 | Discharge Summary ---
Discharge Summary Date of Service Jul 29, 2017. 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 Marked circumferential wall thickening of the urinary bladder with perivesicular inflammatory stranding suggests cystitis. Additionally, there is a large degree of hemorrhage within the urinary bladder lumen which is new from comparison. Correlate with urinalysis. 2. Air is again seen within the urinary bladder lumen and also within the left renal collecting system. Gas forming organism with cystitis and emphysematous pyelitis should be considered, however this may also be secondary to instrumentation with reflux of air. 3. Moderate to severe left and moderate right hydronephrosis with improvement on the right. 4. Persistent bilateral perinephric stranding suggests pyelonephritis. 5. Unchanged retroperitoneal adenopathy, likely reactive. 6. Cholelithiasis. 7. Suggested constipation. 8. Unchanged small fluid collection adjacent to the coccyx with mild coccygeal erosion. (RENAL)RETROPERITON COMP 07/22/17 IMPRESSION: 1. Bilateral renal hydronephrosis similar compared to the prior CT study.. 2. Moderate increase in cortical echogenicity on a chronic basis. 3. No evidence for abscess or collection. 4. Trace air within the left renal pelvis possibly secondary to the continual bladder irrigation. ULTRASOUND KIDNEYS AND BLADDER 08/07/17 IMPRESSION: 1. The kidneys normal in size. 2. There is fullness of the right renal collecting system without jose daniel hydronephrosis. 3. Mild to moderate left-sided hydronephrosis is identified, and this is similar to the 07/23/2017 examination. Small foci of gas are noted in the left renal pelvis. 4. The bladder is decompressed but appears thick walled. Foci of intraluminal gas are identified. Consultations: Infectious Disease Wound care Medication Reconciliation New Medications: Polyethylene (Miralax) 17 Gm Pow 17 GM PO DAILY PRN for Constipation for 30 Days, #30 DOSE [Boost] () 1 CAN LIQD 1 CAN PO DAILY for 30 Days, #30 DOSE Continued Medications: Aspirin (Aspirin Ec) 81 Mg Tab 81 MG PO DAILY Atorvastatin (Lipitor) 40 Mg Tab 40 MG PO DAILY, TAB Cholecalciferol (Vitamin D) 1,000 Unit Tab 1000 UNITS PO DAILY Clopidogrel (Plavix) 75 Mg Tab 75 MG PO DAILY, TAB Cyanocobalamin (Vitamin B12) 1,000 Mcg Tab 1000 MCG PO DAILY Folic Acid (Folvite) 1 Mg Tab 1 MG PO DAILY, TAB Insulin Glargine (Lantus Solostar) 100 Unit/Ml Inj 44 UNITS SQ QPM, PEN Lisinopril (Zestril) 2.5 Mg Tab 2.5 MG PO DAILY Magnesium Oxide (Mag-Ox) 400 Mg Tab 400 MG PO BID, TAB Methenamine Hippurate (Methenamine Hippurate) 1 Gm Tab 1 GM PO BID Metoprolol Tartrate (Lopressor) 25 Mg Tab 25 MG PO BID, TAB Senna (Senokot) 8.6 Mg Tab 1 TAB PO DAILY PRN for Constipation Tamsulosin Hcl (Flomax) 0.4 Mg Cap 0.4 MG PO HS, CAP Discontinued Medications: Piperacillin Sodium-Tazobactam (Zosyn) 1 Inj Inj 3.375 GM IV DIRECTED Discharge Exam The patient was seen and examined this morning. Pt reports doing well today. He has no acute complaints. He has no pain with associated leg wounds, sacral wounds. Tolerating a PO diet well, bowels are moving without difficulty. He has been ambulating with walker with assistance. Pt denies any other acute complaints. ROS: Constitutional: No fever, sweats or chills Eyes: No diplopia, no worsening or blurred vision ENT: normal hearing, no trouble swallowing Respiratory: No cough, sputum, dyspnea at rest or on exertion Cardiovascular: No chest pain, tightness or palpitations Abdomen: No pain, nausea, vomiting, diarrhea or constipation Musculoskeletal: No joint pain, calf pain, swelling Neurologic: No weakness, numbness/tingling, or balance problems Psychiatric: No anxiety or depression Skin: No rash or itch PE: General: awake, alert, no apparent distress, lying flat in bed on waffle mattress Head: Normocephalic, atraumatic ENT: PERRL, EOMI, no pharyngeal exudate, mucous membranes moist Chest: Clear to auscultation, on room air, no adventitious breath sounds Cardiac: Regular rate and rhythm, soft systolic murmur, no JVD, normal peripheral pulses, good capillary refill Abdominal: NABS x 4 quadrants, soft, nontender to palpation, no rebound, guarding or tenderness, + Miller catheter in place, clear yellow urine draining Extremities: Waffle boots on BLE, Normal inspection, no peripheral edema or erythema, calfs nontender to palpation Psych: Normal mood and affect Neuro: AAO x 3, speech is clear, no peripheral sensory deficits Hospital Course 67 y/o male admitted 07/22/2017 with gross hematuria with clots Acute pyelonephritis, cystis due to yeast (not Donis albicans) - Finish Caspofungin IV on 08/04. - Finished 5 day course of bladder irrigation with Amphotericin B on 07/27 - Urology on the case, Clamp CBI, avoid stent for now, f/u appt with Dr. Garcia on Aug 13 at 3:15. 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 Renal U/S from 07/23 reviewed. - baseline around 1.1-1.2 in past week, patient tolerating PO fluids well. HTN - continue lisinopril 2.5 mg PO qd CAD, h/o NSTEMI 02/2017, HTN, HLD - stable, asymptomatic. resume ASA and Plavix, Resume lisinopril, Continue Lopressor 25 mg PO BID, atorvastatin 40 mg PO qd Chronic systolic CHF -stable Uncontrolled DM II- - last HgbA1c 07/23 = 9.2, continue current care, counselling patient about the importance about blood glucose control and avoid medications from diabetic - Will adjust ISS to tighten coverage, CF or 25 and carb ratio of 1:8. As outpatient can have fixed novolog dosing with 5 U novolog with meals. BPH with bladder outlet obstruction, chronic Miller--ongoing -Continue Flomax 0.4 mg PO hs CODE STATUS: FULL Disp: Discharged today. Continue home health PT/OT. Total Time Spent: Greater than 30 minutes This includes examination of the patient, discharge planning, medication reconciliation, and communication with other providers. Discharge Instructions Please refer to the electronic Patient Visit Report (Discharge Instructions) for additional information. Follow-Up Follow up with your Primary Care Provider within 1 week. Follow up with wound care within 1 week after discharge from nursing facility Additional Copies To Barb Gray M.D.
--- NOTE | 2017-07-29 15:00 | Hospitalist Progress Note ---
Hospitalist Progress Note Date of Service Jul 29, 2017. Subjective Pt evaluation today including: conversation w/ patient, physical exam, chart review, lab review, review of studies The patient was seen and examined this morning. Pt reports doing well today. He has no acute complaints. He has no pain with associated leg wounds, sacral wounds. Tolerating a PO diet well, bowels are moving without difficulty. Pt anticipating discharge to [facility] soon. ROS: Constitutional: No fever, sweats or chills Eyes: No diplopia, no worsening or blurred vision ENT: normal hearing, no trouble swallowing Respiratory: No cough, sputum, dyspnea at rest or on exertion Cardiovascular: No chest pain, tightness or palpitations Abdomen: No pain, nausea, vomiting, diarrhea or constipation Musculoskeletal: No joint pain, calf pain, swelling Neurologic: No weakness, numbness/tingling, or balance problems Psychiatric: No anxiety or depression Skin: No rash or itch PE: General: awake, alert, no apparent distress, lying flat in bed on waffle mattress Head: Normocephalic, atraumatic ENT: PERRL, EOMI, no pharyngeal exudate, mucous membranes moist Chest: Clear to auscultation, on room air, no adventitious breath sounds Cardiac: Regular rate and rhythm, soft systolic murmur, no JVD, normal peripheral pulses, good capillary refill Abdominal: NABS x 4 quadrants, soft, nontender to palpation, no rebound, guarding or tenderness, + Miller catheter in place, clear yellow urine in tubing but bag contains red urine with small clots Extremities: Waffle boots on BLE, Normal inspection, no peripheral edema or erythema, calfs nontender to palpation Psych: Normal mood and affect Neuro: AAO x 3, speech is clear, no peripheral sensory deficits Objective Vital Signs Date Time Temp Pulse Resp B/P (MAP) Pulse Ox O2 Delivery O2 Flow Rate FiO2 07/29/17 08:30 Room Air 07/29/17 07:46 36.7 80 18 115/70 (85) 98 07/29/17 00:00 Room Air 07/28/17 23:08 36.7 84 18 106/62 (77) 95 Room Air 07/28/17 16:00 Room Air 07/28/17 15:49 36.7 84 16 127/71 (89) 99 Room Air Laboratory Results Last 24 Hours Test 07/28/17 16:15 07/28/17 20:04 07/29/17 05:26 07/29/17 07:18 Bedside Glucose 229 mg/dl 211 mg/dl 150 mg/dl White Blood Count 13.62 K/uL Red Blood Count 2.94 M/uL Hemoglobin 9.0 g/dL Hematocrit 27.9 % Mean Corpuscular Volume 94.9 fL Mean Corpuscular Hemoglobin 30.6 pg Mean Corpuscular Hemoglobin Concent 32.3 g/dl RDW Standard Deviation 50.0 fL RDW Coefficient of Variation 14.4 % Platelet Count 533 K/uL Mean Platelet Volume 9.6 fL Creatinine 1.15 mg/dl Est Creatinine Clear Calc Drug Dose 61.4 ml/min Estimated GFR () 74.8 Estimated GFR (Non- 64.6 Assessment and Plan 67 y/o male admitted 07/22/2017 with gross hematuria with clots Acute pyelonephritis, cystis due to yeast (not Angelica albicans) - Day 8 out of 14 of Caspofungin IV - pt will be able to complete course at [facility]. Finish on 08/04. - Finished 5 day course of bladder irrigation with Amphotericin B on 07/27 - Urology on the case, Clamp CBI, avoid stent for now, f/u appt with Dr. Garcia on Aug 13 at 3:15. 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 resume ASA and Plavix, Resume lisinopril, Continue Lopressor 25 mg PO BID, atorvastatin 40 mg PO qd Chronic systolic CHF -stable Uncontrolled DM II- - last HgbA1c 07/23 = 9.2, continue current care, counselling patient about the importance about blood glucose control and avoid medications from diabetic - Will adjust ISS to tighten coverage, CF or 25 and carb ratio of 1:8. As outpatient can have fixed novolog dosing with 5 U novolog with meals. BPH with bladder outlet obstruction, chronic Miller--ongoing -Continue Flomax 0.4 mg PO hs Disp: Auth for [facility] accepted, discharge within 24 hours. Awaiting insurance auth
[2017-07-29 15:19] VITALS: BP 131/67; PULSE 84; TEMP 36.6; O2SAT 97
[2017-07-29 15:38] VITALS: BP 131/67; PULSE 84; TEMP 36.6; O2SAT 97
[2017-07-29 16:00] VITALS: O2SAT 97
[2017-07-29 21:18] VITALS: BP 125/68; PULSE 95
[2017-07-29] MEDS: TAMSULOSIN HCL 0.4 MG CAP PO SCH (21:22)
[2017-07-29] MEDS: INSULIN GLARGINE SOLOSTAR 100 UNITS/ML 3 ML PEN SQ SCH (21:24)
[2017-07-30 00:24] VITALS: BP 96/53; PULSE 78; TEMP 36.7; O2SAT 95
[2017-07-30 07:38] VITALS: BP 118/67; PULSE 82; TEMP 36.7; O2SAT 99
[2017-07-30] MEDS: BOOST GLUCOSE CONTROL PO SCH (08:00)
[2017-07-30] MEDS: INSULIN ASPART 100 UNITS/ML 3 ML PEN SC SCH ×4 (10:05→21:15)
[2017-07-30] MEDS: CHOLECALCIFEROL 1000 INTER.UNIT TAB PO SCH (10:06)
[2017-07-30] MEDS: METOPROLOL TARTRATE 25 MG TAB PO SCH ×2 (10:06→21:03)
[2017-07-30] MEDS: LISINOPRIL 2.5 MG TAB PO SCH (10:06)
[2017-07-30] MEDS: ATORVASTATIN 40 MG TAB PO SCH (10:06)
[2017-07-30] MEDS: CLOPIDOGREL BISULFATE 75 MG TAB PO SCH (10:06)
[2017-07-30] MEDS: MAGNESIUM OXIDE 400 MG TAB PO SCH ×2 (10:06→21:03)
[2017-07-30] MEDS: CYANOCOBALAMIN 500 MCG TAB (VIT B-12) PO SCH (10:06)
[2017-07-30] MEDS: ENOXAPARIN 40 MG/0.4 ML SYR SQ SCH (10:07)
[2017-07-30] MEDS: ASPIRIN 81 MG ECTAB PO SCH (10:07)
[2017-07-30] MEDS: CASPOFUNGIN INJ 50 MG in SODIUM CHLORIDE 0.9% 250ML 250 ML IV SCH (10:22)
--- NOTE | 2017-07-30 13:38 | Hospitalist Progress Note ---
Hospitalist Progress Note Date of Service Jul 30, 2017. Subjective Pt evaluation today including: conversation w/ patient, physical exam, chart review, lab review, review of studies Pain: None PO Intake: Good Voiding: hallman catheter in place (draining clear yellow urine) The patient was seen and examined this morning. Pt reports doing well today. He has no acute complaints. Pt reports being up in the chair earlier today. He is anticipating dc to [facility] soon. Denies difficulty with walking to bathroom, using walker for assistance. Tolerating PO intake well. ROS: 6 point ROS reviewed and negative. Objective Vital Signs Date Time Temp Pulse Resp B/P (MAP) Pulse Ox O2 Delivery O2 Flow Rate FiO2 07/30/17 08:00 Room Air 07/30/17 07:38 36.7 82 18 118/67 (84) 99 07/30/17 00:24 36.7 78 20 96/53 (67) 95 Room Air 07/30/17 00:00 Room Air 07/29/17 21:18 95 125/68 (87) 07/29/17 16:00 97 Room Air 07/29/17 15:38 36.6 84 20 97 Room Air 07/29/17 15:19 36.6 84 20 131/67 (88) 97 Room Air Physical Exam Notes: General: awake, alert, no apparent distress, lying flat in bed on waffle mattress Head: Normocephalic, atraumatic ENT: PERRL, EOMI, no pharyngeal exudate, mucous membranes moist Chest: Clear to auscultation, on room air, no adventitious breath sounds Cardiac: Regular rate and rhythm, soft systolic murmur, no JVD, normal peripheral pulses, good capillary refill Abdominal: NABS x 4 quadrants, soft, nontender to palpation, no rebound, guarding or tenderness, + Hallman catheter in place, clear yellow urine in bag Extremities: Waffle boots on BLE, Normal inspection, no peripheral edema or erythema, calfs nontender to palpation Psych: Normal mood and affect Neuro: AAO x 3, speech is clear, no peripheral sensory deficits Laboratory Results Last 24 Hours Test 07/29/17 16:11 07/29/17 20:04 07/30/17 07:27 Bedside Glucose 204 mg/dl 139 mg/dl 181 mg/dl Assessment and Plan 67 y/o male admitted 07/22/2017 with gross hematuria with clots Acute pyelonephritis, cystis due to yeast (not Angelica albicans) - Day 9 out of 14 of Caspofungin IV - pt will be able to complete course at [facility]. Finish on 08/04. - Finished 5 day course of bladder irrigation with Amphotericin B on 07/27 - Urology on the case, Clamp CBI, avoid stent for now, f/u appt with Dr. Garcia on Aug 13 at 3:15. 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 resume ASA and Plavix, Resume lisinopril, Continue Lopressor 25 mg PO BID, atorvastatin 40 mg PO qd Chronic systolic CHF -stable Uncontrolled DM II- - last HgbA1c 07/23 = 9.2, continue current care, counselling patient about the importance about blood glucose control and avoid medications from diabetic - Will adjust ISS to tighten coverage, CF or 25 and carb ratio of 1:8. As outpatient can have fixed novolog dosing with 5 U novolog with meals. BPH with bladder outlet obstruction, chronic Hallman--ongoing -Continue Flomax 0.4 mg PO hs CODE STATUS: FULL Disp: [facility], likely discharge within 24 hours. Awaiting insurance GIANFRANCO cam assisting
[2017-07-30 15:46] VITALS: BP 106/64; PULSE 79; TEMP 36.6; O2SAT 99
[2017-07-30 16:00] VITALS: O2SAT 99
[2017-07-30 21:01] VITALS: BP 121/65; PULSE 101
[2017-07-30] MEDS: TAMSULOSIN HCL 0.4 MG CAP PO SCH (21:08)
[2017-07-30] MEDS: INSULIN GLARGINE SOLOSTAR 100 UNITS/ML 3 ML PEN SQ SCH (21:15)
[2017-07-30 23:16] VITALS: BP 93/49; PULSE 90; TEMP 36.7; O2SAT 96
[2017-07-31 07:10] VITALS: BP 113/68; PULSE 70; TEMP 37.1; O2SAT 97
[2017-07-31] MEDS: CASPOFUNGIN INJ 50 MG in SODIUM CHLORIDE 0.9% 250ML 250 ML IV SCH (08:25)
[2017-07-31] MEDS: MAGNESIUM OXIDE 400 MG TAB PO SCH ×2 (08:25→20:26)
[2017-07-31] MEDS: METOPROLOL TARTRATE 25 MG TAB PO SCH ×2 (08:25→20:25)
[2017-07-31] MEDS: ATORVASTATIN 40 MG TAB PO SCH (08:25)
[2017-07-31] MEDS: ASPIRIN 81 MG ECTAB PO SCH (08:25)
[2017-07-31] MEDS: LISINOPRIL 2.5 MG TAB PO SCH (08:26)
[2017-07-31] MEDS: CYANOCOBALAMIN 500 MCG TAB (VIT B-12) PO SCH (08:26)
[2017-07-31] MEDS: CLOPIDOGREL BISULFATE 75 MG TAB PO SCH (08:26)
[2017-07-31] MEDS: CHOLECALCIFEROL 1000 INTER.UNIT TAB PO SCH (08:26)
[2017-07-31] MEDS: ENOXAPARIN 40 MG/0.4 ML SYR SQ SCH (08:27)
[2017-07-31] MEDS: INSULIN ASPART 100 UNITS/ML 3 ML PEN SC SCH ×4 (08:32→21:06)
[2017-07-31] MEDS: BOOST GLUCOSE CONTROL PO SCH (08:38)
[2017-07-31 14:49] VITALS: BP 108/55; PULSE 81; TEMP 36.5; O2SAT 96
--- NOTE | 2017-07-31 15:04 | Hospitalist Progress Note ---
Hospitalist Progress Note Date of Service Jul 31, 2017. Subjective Pt evaluation today including: conversation w/ patient, physical exam, chart review, lab review, review of studies Pain: None PO Intake: Good Voiding: hallman catheter in place The patient was seen and examined this morning. Pt reports doing well today. He just received a call from his insurance stating that he was denied for [employer]. Discussed this with him and darrius having medical team do a peer to peer review. He understands that he may not be qualified for [facility], and that nursing facility for acute rehabilitation may be his second choice. ROS: 6 Point review of systems reviewed and negative other than stated in HPI. Objective Vital Signs Date Time Temp Pulse Resp B/P (MAP) Pulse Ox O2 Delivery O2 Flow Rate FiO2 07/31/17 14:49 36.5 81 18 108/55 (72) 96 Room Air 07/31/17 08:00 Room Air 07/31/17 07:10 37.1 70 18 113/68 (83) 97 Room Air 07/31/17 00:00 Room Air 07/30/17 23:16 36.7 90 17 93/49 (64) 96 Room Air 07/30/17 21:01 101 121/65 (83) 07/30/17 16:00 99 Room Air 07/30/17 15:46 36.6 79 18 106/64 (78) 99 Room Air Physical Exam Notes: General: awake, alert, no apparent distress, lying flat in bed on waffle mattress Head: Normocephalic, atraumatic ENT: PERRL, EOMI, no pharyngeal exudate, mucous membranes moist Chest: Clear to auscultation, on room air, no adventitious breath sounds Cardiac: Regular rate and rhythm, soft systolic murmur, no JVD, normal peripheral pulses, good capillary refill Abdominal: NABS x 4 quadrants, soft, nontender to palpation, no rebound, guarding or tenderness, + Hallman catheter in place, clear yellow urine in bag Extremities: Waffle boots on BLE, Normal inspection, no peripheral edema or erythema, calfs nontender to palpation Psych: Normal mood and affect Neuro: AAO x 3, speech is clear, no peripheral sensory deficits Laboratory Results Last 24 Hours Test 07/30/17 16:20 07/30/17 20:35 07/31/17 07:24 07/31/17 11:20 Bedside Glucose 210 mg/dl 147 mg/dl 161 mg/dl 190 mg/dl Assessment and Plan 67 y/o male admitted 07/22/2017 with gross hematuria with clots Acute pyelonephritis, cystis due to yeast (not Angelica albicans) - Day 10 out of 14 of Caspofungin IV - pt will be able to complete course at [facility]. Finish on 08/04. - Finished 5 day course of bladder irrigation with Amphotericin B on 07/27 - Urology on the case, Clamp CBI, avoid stent for now, f/u appt with Dr. Garcia on Aug 13 at 3:15. 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 resume ASA and Plavix, Resume lisinopril, Continue Lopressor 25 mg PO BID, atorvastatin 40 mg PO qd Chronic systolic CHF -stable Uncontrolled DM II- - last HgbA1c 07/23 = 9.2, continue current care, counselling patient about the importance about blood glucose control and avoid medications from diabetic - Will adjust ISS to tighten coverage, CF or 25 and carb ratio of 1:8. As outpatient can have fixed novolog dosing with 5 U novolog with meals. BPH with bladder outlet obstruction, chronic Hallman--ongoing -Continue Flomax 0.4 mg PO hs CODE STATUS: FULL Disp: Auth for [facility] accepted, insurance now denying HS, will need to do a peer to peer review, or pt will need alternative placement at [facility]. CM should ask for possible alternative placement locations.
[2017-07-31 16:00] VITALS: O2SAT 99
--- NOTE | 2017-07-31 18:59 | Infectious Disease Progress Nt ---
Progress Note Date of Service Jul 31, 2017. Subjective Pt evaluation today including: conversation w/ patient, physical exam, chart review, lab review, review of studies, conversation w/ healthcare network pricing consultant, review of inpatient medication list Patient offers no new complaints today. Remains afebrile. Continues tolerating antibiotic without apparent difficulty. No flank pain. All Other Systems: Reviewed and Negative Medications Current Inpatient Medications Medications (Trade) Dose Ordered Sig/Nilda Route Start Time Stop Time Status Last Admin Dose Admin Aspirin (Ecotrin Tab) 81 mg DAILY PO 07/22/17 09:00 08/21/17 08:59 Future hold 07/31/17 08:25 81 MG Atorvastatin Calcium (Lipitor Tab) 40 mg DAILY PO 07/22/17 09:00 08/21/17 08:59 07/31/17 08:25 40 MG Cholecalciferol (Vitamin D Tab) 1,000 inter.unit DAILY PO 07/22/17 09:00 08/21/17 08:59 07/31/17 08:26 1,000 INTER.UNIT Clopidogrel Bisulfate (plAVix TAB) 75 mg DAILY PO 07/22/17 09:00 08/21/17 08:59 Future hold 07/31/17 08:26 75 MG Folic Acid (Folvite Tab) 1 mg DAILY PO 07/22/17 09:00 08/21/17 08:59 07/31/17 09:16 1 MG Insulin Glargine (Lantus Solostar Pen) 44 units QPM SQ 07/22/17 21:00 08/21/17 20:59 07/30/17 21:15 44 UNITS Lisinopril (Zestril Tab) 2.5 mg DAILY PO 07/22/17 09:00 08/21/17 08:59 Future hold 07/31/17 08:26 2.5 MG Magnesium Oxide (Mag-Ox Tab) 400 mg BID PO 07/22/17 09:00 08/21/17 08:59 07/31/17 08:25 400 MG Metoprolol Tartrate (Lopressor Tab) 25 mg BID PO 07/22/17 09:00 08/21/17 08:59 07/31/17 08:25 25 MG Tamsulosin HCl (Flomax Cap) 0.4 mg HS PO 07/22/17 21:00 08/21/17 20:59 07/30/17 21:08 0.4 MG Cyanocobalamin (Vitamin B-12 Tab) 1,000 mcg DAILY PO 07/22/17 09:00 08/21/17 08:59 07/31/17 08:26 1,000 MCG Acetaminophen (Tylenol Tab) 650 mg Q4H PRN PO 07/22/17 01:45 08/21/17 01:44 Al Hydrox/Mg Hydrox/Simethicone (Maalox Max Susp) 15 ml Q4H PRN PO 07/22/17 01:45 08/21/17 01:44 Magnesium Hydroxide (Milk Of Magnesia Susp) 30 ml Q6H PRN PO 07/22/17 01:45 08/21/17 01:44 Polyethylene (Miralax Powder Packet) 17 gm DAILY PRN PO 07/22/17 01:45 08/21/17 01:44 Zolpidem Tartrate (Ambien Tab) 5 mg HSZ PRN PO 07/22/17 01:45 08/21/17 01:44 Ondansetron HCl (Zofran Inj) 4 mg Q6H PRN IV 07/22/17 01:45 08/21/17 01:44 07/22/17 21:02 4 MG Insulin Aspart (novoLOG ASPART) SLIDING SCALE G... ACHS SC 07/22/17 07:00 08/21/17 06:59 07/31/17 18:01 10 UNITS Miscellaneous (Iv Fluids Completed) 1 ea PRN PRN N/A 07/22/17 02:45 07/22/18 02:44 Lidocaine HCl (Xylocaine Jelly 2%) 5 ml UD PRN EXT 07/22/17 08:15 08/21/17 08:14 Caspofungin 50 mg/ Sodium Chloride 260 ml @ 250 mls/hr DAILY IV 07/23/17 09:00 08/02/17 08:59 07/31/17 08:25 250 MLS/HR Heparin Sodium (Porcine) (Heparin 10 Unit/ ml 5 ml Flush) 5 ml PRN PRN FLUSH 07/25/17 12:00 08/24/17 11:59 07/31/17 10:05 5 ML Enoxaparin Sodium (Lovenox Inj) 40 mg Q24H SQ 07/26/17 08:30 08/25/17 08:29 07/31/17 08:27 40 MG Menthol (Nice Lisandro) 1 lisandro PRN PRN LISANDRO 07/28/17 09:15 08/27/17 09:14 Enteral Nutritional Formula (Boost Glucose Control) 1 can DAILY PO 07/30/17 08:00 08/29/17 07:59 07/31/17 08:38 1 CAN Objective Vital Signs Date Time Temp Pulse Resp B/P (MAP) Pulse Ox O2 Delivery O2 Flow Rate FiO2 07/31/17 14:49 36.5 81 18 108/55 (72) 96 Room Air 07/31/17 08:00 Room Air 07/31/17 07:10 37.1 70 18 113/68 (83) 97 Room Air 07/31/17 00:00 Room Air 07/30/17 23:16 36.7 90 17 93/49 (64) 96 Room Air 07/30/17 21:01 101 121/65 (83) Physical Exam General Appearance: WD/WN, no apparent distress Eyes: normal inspection, EOMI, sclerae normal ENT: normal ENT inspection, pharynx normal Neck: supple, no adenopathy, thyroid normal, trachea midline Respiratory/Chest: chest non-tender, lungs clear, normal breath sounds, no respiratory distress Cardiovascular: regular rate, rhythm, no gallop, no murmur Abdomen: normal bowel sounds, non tender, soft, no organomegaly Extremities: non-tender, no calf tenderness Neurologic/Psychiatric: alert, oriented x 3 Skin: normal color, warm/dry, no rash Lymphatic: no adenopathy Laboratory Results Last 24 Hours Test 07/30/17 20:35 07/31/17 07:24 07/31/17 11:20 Bedside Glucose 147 mg/dl 161 mg/dl 190 mg/dl Assessment and Plan 67-year-old poorly controlled diabetic male with indwelling Miller catheter, with evidence of persistent non Angelica albicans yeast infection. Likely has involvement of kidneys as well with developing emphysematous pyelonephritis. As discussed, patient is to be treated with 14 day course of IV caspofungin. Will follow.
[2017-07-31 20:23] VITALS: BP 123/61; PULSE 88
[2017-07-31] MEDS: TAMSULOSIN HCL 0.4 MG CAP PO SCH (20:26)
[2017-07-31] MEDS: INSULIN GLARGINE SOLOSTAR 100 UNITS/ML 3 ML PEN SQ SCH (21:07)
[2017-07-31 23:03] VITALS: BP 91/46; PULSE 73; TEMP 36.7; O2SAT 95
[2017-08-01 06:27] LABS: HEMOGLOBIN 8.8 g/dL (14.0-18.0); MEAN CELL VOLUME 95.1 fL (80-100); MEAN CORPUSCULAR HGB CONC 32.6 g/dl (32-36); MEAN PLATELET VOLUME 9.5 fL (7.4-10.4); PLATELET COUNT 468 K/uL (130-400); RED CELL DISTRIBUTION WIDTH CV 14.6 % (11.5-14.5); RED CELL DISTRIBUTION WIDTH SD 50.5 fL (36.4-46.3); WHITE BLOOD COUNT 12.09 K/uL (4.8-10.8)
[2017-08-01 06:55] VITALS: BP 115/67; PULSE 83; TEMP 36.6; O2SAT 97
[2017-08-01 07:00] LABS: CALCIUM 9.1 mg/dl (8.5-10.1); CREATININE 1.25 mg/dl (0.60-1.40); POTASSIUM 4.2 mmol/L (3.5-5.1)
[2017-08-01] MEDS: CASPOFUNGIN INJ 50 MG in SODIUM CHLORIDE 0.9% 250ML 250 ML IV SCH (07:59)
[2017-08-01 08:00] VITALS: O2SAT 97
[2017-08-01] MEDS: ASPIRIN 81 MG ECTAB PO SCH (08:06)
[2017-08-01] MEDS: ATORVASTATIN 40 MG TAB PO SCH (08:07)
[2017-08-01] MEDS: METOPROLOL TARTRATE 25 MG TAB PO SCH ×2 (08:07→20:39)
[2017-08-01] MEDS: MAGNESIUM OXIDE 400 MG TAB PO SCH ×2 (08:08→20:38)
[2017-08-01] MEDS: CLOPIDOGREL BISULFATE 75 MG TAB PO SCH (08:08)
[2017-08-01] MEDS: CYANOCOBALAMIN 500 MCG TAB (VIT B-12) PO SCH (08:08)
[2017-08-01] MEDS: CHOLECALCIFEROL 1000 INTER.UNIT TAB PO SCH (08:09)
[2017-08-01] MEDS: LISINOPRIL 2.5 MG TAB PO SCH (08:09)
[2017-08-01] MEDS: BOOST GLUCOSE CONTROL PO SCH (08:16)
[2017-08-01] MEDS: ENOXAPARIN 40 MG/0.4 ML SYR SQ SCH (08:59)
[2017-08-01] MEDS: INSULIN ASPART 100 UNITS/ML 3 ML PEN SC SCH ×4 (09:03→21:16)
[2017-08-01] MEDS ORDERED: INFLUENZA ADMINISTRATION CHARGE ONE (13:30)
[2017-08-01] MEDS ORDERED: INFLUENZA VIRUS QUAD VACCINE 0.5 ML SYR IM. ONE (13:30)
[2017-08-01 15:05] VITALS: BP 109/56; PULSE 82; TEMP 36.8; O2SAT 96
--- NOTE | 2017-08-01 16:03 | Progress Note ---
Subjective Date of Service: Aug 01, 2017. Subjective Pt evaluation today including: conversation w/ patient, physical exam, review of inpatient medication list Pain: no pain PO Intake: adequate Voiding: hallman catheter in place patient laying in bed, not much activity no pain, eating well he wanted to know about peer to peer, thought that it would be approved as long as I called explained that the insurance was not open on the weekend explained that just calling did not ensure a reversal plus, I explained that I felt in his case it would not be reversed, he could be treated at a SNF he would like to go home if he does not go to [facility] Problem List Medical Problems: (1) ARF (acute renal failure) Status: Acute (2) Complication of catheter Status: Acute (3) Complication of catheter Status: Acute (4) Complication of catheter Status: Acute (5) Dehydration Status: Acute (6) DKA (diabetic ketoacidoses) Status: Acute (7) Hallman catheter problem Status: Acute (8) Generalized weakness Status: Acute (9) Hematuria Status: Acute (10) Hydronephrosis due to obstruction of bladder Status: Acute (11) Hyperglycemia Status: Acute (12) Malfunction of Hallman catheter Status: Acute (13) Malfunction of Hallman catheter Status: Acute (14) Malfunction of Hallman catheter Status: Acute (15) Urinary retention Status: Acute (16) Urinary tract infection Status: Acute Review of Systems Constitutional: + weakness, + fatigue All Other Systems: Reviewed and Negative Medications Current Inpatient Medications Medications (Trade) Dose Ordered Sig/Nilda Route Start Time Stop Time Status Last Admin Dose Admin Aspirin (Ecotrin Tab) 81 mg DAILY PO 07/22/17 09:00 08/21/17 08:59 Future hold 08/01/17 08:06 81 MG Atorvastatin Calcium (Lipitor Tab) 40 mg DAILY PO 07/22/17 09:00 08/21/17 08:59 08/01/17 08:07 40 MG Cholecalciferol (Vitamin D Tab) 1,000 inter.unit DAILY PO 07/22/17 09:00 08/21/17 08:59 08/01/17 08:09 1,000 INTER.UNIT Clopidogrel Bisulfate (plAVix TAB) 75 mg DAILY PO 07/22/17 09:00 08/21/17 08:59 Future hold 08/01/17 08:08 75 MG Folic Acid (Folvite Tab) 1 mg DAILY PO 07/22/17 09:00 08/21/17 08:59 08/01/17 08:06 1 MG Insulin Glargine (Lantus Solostar Pen) 44 units QPM SQ 07/22/17 21:00 08/21/17 20:59 07/31/17 21:07 44 UNITS Lisinopril (Zestril Tab) 2.5 mg DAILY PO 07/22/17 09:00 08/21/17 08:59 Future hold 08/01/17 08:09 2.5 MG Magnesium Oxide (Mag-Ox Tab) 400 mg BID PO 07/22/17 09:00 08/21/17 08:59 08/01/17 08:08 400 MG Metoprolol Tartrate (Lopressor Tab) 25 mg BID PO 07/22/17 09:00 08/21/17 08:59 08/01/17 08:07 25 MG Tamsulosin HCl (Flomax Cap) 0.4 mg HS PO 07/22/17 21:00 08/21/17 20:59 07/31/17 20:26 0.4 MG Cyanocobalamin (Vitamin B-12 Tab) 1,000 mcg DAILY PO 07/22/17 09:00 08/21/17 08:59 08/01/17 08:08 1,000 MCG Acetaminophen (Tylenol Tab) 650 mg Q4H PRN PO 07/22/17 01:45 08/21/17 01:44 Al Hydrox/Mg Hydrox/Simethicone (Maalox Max Susp) 15 ml Q4H PRN PO 07/22/17 01:45 08/21/17 01:44 Magnesium Hydroxide (Milk Of Magnesia Susp) 30 ml Q6H PRN PO 07/22/17 01:45 08/21/17 01:44 Polyethylene (Miralax Powder Packet) 17 gm DAILY PRN PO 07/22/17 01:45 08/21/17 01:44 Zolpidem Tartrate (Ambien Tab) 5 mg HSZ PRN PO 07/22/17 01:45 08/21/17 01:44 Ondansetron HCl (Zofran Inj) 4 mg Q6H PRN IV 07/22/17 01:45 08/21/17 01:44 07/22/17 21:02 4 MG Insulin Aspart (novoLOG ASPART) SLIDING SCALE G... ACHS SC 07/22/17 07:00 08/21/17 06:59 08/01/17 13:36 13 UNITS Miscellaneous (Iv Fluids Completed) 1 ea PRN PRN N/A 07/22/17 02:45 07/22/18 02:44 Lidocaine HCl (Xylocaine Jelly 2%) 5 ml UD PRN EXT 07/22/17 08:15 08/21/17 08:14 Caspofungin 50 mg/ Sodium Chloride 260 ml @ 250 mls/hr DAILY IV 07/23/17 09:00 08/02/17 08:59 08/01/17 07:59 250 MLS/HR Heparin Sodium (Porcine) (Heparin 10 Unit/ ml 5 ml Flush) 5 ml PRN PRN FLUSH 07/25/17 12:00 08/24/17 11:59 08/01/17 09:18 5 ML Enoxaparin Sodium (Lovenox Inj) 40 mg Q24H SQ 07/26/17 08:30 08/25/17 08:29 08/01/17 08:59 40 MG Menthol (Nice Lisandro) 1 lisandro PRN PRN LISANDRO 07/28/17 09:15 08/27/17 09:14 Enteral Nutritional Formula (Boost Glucose Control) 1 can DAILY PO 07/30/17 08:00 08/29/17 07:59 08/01/17 08:16 1 CAN Objective Vital Signs Date Time Temp Pulse Resp B/P (MAP) Pulse Ox O2 Delivery O2 Flow Rate FiO2 08/01/17 15:05 36.8 82 18 109/56 (73) 96 Room Air 08/01/17 08:00 97 Room Air 08/01/17 06:55 36.6 83 18 115/67 (83) 97 Room Air 08/01/17 00:00 Room Air 07/31/17 23:03 36.7 73 18 91/46 (61) 95 Room Air 07/31/17 20:23 88 123/61 (81) 07/31/17 16:00 99 Room Air Physical Exam General Appearance: no apparent distress, + thin Eyes: normal inspection, EOMI, sclerae normal ENT: normal ENT inspection, hearing grossly normal, pharynx normal Neck: supple, no adenopathy, no JVD, trachea midline Respiratory/Chest: chest non-tender, lungs clear, normal breath sounds, no respiratory distress, no accessory muscle use Cardiovascular: regular rate, rhythm, no edema, no gallop, no JVD, no murmur Abdomen: normal bowel sounds, non tender, soft, no organomegaly Extremities: non-tender, normal inspection, no pedal edema, no calf tenderness , normal capillary refill, pelvis stable Neurologic/Psychiatric: 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, alert, oriented x 3, + motor weakness, + depressed affect Skin: normal color, warm/dry, no rash Laboratory Results Last 24 Hours Test 07/31/17 16:16 07/31/17 20:27 08/01/17 06:06 08/01/17 07:59 Bedside Glucose 164 mg/dl 144 mg/dl 130 mg/dl White Blood Count 12.09 K/uL Red Blood Count 2.84 M/uL Hemoglobin 8.8 g/dL Hematocrit 27.0 % Mean Corpuscular Volume 95.1 fL Mean Corpuscular Hemoglobin 31.0 pg Mean Corpuscular Hemoglobin Concent 32.6 g/dl RDW Standard Deviation 50.5 fL RDW Coefficient of Variation 14.6 % Platelet Count 468 K/uL Mean Platelet Volume 9.5 fL Sodium Level 140 mmol/L Potassium Level 4.2 mmol/L Chloride Level 105 mmol/L Carbon Dioxide Level 29 mmol/L Anion Gap 6.0 mmol/L Blood Urea Nitrogen 42 mg/dl Creatinine 1.25 mg/dl Est Creatinine Clear Calc Drug Dose 56.5 ml/min Estimated GFR () 67.7 Estimated GFR (Non- 58.4 BUN/Creatinine Ratio 33.3 Random Glucose 135 mg/dl Calcium Level 9.1 mg/dl Test 08/01/17 11:37 Bedside Glucose 209 mg/dl Assessment and Plan 67 y/o male admitted 07/22/2017 with gross hematuria with clots Acute pyelonephritis, cystis due to yeast (not Angelica albicans) - Day 11 out of 14 of Caspofungin IV - Finish on 08/04. - Finished 5 day course of bladder irrigation with Amphotericin B on 07/27 - Urology on the case, Clamp CBI, avoid stent for now, f/u appt with Dr. Garcia on Aug 13 at 3:15. 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 resume ASA and Plavix, Resume lisinopril, Continue Lopressor 25 mg PO BID, atorvastatin 40 mg PO qd Chronic systolic CHF -stable Uncontrolled DM II- - last HgbA1c 07/23 = 9.2, continue current care, counselling patient about the importance about blood glucose control and avoid medications from diabetic - Will adjust ISS to tighten coverage, CF or 25 and carb ratio of 1:8. As outpatient can have fixed novolog dosing with 5 U novolog with meals. BPH with bladder outlet obstruction, chronic Hallman--ongoing -Continue Flomax 0.4 mg PO hs CODE STATUS: FULL Disp: denied [facility] for rehab, peer to peer cannot be done on the weekend, would have to request on Thursday discussed that not likely to get reversed he would not want a SNF, would want to go home with home services right now he needs 3 more days of Caspofungin Continued [facility] stay due to: multiple IV medications needed Discharge planning: custodial facility
[2017-08-01] MEDS: TAMSULOSIN HCL 0.4 MG CAP PO SCH (20:39)
[2017-08-01] MEDS: INSULIN GLARGINE SOLOSTAR 100 UNITS/ML 3 ML PEN SQ SCH (21:16)
[2017-08-01 22:57] VITALS: BP 108/61; PULSE 84; TEMP 36.7; O2SAT 96
[2017-08-02 07:04] VITALS: BP 123/69; PULSE 84; TEMP 36.7; O2SAT 96
[2017-08-02 08:00] VITALS: O2SAT 96
[2017-08-02] MEDS: CASPOFUNGIN INJ 50 MG in SODIUM CHLORIDE 0.9% 250ML 250 ML IV SCH (09:11)
[2017-08-02] MEDS: INSULIN ASPART 100 UNITS/ML 3 ML PEN SC SCH ×4 (09:19→20:51)
[2017-08-02] MEDS: ASPIRIN 81 MG ECTAB PO SCH (09:22)
[2017-08-02] MEDS: MAGNESIUM OXIDE 400 MG TAB PO SCH ×2 (09:23→20:43)
[2017-08-02] MEDS: METOPROLOL TARTRATE 25 MG TAB PO SCH ×2 (09:23→20:44)
[2017-08-02] MEDS: ATORVASTATIN 40 MG TAB PO SCH (09:23)
[2017-08-02] MEDS: CLOPIDOGREL BISULFATE 75 MG TAB PO SCH (09:24)
[2017-08-02] MEDS: CYANOCOBALAMIN 500 MCG TAB (VIT B-12) PO SCH (09:24)
[2017-08-02] MEDS: CHOLECALCIFEROL 1000 INTER.UNIT TAB PO SCH (09:25)
[2017-08-02] MEDS: LISINOPRIL 2.5 MG TAB PO SCH (09:25)
[2017-08-02] MEDS: ENOXAPARIN 40 MG/0.4 ML SYR SQ SCH (09:26)
[2017-08-02] MEDS: BOOST GLUCOSE CONTROL PO SCH (10:01)
[2017-08-02 14:36] VITALS: BP 111/56; PULSE 84; TEMP 36.7; O2SAT 95
--- NOTE | 2017-08-02 15:10 | Progress Note ---
Subjective Date of Service: Aug 02, 2017. Subjective Pt evaluation today including: conversation w/ patient, physical exam, review of inpatient medication list Pain: no pain PO Intake: excellent Voiding: hallman catheter in place patient feels well, no new issues eating double portions for lunch discussed that Caspofungin will be done soon if he cannot go to [facility] then he does not want to go to SNF, would want to go home Problem List Medical Problems: (1) ARF (acute renal failure) Status: Acute (2) Complication of catheter Status: Acute (3) Complication of catheter Status: Acute (4) Complication of catheter Status: Acute (5) Dehydration Status: Acute (6) DKA (diabetic ketoacidoses) Status: Acute (7) Hallman catheter problem Status: Acute (8) Generalized weakness Status: Acute (9) Hematuria Status: Acute (10) Hydronephrosis due to obstruction of bladder Status: Acute (11) Hyperglycemia Status: Acute (12) Malfunction of Hallman catheter Status: Acute (13) Malfunction of Hallman catheter Status: Acute (14) Malfunction of Hallman catheter Status: Acute (15) Urinary retention Status: Acute (16) Urinary tract infection Status: Acute Review of Systems Constitutional: + weakness, + fatigue Neurologic: + weakness All Other Systems: Reviewed and Negative Medications Current Inpatient Medications Medications (Trade) Dose Ordered Sig/Nilda Route Start Time Stop Time Status Last Admin Dose Admin Aspirin (Ecotrin Tab) 81 mg DAILY PO 07/22/17 09:00 08/21/17 08:59 Future hold 08/02/17 09:22 81 MG Atorvastatin Calcium (Lipitor Tab) 40 mg DAILY PO 07/22/17 09:00 08/21/17 08:59 08/02/17 09:23 40 MG Cholecalciferol (Vitamin D Tab) 1,000 inter.unit DAILY PO 07/22/17 09:00 08/21/17 08:59 08/02/17 09:25 1,000 INTER.UNIT Clopidogrel Bisulfate (plAVix TAB) 75 mg DAILY PO 07/22/17 09:00 08/21/17 08:59 Future hold 08/02/17 09:24 75 MG Folic Acid (Folvite Tab) 1 mg DAILY PO 07/22/17 09:00 08/21/17 08:59 08/02/17 09:22 1 MG Insulin Glargine (Lantus Solostar Pen) 44 units QPM SQ 07/22/17 21:00 08/21/17 20:59 08/01/17 21:16 44 UNITS Lisinopril (Zestril Tab) 2.5 mg DAILY PO 07/22/17 09:00 08/21/17 08:59 Future hold 08/02/17 09:25 2.5 MG Magnesium Oxide (Mag-Ox Tab) 400 mg BID PO 07/22/17 09:00 08/21/17 08:59 08/02/17 09:23 400 MG Metoprolol Tartrate (Lopressor Tab) 25 mg BID PO 07/22/17 09:00 08/21/17 08:59 08/02/17 09:23 25 MG Tamsulosin HCl (Flomax Cap) 0.4 mg HS PO 07/22/17 21:00 08/21/17 20:59 08/01/17 20:39 0.4 MG Cyanocobalamin (Vitamin B-12 Tab) 1,000 mcg DAILY PO 07/22/17 09:00 08/21/17 08:59 08/02/17 09:24 1,000 MCG Acetaminophen (Tylenol Tab) 650 mg Q4H PRN PO 07/22/17 01:45 08/21/17 01:44 Al Hydrox/Mg Hydrox/Simethicone (Maalox Max Susp) 15 ml Q4H PRN PO 07/22/17 01:45 08/21/17 01:44 Magnesium Hydroxide (Milk Of Magnesia Susp) 30 ml Q6H PRN PO 07/22/17 01:45 08/21/17 01:44 Polyethylene (Miralax Powder Packet) 17 gm DAILY PRN PO 07/22/17 01:45 08/21/17 01:44 Zolpidem Tartrate (Ambien Tab) 5 mg HSZ PRN PO 07/22/17 01:45 08/21/17 01:44 Ondansetron HCl (Zofran Inj) 4 mg Q6H PRN IV 07/22/17 01:45 08/21/17 01:44 07/22/17 21:02 4 MG Insulin Aspart (novoLOG ASPART) SLIDING SCALE G... ACHS SC 07/22/17 07:00 08/21/17 06:59 08/02/17 13:02 10 UNITS Miscellaneous (Iv Fluids Completed) 1 ea PRN PRN N/A 07/22/17 02:45 07/22/18 02:44 Lidocaine HCl (Xylocaine Jelly 2%) 5 ml UD PRN EXT 07/22/17 08:15 08/21/17 08:14 Heparin Sodium (Porcine) (Heparin 10 Unit/ ml 5 ml Flush) 5 ml PRN PRN FLUSH 07/25/17 12:00 08/24/17 11:59 08/02/17 10:19 5 ML Enoxaparin Sodium (Lovenox Inj) 40 mg Q24H SQ 07/26/17 08:30 08/25/17 08:29 08/02/17 09:26 40 MG Menthol (Nice Lisandro) 1 lisandro PRN PRN LISANDRO 07/28/17 09:15 08/27/17 09:14 Enteral Nutritional Formula (Boost Glucose Control) 1 can DAILY PO 07/30/17 08:00 08/29/17 07:59 08/02/17 10:01 1 CAN Objective Vital Signs Date Time Temp Pulse Resp B/P (MAP) Pulse Ox O2 Delivery O2 Flow Rate FiO2 08/02/17 14:36 36.7 84 18 111/56 (74) 95 Room Air 08/02/17 08:00 96 Room Air 08/02/17 07:04 36.7 84 18 123/69 (87) 96 Room Air 08/02/17 00:00 Room Air 08/01/17 22:57 36.7 84 18 108/61 (77) 96 Room Air 08/01/17 22:13 Room Air 08/01/17 17:13 Room Air Physical Exam General Appearance: no apparent distress, + thin Eyes: normal inspection, EOMI, sclerae normal ENT: normal ENT inspection, hearing grossly normal, pharynx normal Neck: supple, no adenopathy, no JVD, trachea midline Respiratory/Chest: chest non-tender, lungs clear, normal breath sounds, no respiratory distress, no accessory muscle use Cardiovascular: regular rate, rhythm, no edema, no gallop, no JVD, no murmur Abdomen: normal bowel sounds, non tender, soft, no organomegaly Extremities: normal range of motion, non-tender, normal inspection, no pedal edema, no calf tenderness, pelvis stable Neurologic/Psychiatric: 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 - Finished 5 day course of bladder irrigation with Amphotericin B on 07/27 - Urology on the case, Clamp CBI, avoid stent for now, f/u appt with Dr. Garcia on Aug 13 at 3:15. 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 resume ASA and Plavix, Resume lisinopril, Continue Lopressor 25 mg PO BID, atorvastatin 40 mg PO qd Chronic systolic CHF -stable Uncontrolled DM II- - last HgbA1c 07/23 = 9.2, continue current care, counselling patient about the importance about blood glucose control and avoid medications from diabetic - Will adjust ISS to tighten coverage, CF or 25 and carb ratio of 1:8. As outpatient can have fixed novolog dosing with 5 U novolog with meals. BPH with bladder outlet obstruction, chronic Hallman--ongoing -Continue Flomax 0.4 mg PO hs CODE STATUS: FULL Disp: denied [facility] for rehab, peer to peer cannot be done on the weekend, would have to request on Thursday discussed that not likely to get reversed he would not want a SNF, would want to go home with home services right now he needs 2 more days of Caspofungin Continued [facility] stay due to: multiple IV medications needed Discharge planning: correction facility
[2017-08-02 16:00] VITALS: O2SAT 95
[2017-08-02 20:30] VITALS: BP 136/73; PULSE 61; O2SAT 96
[2017-08-02] MEDS: TAMSULOSIN HCL 0.4 MG CAP PO SCH (20:43)
[2017-08-02] MEDS: INSULIN GLARGINE SOLOSTAR 100 UNITS/ML 3 ML PEN SQ SCH (20:50)
[2017-08-02 22:57] VITALS: BP 94/50; PULSE 77; TEMP 36.7; O2SAT 96
[2017-08-03 05:56] LABS: BASO % 0.3 %; BASO ABS # 0.04 K/uL (0-0.2); EOS % 9.4 %; EOS ABS # 1.12 K/uL (0-0.5); HEMATOCRIT 26.7 % (42-52); HEMOGLOBIN 8.6 g/dL (14.0-18.0); IG# 0.11 K/uL (0.00-0.02); LYMPH % 19.1 %; LYMPH ABS # 2.28 K/uL (1.2-3.4); MEAN CELL VOLUME 95.7 fL (80-100); MEAN CORPUSCULAR HEMOGLOBIN 30.8 pg (25-34); MEAN CORPUSCULAR HGB CONC 32.2 g/dl (32-36); MEAN PLATELET VOLUME 9.5 fL (7.4-10.4); MONO % 6.9 %; MONO ABS # 0.82 K/uL (0.11-0.59); NEUT % 63.4 %; NEUT ABS # 7.58 K/uL (1.4-6.5); PLATELET COUNT 461 K/uL (130-400); RED CELL DISTRIBUTION WIDTH CV 14.6 % (11.5-14.5); RED CELL DISTRIBUTION WIDTH SD 50.9 fL (36.4-46.3); WHITE BLOOD COUNT 11.95 K/uL (4.8-10.8)
[2017-08-03 06:32] LABS: CALCIUM 8.9 mg/dl (8.5-10.1); CREATININE 1.58 mg/dl (0.60-1.40); POTASSIUM 4.2 mmol/L (3.5-5.1)
[2017-08-03 07:49] VITALS: BP 106/65; PULSE 93; TEMP 36.8; O2SAT 96
[2017-08-03] MEDS: ASPIRIN 81 MG ECTAB PO SCH (07:51)
[2017-08-03] MEDS: CLOPIDOGREL BISULFATE 75 MG TAB PO SCH (07:51)
[2017-08-03] MEDS: ATORVASTATIN 40 MG TAB PO SCH (07:51)
[2017-08-03] MEDS: MAGNESIUM OXIDE 400 MG TAB PO SCH ×2 (07:51→21:04)
[2017-08-03] MEDS: CHOLECALCIFEROL 1000 INTER.UNIT TAB PO SCH (07:51)
[2017-08-03] MEDS: LISINOPRIL 2.5 MG TAB PO SCH (07:51)
[2017-08-03] MEDS: CYANOCOBALAMIN 500 MCG TAB (VIT B-12) PO SCH (07:51)
[2017-08-03] MEDS: METOPROLOL TARTRATE 25 MG TAB PO SCH ×2 (07:51→21:04)
[2017-08-03] MEDS: ENOXAPARIN 40 MG/0.4 ML SYR SQ SCH (07:52)
[2017-08-03 08:15] VITALS: O2SAT 96
[2017-08-03] MEDS: BOOST GLUCOSE CONTROL PO SCH (08:23)
[2017-08-03] MEDS: INSULIN ASPART 100 UNITS/ML 3 ML PEN SC SCH ×4 (08:26→21:11)
--- NOTE | 2017-08-03 09:24 | Hospitalist Progress Note ---
Hospitalist Progress Note Date of Service Aug 03, 2017. Subjective Pt evaluation today including: conversation w/ patient, physical exam, chart review, lab review, review of studies Pain: None PO Intake: Good Voiding: hallman catheter in place The patient was seen and examined this morning. Pt reports having some penile pain overnight, which was relieved by hallman irrigation. He denies any cramping or lower abdominal pain. Pt notes this pain is what caused him to come to the ER in the past. He denies any fever, chills or sweats. Pt is awaiting [facility] peer to peer to be completed as they have previously denied him. Pt is agreeable to snf placement for rehab at this time, and likely will because he only has today and tomorrow of caspofungin then will finish the course. CM working to place the pt. Hallman draining well with clear yellow urine. ROS: 6 point ROS reviewed and otherwise negative. Objective Vital Signs Date Time Temp Pulse Resp B/P (MAP) Pulse Ox O2 Delivery O2 Flow Rate FiO2 08/03/17 07:49 36.8 93 18 106/65 (79) 96 Room Air 08/02/17 23:00 Room Air 08/02/17 22:57 36.7 77 18 94/50 (65) 96 Room Air 08/02/17 20:30 61 136/73 (94) 96 Room Air 08/02/17 16:00 95 Room Air 08/02/17 14:36 36.7 84 18 111/56 (74) 95 Room Air Physical Exam Notes: General: awake, alert, no apparent distress, lying flat in bed on waffle mattress, thin Head: Normocephalic, atraumatic ENT: PERRL, EOMI, no pharyngeal exudate, mucous membranes moist Chest: Clear to auscultation, on room air, no adventitious breath sounds Cardiac: Regular rate and rhythm, soft systolic murmur, no JVD, normal peripheral pulses, good capillary refill Abdominal: NABS x 4 quadrants, soft, nontender to palpation, no rebound, guarding or tenderness, + Hallman catheter in place, clear yellow urine in bag Extremities: Waffle boots on BLE, Normal inspection, no peripheral edema or erythema, calfs nontender to palpation Psych: Normal mood and affect Neuro: AAO x 3, speech is clear, no peripheral sensory deficits Laboratory Results Last 24 Hours Test 08/02/17 11:52 08/02/17 16:31 08/02/17 20:04 08/03/17 05:33 Bedside Glucose 181 mg/dl 237 mg/dl 109 mg/dl White Blood Count 11.95 K/uL Red Blood Count 2.79 M/uL Hemoglobin 8.6 g/dL Hematocrit 26.7 % Mean Corpuscular Volume 95.7 fL Mean Corpuscular Hemoglobin 30.8 pg Mean Corpuscular Hemoglobin Concent 32.2 g/dl Platelet Count 461 K/uL Mean Platelet Volume 9.5 fL Neutrophils (%) (Auto) 63.4 % Lymphocytes (%) (Auto) 19.1 % Monocytes (%) (Auto) 6.9 % Eosinophils (%) (Auto) 9.4 % Basophils (%) (Auto) 0.3 % Neutrophils # (Auto) 7.58 K/uL Lymphocytes # (Auto) 2.28 K/uL Monocytes # (Auto) 0.82 K/uL Eosinophils # (Auto) 1.12 K/uL Basophils # (Auto) 0.04 K/uL RDW Standard Deviation 50.9 fL RDW Coefficient of Variation 14.6 % Immature Granulocyte % (Auto) 0.9 % Immature Granulocyte # (Auto) 0.11 K/uL Red Blood Cell Morphology Unremarkable Sodium Level 139 mmol/L Potassium Level 4.2 mmol/L Chloride Level 103 mmol/L Carbon Dioxide Level 31 mmol/L Anion Gap 5.0 mmol/L Blood Urea Nitrogen 50 mg/dl Creatinine 1.58 mg/dl Est Creatinine Clear Calc Drug Dose 44.7 ml/min Estimated GFR () 51.0 Estimated GFR (Non- 44.0 BUN/Creatinine Ratio 31.6 Random Glucose 96 mg/dl Calcium Level 8.9 mg/dl Magnesium Level 2.1 mg/dl Assessment and Plan 67 y/o male admitted 07/22/2017 with gross hematuria with clots Acute pyelonephritis, cystis due to yeast (not Angelica albicans) - Day 13 out of 14 of Caspofungin IV - Finish on 08/04. - Finished 5 day course of bladder irrigation with Amphotericin B on 07/27 - Urology on the case, Clamp CBI, avoid stent for now, f/u appt with Dr. Garcia on Aug 13 at 3:15. - Cr slightly elevated today at 1.58, has been baseline around 1.1-1.2 in past week, will encourage PO fluids and may need to give some IVF if not improving. Follow PRP tomorrow. 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 resume ASA and Plavix, Resume lisinopril, Continue Lopressor 25 mg PO BID, atorvastatin 40 mg PO qd Chronic systolic CHF -stable Uncontrolled DM II- - last HgbA1c 07/23 = 9.2, continue current care, counselling patient about the importance about blood glucose control and avoid medications from diabetic - Will adjust ISS to tighten coverage, CF or 25 and carb ratio of 1:8. As outpatient can have fixed novolog dosing with 5 U novolog with meals. BPH with bladder outlet obstruction, chronic Hallman--ongoing -Continue Flomax 0.4 mg PO hs CODE STATUS: FULL Disp: denied [facility] for rehab, peer to peer by Dr. Valdez today, CM to make referrals to [facility] and [facility], finish caspofungin tomorrow. D/C ready after infusion tomorrow.
[2017-08-03] MEDS: CASPOFUNGIN INJ 50 MG in SODIUM CHLORIDE 0.9% 250ML 250 ML IV SCH (09:53)
[2017-08-03 14:52] VITALS: BP 112/67; PULSE 86; TEMP 36.8; O2SAT 96
[2017-08-03 16:00] VITALS: O2SAT 96
[2017-08-03] MEDS ORDERED: NURSING DECISION MEDICATION ORDER SCH (19:15)
[2017-08-03] MEDS ORDERED: MICONAZOLE NITRATE POWDER 43 GM EXT PRN (19:30)
--- NOTE | 2017-08-03 20:46 | Infectious Disease Progress Nt ---
Progress Note Date of Service Aug 03, 2017. Subjective Pt evaluation today including: conversation w/ patient, physical exam, chart review, lab review, review of studies, conversation w/ data processing consultant, review of inpatient medication list Patient had some abdominal pain, relieved with Miller irrigation. Otherwise offers no new complaints. Remains afebrile. Continues to tolerate caspofungin. All Other Systems: Reviewed and Negative Medications Current Inpatient Medications Medications (Trade) Dose Ordered Sig/Nilda Route Start Time Stop Time Status Last Admin Dose Admin Aspirin (Ecotrin Tab) 81 mg DAILY PO 07/22/17 09:00 08/21/17 08:59 Future hold 08/03/17 07:51 81 MG Atorvastatin Calcium (Lipitor Tab) 40 mg DAILY PO 07/22/17 09:00 08/21/17 08:59 08/03/17 07:51 40 MG Cholecalciferol (Vitamin D Tab) 1,000 inter.unit DAILY PO 07/22/17 09:00 08/21/17 08:59 08/03/17 07:51 1,000 INTER.UNIT Clopidogrel Bisulfate (plAVix TAB) 75 mg DAILY PO 07/22/17 09:00 08/21/17 08:59 Future hold 08/03/17 07:51 75 MG Folic Acid (Folvite Tab) 1 mg DAILY PO 07/22/17 09:00 08/21/17 08:59 08/03/17 07:51 1 MG Insulin Glargine (Lantus Solostar Pen) 44 units QPM SQ 07/22/17 21:00 08/21/17 20:59 08/02/17 20:50 44 UNITS Lisinopril (Zestril Tab) 2.5 mg DAILY PO 07/22/17 09:00 08/21/17 08:59 Future hold 08/03/17 07:51 2.5 MG Magnesium Oxide (Mag-Ox Tab) 400 mg BID PO 07/22/17 09:00 08/21/17 08:59 08/03/17 07:51 400 MG Metoprolol Tartrate (Lopressor Tab) 25 mg BID PO 07/22/17 09:00 08/21/17 08:59 08/03/17 07:51 25 MG Tamsulosin HCl (Flomax Cap) 0.4 mg HS PO 07/22/17 21:00 08/21/17 20:59 08/02/17 20:43 0.4 MG Cyanocobalamin (Vitamin B-12 Tab) 1,000 mcg DAILY PO 07/22/17 09:00 08/21/17 08:59 08/03/17 07:51 1,000 MCG Acetaminophen (Tylenol Tab) 650 mg Q4H PRN PO 07/22/17 01:45 08/21/17 01:44 Al Hydrox/Mg Hydrox/Simethicone (Maalox Max Susp) 15 ml Q4H PRN PO 07/22/17 01:45 08/21/17 01:44 Magnesium Hydroxide (Milk Of Magnesia Susp) 30 ml Q6H PRN PO 07/22/17 01:45 08/21/17 01:44 Polyethylene (Miralax Powder Packet) 17 gm DAILY PRN PO 07/22/17 01:45 08/21/17 01:44 Zolpidem Tartrate (Ambien Tab) 5 mg HSZ PRN PO 07/22/17 01:45 08/21/17 01:44 Ondansetron HCl (Zofran Inj) 4 mg Q6H PRN IV 07/22/17 01:45 08/21/17 01:44 07/22/17 21:02 4 MG Insulin Aspart (novoLOG ASPART) SLIDING SCALE G... ACHS SC 07/22/17 07:00 08/21/17 06:59 08/03/17 18:37 8 UNITS Miscellaneous (Iv Fluids Completed) 1 ea PRN PRN N/A 07/22/17 02:45 07/22/18 02:44 Lidocaine HCl (Xylocaine Jelly 2%) 5 ml UD PRN EXT 07/22/17 08:15 08/21/17 08:14 Caspofungin 50 mg/ Sodium Chloride 260 ml @ 250 mls/hr DAILY IV 07/23/17 09:00 08/03/17 23:59 08/03/17 09:53 250 MLS/HR Heparin Sodium (Porcine) (Heparin 10 Unit/ ml 5 ml Flush) 5 ml PRN PRN FLUSH 07/25/17 12:00 08/24/17 11:59 08/03/17 16:13 5 ML Enoxaparin Sodium (Lovenox Inj) 40 mg Q24H SQ 07/26/17 08:30 08/25/17 08:29 08/03/17 07:52 40 MG Menthol (Nice Lisandro) 1 lisandro PRN PRN LISANDRO 07/28/17 09:15 08/27/17 09:14 Enteral Nutritional Formula (Boost Glucose Control) 1 can DAILY PO 07/30/17 08:00 08/29/17 07:59 08/03/17 08:23 1 CAN Miconazole Nitrate (Desenex Powder) 1 appln DAILY PRN EXT 08/03/17 19:30 09/02/17 19:29 Objective Vital Signs Date Time Temp Pulse Resp B/P (MAP) Pulse Ox O2 Delivery O2 Flow Rate FiO2 08/03/17 16:00 96 Room Air 95.0 08/03/17 14:52 36.8 86 20 112/67 (82) 96 08/03/17 08:15 96 Room Air 08/03/17 07:49 36.8 93 18 106/65 (79) 96 Room Air 08/02/17 23:00 Room Air 08/02/17 22:57 36.7 77 18 94/50 (65) 96 Room Air Physical Exam General Appearance: WD/WN, no apparent distress Eyes: normal inspection, sclerae normal ENT: normal ENT inspection, TMs normal Neck: supple, no adenopathy, thyroid normal, trachea midline Respiratory/Chest: chest non-tender, lungs clear, normal breath sounds, no respiratory distress Cardiovascular: regular rate, rhythm, no gallop, no murmur Abdomen: normal bowel sounds, non tender, soft, no organomegaly Extremities: non-tender, no calf tenderness Neurologic/Psychiatric: alert, oriented x 3 Skin: normal color, no rash Lymphatic: no adenopathy Laboratory Results Last 24 Hours Test 08/03/17 05:33 08/03/17 07:29 08/03/17 11:41 08/03/17 16:47 White Blood Count 11.95 K/uL Red Blood Count 2.79 M/uL Hemoglobin 8.6 g/dL Hematocrit 26.7 % Mean Corpuscular Volume 95.7 fL Mean Corpuscular Hemoglobin 30.8 pg Mean Corpuscular Hemoglobin Concent 32.2 g/dl Platelet Count 461 K/uL Mean Platelet Volume 9.5 fL Neutrophils (%) (Auto) 63.4 % Lymphocytes (%) (Auto) 19.1 % Monocytes (%) (Auto) 6.9 % Eosinophils (%) (Auto) 9.4 % Basophils (%) (Auto) 0.3 % Neutrophils # (Auto) 7.58 K/uL Lymphocytes # (Auto) 2.28 K/uL Monocytes # (Auto) 0.82 K/uL Eosinophils # (Auto) 1.12 K/uL Basophils # (Auto) 0.04 K/uL RDW Standard Deviation 50.9 fL RDW Coefficient of Variation 14.6 % Immature Granulocyte % (Auto) 0.9 % Immature Granulocyte # (Auto) 0.11 K/uL Red Blood Cell Morphology Unremarkable Sodium Level 139 mmol/L Potassium Level 4.2 mmol/L Chloride Level 103 mmol/L Carbon Dioxide Level 31 mmol/L Anion Gap 5.0 mmol/L Blood Urea Nitrogen 50 mg/dl Creatinine 1.58 mg/dl Est Creatinine Clear Calc Drug Dose 44.7 ml/min Estimated GFR () 51.0 Estimated GFR (Non- 44.0 BUN/Creatinine Ratio 31.6 Random Glucose 96 mg/dl Calcium Level 8.9 mg/dl Magnesium Level 2.1 mg/dl Bedside Glucose 91 mg/dl 142 mg/dl 107 mg/dl Test 08/03/17 20:03 Bedside Glucose 103 mg/dl Assessment and Plan 67-year-old poorly controlled diabetic male with indwelling Miller catheter, with evidence of persistent non Angelica albicans yeast infection. Likely has involvement of kidneys as well with developing emphysematous pyelonephritis. As discussed, patient is to be treated with 14 day course of IV caspofungin. Will follow.
[2017-08-03] MEDS: TAMSULOSIN HCL 0.4 MG CAP PO SCH (21:05)
[2017-08-03] MEDS: INSULIN GLARGINE SOLOSTAR 100 UNITS/ML 3 ML PEN SQ SCH (21:11)
[2017-08-04 00:23] VITALS: BP 91/46; PULSE 80; TEMP 36.8; O2SAT 93
[2017-08-04 06:01] LABS: HEMATOCRIT 27.9 % (42-52); MEAN CELL VOLUME 95.9 fL (80-100); MEAN CORPUSCULAR HEMOGLOBIN 30.9 pg (25-34); MEAN CORPUSCULAR HGB CONC 32.3 g/dl (32-36); MEAN PLATELET VOLUME 9.5 fL (7.4-10.4); PLATELET COUNT 464 K/uL (130-400); RED CELL DISTRIBUTION WIDTH CV 14.6 % (11.5-14.5); RED CELL DISTRIBUTION WIDTH SD 51.2 fL (36.4-46.3); WHITE BLOOD COUNT 11.22 K/uL (4.8-10.8)
[2017-08-04 06:29] LABS: CALCIUM 9.2 mg/dl (8.5-10.1); CREATININE 1.4 mg/dl (0.60-1.40); POTASSIUM 4.2 mmol/L (3.5-5.1)
[2017-08-04 07:51] VITALS: BP 132/67; PULSE 93; TEMP 36.6; O2SAT 97
[2017-08-04] MEDS: BOOST GLUCOSE CONTROL PO SCH (08:25)
[2017-08-04] MEDS: MAGNESIUM OXIDE 400 MG TAB PO SCH ×2 (08:26→20:50)
[2017-08-04] MEDS: CYANOCOBALAMIN 500 MCG TAB (VIT B-12) PO SCH (08:26)
[2017-08-04] MEDS: ATORVASTATIN 40 MG TAB PO SCH (08:26)
[2017-08-04] MEDS: METOPROLOL TARTRATE 25 MG TAB PO SCH ×2 (08:26→20:51)
[2017-08-04] MEDS: CLOPIDOGREL BISULFATE 75 MG TAB PO SCH (08:26)
[2017-08-04] MEDS: CHOLECALCIFEROL 1000 INTER.UNIT TAB PO SCH (08:26)
[2017-08-04] MEDS: LISINOPRIL 2.5 MG TAB PO SCH (08:26)
[2017-08-04] MEDS: ENOXAPARIN 40 MG/0.4 ML SYR SQ SCH (08:27)
[2017-08-04] MEDS: ASPIRIN 81 MG ECTAB PO SCH (08:27)
[2017-08-04] MEDS: INSULIN ASPART 100 UNITS/ML 3 ML PEN SC SCH ×4 (08:31→20:50)
[2017-08-04] MEDS ORDERED: CASPOFUNGIN INJ 50 MG in SODIUM CHLORIDE 0.9% 250ML 250 ML IV ONE (11:45)
--- NOTE | 2017-08-04 14:18 | Hospitalist Progress Note ---
Hospitalist Progress Note Date of Service Aug 04, 2017. Subjective Pt evaluation today including: conversation w/ patient, physical exam, chart review, lab review, review of studies Pain: none PO Intake: good Voiding: hallman catheter in place The patient was seen and examined this morning. Pt reports doing well, awaiting placement. No acute complaints. ROS: 6 point ROS reviewed and otherwise negative. Objective Vital Signs Date Time Temp Pulse Resp B/P (MAP) Pulse Ox O2 Delivery O2 Flow Rate FiO2 08/04/17 08:15 Room Air 08/04/17 07:51 36.6 93 17 132/67 (88) 97 Room Air 08/04/17 00:23 36.8 80 16 91/46 (61) 93 Room Air 08/04/17 00:00 Room Air 08/03/17 16:00 96 Room Air 95.0 08/03/17 14:52 36.8 86 20 112/67 (82) 96 Physical Exam Notes: General: awake, alert, no apparent distress, lying flat in bed on waffle mattress, thin Head: Normocephalic, atraumatic ENT: PERRL, EOMI, no pharyngeal exudate, mucous membranes moist Chest: Clear to auscultation, on room air, no adventitious breath sounds Cardiac: Regular rate and rhythm, soft systolic murmur, no JVD, normal peripheral pulses, good capillary refill Abdominal: NABS x 4 quadrants, soft, nontender to palpation, no rebound, guarding or tenderness, + Hallman catheter in place, clear yellow urine in bag Extremities: Waffle boots on BLE, Normal inspection, no peripheral edema or erythema, calfs nontender to palpation Psych: Normal mood and affect Neuro: AAO x 3, speech is clear, no peripheral sensory deficits Laboratory Results Last 24 Hours Test 08/03/17 16:47 08/03/17 20:03 08/04/17 05:37 08/04/17 07:40 Bedside Glucose 107 mg/dl 103 mg/dl 75 mg/dl White Blood Count 11.22 K/uL Red Blood Count 2.91 M/uL Hemoglobin 9.0 g/dL Hematocrit 27.9 % Mean Corpuscular Volume 95.9 fL Mean Corpuscular Hemoglobin 30.9 pg Mean Corpuscular Hemoglobin Concent 32.3 g/dl RDW Standard Deviation 51.2 fL RDW Coefficient of Variation 14.6 % Platelet Count 464 K/uL Mean Platelet Volume 9.5 fL Sodium Level 139 mmol/L Potassium Level 4.2 mmol/L Chloride Level 105 mmol/L Carbon Dioxide Level 29 mmol/L Anion Gap 5.0 mmol/L Blood Urea Nitrogen 53 mg/dl Creatinine 1.40 mg/dl Est Creatinine Clear Calc Drug Dose 50.4 ml/min Estimated GFR () 59.0 Estimated GFR (Non- 50.9 BUN/Creatinine Ratio 37.7 Random Glucose 74 mg/dl Calcium Level 9.2 mg/dl Assessment and Plan 67 y/o male admitted 07/22/2017 with gross hematuria with clots Acute pyelonephritis, cystis due to yeast (not Angelica albicans) - Finish Caspofungin IV today- 08/04. - Finished 5 day course of bladder irrigation with Amphotericin B on 07/27 - Urology on the case, Clamp CBI, avoid stent for now, f/u appt with Dr. Garcia on Aug 13 at 3:15. 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 Follow PRP with am labs HTN - continue lisinopril 2.5 mg PO qd CAD, h/o NSTEMI 02/2017, HTN, HLD - stable, asymptomatic. resume ASA and Plavix, Resume lisinopril, Continue Lopressor 25 mg PO BID, atorvastatin 40 mg PO qd Chronic systolic CHF -stable Uncontrolled DM II- - last HgbA1c 07/23 = 9.2, continue current care, counselling patient about the importance about blood glucose control and avoid medications from diabetic - Will adjust ISS to tighten coverage, CF or 25 and carb ratio of 1:8. As outpatient can have fixed novolog dosing with 5 U novolog with meals. BPH with bladder outlet obstruction, chronic Hallman--ongoing -Continue Flomax 0.4 mg PO hs CODE STATUS: FULL Disp: denied [facility] for rehab, peer to peer by Dr. Valdez done yesterday, CM to make referrals to [facility] and [facility] but no beds, getting PT/OT to re- eval, possibly can go home with home health. Finish caspofungin today. Medically stable for discharge.
[2017-08-04 16:00] VITALS: O2SAT 97
[2017-08-04 17:09] VITALS: BP 107/68; PULSE 80; TEMP 36.5; O2SAT 99
[2017-08-04] MEDS: INSULIN GLARGINE SOLOSTAR 100 UNITS/ML 3 ML PEN SQ SCH (20:48)
[2017-08-04] MEDS: TAMSULOSIN HCL 0.4 MG CAP PO SCH (20:50)
[2017-08-04 23:01] VITALS: BP 117/65; PULSE 93; TEMP 36.8; O2SAT 98
[2017-08-05 07:18] VITALS: BP 121/64; PULSE 85; TEMP 36.6; O2SAT 97
[2017-08-05] MEDS: BOOST GLUCOSE CONTROL PO SCH (07:58)
[2017-08-05] MEDS: ATORVASTATIN 40 MG TAB PO SCH (07:58)
[2017-08-05] MEDS: ASPIRIN 81 MG ECTAB PO SCH (07:58)
[2017-08-05] MEDS: CHOLECALCIFEROL 1000 INTER.UNIT TAB PO SCH (07:58)
[2017-08-05] MEDS: MAGNESIUM OXIDE 400 MG TAB PO SCH ×2 (07:59→21:12)
[2017-08-05] MEDS: CYANOCOBALAMIN 500 MCG TAB (VIT B-12) PO SCH (07:59)
[2017-08-05] MEDS: CLOPIDOGREL BISULFATE 75 MG TAB PO SCH (07:59)
[2017-08-05] MEDS: METOPROLOL TARTRATE 25 MG TAB PO SCH ×2 (07:59→21:13)
[2017-08-05] MEDS: LISINOPRIL 2.5 MG TAB PO SCH (07:59)
[2017-08-05] MEDS: ENOXAPARIN 40 MG/0.4 ML SYR SQ SCH (08:00)
[2017-08-05 09:08] VITALS: O2SAT 97
[2017-08-05] MEDS: INSULIN ASPART 100 UNITS/ML 3 ML PEN SC SCH ×4 (09:32→21:18)
[2017-08-05 15:05] VITALS: BP 105/64; PULSE 93; TEMP 36.8; O2SAT 95
--- NOTE | 2017-08-05 15:19 | Hospitalist Progress Note ---
Hospitalist Progress Note Date of Service Aug 05, 2017. Subjective Pt evaluation today including: conversation w/ patient, physical exam, chart review, lab review, review of studies Pain: none PO Intake: good Voiding: hallman catheter in place (draining clear yellow urine) The patient was seen and examined this morning. Pt reports doing well. He understands the peer to peer review process was denied by [facility]. He is in agreement to go to [facility], they do have a bed today but we're awaiting insurance authorization. He has been ambulating to the bathroom but still feels a little unsteady on his feet, but is agreeable to working more with PT/ OT. Those services were in to evaluate him yesterday and OT is recommending rehabilitation for him. ROS: Constitutional: No fever, sweats or chills Eyes: No diplopia, no worsening or blurred vision ENT: normal hearing, no trouble swallowing Respiratory: No cough, sputum, dyspnea at rest or on exertion Cardiovascular: No chest pain, tightness or palpitations Abdomen: No pain, nausea, vomiting, diarrhea or constipation Musculoskeletal: No joint pain, calf pain, swelling Neurologic: No weakness, numbness/tingling, or balance problems Psychiatric: No anxiety or depression Skin: No rash or itch Objective Vital Signs Date Time Temp Pulse Resp B/P (MAP) Pulse Ox O2 Delivery O2 Flow Rate FiO2 08/05/17 09:08 97 Room Air 08/05/17 07:18 36.6 85 18 121/64 (83) 97 Room Air 08/05/17 00:00 Room Air 08/04/17 23:01 36.8 93 18 117/65 (82) 98 Room Air 08/04/17 17:09 36.5 80 18 107/68 (81) 99 Room Air 08/04/17 16:00 97 Room Air Physical Exam Notes: General: awake, alert, no apparent distress, lying flat in bed on waffle mattress, thin Head: Normocephalic, atraumatic ENT: PERRL, EOMI, no pharyngeal exudate, mucous membranes moist Chest: Clear to auscultation, on room air, no adventitious breath sounds Cardiac: Regular rate and rhythm, soft systolic murmur, no JVD, normal peripheral pulses, good capillary refill Abdominal: NABS x 4 quadrants, soft, nontender to palpation, no rebound, guarding or tenderness, + Hallman catheter in place, clear yellow urine in bag Extremities: Normal inspection, no peripheral edema or erythema, calfs nontender to palpation Psych: Normal mood and affect Neuro: AAO x 3, speech is clear, no peripheral sensory deficits Laboratory Results Last 24 Hours Test 08/04/17 16:43 08/04/17 20:00 08/05/17 07:50 Bedside Glucose 128 mg/dl 130 mg/dl 98 mg/dl Assessment and Plan 67 y/o male admitted 07/22/2017 with gross hematuria with clots Acute pyelonephritis, cystis due to yeast (not Angelica albicans) - Finish Caspofungin IV on 08/04. - Finished 5 day course of bladder irrigation with Amphotericin B on 07/27 - Urology on the case, Clamp CBI, avoid stent for now, f/u appt with Dr. Garcia on Aug 13 at 3:15. 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 HTN - continue lisinopril 2.5 mg PO qd CAD, h/o NSTEMI 02/2017, HTN, HLD - stable, asymptomatic. resume ASA and Plavix, Resume lisinopril, Continue Lopressor 25 mg PO BID, atorvastatin 40 mg PO qd Chronic systolic CHF -stable Uncontrolled DM II- - last HgbA1c 07/23 = 9.2, continue current care, counselling patient about the importance about blood glucose control and avoid medications from diabetic - Will adjust ISS to tighten coverage, CF or 25 and carb ratio of 1:8. As outpatient can have fixed novolog dosing with 5 U novolog with meals. BPH with bladder outlet obstruction, chronic Hallman--ongoing -Continue Flomax 0.4 mg PO hs CODE STATUS: FULL Disp: denied [facility] for rehab, peer to peer by Dr. Valdez done yesterday, CM to make referrals to [facility] today as there are now beds available, PT/OT recommending rehabilitation, The pt is medically stable for discharge.
[2017-08-05 16:00] VITALS: O2SAT 95
[2017-08-05 21:10] VITALS: BP 138/70; PULSE 101
[2017-08-05] MEDS: TAMSULOSIN HCL 0.4 MG CAP PO SCH (21:13)
[2017-08-05] MEDS: INSULIN GLARGINE SOLOSTAR 100 UNITS/ML 3 ML PEN SQ SCH (21:19)
[2017-08-05 22:57] VITALS: BP 105/58; PULSE 92; TEMP 36.5; O2SAT 99
[2017-08-06 06:19] LABS: CALCIUM 9.3 mg/dl (8.5-10.1); CREATININE 1.47 mg/dl (0.60-1.40); POTASSIUM 4.3 mmol/L (3.5-5.1)
[2017-08-06 07:46] VITALS: BP 114/69; PULSE 91; TEMP 36.5; O2SAT 96
[2017-08-06] MEDS: CHOLECALCIFEROL 1000 INTER.UNIT TAB PO SCH (08:18)
[2017-08-06] MEDS: MAGNESIUM OXIDE 400 MG TAB PO SCH ×2 (08:18→20:59)
[2017-08-06] MEDS: CLOPIDOGREL BISULFATE 75 MG TAB PO SCH (08:18)
[2017-08-06] MEDS: LISINOPRIL 2.5 MG TAB PO SCH (08:18)
[2017-08-06] MEDS: CYANOCOBALAMIN 500 MCG TAB (VIT B-12) PO SCH (08:18)
[2017-08-06] MEDS: BOOST GLUCOSE CONTROL PO SCH (08:18)
[2017-08-06] MEDS: ENOXAPARIN 40 MG/0.4 ML SYR SQ SCH (08:18)
[2017-08-06] MEDS: METOPROLOL TARTRATE 25 MG TAB PO SCH ×2 (08:19→20:58)
[2017-08-06] MEDS: ATORVASTATIN 40 MG TAB PO SCH (08:19)
[2017-08-06] MEDS: ASPIRIN 81 MG ECTAB PO SCH (08:19)
[2017-08-06] MEDS: INSULIN ASPART 100 UNITS/ML 3 ML PEN SC SCH ×4 (08:21→21:04)
[2017-08-06] MEDS ORDERED: SODIUM CHLORIDE 0.9% 1000ML 1,000 ML IV SCH (08:58)
--- NOTE | 2017-08-06 09:03 | Hospitalist Progress Note ---
Hospitalist Progress Note Date of Service Aug 06, 2017. Subjective Pt evaluation today including: conversation w/ patient, conversation w/ family , physical exam, chart review, review of studies The patient was seen and examined this morning. Pt reports doing well today. He still feels somewhat "wobbly" when getting up to walk although per nursing he is more steady once he gets moving. Discussion was held with the pt regarding possible dc to [facility] today- the patient would like a finalized decision prior to deciding to go with home health. At present he would like some rehab vs going home. ROS: Constitutional: No fever, sweats or chills Eyes: No diplopia, no worsening or blurred vision ENT: normal hearing, no trouble swallowing Respiratory: No cough, sputum, dyspnea at rest or on exertion Cardiovascular: No chest pain, tightness or palpitations Abdomen: No pain, nausea, vomiting, diarrhea or constipation Musculoskeletal: No joint pain, calf pain, swelling Neurologic: No weakness, numbness/tingling, or balance problems Psychiatric: No anxiety or depression Skin: No rash or itch Objective Vital Signs Date Time Temp Pulse Resp B/P (MAP) Pulse Ox O2 Delivery O2 Flow Rate FiO2 08/06/17 07:46 36.5 91 18 114/69 (84) 96 Room Air 08/05/17 23:29 Room Air 08/05/17 22:57 36.5 92 18 105/58 (74) 99 Room Air 08/05/17 21:10 101 138/70 (92) 08/05/17 16:00 95 Room Air 08/05/17 15:05 36.8 93 16 105/64 (78) 95 Room Air 08/05/17 09:08 97 Room Air Physical Exam Notes: General: awake, alert, no apparent distress, lying flat in bed on waffle mattress, thin Head: Normocephalic, atraumatic ENT: PERRL, EOMI, no pharyngeal exudate, mucous membranes moist Chest: Clear to auscultation, on room air, no adventitious breath sounds Cardiac: Regular rate and rhythm, soft systolic murmur, no JVD, normal peripheral pulses, good capillary refill Abdominal: NABS x 4 quadrants, soft, nontender to palpation, no rebound, guarding or tenderness, + Miller catheter in place, clear yellow urine in bag Extremities: Normal inspection, no peripheral edema or erythema, calfs nontender to palpation Psych: Normal mood and affect Neuro: AAO x 3, speech is clear, no peripheral sensory deficits Laboratory Results Last 24 Hours Test 08/05/17 11:57 08/05/17 16:39 08/05/17 20:30 08/05/17 21:05 Bedside Glucose 149 mg/dl 154 mg/dl 292 mg/dl 276 mg/dl Test 08/06/17 05:37 08/06/17 07:59 Sodium Level 138 mmol/L Potassium Level 4.3 mmol/L Chloride Level 104 mmol/L Carbon Dioxide Level 29 mmol/L Anion Gap 5.0 mmol/L Blood Urea Nitrogen 50 mg/dl Creatinine 1.47 mg/dl Est Creatinine Clear Calc Drug Dose 48.0 ml/min Estimated GFR () 55.6 Estimated GFR (Non- 48.0 BUN/Creatinine Ratio 33.9 Random Glucose 90 mg/dl Calcium Level 9.3 mg/dl Bedside Glucose 83 mg/dl Assessment and Plan 67 y/o male admitted 07/22/2017 with gross hematuria with clots Acute pyelonephritis, cystis due to yeast (not Angelica albicans) - Finish Caspofungin IV on 08/04. - Finished 5 day course of bladder irrigation with Amphotericin B on 07/27 - Urology on the case, Clamp CBI, avoid stent for now, f/u appt with Dr. Garcia on Aug 13 at 3:15. 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 - will give 1 L of fluids today HTN - continue lisinopril 2.5 mg PO qd CAD, h/o NSTEMI 02/2017, HTN, HLD - stable, asymptomatic. resume ASA and Plavix, Resume lisinopril, Continue Lopressor 25 mg PO BID, atorvastatin 40 mg PO qd Chronic systolic CHF -stable Uncontrolled DM II- - last HgbA1c 07/23 = 9.2, continue current care, counselling patient about the importance about blood glucose control and avoid medications from diabetic - Will adjust ISS to tighten coverage, CF or 25 and carb ratio of 1:8. As outpatient can have fixed novolog dosing with 5 U novolog with meals. BPH with bladder outlet obstruction, chronic Miller--ongoing -Continue Flomax 0.4 mg PO hs CODE STATUS: FULL Disp: denied [facility] for rehab, peer to peer by Dr. Valdez done 08/04, Await insurance auth from [facility] today as there are now beds available, The pt is medically stable for discharge.
--- NOTE | 2017-08-06 14:10 | Discharge Instructions ---
Discharge Instructions Date of Service Aug 06, 2017. Admission Reason for Admission: Hematuria,Needs Picc Discharge Discharge Diagnosis / Problem: Urinary fungal infection Discharge Goals Goal(s): Decrease discomfort, Improve function, Increase independence, Improve disease control Activity Recommendations Activity Limitations: resume your previous activity Lifting Limitations: no more than 25 pounds, gradually increase as tolerated Exercise/Sports Limitations: rest today, gradually increase as tolerated Shower/Bathe: no limitations Driving or Machine Use: Do not drive until cleared by PCP . Instructions / Follow-Up Instructions / Follow-Up You were admitted to [facility] with hematuria, acute cystitis and diagnosed with urinary fungal infection. During your stay here you were treated with IV antibiotics and antifungal medications. During your stay in the hospital you completed a 5 day course of amphotericin (antifungal). You also completed a 2 week course of caspofungin (antifungal) on 08/04/17. You finished a course of Zosyn for recent osteomyelitis in the lower back sacral area. Continue to follow with wound care as an outpatient. Continue PT/OT Medications: Continue taking your medications as prescribed. Appointments: Follow up with your Primary Care Provider within 1 week. Follow up with wound care within 1 week after discharge from home there. Follow up with infectious disease within 1-2 weeks. Current Hospital Diet Patient's current hospital diet: AHA Diet (Heart Healthy), Diabetes Type 2 Diet Discharge Diet Recommended Diet: AHA Diet (Heart Healthy), Diabetes Type 2 Diet Pending Studies Studies pending at discharge: no Laboratory Results Hemoglobin A1c Test 07/23/17 03:27 Range/Units Estimated Average Glucose 217 mg/dl Hemoglobin A1c 9.2 H 4.5-5.6 % Medical Emergencies . Who to Call and When: Medical Emergencies: If at any time you feel your situation is an emergency, please call 911 immediately. . Non-Emergent Contact Non-Emergency issues call your: Primary Care Provider Call Non-Emergent contact if: you have a fever, temperature is above 100.5, your pain is not controlled, your pain is worsening, your pain is unusual for you, your pain is concerning you, you have any medication questions other concerns with your health. Call 911 or go directly to the Emergency Department if you experience any of the following: Chest pain, chest tightness, shortness of breath, abdominal pain , lightheadedness, dizziness, gastrointestinal bleeding, or have any other concerns regarding your health. . Past History Medical & Surgical History: (1) Fungal infection (2) Urinary tract infection (3) Hypertension (4) Leukocytosis (5) Hematuria (6) Acute renal insufficiency (7) PICC (peripherally inserted central catheter) in place (8) DM II (diabetes mellitus, type II), controlled . "Provider Documentation" section prepared by Rosalva Magallon. . VTE Core Measure Inpt VTE Proph given/why not?: Blanquita Mcleod, SCD's
[2017-08-06 16:04] VITALS: BP 120/76; PULSE 89; TEMP 36.6; O2SAT 96
[2017-08-06] MEDS: TAMSULOSIN HCL 0.4 MG CAP PO SCH (20:59)
[2017-08-06] MEDS: INSULIN GLARGINE SOLOSTAR 100 UNITS/ML 3 ML PEN SQ SCH (21:04)
[2017-08-06 23:34] VITALS: BP 94/46; PULSE 88; TEMP 36.7; O2SAT 96
[2017-08-07 05:44] LABS: HEMATOCRIT 27.9 % (42-52); MEAN CELL VOLUME 95.5 fL (80-100); MEAN CORPUSCULAR HEMOGLOBIN 30.8 pg (25-34); MEAN CORPUSCULAR HGB CONC 32.3 g/dl (32-36); MEAN PLATELET VOLUME 9.5 fL (7.4-10.4); PLATELET COUNT 439 K/uL (130-400); RED CELL DISTRIBUTION WIDTH CV 14.5 % (11.5-14.5); RED CELL DISTRIBUTION WIDTH SD 50.8 fL (36.4-46.3)
[2017-08-07 06:15] LABS: CREATININE 1.62 mg/dl (0.60-1.40)
[2017-08-07 07:31] VITALS: BP 148/75; PULSE 97; TEMP 36.4; O2SAT 97
[2017-08-07] MEDS: ATORVASTATIN 40 MG TAB PO SCH (08:19)
[2017-08-07] MEDS: BOOST GLUCOSE CONTROL PO SCH (08:19)
[2017-08-07] MEDS: CHOLECALCIFEROL 1000 INTER.UNIT TAB PO SCH (08:19)
[2017-08-07] MEDS: MAGNESIUM OXIDE 400 MG TAB PO SCH (08:19)
[2017-08-07] MEDS: ASPIRIN 81 MG ECTAB PO SCH (08:19)
[2017-08-07] MEDS: LISINOPRIL 2.5 MG TAB PO SCH (08:19)
[2017-08-07] MEDS: CYANOCOBALAMIN 500 MCG TAB (VIT B-12) PO SCH (08:20)
[2017-08-07] MEDS: CLOPIDOGREL BISULFATE 75 MG TAB PO SCH (08:20)
[2017-08-07] MEDS: METOPROLOL TARTRATE 25 MG TAB PO SCH (08:20)
[2017-08-07] MEDS: ENOXAPARIN 40 MG/0.4 ML SYR SQ SCH (09:02)
[2017-08-07] MEDS: INSULIN ASPART 100 UNITS/ML 3 ML PEN SC SCH ×2 (09:05→13:14)
--- NOTE | 2017-08-07 12:34 | DIAGNOSTIC IMAGING REPORT ---
ULTRASOUND KIDNEYS AND BLADDER CLINICAL HISTORY: Hydronephrosis. COMPARISON STUDY: Abdominal CT dated 07/22/2017. Renal ultrasound dated 07/23/2017. TECHNIQUE: Real-time, grayscale, and color flow sonography of the kidneys and bladder is performed. Images are reviewed in the transverse and longitudinal planes. FINDINGS: Kidneys: The kidneys are normal in size and echotexture. The right kidney measures 12.9 x 5.5 x 7.1 cm and the left kidney measures 12.7 x 6.0 x 5.2 cm. There is mild to moderate left-sided hydronephrosis. Small foci of air are again seen in the left renal collecting system. There is mild fullness of the right renal collecting system without hydronephrosis. No shadowing renal calculi are identified. There is no sonographic evidence of contour deforming renal mass lesion. Trace left-sided perinephric fluid is identified. Bladder: The bladder is decompressed around a Miller catheter suboptimally assessed. The wall appears thickened. A faint right ureteral jet is noted. Foci of gas are noted within the bladder lumen. IMPRESSION: 1. The kidneys normal in size. 2. There is fullness of the right renal collecting system without jose daniel hydronephrosis. 3. Mild to moderate left-sided hydronephrosis is identified, and this is similar to the 07/23/2017 examination. Small foci of gas are noted in the left renal pelvis. 4. The bladder is decompressed but appears thick walled. Foci of intraluminal gas are identified. Electronically signed by: Moi Alamzan M.D. 08/07/2017 12:33 PM Dictated Date/Time: 08/07/2017 12:29 PM
--- NOTE | 2017-08-07 16:53 | Discharge Summary ---
Discharge Summary Date of Service Aug 07, 2017. Discharge Summary Admission Date: Jul 22, 2017 at 15:48 Discharge Date: Aug 07, 2017 Discharge Disposition: assisted facility Principal Diagnosis: hematuria, acute cystitis and diagnosed with urinary fungal infection. Problems/Secondary Diagnoses: Possible acute on chronic kidney failure, Procedures: Procedures: ABDOMEN AND PELVIS CT WITHOUT CONTRAST 07/22/17 IMPRESSION: 1. Marked circumferential wall thickening of the urinary bladder with perivesicular inflammatory stranding suggests cystitis. Additionally, there is a large degree of hemorrhage within the urinary bladder lumen which is new from comparison. Correlate with urinalysis. 2. Air is again seen within the urinary bladder lumen and also within the left renal collecting system. Gas forming organism with cystitis and emphysematous pyelitis should be considered, however this may also be secondary to instrumentation with reflux of air. 3. Moderate to severe left and moderate right hydronephrosis with improvement on the right. 4. Persistent bilateral perinephric stranding suggests pyelonephritis. 5. Unchanged retroperitoneal adenopathy, likely reactive. 6. Cholelithiasis. 7. Suggested constipation. 8. Unchanged small fluid collection adjacent to the coccyx with mild coccygeal erosion. (RENAL)RETROPERITON COMP 07/22/17 IMPRESSION: 1. Bilateral renal hydronephrosis similar compared to the prior CT study.. 2. Moderate increase in cortical echogenicity on a chronic basis. 3. No evidence for abscess or collection. 4. Trace air within the left renal pelvis possibly secondary to the continual bladder irrigation. ULTRASOUND KIDNEYS AND BLADDER 08/07/17 IMPRESSION: 1. The kidneys normal in size. 2. There is fullness of the right renal collecting system without jose daniel hydronephrosis. 3. Mild to moderate left-sided hydronephrosis is identified, and this is similar to the 07/23/2017 examination. Small foci of gas are noted in the left renal pelvis. 4. The bladder is decompressed but appears thick walled. Foci of intraluminal gas are identified. Consultations: Infectious Disease Wound care Medication Reconciliation New Medications: Polyethylene (Miralax) 17 Gm Pow 17 GM PO DAILY PRN for Constipation for 30 Days, #30 DOSE [Boost] () 1 CAN LIQD 1 CAN PO DAILY for 30 Days, #30 DOSE Continued Medications: Aspirin (Aspirin Ec) 81 Mg Tab 81 MG PO DAILY Atorvastatin (Lipitor) 40 Mg Tab 40 MG PO DAILY, TAB Cholecalciferol (Vitamin D) 1,000 Unit Tab 1000 UNITS PO DAILY Clopidogrel (Plavix) 75 Mg Tab 75 MG PO DAILY, TAB Cyanocobalamin (Vitamin B12) 1,000 Mcg Tab 1000 MCG PO DAILY Folic Acid (Folvite) 1 Mg Tab 1 MG PO DAILY, TAB Insulin Glargine (Lantus Solostar) 100 Unit/Ml Inj 44 UNITS SQ QPM, PEN Lisinopril (Zestril) 2.5 Mg Tab 2.5 MG PO DAILY Magnesium Oxide (Mag-Ox) 400 Mg Tab 400 MG PO BID, TAB Methenamine Hippurate (Methenamine Hippurate) 1 Gm Tab 1 GM PO BID Metoprolol Tartrate (Lopressor) 25 Mg Tab 25 MG PO BID, TAB Senna (Senokot) 8.6 Mg Tab 1 TAB PO DAILY PRN for Constipation Tamsulosin Hcl (Flomax) 0.4 Mg Cap 0.4 MG PO HS, CAP Discontinued Medications: Piperacillin Sodium-Tazobactam (Zosyn) 1 Inj Inj 3.375 GM IV DIRECTED Discharge Exam Doing good, no complaining, has been up with service assistant, denied dizziness, denied fever and chill Review of Systems: Constitutional: + weakness, + fatigue, No fever, No chills, No sweats, No weight loss, No problem reported Eyes: No worsening of vision, No eye pain, No redness, No discharge, No diplopia, No problem reported ENT: No hearing loss, No unusual epistaxis, No nasal symptoms, No sore throat, No tinnitus, No dental problems, No trouble swallowing, No problem reported Respiratory: No cough, No sputum, No wheezing, No shortness of breath, No dyspnea on exertion, No dyspnea at rest, No hemoptysis, No problem reported Cardiovascular: No chest pain, No orthopnea, No PND, No edema, No claudication, No palpitations, No problem reported Abdomen: No pain, No nausea, No vomiting, No diarrhea, No constipation, No GI bleeding, No problem reported Musculoskeletal: No joint pain, No muscle pain, No swelling, No calf pain, No problem reported Neurologic: No memory loss, No paralysis, No weakness, No numbness/tingling , No vertigo, No balance problems, No problem reported Psychiatric: No depression symptoms, No anhedonism, No anxiety, No insomnia , No substance abuse, No problem reported Endocrine: No fatigue, No excessive thirst, No excessive urination, No problem reported Hematologic / Lymphatic: No abnormal bleeding/bruising, No clotting problems , No swollen lymph nodes, No night sweats, No problem reported Integumentary: No rash, No itch, No new/changing skin lesions, No color change, No bleeding, No problem reported Physical Exam: General Appearance: WD/WN, no apparent distress, + thin, + pertinent finding (frail and chronically ill-looking) Eyes: normal inspection, PERRL, EOMI ENT: normal ENT inspection, hearing grossly normal, TMs normal, pharynx normal Neck: supple, no adenopathy, thyroid normal, no JVD Respiratory/Chest: chest non-tender, lungs clear, no respiratory distress, no accessory muscle use, + decreased breath sounds Cardiovascular: regular rate, rhythm, no edema, no gallop, no JVD, no murmur , normal peripheral pulses Abdomen / GI: normal bowel sounds, non tender, soft, no organomegaly, no pulsatile mass, + pertinent finding (Miller catheter in place) Extremities: normal inspection, no calf tenderness, normal capillary refill , no pedal edema Neurologic/Psychiatric: registry rn II-XII nml as tested, no motor/sensory deficits , alert, normal mood/affect Skin: normal color, warm/dry, no rash Hospital Course PA Physician Supervision Note: I interviewed and examined the patient. Discussed with mid level PA and agree with findings and plan as documented in the note. Any exceptions or clarifications are listed here: None, agreed current management, for details please referral to PA's note 67 y/o male admitted 07/22/2017 with gross hematuria with clots Acute pyelonephritis, cystis due to yeast (not Angelica albicans), finished antibiotic treatment, Urology on the case, Clamp CBI, avoid stent for now, f/u appt with Dr. Garcia on Aug 13 at 3:15. 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, mild rebounds or worsening renal function today, which is after encourage on plenty fluid intake, creatinine is 1.7 from 1.4 today, was watery about any hydronephrosis or post renal blockage which cause worsening renal function, ultrasound was done which has no any new changes, therefore I feel okay to discharge him, has advised to follow-up with PCP about renal function in 5-7 days HTN, CAD, h/o NSTEMI 02/2017, HTN, HLD, Chronic systolic CHF, Uncontrolled DM II ; this condition stable continue current care denied [facility] for rehab, peer to peer, CM to make referrals and discharge to [facility] a PT/OT re-eval done, both feel patient generally weak, and balance problem, and possible risk of fall, continue PT OT when go to [facility] Instructions / Follow-Up You were admitted to [facility] with hematuria, acute cystitis and diagnosed with urinary fungal infection. During your stay here you were treated with IV antibiotics and antifungal medications. During your stay in the hospital you completed a 5 day course of amphotericin (antifungal). You also completed a 2 week course of caspofungin (antifungal) on 08/04/17. You finished a course of Zosyn for recent osteomyelitis in the lower back sacral area. Continue to follow with wound care as an outpatient. Continue PT/OT Possible acute on chronic kidney failure, you need to follow-up with your PCP and have lab testing in 5-7 days Total Time Spent: Greater than 30 minutes This includes examination of the patient, discharge planning, medication reconciliation, and communication with other providers. Discharge Instructions Please refer to the electronic Patient Visit Report (Discharge Instructions) for additional information. Additional Copies To Xavier Leyva M.D.; Barb Gray M.D.
[2017-09-24] MEDS ORDERED: NVLGIPEN SC (11:56)
[2017-09-24] MEDS ORDERED: INSU100I2 SC (12:34)
== END 2017-08-07 19:00 | DRG 698 ==
LOC: C.EDB 22:44 → C.MSW 07-22 01:41 → ENRESERV 07-22 01:51 → OBSVTOIN 07-22 15:48 → ENRESERV 07-22 18:51 → C.2E 07-22 19:59 → ENRESERV 07-25 10:15 → C.MS4W 07-25 11:46
PROVIDERS: ADMIT Internal Medicine; ATTEND Hospitalist
PROC: 02HV33Z Insertion of Infusion Device into Superior Vena Cava, Percutaneous Approach (ICD-10-PCS; principal; 2017-07-23)
DX: T83.098A Other mechanical complication of other urinary catheter, initial encounter (principal); E11.10 Type 2 diabetes mellitus with ketoacidosis without coma; N10 Acute pyelonephritis; E46 Unspecified protein-calorie malnutrition; M86.8X8 Other osteomyelitis, other site; N13.39 Other hydronephrosis; N17.9 Acute kidney failure, unspecified; T82.524A Displacement of infusion catheter, initial encounter; B49 Unspecified mycosis; N30.01 Acute cystitis with hematuria; D62 Acute posthemorrhagic anemia; I50.22 Chronic systolic (congestive) heart failure; I13.0 Hypertensive heart and chronic kidney disease with heart failure and stage 1 through stage 4 chronic kidney disease, or unspecified chronic kidney disease; N18.3 Chronic kidney disease, stage 3 (moderate); Z86.19 Personal history of other infectious and parasitic diseases; Z87.440 Personal history of urinary (tract) infections; Z79.4 Long term (current) use of insulin; Z79.82 Long term (current) use of aspirin; Z87.891 Personal history of nicotine dependence; Y84.6 Urinary catheterization as the cause of abnormal reaction of the patient, or of later complication, without mention of misadventure at the time of the procedure; Y92.019 Unspecified place in single-family (private) house as the place of occurrence of the external cause; N40.1 Benign prostatic hyperplasia with lower urinary tract symptoms; I25.2 Old myocardial infarction; I25.10 Atherosclerotic heart disease of native coronary artery without angina pectoris; Y81.2 Prosthetic and other implants, materials and accessory general- and plastic-surgery devices associated with adverse incidents; Y92.89 Other specified places as the place of occurrence of the external cause; E86.0 Dehydration; R33.9 Retention of urine, unspecified

== ENCOUNTER → 2017-07-21 | Outpatient (CLI) | payer BC ==
[~2017-07-21] MED LIST changes: +Boost PO; +MRLP17 PO; +PANT40TA PO; +[UNRECOGNIZED DRUG - CODE] IV
[2017-07-21 14:51] LABS: BASO % 0.5 %; BASO ABS # 0.05 K/uL (0-0.2); EOS % 5.1 %; EOS ABS # 0.48 K/uL (0-0.5); HEMATOCRIT 35.4 % (42-52); HEMOGLOBIN 11.6 g/dL (14.0-18.0); IG# 0.06 K/uL (0.00-0.02); LYMPH % 14.4 %; LYMPH ABS # 1.35 K/uL (1.2-3.4); MEAN CELL VOLUME 94.1 fL (80-100); MEAN CORPUSCULAR HEMOGLOBIN 30.9 pg (25-34); MEAN CORPUSCULAR HGB CONC 32.8 g/dl (32-36); MEAN PLATELET VOLUME 10.2 fL (7.4-10.4); MONO % 8.5 %; NEUT % 70.9 %; NEUT ABS # 6.65 K/uL (1.4-6.5); PLATELET COUNT 458 K/uL (130-400); RED CELL DISTRIBUTION WIDTH CV 14.2 % (11.5-14.5); RED CELL DISTRIBUTION WIDTH SD 48.3 fL (36.4-46.3); WHITE BLOOD COUNT 9.39 K/uL (4.8-10.8)
[2017-07-21 15:37] LABS: ALBUMIN 2.6 gm/dl (3.4-5.0); ALKALINE PHOSPHATASE 139 U/L (45-117); ALT/SGPT 20 U/L (12-78); AST/SGOT 16 U/L (15-37); BLOOD UREA NITROGEN 24 mg/dl (7-18); CALCIUM 8.9 mg/dl (8.5-10.1); CARBON DIOXIDE 31 mmol/L (21-32); CREATININE 1.24 mg/dl (0.60-1.40); GLUCOSE 419 mg/dl (70-99); POTASSIUM 3.9 mmol/L (3.5-5.1); SODIUM 136 mmol/L (136-145); TOTAL PROTEIN 7.1 gm/dl (6.4-8.2)
--- NOTE | 2017-08-07 09:15 | CODING QUERY NO DIAGNOSIS ---
Valid Physician Order Needed A valid physician order must be submitted in order to properly bill for the service(s) provided, including date of service(s), valid diagnosis, and physician signature. If these tests are done on a recurring basis the original physician order must be submitted in order to code and bill for the service(s) provided. Please fax us the original, signed physician order so that we may expedite billing to [phone] DOS 07/21/2017 * CPK * Comp. Metabolic * CBC w/ Diff * Urinalysis * Urine C&S Thank you Sarah [facility] [employer]
== END | disposition home or self-care (01) ==
LOC: C.LABSPEC 14:10
PROVIDERS: ATTEND Internal Medicine Infectious Disease
DX: M86.9 Osteomyelitis, unspecified (principal)

== ENCOUNTER → 2017-08-10 | Outpatient (CLI) | payer BC ==
[~2017-08-10] MED LIST changes: +Boost PO; +MRLP17 PO; -PIPE1INJ11 IV
[2017-08-10 08:43] LABS: HEMATOCRIT 28.8 % (42-52); HEMOGLOBIN 9.1 g/dL (14.0-18.0); MEAN CORPUSCULAR HEMOGLOBIN 30.3 pg (25-34); MEAN CORPUSCULAR HGB CONC 31.6 g/dl (32-36); MEAN PLATELET VOLUME 9.8 fL (7.4-10.4); PLATELET COUNT 399 K/uL (130-400); RED CELL DISTRIBUTION WIDTH CV 14.3 % (11.5-14.5); RED CELL DISTRIBUTION WIDTH SD 50.5 fL (36.4-46.3); WHITE BLOOD COUNT 9.77 K/uL (4.8-10.8)
[2017-08-10 08:58] LABS: ALBUMIN 2.7 gm/dl (3.4-5.0); ALT/SGPT 30 U/L (12-78); BLOOD UREA NITROGEN 43 mg/dl (7-18); CALCIUM 9.3 mg/dl (8.5-10.1); CARBON DIOXIDE 28 mmol/L (21-32); CREATININE 1.31 mg/dl (0.60-1.40); GLUCOSE 80 mg/dl (70-99); POTASSIUM 4.2 mmol/L (3.5-5.1); SODIUM 138 mmol/L (136-145)
[2017-08-10 09:00] LABS: ALKALINE PHOSPHATASE 125 U/L (45-117); AST/SGOT 20 U/L (15-37)
--- NOTE | 2017-08-17 12:58 | CODING QUERY NO DIAGNOSIS ---
: 1950 Valid Physician Order Needed A valid physician order must be submitted in order to properly bill for the service(s) provided, including date of service(s), valid diagnosis, and physician signature. If these tests are done on a recurring basis the original physician order must be submitted in order to code and bill for the service(s) provided. Please fax us the original, signed physician order so that we may expedite billing to [phone] DOS 08/10/2017 * Complete Metabolic (unable to read diagnosis code provided) * CDC w/o Diff Thank you Sarah [facility] Information Management
== END ==
LOC: C.LABUPNIT 08:23
PROVIDERS: ATTEND Nurse Practitioner Family
DX: A41.9 Sepsis, unspecified organism (principal); E08.22 Diabetes mellitus due to underlying condition with diabetic chronic kidney disease

== ENCOUNTER → 2017-08-17 | Outpatient (CLI) | payer BC ==
[2017-08-17 08:19] LABS: BASO % 0.3 %; BASO ABS # 0.04 K/uL (0-0.2); EOS % 4.3 %; HEMATOCRIT 26.7 % (42-52); HEMOGLOBIN 8.7 g/dL (14.0-18.0); IG# 0.11 K/uL (0.00-0.02); LYMPH % 16.3 %; LYMPH ABS # 2.29 K/uL (1.2-3.4); MEAN CELL VOLUME 93.4 fL (80-100); MEAN CORPUSCULAR HEMOGLOBIN 30.4 pg (25-34); MEAN CORPUSCULAR HGB CONC 32.6 g/dl (32-36); MEAN PLATELET VOLUME 9.5 fL (7.4-10.4); MONO ABS # 1.82 K/uL (0.11-0.59); NEUT % 65.3 %; NEUT ABS # 9.19 K/uL (1.4-6.5); PLATELET COUNT 387 K/uL (130-400); RED CELL DISTRIBUTION WIDTH CV 13.6 % (11.5-14.5); RED CELL DISTRIBUTION WIDTH SD 46.8 fL (36.4-46.3); WHITE BLOOD COUNT 14.05 K/uL (4.8-10.8)
== END | disposition home or self-care (01) ==
LOC: C.LABUPNIT 07:41
PROVIDERS: ATTEND Nurse Practitioner Family
DX: I10 Essential (primary) hypertension (principal)

== ENCOUNTER → 2017-08-18 | Outpatient (CLI) | payer BC ==
[2017-08-18 08:36] LABS: BASO % 0.2 %; BASO ABS # 0.03 K/uL (0-0.2); EOS % 5.5 %; EOS ABS # 0.66 K/uL (0-0.5); HEMATOCRIT 27.2 % (42-52); HEMOGLOBIN 8.8 g/dL (14.0-18.0); LYMPH % 17.7 %; LYMPH ABS # 2.14 K/uL (1.2-3.4); MEAN CELL VOLUME 94.4 fL (80-100); MEAN CORPUSCULAR HEMOGLOBIN 30.6 pg (25-34); MEAN CORPUSCULAR HGB CONC 32.4 g/dl (32-36); MEAN PLATELET VOLUME 9.9 fL (7.4-10.4); MONO % 12.7 %; MONO ABS # 1.53 K/uL (0.11-0.59); NEUT % 63.1 %; NEUT ABS # 7.61 K/uL (1.4-6.5); PLATELET COUNT 402 K/uL (130-400); RED CELL DISTRIBUTION WIDTH CV 13.3 % (11.5-14.5); RED CELL DISTRIBUTION WIDTH SD 46.3 fL (36.4-46.3); WHITE BLOOD COUNT 12.07 K/uL (4.8-10.8)
== END ==
LOC: C.LABUPNIT 08:10
PROVIDERS: ATTEND Nurse Practitioner Family
DX: D72.829 Elevated white blood cell count, unspecified (principal)

== ENCOUNTER 2017-09-10 02:15 | Emergency (ER) | payer BC ==
[~2017-09-10] VITALS: Ht 182.9 cm; Wt 68.5 kg
[2017-09-10 02:17] VITALS: BP 136/84; PULSE 105; TEMP 36.5; O2SAT 99; Ht 182.9 cm; Wt 68.5 kg
--- NOTE | 2017-09-10 02:24 | EMERGENCY ROOM VISIT NOTE ---
History First contact with patient: 02:18 Chief Complaint: CATHETER REPLACEMENT Stated Complaint: CATHETER REPLACEMENT History of Present Illness The patient is a 67 year old male who presents to the Emergency Room for evaluation of hallman catheter complication. Patient with chronic indwelling hallman which was replaced this afternoon. Since then he noticed it was coming unconnected to leg bag. No pain, fevers, nausea, vomiting, back pain, decreased UOP, nor other symptoms. He put tube back together which fixed issues. He has taken no medications for this this evening. Nothing makes better/worse. Denies any other issues. Notes recently had left arm PICC removed without issues. States he is eating well and is living at home. Arrives via taxi. Review of Systems See HPI for pertinent positives & negatives. A total of 6 systems reviewed and were otherwise negative. Past Medical/Surgical History Medical Problems: (1) Abscess (2) Acute blood loss anemia (3) Acute renal insufficiency (4) ATN (acute tubular necrosis) (5) DM II (diabetes mellitus, type II), controlled (6) Fungal infection (7) hematuria, osteomyelitis, (8) Hydronephrosis (9) Hypertension (10) Hypertension (11) Leukocytosis (12) MSSA (methicillin susceptible Staphylococcus aureus) septicemia (13) Needs peripherally inserted central catheter (PICC) (14) PICC (peripherally inserted central catheter) in place (15) Recurrent UTI (16) Sepsis (17) Urinary tract infection Family History No pertinent family history Social History Smoking Status: Former Smoker Alcohol Use: none Drug Use: none Marital Status: single Housing Status: lives alone Occupation Status: retired Current/Historical Medications Scheduled Aspirin (Aspirin Ec), 81 MG PO DAILY Atorvastatin (Lipitor), 40 MG PO DAILY Cholecalciferol (Vitamin D), 1,000 UNITS PO DAILY Clopidogrel (Plavix), 75 MG PO DAILY Cyanocobalamin (Vitamin B12), 1,000 MCG PO DAILY Folic Acid (Folvite), 1 MG PO DAILY Insulin Glargine (Lantus Solostar), 44 UNITS SQ QPM Lisinopril (Zestril), 2.5 MG PO DAILY Magnesium Oxide (Mag-Ox), 400 MG PO BID Methenamine Hippurate (Methenamine Hippurate), 1 GM PO BID Metoprolol Tartrate (Lopressor), 25 MG PO BID Tamsulosin Hcl (Flomax), 0.4 MG PO HS [Boost], 1 CAN PO DAILY Scheduled PRN Polyethylene (Miralax), 17 GM PO DAILY PRN for Constipation Senna (Senokot), 1 TAB PO DAILY PRN for Constipation Physical Exam Vital Signs Date Time Temp Pulse Resp B/P (MAP) Pulse Ox O2 Delivery O2 Flow Rate FiO2 09/10/17 02:17 36.5 105 20 136/84 99 Room Air Physical Exam GENERAL: Patient is chronically unwell appearing and in no acute distress. Mildly cachetic (improved from previous evaluation) HEENT: No acute trauma, normocephalic atraumatic, mucous membranes moist, no nasal congestion, no scleral icterus. NECK: No stridor, no adenopathy, no meningismus, trachea is midline. LUNGS: No dyspnea. Clear to auscultation and equal bilaterally. No wheeze, no rhonchi. HEART: Regular rate and rhythm. No murmurs, rubs, gallops appreciated. ABDOMEN: Soft, nontender, bowel sounds positive, no masses appreciated, no peritonitis. : Hallman in place. Circumcised male. Moderate fungal looking rash/drainage around scrotum/upper inner thighs. Non-tender, no crepitus. EXTREMITIES: Normal motion all extremities, no cyanosis, no edema. NEUROLOGIC: Alert and oriented, no acute motor or sensory deficits, no focal weakness, cranial nerves grossly intact. SKIN: No rash, no jaundice, no diaphoresis. Medical Decision & Procedures Medical Decision 67 yr old male with hallman that has come unconnected to tube to leg bag. Easily re-inserted and secured to leg. Making urine and with no other complaints. Patient states he is doing well at home and eating regularly. He has what appears to be candidal infection of groin which he confirms is being managed/ monitored by home nursing. This does not appear to be Faby, cellulitis, nor acute issue. In all he looks improved from my previous interactions with him. He admits he came here in a towel so that he wouldn't have to put on clothes at home, thus we will send him home in scrubs and I discussed the importance of him continuing to keep good care of himself. Medication Reconcilliation Current Medication List: was personally reviewed by me Blood Pressure Screening Patient's blood pressure: Normal blood pressure Impression Primary Impression: Hallman catheter problem Additional Impression: Complication of Hallman catheter Departure Information Dispostion Home / Self-Care Condition GOOD Referrals No Doctor, Assigned (PCP) Patient Instructions My [facility] Additional Instructions Continue monitoring for issues with hallman and follow instructions per your providers. Monitor rash on groin and if worsening, pain, fevers, or other concerns return for further evaluation. Problem Qualifiers
== END 2017-09-10 02:30 | disposition home or self-care (01) ==
LOC: C.EDB 02:16
DX: T83.098A Other mechanical complication of other urinary catheter, initial encounter (principal); Y84.6 Urinary catheterization as the cause of abnormal reaction of the patient, or of later complication, without mention of misadventure at the time of the procedure; E11.9 Type 2 diabetes mellitus without complications; I10 Essential (primary) hypertension; Z86.19 Personal history of other infectious and parasitic diseases; Z87.440 Personal history of urinary (tract) infections; Z87.891 Personal history of nicotine dependence; Z79.02 Long term (current) use of antithrombotics/antiplatelets; Z79.4 Long term (current) use of insulin; Z79.82 Long term (current) use of aspirin; Z79.899 Other long term (current) drug therapy

== ENCOUNTER 2017-09-21 18:35 | Observation (INO) | payer BC, OTHER ==
[~2017-09-21] VITALS: Ht 182.9 cm; Wt 70.9 kg
[~2017-09-21 18:35] MED LIST changes: -CHOL1000 PO; -CYAN10005 PO; -INSU100I2 SC; -METO25TA56 PO; -NVLGIPEN SC; -POLY335019 PO
[2017-09-21] MEDS ORDERED: SODIUM CHLORIDE 0.9% 1000ML 1,000 ML IV STA (19:19)
[2017-09-21] MEDS ORDERED: SODIUM CHLORIDE 0.9% 500ML 500 ML IV STA (19:19)
--- NOTE | 2017-09-21 19:37 | DIAGNOSTIC IMAGING REPORT ---
CHEST ONE VIEW PORTABLE CLINICAL HISTORY: Change in neurological status. Weakness. COMPARISON STUDY: No previous studies for comparison. FINDINGS: The cardiac and mediastinal contours are normal. There is no evidence of focal pulmonary consolidation. There is no evidence of failure. No pleural effusions are visualized.[ There are minor basilar atelectatic changes IMPRESSION: No active disease in the chest. Electronically signed by: Houston Marques M.D. 09/21/2017 7:35 PM Dictated Date/Time: 09/21/2017 7:35 PM
[2017-09-21 20:05] LABS: BASO % 0.2 %; BASO ABS # 0.02 K/uL (0-0.2); EOS % 3.7 %; EOS ABS # 0.31 K/uL (0-0.5); HEMATOCRIT 32.6 % (42-52); HEMOGLOBIN 10.5 g/dL (14.0-18.0); IG# 0.11 K/uL (0.00-0.02); LYMPH ABS # 1.75 K/uL (1.2-3.4); MEAN CELL VOLUME 91.1 fL (80-100); MEAN CORPUSCULAR HEMOGLOBIN 29.3 pg (25-34); MEAN CORPUSCULAR HGB CONC 32.2 g/dl (32-36); MEAN PLATELET VOLUME 9.8 fL (7.4-10.4); MONO % 6.8 %; MONO ABS # 0.57 K/uL (0.11-0.59); NEUT ABS # 5.57 K/uL (1.4-6.5); PLATELET COUNT 294 K/uL (130-400); RED CELL DISTRIBUTION WIDTH CV 14.2 % (11.5-14.5); RED CELL DISTRIBUTION WIDTH SD 46.9 fL (36.4-46.3); WHITE BLOOD COUNT 8.33 K/uL (4.8-10.8)
[2017-09-21 20:14] LABS: PTT PATIENT 23.6 SECONDS (21.0-31.0)
[2017-09-21 20:33] LABS: ALBUMIN 3.1 gm/dl (3.4-5.0); ALKALINE PHOSPHATASE 132 U/L (45-117); ALT/SGPT 30 U/L (12-78); AST/SGOT 15 U/L (15-37); BLOOD UREA NITROGEN 37 mg/dl (7-18); CALCIUM 8.4 mg/dl (8.5-10.1); CARBON DIOXIDE 26 mmol/L (21-32); CREATININE 1.52 mg/dl (0.60-1.40); GLUCOSE 359 mg/dl (70-99); LIPASE 215 U/L (73-393); POTASSIUM 4.3 mmol/L (3.5-5.1); SODIUM 138 mmol/L (136-145); TOTAL PROTEIN 7.7 gm/dl (6.4-8.2)
[2017-09-21] MEDS ORDERED: NovoLIN-R INSULIN PER UNIT CHARGE IV STA (20:53)
[2017-09-21] MEDS ORDERED: CEFTRIAXONE SOD INJ 1 GM ADDVIAL IV STA (21:32)
[2017-09-21] MEDS ORDERED: ASPI81TA28 PO (21:58)
[2017-09-21] MEDS ORDERED: ATOR-24 PO (21:59)
[2017-09-21] MEDS ORDERED: CLOP1TAB15 PO (21:59)
[2017-09-21] MEDS ORDERED: FOLI1TAB8 PO (22:00)
[2017-09-21] MEDS ORDERED: INSDGIPEN SQ (22:01)
[2017-09-21] MEDS ORDERED: LISI-789 PO (22:02)
[2017-09-21] MEDS ORDERED: MAGN400T6 PO (22:03)
[2017-09-21] MEDS ORDERED: METO25TA56 PO (22:04)
[2017-09-21] MEDS ORDERED: METH-1305 PO (22:06)
[2017-09-21] MEDS ORDERED: POLY335019 PO (22:08)
[2017-09-21] MEDS ORDERED: SENN-61 PO (22:09)
[2017-09-21] MEDS ORDERED: TAMS0.4C38 PO (22:10)
[2017-09-21] MEDS ORDERED: CYAN10005 PO (22:11)
[2017-09-21] MEDS ORDERED: CHOL1000 PO (22:12)
--- NOTE | 2017-09-21 22:18 | EMERGENCY ROOM VISIT NOTE ---
History Report prepared by Destiny: Shahzad Knowles Under the Supervision of: Dr. Feliz Talamantes M.D. First contact with patient: 18:54 Chief Complaint: REFERRED BY DOCTOR Stated Complaint: DOCTOR CALLED AND TOLD HIM TO COME HERE History of Present Illness The patient is a 67 year old male who presents to the Emergency Room with complaints of constant low blood cell count and high blood sugar earlier today. The patient states that he was at his PCP this morning, and they called him about an hour ago and told him to come to the ED for evaluation. The patient states that during one reading his blood sugar was in the 400s. He notes that he has been having diarrhea, though he attributes that to eating trail mix. The patient reports that he has had a catheter in place for the past year, and he has a history of frequent UTIs. He reports that he is currently on Lantus for his diabetes, and he used to be on metformin. He denies any recent UTIs. Pt denies LOC, headache, fevers, chills, diaphoresis, visual changes, neck pain, chest pain, breathing difficulties, nausea, vomiting, abdominal pain, back pain , melena, hematochezia, urinary symptoms, numbness, weakness, lymphadenopathy, rash, or other complaints. Review of the patient's EMR shows that the patient's hemoglobin was 10.4 which is up from 8.8 in August. His blood glucose level was 436 without signs of DKA. Source of History: patient Onset: this morning Position: other (global) Quality: other (low blood count and high blood sugar) Timing: constant Associated Symptoms: + diarrhea Review of Systems See HPI for pertinent positives and negatives. A total of ten systems were reviewed and were otherwise negative. Past Medical & Surgical Medical Problems: (1) Diabetes (2) HTN (hypertension) (3) Recurrent UTI Social History Smoking Status: Never Smoker Marital Status: single Occupation Status: retired Current/Historical Medications Scheduled Aspirin (Aspirin Ec), 81 MG PO DAILY Atorvastatin (Lipitor), 40 MG PO HS Cholecalciferol (Vitamin D3), 1,000 UNITS PO DAILY Clopidogrel (Plavix), 75 MG PO DAILY Cyanocobalamin (Vitamin B-12), 1,000 MCG PO DAILY Folic Acid (Folvite), 1 MG PO DAILY Insulin Glargine (Lantus Solostar), 44 UNITS SQ QPM Lisinopril (Zestril), 2.5 MG PO DAILY Magnesium Oxide (Mag-Ox), 400 MG PO BID Methenamine Hippurate (Methenamine Hippurate), 1 GM PO BID Metoprolol Tartrate (Lopressor) (Lopressor), 25 MG PO BID Tamsulosin Hcl (Flomax), 0.4 MG PO HS Scheduled PRN Polyethylene Glycol 3350 (Miralax), 17 GM PO BID PRN for Constipation Senna (Senokot), 8.6 MG PO DAILY PRN for Constipation Allergies Uncoded Allergies: POLIOVIRUS VACCINE (Allergy, Unknown, UNKNOWN, 09/21/17) Physical Exam Vital Signs Date Time Temp Pulse Resp B/P (MAP) Pulse Ox O2 Delivery O2 Flow Rate FiO2 09/21/17 21:43 98 18 147/83 100 Room Air 09/21/17 19:39 99 Room Air 09/21/17 19:38 98 09/21/17 18:44 36.6 110 18 130/45 91 Room Air Physical Exam GENERAL: Awake, alert, somewhat frail appearing. No acute distress. HENT: Normocephalic, atraumatic. Oropharynx unremarkable. EYES: Pale conjunctiva. Sclera non-icteric. NECK: Supple. No nuchal rigidity. FROM. No masses. RESPIRATORY: Clear to auscultation. No wheezes. No rales. Normal respiratory effort. CARDIAC: Borderline tachycardic rate. Normal rhythm. No murmurs. No rubs. Extremities warm and well perfused. Pulses equal. No JVD. GI: Soft, non-distended. No tenderness to palpation. No rebound or guarding. No masses. RECTAL: Deferred. : Miller Catheter in place. MUSCULOSKELETAL: Atraumatic. Chest examination reveals no tenderness. The back is symmetrical on inspection without obvious abnormality. There is no CVA tenderness to palpation. No joint edema. LOWER EXTREMITIES: 1+ lower extremity edema. Calves are equal size bilaterally and non-tender. No discoloration. NEURO: Normal sensorium. No sensory or motor deficits noted. SKIN: No rash or jaundice noted. Medical Decision & Procedures ER Provider Diagnostic Interpretation: Radiology results as stated below per my review and radiologist interpretation: CHEST ONE VIEW PORTABLE CLINICAL HISTORY: Change in neurological status. Weakness. COMPARISON STUDY: No previous studies for comparison. FINDINGS: The cardiac and mediastinal contours are normal. There is no evidence of focal pulmonary consolidation. There is no evidence of failure. No pleural effusions are visualized.[ There are minor basilar atelectatic changes IMPRESSION: No active disease in the chest. Electronically signed by: Houston Marques M.D. 09/21/2017 7:35 PM Dictated Date/Time: 09/21/2017 7:35 PM Laboratory Results 09/21/17 19:30 Red Blood Count 3.58, Mean Corpuscular Volume 91.1, Mean Corpuscular Hemoglobin 29.3, Mean Corpuscular Hemoglobin Concent 32.2, Mean Platelet Volume 9.8, Neutrophils (%) (Auto) 67.0, Lymphocytes (%) (Auto) 21.0, Monocytes (%) (Auto) 6.8, Eosinophils (%) (Auto) 3.7, Basophils (%) (Auto) 0.2, Neutrophils # (Auto) 5.57, Lymphocytes # (Auto) 1.75, Monocytes # (Auto) 0.57, Eosinophils # (Auto) 0.31, Basophils # (Auto) 0.02 09/21/17 19:30 Test 09/21/17 19:30 09/21/17 20:50 White Blood Count 8.33 K/uL (4.8-10.8) Red Blood Count 3.58 M/uL (4.7-6.1) Hemoglobin 10.5 g/dL (14.0-18.0) Hematocrit 32.6 % (42-52) Mean Corpuscular Volume 91.1 fL (80-100) Mean Corpuscular Hemoglobin 29.3 pg (25-34) Mean Corpuscular Hemoglobin Concent 32.2 g/dl (32-36) Platelet Count 294 K/uL (130-400) Mean Platelet Volume 9.8 fL (7.4-10.4) Neutrophils (%) (Auto) 67.0 % Lymphocytes (%) (Auto) 21.0 % Monocytes (%) (Auto) 6.8 % Eosinophils (%) (Auto) 3.7 % Basophils (%) (Auto) 0.2 % Neutrophils # (Auto) 5.57 K/uL (1.4-6.5) Lymphocytes # (Auto) 1.75 K/uL (1.2-3.4) Monocytes # (Auto) 0.57 K/uL (0.11-0.59) Eosinophils # (Auto) 0.31 K/uL (0-0.5) Basophils # (Auto) 0.02 K/uL (0-0.2) RDW Standard Deviation 46.9 fL (36.4-46.3) RDW Coefficient of Variation 14.2 % (11.5-14.5) Immature Granulocyte % (Auto) 1.3 % Immature Granulocyte # (Auto) 0.11 K/uL (0.00-0.02) Prothrombin Time 10.0 SECONDS (9.0-12.0) Prothromb Time International Ratio 1.0 (0.9-1.1) Activated Partial Thromboplast Time 23.6 SECONDS (21.0-31.0) Partial Thromboplastin Ratio 0.9 Anion Gap 8.0 mmol/L (3-11) Est Creatinine Clear Calc Drug Dose 46.7 ml/min Estimated GFR () 53.4 Estimated GFR (Non- 46.1 BUN/Creatinine Ratio 24.5 (10-20) Calcium Level 8.4 mg/dl (8.5-10.1) Magnesium Level 2.6 mg/dl (1.8-2.4) Total Bilirubin 0.3 mg/dl (0.2-1) Direct Bilirubin < 0.1 mg/dl (0-0.2) Aspartate Amino Transf (AST/SGOT) 15 U/L (15-37) Alanine Aminotransferase (ALT/SGPT) 30 U/L (12-78) Alkaline Phosphatase 132 U/L (45-117) Troponin I < 0.015 ng/ml (0-0.045) Total Protein 7.7 gm/dl (6.4-8.2) Albumin 3.1 gm/dl (3.4-5.0) Lipase 215 U/L (73-393) Beta-Hydroxybutyric Acid 1.17 mg/dL (0.2-2.81) Thyroid Stimulating Hormone (TSH) 1.270 uIu/ml (0.300-4.500) Urine Color YELLOW Urine Appearance CLOUDY (CLEAR) Urine pH 6.0 (4.5-7.5) Urine Specific [place] 1.026 (1.000-1.030) Urine Protein TRACE (NEG) Urine Glucose (UA) 3+ (NEG) Urine Ketones NEG (NEG) Urine Occult Blood 2+ (NEG) Urine Nitrite POS (NEG) Urine Bilirubin NEG (NEG) Urine Urobilinogen NEG (NEG) Urine Leukocyte Esterase MODERATE (NEG) Urine WBC (Auto) >30 /hpf (0-5) Urine RBC (Auto) 10-30 /hpf (0-4) Urine Hyaline Casts (Auto) 1-5 /lpf (0-5) Urine Epithelial Cells (Auto) 5-10 /lpf (0-5) Urine Bacteria (Auto) 2+ (NEG) Laboratory results reviewed by me Medications Administered Medications (Trade) Dose Ordered Sig/Nilda Route Start Time Stop Time Status Last Admin Dose Admin Sodium Chloride 1,000 ml @ 125 mls/hr Q8H STAT IV 09/21/17 19:19 09/22/17 03:18 09/21/17 20:40 125 MLS/HR Sodium Chloride 500 ml @ 999 mls/hr Q31M STAT IV 09/21/17 19:19 09/21/17 19:49 DC 09/21/17 19:46 999 MLS/HR Insulin Human Regular (novoLIN-R U-100 PER UNIT) 10 units NOW STAT IV 09/21/17 20:53 09/21/17 20:54 DC 09/21/17 21:19 10 UNITS Ceftriaxone Sodium (Rocephin Inj) 1 gm NOW STAT IV 09/21/17 21:32 09/21/17 21:33 DC 09/21/17 21:45 1 GM ECG Per My Interpretation Indication: other (abnormal labs) Rate (beats per minute): 98 Rhythm: normal sinus Findings: no acute ischemic change, no ectopy ED Course 1853: The patient was evaluated in room B10. A complete history and physical exam was performed. 1918: Sodium Chloride 500 ml @ 999 mls/hr IV, Sodium Chloride 1000 ml @ 125 mls/ hr IV 2047: I reevaluated the patient, and he is resting comfortably. He prefers to go home. He is going to get something to eat. 2052: Insulin 10 units IV 2128: Upon reexamination, the patient was doing well. I discussed the test results and treatment plan with him. The patient will be evaluated for further management. 2131: Rocephin 1gm IV 2134: Discussed the patient's case with Dr. Maynard and Dr. Randolph SAMPSON Hospitalist. The patient will be evaluated for further treatment and disposition. Medical Decision Triage Nursing notes reviewed. The patient's presentation and history were concerning for abnormal labs, diabetes Etiologies such as metabolic, infection, hypo/hyperglycemia, electrolyte abnormalities, cardiac sources, intracerebral event, toxicologic, neurologic, as well as others were entertained. The patient was evaluated. Prior records reviewed from the office. His primary physician encouraged him to be admitted to the hospital for laboratory evaluation and blood sugar management. The patient was evaluated. Laboratory testing was performed. A catheter was changed and fresh sample sent to the lab. The patient appears to have a UTI. The patient was hydrated. His chemistry panel revealed significant hyperglycemia. No signs of DKA. The patient had some mild tachycardia. He was informed of the findings. Given his situation and recommendation by his PCP for the management in the hospital was felt to be appropriate. He was given a dose of IV Rocephin. Consultation was made with internal medicine. Patient was evaluated in the ER and admitted for further treatment. Medication Reconcilliation Current Medication List: was personally reviewed by me Blood Pressure Screening Patient's blood pressure: Elevated blood pressure Monitored by the hospitalist Consults Time Called: 2128 Consulting Physician: Dr. Maynard and Dr. Randolph SAMPSON Hospitalist Returned Call: 2134 Discussed the patient's case with Dr. Maynard and Dr. Randolph SAMPSON Hospitalist. The patient will be evaluated for further treatment and disposition. Impression Primary Impression: UTI (urinary tract infection) Additional Impressions: Hyperglycemia Anemia Scribe Attestation The scribe's documentation has been prepared under my direction and personally reviewed by me in its entirety. I confirm that the note above accurately reflects all work, treatment, procedures, and medical decision making performed by me. Departure Information Dispostion Being Evaluated By Hospitalist Referrals Barb Gray M.D. (PCP) Patient Instructions My [facility] Problem Qualifiers
--- NOTE | 2017-09-21 23:47 | History and Physical ---
History & Physical Date & Time of Service: Sep 21, 2017 at 23:46 Chief Complaint: Doctor Called And Told Him To Come Here Primary Care Physician: Barb Gray M.D. History of Present Illness Source: patient, hospital records 67 y/o M Hx DM, CHF, CAD, protein malnutrition and chronic LE ulcers, anemia, BPH with obstructive uropathy and an indwelling Miller, osteomyelitis affecting coccyx. Recent complex history as follows - admitted with DKA and UTI 12/20 - diagnosed with obstructive uropathy and required Miller placement - returned to hospital 02/19 and was diagnosed with urosepsis - evolved into septic shock leading to a NSTEMI and diagnosis of CHF. Has thus far refused a cardiac cath. Presented with weakness on 05/22 - diagnosed with MACY/dehydration and subsequently with a sacral abscess and osteomyelitis affecting the coccyx. Patient referred to ER by PCP today for abnormal findings on routine lab work, mainly elevated lab values (PCP feels represents hemoconcentration) and elevated blood glucose. Review of the patient's EMR shows that the patient's hemoglobin was 10.4 which is up from 8.8 in August. His blood glucose level was 436 without signs of DKA. Patient feels fine. He denies fevers/chills, headaches, CP, palpitations, dyspnea, abdominal pain, lower extremity swelling or rashes. He is tolerating diet without nausea or vomiting, ambulating without exacerbating symptoms, denies urinary symptoms since placement of Miller although he has had frequent UTIs, and stooling appropriately. In the ER, patient received IVF, IV insulin, was found to have UTI and given dose of ceftriaxone. ROS is unremarkable except as noted above. Past Medical/Surgical History 1) Urosepsis 02/19 - septic shock - MSSA 2) NSTEMI in context of septic shock - the pt had and echo 02/19 following troponin elevations which described mid basilar, inferior hypokinesis. He was advised on catheterization by cardiology but has refused thus far. 3) CHF was diagnosed 02/19 in context of septic shock - EF reported at 35-45% - he does not have a history of pulmonary edema. Reduced EF was confirmed on repeat echo in addition to grade 1 diastolic dysfunction 05/22 4) BPH - obstructive uropathy and MACY - a TURP is eventually planned 5) Protein and multivitamin malnutrition - cause may be a poor diet 6) IDDM - history of DKA 12/20 - generally poorly controlled 7) Chronic normocytic anemia 8) Abscess of elbow 12/20 - required I&D and 6 week course of Abx - MSSA 9) Chronic lower extremity ulcers 10) History of prostatitis 11) Pt is undergoing evaluation for underlying myeloproliferative illness due to anemia and chronic leukocytosis. 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 Smoking Status: Never Smoker Smokeless Tobacco Use: No Alcohol Use: none Marital Status: single Occupational Status: retired Immunizations History of Influenza Vaccine: Unknown History of Tetanus Vaccine?: Unknown History of Pneumococcal: Unknown History of Hepatitis B Vaccine: Unknown Allergies Coded Allergies: Polio Virus Vaccine Live Oral [place] (Verified Allergy, Unknown, Unknown, ) Home Medications Scheduled Aspirin (Aspirin Ec), 81 MG PO DAILY Aspirin (Aspirin Ec), 81 MG PO DAILY Atorvastatin (Lipitor), 40 MG PO DAILY Atorvastatin (Lipitor), 40 MG PO HS Cholecalciferol (Vitamin D), 1,000 UNITS PO DAILY Cholecalciferol (Vitamin D3), 1,000 UNITS PO DAILY Clopidogrel (Plavix), 75 MG PO DAILY Clopidogrel (Plavix), 75 MG PO DAILY Cyanocobalamin (Vitamin B12), 1,000 MCG PO DAILY Cyanocobalamin (Vitamin B-12), 1,000 MCG PO DAILY Folic Acid (Folvite), 1 MG PO DAILY Folic Acid (Folvite), 1 MG PO DAILY Insulin Glargine (Lantus Solostar), 44 UNITS SQ QPM Insulin Glargine (Lantus Solostar), 44 UNITS SQ QPM Lisinopril (Zestril), 2.5 MG PO DAILY Lisinopril (Zestril), 2.5 MG PO DAILY Magnesium Oxide (Mag-Ox), 400 MG PO BID Magnesium Oxide (Mag-Ox), 400 MG PO BID Methenamine Hippurate (Methenamine Hippurate), 1 GM PO BID Methenamine Hippurate (Methenamine Hippurate), 1 GM PO BID Metoprolol Tartrate (Lopressor), 25 MG PO BID Metoprolol Tartrate (Lopressor) (Lopressor), 25 MG PO BID Tamsulosin Hcl (Flomax), 0.4 MG PO HS Tamsulosin Hcl (Flomax), 0.4 MG PO HS [Boost], 1 CAN PO DAILY Scheduled PRN Polyethylene (Miralax), 17 GM PO DAILY PRN for Constipation Polyethylene Glycol 3350 (Miralax), 17 GM PO BID PRN for Constipation Senna (Senokot), 1 TAB PO DAILY PRN for Constipation Senna (Senokot), 8.6 MG PO DAILY PRN for Constipation Physical Exam Vital Signs Date Time Temp Pulse Resp B/P (MAP) Pulse Ox O2 Delivery O2 Flow Rate FiO2 09/21/17 23:15 95 18 128/71 99 Room Air 09/21/17 23:06 97 09/21/17 21:43 98 18 147/83 100 Room Air 09/21/17 19:39 99 Room Air 09/21/17 19:38 98 09/21/17 18:44 36.6 110 18 130/45 91 Room Air Diagnostics Laboratory Results Results Past 24 Hours Test 09/21/17 19:30 09/21/17 20:50 Range/Units White Blood Count 8.33 4.8-10.8 K/uL Red Blood Count 3.58 4.7-6.1 M/uL Hemoglobin 10.5 14.0-18.0 g/dL Hematocrit 32.6 42-52 % Mean Corpuscular Volume 91.1 80-100 fL Mean Corpuscular Hemoglobin 29.3 25-34 pg Mean Corpuscular Hemoglobin Concent 32.2 32-36 g/dl Platelet Count 294 130-400 K/uL Mean Platelet Volume 9.8 7.4-10.4 fL Neutrophils (%) (Auto) 67.0 % Lymphocytes (%) (Auto) 21.0 % Monocytes (%) (Auto) 6.8 % Eosinophils (%) (Auto) 3.7 % Basophils (%) (Auto) 0.2 % Neutrophils # (Auto) 5.57 1.4-6.5 K/uL Lymphocytes # (Auto) 1.75 1.2-3.4 K/uL Monocytes # (Auto) 0.57 0.11-0.59 K/uL Eosinophils # (Auto) 0.31 0-0.5 K/uL Basophils # (Auto) 0.02 0-0.2 K/uL RDW Standard Deviation 46.9 36.4-46.3 fL RDW Coefficient of Variation 14.2 11.5-14.5 % Immature Granulocyte % (Auto) 1.3 % Immature Granulocyte # (Auto) 0.11 0.00-0.02 K/uL Prothrombin Time 10.0 9.0-12.0 SECONDS Prothromb Time International Ratio 1.0 0.9-1.1 Activated Partial Thromboplast Time 23.6 21.0-31.0 SECONDS Partial Thromboplastin Ratio 0.9 Sodium Level 138 136-145 mmol/L Potassium Level 4.3 3.5-5.1 mmol/L Chloride Level 104 98-107 mmol/L Carbon Dioxide Level 26 21-32 mmol/L Anion Gap 8.0 3-11 mmol/L Blood Urea Nitrogen 37 7-18 mg/dl Creatinine 1.52 0.60-1.40 mg/dl Est Creatinine Clear Calc Drug Dose 46.7 ml/min Estimated GFR () 53.4 Estimated GFR (Non- 46.1 BUN/Creatinine Ratio 24.5 10-20 Random Glucose 359 70-99 mg/dl Calcium Level 8.4 8.5-10.1 mg/dl Magnesium Level 2.6 1.8-2.4 mg/dl Total Bilirubin 0.3 0.2-1 mg/dl Direct Bilirubin < 0.1 0-0.2 mg/dl Aspartate Amino Transf (AST/SGOT) 15 15-37 U/L Alanine Aminotransferase (ALT/SGPT) 30 12-78 U/L Alkaline Phosphatase 132 45-117 U/L Troponin I < 0.015 0-0.045 ng/ml Total Protein 7.7 6.4-8.2 gm/dl Albumin 3.1 3.4-5.0 gm/dl Lipase 215 73-393 U/L Beta-Hydroxybutyric Acid 1.17 0.2-2.81 mg/dL Thyroid Stimulating Hormone (TSH) 1.270 0.300-4.500 uIu/ml Urine Color YELLOW Urine Appearance CLOUDY CLEAR Urine pH 6.0 4.5-7.5 Urine Specific [place] 1.026 1.000-1.030 Urine Protein TRACE NEG Urine Glucose (UA) 3+ NEG Urine Ketones NEG NEG Urine Occult Blood 2+ NEG Urine Nitrite POS NEG Urine Bilirubin NEG NEG Urine Urobilinogen NEG NEG Urine Leukocyte Esterase MODERATE NEG Urine WBC (Auto) >30 0-5 /hpf Urine RBC (Auto) 10-30 0-4 /hpf Urine Hyaline Casts (Auto) 1-5 0-5 /lpf Urine Epithelial Cells (Auto) 5-10 0-5 /lpf Urine Bacteria (Auto) 2+ NEG Microbiology Results 09/21/17 Urine Culture, Received Pending Impression Assessment and Plan 67 y/o M Hx DM, CHF, CAD, protein malnutrition and chronic LE ulcers, anemia, BPH with obstructive uropathy and an indwelling Miller, osteomyelitis affecting coccyx. Patient referred to ER by PCP today for abnormal findings on routine lab work, mainly elevated lab values (PCP feels represents hemoconcentration) and elevated blood glucose. Review of the patient's EMR shows that the patient's hemoglobin was 10.4 which is up from 8.8 in August. His blood glucose level was 436 without signs of DKA. In the ER, patient received IVF, IV insulin, was found to have UTI and given dose of ceftriaxone. UTI/BPH - UA (clean catch with new Miller) shows cloudy urine, trace protein, glucose 3+ , blood 2+, nitrites, mod leuks, WBC, RBC, bacteria. - UCx pending - Given multi-resistant organisms in the past, started empiric ertapenem and vancomycin - IVF NSS @ 80cc/hr - Miller in situ - Continue tamsulosin - No evidence of MACY, trend BMP Uncontrolled DM - Generally poorly controlled with hyperglycemia on admission - Placed on Lantus and ISS with BSG ac/hs Anemia - Chronic issue. Some blood noted in urine - Continue to trend given possibly hemoconcentrated at current CAD/chronic systolic and diastolic CHF/HLD/HTN - no history of pulmonary edema and does not take diuretics - Continue aspirin, clopidogrel, atorvastatin, lisinopril, metoprolol, ?underlying dementia - Consider administering MOCA VTE ppx - SCDs Full code - Attending addendum: I have physically seen this patient, have supervised the medical residents activities, and agree with the H&P unless as otherwise noted. Assessment and Plan: Recurrent UTI/BPH with AVERY/history of ESBL UTI-- Empiric Vanco and Ertapenem IV IV fluids. Follow urine culture and sensitivity Consider increased tamsulosin from 0.4-0.8 mg at bedtime. Indwelling Miller catheter has been changed. Chronic kidney disease-- Routine laboratory follow-up. CAD/chronic systolic and diastolic CHF-- Continue aspirin, clopidogrel, metoprolol and lisinopril. Follow examination closely while hydrating. 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
[2017-09-22] MEDS ORDERED: ACETAMINOPHEN 325 MG TAB PO PRN (00:15)
[2017-09-22] MEDS ORDERED: POLYETHYLENE (MIRALAX) 17 GM PACK PO PRN (00:15)
[2017-09-22] MEDS ORDERED: MAGNESIUM HYDROXIDE SUSP 30 ML UDC PO PRN (00:15)
[2017-09-22] MEDS ORDERED: ONDANSETRON INJ 2 MG/ML 2 ML VIAL IV PRN (00:15)
[2017-09-22] MEDS ORDERED: ALUMINUM/MAGNESIUM/SIMETH (MAALOX MAX) 30 ML UDC PO PRN (00:15)
[2017-09-22] MEDS ORDERED: SENNA 8.6 MG TAB PO PRN (00:15)
[2017-09-22 01:20] VITALS: BP 119/64; PULSE 89; TEMP 36.7; O2SAT 96; BMI 21.7
[2017-09-22] MEDS ORDERED: SODIUM CHLORIDE 0.9% 1000ML 1,000 ML IV SCH (01:30)
[2017-09-22] MEDS ORDERED: VANCOMYCIN CONSULT ACTIVE PRN (01:45)
[2017-09-22] MEDS ORDERED: IV FLUIDS COMPLETED PRN (01:45)
[2017-09-22] MEDS ORDERED: VANCOMYCIN IV 1,750 MG in SODIUM CHLORIDE 0.9% 500ML 500 ML IV SCH (02:00)
[2017-09-22] MEDS ORDERED: ERTAPENEM IV 1 GM in SODIUM CHLOR 0.9% AD-VAN 50ML 50 ML IV SCH (02:00)
[2017-09-22] MEDS ORDERED: PNEUMOCOCCAL POLYSACCHARIDES 25 MCG/0.5 ML VIAL/SYR IM. ONE (05:00)
[2017-09-22] MEDS ORDERED: INFLUENZA VACCINE HIGH DOSE 65+ 0.5 ML SYR IM. ONE (05:00)
[2017-09-22] MEDS ORDERED: INFLUENZA ADMINISTRATION CHARGE ONE (05:00)
[2017-09-22] MEDS ORDERED: PNEUMOCOCCAL ADMINISTRATION CHARGE ONE (05:00)
[2017-09-22 06:27] LABS: BASO % 0.2 %; BASO ABS # 0.02 K/uL (0-0.2); EOS % 5.6 %; HEMATOCRIT 27.6 % (42-52); HEMOGLOBIN 8.9 g/dL (14.0-18.0); IG# 0.09 K/uL (0.00-0.02); MEAN CELL VOLUME 90.8 fL (80-100); MEAN CORPUSCULAR HEMOGLOBIN 29.3 pg (25-34); MEAN CORPUSCULAR HGB CONC 32.2 g/dl (32-36); MEAN PLATELET VOLUME 9.7 fL (7.4-10.4); MONO % 6.6 %; MONO ABS # 0.59 K/uL (0.11-0.59); NEUT % 67.6 %; NEUT ABS # 6.05 K/uL (1.4-6.5); PLATELET COUNT 256 K/uL (130-400); RED CELL DISTRIBUTION WIDTH CV 14.2 % (11.5-14.5); RED CELL DISTRIBUTION WIDTH SD 46.8 fL (36.4-46.3); WHITE BLOOD COUNT 8.95 K/uL (4.8-10.8)
[2017-09-22 06:55] LABS: ALBUMIN 2.5 gm/dl (3.4-5.0); CALCIUM 8.1 mg/dl (8.5-10.1); CREATININE 1.11 mg/dl (0.60-1.40); POTASSIUM 3.7 mmol/L (3.5-5.1)
[2017-09-22 07:02] LABS: TOTAL PROTEIN 6.1 gm/dl (6.4-8.2)
[2017-09-22 07:33] VITALS: BP 157/76; PULSE 96; TEMP 36.9; O2SAT 96
[2017-09-22] MEDS: MAGNESIUM OXIDE 400 MG TAB PO SCH ×2 (08:21→19:44)
[2017-09-22] MEDS: METOPROLOL TARTRATE 25 MG TAB PO SCH ×2 (08:22→19:44)
[2017-09-22] MEDS: CLOPIDOGREL BISULFATE 75 MG TAB PO SCH (08:23)
[2017-09-22] MEDS: CHOLECALCIFEROL 1000 INTER.UNIT TAB PO SCH (08:23)
[2017-09-22] MEDS: ASPIRIN 81 MG ECTAB PO SCH (08:23)
[2017-09-22] MEDS: CYANOCOBALAMIN 500 MCG TAB (VIT B-12) PO SCH (08:23)
[2017-09-22] MEDS: LISINOPRIL 2.5 MG TAB PO SCH (08:23)
[2017-09-22] MEDS: INSULIN ASPART 100 UNITS/ML 3 ML PEN SC SCH ×4 (08:34→21:07)
--- NOTE | 2017-09-22 08:40 | Pharmacy Progress Note ---
Pharmacy Abx Initial Consult Date of Service Sep 22, 2017. Pharmacy Dosing Scope Date of Consult: 09/22/17 Consultation requested by: Dr. Maynard Pharmacy is consulted to initiate Vancomycin IV dosing therapy, order appropriate labs and adjust drug dose/frequency. Pt also ordered Invanz (not per pharmacy consult). Subjective The patient is a 67 year old male admitted on Sep 22, 2017 at 00:10. Objective Height (Feet): 6 Height (Inches): 0.00 Weight (Kilograms): 72.700 Vital Signs (Past 12Hrs) Vital Signs Past 12 Hours Date Time Temp Pulse Resp B/P (MAP) Pulse Ox O2 Delivery O2 Flow Rate FiO2 09/22/17 07:33 36.9 96 20 157/76 (103) 96 Room Air 09/22/17 02:00 Room Air 09/22/17 01:20 36.7 89 16 119/64 96 Room Air 09/22/17 01:03 88 18 119/64 97 09/21/17 23:15 95 18 128/71 99 Room Air 09/21/17 23:06 97 09/21/17 21:43 98 18 147/83 100 Room Air Lab Results (24Hrs) Laboratory Tests (24 Hours) Test 09/22/17 06:07 White Blood Count 8.95 K/uL (4.8-10.8) Red Blood Count 3.04 M/uL (4.7-6.1) L Hemoglobin 8.9 g/dL (14.0-18.0) L Hematocrit 27.6 % (42-52) L Mean Corpuscular Volume 90.8 fL (80-100) Mean Corpuscular Hemoglobin 29.3 pg (25-34) Mean Corpuscular Hemoglobin Concent 32.2 g/dl (32-36) Platelet Count 256 K/uL (130-400) Mean Platelet Volume 9.7 fL (7.4-10.4) Neutrophils (%) (Auto) 67.6 % Lymphocytes (%) (Auto) 19.0 % Monocytes (%) (Auto) 6.6 % Eosinophils (%) (Auto) 5.6 % Basophils (%) (Auto) 0.2 % Neutrophils # (Auto) 6.05 K/uL (1.4-6.5) Lymphocytes # (Auto) 1.70 K/uL (1.2-3.4) Monocytes # (Auto) 0.59 K/uL (0.11-0.59) Eosinophils # (Auto) 0.50 K/uL (0-0.5) Basophils # (Auto) 0.02 K/uL (0-0.2) Micro Results Date/Time Source Procedure Growth Status 09/21/17 20:50 Urine,Catheterized Urine Culture Pending Received Risk Factors for Resistance * Hospitalization within the last 90 days * History of infection & Antimicrobial use: MSSA Septic Shock 02/2017 (Vanco & Zosyn), UTI 08/2017 (Zosyn), sacral wound (Zosyn), Fungal UTI, treated with caspofungin * Chronic indwelling Miller Assessment & Plan Assessment 67 year old male with suspected complicated UTI. Urine c/s pending. Recent UTI with Pseudomonas + E. Faecalis (08/18/17) * Current abx do not cover pseudomonas. May consider changing ertapenem to azactam vs zosyn. * Previous c/s show E. Faecalis sensitive to vancomycin. Plan Vancomycin for treatment of UTI- complicated Vancomycin IV * Loading dose: 1750 mg (24 mg/kg) * Maintenance dose: 1,000 mg IV (15 mg/kg) every 14 hours * Goal trough level for UTI : 10 to 20 mcg/mL depending on c/s results/MAYNOR * Trough level ordered for 09/24/17 @ 0930 (prior to 4th maintenance dose) * A less than traditional dosing interval has been selected due to likelihood of drug accumulation in patient with h/o CKD. Pharmacy will continue to follow and will adjust dose/frequency as necessary. Thank you.
[2017-09-22] MEDS ORDERED: VANCOMYCIN IV 1,000 MG in SODIUM CHLORIDE 0.9% 250ML 250 ML IV SCH (09:00)
--- NOTE | 2017-09-22 13:48 | Progress Note ---
Subjective Date of Service: Sep 22, 2017. Subjective Pt evaluation today including: conversation w/ patient, physical exam, lab review, review of inpatient medication list Pain: no pain PO Intake: adequate Voiding: hallman catheter in place patient feeling fine, no new issues, no pain, eating well, breathing stable reviewed labs, Cr down to 1.1 from 1.5, Hb down slightly to 8.9 but may have been dry sugars more adequately controlled cultures still pending reviewed prior records, grew Enterococcus and resistant Pseudomonas in the past also with history of Angelica UTI requiring Caspofungin Problem List Medical Problems: (1) Anemia Status: Acute (2) ARF (acute renal failure) Status: Acute (3) Complication of catheter Status: Acute (4) Complication of catheter Status: Acute (5) Complication of catheter Status: Acute (6) Complication of Hallman catheter Status: Acute (7) Dehydration Status: Acute (8) DKA (diabetic ketoacidoses) Status: Acute (9) Hallman catheter problem Status: Acute (10) Hallman catheter problem Status: Acute (11) Generalized weakness Status: Acute (12) Hematuria Status: Acute (13) Hydronephrosis due to obstruction of bladder Status: Acute (14) Hyperglycemia Status: Acute (15) Hyperglycemia Status: Acute (16) Malfunction of Hallman catheter Status: Acute (17) Malfunction of Hallman catheter Status: Acute (18) Malfunction of Hallman catheter Status: Acute (19) Urinary retention Status: Acute (20) Urinary tract infection Status: Acute (21) UTI (urinary tract infection) Status: Acute Review of Systems Constitutional: + weakness, + fatigue Neurologic: + weakness All Other Systems: Reviewed and Negative Medications Current Inpatient Medications Medications (Trade) Dose Ordered Sig/Nilda Route Start Time Stop Time Status Last Admin Dose Admin Acetaminophen (Tylenol Tab) 650 mg Q4H PRN PO 09/22/17 00:15 10/22/17 00:14 Al Hydrox/Mg Hydrox/Simethicone (Maalox Max Susp) 15 ml Q4H PRN PO 09/22/17 00:15 10/22/17 00:14 Magnesium Hydroxide (Milk Of Magnesia Susp) 30 ml Q6H PRN PO 09/22/17 00:15 10/22/17 00:14 Polyethylene (Miralax Powder Packet) 17 gm DAILY PRN PO 09/22/17 00:15 10/22/17 00:14 Ondansetron HCl (Zofran Inj) 4 mg Q6H PRN IV 09/22/17 00:15 10/22/17 00:14 Aspirin (Ecotrin Tab) 81 mg DAILY PO 09/22/17 08:00 10/22/17 08:59 09/22/17 08:23 81 MG Atorvastatin Calcium (Lipitor Tab) 40 mg HS PO 09/22/17 21:00 10/22/17 20:59 Cholecalciferol (Vitamin D Tab) 1,000 inter.unit DAILY PO 09/22/17 08:00 10/22/17 08:59 09/22/17 08:23 1,000 INTER.UNIT Clopidogrel Bisulfate (plAVix TAB) 75 mg DAILY PO 09/22/17 08:00 10/22/17 08:59 09/22/17 08:23 75 MG Cyanocobalamin (Vitamin B-12 Tab) 1,000 mcg DAILY PO 09/22/17 08:00 10/22/17 08:59 09/22/17 08:23 1,000 MCG Folic Acid (Folvite Tab) 1 mg DAILY PO 09/22/17 08:00 10/22/17 08:59 09/22/17 08:22 1 MG Insulin Glargine (Lantus Solostar Pen) 44 units QPM SQ 09/22/17 21:00 10/22/17 20:59 Lisinopril (Zestril Tab) 2.5 mg DAILY PO 09/22/17 08:00 10/22/17 08:59 09/22/17 08:23 2.5 MG Magnesium Oxide (Mag-Ox Tab) 400 mg BID PO 09/22/17 08:00 10/22/17 08:59 09/22/17 08:21 400 MG Metoprolol Tartrate (Lopressor Tab) 25 mg BID PO 09/22/17 08:00 10/22/17 08:59 09/22/17 08:22 25 MG Senna (Senokot Tab) 8.6 mg DAILY PRN PO 09/22/17 00:15 10/22/17 00:14 Tamsulosin HCl (Flomax Cap) 0.4 mg HS PO 09/22/17 21:00 10/22/17 20:59 Sodium Chloride 1,000 ml @ 80 mls/hr [id number] IV 09/22/17 01:30 09/22/17 13:59 09/22/17 02:06 80 MLS/HR Glucagon (Glucagon Inj) 1 mg UD PRN SQ 09/22/17 19:15 10/22/17 19:14 Glucose (Glucose 40% Gel) 15-30 GRAMS 15 GRAMS... UD PRN PO 09/22/17 19:15 10/22/17 19:14 Glucose (Glucose Chew Tab) 4-8 Tablets 4 Tabl... UD PRN PO 09/22/17 19:15 10/22/17 19:14 Insulin Aspart (novoLOG ASPART) SLIDING SCALE If C... ACHS SC 09/22/17 06:30 10/22/17 06:59 09/22/17 12:59 5 UNITS Miscellaneous (Iv Fluids Completed) 1 ea PRN PRN N/A 09/22/17 01:45 09/22/18 01:44 Miscellaneous Information (Consult) 1 ea UD PRN N/A 09/22/17 01:45 10/22/17 01:44 Vancomycin HCl 1000 mg/Sodium Chloride 270 ml @ 125 mls/hr Q14H IV 09/22/17 16:00 10/02/17 15:59 Aztreonam 1000 mg/ Dextrose 110 ml @ 110 mls/hr Q8H IV 09/22/17 14:00 10/02/17 13:59 Objective Vital Signs Date Time Temp Pulse Resp B/P (MAP) Pulse Ox O2 Delivery O2 Flow Rate FiO2 09/22/17 07:33 36.9 96 20 157/76 (103) 96 Room Air 09/22/17 02:00 Room Air 09/22/17 01:20 36.7 89 16 119/64 96 Room Air 09/22/17 01:03 88 18 119/64 97 09/21/17 23:15 95 18 128/71 99 Room Air 09/21/17 23:06 97 09/21/17 21:43 98 18 147/83 100 Room Air 09/21/17 19:39 99 Room Air 09/21/17 19:38 98 09/21/17 18:44 36.6 110 18 130/45 91 Room Air Physical Exam General Appearance: WD/WN, no apparent distress Eyes: normal inspection, EOMI, sclerae normal Neck: supple, no adenopathy, no JVD, trachea midline Respiratory/Chest: chest non-tender, lungs clear, normal breath sounds, no respiratory distress, no accessory muscle use Cardiovascular: regular rate, rhythm, no edema, no gallop, no JVD, no murmur Abdomen: normal bowel sounds, non tender, soft, no organomegaly Extremities: normal range of motion, non-tender, normal inspection, no pedal edema, no calf tenderness, pelvis stable 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, alert, normal mood/affect, oriented x 3, + motor weakness (generalized) Skin: normal color, warm/dry, no rash Laboratory Results Last 24 Hours Test 09/21/17 19:30 09/21/17 20:50 09/21/17 23:19 09/22/17 01:33 White Blood Count 8.33 K/uL Red Blood Count 3.58 M/uL Hemoglobin 10.5 g/dL Hematocrit 32.6 % Mean Corpuscular Volume 91.1 fL Mean Corpuscular Hemoglobin 29.3 pg Mean Corpuscular Hemoglobin Concent 32.2 g/dl Platelet Count 294 K/uL Mean Platelet Volume 9.8 fL Neutrophils (%) (Auto) 67.0 % Lymphocytes (%) (Auto) 21.0 % Monocytes (%) (Auto) 6.8 % Eosinophils (%) (Auto) 3.7 % Basophils (%) (Auto) 0.2 % Neutrophils # (Auto) 5.57 K/uL Lymphocytes # (Auto) 1.75 K/uL Monocytes # (Auto) 0.57 K/uL Eosinophils # (Auto) 0.31 K/uL Basophils # (Auto) 0.02 K/uL RDW Standard Deviation 46.9 fL RDW Coefficient of Variation 14.2 % Immature Granulocyte % (Auto) 1.3 % Immature Granulocyte # (Auto) 0.11 K/uL Prothrombin Time 10.0 SECONDS Prothromb Time International Ratio 1.0 Activated Partial Thromboplast Time 23.6 SECONDS Partial Thromboplastin Ratio 0.9 Sodium Level 138 mmol/L Potassium Level 4.3 mmol/L Chloride Level 104 mmol/L Carbon Dioxide Level 26 mmol/L Anion Gap 8.0 mmol/L Blood Urea Nitrogen 37 mg/dl Creatinine 1.52 mg/dl Est Creatinine Clear Calc Drug Dose 46.7 ml/min Estimated GFR () 53.4 Estimated GFR (Non- 46.1 BUN/Creatinine Ratio 24.5 Random Glucose 359 mg/dl Calcium Level 8.4 mg/dl Magnesium Level 2.6 mg/dl Total Bilirubin 0.3 mg/dl Direct Bilirubin < 0.1 mg/dl Aspartate Amino Transf (AST/SGOT) 15 U/L Alanine Aminotransferase (ALT/SGPT) 30 U/L Alkaline Phosphatase 132 U/L Troponin I < 0.015 ng/ml Total Protein 7.7 gm/dl Albumin 3.1 gm/dl Lipase 215 U/L Beta-Hydroxybutyric Acid 1.17 mg/dL Thyroid Stimulating Hormone (TSH) 1.270 uIu/ml Urine Color YELLOW Urine Appearance CLOUDY Urine pH 6.0 Urine Specific Buhl 1.026 Urine Protein TRACE Urine Glucose (UA) 3+ Urine Ketones NEG Urine Occult Blood 2+ Urine Nitrite POS Urine Bilirubin NEG Urine Urobilinogen NEG Urine Leukocyte Esterase MODERATE Urine WBC (Auto) >30 /hpf Urine RBC (Auto) 10-30 /hpf Urine Hyaline Casts (Auto) 1-5 /lpf Urine Epithelial Cells (Auto) 5-10 /lpf Urine Bacteria (Auto) 2+ Bedside Glucose 151 mg/dl 220 mg/dl Test 09/22/17 06:07 09/22/17 07:48 09/22/17 11:27 White Blood Count 8.95 K/uL Red Blood Count 3.04 M/uL Hemoglobin 8.9 g/dL Hematocrit 27.6 % Mean Corpuscular Volume 90.8 fL Mean Corpuscular Hemoglobin 29.3 pg Mean Corpuscular Hemoglobin Concent 32.2 g/dl Platelet Count 256 K/uL Mean Platelet Volume 9.7 fL Neutrophils (%) (Auto) 67.6 % Lymphocytes (%) (Auto) 19.0 % Monocytes (%) (Auto) 6.6 % Eosinophils (%) (Auto) 5.6 % Basophils (%) (Auto) 0.2 % Neutrophils # (Auto) 6.05 K/uL Lymphocytes # (Auto) 1.70 K/uL Monocytes # (Auto) 0.59 K/uL Eosinophils # (Auto) 0.50 K/uL Basophils # (Auto) 0.02 K/uL RDW Standard Deviation 46.8 fL RDW Coefficient of Variation 14.2 % Immature Granulocyte % (Auto) 1.0 % Immature Granulocyte # (Auto) 0.09 K/uL Poikilocytosis PRESENT Sodium Level 140 mmol/L Potassium Level 3.7 mmol/L Chloride Level 109 mmol/L Carbon Dioxide Level 23 mmol/L Anion Gap 8.0 mmol/L Blood Urea Nitrogen 33 mg/dl Creatinine 1.11 mg/dl Est Creatinine Clear Calc Drug Dose 64.6 ml/min Estimated GFR () 78.1 Estimated GFR (Non- 67.4 BUN/Creatinine Ratio 29.9 Random Glucose 260 mg/dl Calcium Level 8.1 mg/dl Total Bilirubin 0.3 mg/dl Aspartate Amino Transf (AST/SGOT) 12 U/L Alanine Aminotransferase (ALT/SGPT) 25 U/L Alkaline Phosphatase 105 U/L Total Protein 6.1 gm/dl Albumin 2.5 gm/dl Globulin 3.6 gm/dl Albumin/Globulin Ratio 0.7 Bedside Glucose 268 mg/dl 172 mg/dl Assessment and Plan 67 y/o M Hx DM, CHF, CAD, protein malnutrition and chronic LE ulcers, anemia, BPH with obstructive uropathy and an indwelling Hallman, osteomyelitis affecting coccyx. Patient referred to ER by PCP today for abnormal findings on routine lab work, mainly elevated lab values (PCP feels represents hemoconcentration) and elevated blood glucose. Review of the patient's EMR shows that the patient's hemoglobin was 10.4 which is up from 8.8 in August. His blood glucose level was 436 without signs of DKA. In the ER, patient received IVF, IV insulin, was found to have UTI and given dose of ceftriaxone. UTI/BPH - recurrent UTI, due to indwelling hallman catheter grew Pseudomonas and Enterococcus and Angelica in the past continue Vancomycin and Unasyn for now, follow up cultures afebrile, WBC normal, no signs of sepsis continue fluids needs to remain in hospital because infection may be difficult to treat, will need to coordinate appropriate IV antibiotics if necessary Uncontrolled DM likely due to non-compliance better controlled here on Lantus, Novolog, Diabetic diet Mild MACY Cr was 1.5 on admission, down to 1.1 continue fluids for today Anemia Hb down to 8.9 but that seems to be baseline, Hb of 10 may have been concentrated CAD/chronic systolic and diastolic CHF/HLD/HTN - no history of pulmonary edema and does not take diuretics - Continue aspirin, clopidogrel, atorvastatin, lisinopril, metoprolol, VTE ppx - SCDs Full code -
[2017-09-22] MEDS: AZTREONAM IV 1,000 MG in DEXTROSE 5% 100ML IV SCH ×2 (14:42→20:55)
[2017-09-22 15:45] VITALS: BP 125/72; PULSE 73; TEMP 36.7; O2SAT 98
[2017-09-22] MEDS: VANCOMYCIN IV 1,000 MG in SODIUM CHLORIDE 0.9% 250ML 250 ML IV SCH (16:36)
[2017-09-22] MEDS ORDERED: GLUCOSE 40% GEL 15 GM TUBE PO PRN (19:15)
[2017-09-22] MEDS ORDERED: GLUCOSE 10 TABS/TUBE PO PRN (19:15)
[2017-09-22] MEDS ORDERED: GLUCAGON FOR INJ 1 MG VIAL SQ PRN (19:15)
[2017-09-22] MEDS: TAMSULOSIN HCL 0.4 MG CAP PO SCH (19:44)
[2017-09-22] MEDS: ATORVASTATIN 20 MG TAB PO SCH (19:45)
[2017-09-22] MEDS: BOOST GLUCOSE CONTROL PO SCH (20:57)
[2017-09-22] MEDS: INSULIN GLARGINE SOLOSTAR 100 UNITS/ML 3 ML PEN SQ SCH (21:06)
[2017-09-22 23:17] VITALS: BP 104/50; PULSE 75; TEMP 36.9; O2SAT 97
[2017-09-23] MEDS: AZTREONAM IV 1,000 MG in DEXTROSE 5% 100ML IV SCH ×2 (05:55→14:33)
[2017-09-23] MEDS: VANCOMYCIN IV 1,000 MG in SODIUM CHLORIDE 0.9% 250ML 250 ML IV SCH (06:24)
[2017-09-23 07:31] VITALS: BP 128/68; PULSE 67; TEMP 36.6; O2SAT 97
[2017-09-23] MEDS: LISINOPRIL 2.5 MG TAB PO SCH (08:05)
[2017-09-23] MEDS: CLOPIDOGREL BISULFATE 75 MG TAB PO SCH (08:05)
[2017-09-23] MEDS: CHOLECALCIFEROL 1000 INTER.UNIT TAB PO SCH (08:05)
[2017-09-23] MEDS: MAGNESIUM OXIDE 400 MG TAB PO SCH ×2 (08:05→20:07)
[2017-09-23] MEDS: CYANOCOBALAMIN 500 MCG TAB (VIT B-12) PO SCH (08:05)
[2017-09-23] MEDS: METOPROLOL TARTRATE 25 MG TAB PO SCH ×2 (08:06→20:07)
[2017-09-23 08:21] LABS: CREATININE 0.94 mg/dl (0.60-1.40)
[2017-09-23] MEDS: ASPIRIN 81 MG ECTAB PO SCH (08:45)
[2017-09-23] MEDS: INSULIN ASPART 100 UNITS/ML 3 ML PEN SC SCH ×4 (08:48→21:06)
[2017-09-23 09:14] VITALS: Ht 182.9 cm; Wt 70.9 kg
[2017-09-23 15:09] VITALS: BP 144/70; PULSE 74; TEMP 36.8; O2SAT 97
--- NOTE | 2017-09-23 15:50 | Progress Note ---
Subjective Date of Service: Sep 23, 2017. Subjective Pt evaluation today including: conversation w/ patient, physical exam, lab review, review of inpatient medication list Pain: no pain PO Intake: adequate Voiding: hallman catheter in place patient doing well, ambulated with therapy he cannot go home today due to weather discussed case with ID, urine culture with three organisms, with hallman will always have bacteria no fever, normal WBC, elect to not treat discussed glucose management, he says he could give Novolog if it was strictly dosed Problem List Medical Problems: (1) Anemia Status: Acute (2) ARF (acute renal failure) Status: Acute (3) Complication of catheter Status: Acute (4) Complication of catheter Status: Acute (5) Complication of catheter Status: Acute (6) Complication of Ahllman catheter Status: Acute (7) Dehydration Status: Acute (8) DKA (diabetic ketoacidoses) Status: Acute (9) Hallman catheter problem Status: Acute (10) Hallman catheter problem Status: Acute (11) Generalized weakness Status: Acute (12) Hematuria Status: Acute (13) Hydronephrosis due to obstruction of bladder Status: Acute (14) Hyperglycemia Status: Acute (15) Hyperglycemia Status: Acute (16) Malfunction of Hallman catheter Status: Acute (17) Malfunction of Hallman catheter Status: Acute (18) Malfunction of Hallman catheter Status: Acute (19) Urinary retention Status: Acute (20) Urinary tract infection Status: Acute (21) UTI (urinary tract infection) Status: Acute Review of Systems All Other Systems: Reviewed and Negative Medications Current Inpatient Medications Medications (Trade) Dose Ordered Sig/Nilda Route Start Time Stop Time Status Last Admin Dose Admin Acetaminophen (Tylenol Tab) 650 mg Q4H PRN PO 09/22/17 00:15 10/22/17 00:14 Al Hydrox/Mg Hydrox/Simethicone (Maalox Max Susp) 15 ml Q4H PRN PO 09/22/17 00:15 10/22/17 00:14 Magnesium Hydroxide (Milk Of Magnesia Susp) 30 ml Q6H PRN PO 09/22/17 00:15 10/22/17 00:14 Polyethylene (Miralax Powder Packet) 17 gm DAILY PRN PO 09/22/17 00:15 10/22/17 00:14 Ondansetron HCl (Zofran Inj) 4 mg Q6H PRN IV 09/22/17 00:15 10/22/17 00:14 Aspirin (Ecotrin Tab) 81 mg DAILY PO 09/22/17 08:00 10/22/17 08:59 09/23/17 08:45 81 MG Atorvastatin Calcium (Lipitor Tab) 40 mg HS PO 09/22/17 21:00 10/22/17 20:59 09/22/17 19:45 40 MG Cholecalciferol (Vitamin D Tab) 1,000 inter.unit DAILY PO 09/22/17 08:00 10/22/17 08:59 09/23/17 08:05 1,000 INTER.UNIT Clopidogrel Bisulfate (plAVix TAB) 75 mg DAILY PO 09/22/17 08:00 10/22/17 08:59 09/23/17 08:05 75 MG Cyanocobalamin (Vitamin B-12 Tab) 1,000 mcg DAILY PO 09/22/17 08:00 10/22/17 08:59 09/23/17 08:05 1,000 MCG Folic Acid (Folvite Tab) 1 mg DAILY PO 09/22/17 08:00 10/22/17 08:59 09/23/17 08:06 1 MG Insulin Glargine (Lantus Solostar Pen) 44 units QPM SQ 09/22/17 21:00 10/22/17 20:59 09/22/17 21:06 44 UNITS Lisinopril (Zestril Tab) 2.5 mg DAILY PO 09/22/17 08:00 10/22/17 08:59 09/23/17 08:05 2.5 MG Magnesium Oxide (Mag-Ox Tab) 400 mg BID PO 09/22/17 08:00 10/22/17 08:59 09/23/17 08:05 400 MG Metoprolol Tartrate (Lopressor Tab) 25 mg BID PO 09/22/17 08:00 10/22/17 08:59 09/23/17 08:06 25 MG Senna (Senokot Tab) 8.6 mg DAILY PRN PO 09/22/17 00:15 10/22/17 00:14 Tamsulosin HCl (Flomax Cap) 0.4 mg HS PO 09/22/17 21:00 10/22/17 20:59 09/22/17 19:44 0.4 MG Glucagon (Glucagon Inj) 1 mg UD PRN SQ 09/22/17 19:15 10/22/17 19:14 Glucose (Glucose 40% Gel) 15-30 GRAMS 15 GRAMS... UD PRN PO 09/22/17 19:15 10/22/17 19:14 Glucose (Glucose Chew Tab) 4-8 Tablets 4 Tabl... UD PRN PO 09/22/17 19:15 10/22/17 19:14 Insulin Aspart (novoLOG ASPART) SLIDING SCALE If C... ACHS SC 09/22/17 06:30 10/22/17 06:59 09/23/17 12:28 9 UNITS Miscellaneous (Iv Fluids Completed) 1 ea PRN PRN N/A 09/22/17 01:45 09/22/18 01:44 Miscellaneous Information (Consult) 1 ea UD PRN N/A 09/22/17 01:45 10/22/17 01:44 Vancomycin HCl 1000 mg/Sodium Chloride 270 ml @ 125 mls/hr Q14H IV 09/22/17 16:00 10/02/17 15:59 09/23/17 06:24 125 MLS/HR Aztreonam 1000 mg/ Dextrose 110 ml @ 110 mls/hr Q8H IV 09/22/17 14:00 10/02/17 13:59 09/23/17 14:33 110 MLS/HR Enteral Nutritional Formula (Boost Glucose Control) 1 can HS PO 09/22/17 22:00 10/22/17 21:59 Objective Vital Signs Date Time Temp Pulse Resp B/P (MAP) Pulse Ox O2 Delivery O2 Flow Rate FiO2 09/23/17 15:09 36.8 74 18 144/70 (94) 97 Room Air 09/23/17 08:30 Room Air 09/23/17 07:31 36.6 67 18 128/68 (88) 97 Room Air 09/23/17 00:00 Room Air 09/22/17 23:17 36.9 75 18 104/50 (68) 97 Room Air 09/22/17 16:00 Room Air 09/22/17 15:45 36.7 73 18 125/72 (89) 98 Room Air Physical Exam General Appearance: WD/WN, no apparent distress Eyes: normal inspection, EOMI, sclerae normal ENT: normal ENT inspection, hearing grossly normal, pharynx normal Neck: supple, no adenopathy, no JVD, trachea midline Respiratory/Chest: chest non-tender, lungs clear, normal breath sounds, no respiratory distress, no accessory muscle use Cardiovascular: regular rate, rhythm, no edema, no gallop, no JVD, no murmur Abdomen: normal bowel sounds, non tender, soft, no organomegaly Extremities: normal range of motion, non-tender, normal inspection, no pedal edema, no calf tenderness, pelvis stable 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 Patient referred to ER by PCP today for abnormal findings on routine lab work, mainly elevated lab values (PCP feels represents hemoconcentration) and elevated blood glucose. Review of the patient's EMR shows that the patient's hemoglobin was 10.4 which is up from 8.8 in August. His blood glucose level was 436 without signs of DKA. In the ER, patient received IVF, IV insulin, was found to have UTI and given dose of ceftriaxone. UTI/BPH - recurrent UTI, due to indwelling hallman catheter grew Pseudomonas and Enterococcus and Angelica in the past urine culture with three organisms, all high counts afebrile, WBC normal, no signs of sepsis d/w ID, will stop antibiotics and observe plan to d/c tomorrow Uncontrolled DM likely due to non-compliance better controlled here on Lantus, Novolog, Diabetic diet patient interested in taking Novolog with meals at home, will talk with pharmacy about a dose Mild MACY Cr was 1.5 on admission, down to 1.1 eating and drinking well, no further fluids Anemia Hb down to 8.9 but that seems to be baseline, Hb of 10 may have been concentrated CAD/chronic systolic and diastolic CHF/HLD/HTN - no history of pulmonary edema and does not take diuretics - Continue aspirin, clopidogrel, atorvastatin, lisinopril, metoprolol, VTE ppx - SCDs Full code - d/c tomorrow
[2017-09-23] MEDS: BOOST GLUCOSE CONTROL PO SCH (20:05)
[2017-09-23] MEDS: TAMSULOSIN HCL 0.4 MG CAP PO SCH (20:07)
[2017-09-23] MEDS: ATORVASTATIN 20 MG TAB PO SCH (20:08)
[2017-09-23] MEDS: INSULIN GLARGINE SOLOSTAR 100 UNITS/ML 3 ML PEN SQ SCH (21:04)
[2017-09-23 23:32] VITALS: BP 121/63; PULSE 85; TEMP 37.1; O2SAT 96
[2017-09-24 07:24] LABS: CREATININE 0.95 mg/dl (0.60-1.40)
[2017-09-24 07:53] VITALS: BP 113/66; PULSE 76; TEMP 36.9; O2SAT 97
[2017-09-24] MEDS: CHOLECALCIFEROL 1000 INTER.UNIT TAB PO SCH (07:59)
[2017-09-24] MEDS: MAGNESIUM OXIDE 400 MG TAB PO SCH (07:59)
[2017-09-24] MEDS: CLOPIDOGREL BISULFATE 75 MG TAB PO SCH (07:59)
[2017-09-24] MEDS: ASPIRIN 81 MG ECTAB PO SCH (07:59)
[2017-09-24] MEDS: LISINOPRIL 2.5 MG TAB PO SCH (07:59)
[2017-09-24] MEDS: CYANOCOBALAMIN 500 MCG TAB (VIT B-12) PO SCH (07:59)
[2017-09-24] MEDS: METOPROLOL TARTRATE 25 MG TAB PO SCH (07:59)
[2017-09-24] MEDS: INSULIN ASPART 100 UNITS/ML 3 ML PEN SC SCH ×2 (08:31→12:25)
[2017-09-24] MEDS ORDERED: VANCOMYCIN TROUGH ONE (09:30)
[2017-09-24] MEDS ORDERED: NVLGIPEN SC (11:56)
--- NOTE | 2017-09-24 12:02 | Discharge Instructions ---
Discharge Instructions Date of Service Sep 24, 2017. 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 Instructions / Follow-Up Instructions / Follow-Up Medications: - LANTUS: please continue to use 44 units in the evening - HUMALOG KWIKPEN: use 5 units with meals, do not take if you do not take a meal Possible UTI: urine culture grew three organisms, all were high counts, however , you never had a fever, normal WBC, no clinical signs of infection blood cultures negative discussed with infectious disease, will observe off antibiotics, expected to have colonization with chronic hallman hallman catheter was changed this admission Hyperglycemia continue Lantus, will add meal time Humalog to help keep sugars better controlled you need to continue to follow a low carbohydrate diet discussed that you eat sandwiches, try to take off one of the slices of bread , avoid sweets, avoid pastas FOLLOW UP - call for appointment with Dr. Gray in one week, request hospital follow up Current Hospital Diet Patient's current hospital diet: Diabetes Type 2 Diet Discharge Diet Recommended Diet: Diabetes Type 2 Diet Pending Studies Studies pending at discharge: no Laboratory Results Hemoglobin A1c Test 09/21/17 13:46 Range/Units Estimated Average Glucose 226 mg/dl Hemoglobin A1c 9.5 H 4.5-5.6 % Medical Emergencies . Who to Call and When: Medical Emergencies: If at any time you feel your situation is an emergency, please call 911 immediately. . Non-Emergent Contact Non-Emergency issues call your: Primary Care Provider Call Non-Emergent contact if: you have any medication questions . . "Provider Documentation" section prepared by José Barlow. . [place] Drug Monitoring Program Search Results: no issues identified
[2017-09-24 12:11] VITALS: BP 113/66; PULSE 76; TEMP 36.9; O2SAT 97
[2017-09-24] MEDS ORDERED: INSU100I2 SC (12:34)
--- NOTE | 2017-09-27 07:24 | Discharge Summary ---
Discharge Summary Date of Service Sep 24, 2017. Discharge Summary Admission Date: Sep 22, 2017 at 00:10 Discharge Date: Sep 24, 2017 Discharge Disposition: Home Principal Diagnosis: Hyperglycemia Problems/Secondary Diagnoses: Dehydration DM type II Chronic hallman catheter with colonization h/o Pseudomonas, Enterobacter and Candidiasis UTI Mild MACY BPH Chronic anemia Immunizations: Have You Had Influenza Vaccine: Unknown History of Tetanus Vaccine?: Unknown History of Pneumococcal: Unknown History of Hepatitis B Vaccine: Unknown Procedures: none Consultations: none Medication Reconciliation New Medications: Insulin Lispro (Human) (Humalog Kwikpen) 100 Unit/Ml Inj 5 UNITS SC TIDM for 30 Days, #1 BOX 3 Refills Continued Medications: Aspirin (Aspirin Ec) 81 Mg Tab 81 MG PO DAILY Atorvastatin (Lipitor) 40 Mg Tab 40 MG PO HS, TAB Cholecalciferol (Vitamin D3) 1,000 Unit Tab 1000 UNITS PO DAILY Clopidogrel (Plavix) 75 Mg Tab 75 MG PO DAILY, TAB Cyanocobalamin (Vitamin B-12) 1,000 Mcg Tab 1000 MCG PO DAILY, TAB Folic Acid (Folvite) 1 Mg Tab 1 MG PO DAILY, TAB Insulin Glargine (Lantus Solostar) 100 Unit/Ml Inj 44 UNITS SQ QPM, PEN Lisinopril (Zestril) 2.5 Mg Tab 2.5 MG PO DAILY Magnesium Oxide (Mag-Ox) 400 Mg Tab 400 MG PO BID, TAB Methenamine Hippurate (Methenamine Hippurate) 1 Gm Tab 1 GM PO BID Metoprolol Tartrate (Lopressor) (Lopressor) 25 Mg Tab 25 MG PO BID, TAB Polyethylene (Miralax) 17 Gm Pow 17 GM PO DAILY PRN for Constipation for 30 Days, #30 DOSE Senna (Senokot) 8.6 Mg Tab 8.6 MG PO DAILY PRN for Constipation, TAB Tamsulosin Hcl (Flomax) 0.4 Mg Cap 0.4 MG PO HS, CAP [Boost] () 1 CAN LIQD 1 CAN PO DAILY for 30 Days, #30 DOSE Discontinued Medications: Aspirin (Aspirin Ec) 81 Mg Tab 81 MG PO DAILY Atorvastatin (Lipitor) 40 Mg Tab 40 MG PO DAILY, TAB Cholecalciferol (Vitamin D) 1,000 Unit Tab 1000 UNITS PO DAILY Clopidogrel (Plavix) 75 Mg Tab 75 MG PO DAILY, TAB Cyanocobalamin (Vitamin B12) 1,000 Mcg Tab 1000 MCG PO DAILY Folic Acid (Folvite) 1 Mg Tab 1 MG PO DAILY, TAB Insulin Glargine (Lantus Solostar) 100 Unit/Ml Inj 44 UNITS SQ QPM, PEN Lisinopril (Zestril) 2.5 Mg Tab 2.5 MG PO DAILY Magnesium Oxide (Mag-Ox) 400 Mg Tab 400 MG PO BID, TAB Methenamine Hippurate (Methenamine Hippurate) 1 Gm Tab 1 GM PO BID Metoprolol Tartrate (Lopressor) 25 Mg Tab 25 MG PO BID, TAB Polyethylene Glycol 3350 (Miralax) 1 Pow Pow 17 GM PO BID PRN for Constipation Senna (Senokot) 8.6 Mg Tab 1 TAB PO DAILY PRN for Constipation Tamsulosin Hcl (Flomax) 0.4 Mg Cap 0.4 MG PO HS, CAP Discharge Exam Patient feeling well, no new issues. Discussed plan for Humalog with meals. He said that he typically does not eat breakfast, told him to skip Humalog with breakfast then. Told him that we would not treat the urine culture since he was likely colonized. Never had an immune response to the bacteria (afebrile, normal WBC). Review of Systems: Constitutional: No fever, No chills, No sweats, No weight loss, No weakness , No fatigue, No problem reported Eyes: No worsening of vision, No eye pain, No redness, No discharge, No diplopia, No problem reported Respiratory: No cough, No sputum, No wheezing, No shortness of breath, No dyspnea on exertion, No dyspnea at rest, No hemoptysis, No problem reported Cardiovascular: No chest pain, No orthopnea, No PND, No edema, No claudication, No palpitations, No problem reported Abdomen: No pain, No nausea, No vomiting, No diarrhea, No constipation, No GI bleeding, No problem reported Musculoskeletal: No joint pain, No muscle pain, No swelling, No calf pain, No problem reported Genitourinary - Male: + problem reported (chronic hallman) Neurologic: No memory loss, No paralysis, No weakness, No numbness/tingling , No vertigo, No balance problems, No problem reported Psychiatric: No depression symptoms, No anhedonism, No anxiety, No insomnia , No substance abuse, No problem reported Endocrine: No fatigue, No excessive thirst, No excessive urination, No problem reported Hematologic / Lymphatic: No abnormal bleeding/bruising, No clotting problems , No swollen lymph nodes, No night sweats, No problem reported Integumentary: No rash, No itch, No new/changing skin lesions, No color change, No bleeding, No problem reported Physical Exam: General Appearance: WD/WN, no apparent distress Eyes: normal inspection, EOMI, sclerae normal ENT: normal ENT inspection, hearing grossly normal, pharynx normal Neck: supple, no adenopathy, no JVD, trachea midline Respiratory/Chest: chest non-tender, lungs clear, normal breath sounds, no respiratory distress, no accessory muscle use Cardiovascular: regular rate, rhythm, no edema, no gallop, no JVD, no murmur , normal peripheral pulses Abdomen / GI: normal bowel sounds, non tender, soft, no organomegaly Extremities: normal inspection, no calf tenderness, normal capillary refill , no pedal edema, normal range of motion, pelvis stable 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 Patient referred to ER by PCP today for abnormal findings on routine lab work, mainly elevated lab values (PCP feels represents hemoconcentration) and elevated blood glucose. Review of the patient's EMR shows that the patient's hemoglobin was 10.4 which is up from 8.8 in August. His blood glucose level was 436 without signs of DKA. In the ER, patient received IVF, IV insulin, was found to have UTI and given dose of ceftriaxone. Possible UTI, chronic indwelling hallman - recurrent UTI, due to indwelling hallman catheter grew Pseudomonas and Enterococcus and Angelica in the past urine culture with three organisms, all high counts afebrile, WBC normal, no signs of sepsis entire admission d/w ID, will stop antibiotics and observe hallman was exchanged during this admission no plans for antibiotics on discharge, can follow up with PCP Uncontrolled DM likely due to non-compliance better controlled here on Lantus, Novolog, Diabetic diet patient interested in taking Novolog with meals at home, will talk with pharmacy about a dose will d/c on Humalog 5 units with meals Mild MACY Cr was 1.5 on admission, down to 1.1 eating and drinking well, no further fluids Anemia, chronic Hb down to 8.9 but that seems to be baseline, Hb of 10 may have been concentrated CAD/chronic systolic and diastolic CHF/HLD/HTN - no history of pulmonary edema and does not take diuretics - Continue aspirin, clopidogrel, atorvastatin, lisinopril, metoprolol, VTE ppx - SCDs Full code - d/c to home Total Time Spent: Greater than 30 minutes This includes examination of the patient, discharge planning, medication reconciliation, and communication with other providers. Discharge Instructions Please refer to the electronic Patient Visit Report (Discharge Instructions) for additional information. Follow-Up Dr. Gray in one week Additional Copies To Barb Gray M.D.
--- NOTE | 2017-09-28 07:41 | Wound Consultation: Inpatient ---
Wound Consultation Date of Consultation: Sep 24, 2017. Attending Physician: José Barlow D.O. Reason for Consultation: Patient was discharged prior to evaluation for a stage III pressure ulcer to the left heel. We will attempt to follow-up in the outpatient setting. Family History No pertinent family history Social History Smoking Status: Former Smoker Smokeless Tobacco Use: No Alcohol Use: none Marital Status: single Occupation Status: retired Allergies Coded Allergies: Polio Virus Vaccine Live Oral Triva (Verified Allergy, Unknown, Unknown, ) Home Medications Scheduled Aspirin (Aspirin Ec), 81 MG PO DAILY Atorvastatin (Lipitor), 40 MG PO HS Cholecalciferol (Vitamin D3), 1,000 UNITS PO DAILY Clopidogrel (Plavix), 75 MG PO DAILY Cyanocobalamin (Vitamin B-12), 1,000 MCG PO DAILY Folic Acid (Folvite), 1 MG PO DAILY Insulin Glargine (Lantus Solostar), 44 UNITS SQ QPM Insulin Lispro (Human) (Humalog Kwikpen), 5 UNITS SC TIDM Lisinopril (Zestril), 2.5 MG PO DAILY Magnesium Oxide (Mag-Ox), 400 MG PO BID Methenamine Hippurate (Methenamine Hippurate), 1 GM PO BID Metoprolol Tartrate (Lopressor) (Lopressor), 25 MG PO BID Tamsulosin Hcl (Flomax), 0.4 MG PO HS [Boost], 1 CAN PO DAILY Scheduled PRN Polyethylene (Miralax), 17 GM PO DAILY PRN for Constipation Senna (Senokot), 8.6 MG PO DAILY PRN for Constipation
== END 2017-09-24 13:25 | disposition home health service (06) ==
LOC: C.EDB 18:36 → C.MS4W 09-22 00:10 → MERGE 09-22 00:10 → ENRESERV 09-22 00:48 → C.MS4W 09-22 10:21
PROVIDERS: ADMIT Student in an Organized Health Care Education/Training Program; ATTEND Internal Medicine
DX: E11.65 Type 2 diabetes mellitus with hyperglycemia (principal); E86.0 Dehydration; Z96.0 Presence of urogenital implants; Z87.440 Personal history of urinary (tract) infections; N17.9 Acute kidney failure, unspecified; N40.0 Benign prostatic hyperplasia without lower urinary tract symptoms; D64.9 Anemia, unspecified; I50.9 Heart failure, unspecified; E46 Unspecified protein-calorie malnutrition; L89.623 Pressure ulcer of left heel, stage 3; Z79.4 Long term (current) use of insulin; Z79.899 Other long term (current) drug therapy; Z88.7 Allergy status to serum and vaccine

== ENCOUNTER → 2017-09-21 | Outpatient (CLI) | payer BC ==
[~2017-09-21] MED LIST changes: +CHOL1000 PO; +CYAN10005 PO; +INSU100I2 SC; +METO25TA56 PO; +NVLGIPEN SC; +POLY335019 PO
[2017-09-21 14:37] LABS: HEMATOCRIT 32.3 % (42-52); HEMOGLOBIN 10.4 g/dL (14.0-18.0); MEAN CORPUSCULAR HEMOGLOBIN 29.6 pg (25-34); MEAN CORPUSCULAR HGB CONC 32.2 g/dl (32-36); PLATELET COUNT 303 K/uL (130-400); RED CELL DISTRIBUTION WIDTH CV 14.3 % (11.5-14.5); WHITE BLOOD COUNT 9.37 K/uL (4.8-10.8)
[2017-09-21 15:20] LABS: ALBUMIN 3.1 gm/dl (3.4-5.0); ALKALINE PHOSPHATASE 131 U/L (45-117); ALT/SGPT 33 U/L (12-78); AST/SGOT 18 U/L (15-37); BLOOD UREA NITROGEN 33 mg/dl (7-18); CALCIUM 8.7 mg/dl (8.5-10.1); CARBON DIOXIDE 27 mmol/L (21-32); CREATININE 1.26 mg/dl (0.60-1.40); GLUCOSE 436 mg/dl (70-99); LDL CHOLESTEROL (DIRECT) 60 mg/dl; POTASSIUM 3.9 mmol/L (3.5-5.1); SODIUM 135 mmol/L (136-145); TOTAL PROTEIN 7.6 gm/dl (6.4-8.2)
[2017-09-22 07:29] LABS: HEMOGLOBIN A1C 9.5 % (4.5-5.6)
== END | disposition home or self-care (01) ==
LOC: C.LAB1850 13:39
PROVIDERS: ATTEND Internal Medicine
DX: E11.9 Type 2 diabetes mellitus without complications (principal); Z13.220 Encounter for screening for lipoid disorders; E87.6 Hypokalemia; E83.42 Hypomagnesemia

== ENCOUNTER 2017-10-25 14:26 | Emergency (ER) | payer BC ==
[~2017-10-25] VITALS: Ht 182.9 cm; Wt 80.0 kg
[~2017-10-25 14:26] MED LIST changes: +CHOL1000 PO; -CHOL100010 PO; -CYAN100020 PO; +CYAN10005 PO; +INSU100I2 SC; -LPR25 PO; +METO25TA56 PO; +SULF800T23 PO
[2017-10-25 14:31] VITALS: Ht 182.9 cm; Wt 80.0 kg
--- NOTE | 2017-10-25 14:53 | EMERGENCY ROOM VISIT NOTE ---
History Report prepared by Destiny: Zena Rushing Under the Supervision of: Dr. Keenan Penn M.D. First contact with patient: 14:35 Chief Complaint: CATHETER REPLACEMENT Stated Complaint: CATH PROBLEMS History of Present Illness The patient is a 67 year old white male with a past medical history of recurrent UTIs and sepsis, HTN, DM who presents to the ED with a cc of intermittent catheter leaking beginning this morning. Negative fevers, chills, nausea, or vomiting. 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 He notes the urine is leaking and not staying in the bag. Source of History: patient Onset: this morning Position: other (Miller Catheter) Associated Symptoms: No fevers, No chills, No nausea, No vomiting Review of Systems See HPI for pertinent positives and negatives. A total of six systems were reviewed and were otherwise negative. Past Medical & Surgical Medical Problems: (1) Abscess (2) Acute blood loss anemia (3) Acute renal insufficiency (4) ATN (acute tubular necrosis) (5) Diabetes (6) DM II (diabetes mellitus, type II), controlled (7) Fungal infection (8) hematuria, osteomyelitis, (9) HTN (hypertension) (10) Hydronephrosis (11) Hypertension (12) Hypertension (13) Leukocytosis (14) MSSA (methicillin susceptible Staphylococcus aureus) septicemia (15) Needs peripherally inserted central catheter (PICC) (16) PICC (peripherally inserted central catheter) in place (17) Recurrent UTI (18) Recurrent UTI (19) Sepsis (20) Urinary tract infection Family History No pertinent family history Social History Smoking Status: Never Smoker Alcohol Use: none Drug Use: none Marital Status: single Housing Status: lives alone Occupation Status: retired Current/Historical Medications Scheduled Aspirin (Aspirin Ec), 81 MG PO DAILY Atorvastatin (Lipitor), 40 MG PO HS Cholecalciferol (Vitamin D3), 1,000 UNITS PO DAILY Clopidogrel (Plavix), 75 MG PO DAILY Cyanocobalamin (Vitamin B-12), 1,000 MCG PO DAILY Folic Acid (Folvite), 1 MG PO DAILY Insulin Glargine (Lantus Solostar), 44 UNITS SQ QPM Insulin Lispro (Human) (Humalog Kwikpen), 5 UNITS SC TIDM Lisinopril (Zestril), 2.5 MG PO DAILY Magnesium Oxide (Mag-Ox), 400 MG PO BID Methenamine Hippurate (Methenamine Hippurate), 1 GM PO BID Metoprolol Tartrate (Lopressor) (Lopressor), 25 MG PO BID Sulfa/Trimethoprim (Bactrim Ds 800MG/160MG), 1 TAB PO BID Tamsulosin Hcl (Flomax), 0.4 MG PO HS [Boost], 1 CAN PO DAILY Scheduled PRN Polyethylene (Miralax), 17 GM PO DAILY PRN for Constipation Senna (Senokot), 8.6 MG PO DAILY PRN for Constipation Allergies Coded Allergies: Polio Virus Vaccine Live Oral Triva (Verified Allergy, Unknown, Unknown, ) Physical Exam Vital Signs Date Time Temp Pulse Resp B/P (MAP) Pulse Ox O2 Delivery O2 Flow Rate FiO2 10/25/17 16:31 86 21 143/78 95 Room Air 10/25/17 14:31 36.7 93 20 122/68 97 Room Air Physical Exam GENERAL: Awake, alert, well-appearing, NAD HENT: Normocephalic, atraumatic. EYES: Normal conjunctiva. Sclera non-icteric. NECK: Supple. No nuchal rigidity. FROM. RESPIRATORY: CTAB, no rhonchi, wheezing, crackles CARDIAC: RRR, no MRG ABDOMEN: Soft, NTND, BS+ MSK: No chest wall TTP, no LE edema NEURO: GCS 15, CN 2-12 intact, moves all 4s on command : Circumcised catheter in place. No active leaking or fracture identified. Straw colored urine in Miller bag. SKIN: No rash or jaundice noted. Medical Decision & Procedures ED Course 1446: The patient was evaluated in room A10. A complete history and physical exam was performed. 1623: I reevaluated the patient. Discussed results and discharge instructions: He verbalized understanding and agreement. The patient is ready for discharge. Medical Decision The patient is a 67 year old white male with a past medical history of recurrent UTIs and sepsis, DM, HTN who presents to the ED with a cc of intermittent catheter leaking beginning this morning. Negative fevers, chills, nausea, or vomiting. Nursing notes reviewed. Ancillary studies and prior records reviewed. Differential diagnosis: Etiologies such as catheter problem, catheter fracture, catheter obstruction, as well as other traumatic pathologies were entertained. Patient was seen and evaluated at the bedside. Patient noted that he had some leaking from his catheter. Patient states that there was good flow of urine from the catheter. Patient denies any recent tightness falls or trauma. Patient is currently being treated for recurrent urinary tract infections. She denies any nausea, vomiting, fevers, chills, or abdominal discomfort. Based on the patient's exam I do not believe he requires any blood work or imaging at this time. I did discuss with the nurse to see if he may have a type of catheter fracture or Luer-Mariah problem. The Miller bag was replaced. The bulb was insufflated with an additional 7 cc the patient did seem to have improvement. Upon reassessment of the patient did have recurrent leakage into his diaper. The Miller catheter was removed and a new line was reinserted. Patient had no further complication. Patient was given strict follow-up, discharge, and return precautions. All questions were answered. Patient was deemed suitable for outpatient follow-up at this time. Patient agreed with the plan of care and was safely discharged home. Medication Reconcilliation Current Medication List: was personally reviewed by me Blood Pressure Screening Patient's blood pressure: Normal blood pressure Blood pressure disposition: Did not require urgent referral Impression Primary Impression: Complication of catheter Scribe Attestation The scribe's documentation has been prepared under my direction and personally reviewed by me in its entirety. I confirm that the note above accurately reflects all work, treatment, procedures, and medical decision making performed by me. Departure Information Dispostion Home / Self-Care Referrals No Doctor, Assigned (PCP) Patient Instructions ED Catheter Care Nikki Miller [facility] Additional Instructions Please return to the emergency department if you have worsening or recurrent symptoms not amenable to at-home treatment. Please call for a follow-up appointment with her primary care physician. Please take your medications as prescribed. If you have other concerns and/or complaints please feel free to also call your primary care physician's office or return the ED for further evaluation, management, and treatment. Take your medications as prescribed. You have been examined and treated today on an emergency basis only. This is not a substitute for, or an effort to provide, complete comprehensive medical care. It is impossible to recognize and treat all injuries or illnesses in a single emergency department visit. It is therefore important that you follow up closely with [facility], your PCP, and/or your specialist(s). Call as soon as possible for an appointment. Thank you for your time and consideration. I look forward to speaking with you again soon. Please don't hesitate to call us if you have any questions. Problem Qualifiers Primary Impression: Complication of catheter Encounter type: initial encounter Qualified Codes: T85.9XXA - Unspecified complication of internal prosthetic device, implant and graft, initial encounter
[2017-10-25 17:34] VITALS: BP 143/78; PULSE 86; TEMP 36.7; O2SAT 95
[2017-10-25] MEDS ORDERED: NYST100033 (17:41)
[2017-10-25] MEDS ORDERED: TPRSR50 PO (17:41)
[2017-10-25] MEDS ORDERED: GLC/500 PO (17:41)
[2017-10-25] MEDS ORDERED: GLIM2TAB2 PO (17:41)
[2017-10-28] MEDS ORDERED: SULF800T23 PO (13:30)
== END 2017-10-25 17:35 | disposition home or self-care (01) ==
LOC: C.EDB 14:27 → C.EDA 17:35
DX: T83.038A Leakage of other urinary catheter, initial encounter (principal); Y84.6 Urinary catheterization as the cause of abnormal reaction of the patient, or of later complication, without mention of misadventure at the time of the procedure; Z87.440 Personal history of urinary (tract) infections; I10 Essential (primary) hypertension; E11.9 Type 2 diabetes mellitus without complications; Z86.14 Personal history of Methicillin resistant Staphylococcus aureus infection; Z79.82 Long term (current) use of aspirin; Z79.01 Long term (current) use of anticoagulants; Z79.899 Other long term (current) drug therapy; Z88.7 Allergy status to serum and vaccine

== ENCOUNTER 2017-10-27 00:35 | Emergency (ER) | payer BC ==
[~2017-10-27] VITALS: Ht 182.9 cm; Wt 82.0 kg
[~2017-10-27 00:35] MED LIST changes: +GLC/500 PO; +GLIM2TAB2 PO; -METO25TA56 PO; +NYST100033; -SULF800T23 PO; +TPRSR50 PO
[2017-10-27 00:38] VITALS: TEMP 36.6; Ht 182.9 cm; Wt 82.0 kg
[2017-10-27] MEDS ORDERED: LIDOCAINE HCL 2% JELLY 30 ML TUBE EXT ONE (01:15)
[2017-10-27] MEDS ORDERED: FLUCONAZOLE 50 MG TAB PO ONE (01:15)
[2017-10-27] MEDS ORDERED: POLY335019 PO (01:24)
[2017-10-27] MEDS ORDERED: INSU100I2 SC (01:24)
[2017-10-27] MEDS ORDERED: NUTR-7 PO (01:24)
[2017-10-27] MEDS ORDERED: KETOROLAC TROMETHAMINE 60 MG/2 ML VIAL IM STA (02:13)
[2017-10-27] MEDS ORDERED: FLUC100T4 PO (02:58)
[2017-10-27 03:05] VITALS: BP 108/70; PULSE 77; O2SAT 99
--- NOTE | 2017-10-27 06:14 | EMERGENCY ROOM VISIT NOTE ---
History Report prepared by Destiny: Ector Murillo Under the Supervision of: Dr. Karina Parnell D.O. First contact with patient: 00:44 Chief Complaint: URINARY SYMPTOMS Stated Complaint: UTI Nursing Triage Summary: pt has indwelling catheter c/o burning catherter draining at this time. History of Present Illness The patient is a 67 year old male who presents to the Emergency Room with complaints of constant pain at the tip of his penis at the catheter site where his Miller catheter is placed. This pain began today. The patient describes the pain as a "burning" at the tip of his penis. He has no abdominal pain at this time. The patient notes that he has had the Miller placed for the pat 4-6 months because of an infection. He notes that he will have the catheter for about another month. There have not been any fevers or chills recently. He was in the Emergency Department last night for his catheter not draining properly. Source of History: patient Onset: Today Position: other (Tip of penis) Quality: burning Timing: constant Associated Symptoms: No fevers, No abdominal pain Review of Systems See HPI for pertinent positives & negatives. A total of 6 systems reviewed and were otherwise negative. Past Medical & Surgical Medical Problems: (1) Abscess (2) Acute blood loss anemia (3) Acute renal insufficiency (4) ATN (acute tubular necrosis) (5) Diabetes (6) DM II (diabetes mellitus, type II), controlled (7) Fungal infection (8) hematuria, osteomyelitis, (9) HTN (hypertension) (10) Hydronephrosis (11) Hypertension (12) Hypertension (13) Leukocytosis (14) MSSA (methicillin susceptible Staphylococcus aureus) septicemia (15) Needs peripherally inserted central catheter (PICC) (16) PICC (peripherally inserted central catheter) in place (17) Recurrent UTI (18) Recurrent UTI (19) Sepsis (20) Urinary tract infection Family History No pertinent family history Social History Smoking Status: Never Smoker Alcohol Use: none Drug Use: none Marital Status: single Housing Status: lives alone Occupation Status: retired Current/Historical Medications Scheduled Aspirin (Aspirin Ec), 81 MG PO DAILY Atorvastatin (Lipitor), 40 MG PO HS Cholecalciferol (Vitamin D3), 1,000 UNITS PO DAILY Clopidogrel (Plavix), 75 MG PO DAILY Cyanocobalamin (Vitamin B-12), 1,000 MCG PO DAILY Fluconazole (Diflucan), 100 MG PO BID Folic Acid (Folvite), 1 MG PO DAILY Glimepiride (Glimepiride), 2 MG PO QDB Insulin Glargine (Lantus Solostar), 30 UNITS SQ QPM Insulin Lispro (Human) (Humalog Kwikpen), 5 UNITS SC TIDM Lisinopril (Zestril), 2.5 MG PO DAILY Magnesium Oxide (Mag-Ox), 400 MG PO BID Metformin Hcl (Glucophage), 500 MG PO BID Methenamine Hippurate (Methenamine Hippurate), 1 GM PO BID Metoprolol Succinate (Metoprolol Succinate ER), 50 MG PO DAILY Nutritional Supplements (Boost), 1 CAN PO DAILY Tamsulosin Hcl (Flomax), 0.4 MG PO HS Scheduled PRN Polyethylene Glycol 3350 (Miralax), 17 GM PO DAILY PRN for Constipation Senna (Senokot), 8.6 MG PO DAILY PRN for Constipation Miscellaneous Medications Nystatin (Topical) (Nystatin) Allergies Coded Allergies: Polio Virus Vaccine Live Oral Triva (Verified Allergy, Unknown, Unknown, ) Physical Exam Vital Signs Date Time Temp Pulse Resp B/P (MAP) Pulse Ox O2 Delivery O2 Flow Rate FiO2 10/27/17 03:05 77 18 108/70 99 Room Air 10/27/17 02:16 82 18 109/60 95 Room Air 10/27/17 00:38 36.6 90 18 132/72 97 Room Air Physical Exam Abdomen: Soft, completely nontender, nondistended, with good bowel sounds. There are no palpable pulsatile masses or hepatosplenomegaly. There is no guarding, rigidity, or rebound noted. Genitourinary: There is a Miller catheter placed. Genital yeast dermatitis present. Skin: There is a small skin abscess that is slightly erythematous over the right buttock. Medical Decision & Procedures Medications Administered Medications (Trade) Dose Ordered Sig/Nilda Route Start Time Stop Time Status Last Admin Dose Admin Fluconazole (Diflucan Tab) 200 mg NOW ONCE PO 10/27/17 01:15 10/27/17 01:16 DC 10/27/17 01:24 200 MG Lidocaine HCl (Xylocaine Jelly 2%) 5 ml NOW ONCE EXT 10/27/17 01:15 10/27/17 01:16 DC 10/27/17 01:24 5 ML Ketorolac Tromethamine (Toradol Inj) 60 mg NOW STAT IM 10/27/17 02:13 10/27/17 02:14 DC 10/27/17 02:22 60 MG Procedure Medications Ordered: Lidocaine HCl, Fluconazole, Toradol. ED Course 0054: Past medical records reviewed. The patient was evaluated in room B7. A complete history and physical exam was performed. 0115: Ordered Lidocaine gel EXT, Diflucan 200 mg PO 0206: I checked on the patient at this time. He notes that he cannot go home because he is in too much pain. 0213: Ordered Toradol 60 mg IM. 0249: Upon reevaluation, the patient has had relief of his pain with Toradol. I discussed findings and results with him. He verbalized agreement of the treatment plan. The patient was discharged home. Medical Decision The patient is a 67 year old male who presents to the Emergency Department for "burning" at the tip of the penis. Differential Diagnosis includes; local irritation at the meatus, genital yeast infection, UTI, urinary obstruction. The patient has had intermittent indwelling Miller catheters over the past 6 months. He was just here yesterday to have the catheter replaced as it had been obstructed. Since that time, the patient has had some burning to the tip of the penis. On physical exam, the patient has obvious yeast dermatitis to the penis and scrotum. The patient was concerned about the catheter itself and thought it may need to be irrigated. The Miller catheter was irrigated incompletely operational. Patient was given oral Diflucan for the obvious yeast and had lidocaine gel applied to the urethral meatus. I believe the patient such significant burning to the meatus because of the associated yeast and Miller catheter placement. I have suggested the patient use Tylenol or Motrin for the pain and he will take Diflucan over the next 4 days. I have asked the patient to follow-up with his PCP if the symptoms persist. If symptoms worsen, he can return to the emergency department. Medication Reconcilliation Current Medication List: was personally reviewed by me Blood Pressure Screening Patient's blood pressure: Normal blood pressure Impression Primary Impression: Yeast dermatitis of penis Scribe Attestation The scribe's documentation has been prepared under my direction and personally reviewed by me in its entirety. I confirm that the note above accurately reflects all work, treatment, procedures, and medical decision making performed by me. Departure Information Dispostion Home / Self-Care Prescriptions Fluconazole (DIFLUCAN) 100 Mg Tab 100 MG PO BID, #8 TAB Prov: Karina Parnell D.O. 10/27/17 Referrals Barb Gray M.D. (PCP) Forms HOME CARE DOCUMENTATION FORM, IMPORTANT VISIT INFORMATION Patient Instructions My [facility] Additional Instructions Take Diflucan twice daily for next 4 days Motrin or tylenol for pain Follow up with PCP if burning continues
[2017-10-28] MEDS ORDERED: SULF800T23 PO (13:30)
== END 2017-10-27 03:23 | disposition home or self-care (01) ==
LOC: C.EDB 00:36
DX: B37.49 Other urogenital candidiasis (principal); E11.9 Type 2 diabetes mellitus without complications; I10 Essential (primary) hypertension; L02.31 Cutaneous abscess of buttock; Z96.0 Presence of urogenital implants; Z87.440 Personal history of urinary (tract) infections; Z79.82 Long term (current) use of aspirin; Z79.4 Long term (current) use of insulin; Z79.84 Long term (current) use of oral hypoglycemic drugs; Z88.7 Allergy status to serum and vaccine

== ENCOUNTER 2017-11-26 19:23 | Emergency (ER) | payer BC ==
[~2017-11-26] VITALS: Ht 182.9 cm; Wt 76.4 kg
[~2017-11-26 19:23] MED LIST changes: -ASPI81TA28 PO; -ATOR-24 PO; -Boost PO; -CHOL1000 PO; -CLOP1TAB15 PO; -CYAN10005 PO; -FOLI1TAB8 PO; -INSDGIPEN SQ; -LISI-789 PO; -MAGN400T6 PO; -METH-1305 PO; -MRLP17 PO; +NUTR-7 PO; +POLY335019 PO; -SENN-61 PO; +SULF800T23 PO; -TAMS0.4C38 PO
[2017-11-26 19:25] VITALS: Ht 182.9 cm; Wt 76.4 kg
[2017-11-26] MEDS ORDERED: ONDANSETRON INJ 2 MG/ML 2 ML VIAL IV STA (20:04)
[2017-11-26] MEDS ORDERED: HYDROmorphone INJ 1 MG/ML SYR IV STA (20:04)
[2017-11-26] MEDS ORDERED: CEFTRIAXONE SOD INJ 1 GM ADDVIAL IV STA (20:08)
[2017-11-26] MEDS ORDERED: SODIUM CHLORIDE 0.9% 1000ML 1,000 ML IV STA (20:08)
[2017-11-26] MEDS ORDERED: NVLGI/PEN SQ (20:11)
[2017-11-26 20:41] LABS: BASO % 0.3 %; BASO ABS # 0.02 K/uL (0-0.2); EOS % 4.1 %; EOS ABS # 0.29 K/uL (0-0.5); HEMATOCRIT 29.5 % (42-52); HEMOGLOBIN 9.5 g/dL (14.0-18.0); IG# 0.04 K/uL (0.00-0.02); LYMPH % 13.4 %; LYMPH ABS # 0.94 K/uL (1.2-3.4); MEAN CORPUSCULAR HEMOGLOBIN 27.7 pg (25-34); MEAN CORPUSCULAR HGB CONC 32.2 g/dl (32-36); MEAN PLATELET VOLUME 9.3 fL (7.4-10.4); MONO % 10.7 %; MONO ABS # 0.75 K/uL (0.11-0.59); NEUT % 70.9 %; NEUT ABS # 4.97 K/uL (1.4-6.5); PLATELET COUNT 291 K/uL (130-400); RED CELL DISTRIBUTION WIDTH CV 16.8 % (11.5-14.5); RED CELL DISTRIBUTION WIDTH SD 52.6 fL (36.4-46.3); WHITE BLOOD COUNT 7.01 K/uL (4.8-10.8)
[2017-11-26 21:05] LABS: ALBUMIN 3.2 gm/dl (3.4-5.0); CALCIUM 8.8 mg/dl (8.5-10.1); CREATININE 1.61 mg/dl (0.60-1.40); POTASSIUM 5.1 mmol/L (3.5-5.1); TOTAL PROTEIN 7.6 gm/dl (6.4-8.2)
[2017-11-26] MEDS ORDERED: KETOROLAC TROMETHAMINE 30 MG/ML VIAL ONE (21:25)
[2017-11-26] MEDS ORDERED: ASPI81TA28 PO (21:58)
[2017-11-26] MEDS ORDERED: ATOR-24 PO (21:59)
[2017-11-26] MEDS ORDERED: CLOP1TAB15 PO (21:59)
[2017-11-26] MEDS ORDERED: FOLI1TAB8 PO (22:00)
[2017-11-26] MEDS ORDERED: INSDGIPEN SQ (22:01)
[2017-11-26] MEDS ORDERED: LISI-789 PO (22:02)
[2017-11-26] MEDS ORDERED: MAGN400T6 PO (22:03)
[2017-11-26] MEDS ORDERED: METH-1305 PO (22:06)
[2017-11-26] MEDS ORDERED: SENN-61 PO (22:09)
[2017-11-26] MEDS ORDERED: TAMS0.4C38 PO (22:10)
[2017-11-26] MEDS ORDERED: CYAN10005 PO (22:11)
[2017-11-26] MEDS ORDERED: CHOL1000 PO (22:12)
[2017-11-26] MEDS ORDERED: CIPR-255 PO (22:46)
--- NOTE | 2017-11-26 22:58 | EMERGENCY ROOM VISIT NOTE ---
History Report prepared by Destiny: Tamara Steward Under the Supervision of: Dr. Jeff Mota M.D. First contact with patient: 19:29 Chief Complaint: URINARY SYMPTOMS Stated Complaint: BLOOD IN URINE History of Present Illness The patient is a 67 year old male who presents to the Emergency Room with complaints of worsening urinary symptoms starting this morning. The patient states that he has a catheter. He reports that early this morning he noticed it was draining with blood in it. He states that he called his in home nurse who told him to come to the ED. He states that he has had pain when it has had to be replaced. He notes that there is no pain when the old one comes out. The patient notes that this happened a year or two ago and he was admitted for it. He notes that his catheter is draining well. The patient denies abdominal pain. Source of History: patient Onset: this morning Position: other (global) Quality: other (urianry) Timing: worsening Associated Symptoms: No abdominal pain Review of Systems See HPI for pertinent positives & negatives. A total of 10 systems reviewed and were otherwise negative. Past Medical & Surgical Medical Problems: (1) Abscess (2) Acute blood loss anemia (3) Acute renal insufficiency (4) ATN (acute tubular necrosis) (5) Diabetes (6) DM II (diabetes mellitus, type II), controlled (7) Fungal infection (8) hematuria, osteomyelitis, (9) HTN (hypertension) (10) Hydronephrosis (11) Hypertension (12) Hypertension (13) Leukocytosis (14) MSSA (methicillin susceptible Staphylococcus aureus) septicemia (15) Needs peripherally inserted central catheter (PICC) (16) PICC (peripherally inserted central catheter) in place (17) Recurrent UTI (18) Recurrent UTI (19) Sepsis (20) Urinary tract infection Family History No pertinent family history Social History Smoking Status: Never Smoker Alcohol Use: none Drug Use: none Marital Status: single Housing Status: lives alone Occupation Status: retired Current/Historical Medications Scheduled Aspirin (Aspirin Ec), 81 MG PO DAILY Atorvastatin (Lipitor), 40 MG PO HS Cholecalciferol (Vitamin D3), 1,000 UNITS PO DAILY Ciprofloxacin Hcl (Cipro), 1 TAB PO BID Clopidogrel (Plavix), 75 MG PO DAILY Cyanocobalamin (Vitamin B-12), 1,000 MCG PO DAILY Folic Acid (Folvite), 1 MG PO DAILY Glimepiride (Glimepiride), 2 MG PO QDB Insulin Aspart (Novolog Flexpen), 5 UNITS SQ TIDM Insulin Glargine (Lantus Solostar), 30 UNITS SQ QPM Lisinopril (Zestril), 2.5 MG PO DAILY Magnesium Oxide (Mag-Ox), 400 MG PO BID Metformin Hcl (Glucophage), 500 MG PO BID Methenamine Hippurate (Methenamine Hippurate), 1 GM PO BID Metoprolol Succinate (Metoprolol Succinate ER), 50 MG PO DAILY Nutritional Supplements (Boost), 1 CAN PO DAILY Tamsulosin Hcl (Flomax), 0.4 MG PO HS Scheduled PRN Polyethylene Glycol 3350 (Miralax), 17 GM PO DAILY PRN for Constipation Senna (Senokot), 8.6 MG PO DAILY PRN for Constipation Miscellaneous Medications Nystatin (Topical) (Nystatin) Allergies Coded Allergies: Polio Virus Vaccine Live Oral [place] (Verified Allergy, Unknown, Unknown, ) Physical Exam Vital Signs Date Time Temp Pulse Resp B/P (MAP) Pulse Ox O2 Delivery O2 Flow Rate FiO2 11/26/17 23:03 36.6 80 20 118/60 97 Room Air 11/26/17 21:16 89 11/26/17 21:05 90 19 116/59 97 Room Air 11/26/17 19:25 36.8 67 18 110/61 96 Room Air Physical Exam GENERAL: Awake, alert, well-appearing, in no acute distress HENT: Normocephalic, atraumatic. Oropharynx unremarkable. EYES: Normal conjunctiva. Sclera non-icteric. NECK: Supple. No nuchal rigidity. FROM. No JVD. RESPIRATORY: Clear to auscultation. CARDIAC: Regular rate, normal rhythm. Extremities warm and well perfused. Pulses equal. ABDOMEN: Soft, non-distended. No tenderness to palpation. No rebound or guarding. No masses. RECTAL: Deferred. MUSCULOSKELETAL: Chest examination reveals no tenderness. The back is symmetrical on inspection without obvious abnormality. There is no CVA tenderness to palpation. No joint edema. LOWER EXTREMITIES: Calves are equal size bilaterally and non-tender. No edema. No discoloration. NEURO: Normal sensorium. No sensory or motor deficits noted. SKIN: No rash or jaundice noted. Medical Decision & Procedures Laboratory Results 11/26/17 20:27 Red Blood Count 3.43, Mean Corpuscular Volume 86.0, Mean Corpuscular Hemoglobin 27.7, Mean Corpuscular Hemoglobin Concent 32.2, Mean Platelet Volume 9.3, Neutrophils (%) (Auto) 70.9, Lymphocytes (%) (Auto) 13.4, Monocytes (%) (Auto) 10.7, Eosinophils (%) (Auto) 4.1, Basophils (%) (Auto) 0.3, Neutrophils # (Auto ) 4.97, Lymphocytes # (Auto) 0.94, Monocytes # (Auto) 0.75, Eosinophils # (Auto ) 0.29, Basophils # (Auto) 0.02 11/26/17 20:27 Test 11/26/17 20:27 White Blood Count 7.01 K/uL (4.8-10.8) Red Blood Count 3.43 M/uL (4.7-6.1) Hemoglobin 9.5 g/dL (14.0-18.0) Hematocrit 29.5 % (42-52) Mean Corpuscular Volume 86.0 fL (80-100) Mean Corpuscular Hemoglobin 27.7 pg (25-34) Mean Corpuscular Hemoglobin Concent 32.2 g/dl (32-36) Platelet Count 291 K/uL (130-400) Mean Platelet Volume 9.3 fL (7.4-10.4) Neutrophils (%) (Auto) 70.9 % Lymphocytes (%) (Auto) 13.4 % Monocytes (%) (Auto) 10.7 % Eosinophils (%) (Auto) 4.1 % Basophils (%) (Auto) 0.3 % Neutrophils # (Auto) 4.97 K/uL (1.4-6.5) Lymphocytes # (Auto) 0.94 K/uL (1.2-3.4) Monocytes # (Auto) 0.75 K/uL (0.11-0.59) Eosinophils # (Auto) 0.29 K/uL (0-0.5) Basophils # (Auto) 0.02 K/uL (0-0.2) RDW Standard Deviation 52.6 fL (36.4-46.3) RDW Coefficient of Variation 16.8 % (11.5-14.5) Immature Granulocyte % (Auto) 0.6 % Immature Granulocyte # (Auto) 0.04 K/uL (0.00-0.02) Urine Color RED Urine Appearance TURBID (CLEAR) Urine pH (4.5-7.5) Urine Specific [place] 1.025 (1.000-1.030) Urine Protein (NEG) Urine Glucose (UA) (NEG) Urine Ketones (NEG) Urine Occult Blood (NEG) Urine Nitrite (NEG) Urine Bilirubin (NEG) Urine Urobilinogen (NEG) Urine Leukocyte Esterase (NEG) Urine RBC >30 /hpf (0-4) Urine WBC >30 /hpf (0-5) Urine Epithelial Cells 0-5 /lpf (0-5) Urine Bacteria NEG (NEG) Urine Hyaline Casts 0 /lpf (0-5) Anion Gap 6.0 mmol/L (3-11) Est Creatinine Clear Calc Drug Dose 46.8 ml/min Estimated GFR () 49.8 Estimated GFR (Non- 43.0 BUN/Creatinine Ratio 22.4 (10-20) Calcium Level 8.8 mg/dl (8.5-10.1) Total Bilirubin 0.3 mg/dl (0.2-1) Direct Bilirubin 0.1 mg/dl (0-0.2) Aspartate Amino Transf (AST/SGOT) 13 U/L (15-37) Alanine Aminotransferase (ALT/SGPT) 14 U/L (12-78) Alkaline Phosphatase 121 U/L (45-117) Total Protein 7.6 gm/dl (6.4-8.2) Albumin 3.2 gm/dl (3.4-5.0) Lipase 275 U/L (73-393) Labs reviewed by ED physician. Medications Administered Medications (Trade) Dose Ordered Sig/Nilda Route Start Time Stop Time Status Last Admin Dose Admin Sodium Chloride 1,000 ml @ 999 mls/hr Q1H1M STAT IV 11/26/17 20:08 11/26/17 21:08 DC 11/26/17 20:45 999 MLS/HR Ceftriaxone Sodium (Rocephin Inj) 1 gm NOW STAT IV 11/26/17 20:08 11/26/17 20:09 DC 11/26/17 20:45 1 GM Ketorolac Tromethamine (Toradol Inj) 30 mg STK-MED ONCE .ROUTE 11/26/17 21:25 11/26/17 21:26 DC 11/26/17 21:25 30 MG ED Course 1958: Past medical records reviewed. The patient was evaluated in room B12B. A complete history and physical examination was performed. 2003: Ordered Zofran Inj 4 mg IV, Dilaudid Inj 1 mg IV. 2007: Ordered Rocephin Inj 1 gm IV, NSS 1000 ml @ 999 mls/hr IV. 2124: Ordered Toradol Inj 30 mg IV. 2237: Upon reexamination the patient is resting comfortably. I discussed results and treatment plan with the patient. He verbalizes agreement and understanding. The patient is ready for discharge. Medical Decision This is a 67-year-old male who presents emergency department complaining of hematuria. I will note that the patient has been here multiple times for the same complaint. Using shared medical decision making with the patient I recommended we flush the Miller catheter as well as replace his catheter. The patient decided that that is what he wanted to do. He was started on IV Rocephin and I will continue him on p.o. Cipro at home. His creatinine is slightly elevated so I recommended that the patient follow-up with his primary care physician and he increase his fluids over the next 48 hours. Case management was contacted to facilitate getting the patient in with urology. Patient was in agreement with the treatment plan. Medication Reconcilliation Current Medication List: was personally reviewed by me Blood Pressure Screening Patient's blood pressure: Normal blood pressure Blood pressure disposition: Did not require urgent referral Impression Primary Impression: Hematuria Scribe Attestation The scribe's documentation has been prepared under my direction and personally reviewed by me in its entirety. I confirm that the note above accurately reflects all work, treatment, procedures, and medical decision making performed by me. Departure Information Dispostion Home / Self-Care Prescriptions Ciprofloxacin Hcl (CIPRO) 500 Mg Tab 1 TAB PO BID for 14 Days, #28 TAB Prov: Jeff Mota MD 11/26/17 Referrals Barb Gray M.D. (PCP) Forms HOME CARE DOCUMENTATION FORM, IMPORTANT VISIT INFORMATION Patient Instructions [facility] Additional Instructions Increase fluids next 48 hours Follow up with Dr Marrero's office Culture results are usually available in approx 48 hours You have been examined and treated today on an emergency basis only. This is not a substitute for, or an effort to provide, complete comprehensive medical care. It is impossible to recognize and treat all injuries or illnesses in a single emergency department visit. It is therefore important that you follow up closely with Dr Gray. Call as soon as possible for an appointment. Thank you for your time and consideration. I look forward to speaking with you again soon. Please don't hesitate to call us if you have any questions. Problem Qualifiers Primary Impression: Hematuria Hematuria type: unspecified type Qualified Codes: R31.9 - Hematuria, unspecified
[2017-11-26 23:03] VITALS: BP 118/60; PULSE 80; TEMP 36.6; O2SAT 97
== END 2017-11-26 23:19 | disposition home or self-care (01) ==
LOC: C.EDB 19:24
DX: R31.9 Hematuria, unspecified (principal); Z96.0 Presence of urogenital implants; Z87.448 Personal history of other diseases of urinary system; E11.9 Type 2 diabetes mellitus without complications; Z79.4 Long term (current) use of insulin; Z79.02 Long term (current) use of antithrombotics/antiplatelets; Z79.82 Long term (current) use of aspirin; I10 Essential (primary) hypertension; Z87.440 Personal history of urinary (tract) infections; Z88.7 Allergy status to serum and vaccine

== ENCOUNTER 2018-02-20 11:49 | Emergency (ER) | payer BC ==
[~2018-02-20] VITALS: Ht 182.9 cm; Wt 80.9 kg
[~2018-02-20 11:49] MED LIST changes: +ASPI81TA28 PO; +ATOR-24 PO; +CHOL1000 PO; +CLOP1TAB15 PO; +CYAN10005 PO; +FOLI1TAB8 PO; +INSDGIPEN SQ; -INSU100I2 SC; +LISI-789 PO; +MAGN400T6 PO; +METH-1305 PO; +NVLGI/PEN SQ; +SENN-61 PO; -SULF800T23 PO; +TAMS0.4C38 PO
[2018-02-20 11:52] VITALS: TEMP 36.7; Ht 182.9 cm; Wt 80.9 kg
[2018-02-20] MEDS ORDERED: LIDOCAINE 2% JELLY 5 ML TUBE ONE (12:20)
[2018-02-20] MEDS ORDERED: CEPH500C PO (14:07)
[2018-02-20] MEDS ORDERED: CEFTRIAXONE SOD 350MG/ML 1 GM VIAL IM ONE (14:15)
[2018-02-20 14:33] VITALS: BP 155/68; PULSE 86; O2SAT 96
--- NOTE | 2018-02-20 16:17 | EMERGENCY ROOM VISIT NOTE ---
History First contact with patient: 11:58 Chief Complaint: CATHETER REPLACEMENT Stated Complaint: CATHERTER PROBLEMS History of Present Illness The patient is a 68 year old white male who presents to the Emergency Room with complaints of blockage of his urinary catheter. He states he is leaking around the catheter and is soaking his clothes in his bed. He tried to irrigate it last night but was unsuccessful. He denies any abdominal discomfort. No back pain. No fevers or chills. He states the catheter has been in for 5 weeks. It is chronic. He usually gets it changed every 4-6 weeks. He did not call his urologist. No other complaints. Review of Systems REVIEW OF SYSTEM: HEENT: No dizziness, visual problems, hearing loss, or tinnitus. There is no difficulty swallowing and no oral lesions are present. PULMONARY: No cough, shortness of breath, sputum production or hemoptysis. CARDIOVASCULAR: No chest pain, palpitations, shortness of breath or peripheral edema. GASTROINTESTINAL: No diarrhea, constipation, nausea, vomiting, or abdominal pain. GENITOURINARY: No dysuria. Miller catheter in place. NEUROLOGIC: No weakness, muscle tenderness, epilepsy or history of neurological problems. MUSCULOSKELETAL: No history of joint tenderness/swelling. No history of arthritis or arthralgias. SKIN: No rashes or lesions. PSYCHIATRIC: No history of depression or mental illness. ENDOCRINE: No history of thyroid disorders, or abnormal hair growth. Past Medical/Surgical History Medical Problems: (1) Abscess (2) Acute blood loss anemia (3) Acute renal insufficiency (4) ATN (acute tubular necrosis) (5) Diabetes (6) DM II (diabetes mellitus, type II), controlled (7) Fungal infection (8) hematuria, osteomyelitis, (9) HTN (hypertension) (10) Hydronephrosis (11) Hypertension (12) Hypertension (13) Leukocytosis (14) MSSA (methicillin susceptible Staphylococcus aureus) septicemia (15) Needs peripherally inserted central catheter (PICC) (16) PICC (peripherally inserted central catheter) in place (17) Recurrent UTI (18) Recurrent UTI (19) Sepsis (20) Urinary tract infection Family History No pertinent family history Social History Smoking Status: Never Smoker Smokeless Tobacco Use: No Alcohol Use: none Drug Use: none Marital Status: single Housing Status: lives alone Occupation Status: retired Current/Historical Medications Scheduled Aspirin (Aspirin Ec), 81 MG PO DAILY Atorvastatin (Lipitor), 40 MG PO HS Cephalexin Monohydrate (Keflex), 500 MG PO QID Cholecalciferol (Vitamin D3), 1,000 UNITS PO DAILY Clopidogrel (Plavix), 75 MG PO DAILY Cyanocobalamin (Vitamin B-12), 1,000 MCG PO DAILY Folic Acid (Folvite), 1 MG PO DAILY Glimepiride (Glimepiride), 2 MG PO QDB Insulin Aspart (Novolog Flexpen), 5 UNITS SQ TIDM Insulin Glargine (Lantus Solostar), 30 UNITS SQ QPM Lisinopril (Zestril), 2.5 MG PO DAILY Magnesium Oxide (Mag-Ox), 400 MG PO BID Metformin Hcl (Glucophage), 500 MG PO BID Methenamine Hippurate (Methenamine Hippurate), 1 GM PO BID Metoprolol Succinate (Metoprolol Succinate ER), 50 MG PO DAILY Nutritional Supplements (Boost), 1 CAN PO DAILY Tamsulosin Hcl (Flomax), 0.4 MG PO HS Scheduled PRN Polyethylene Glycol 3350 (Miralax), 17 GM PO DAILY PRN for Constipation Senna (Senokot), 8.6 MG PO DAILY PRN for Constipation Miscellaneous Medications Nystatin (Topical) (Nystatin) Physical Exam Vital Signs Date Time Temp Pulse Resp B/P (MAP) Pulse Ox O2 Delivery O2 Flow Rate FiO2 02/20/18 14:33 86 18 155/68 96 Room Air 02/20/18 11:52 36.7 105 18 165/82 97 Room Air Physical Exam General: Well-developed, well-nourished, elderly white male, in no acute distress. Laying on a bed. Alert and oriented. Skin: Warm and dry with good turgor. No rashes or lesions. No ecchymosis or erythema. The patient is not diaphoretic. No abrasions. Abdomen: Abdomen was inspected, auscultated, and palpated. Bowel sounds present x 4. Soft, nontender to palpation. No hepato-splenomegaly. No masses noted. No rebound. No CVA tenderness. Genitalia: Normal-appearing external genitalia. Miller catheter is in place. There is urine leaking around the catheter from the urethra. Medical Decision & Procedures Laboratory Results Test 02/20/18 12:40 Urine Color YELLOW Urine Appearance CLOUDY (CLEAR) Urine pH 7.5 (4.5-7.5) Urine Specific [place] 1.015 (1.000-1.030) Urine Protein 1+ (NEG) Urine Glucose (UA) 2+ (NEG) Urine Ketones NEG (NEG) Urine Occult Blood 3+ (NEG) Urine Nitrite NEG (NEG) Urine Bilirubin NEG (NEG) Urine Urobilinogen NEG (NEG) Urine Leukocyte Esterase LARGE (NEG) Urine WBC (Auto) >30 /hpf (0-5) Urine RBC (Auto) >30 /hpf (0-4) Urine Hyaline Casts (Auto) 1-5 /lpf (0-5) Urine Epithelial Cells (Auto) 0-5 /lpf (0-5) Urine Bacteria (Auto) 1+ (NEG) Urine Pathogenic Casts 0-3 RBC CASTS /lpf (0) UA obtained today from his catheter sample shows bacteria, WBCs, and RBCs. Medications Administered Medications (Trade) Dose Ordered Sig/Nilda Route Start Time Stop Time Status Last Admin Dose Admin Lidocaine HCl (Xylocaine Jelly 2%) 5 ml Rocketrip-MED ONCE .ROUTE 02/20/18 12:20 02/20/18 12:21 DC 02/20/18 12:20 5 ML Ceftriaxone Sodium (Rocephin Im) 1,000 mg NOW ONCE IM 02/20/18 14:15 02/20/18 14:16 DC 02/20/18 14:28 1,000 MG Rocephin 1 g IM, lidocaine jelly 2% ED Course Patient was educated regarding today's findings. Conservative care measures were discussed. We did try to flush his current catheter. This was unsuccessful. It was then removed and a new catheter was placed. He had no further leakage around the catheter. Patient tolerated the procedure well after use of lidocaine jelly. Urine sample was sent for micro and culture. Micro shows a likely UTI. Old records were checked and he was found to have a resistant bacteria that did not respond to Cipro. He did respond to Keflex. He was given a new prescription for Keflex 500 mg 4 times a day 10 days. Loading dose of Rocephin 1 g IM was given. Follow-up with urology on Thursday to discuss tailoring the antibiotic. Maintain hydration. Return to the ED for any acute worsening of symptoms. Medical Decision Possibility of UTI, nephritis, kidney stone, and mechanical blockage were considered among others. Medication Reconcilliation Current Medication List: was personally reviewed by me Blood Pressure Screening Patient's blood pressure: Normal blood pressure Impression Primary Impression: UTI (urinary tract infection) due to urinary indwelling catheter Additional Impression: Complication of catheter Departure Information Dispostion Home / Self-Care Condition GOOD Prescriptions Cephalexin Monohydrate (Keflex) 500 Mg Cap 500 MG PO QID, #40 CAP Prov: Abelardo Pena,P.A. 02/20/18 Referrals No Doctor, Assigned (PCP) Gray Marrero M.D. Forms HOME CARE DOCUMENTATION FORM, IMPORTANT VISIT INFORMATION [facility]ructions [facility] Additional Instructions Follow-up with urology Thursday Return to the ED for any acute changes keflex 500mg 1 pill 4 x day x 10 days Problem Qualifiers Primary Impression: UTI (urinary tract infection) due to urinary indwelling catheter Indwelling urinary catheter type: indwelling urethral catheter Encounter type : initial encounter Qualified Codes: T83.511A - Infection and inflammatory reaction due to indwelling urethral catheter, initial encounter; N39.0 - Urinary tract infection, site not specified Additional Impression: Complication of catheter Encounter type: initial encounter Qualified Codes: T85.9XXA - Unspecified complication of internal prosthetic device, implant and graft, initial encounter
--- NOTE | 2018-02-22 16:45 | Pharmacy Progress Note ---
ED Pharmacist Culture FollowUp Date of Service: Feb 22, 2018. Patient was sent home with a prescription for Keflex 500mg PO QID x 10 days, which should cover the proteus mirabilis growing from the patient's URINE culture.
[2018-02-25] MEDS ORDERED: DOXY-300 PO (14:41)
== END 2018-02-20 14:55 | disposition home or self-care (01) ==
LOC: C.EDB 11:52 → C.EDD 14:55
DX: T83.511A Infection and inflammatory reaction due to indwelling urethral catheter, initial encounter (principal); X58.XXXA Exposure to other specified factors, initial encounter; N39.0 Urinary tract infection, site not specified; E11.69 Type 2 diabetes mellitus with other specified complication; M86.9 Osteomyelitis, unspecified; Z79.4 Long term (current) use of insulin; Z79.02 Long term (current) use of antithrombotics/antiplatelets; Z79.82 Long term (current) use of aspirin; Z87.440 Personal history of urinary (tract) infections; Z87.448 Personal history of other diseases of urinary system

== ENCOUNTER 2018-07-08 12:24 | Inpatient (IN) ==
--- NOTE | 2018-07-08 14:40 | History & Physical Report ---
Date of Service July 08, 2018 Assessment & Plan (1) Fungal infection: - H/o fungal UTIs; UC 06/23 showed >100K colonies Donis glabrata. - Start 3 way continuous bladder irrigation with Amphotericin B. - Discussed with Dr. Wood, will also start Caspofungin IV. - Consult urology and ID as an inpatient -- follows with Dr. Wood and Dr. Marrero. (2) Acute pyelonephritis: - Treatment as noted above. - Urology consulted. (3) CAD (coronary artery disease): - H/o NSTEMI in February 2017. - Hold home Plavix and Aspirin for possible procedure. - Continue Atorvastatin 40 mg daily, Metoprolol 50 mg daily. (4) HTN (hypertension): - Continue Metoprolol 50 mg daily, Lisinopril 2.5 mg daily as prescribed. (5) Ischemic cardiomyopathy: - Echo showed EF 35-40% in May 2017; repeat TTE November 2017 showed EF 55 %. (6) Chronic combined systolic and diastolic CHF (congestive heart failure): - TTE May 2017 showed EF 35-40%, grade I diastolic dysfunction. - TTE November 2017 showed EF 55%, grade II diastolic dysfunction & normal systolic function. - Continue Metoprolol 50 mg daily, Lisinopril 2.5 mg daily. - Monitor for evidence of fluid overload; has LE edema, consider diuresis. (7) Hyperlipidemia: - Continue Atorvastatin 40 mg daily as prescribed. (8) Ulcer of left heel: - Admitted in December 2017 for left heel ulcer, wound culture +MRSA and Pseudomonas. - Follows with ID, consulted as inpatient. - Will continue Doxycycline 100 mg PO BID. - Consult wound care for evaluation. (9) Type II diabetes mellitus: - Hold home Metformin 500 mg BID, Glimepiride 2 mg daily. - On SSI and long acting at home; will start SSI coverage and Lantus 10 units BID. - Most recent hemoglobin A1C was 12.8 in May 2018. (10) Chronic kidney disease, stage III (moderate): - Monitor renal function closely. - Avoid nephrotoxic agents. (11) BPH (benign prostatic hyperplasia): - Continue Flomax 0.4 mg daily as prescribed. (12) Vitamin D deficiency: - Continue Vit D as prescribed. (13) DVT prophylaxis: - Hold for possible procedure. FEN/GI: Carb consistent, heart healthy, low sodium diet; No IVFs indicated. Dispo: Med/surg for bladder irritation with anti-fungal, ID consult. FULL CODE History of Present Illness Chief Complaint: UTI Primary Care Provider: Hayley Oseguera MD Mr. Patel is a 68 year old male with past medical history of CKD, chronic systolic CHF, DM, HTN, HLD, BPH with recent prolonged chronic indwelling hallman and recurrent UTI's who presents with a positive urine culture (Donis glabrata ). He has a history of fungal UTIs, most recently admitted in Jul - Aug 2017 for acute pyelonephritis related to yeast infection. He received a 5 day course of bladder irrigation with Amphotericin B along with Caspofungin IV. He was admitted in December 2017 for a left heel ulcer with wound culture +MRSA and Pseudomonas requiring IV antibiotics. Patient follows with ID, Dr. Wood, and is currently taking Doxycycline. He was evaluated by urology on 06/23; pt. refused chronic indwelling hallman or intermittent straight caths in setting of PVR. He started Methanamine 1 gm PO daily for coverage of infection. He presented to the ED on 07/01 for positive urine culture after appointment with ID but was discharged to home after discussion with Dr. Marrero. He followed up with Dr. Marrero today and was instructed to come to the ER for further evaluation. Patient reports feeling well overall. He denies fever/chills, dysuria, hematuria , urinary frequency or hesitancy at home. Denies URI symptoms, chest pain, SOB, LE edema, nausea or vomiting, diarrhea or constipation. When asked why he was sent to the ER by urology, patient states "you know better than I do". He also does not know specific med history and states he has a home nurse for med management. Left foot wound has dressing but has been overdue for a dressing changes x 72 hours. He went to the wound clinic 4 days ago and states they were closed. On examination, dressing has significant discharge. Allergies Allergy/AdvReac Type Severity Reaction Status Date / Time poliomyelitis vaccine, live Allergy Unknown Unknown Verified 07/01/18 13:15 oral Home Medications Home Medications Medication Instructions Recorded Confirmed Type aspirin 81 mg tablet,delayed 81 mg PO DAILY 03/02/18 07/01/18 History release atorvastatin 40 mg tablet 40 mg PO .q hs tab 03/02/18 07/01/18 History clopidogrel 75 mg tablet 75 mg PO DAILY 03/02/18 07/01/18 History cyanocobalamin (vit B-12) 1,000 1,000 mcg PO DAILY 03/02/18 07/01/18 History mcg tablet folic acid 1 mg tablet 1 mg PO DAILY 03/02/18 07/01/18 History glimepiride 2 mg tablet 2 mg PO QAM 03/02/18 07/01/18 History insulin aspart U-100 100 unit/mL 5 units SQ TID ml 03/02/18 07/01/18 History subcutaneous pen insulin glargine (U-100) 100 40 units SQ DAILY ml 03/02/18 07/01/18 History unit/mL subcutaneous solution lisinopril 2.5 mg tablet 2.5 mg PO DAILY 03/02/18 07/01/18 History magnesium oxide 400 mg capsule 400 mg PO BID cap 03/02/18 07/01/18 History metformin 500 mg tablet 500 mg PO BID 03/02/18 07/01/18 History methenamine hippurate 1 gram tablet 1 gm PO BID 03/02/18 07/01/18 History metoprolol succinate ER 50 mg 50 mg PO DAILY ea 03/02/18 07/01/18 History capsule sprinkle, ext. release 24 hr polyethylene glycol 3350 17 See Label Instructions PO DAILY 03/02/18 07/01/18 History gram/dose oral powder PRN gm sennosides 8.6 mg tablet 8.6 mg PO DAILY PRN tab 03/02/18 07/01/18 History tamsulosin 0.4 mg capsule 0.4 mg PO .q hs cap 03/02/18 07/01/18 History acetaminophen [Tylenol Extra 500 mg PO Q12 PRN 07/01/18 07/01/18 History Strength] cholecalciferol (vitamin D3) 5,000 unit PO DAILY 07/01/18 07/01/18 History [Vitamin D3] multivitamin 1 tab PO DAILY 07/01/18 07/01/18 History Past Med/Surg History Medical History Acute blood loss anemia (Acute) Acute renal insufficiency (Acute) Hematuria (Acute) ATN (acute tubular necrosis) (Chronic) Abscess (Chronic) DM II (diabetes mellitus, type II), controlled (Chronic) HTN (hypertension) (Chronic) Hydronephrosis (Chronic) MSSA (methicillin susceptible Staphylococcus aureus) (Chronic) Osteomyelitis (Chronic) Peripherally inserted central catheter in place (Chronic) Recurrent UTI (Chronic) Sepsis (Chronic) Yeast dermatitis (Chronic) Surgical History History of tonsillectomy Social History Current Living Situation: Alone current occupational status: retired Feels Safe at Home: Yes Safety Concerns: Feels Safe At This Time Smoking Status: Former smoker Do You Dip or Chew Tobacco: No Second Hand Exposure: No Tobacco Cessation Education Requested by Patient: No Hx Alcohol Use: No Hx Substance Use: No Beliefs That Will Affect Care: None Preferred Language: Argentine Communication Ability: Effective Customer Acquisition Specialist Required: No Review of Systems All systems reviewed & are unremarkable except as noted in HPI & below Constitutional: no fever, no chills, no weakness and no anorexia Respiratory: no cough and no dyspnea Cardiovascular: no chest pain, no palpitations, no syncope and no edema Gastrointestinal: no abdominal pain, no nausea, no vomiting, no constipation and no diarrhea/loose stools Genitourinary (Male): no dysuria, no difficulty urinating, no urinary frequency , no urinary hesitancy and no hematuria Musculoskeletal: no joint pain Integumentary: + non-healing lesions (Ulcer left heel, see HPI) Allergy / Immunological: no rash Physical Exam 2 Physical Exam: General: Chronically ill appearing male. HEENT: NC/AT; PERRLA with EOMI; [employer] conjunctiva, MMM. Neck: Supple and nontender Cardiac: RRR w/o murmurs, gallops or rubs Lungs: CTA bilaterally; No rhonchi, wheezing, or rales Abdomen: Bowel normoactive X 4; Nontender to palpation Rectal: Deferred : Deferred Extremities: Warm. +2-3 LE non pitting edema. Neuro: No focal weakness Skin: Ulcer on left heel, ~1 cm with surrounding callous. Results & Data Laboratory Results Labs pending. Code Status & VTE Plan Code Status FULL CODE Supervising Physician Co-Signing Physician Notes Attending Admission Note & Attestation - Pt seen/examined, chart reviewed, care plan d/w SYD Esposito. I agree w/ the donaldson components of her admission documentation. 68yo male with multiple medical problems including CKD stage 3, T2DM, ischemic cardiomyopathy with resulting chronic systolic/diastolic CHF, noncompliance, BPH with urinary retention, recurrent UTIs, and chronic left heel ulcer x 1 year presenting as a direct admission from the urology office for a fungal UTI. The patient has a known history of incomplete bladder emptying presumably due to BPH and has had foleys in the past. He has had several outpatient urology visits of late and hallman was recommended in that setting but patient refused. A recent urine culture grew donis glabrata. Other than incomplete emptying and nocturia he otherwise denies dysuria, fever, anorexia, chills, or other infectious symptoms. He openly admits to dietary indiscretion having eaten at [employer] last pm and stopping at the [employer] prior to coming to [facility]. In addition to the above he has LE edema, worse in the last few days. His left heel ulcer has been slowly improving by his report, and he follows w/ the [facility]. PMH, PSH, allergies, meds, sochx, famhx, ros - reviewed VSS, afebrile gen - NAD, a/o x 3, lying flat in bed comfortably mouth - no thrush neck - no JVD heart - borderline tachy, s1, s2, no murmur lungs - CTA b/l abd - soft, NT, ND, BS+, no HSM ext - 2+ edema b/l from feet to knees skin - heel ulcer, about 1.5cm x 1.5cm; depth is about 3-4mm; no drainage; no odor; no exposed bone; the calcaneal area has significant dry, thick, scaly skin ; onychomycosis of all toenails A/P: 1. fungal UTI (donis glabrata) 2. chronic left heel ulcer with prior MRSA/pseudomonas infection from such 3. noncompliance 4. chronic systolic/diastolic CHF 5. LE edema 6. BPH with LUTS 7. CAD 8. uncontrolled T2DM * agree with 3-way hallman placement and continuous amphotericin irrigation * agree with caspofungin as recommended by ID * ID and urology consulted * wound care consultation for left heel ulcer * counseling for better dietary practices and compliance * consider lasix PO for several days for worsening edema - which is likely from excess salt intake over the last few days * other plans per Ms. Cate Vargas MD
[2018-07-08] MEDS ORDERED: GLUCAGON FOR INJ 1 MG VIAL SQ PRN (17:08)
[2018-07-08] MEDS ORDERED: DEXTROSE 50% 50 ML SYRINGE IV PRN (17:08)
[2018-07-08] MEDS ORDERED: GLUCOSE 40% GEL 15 GM TUBE PO PRN (17:08)
[2018-07-08] MEDS ORDERED: CARBOHYDRATES FOR HYPOGLYCEMIA PO PRN (17:08)
[2018-07-08] MEDS ORDERED: GLUCOSE 10 TABS/TUBE PO PRN (17:08)
[2018-07-08] MEDS ORDERED: SENNA 8.6 MG TAB PO PRN (18:05)
[2018-07-08] MEDS ORDERED: POLYETHYLENE (MIRALAX) 17 GM PACK PO PRN (18:06)
[2018-07-08 18:51] LABS: Hematocrit (blood only) 34.1 % (42-52); Hemoglobin 11.2 g/dL (14.0-18.0); Mean Corpuscular Hgb Conc 32.8 g/dL (32-36); Mean Corpuscular Volume 94.2 fL (80-100); Platelet Count 238 K/uL (130-400); RDW Coefficient of Variation 14.8 % (11.5-14.5); RDW Standard Deviation 51.4 fL (36.4-46.3); Red Blood Count 3.62 M/uL (4.7-6.1)
[2018-07-08 19:00] LABS: Prothrombin Time 10.3 Seconds (9.0-12.0)
[2018-07-08] MEDS ORDERED: LIDOCAINE HCL 2% JELLY 30ML TUBE EXT ONE (19:14)
[2018-07-08] MEDS ORDERED: LIDOCAINE 2% JELLY 5 ML TUBE EXT ONE (19:30)
[2018-07-08 19:32] LABS: Alanine Aminotransferase 32 U/L (12-78); Albumin Globulin Ratio 0.6 (0.9-2); Alkaline Phosphatase 273 U/L (45-117); Aspartate Aminotransferase 24 U/L (15-37); BUN Creatinine Ratio 21.7 (10-20); Bilirubin,Total 0.8 mg/dl (0.2-1); Blood Urea Nitrogen 31 mg/dl (7-18); Calcium 8.6 mg/dl (8.5-10.1); Carbon Dioxide 25 mmol/L (21-32); Chloride 102 mmol/L (98-107); Est GFR (African American) 58.1; Est GFR (Non-African American) 50.1; Globulin 4.9 gm/dl (2.5-4.0); Glucose 414 mg/dl (70-99); Potassium 4.8 mmol/L (3.5-5.1); Sodium 132 mmol/L (136-145); Total Protein 7.9 gm/dl (6.4-8.2)
[2018-07-08] MEDS ORDERED: INSULIN GLARGINE SOLOSTAR 100 UNITS/ML 3 ML PEN SC SCH (21:00)
[2018-07-08] MEDS: DOXYCYCLINE HYCLATE 100 MG CAP PO SCH (21:12)
[2018-07-08] MEDS: ATORVASTATIN 40 MG TAB PO SCH (21:12)
[2018-07-08] MEDS: TAMSULOSIN HCL 0.4 MG CAP PO SCH (21:13)
[2018-07-08] MEDS: INSULIN ASPART 100 UNITS/ML 3 ML PEN SC SCH (21:17)
--- NOTE | 2018-07-08 21:20 | Urology Consultation ---
Date of Consultation July 08, 2018 Assessment & Plan (1) Candiduria: Assessment Angelica glabrata urinary infection No urologic intervention is needed at this time as the patient does not have any obstructing stones and is not septic I would defer treatment plans of his funguria to infectious disease History of Present Illness Attending Physician: Starla Beaulieu DO History of Present Illness 68-year-old white male admitted to the hospital with a Angelica UTI. He says he feels fine. Denies any fevers chills denies any nausea or vomiting. Has a history of a chronic indwelling Miller but currently does not have a Miller has been on methenamine to try to suppress bladder infections. Apparently he has had a lot of UTIs Allergies Allergy/AdvReac Type Severity Reaction Status Date / Time poliomyelitis vaccine, live Allergy Unknown Unknown Verified 07/01/18 13:15 oral Home Medications Home Medications Medication Instructions Recorded Confirmed Type aspirin 81 mg tablet,delayed 81 mg PO DAILY 03/02/18 07/01/18 History release atorvastatin 40 mg tablet 40 mg PO .q hs tab 03/02/18 07/01/18 History clopidogrel 75 mg tablet 75 mg PO DAILY 03/02/18 07/01/18 History cyanocobalamin (vit B-12) 1,000 1,000 mcg PO DAILY 03/02/18 07/01/18 History mcg tablet folic acid 1 mg tablet 1 mg PO DAILY 03/02/18 07/01/18 History glimepiride 2 mg tablet 2 mg PO QAM 03/02/18 07/01/18 History insulin aspart U-100 100 unit/mL 5 units SQ TID ml 03/02/18 07/01/18 History subcutaneous pen insulin glargine (U-100) 100 40 units SQ DAILY ml 03/02/18 07/01/18 History unit/mL subcutaneous solution lisinopril 2.5 mg tablet 2.5 mg PO DAILY 03/02/18 07/01/18 History magnesium oxide 400 mg capsule 400 mg PO BID cap 03/02/18 07/01/18 History metformin 500 mg tablet 500 mg PO BID 03/02/18 07/01/18 History methenamine hippurate 1 gram tablet 1 gm PO BID 03/02/18 07/01/18 History metoprolol succinate ER 50 mg 50 mg PO DAILY ea 03/02/18 07/01/18 History capsule sprinkle, ext. release 24 hr polyethylene glycol 3350 17 See Label Instructions PO DAILY 03/02/18 07/01/18 History gram/dose oral powder PRN gm sennosides 8.6 mg tablet 8.6 mg PO DAILY PRN tab 03/02/18 07/01/18 History tamsulosin 0.4 mg capsule 0.4 mg PO .q hs cap 03/02/18 07/01/18 History acetaminophen [Tylenol Extra 500 mg PO Q12 PRN 07/01/18 07/01/18 History Strength] cholecalciferol (vitamin D3) 5,000 unit PO DAILY 07/01/18 07/01/18 History [Vitamin D3] multivitamin 1 tab PO DAILY 07/01/18 07/01/18 History Patient History Medical History Acute blood loss anemia (Acute) Acute renal insufficiency (Acute) Hematuria (Acute) ATN (acute tubular necrosis) (Chronic) Abscess (Chronic) DM II (diabetes mellitus, type II), controlled (Chronic) HTN (hypertension) (Chronic) Hydronephrosis (Chronic) MSSA (methicillin susceptible Staphylococcus aureus) (Chronic) Osteomyelitis (Chronic) Peripherally inserted central catheter in place (Chronic) Recurrent UTI (Chronic) Sepsis (Chronic) Yeast dermatitis (Chronic) Surgical History History of tonsillectomy Social History Current Living Situation: Alone current occupational status: retired Feels Safe at Home: Yes Safety Concerns: Feels Safe At This Time Smoking Status: Former smoker Do You Dip or Chew Tobacco: No Second Hand Exposure: No Tobacco Cessation Education Requested by Patient: No Hx Alcohol Use: No Hx Substance Use: No Beliefs That Will Affect Care: None Preferred Language: Honduran Communication Ability: Effective Flatwork Presser Required: No Review of Systems Review of systems evaluated from his admitting history and physical Physical Exam 2 Vital Signs (Past 24 Hours): Last Vital Signs Temp 36.8 C 07/08/18 17:45 Pulse 106 H 07/08/18 17:45 Resp 18 07/08/18 17:45 BP 163/93 H 07/08/18 17:45 Pulse Ox 96 07/08/18 17:45 Physical Exam: Well-developed well-nourished white male in no acute distress neurologically he is alert and oriented x3 Lungs are clear to auscultation Cardiac shows a regular rate and rhythm Abdomen is soft nontender Extremities are without clubbing cyanosis or edema Results & Data Laboratory Results Lab results he has a white count of 9 a creatinine of 1.4 I reviewed some of his old imaging studies he does have bilateral mild hydronephrosis but there were no stones seen
[2018-07-08] MEDS: CASPOFUNGIN 50 MG in SODIUM CHLORIDE 0.9% 250 ML IV SCH (21:24)
[2018-07-08] MEDS: AMPHOTERICIN B 50 MG in WATER, STERILE 1,000 ML IR SCH (21:24)
[2018-07-09] MEDS: ACETAMINOPHEN 325 MG TAB PO PRN (06:39)
[2018-07-09 08:55] LABS: Hematocrit (blood only) 31.2 % (42-52); Mean Corpuscular Hgb Conc 32.1 g/dL (32-36); Mean Platelet Volume 10.1 fL (7.4-10.4); Platelet Count 209 K/uL (130-400); RDW Coefficient of Variation 14.8 % (11.5-14.5); RDW Standard Deviation 50.6 fL (36.4-46.3); Red Blood Count 3.32 M/uL (4.7-6.1); White Blood Count 7.73 K/uL (4.8-10.8)
[2018-07-09 09:30] LABS: BUN Creatinine Ratio 21.4 (10-20); Blood Urea Nitrogen 32 mg/dl (7-18); Calcium 8.7 mg/dl (8.5-10.1); Carbon Dioxide 24 mmol/L (21-32); Chloride 103 mmol/L (98-107); Est GFR (African American) 55.2; Est GFR (Non-African American) 47.7; Glucose 247 mg/dl (70-99); Magnesium 2.3 mg/dl (1.8-2.4); Potassium 4.1 mmol/L (3.5-5.1); Sodium 135 mmol/L (136-145)
[2018-07-09] MEDS: INSULIN ASPART 100 UNITS/ML 3 ML PEN SC SCH ×4 (10:04→21:13)
[2018-07-09] MEDS: INSULIN GLARGINE SOLOSTAR 100 UNITS/ML 3 ML PEN SC SCH ×2 (10:08→21:07)
[2018-07-09] MEDS: FOLIC ACID 1 MG TAB PO SCH (10:09)
[2018-07-09] MEDS: LISINOPRIL 2.5 MG TAB PO SCH (10:09)
[2018-07-09] MEDS: CHOLECALCIFEROL 1,000 UNITS TAB PO SCH (10:09)
[2018-07-09] MEDS: METOPROLOL SUCC 50MG EXT REL TAB PO SCH (10:09)
[2018-07-09] MEDS: CYANOCOBALAMIN 500 MCG TABLET (VITAMIN B-12) PO SCH (10:09)
[2018-07-09] MEDS: DOXYCYCLINE HYCLATE 100 MG CAP PO SCH ×2 (10:10→21:11)
[2018-07-09] MEDS: CLOPIDOGREL BISULFATE 75 MG TAB PO SCH (10:53)
[2018-07-09] MEDS: HEPARIN SOD 5,000 UNIT/0.5 ML VIAL SQ SCH ×2 (10:53→21:09)
[2018-07-09] MEDS: ASPIRIN 81 MG ECTAB PO SCH (10:53)
--- NOTE | 2018-07-09 15:27 | Infectious Disease Consult ---
Date of Consultation July 09, 2018 Assessment & Plan (1) Candidal UTI (urinary tract infection): 68-year-old diabetic with Angelica urinary tract infection with Angelica glabrata, likely fluconazole resistant. As discussed, will need bladder irrigation as well as IV caspofungin in hopes of clearing infection. Will need 5 days of the irrigation, and likely 5-7 days of IV caspofungin. Will follow. History of Present Illness Reason for Consultation: Fungal UTI Attending Physician: Maryellen Walters MD History of Present Illness 68-year-old male well-known to me from care at the wound center for his chronic left heel ulceration, currently being treated with doxycycline and local wound care, has a history of urinary retention, and has recently been found to have symptoms of urinary tract infection and now positive culture repeatedly for Angelica glabrata. Patient has not had significant fever or flank pain. No significant hematuria. Now being admitted for intravenous and intravesicular therapy. Allergies Allergy/AdvReac Type Severity Reaction Status Date / Time poliomyelitis vaccine, live Allergy Unknown Unknown Verified 07/01/18 13:15 oral Home Medications Home Medications Medication Instructions Recorded Confirmed Type aspirin 81 mg tablet,delayed 81 mg PO DAILY 03/02/18 07/01/18 History release atorvastatin 40 mg tablet 40 mg PO .q hs tab 03/02/18 07/01/18 History clopidogrel 75 mg tablet 75 mg PO DAILY 03/02/18 07/01/18 History cyanocobalamin (vit B-12) 1,000 1,000 mcg PO DAILY 03/02/18 07/01/18 History mcg tablet folic acid 1 mg tablet 1 mg PO DAILY 03/02/18 07/01/18 History glimepiride 2 mg tablet 2 mg PO QAM 03/02/18 07/01/18 History insulin aspart U-100 100 unit/mL 5 units SQ TID ml 03/02/18 07/01/18 History subcutaneous pen insulin glargine (U-100) 100 40 units SQ DAILY ml 03/02/18 07/01/18 History unit/mL subcutaneous solution lisinopril 2.5 mg tablet 2.5 mg PO DAILY 03/02/18 07/01/18 History magnesium oxide 400 mg capsule 400 mg PO BID cap 03/02/18 07/01/18 History metformin 500 mg tablet 500 mg PO BID 03/02/18 07/01/18 History methenamine hippurate 1 gram tablet 1 gm PO BID 03/02/18 07/01/18 History metoprolol succinate ER 50 mg 50 mg PO DAILY ea 03/02/18 07/01/18 History capsule sprinkle, ext. release 24 hr polyethylene glycol 3350 17 See Label Instructions PO DAILY 03/02/18 07/01/18 History gram/dose oral powder PRN gm sennosides 8.6 mg tablet 8.6 mg PO DAILY PRN tab 03/02/18 07/01/18 History tamsulosin 0.4 mg capsule 0.4 mg PO .q hs cap 03/02/18 07/01/18 History acetaminophen [Tylenol Extra 500 mg PO Q12 PRN 07/01/18 07/01/18 History Strength] cholecalciferol (vitamin D3) 5,000 unit PO DAILY 07/01/18 07/01/18 History [Vitamin D3] multivitamin 1 tab PO DAILY 07/01/18 07/01/18 History Patient History Medical History Acute blood loss anemia (Acute) Acute renal insufficiency (Acute) Hematuria (Acute) ATN (acute tubular necrosis) (Chronic) Abscess (Chronic) DM II (diabetes mellitus, type II), controlled (Chronic) HTN (hypertension) (Chronic) Hydronephrosis (Chronic) MSSA (methicillin susceptible Staphylococcus aureus) (Chronic) Osteomyelitis (Chronic) Peripherally inserted central catheter in place (Chronic) Recurrent UTI (Chronic) Sepsis (Chronic) Yeast dermatitis (Chronic) Surgical History History of tonsillectomy Social History marital status: Single Current Living Situation: Alone current occupational status: retired Feels Safe at Home: Yes Safety Concerns: Feels Safe At This Time Smoking Status: Former smoker Do You Dip or Chew Tobacco: No Second Hand Exposure: No Tobacco Cessation Education Requested by Patient: No Hx Alcohol Use: No Hx Substance Use: No Beliefs That Will Affect Care: None Communication Ability: Effective Review of Systems All symptoms were reviewed and are negative except as per HPI Physical Exam 2 Vital Signs (Past 24 Hours): Last Vital Signs Temp 36.7 C 07/09/18 15:11 Pulse 84 07/09/18 15:11 Resp 18 07/09/18 15:11 BP 131/69 07/09/18 15:11 Pulse Ox 93 07/09/18 15:11 Constitutional: WD/WN, vitals as above comfortable; no acute distress Eyes: PERRL, conjunctivae normal, anicteric sclerae ENMT: external ear and nose normal, oropharynx normal Neck: trachea midline, no thyromegaly neck nontender Respiratory: normal respiratory effort, lungs clear to auscultation normal percussion; does not use accessory muscles Cardiovascular: Rate/Rhythm: regular rate and regular rhythm Heart Sounds: normal S1 and normal S2; no gallop, no murmur and no cardiac rub Vessels: normal peripheral pulses; no JVD Gastrointestinal (Abdomen): normal bowel sounds, soft, nontender, no hepatosplenomegaly Musculoskeletal: no cyanosis or clubbing, extremities motor strength 5/5 Spine: thoracic spine normal to inspection and lumbar spine normal to inspection ; no cervical spinal tenderness Skin: no rashes, warm and dry Clean appearing left heel ulceration, no surrounding cellulitis Neurologic: patellar DTR's 2+ bilat, sensation intact no focal motor deficits Psychiatric: A+Ox3, euthymic affect Orientation: cooperative Genitourinary: Miller catheter in place with slightly blood-tinged urine Lymphatic: no cervical or axillary lymphadenopathy no inguinal lymphadenopathy Results & Data Laboratory Results Short CBC 07/08/18 07/09/18 Range/Units 18:35 08:44 WBC 9.00 7.73 (4.8-10.8) K/uL Hgb 11.2 L 10.0 L (14.0-18.0) g/dL Hct 34.1 L 31.2 L (42-52) % Plt Count 238 209 (130-400) K/uL BMP 07/08/18 07/09/18 18:35 08:44 Sodium 132 L 135 L Potassium 4.8 4.1 Chloride 102 103 Carbon Dioxide 25 24 BUN 31 H 32 H Creatinine 1.41 H 1.47 H Glucose 414 H* 247 H Calcium 8.6 8.7 Liver Function 07/08/18 Range/Units 18:35 Total Bilirubin 0.8 (0.2-1) mg/dl AST 24 (15-37) U/L ALT 32 (12-78) U/L Alkaline Phosphatase 273 H (45-117) U/L Albumin 3.0 L (3.4-5.0) gm/dl Diagnostic Findings Name: BHUMI GALEAS Acct: [id number] Status: DEP CLI : 1950 [facility] – [place], [place] Date: Age: 68 Sex: M Dis Date: Loc: Laboratory Specimen Drop Off Spec: [id number] Collected: 06/23/18-UNK Received: 06/23/[address]: Gray Marrero M.D. Copy To: RV. Pan MD Source: Urine,Clean Catch OV Order: Ordered: Urine Culture Comments: Source of Specimen: Clean Catch Queries: [facility] [place] [id number] Procedure Result Verified Site Urine Culture Final 06/26/18-1046 Organism 1 Angelica glabrata [place] Count >100,000 CFU/ml Sens No Sensitivities to Follow Name: BHUMI GALEAS : 1950 PAGE 1 Printed: 07/09/18 1527 END OF REPORT
--- NOTE | 2018-07-09 15:28 | Hospitalist Progress Note ---
Date of Service July 09, 2018 Assessment & Plan (1) Angelica UTI: - H/o fungal UTIs; UC 06/23 showed >100K colonies Angelica glabrata. - Consulted urology, no intervention indicated. - Consulted ID, appreciate input. - Started 3 way continuous bladder irrigation with Amphotericin B (End date: 07/13) - Continue Caspofungin IV for additional coverage (End date: 07/15/2018) (2) CAD (coronary artery disease): - H/o NSTEMI in February 2017. - Resume home Plavix and Aspirin. - Continue Atorvastatin 40 mg daily, Metoprolol 50 mg daily. (3) HTN (hypertension): - Continue Metoprolol 50 mg daily, Lisinopril 2.5 mg daily as prescribed. (4) Ischemic cardiomyopathy: - Echo showed EF 35-40% in May 2017; repeat TTE November 2017 showed EF 55 %. (5) Chronic combined systolic and diastolic CHF (congestive heart failure): - TTE May 2017 showed EF 35-40%, grade I diastolic dysfunction. - TTE November 2017 showed EF 55%, grade II diastolic dysfunction & normal systolic function. - Continue Metoprolol 50 mg daily, Lisinopril 2.5 mg daily. - Monitor for evidence of fluid overload; has LE edema, may require diuresis. (6) Hyperlipidemia: - Continue Atorvastatin 40 mg daily as prescribed. (7) Stage III pressure ulcer of left heel: - Admitted in December 2017 for left heel ulcer, wound culture +MRSA and Pseudomonas. - Follows with ID, consulted as inpt. - Continue Doxycycline 100 mg PO BID. - Consulted wound care for dressing changes. (8) Type II diabetes mellitus: - Holding home Metformin 500 mg BID, Glimepiride 2 mg daily. - Most recent A1C 12.8 in May 2018; pt. has not been using short acting insulin over last few days, only Lantus 40 units daily. - On SSI coverage --- titrating at needed for uncontrolled hyperglycemia. - Increased Lantus to 15 units BID. - Consider pharmacy consult. (9) Acute kidney injury: - Creatinine elevated above baseline, 1.47. - Holding IV fluids in setting of HF & LE edema. (10) Chronic kidney disease, stage III (moderate): - Monitor renal function closely. - Avoid nephrotoxic agents. (11) BPH (benign prostatic hyperplasia): - Continue Flomax 0.4 mg daily as prescribed. (12) Vitamin D deficiency: - Continue Vit D as prescribed. - Most recent Vit D level 20.6 in May 2018. (13) DVT prophylaxis: - Heparin 5,000 units BID. FEN/GI: Carb consistent, heart healthy, low sodium diet; No IVFs indicated. Dispo: Med/surg for bladder irritation with anti-fungal, ID consult. FULL CODE Supervising Physician Co-Signing Physician Notes PA Supervision Note: I did not personally see or examine the patient today, but I verified all donaldson points of SYD Ware's assessment and plan with the following exceptions/ additions: None Subjective Mr. Patel is doing well overall. Miller catheter was placed last night without difficulty. He denies chest pain, SOB, constipation or diarrhea, nausea/vomiting , limited PO intake. Blood glucose levels have been elevated -- pt. was not using short acting insulin at home but was using Lantus daily. Will continue to adjust as needed. Review of Systems All systems reviewed & are unremarkable except as noted in HPI & below Constitutional: no fever, no chills and no weakness Respiratory: no cough and no dyspnea Cardiovascular: + edema (Bilat LE); no chest pain and no palpitations Gastrointestinal: no abdominal pain, no nausea, no constipation and no diarrhea/ loose stools Genitourinary (Male): no difficulty urinating Integumentary: + skin ulcer (Left heel) Allergy / Immunological: no rash Physical Exam 2 Vital Signs (Past 24 Hours): Last Vital Signs Temp 36.7 C 07/09/18 15:11 Pulse 84 07/09/18 15:11 Resp 18 07/09/18 15:11 BP 131/69 07/09/18 15:11 Pulse Ox 93 07/09/18 15:11 Physical Exam: General: Chronically ill appearing male. HEENT: NC/AT; PERRLA with EOMI; [place] conjunctiva, MMM. Neck: Supple and nontender Cardiac: RRR Lungs: CTA bilaterally Abdomen: Bowel normoactive X 4; Nontender to palpation Rectal: Deferred : Deferred Extremities: Warm. +2 bilat LE non pitting edema. Neuro: No focal weakness Skin: Ulcer on left heel, ~1 cm in size, with dressing, did not visualize today. Results & Data Laboratory Results 01/10/2207/09/18 07/09/18 Range/Units 12:08 12:05 08:44 WBC (4.8-10.8) K/uL RBC (4.7-6.1) M/uL Hgb (14.0-18.0) g/dL Hct (42-52) % MCV (80-100) fL MCH (25-34) pg MCHC (32-36) g/dL RDW Std Deviation (36.4-46.3) fL RDW Coeff of Clarissa (11.5-14.5) % Plt Count (130-400) K/uL MPV (7.4-10.4) fL PT (9.0-12.0) Seconds INR (0.9-1.1) Sodium 135 L (136-145) mmol/L Potassium 4.1 (3.5-5.1) mmol/L Chloride 103 (98-107) mmol/L Carbon Dioxide 24 (21-32) mmol/L Anion Gap 9.0 (3-11) BUN 32 H (7-18) mg/dl Creatinine 1.47 H (0.6-1.4) mg/dl Est Cr Clr Drug Dosing Not Reportable Est GFR ( Amer) 55.2 Est GFR (Non-Af Amer) 47.7 BUN/Creatinine Ratio 21.4 H (10-20) Glucose 247 H (70-99) mg/dl POC Glucose 352 H* 337 H (70-99) Calcium 8.7 (8.5-10.1) mg/dl Magnesium 2.3 (1.8-2.4) mg/dl Total Bilirubin (0.2-1) mg/dl AST (15-37) U/L ALT (12-78) U/L Alkaline Phosphatase (45-117) U/L Total Protein (6.4-8.2) gm/dl Albumin (3.4-5.0) gm/dl Globulin (2.5-4.0) gm/dl Albumin/Globulin Ratio (0.9-2) Beta-Hydroxybutyric Acd (0.2-2.81) mg/dl 07/09/18 07/09/18 07/08/18 Range/Units 08:44 08:15 20:50 WBC 7.73 (4.8-10.8) K/uL RBC 3.32 L (4.7-6.1) M/uL Hgb 10.0 L (14.0-18.0) g/dL Hct 31.2 L (42-52) % MCV 94.0 (80-100) fL MCH 30.1 (25-34) pg MCHC 32.1 (32-36) g/dL RDW Std Deviation 50.6 H (36.4-46.3) fL RDW Coeff of Clarissa 14.8 H (11.5-14.5) % Plt Count 209 (130-400) K/uL MPV 10.1 (7.4-10.4) fL PT (9.0-12.0) Seconds INR (0.9-1.1) Sodium (136-145) mmol/L Potassium (3.5-5.1) mmol/L Chloride (98-107) mmol/L Carbon Dioxide (21-32) mmol/L Anion Gap (3-11) BUN (7-18) mg/dl Creatinine (0.6-1.4) mg/dl Est Cr Clr Drug Dosing Est GFR ( Amer) Est GFR (Non-Af Amer) BUN/Creatinine Ratio (10-20) Glucose (70-99) mg/dl POC Glucose 232 H 330 H (70-99) Calcium (8.5-10.1) mg/dl Magnesium (1.8-2.4) mg/dl Total Bilirubin (0.2-1) mg/dl AST (15-37) U/L ALT (12-78) U/L Alkaline Phosphatase (45-117) U/L Total Protein (6.4-8.2) gm/dl Albumin (3.4-5.0) gm/dl Globulin (2.5-4.0) gm/dl Albumin/Globulin Ratio (0.9-2) Beta-Hydroxybutyric Acd (0.2-2.81) mg/dl 07/08/18 07/08/18 07/08/18 Range/Units 18:35 18:35 18:35 WBC 9.00 (4.8-10.8) K/uL RBC 3.62 L (4.7-6.1) M/uL Hgb 11.2 L (14.0-18.0) g/dL Hct 34.1 L (42-52) % MCV 94.2 (80-100) fL MCH 30.9 (25-34) pg MCHC 32.8 (32-36) g/dL RDW Std Deviation 51.4 H (36.4-46.3) fL RDW Coeff of Clarissa 14.8 H (11.5-14.5) % Plt Count 238 (130-400) K/uL MPV 10.0 (7.4-10.4) fL PT 10.3 (9.0-12.0) Seconds INR 1.0 (0.9-1.1) Sodium 132 L (136-145) mmol/L Potassium 4.8 (3.5-5.1) mmol/L Chloride 102 (98-107) mmol/L Carbon Dioxide 25 (21-32) mmol/L Anion Gap 5.0 (3-11) BUN 31 H (7-18) mg/dl Creatinine 1.41 H (0.6-1.4) mg/dl Est Cr Clr Drug Dosing Not Reportable Est GFR ( Amer) 58.1 Est GFR (Non-Af Amer) 50.1 BUN/Creatinine Ratio 21.7 H (10-20) Glucose 414 H* (70-99) mg/dl POC Glucose (70-99) Calcium 8.6 (8.5-10.1) mg/dl Magnesium (1.8-2.4) mg/dl Total Bilirubin 0.8 (0.2-1) mg/dl AST 24 (15-37) U/L ALT 32 (12-78) U/L Alkaline Phosphatase 273 H (45-117) U/L Total Protein 7.9 (6.4-8.2) gm/dl Albumin 3.0 L (3.4-5.0) gm/dl Globulin 4.9 H (2.5-4.0) gm/dl Albumin/Globulin Ratio 0.6 L (0.9-2) Beta-Hydroxybutyric Acd 4.80 H (0.2-2.81) mg/dl 07/08/18 07/08/18 Range/Units 18:31 18:29 WBC (4.8-10.8) K/uL RBC (4.7-6.1) M/uL Hgb (14.0-18.0) g/dL Hct (42-52) % MCV (80-100) fL MCH (25-34) pg MCHC (32-36) g/dL RDW Std Deviation (36.4-46.3) fL RDW Coeff of Clarissa (11.5-14.5) % Plt Count (130-400) K/uL MPV (7.4-10.4) fL PT (9.0-12.0) Seconds INR (0.9-1.1) Sodium (136-145) mmol/L Potassium (3.5-5.1) mmol/L Chloride (98-107) mmol/L Carbon Dioxide (21-32) mmol/L Anion Gap (3-11) BUN (7-18) mg/dl Creatinine (0.6-1.4) mg/dl Est Cr Clr Drug Dosing Est GFR ( Amer) Est GFR (Non-Af Amer) BUN/Creatinine Ratio (10-20) Glucose (70-99) mg/dl POC Glucose 406 H* 447 H* (70-99) Calcium (8.5-10.1) mg/dl Magnesium (1.8-2.4) mg/dl Total Bilirubin (0.2-1) mg/dl AST (15-37) U/L ALT (12-78) U/L Alkaline Phosphatase (45-117) U/L Total Protein (6.4-8.2) gm/dl Albumin (3.4-5.0) gm/dl Globulin (2.5-4.0) gm/dl Albumin/Globulin Ratio (0.9-2) Beta-Hydroxybutyric Acd (0.2-2.81) mg/dl
[2018-07-09] MEDS: AMPHOTERICIN B 50 MG in WATER, STERILE 1,000 ML IR SCH (18:26)
[2018-07-09] MEDS: TAMSULOSIN HCL 0.4 MG CAP PO SCH (21:10)
[2018-07-09] MEDS: ATORVASTATIN 40 MG TAB PO SCH (21:11)
[2018-07-09] MEDS: CASPOFUNGIN 50 MG in SODIUM CHLORIDE 0.9% 250 ML IV SCH (21:17)
[2018-07-10] MEDS: LISINOPRIL 2.5 MG TAB PO SCH (08:02)
[2018-07-10] MEDS: CHOLECALCIFEROL 1,000 UNITS TAB PO SCH (08:02)
[2018-07-10] MEDS: DOXYCYCLINE HYCLATE 100 MG CAP PO SCH ×2 (08:02→20:50)
[2018-07-10] MEDS: CYANOCOBALAMIN 500 MCG TABLET (VITAMIN B-12) PO SCH (08:03)
[2018-07-10] MEDS: FOLIC ACID 1 MG TAB PO SCH (08:03)
[2018-07-10] MEDS: METOPROLOL SUCC 50MG EXT REL TAB PO SCH (08:03)
[2018-07-10] MEDS: CLOPIDOGREL BISULFATE 75 MG TAB PO SCH (08:03)
[2018-07-10] MEDS: ASPIRIN 81 MG ECTAB PO SCH (08:03)
[2018-07-10] MEDS: INSULIN ASPART 100 UNITS/ML 3 ML PEN SC SCH ×4 (09:20→20:46)
[2018-07-10] MEDS: HEPARIN SOD 5,000 UNIT/0.5 ML VIAL SQ SCH ×2 (09:21→20:51)
[2018-07-10] MEDS: INSULIN GLARGINE SOLOSTAR 100 UNITS/ML 3 ML PEN SC SCH ×2 (09:22→20:45)
[2018-07-10 09:28] LABS: Hematocrit (blood only) 32.1 % (42-52); Hemoglobin 10.4 g/dL (14.0-18.0); Mean Corpuscular Hgb Conc 32.4 g/dL (32-36); Mean Corpuscular Volume 94.1 fL (80-100); Mean Platelet Volume 9.8 fL (7.4-10.4); Platelet Count 228 K/uL (130-400); RDW Coefficient of Variation 14.9 % (11.5-14.5); RDW Standard Deviation 50.8 fL (36.4-46.3); Red Blood Count 3.41 M/uL (4.7-6.1); White Blood Count 6.86 K/uL (4.8-10.8)
[2018-07-10 09:54] LABS: BUN Creatinine Ratio 24.2 (10-20); Blood Urea Nitrogen 34 mg/dl (7-18); Calcium 8.8 mg/dl (8.5-10.1); Carbon Dioxide 25 mmol/L (21-32); Chloride 104 mmol/L (98-107); Est GFR (African American) 58.1; Est GFR (Non-African American) 50.1; Glucose 158 mg/dl (70-99); Magnesium 2.2 mg/dl (1.8-2.4); Potassium 3.8 mmol/L (3.5-5.1); Sodium 137 mmol/L (136-145)
--- NOTE | 2018-07-10 14:24 | Hospitalist Progress Note ---
Date of Service July 10, 2018 Assessment & Plan (1) Angelica UTI: - H/o fungal UTIs; UC 06/23 showed >100K colonies Angelica glabrata. - Repeat u/a and UC were ordered at admission but not collected prior to inserting hallman/starting bladder irrigation. - Consulted urology, no intervention indicated. - Consulted ID, appreciate input. - 3 way continuous bladder irrigation with Amphotericin B (End date: 07/13/2018) - Continue Caspofungin IV for additional coverage (End date: 07/15/2018) (2) CAD (coronary artery disease): - H/o NSTEMI in February 2017. - Continue Atorvastatin 40 mg daily, Metoprolol 50 mg daily, Plavix and Aspirin. (3) HTN (hypertension): - Continue Metoprolol 50 mg daily, Lisinopril 2.5 mg daily as prescribed. (4) Ischemic cardiomyopathy: - Echo showed EF 35-40% in May 2017; repeat TTE November 2017 showed EF 55 %. (5) Chronic combined systolic and diastolic CHF (congestive heart failure): - TTE May 2017 showed EF 35-40%, grade I diastolic dysfunction. - TTE November 2017 showed EF 55%, grade II diastolic dysfunction & normal systolic function (now resolved) - Continue Metoprolol 50 mg daily, Lisinopril 2.5 mg daily. - Monitor for evidence of fluid overload; LE now improved after starting low Na diet. (6) Hyperlipidemia: - Continue Atorvastatin 40 mg daily as prescribed. (7) Stage III pressure ulcer of left heel: - Admitted in December 2017 for left heel ulcer, wound culture +MRSA and Pseudomonas. - Follows with ID, consulted as inpt. - Continue Doxycycline 100 mg PO BID. - Consulted wound care, clean area with saline and cover with Zara and dressing QOD. (8) Type II diabetes mellitus: - Holding home Metformin 500 mg BID, Glimepiride 2 mg daily. - Most recent A1C 12.8 in May 2018; pt. was not using short acting insulin prior to admission, only Lantus 40 units daily. - On SSI coverage --- titrating at needed. - Increased Lantus to 15 units BID. - Will consult pharmacy due to uncontrolled glucose levels. (9) Acute kidney injury: - Creatinine elevated above baseline, 1.41. - Holding IV fluids in setting of HF & LE edema. (10) Chronic kidney disease, stage III (moderate): - Monitor renal function closely. - Avoid nephrotoxic agents. (11) BPH (benign prostatic hyperplasia): - Continue Flomax 0.4 mg daily as prescribed. (12) Vitamin D deficiency: - Continue Vit D as prescribed. - Most recent Vit D level 20.6 in May 2018. (13) DVT prophylaxis: - Heparin 5,000 units BID. FEN/GI: Carb consistent, heart healthy, low sodium diet; No IVFs indicated. Dispo: Med/surg for bladder irritation with anti-fungal, ID consult. FULL CODE Supervising Physician Co-Signing Physician Notes PA Supervision Note: I did not personally see or examine the patient today, but I verified all donaldson points of SYD Ware's assessment and plan with the following exceptions/ additions: None Subjective Pt. is doing well overall, no specific complaints today. He is tolerating bladder irrigation with Ampho B along with Caspo IV. ID following, appreciate input. Denies nausea, constipation, SOB or chest pain. LE edema is improved, will continue to monitor. Review of Systems All systems reviewed & are unremarkable except as noted in HPI & below Constitutional: no fever, no chills and no weakness Respiratory: no cough and no dyspnea Cardiovascular: + edema (Improved); no chest pain and no palpitations Gastrointestinal: no abdominal pain, no nausea and no constipation Musculoskeletal: no joint pain Allergy / Immunological: no rash Physical Exam 2 Vital Signs (Past 24 Hours): Last Vital Signs Temp 36.9 C 07/10/18 07:15 Pulse 81 07/10/18 07:15 Resp 18 07/10/18 07:15 BP 128/72 07/10/18 07:15 Pulse Ox 92 07/10/18 07:15 Physical Exam: General: Chronically ill appearing male. HEENT: NC/AT; PERRLA with EOMI; [place] conjunctiva, MMM. Neck: Supple and nontender Cardiac: RRR Lungs: CTA bilaterally Abdomen: Bowel normoactive X 4; Nontender to palpation Rectal: Deferred : Deferred Extremities: Warm. +1 bilat LE edema. Neuro: No focal weakness Skin: Ulcer on left heel, ~1 cm in size, with dressing. Results & Data Laboratory Results 07/10/18 07/10/18 07/10/18 Range/Units 12:14 09:18 09:18 WBC 6.86 (4.8-10.8) K/uL RBC 3.41 L (4.7-6.1) M/uL Hgb 10.4 L (14.0-18.0) g/dL Hct 32.1 L (42-52) % MCV 94.1 (80-100) fL MCH 30.5 (25-34) pg MCHC 32.4 (32-36) g/dL RDW Std Deviation 50.8 H (36.4-46.3) fL RDW Coeff of Clarissa 14.9 H (11.5-14.5) % Plt Count 228 (130-400) K/uL MPV 9.8 (7.4-10.4) fL Sodium 137 (136-145) mmol/L Potassium 3.8 (3.5-5.1) mmol/L Chloride 104 (98-107) mmol/L Carbon Dioxide 25 (21-32) mmol/L Anion Gap 8.0 (3-11) BUN 34 H (7-18) mg/dl Creatinine 1.41 H (0.6-1.4) mg/dl Est Cr Clr Drug Dosing Not Reportable Est GFR ( Amer) 58.1 Est GFR (Non-Af Amer) 50.1 BUN/Creatinine Ratio 24.2 H (10-20) Glucose 158 H (70-99) mg/dl POC Glucose 230 H (70-99) Calcium 8.8 (8.5-10.1) mg/dl Magnesium 2.2 (1.8-2.4) mg/dl 07/10/18 07/09/18 07/09/18 Range/Units 08:03 20:39 17:02 WBC (4.8-10.8) K/uL RBC (4.7-6.1) M/uL Hgb (14.0-18.0) g/dL Hct (42-52) % MCV (80-100) fL MCH (25-34) pg MCHC (32-36) g/dL RDW Std Deviation (36.4-46.3) fL RDW Coeff of Clarissa (11.5-14.5) % Plt Count (130-400) K/uL MPV (7.4-10.4) fL Sodium (136-145) mmol/L Potassium (3.5-5.1) mmol/L Chloride (98-107) mmol/L Carbon Dioxide (21-32) mmol/L Anion Gap (3-11) BUN (7-18) mg/dl Creatinine (0.6-1.4) mg/dl Est Cr Clr Drug Dosing Est GFR ( Amer) Est GFR (Non-Af Amer) BUN/Creatinine Ratio (10-20) Glucose (70-99) mg/dl POC Glucose 94 116 H 109 H (70-99) Calcium (8.5-10.1) mg/dl Magnesium (1.8-2.4) mg/dl
[2018-07-10] MEDS ORDERED: PHARMACY GLYCEMIC MGMT CONSULT SCH (14:43)
--- NOTE | 2018-07-10 14:59 | Pharmacy Report ---
Glycemic Control Consultation - Date of Service July 10, 2018 - Scope Scope: Glycemic Pharmacist consulted by Marta Olsen PA-C on 07/10/18 for glycemic control and to write orders per [facility] inpatient glycemic control protocol - Objective Weight: 88.4 kg Accuchecks BSG (last 24hrs): 07/09/18 07/09/18 07/10/18 17:02 20:39 08:03 Glucose POC Glucose 109 H 116 H 94 07/10/18 07/10/18 09:18 12:14 Glucose 158 H POC Glucose 230 H Laboratory Data (last 24hrs): 07/10/18 09:18 Potassium 3.8 Carbon Dioxide 25 Anion Gap 8.0 Creatinine 1.41 H Est Cr Clr Drug Dosing Not Reportable HbA1c: 12.8% - 05/24/18 - Recent Pertinent Medications Outpatient Anti-diabetic Regimen: * Novolog 5 units TID meals * Lantus 40 units daily * Glimepiride 2mg PO daily * Metformin 500mg PO BID The patient is currently receiving: * Basal insulin: Lantus 15 units every 12 hours * Correctional Insulin: Novolog Correction per scale ACHS Goal Range: Low 120 mg/dL - High 160 mg/dL Correction Factor: 40 mg/dL/unit * Prandial insulin: Per carb ratio of 1 unit per 10 grams CHO consumed * Oral Agents: On Hold Risk Factors for Insulin Resistance: * Infection: Amphotericin B bladder irrigation; Caspofungin IV; Doxy PO * Diet: Type 2 DM - Assessment & Plan Assessment & Plan: ASSESSMENT: * 68 year old male admitted for donis UTI - on IV and bladder irrigation * Uncontrolled diabetic at home, blood sugars better controlled past 24 hours, blood sugars still rising with CHO intake, will tight CF and CR slightly and continue Lantus at same dose, fasting BSG 94mg/dl PLAN FOR INPATIENT GLYCEMIC CONTROL: * Holding outpatient oral diabetes medications * Basal insulin * Lantus 15 units SQ BID * Bolus insulin * NovoLog per scale ACHS or Q6hrs while NPO * Goal Range: Low 120 mg/dL - High 150 mg/dL - slightly higher for pt with high A1c * TIGHTEN: Correction Factor: 35 mg/dL/unit * TIGHTEN: Nutritional / Prandial insulin per carb ratio of 1 unit per 8 grams CHO consumed * Please note that the plan above was derived based on current level of insulin resistance and hospital stress. These recommendations are appropriate for inpatient admission only. Plan of care upon discharge will need to be reassessed to avoid potential outpatient hypo/hyperglycemia. Thank you.
[2018-07-10] MEDS: AMPHOTERICIN B 50 MG in WATER, STERILE 1,000 ML IR SCH (18:23)
[2018-07-10] MEDS: CASPOFUNGIN 50 MG in SODIUM CHLORIDE 0.9% 250 ML IV SCH (20:42)
[2018-07-10] MEDS: ATORVASTATIN 40 MG TAB PO SCH (20:51)
[2018-07-10] MEDS: TAMSULOSIN HCL 0.4 MG CAP PO SCH (20:53)
[2018-07-11 06:30] LABS: Alanine Aminotransferase 23 U/L (12-78); Albumin Level 2.6 gm/dl (3.4-5.0); Aspartate Aminotransferase 16 U/L (15-37); BUN Creatinine Ratio 25.3 (10-20); Blood Urea Nitrogen 32 mg/dl (7-18); Calcium 8.6 mg/dl (8.5-10.1); Carbon Dioxide 26 mmol/L (21-32); Chloride 108 mmol/L (98-107); Est GFR (African American) 67.2; Glucose 82 mg/dl (70-99); Magnesium 2.1 mg/dl (1.8-2.4); Potassium 3.9 mmol/L (3.5-5.1); Sodium 138 mmol/L (136-145)
[2018-07-11 06:33] LABS: Albumin Globulin Ratio 0.6 (0.9-2); Alkaline Phosphatase 244 U/L (45-117); Bilirubin,Total 0.4 mg/dl (0.2-1); Globulin 4.3 gm/dl (2.5-4.0); Total Protein 6.9 gm/dl (6.4-8.2)
[2018-07-11] MEDS: ACETAMINOPHEN 325 MG TAB PO PRN (07:17)
[2018-07-11] MEDS: CHOLECALCIFEROL 1,000 UNITS TAB PO SCH (07:22)
[2018-07-11] MEDS: ASPIRIN 81 MG ECTAB PO SCH (07:22)
[2018-07-11] MEDS: LISINOPRIL 2.5 MG TAB PO SCH (07:22)
[2018-07-11] MEDS: FOLIC ACID 1 MG TAB PO SCH (07:22)
[2018-07-11] MEDS: CYANOCOBALAMIN 500 MCG TABLET (VITAMIN B-12) PO SCH (07:23)
[2018-07-11] MEDS: CLOPIDOGREL BISULFATE 75 MG TAB PO SCH (07:23)
[2018-07-11] MEDS: METOPROLOL SUCC 50MG EXT REL TAB PO SCH (07:23)
[2018-07-11] MEDS: DOXYCYCLINE HYCLATE 100 MG CAP PO SCH ×2 (07:23→20:59)
[2018-07-11] MEDS: HEPARIN SOD 5,000 UNIT/0.5 ML VIAL SQ SCH ×2 (08:43→21:05)
[2018-07-11] MEDS: INSULIN GLARGINE SOLOSTAR 100 UNITS/ML 3 ML PEN SC SCH ×2 (08:44→21:04)
[2018-07-11] MEDS: INSULIN ASPART 100 UNITS/ML 3 ML PEN SC SCH ×4 (08:50→21:02)
--- NOTE | 2018-07-11 13:02 | Hospitalist Progress Note ---
Date of Service July 11, 2018 Assessment & Plan (1) Angelica UTI: - H/o fungal UTIs; UC 06/23 showed >100K colonies Angelica glabrata. - Repeat u/a and UC were ordered at admission but not collected prior to inserting hallman/starting bladder irrigation. - Consulted urology, no intervention indicated. - Consulted ID, appreciate input. - 3 way continuous bladder irrigation with Amphotericin B (End date: 07/13/2018) - Continue Caspofungin IV for additional coverage (End date: 07/15/2018) (2) CAD (coronary artery disease): - H/o NSTEMI in February 2017. - Continue Atorvastatin 40 mg daily, Metoprolol 50 mg daily, Plavix and Aspirin. (3) HTN (hypertension): - Continue Metoprolol 50 mg daily, Lisinopril 2.5 mg daily as prescribed. (4) Ischemic cardiomyopathy: - Echo showed EF 35-40% in May 2017; repeat TTE November 2017 showed EF 55 %. (5) Chronic combined systolic and diastolic CHF (congestive heart failure): - TTE May 2017 showed EF 35-40%, grade I diastolic dysfunction. - TTE November 2017 showed EF 55%, grade II diastolic dysfunction & normal systolic function -- systolic HF now resolved. - Continue Metoprolol 50 mg daily, Lisinopril 2.5 mg daily. - Monitor for evidence of fluid overload. (6) Anemia of chronic disease: - History of anemia; hgb is currently ~10 during this admission. - Had positive occult stool in February 2017; negative occult stool in May 2017. - Was evaluated by GI in May 2017; recommended EGD and colonoscopy but procedures were never completed. - B12 level 1562 in May 2018; will repeat B12 and Folate levels. - Iron panel ordered in AM. (7) Hyperlipidemia: - Continue Atorvastatin 40 mg daily as prescribed. (8) Stage III pressure ulcer of left heel: - Admitted in December 2017 for left heel ulcer, wound culture +MRSA and Pseudomonas. - Follows with ID, consulted as inpt. - Continue Doxycycline 100 mg PO BID. - Consulted wound care, clean area with saline and cover with Zara and dressing QOD. (9) Type II diabetes mellitus: - Holding home Metformin 500 mg BID, Glimepiride 2 mg daily. - Most recent A1C 12.8 in May 2018. - Pt. was not using short acting insulin prior to admission, only Lantus 40 units daily. - Consulted pharmacy for glycemic management due to uncontrolled levels. (10) Acute kidney injury: - Creatinine now improved, 1.25 this morning. - Holding IV fluids in setting of HF. (11) Chronic kidney disease, stage III (moderate): - Monitor renal function closely. - Avoid nephrotoxic agents. (12) BPH (benign prostatic hyperplasia): - Continue Flomax 0.4 mg daily as prescribed. (13) Elevated alkaline phosphatase level: - Alk Phos level elevated since admission (prior to receiving Caspo IV); all other LFTs WNL. - May be related to underlying liver disease -- Liver US showed mild enlargement , trace perihepatic ascites and gallbladder filled with shadowing gallstones ( consider HIDA scan) - GGT level ordered to evaluate for bone vs. liver source. (14) Vitamin D deficiency: - Continue Vit D as prescribed. - Most recent Vit D level 20.6 in May 2018. (15) DVT prophylaxis: - Heparin 5,000 units BID. FEN/GI: NPO for liver US; No IVFs indicated. Dispo: Continue bladder irrigation with anti-fungal, ID consulted. PT/OT following, recommending acute rehab. Pt. would like to go to [facility] -- will need to determine if they can complete bladder irrigation and Caspo course at their facility. FULL CODE Supervising Physician Co-Signing Physician Notes PA Supervision Note: I did not personally see or examine the patient today, but I verified all donaldson points of SYD Ware's assessment and plan with the following exceptions/ additions: None Subjective Patient is doing well overall this morning. He denies chest pain, SOB, constipation or diarrhea, nausea or vomiting, loss of appetite. Pt. has requested to go to [facility]; PT/OT following. Will need referral for acute rehab pending completion of bladder irrigation course with Ampho B and Caspo IV. Review of Systems All systems reviewed & are unremarkable except as noted in HPI & below Constitutional: + weakness; no fever and no chills Respiratory: no cough and no dyspnea Cardiovascular: no chest pain, no palpitations and no edema Gastrointestinal: no abdominal pain, no nausea and no constipation Musculoskeletal: no joint pain Integumentary: + skin ulcer (Left heel) Allergy / Immunological: no rash Physical Exam 2 Vital Signs (Past 24 Hours): Last Vital Signs Temp 36.6 C 07/11/18 07:15 Pulse 85 07/11/18 07:15 Resp 16 07/11/18 07:15 BP 146/79 H 07/11/18 07:15 Pulse Ox 92 07/11/18 07:15 Physical Exam: General: Chronically ill appearing male. HEENT: NC/AT; PERRLA with EOMI; [place] conjunctiva, MMM. Neck: Supple and nontender Cardiac: RRR Lungs: CTA bilaterally Abdomen: Bowel normoactive X 4; Nontender to palpation Rectal: Deferred : Deferred Extremities: Warm. No LE edema noted, now resolved over last 24 hours. Neuro: No focal weakness Skin: Ulcer on left heel, ~1 cm in size, with dressing. Did not examine during rounds. Results & Data Laboratory Results 07/11/18 07/11/18 07/11/18 Range/Units 12:15 09:12 08:14 Sodium (136-145) mmol/L Potassium (3.5-5.1) mmol/L Chloride (98-107) mmol/L Carbon Dioxide (21-32) mmol/L Anion Gap (3-11) BUN (7-18) mg/dl Creatinine (0.6-1.4) mg/dl Est Cr Clr Drug Dosing Est GFR ( Amer) Est GFR (Non-Af Amer) BUN/Creatinine Ratio (10-20) Glucose (70-99) mg/dl POC Glucose 214 H 78 (70-99) Calcium (8.5-10.1) mg/dl Magnesium (1.8-2.4) mg/dl Total Bilirubin (0.2-1) mg/dl GGT Pending AST (15-37) U/L ALT (12-78) U/L Alkaline Phosphatase (45-117) U/L Total Protein (6.4-8.2) gm/dl Albumin (3.4-5.0) gm/dl Globulin (2.5-4.0) gm/dl Albumin/Globulin Ratio (0.9-2) 07/11/18 07/10/18 07/10/18 Range/Units 05:35 20:34 17:04 Sodium 138 (136-145) mmol/L Potassium 3.9 (3.5-5.1) mmol/L Chloride 108 H (98-107) mmol/L Carbon Dioxide 26 (21-32) mmol/L Anion Gap 4.0 (3-11) BUN 32 H (7-18) mg/dl Creatinine 1.25 (0.6-1.4) mg/dl Est Cr Clr Drug Dosing Not Reportable Est GFR ( Amer) 67.2 Est GFR (Non-Af Amer) 58.0 BUN/Creatinine Ratio 25.3 H (10-20) Glucose 82 (70-99) mg/dl POC Glucose 195 H 188 H (70-99) Calcium 8.6 (8.5-10.1) mg/dl Magnesium 2.1 (1.8-2.4) mg/dl Total Bilirubin 0.4 (0.2-1) mg/dl GGT AST 16 (15-37) U/L ALT 23 (12-78) U/L Alkaline Phosphatase 244 H (45-117) U/L Total Protein 6.9 (6.4-8.2) gm/dl Albumin 2.6 L (3.4-5.0) gm/dl Globulin 4.3 H (2.5-4.0) gm/dl Albumin/Globulin Ratio 0.6 L (0.9-2)
--- NOTE | 2018-07-11 15:35 | Ultrasound Report ---
ULTRASOUND RIGHT UPPER QUADRANT ABDOMEN CLINICAL HISTORY: Elevated alkaline phosphatase. COMPARISON STUDY: Abdominal CT dated 07/22/2017. TECHNIQUE: Real-time, grayscale, and color flow sonography of the right upper quadrant of the abdomen was performed. Images are reviewed in the transverse and longitudinal planes. FINDINGS: Liver: The liver is mildly enlarged, measuring 18.6 cm in length. Hepatic echotexture is mildly heter ogeneous. There is no intrahepatic biliary ductal dilatation. The main portal vein is patent. Gallbladder: The gallbladder is filled with shadowing gallstones. The gallbladder wall is not well as sessed. There is no pericholecystic fluid. A sonographic Duran's sign is reportedly absent. The comm on bile duct measures up to 0.5 cm in diameter. Pancreas: Visualized portions of the pancreatic head and body are normal in appearance. Right kidney: Survey images of the right kidney demonstrate normal size and echotexture. There is no hydronephrosis. Ascites: Trace perihepatic ascites is noted. Pleural spaces: A small right pleural effusion is noted. IMPRESSION: 1. The liver is mildly enlarged and heterogeneous in echotexture. 2. There is trace perihepatic ascites. 3. The gallbladder is filled with shadowing gallstones. There is no convincing sonographic evidence o f acute cholecystitis. If there is clinical concern for acute cholecystitis a nuclear hepatobiliary s can could be considered. 4. Small right pleural effusion. Electronically signed by: Moi Almazan M.D. 07/11/2018 3:33 PM
[2018-07-11] MEDS: AMPHOTERICIN B 50 MG in WATER, STERILE 1,000 ML IR SCH (17:47)
[2018-07-11] MEDS: CASPOFUNGIN 50 MG in SODIUM CHLORIDE 0.9% 250 ML IV SCH (19:32)
[2018-07-11] MEDS: TAMSULOSIN HCL 0.4 MG CAP PO SCH (20:58)
[2018-07-11] MEDS: ATORVASTATIN 40 MG TAB PO SCH (20:59)
[2018-07-12 06:45] LABS: Hematocrit (blood only) 33.7 % (42-52); Hemoglobin 10.7 g/dL (14.0-18.0); Mean Corpuscular Hgb Conc 31.8 g/dL (32-36); Mean Corpuscular Volume 94.9 fL (80-100); Mean Platelet Volume 9.9 fL (7.4-10.4); Platelet Count 268 K/uL (130-400); RDW Coefficient of Variation 14.9 % (11.5-14.5); RDW Standard Deviation 52.3 fL (36.4-46.3); Red Blood Count 3.55 M/uL (4.7-6.1); White Blood Count 6.56 K/uL (4.8-10.8)
[2018-07-12 07:22] LABS: Alanine Aminotransferase 20 U/L (12-78); Albumin Globulin Ratio 0.6 (0.9-2); Albumin Level 2.5 gm/dl (3.4-5.0); Aspartate Aminotransferase 18 U/L (15-37); BUN Creatinine Ratio 21.2 (10-20); Bilirubin,Total 0.4 mg/dl (0.2-1); Blood Urea Nitrogen 26 mg/dl (7-18); Calcium 8.5 mg/dl (8.5-10.1); Carbon Dioxide 27 mmol/L (21-32); Chloride 106 mmol/L (98-107); Est GFR (African American) 67.2; Globulin 4.1 gm/dl (2.5-4.0); Glucose 72 mg/dl (70-99); Potassium 3.8 mmol/L (3.5-5.1); Sodium 139 mmol/L (136-145); Total Protein 6.6 gm/dl (6.4-8.2)
[2018-07-12 07:24] LABS: Alkaline Phosphatase 219 U/L (45-117); Ferritin 124.6 ng/ml (8-388); Iron 24 mcg/dl (35-175)
[2018-07-12 07:59] LABS: Folate (Folic Acid) > 24.00 ng/ml (>5.38); Vitamin B12 1887 pg/ml (211-911)
[2018-07-12] MEDS: CLOPIDOGREL BISULFATE 75 MG TAB PO SCH (09:24)
[2018-07-12] MEDS: CHOLECALCIFEROL 1,000 UNITS TAB PO SCH (09:24)
[2018-07-12] MEDS: CYANOCOBALAMIN 500 MCG TABLET (VITAMIN B-12) PO SCH (09:25)
[2018-07-12] MEDS: DOXYCYCLINE HYCLATE 100 MG CAP PO SCH ×2 (09:26→20:43)
[2018-07-12] MEDS: METOPROLOL SUCC 50MG EXT REL TAB PO SCH (09:26)
[2018-07-12] MEDS: LISINOPRIL 2.5 MG TAB PO SCH (09:27)
[2018-07-12] MEDS: ASPIRIN 81 MG ECTAB PO SCH (09:27)
[2018-07-12] MEDS: FOLIC ACID 1 MG TAB PO SCH (09:27)
[2018-07-12] MEDS: INSULIN GLARGINE SOLOSTAR 100 UNITS/ML 3 ML PEN SC SCH ×2 (09:28→20:46)
[2018-07-12] MEDS: HEPARIN SOD 5,000 UNIT/0.5 ML VIAL SQ SCH ×2 (09:28→20:45)
[2018-07-12] MEDS: INSULIN ASPART 100 UNITS/ML 3 ML PEN SC SCH ×4 (09:30→20:47)
--- NOTE | 2018-07-12 13:45 | Pharmacy Report ---
Pharmacy Glycemic Short Note 2 - Date of Service July 12, 2018 - Glycemic Short BSG Results (Last 24 hours): 07/11/18 07/11/18 07/12/18 17:11 20:10 06:27 Glucose 72 POC Glucose 117 H 189 H 07/12/18 07/12/18 08:12 12:04 Glucose POC Glucose 77 154 H ASSESSMENT: * Mr. Patel's BSGs over the previous 24hrs have been fairly well controlled. [phone]/dL, he required 49 units of insulin yesterday. He is largely basal heavy. * He is being treated for a cUTI, minimal other RF for insulin resistance at this juncture PLAN FOR INPATIENT GLYCEMIC CONTROL: * Hold outpatient oral diabetes medications * Basal insulin * Lantus scale SQ BID * BSGs <180mg/dL give 10 units * BSGs >/=180mg/dL give 15 units * Bolus insulin * NovoLog per scale ACHS or Q6hrs while NPO * Goal Range: Low 120 mg/dL - High 150 mg/dL * Correction Factor: 35 mg/dL/unit * Nutritional / Prandial insulin per carb ratio of 1 unit per 7 grams CHO consumed
--- NOTE | 2018-07-12 18:12 | Hospitalist Progress Note ---
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 - Repeat u/a and UC were ordered at admission but not collected prior to inserting hallman/starting bladder irrigation. - Consulted urology, no intervention indicated. - Consulted ID - 3 way continuous bladder irrigation with Amphotericin B (End date: 07/13/2018) - Continue Caspofungin IV for additional coverage (End date: 07/15/2018) (2) CAD (coronary artery disease): - H/o NSTEMI in February 2017. - Continue Atorvastatin 40 mg daily, Metoprolol 50 mg daily, Plavix and Aspirin. (3) HTN (hypertension): - Continue Metoprolol 50 mg daily, Lisinopril 2.5 mg daily as prescribed. (4) Ischemic cardiomyopathy: - Echo showed EF 35-40% in May 2017; repeat TTE November 2017 showed EF 55 %. (5) Chronic combined systolic and diastolic CHF (congestive heart failure): - TTE May 2017 showed EF 35-40%, grade I diastolic dysfunction. - TTE November 2017 showed EF 55%, grade II diastolic dysfunction & normal systolic function -- systolic HF now resolved. - Continue Metoprolol 50 mg daily, Lisinopril 2.5 mg daily. - Monitor for evidence of fluid overload. (6) Anemia of chronic disease: - History of anemia; hgb is currently ~10 during this admission. - Had positive occult stool in February 2017; negative occult stool in May 2017. - Was evaluated by GI in May 2017; recommended EGD and colonoscopy but procedures were never completed. - B12 level 1562 in May 2018; repeat B12 and Folate levels wnl - Iron low - initiated iron replacement (7) Hyperlipidemia: - Continue Atorvastatin 40 mg daily as prescribed. (8) Stage III pressure ulcer of left heel: - Admitted in December 2017 for left heel ulcer, wound culture +MRSA and Pseudomonas. - Follows with ID, consulted as inpt. - Continue Doxycycline 100 mg PO BID. - Consulted wound care, clean area with saline and cover with Zara and dressing QOD. (9) Type II diabetes mellitus: - Holding home Metformin 500 mg BID, Glimepiride 2 mg daily. - Most recent A1C 12.8 in May 2018. - Pt. was not using short acting insulin prior to admission, only Lantus 40 units daily. - Consulted pharmacy for glycemic management due to uncontrolled levels. (10) Acute kidney injury: - Creatinine now improved - Holding IV fluids in setting of HF. (11) Chronic kidney disease, stage III (moderate): - Monitor renal function closely. - Avoid nephrotoxic agents. (12) BPH (benign prostatic hyperplasia): - Continue Flomax 0.4 mg daily as prescribed. (13) Elevated alkaline phosphatase level: - Alk Phos level elevated since admission (prior to receiving Caspo IV); all other LFTs WNL.Alk phos trending back down - May be related to underlying liver disease -- Liver US showed mild enlargement , trace perihepatic ascites and gallbladder filled with shadowing gallstones ( consider HIDA scan). Will hold off on further imaging for now unless patient develops symptoms - GGT level ordered to evaluate for bone vs. liver source. (14) Vitamin D deficiency: - Continue Vit D as prescribed. - Most recent Vit D level 20.6 in May 2018. (15) DVT prophylaxis: - Heparin 5,000 units BID. FEN/GI: NPO for liver US; No IVFs indicated. Dispo: Continue bladder irrigation with anti-fungal, ID consulted. PT/OT following, recommending acute rehab. Pt. would like to go to [facility] -- is appropriate for discharge to [facility] tomorrow after bladder irrigation is completed FULL CODE Subjective Mr. Patel has no complaints today. Review of Systems All systems reviewed & are unremarkable except as noted in HPI & below Physical Exam 2 Vital Signs (Past 24 Hours): Last Vital Signs Temp 36.9 C 07/12/18 07:41 Pulse 81 07/12/18 07:41 Resp 16 07/12/18 07:41 BP 131/73 07/12/18 07:41 Pulse Ox 93 07/12/18 07:41 Physical Exam: General: no distress Eyes: normal inspection, PERLL Respiratory: chest non tender, clear to auscultation, normal breath sounds, no respiratory distress, no accessory muscle use Cardiac: regular rate and rhythm, no rub or gallop, no murmur, no edema, no jvd GI/: active bowel sounds, no abd pain or tenderness, soft, non distended Extremities: normal range of motion, normal strength, non tender Neuro/Psych: alert and oriented x 3, normal mood and affect Skin: normal color, dry Results & Data Laboratory Results Abnormal lab results 07/11/18 07/12/18 07/12/18 Range/Units 20:10 06:27 06:27 RBC 3.55 L (4.7-6.1) M/uL Hgb 10.7 L (14.0-18.0) g/dL Hct 33.7 L (42-52) % MCHC 31.8 L (32-36) g/dL RDW Std Deviation 52.3 H (36.4-46.3) fL RDW Coeff of Clarissa 14.9 H (11.5-14.5) % BUN 26 H (7-18) mg/dl BUN/Creatinine Ratio 21.2 H (10-20) POC Glucose 189 H (70-99) Iron 24 L (35-175) mcg/dl TIBC 239 L (250-450) mcg/dl Alkaline Phosphatase 219 H (45-117) U/L Albumin 2.5 L (3.4-5.0) gm/dl Globulin 4.1 H (2.5-4.0) gm/dl Albumin/Globulin Ratio 0.6 L (0.9-2) Vitamin B12 (211-911) pg/ml 07/12/18 07/12/18 Range/Units 06:27 12:04 RBC (4.7-6.1) M/uL Hgb (14.0-18.0) g/dL Hct (42-52) % MCHC (32-36) g/dL RDW Std Deviation (36.4-46.3) fL RDW Coeff of Clarissa (11.5-14.5) % BUN (7-18) mg/dl BUN/Creatinine Ratio (10-20) POC Glucose 154 H (70-99) Iron (35-175) mcg/dl TIBC (250-450) mcg/dl Alkaline Phosphatase (45-117) U/L Albumin (3.4-5.0) gm/dl Globulin (2.5-4.0) gm/dl Albumin/Globulin Ratio (0.9-2) Vitamin B12 1887 H (211-911) pg/ml
[2018-07-12] MEDS: AMPHOTERICIN B 50 MG in WATER, STERILE 1,000 ML IR SCH (18:40)
[2018-07-12] MEDS: ATORVASTATIN 40 MG TAB PO SCH (20:43)
[2018-07-12] MEDS: TAMSULOSIN HCL 0.4 MG CAP PO SCH (20:43)
[2018-07-12] MEDS: CASPOFUNGIN 50 MG in SODIUM CHLORIDE 0.9% 250 ML IV SCH (21:53)
[2018-07-13 08:28] LABS: Alanine Aminotransferase 21 U/L (12-78); Albumin Level 2.5 gm/dl (3.4-5.0); Aspartate Aminotransferase 18 U/L (15-37); BUN Creatinine Ratio 17.5 (10-20); Blood Urea Nitrogen 22 mg/dl (7-18); Carbon Dioxide 27 mmol/L (21-32); Chloride 107 mmol/L (98-107); Est GFR (African American) 65.9; Est GFR (Non-African American) 56.9; Glucose 79 mg/dl (70-99); Potassium 3.9 mmol/L (3.5-5.1); Sodium 140 mmol/L (136-145)
[2018-07-13 08:31] LABS: Albumin Globulin Ratio 0.6 (0.9-2); Alkaline Phosphatase 224 U/L (45-117); Bilirubin,Total 0.4 mg/dl (0.2-1); Globulin 4.3 gm/dl (2.5-4.0); Total Protein 6.8 gm/dl (6.4-8.2)
--- NOTE | 2018-07-13 09:54 | Urology Progress Note ---
Date of Service July 13, 2018 pt resting comfortably. Appears to have 5 days of irrigation midnite . Would continue irrigation until he completes capsofungin and then remove hallman . Unfortunately patient does not empty his bladder and cannot do cic . Suspect he is at high risk of recurrence . pt needs f/u in next month with me at urology as outpatient Physical Exam 2 Vital Signs (Past 24 Hours): Last Vital Signs Temp 36.6 C 07/13/18 07:52 Pulse 80 07/13/18 07:52 Resp 18 07/13/18 07:52 BP 134/75 07/13/18 07:52 Pulse Ox 92 07/13/18 07:52
[2018-07-13] MEDS: LISINOPRIL 2.5 MG TAB PO SCH (09:55)
[2018-07-13] MEDS: METOPROLOL SUCC 50MG EXT REL TAB PO SCH (09:56)
[2018-07-13] MEDS: CLOPIDOGREL BISULFATE 75 MG TAB PO SCH (09:56)
[2018-07-13] MEDS: ASPIRIN 81 MG ECTAB PO SCH (09:56)
[2018-07-13] MEDS: CYANOCOBALAMIN 500 MCG TABLET (VITAMIN B-12) PO SCH (09:56)
[2018-07-13] MEDS: CHOLECALCIFEROL 1,000 UNITS TAB PO SCH (09:56)
[2018-07-13] MEDS: FOLIC ACID 1 MG TAB PO SCH (09:56)
[2018-07-13] MEDS: HEPARIN SOD 5,000 UNIT/0.5 ML VIAL SQ SCH ×2 (09:58→21:18)
[2018-07-13] MEDS: INSULIN ASPART 100 UNITS/ML 3 ML PEN SC SCH ×4 (09:59→21:17)
[2018-07-13] MEDS: INSULIN GLARGINE SOLOSTAR 100 UNITS/ML 3 ML PEN SC SCH ×2 (10:01→21:18)
[2018-07-13] MEDS: DOXYCYCLINE HYCLATE 100 MG CAP PO SCH ×2 (10:04→21:26)
[2018-07-13] MEDS: FERROUS SULFATE 325 MG TAB PO SCH (13:20)
--- NOTE | 2018-07-13 15:15 | Hospitalist Progress Note ---
Date of Service July 13, 2018 Assessment & Plan (1) Angelica UTI: - H/o fungal UTIs; UC 06/23 showed >100K colonies Angelica glabrata. - Consulted urology, no intervention indicated. - Consulted ID - 3 way continuous bladder irrigation with Amphotericin B (End date: 07/13/2018) - Continue Caspofungin IV for additional coverage (End date: 07/15/2018) -Per ID - patient should have repeat urine culture in a week following end of abx (2) CAD (coronary artery disease): - H/o NSTEMI in February 2017. - Continue Atorvastatin 40 mg daily, Metoprolol 50 mg daily, Plavix and Aspirin. (3) HTN (hypertension): - Continue Metoprolol 50 mg daily, Lisinopril 2.5 mg daily as prescribed. (4) Ischemic cardiomyopathy: - Echo showed EF 35-40% in May 2017; repeat TTE November 2017 showed EF 55 %. (5) Chronic combined systolic and diastolic CHF (congestive heart failure): - TTE May 2017 showed EF 35-40%, grade I diastolic dysfunction. - TTE November 2017 showed EF 55%, grade II diastolic dysfunction & normal systolic function -- systolic HF now resolved. - Continue Metoprolol 50 mg daily, Lisinopril 2.5 mg daily. - Monitor for evidence of fluid overload. (6) Anemia of chronic disease: - History of anemia; hgb is currently ~10 during this admission. - Had positive occult stool in February 2017; negative occult stool in May 2017. - Was evaluated by GI in May 2017; recommended EGD and colonoscopy but procedures were never completed. - B12 level 1562 in May 2018; repeat B12 and Folate levels wnl - Iron low - initiated iron replacement (7) Hyperlipidemia: - Continue Atorvastatin 40 mg daily as prescribed. (8) Stage III pressure ulcer of left heel: - Admitted in December 2017 for left heel ulcer, wound culture +MRSA and Pseudomonas. - Follows with ID, consulted as inpt. - Continue Doxycycline 100 mg PO BID. - Consulted wound care, clean area with saline and cover with Zara and dressing QOD. (9) Type II diabetes mellitus: - Holding home Metformin 500 mg BID, Glimepiride 2 mg daily. - Most recent A1C 12.8 in May 2018. - Pt. was not using short acting insulin prior to admission, only Lantus 40 units daily. - Consulted pharmacy for glycemic management due to uncontrolled levels. (10) Acute kidney injury: - Creatinine now improved - Holding IV fluids in setting of HF. (11) Chronic kidney disease, stage III (moderate): - Monitor renal function closely. - Avoid nephrotoxic agents. (12) BPH (benign prostatic hyperplasia): - Continue Flomax 0.4 mg daily as prescribed. (13) Elevated alkaline phosphatase level: - Alk Phos level elevated since admission (prior to receiving Caspo IV); all other LFTs WNL. - May be related to underlying liver disease -- Liver US showed mild enlargement , trace perihepatic ascites and gallbladder filled with shadowing gallstones ( consider HIDA scan). Will hold off on further imaging for now unless patient develops symptoms - GGT elevated indicating liver source - should have follow up outpatient (14) Vitamin D deficiency: - Continue Vit D as prescribed. - Most recent Vit D level 20.6 in May 2018. (15) DVT prophylaxis: - Heparin 5,000 units BID. Dispo: [facility] -- is appropriate for discharge to [facility] tomorrow after bladder irrigation is completed FULL CODE Subjective Mr. Patel has no complaints. Resting comfortably in bed. Denies nausea or abdominal pain Review of Systems All systems reviewed & are unremarkable except as noted in HPI & below Physical Exam 2 Vital Signs (Past 24 Hours): Last Vital Signs Temp 36.6 C 07/13/18 07:52 Pulse 80 07/13/18 07:52 Resp 18 07/13/18 07:52 BP 134/75 07/13/18 07:52 Pulse Ox 92 07/13/18 07:52 Physical Exam: General: no distress Eyes: normal inspection, PERLL Respiratory: chest non tender, clear to auscultation, normal breath sounds, no respiratory distress, no accessory muscle use Cardiac: regular rate and rhythm, no rub or gallop, no murmur, no edema, no jvd GI/: active bowel sounds, no abd pain or tenderness, soft, non distended Extremities: normal range of motion, normal strength, non tender Neuro/Psych: alert and oriented x 3, normal mood and affect Skin: normal color, dry Results & Data Laboratory Results Abnormal lab results 07/11/18 07/12/18 07/12/18 Range/Units 09:12 17:14 20:24 BUN (7-18) mg/dl POC Glucose 123 H 199 H (70-99) GGT 287 H (3-70) U/L Alkaline Phosphatase (45-117) U/L Albumin (3.4-5.0) gm/dl Globulin (2.5-4.0) gm/dl Albumin/Globulin Ratio (0.9-2) 07/13/18 07/13/18 Range/Units 07:41 12:03 BUN 22 H (7-18) mg/dl POC Glucose 172 H (70-99) GGT (3-70) U/L Alkaline Phosphatase 224 H (45-117) U/L Albumin 2.5 L (3.4-5.0) gm/dl Globulin 4.3 H (2.5-4.0) gm/dl Albumin/Globulin Ratio 0.6 L (0.9-2)
[2018-07-13] MEDS: ACETAMINOPHEN 325 MG TAB PO PRN (16:03)
[2018-07-13] MEDS ORDERED: AMPHOTERICIN B 50 MG in WATER, STERILE 1,000 ML IR SCH (18:00)
[2018-07-13] MEDS ORDERED: AMPHOTERICIN B 50 MG in WATER, STERILE 1,000 ML IR ONE (18:00)
[2018-07-13] MEDS: CASPOFUNGIN 50 MG in SODIUM CHLORIDE 0.9% 250 ML IV SCH (21:26)
[2018-07-13] MEDS: TAMSULOSIN HCL 0.4 MG CAP PO SCH (21:26)
[2018-07-13] MEDS: ATORVASTATIN 40 MG TAB PO SCH (21:26)
[2018-07-14 07:06] LABS: Hematocrit (blood only) 35.3 % (42-52); Hemoglobin 11.1 g/dL (14.0-18.0); Mean Corpuscular Hgb Conc 31.4 g/dL (32-36); Mean Corpuscular Volume 95.1 fL (80-100); Mean Platelet Volume 9.6 fL (7.4-10.4); Platelet Count 314 K/uL (130-400); RDW Coefficient of Variation 14.8 % (11.5-14.5); RDW Standard Deviation 51.8 fL (36.4-46.3); Red Blood Count 3.71 M/uL (4.7-6.1); White Blood Count 6.81 K/uL (4.8-10.8)
[2018-07-14] MEDS: INSULIN ASPART 100 UNITS/ML 3 ML PEN SC SCH ×4 (09:01→21:15)
[2018-07-14] MEDS: HEPARIN SOD 5,000 UNIT/0.5 ML VIAL SQ SCH ×2 (09:02→21:14)
[2018-07-14] MEDS: INSULIN GLARGINE SOLOSTAR 100 UNITS/ML 3 ML PEN SC SCH ×2 (09:02→21:14)
[2018-07-14] MEDS: LISINOPRIL 2.5 MG TAB PO SCH (09:04)
[2018-07-14] MEDS: DOXYCYCLINE HYCLATE 100 MG CAP PO SCH ×2 (09:04→21:17)
[2018-07-14] MEDS: METOPROLOL SUCC 50MG EXT REL TAB PO SCH (09:04)
[2018-07-14] MEDS: CHOLECALCIFEROL 1,000 UNITS TAB PO SCH (09:04)
[2018-07-14] MEDS: FOLIC ACID 1 MG TAB PO SCH (09:05)
[2018-07-14] MEDS: ASPIRIN 81 MG ECTAB PO SCH (09:05)
[2018-07-14] MEDS: CLOPIDOGREL BISULFATE 75 MG TAB PO SCH (09:05)
[2018-07-14] MEDS: FERROUS SULFATE 325 MG TAB PO SCH (09:05)
[2018-07-14] MEDS: CYANOCOBALAMIN 500 MCG TABLET (VITAMIN B-12) PO SCH (09:05)
--- NOTE | 2018-07-14 13:19 | Pharmacy Report ---
Pharmacy Glycemic Short Note 2 - Date of Service July 14, 2018 - Glycemic Short BSG Results (Last 24 hours): 07/13/18 07/13/18 07/14/18 17:13 20:53 08:04 POC Glucose 138 H 171 H 80 07/14/18 12:11 POC Glucose 150 H ASSESSMENT: * Mr. Patel's BSGs over the previous 24hrs have been fairly well controlled. [phone]/dL, he required 41 units of insulin yesterday, 07/13/18. He is largely basal heavy. * He is being treated for a cUTI, minimal other RF for insulin resistance at this juncture * Nil acute changes in insulin requirements at this point in time PLAN FOR INPATIENT GLYCEMIC CONTROL: * Hold outpatient oral diabetes medications * Basal insulin * Lantus scale SQ BID * BSGs <180mg/dL give 10 units * BSGs >/=180mg/dL give 15 units * Bolus insulin * NovoLog per scale ACHS or Q6hrs while NPO * Goal Range: Low 120 mg/dL - High 150 mg/dL * Correction Factor: 35 mg/dL/unit * Nutritional / Prandial insulin per carb ratio of 1 unit per 7 grams CHO consumed
--- NOTE | 2018-07-14 15:47 | Hospitalist Progress Note ---
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 - Consulted urology, no intervention indicated. - Consulted ID - 3 way continuous bladder irrigation with Amphotericin B (End date: 07/13/2018 with dose infusing to end of day 07/14) - Continue Caspofungin IV for additional coverage (End date: 07/15/2018) -Per ID - patient should have repeat urine culture in a week following end of abx (2) CAD (coronary artery disease): - H/o NSTEMI in February 2017. - Continue Atorvastatin 40 mg daily, Metoprolol 50 mg daily, Plavix and Aspirin. (3) HTN (hypertension): - Continue Metoprolol 50 mg daily, Lisinopril 2.5 mg daily as prescribed. (4) Ischemic cardiomyopathy: - Echo showed EF 35-40% in May 2017; repeat TTE November 2017 showed EF 55 %. (5) Chronic combined systolic and diastolic CHF (congestive heart failure): - TTE May 2017 showed EF 35-40%, grade I diastolic dysfunction. - TTE November 2017 showed EF 55%, grade II diastolic dysfunction & normal systolic function -- systolic HF now resolved. - Continue Metoprolol 50 mg daily, Lisinopril 2.5 mg daily. - Monitor for evidence of fluid overload. (6) Anemia of chronic disease: - History of anemia; hgb is currently ~10 during this admission. - Had positive occult stool in February 2017; negative occult stool in May 2017. - Was evaluated by GI in May 2017; recommended EGD and colonoscopy but procedures were never completed. - B12 level 1562 in May 2018; repeat B12 and Folate levels wnl - Iron low - initiated iron replacement (7) Hyperlipidemia: - Continue Atorvastatin 40 mg daily as prescribed. (8) Stage III pressure ulcer of left heel: - Admitted in December 2017 for left heel ulcer, wound culture +MRSA and Pseudomonas. - Follows with ID, consulted as inpt. - Continue Doxycycline 100 mg PO BID. - Consulted wound care, clean area with saline and cover with Zara and dressing QOD. (9) Type II diabetes mellitus: - Holding home Metformin 500 mg BID, Glimepiride 2 mg daily. - Most recent A1C 12.8 in May 2018. - Pt. was not using short acting insulin prior to admission, only Lantus 40 units daily. - Consulted pharmacy for glycemic management due to uncontrolled levels. (10) Acute kidney injury: - Creatinine now improved - Holding IV fluids in setting of HF. (11) Chronic kidney disease, stage III (moderate): - Monitor renal function closely. - Avoid nephrotoxic agents. (12) BPH (benign prostatic hyperplasia): - Continue Flomax 0.4 mg daily as prescribed. (13) Elevated alkaline phosphatase level: - Alk Phos level elevated since admission (prior to receiving Caspo IV); all other LFTs WNL. - May be related to underlying liver disease -- Liver US showed mild enlargement , trace perihepatic ascites and gallbladder filled with shadowing gallstones ( consider HIDA scan). Will hold off on further imaging for now unless patient develops symptoms - GGT elevated indicating liver source - should have follow up outpatient (14) Vitamin D deficiency: - Continue Vit D as prescribed. - Most recent Vit D level 20.6 in May 2018. (15) DVT prophylaxis: - Heparin 5,000 units BID. Dispo: [facility] -- bladder irrigation finished this evening and then [facility] tomorrow. FULL CODE (16) Constipation: miralax today with no effect, will provide suppository Subjective Patient reports feeling unwell today due to lack of bowel movement over the last few days. Review of Systems All systems reviewed & are unremarkable except as noted in HPI & below Physical Exam 2 Vital Signs (Past 24 Hours): Last Vital Signs Temp 37.1 C 07/14/18 15:10 Pulse 82 07/14/18 15:10 Resp 20 07/14/18 15:10 BP 146/80 H 07/14/18 15:10 Pulse Ox 93 07/14/18 15:10 Physical Exam: General: no distress Eyes: normal inspection, PERLL Respiratory: chest non tender, clear to auscultation, normal breath sounds, no respiratory distress, no accessory muscle use Cardiac: regular rate and rhythm, no rub or gallop, no murmur, no edema, no jvd GI/: active bowel sounds, no abd pain or tenderness, soft, non distended Extremities: normal range of motion, normal strength, non tender Neuro/Psych: alert and oriented x 3, normal mood and affect Skin: normal color, dry, left heel wound without erythema, small amount of serosanguineous drainage, no odor Results & Data Laboratory Results Abnormal lab results 07/13/18 07/13/18 07/14/18 Range/Units 17:13 20:53 06:55 RBC 3.71 L (4.7-6.1) M/uL Hgb 11.1 L (14.0-18.0) g/dL Hct 35.3 L (42-52) % MCHC 31.4 L (32-36) g/dL RDW Std Deviation 51.8 H (36.4-46.3) fL RDW Coeff of Clarissa 14.8 H (11.5-14.5) % POC Glucose 138 H 171 H (70-99) 07/14/18 Range/Units 12:11 RBC (4.7-6.1) M/uL Hgb (14.0-18.0) g/dL Hct (42-52) % MCHC (32-36) g/dL RDW Std Deviation (36.4-46.3) fL RDW Coeff of Clarissa (11.5-14.5) % POC Glucose 150 H (70-99)
[2018-07-14] MEDS ORDERED: BISACODYL 10 MG SUPP PR STA (15:52)
[2018-07-14] MEDS: CASPOFUNGIN 50 MG in SODIUM CHLORIDE 0.9% 250 ML IV SCH (19:36)
[2018-07-14] MEDS: ATORVASTATIN 40 MG TAB PO SCH (21:17)
[2018-07-14] MEDS: TAMSULOSIN HCL 0.4 MG CAP PO SCH (21:17)
[2018-07-15] MEDS ORDERED: POLYETHYLENE (MIRALAX) 17 GM PACK PO ONE (09:08)
[2018-07-15 09:25] LABS: BUN Creatinine Ratio 17.7 (10-20); Blood Urea Nitrogen 22 mg/dl (7-18); Calcium 8.9 mg/dl (8.5-10.1); Carbon Dioxide 27 mmol/L (21-32); Chloride 108 mmol/L (98-107); Est GFR (African American) 67.8; Est GFR (Non-African American) 58.5; Glucose 111 mg/dl (70-99); Potassium 3.8 mmol/L (3.5-5.1); Sodium 140 mmol/L (136-145)
[2018-07-15] MEDS: INSULIN ASPART 100 UNITS/ML 3 ML PEN SC SCH ×2 (09:32→13:16)
[2018-07-15] MEDS: INSULIN GLARGINE SOLOSTAR 100 UNITS/ML 3 ML PEN SC SCH (09:33)
[2018-07-15] MEDS: HEPARIN SOD 5,000 UNIT/0.5 ML VIAL SQ SCH (09:35)
[2018-07-15] MEDS: DOXYCYCLINE HYCLATE 100 MG CAP PO SCH (09:37)
[2018-07-15] MEDS: METOPROLOL SUCC 50MG EXT REL TAB PO SCH (09:37)
[2018-07-15] MEDS: CLOPIDOGREL BISULFATE 75 MG TAB PO SCH (09:37)
[2018-07-15] MEDS: CHOLECALCIFEROL 1,000 UNITS TAB PO SCH (09:38)
[2018-07-15] MEDS: LISINOPRIL 2.5 MG TAB PO SCH (09:38)
[2018-07-15] MEDS: ASPIRIN 81 MG ECTAB PO SCH (09:38)
[2018-07-15] MEDS: FERROUS SULFATE 325 MG TAB PO SCH (09:38)
[2018-07-15] MEDS: FOLIC ACID 1 MG TAB PO SCH (09:39)
[2018-07-15] MEDS: CYANOCOBALAMIN 500 MCG TABLET (VITAMIN B-12) PO SCH (09:39)
--- NOTE | 2018-07-15 10:54 | Discharge Summary ---
Date of Service July 15, 2018 Admission HPI Per Admitting Provider Mr. Patel is a 68 year old male with past medical history of CKD, chronic systolic CHF, DM, HTN, HLD, BPH with recent prolonged chronic indwelling hallman and recurrent UTI's who presents with a positive urine culture (Angelica glabrata ). He has a history of fungal UTIs, most recently admitted in Jul - Aug 2017 for acute pyelonephritis related to yeast infection. He received a 5 day course of bladder irrigation with Amphotericin B along with Caspofungin IV. He was admitted in December 2017 for a left heel ulcer with wound culture +MRSA and Pseudomonas requiring IV antibiotics. Patient follows with ID, Dr. Wood, and is currently taking Doxycycline. He was evaluated by urology on 06/23; pt. refused chronic indwelling hallman or intermittent straight caths in setting of PVR. He started Methanamine 1 gm PO daily for coverage of infection. He presented to the ED on 07/01 for positive urine culture after appointment with ID but was discharged to home after discussion with Dr. Marrero. He followed up with Dr. Marrero today and was instructed to come to the ER for further evaluation. Patient reports feeling well overall. He denies fever/chills, dysuria, hematuria , urinary frequency or hesitancy at home. Denies URI symptoms, chest pain, SOB, LE edema, nausea or vomiting, diarrhea or constipation. When asked why he was sent to the ER by urology, patient states "you know better than I do". He also does not know specific med history and states he has a home nurse for med management. Left foot wound has dressing but has been overdue for a dressing changes x 72 hours. He went to the wound clinic 4 days ago and states they were closed. On examination, dressing has significant discharge. Principal Diagnosis Fungal UTI Discharge Exam Constitutional WD/WN, vitals as above Respiratory normal respiratory effort, lungs clear to auscultation Cardiovascular RRR, no murmur, no edema Gastrointestinal (Abdomen) normal bowel sounds, soft, nontender, no hepatosplenomegaly Musculoskeletal no cyanosis or clubbing, extremities motor strength 5/5 Skin no rashes, warm and dry left heel chronic ulceration Neurologic moves all extremities and awake Psychiatric A+Ox3, euthymic affect Discharge Data Allergies Allergy/AdvReac Type Severity Reaction Status Date / Time poliomyelitis vaccine, live Allergy Unknown Unknown Verified 07/01/18 13:15 oral Consultations 07/08/18 17:16 Consult Infectious Diseases Routine Consult Urology Routine Ordered Studies 07/11/18 08:54 US liver Routine Hospital Course (1) Angelica UTI: - H/o fungal UTIs; UC 06/23 showed >100K colonies Angelica glabrata. - Consulted urology, no intervention indicated. - Consulted ID - 3 way continuous bladder irrigation with Amphotericin B (End date: 07/13/2018 with dose infusing to end of day 07/14) - Caspofungin IV for additional coverage (End date: 07/15/2018) -Per ID - patient should have repeat urine culture in a week following end of abx - patient has had chronic Hallman in the past but did not at admission, per urology rec, dc Hallman after irrigation (2) CAD (coronary artery disease): - H/o NSTEMI in February 2017. - Continue Atorvastatin 40 mg daily, Metoprolol 50 mg daily, Plavix and Aspirin. (3) HTN (hypertension): - Continue Metoprolol 50 mg daily, Lisinopril 2.5 mg daily as prescribed. (4) Ischemic cardiomyopathy: - Echo showed EF 35-40% in May 2017; repeat TTE November 2017 showed EF 55 %. (5) Chronic combined systolic and diastolic CHF (congestive heart failure): - TTE May 2017 showed EF 35-40%, grade I diastolic dysfunction. - TTE November 2017 showed EF 55%, grade II diastolic dysfunction & normal systolic function -- systolic HF now resolved. - Continue Metoprolol 50 mg daily, Lisinopril 2.5 mg daily. (6) Anemia of chronic disease: - History of anemia; hgb is currently ~10 during this admission. - Had positive occult stool in February 2017; negative occult stool in May 2017. - Was evaluated by GI in May 2017; recommended EGD and colonoscopy but procedures were never completed. - B12 level 1562 in May 2018; repeat B12 and Folate levels wnl - Iron low - initiated iron replacement (7) Hyperlipidemia: - Continue Atorvastatin 40 mg daily as prescribed. (8) Stage III pressure ulcer of left heel: - Admitted in December 2017 for left heel ulcer, wound culture +MRSA and Pseudomonas. - Follows with ID, consulted as inpt. - Continue Doxycycline 100 mg PO BID. - Consulted wound care, clean area with saline and cover with Zara and dressing QOD. (9) Type II diabetes mellitus: - Held home Metformin 500 mg BID and Glimepiride 2 mg daily - can restart at pr - Most recent A1C 12.8 in May 2018. - Pt. was using only small amount of short acting insulin prior to admission, only Lantus 40 units daily. However, he has only required 40 - 50 units per day while in patient, which is about what he was taking outpatient in addition to metformin and glipizide, so I am hesitant to up his regimen while at [facility] in a controlled environment. He will need to work with his outpatient provider to find a more controlled regimen once he is home and eating his normal diet. - Consulted pharmacy for glycemic management due to uncontrolled levels while inpatient (10) Acute kidney injury: - Creatinine now improved - Holding IV fluids in setting of HF. (11) Chronic kidney disease, stage III (moderate): - Monitor renal function closely. - Avoid nephrotoxic agents. (12) BPH (benign prostatic hyperplasia): - Continue Flomax 0.4 mg daily as prescribed. (13) Elevated alkaline phosphatase level: - Alk Phos level elevated since admission (prior to receiving Caspo IV); all other LFTs WNL. - May be related to underlying liver disease -- Liver US showed mild enlargement , trace perihepatic ascites and gallbladder filled with shadowing gallstones ( consider HIDA scan). Will hold off on further imaging for now unless patient develops symptoms - GGT elevated indicating liver source - should have follow up outpatient (14) Vitamin D deficiency: - Continue Vit D as prescribed. - Most recent Vit D level 20.6 in May 2018. (15) DVT prophylaxis: - Heparin 5,000 units BID while inpatient Dispo: [facility] FULL CODE (16) Constipation: miralax, stool softeners. Small bm 1/10 Total Time Total Time Spent Total Time Spent (In Minutes): >30 minutes Total Time Includes: Examination of the Patient, Discharge Planning, Medication Reconciliation and Communication With Other Providers Discharge Plan Discharge Items Patient Disposition: Transfer Inpatient Rehab Fac Reason For Visit: FUNGAL UTI Discharge Diagnosis: Fungal UTI Discharge Goals: Improve disease control Activity: Resume your previous activity Activity Comment: gradually as tolerated Non-emergency contact: Primary Care Provider Call non-emergency contact if: you have any medication questions, your symptoms worsen, your pain is not controlled and your pain is worsening Follow-up/Referrals: Gray Marrero MD [Physician] - 08/18/18 3:00 pm (Please, follow up at [facility] Urology Office with Dr. Marrero on ThursdayAugust 18 at 3:00 pm. *This office is located at [address] [place] [address] in [place]. If you need to change this appointment, call the office at [phone].) Hayley Watson MD [Primary Care Provider] - Diet: Carb Consistent or DM2 and Heart Healthy Addtl Provider Instructions: Please follow up with infectious disease within a week. Doxycycline can cause photosensitivity so please use sunscreen or cover ups and sunglasses when outside until you have finished your course. You should also avoid taking the medication with dairy products. Doxycycline can cause gastrointestinal discomfort and nausea, you can try taking the medication with food to avoid this effect. Do not take bismuth (Pepto-Bismol), calcium, iron, magnesium, zinc, multivitamins with minerals, colestipol, cholestyramine, didanosine, or antacids within 2 hours of this drug.Take with a full glass of water. Do not lie down for at least 30 minutes after taking this drug. Please discuss duration of doxycycline therapy at your ID appt next week. Do not discontinue until ID says it's ok For foot wound - clean area with saline and cover with Zara and dressing QOD. Prescriptions: New doxycycline hyclate 100 mg Capsule 100 mg PO BID 14 Days Qty: 28 RF: 0 ferrous sulfate 325 mg (65 mg iron) Tablet,Delayed Release (Dr/Ec) 325 mg PO QAM 30 Days Qty: 30 RF: 0 Continue aspirin [Adult Aspirin Regimen] 81 mg tablet,delayed release (DR/EC) 81 mg PO DAILY RF: 0 atorvastatin [Lipitor] 40 mg tablet 40 mg PO .q hs RF: 0 clopidogrel [Plavix] 75 mg tablet 75 mg PO DAILY RF: 0 folic acid 1 mg tablet 1 mg PO DAILY RF: 0 glimepiride 2 mg tablet 2 mg PO QAM RF: 0 lisinopril [Zestril] 2.5 mg tablet 2.5 mg PO DAILY RF: 0 insulin glargine [Lantus U-100 Insulin] 100 unit/mL solution 40 units SQ DAILY RF: 0 cyanocobalamin (vitamin B-12) [Vitamin B-12] 1,000 mcg tablet 1,000 mcg PO DAILY RF: 0 insulin aspart U-100 [Novolog Flexpen U-100 Insulin] 100 unit/mL insulin pen 5 units SQ TID RF: 0 magnesium oxide 400 mg capsule 400 mg PO BID RF: 0 metformin 500 mg tablet 500 mg PO BID RF: 0 methenamine hippurate 1 gram tablet 1 gm PO BID RF: 0 metoprolol succinate 50 mg capsule,sprinkle,ER 24hr 50 mg PO DAILY RF: 0 polyethylene glycol 3350 [Miralax] 17 gram/dose powder See Patient Comments PO DAILY PRN (Reason: Constipation) RF: 0 sennosides [Senokot] 8.6 mg tablet 8.6 mg PO DAILY PRN (Reason: Constipation) RF: 0 tamsulosin [Flomax] 0.4 mg capsule 0.4 mg PO .q hs RF: 0 multivitamin Tablet 1 tab PO DAILY RF: 0 acetaminophen [Tylenol Extra Strength] 500 mg Tablet 500 mg PO Q12 PRN (Reason: Pain) RF: 0 cholecalciferol (vitamin D3) [Vitamin D3] 5,000 unit Tablet 5,000 unit PO DAILY RF: 0 Stand-Alone Forms: [facility] Discharge Orders: Discharge Order (Routine); Ordered 07/15/18 Ordered By: Margarita Thomas Skilled Items Patient informed of condition?: Yes DNR: No Discharge Level of Care: Acute rehab Communicable Disease: Yes (pseudomonas and MRSA in left foot wound ) Discharge Prognosis: Stable Admission Data Admit Date/Time: 07/08/18 17:15 Attending Provider: Cain Patel Admit Provider: Starla Beaulieu Primary Care Provider: Hayley Watson V. Other Providers: Saurav Garcia ; Grace Avalos ; Margarita Thomas Service: Medical Other Interventions: Discharge Summary Assessment (RN) Last Done: 07/15/18 08:23
== END 2018-07-15 14:33 | DRG 727 ==
LOC: 3W 17:15 → SUATTDRO 17:15

== ENCOUNTER 2018-09-05 23:27 | Inpatient (IN) ==
[2018-09-05 23:57] LABS: Basophils # (auto) 0.01 K/uL (0-0.2); Basophils % (auto) 0.1 %; Eosinophils # (auto) 0.08 K/uL (0-0.5); Eosinophils % (auto) 0.9 %; Hematocrit (blood only) 39.9 % (42-52); Hemoglobin 12.6 g/dL (14.0-18.0); Immature Granulocytes # (auto) 0.05 K/uL (0.00-0.02); Immature Granulocytes % (auto) 0.6 %; Lymphocytes # (auto) 0.81 K/uL (1.2-3.4); Lymphocytes % (auto) 9.5 %; Mean Corpuscular Hgb Conc 31.6 g/dL (32-36); Mean Corpuscular Volume 98.5 fL (80-100); Mean Platelet Volume 10.2 fL (7.4-10.4); Monocytes # (auto) 0.54 K/uL (0.11-0.59); Monocytes % (auto) 6.3 %; Neutrophils # (auto) 7.04 K/uL (1.4-6.5); Neutrophils % (auto) 82.6 %; Platelet Count 249 K/uL (130-400); RDW Coefficient of Variation 15.8 % (11.5-14.5); RDW Standard Deviation 57.7 fL (36.4-46.3); Red Blood Count 4.05 M/uL (4.7-6.1); White Blood Count 8.53 K/uL (4.8-10.8)
[2018-09-06] MEDS ORDERED: PIPERACILL/TAZOBAC CONSULT ACTIVE PRN ×2 (00:06→04:38)
[2018-09-06] MEDS ORDERED: VANCOMYCIN CONSULT ACTIVE PRN ×3 (00:06→20:51)
[2018-09-06] MEDS ORDERED: PIPERACILLIN/TAZOBACTAM 4.5 GM/120 ML BAG IV ONE (00:06)
[2018-09-06] MEDS ORDERED: VANCOMYCIN HCL 2,000 MG in SODIUM CHLORIDE 0.9% 500 ML IV ONE (00:06)
[2018-09-06 00:17] LABS: Alanine Aminotransferase 39 U/L (12-78); Albumin Level 3.5 gm/dl (3.4-5.0); Aspartate Aminotransferase 41 U/L (15-37); BUN Creatinine Ratio 23.8 (10-20); Bilirubin Direct 0.2 mg/dl (0-0.2); Blood Urea Nitrogen 29 mg/dl (7-18); Calcium 8.6 mg/dl (8.5-10.1); Carbon Dioxide 26 mmol/L (21-32); Chloride 108 mmol/L (98-107); Creatinine Clr Calc Pharmacy 69.8 ml/min; Est GFR (African American) 70.6; Est GFR (Non-African American) 60.9; Glucose 102 mg/dl (70-99); Magnesium 2.4 mg/dl (1.8-2.4); Potassium 4.4 mmol/L (3.5-5.1); Sodium 141 mmol/L (136-145)
[2018-09-06 00:21] LABS: Alkaline Phosphatase 197 U/L (45-117); Bilirubin,Total 0.6 mg/dl (0.2-1); Creatine Kinase 130 U/L (39-308); NT Pro B Type Natriuretic Pept 562 pg/ml (0-900); Troponin I < 0.015 ng/ml (0-0.045)
[2018-09-06] MEDS ORDERED: DEXTROSE 50% 50 ML SYRINGE IV ONE ×3 (00:42→05:02)
[2018-09-06] MEDS ORDERED: SODIUM CHLORIDE 0.9% 1000ML 1,000 ML IV ONE ×2 (02:29→02:42)
[2018-09-06] MEDS ORDERED: SODIUM CHLORIDE 0.9% 1000ML 1,000 ML IV SCH (02:30)
[2018-09-06] MEDS ORDERED: ICU PROTOCOL FOR HYPERGLYCEMIA PRN ×2 (03:15→04:38)
[2018-09-06] MEDS ORDERED: ACETAMINOPHEN 325 MG TAB PO PRN (03:25)
--- NOTE | 2018-09-06 03:47 | History & Physical Report ---
Date of Service September 06, 2018 Assessment & Plan (1) Altered mental status: 68 y/o M Hx combined CHF, CAD, DM II, CKD III, HTN, HLD, BPH with chronic retention, chronic dietary noncompliance. recently admitted for a fungal UTI an being treated as outpt for a L heal ulcer. Presents with AMS, hypothermia, hypoglycemia and became hypotensive while in the ER as well. He was hanging out on a couch in the lobby of the [facility] when h slouched over and became poorly responsive. He could not provide any helpful information although he was barely arousable and responded yes/no to some questions. Initial imaging demonstrates a RLL PNM. Labs are unremarkable. There is mild lipase and AST elevation with a normal lactic and an equivocal UA. 1) AMS related to hypoglycemia initially. There has been improvement with correction of glucose. He will proceed to the ICU due to unstable vital signs. He is placed on D10 with Q1H POC, PRN glucagon and/or D50 and received a dose of steroids as well. 2) Hypothermia - likely due to hypoglycemia and possibly evolving sepsis. warming blanket has been effective in improving his temp which was an impressive 32.2 on arrival. > 34 on transfer to the unit. 3) Hypotension ensued after rearming and may have been related to vasodilation rather than sepsis. He has responded to IVF with mild improvement. We will monitor for pressor use if needed. He is receiving additional IVF and his pressure bears monitoring due to his CHF history. We have also administered steroids and requested a random cortisol as adrenal insufficiency, while unlikely, would tie all the presenting signs together nicely. 4) PNM - unclear at present if he developed PNM which precipitated his PNM or possibly aspirated while lying on his R side at the [facility]. Lactic is WNL and he did not apparently have any resp issues prior to hypoglycemia and resulting hypothermia/AMS. As his vitals are critical and he has recently been admitted to the hospital, we have started him on Vanc, Zosyn, Doxy pending culture results. A repeat CXR is ordered for AM. He has not required 02. 5) DM II - hypoglycemia as above - precludes treatment at present. 6) BPH with retention - recet fungal UTI - equivocal UA - no additional treatment to above antibiotics pending culture result. Cont Flomax when pressure stabilizes. 7) CHF - requires volume monitoring as he has received 2+ L IVF. Resume B callie, KORI when tolerated - does not presently require diuretics. 8) CAD - no evidence of ACS - cont ASA, Plavix, Statin for now. Full code - Heparin prophylaxis Total time for this admit including review of labs, meds, imaging, extensive records - discussion with pt (as possible) and ER attending - 49 min History of Present Illness Chief Complaint: 68 y/o M Hx combined CHF, CAD, DM II, CKD III, HTN, HLD, BPH with chronic retention, chronic dietary noncompliance. recently admitted for a fungal UTI an being treated as outpt for a L heal ulcer. Presents with AMS, hypothermia, hypoglycemia and became hypotensive while in the ER as well. He was hanging out on a couch in the lobby of the [facility] when h slouched over and became poorly responsive. He could not provide any helpful information although he was barely arousable and responded yes/no to some questions. Initial imaging demonstrates a RLL PNM. Labs are unremarkable. There is mild lipase and AST elevation with a normal lactic and an equivocal UA. PMH: 1) CHF - combined - EF 35-40% - grade I diastolic dysfunction. 2) Fungal UTI requiring intravesicular Amphoteracin 3) Nonhealing ulcer of LLE - cultured + for pseudomonas and MRSA in past 4) CKD III 4) BPH with chronic retention - advised on Miller use which he refused 5) DM II 6) Poor medical and dietary compliance 7) CAD Surgical: Limited to a tonsillectomy Social: Distant history of smoking and alcohol abuse. Family: Could not provide a family history. Primary Care Provider: Hayley Watson MD Allergies Allergy/AdvReac Type Severity Reaction Status Date / Time poliomyelitis vaccine, live Allergy Unknown Unknown Verified 09/03/18 08:07 oral Home Medications Home Medications Medication Instructions Recorded Confirmed Type aspirin 81 mg tablet,delayed 81 mg PO DAILY 03/02/18 09/06/18 History release atorvastatin 40 mg tablet 40 mg PO HS tab 03/02/18 09/06/18 History clopidogrel 75 mg tablet 75 mg PO DAILY 03/02/18 09/06/18 History cyanocobalamin (vit B-12) 1,000 1,000 mcg PO DAILY 03/02/18 09/06/18 History mcg tablet folic acid 1 mg tablet 1 mg PO DAILY 03/02/18 09/06/18 History glimepiride 2 mg tablet 2 mg PO QAM 03/02/18 09/06/18 History insulin aspart U- 100 100 unit/mL 5 units SQ TIDM ml 03/02/18 09/06/18 History subcutaneous pen insulin glargine (U- 100) 100 35 units SQ DAILY ml 03/02/18 09/06/18 History unit/mL subcutaneous solution lisinopril 2.5 mg tablet 2.5 mg PO DAILY 03/02/18 09/06/18 History magnesium oxide 400 mg capsule 400 mg PO DAILY cap 03/02/18 09/06/18 History metoprolol succinate ER 50 mg 50 mg PO DAILY ea 03/02/18 09/06/18 History capsule sprinkle, ext. 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 He answered "no" to everything until I asked him if he was very tired, to which he answered "yes". Physical Exam Vital Signs (Past 24 Hours): Last Vital Signs Temp 34 C L 09/06/18 03:38 Pulse 62 09/06/18 03:38 Resp 16 09/06/18 03:38 BP 91/62 L 09/06/18 03:38 Pulse Ox 97 09/06/18 03:38 Physical Exam: General: Somnolent, poorly responsive, elderly M - no distress ENT: No erythema or exudates, no thrush Eyes: NIKO, EOMI Head and neck: Normocephalic, atraumatic, No JVD, neck is supple. Chest/heart: Nontender, S1,2, RRR, no murmurs, no gallops Lungs: There is no audible air entry into the R base - effort is poor - L lung is clear. Abdomen: Nontender, nondistended, BS+ Neuro: He is somnolent but moves all extrems and is able to say "no" clearly Musculoskeletal: No joint inflammation, muscle tenderness, FROM Skin: No acute rashes - shallow ulcer L heel - no apparent acute infection. Extremities: No clubbing, cyanosis, edema
[2018-09-06] MEDS ORDERED: HYDROCORTISONE SOD SUCCINATE 100 MG/2 ML VIAL IV STA (04:38)
[2018-09-06] MEDS ORDERED: VANCOMYCIN HCL 1,000 MG in SODIUM CHLORIDE 0.9% 250 ML IV SCH (04:38)
--- NOTE | 2018-09-06 04:51 | Emergency Department Note ---
Entered by Ar Bourne acting as a scribe for Vinicius Blake MD ED Provider Note Name: Chava Patel Age: 68 Arrives Via: EMS Informant: EMS and Patient CC: Hypoglycemia HPI: The patient is a 68 year old male who presents to the Emergency Room via EMS with an altered mental status and hypoglycemia that started tonight about 3 hours ago. Per EMS, he fell off of a couch at the [facility] before they were called. Since they arrived he has been very altered, diaphoretic, lightheaded, confused, and weak but he did not have any one sided deficits. Per EMS the patient also fell about 2 days ago but has no injury from that. When EMS arrived his BSG was 42 and the last blood sugar read was 110. He has been hypertensive the entire time, being as high as 208/110, but averaging around 180/100. Nothing makes better, treatment en route made this better. En route the patient received D10, 250 of saline, and orange juice. The patient has not eaten since yesterday and he typically lives alone and drives. Currently he denies any headaches, chest pain, abdominal pain, or alcohol use but he is short of breath. ROS: See above HPI for pertinent positives & negatives. A total of 10 systems reviewed and were otherwise negative. Past Medical History: Anemia, CHF, VT (1 year ago), BPH, Chronic kidney disease, diabetes, CAD, HTN, UTI, Sepsis, see chart for complete list Past Surgical History: Family History: Family history not contributory Social History: Lives home alone Home Medications: Tylenol, Aspirin, Doxycycline hyclate, insulin, lisinopril, metformin, metoprolol, see chart for complete list Allergies Poliomyelitis vaccine Physical: Vitals: BP: 195/120, AK: 75, RR: 18, Temp: 90.1F, O2 sat: 98 on RA Exam: GENERAL: Patient is well appearing and in no acute distress. Mildly confused and slow to answer. EYES: No scleral icterus, unremarkable pupils. ENT: Mucous membranes moist, no nasal congestion. NECK: No masses appreciated, no meningismus, trachea is midline. RESPIRATORY: No dyspnea. Clear to auscultation and equal bilaterally. No wheeze, no rhonchi. CARDIOVASCULAR: Regular rate and rhythm. No murmurs, rubs, gallops appreciated. GASTROINTESTINAL: Abdomen soft, non-tender, no peritonitis. Bowel sounds positive. No masses appreciated. BACK: No midline tenderness, no CVA tenderness EXTREMITIES: Normal motion all extremities, no cyanosis, no edema. Bilateral feet in wound boots which are not wet. NEUROLOGIC: Alert and oriented, no acute motor or sensory deficits, no focal weakness, cranial nerves grossly intact. SKIN: No rash, no jaundice, no diaphoresis. Very cold to touch with mild tremors. ED Course: Prior Medical Record, Triage/Nursing Notes, Medications, Allergies reviewed by Toan post Vital Signs: reviewed and remarkable for hypothermia Labs: Reviewed and remarkable for Hypoglycemia Interventions: Saline Lock, Zosyn 4.5Gm IV, Vanc 2 G IV, NSS bolus 2 L IV, Della hugger Imaging: X ray results are stated below per my interpretation: Chest: 1 view: Large RLL infiltrate new from previous imaging EKG: Very poor baseline, Normal sinus rhythm rate of 75, no ectopy, no ischemia, QTC 480 Consults: 0040: I spoke to Dr. Jerry - [facility] Hospitalist about the patient's case and he is going to accept him for further evaluation. Reassessments/Times: 2338: Past medical records reviewed. The patient was evaluated in room C07, and a complete history and physical examination were performed. 0005: I reevaluated the patient and he is sleeping with no distress. 0026: I checked on the patient and he is breathing comfortably. He answers questions upon awakening and his blood sugar on repeat test was 95. 0050: I reevaluated the patient and he is mildly more confused with his blood sugar at 80. He will receive further D50. 0125: The patient is still mildly altered with an O2 sat of 88. His temperature is gradually improving. 0225: The patient's blood pressure dropped to 88/50 so another liter of fluids was ordered. 0245: The patient's blood pressure remains in the 80s after a liter so a second liter is ordered. Dr. Jerry was made aware. Blood pressure: Hypotensive. No Referral necessary Disposition: Hospitalist Evaluation and admission Differentials: Toxicological, Infectious, Stroke, SAH, Trauma, Electrolyte Abnormality, Hypoglycemia, Alcohol Intoxication, Drug Intoxication, Cardiac Abnormality, Sepsis, Meningitis/Encephalitis, Trauma, Excited Delirium, Serotonin Syndrome, Psychiatric, amongst other pathologies Entertained. Medical Decision Makin yr old male with AMS and weakness at local hotel found to be hypoglycemic requiring several rounds D50 and noted to be significantly hypothermic for which he was started on warming blanket. Shivering, GCS 15 and responsive thus I feel further invasive warming not indicated. CXR with large RLL infiltrate. Suspect hypothermia is secondary to combo sepsis and how cold it is outside. Given zosyn/vanc as already on doxy for wounds right foot. Not significantly hypoxic though did start trending down a bit with fluids. Fluid resus as BP started dropping after being quite high initially, and after 2 L BP was stabilizing. He was maintaining airway without issue throughout stay. He will be admitted to hospitalist for further management/treatment. Impression: Hypothermia Sepsis Pneumonia Hypoglycemia Critical Care Time: I have personally spent greater than 30 minutes of critical care time in the direct management of this patient. Acute Sepsis secondary to RLL Pneumonia with hypotension, hypothermia and hypoglycemia. This was a life/limb threatening event. This includes time spent evaluating patient, direct bedside care, chart review, placing orders, interpretation of diagnostic studies, discussion with consultants and patient, as well as other required patient management activities. This 30 minutes is in excess of all separately billable procedures. Vinicius Blake MD The scribe's documentation has been prepared under my direction and personally reviewed by me in its entirety. I confirm that the note above accurately reflects all work, treatment, procedures, and medical decision making performed by me. Impression & Plan Hypothermia, Sepsis, Pneumonia, Hypoglycemia Past Med/Surg History Social History Preferred Language: Chadian Communication Ability: Effective Sas Clinical Programmer Required: No Beliefs That Will Affect Care: None marital status: Single Current Living Situation: Alone current occupational status: retired Other Information That Helps Us Care for You: No Feels Safe at Home: Yes Safety Concerns: Feels Safe At This Time Smoking Status: Never smoker Hx Alcohol Use: No Hx Substance Use: No Results & Data Vital Signs Vital Signs - 24 hr 09/05/18 23:36 09/05/18 23:50 09/06/18 00:41 Temperature 32.3 C L 32.4 C L Temperature Source Rectal Rectal Sepsis Recent Fever Within 48 Hours No Sepsis Action Taken by Nursing No Action Required Pulse Rate 75 Pulse Rate [Right Finger] Pulse Rhythm [Right Finger] Pulse Strength [Right Finger] Respiratory Rate 18 Respiratory Effort / Characteristics Non-Labored Spontaneous Respiratory Depth Normal Respiratory Pattern Regular Blood Pressure 195/120 H Blood Pressure [Right Arm] Blood Pressure Mean 145 Blood Pressure Mean [Right Arm] Blood Pressure Position Sitting Blood Pressure Position [Right Arm] Pulse Oximetry 98 Oxygen Delivery Method Room Air Oxygen Flow Rate 09/06/18 00:50 09/06/18 01:16 09/06/18 01:29 Temperature 32.3 C L Temperature Source Rectal Sepsis Recent Fever Within 48 Hours Sepsis Action Taken by Nursing Pulse Rate Pulse Rate [Right Finger] 53 L 69 Pulse Rhythm [Right Finger] Regular Regular Pulse Strength [Right Finger] Normal Normal Respiratory Rate 16 17 Respiratory Effort / Characteristics Non-Labored Spontaneous Non-Labored Spontaneous Respiratory Depth Normal Normal Respiratory Pattern Regular Blood Pressure Blood Pressure [Right Arm] 117/72 121/76 Blood Pressure Mean Blood Pressure Mean [Right Arm] 87 91 Blood Pressure Position Blood Pressure Position [Right Arm] Pulse Oximetry 94 93 Oxygen Delivery Method Room Air Room Air Oxygen Flow Rate 09/06/18 02:22 09/06/18 02:32 09/06/18 02:44 Temperature 33 C L Temperature Source Rectal Sepsis Recent Fever Within 48 Hours Sepsis Action Taken by Nursing Pulse Rate Pulse Rate [Right Finger] 53 L 54 L 54 L Pulse Rhythm [Right Finger] Regular Regular Regular Pulse Strength [Right Finger] Normal Normal Normal Respiratory Rate 18 16 16 Respiratory Effort / Characteristics Non-Labored Spontaneous Non-Labored Spontaneous Non-Labored Spontaneous Respiratory Depth Normal Normal Normal Respiratory Pattern Regular Regular Regular Blood Pressure Blood Pressure [Right Arm] 88/50 L 81/51 L 82/56 L Blood Pressure Mean Blood Pressure Mean [Right Arm] 62 61 64 Blood Pressure Position Blood Pressure Position [Right Arm] Pulse Oximetry 87 L 97 97 Oxygen Delivery Method Room Air Nasal Cannula Nasal Cannula Oxygen Flow Rate 2 2 09/06/18 02:49 09/06/18 03:07 09/06/18 03:23 Temperature Temperature Source Sepsis Recent Fever Within 48 Hours Sepsis Action Taken by Nursing Pulse Rate Pulse Rate [Right Finger] 54 L 61 62 Pulse Rhythm [Right Finger] Regular Regular Regular Pulse Strength [Right Finger] Normal Normal Normal Respiratory Rate 14 18 18 Respiratory Effort / Characteristics Non-Labored Spontaneous Non-Labored Spontaneous Non-Labored Respiratory Depth Normal Normal Normal Respiratory Pattern Regular Regular Blood Pressure Blood Pressure [Right Arm] 95/49 L 100/61 107/66 Blood Pressure Mean Blood Pressure Mean [Right Arm] 64 74 79 Blood Pressure Position Blood Pressure Position [Right Arm] Pulse Oximetry 98 97 98 Oxygen Delivery Method Nasal Cannula Room Air Room Air Oxygen Flow Rate 2 09/06/18 03:38 09/06/18 04:21 Temperature 34 C L 34.3 C L Temperature Source Rectal Rectal Sepsis Recent Fever Within 48 Hours Sepsis Action Taken by Nursing Pulse Rate Pulse Rate [Right Finger] 62 68 Pulse Rhythm [Right Finger] Regular Regular Pulse Strength [Right Finger] Normal Normal Respiratory Rate 16 18 Respiratory Effort / Characteristics Non-Labored Spontaneous Non-Labored Spontaneous Respiratory Depth Normal Normal Respiratory Pattern Regular Blood Pressure Blood Pressure [Right Arm] 91/62 L 125/68 Blood Pressure Mean Blood Pressure Mean [Right Arm] 71 87 Blood Pressure Position Blood Pressure Position [Right Arm] Lying Pulse Oximetry 97 96 Oxygen Delivery Method Room Air Room Air Oxygen Flow Rate Laboratory Data Result diagrams: 09/05/18 23:49 09/05/18 23:49 Lab Results 09/05/18 09/05/18 09/05/18 Range/Units 23:34 23:49 23:49 WBC 8.53 (4.8-10.8) K/uL RBC 4.05 L (4.7-6.1) M/uL Hgb 12.6 L (14.0-18.0) g/dL Hct 39.9 L (42-52) % MCV 98.5 (80-100) fL MCH 31.1 (25-34) pg MCHC 31.6 L (32-36) g/dL RDW Std Deviation 57.7 H (36.4-46.3) fL RDW Coeff of Clarissa 15.8 H (11.5-14.5) % Plt Count 249 (130-400) K/uL MPV 10.2 (7.4-10.4) fL Immature Gran % (Auto) 0.6 % Neut % (Auto) 82.6 % Lymph % (Auto) 9.5 % [place] % (Auto) 6.3 % Eos % (Auto) 0.9 % Baso % (Auto) 0.1 % Immature Gran # (Auto) 0.05 H (0.00-0.02) K/uL Neut # (Auto) 7.04 H (1.4-6.5) K/uL Lymph # (Auto) 0.81 L (1.2-3.4) K/uL [place] # (Auto) 0.54 (0.11-0.59) K/uL Eos # (Auto) 0.08 (0-0.5) K/uL Baso # (Auto) 0.01 (0-0.2) K/uL Sodium 141 (136-145) mmol/L Potassium 4.4 (3.5-5.1) mmol/L Chloride 108 H (98-107) mmol/L Carbon Dioxide 26 (21-32) mmol/L Anion Gap 8.0 (3-11) BUN 29 H (7-18) mg/dl Creatinine 1.20 (0.6-1.4) mg/dl Est Cr Clr Drug Dosing 69.8 ml/min Est GFR ( Amer) 70.6 Est GFR (Non-Af Amer) 60.9 BUN/Creatinine Ratio 23.8 H (10-20) Glucose 102 H (70-99) mg/dl POC Glucose 98 (70-99) Lactate (0.4-2.0) mmol/L Calcium 8.6 (8.5-10.1) mg/dl Magnesium 2.4 (1.8-2.4) mg/dl Total Bilirubin 0.6 (0.2-1) mg/dl Direct Bilirubin 0.2 (0-0.2) mg/dl AST 41 H (15-37) U/L ALT 39 (12-78) U/L Alkaline Phosphatase 197 H (45-117) U/L Total Creatine Kinase 130 (39-308) U/L Troponin I < 0.015 (0-0.045) ng/ml NT-Pro-B Natriuret Pep 562 (0-900) pg/ml Total Protein 8.0 (6.4-8.2) gm/dl Albumin 3.5 (3.4-5.0) gm/dl Lipase 401 H (73-393) U/L Ethyl Alcohol mg/dL (0-3) mg/dl 09/05/18 09/06/18 09/06/18 Range/Units 23:58 00:01 00:10 WBC (4.8-10.8) K/uL RBC (4.7-6.1) M/uL Hgb (14.0-18.0) g/dL Hct (42-52) % MCV (80-100) fL MCH (25-34) pg MCHC (32-36) g/dL RDW Std Deviation (36.4-46.3) fL RDW Coeff of Clarissa (11.5-14.5) % Plt Count (130-400) K/uL MPV (7.4-10.4) fL Immature Gran % (Auto) % Neut % (Auto) % Lymph % (Auto) % [place] % (Auto) % Eos % (Auto) % Baso % (Auto) % Immature Gran # (Auto) (0.00-0.02) K/uL Neut # (Auto) (1.4-6.5) K/uL Lymph # (Auto) (1.2-3.4) K/uL [place] # (Auto) (0.11-0.59) K/uL Eos # (Auto) (0-0.5) K/uL Baso # (Auto) (0-0.2) K/uL Sodium (136-145) mmol/L Potassium (3.5-5.1) mmol/L Chloride (98-107) mmol/L Carbon Dioxide (21-32) mmol/L Anion Gap (3-11) BUN (7-18) mg/dl Creatinine (0.6-1.4) mg/dl Est Cr Clr Drug Dosing ml/min Est GFR ( Amer) Est GFR (Non-Af Amer) BUN/Creatinine Ratio (10-20) Glucose (70-99) mg/dl POC Glucose 95 (70-99) Lactate 0.9 (0.4-2.0) mmol/L Calcium (8.5-10.1) mg/dl Magnesium (1.8-2.4) mg/dl Total Bilirubin (0.2-1) mg/dl Direct Bilirubin (0-0.2) mg/dl AST (15-37) U/L ALT (12-78) U/L Alkaline Phosphatase (45-117) U/L Total Creatine Kinase (39-308) U/L Troponin I (0-0.045) ng/ml NT-Pro-B Natriuret Pep (0-900) pg/ml Total Protein (6.4-8.2) gm/dl Albumin (3.4-5.0) gm/dl Lipase (73-393) U/L Ethyl Alcohol mg/dL < 3.0 (0-3) mg/dl 09/06/18 09/06/18 09/06/18 Range/Units 00:39 00:56 01:27 WBC (4.8-10.8) K/uL RBC (4.7-6.1) M/uL Hgb (14.0-18.0) g/dL Hct (42-52) % MCV (80-100) fL MCH (25-34) pg MCHC (32-36) g/dL RDW Std Deviation (36.4-46.3) fL RDW Coeff of Clarissa (11.5-14.5) % Plt Count (130-400) K/uL MPV (7.4-10.4) fL Immature Gran % (Auto) % Neut % (Auto) % Lymph % (Auto) % [place] % (Auto) % Eos % (Auto) % Baso % (Auto) % Immature Gran # (Auto) (0.00-0.02) K/uL Neut # (Auto) (1.4-6.5) K/uL Lymph # (Auto) (1.2-3.4) K/uL [place] # (Auto) (0.11-0.59) K/uL Eos # (Auto) (0-0.5) K/uL Baso # (Auto) (0-0.2) K/uL Sodium (136-145) mmol/L Potassium (3.5-5.1) mmol/L Chloride (98-107) mmol/L Carbon Dioxide (21-32) mmol/L Anion Gap (3-11) BUN (7-18) mg/dl Creatinine (0.6-1.4) mg/dl Est Cr Clr Drug Dosing ml/min Est GFR ( Amer) Est GFR (Non-Af Amer) BUN/Creatinine Ratio (10-20) Glucose (70-99) mg/dl POC Glucose 88 179 H 130 H (70-99) Lactate (0.4-2.0) mmol/L Calcium (8.5-10.1) mg/dl Magnesium (1.8-2.4) mg/dl Total Bilirubin (0.2-1) mg/dl Direct Bilirubin (0-0.2) mg/dl AST (15-37) U/L ALT (12-78) U/L Alkaline Phosphatase (45-117) U/L Total Creatine Kinase (39-308) U/L Troponin I (0-0.045) ng/ml NT-Pro-B Natriuret Pep (0-900) pg/ml Total Protein (6.4-8.2) gm/dl Albumin (3.4-5.0) gm/dl Lipase (73-393) U/L Ethyl Alcohol mg/dL (0-3) mg/dl 09/06/18 09/06/18 09/06/18 Range/Units 01:58 02:52 03:40 WBC (4.8-10.8) K/uL RBC (4.7-6.1) M/uL Hgb (14.0-18.0) g/dL Hct (42-52) % MCV (80-100) fL MCH (25-34) pg MCHC (32-36) g/dL RDW Std Deviation (36.4-46.3) fL RDW Coeff of Clarissa (11.5-14.5) % Plt Count (130-400) K/uL MPV (7.4-10.4) fL Immature Gran % (Auto) % Neut % (Auto) % Lymph % (Auto) % [place] % (Auto) % Eos % (Auto) % Baso % (Auto) % Immature Gran # (Auto) (0.00-0.02) K/uL Neut # (Auto) (1.4-6.5) K/uL Lymph # (Auto) (1.2-3.4) K/uL [place] # (Auto) (0.11-0.59) K/uL Eos # (Auto) (0-0.5) K/uL Baso # (Auto) (0-0.2) K/uL Sodium (136-145) mmol/L Potassium (3.5-5.1) mmol/L Chloride (98-107) mmol/L Carbon Dioxide (21-32) mmol/L Anion Gap (3-11) BUN (7-18) mg/dl Creatinine (0.6-1.4) mg/dl Est Cr Clr Drug Dosing ml/min Est GFR ( Amer) Est GFR (Non-Af Amer) BUN/Creatinine Ratio (10-20) Glucose (70-99) mg/dl POC Glucose 122 H 99 82 (70-99) Lactate (0.4-2.0) mmol/L Calcium (8.5-10.1) mg/dl Magnesium (1.8-2.4) mg/dl Total Bilirubin (0.2-1) mg/dl Direct Bilirubin (0-0.2) mg/dl AST (15-37) U/L ALT (12-78) U/L Alkaline Phosphatase (45-117) U/L Total Creatine Kinase (39-308) U/L Troponin I (0-0.045) ng/ml NT-Pro-B Natriuret Pep (0-900) pg/ml Total Protein (6.4-8.2) gm/dl Albumin (3.4-5.0) gm/dl Lipase (73-393) U/L Ethyl Alcohol mg/dL (0-3) mg/dl Administered Medications Discontinued Medications Dextrose (Dextrose 50%) 25 ml IV NOW ONE Stop: 09/06/18 00:43 Last Admin: 09/06/18 00:45 Dose: 25 ml Documented by: [id number] Vancomycin HCl 2,000 mg/ (Sodium Chloride) 540 mls @ 200 mls/hr IV NOW ONE Stop: 09/06/18 02:47 Last Infusion: 09/06/18 03:20 Dose: 0 mls/hr Documented by: [id number] Admin: 09/06/18 00:37 Dose: 200 mls/hr Documented by: [id number] Piperacillin Sod/Tazobactam Sod (Zosyn) 4.5 gm in 120 mls @ 240 mls/hr IV NOW ONE Stop: 09/06/18 00:35 Last Infusion: 09/06/18 01:08 Dose: 0 mls/hr Documented by: [id number] Admin: 09/06/18 00:37 Dose: 240 mls/hr Documented by: [id number] Sodium Chloride (Nss 1000ml) 1,000 mls @ 999 mls/hr IV .Q1H1M FRANCISCO Stop: 09/06/18 03:30 Last Infusion: 09/06/18 03:31 Dose: 0 mls/hr Documented by: [id number] Admin: 09/06/18 02:29 Dose: 999 mls/hr Documented by: [id number] Sodium Chloride (Nss 1000ml) 1,000 mls @ 999 mls/hr IV .Q1H1M ONE Stop: 09/06/18 03:29 Last Admin: 09/06/18 02:30 Dose: Not Given Documented by: [id number] Sodium Chloride (Nss 1000ml) 1,000 mls @ 999 mls/hr IV .Q1H1M ONE Stop: 09/06/18 03:42 Last Infusion: 09/06/18 04:19 Dose: 0 mls/hr Documented by: [id number] Admin: 09/06/18 02:56 Dose: 999 mls/hr Documented by: [id number] Discharge Plan Visit Data *Final* Discharge Date/Time: 09/06/18 03:53 Chief Complaint: Hypoglycemia ED Provider: Vinicius Blake Discharge Problem: Hypothermia, Sepsis, Pneumonia, Hypoglycemia Patient Disposition: Admitted As Inpatient Discharge Instructions Interventions: ED Discharge Assessment Last Done: 09/06/18 03:53 The scribe's documentation has been prepared under my direction and personally reviewed by me in its entirety. I confirm that the note above accurately reflects all work, treatment, procedures, and medical decision making performed by me.
[2018-09-06] MEDS ORDERED: SODI CHLOR 2.5MEQ/ML 14.6% 77 MEQ in DEXTROSE 10% 1,000 ML IV SCH (05:00)
[2018-09-06] MEDS ORDERED: GLUCAGON FOR INJ 1 MG VIAL SQ STA (05:02)
[2018-09-06 05:50] LABS: Albumin Level 2.7 gm/dl (3.4-5.0); BUN Creatinine Ratio 28.2 (10-20); Bilirubin Direct 0.2 mg/dl (0-0.2); Calcium 7.5 mg/dl (8.5-10.1); Creatinine Clr Calc Pharmacy 69.1 ml/min; Est GFR (African American) 69.9; Est GFR (Non-African American) 60.3; Magnesium 2.3 mg/dl (1.8-2.4); Potassium 4.3 mmol/L (3.5-5.1)
[2018-09-06 05:58] LABS: Bilirubin,Total 0.5 mg/dl (0.2-1); Total Protein 6.2 gm/dl (6.4-8.2)
--- NOTE | 2018-09-06 06:15 | XRay Report ---
XR pelvis 1-2V routine CLINICAL HISTORY: Fall, trauma pain COMPARISON: None. DISCUSSION: The bones and joint spaces appear intact. There is no evidence of fracture, dislocation o r bony disease. There is no evidence for soft tissue swelling. IMPRESSION: Negative study. The above report was generated using voice recognition software. It may contain grammatical, syntax or spelling errors. Electronically signed by: Stephen Marvin M.D. 09/06/2018 6:14 AM
--- NOTE | 2018-09-06 06:17 | XRay Report ---
XR chest 1V portable CLINICAL HISTORY: Syncope dyspnea COMPARISON STUDY: 01/13/2018 FINDINGS: Parenchymal infiltrate right base. Accentuated interstitial markings left base. Mild cardio megaly. Mild prominence pulmonary vasculature. IMPRESSION: 1. Parenchymal infiltrate/atelectasis right base. 2. Pulmonary vascular congestion. The above report was generated using voice recognition software. It may contain grammatical, syntax or spelling errors. Electronically signed by: Stephen Marvin M.D. 09/06/2018 6:15 AM
--- NOTE | 2018-09-06 06:18 | CT Scan Report ---
CT head/brain wo con CT DOSE: 537.48 mGy.cm HISTORY: Mental status change episode AMS, GCS 15 now TECHNIQUE: Multiaxial CT images of the head were performed without the use of intravenous contrast. A dose lowering technique was utilized adhering to the principles of ALARA. Comparison: None. Findings: The paranasal sinuses and mastoid air cells are clear. The calvarium and skull base are int act. The ventricles and sulci are within normal limits. There is no mass, hematoma, midline shift, or acute infarct. Impression: No acute intracranial abnormality. The above report was generated using voice recognition software. It may contain grammatical, syntax or spelling errors. Electronically signed by: Stephen Marvin M.D. 09/06/2018 6:17 AM
[2018-09-06 06:20] LABS: Basophils # (auto) 0.01 K/uL (0-0.2); Basophils % (auto) 0.2 %; Eosinophils # (auto) 0.08 K/uL (0-0.5); Eosinophils % (auto) 1.4 %; Hematocrit (blood only) 34.9 % (42-52); Hemoglobin 10.9 g/dL (14.0-18.0); Immature Granulocytes # (auto) 0.03 K/uL (0.00-0.02); Immature Granulocytes % (auto) 0.5 %; Lymphocytes # (auto) 0.36 K/uL (1.2-3.4); Lymphocytes % (auto) 6.2 %; Mean Corpuscular Hgb Conc 31.2 g/dL (32-36); Mean Platelet Volume 10.4 fL (7.4-10.4); Monocytes # (auto) 0.39 K/uL (0.11-0.59); Monocytes % (auto) 6.7 %; Neutrophils # (auto) 4.93 K/uL (1.4-6.5); Platelet Count 221 K/uL (130-400); RDW Standard Deviation 57.7 fL (36.4-46.3); Red Blood Count 3.56 M/uL (4.7-6.1)
[2018-09-06] MEDS: DOXYCYCLINE HYCLATE 100 MG in DEXTROSE 5% 100 ML IV SCH ×2 (06:30→17:34)
--- NOTE | 2018-09-06 07:23 | XRay Report ---
XR chest 1V portable CLINICAL HISTORY: PNM dyspnea COMPARISON STUDY: 09/05/2018 FINDINGS: Unchanging parenchymal infiltrate right base. Prominence of pulmonary vasculature persists. Mild stable cardiomegaly. IMPRESSION: 1. Unchanging parenchymal infiltrate right base. 2. Unchanging to slightly increased components of pulmonary vascular congestion The above report was generated using voice recognition software. It may contain grammatical, syntax or spelling errors. Electronically signed by: Stephen Marvin M.D. 09/06/2018 7:21 AM
--- NOTE | 2018-09-06 07:28 | Critical Care Consultation ---
Date of Consultation September 06, 2018 Assessment & Plan (1) Altered mental status: Reason Critically Ill: 68-year-old male presented to ED with hypoglycemia, pneumonia, and altered mental status Neuro [facility] ICU: Negative Cardiac CAD: Continue Lipitor Plavix and aspirin -EKG unremarkable, QTC 457 -Monitor on telemetry Respiratory Pneumonia -chest x-ray -Continue doxycycline, Zosyn, Vanco -IV Solu-Medrol -A/A nebs -Pulmonary toilet GI - Chronic constipation: Monitor need for laxatives/stool softeners RENAL/LYTES - Hypomagnesemia: Continue mag oxide - Chronic urinary retention: Voiding without issue, monitor ENDO - Hypoglycemia/type II diabetic� HEME - Chronic anemia: Continue folic acid, routine CBCs ID - Zosyn, doxycycline, vein LINES/IV ACCESS - Peripheral IVs DVT PROPHYLAXIS - Subcu heparin, SCDs (2) Type II diabetes mellitus: (3) CAD (coronary artery disease): (4) Stage III pressure ulcer of left heel: Supervising Physician Co-Signing Physician Notes I have personally evaluated and examined this patient. I agree with assessment and plan of Jen GARCIA. History of Present Illness Attending Physician: Douglas Jerry MD History of Present Illness Mr. 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 On arrival patient was confused, hypertensive, and found to be hypoglycemic. CT head negative, chest x-ray suggests pneumonia and right lower lobe. Blood cultures collected and started on antibiotic therapy. Patient was then transferred to ICU for further management. Allergies Allergy/AdvReac Type Severity Reaction Status Date / Time poliomyelitis vaccine, live Allergy Unknown Unknown Verified 09/03/18 08:07 oral Home Medications Home Medications Medication Instructions Recorded Confirmed Type aspirin 81 mg tablet,delayed 81 mg PO DAILY 03/02/18 09/06/18 History release atorvastatin 40 mg tablet 40 mg PO HS tab 03/02/18 09/06/18 History clopidogrel 75 mg tablet 75 mg PO DAILY 03/02/18 09/06/18 History cyanocobalamin (vit B-12) 1,000 1,000 mcg PO DAILY 03/02/18 09/06/18 History mcg tablet folic acid 1 mg tablet 1 mg PO DAILY 03/02/18 09/06/18 History magnesium oxide 400 mg capsule 400 mg PO DAILY cap 03/02/18 09/06/18 History metoprolol succinate ER 50 mg 50 mg PO DAILY ea 03/02/18 09/06/18 History capsule sprinkle, ext. release 24 hr tamsulosin 0.4 mg capsule 0.4 mg PO HS cap 03/02/18 09/06/18 History acetaminophen [Tylenol Extra 500 mg PO Q12 PRN 07/01/18 09/06/18 History Strength] cholecalciferol (vitamin D3) 5,000 unit PO DAILY 07/01/18 09/06/18 History [Vitamin D3] multivitamin 1 tab PO DAILY 07/01/18 09/06/18 History Spectravite Advanced Formula 1 tab PO DAILY 09/06/18 09/06/18 History fluticasone-salmeterol [Advair 1 inha INHALATION BID #60 ea 09/11/18 Rx Diskus] insulin aspart U-100 [Novolog 1 units SC ACHS #15 ml 09/11/18 Rx Flexpen U-100 Insulin] insulin glargine [Lantus U-100 10 units SC BID #10 ml 09/11/18 Rx Insulin] Patient History Social History Preferred Language: Belarusian Beliefs That Will Affect Care: None marital status: Single Current Living Situation: Alone current occupational status: retired Other Information That Helps Us Care for You: No Feels Safe at Home: Yes Safety Concerns: Feels Safe At This Time Smoking Status: Never smoker Hx Alcohol Use: No Hx Substance Use: No Review of Systems Patient reports blurry vision over the past few years Patient denies nasal discharge, productive cough, or sore throat Patient short of breath, denies productive cough, denies congestion Additional Comments: Patient denies syncope, palpitations, or chest pain Patient denies nausea or vomiting, or constipation Patient denies urinary frequency, hesitancy, or changes in urine stream Patient denies weakness, swelling, or deformity Patient reports wound to left heel in which she sees wound care, denies rash or other wounds Patient denies changes in gait, headache, or confusion Physical Exam Vital Signs (Past 24 Hours): Last Vital Signs Temp 35.7 C L 09/06/18 06:00 Pulse 91 H 09/06/18 06:31 Resp 18 09/06/18 06:31 BP 138/91 09/06/18 06:31 Pulse Ox 95 09/06/18 06:31 Constitutional: WD/WN, vitals as above Eyes: PERRL, conjunctivae normal, anicteric sclerae Neck: trachea midline, no thyromegaly Respiratory: normal respiratory effort, lungs clear to auscultation + labored breathing Cardiovascular: RRR, no murmur, no edema Rate/Rhythm: regular rhythm Heart Sounds: normal S1 and normal S2 Gastrointestinal (Abdomen): normal bowel sounds, soft, nontender, no hepatosplenomegaly Neurologic: PERRL, EOMI, accommodation nl, no face palsy, no dysarthria Results & Data Medications Administered Home Medications aspirin 81 mg tablet,delayed release 81 mg PO DAILY 03/02/18 [History Confirmed 09/06/18] atorvastatin 40 mg tablet 40 mg PO HS tab 03/02/18 [History Confirmed 09/06/18] clopidogrel 75 mg tablet 75 mg PO DAILY 03/02/18 [History Confirmed 09/06/18] cyanocobalamin (vit B-12) 1,000 mcg tablet 1,000 mcg PO DAILY 03/02/18 [History Confirmed 09/06/18] folic acid 1 mg tablet 1 mg PO DAILY 03/02/18 [History Confirmed 09/06/18] glimepiride 2 mg tablet 2 mg PO QAM 03/02/18 [History Confirmed 09/06/18] insulin aspart U- 100 100 unit/mL subcutaneous pen 5 units SQ TIDM ml 03/02/18 [History Confirmed 09/06/18] insulin glargine (U- 100) 100 unit/mL subcutaneous solution 35 units SQ DAILY ml 03/02/18 [History Confirmed 09/06/18] lisinopril 2.5 mg tablet 2.5 mg PO DAILY 03/02/18 [History Confirmed 09/06/18] magnesium oxide 400 mg capsule 400 mg PO DAILY cap 03/02/18 [History Confirmed 09/06/18] metoprolol succinate ER 50 mg capsule sprinkle, ext. release 24 hr 50 mg PO DAILY ea 03/02/18 [History Confirmed 09/06/18] tamsulosin 0.4 mg capsule 0.4 mg PO HS cap 03/02/18 [History Confirmed 09/06/18] acetaminophen [Tylenol Extra Strength] 500 mg PO Q12 PRN 07/01/18 [History Conf irmed 09/06/18] cholecalciferol (vitamin D3) [Vitamin D3] 5,000 unit PO DAILY 07/01/18 [History Confirmed 09/06/18] multivitamin 1 tab PO DAILY 07/01/18 [History Confirmed 09/06/18] metformin 500 mg PO BID 09/06/18 [History Confirmed 09/06/18] [id number] acid [Spectravite Advanced Formula] 1 tab PO DAILY 09/06/18 [History Confirmed 09/06/18] Active Medications Acetaminophen (Tylenol) 650 mg PO Q8H PRN PRN Reason: fever or pain Stop: 10/06/18 03:29 Aspirin (Ecotrin Ectab) 81 mg PO DAILY [facility] Stop: 10/06/18 08:59 Last Admin: 09/06/18 09:23 Dose: 81 mg Documented by: Atorvastatin Calcium (Lipitor) 40 mg PO HS [facility] Stop: 10/06/18 20:59 Clopidogrel Bisulfate (Plavix) 75 mg PO DAILY [facility] Stop: 10/06/18 08:59 Last Admin: 09/06/18 09:23 Dose: 75 mg Documented by: Folic Acid (Folvite) 1 mg PO DAILY [facility] Stop: 10/06/18 08:59 Last Admin: 09/06/18 09:23 Dose: 1 mg Documented by: Heparin Sodium (Porcine) (Heparin Sodium (Porcine)) 5,000 units SQ Q8 [facility] Stop: 10/06/18 07:59 Last Admin: 09/06/18 14:00 Dose: 5,000 units Documented by: Doxycycline Hyclate 100 mg/ (Dextrose) 110 mls @ 50 mls/hr IV Q12H [facility]; Protocol Stop: 09/13/18 05:59 Last Infusion: 09/06/18 08:45 Dose: Infused Documented by: Piperacillin Sod/Tazobactam Sod (Zosyn) 3.375 gm in 115 mls @ 28.75 mls/hr IV Q8H [facility]; Protocol Stop: 09/13/18 07:59 Last Admin: 09/06/18 16:16 Dose: 28.8 mls/hr Documented by: Vancomycin HCl 1,500 mg/ (Sodium Chloride) 530 mls @ 200 mls/hr IV Q14H [facility] Stop: 09/13/18 13:59 Last Infusion: 09/06/18 16:41 Dose: Infused Documented by: Methylprednisolone 40 mg/ (Syringe) 0.64 mls @ 1.5 mls/min IV BID [facility] Stop: 09/10/18 23:59 Last Admin: 09/06/18 16:18 Dose: 1.5 mls/min Documented by: Insulin Aspart (Novolog Flexpen) 0 units SC ACHS [facility] Stop: 10/06/18 16:29 Last Admin: 09/06/18 16:38 Dose: 11 units Documented by: Insulin Aspart (Novolog Flexpen) 0 units SC TODAY@0000,0400 [facility] Stop: 09/07/18 04:01 Insulin Glargine (Lantus) 10 units SC BID [facility] Stop: 10/06/18 20:59 Magnesium Oxide (Mag-Ox) 400 mg PO DAILY [facility] Stop: 10/06/18 08:59 Last Admin: 09/06/18 09:23 Dose: 400 mg Documented by: Miscellaneous (Icu Protocol For Hyperglycemia) 1 ea N/A PRN PRN; Protocol PRN Reason: Hyperglycemia Protocol Stop: 09/08/18 03:14 Miscellaneous Information (Consult) 1 ea N/A UD PRN PRN Reason: Consult Stop: 10/06/18 04:37 Miscellaneous Information (Consult) 1 ea N/A UD PRN PRN Reason: Consult Stop: 10/06/18 04:37 Miscellaneous Information (Consult Glycemic Management Pharmacy) 1 ea N/A UD PRN PRN Reason: Consult Stop: 10/06/18 13:34
[2018-09-06] MEDS: PIPERACILLIN/TAZOBACTAM 3.375 GM/115 ML BAG IV SCH ×3 (07:44→23:59)
[2018-09-06] MEDS: HEPARIN SOD 5,000 UNIT/0.5 ML VIAL SQ SCH ×3 (07:44→22:05)
[2018-09-06] MEDS ORDERED: DOXYCYCLINE HYCLATE 100 MG in DEXTROSE 5% 100 ML IV ONE (09:00)
[2018-09-06 09:16] LABS: INR 1.1 (0.9-1.1); Prothrombin Time 11.4 Seconds (9.0-12.0)
[2018-09-06] MEDS: MAGNESIUM OXIDE 400 MG TAB PO SCH (09:23)
[2018-09-06] MEDS: ASPIRIN 81 MG ECTAB PO SCH (09:23)
[2018-09-06] MEDS: FOLIC ACID 1 MG TAB PO SCH (09:23)
[2018-09-06] MEDS: CLOPIDOGREL BISULFATE 75 MG TAB PO SCH (09:23)
[2018-09-06] MEDS ORDERED: INSULIN ASPART 100 UNITS/ML 3 ML PEN SC ONE (12:15)
--- NOTE | 2018-09-06 13:30 | Pharmacy Report ---
Pharmacy Abx Dose Short Note - Date of Service September 06, 2018 - Assessment & Plan Assessment * 68 year old M admitted for MS changes, hypoglycemia, possible evolving sepsis / aspiration pna * Vancomycin + Zosyn ordered empirically * CXR read as R base parenchymal infiltrate * MRSA nasal swab negative - making MRSA pna unlikely * BLCX's pending Plan Vancomycin * Loading dose: 2000mg (~20.3mg/kg) * Maint dose: 1500mg (~15.2mg/kg) IV Q 14 hours * Goal trough level for sepsis/pna : 15 to 20 mcg/mL * Will check trough w/ 3rd or 4th maint dose if therapy to continue * P'kinetic estimates: Vd 0.7L/kg; half-life ~11-12 hrs Zosyn * 4.5gm 30min infusion x 1, then 3.375gm ext-infusion Q 8 hrs * eCrCl > 20cc/min and BMI < 35 Pharmacy will continue to follow and will adjust dose/frequency as necessary. Thank you.
[2018-09-06] MEDS ORDERED: PHARMACY GLYCEMIC MGMT CONSULT PRN (13:35)
--- NOTE | 2018-09-06 13:45 | Pharmacy Report ---
Pharmacy Glycemic Short Note 2 - Date of Service September 06, 2018 - Glycemic Short BSG Results (Last 24 hours): 09/05/18 09/05/18 09/06/18 23:34 23:49 00:01 Glucose 102 H POC Glucose 98 95 09/06/18 09/06/18 09/06/18 00:39 00:56 01:27 Glucose POC Glucose 88 179 H 130 H 09/06/18 09/06/18 09/06/18 01:58 02:52 03:40 Glucose POC Glucose 122 H 99 82 09/06/18 09/06/18 09/06/18 04:46 05:12 05:45 Glucose 91 POC Glucose 63 L* 117 H 09/06/18 09/06/18 09/06/18 06:47 08:05 11:15 Glucose POC Glucose 147 H 170 H 247 H OUTPATIENT ANTIDIABETIC REGIMEN: * Per Discharge Instructions from most recent hospitalization * Lantus 40 units daily * Novolog 5 units w/ meals * Glimepiride 2mg PO Q AM * Metformin 500mg BID ASSESSMENT: * Type 2 diabetic admitted w/ mental status changes and hypoglycemia. * Pt did require D10 1/2 NS infusion to prevent recurrent hypoglycemia, likely due to excess basal insulin + glimepiride * Dextrose containing IVF's d/c'd this AM and diet has been ordered * Last admission reviewed, it appears he required only 20-30 units of basal insulin to achieve fasting goals * Will base basal/bolus regimen upon an anticipated total daily need of ~50-60 units while tolerating a diet PLAN FOR INPATIENT GLYCEMIC CONTROL: * Hold outpatient oral diabetes medications (metformin/glimepiride) * Basal insulin * Lantus 10 units SQ BID * Bolus insulin * NovoLog per scale ACHS or Q6hrs while NPO * Goal Range: Low 120 mg/dL - High 160 mg/dL * Correction Factor: 25 mg/dL/unit * Nutritional / Prandial insulin per carb ratio of 1 unit per 8 grams CHO consumed PLAN FOR DISCHARGE: * to be determined
[2018-09-06] MEDS: VANCOMYCIN HCL 1,500 MG in SODIUM CHLORIDE 0.9% 500 ML IV SCH (14:00)
--- NOTE | 2018-09-06 14:38 | Medical Student Progress Note ---
Date of Service September 06, 2018 A&P 68yo male with DMII, CKD III, CHF (EF 35-40%), and CAD (recently admitted for a fungal UTI an being treated as outpt for a L heal ulcer) admitted for AMS and concern for sepsis. AMS resolved with blood sugar correction. CXR shows RLL PNM. Normal lactic and an equivocal UA. 1. CAP/HAP- most likely CAP as pt describes SOB for past several days, but pt was also just recently hospitalized so HAP is also possible. CXR shows RLL infiltrate. Lactic is WNL. Day 1 of 5 for Vanc, Zosyn, Doxy. pending culture results. 2. Weakness-- PT/OT consult; recent prior hospitalization. Rehab step down may be needed. 3. AMS- resolved-- was likely due to hypoglycemia 4. Hypothermia - resolved- was likely due to hypoglycemia 5. Hypotension-- resolved-- ensued after rearming and may have been related to vasodilation rather than sepsis. He has responded to IVF with mild improvement. We will monitor for pressor use if needed. He is receiving additional IVF and his pressure bears monitoring due to his CHF history. Steroids? Random cortisol? Adrenal insufficiency? 5) DM II - hypoglycemia has resolved; pt education about DM medication and diet 6) BPH with retention - recent fungal UTI - equivocal UA - no additional treatment to above antibiotics pending culture result. Can continue Flomax. 7) CHF - requires volume monitoring as he has received 2+ L IVF. Resume B callie, KORI when tolerated - does not presently require diuretics. 8) CAD - no evidence of ACS - cont ASA, Plavix, Statin for now. Subjective 68yo male with DMII, CKD III, CHF (EF 35-40%), and CAD admitted for AMS and concern for sepsis. Pt indicated that he is still short of breath and has been for the past few days (is not improving or worsening). Pt is on 2L O2. Denies cough, sputum production, fever, chills. Pt feels generalized weakness. Physical Exam Vital Signs (Past 24 Hours): Last Vital Signs Temp 36.8 C 09/06/18 12:00 Pulse 92 H 09/06/18 14:06 Resp 33 H 09/06/18 14:06 BP 108/63 09/06/18 14:06 Pulse Ox 98 09/06/18 14:06 Constitutional: WD/WN, vitals as above ENMT: no nasal d/c Neck: normal visual inspection Respiratory: Auscultation: lungs clear to auscultation bilaterally decreased breath sounds in RLL Cardiovascular: Rate/Rhythm: regular rate and regular rhythm Heart Sounds: normal S1 and normal S2 Skin: + ulcer (bandaged ulcer of left heel)
[2018-09-06] MEDS: methylPREDNISolone 40 MG in SYRINGE 0 ML IV SCH ×2 (16:18→22:05)
[2018-09-06] MEDS: INSULIN ASPART 100 UNITS/ML 3 ML PEN SC SCH ×2 (16:38→22:03)
--- NOTE | 2018-09-06 17:02 | Hospitalist Progress Note ---
Date of Service September 06, 2018 Assessment & Plan (1) Altered mental status: 68 y/o M Hx combined CHF, CAD, DM II, CKD III, HTN, HLD, BPH with chronic retention, chronic dietary noncomplianceAdmitted on September 05 2018- secondary to right lower lung pneumonia and sepsis Per report, admittedRecent for a fungal UTI an being treated as outpt for a L heal ulcer. Presented in ED with AMS, hypothermia, hypoglycemia and became hypotensive while in the ER Possible metabolic encephalopathy with AMS related to hypoglycemia , Or sepsis Totally resolved. Mental statushas been improvement with correction of glucose Upon admission. Possible sepsis upon admission although lactric acid was negative however patient was hypothermic, source of infection, increased RR , and mental status change Right lower lobe pneumonia, differential diagnosis include aspiration pneumonia or healthcare facility acquired pneumonia, Or aspiration pneumonia, He may aspirated while in the mental status change Prior to admission Continue broad-spectrum antibiotic coverage, nebulizer treatment,And supportive care Hx combined CHF, CAD, Now has mild increased lung congestion,Will need to watch fluid overload, ont ASA, Plavix, Statin BPH, diabetic, Continue current care Left heel wound,Continue wound care Full code - Heparin prophylaxis (2) Type II diabetes mellitus: (3) CAD (coronary artery disease): (4) Stage III pressure ulcer of left heel: Subjective Generally feeling okay, denies fever and chill, Reports some cough, Shortness of breath , cough is nonproductive, no wheezing, Denies chest pain palpitation Review of Systems Constitutional: Positive weakness, or fatigue Respiratory: Positive dyspnea on exertion Cardiac: No chest pain,No claudication, No palpitations, Abdomen: No pain, No nausea, No vomiting, No diarrhea, No constipation, No GI bleeding Musculoskeletal: No joint pain, No muscle pain, No swelling, No calf pain, No problem reported : No dysuria, No urinary frequency, No incontinence, No hematuria Neurologic: No paralysis, No weakness, No numbness/tingling, No vertigo, No balance problems Psychiatric: No depression symptoms, No anhedonism, No anxiety, No insomnia, No substance abuse Heme: No abnormal bleeding/bruising, No clotting problems, No swollen lymph nodes, No night sweats Skin: heel ulceration Which is not new, No color change, No bleeding Physical Exam Vital Signs (Past 24 Hours): Last Vital Signs Temp 36.8 C 09/06/18 12:00 Pulse 92 H 09/06/18 14:06 Resp 33 H 09/06/18 14:06 BP 108/63 09/06/18 14:06 Pulse Ox 98 09/06/18 14:06 Physical Exam: General: Awake alert orientated, mild labored breathingWhen talking ENT: No erythema or exudates, no thrush Eyes: NIKO, EOMI Head and neck: Normocephalic, atraumatic, No JVD, neck is supple. Chest/heart: Nontender, S1,2, RRR, no murmurs, no gallops Lungs: Bilateral lower lung decreased breathing sound, left lower lung Obviouslydecreased breathing sound, L lung is clear. Abdomen: Nontender, nondistended, BS+ Neuro: Cranial nerve II through XII is intact there was no local deficits, conversational, follow-up commands, Musculoskeletal: No joint inflammation, muscle tenderness, FROM Skin: No acute rashes - shallow ulcer L heel - no apparent acute infection. Extremities: No clubbing, cyanosis, edema Results & Data Laboratory Results Laboratory Results - last 24 hr 09/05/18 09/05/18 09/05/18 23:34 23:49 23:49 WBC 8.53 RBC 4.05 L Hgb 12.6 L Hct 39.9 L MCV 98.5 MCH 31.1 MCHC 31.6 L RDW Std Deviation 57.7 H RDW Coeff of Clarissa 15.8 H Plt Count 249 MPV 10.2 Immature Gran % (Auto) 0.6 Neut % (Auto) 82.6 Lymph % (Auto) 9.5 Custer % (Auto) 6.3 Eos % (Auto) 0.9 Baso % (Auto) 0.1 Immature Gran # (Auto) 0.05 H Neut # (Auto) 7.04 H Lymph # (Auto) 0.81 L C[place] # (Auto) 0.54 Eos # (Auto) 0.08 Baso # (Auto) 0.01 Absolute Nucleated RBC Nucleated RBC % (auto) Neutrophils % (Manual) Band Neutrophils % Lymphocytes % (Manual) Prolymphocyte % Reactive Lymphs % (Man) Monocytes % (Manual) Eosinophils % (Manual) Basophils % (Manual) Metamyelocytes % (Man) Myelocytes % (Man) Promyelocytes % (Man) Blast Cells % (Manual) Plasma Cell % (Manual) Other Cells % Nucleated RBC % Neutrophils # (Manual) Band Neutrophils # Total Absolute Neuts Lymphocytes # (Manual) Prolymphocyte # Reactive Lymphs # Total Abs Lymphocytes Monocytes # (Manual) Eosinophils # (Manual) Basophils # (Manual) Metamyelocytes # (Man) Myelocytes # (Manual) Promyelocytes # (Man) Blast Cells # (Man) Plasma Cell # (Manual) Other Cells # Nucleated RBCs # (Man) Hypersegmented Neuts Hyposegmented Neuts Hypogranular Neuts Large Granular Lymphs # Lrg Granular Lymphs Hairy Cells Smudge Cells Toxic Granulation Toxic Vacuolation Dohle Bodies Sherry Rods Platelet Estimate Hypogranular Platelets Clumped Platelets Giant Platelets Platelet Satelliting RBC Morphology Polychromasia Hypochromasia Poikilocytosis Basophilic Stippling Anisocytosis Microcytosis Macrocytosis Spherocytes Pappenheimer Bodies Sickle Cells Target Cells Tear Drop Cells Ovalocytes Stomatocytes [place] Bodies Echinocytes Acanthocytes (Spur) Rouleaux RBC Agglutinates Schistocytes RBC Morph Comment Sezary Cell PT INR Sodium 141 Potassium 4.4 Chloride 108 H Carbon Dioxide 26 Anion Gap 8.0 BUN 29 H Creatinine 1.20 Est Cr Clr Drug Dosing 69.8 Est GFR ( Amer) 70.6 Est GFR (Non-Af Amer) 60.9 BUN/Creatinine Ratio 23.8 H Glucose 102 H POC Glucose 98 Lactate Calcium 8.6 Magnesium 2.4 Total Bilirubin 0.6 Direct Bilirubin 0.2 AST 41 H ALT 39 Alkaline Phosphatase 197 H Total Creatine Kinase 130 Troponin I < 0.015 NT-Pro-B Natriuret Pep 562 Total Protein 8.0 Albumin 3.5 Lipase 401 H Random Cortisol Nasal Screen MRSA (PCR) Ethyl Alcohol mg/dL 09/05/18 09/06/18 09/06/18 23:58 00:01 00:10 WBC RBC Hgb Hct MCV MCH MCHC RDW Std Deviation RDW Coeff of Clarissa Plt Count MPV Immature Gran % (Auto) Neut % (Auto) Lymph % (Auto) [place] % (Auto) Eos % (Auto) Baso % (Auto) Immature Gran # (Auto) Neut # (Auto) Lymph # (Auto) [place] # (Auto) Eos # (Auto) Baso # (Auto) Absolute Nucleated RBC Nucleated RBC % (auto) Neutrophils % (Manual) Band Neutrophils % Lymphocytes % (Manual) Prolymphocyte % Reactive Lymphs % (Man) Monocytes % (Manual) Eosinophils % (Manual) Basophils % (Manual) Metamyelocytes % (Man) Myelocytes % (Man) Promyelocytes % (Man) Blast Cells % (Manual) Plasma Cell % (Manual) Other Cells % Nucleated RBC % Neutrophils # (Manual) Band Neutrophils # Total Absolute Neuts Lymphocytes # (Manual) Prolymphocyte # Reactive Lymphs # Total Abs Lymphocytes Monocytes # (Manual) Eosinophils # (Manual) Basophils # (Manual) Metamyelocytes # (Man) Myelocytes # (Manual) Promyelocytes # (Man) Blast Cells # (Man) Plasma Cell # (Manual) Other Cells # Nucleated RBCs # (Man) Hypersegmented Neuts Hyposegmented Neuts Hypogranular Neuts Large Granular Lymphs # Lrg Granular Lymphs Hairy Cells Smudge Cells Toxic Granulation Toxic Vacuolation Dohle Bodies Sherry Rods Platelet Estimate Hypogranular Platelets Clumped Platelets Giant Platelets Platelet Satelliting RBC Morphology Polychromasia Hypochromasia Poikilocytosis Basophilic Stippling Anisocytosis Microcytosis Macrocytosis Spherocytes Pappenheimer Bodies Sickle Cells Target Cells Tear Drop Cells Ovalocytes Stomatocytes [place] Bodies Echinocytes Acanthocytes (Spur) Rouleaux RBC Agglutinates Schistocytes RBC Morph Comment Sezary Cell PT INR Sodium Potassium Chloride Carbon Dioxide Anion Gap BUN Creatinine Est Cr Clr Drug Dosing Est GFR ( Amer) Est GFR (Non-Af Amer) BUN/Creatinine Ratio Glucose POC Glucose 95 Lactate 0.9 Calcium Magnesium Total Bilirubin Direct Bilirubin AST ALT Alkaline Phosphatase Total Creatine Kinase Troponin I NT-Pro-B Natriuret Pep Total Protein Albumin Lipase Random Cortisol Nasal Screen MRSA (PCR) Ethyl Alcohol mg/dL < 3.0 09/06/18 09/06/18 09/06/18 00:39 00:56 01:27 WBC RBC Hgb Hct MCV MCH MCHC RDW Std Deviation RDW Coeff of Clarissa Plt Count MPV Immature Gran % (Auto) Neut % (Auto) Lymph % (Auto) [place] % (Auto) Eos % (Auto) Baso % (Auto) Immature Gran # (Auto) Neut # (Auto) Lymph # (Auto) [place] # (Auto) Eos # (Auto) Baso # (Auto) Absolute Nucleated RBC Nucleated RBC % (auto) Neutrophils % (Manual) Band Neutrophils % Lymphocytes % (Manual) Prolymphocyte % Reactive Lymphs % (Man) Monocytes % (Manual) Eosinophils % (Manual) Basophils % (Manual) Metamyelocytes % (Man) Myelocytes % (Man) Promyelocytes % (Man) Blast Cells % (Manual) Plasma Cell % (Manual) Other Cells % Nucleated RBC % Neutrophils # (Manual) Band Neutrophils # Total Absolute Neuts Lymphocytes # (Manual) Prolymphocyte # Reactive Lymphs # Total Abs Lymphocytes Monocytes # (Manual) Eosinophils # (Manual) Basophils # (Manual) Metamyelocytes # (Man) Myelocytes # (Manual) Promyelocytes # (Man) Blast Cells # (Man) Plasma Cell # (Manual) Other Cells # Nucleated RBCs # (Man) Hypersegmented Neuts Hyposegmented Neuts Hypogranular Neuts Large Granular Lymphs # Lrg Granular Lymphs Hairy Cells Smudge Cells Toxic Granulation Toxic Vacuolation Dohle Bodies Sherry Rods Platelet Estimate Hypogranular Platelets Clumped Platelets Giant Platelets Platelet Satelliting RBC Morphology Polychromasia Hypochromasia Poikilocytosis Basophilic Stippling Anisocytosis Microcytosis Macrocytosis Spherocytes Pappenheimer Bodies Sickle Cells Target Cells Tear Drop Cells Ovalocytes Stomatocytes [place] Bodies Echinocytes Acanthocytes (Spur) Rouleaux RBC Agglutinates Schistocytes RBC Morph Comment Sezary Cell PT INR Sodium Potassium Chloride Carbon Dioxide Anion Gap BUN Creatinine Est Cr Clr Drug Dosing Est GFR ( Amer) Est GFR (Non-Af Amer) BUN/Creatinine Ratio Glucose POC Glucose 88 179 H 130 H Lactate Calcium Magnesium Total Bilirubin Direct Bilirubin AST ALT Alkaline Phosphatase Total Creatine Kinase Troponin I NT-Pro-B Natriuret Pep Total Protein Albumin Lipase Random Cortisol Nasal Screen MRSA (PCR) Ethyl Alcohol mg/dL 09/06/18 09/06/18 09/06/18 01:58 02:52 03:40 WBC RBC Hgb Hct MCV MCH MCHC RDW Std Deviation RDW Coeff of Clarissa Plt Count MPV Immature Gran % (Auto) Neut % (Auto) Lymph % (Auto) [place] % (Auto) Eos % (Auto) Baso % (Auto) Immature Gran # (Auto) Neut # (Auto) Lymph # (Auto) [place] # (Auto) Eos # (Auto) Baso # (Auto) Absolute Nucleated RBC Nucleated RBC % (auto) Neutrophils % (Manual) Band Neutrophils % Lymphocytes % (Manual) Prolymphocyte % Reactive Lymphs % (Man) Monocytes % (Manual) Eosinophils % (Manual) Basophils % (Manual) Metamyelocytes % (Man) Myelocytes % (Man) Promyelocytes % (Man) Blast Cells % (Manual) Plasma Cell % (Manual) Other Cells % Nucleated RBC % Neutrophils # (Manual) Band Neutrophils # Total Absolute Neuts Lymphocytes # (Manual) Prolymphocyte # Reactive Lymphs # Total Abs Lymphocytes Monocytes # (Manual) Eosinophils # (Manual) Basophils # (Manual) Metamyelocytes # (Man) Myelocytes # (Manual) Promyelocytes # (Man) Blast Cells # (Man) Plasma Cell # (Manual) Other Cells # Nucleated RBCs # (Man) Hypersegmented Neuts Hyposegmented Neuts Hypogranular Neuts Large Granular Lymphs # Lrg Granular Lymphs Hairy Cells Smudge Cells Toxic Granulation Toxic Vacuolation Dohle Bodies Sherry Rods Platelet Estimate Hypogranular Platelets Clumped Platelets Giant Platelets Platelet Satelliting RBC Morphology Polychromasia Hypochromasia Poikilocytosis Basophilic Stippling Anisocytosis Microcytosis Macrocytosis Spherocytes Pappenheimer Bodies Sickle Cells Target Cells Tear Drop Cells Ovalocytes Stomatocytes [place] Bodies Echinocytes Acanthocytes (Spur) Rouleaux RBC Agglutinates Schistocytes RBC Morph Comment Sezary Cell PT INR Sodium Potassium Chloride Carbon Dioxide Anion Gap BUN Creatinine Est Cr Clr Drug Dosing Est GFR ( Amer) Est GFR (Non-Af Amer) BUN/Creatinine Ratio Glucose POC Glucose 122 H 99 82 Lactate Calcium Magnesium Total Bilirubin Direct Bilirubin AST ALT Alkaline Phosphatase Total Creatine Kinase Troponin I NT-Pro-B Natriuret Pep Total Protein Albumin Lipase Random Cortisol Nasal Screen MRSA (PCR) Ethyl Alcohol mg/dL 09/06/18 09/06/18 09/06/18 04:15 04:46 05:12 WBC RBC Hgb Hct MCV MCH MCHC RDW Std Deviation RDW Coeff of Clarissa Plt Count MPV Immature Gran % (Auto) Neut % (Auto) Lymph % (Auto) [place] % (Auto) Eos % (Auto) Baso % (Auto) Immature Gran # (Auto) Neut # (Auto) Lymph # (Auto) [place] # (Auto) Eos # (Auto) Baso # (Auto) Absolute Nucleated RBC Nucleated RBC % (auto) Neutrophils % (Manual) Band Neutrophils % Lymphocytes % (Manual) Prolymphocyte % Reactive Lymphs % (Man) Monocytes % (Manual) Eosinophils % (Manual) Basophils % (Manual) Metamyelocytes % (Man) Myelocytes % (Man) Promyelocytes % (Man) Blast Cells % (Manual) Plasma Cell % (Manual) Other Cells % Nucleated RBC % Neutrophils # (Manual) Band Neutrophils # Total Absolute Neuts Lymphocytes # (Manual) Prolymphocyte # Reactive Lymphs # Total Abs Lymphocytes Monocytes # (Manual) Eosinophils # (Manual) Basophils # (Manual) Metamyelocytes # (Man) Myelocytes # (Manual) Promyelocytes # (Man) Blast Cells # (Man) Plasma Cell # (Manual) Other Cells # Nucleated RBCs # (Man) Hypersegmented Neuts Hyposegmented Neuts Hypogranular Neuts Large Granular Lymphs # Lrg Granular Lymphs Hairy Cells Smudge Cells Toxic Granulation Toxic Vacuolation Dohle Bodies Sherry Rods Platelet Estimate Hypogranular Platelets Clumped Platelets Giant Platelets Platelet Satelliting RBC Morphology Polychromasia Hypochromasia Poikilocytosis Basophilic Stippling Anisocytosis Microcytosis Macrocytosis Spherocytes Pappenheimer Bodies Sickle Cells Target Cells Tear Drop Cells Ovalocytes Stomatocytes [place] Bodies Echinocytes Acanthocytes (Spur) Rouleaux RBC Agglutinates Schistocytes RBC Morph Comment Sezary Cell PT INR Sodium 142 Potassium 4.3 Chloride 113 H Carbon Dioxide 23 Anion Gap 6.0 BUN 34 H Creatinine 1.21 Est Cr Clr Drug Dosing 69.1 Est GFR ( Amer) 69.9 Est GFR (Non-Af Amer) 60.3 BUN/Creatinine Ratio 28.2 H Glucose 91 POC Glucose 63 L* Lactate Calcium 7.5 L Magnesium 2.3 Total Bilirubin 0.5 Direct Bilirubin 0.2 AST 45 H ALT 36 Alkaline Phosphatase 166 H Total Creatine Kinase Troponin I NT-Pro-B Natriuret Pep Total Protein 6.2 L D Albumin 2.7 L Lipase 165 Random Cortisol Nasal Screen MRSA (PCR) Negative Ethyl Alcohol mg/dL 09/06/18 09/06/18 09/06/18 05:12 05:12 05:12 WBC Cancelled RBC Cancelled Hgb Cancelled Hct Cancelled MCV Cancelled MCH Cancelled MCHC Cancelled RDW Std Deviation Cancelled RDW Coeff of Clarissa Cancelled Plt Count Cancelled MPV Cancelled Immature Gran % (Auto) Cancelled Neut % (Auto) Cancelled Lymph % (Auto) Cancelled [place] % (Auto) Cancelled Eos % (Auto) Cancelled Baso % (Auto) Cancelled Immature Gran # (Auto) Cancelled Neut # (Auto) Cancelled Lymph # (Auto) Cancelled [place] # (Auto) Cancelled Eos # (Auto) Cancelled Baso # (Auto) Cancelled Absolute Nucleated RBC Cancelled Nucleated RBC % (auto) Cancelled Neutrophils % (Manual) Cancelled Band Neutrophils % Cancelled Lymphocytes % (Manual) Cancelled Prolymphocyte % Cancelled Reactive Lymphs % (Man) Cancelled Monocytes % (Manual) Cancelled Eosinophils % (Manual) Cancelled Basophils % (Manual) Cancelled Metamyelocytes % (Man) Cancelled Myelocytes % (Man) Cancelled Promyelocytes % (Man) Cancelled Blast Cells % (Manual) Cancelled Plasma Cell % (Manual) Cancelled Other Cells % Cancelled Nucleated RBC % Cancelled Neutrophils # (Manual) Cancelled Band Neutrophils # Cancelled Total Absolute Neuts Cancelled Lymphocytes # (Manual) Cancelled Prolymphocyte # Cancelled Reactive Lymphs # Cancelled Total Abs Lymphocytes Cancelled Monocytes # (Manual) Cancelled Eosinophils # (Manual) Cancelled Basophils # (Manual) Cancelled Metamyelocytes # (Man) Cancelled Myelocytes # (Manual) Cancelled Promyelocytes # (Man) Cancelled Blast Cells # (Man) Cancelled Plasma Cell # (Manual) Cancelled Other Cells # Cancelled Nucleated RBCs # (Man) Cancelled Hypersegmented Neuts Cancelled Hyposegmented Neuts Cancelled Hypogranular Neuts Cancelled Large Granular Lymphs Cancelled # Lrg Granular Lymphs Cancelled Hairy Cells Cancelled Smudge Cells Cancelled Toxic Granulation Cancelled Toxic Vacuolation Cancelled Dohle Bodies Cancelled Sherry Rods Cancelled Platelet Estimate Cancelled Hypogranular Platelets Cancelled Clumped Platelets Cancelled Giant Platelets Cancelled Platelet Satelliting Cancelled RBC Morphology Cancelled Polychromasia Cancelled Hypochromasia Cancelled Poikilocytosis Cancelled Basophilic Stippling Cancelled Anisocytosis Cancelled Microcytosis Cancelled Macrocytosis Cancelled Spherocytes Cancelled Pappenheimer Bodies Cancelled Sickle Cells Cancelled Target Cells Cancelled Tear Drop Cells Cancelled Ovalocytes Cancelled Stomatocytes Cancelled [place] Bodies Cancelled Echinocytes Cancelled Acanthocytes (Spur) Cancelled Rouleaux Cancelled RBC Agglutinates Cancelled Schistocytes Cancelled RBC Morph Comment Cancelled Sezary Cell Cancelled PT INR Sodium Potassium Chloride Carbon Dioxide Anion Gap BUN Creatinine Est Cr Clr Drug Dosing Est GFR ( Amer) Est GFR (Non-Af Amer) BUN/Creatinine Ratio Glucose POC Glucose Lactate 1.4 Calcium Magnesium Total Bilirubin Direct Bilirubin AST ALT Alkaline Phosphatase Total Creatine Kinase Troponin I NT-Pro-B Natriuret Pep Total Protein Albumin Lipase Random Cortisol 21.49 Nasal Screen MRSA (PCR) Ethyl Alcohol mg/dL 09/06/18 09/06/18 09/06/18 05:45 06:08 06:47 WBC 5.80 RBC 3.56 L Hgb 10.9 L Hct 34.9 L MCV 98.0 MCH 30.6 MCHC 31.2 L RDW Std Deviation 57.7 H RDW Coeff of Clarissa 16.0 H Plt Count 221 MPV 10.4 Immature Gran % (Auto) 0.5 Neut % (Auto) 85.0 Lymph % (Auto) 6.2 [place] % (Auto) 6.7 Eos % (Auto) 1.4 Baso % (Auto) 0.2 Immature Gran # (Auto) 0.03 H Neut # (Auto) 4.93 Lymph # (Auto) 0.36 L [place] # (Auto) 0.39 Eos # (Auto) 0.08 Baso # (Auto) 0.01 Absolute Nucleated RBC Nucleated RBC % (auto) Neutrophils % (Manual) Band Neutrophils % Lymphocytes % (Manual) Prolymphocyte % Reactive Lymphs % (Man) Monocytes % (Manual) Eosinophils % (Manual) Basophils % (Manual) Metamyelocytes % (Man) Myelocytes % (Man) Promyelocytes % (Man) Blast Cells % (Manual) Plasma Cell % (Manual) Other Cells % Nucleated RBC % Neutrophils # (Manual) Band Neutrophils # Total Absolute Neuts Lymphocytes # (Manual) Prolymphocyte # Reactive Lymphs # Total Abs Lymphocytes Monocytes # (Manual) Eosinophils # (Manual) Basophils # (Manual) Metamyelocytes # (Man) Myelocytes # (Manual) Promyelocytes # (Man) Blast Cells # (Man) Plasma Cell # (Manual) Other Cells # Nucleated RBCs # (Man) Hypersegmented Neuts Hyposegmented Neuts Hypogranular Neuts Large Granular Lymphs # Lrg Granular Lymphs Hairy Cells Smudge Cells Toxic Granulation Toxic Vacuolation Dohle Bodies Sherry Rods Platelet Estimate Hypogranular Platelets Clumped Platelets Giant Platelets Platelet Satelliting RBC Morphology Polychromasia Hypochromasia Poikilocytosis Basophilic Stippling Anisocytosis Microcytosis Macrocytosis Spherocytes Pappenheimer Bodies Sickle Cells Target Cells Tear Drop Cells Ovalocytes Stomatocytes [place] Bodies Echinocytes Acanthocytes (Spur) Rouleaux RBC Agglutinates Schistocytes RBC Morph Comment Sezary Cell PT INR Sodium Potassium Chloride Carbon Dioxide Anion Gap BUN Creatinine Est Cr Clr Drug Dosing Est GFR ( Amer) Est GFR (Non-Af Amer) BUN/Creatinine Ratio Glucose POC Glucose 117 H 147 H Lactate Calcium Magnesium Total Bilirubin Direct Bilirubin AST ALT Alkaline Phosphatase Total Creatine Kinase Troponin I NT-Pro-B Natriuret Pep Total Protein Albumin Lipase Random Cortisol Nasal Screen MRSA (PCR) Ethyl Alcohol mg/dL 09/06/18 09/06/18 09/06/18 08:05 08:24 11:15 WBC RBC Hgb Hct MCV MCH MCHC RDW Std Deviation RDW Coeff of Clarissa Plt Count MPV Immature Gran % (Auto) Neut % (Auto) Lymph % (Auto) [place] % (Auto) Eos % (Auto) Baso % (Auto) Immature Gran # (Auto) Neut # (Auto) Lymph # (Auto) [place] # (Auto) Eos # (Auto) Baso # (Auto) Absolute Nucleated RBC Nucleated RBC % (auto) Neutrophils % (Manual) Band Neutrophils % Lymphocytes % (Manual) Prolymphocyte % Reactive Lymphs % (Man) Monocytes % (Manual) Eosinophils % (Manual) Basophils % (Manual) Metamyelocytes % (Man) Myelocytes % (Man) Promyelocytes % (Man) Blast Cells % (Manual) Plasma Cell % (Manual) Other Cells % Nucleated RBC % Neutrophils # (Manual) Band Neutrophils # Total Absolute Neuts Lymphocytes # (Manual) Prolymphocyte # Reactive Lymphs # Total Abs Lymphocytes Monocytes # (Manual) Eosinophils # (Manual) Basophils # (Manual) Metamyelocytes # (Man) Myelocytes # (Manual) Promyelocytes # (Man) Blast Cells # (Man) Plasma Cell # (Manual) Other Cells # Nucleated RBCs # (Man) Hypersegmented Neuts Hyposegmented Neuts Hypogranular Neuts Large Granular Lymphs # Lrg Granular Lymphs Hairy Cells Smudge Cells Toxic Granulation Toxic Vacuolation Dohle Bodies Sherry Rods Platelet Estimate Hypogranular Platelets Clumped Platelets Giant Platelets Platelet Satelliting RBC Morphology Polychromasia Hypochromasia Poikilocytosis Basophilic Stippling Anisocytosis Microcytosis Macrocytosis Spherocytes Pappenheimer Bodies Sickle Cells Target Cells Tear Drop Cells Ovalocytes Stomatocytes [place] Bodies Echinocytes Acanthocytes (Spur) Rouleaux RBC Agglutinates Schistocytes RBC Morph Comment Sezary Cell PT 11.4 INR 1.1 Sodium Potassium Chloride Carbon Dioxide Anion Gap BUN Creatinine Est Cr Clr Drug Dosing Est GFR ( Amer) Est GFR (Non-Af Amer) BUN/Creatinine Ratio Glucose POC Glucose 170 H 247 H Lactate Calcium Magnesium Total Bilirubin Direct Bilirubin AST ALT Alkaline Phosphatase Total Creatine Kinase Troponin I NT-Pro-B Natriuret Pep Total Protein Albumin Lipase Random Cortisol Nasal Screen MRSA (PCR) Ethyl Alcohol mg/dL 09/06/18 16:24 WBC RBC Hgb Hct MCV MCH MCHC RDW Std Deviation RDW Coeff of Clarissa Plt Count MPV Immature Gran % (Auto) Neut % (Auto) Lymph % (Auto) [place] % (Auto) Eos % (Auto) Baso % (Auto) Immature Gran # (Auto) Neut # (Auto) Lymph # (Auto) [place] # (Auto) Eos # (Auto) Baso # (Auto) Absolute Nucleated RBC Nucleated RBC % (auto) Neutrophils % (Manual) Band Neutrophils % Lymphocytes % (Manual) Prolymphocyte % Reactive Lymphs % (Man) Monocytes % (Manual) Eosinophils % (Manual) Basophils % (Manual) Metamyelocytes % (Man) Myelocytes % (Man) Promyelocytes % (Man) Blast Cells % (Manual) Plasma Cell % (Manual) Other Cells % Nucleated RBC % Neutrophils # (Manual) Band Neutrophils # Total Absolute Neuts Lymphocytes # (Manual) Prolymphocyte # Reactive Lymphs # Total Abs Lymphocytes Monocytes # (Manual) Eosinophils # (Manual) Basophils # (Manual) Metamyelocytes # (Man) Myelocytes # (Manual) Promyelocytes # (Man) Blast Cells # (Man) Plasma Cell # (Manual) Other Cells # Nucleated RBCs # (Man) Hypersegmented Neuts Hyposegmented Neuts Hypogranular Neuts Large Granular Lymphs # Lrg Granular Lymphs Hairy Cells Smudge Cells Toxic Granulation Toxic Vacuolation Dohle Bodies Sherry Rods Platelet Estimate Hypogranular Platelets Clumped Platelets Giant Platelets Platelet Satelliting RBC Morphology Polychromasia Hypochromasia Poikilocytosis Basophilic Stippling Anisocytosis Microcytosis Macrocytosis Spherocytes Pappenheimer Bodies Sickle Cells Target Cells Tear Drop Cells Ovalocytes Stomatocytes [place] Bodies Echinocytes Acanthocytes (Spur) Rouleaux RBC Agglutinates Schistocytes RBC Morph Comment Sezary Cell PT INR Sodium Potassium Chloride Carbon Dioxide Anion Gap BUN Creatinine Est Cr Clr Drug Dosing Est GFR ( Amer) Est GFR (Non-Af Amer) BUN/Creatinine Ratio Glucose POC Glucose 213 H Lactate Calcium Magnesium Total Bilirubin Direct Bilirubin AST ALT Alkaline Phosphatase Total Creatine Kinase Troponin I NT-Pro-B Natriuret Pep Total Protein Albumin Lipase Random Cortisol Nasal Screen MRSA (PCR) Ethyl Alcohol mg/dL Diagnostic Findings X-ray repeated today: 1. Unchanging parenchymal infiltrate right base. 2. Unchanging to slightly increased components of pulmonary vascular congestion
[2018-09-06 18:53] LABS: D Dimer 1180 ug/L FEU (0-500)
[2018-09-06] MEDS ORDERED: OPTIRAY 320 125ml IV PRN (20:30)
--- NOTE | 2018-09-06 20:45 | CT Scan Report ---
CT angio chest PE protocol CLINICAL HISTORY: 68 years-old Male presenting with shortness of breath, clinical concern for pulmona ry embolus. TECHNIQUE: Multidetector CT angiography of the chest was performed after administration of intravenou s contrast. 3-D volumetric and/or maximum intensity projection (MIP) images were subsequently reconst ructed for review. IV contrast: 119 mL of Optiray 320. One or more dose lowering techniques were used consistent with the principles of ALARA (as low as reasonably achievable), including automatic expos ure control, mA or kV adjustment to individual patient size, and/or use of iterative reconstruction. COMPARISON: Chest x-ray from earlier today. CT DOSE (mGy.cm): The estimated cumulative dose is 502.11 mGy.cm. 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 Pulmonary vasculature: The study is suboptimal for the assessment of the pulmonary vascular tree secondary to respiratory mo tion artifact. Allowing for limited image quality, no central filling defect to suggest pulmonary emb olus. Main pulmonary artery is not enlarged. No flattening of the interventricular septum. No intraca rdiac filling defect. Reflux of contrast into the IVC and hepatic veins. This likely indicates elevat ed right heart pressure. Remaining chest: Soft tissues: Normal thyroid and thoracic inlet. Gynecomastia. Significant body wall edema. No axilla ry, supraclavicular, mediastinal, or hilar lymphadenopathy. Atherosclerosis of the aorta. Top normal heart size. Coronary artery calcification. Moderate bilateral simple pleural effusions. Trace perihep atic ascites. Lungs and airways: No pneumothorax. Central airways patent. Pulmonary arteries enlarged relative to adjacent bronchi. No interlobular septal thickening. Extensive dependent consolidation volume loss pr edominantly in the lower lobes consistent with passive atelectasis. Respiratory motion artifact degra marlys evaluation of the aerated lung parenchyma. Allowing for this, no other focal infiltrate is appare nt. Musculoskeletal: Degenerative changes of the spine. IMPRESSION: 1. Allowing for suboptimal image quality, no evidence of pulmonary embolus. 2. Findings consistent with volume overload with elevated right heart pressure, pulmonary arterial e nlargement, body wall edema, moderate bilateral pleural effusions, and trace perihepatic ascites. 3. Extensive passive atelectasis predominantly in the lower lobes. Electronically signed by: Kj Ruelas M.D. 09/06/2018 8:44 PM
[2018-09-06] MEDS ORDERED: VANCOMYCIN HCL 1,500 MG in SODIUM CHLORIDE 0.9% 500 ML IV SCH (21:00)
[2018-09-06] MEDS: ATORVASTATIN 40 MG TAB PO SCH (22:04)
[2018-09-06] MEDS: INSULIN GLARGINE 100 UNIT/ML VIAL SC SCH (22:07)
[2018-09-07] MEDS: INSULIN ASPART 100 UNITS/ML 3 ML PEN SC SCH ×7 (00:01→23:24)
[2018-09-07] MEDS: VANCOMYCIN HCL 1,500 MG in SODIUM CHLORIDE 0.9% 500 ML IV SCH (03:57)
[2018-09-07] MEDS: DOXYCYCLINE HYCLATE 100 MG in DEXTROSE 5% 100 ML IV SCH ×2 (06:05→18:04)
[2018-09-07] MEDS: HEPARIN SOD 5,000 UNIT/0.5 ML VIAL SQ SCH ×3 (06:06→20:54)
[2018-09-07] MEDS: PIPERACILLIN/TAZOBACTAM 3.375 GM/115 ML BAG IV SCH ×3 (08:02→23:23)
[2018-09-07] MEDS: ASPIRIN 81 MG ECTAB PO SCH (09:01)
[2018-09-07] MEDS: FOLIC ACID 1 MG TAB PO SCH (09:01)
[2018-09-07] MEDS: CLOPIDOGREL BISULFATE 75 MG TAB PO SCH (09:01)
[2018-09-07] MEDS: MAGNESIUM OXIDE 400 MG TAB PO SCH (09:01)
[2018-09-07] MEDS: INSULIN GLARGINE 100 UNIT/ML VIAL SC SCH (09:02)
[2018-09-07] MEDS: methylPREDNISolone 40 MG in SYRINGE 0 ML IV SCH ×2 (09:03→20:52)
[2018-09-07 09:29] LABS: BUN Creatinine Ratio 22.8 (10-20); Calcium 7.9 mg/dl (8.5-10.1); Creatinine Clr Calc Pharmacy 44.3 ml/min; Est GFR (African American) 40.2; Est GFR (Non-African American) 34.7; Magnesium 2.3 mg/dl (1.8-2.4); Potassium 4.8 mmol/L (3.5-5.1)
[2018-09-07 09:32] LABS: Albumin Globulin Ratio 0.8 (0.9-2); Bilirubin,Total 0.4 mg/dl (0.2-1); Globulin 3.8 gm/dl (2.5-4.0); Phosphorus 4.2 mg/dl (2.5-4.9); Total Protein 6.8 gm/dl (6.4-8.2)
[2018-09-07] MEDS ORDERED: INSULIN GLARGINE 100 UNIT/ML VIAL SC ONE (11:45)
--- NOTE | 2018-09-07 11:47 | Pharmacy Report ---
Pharmacy Glycemic Short Note 2 - Date of Service September 07, 2018 - Glycemic Short BSG Results (Last 24 hours): 09/06/18 09/06/18 09/06/18 16:24 21:44 23:47 Glucose POC Glucose 213 H 150 H 187 H 09/07/18 09/07/18 09/07/18 03:51 06:56 08:56 Glucose 266 H POC Glucose 198 H 185 H OUTPATIENT ANTIDIABETIC REGIMEN: * Per Discharge Instructions from most recent hospitalization * Lantus 40 units daily * Novolog 5 units w/ meals * Glimepiride 2mg PO Q AM * Metformin 500mg BID ASSESSMENT: 09/07 * BSGs have climbed since the start of Solu-Medrol IV for pna * Today is day 2 of of planned Solu-Medrol therapy * Fasting BSG 185 this AM w/ 10 units of Lantus on board (only 50% of planned dose) and after receiving 4 units of correction overnight. Will titrate basal dose up another 20% due to continued steroid use. * Pre-lunch BSG now up to 266, indicating need for larger prandial insulin doses (a CR of 1:7 was used w/ breakfast). Will increase both CF / CR doses * Additional BSG checks may be required overnight to combat hyperglycemia 3/4 * Type 2 diabetic admitted w/ mental status changes and hypoglycemia. * Pt did require D10 1/2 NS infusion to prevent recurrent hypoglycemia, likely due to excess basal insulin + glimepiride * Dextrose containing IVF's d/c'd this AM and diet has been ordered * Last admission reviewed, it appears he required only 20-30 units of basal insulin to achieve fasting goals * Will base basal/bolus regimen upon an anticipated total daily need of ~50-60 units while tolerating a diet PLAN FOR INPATIENT GLYCEMIC CONTROL: * Hold outpatient oral diabetes medications (metformin/glimepiride) * Basal insulin (increase) * Lantus 4 units additional w/ lunch, then 12 units SQ BID * Bolus insulin (increase) * NovoLog per scale ACHS and at 0000 + 0400 * Goal Range: Low 120 mg/dL - High 160 mg/dL * Correction Factor: 20 mg/dL/unit * Nutritional / Prandial insulin per carb ratio of 1 unit per 6 grams CHO consumed PLAN FOR DISCHARGE: * to be determined. A simplified regimen would be beneficial to help prevent recurrent hypoglycemic episodes. Would recommend d/c of sulfonlyurea (glimepiride) as this can contribute to hypoglycemia when used w/ insulin. His basal insulin dose may be rather heavy as well based upon prior hospital admission data (may need less than 40 units daily on discharge). Frequent BSG checks are necessary in a patient on multiple daily doses of insulin. Patient education needed.
[2018-09-07] MEDS ORDERED: FUROSEMIDE 20 MG in SYRINGE 0 ML IV ONE (14:00)
--- NOTE | 2018-09-07 15:00 | Medical Student Progress Note ---
Date of Service September 07, 2018 Assessment & Plan (1) Shortness of breath: 68yo male with DMII, CKD III, CHF (EF 35-40%), and CAD (recently admitted for a fungal UTI an being treated as outpt for a L heal ulcer) admitted for AMS, concern for sepsis, and worsening shortness of breath. AMS resolved with blood sugar correction. CXR suggested RLL PNM, but CTA revealed b/l plural effusions as well as volume overload and increased right heart pressure. Pt has been afebrile, WBC WNL-- likely not PNA. Pt most likely has fluid overload due to worsening CHF. Low albumin/oncotic pressure leading to b/l pleural effusions. Pt has positive fluid balance of 4.6L during hospital stay-- he received 3L of fluids over a relatively short prior of time in the ED for hypotension. Will start diuresis with lasix 20MG BID. Cr on 09/06 was 1.2. (2) Sepsis: There was initial concern for sepsis due to AMS, increased RR, hypothermia. Normal lactic and an equivocal UA. AMS- resolved-- was likely due to hypoglycemia. Hypothermia - resolved- was likely due to hypoglycemia. Hypotension-- resolved-- ensued after rearming and may have been related to vasodilation rather than sepsis. (3) Diabetes type 2, uncontrolled: Hypoglycemia has resolved; pt education about DM medication and diet Subjective 68yo male with DMII, CKD III, CHF (EF 35-40%), and CAD admitted for AMS, concern for sepsis, and SOB. Pt states he is still gasping for air when he speaks as well as with exertion/activity. Has an occasional non-productive cough. Pt has had b/l edema of LE for about a month, which has recently worsened. Wound care was concerned b/c pt has a shallow left heel ulcer; they performed doppler U/S and MRI; pt's PCP expressed concern with starting HCTZ b/c of his kidney fxn and discussed salt and fluid restriction. Pt denies F/C/N/V. Review of Systems GENERAL, CONSTITUTIONAL- Some weakness, fatigue. No Fever, Chills EYES, VISION- No Visual Changes EARS, NOSE, THROAT- No Hearing loss HEART, CARDIOVASCULAR- Shortness of breath with exertion, b/l LE edema. No Chest pain or pressure, Arrhythmia or palpitations, Blood clots, Varicose Veins, Cramping in thighs RESPIRATORY- Mild non-productive cough, Shortness of breath with exertion. No Wheezing. GASTROINTESTINAL- No Abdominal pain, Heartburn, Bloody stool GENITOURINARY- No Frequent urination, Urgency MUSCULOSKELETAL- No Joint pain or swelling, Restricted motion, Musculoskeletal pain SKIN & INTEGUMENTARY- Shallow left heel ulcer for past year. NEUROLOGICAL- Some Numbness in b/l feet. PSYCHIATRIC- No Nervousness, anxiety, Depression ENDOCRINE- No Heat or cold intolerance, Excessive thirst HEMATOLOGIC/LYMPHATIC- No Abnormal bleeding, Bleeding ALL/IMMUN- No Allergic reaction, Recurrent infections? Physical Exam Vital Signs (Past 24 Hours): Last Vital Signs Temp 36.8 C 09/07/18 11:56 Pulse 103 H 09/07/18 11:56 Resp 21 09/07/18 11:56 BP 144/82 H 09/07/18 11:56 Pulse Ox 94 09/07/18 11:56 Physical Exam: GENERAL: WD/WN, alter, cooperative HEENT: Head: Atraumatic, normocephalic. Eyes: EOMI, PERRLA,. Nose: No nasal congestion. Throat: No tonsillar erythema, exudates, or enlargement. Mouth: Moist mucous membranes, no lesions. Neck: Supple, no JVD, normal thyroid, no cervical LAD. Nervous System: Mental status: Alert and oriented x 3, good concentration. Cranial nerves II�XII grossly intact. Motor: Strength 5/5 in upper extremities; 4/5 lower extremities Chest/Lung: b/l crackles in middle and lower lobes No rhonchi, wheezing, or rubs. No tenderness to palpation. Heart: Tachycardia Normal S1, S2. No murmurs, rubs, or gallops. Abdomen: Soft, nontender, nondistended, BS present, no hepatosplenomegaly. Extremities: b/l 2+ pitting edema of LE. No clubbing, cyanosis. Results & Data Laboratory Results TSH- 0.831 D-Dimer- 1180 BNP- 917 Blood cultures- 1 of 2 positive for Gram + cocci Diagnostic Findings CT angio chest PE protocol CLINICAL HISTORY: 68 years-old Male presenting with shortness of breath, clinical concern for pulmonary embolus. TECHNIQUE: Multidetector CT angiography of the chest was performed after administration of intravenous contrast. 3-D volumetric and/or maximum intensity projection (MIP) images were subsequently reconstructed for review. IV contrast: 119 mL of Optiray 320. One or more dose lowering techniques were used consistent with the principles of ALARA (as low as reasonably achievable), including automatic exposure control, mA or kV adjustment to individual patient size, and/or use of iterative reconstruction. COMPARISON: Chest x-ray from earlier today. CT DOSE (mGy.cm): The estimated cumulative dose is 502.11 mGy.cm. FINDINGS: Seam Stayer topogram: Hyperinflated lungs. Pulmonary vasculature: The study is suboptimal for the assessment of the pulmonary vascular tree secondary to respiratory motion artifact. Allowing for limited image quality, no central filling defect to suggest pulmonary embolus. Main pulmonary artery is not enlarged. No flattening of the interventricular septum. No intracardiac filling defect. Reflux of contrast into the IVC and hepatic veins. This likely indicates elevated right heart pressure. Remaining chest: Soft tissues: Normal thyroid and thoracic inlet. Gynecomastia. Significant body wall edema. No axillary, supraclavicular, mediastinal, or hilar lymphadenopathy. Atherosclerosis of the aorta. Top normal heart size. Coronary artery calcification. Moderate bilateral simple pleural effusions. Trace perihepatic ascites. Lungs and airways: No pneumothorax. Central airways patent. Pulmonary arteries enlarged relative to adjacent bronchi. No interlobular septal thickening. Extensive dependent consolidation volume loss predominantly in the lower lobes consistent with passive atelectasis. Respiratory motion artifact degrades evaluation of the aerated lung parenchyma. Allowing for this, no other focal infiltrate is apparent. Musculoskeletal: Degenerative changes of the spine. IMPRESSION: 1. Allowing for suboptimal image quality, no evidence of pulmonary embolus. 2. Findings consistent with volume overload with elevated right heart pressure, pulmonary arterial enlargement, body wall edema, moderate bilateral pleural effusions, and trace perihepatic ascites. 3. Extensive passive atelectasis predominantly in the lower lobes. Electronically signed by: Kj Ruelas M.D. 09/06/2018 8:44 PM Dictated: 09/06/182039 Transcribed: 09/06/182039
--- NOTE | 2018-09-07 18:51 | Hospitalist Progress Note ---
Date of Service September 07, 2018 Assessment & Plan (1) Shortness of breath: (2) Sepsis: (3) Diabetes type 2, uncontrolled: 68 y/o M Hx combined CHF, CAD, DM II, CKD III, HTN, HLD, BPH with chronic retention, chronic dietary noncompliance admitted on September 05 2018- secondary to right lower lung pneumonia and sepsis Per report, admitted recent for a fungal UTI an being treated as outpt for a L heal ulcer. Presented in ED with AMS, hypothermia, hypoglycemia and became hypotensive while in the ER Possible metabolic encephalopathy with AMS related to hypoglycemia , Or sepsis Totally resolved. Possible sepsis upon admission although lactric acid was negative however patient was hypothermic, source of infection, increased RR , and mental status change and has elevated pro-calcitonin level Right lower lobe pneumonia, differential diagnosis include aspiration pneumonia or healthcare facility acquired pneumonia, Or aspiration pneumonia, He may aspirated while in the mental status change Prior to admission Has been on broad-spectrum antibiotic coverage, blood culture likely conta mination , will discontinue all antibiotic and start Levaquin Continue nebulizer treatment,And supportive care Hx combined CHF, CAD, Now has mild increased lung congestion, Possible fluid overload after admission which is supported by bilateral lung fine crackles and lower extremity edema as, and lung congestion in chest CT and pleural effusion Cont Lasix , ASA, Plavix, Statin, f/u renal BPH, diabetic, Continue current care Possible acute kidney injury, Left heel wound,Continue wound care Full code - Heparin prophylaxis Subjective still have some cough, Shortness of breath when talking, cough is nonproductive, no wheezing, Denies chest pain palpitation Review of Systems Constitutional: Positive weakness, or fatigue Respiratory: Positive dyspnea on exertion and talking Cardiac: No chest pain,No claudication, No palpitations, Abdomen: No pain, No nausea, No vomiting, No diarrhea, No constipation, No GI bleeding Musculoskeletal: No joint pain, No muscle pain, No calf pain, No problem reported : No dysuria, No urinary frequency, No incontinence, No hematuria Neurologic: No paralysis, No weakness, No numbness/tingling, No vertigo, No balance problems Psychiatric: No depression symptoms, No anhedonism, No anxiety, No insomnia, No substance abuse Heme: No abnormal bleeding/bruising, No clotting problems, No swollen lymph nodes, No night sweats Skin: heel ulceration Which is not new, No color change, No bleeding Physical Exam Vital Signs (Past 24 Hours): Last Vital Signs Temp 36.6 C 09/07/18 16:00 Pulse 100 H 09/07/18 16:00 Resp 23 09/07/18 16:00 BP 146/72 H 09/07/18 16:00 Pulse Ox 96 09/07/18 16:00 Physical Exam: General: Awake alert orientated, mild labored breathingWhen talking ENT: No erythema or exudates, no thrush Eyes: NIKO, EOMI Head and neck: Normocephalic, atraumatic, No JVD, neck is supple. Chest/heart: Nontender, S1,2, RRR, no murmurs, no gallops Lungs: Bilateral lower lung decreased breathing sound, bilateral lower middle lung has crackles Abdomen: Nontender, nondistended, BS+ Neuro: Cranial nerve II through XII is intact there was no local deficits, conversational, follow-up commands, Musculoskeletal: No joint inflammation, muscle tenderness, FROM Skin: No acute rashes - shallow ulcer L heel - no apparent acute infection. Extremities: 2+ edema Results & Data Laboratory Results Laboratory Results - last 24 hr 09/06/18 09/06/18 09/06/18 00:10 18:21 18:21 D-Dimer 1180 H* Sodium Potassium Chloride Carbon Dioxide Anion Gap BUN Creatinine Est Cr Clr Drug Dosing Est GFR ( Amer) Est GFR (Non-Af Amer) BUN/Creatinine Ratio Glucose POC Glucose Calcium Phosphorus Magnesium Total Bilirubin AST ALT Alkaline Phosphatase NT-Pro-B Natriuret Pep 917 H Total Protein Albumin Globulin Albumin/Globulin Ratio Procalcitonin TSH 0.831 Nasal Screen MRSA (PCR) Bld Cult Staph aureus PCR Negative Blood Culture MRSA PCR Negative 09/06/18 09/06/18 09/07/18 21:44 23:47 03:51 D-Dimer Sodium Potassium Chloride Carbon Dioxide Anion Gap BUN Creatinine Est Cr Clr Drug Dosing Est GFR ( Amer) Est GFR (Non-Af Amer) BUN/Creatinine Ratio Glucose POC Glucose 150 H 187 H 198 H Calcium Phosphorus Magnesium Total Bilirubin AST ALT Alkaline Phosphatase NT-Pro-B Natriuret Pep Total Protein Albumin Globulin Albumin/Globulin Ratio Procalcitonin TSH Nasal Screen MRSA (PCR) Bld Cult Staph aureus PCR Blood Culture MRSA PCR 09/07/18 09/07/18 09/07/18 06:56 08:56 09:00 D-Dimer Sodium 139 Potassium 4.8 Chloride 108 H Carbon Dioxide 21 Anion Gap 9.0 BUN 44 H Creatinine 1.91 H D Est Cr Clr Drug Dosing 44.3 Est GFR ( Amer) 40.2 Est GFR (Non-Af Amer) 34.7 BUN/Creatinine Ratio 22.8 H Glucose 266 H POC Glucose 185 H Calcium 7.9 L Phosphorus 4.2 Magnesium 2.3 Total Bilirubin 0.4 AST 36 ALT 43 Alkaline Phosphatase 171 H NT-Pro-B Natriuret Pep Total Protein 6.8 Albumin 3.0 L Globulin 3.8 Albumin/Globulin Ratio 0.8 L Procalcitonin TSH Nasal Screen MRSA (PCR) Negative Bld Cult Staph aureus PCR Blood Culture MRSA PCR 09/07/18 09/07/18 11:31 13:52 D-Dimer Sodium Potassium Chloride Carbon Dioxide Anion Gap BUN Creatinine Est Cr Clr Drug Dosing Est GFR ( Amer) Est GFR (Non-Af Amer) BUN/Creatinine Ratio Glucose POC Glucose 266 H Calcium Phosphorus Magnesium Total Bilirubin AST ALT Alkaline Phosphatase NT-Pro-B Natriuret Pep Total Protein Albumin Globulin Albumin/Globulin Ratio Procalcitonin 5.34 H TSH Nasal Screen MRSA (PCR) Bld Cult Staph aureus PCR Blood Culture MRSA PCR Microbiology 09/06/18 00:10 Blood Blood Culture - Preliminary Coag neg staph not lugdunensis 09/05/18 23:50 Blood Blood Culture - Preliminary No growth to date.
[2018-09-07] MEDS: TAMSULOSIN HCL 0.4 MG CAP PO SCH (20:51)
[2018-09-07] MEDS: METOPROLOL SUCC 50MG EXT REL TAB PO SCH (20:51)
[2018-09-07] MEDS: ATORVASTATIN 40 MG TAB PO SCH (20:51)
[2018-09-07] MEDS ORDERED: FUROSEMIDE 20 MG in SYRINGE 0 ML IV SCH (21:00)
[2018-09-07] MEDS ORDERED: INSULIN GLARGINE 100 UNIT/ML VIAL SC SCH (21:00)
[2018-09-08] MEDS: INSULIN ASPART 100 UNITS/ML 3 ML PEN SC SCH ×7 (03:40→21:22)
[2018-09-08 04:55] LABS: BUN Creatinine Ratio 26.4 (10-20); Calcium 7.9 mg/dl (8.5-10.1); Creatinine Clr Calc Pharmacy 43.8 ml/min; Est GFR (African American) 39.7; Est GFR (Non-African American) 34.3; Magnesium 2.5 mg/dl (1.8-2.4); Potassium 4.8 mmol/L (3.5-5.1)
[2018-09-08 05:02] LABS: Phosphorus 3.2 mg/dl (2.5-4.9)
[2018-09-08] MEDS: DOXYCYCLINE HYCLATE 100 MG in DEXTROSE 5% 100 ML IV SCH (05:14)
[2018-09-08] MEDS: HEPARIN SOD 5,000 UNIT/0.5 ML VIAL SQ SCH ×3 (05:14→21:25)
[2018-09-08] MEDS: MAGNESIUM OXIDE 400 MG TAB PO SCH (07:50)
[2018-09-08] MEDS: CLOPIDOGREL BISULFATE 75 MG TAB PO SCH (07:50)
[2018-09-08] MEDS: LISINOPRIL 2.5 MG TAB PO SCH (07:51)
[2018-09-08] MEDS: METOPROLOL SUCC 50MG EXT REL TAB PO SCH (07:51)
[2018-09-08] MEDS: ASPIRIN 81 MG ECTAB PO SCH (07:51)
[2018-09-08] MEDS: FOLIC ACID 1 MG TAB PO SCH (07:51)
[2018-09-08] MEDS ORDERED: INSULIN GLARGINE 100 UNIT/ML VIAL SC SCH ×2 (09:00→21:00)
--- NOTE | 2018-09-08 10:52 | Pharmacy Report ---
Pharmacy Glycemic Short Note 2 - Date of Service September 08, 2018 - Glycemic Short BSG Results (Last 24 hours): 09/07/18 09/07/18 09/07/18 06:56 11:31 16:33 Glucose POC Glucose 185 H 266 H 229 H 09/07/18 09/07/18 09/08/18 20:06 23:20 03:31 Glucose POC Glucose 215 H 204 H 170 H 09/08/18 09/08/18 04:06 06:50 Glucose 174 H POC Glucose 233 H OUTPATIENT ANTIDIABETIC REGIMEN: * Per Strategic Account Director * Lantus 35 units daily * Novolog 5 units w/ meals * Glimepiride 2mg PO Q AM * was stopped ASSESSMENT: 09/08 * BSGs poorly controlled yesterday due to steroid induced hyperglycemia and underdosing of insulin in the setting of admission for hypoglycemia * Fasting BSG down to 170 overnight however quickly rebounded to 233 this AM * Hospitalist has d/c'd Solu-Medrol IV - would expect greatly improved insulin sensitivity over next 24 hrs * Will continue to titrate insulin doses upwards today, closer to home doses rather than using weight based dosing. simulation educator met with patient and advised that home regimen is most appropriate. His home regimen is heavily basal weighted, will attempt to use same outpt dose with ~50% basal + 50% prandial (TDD ~50 units + glimepiride). * Doses of Novolog (CF and CR) should be reduced proactively to prevent hypoglycemia as the effects of Solu-Medrol dissipate 09/07 * BSGs have climbed since the start of Solu-Medrol IV for pna * Today is day 2 of of planned Solu-Medrol therapy * Fasting BSG 185 this AM w/ 10 units of Lantus on board (only 50% of planned dose) and after receiving 4 units of correction overnight. Will titrate basal dose up another 20% due to continued steroid use. * Pre-lunch BSG now up to 266, indicating need for larger prandial insulin doses (a CR of 1:7 was used w/ breakfast). Will increase both CF / CR doses * Additional BSG checks may be required overnight to combat hyperglycemia 3/4 * Type 2 diabetic admitted w/ mental status changes and hypoglycemia. * Pt did require D10 1/2 NS infusion to prevent recurrent hypoglycemia, likely due to excess basal insulin + glimepiride * Dextrose containing IVF's d/c'd this AM and diet has been ordered * Last admission reviewed, it appears he required only 20-30 units of basal insulin to achieve fasting goals * Will base basal/bolus regimen upon an anticipated total daily need of ~50-60 units while tolerating a diet PLAN FOR INPATIENT GLYCEMIC CONTROL: * Hold outpatient oral diabetes medications (glimepiride) * Basal insulin (increase) * Lantus 20 units SQ Q AM + 5 units this PM if BSG above 140 * Bolus insulin (decrease) * NovoLog per scale ACHS and at 0000 + 0400 * Goal Range: Low 110 mg/dL - High 140 mg/dL * Correction Factor: 25 mg/dL/unit * Nutritional / Prandial insulin per carb ratio of 1 unit per 8 grams CHO consumed PLAN FOR DISCHARGE: * Diabetes education discussed discharge recommendations with me 09/07. She advised resumption of home regimen and attributed hypoglycemic episode to inadequate PO intake.
[2018-09-08] MEDS: INSULIN ASPART 100 UNITS/ML 3 ML PEN SC ONE ×2 (12:43→17:51)
--- NOTE | 2018-09-08 15:07 | Hospitalist Progress Note ---
Date of Service September 08, 2018 Assessment & Plan (1) Shortness of breath: (2) Sepsis: (3) Diabetes type 2, uncontrolled: 68 y/o M Hx combined CHF, CAD, DM II, CKD III, HTN, HLD, BPH with chronic retention, chronic dietary noncompliance admitted on September 05 2018- secondary to right lower lung pneumonia and sepsis Per report, admitted recent for a fungal UTI an being treated as outpt for a L heal ulcer. Presented in ED with AMS, hypothermia, hypoglycemia and became hypotensive while in the ER Possible metabolic encephalopathy with AMS related to hypoglycemia , Or sepsis Totally resolved eventually after admission Possible sepsis upon admission although lactic acid was negative Because of patient was hypothermic, source of infection, increased RR , and mental status change and has elevated pro-calcitonin level, Right lower lobe pneumonia, differential diagnosis include aspiration pneumonia or healthcare facility acquired pneumonia, Or aspiration pneumonia, He may aspirated while in the mental status change Prior to admission Has been on broad-spectrum antibiotic coverage, blood culture likely contamination , Interestingly, no consolidation or infiltration in the chest CT , and a CT has ruled out PE , and there was a lot of congestions and pulmonary edema Therefore patient may have mild clinical pneumonia, and his major condition is CHF exacerbation with volume overload Antibiotic include Vanco and Rocephin were discontinued, and change doxycycline to p.o. we will probably only need 7 days, today is 2/7 days Continue nebulizer treatment,And supportive care Hx combined CHF, CAD, has mild increased lung congestion, Obvious evidence of fluid overload upon admission which is supported by bilateral lung fine crackles and lower extremity edema as, and lung congestion in chest CT and pleural effusion Has been Lasix , ASA, Plavix, Statin, f/u renal , hold Lasix today because of worsening renal function creatinine from 1.9 to 1.93, he still have 1+ edema bilateral lower extreme, his breathing is much better. Another interesting finding is his echo is possible only have mild diastolic CHF with normal LVEF, compared to his previous echo was only 30% EF BPH, diabetic, Continue current care Possible acute kidney injury with worsening creatinine level today Left heel wound, Continue wound care Full code - Heparin prophylaxis Increase activity possible discharge in 1-2 days Subjective still have some cough, generally feeling much better no more shortness of breath when talking, cough is nonproductive, no wheezing, Denies chest pain palpitation Review of Systems Constitutional: Positive weakness, or fatigue, however he is better Respiratory: See above Cardiac: No chest pain,No claudication, No palpitations, Abdomen: No pain, No nausea, No vomiting, No diarrhea, No constipation, No GI bleeding Musculoskeletal: No joint pain, No muscle pain, : No dysuria, No urinary frequency, No incontinence, Neurologic: No paralysis, No weakness, No numbness/tingling, Psychiatric: No depression symptoms, No anhedonism, No anxiety, Heme: No abnormal bleeding/bruising, No clotting problems, Skin: heel ulceration Which is not new, No color change, No bleeding Physical Exam Vital Signs (Past 24 Hours): Last Vital Signs Temp 36.5 C 09/08/18 11:14 Pulse 89 09/08/18 11:14 Resp 18 09/08/18 11:14 BP 134/76 09/08/18 11:14 Pulse Ox 97 09/08/18 11:14 Physical Exam: General: Awake alert orientated, mild labored breathing When talking ENT: No erythema or exudates, no thrush Eyes: NIKO, EOMI Head and neck: Normocephalic, atraumatic, No JVD, neck is supple. Chest/heart: Nontender, S1,2, RRR, no murmurs, no gallops Lungs: Bilateral lower lung decreased breathing sound, no crackles Abdomen: Nontender, nondistended, BS+ Neuro: Cranial nerve II through XII is intact there was no local deficits, conversational, follow-up commands, Musculoskeletal: No joint inflammation, muscle tenderness, FROM Skin: No acute rashes - shallow ulcer L heel - no apparent acute infection. Extremities: 1+ edema Results & Data Laboratory Results Laboratory Results - last 24 hr 09/07/18 09/07/18 09/07/18 16:33 20:06 23:20 Sodium Potassium Chloride Carbon Dioxide Anion Gap BUN Creatinine Est Cr Clr Drug Dosing Est GFR ( Amer) Est GFR (Non-Af Amer) BUN/Creatinine Ratio Glucose POC Glucose 229 H 215 H 204 H Calcium Phosphorus Magnesium 09/08/18 09/08/18 09/08/18 03:31 04:06 06:50 Sodium 139 Potassium 4.8 Chloride 110 H Carbon Dioxide 25 Anion Gap 4.0 BUN 51 H Creatinine 1.93 H Est Cr Clr Drug Dosing 43.8 Est GFR ( Amer) 39.7 Est GFR (Non-Af Amer) 34.3 BUN/Creatinine Ratio 26.4 H Glucose 174 H POC Glucose 170 H 233 H Calcium 7.9 L Phosphorus 3.2 D Magnesium 2.5 H 09/08/18 11:45 Sodium Potassium Chloride Carbon Dioxide Anion Gap BUN Creatinine Est Cr Clr Drug Dosing Est GFR ( Amer) Est GFR (Non-Af Amer) BUN/Creatinine Ratio Glucose POC Glucose 229 H Calcium Phosphorus Magnesium Microbiology 09/06/18 00:10 Blood Blood Culture - Preliminary Coag neg staph not lugdunensis
--- NOTE | 2018-09-08 16:09 | Medical Student Progress Note ---
Date of Service September 08, 2018 Assessment & Plan (1) Shortness of breath: 68yo male with DMII, CKD III, CHF (EF 35-40%), and CAD (recently admitted for a fungal UTI an being treated as outpt for a L heal ulcer) admitted for AMS, concern for sepsis, and worsening shortness of breath. AMS resolved with blood sugar correction. CXR suggested RLL PNM, but CTA revealed b/l plural effusions as well as volume overload and increased right heart pressure. Pt has been afebrile, WBC WNL-- likely not PNA. Pt most likely has fluid overload due to worsening CHF. Low albumin/oncotic pressure leading to b/l pleural effusions. Pt has positive fluid balance of 4.6L during hospital stay-- he received 3L of fluids over a relatively short prior of time in the ED for hypotension. With lasix 20MG BID pt has had negative water balance of 1.2L for past 24hrs, but still positive water balance since admission. Clinically the pt has improved with decreased SOB (still on 2L O2), no crackles, and decreased LE edema. Cr on 09/06 was 1.2. Cr on 09/08 1.93. BUN/Cr of 26 indicates diuresis is too aggressive with decreased renal perfusion. Recent echo did not indicate sys dysfxn, but pt may have diastolic dysfxn-- HF with preserved EF. Will change lasix 20MG QD. Pt may have clinical PNA as well as CHF exacerbation from fluid overload. Clinical PNA may be contributing to SOB (CXR suggested a RLL PNA)-- will continue PO doxy for a total of 7days. (2) Sepsis: There was initial concern for sepsis due to AMS, increased RR, hypothermia. Normal lactic and an equivocal UA. AMS- resolved-- was likely due to hypoglycemia. Hypothermia - resolved- was likely due to hypoglycemia. Hypotension-- resolved-- ensued after rearming and may have been related to vasodilation rather than sepsis. (3) Diabetes type 2, uncontrolled: Hypoglycemia has resolved; pt education about DM medication and diet Subjective 68yo male with DMII, CKD III, CHF (EF 35-40%), and CAD admitted for AMS, concern for sepsis, and SOB. Pt states his breathing is better, but he is still gasping for air occasionally with exertion/activity. Pt says his b/l edema of LE has improved with the lasix (mentions increased urine output since yesterday. Pt denies F/C/N/V/D. Review of Systems Review of Systems GENERAL, CONSTITUTIONAL- Some weakness, fatigue. No Fever, Chills EYES, VISION- No Visual Changes EARS, NOSE, THROAT- No Hearing loss HEART, CARDIOVASCULAR- Shortness of breath with exertion, b/l LE edema. No Chest pain or pressure, Arrhythmia or palpitations, Blood clots, Varicose Veins, Cramping in thighs RESPIRATORY- Mild non-productive cough, Shortness of breath with exertion. No Wheezing. GASTROINTESTINAL- No Abdominal pain, Heartburn, Bloody stool GENITOURINARY- No Frequent urination, Urgency MUSCULOSKELETAL- No Joint pain or swelling, Restricted motion, Musculoskeletal pain SKIN & INTEGUMENTARY- Shallow left heel ulcer for past year. NEUROLOGICAL- Some Numbness in b/l feet. PSYCHIATRIC- No Nervousness, anxiety, Depression ENDOCRINE- No Heat or cold intolerance, Excessive thirst HEMATOLOGIC/LYMPHATIC- No Abnormal bleeding, Bleeding ALL/IMMUN- No Allergic reaction, Recurrent infections Physical Exam Vital Signs (Past 24 Hours): Last Vital Signs Temp 36.5 C 09/08/18 15:00 Pulse 85 09/08/18 15:00 Resp 18 09/08/18 15:00 BP 119/69 09/08/18 15:00 Pulse Ox 95 09/08/18 15:00 Physical Exam: GENERAL: WD/WN, alter, cooperative HEENT: Head: Atraumatic, normocephalic. Eyes: EOMI, PERRLA,. Nose: No nasal congestion. Throat: No tonsillar erythema, exudates, or enlargement. Mouth: Moist mucous membranes, no lesions. Neck: Supple, no JVD, normal thyroid, no cervical LAD. Nervous System: Mental status: Alert and oriented x 3, good concentration. Cranial nerves II�XII grossly intact. Motor: Strength 5/5 in upper extremities; 4/5 lower extremities Chest/Lung: some labored breathing, but no crackles No rhonchi, wheezing, or rubs. No tenderness to palpation. Heart: Normal S1, S2. No murmurs, rubs, or gallops. Abdomen: Soft, nontender, nondistended, BS present, no hepatosplenomegaly. Extremities: b/l 1/2+ pitting edema of LE. No clubbing, cyanosis.
[2018-09-08] MEDS: DOXYCYCLINE HYCLATE 100 MG CAP PO SCH (18:50)
[2018-09-08] MEDS: ATORVASTATIN 40 MG TAB PO SCH (21:24)
[2018-09-08] MEDS: TAMSULOSIN HCL 0.4 MG CAP PO SCH (21:25)
[2018-09-09] MEDS: INSULIN ASPART 100 UNITS/ML 3 ML PEN SC ONE (01:42)
[2018-09-09] MEDS: CARBOHYDRATES FOR HYPOGLYCEMIA PO PRN ×2 (02:00→02:20)
[2018-09-09] MEDS ORDERED: GLUCOSE 40% GEL 15 GM TUBE PO PRN (02:30)
[2018-09-09] MEDS ORDERED: GLUCOSE 10 TABS/TUBE PO PRN (02:30)
[2018-09-09] MEDS ORDERED: GLUCAGON FOR INJ 1 MG VIAL IM PRN (02:30)
[2018-09-09] MEDS: DEXTROSE 50% 50 ML SYRINGE IV PRN ×3 (03:09→08:47)
[2018-09-09 06:13] LABS: Hematocrit (blood only) 34.8 % (42-52); Hemoglobin 10.5 g/dL (14.0-18.0); Mean Corpuscular Hgb Conc 30.2 g/dL (32-36); Mean Corpuscular Volume 100.9 fL (80-100); Mean Platelet Volume 10.3 fL (7.4-10.4); Platelet Count 230 K/uL (130-400); RDW Coefficient of Variation 16.3 % (11.5-14.5); RDW Standard Deviation 59.5 fL (36.4-46.3); Red Blood Count 3.45 M/uL (4.7-6.1); White Blood Count 8.23 K/uL (4.8-10.8)
[2018-09-09] MEDS: HEPARIN SOD 5,000 UNIT/0.5 ML VIAL SQ SCH ×3 (06:24→22:57)
[2018-09-09] MEDS: DOXYCYCLINE HYCLATE 100 MG CAP PO SCH ×2 (06:26→18:29)
[2018-09-09 07:04] LABS: BUN Creatinine Ratio 29.4 (10-20); Calcium 7.8 mg/dl (8.5-10.1); Creatinine Clr Calc Pharmacy 36.3 ml/min; Est GFR (African American) 31.5; Est GFR (Non-African American) 27.2; Magnesium 2.6 mg/dl (1.8-2.4); Potassium 4.4 mmol/L (3.5-5.1)
[2018-09-09] MEDS ORDERED: INSULIN GLARGINE 100 UNIT/ML VIAL SC SCH ×2 (08:00→09:00)
[2018-09-09] MEDS ORDERED: INSULIN ASPART 100 UNITS/ML 3 ML PEN SC SCH (08:00)
--- NOTE | 2018-09-09 08:15 | Hospitalist Progress Note ---
Date of Service September 09, 2018 Assessment & Plan (1) Shortness of breath: (2) Sepsis: (3) Diabetes type 2, uncontrolled: 68 y/o M Hx combined CHF, CAD, DM II, CKD III, HTN, HLD, BPH with chronic retention, chronic dietary noncompliance admitted on September 05 2018- secondary to right lower lung pneumonia and sepsis Per report, admitted recent for a fungal UTI an being treated as outpt for a L heal ulcer. Presented in ED with AMS, hypothermia, hypoglycemia and became hypotensive while in the ER Possible metabolic encephalopathy with AMS related to hypoglycemia , Or sepsis resolved Possible sepsis ruled out as lactic acid was negative no consolidation or infiltration in the chest CT , and a CT has ruled out PE , comments of pulmonary edema doxycycline to p.o. to treat bronchitis, Continue nebulizer treatment,And supportive care Hx combined systolic anbd diastolic HF, CAD, has mild increased lung congestion, treated with Lasix , ASA, Plavix, Statin, worsening renal function has had lasix held. echo is possible only have mild diastolic CHF with normal LVEF, compared to his previous echo was only 30% EF BPH, using home medications Diabetes, complicated by frequent low blood glucosed, will stop long acting in sulin and remove carbohyrate coverage Possible acute kidney injury with worsening creatinine level today Left heel wound, Continue wound care Full code - Heparin prophylaxis Physical Exam Vital Signs (Past 24 Hours): Last Vital Signs Temp 36.3 C L 09/09/18 07:18 Pulse 73 09/09/18 07:18 Resp 16 09/09/18 07:18 BP 106/64 09/09/18 07:18 Pulse Ox 97 09/09/18 07:18
[2018-09-09] MEDS: MAGNESIUM OXIDE 400 MG TAB PO SCH (08:52)
[2018-09-09] MEDS: CLOPIDOGREL BISULFATE 75 MG TAB PO SCH (08:52)
[2018-09-09] MEDS: METOPROLOL SUCC 50MG EXT REL TAB PO SCH (08:52)
[2018-09-09] MEDS: ASPIRIN 81 MG ECTAB PO SCH (08:52)
[2018-09-09] MEDS: LISINOPRIL 2.5 MG TAB PO SCH (08:52)
[2018-09-09] MEDS: FOLIC ACID 1 MG TAB PO SCH (08:53)
[2018-09-09] MEDS: D5W NORMOSOL-R 1,000 ML IV SCH (13:16)
--- NOTE | 2018-09-09 13:44 | Pharmacy Report ---
Pharmacy Glycemic Short Note 2 - Date of Service September 09, 2018 - Glycemic Short BSG Results (Last 24 hours): 09/08/18 09/08/18 09/09/18 16:44 20:29 01:41 Glucose POC Glucose 150 H 127 H 66 L* 09/09/18 09/09/18 09/09/18 02:08 02:23 03:01 Glucose POC Glucose 65 L* 63 L* 66 L* 09/09/18 09/09/18 09/09/18 03:29 05:47 07:10 Glucose 50 L* POC Glucose 110 H 50 L* 09/09/18 09/09/18 09/09/18 07:11 07:42 08:36 Glucose POC Glucose 54 L* 74 62 L* 09/09/18 09/09/18 09/09/18 09:06 10:07 11:11 Glucose POC Glucose 107 H 106 H 116 H 09/09/18 12:12 Glucose POC Glucose 114 H OUTPATIENT ANTIDIABETIC REGIMEN: * Per [employer] * Lantus 35 units daily * Novolog 5 units w/ meals * Glimepiride 2mg PO Q AM * was stopped ASSESSMENT: * Mr. Patel had some lows overnight and this AM. I spoke with his nurse and asked to maintain q1h checks until BSGs became euglycemic X2. Lows were appropriately treated per [facility] hypoglycemic protocol. BSGs likely attributable to yesterdays HS lantus dose, please see MAR for further details. * I did discuss this with the hospitalist, dextrose containing IVFs were ordered. PLAN FOR INPATIENT GLYCEMIC CONTROL: * Hold outpatient oral diabetes medications (glimepiride) * Basal insulin * will hold all metabolic insulin until there are *two consecutive BSGs* >140mg/dL while off of the dextrose containing IVFs * Bolus insulin * NovoLog per scale ACHS and at 0000 + 0400 * Goal Range: Low 140 mg/dL - High 180 mg/dL * Correction Factor: 30 mg/dL/unit * There will be no carb ratio ordered for now
--- NOTE | 2018-09-09 14:49 | Medical Student Progress Note ---
Date of Service September 09, 2018 Assessment & Plan (1) Shortness of breath: 68yo male with DMII, CKD III, Hx of combined CHF- EF 35-40% (but current echo normal), and CAD (recently admitted for a fungal UTI an being treated as outpt for a L heal ulcer) admitted for AMS, concern for sepsis, and worsening shortness of breath. AMS resolved with blood sugar correction. CXR suggested potential RLL PNM, but CTA revealed b/l plural effusions as well as volume overload and increased right heart pressure. Pt has been afebrile, WBC WNL-- likely not PNA. One contributing factor to pt's SOB was most likely has fluid overload due to worsening CHF. Low albumin/oncotic pressure leading to b/l pleu ral effusions. Pt has positive fluid balance of 3.3L during hospital stay-- he received 3L of fluids over a relatively short prior of time in the ED for hypotension. Clinically the pt has improved with decreased SOB (currently at 99% on RA), no crackles, and decreased LE edema. Cr on 09/06 was 1.2. Cr on 09/08 1.93. Cr on 09/09 2.34. BUN/Cr of 26 on 09/08 and 35 on 09/09 indicates diuresis was too aggressive with decreased renal perfusion. Recent echo did not indicate sys dysfxn, but pt may have diastolic dysfxn-- HF with preserved EF. One dose 20MG lasix 09/08 and held since then. Pulmonary congestion clinically improved as lung exam does not reveal b/l crackles, but b/l LE edema persists potentially due to low albumin/oncotic pressure, lack of compression socks due to left heel ulcer, and lack of activity/walking. Pt may have clinical PNA (although there is an absence of fever, cough, increased WBC) as well as CHF exacerbation from fluid overload. Clinical PNA may be contributing to SOB (CXR suggested a RLL PNA, )-- will continue PO doxy for a total of 7days as pt is already on Day 4. Another component of pt's SOB may be COPD (pt has 20pk-yr smoking hx)-- Duonebs qHR will be ordered to see if it improves pt's SOB. (2) Sepsis: There was initial concern for sepsis due to AMS, increased RR, hypothermia. Normal lactic and an equivocal UA. AMS- resolved-- was likely due to hypoglycemia. Hypothermia - resolved- was likely due to hypoglycemia. Hypotension-- resolved-- ensued after rearming and may have been related to vasodilation rather than sepsis. (3) Diabetes type 2, uncontrolled: Hypoglycemia has resolved; pt education about DM medication and diet Subjective 68yo male with DMII, CKD III, Hx of combined CHF- EF 35-40% (but current echo normal), and CAD admitted for AMS, concern for sepsis, and SOB. Pt states he is about the same as yesterday-- still gasping for air occasionally with exertion/activity. Pt says his b/l edema of LE is about the same as yesterday. Has noticed he is using the bathroom less frequently after lasix held since yesterday. Pt had low blood sugar overnight 50-60, BGS now within normal range. Pt denies F/C/N/V/D. Review of Systems Review of Systems GENERAL, CONSTITUTIONAL- Some weakness, fatigue. No Fever, Chills HEART, CARDIOVASCULAR- Shortness of breath with exertion, b/l LE edema. No Chest pain or pressure, Arrhythmia or palpitations RESPIRATORY- Mild non-productive cough, Shortness of breath with exertion. No Wheezing. GASTROINTESTINAL- No Abdominal pain, Bloody stool GENITOURINARY- No Frequent urination or Urgency SKIN & INTEGUMENTARY- Shallow left heel ulcer for past year. NEUROLOGICAL- Some Numbness in b/l feet. Physical Exam Vital Signs (Past 24 Hours): Last Vital Signs Temp 36.6 C 09/09/18 14:47 Pulse 76 09/09/18 14:47 Resp 22 09/09/18 14:47 BP 112/68 09/09/18 14:47 Pulse Ox 99 09/09/18 14:47 Physical Exam: GENERAL: WD/WN, tired appearing Nose: No nasal congestion, normal nares Throat: No tonsillar erythema, exudates, or enlargement. Mouth: Moist mucous membranes, no lesions. Chest/Lung: some labored breathing, mild end expiratory wheezing, very soft crackles right lung base Heart: Normal S1, S2. No murmurs, rubs, or gallops. Abdomen: Soft, nontender, nondistended, normoactive BS present Extremities: b/l 1/2+ pitting edema of LE. No clubbing, cyanosis.
[2018-09-09] MEDS: INSULIN ASPART 100 UNITS/ML 3 ML PEN SC SCH ×3 (15:33→20:31)
[2018-09-09] MEDS: ALBUT/IPRATROP 3MG/0.5MG NEB 3 ML VIAL NEB SCH (20:06)
[2018-09-09] MEDS: TAMSULOSIN HCL 0.4 MG CAP PO SCH (20:32)
[2018-09-09] MEDS: ATORVASTATIN 40 MG TAB PO SCH (20:32)
[2018-09-10] MEDS: D5W NORMOSOL-R 1,000 ML IV SCH (01:55)
[2018-09-10] MEDS ORDERED: INSULIN ASPART 100 UNITS/ML 3 ML PEN SC SCH ×2 (02:00)
[2018-09-10] MEDS: ALBUT/IPRATROP 3MG/0.5MG NEB 3 ML VIAL NEB PRN ×2 (03:01→22:40)
[2018-09-10] MEDS: HEPARIN SOD 5,000 UNIT/0.5 ML VIAL SQ SCH ×3 (05:36→22:15)
[2018-09-10] MEDS: ALBUT/IPRATROP 3MG/0.5MG NEB 3 ML VIAL NEB SCH ×2 (07:13→11:39)
[2018-09-10] MEDS: LISINOPRIL 2.5 MG TAB PO SCH (08:12)
[2018-09-10] MEDS: MAGNESIUM OXIDE 400 MG TAB PO SCH (08:12)
[2018-09-10] MEDS: METOPROLOL SUCC 50MG EXT REL TAB PO SCH (08:12)
[2018-09-10] MEDS: INSULIN ASPART 100 UNITS/ML 3 ML PEN SC SCH ×4 (08:12→22:14)
[2018-09-10] MEDS: DOXYCYCLINE HYCLATE 100 MG CAP PO SCH ×2 (08:12→22:12)
[2018-09-10] MEDS: FOLIC ACID 1 MG TAB PO SCH (08:12)
[2018-09-10] MEDS: CLOPIDOGREL BISULFATE 75 MG TAB PO SCH (08:12)
[2018-09-10] MEDS: ASPIRIN 81 MG ECTAB PO SCH (08:17)
[2018-09-10] MEDS ORDERED: INSULIN GLARGINE 100 UNIT/ML VIAL SC SCH (09:00)
--- NOTE | 2018-09-10 10:36 | Pharmacy Report ---
Pharmacy Glycemic Short Note 2 - Date of Service September 10, 2018 - Glycemic Short BSG Results (Last 24 hours): 09/09/18 09/09/18 09/09/18 07:42 08:36 09:06 POC Glucose 74 62 L* 107 H 09/09/18 09/09/18 09/09/18 10:07 11:11 12:12 POC Glucose 106 H 116 H 114 H 09/09/18 09/09/18 09/10/18 16:46 20:30 00:24 POC Glucose 78 155 H 207 H 09/10/18 09/10/18 09/10/18 01:49 04:09 07:41 POC Glucose 171 H 191 H 203 H OUTPATIENT ANTIDIABETIC REGIMEN: * Per [employer] * Lantus 35 units daily * Novolog 5 units w/ meals * Glimepiride 2mg PO Q AM * (Metformin 500mg BID was stopped) ASSESSMENT: 09/10 * Mr. Patel is finally recovering from the 100 units of Lantus given 3/6 PM. Dextrose IVFs were placed on hold at midnight and order was d/c'd this AM. He received only 1 unit of insulin yesterday. * BSGs have been > 140 mg/dL x 2 while off the dextrose IVFs; therefore, it would be appropriate to resume basal insulin. Will plan to do so at a conservative dose due to recent hypoglycemia. Will reintroduce a carb ratio as well but be conservative with this too. 09/09 * Mr. Patel had some lows overnight and this AM. I spoke with his nurse and asked to maintain q1h checks until BSGs became euglycemic X2. Lows were appropriately treated per [facility] hypoglycemic protocol. BSGs likely attributable to yesterdays HS lantus dose, please see MAR for further details. * I did discuss this with the hospitalist, dextrose containing IVFs were ordered. PLAN FOR INPATIENT GLYCEMIC CONTROL: * Hold outpatient oral diabetes medications (glimepiride) * Basal insulin - resume (at a conservative dose) now that BSGs > 140 mg/dL x 2 off the dextrose * Lantus BID per the following scale: * 8 units for BSG < 180 * 10 units for BSG 180 or above * Bolus insulin - resume conservative carb ratio * NovoLog per scale ACHS * Goal Range: Low 140 mg/dL - High 180 mg/dL * Correction Factor: 30 mg/dL/unit * Carb ratio: 1 unit per 10 gm CHO consumed
[2018-09-10 13:25] LABS: BUN Creatinine Ratio 38.8 (10-20); Calcium 8.1 mg/dl (8.5-10.1); Est GFR (African American) 40.8; Est GFR (Non-African American) 35.2; Magnesium 2.8 mg/dl (1.8-2.4); Potassium 5.1 mmol/L (3.5-5.1)
--- NOTE | 2018-09-10 14:23 | Medical Student Progress Note ---
Date of Service September 10, 2018 Assessment & Plan (1) Shortness of breath: 68yo male with DMII, CKD III, Hx of combined CHF- EF 35-40% (but current echo normal), and CAD (recently admitted for a fungal UTI an being treated as outpt for a L heal ulcer) admitted for AMS, concern for sepsis, and worsening shortness of breath. AMS resolved with blood sugar correction. CXR suggested potential RLL PNM, but CTA revealed b/l plural effusions as well as volume overload and increased right heart pressure. Pt has been afebrile, WBC WNL-- likely not PNA. One contributing factor to pt's SOB was most likely has fluid overload due to worsening CHF. Low albumin/oncotic pressure leading to b/l pleu ral effusions. Pt has positive fluid balance of 3.3L during hospital stay-- he received 3L of fluids over a relatively short prior of time in the ED for hypotension. Clinically the pt has improved only reporting occasional labored breathing, no crackles, and decreased LE edema. Cr on 09/06 was 1.2. Cr on 09/08 1.93. Cr on 09/09 2.34. BUN/Cr of 26 on 09/08 and 35 on 09/09 indicates diuresis was too aggressive with decreased renal perfusion. Recent echo did not indicate sys dysfxn, but pt may have diastolic dysfxn-- HF with preserved EF. One dose 20MG lasix 09/08 and held since then. Pulmonary congestion clinically improved as lung exam does not reveal b/l crackles, but b/l LE edema persists potentially due to low albumin/oncotic pressure, lack of compression socks due to left heel ulcer, and lack of activity/walking. Would like to transition pt off 2L O2 to room air over next 24hrs. Pt may have bronchitis (although there is an absence of fever, cough, increased WBC) as well as CHF exacerbation from fluid overload. Will continue PO doxy for a total of 7days as pt is already on Day 5. Another component of pt's SOB may be COPD (pt has 20pk-yr smoking hx)-- Duonebs improved breathing per pt report. Will empirically treat for COPD with Advair. Pt will be d/c to rehab on 09/11 (2) Sepsis: There was initial concern for sepsis due to AMS, increased RR, hypothermia. Normal lactic and an equivocal UA. AMS- resolved-- was likely due to hypoglycemia. Hypothermia - resolved- was likely due to hypoglycemia. Hypotension-- resolved-- ensued after rearming and may have been related to vasodilation rather than sepsis. (3) Diabetes type 2, uncontrolled: Hypoglycemia has resolved, but BG readings have been fluctuating-- pharmacy is working to tighten sugar control. pt education about DM medication and diet Metformin will be restarted-- held for 48hrs after IV contrast for CTA Subjective 68yo male with DMII, CKD III, Hx of combined CHF- EF 35-40% (but current echo shows no SYS dysfxn EF at 55%), and CAD admitted for AMS, concern for sepsis, and subsequently SOB. Transient improvement of breathing with duonebs treatment. Does not report gasping for air with activity. Pt says b/l LE edema about the same-- wearing TEDs b/l, but SCD only on rt due to left heel ulcer. Pt reports would like to get blood sugars under control-- causing him some distress. Pt denies F/C/N/V/D. Review of Systems GENERAL, CONSTITUTIONAL- Some weakness, fatigue. No Fever, Chills HEART, CARDIOVASCULAR- some SOB and b/l LE edema. No Chest pain or pressure, Arrhythmia or palpitations RESPIRATORY- Mild non-productive cough, no Shortness of breath, but occasional labored breathing. No Wheezing. GASTROINTESTINAL- No Abdominal pain or Bloody stool GENITOURINARY- No Frequent urination or Urgency SKIN & INTEGUMENTARY- Shallow left heel ulcer for past year. NEUROLOGICAL- Some Numbness in b/l feet Physical Exam Vital Signs (Past 24 Hours): Last Vital Signs Temp 36.6 C 09/10/18 11:36 Pulse 72 09/10/18 11:39 Resp 18 09/10/18 11:39 BP 148/76 H 09/10/18 11:36 Pulse Ox 94 09/10/18 11:39 Physical Exam: GENERAL: WD/WN, sleeping in bed Nose: No nasal congestion, normal nares Throat: No tonsillar erythema, exudates, or enlargement. Mouth: Moist mucous membranes, no lesions. Chest/Lung: LCTA b/l, no rales, ronchi, or wheezing Heart: Normal S1, S2. No murmurs, rubs, or gallops. Abdomen: Soft, nontender, nondistended, normoactive BS present Extremities: b/l 1+ pitting edema of LE-- edema displaced more proximally due to TEDs. No clubbing, cyanosis.
--- NOTE | 2018-09-10 16:47 | Hospitalist Progress Note ---
Date of Service September 10, 2018 Assessment & Plan (1) Shortness of breath: Patient is a distant smoking history and has hyperinflation on his some of his imaging studies there is concern for clinical COPD in this patient we will institute bronchodilators and he did feel somewhat better. We have transitioned him to Advair 250 twice daily and hopefully will he will have outpatient pulmonary function testing (2) Sepsis: Sepsis has been ruled out (3) Diabetes type 2, uncontrolled: 68 y/o M Hx combined CHF, CAD, DM II, CKD III, HTN, HLD, BPH with chronic retention, chronic dietary noncompliance admitted on September 05 2018- secondary to right lower lung pneumonia and sepsis Per report, admitted recent for a fungal UTI an being treated as outpt for a L heal ulcer. Presented in ED with AMS, hypothermia, hypoglycemia and became hypotensive while in the ER Possible metabolic encephalopathy with AMS related to hypoglycemia , Or sepsis resolved Possible sepsis ruled out as lactic acid was negative no consolidation or infiltration in the chest CT , and a CT has ruled out PE , comments of pulmonary edema doxycycline to p.o. to treat bronchitis, Continue nebulizer treatment,And supportive care Hx combined systolic anbd diastolic HF, CAD, has mild increased lung congestion, no heart failure present at this time treated with Lasix , ASA, Plavix, Statin, worsening renal function has had lasix held. echo has normal LVEF, compared to his previous echo was only 30% EF Positive shortness of breath and pulmonary symptoms are from COPD and his edema is likely from cor pulmonale and some right heart dysfunction patient will need formal outpatient pulmonary consultation with evaluation of pulmonary artery pressures BPH, asymptomatic using home medications Diabetes, complicated by frequent low blood glucose, will stop long acting insulin and remove carbohyrate coverage Possible acute kidney injury with worsening creatinine level today Left heel wound, Continue wound care Full code - Heparin prophylaxis Subjective Patient was dismissive during my visit today says he no complaints or problems that he was tired out from physical therapy. His blood glucose of is been stable and his dextrose infusion has stopped. He has no focal complaints or problems he feels his breathing is somewhat improved with institution of inhaled medications. He is looking forward to going to rehabilitation likely on 09/11 Review of Systems ROS: well nourished well developed. Patient says he is fatigued and tired No double vision blurry vision No problems with speech or swallowing No palpitations, chest pain or pressure No Wheezing objective dyspnea No abdominal pain nausea vomiting diarrhea changes in appetite or weight No burning urine urine frequency or changes in color No focal joint pain or muscle pain No skin rashes or oral lesions No unusual bruising or bleeding No focused back pain or numbness or loss of strength No changes in memory or confusion mental status is cleared Physical Exam Vital Signs (Past 24 Hours): Last Vital Signs Temp 36.6 C 09/10/18 15:23 Pulse 93 H 09/10/18 15:23 Resp 16 09/10/18 15:23 BP 132/74 09/10/18 15:23 Pulse Ox 98 09/10/18 15:23 The patient appeared well nourished and normally developed. Vital signs as documented. Head exam is unremarkable. normocephalic, atraumatic Neck is without jugular venous distension, thyromegaly, or lymphademopathy Lungs are clear to auscultation and percussion. Cardiac exam reveals Rhythm is regular. First and second heart sounds normal. Abdominal exam reveals normal bowel sounds, no masses, no organomegaly Extremities are nonedematous and both pedal pulses are present Neurologic exam is A&Ox3, no focal deficits, strength is equal bilateral Psychologically seems neither anxious or depressed Skin is warm Dry without bruises or lesions
[2018-09-10] MEDS ORDERED: FLUTICASONE/SALMETEROL 250/50 (ADVAIR) 14 PUFF/1 INHALER INH SCH (21:00)
[2018-09-10] MEDS: FLUTICASONE/SALMETEROL 250/50 (ADVAIR) 14 PUFF/1 INHALER INH SCH (22:11)
[2018-09-10] MEDS: ATORVASTATIN 40 MG TAB PO SCH (22:13)
[2018-09-10] MEDS: TAMSULOSIN HCL 0.4 MG CAP PO SCH (22:13)
[2018-09-10] MEDS: INSULIN GLARGINE 100 UNIT/ML VIAL SC SCH (22:16)
[2018-09-11] MEDS: HEPARIN SOD 5,000 UNIT/0.5 ML VIAL SQ SCH ×3 (05:46→20:26)
[2018-09-11] MEDS: DOXYCYCLINE HYCLATE 100 MG CAP PO SCH ×2 (05:49→18:28)
[2018-09-11] MEDS: ALBUT/IPRATROP 3MG/0.5MG NEB 3 ML VIAL NEB PRN ×4 (05:58→23:14)
[2018-09-11] MEDS: FLUTICASONE/SALMETEROL 250/50 (ADVAIR) 14 PUFF/1 INHALER INH SCH ×2 (08:41→20:27)
[2018-09-11] MEDS: METOPROLOL SUCC 50MG EXT REL TAB PO SCH (08:42)
[2018-09-11] MEDS: ASPIRIN 81 MG ECTAB PO SCH (08:42)
[2018-09-11] MEDS: LISINOPRIL 2.5 MG TAB PO SCH (08:42)
[2018-09-11] MEDS: FOLIC ACID 1 MG TAB PO SCH (08:42)
[2018-09-11] MEDS: CLOPIDOGREL BISULFATE 75 MG TAB PO SCH (08:43)
[2018-09-11] MEDS: INSULIN GLARGINE 100 UNIT/ML VIAL SC SCH ×2 (08:43→20:25)
[2018-09-11] MEDS: INSULIN ASPART 100 UNITS/ML 3 ML PEN SC SCH ×4 (08:46→20:26)
--- NOTE | 2018-09-11 09:31 | Pharmacy Report ---
Pharmacy Glycemic Short Note 2 - Date of Service September 11, 2018 - Glycemic Short BSG Results (Last 24 hours): 09/10/18 09/10/18 09/10/18 11:48 12:34 16:51 Glucose 281 H POC Glucose 244 H 181 H 09/10/18 09/11/18 21:12 07:41 Glucose POC Glucose 174 H 106 H OUTPATIENT ANTIDIABETIC REGIMEN: * Per Process Plant Operator * Lantus 35 units daily * Novolog 5 units w/ meals * Glimepiride 2mg PO Q AM * (Metformin 500mg BID was stopped) ASSESSMENT: 09/11 * Mr. Patel received 36 units of insulin yesterday (18 of this was basal) * He has not had any further hypoglycemia. * Fasting BSG = 106; will receive a lower dose of Lantus based on the scale * Postprandial BSGs slightly elevated yesterday but improved throughout the day 09/10 * Mr. Patel is finally recovering from the 100 units of Lantus given 3/ PM. Dextrose IVFs were placed on hold at midnight and order was d/c'd this AM. He received only 1 unit of insulin yesterday. * BSGs have been > 140 mg/dL x 2 while off the dextrose IVFs; therefore, it would be appropriate to resume basal insulin. Will plan to do so at a conservative dose due to recent hypoglycemia. Will reintroduce a carb ratio as well but be conservative with this too. 09/09 * Mr. Patel had some lows overnight and this AM. I spoke with his nurse and asked to maintain q1h checks until BSGs became euglycemic X2. Lows were appropriately treated per [facility] hypoglycemic protocol. BSGs likely attributable to yesterdays HS lantus dose, please see MAR for further details. * I did discuss this with the hospitalist, dextrose containing IVFs were ordered. PLAN FOR INPATIENT GLYCEMIC CONTROL: * Continue to hold outpatient oral diabetes medications (glimepiride) * Basal insulin - no change * Lantus BID per the following scale: * 5 units for BSG < 110 * 8 units for BSG 110-180 * 10 units for BSG above 180 * Bolus insulin - no change * NovoLog per scale ACHS * Goal Range: Low 140 mg/dL - High 180 mg/dL * Correction Factor: 30 mg/dL/unit * Carb ratio: 1 unit per 10 gm CHO consumed Discharge Recommendations: * A1c = 12.4%; this is more related to noncompliance with diet and medications * Recommend to continue outpatient medications on discharge w/ close outpatient f/u to stress compliance * CDE also educated patient on holding his Novolog dose if he skips a meal
--- NOTE | 2018-09-11 14:21 | Hospitalist Progress Note ---
Date of Service September 11, 2018 Assessment & Plan (1) Shortness of breath: Patient is a distant smoking history and has hyperinflation on his some of his imaging studies there is concern for clinical COPD in this patient we will institute bronchodilators and he did feel somewhat better. We have transitioned him to Advair 250 twice daily and hopefully will he will have outpatient pulmonary function testing (2) Sepsis: Sepsis has been ruled out (3) Diabetes type 2, uncontrolled: 68 y/o M Hx combined CHF, CAD, DM II, CKD III, HTN, HLD, BPH with chronic retention, chronic dietary noncompliance admitted on September 05 2018- secondary to right lower lung pneumonia and sepsis Per report, admitted recent for a fungal UTI an being treated as outpt for a L heal ulcer. Presented in ED with AMS, hypothermia, hypoglycemia and became hypotensive while in the ER Possible metabolic encephalopathy with AMS related to hypoglycemia , or hyothermia resolved Possible sepsis ruled out as lactic acid was negative no consolidation or infiltration in the chest CT , and a CT has ruled out PE , comments of pulmonary edema doxycycline to p.o. to treat bronchitis, Continue nebulizer treatment,And supportive care Hx combined systolic anbd diastolic HF, CAD, has mild increased lung congestion, no heart failure present at this time treated with Lasix , ASA, Plavix, Statin, worsening renal function has had lasix held. echo has normal LVEF, compared to his previous echo was only 30% EF Positive shortness of breath and pulmonary symptoms are from COPD and his edema is likely from cor pulmonale and some right heart dysfunction patient will need formal outpatient pulmonary consultation with evaluation of pulmonary artery pressures, will need to follow up cataracts and visual imparement, will need to be eval by optho and consider if qualifies for assistance from [employer] of the [employer] BPH, asymptomatic using home medications Diabetes, complicated by frequent low blood glucose, will stop long acting insulin and remove carbohyrate coverage Possible acute kidney injury with worsening creatinine level today Left heel wound, Continue wound care Full code - Heparin prophylaxis Subjective Patient has no new complaints or problems he does limit this morning about his visual impairment from cataracts. He is not involved with any agencies to help him and he is still trying to drive which I discouraged him against. The patient will be eventually placed in [facility] for acute rehabilitation however there is no bed available at this time Review of Systems ROS: well nourished well developed. Patient now alert with complaints of blurry vision is unclear whether this is truly new or the patient trying to have situations to create longer stay in the hospital No problems with speech or swallowing No palpitations, chest pain or pressure No Wheezing or breathing issues No abdominal pain nausea vomiting diarrhea changes in appetite or weight No burning urine urine frequency or changes in color No focal joint pain or muscle pain No skin rashes or oral lesions No unusual bruising or bleeding No focused back pain or numbness or loss of strength No changes in memory or confusion Physical Exam Vital Signs (Past 24 Hours): Last Vital Signs Temp 36.7 C 09/11/18 11:39 Pulse 98 H 09/11/18 11:39 Resp 20 09/11/18 11:39 BP 142/72 H 09/11/18 11:39 Pulse Ox 92 09/11/18 11:49
[2018-09-11] MEDS: ATORVASTATIN 40 MG TAB PO SCH (20:28)
[2018-09-11] MEDS: TAMSULOSIN HCL 0.4 MG CAP PO SCH (20:28)
[2018-09-12] MEDS: ALBUT/IPRATROP 3MG/0.5MG NEB 3 ML VIAL NEB PRN ×2 (03:55→09:36)
[2018-09-12] MEDS: HEPARIN SOD 5,000 UNIT/0.5 ML VIAL SQ SCH ×3 (05:39→13:48)
[2018-09-12] MEDS: DOXYCYCLINE HYCLATE 100 MG CAP PO SCH (05:43)
[2018-09-12 06:51] LABS: Hematocrit (blood only) 33.1 % (42-52); Hemoglobin 10.2 g/dL (14.0-18.0); Mean Corpuscular Hgb Conc 30.8 g/dL (32-36); Mean Platelet Volume 10.3 fL (7.4-10.4); Platelet Count 226 K/uL (130-400); RDW Coefficient of Variation 16.1 % (11.5-14.5); RDW Standard Deviation 58.4 fL (36.4-46.3); Red Blood Count 3.31 M/uL (4.7-6.1); White Blood Count 6.31 K/uL (4.8-10.8)
[2018-09-12 07:19] LABS: BUN Creatinine Ratio 38.9 (10-20); Calcium 8.3 mg/dl (8.5-10.1); Creatinine Clr Calc Pharmacy 54.2 ml/min; Potassium 5.2 mmol/L (3.5-5.1)
[2018-09-12] MEDS: FLUTICASONE/SALMETEROL 250/50 (ADVAIR) 14 PUFF/1 INHALER INH SCH (07:57)
[2018-09-12] MEDS: FOLIC ACID 1 MG TAB PO SCH (07:58)
[2018-09-12] MEDS: ASPIRIN 81 MG ECTAB PO SCH (07:58)
[2018-09-12] MEDS: CLOPIDOGREL BISULFATE 75 MG TAB PO SCH (07:59)
[2018-09-12] MEDS: INSULIN GLARGINE 100 UNIT/ML VIAL SC SCH (07:59)
[2018-09-12] MEDS: METOPROLOL SUCC 50MG EXT REL TAB PO SCH (07:59)
[2018-09-12] MEDS: INSULIN ASPART 100 UNITS/ML 3 ML PEN SC SCH ×2 (08:05→12:16)
--- NOTE | 2018-09-12 08:52 | Pharmacy Report ---
Pharmacy Glycemic Short Note 2 - Date of Service September 12, 2018 - Glycemic Short BSG Results (Last 24 hours): 09/11/18 09/11/18 09/11/18 07:41 11:32 16:39 Glucose POC Glucose 106 H 220 H 188 H 09/11/18 09/12/18 09/12/18 20:16 06:38 07:38 Glucose 145 H POC Glucose 210 H 142 H OUTPATIENT ANTIDIABETIC REGIMEN: * Per Mortgage Originator * Lantus 35 units daily * Novolog 5 units w/ meals * Glimepiride 2mg PO Q AM * (Metformin 500mg BID was stopped) ASSESSMENT: 09/12 * Total daily insulin yesterday was 39 units (15 of this was basal) * BSGs increased throughout yesterday but I believe this was related to the lower dose of basal in the morning. Will wait to see what lunch BSG looks like prior to adjusting Novolog parameters. * Fasting = 142 mg/dL; he will receive more Lantus today so will not make changes at this time. Based on previous admissions, 16-18 units/day seems appropriate. 09/11 * Mr. Patel received 36 units of insulin yesterday (18 of this was basal) * He has not had any further hypoglycemia. * Fasting BSG = 106; will receive a lower dose of Lantus based on the scale * Postprandial BSGs slightly elevated yesterday but improved throughout the day 09/10 * Mr. Patel is finally recovering from the 100 units of Lantus given 3/6 PM. Dextrose IVFs were placed on hold at midnight and order was d/c'd this AM. He received only 1 unit of insulin yesterday. * BSGs have been > 140 mg/dL x 2 while off the dextrose IVFs; therefore, it would be appropriate to resume basal insulin. Will plan to do so at a conservative dose due to recent hypoglycemia. Will reintroduce a carb ratio as well but be conservative with this too. 09/09 * Mr. Patel had some lows overnight and this AM. I spoke with his nurse and asked to maintain q1h checks until BSGs became euglycemic X2. Lows were appropriately treated per [facility] hypoglycemic protocol. BSGs likely attributable to yesterdays HS lantus dose, please see MAR for further details. * I did discuss this with the hospitalist, dextrose containing IVFs were ordered. PLAN FOR INPATIENT GLYCEMIC CONTROL: * Continue to hold outpatient oral diabetes medications (glimepiride) * Basal insulin - adjust scale so lowest daily dose would be 16 units * Lantus BID per the following scale: * 8 units for 180 or below * 10 units for BSG above 180 * Bolus insulin - no change; will tighten CR to 8 if "postprandial" BSGs are > 200 mg/dL * NovoLog per scale ACHS * Goal Range: Low 110 mg/dL - High 150 mg/dL * Correction Factor: 30 mg/dL/unit * Carb ratio: 1 unit per 10 gm CHO consumed Discharge Recommendations: * A1c = 12.4%; this is more related to noncompliance with diet and medications * Recommend to continue outpatient medications on discharge w/ close outpatient f/u to stress compliance * CDE also educated patient on holding his Novolog dose if he skips a meal
--- NOTE | 2018-09-12 11:53 | Discharge Summary ---
Date of Service September 12, 2018 Principal Diagnosis possible toxic encephalopathy from hypoglycemia bronchitis acute kidney injury from diuresis Discharge Exam Constitutional well developed and average body habitus Eyes no conjunctival abnormality and no scleral abnormality Neck normal visual inspection and trachea midline Respiratory normal respiratory effort; no respiratory distress Auscultation: lungs clear to auscultation bilaterally pt has decreased air movement perhaps consistent with copd Cardiovascular RRR, no murmur, no edema Gastrointestinal (Abdomen) normal bowel sounds, soft, nontender, no hepatosplenomegaly Musculoskeletal no cyanosis or clubbing, extremities motor strength 11/07 Discharge Data Allergies Allergy/AdvReac Type Severity Reaction Status Date / Time poliomyelitis vaccine, live Allergy Unknown Unknown Verified 09/03/18 08:07 oral Consultations 09/06/18 00:41 ED Decision to Admit Stat 09/06/18 03:15 Consult Case Management - Discharge Planning Routine 09/06/18 03:17 Consult Loan Underwriter Routine 09/06/18 04:38 Consult Case Management - Discharge Planning Routine Ordered Studies 09/05/18 23:40 CT head/brain wo con Urgent 09/06/18 19:23 CT angio chest PE protocol Stat Hospital Course (1) Shortness of breath: Patient is a distant smoking history and has hyperinflation on his some of his imaging studies there is concern for clinical COPD in this patient we will institute bronchodilators and he did feel somewhat better. We have transitioned him to Advair 250 twice daily and hopefully will he will have outpatient pulmonary function testing LE edema maybe cor pulmonale or even pulm htn, employ low salt diet and teds (2) Sepsis: Sepsis has been ruled out, pt has bronchitis (3) Diabetes type 2, uncontrolled: 68 y/o M Hx combined CHF, CAD, DM II, CKD III, HTN, HLD, BPH with chronic retention, chronic dietary noncompliance admitted on September 05 2018- secondary to right lower lung pneumonia and sepsis Per report, admitted recent for a fungal UTI an being treated as outpt for a L heal ulcer. Presented in ED with AMS, hypothermia, hypoglycemia and became hypotensive while in the ER Possible metabolic encephalopathy with AMS related to hypoglycemia , or hyothermia resolved Possible sepsis ruled out as lactic acid was negative no consolidation or infiltration in the chest CT , and a CT has ruled out PE , comments of pulmonary edema doxycycline to p.o. to treat bronchitis completed course in hospital, Continue advair Hx combined systolic and diastolic HF, CAD, has mild increased lung congestion, no heart failure present treated with Lasix , ASA, Plavix, Statin, worsening renal function has had lasix held. echo has normal LVEF, compared to his previous echo was only 30% EF Positive shortness of breath and pulmonary symptoms are from COPD and his edema is likely from cor pulmonale and some right heart dysfunction patient will need formal outpatient pulmonary consultation with evaluation of pulmonary artery pressures, will need to follow up cataracts and visual impairment, will need to be eval by optho and consider if qualifies for assistance from [employer] BPH, asymptomatic using home medications Diabetes, complicated by frequent low blood glucose, will stop long acting insulin and remove carbohyrate coverage Possible acute kidney injury with worsening creatinine level today Left heel wound, Continue wound care Full code - Heparin prophylaxis Total Time Total Time Spent Total Time Spent (In Minutes): greater than 30 minutes were required to prepare discharge Discharge Plan Discharge Items Patient Disposition: Transfer Inpatient Rehab Fac Reason For Visit: AMS, HYPOGLYCEMIA HYPOTENSION, HYPOTHERMIA, PNM, Discharge Diagnosis: encephalopathy, poorly controlled diabetes, generalized weakness Discharge Goals: Decrease discomfort, Diagnostic testing and Improve disease control Activity: Resume your previous activity Non-emergency contact: Primary Care Provider Call non-emergency contact if: you have any medication questions Follow-up/Referrals: Hayley Watson MD [Primary Care Provider] - Diet: Carb Consistent or DM2 Addtl Provider Instructions: please watch his glucose levels closely, this is variable with his diet. pt had been on a variable amount of glucose controlling medication but hospital admission was likely associated with significant hypoglycemia and hypothermia from exposure, it may be time to change to just insulin therapy Although not formally diagnosed with COPD, pt has a tobacco exposure history, hyperinflation of lungs on imaging and subjective dyspnea, he was treated for bronchitis, and started on advair after duonebs improved his dyspnea, he may have clinical findings of pulmonary htn or cor pulmonale with peripheral edema. Prescriptions: New fluticasone-salmeterol [Advair Diskus] 250-50 mcg/dose Blister With Device 1 inha Inhalation BID Qty: 60 RF: 0 doxycycline hyclate 100 mg Capsule 100 mg PO Q12H Qty: 3 RF: 0 Lantus U-100 Insulin 100 unit/mL Solution 10 units SC BID Qty: 10 RF: 0 Novolog Flexpen U-100 Insulin 100 unit/mL Insulin Pen 1 units SC ACHS Qty: 15 RF: 0 Continued aspirin [Adult Aspirin Regimen] 81 mg tablet,delayed release (DR/EC) 81 mg PO DAILY RF: 0 atorvastatin [Lipitor] 40 mg tablet 40 mg PO HS RF: 0 clopidogrel [Plavix] 75 mg tablet 75 mg PO DAILY RF: 0 folic acid 1 mg tablet 1 mg PO DAILY RF: 0 lisinopril [Zestril] 2.5 mg tablet 2.5 mg PO DAILY RF: 0 cyanocobalamin (vitamin B-12) [Vitamin B-12] 1,000 mcg tablet 1,000 mcg PO DAILY RF: 0 magnesium oxide 400 mg capsule 400 mg PO DAILY RF: 0 metoprolol succinate 50 mg capsule,sprinkle,ER 24hr 50 mg PO DAILY RF: 0 tamsulosin [Flomax] 0.4 mg capsule 0.4 mg PO HS RF: 0 multivitamin Tablet 1 tab PO DAILY RF: 0 acetaminophen [Tylenol Extra Strength] 500 mg Tablet 500 mg PO Q12 PRN (Reason: Pain) RF: 0 cholecalciferol (vitamin D3) [Vitamin D3] 5,000 unit Tablet 5,000 unit PO DAILY RF: 0 Spectravite Advanced Formula 18-400 mg-mcg Tablet 1 tab PO DAILY RF: 0 Discontinued glimepiride 2 mg tablet 2 mg PO QAM RF: 0 insulin glargine [Lantus U-100 Insulin] 100 unit/mL solution 35 units SQ DAILY RF: 0 insulin aspart U-100 [Novolog Flexpen U-100 Insulin] 100 unit/mL insulin pen 5 units SQ TIDM RF: 0 metformin 500 mg tablet 500 mg PO BID RF: 0 Stand-Alone Forms: [facility] Discharge Orders: Discharge Order (Routine); Ordered 09/12/18 Ordered By: Cain Patel Skilled Items Patient informed of condition?: Yes DNR: No Discharge Level of Care: Acute rehab Communicable Disease: Yes Discharge Prognosis: Stable Admission Data Admit Date/Time: 09/06/18 03:15 Attending Provider: Cain Patel Admit Provider: Douglas Jerry Primary Care Provider: Hayley Watson V. Other Providers: Douglas Jerry ; Sin Hopson ; Vinicius Valdez Service: Telemetry
--- NOTE | 2018-09-12 12:31 | Communication Note ---
Date of Service: September 12, 2018 I was called by case management is a patient was refusing to be transferred to [facility] or the [facility]. The patient and I had conv ersations prior to today informing him that he was no longer receiving acute hospitalization treatment as he was on inhaled medication oral antibiotics which have now completed her course and basal bolus insulin. The patient still was refusing to go. I came to the patient's room in the company of the pillowcase cutter, Margarita, informed the patient that he needed to be discharged to [facility] today. Patient says he did not want to go and that he threatened to throw himself on the floor to cause injury to prolong his hospital stay. When asked why the patient did not want to go to [facility] he said he did not like the food there especially the breakfast meals and would not go to [facility]. I informed the patient that because he threatened to throw himself on the floor will have a person sit in his room with him restricted to bedrest and have his door open at all times. Informed of my intention to discharge him to [facility] is a bed available today. Case management was left in the room to determine the patient's willingness to go and also if he has any alternatives to this disposition plan
== END 2018-09-12 15:50 ==
LOC: ED 23:27 → SUATTDRO 09-06 03:15 → 1E 09-06 03:15 → 2N 09-08 09:55

== ENCOUNTER 2018-09-17 15:26 | Inpatient (IN) ==
[2018-09-17 16:18] LABS: Basophils # (auto) 0.02 K/uL (0-0.2); Basophils % (auto) 0.2 %; Eosinophils # (auto) 0.25 K/uL (0-0.5); Eosinophils % (auto) 2.8 %; Hematocrit (blood only) 33.8 % (42-52); Hemoglobin 10.6 g/dL (14.0-18.0); Immature Granulocytes # (auto) 0.03 K/uL (0.00-0.02); Immature Granulocytes % (auto) 0.3 %; Lymphocytes # (auto) 0.91 K/uL (1.2-3.4); Lymphocytes % (auto) 10.2 %; Mean Corpuscular Hgb Conc 31.4 g/dL (32-36); Mean Corpuscular Volume 98.8 fL (80-100); Mean Platelet Volume 10.6 fL (7.4-10.4); Monocytes # (auto) 0.77 K/uL (0.11-0.59); Monocytes % (auto) 8.6 %; Neutrophils # (auto) 6.98 K/uL (1.4-6.5); Neutrophils % (auto) 77.9 %; Platelet Count 259 K/uL (130-400); RDW Coefficient of Variation 15.4 % (11.5-14.5); RDW Standard Deviation 55.2 fL (36.4-46.3); Red Blood Count 3.42 M/uL (4.7-6.1); White Blood Count 8.96 K/uL (4.8-10.8)
--- NOTE | 2018-09-17 16:19 | XRay Report ---
XR chest 1V portable CLINICAL HISTORY: weakness COMPARISON STUDY: 09/06/2018 FINDINGS: The cardiac images so contours remain stable. There are increasing bilateral pleural effusi ons. There are associated basilar airspace opacities, likely representing compressive atelectasis [place] superimposed pneumonia could appear similar. There is mild pulmonary vascular congestion.[ IMPRESSION: 1. Radiographic evidence of mild congestive failure/fluid overload 2. Increasing bilateral pleural effusions 3. Basilar airspace opacities, likely representing compressive atelectasis although a superimposed pn [place] could appear similar Electronically signed by: Houston Marques M.D. 09/17/2018 4:17 PM
--- NOTE | 2018-09-17 16:29 | Emergency Department Note ---
Entered by Ector Murillo acting as a scribe for History of Present Illness General Chief complaint: Shortness of Breath/Dyspnea Stated complaint: SOB Time Seen by Provider: 09/17/18 15:34 Source: patient Limitations: no limitations History of Present Illness Provider complaint: SOB Onset (ago): week(s) Location: chest (SOB) Pain Consistency: + other (worsening) Quality: + other (SOB) Exacerbated By: + other (Laying flat) Treatments prior to arrival: other (7 day inpatient stay, 5 days in [facility]) The patient is a 68 year old male who presents to the Emergency Room with complaints of worsening shortness of breath for the past week. The patient was seen here in the ED on 09/06, 11 days ago and was admitted for sepsis, pneumonia, and CHF. He was on the inpatient floor from 09/06 to 09/12 and was then discharged to [facility]. The patient reports to the ED from [facility] today for worsening shortness of breath. He notes that the shortness of breath seems to be significantly worsened with laying flat. In his time at [facility] he did not have any worsening of his shortness of breath with exertion. The patient also complains of worsening swelling to his lower extremities, and is unsure if he takes Lasix or not. He has been receiving Heparin injections since his inpatient stay. Home Medications Home Medications Medication Instructions Recorded Confirmed Type aspirin 81 mg tablet,delayed 81 mg PO DAILY 03/02/18 09/17/18 History release atorvastatin 40 mg tablet 40 mg PO HS tab 03/02/18 09/17/18 History clopidogrel 75 mg tablet 75 mg PO DAILY 03/02/18 09/17/18 History cyanocobalamin (vit B-12) 1,000 1,000 mcg PO DAILY 03/02/18 09/17/18 History mcg tablet folic acid 1 mg tablet 1 mg PO DAILY 03/02/18 09/17/18 History magnesium oxide 400 mg capsule 400 mg PO DAILY cap 03/02/18 09/17/18 History metoprolol succinate ER 50 mg 50 mg PO DAILY ea 03/02/18 09/17/18 History capsule sprinkle, ext. release 24 hr tamsulosin 0.4 mg capsule 0.4 mg PO HS cap 03/02/18 09/17/18 History acetaminophen [Tylenol Extra 500 mg PO Q12H PRN 07/01/18 09/17/18 History Strength] cholecalciferol (vitamin D3) 5,000 units PO DAILY 07/01/18 09/17/18 History [Vitamin D3] bisacodyl 10 mg ND DAILY PRN 09/17/18 09/17/18 History docusate sodium 100 mg PO BID 09/17/18 09/17/18 History doxycycline hyclate 100 mg PO Q12H 09/17/18 09/17/18 History fluticasone-vilanterol 1 inh INHALATION DAILY 09/17/18 09/17/18 History heparin (porcine) 5,000 units SUBCUT Q8H 09/17/18 09/17/18 History insulin aspart U-100 [Novolog 1 sliding scale dose SC ACHS 09/17/18 09/17/18 History Flexpen U-100 Insulin] insulin glargine [Lantus U-100 12 units SC Q12H 09/17/18 09/17/18 History Insulin] ipratropium-albuterol 3 ml INHALATION Q4H PRN 09/17/18 09/17/18 History lisinopril 2.5 mg PO DAILY 09/17/18 09/17/18 History magnesium hydroxide 30 ml PO DAILY PRN 09/17/18 09/17/18 History multivitamin with minerals 1 tab PO DAILY 09/17/18 09/17/18 History sennosides [senna] 8.6 mg PO QAM PRN 09/17/18 09/17/18 History sodium phosphates [Fleet Enema] 118 ml ND DAILY PRN 09/17/18 09/17/18 History Allergies Allergy/AdvReac Type Severity Reaction Status Date / Time poliomyelitis vaccine, live Allergy Unknown Unknown Verified 09/17/18 16:26 oral Past Med/Surg History Medical History Acute blood loss anemia (Acute) Acute renal insufficiency (Acute) Hematuria (Acute) ATN (acute tubular necrosis) (Chronic) Abscess (Chronic) DM II (diabetes mellitus, type II), controlled (Chronic) HTN (hypertension) (Chronic) Hydronephrosis (Chronic) MSSA (methicillin susceptible Staphylococcus aureus) (Chronic) Osteomyelitis (Chronic) Peripherally inserted central catheter in place (Chronic) Recurrent UTI (Chronic) Sepsis (Chronic) Yeast dermatitis (Chronic) Surgical History History of tonsillectomy Social History Preferred Language: Venezuelan Communication Ability: Effective Histology Supervisor Required: No Beliefs That Will Affect Care: None marital status: Single Current Living Situation: Alone Current Living Situation Comment: lives alone in condo current occupational status: retired Feels Safe at Home: Yes Safety Concerns: Feels Safe At This Time Smoking Status: Never smoker Hx Alcohol Use: No Hx Substance Use: No Review of Systems See HPI for pertinent positives & negatives. and A total of 10 systems reviewed and were otherwise negative Physical Exam Vital Signs Vital Signs - 24 hr 09/17/18 15:30 09/17/18 15:33 09/17/18 15:37 Temperature 37.1 C Temperature Source Oral Sepsis Recent Fever Within 48 Hours No Sepsis Action Taken by Nursing No Action Required Pulse Rate 91 H 88 98 H Pulse Rate [Exercises] Pulse Rate [Right Finger] Pulse Rate from SpO2 Sensor 88 88 Respiratory Rate 22 37 H 30 H Respiratory Rate [Exercises] Respiratory Effort / Characteristics Respiratory Depth Shallow Respiratory Pattern Tachypnea Blood Pressure 157/81 H 157/81 H Blood Pressure [Left Arm] Blood Pressure Mean 106 106 Blood Pressure Mean [Left Arm] Blood Pressure Position [Left Arm] Pulse Oximetry 91 91 93 Pulse Oximetry [Exercises] Oxygen Delivery Method Room Air 09/17/18 15:40 09/17/18 15:50 09/17/18 15:52 Temperature Temperature Source Sepsis Recent Fever Within 48 Hours Sepsis Action Taken by Nursing Pulse Rate 91 H 90 Pulse Rate [Exercises] Pulse Rate [Right Finger] Pulse Rate from SpO2 Sensor 91 H 90 Respiratory Rate 24 29 H Respiratory Rate [Exercises] Respiratory Effort / Characteristics Respiratory Depth Respiratory Pattern Blood Pressure Blood Pressure [Left Arm] Blood Pressure Mean Blood Pressure Mean [Left Arm] Blood Pressure Position [Left Arm] Pulse Oximetry 92 90 93 Pulse Oximetry [Exercises] Oxygen Delivery Method Room Air 09/17/18 16:00 09/17/18 16:01 09/17/18 16:10 Temperature Temperature Source Sepsis Recent Fever Within 48 Hours Sepsis Action Taken by Nursing Pulse Rate 88 88 87 Pulse Rate [Exercises] Pulse Rate [Right Finger] Pulse Rate from SpO2 Sensor 88 87 Respiratory Rate 21 23 34 H Respiratory Rate [Exercises] Respiratory Effort / Characteristics Respiratory Depth Respiratory Pattern Blood Pressure 154/86 H Blood Pressure [Left Arm] Blood Pressure Mean 108 Blood Pressure Mean [Left Arm] Blood Pressure Position [Left Arm] Pulse Oximetry 90 91 Pulse Oximetry [Exercises] Oxygen Delivery Method 09/17/18 16:58 09/17/18 16:59 09/17/18 17:00 Temperature Temperature Source Sepsis Recent Fever Within 48 Hours Sepsis Action Taken by Nursing Pulse Rate 90 90 Pulse Rate [Exercises] Pulse Rate [Right Finger] Pulse Rate from SpO2 Sensor 89 90 91 H Respiratory Rate 19 20 Respiratory Rate [Exercises] Respiratory Effort / Characteristics Respiratory Depth Respiratory Pattern Blood Pressure 175/96 H Blood Pressure [Left Arm] Blood Pressure Mean 122 Blood Pressure Mean [Left Arm] Blood Pressure Position [Left Arm] Pulse Oximetry 90 89 L 89 L Pulse Oximetry [Exercises] Oxygen Delivery Method 09/17/18 17:10 09/17/18 17:52 09/17/18 18:10 Temperature Temperature Source Sepsis Recent Fever Within 48 Hours Sepsis Action Taken by Nursing Pulse Rate 88 102 H Pulse Rate [Exercises] Pulse Rate [Right Finger] Pulse Rate from SpO2 Sensor 88 91 H 101 H Respiratory Rate 19 14 Respiratory Rate [Exercises] Respiratory Effort / Characteristics Respiratory Depth Respiratory Pattern Blood Pressure Blood Pressure [Left Arm] Blood Pressure Mean Blood Pressure Mean [Left Arm] Blood Pressure Position [Left Arm] Pulse Oximetry 91 92 91 Pulse Oximetry [Exercises] Oxygen Delivery Method Room Air 09/17/18 18:11 09/17/18 18:14 09/17/18 18:20 Temperature Temperature Source Sepsis Recent Fever Within 48 Hours Sepsis Action Taken by Nursing Pulse Rate 99 H 90 Pulse Rate [Exercises] 107 H Pulse Rate [Right Finger] Pulse Rate from SpO2 Sensor 98 H 90 Respiratory Rate 21 18 Respiratory Rate [Exercises] 34 H Respiratory Effort / Characteristics Respiratory Depth Respiratory Pattern Blood Pressure 159/94 H Blood Pressure [Left Arm] Blood Pressure Mean 115 Blood Pressure Mean [Left Arm] Blood Pressure Position [Left Arm] Pulse Oximetry 88 L 91 Pulse Oximetry [Exercises] 87 L Oxygen Delivery Method Room Air 09/17/18 18:30 09/17/18 18:31 09/17/18 19:30 Temperature Temperature Source Sepsis Recent Fever Within 48 Hours Sepsis Action Taken by Nursing Pulse Rate 88 87 Pulse Rate [Exercises] Pulse Rate [Right Finger] 92 H Pulse Rate from SpO2 Sensor 87 88 Respiratory Rate 13 19 18 Respiratory Rate [Exercises] Respiratory Effort / Characteristics Non-Labored Spontaneous Respiratory Depth Normal Respiratory Pattern Blood Pressure 142/77 H Blood Pressure [Left Arm] 157/98 H Blood Pressure Mean 98 Blood Pressure Mean [Left Arm] 117 Blood Pressure Position [Left Arm] Pulse Oximetry 90 90 92 Pulse Oximetry [Exercises] Oxygen Delivery Method 09/17/18 20:38 09/17/18 20:54 09/17/18 21:35 Temperature 36.6 C 36.6 C Temperature Source Oral Oral Sepsis Recent Fever Within 48 Hours Sepsis Action Taken by Nursing Pulse Rate 90 Pulse Rate [Exercises] Pulse Rate [Right Finger] 86 86 Pulse Rate from SpO2 Sensor Respiratory Rate 20 20 20 Respiratory Rate [Exercises] Respiratory Effort / Characteristics Respiratory Depth Normal Respiratory Pattern Blood Pressure Blood Pressure [Left Arm] 168/88 H 168/88 H Blood Pressure Mean Blood Pressure Mean [Left Arm] 114 114 Blood Pressure Position [Left Arm] Sitting Sitting Pulse Oximetry 93 92 92 Pulse Oximetry [Exercises] Oxygen Delivery Method Room Air Room Air Room Air GENERAL: Patient is in no acute distress. HEENT: No acute trauma, normocephalic atraumatic, mucous membranes moist, no nasal congestion, no scleral icterus. NECK: No stridor, no adenopathy, no meningismus, trachea is midline. LUNGS: Decreased breath sounds on the left, especially at the bases, no wheezing, no respiratory distress. Patient seems short of breath with speaking at times. HEART: Without murmurs gallops or rubs, regular rate and rhythm. ABDOMEN: Soft, nontender, bowel sounds positive, no hernias, no peritonitis. Multiple contusions present which are consistent with Lovenox injections. Edema is present to the abdominal wall. EXTREMITIES: There is significant bilateral pedal edema. No erythema. There is a dressing to the left heel. No drainage. NEUROLOGIC: Oriented x 3, no acute motor or sensory deficits, no focal weakness. SKIN: No rash, no jaundice, no diaphoresis. Course 153: Past medical records reviewed. The patient was evaluated in room A10, and a complete history and physical examination were performed. 163: I reviewed the patient's EMR. He was discharged from the hospital on the 10th at 102 kilograms, today he is 104 kilograms. 173: I discussed the case with a [facility] nurse, she couldn't answer my questions. She will have the attending call me. 1747: I discussed the case with the [facility] attending Physician Director Of Content And Programming. She thought that they could manage the patient, but he is difficult. If he requires oxygen he may need to come back into the hospital. 175: I updated the patient. He is not sure if he is comfortable with going back. Will perform ambulatory trial pulse-Ox. 1826: I reviewed the patient's case with Dr. Barbara SAMPSON Hospitalist. He will evaluate the patient for further management. Administered Medications Discontinued Medications Furosemide (Lasix) 40 mg IV NOW STA Stop: 09/17/18 16:31 Last Admin: 09/17/18 17:00 Dose: 40 mg Documented by: [id number] Glucose (Dex4 Glucose) Confirm Administered Dose 10 tabs PO .ST51 Auto-MED ONE Stop: 09/17/18 20:53 Last Admin: 09/17/18 20:56 Dose: 10 tabs Documented by: [id number] Medical Decision Making Differential Diagnosis Differential Diagnosis includes: Renal failure, liver failure, electrolyte or metabolic abnormality, anemia, venous insufficiency, DVT, CHF, and fluid overload. Medical Records Attestation: I reviewed the patient's medical records. Home Medications Current Medication List: was personally reviewed by me Laboratory Data Attestation: I reviewed the patient's lab results. Result diagrams: 09/17/18 16:04 09/17/18 16:04 Lab Results 09/17/18 09/17/18 09/17/18 Range/Units 16:04 16:04 16:04 WBC 8.96 (4.8-10.8) K/uL RBC 3.42 L (4.7-6.1) M/uL Hgb 10.6 L (14.0-18.0) g/dL Hct 33.8 L (42-52) % MCV 98.8 (80-100) fL MCH 31.0 (25-34) pg MCHC 31.4 L (32-36) g/dL RDW Std Deviation 55.2 H (36.4-46.3) fL RDW Coeff of Clarissa 15.4 H (11.5-14.5) % Plt Count 259 (130-400) K/uL MPV 10.6 H (7.4-10.4) fL Immature Gran % (Auto) 0.3 % Neut % (Auto) 77.9 % Lymph % (Auto) 10.2 % [place] % (Auto) 8.6 % Eos % (Auto) 2.8 % Baso % (Auto) 0.2 % Immature Gran # (Auto) 0.03 H (0.00-0.02) K/uL Neut # (Auto) 6.98 H (1.4-6.5) K/uL Lymph # (Auto) 0.91 L (1.2-3.4) K/uL [place] # (Auto) 0.77 H (0.11-0.59) K/uL Eos # (Auto) 0.25 (0-0.5) K/uL Baso # (Auto) 0.02 (0-0.2) K/uL Sodium 141 (136-145) mmol/L Potassium 5.2 H (3.5-5.1) mmol/L Chloride 107 (98-107) mmol/L Carbon Dioxide 32 (21-32) mmol/L Anion Gap 2.0 L (3-11) BUN 37 H (7-18) mg/dl Creatinine 1.35 (0.6-1.4) mg/dl Est Cr Clr Drug Dosing 63.5 ml/min Est GFR ( Amer) 61.2 Est GFR (Non-Af Amer) 52.8 BUN/Creatinine Ratio 27.3 H (10-20) Glucose 126 H (70-99) mg/dl POC Glucose (70-99) Calcium 8.5 (8.5-10.1) mg/dl Phosphorus 3.4 Cancelled (2.5-4.9) mg/dl Magnesium 2.4 (1.8-2.4) mg/dl Total Bilirubin 0.4 (0.2-1) mg/dl AST 32 (15-37) U/L ALT 33 (12-78) U/L Alkaline Phosphatase 179 H (45-117) U/L Troponin I < 0.015 (0-0.045) ng/ml Total Protein 7.2 (6.4-8.2) gm/dl Albumin 3.3 L (3.4-5.0) gm/dl Globulin 3.9 (2.5-4.0) gm/dl Albumin/Globulin Ratio 0.8 L (0.9-2) TSH 4.380 (0.300-4.500) uIu/ml Specimen Hemolysis Urine Color Urine Appearance (Clear) Urine pH (4.5-7.5) Ur Specific [place] (1.000-1.030) Urine Protein (Negative) Urine Glucose (UA) (Negative) Urine Ketones (Negative) Urine Blood (Negative) Urine Nitrite (Negative) Urine Bilirubin (Negative) Urine Urobilinogen (Negative) Ur Leukocyte Esterase (Negative) Urine WBC (Auto) (0-5) /hpf Urine RBC (Auto) (0-4) /hpf U Hyaline Cast (Auto) (0-5) /lpf U Epithel Cells (Auto) (0-5) /lpf Urine Bacteria (Auto) (Negative) 09/17/18 09/17/18 09/17/18 Range/Units 17:33 20:50 20:52 WBC (4.8-10.8) K/uL RBC (4.7-6.1) M/uL Hgb (14.0-18.0) g/dL Hct (42-52) % MCV (80-100) fL MCH (25-34) pg MCHC (32-36) g/dL RDW Std Deviation (36.4-46.3) fL RDW Coeff of Clarissa (11.5-14.5) % Plt Count (130-400) K/uL MPV (7.4-10.4) fL Immature Gran % (Auto) % Neut % (Auto) % Lymph % (Auto) % [place] % (Auto) % Eos % (Auto) % Baso % (Auto) % Immature Gran # (Auto) (0.00-0.02) K/uL Neut # (Auto) (1.4-6.5) K/uL Lymph # (Auto) (1.2-3.4) K/uL [place] # (Auto) (0.11-0.59) K/uL Eos # (Auto) (0-0.5) K/uL Baso # (Auto) (0-0.2) K/uL Sodium (136-145) mmol/L Potassium (3.5-5.1) mmol/L Chloride (98-107) mmol/L Carbon Dioxide (21-32) mmol/L Anion Gap (3-11) BUN (7-18) mg/dl Creatinine (0.6-1.4) mg/dl Est Cr Clr Drug Dosing ml/min Est GFR ( Amer) Est GFR (Non-Af Amer) BUN/Creatinine Ratio (10-20) Glucose (70-99) mg/dl POC Glucose 68 L* 62 L* (70-99) Calcium (8.5-10.1) mg/dl Phosphorus (2.5-4.9) mg/dl Magnesium (1.8-2.4) mg/dl Total Bilirubin (0.2-1) mg/dl AST (15-37) U/L ALT (12-78) U/L Alkaline Phosphatase (45-117) U/L Troponin I (0-0.045) ng/ml Total Protein (6.4-8.2) gm/dl Albumin (3.4-5.0) gm/dl Globulin (2.5-4.0) gm/dl Albumin/Globulin Ratio (0.9-2) TSH (0.300-4.500) uIu/ml Specimen Hemolysis Urine Color Yellow Urine Appearance Clear (Clear) Urine pH 7.5 (4.5-7.5) Ur Specific [place] 1.012 (1.000-1.030) Urine Protein Negative (Negative) Urine Glucose (UA) Negative (Negative) Urine Ketones Negative (Negative) Urine Blood Trace H (Negative) Urine Nitrite Negative (Negative) Urine Bilirubin Negative (Negative) Urine Urobilinogen Negative (Negative) Ur Leukocyte Esterase 1+ H (Negative) Urine WBC (Auto) 1-5 (0-5) /hpf Urine RBC (Auto) 0-4 (0-4) /hpf U Hyaline Cast (Auto) 0 (0-5) /lpf U Epithel Cells (Auto) 5-10 H (0-5) /lpf Urine Bacteria (Auto) Negative (Negative) 09/17/18 Range/Units 21:34 WBC (4.8-10.8) K/uL RBC (4.7-6.1) M/uL Hgb (14.0-18.0) g/dL Hct (42-52) % MCV (80-100) fL MCH (25-34) pg MCHC (32-36) g/dL RDW Std Deviation (36.4-46.3) fL RDW Coeff of Clarissa (11.5-14.5) % Plt Count (130-400) K/uL MPV (7.4-10.4) fL Immature Gran % (Auto) % Neut % (Auto) % Lymph % (Auto) % [place] % (Auto) % Eos % (Auto) % Baso % (Auto) % Immature Gran # (Auto) (0.00-0.02) K/uL Neut # (Auto) (1.4-6.5) K/uL Lymph # (Auto) (1.2-3.4) K/uL [place] # (Auto) (0.11-0.59) K/uL Eos # (Auto) (0-0.5) K/uL Baso # (Auto) (0-0.2) K/uL Sodium (136-145) mmol/L Potassium (3.5-5.1) mmol/L Chloride (98-107) mmol/L Carbon Dioxide (21-32) mmol/L Anion Gap (3-11) BUN (7-18) mg/dl Creatinine (0.6-1.4) mg/dl Est Cr Clr Drug Dosing ml/min Est GFR ( Amer) Est GFR (Non-Af Amer) BUN/Creatinine Ratio (10-20) Glucose (70-99) mg/dl POC Glucose 121 H (70-99) Calcium (8.5-10.1) mg/dl Phosphorus (2.5-4.9) mg/dl Magnesium (1.8-2.4) mg/dl Total Bilirubin (0.2-1) mg/dl AST (15-37) U/L ALT (12-78) U/L Alkaline Phosphatase (45-117) U/L Troponin I (0-0.045) ng/ml Total Protein (6.4-8.2) gm/dl Albumin (3.4-5.0) gm/dl Globulin (2.5-4.0) gm/dl Albumin/Globulin Ratio (0.9-2) TSH (0.300-4.500) uIu/ml Specimen Hemolysis Urine Color Urine Appearance (Clear) Urine pH (4.5-7.5) Ur Specific [place] (1.000-1.030) Urine Protein (Negative) Urine Glucose (UA) (Negative) Urine Ketones (Negative) Urine Blood (Negative) Urine Nitrite (Negative) Urine Bilirubin (Negative) Urine Urobilinogen (Negative) Ur Leukocyte Esterase (Negative) Urine WBC (Auto) (0-5) /hpf Urine RBC (Auto) (0-4) /hpf U Hyaline Cast (Auto) (0-5) /lpf U Epithel Cells (Auto) (0-5) /lpf Urine Bacteria (Auto) (Negative) Imaging Data Attestation: I personally reviewed and interpreted this imaging study as follows: Radiologist's Impression: ULTRASOUND BILATERAL LOWER EXTREMITY VENOUS CLINICAL HISTORY: Leg pain and swelling. COMPARISON STUDY: Left lower extremity venous ultrasound dated 08/18/2018. TECHNIQUE: Real-time, grayscale, and color Doppler sonography of the deep veins of the right and left lower extremity was performed from the inguinal crease to the calf. Compression and augmentation were utilized. FINDINGS: There is no sonographic evidence of deep venous thrombosis identified in the right or left lower extremity. The common femoral, superficial femoral, and popliteal veins are patent and normally compressible bilaterally. The greater saphenous vein and the profunda femoris vein at the junction with the common femoral vein are clear in both legs. The visualized calf veins are patent bilaterally. Subcutaneous soft tissue edema is present in both legs. IMPRESSION: There is no sonographic evidence of deep venous thrombosis identified in the right or left lower extremity. Electronically signed by: Moi Almazan M.D. 09/17/2018 4:53 PM XR chest 1V portable CLINICAL HISTORY: weakness COMPARISON STUDY: 09/06/2018 FINDINGS: The cardiac images so contours remain stable. There are increasing bilateral pleural effusions. There are associated basilar airspace opacities, likely representing compressive atelectasis although superimposed pneumonia could appear similar. There is mild pulmonary vascular congestion.[ IMPRESSION: 1. Radiographic evidence of mild congestive failure/fluid overload 2. Increasing bilateral pleural effusions 3. Basilar airspace opacities, likely representing compressive atelectasis although a superimposed pneumonia could appear similar Electronically signed by: Houston Marques M.D. 09/17/2018 4:17 PM ECG Data Attestation: I personally reviewed and interpreted this ECG as follows: Indication: SOB/dyspnea Rate (beats per minute): 88 Rhythm: normal sinus Findings: + nonspecific-ST abn (inferior and lateral); no ST elevation Comparison ECG Date: from (09/06/2018) Change: no significant change Blood Pressure Blood Pressure Findings: Elevated blood pressure Blood Pressure Disposition: further management by hospitalist ARTURO Narrative There is no leukocytosis. A mild anemia is present but this is baseline for the patient. No significant electrolyte abnormality or kidney failure. There was no hepatitis. EKG showed a sinus rhythm, no acute ischemia. Cardiac enzyme tabitha ting x1 was not consistent with acute cardiac injury. The patient appeared to be in a euthyroid state. Urinalysis did not show infection. Bilateral lower extremity ultrasound does not show any evidence for DVT. Chest film does show bilateral pleural effusions and CHF. The patient received IV Lasix, he has diuresed. The patient was walked around the ED, his O2 saturation dropped to 87%, his h eart rate increased. The patient is fluid overloaded and in heart failure. This is causing his dys pnea. He has edema across his legs and up his abdominal wall. The patient has gained weight as per his records from his recent discharge. I do think a hospital stay is warranted. With the hypoxia, I do not think it is safe for him to be back at [facility]. I did speak to the patient and case angel eagle. The on-call hospitalist was consulted. Impression & Plan Hypoxia, SOB (shortness of breath), CHF (congestive heart failure), Fluid overload Discharge Plan Visit Data *Final* Discharge Date/Time: 09/17/18 20:38 Chief Complaint: Shortness of Breath/Dyspnea Stated Complaint: SOB ED Provider: Moi Muse Discharge Problem: Hypoxia, SOB (shortness of breath), CHF (congestive heart failure), Fluid overload Patient Disposition: Admitted As Inpatient Discharge Instructions Interventions: ED Discharge Assessment Last Done: 09/17/18 20:38 Discharge Problem: Fluid overload Qualifiers: Hypervolemia type: unspecified Qualified Code(s): E87.70 - Fluid overload, unspecified The scribe's documentation has been prepared under my direction and personally reviewed by me in its entirety. I confirm that the note above accurately reflects all work, treatment, procedures, and medical decision making performed by me.
[2018-09-17] MEDS ORDERED: FUROSEMIDE 40 MG/4 ML VIAL IV STA (16:30)
[2018-09-17 16:38] LABS: Alanine Aminotransferase 33 U/L (12-78); Albumin Level 3.3 gm/dl (3.4-5.0); Aspartate Aminotransferase 32 U/L (15-37); BUN Creatinine Ratio 27.3 (10-20); Blood Urea Nitrogen 37 mg/dl (7-18); Calcium 8.5 mg/dl (8.5-10.1); Carbon Dioxide 32 mmol/L (21-32); Chloride 107 mmol/L (98-107); Creatinine Clr Calc Pharmacy 63.5 ml/min; Est GFR (African American) 61.2; Est GFR (Non-African American) 52.8; Glucose 126 mg/dl (70-99); Magnesium 2.4 mg/dl (1.8-2.4); Potassium 5.2 mmol/L (3.5-5.1); Sodium 141 mmol/L (136-145)
[2018-09-17 16:46] LABS: Albumin Globulin Ratio 0.8 (0.9-2); Alkaline Phosphatase 179 U/L (45-117); Bilirubin,Total 0.4 mg/dl (0.2-1); Globulin 3.9 gm/dl (2.5-4.0); Total Protein 7.2 gm/dl (6.4-8.2); Troponin I < 0.015 ng/ml (0-0.045)
--- NOTE | 2018-09-17 16:54 | Ultrasound Report ---
ULTRASOUND BILATERAL LOWER EXTREMITY VENOUS CLINICAL HISTORY: Leg pain and swelling. COMPARISON STUDY: Left lower extremity venous ultrasound dated 08/18/2018. TECHNIQUE: Real-time, grayscale, and color Doppler sonography of the deep veins of the right and left lower extremity was performed from the inguinal crease to the calf. Compression and augmentation wer e utilized. FINDINGS: There is no sonographic evidence of deep venous thrombosis identified in the right or left lower extremity. The common femoral, superficial femoral, and popliteal veins are patent and normally compressible bilaterally. The greater saphenous vein and the profunda femoris vein at the junction w ith the common femoral vein are clear in both legs. The visualized calf veins are patent bilaterally. Subcutaneous soft tissue edema is present in both legs. IMPRESSION: There is no sonographic evidence of deep venous thrombosis identified in the right or lef t lower extremity. Electronically signed by: Moi Almazan M.D. 09/17/2018 4:53 PM
[2018-09-17 18:15] LABS: Appearance Urine Clear (Clear); Bacteria Urine Automated Negative (Negative); Bilirubin Urine Negative (Negative); Blood Urine Trace (Negative); Cast Urine Automated 0 /lpf (0-5); Color Urine Yellow; Glucose Urine UA Negative (Negative); Ketones Urine Negative (Negative); Leukocyte Esterase Urine 1+ (Negative); Nitrite Urine Negative (Negative); Protein Urine Negative (Negative); RBC Urine Automated 0-4 /hpf (0-4); Specific Gravity Urine 1.012 (1.000-1.030); Urobilinogen Urine Negative (Negative); pH Urine 7.5 (4.5-7.5)
[2018-09-17] MEDS ORDERED: GLUCOSE 10 TABS/TUBE PO ONE (20:52)
[2018-09-17] MEDS ORDERED: GLUCAGON FOR INJ 1 MG VIAL SQ PRN (20:54)
[2018-09-17] MEDS ORDERED: SOD PHOSPHATE/SOD BIPHOSPHATE ENEMA 132 ML BTL PR PRN (20:54)
[2018-09-17] MEDS ORDERED: GLUCOSE 10 TABS/TUBE PO PRN (20:54)
[2018-09-17] MEDS ORDERED: CARBOHYDRATES FOR HYPOGLYCEMIA PO PRN (20:54)
[2018-09-17] MEDS ORDERED: MAGNESIUM HYDROXIDE SUSP 30 ML UDC PO PRN (20:54)
[2018-09-17] MEDS ORDERED: BISACODYL 10 MG SUPP PR PRN (20:54)
[2018-09-17] MEDS ORDERED: SENNA 8.6 MG TAB PO PRN (20:54)
[2018-09-17] MEDS ORDERED: GLUCOSE 40% GEL 15 GM TUBE PO PRN (20:54)
[2018-09-17] MEDS ORDERED: LANTUS PER UNIT CHARGE SC SCH (20:54)
[2018-09-17] MEDS ORDERED: DEXTROSE 50% 50 ML SYRINGE IV PRN (20:54)
[2018-09-17] MEDS ORDERED: ACETAMINOPHEN 500 MG TAB PO PRN (20:54)
[2018-09-17 21:28] LABS: Phosphorus 3.4 mg/dl (2.5-4.9)
--- NOTE | 2018-09-17 21:52 | History & Physical Report ---
Date of Service September 17, 2018 Assessment & Plan (1) CHF (congestive heart failure): Patient presents with orthopnea, progressive edema, weight gain, pulmonary congestion and JVD. Known CHF. Last echo performed 09/07/18 with preserved EF. ?IVF during previous hospital stay, lasix was on hold as well due to declining renal function. Patient presently with mild conversational dyspnea, 89-92% on room air while at rest. No overt respiratory distress. He was administered Lasix 40mg IV in the ER with good effect. * Will admit to medical floor with telemetry monitoring * Monitor strict I/O's, daily weights * Lasix 40mg IV BID * BMP q 12 hours to monitor electrolytes and renal function with diuresis * Continue home Metoprolol and Lisinopril (2) Hypoxia: Most likely secondary to acute exacerbation of CHF. Presently with adequate oxygenation on room air. No severe distress * Supplemental O2 as needed * Diuresis and CHF management as above (3) Diabetes type 2, uncontrolled: Patient with history of DM on insulin therapy. Poorly controlled, YbA4E=30.4 in August 2018. Hypoglycemic during last hospital stay in setting of presumed sepsis. Questionable compliance with outpatient medication regimen. * Will hold basal insulin for now * Manage with ISS for now * CC diet as tolerated (4) Stage III pressure ulcer of left heel: Covered. No evidence of infection * Wound assessment, consult if needed * Offload heels (5) BPH (benign prostatic hyperplasia): Chronic * Continue Tamsulosin 0.4mg po daily (6) Chronic kidney disease, stage III (moderate): Patient near baseline renal function. Adequate UOP in response to Lasix * Monitor BUN, Cr, electrolytes and UOP * Avoid nephrotoxic agents * Renal dosing where appropriate (7) Hyperlipidemia: Chronic * Continue Atorvastatin 40mg po daily (8) CAD (coronary artery disease): Stable. No CP. No EKG evidence of ischemia * Continue ASA, Plavix, Atorvastatin, Metoprolol and Lisinopril (9) Hypertension: BP stable at present F/E/N - Diuresis with Lasix 40mg IV BID, monitor electrolytes BID and correct as needed, continue home magnesium, folic acid and vitamin B12, CC/low Na/heart hea lthydiet as tolerated. Continue home bowel regimen, enema/Senna Ppx - Lovenox Code -Full Dispo - 251-1 History of Present Illness Chief Complaint: orthopnea Primary Care Provider: Hayley Watson MD Mr. Patel is a 68yo male with history of CAD, combined CHF, DMII, CKD III, HTN, HLP. He was recently admitted on September 05 with suspected PNA and sepsis with transient hypotension and hypoglycemia. Found to have bronchitis rather than true PNA, imaging without infiltrate. He was treated with a course of Doxycycline and Advair. Lasix was held during his hospital stay due to declining renal function. An echocardiogram was performed on 09/07/18 which revealed normal LV size and function with mild concentric LVG, EF of 55-60%. Patient was discharged to [facility] on 09/12/18. He reports that he has been overall feeling well since his prior hospital stay. He has been participating in rehab exercises without difficulty. This afternoon he laid down after lunch and became very short of breath. He states that he has had progressive bilateral LE edema as well as weight gain, approximately 3 kg. He denies CP/palpitations/dizziness. Denies cough/wheeze. Denies abdominal pain/nausea/vomiting/diarrhea or constipation. No additional complaints at this time Patient 87% on room air with ambulation in the ER. 89% at rest. Allergies Allergy/AdvReac Type Severity Reaction Status Date / Time poliomyelitis vaccine, live Allergy Unknown Unknown Verified 09/17/18 16:26 oral Home Medications Home Medications Medication Instructions Recorded Confirmed Type aspirin 81 mg tablet,delayed 81 mg PO DAILY 03/02/18 09/17/18 History release atorvastatin 40 mg tablet 40 mg PO HS tab 03/02/18 09/17/18 History clopidogrel 75 mg tablet 75 mg PO DAILY 03/02/18 09/17/18 History cyanocobalamin (vit B-12) 1,000 1,000 mcg PO DAILY 03/02/18 09/17/18 History mcg tablet folic acid 1 mg tablet 1 mg PO DAILY 03/02/18 09/17/18 History magnesium oxide 400 mg capsule 400 mg PO DAILY cap 03/02/18 09/17/18 History metoprolol succinate ER 50 mg 50 mg PO DAILY ea 03/02/18 09/17/18 History capsule sprinkle, ext. release 24 hr tamsulosin 0.4 mg capsule 0.4 mg PO HS cap 03/02/18 09/17/18 History acetaminophen [Tylenol Extra 500 mg PO Q12H PRN 07/01/18 09/17/18 History Strength] cholecalciferol (vitamin D3) 5,000 units PO DAILY 07/01/18 09/17/18 History [Vitamin D3] bisacodyl 10 mg [place] DAILY PRN 09/17/18 09/17/18 History docusate sodium 100 mg PO BID 09/17/18 09/17/18 History doxycycline hyclate 100 mg PO Q12H 09/17/18 09/17/18 History fluticasone-vilanterol 1 inh INHALATION DAILY 09/17/18 09/17/18 History heparin (porcine) 5,000 units SUBCUT Q8H 09/17/18 09/17/18 History insulin aspart U-100 [Novolog 1 sliding scale dose SC ACHS 09/17/18 09/17/18 History Flexpen U-100 Insulin] insulin glargine [Lantus U-100 12 units SC Q12H 09/17/18 09/17/18 History Insulin] ipratropium-albuterol 3 ml INHALATION Q4H PRN 09/17/18 09/17/18 History lisinopril 2.5 mg PO DAILY 09/17/18 09/17/18 History magnesium hydroxide 30 ml PO DAILY PRN 09/17/18 09/17/18 History multivitamin with minerals 1 tab PO DAILY 09/17/18 09/17/18 History sennosides [senna] 8.6 mg PO QAM PRN 09/17/18 09/17/18 History sodium phosphates [Fleet Enema] 118 ml [place] DAILY PRN 09/17/18 09/17/18 History Past Med/Surg History Medical History Acute blood loss anemia (Acute) Acute renal insufficiency (Acute) Hematuria (Acute) ATN (acute tubular necrosis) (Chronic) Abscess (Chronic) DM II (diabetes mellitus, type II), controlled (Chronic) HTN (hypertension) (Chronic) Hydronephrosis (Chronic) MSSA (methicillin susceptible Staphylococcus aureus) (Chronic) Osteomyelitis (Chronic) Peripherally inserted central catheter in place (Chronic) Recurrent UTI (Chronic) Sepsis (Chronic) Yeast dermatitis (Chronic) Surgical History History of tonsillectomy Social History Preferred Language: [place] Communication Ability: Effective Spinner Tender Required: No Beliefs That Will Affect Care: None marital status: Single Current Living Situation: Alone Current Living Situation Comment: [place] [facility] current occupational status: retired Feels Safe at Home: Yes Safety Concerns: Feels Safe At This Time Smoking Status: Never smoker Hx Alcohol Use: No Hx Substance Use: No Review of Systems All systems reviewed & are unremarkable except as noted in HPI & below Physical Exam Vital Signs (Past 24 Hours): Last Vital Signs Temp 36.6 C 09/17/18 20:54 Pulse 86 09/17/18 20:54 Resp 20 09/17/18 20:54 BP 168/88 H 09/17/18 20:54 Pulse Ox 92 09/17/18 20:54 Physical Exam: General: patient resting comfortably, NAD, non-toxic in appearance, AA&O x 4, mild conversational dyspnea Skin: warm, dry, intact, no rashes or lesions HEENT: NC/AT, PERRL, EOMI, anicteric sclera, conjunctiva without injection, external ear normal to inspection and nontender, nares patent, moist mucus membranes, dentition intact, no oropharyngeal lesions, neck supple, trachea midline, no LAD, no thyromegaly, +JVD to angle of the jaw noted on R > L with patient at 45 degrees Heart: +S1/S2, regular, no m/r/g Lungs: equal air entry bilaterally, crackles in bilateral bases to mid lung cha, no rhonchi/wheezes Abd: +BS, soft, NT/ND, no masses/organomegaly/ascites, +abdominal wall edema Ext: warm, 2+ pulses in UE/LE bilaterally, no clubbing/cyanosis, 3+ pitting edema of bilateral LEs to abdominal wall Neuro: nonfocal, patient AA&O x 4, speech intact, no facial droop, moving all extremities on command with equal strength 5/5 Results & Data Laboratory Results Lab Results 09/17/18 09/17/18 09/17/18 Range/Units 16:04 16:04 16:04 WBC 8.96 (4.8-10.8) K/uL RBC 3.42 L (4.7-6.1) M/uL Hgb 10.6 L (14.0-18.0) g/dL Hct 33.8 L (42-52) % MCV 98.8 (80-100) fL MCH 31.0 (25-34) pg MCHC 31.4 L (32-36) g/dL RDW Std Deviation 55.2 H (36.4-46.3) fL RDW Coeff of Clarissa 15.4 H (11.5-14.5) % Plt Count 259 (130-400) K/uL MPV 10.6 H (7.4-10.4) fL Immature Gran % (Auto) 0.3 % Neut % (Auto) 77.9 % Lymph % (Auto) 10.2 % [place] % (Auto) 8.6 % Eos % (Auto) 2.8 % Baso % (Auto) 0.2 % Immature Gran # (Auto) 0.03 H (0.00-0.02) K/uL Neut # (Auto) 6.98 H (1.4-6.5) K/uL Lymph # (Auto) 0.91 L (1.2-3.4) K/uL [place] # (Auto) 0.77 H (0.11-0.59) K/uL Eos # (Auto) 0.25 (0-0.5) K/uL Baso # (Auto) 0.02 (0-0.2) K/uL Sodium 141 (136-145) mmol/L Potassium 5.2 H (3.5-5.1) mmol/L Chloride 107 (98-107) mmol/L Carbon Dioxide 32 (21-32) mmol/L Anion Gap 2.0 L (3-11) BUN 37 H (7-18) mg/dl Creatinine 1.35 (0.6-1.4) mg/dl Est Cr Clr Drug Dosing 63.5 ml/min Est GFR ( Amer) 61.2 Est GFR (Non-Af Amer) 52.8 BUN/Creatinine Ratio 27.3 H (10-20) Glucose 126 H (70-99) mg/dl POC Glucose (70-99) Calcium 8.5 (8.5-10.1) mg/dl Phosphorus 3.4 Cancelled (2.5-4.9) mg/dl Magnesium 2.4 (1.8-2.4) mg/dl Total Bilirubin 0.4 (0.2-1) mg/dl AST 32 (15-37) U/L ALT 33 (12-78) U/L Alkaline Phosphatase 179 H (45-117) U/L Troponin I < 0.015 (0-0.045) ng/ml Total Protein 7.2 (6.4-8.2) gm/dl Albumin 3.3 L (3.4-5.0) gm/dl Globulin 3.9 (2.5-4.0) gm/dl Albumin/Globulin Ratio 0.8 L (0.9-2) TSH 4.380 (0.300-4.500) uIu/ml Specimen Hemolysis Urine Color Urine Appearance (Clear) Urine pH (4.5-7.5) Ur Specific [place] (1.000-1.030) Urine Protein (Negative) Urine Glucose (UA) (Negative) Urine Ketones (Negative) Urine Blood (Negative) Urine Nitrite (Negative) Urine Bilirubin (Negative) Urine Urobilinogen (Negative) Ur Leukocyte Esterase (Negative) Urine WBC (Auto) (0-5) /hpf Urine RBC (Auto) (0-4) /hpf U Hyaline Cast (Auto) (0-5) /lpf U Epithel Cells (Auto) (0-5) /lpf Urine Bacteria (Auto) (Negative) 09/17/18 09/17/18 09/17/18 Range/Units 17:33 20:50 20:52 WBC (4.8-10.8) K/uL RBC (4.7-6.1) M/uL Hgb (14.0-18.0) g/dL Hct (42-52) % MCV (80-100) fL MCH (25-34) pg MCHC (32-36) g/dL RDW Std Deviation (36.4-46.3) fL RDW Coeff of Clarissa (11.5-14.5) % Plt Count (130-400) K/uL MPV (7.4-10.4) fL Immature Gran % (Auto) % Neut % (Auto) % Lymph % (Auto) % [place] % (Auto) % Eos % (Auto) % Baso % (Auto) % Immature Gran # (Auto) (0.00-0.02) K/uL Neut # (Auto) (1.4-6.5) K/uL Lymph # (Auto) (1.2-3.4) K/uL [place] # (Auto) (0.11-0.59) K/uL Eos # (Auto) (0-0.5) K/uL Baso # (Auto) (0-0.2) K/uL Sodium (136-145) mmol/L Potassium (3.5-5.1) mmol/L Chloride (98-107) mmol/L Carbon Dioxide (21-32) mmol/L Anion Gap (3-11) BUN (7-18) mg/dl Creatinine (0.6-1.4) mg/dl Est Cr Clr Drug Dosing ml/min Est GFR ( Amer) Est GFR (Non-Af Amer) BUN/Creatinine Ratio (10-20) Glucose (70-99) mg/dl POC Glucose 68 L* 62 L* (70-99) Calcium (8.5-10.1) mg/dl Phosphorus (2.5-4.9) mg/dl Magnesium (1.8-2.4) mg/dl Total Bilirubin (0.2-1) mg/dl AST (15-37) U/L ALT (12-78) U/L Alkaline Phosphatase (45-117) U/L Troponin I (0-0.045) ng/ml Total Protein (6.4-8.2) gm/dl Albumin (3.4-5.0) gm/dl Globulin (2.5-4.0) gm/dl Albumin/Globulin Ratio (0.9-2) TSH (0.300-4.500) uIu/ml Specimen Hemolysis Urine Color Yellow Urine Appearance Clear (Clear) Urine pH 7.5 (4.5-7.5) Ur Specific [place] 1.012 (1.000-1.030) Urine Protein Negative (Negative) Urine Glucose (UA) Negative (Negative) Urine Ketones Negative (Negative) Urine Blood Trace H (Negative) Urine Nitrite Negative (Negative) Urine Bilirubin Negative (Negative) Urine Urobilinogen Negative (Negative) Ur Leukocyte Esterase 1+ H (Negative) Urine WBC (Auto) 1-5 (0-5) /hpf Urine RBC (Auto) 0-4 (0-4) /hpf U Hyaline Cast (Auto) 0 (0-5) /lpf U Epithel Cells (Auto) 5-10 H (0-5) /lpf Urine Bacteria (Auto) Negative (Negative) Diagnostic Findings ULTRASOUND BILATERAL LOWER EXTREMITY VENOUS CLINICAL HISTORY: Leg pain and swelling. COMPARISON STUDY: Left lower extremity venous ultrasound dated 08/18/2018. TECHNIQUE: Real-time, grayscale, and color Doppler sonography of the deep veins of the right and left lower extremity was performed from the inguinal crease to the calf. Compression and augmentation were utilized. FINDINGS: There is no sonographic evidence of deep venous thrombosis identified in the right or left lower extremity. The common femoral, superficial femoral, and popliteal veins are patent and normally compressible bilaterally. The greater saphenous vein and the profunda femoris vein at the junction with the common femoral vein are clear in both legs. The visualized calf veins are patent bilaterally. Subcutaneous soft tissue edema is present in both legs. IMPRESSION: There is no sonographic evidence of deep venous thrombosis identified in the right or left lower extremity. Electronically signed by: Moi Almazan M.D. 09/17/2018 4:53 PM Dictated: 09/17/18 1652 Transcribed: 09/17/181651 XR chest 1V portable CLINICAL HISTORY: weakness COMPARISON STUDY: 09/06/2018 FINDINGS: The cardiac images so contours remain stable. There are increasing bilateral pleural effusions. There are associated basilar airspace opacities, likely representing compressive atelectasis although superimposed pneumonia could appear similar. There is mild pulmonary vascular congestion.[ IMPRESSION: 1. Radiographic evidence of mild congestive failure/fluid overload 2. Increasing bilateral pleural effusions 3. Basilar airspace opacities, likely representing compressive atelectasis although a superimposed pneumonia could appear similar Electronically signed by: Houston Marques M.D. 09/17/2018 4:17 PM Dictated: 09/17/18 1616 Transcribed: 09/17/18 1616 ECG Additional Comments: THe study shows NSR at 88bpm, normal axis, CH=171, QRS=86, OKh=440, TWI in inferior leads, unchanged from prior study Code Status & VTE Plan Code Status FULL VTE Prophylaxis Plan VTE Prophylaxis will be ordered: Yes Critical Care Time Critical Care Time: No (1) BPH (benign prostatic hyperplasia) Lower urinary tract symptom presence: symptoms absent Qualified Code(s): N40.0 - Benign prostatic hyperplasia without lower urinary tract symptoms (2) CHF (congestive heart failure) Heart failure chronicity: chronic Heart failure type: unspecified Qualified Code(s): I50.9 - Heart failure, unspecified (3) Diabetes type 2, uncontrolled Coma presence: without coma Glycemic state: with hypoglycemia Qualified Code(s): E11.649 - Type 2 diabetes mellitus with hypoglycemia without coma
[2018-09-18] MEDS: INSULIN ASPART 100 UNITS/ML 3 ML PEN SC SCH ×5 (00:25→20:47)
[2018-09-18] MEDS: TAMSULOSIN HCL 0.4 MG CAP PO SCH ×2 (00:26→20:49)
[2018-09-18] MEDS: DOCUSATE SODIUM 100 MG CAP PO SCH ×3 (00:26→20:48)
[2018-09-18] MEDS: ATORVASTATIN 40 MG TAB PO SCH ×2 (00:27→20:48)
[2018-09-18] MEDS: ALBUT/IPRATROP 3MG/0.5MG NEB 3 ML VIAL INH PRN ×2 (00:37→21:48)
[2018-09-18 07:22] LABS: Basophils # (auto) 0.02 K/uL (0-0.2); Basophils % (auto) 0.3 %; Eosinophils # (auto) 0.32 K/uL (0-0.5); Eosinophils % (auto) 4.6 %; Hematocrit (blood only) 33.2 % (42-52); Hemoglobin 10.4 g/dL (14.0-18.0); Immature Granulocytes # (auto) 0.02 K/uL (0.00-0.02); Immature Granulocytes % (auto) 0.3 %; Lymphocytes # (auto) 0.84 K/uL (1.2-3.4); Lymphocytes % (auto) 12.1 %; Mean Corpuscular Hgb Conc 31.3 g/dL (32-36); Mean Corpuscular Volume 98.5 fL (80-100); Mean Platelet Volume 10.6 fL (7.4-10.4); Monocytes # (auto) 0.61 K/uL (0.11-0.59); Monocytes % (auto) 8.8 %; Neutrophils # (auto) 5.12 K/uL (1.4-6.5); Neutrophils % (auto) 73.9 %; Platelet Count 232 K/uL (130-400); RDW Coefficient of Variation 15.6 % (11.5-14.5); RDW Standard Deviation 56.4 fL (36.4-46.3); Red Blood Count 3.37 M/uL (4.7-6.1); White Blood Count 6.93 K/uL (4.8-10.8)
[2018-09-18 08:01] LABS: BUN Creatinine Ratio 24.5 (10-20); Calcium 8.8 mg/dl (8.5-10.1); Creatinine Clr Calc Pharmacy 61.6 ml/min; Est GFR (African American) 60.1; Est GFR (Non-African American) 51.9; Magnesium 2.4 mg/dl (1.8-2.4); Potassium 4.4 mmol/L (3.5-5.1)
[2018-09-18] MEDS: CEROVITE ADV FORMULA TAB PO SCH (08:33)
[2018-09-18] MEDS: FOLIC ACID 1 MG TAB PO SCH (08:33)
[2018-09-18] MEDS: MAGNESIUM OXIDE 400 MG TAB PO SCH (08:34)
[2018-09-18] MEDS: CYANOCOBALAMIN 500 MCG TABLET (VITAMIN B-12) PO SCH (08:35)
[2018-09-18] MEDS: METOPROLOL SUCC 50MG EXT REL TAB PO SCH (08:35)
[2018-09-18] MEDS: CHOLECALCIFEROL 1,000 UNITS TAB PO SCH (08:36)
[2018-09-18] MEDS: LISINOPRIL 2.5 MG TAB PO SCH (08:36)
[2018-09-18] MEDS: ASPIRIN 81 MG ECTAB PO SCH (08:36)
[2018-09-18] MEDS: FUROSEMIDE 40 MG in SYRINGE 0 ML IV SCH ×2 (08:37→16:56)
[2018-09-18] MEDS: CLOPIDOGREL BISULFATE 75 MG TAB PO SCH (08:39)
[2018-09-18 10:25] LABS: INR 1.1 (0.9-1.1); Prothrombin Time 11.2 Seconds (9.0-12.0)
[2018-09-18] MEDS: ENOXAPARIN INJ 40 MG/0.4 ML SYR SQ SCH (14:41)
--- NOTE | 2018-09-18 18:44 | Hospitalist Progress Note ---
Date of Service September 18, 2018 Assessment & Plan (1) CHF (congestive heart failure): Acute on chronic diastolic CHF. Last ECHO with inormal EF improved from previous of LVEF 30%. Patient presents with orthopnea, progressive edema, weight gain, pulmonary congestion and JVD. Last echo performed 09/07/18 with preserved EF. ?IVF during previous hospital stay, lasix was on hold as well due to declining renal function. Patient presently with mild conversational dyspnea, 89-92% on room air while at rest. No overt respiratory distress. He was administered Lasix 40mg IV in the ER with good effect. Now clinically much improved. Weight is actually down quite a bit since he was last here but does appear edematous * continue IV lasix 40mg bid * Monitor strict I/O's, daily weights * follow BMP to monitor electrolytes and renal function with diuresis * Continue home Metoprolol and Lisinopril (2) Hypoxia: Most likely secondary to acute exacerbation of CHF. Presently with adequate oxygenation on room air. No severe distress * Supplemental O2 as needed * Diuresis and CHF management as above (3) Diabetes type 2, uncontrolled: Patient with history of DM on insulin therapy. Poorly controlled, JyA2D=35.4 in August 2018. Hypoglycemic here on admission, now improved with holding Lantus * restart Lantus at 10 units qhs (home dose 12 units bid but questionable compliance) * continue ISS (4) Stage III pressure ulcer of left heel: Covered. No evidence of infection * Wound assessment, consult if needed * Offload heels (5) BPH (benign prostatic hyperplasia): Chronic * Continue Tamsulosin 0.4mg po daily (6) Chronic kidney disease, stage III (moderate): Patient near baseline renal function. Adequate UOP in response to Lasix * Monitor BUN, Cr, electrolytes and UOP * Avoid nephrotoxic agents * Renal dosing where appropriate (7) Hyperlipidemia: Chronic * Continue Atorvastatin 40mg po daily (8) CAD (coronary artery disease): Stable. No CP. No EKG evidence of ischemia * Continue ASA, Plavix, Atorvastatin, Metoprolol and Lisinopril (9) Hypertension: BP stable at present -continue lisinopril, metoprolol F/E/N - continue home magnesium, folic acid and vitamin B12, CC/low Na/heart healthydiet as tolerated. Continue home bowel regimen, enema/Senna (10) Macrocytic anemia: hgb 10 range, MCV 100, is on folate and B12 po -check B12, folate, TSH levels (11) PAD (peripheral artery disease): with 70-99% stenosis left distal SFA as per recent arterial studies, with nonhealing left heel ulcer -is supposed to be following up with Dr. Aden for possible intervention? (12) DVT prophylaxis: SQ heparin Dispo-remain on tele PT/OT evals Subjective Feeling better, is able to lie flat now without dyspnea. No chest pains, no nausea, is eating well. Has no other concerns. Says his legs have been swollen for a few weeks now. Review of Systems All systems reviewed & are unremarkable except as noted in HPI & below Physical Exam Vital Signs (Past 24 Hours): Last Vital Signs Temp 36.7 C 09/18/18 14:50 Pulse 88 09/18/18 14:50 Resp 20 09/18/18 14:50 BP 147/81 H 09/18/18 14:50 Pulse Ox 91 09/18/18 14:50 Constitutional: WD/WN, vitals as above (lying completely flat in bed) Eyes: PERRL, conjunctivae normal, anicteric sclerae ENMT: Ears: no hearing impairment and no external ear abnormality Neck: trachea midline, no thyromegaly Respiratory: normal respiratory effort Auscultation: + diminished lung sounds (at bases bilat) Cardiovascular: Rate/Rhythm: regular rate and regular rhythm Heart Sounds: no murmur Extremities: + edema (2+ pitting edema of legs to thighs bilat) Gastrointestinal (Abdomen): normal bowel sounds, soft, nontender, no hepatosplenomegaly Musculoskeletal: Extremities: extremities normal to inspection; no cyanosis and no clubbing Skin: no rashes, warm and dry Neurologic: moves all extremities and awake; no focal motor deficits Psychiatric: Orientation: alert and oriented x 3 Affect: + flat affect Results & Data Laboratory Results 09/18/18 09/18/18 09/18/18 Range/Units 16:58 11:38 10:00 WBC (4.8-10.8) K/uL RBC (4.7-6.1) M/uL Hgb (14.0-18.0) g/dL Hct (42-52) % MCV (80-100) fL MCH (25-34) pg MCHC (32-36) g/dL RDW Std Deviation (36.4-46.3) fL RDW Coeff of Clarissa (11.5-14.5) % Plt Count (130-400) K/uL MPV (7.4-10.4) fL Immature Gran % (Auto) % Neut % (Auto) % Lymph % (Auto) % [place] % (Auto) % Eos % (Auto) % Baso % (Auto) % Immature Gran # (Auto) (0.00-0.02) K/uL Neut # (Auto) (1.4-6.5) K/uL Lymph # (Auto) (1.2-3.4) K/uL [place] # (Auto) (0.11-0.59) K/uL Eos # (Auto) (0-0.5) K/uL Baso # (Auto) (0-0.2) K/uL PT 11.2 (9.0-12.0) Seconds INR 1.1 (0.9-1.1) Sodium (136-145) mmol/L Potassium (3.5-5.1) mmol/L Chloride (98-107) mmol/L Carbon Dioxide (21-32) mmol/L Anion Gap (3-11) BUN (7-18) mg/dl Creatinine (0.6-1.4) mg/dl Est Cr Clr Drug Dosing ml/min Est GFR ( Amer) Est GFR (Non-Af Amer) BUN/Creatinine Ratio (10-20) Glucose (70-99) mg/dl POC Glucose 164 H 156 H (70-99) Calcium (8.5-10.1) mg/dl Phosphorus (2.5-4.9) mg/dl Magnesium (1.8-2.4) mg/dl 09/18/18 09/18/18 09/18/18 Range/Units 07:32 07:03 07:03 WBC 6.93 (4.8-10.8) K/uL RBC 3.37 L (4.7-6.1) M/uL Hgb 10.4 L (14.0-18.0) g/dL Hct 33.2 L (42-52) % MCV 98.5 (80-100) fL MCH 30.9 (25-34) pg MCHC 31.3 L (32-36) g/dL RDW Std Deviation 56.4 H (36.4-46.3) fL RDW Coeff of Clarissa 15.6 H (11.5-14.5) % Plt Count 232 (130-400) K/uL MPV 10.6 H (7.4-10.4) fL Immature Gran % (Auto) 0.3 % Neut % (Auto) 73.9 % Lymph % (Auto) 12.1 % [place] % (Auto) 8.8 % Eos % (Auto) 4.6 % Baso % (Auto) 0.3 % Immature Gran # (Auto) 0.02 (0.00-0.02) K/uL Neut # (Auto) 5.12 (1.4-6.5) K/uL Lymph # (Auto) 0.84 L (1.2-3.4) K/uL [place] # (Auto) 0.61 H (0.11-0.59) K/uL Eos # (Auto) 0.32 (0-0.5) K/uL Baso # (Auto) 0.02 (0-0.2) K/uL PT (9.0-12.0) Seconds INR (0.9-1.1) Sodium 144 (136-145) mmol/L Potassium 4.4 D (3.5-5.1) mmol/L Chloride 108 H (98-107) mmol/L Carbon Dioxide 33 H (21-32) mmol/L Anion Gap 4.0 (3-11) BUN 34 H (7-18) mg/dl Creatinine 1.37 (0.6-1.4) mg/dl Est Cr Clr Drug Dosing 61.6 ml/min Est GFR ( Amer) 60.1 Est GFR (Non-Af Amer) 51.9 BUN/Creatinine Ratio 24.5 H (10-20) Glucose 112 H (70-99) mg/dl POC Glucose 104 H (70-99) Calcium 8.8 (8.5-10.1) mg/dl Phosphorus (2.5-4.9) mg/dl Magnesium 2.4 (1.8-2.4) mg/dl 09/17/18 09/17/18 09/17/18 Range/Units 23:46 21:34 20:52 WBC (4.8-10.8) K/uL RBC (4.7-6.1) M/uL Hgb (14.0-18.0) g/dL Hct (42-52) % MCV (80-100) fL MCH (25-34) pg MCHC (32-36) g/dL RDW Std Deviation (36.4-46.3) fL RDW Coeff of Clarissa (11.5-14.5) % Plt Count (130-400) K/uL MPV (7.4-10.4) fL Immature Gran % (Auto) % Neut % (Auto) % Lymph % (Auto) % [place] % (Auto) % Eos % (Auto) % Baso % (Auto) % Immature Gran # (Auto) (0.00-0.02) K/uL Neut # (Auto) (1.4-6.5) K/uL Lymph # (Auto) (1.2-3.4) K/uL [place] # (Auto) (0.11-0.59) K/uL Eos # (Auto) (0-0.5) K/uL Baso # (Auto) (0-0.2) K/uL PT (9.0-12.0) Seconds INR (0.9-1.1) Sodium (136-145) mmol/L Potassium (3.5-5.1) mmol/L Chloride (98-107) mmol/L Carbon Dioxide (21-32) mmol/L Anion Gap (3-11) BUN (7-18) mg/dl Creatinine (0.6-1.4) mg/dl Est Cr Clr Drug Dosing ml/min Est GFR ( Amer) Est GFR (Non-Af Amer) BUN/Creatinine Ratio (10-20) Glucose (70-99) mg/dl POC Glucose 203 H 121 H 62 L* (70-99) Calcium (8.5-10.1) mg/dl Phosphorus (2.5-4.9) mg/dl Magnesium (1.8-2.4) mg/dl 09/17/18 09/17/18 09/17/18 Range/Units 20:50 16:04 16:04 WBC (4.8-10.8) K/uL RBC (4.7-6.1) M/uL Hgb (14.0-18.0) g/dL Hct (42-52) % MCV (80-100) fL MCH (25-34) pg MCHC (32-36) g/dL RDW Std Deviation (36.4-46.3) fL RDW Coeff of Clarissa (11.5-14.5) % Plt Count (130-400) K/uL MPV (7.4-10.4) fL Immature Gran % (Auto) % Neut % (Auto) % Lymph % (Auto) % [place] % (Auto) % Eos % (Auto) % Baso % (Auto) % Immature Gran # (Auto) (0.00-0.02) K/uL Neut # (Auto) (1.4-6.5) K/uL Lymph # (Auto) (1.2-3.4) K/uL [place] # (Auto) (0.11-0.59) K/uL Eos # (Auto) (0-0.5) K/uL Baso # (Auto) (0-0.2) K/uL PT (9.0-12.0) Seconds INR (0.9-1.1) Sodium (136-145) mmol/L Potassium (3.5-5.1) mmol/L Chloride (98-107) mmol/L Carbon Dioxide (21-32) mmol/L Anion Gap (3-11) BUN (7-18) mg/dl Creatinine (0.6-1.4) mg/dl Est Cr Clr Drug Dosing ml/min Est GFR ( Amer) Est GFR (Non-Af Amer) BUN/Creatinine Ratio (10-20) Glucose (70-99) mg/dl POC Glucose 68 L* (70-99) Calcium (8.5-10.1) mg/dl Phosphorus Cancelled 3.4 (2.5-4.9) mg/dl Magnesium (1.8-2.4) mg/dl (1) CHF (congestive heart failure) Heart failure chronicity: chronic Heart failure type: unspecified Qualified Code(s): I50.9 - Heart failure, unspecified (2) Diabetes type 2, uncontrolled Glycemic state: with hypoglycemia Coma presence: without coma Qualified Code(s): E11.649 - Type 2 diabetes mellitus with hypoglycemia without coma (3) BPH (benign prostatic hyperplasia) Lower urinary tract symptom presence: symptoms absent Qualified Code(s): N40.0 - Benign prostatic hyperplasia without lower urinary tract symptoms
[2018-09-18] MEDS ORDERED: INSULIN GLARGINE SOLOSTAR 100 UNITS/ML 3 ML PEN SC SCH (21:00)
[2018-09-19 07:45] LABS: Basophils # (auto) 0.02 K/uL (0-0.2); Basophils % (auto) 0.3 %; Eosinophils # (auto) 0.25 K/uL (0-0.5); Eosinophils % (auto) 3.4 %; Hematocrit (blood only) 31.6 % (42-52); Hemoglobin 9.9 g/dL (14.0-18.0); Immature Granulocytes # (auto) 0.03 K/uL (0.00-0.02); Immature Granulocytes % (auto) 0.4 %; Lymphocytes # (auto) 0.84 K/uL (1.2-3.4); Lymphocytes % (auto) 11.4 %; Mean Corpuscular Hgb Conc 31.3 g/dL (32-36); Mean Corpuscular Volume 97.5 fL (80-100); Mean Platelet Volume 10.7 fL (7.4-10.4); Monocytes # (auto) 0.69 K/uL (0.11-0.59); Monocytes % (auto) 9.4 %; Neutrophils # (auto) 5.54 K/uL (1.4-6.5); Neutrophils % (auto) 75.1 %; Platelet Count 221 K/uL (130-400); RDW Coefficient of Variation 15.4 % (11.5-14.5); RDW Standard Deviation 55.3 fL (36.4-46.3); Red Blood Count 3.24 M/uL (4.7-6.1); White Blood Count 7.37 K/uL (4.8-10.8)
[2018-09-19] MEDS: FOLIC ACID 1 MG TAB PO SCH (08:12)
[2018-09-19] MEDS: CHOLECALCIFEROL 1,000 UNITS TAB PO SCH (08:13)
[2018-09-19] MEDS: DOCUSATE SODIUM 100 MG CAP PO SCH ×2 (08:13→20:50)
[2018-09-19] MEDS: METOPROLOL SUCC 50MG EXT REL TAB PO SCH (08:13)
[2018-09-19] MEDS: CEROVITE ADV FORMULA TAB PO SCH (08:13)
[2018-09-19] MEDS: CYANOCOBALAMIN 500 MCG TABLET (VITAMIN B-12) PO SCH (08:13)
[2018-09-19] MEDS: CLOPIDOGREL BISULFATE 75 MG TAB PO SCH (08:13)
[2018-09-19] MEDS: INSULIN ASPART 100 UNITS/ML 3 ML PEN SC SCH ×4 (08:14→20:54)
[2018-09-19] MEDS: LISINOPRIL 2.5 MG TAB PO SCH (08:14)
[2018-09-19] MEDS: ASPIRIN 81 MG ECTAB PO SCH (08:14)
[2018-09-19] MEDS: MAGNESIUM OXIDE 400 MG TAB PO SCH (08:14)
[2018-09-19 08:19] LABS: BUN Creatinine Ratio 22.5 (10-20); Calcium 8.5 mg/dl (8.5-10.1); Creatinine Clr Calc Pharmacy 61.2 ml/min; Est GFR (African American) 59.6; Est GFR (Non-African American) 51.4; Magnesium 2.2 mg/dl (1.8-2.4)
[2018-09-19 09:16] LABS: Folate (Folic Acid) > 24.00 ng/ml (>5.38); Vitamin B12 997 pg/ml (211-911)
[2018-09-19] MEDS: FUROSEMIDE 40 MG in SYRINGE 0 ML IV SCH ×2 (09:20→17:27)
[2018-09-19] MEDS: ENOXAPARIN INJ 40 MG/0.4 ML SYR SQ SCH (13:00)
[2018-09-19] MEDS: ALBUT/IPRATROP 3MG/0.5MG NEB 3 ML VIAL INH PRN (13:10)
--- NOTE | 2018-09-19 19:54 | Hospitalist Progress Note ---
Date of Service September 19, 2018 Assessment & Plan (1) CHF (congestive heart failure): Acute on chronic diastolic CHF. Last ECHO with normal EF improved from previous of LVEF 30%. Patient presents with orthopnea, progressive edema, weight gain, pulmonary congestion and JVD. Last echo performed 09/07/18 with preserved EF. ?IVF during previous hospital stay, lasix was on hold as well due to declining renal function. Does have some hypoxia has improved since admission and is without overt respiratory distress. Now clinically much improved. Weight is down 3 kg from yesterday but still appears edematous Renal function holding steady * continue IV lasix 40mg bid * Monitor strict I/O's, daily weights, low-sodium diet * Continue fluid restriction 1500 mL's per day * follow BMP to monitor electrolytes and renal function with diuresis * Continue home Metoprolol and Lisinopril (2) Hypoxia: This is secondary to acute exacerbation of CHF. With bilateral pleural effusions and evidence of pulmonary edema on chest x-ray Remains on supplemental O2 * Continue supplemental O2 as needed and wean to keep pulse ox greater than 90% * Continue diuresis and CHF management as above (3) Diabetes type 2, uncontrolled: Patient with history of DM on insulin therapy. Poorly controlled, FlI5M=86.4 in August 2018. Hypoglycemic here on admission, now improved and hyperglycemic at times * Increase Lantus to 12 units qhs (home dose 12 units bid but questionable compliance) * Lower insulin sliding scale ranged 140 and lower correction factor to 20, increase carb ratio to 1-8 (4) Stage III pressure ulcer of left heel: Covered. No evidence of infection * Wound assessment, consult if needed * Offload heels (5) BPH (benign prostatic hyperplasia): Chronic, with history of recurrent UTIs. No evidence of UTI at this time * Continue Tamsulosin 0.4mg po daily (6) Chronic kidney disease, stage III (moderate): Patient near baseline renal function. Adequate UOP in response to Lasix Creatinine stable today 1.38 * Monitor BUN, Cr, electrolytes and UOP * Avoid nephrotoxic agents * Renal dosing where appropriate (7) Hyperlipidemia: Chronic * Continue Atorvastatin 40mg po daily (8) CAD (coronary artery disease): Stable. No CP. No EKG evidence of ischemia * Continue ASA, Plavix, Atorvastatin, Metoprolol and Lisinopril (9) Hypertension: BP stable at present -continue lisinopril, metoprolol F/E/N - continue home magnesium, folic acid and vitamin B12, CC/low Na/heart healthydiet as tolerated. Continue home bowel regimen, enema/Senna (10) Macrocytic anemia: hgb 10 range, MCV 100, is on folate and B12 po B12 level here normal at 688, folate level 9.5, TSH mildly elevated at 5.75 -Recommend following TSH again as an outpatient in 4 weeks (11) PAD (peripheral artery disease): with 70-99% stenosis left distal SFA as per recent arterial studies, with nonhealing left heel ulcer -is supposed to be following up with Dr. Aden for possible intervention? (12) DVT prophylaxis: SQ Lovenox Dispo-remain on tele PT/OT evals ordered but not done yet- will determine if she needs to go back to rehab or not upon discharge Subjective Patient denies any shortness of breath or chest pain. Denies lightheadedness. He is ambulating in the room and out of bed to chair. RN reports he has been urinating in the toilet and flushing and refuses to [facility] to [facility]. He is agreeable to urinating in a hat. He has lost a significant amount of weight though with his diuresis. When asked if he was feeling depressed, he shouted at me "no! I am just sleeping!" Telemetry with normal sinus rhythm with rates in the 90s, some PVCs and bigeminy overnight Review of Systems All systems reviewed & are unremarkable except as noted in HPI & below Physical Exam Vital Signs (Past 24 Hours): Last Vital Signs Temp 36.2 C L 09/19/18 19:07 Pulse 88 09/19/18 19:07 Resp 22 09/19/18 19:07 BP 136/73 09/19/18 19:07 Pulse Ox 94 09/19/18 19:07 Constitutional: WD/WN, vitals as above (lying completely flat in bed) Eyes: PERRL, conjunctivae normal, anicteric sclerae ENMT: Ears: no hearing impairment and no external ear abnormality Neck: trachea midline, no thyromegaly Respiratory: normal respiratory effort Auscultation: + diminished lung sounds (at bases bilat) Cardiovascular: Rate/Rhythm: regular rate and regular rhythm Heart Sounds: no murmur Extremities: + edema (2+ pitting edema of legs to thighs bilat) Gastrointestinal (Abdomen): normal bowel sounds, soft, nontender, no hepatosplenomegaly Musculoskeletal: Extremities: extremities normal to inspection; no cyanosis and no clubbing Skin: no rashes, warm and dry Neurologic: moves all extremities and awake; no focal motor deficits Psychiatric: Orientation: alert and oriented x 3 Affect: + flat affect Results & Data Laboratory Results 09/19/18 09/19/18 09/19/18 Range/Units 16:23 11:32 07:25 WBC (4.8-10.8) K/uL RBC (4.7-6.1) M/uL Hgb (14.0-18.0) g/dL Hct (42-52) % MCV (80-100) fL MCH (25-34) pg MCHC (32-36) g/dL RDW Std Deviation (36.4-46.3) fL RDW Coeff of Clarissa (11.5-14.5) % Plt Count (130-400) K/uL MPV (7.4-10.4) fL Immature Gran % (Auto) % Neut % (Auto) % Lymph % (Auto) % [place] % (Auto) % Eos % (Auto) % Baso % (Auto) % Immature Gran # (Auto) (0.00-0.02) K/uL Neut # (Auto) (1.4-6.5) K/uL Lymph # (Auto) (1.2-3.4) K/uL [place] # (Auto) (0.11-0.59) K/uL Eos # (Auto) (0-0.5) K/uL Baso # (Auto) (0-0.2) K/uL Sodium (136-145) mmol/L Potassium (3.5-5.1) mmol/L Chloride (98-107) mmol/L Carbon Dioxide (21-32) mmol/L Anion Gap (3-11) BUN (7-18) mg/dl Creatinine (0.6-1.4) mg/dl Est Cr Clr Drug Dosing ml/min Est GFR ( Amer) Est GFR (Non-Af Amer) BUN/Creatinine Ratio (10-20) Glucose (70-99) mg/dl POC Glucose 171 H 179 H 165 H (70-99) Calcium (8.5-10.1) mg/dl Magnesium (1.8-2.4) mg/dl Vitamin B12 (211-911) pg/ml Folate (>5.38) ng/ml TSH (0.300-4.500) uIu/ml 09/19/18 09/19/18 09/19/18 Range/Units 07:20 07:20 07:20 WBC 7.37 (4.8-10.8) K/uL RBC 3.24 L (4.7-6.1) M/uL Hgb 9.9 L (14.0-18.0) g/dL Hct 31.6 L (42-52) % MCV 97.5 (80-100) fL MCH 30.6 (25-34) pg MCHC 31.3 L (32-36) g/dL RDW Std Deviation 55.3 H (36.4-46.3) fL RDW Coeff of Clarissa 15.4 H (11.5-14.5) % Plt Count 221 (130-400) K/uL MPV 10.7 H (7.4-10.4) fL Immature Gran % (Auto) 0.4 % Neut % (Auto) 75.1 % Lymph % (Auto) 11.4 % [place] % (Auto) 9.4 % Eos % (Auto) 3.4 % Baso % (Auto) 0.3 % Immature Gran # (Auto) 0.03 H (0.00-0.02) K/uL Neut # (Auto) 5.54 (1.4-6.5) K/uL Lymph # (Auto) 0.84 L (1.2-3.4) K/uL [place] # (Auto) 0.69 H (0.11-0.59) K/uL Eos # (Auto) 0.25 (0-0.5) K/uL Baso # (Auto) 0.02 (0-0.2) K/uL Sodium 142 (136-145) mmol/L Potassium 4.0 (3.5-5.1) mmol/L Chloride 104 (98-107) mmol/L Carbon Dioxide 34 H (21-32) mmol/L Anion Gap 4.0 (3-11) BUN 31 H (7-18) mg/dl Creatinine 1.38 (0.6-1.4) mg/dl Est Cr Clr Drug Dosing 61.2 ml/min Est GFR ( Amer) 59.6 Est GFR (Non-Af Amer) 51.4 BUN/Creatinine Ratio 22.5 H (10-20) Glucose 177 H (70-99) mg/dl POC Glucose (70-99) Calcium 8.5 (8.5-10.1) mg/dl Magnesium 2.2 (1.8-2.4) mg/dl Vitamin B12 997 H (211-911) pg/ml Folate > 24.00 (>5.38) ng/ml TSH 4.170 (0.300-4.500) uIu/ml 09/18/18 Range/Units 20:19 WBC (4.8-10.8) K/uL RBC (4.7-6.1) M/uL Hgb (14.0-18.0) g/dL Hct (42-52) % MCV (80-100) fL MCH (25-34) pg MCHC (32-36) g/dL RDW Std Deviation (36.4-46.3) fL RDW Coeff of Clarissa (11.5-14.5) % Plt Count (130-400) K/uL MPV (7.4-10.4) fL Immature Gran % (Auto) % Neut % (Auto) % Lymph % (Auto) % [place] % (Auto) % Eos % (Auto) % Baso % (Auto) % Immature Gran # (Auto) (0.00-0.02) K/uL Neut # (Auto) (1.4-6.5) K/uL Lymph # (Auto) (1.2-3.4) K/uL [place] # (Auto) (0.11-0.59) K/uL Eos # (Auto) (0-0.5) K/uL Baso # (Auto) (0-0.2) K/uL Sodium (136-145) mmol/L Potassium (3.5-5.1) mmol/L Chloride (98-107) mmol/L Carbon Dioxide (21-32) mmol/L Anion Gap (3-11) BUN (7-18) mg/dl Creatinine (0.6-1.4) mg/dl Est Cr Clr Drug Dosing ml/min Est GFR ( Amer) Est GFR (Non-Af Amer) BUN/Creatinine Ratio (10-20) Glucose (70-99) mg/dl POC Glucose 190 H (70-99) Calcium (8.5-10.1) mg/dl Magnesium (1.8-2.4) mg/dl Vitamin B12 (211-911) pg/ml Folate (>5.38) ng/ml TSH (0.300-4.500) uIu/ml (1) CHF (congestive heart failure) Heart failure chronicity: chronic Heart failure type: unspecified Qualified Code(s): I50.9 - Heart failure, unspecified (2) Diabetes type 2, uncontrolled Glycemic state: with hypoglycemia Coma presence: without coma Qualified Code(s): E11.649 - Type 2 diabetes mellitus with hypoglycemia without coma (3) BPH (benign prostatic hyperplasia) Lower urinary tract symptom presence: symptoms absent Qualified Code(s): N40.0 - Benign prostatic hyperplasia without lower urinary tract symptoms
[2018-09-19] MEDS: ATORVASTATIN 40 MG TAB PO SCH (20:50)
[2018-09-19] MEDS: TAMSULOSIN HCL 0.4 MG CAP PO SCH (20:50)
[2018-09-19] MEDS: INSULIN GLARGINE SOLOSTAR 100 UNITS/ML 3 ML PEN SC SCH (20:54)
[2018-09-20 08:01] LABS: BUN Creatinine Ratio 23.8 (10-20); Calcium 8.5 mg/dl (8.5-10.1); Creatinine Clr Calc Pharmacy 57.8 ml/min; Est GFR (African American) 55.7; Potassium 3.9 mmol/L (3.5-5.1)
[2018-09-20] MEDS: INSULIN ASPART 100 UNITS/ML 3 ML PEN SC SCH ×4 (08:45→21:23)
[2018-09-20] MEDS: DOCUSATE SODIUM 100 MG CAP PO SCH ×2 (08:46→21:55)
[2018-09-20] MEDS: CHOLECALCIFEROL 1,000 UNITS TAB PO SCH (08:47)
[2018-09-20] MEDS: CEROVITE ADV FORMULA TAB PO SCH (08:47)
[2018-09-20] MEDS: CYANOCOBALAMIN 500 MCG TABLET (VITAMIN B-12) PO SCH (08:47)
[2018-09-20] MEDS: CLOPIDOGREL BISULFATE 75 MG TAB PO SCH (08:47)
[2018-09-20] MEDS: ASPIRIN 81 MG ECTAB PO SCH (08:48)
[2018-09-20] MEDS: FUROSEMIDE 40 MG in SYRINGE 0 ML IV SCH ×2 (08:48→17:53)
[2018-09-20] MEDS: LISINOPRIL 2.5 MG TAB PO SCH (08:48)
[2018-09-20] MEDS: MAGNESIUM OXIDE 400 MG TAB PO SCH (08:49)
[2018-09-20] MEDS: FOLIC ACID 1 MG TAB PO SCH (08:49)
[2018-09-20] MEDS: METOPROLOL SUCC 50MG EXT REL TAB PO SCH (08:57)
--- NOTE | 2018-09-20 14:36 | Hospitalist Progress Note ---
Date of Service September 20, 2018 Assessment & Plan (1) CHF (congestive heart failure): - Acute on Chronic Diastolic CHF - most recent echo with preserved EF which is improved from previous of 30% -- Possibly from recent admission with MACY/fluids administration - Improving symptoms and weaning from O2 - still slightly edematous; I&Os inaccurate due to patient flushing urine prior to measurements - Renal function remains stable and will monitor - Continue Lasix 40 mg IV BID; monitor I&Os, daily weights, and low-sodium diet/fluid restriction of 1500 mLs - Metoprolol 50 mg daily and Lisinopril 2.5 mg daily Present on Admission?: Yes (2) Hypoxia: - Related to acute CHF exacerbation/bilateral pleural effusion/pulmonary edema - Wean O2 for pulse ox greater than 90%; management as above Present on Admission?: Yes (3) Diabetes type 2, uncontrolled: - A1c 12.4 - Lantus 12 units HS and contiue SSI Present on Admission?: Yes (4) Stage III pressure ulcer of left heel: - Continue to monitor; no signs of infection - Continue measures to prevent further breakdown Present on Admission?: Yes (5) BPH (benign prostatic hyperplasia): - Continue Tamsulosin 0.4mg po daily Present on Admission?: Yes (6) Chronic kidney disease, stage III (moderate): - Cr currently at 1.46 - baseline appears around 1.2-1.5 - Continue to monitor in setting of diuresis Present on Admission?: Yes (7) Hyperlipidemia: - Continue Atorvastatin 40 mg daily Present on Admission?: Yes (8) CAD (coronary artery disease): - STABLE - no ACS complaints; no ischemic findings on initial EKG - ASA 81 mg daiy; Plavix 75 mg daily; BB/ACEI/Statin Present on Admission?: Yes (9) Hypertension: - STABLE - Continue Lisinopril and Metoprolol Present on Admission?: Yes (10) Macrocytic anemia: - Continue folate and B12 supplementation - TSH mildly elevated and recommend recheck as outpatient in 4 weeks Present on Admission?: Yes (11) PAD (peripheral artery disease): - 70-99% stenosis of L distal SFA with non-healing L heel ulcer - Follows with Dr. Aden for possible intervention Present on Admission?: Yes (12) DVT prophylaxis: - Lovenox Disposition: PT/OT ordered; patient was due to D/C from [facility] around time of admission and is anticipating returning home on D/C - case management following - continue diuresis Subjective Reports his breathing is much better since admission. Still requiring supplemental O2 but weaning off well. Laying flat in bed without respiratory distress. Feels that his legs are still edematous but improving. Not very conversant but pleasant and cooperative. Verbalizes no complaints. States he was due to be discharged from [facility] around the time of admission here. Physical Exam Vital Signs (Past 24 Hours): Last Vital Signs Temp 36.6 C 09/20/18 11:10 Pulse 90 09/20/18 11:10 Resp 18 09/20/18 11:10 BP 123/70 09/20/18 11:10 Pulse Ox 96 09/20/18 11:10 Constitutional: WD/WN, vitals as above (lying completely flat in bed) Eyes: PERRL, conjunctivae normal, anicteric sclerae ENMT: Ears: no hearing impairment and no external ear abnormality Neck: trachea midline, no thyromegaly Respiratory: normal respiratory effort Auscultation: + diminished lung sounds (at bases bilat) Cardiovascular: Rate/Rhythm: regular rate and regular rhythm Heart Sounds: no murmur Extremities: + edema (2+ pitting edema of legs to thighs bilat) Gastrointestinal (Abdomen): normal bowel sounds, soft, nontender, no hepatosplenomegaly Musculoskeletal: Extremities: extremities normal to inspection; no cyanosis and no clubbing Skin: no rashes, warm and dry Neurologic: moves all extremities and awake; no focal motor deficits Psychiatric: Orientation: alert and oriented x 3 Affect: + flat affect (1) BPH (benign prostatic hyperplasia) Lower urinary tract symptom presence: symptoms absent Qualified Code(s): N40.0 - Benign prostatic hyperplasia without lower urinary tract symptoms (2) CHF (congestive heart failure) Heart failure chronicity: chronic Heart failure type: unspecified Qualified Code(s): I50.9 - Heart failure, unspecified (3) Diabetes type 2, uncontrolled Coma presence: without coma Glycemic state: with hypoglycemia Qualified Code(s): E11.649 - Type 2 diabetes mellitus with hypoglycemia without coma
[2018-09-20] MEDS: ENOXAPARIN INJ 40 MG/0.4 ML SYR SQ SCH (14:51)
[2018-09-20] MEDS: INSULIN GLARGINE SOLOSTAR 100 UNITS/ML 3 ML PEN SC SCH (21:22)
[2018-09-20] MEDS: TAMSULOSIN HCL 0.4 MG CAP PO SCH (21:23)
[2018-09-20] MEDS: ATORVASTATIN 40 MG TAB PO SCH (21:24)
[2018-09-21] MEDS: DOCUSATE SODIUM 100 MG CAP PO SCH ×2 (07:58→20:50)
[2018-09-21] MEDS: ASPIRIN 81 MG ECTAB PO SCH (07:58)
[2018-09-21] MEDS: FOLIC ACID 1 MG TAB PO SCH (07:58)
[2018-09-21] MEDS: CHOLECALCIFEROL 1,000 UNITS TAB PO SCH (07:59)
[2018-09-21] MEDS: METOPROLOL SUCC 50MG EXT REL TAB PO SCH (07:59)
[2018-09-21] MEDS: MAGNESIUM OXIDE 400 MG TAB PO SCH (07:59)
[2018-09-21] MEDS: LISINOPRIL 2.5 MG TAB PO SCH (07:59)
[2018-09-21] MEDS: INSULIN ASPART 100 UNITS/ML 3 ML PEN SC SCH ×4 (08:07→20:51)
[2018-09-21] MEDS: CEROVITE ADV FORMULA TAB PO SCH (08:35)
[2018-09-21] MEDS: CLOPIDOGREL BISULFATE 75 MG TAB PO SCH (08:35)
[2018-09-21] MEDS: CYANOCOBALAMIN 500 MCG TABLET (VITAMIN B-12) PO SCH (08:35)
[2018-09-21] MEDS: FUROSEMIDE 40 MG in SYRINGE 0 ML IV SCH ×2 (08:36→18:19)
[2018-09-21 08:54] LABS: Hematocrit (blood only) 33.7 % (42-52); Hemoglobin 10.5 g/dL (14.0-18.0); Mean Corpuscular Hgb Conc 31.2 g/dL (32-36); Mean Corpuscular Volume 98.5 fL (80-100); Mean Platelet Volume 10.5 fL (7.4-10.4); Platelet Count 209 K/uL (130-400); RDW Coefficient of Variation 15.5 % (11.5-14.5); RDW Standard Deviation 55.6 fL (36.4-46.3); Red Blood Count 3.42 M/uL (4.7-6.1); White Blood Count 5.73 K/uL (4.8-10.8)
[2018-09-21 09:26] LABS: BUN Creatinine Ratio 26.4 (10-20); Calcium 8.7 mg/dl (8.5-10.1); Creatinine Clr Calc Pharmacy 60.7 ml/min; Est GFR (African American) 59.1; Potassium 3.6 mmol/L (3.5-5.1)
[2018-09-21] MEDS: ENOXAPARIN INJ 40 MG/0.4 ML SYR SQ SCH (14:32)
--- NOTE | 2018-09-21 18:50 | Hospitalist Progress Note ---
Date of Service September 21, 2018 Assessment & Plan (1) CHF (congestive heart failure): - Acute on Chronic Diastolic CHF - most recent echo with preserved EF which is improved from previous of 30% -- Possibly from recent admission with MACY/fluids administration - Improving symptoms and weaning from O2 - still slightly edematous; I&Os inaccurate due to patient flushing urine prior to measurements initially but still at a negative balance -- Currently down 34 lbs since admission - Renal function remains stable and will monitor - Continue Lasix 40 mg IV BID; monitor I&Os, daily weights, and low-sodium diet/fluid restriction of 1500 mLs - Metoprolol 50 mg daily and Lisinopril 2.5 mg daily (2) Hypoxia: - Related to acute CHF exacerbation/bilateral pleural effusion/pulmonary edema - Wean O2 for pulse ox greater than 90%; management as above (3) Diabetes type 2, uncontrolled: - A1c 12.4 - Lantus 12 units HS and continue SSI (4) Stage III pressure ulcer of left heel: - Continue to monitor; no signs of infection - Continue measures to prevent further breakdown (5) BPH (benign prostatic hyperplasia): - Continue Tamsulosin 0.4mg po daily (6) Chronic kidney disease, stage III (moderate): - Cr currently at 1.39 - baseline appears around 1.2-1.5 - Continue to monitor in setting of diuresis (7) Hyperlipidemia: - Continue Atorvastatin 40 mg daily (8) CAD (coronary artery disease): - STABLE - no ACS complaints; no ischemic findings on initial EKG - ASA 81 mg daiy; Plavix 75 mg daily; BB/ACEI/Statin (9) Hypertension: - STABLE - Continue Lisinopril and Metoprolol (10) Macrocytic anemia: - Continue folate and B12 supplementation - TSH mildly elevated and recommend recheck as outpatient in 4 weeks (11) PAD (peripheral artery disease): - 70-99% stenosis of L distal SFA with non-healing L heel ulcer - Follows with Dr. Aden for possible intervention (12) DVT prophylaxis: - Lovenox Disposition: PT/OT ordered; patient was due to D/C from [facility] around time of admission and is anticipating returning home on D/C - case management following - continue diuresis hopeful D/C next 1-2 days Subjective Reports breathing is improving and some improvement in extremity edema. Verbalizes no complaints at this time. Is having some hematuria and will monitor. Constitutional: no fever and no chills Respiratory: + dyspnea on exertion; no cough and no dyspnea Cardiovascular: no chest pain Gastrointestinal: no abdominal pain, no nausea, no vomiting, no constipation and no diarrhea/loose stools Genitourinary (Male): + hematuria; no dysuria Integumentary: + non-healing lesions Physical Exam Vital Signs (Past 24 Hours): Last Vital Signs Temp 36.5 C 09/21/18 14:55 Pulse 76 09/21/18 14:55 Resp 18 09/21/18 14:55 BP 108/71 09/21/18 14:55 Pulse Ox 92 09/21/18 14:55 Constitutional: WD/WN, vitals as above (lying completely flat in bed) Eyes: + anicteric sclerae ENMT: Ears: no hearing impairment Neck: trachea midline Respiratory: normal respiratory effort Auscultation: + diminished lung sounds (at bases bilat) Cardiovascular: Rate/Rhythm: regular rate and regular rhythm Heart Sounds: no murmur Vessels: + JVD Extremities: + edema (2+ pitting edema of legs to about knees) Gastrointestinal (Abdomen): Inspection/Auscultation: normal bowel sounds Percussion/Palpation: abdomen soft; abdomen nontender Musculoskeletal: Extremities: no cyanosis and no clubbing Skin: + lesion (chronic lesion due to PVD) Neurologic: moves all extremities and awake; no focal motor deficits Psychiatric: Orientation: alert and oriented x 3 Affect: + flat affect (1) CHF (congestive heart failure) Heart failure chronicity: chronic Heart failure type: unspecified Qualified Code(s): I50.9 - Heart failure, unspecified (2) Diabetes type 2, uncontrolled Glycemic state: with hypoglycemia Coma presence: without coma Qualified Code(s): E11.649 - Type 2 diabetes mellitus with hypoglycemia without coma (3) BPH (benign prostatic hyperplasia) Lower urinary tract symptom presence: symptoms absent Qualified Code(s): N40.0 - Benign prostatic hyperplasia without lower urinary tract symptoms
[2018-09-21] MEDS: TAMSULOSIN HCL 0.4 MG CAP PO SCH (20:50)
[2018-09-21] MEDS: INSULIN GLARGINE SOLOSTAR 100 UNITS/ML 3 ML PEN SC SCH (20:51)
[2018-09-21] MEDS: ATORVASTATIN 40 MG TAB PO SCH (20:51)
[2018-09-22 07:39] LABS: Hematocrit (blood only) 33.7 % (42-52); Hemoglobin 10.4 g/dL (14.0-18.0); Mean Corpuscular Hgb Conc 30.9 g/dL (32-36); Mean Corpuscular Volume 98.5 fL (80-100); Mean Platelet Volume 10.5 fL (7.4-10.4); Platelet Count 228 K/uL (130-400); RDW Coefficient of Variation 15.4 % (11.5-14.5); RDW Standard Deviation 55.3 fL (36.4-46.3); Red Blood Count 3.42 M/uL (4.7-6.1); White Blood Count 6.22 K/uL (4.8-10.8)
[2018-09-22 08:07] LABS: BUN Creatinine Ratio 30.4 (10-20); Calcium 8.7 mg/dl (8.5-10.1); Creatinine Clr Calc Pharmacy 56.3 ml/min; Est GFR (African American) 53.9; Est GFR (Non-African American) 46.5
[2018-09-22] MEDS: CYANOCOBALAMIN 500 MCG TABLET (VITAMIN B-12) PO SCH (08:16)
[2018-09-22] MEDS: CHOLECALCIFEROL 1,000 UNITS TAB PO SCH (08:16)
[2018-09-22] MEDS: METOPROLOL SUCC 50MG EXT REL TAB PO SCH (08:16)
[2018-09-22] MEDS: CEROVITE ADV FORMULA TAB PO SCH (08:16)
[2018-09-22] MEDS: DOCUSATE SODIUM 100 MG CAP PO SCH ×2 (08:16→20:53)
[2018-09-22] MEDS: CLOPIDOGREL BISULFATE 75 MG TAB PO SCH (08:16)
[2018-09-22] MEDS: LISINOPRIL 2.5 MG TAB PO SCH (08:17)
[2018-09-22] MEDS: FOLIC ACID 1 MG TAB PO SCH (08:17)
[2018-09-22] MEDS: FUROSEMIDE 40 MG in SYRINGE 0 ML IV SCH ×2 (08:17→17:11)
[2018-09-22] MEDS: MAGNESIUM OXIDE 400 MG TAB PO SCH (08:18)
[2018-09-22] MEDS: ASPIRIN 81 MG ECTAB PO SCH (08:18)
[2018-09-22] MEDS: INSULIN ASPART 100 UNITS/ML 3 ML PEN SC SCH ×5 (08:27→22:14)
--- NOTE | 2018-09-22 16:13 | Hospitalist Progress Note ---
Date of Service September 22, 2018 Assessment & Plan (1) CHF (congestive heart failure): - Acute on Chronic Diastolic CHF - most recent echo with preserved EF which is improved from previous of 30% -- Possibly from recent admission with MACY/fluids administration - Improving symptoms and weaning from O2 - still slightly edematous; I&Os inaccurate due to patient flushing urine prior to measurements initially but still at a negative balance -- Currently down 34 lbs since admission - Renal function remains stable and will monitor - Continue Lasix 40 mg IV BID; monitor I&Os, daily weights, and low-sodium diet/fluid restriction of 1500 mLs - Metoprolol 50 mg daily and Lisinopril 2.5 mg daily (2) Hypoxia: - Related to acute CHF exacerbation/bilateral pleural effusion/pulmonary edema - Wean O2 for pulse ox greater than 90%; management as above (3) Diabetes type 2, uncontrolled: - A1c 12.4 - Lantus 12 units HS and continue SSI (4) Stage III pressure ulcer of left heel: - Continue to monitor; no signs of infection - Continue measures to prevent further breakdown (5) BPH (benign prostatic hyperplasia): - Continue Tamsulosin 0.4mg po daily (6) Chronic kidney disease, stage III (moderate): - Cr currently at 1.5 - baseline appears around 1.2-1.5 - Continue to monitor in setting of diuresis (7) Hyperlipidemia: - Continue Atorvastatin 40 mg daily (8) CAD (coronary artery disease): - STABLE - no ACS complaints; no ischemic findings on initial EKG - ASA 81 mg daiy; Plavix 75 mg daily; BB/ACEI/Statin (9) Hypertension: - STABLE - Continue Lisinopril and Metoprolol (10) Macrocytic anemia: - Continue folate and B12 supplementation - TSH mildly elevated and recommend recheck as outpatient in 4 weeks (11) PAD (peripheral artery disease): - 70-99% stenosis of L distal SFA with non-healing L heel ulcer - Follows with Dr. Aden for possible intervention (12) DVT prophylaxis: - Lovenox Disposition: PT/OT ordered; patient was due to D/C from [facility] around time of admission and is anticipating returning home on D/C - case management following - continue diuresis hopeful D/C next 1-2 days Subjective Reports feeling about the same. Breathing is stable and continuing to wean down. Still some hematuria but seems to be improving. Tolerating diet without issue. Denies any complaints. Plans on returning home on D/C Constitutional: no fever and no chills Respiratory: + dyspnea on exertion; no cough and no dyspnea Cardiovascular: + edema; no chest pain and no lightheadedness Gastrointestinal: no abdominal pain, no nausea, no vomiting, no constipation and no diarrhea/loose stools Genitourinary (Male): + hematuria; no dysuria Integumentary: + non-healing lesions Physical Exam Vital Signs (Past 24 Hours): Last Vital Signs Temp 36.8 C 09/22/18 08:00 Pulse 87 09/22/18 08:00 Resp 16 09/22/18 08:00 BP 128/72 09/22/18 08:00 Pulse Ox 92 09/22/18 08:00 Constitutional: WD/WN, vitals as above Eyes: + anicteric sclerae ENMT: Ears: no hearing impairment Neck: trachea midline Respiratory: normal respiratory effort Auscultation: + diminished lung sounds (at bases bilat) Cardiovascular: Rate/Rhythm: regular rate and regular rhythm Heart Sounds: no murmur Vessels: + JVD Extremities: + edema (improving - 1+) Gastrointestinal (Abdomen): Inspection/Auscultation: normal bowel sounds Percussion/Palpation: abdomen soft; abdomen nontender Musculoskeletal: Extremities: no cyanosis and no clubbing Skin: no rashes, warm and dry + lesion (chronic lesion due to PVD) Neurologic: moves all extremities and awake; no focal motor deficits Psychiatric: Orientation: alert and oriented x 3 Affect: + flat affect (1) BPH (benign prostatic hyperplasia) Lower urinary tract symptom presence: symptoms absent Qualified Code(s): N40.0 - Benign prostatic hyperplasia without lower urinary tract symptoms (2) CHF (congestive heart failure) Heart failure chronicity: chronic Heart failure type: unspecified Qualified Code(s): I50.9 - Heart failure, unspecified (3) Diabetes type 2, uncontrolled Coma presence: without coma Glycemic state: with hypoglycemia Qualified Code(s): E11.649 - Type 2 diabetes mellitus with hypoglycemia without coma
[2018-09-22] MEDS ORDERED: SODIUM CHLORIDE 0.65% NA SOLN 45 ML (OCEAN) PRN (19:42)
[2018-09-22 19:50] LABS: Appearance Urine Clear (Clear); Bacteria Urine Automated 1+ (Negative); Bilirubin Urine Negative (Negative); Blood Urine 1+ (Negative); Color Urine Yellow; Epithelial Cell Urine Auto 20-30 /lpf (0-5); Glucose Urine UA Negative (Negative); Ketones Urine Negative (Negative); Leukocyte Esterase Urine 1+ (Negative); Nitrite Urine Negative (Negative); Protein Urine Negative (Negative); Specific Gravity Urine 1.014 (1.000-1.030); Urobilinogen Urine Negative (Negative); pH Urine 6.5 (4.5-7.5)
[2018-09-22] MEDS: ATORVASTATIN 40 MG TAB PO SCH (20:53)
[2018-09-22] MEDS: TAMSULOSIN HCL 0.4 MG CAP PO SCH (20:53)
[2018-09-22] MEDS: INSULIN GLARGINE SOLOSTAR 100 UNITS/ML 3 ML PEN SC SCH (20:54)
[2018-09-23] MEDS: CYANOCOBALAMIN 500 MCG TABLET (VITAMIN B-12) PO SCH (08:48)
[2018-09-23] MEDS: DOCUSATE SODIUM 100 MG CAP PO SCH ×2 (08:48→21:16)
[2018-09-23] MEDS: CLOPIDOGREL BISULFATE 75 MG TAB PO SCH (08:48)
[2018-09-23] MEDS: CHOLECALCIFEROL 1,000 UNITS TAB PO SCH (08:48)
[2018-09-23] MEDS: ASPIRIN 81 MG ECTAB PO SCH (08:48)
[2018-09-23] MEDS: CEROVITE ADV FORMULA TAB PO SCH (08:49)
[2018-09-23] MEDS: LISINOPRIL 2.5 MG TAB PO SCH (08:49)
[2018-09-23] MEDS: FOLIC ACID 1 MG TAB PO SCH (08:49)
[2018-09-23] MEDS: MAGNESIUM OXIDE 400 MG TAB PO SCH (08:49)
[2018-09-23] MEDS: METOPROLOL SUCC 50MG EXT REL TAB PO SCH (08:49)
[2018-09-23] MEDS: FUROSEMIDE 40 MG in SYRINGE 0 ML IV SCH ×2 (08:50→17:17)
[2018-09-23] MEDS: INSULIN ASPART 100 UNITS/ML 3 ML PEN SC SCH ×4 (08:52→21:17)
[2018-09-23 08:55] LABS: Hematocrit (blood only) 34.8 % (42-52); Hemoglobin 10.8 g/dL (14.0-18.0); Mean Corpuscular Volume 99.1 fL (80-100); Mean Platelet Volume 10.4 fL (7.4-10.4); Platelet Count 214 K/uL (130-400); RDW Coefficient of Variation 15.4 % (11.5-14.5); RDW Standard Deviation 55.5 fL (36.4-46.3); Red Blood Count 3.51 M/uL (4.7-6.1); White Blood Count 6.12 K/uL (4.8-10.8)
[2018-09-23 09:24] LABS: BUN Creatinine Ratio 34.4 (10-20); Calcium 8.8 mg/dl (8.5-10.1); Est GFR (African American) 57.6; Est GFR (Non-African American) 49.7; Potassium 3.9 mmol/L (3.5-5.1)
[2018-09-23] MEDS: cephALEXin 500 MG CAP PO SCH ×2 (10:34→21:16)
--- NOTE | 2018-09-23 20:49 | Hospitalist Progress Note ---
Date of Service September 23, 2018 Assessment & Plan (1) CHF (congestive heart failure): - Acute on Chronic Diastolic CHF - most recent echo with preserved EF which is improved from previous of 30% -- Possibly from recent admission with MACY/fluids administration - Improving symptoms and weaning from O2 - O2 hasn't been removed due to patient refusal as he state it gives him a "high" - states he ambulates in his room and to the bathroom with removal and feeling at baseline - Renal function remains stable and will convert to oral Lasix in AM and get labs in AM - he is to see Nephrology on thursday but he has already made suggestions that he likely will not go - upon review of records it does not seem like he is chronically on Lasix but does have a waxing and waning issues with fluid and renal compromise - Metoprolol 50 mg daily and Lisinopril 2.5 mg daily (2) Hypoxia: - Related to acute CHF exacerbation/bilateral pleural effusion/pulmonary edema - Wean O2 for pulse ox greater than 90%; management as above (3) Hematuria: - Acute onset but improved quickly - UA with leuks/blood/1+ bacteria with cx pending - does have a H/O UTI - Will treat with Keflex 500 mg BID and monitor Cx Present on Admission?: Yes (4) Diabetes type 2, uncontrolled: - A1c 12.4 - Lantus 12 units HS and continue SSI (5) Stage III pressure ulcer of left heel: - Continue to monitor; no signs of infection - Continue measures to prevent further breakdown (6) BPH (benign prostatic hyperplasia): - Continue Tamsulosin 0.4mg po daily (7) Chronic kidney disease, stage III (moderate): - Cr currently at 1.42 - baseline appears around 1.2-1.5 - Continue to monitor in setting of diuresis (8) Hyperlipidemia: - Continue Atorvastatin 40 mg daily (9) CAD (coronary artery disease): - STABLE - no ACS complaints; no ischemic findings on initial EKG - ASA 81 mg daiy; Plavix 75 mg daily; BB/ACEI/Statin (10) Hypertension: - STABLE - Continue Lisinopril and Metoprolol (11) Macrocytic anemia: - Continue folate and B12 supplementation - TSH mildly elevated and recommend recheck as outpatient in 4 weeks (12) PAD (peripheral artery disease): - 70-99% stenosis of L distal SFA with non-healing L heel ulcer - Follows with Dr. Aden for possible intervention (13) DVT prophylaxis: - Lovenox Disposition: PT/OT ordered; patient was due to D/C from [facility] around time of admission and is anticipating returning home on D/C - case management following - hopeful D/C tomorrow Subjective Patient reports some improvement with his breathing however is almost laying completely flat on all my assessments without respiratory compromise but sometimes reports orthopnea O2 saturations have been stable but he declines to wean. When discussing with patient he states he doesn't need it but it "gives him a high". Reports taking it off to go to the bathroom and doing ok without it. Diuresing well - suspect some inaccuracy with I&O as it reports he took in 2 L recently? Clinically doing a lot better. Not highly motivated. Pleasant and cooperative but minimally conversant. 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 Anticipating possible D/C tomorrow however each day patient seems to ask for an additional day. Reports hematuria is improving Constitutional: no fever and no chills Respiratory: no cough, no dyspnea and no dyspnea on exertion Cardiovascular: no chest pain Gastrointestinal: no abdominal pain, no nausea, no vomiting, no constipation and no diarrhea/loose stools Genitourinary (Male): no dysuria and no hematuria Physical Exam Vital Signs (Past 24 Hours): Last Vital Signs Temp 36.3 C L 09/23/18 19:43 Pulse 79 09/23/18 19:43 Resp 16 09/23/18 19:43 BP 131/75 09/23/18 19:43 Pulse Ox 97 09/23/18 19:43 Constitutional: well developed and well nourished; no acute distress Eyes: + anicteric sclerae ENMT: Ears: no hearing impairment Neck: trachea midline Respiratory: normal respiratory effort, lungs clear to auscultation Auscultation: + diminished lung sounds Cardiovascular: Rate/Rhythm: regular rate and regular rhythm Vessels: no JVD Extremities: no edema Gastrointestinal (Abdomen): Inspection/Auscultation: normal bowel sounds Percussion/Palpation: abdomen soft; abdomen nontender Musculoskeletal: Head/Neck/Chest: normocephalic and head atraumatic Neurologic: moves all extremities Psychiatric: Orientation: alert and oriented x 3 Affect: + flat affect (1) CHF (congestive heart failure) Heart failure chronicity: chronic Heart failure type: unspecified Qualified Code(s): I50.9 - Heart failure, unspecified (2) Diabetes type 2, uncontrolled Glycemic state: with hypoglycemia Coma presence: without coma Qualified Code(s): E11.649 - Type 2 diabetes mellitus with hypoglycemia without coma (3) BPH (benign prostatic hyperplasia) Lower urinary tract symptom presence: symptoms absent Qualified Code(s): N40.0 - Benign prostatic hyperplasia without lower urinary tract symptoms
[2018-09-23] MEDS: TAMSULOSIN HCL 0.4 MG CAP PO SCH (21:16)
[2018-09-23] MEDS: ATORVASTATIN 40 MG TAB PO SCH (21:16)
[2018-09-23] MEDS: INSULIN GLARGINE SOLOSTAR 100 UNITS/ML 3 ML PEN SC SCH (21:17)
[2018-09-24 07:10] LABS: Hematocrit (blood only) 34.2 % (42-52); Hemoglobin 10.7 g/dL (14.0-18.0); Mean Corpuscular Hgb Conc 31.3 g/dL (32-36); Mean Platelet Volume 10.8 fL (7.4-10.4); Platelet Count 230 K/uL (130-400); RDW Coefficient of Variation 15.2 % (11.5-14.5); RDW Standard Deviation 54.2 fL (36.4-46.3); Red Blood Count 3.49 M/uL (4.7-6.1); White Blood Count 5.96 K/uL (4.8-10.8)
[2018-09-24 07:45] LABS: BUN Creatinine Ratio 35.9 (10-20); Calcium 8.5 mg/dl (8.5-10.1); Creatinine Clr Calc Pharmacy 60.1 ml/min; Est GFR (African American) 59.1; Potassium 3.8 mmol/L (3.5-5.1)
[2018-09-24] MEDS: FOLIC ACID 1 MG TAB PO SCH (08:08)
[2018-09-24] MEDS: cephALEXin 500 MG CAP PO SCH ×2 (08:08→20:32)
[2018-09-24] MEDS: ASPIRIN 81 MG ECTAB PO SCH (08:08)
[2018-09-24] MEDS: LISINOPRIL 2.5 MG TAB PO SCH (08:08)
[2018-09-24] MEDS: MAGNESIUM OXIDE 400 MG TAB PO SCH (08:08)
[2018-09-24] MEDS: CLOPIDOGREL BISULFATE 75 MG TAB PO SCH (08:08)
[2018-09-24] MEDS: METOPROLOL SUCC 50MG EXT REL TAB PO SCH (08:08)
[2018-09-24] MEDS: CEROVITE ADV FORMULA TAB PO SCH (08:08)
[2018-09-24] MEDS: CHOLECALCIFEROL 1,000 UNITS TAB PO SCH (08:09)
[2018-09-24] MEDS: DOCUSATE SODIUM 100 MG CAP PO SCH ×2 (08:09→20:32)
[2018-09-24] MEDS: CYANOCOBALAMIN 500 MCG TABLET (VITAMIN B-12) PO SCH (08:09)
[2018-09-24] MEDS: INSULIN ASPART 100 UNITS/ML 3 ML PEN SC SCH ×4 (08:14→21:23)
[2018-09-24] MEDS: FUROSEMIDE 40 MG TAB PO SCH (08:17)
--- NOTE | 2018-09-24 18:10 | Hospitalist Progress Note ---
Date of Service September 24, 2018 Assessment & Plan (1) CHF (congestive heart failure): - Acute on Chronic Diastolic CHF - most recent echo with preserved EF which is improved from previous of 30% -- Possibly from recent admission with MACY/fluids administration - Improving symptoms and weaning from O2 - O2 hasn't been removed due to patient refusal as he state it gives him a "high" - states he ambulates in his room and to the bathroom with removal and feeling at baseline - Converted to Lasix 40 mg daily and he is to see Nephrology on Thursday but he has already made suggestions that he likely will not go - upon review of records it does not seem like he is chronically on Lasix but does have a waxing and waning issues with fluid and renal compromise - Metoprolol 50 mg daily and Lisinopril 2.5 mg daily (2) Hypoxia: - Related to acute CHF exacerbation/bilateral pleural effusion/pulmonary edema - Wean O2 for pulse ox greater than 90%; management as above (3) Hematuria: - Acute onset but improved quickly - UA with leuks/blood/1+ bacteria with cx with multiple organisms - does have a H/O UTI - Will treat with Keflex 500 mg BID and monitor Cx (4) Diabetes type 2, uncontrolled: - A1c 12.4 - Lantus 12 units HS and continue SSI (5) Stage III pressure ulcer of left heel: - Continue to monitor; no signs of infection - Continue measures to prevent further breakdown (6) BPH (benign prostatic hyperplasia): - Continue Tamsulosin 0.4mg po daily (7) Chronic kidney disease, stage III (moderate): - Cr currently at 1.39 - baseline appears around 1.2-1.5 - Continue to monitor in setting of diuresis (8) Hyperlipidemia: - Continue Atorvastatin 40 mg daily (9) CAD (coronary artery disease): - STABLE - no ACS complaints; no ischemic findings on initial EKG - ASA 81 mg daiy; Plavix 75 mg daily; BB/ACEI/Statin (10) Hypertension: - STABLE - Continue Lisinopril and Metoprolol (11) Macrocytic anemia: - Continue folate and B12 supplementation - TSH mildly elevated and recommend recheck as outpatient in 4 weeks (12) PAD (peripheral artery disease): - 70-99% stenosis of L distal SFA with non-healing L heel ulcer - Follows with Dr. Aden for possible intervention (13) DVT prophylaxis: - Lovenox Disposition: Patient was due to D/C from [facility] around time of admission and is anticipating returning home on D/C - case management following - hopeful D/C tomorrow -- Patient may be reluctant to discharge -- Sister called in but patient does not want her updated and states he can talk to her if needed. Per outpatient review there is concern of some cognitive impairment however patient is independent and can recall information provided and reasoning for interventions. He does exhibit higher levels of thinking however would agree that he likely isn't proactive in his health and compliance. However do not see direct signs that he is a harm to himself or cognitively compromised to not make decisions for himself. Subjective Patient reports feeling well today. Laying flat without respiratory compromise. Hasn't noticed further hematuria. Feels that he is still about 10 lbs over his dry weight but did explain this can take a few weeks to fully resolve. Switched to orals and will monitor tolerance. He normally is not on Lasix at home. His sister called yesterday and asked to give her an update. Patient rolled his eyes and stated that she doesn't need to be updated. Discussed plan to discharge home tomorrow. States he normally takes a taxi and that is his plan. Constitutional: no fever and no chills Respiratory: no cough and no dyspnea Cardiovascular: no chest pain Gastrointestinal: no abdominal pain, no nausea, no vomiting, no constipation and no diarrhea/loose stools Genitourinary (Male): no dysuria and no hematuria Physical Exam Vital Signs (Past 24 Hours): Last Vital Signs Temp 36.6 C 09/24/18 15:42 Pulse 82 09/24/18 15:42 Resp 18 09/24/18 15:42 BP 111/64 09/24/18 15:42 Pulse Ox 92 09/24/18 15:42 Constitutional: well developed and well nourished; no acute distress Eyes: + anicteric sclerae ENMT: Ears: no hearing impairment Neck: trachea midline Respiratory: normal respiratory effort, lungs clear to auscultation Auscultation: + diminished lung sounds Cardiovascular: Rate/Rhythm: regular rate and regular rhythm Heart Sounds: no murmur Vessels: no JVD Extremities: no edema Gastrointestinal (Abdomen): Inspection/Auscultation: normal bowel sounds Percussion/Palpation: abdomen soft; abdomen nontender Musculoskeletal: Head/Neck/Chest: normocephalic and head atraumatic Extremities: no cyanosis and no clubbing Skin: no rashes, warm and dry + lesion (chronic lesion due to PVD) Neurologic: moves all extremities and awake; no focal motor deficits Psychiatric: Orientation: alert and oriented x 3 Affect: + flat affect (1) CHF (congestive heart failure) Heart failure chronicity: chronic Heart failure type: unspecified Qualified Code(s): I50.9 - Heart failure, unspecified (2) Diabetes type 2, uncontrolled Glycemic state: with hypoglycemia Coma presence: without coma Qualified Code(s): E11.649 - Type 2 diabetes mellitus with hypoglycemia without coma (3) BPH (benign prostatic hyperplasia) Lower urinary tract symptom presence: symptoms absent Qualified Code(s): N40.0 - Benign prostatic hyperplasia without lower urinary tract symptoms
[2018-09-24] MEDS: TAMSULOSIN HCL 0.4 MG CAP PO SCH (20:32)
[2018-09-24] MEDS: ATORVASTATIN 40 MG TAB PO SCH (20:32)
[2018-09-24] MEDS: INSULIN GLARGINE SOLOSTAR 100 UNITS/ML 3 ML PEN SC SCH (21:24)
[2018-09-24] MEDS: NYSTATIN POWDER 15GM BTL EXT PRN (23:36)
[2018-09-25] MEDS: INSULIN ASPART 100 UNITS/ML 3 ML PEN SC SCH ×4 (09:29→20:25)
[2018-09-25] MEDS: DOCUSATE SODIUM 100 MG CAP PO SCH ×2 (09:30→20:13)
[2018-09-25] MEDS: cephALEXin 500 MG CAP PO SCH ×2 (09:30→20:12)
[2018-09-25] MEDS: CEROVITE ADV FORMULA TAB PO SCH (09:30)
[2018-09-25] MEDS: CLOPIDOGREL BISULFATE 75 MG TAB PO SCH (09:30)
[2018-09-25] MEDS: CYANOCOBALAMIN 500 MCG TABLET (VITAMIN B-12) PO SCH (09:30)
[2018-09-25] MEDS: CHOLECALCIFEROL 1,000 UNITS TAB PO SCH (09:30)
[2018-09-25] MEDS: FOLIC ACID 1 MG TAB PO SCH (09:31)
[2018-09-25] MEDS: ASPIRIN 81 MG ECTAB PO SCH (09:31)
[2018-09-25] MEDS: FUROSEMIDE 40 MG TAB PO SCH (09:31)
[2018-09-25] MEDS: METOPROLOL SUCC 50MG EXT REL TAB PO SCH (09:31)
[2018-09-25] MEDS: MAGNESIUM OXIDE 400 MG TAB PO SCH (09:31)
[2018-09-25] MEDS: LISINOPRIL 2.5 MG TAB PO SCH (09:31)
[2018-09-25] MEDS: NYSTATIN POWDER 15GM BTL EXT PRN (09:32)
[2018-09-25 10:45] LABS: BUN Creatinine Ratio 37.8 (10-20); Calcium 8.6 mg/dl (8.5-10.1); Creatinine Clr Calc Pharmacy 58.7 ml/min; Est GFR (African American) 57.6; Est GFR (Non-African American) 49.7
--- NOTE | 2018-09-25 16:21 | Hospitalist Progress Note ---
Date of Service September 25, 2018 Assessment & Plan (1) CHF (congestive heart failure): - Acute on Chronic Diastolic CHF - most recent echo with preserved EF which is improved from previous of 30% -- Possibly from recent admission with MACY/fluids administration - Improving symptoms and weaning from O2 - O2 hasn't been removed due to patient refusal as he state it gives him a "high" - states he ambulates in his room and to the bathroom with removal and feeling at baseline - Converted to Lasix 40 mg daily and he is to see Nephrology on Thursday but he has already made suggestions that he likely will not go - upon review of records it does not seem like he is chronically on Lasix but does have a waxing and waning issues with fluid and renal compromise -- Discussed importance of daily weights and to report 2-3 lb weight gains in a 24 hour period to his PCP - Has had very stable potassium levels with diuresis - given his underlying renal dysfunction and ACEI may be best to monitor without supplemental K repletion to prevent hyperkalemia - will need F/U labs and should really see his spring former hand but per outpatient records does have a tendency to no-show - Metoprolol 50 mg daily and Lisinopril 2.5 mg daily (2) Hypoxia: - Related to acute CHF exacerbation/bilateral pleural effusion/pulmonary edema - Wean O2 for pulse ox greater than 90%; management as above (3) Hematuria: - Acute onset but improved quickly - UA with leuks/blood/1+ bacteria with cx with multiple organisms - does have a H/O UTI - Will treat with Keflex 500 mg BID and monitor Cx (4) Diabetes type 2, uncontrolled: - A1c 12.4 - Lantus 12 units HS and continue SSI (5) Stage III pressure ulcer of left heel: - Continue to monitor; no signs of infection - Continue measures to prevent further breakdown (6) BPH (benign prostatic hyperplasia): - Continue Tamsulosin 0.4mg po daily (7) Chronic kidney disease, stage III (moderate): - Cr currently at 1.4 - baseline appears around 1.2-1.5 - Continue to monitor in setting of diuresis (8) Hyperlipidemia: - Continue Atorvastatin 40 mg daily (9) CAD (coronary artery disease): - STABLE - no ACS complaints; no ischemic findings on initial EKG - ASA 81 mg daiy; Plavix 75 mg daily; BB/ACEI/Statin (10) Hypertension: - STABLE - Continue Lisinopril and Metoprolol (11) Macrocytic anemia: - Continue folate and B12 supplementation - TSH mildly elevated and recommend recheck as outpatient in 4 weeks (12) PAD (peripheral artery disease): - 70-99% stenosis of L distal SFA with non-healing L heel ulcer - Follows with Dr. Aden for possible intervention (13) DVT prophylaxis: - Lovenox Disposition: Patient was due to D/C from [facility] around time of admission and is anticipating returning home on D/C - case management following -- Patient reluctant to discharge - gives no valid reason to not leave and there is no acute medical need for his continued hospitalization. He did request tomorrow would be better for him and will accommodate. Did discuss with him that there is no acute need in the hospital and will be discharged tomorrow and that an appeal process is available if he would disagree. Of note, he threatened to throw himself to the floor on discharge last stay to prolong admission and may need 1:1 prior to discharge if this would happen again. He states he will take a taxi home and will arrange this on his own and request discharge around lunch. Will plan on this, pending no acute issue arising he will be discharged tomorrow -- Sister called in the other day but patient does not want her updated and states he can talk to her if needed. Per outpatient review there is concern of some cognitive impairment however patient is independent and can recall information provided and reasoning for interventions. He does exhibit higher l evels of thinking however would agree that he likely isn't proactive in his health and compliance. However do not see direct signs that he is a harm to himself or cognitively compromised to not make decisions for himself. Subjective Patient reports feeling well and verbalizes no complaints. Feels that his breathing is stable and swelling in legs improving. Planned on D/C today however patient continues to make excuses of how today is not a good day and requesting tomorrow. Medically he does not exhibit any acute reasons to remain hospitalized. He normally ambulates without O2 but states he likes the O2 because "it gives him a high". He is almost always laying flat in bed on visits without respiratory compromise. Did discuss with patient that we do not have an acute reason to keep him hospitalized but will work with him and explained that he will discharge tomorrow if no acute contraindication. He requests for this to be around lunch time and that can be arranged. Of note, he did threaten to throw himself onto the ground on last admission to avoid discharge. Constitutional: no fever and no chills Respiratory: no cough and no dyspnea Cardiovascular: no chest pain and no orthopnea Gastrointestinal: no abdominal pain, no nausea and no vomiting Genitourinary (Male): no dysuria and no hematuria Physical Exam Vital Signs (Past 24 Hours): Last Vital Signs Temp 36.8 C 09/25/18 15:26 Pulse 82 09/25/18 15:26 Resp 16 09/25/18 15:26 BP 134/72 09/25/18 15:26 Pulse Ox 95 09/25/18 15:26 Constitutional: WD/WN, vitals as above well developed and well nourished; no acute distress Eyes: + anicteric sclerae ENMT: Ears: no hearing impairment Neck: trachea midline Respiratory: normal respiratory effort, lungs clear to auscultation Cardiovascular: Rate/Rhythm: regular rate and regular rhythm Heart Sounds: no murmur Vessels: no JVD Extremities: no edema Gastrointestinal (Abdomen): Inspection/Auscultation: normal bowel sounds Percussion/Palpation: abdomen soft; abdomen nontender Musculoskeletal: Head/Neck/Chest: normocephalic and head atraumatic Extremities: no cyanosis and no clubbing Skin: no rashes, warm and dry + lesion (chronic lesion due to PVD) Neurologic: moves all extremities; no focal motor deficits Psychiatric: Orientation: alert and oriented x 3 Affect: + flat affect (1) CHF (congestive heart failure) Heart failure chronicity: chronic Heart failure type: unspecified Qualified Code(s): I50.9 - Heart failure, unspecified (2) Diabetes type 2, uncontrolled Glycemic state: with hypoglycemia Coma presence: without coma Qualified Code(s): E11.649 - Type 2 diabetes mellitus with hypoglycemia without coma (3) BPH (benign prostatic hyperplasia) Lower urinary tract symptom presence: symptoms absent Qualified Code(s): N40.0 - Benign prostatic hyperplasia without lower urinary tract symptoms
[2018-09-25] MEDS: ATORVASTATIN 40 MG TAB PO SCH (20:12)
[2018-09-25] MEDS: TAMSULOSIN HCL 0.4 MG CAP PO SCH (20:13)
[2018-09-25] MEDS: INSULIN GLARGINE SOLOSTAR 100 UNITS/ML 3 ML PEN SC SCH (20:23)
[2018-09-26 06:39] LABS: Calcium 8.5 mg/dl (8.5-10.1); Creatinine Clr Calc Pharmacy 57.9 ml/min; Est GFR (African American) 56.6; Est GFR (Non-African American) 48.9; Potassium 4.2 mmol/L (3.5-5.1)
[2018-09-26] MEDS: cephALEXin 500 MG CAP PO SCH ×2 (09:48→16:34)
[2018-09-26] MEDS: CLOPIDOGREL BISULFATE 75 MG TAB PO SCH (09:49)
[2018-09-26] MEDS: FUROSEMIDE 40 MG TAB PO SCH (09:49)
[2018-09-26] MEDS: CEROVITE ADV FORMULA TAB PO SCH (09:49)
[2018-09-26] MEDS: METOPROLOL SUCC 50MG EXT REL TAB PO SCH (09:49)
[2018-09-26] MEDS: DOCUSATE SODIUM 100 MG CAP PO SCH (09:49)
[2018-09-26] MEDS: CHOLECALCIFEROL 1,000 UNITS TAB PO SCH (09:49)
[2018-09-26] MEDS: CYANOCOBALAMIN 500 MCG TABLET (VITAMIN B-12) PO SCH (09:49)
[2018-09-26] MEDS: FOLIC ACID 1 MG TAB PO SCH (09:50)
[2018-09-26] MEDS: LISINOPRIL 2.5 MG TAB PO SCH (09:50)
[2018-09-26] MEDS: ASPIRIN 81 MG ECTAB PO SCH (09:50)
[2018-09-26] MEDS: MAGNESIUM OXIDE 400 MG TAB PO SCH (09:50)
[2018-09-26] MEDS: INSULIN ASPART 100 UNITS/ML 3 ML PEN SC SCH ×3 (09:51→16:40)
--- NOTE | 2018-09-26 21:20 | Discharge Summary ---
Date of Service September 26, 2018 Admission HPI Per Admitting Provider Mr. Patel is a 68yo male with history of CAD, combined CHF, DMII, CKD III, HTN, HLP. He was recently admitted on September 05 with suspected PNA and sepsis with transient hypotension and hypoglycemia. Found to have bronchitis rather than true PNA, imaging without infiltrate. He was treated with a course of Doxycycline and Advair. Lasix was held during his hospital stay due to declining renal function. An echocardiogram was performed on 09/07/18 which revealed normal LV size and function with mild concentric LVG, EF of 55-60%. Patient was discharged to [facility] on 09/12/18. He reports that he has been overall feeling well since his prior hospital stay. He has been participating in rehab exercises without difficulty. This afternoon he laid down after lunch and became very short of breath. He states that he has had progressive bilateral LE edema as well as weight gain, approximately 3 kg. He denies CP/palpitations/dizziness. Denies cough/wheeze. Denies abdominal pain/nausea/vomiting/diarrhea or constipation. No additional complaints at this time Patient 87% on room air with ambulation in the ER. 89% at rest. Principal Diagnosis Acute Diastolic CHF Discharge Exam Constitutional WD/WN, vitals as above laying completely supine in bed Eyes + anicteric sclerae ENMT Ears: no hearing impairment Neck normal visual inspection and trachea midline Respiratory normal respiratory effort, lungs clear to auscultation Cardiovascular RRR, no murmur, no edema Gastrointestinal (Abdomen) Inspection/Auscultation: normal bowel sounds Percussion/Palpation: abdomen soft; abdomen nontender Musculoskeletal Head/Neck/Chest: normocephalic, head atraumatic and neck supple Skin + ulcer (chronic ulcer of L ankle/foot) Neurologic moves all extremities Psychiatric Orientation: alert and oriented x 3 Affect: + flat affect Discharge Data Allergies Allergy/AdvReac Type Severity Reaction Status Date / Time poliomyelitis vaccine, live Allergy Unknown Unknown Verified 09/17/18 16:26 oral Consultations 09/17/18 18:29 ED Decision to Admit Stat Ordered Studies 09/17/18 15:47 US venous doppler LE BI Stat Hospital Course (1) CHF (congestive heart failure): - Acute on Chronic Diastolic CHF - most recent echo with preserved EF which is improved from previous of 30% -- Possibly from recent admission with MACY/fluids administration - Improving symptoms and weaning from O2 - O2 hasn't been removed due to patient refusal as he state it gives him a "high" - states he ambulates in his room and to the bathroom with removal and feeling at baseline - Converted to Lasix 40 mg daily and he is to see Nephrology on Thursday but he has already made suggestions that he likely will not go - upon review of records it does not seem like he is chronically on Lasix but does have a waxing and waning issues with fluid and renal compromise -- Discussed importance of daily weights and to report 2-3 lb weight gains in a 24 hour period to his PCP - Has had very stable potassium levels with diuresis - given his underlying renal dysfunction and ACEI may be best to monitor without supplemental K repletion to prevent hyperkalemia - Rx for F/U labs given and should really see his dopster but per outpatient records does have a tendency to no-show - Metoprolol 50 mg daily and Lisinopril 2.5 mg daily (2) Hypoxia: - Related to acute CHF exacerbation/bilateral pleural effusion/pulmonary edema - Wean O2 for pulse ox greater than 90%; management as above (3) Hematuria: - Acute onset but improved quickly - UA with leuks/blood/1+ bacteria with cx with multiple organisms - does have a H/O UTI - Will treat with Keflex 500 mg BID x 7 days total given his H/O with UTIs and AMS (4) Diabetes type 2, uncontrolled: - A1c 12.4 - Lantus 12 units HS and and Humalog 5 units with meals - this will need re- evaluated as outpatient as he had some adjustments then had some hypoglycemia but ultimately does not have glucose control, he was then at [facility] prior to this admission (5) Stage III pressure ulcer of left heel: - Continue to monitor; no signs of infection - Continue measures to prevent further breakdown (6) BPH (benign prostatic hyperplasia): - Continue Tamsulosin 0.4mg daily (7) Chronic kidney disease, stage III (moderate): - Cr currently at 1.4 - baseline appears around 1.2-1.5 - Continue to monitor in setting of diuresis (8) Hyperlipidemia: - Continue Atorvastatin 40 mg daily (9) CAD (coronary artery disease): - STABLE - no ACS complaints; no ischemic findings on initial EKG - ASA 81 mg daiy; Plavix 75 mg daily; BB/ACEI/Statin (10) Hypertension: - STABLE - Continue Lisinopril and Metoprolol (11) Macrocytic anemia: - Continue folate and B12 supplementation - TSH mildly elevated and recommend recheck as outpatient in 4 weeks (12) PAD (peripheral artery disease): - 70-99% stenosis of L distal SFA with non-healing L heel ulcer - Follows with Dr. Aden for possible intervention (13) DVT prophylaxis: Disposition: Patient was due to D/C from [facility] around time of admission and is anticipating returning home on D/C - case management following -- Sister called in the other day but patient does not want her updated and states he can talk to her if needed. Per outpatient review there is concern of some cognitive impairment however patient is independent and can recall information provided and reasoning for interventions. He does exhibit higher levels of thinking however would agree that he likely isn't proactive in his health and compliance. However do not see direct signs that he is a harm to himself or cognitively compromised to not make decisions for himself. He does not anticipate being homebound and therefore would not qualify for home services nor does he want them. Could consider OOA evaluation and maybe meals on wheels as his large motivator to hold discharge seems to focus on food her in the hospital Total Time Total Time Spent Total Time Spent (In Minutes): Greater than 30 minutes Discharge Plan Discharge Items Patient Disposition: Home - Self-Care Reason For Visit: ORTHOPNEA Discharge Diagnosis: Acute Heart Failure Discharge Goals: Decrease discomfort, Improve disease control and Prevent disease Activity: Resume your previous activity Non-emergency contact: Primary Care Provider Call non-emergency contact if: you have any medication questions and your symptoms worsen Follow-up/Referrals: [facility] [place]Provider Group] - 09/27/18 8:00 am (Please, follow up at [facility] on ThursdaySeptember 27 at 8:00 am. *This clinic is located at [address] in [place]. If you need to change this appointment, call the clinic at [phone].) Luis Hugo MD [Physician] - 09/27/18 10:00 am (Please, follow up at [facility] Nephrology Office with Dr. Luis Hugo on ThursdaySeptember 27 at 10:00 am. *This office is located in [address] of [facility] - big building next to this hospital. If you need to change this appointment, call the office at [phone].) Hayley Watson MD [Primary Care Provider] - 10/01/18 11:40 am (Please, follow up with Dr. Oseguera on ThursdayOctober 01 at 11:40 am. *If you need to change this appointment, call the office at [phone].) Diet: Carb Consistent or DM2, Heart Healthy and Low Sodium (2gm) Other Ambulatory Orders: Basic Metabolic Panel (Routine) Timeframe: 3 Days Location: Determined by Patient Ordered By: Malu Pro Provider Instructions: Heart Failure: - You were admitted for having extra fluid on your body that gave you shortness of breath. This was likely from your heart and the fluid you got on your last admission. - Thankfully your echo (ultrasound of the heart) shows your heart is improving from previously which is great. - However fluid may be an ongoing issue for you. - Recommend weighing yourself daily at the same time every morning and writing this down for your family doctor. If you would gain 2-3 lbs in one day you should call your doctor and see if you should take more water pills or be checked out - You will be prescribed Lasix (Furosemide) 40 mg daily. You had this already today so you can start this on 09/27. This medication can help keep your fluid balanced but your kidney numbers need to be checked so that it doesn't cause you issues with them. -- You have an appointment with a kidney doctor tomorrow and should really keep this appointment Blood in Urine and Urinary Tract Infection: - You had some blood in your urine the other day and it looks like the beginning of a urine infection. - You will continue antibiotics to finish out a course. You had your morning d ose today so you just need one more dose this evening. - Take Keflex 500 mg twice a day until 09/29 Diabetes: - It is really important to get good control of your sugars. Your A1c is 12.4 and we would like to see this close to 6.5-7 to help reduce infection risk, heart disease, and wound healing compromise Wound: - Please continue to see the wound care clinic for your wounds Prescriptions: New cephalexin 500 mg Capsule 500 mg PO BID Qty: 7 RF: 0 furosemide 40 mg Tablet 40 mg PO QAM 30 Days Qty: 30 RF: 0 Continued aspirin [Adult Aspirin Regimen] 81 mg tablet,delayed release (DR/EC) 81 mg PO DAILY RF: 0 atorvastatin [Lipitor] 40 mg tablet 40 mg PO HS RF: 0 clopidogrel [Plavix] 75 mg tablet 75 mg PO DAILY RF: 0 folic acid 1 mg tablet 1 mg PO DAILY RF: 0 cyanocobalamin (vitamin B-12) [Vitamin B-12] 1,000 mcg tablet 1,000 mcg PO DAILY RF: 0 magnesium oxide 400 mg capsule 400 mg PO DAILY RF: 0 metoprolol succinate 50 mg capsule,sprinkle,ER 24hr 50 mg PO DAILY RF: 0 tamsulosin [Flomax] 0.4 mg capsule 0.4 mg PO HS RF: 0 docusate sodium 100 mg Capsule 100 mg PO BID RF: 0 lisinopril 2.5 mg tablet 2.5 mg PO DAILY RF: 0 fluticasone furoate-vilanterol 100-25 mcg/dose Blister With Device 1 inh INHALATION DAILY RF: 0 Lantus U-100 Insulin 100 unit/mL solution 12 units SC Q12H RF: 0 multivitamin with minerals Tablet 1 tab PO DAILY RF: 0 sennosides [senna] 8.6 mg Tablet 8.6 mg PO QAM PRN (Reason: Constipation) RF: 0 ipratropium-albuterol 0.5 mg-3 mg(2.5 mg base)/3 mL Solution For Nebulization 3 ml INHALATION Q4H PRN (Reason: Shortness Of Breath Or Wheezing) RF: 0 acetaminophen [Tylenol Extra Strength] 500 mg Tablet 500 mg PO Q12H PRN (Reason: Pain) RF: 0 cholecalciferol (vitamin D3) [Vitamin D3] 5,000 unit Tablet 5,000 units PO DAILY RF: 0 Changed Novolog Flexpen U-100 Insulin 100 unit/mL insulin pen 5 units SC AC Qty: 0 RF: 0 Discontinued heparin (porcine) 5,000 unit/mL Solution 5,000 units SUBCUT Q8H RF: 0 doxycycline hyclate 100 mg Tablet 100 mg PO Q12H RF: 0 magnesium hydroxide 400 mg/5 mL Suspension 30 ml PO DAILY PRN (Reason: Constipation) RF: 0 bisacodyl 10 mg Suppository 10 mg [place] DAILY PRN (Reason: Constipation) RF: 0 Fleet Enema 19-7 gram/118 mL Enema 118 ml [place] DAILY PRN (Reason: Constipation) RF: 0 Stand-Alone Forms: [facility] Discharge Orders: Discharge Order (Routine); Ordered 09/26/18 Ordered By: Malu Bahena Admission Data Admit Date/Time: 09/17/18 19:57 Attending Provider: José Barlow Admit Provider: Starla Beaulieu Primary Care Provider: Hayley Watson V. Other Providers: Donny Vargas Service: Medical Other Interventions: Discharge Summary Assessment (RN) Last Done: 09/26/18 11:54 Pending Studies at Discharge: No DC Date/Time DO NOT enter until pt leaves facility: 09/26/18 17:52
== END 2018-09-26 17:52 | disposition home or self-care (01) | DRG 291 ==
LOC: ED 15:26 → 2W 19:57 → SUATTDRO 19:57 → 2W 20:38

== ENCOUNTER 2019-09-25 22:20 | Inpatient (IN) ==
--- NOTE | 2019-09-25 23:11 | Emergency Department Note ---
History of Present Illness General Chief complaint: Infection Stated complaint: LT FOOT INFECTION Time Seen by Provider: 09/25/19 22:29 Source: patient Mode of arrival: ambulatory Limitations: no limitations History of Present Illness This patient is a 69-year-old male who presents to the emergency department for evaluation of a left foot wound. Patient reports that he has a wound on his left foot which is bleeding. He just noticed the bleeding tonight. He states the wound has been there for about 1 week. He denies any pain, but admits that he does not have good feeling in his feet due to diabetic neuropathy. Patient states that he had a "bed wound" on the foot and previously followed with the wound clinic but was discharged from them a few months ago when the wound had healed. Patient denies any systemic symptoms or fevers. He has not been applying any dressings to the wound. The wound is currently not being treated. Patient does note he has had some intermittent bleeding from his right nare which is not unusual for him. He states that he is on a blood thinner due to a "minor heart attack." He is diabetic and takes insulin daily but does not check his blood sugars. Home Medications Home Medications Medication Instructions Recorded Confirmed Type aspirin 81 mg tablet,delayed 81 mg PO DAILY 03/02/18 09/25/19 History release atorvastatin 40 mg tablet 40 mg PO HS tab 03/02/18 09/25/19 History multivitamin with minerals 1 tab PO DAILY 09/17/18 09/25/19 History furosemide 40 mg tablet 40 mg PO DAILY #90 tab 02/02/19 09/25/19 Rx clopidogrel 75 mg tablet 75 mg PO DAILY #30 tab 04/08/19 09/25/19 Rx blood sugar diagnostic #10 ea 04/15/19 07/20/19 History lisinopril 2.5 mg tablet 2.5 mg PO DAILY #30 tab 07/28/19 09/25/19 Rx Lantus U-100 Insulin 28 units SC QAM 09/25/19 09/25/19 History Allergies Allergy/AdvReac Type Severity Reaction Status Date / Time poliomyelitis vaccine, live Allergy Unknown Unknown Verified 09/25/19 23:57 oral Past Med/Surg History Medical History Abscess Abscess (Chronic) Acute blood loss anemia Acute blood loss anemia (Acute) Acute renal insufficiency Acute renal insufficiency (Acute) ATN (acute tubular necrosis) ATN (acute tubular necrosis) (Chronic) CAD in [place] artery (Acute) Chronic ulcer of left heel (Acute) Cognitive disorder (Acute) Diabetes mellitus with diabetic polyneuropathy (Acute) DM II (diabetes mellitus, type II), controlled (Chronic) Elevated serum creatinine (Acute) Foot swelling (Acute) Gait disturbance (Acute) Heel ulcer (Acute) Hematuria (Acute) HTN (hypertension) (Chronic) Hydronephrosis (Chronic) Hypomagnesemia (Acute) Hypoxia (Inactive) Idiopathic polyneuropathy (Acute) Incomplete bladder emptying (Acute) Left foot infection (Acute) MSSA (methicillin susceptible Staphylococcus aureus) (Chronic) Neurogenic bladder (Acute) Nocturia (Acute) Osteomyelitis (Chronic) Peripheral neuropathy (Acute) Peripherally inserted central catheter in place (Chronic) PICC (peripherally inserted central catheter) in place Preop examination Recurrent UTI (Chronic) Renal insufficiency (Acute) Sepsis Sepsis (Chronic) Subsequent non-ST elevation (NSTEMI) myocardial infarction (Acute) UTI (urinary tract infection) due to urinary indwelling catheter (Inactive) Yeast dermatitis (Chronic) Surgical History H/O oral surgery History of tonsillectomy Social History Preferred Language: Syrian Communication Ability: Effective Visual Impairment: No Limitations Electronic Equipment Installer Required: No Beliefs That Will Affect Care: None marital status: Single Current Living Situation: Alone Current Living Situation Comment: lives alone in [facility] current occupational status: retired Feels Safe at Home: Yes Smoking Status: Never smoker Second Hand Exposure: No ; Hx Alcohol Use: No Hx Substance Use: No Review of Systems A total of 10 systems reviewed and were otherwise negative Physical Exam Vital Signs Vital Signs - 24 hr 09/25/19 22:25 09/26/19 00:21 Temperature 37.3 C Temperature Source Oral Pulse Rate 113 H Pulse Rate [Apical] 103 H Respiratory Rate 18 18 Respiratory Effort / Characteristics Non-Labored Spontaneous Non-Labored Respiratory Depth Normal Normal Blood Pressure 182/84 H Blood Pressure [Left Arm] 161/92 H Blood Pressure Mean 116 Blood Pressure Mean [Left Arm] 115 Blood Pressure Position Sitting Pulse Oximetry 96 97 Oxygen Delivery Method Room Air Room Air Sepsis Recent Fever Within 48 Hours No Sepsis New/Unexplained Change in Mental Status No Sepsis Action Taken by Nursing No Action Required VITALS: Vitals are noted on the nurse's note and reviewed by myself. Vital signs stable. GENERAL: This is a 69-year-old male, in no acute distress, well-developed well- nourished. EARS: External auditory canals clear, tympanic membranes pearly montanez without erythema or effusion bilaterally. EYES: Pupils equal round and reactive to light and accommodation. MOUTH: Mucous membranes moist. NECK: Supple without nuchal rigidity. HEART: Regular rate and rhythm without murmurs gallops or rubs. LUNGS: Clear to auscultation bilaterally without wheezes, rales or rhonchi. EXTREMITIES: There is a necrotic wound to the left heel with purulent, foul- smelling drainage. 3+ pitting edema to bilateral lower extremities. NEURO: Patient was alert and oriented to person place and time. Decreased distal sensation to the lower extremities. Course Consultations Consultation #1: Dr. Dickson [facility] hospitalist Administered Medications Miscellaneous (Carbohydrates For Hypoglycemia) 15 - 30 gm PO UD PRN PRN Reason: Hypoglycemia Protocol Stop: 10/26/19 02:33 Last Admin: 09/26/19 02:30 Dose: 30 gm Documented by: [id number] Discontinued Medications Furosemide (Lasix) 40 mg IV NOW STA Stop: 09/26/19 01:35 Last Admin: 09/26/19 01:46 Dose: 40 mg Documented by: [id number] Vancomycin HCl 2,000 mg/ (Sodium Chloride) 540 mls @ 200 mls/hr IV NOW ONE Stop: 09/26/19 02:44 Last Admin: 09/26/19 00:58 Dose: 200 mls/hr Documented by: [id number] Piperacillin Sod/Tazobactam Sod (Zosyn) 4.5 gm in 120 mls @ 240 mls/hr IV NOW ONE Stop: 09/26/19 00:38 Last Infusion: 09/26/19 01:00 Dose: 0 mls/hr Documented by: [id number] Admin: 09/26/19 00:18 Dose: 240 mls/hr Documented by: [id number] Medical Decision Making Differential Diagnosis Differential diagnosis includes cellulitis, abscess, osteomyelitis, sepsis, among others. Medical Records Attestation: I reviewed the patient's medical records. Home Medications Current Medication List: was personally reviewed by me Laboratory Data Attestation: I reviewed the patient's lab results. Result diagrams: 09/25/19 23:10 09/25/19 23:10 Lab Results 09/25/19 09/25/19 09/25/19 Range/Units 23:10 23:10 23:10 WBC 11.60 H (4.8-10.8) K/uL RBC 3.95 L (4.7-6.1) M/uL Hgb 12.8 L (14.0-18.0) g/dL Hct 40.1 L (42-52) % MCV 101.5 H (80-100) fL MCH 32.4 (25-34) pg MCHC 31.9 L (32-36) g/dL RDW Std Deviation 49.5 H (36.4-46.3) fL RDW Coeff of Clarissa 13.2 (11.5-14.5) % Plt Count 253 (130-400) K/uL MPV 10.7 H (7.4-10.4) fL Immature Gran % (Auto) 0.3 % Neut % (Auto) 80.8 % Lymph % (Auto) 7.2 % Dewitt % (Auto) 9.7 % Eos % (Auto) 1.8 % Baso % (Auto) 0.2 % Immature Gran # (Auto) 0.03 H (0.00-0.02) K/uL Neut # (Auto) 9.38 H (1.4-6.5) K/uL Lymph # (Auto) 0.83 L (1.2-3.4) K/uL Dewitt # (Auto) 1.13 H (0.11-0.59) K/uL Eos # (Auto) 0.21 (0-0.5) K/uL Baso # (Auto) 0.02 (0-0.2) K/uL PT 11.6 (9.0-12.0) Seconds INR 1.1 (0.9-1.1) APTT 27.7 (21.0-31.0) Seconds PTT Ratio 1.0 Sodium 141 (136-145) mmol/L Potassium 3.8 (3.5-5.1) mmol/L Chloride 105 (98-107) mmol/L Carbon Dioxide 29 (21-32) mmol/L Anion Gap 7.0 (3-11) BUN 28 H (7-18) mg/dl Creatinine 1.33 (0.6-1.4) mg/dl Est Cr Clr Drug Dosing Not Reportable Est GFR ( Amer) 61.9 Est GFR (Non-Af Amer) 53.4 BUN/Creatinine Ratio 20.8 H (10-20) Glucose 126 H (70-99) mg/dl Lactate (0.4-2.0) mmol/L Calcium 8.9 (8.5-10.1) mg/dl Total Bilirubin 1.4 H (0.2-1) mg/dl AST 35 (15-37) U/L ALT 26 (12-78) U/L Alkaline Phosphatase 274 H (45-117) U/L Troponin I < 0.015 (0-0.045) ng/ml Total Protein 7.5 (6.4-8.2) gm/dl Albumin 3.0 L (3.4-5.0) gm/dl Globulin 4.5 H (2.5-4.0) gm/dl Albumin/Globulin Ratio 0.7 L (0.9-2) 03/22/20 Range/Units 23:30 WBC (4.8-10.8) K/uL RBC (4.7-6.1) M/uL Hgb (14.0-18.0) g/dL Hct (42-52) % MCV (80-100) fL MCH (25-34) pg MCHC (32-36) g/dL RDW Std Deviation (36.4-46.3) fL RDW Coeff of Clarissa (11.5-14.5) % Plt Count (130-400) K/uL MPV (7.4-10.4) fL Immature Gran % (Auto) % Neut % (Auto) % Lymph % (Auto) % Dewitt % (Auto) % Eos % (Auto) % Baso % (Auto) % Immature Gran # (Auto) (0.00-0.02) K/uL Neut # (Auto) (1.4-6.5) K/uL Lymph # (Auto) (1.2-3.4) K/uL Dewitt # (Auto) (0.11-0.59) K/uL Eos # (Auto) (0-0.5) K/uL Baso # (Auto) (0-0.2) K/uL PT (9.0-12.0) Seconds INR (0.9-1.1) APTT (21.0-31.0) Seconds PTT Ratio Sodium (136-145) mmol/L Potassium (3.5-5.1) mmol/L Chloride (98-107) mmol/L Carbon Dioxide (21-32) mmol/L Anion Gap (3-11) BUN (7-18) mg/dl Creatinine (0.6-1.4) mg/dl Est Cr Clr Drug Dosing Est GFR ( Amer) Est GFR (Non-Af Amer) BUN/Creatinine Ratio (10-20) Glucose (70-99) mg/dl Lactate 1.2 (0.4-2.0) mmol/L Calcium (8.5-10.1) mg/dl Total Bilirubin (0.2-1) mg/dl AST (15-37) U/L ALT (12-78) U/L Alkaline Phosphatase (45-117) U/L Troponin I (0-0.045) ng/ml Total Protein (6.4-8.2) gm/dl Albumin (3.4-5.0) gm/dl Globulin (2.5-4.0) gm/dl Albumin/Globulin Ratio (0.9-2) Imaging Data Attestation: I personally reviewed and interpreted this imaging study as follows: My Impression: XRAY FOOT: Soft tissue swelling noted of the heel. Bony heel spur noted. No obvious evidence of osteomyelitis. Blood Pressure Blood Pressure Findings: Normal blood pressure MDM Narrative The patient is a 69-year-old male who presents today complaining of a wound on his left foot. Examination reveals a necrotic, draining and very foul-smelling wound. I did review prior wound clinic pictures and it seems that the wound was much more mild on previous visits to the wound clinic. Labs revealed a mild leukocytosis, mild anemia, no concerning electrolyte abnormalities. Lactate was not elevated. X-ray of the foot reveals some soft tissue swelling, no obvious evidence of osteomyelitis. Patient given IV Zosyn and vancomycin and case was discussed with the [facility] hospitalist service, who will evaluate the patient for further care. Impression & Plan Cellulitis of foot, left, Diabetic ulcer of left foot Discharge Plan Visit Data *Final* Discharge Date/Time: 09/26/19 02:00 Chief Complaint: Infection Stated Complaint: LT FOOT INFECTION ED Provider: Rigoberto Caballero ED Midlevel Provider: Ayde Connors Discharge Problem: Cellulitis of foot, left, Diabetic ulcer of left foot Patient Disposition: Admitted As Inpatient Discharge Instructions Interventions: ED Discharge Assessment Last Done: 09/26/19 02:00 Discharge Problem: Diabetic ulcer of left foot Qualifiers: Diabetic foot ulcer location: heel Diabetes mellitus type: type 2 Non-pressure ulcer stage: limited to breakdown of skin Qualified Code(s): E11.621 - Type 2 diabetes mellitus with foot ulcer
[2019-09-25 23:31] LABS: Basophils # (auto) 0.02 K/uL (0-0.2); Basophils % (auto) 0.2 %; Eosinophils # (auto) 0.21 K/uL (0-0.5); Eosinophils % (auto) 1.8 %; Hematocrit (blood only) 40.1 % (42-52); Hemoglobin 12.8 g/dL (14.0-18.0); Immature Granulocytes # (auto) 0.03 K/uL (0.00-0.02); Immature Granulocytes % (auto) 0.3 %; Lymphocytes # (auto) 0.83 K/uL (1.2-3.4); Lymphocytes % (auto) 7.2 %; Mean Corpuscular Hemoglobin 32.4 pg (25-34); Mean Corpuscular Hgb Conc 31.9 g/dL (32-36); Mean Corpuscular Volume 101.5 fL (80-100); Mean Platelet Volume 10.7 fL (7.4-10.4); Monocytes # (auto) 1.13 K/uL (0.11-0.59); Monocytes % (auto) 9.7 %; Neutrophils # (auto) 9.38 K/uL (1.4-6.5); Neutrophils % (auto) 80.8 %; Platelet Count 253 K/uL (130-400); RDW Coefficient of Variation 13.2 % (11.5-14.5); RDW Standard Deviation 49.5 fL (36.4-46.3); Red Blood Count 3.95 M/uL (4.7-6.1)
[2019-09-25 23:52] LABS: Alanine Aminotransferase 26 U/L (12-78); Aspartate Aminotransferase 35 U/L (15-37); BUN Creatinine Ratio 20.8 (10-20); Blood Urea Nitrogen 28 mg/dl (7-18); Calcium 8.9 mg/dl (8.5-10.1); Carbon Dioxide 29 mmol/L (21-32); Chloride 105 mmol/L (98-107); Est GFR (African American) 61.9; Est GFR (Non-African American) 53.4; Glucose 126 mg/dl (70-99); Potassium 3.8 mmol/L (3.5-5.1); Sodium 141 mmol/L (136-145)
[2019-09-25 23:53] LABS: INR 1.1 (0.9-1.1); Partial Thromboplastin Time 27.7 Seconds (21.0-31.0); Prothrombin Time 11.6 Seconds (9.0-12.0)
[2019-09-25 23:55] LABS: Albumin Globulin Ratio 0.7 (0.9-2); Alkaline Phosphatase 274 U/L (45-117); Bilirubin,Total 1.4 mg/dl (0.2-1); Globulin 4.5 gm/dl (2.5-4.0); Total Protein 7.5 gm/dl (6.4-8.2)
[2019-09-25] MEDS ORDERED: PIPERACILLIN/TAZOBACTAM 3.375 GM in DEXTROSE 5% 100 ML/100 ML BAG IV STA (23:59)
[2019-09-25] MEDS ORDERED: PIPERACILL/TAZOBAC CONSULT ACTIVE PRN (23:59)
[2019-09-26] MEDS ORDERED: VANCOMYCIN HCL 2,000 MG in SODIUM CHLORIDE 0.9% 500 ML IV ONE (00:03)
[2019-09-26] MEDS ORDERED: VANCOMYCIN CONSULT ACTIVE PRN ×2 (00:03→02:34)
[2019-09-26] MEDS ORDERED: PIPERACILLIN/TAZOBACTAM 4.5 GM/120 ML BAG IV ONE (00:09)
[2019-09-26] MEDS ORDERED: PIPERACILL/TAZOBAC CONSULT ACTIVE PRN ×2 (00:09→02:34)
[2019-09-26] MEDS ORDERED: FUROSEMIDE 40 MG/4 ML VIAL IV STA (01:34)
[2019-09-26] MEDS ORDERED: ONDANSETRON INJ 2 MG/ML 2 ML VIAL IV PRN (02:34)
[2019-09-26] MEDS ORDERED: GLUCOSE 40% GEL 15 GM TUBE PO PRN (02:34)
[2019-09-26] MEDS ORDERED: ACETAMINOPHEN 325 MG TAB PO PRN (02:34)
[2019-09-26] MEDS ORDERED: DEXTROSE 50% 50 ML SYRINGE IV PRN (02:34)
[2019-09-26] MEDS ORDERED: GLUCOSE 10 TABS/TUBE PO PRN (02:34)
[2019-09-26] MEDS ORDERED: CARBOHYDRATES FOR HYPOGLYCEMIA PO PRN (02:34)
[2019-09-26] MEDS ORDERED: ALUMINUM/MAGNESIUM SUSP 30 ML UDC PO PRN (02:34)
[2019-09-26] MEDS ORDERED: PIPERACILLIN/TAZOBACTAM 4.5 GM/120 ML BAG IV SCH (02:34)
[2019-09-26] MEDS ORDERED: GLUCAGON FOR INJ 1 MG VIAL SQ PRN (02:34)
[2019-09-26] MEDS ORDERED: MAGNESIUM HYDROXIDE SUSP 30 ML UDC PO PRN (02:34)
[2019-09-26] MEDS ORDERED: DEXTROSE 50% 50 ML SYRINGE IV ONE (02:51)
[2019-09-26 02:58] LABS: Troponin I < 0.015 ng/ml (0-0.045)
[2019-09-26 06:05] LABS: Basophils # (auto) 0.02 K/uL (0-0.2); Basophils % (auto) 0.2 %; Eosinophils # (auto) 0.26 K/uL (0-0.5); Eosinophils % (auto) 2.7 %; Hematocrit (blood only) 37.9 % (42-52); Hemoglobin 11.9 g/dL (14.0-18.0); Immature Granulocytes # (auto) 0.04 K/uL (0.00-0.02); Immature Granulocytes % (auto) 0.4 %; Lymphocytes # (auto) 0.46 K/uL (1.2-3.4); Lymphocytes % (auto) 4.8 %; Mean Corpuscular Hemoglobin 31.7 pg (25-34); Mean Corpuscular Hgb Conc 31.4 g/dL (32-36); Mean Corpuscular Volume 101.1 fL (80-100); Mean Platelet Volume 10.6 fL (7.4-10.4); Monocytes # (auto) 0.88 K/uL (0.11-0.59); Monocytes % (auto) 9.1 %; Neutrophils # (auto) 8.02 K/uL (1.4-6.5); Neutrophils % (auto) 82.8 %; Platelet Count 231 K/uL (130-400); RDW Coefficient of Variation 13.2 % (11.5-14.5); RDW Standard Deviation 49.3 fL (36.4-46.3); Red Blood Count 3.75 M/uL (4.7-6.1); White Blood Count 9.68 K/uL (4.8-10.8)
[2019-09-26 06:21] LABS: INR 1.2 (0.9-1.1); Prothrombin Time 12.4 Seconds (9.0-12.0)
[2019-09-26] MEDS: FUROSEMIDE 40 MG in SYRINGE 0 ML IV SCH ×2 (06:21→18:47)
--- NOTE | 2019-09-26 06:21 | History & Physical Report ---
Date of Service September 26, 2019 Assessment & Plan (1) Diabetic ulcer of left foot: Place on vancomycin IV and Zosyn IV. Consult wound care Patient may need to have reassessment for osteomyelitis. He did have a negative MRI on 08/18/2018 Present on Admission?: Yes (2) Diabetic peripheral neuropathy associated with type 2 diabetes mellitus: Diabetic peripheral neuropathy/idiopathic polyneuropathy- Patient does not appear to be on any neuropathic medications at this time. He undoubtedly has significant neuropathy, as he is little or no discomfort in this significant left heel lesion. Present on Admission?: Yes (3) Idiopathic polyneuropathy: See above Present on Admission?: Yes (4) CAD in [place] artery: CAD/PAD/CHF/ischemic cardiomyopathy- Continue aspirin 81 mg daily, clopidogrel 75 mg daily and lisinopril 2.5 mg daily. Give Lasix 40 mg IV now, and then 40 mg IV twice daily starting in the a.m. Present on Admission?: Yes (5) PAD (peripheral artery disease): See above Present on Admission?: Yes (6) CHF (congestive heart failure): See above Present on Admission?: Yes (7) Ischemic cardiomyopathy: See above Present on Admission?: Yes (8) Diabetes type 2, uncontrolled: Reduce Lantus from 28 units to 14 units subcu every morning. Placed on Accu-Cheks before meals and at bedtime with NovoLog coverage per scale. Hypoglycemic protocol Present on Admission?: Yes (9) Chronic kidney disease, stage III (moderate): Creatinine 1.33 upon admission, with range 1.22-1.54. Continue to follow serially. Present on Admission?: Yes (10) Hyperlipidemia: Continue atorvastatin 40 mg at bedtime Present on Admission?: Yes History of Present Illness Chief Complaint: The patient presents to the emergency department for assessment of a left heel wound, that he reports has been present for about 1 week, due to bleeding that he just noticed earlier this evening. Primary Care Provider: Hayley Watsno MD The patient is a 69-year-old male with a past medical history including and non-STEMI, chronic kidney disease stage III, peripheral neuropathy, neurogenic bladder, idiopathic polyneuropathy, diabetes mellitus, peripheral vascular disease, CHF, PAD, macrocytic anemia, anemia of chronic disease, stage III pressure ulcer of left heel, chronic combined systolic and diastolic CHF, vitamin D deficiency, BPH, hyperlipidemia, MSSA septicemia, recurrent UTI, and history of diabetic foot ulcer. He presents to the emergency department with bleeding from his left heel which is as noted earlier in the day today. He has been followed by the wound care clinic in the outpatient setting. He notes no new trauma to the area. He denies any recent travels or sick exposures. He denies walking barefoot. Allergies Allergy/AdvReac Type Severity Reaction Status Date / Time poliomyelitis vaccine, live Allergy Unknown Unknown Verified 09/25/19 23:57 oral Home Medications Home Medications Medication Instructions Recorded Confirmed Type aspirin 81 mg tablet,delayed 81 mg PO DAILY 03/02/18 09/25/19 History release atorvastatin 40 mg tablet 40 mg PO HS tab 03/02/18 09/25/19 History multivitamin with minerals 1 tab PO DAILY 09/17/18 09/25/19 History furosemide 40 mg tablet 40 mg PO DAILY #90 tab 02/02/19 09/25/19 Rx clopidogrel 75 mg tablet 75 mg PO DAILY #30 tab 04/08/19 09/25/19 Rx blood sugar diagnostic #10 ea 04/15/19 07/20/19 History lisinopril 2.5 mg tablet 2.5 mg PO DAILY #30 tab 07/28/19 09/25/19 Rx Lantus U-100 Insulin 28 units SC QAM 09/25/19 09/25/19 History Past Med/Surg History Medical History Abscess Abscess (Chronic) Acute blood loss anemia Acute blood loss anemia (Acute) Acute renal insufficiency Acute renal insufficiency (Acute) ATN (acute tubular necrosis) ATN (acute tubular necrosis) (Chronic) CAD in [place] artery (Acute) Chronic ulcer of left heel (Acute) Cognitive disorder (Acute) Diabetes mellitus with diabetic polyneuropathy (Acute) DM II (diabetes mellitus, type II), controlled (Chronic) Elevated serum creatinine (Acute) Foot swelling (Acute) Gait disturbance (Acute) Heel ulcer (Acute) Hematuria (Acute) HTN (hypertension) (Chronic) Hydronephrosis (Chronic) Hypomagnesemia (Acute) Hypoxia (Inactive) Idiopathic polyneuropathy (Acute) Incomplete bladder emptying (Acute) Left foot infection (Acute) MSSA (methicillin susceptible Staphylococcus aureus) (Chronic) Neurogenic bladder (Acute) Nocturia (Acute) Osteomyelitis (Chronic) Peripheral neuropathy (Acute) Peripherally inserted central catheter in place (Chronic) PICC (peripherally inserted central catheter) in place Preop examination Recurrent UTI (Chronic) Renal insufficiency (Acute) Sepsis Sepsis (Chronic) Subsequent non-ST elevation (NSTEMI) myocardial infarction (Acute) UTI (urinary tract infection) due to urinary indwelling catheter (Inactive) Yeast dermatitis (Chronic) Surgical History H/O oral surgery History of tonsillectomy Social History Preferred Language: Turkish Communication Ability: Effective Visual Impairment: No Limitations Cessation Systems Outreach Specialist Required: No Beliefs That Will Affect Care: None marital status: Single Current Living Situation: Alone Current Living Situation Comment: lives alone in condo current occupational status: retired Other Information That Helps Us Care for You: No Feels Safe at Home: Yes Safety Concerns: Feels Safe At This Time Smoking Status: Never smoker Second Hand Exposure: No ; Hx Alcohol Use: No Hx Substance Use: No Review of Systems Review of Systems: The patient denies chest pain, palpitations, shortness of breath, dyspnea on exertion, cough, sore throat, fevers, chills, sweats, weight change, fatigue, nausea, vomiting, diarrhea , constipation, abdominal pain, pelvic pain, blood in urine or stool, dysuria, urinary frequency or urgency, lightheadedness, dizziness, headache, memory loss, loss of consciousness, imbalance, focal or generalized weakness, numbness or tingling in arms or right leg, generalized arthralgias or myalgias, back or neck pain, or night sweats. The review of systems is otherwise negative other than for that already noted above, and at least 10 systems have been reviewed. Physical Exam Physical Exam: The patient is awake, alert and oriented 3, normocephalic and atraumatic, lying in bed and in no acute distress. HEENT--PERRL, EOMI, mucous membranes and oropharynx normal. Neck--supple. No JVD. No bruits. Thyroid normal, trachea midline, no adenopathy. Heart--normal S1 and S2. No murmurs, rubs or gallops. Lungs--clear bilaterally, no respiratory distress, no accessory muscle use. Abdomen--normal bowel sounds and soft. Nontender. Nondistended. Extremities--there is bilateral 4+ pretibial and pedal pitting edema. Left heel with fluctuant lesion and serosanguineous drainage. Dermatologic--see above Neurologic--cranial nerves II through XII grossly intact. Rheumatologic--normal range of motion. Psychiatric--normal affect. Results & Data Vital Signs (Past 12 Hours) Vital Signs Temp Pulse Pulse Pulse Resp BP BP 09/26/19 04:54 92 H 09/26/19 02:20 97.5 F L 98 H 18 159/85 H 09/26/19 02:00 93 H 18 115/65 09/26/19 00:21 103 H 18 161/92 H 09/25/19 22:25 99.1 F 113 H 18 182/84 H Pulse Ox 09/26/19 04:54 09/26/19 02:20 97 09/26/19 02:00 98 09/26/19 00:21 97 09/25/19 22:25 96 Laboratory Results Laboratory Results WBC 9.68 K/uL (4.8-10.8) 09/26/19 05:47 RBC 3.75 M/uL (4.7-6.1) L 09/26/19 05:47 Hgb 11.9 g/dL (14.0-18.0) L 09/26/19 05:47 Hct 37.9 % (42-52) L 09/26/19 05:47 MCV 101.1 fL (80-100) H 09/26/19 05:47 MCH 31.7 pg (25-34) 09/26/19 05:47 MCHC 31.4 g/dL (32-36) L 09/26/19 05:47 RDW Std Deviation 49.3 fL (36.4-46.3) H 09/26/19 05:47 RDW Coeff of Clarissa 13.2 % (11.5-14.5) 09/26/19 05:47 Plt Count 231 K/uL (130-400) 09/26/19 05:47 MPV 10.6 fL (7.4-10.4) H 09/26/19 05:47 Immature Gran % (Auto) 0.4 % 09/26/19 05:47 Neut % (Auto) 82.8 % 09/26/19 05:47 Lymph % (Auto) 4.8 % 09/26/19 05:47 Hendricks % (Auto) 9.1 % 09/26/19 05:47 Eos % (Auto) 2.7 % 09/26/19 05:47 Baso % (Auto) 0.2 % 09/26/19 05:47 Immature Gran # (Auto) 0.04 K/uL (0.00-0.02) H 09/26/19 05:47 Neut # (Auto) 8.02 K/uL (1.4-6.5) H 09/26/19 05:47 Lymph # (Auto) 0.46 K/uL (1.2-3.4) L 09/26/19 05:47 Hendricks # (Auto) 0.88 K/uL (0.11-0.59) H 09/26/19 05:47 Eos # (Auto) 0.26 K/uL (0-0.5) 09/26/19 05:47 Baso # (Auto) 0.02 K/uL (0-0.2) 09/26/19 05:47 PT 11.6 Seconds (9.0-12.0) 09/25/19 23:10 INR 1.1 (0.9-1.1) 09/25/19 23:10 APTT 27.7 Seconds (21.0-31.0) 09/25/19 23:10 PTT Ratio 1.0 09/25/19 23:10 Sodium 141 mmol/L (136-145) 09/25/19 23:10 Potassium 3.8 mmol/L (3.5-5.1) 09/25/19 23:10 Chloride 105 mmol/L (98-107) 09/25/19 23:10 Carbon Dioxide 29 mmol/L (21-32) 09/25/19 23:10 Anion Gap 7.0 (3-11) 09/25/19 23:10 BUN 28 mg/dl (7-18) H 09/25/19 23:10 Creatinine 1.33 mg/dl (0.6-1.4) 09/25/19 23:10 Est Cr Clr Drug Dosing Not Reportable 09/25/19 23:10 Est GFR ( Amer) 61.9 09/25/19 23:10 Est GFR (Non-Af Amer) 53.4 09/25/19 23:10 BUN/Creatinine Ratio 20.8 (10-20) H 09/25/19 23:10 Glucose 126 mg/dl (70-99) H 09/25/19 23:10 POC Glucose 136 mg/dl (70-99) H 09/26/19 03:18 Lactate 1.2 mmol/L (0.4-2.0) 09/25/19 23:30 Calcium 8.9 mg/dl (8.5-10.1) 09/25/19 23:10 Total Bilirubin 1.4 mg/dl (0.2-1) H 09/25/19 23:10 AST 35 U/L (15-37) 09/25/19 23:10 ALT 26 U/L (12-78) 09/25/19 23:10 Alkaline Phosphatase 274 U/L (45-117) H 09/25/19 23:10 Troponin I < 0.015 ng/ml (0-0.045) 09/25/19 23:10 Total Protein 7.5 gm/dl (6.4-8.2) 09/25/19 23:10 Albumin 3.0 gm/dl (3.4-5.0) L 09/25/19 23:10 Globulin 4.5 gm/dl (2.5-4.0) H 09/25/19 23:10 Albumin/Globulin Ratio 0.7 (0.9-2) L 09/25/19 23:10 Code Status & VTE Plan Code Status Full code VTE Prophylaxis Plan VTE Prophylaxis will be ordered: Yes PG Care Time/CCT Total # of Minutes Spent Total Time Spent with Patient: Total time spent is greater than 50% in coordination of care (as documented) at patient's floor/unit and/or counseling patient: Coding Level of Care Code 58086 Initial Inpt Care Lvl 3 Diagnoses Diabetic ulcer of left foot E11.621; L97.421 Diabetes mellitus type: type 2 Diabetic foot ulcer location: heel Non-pressure ulcer stage: limited to breakdown of skin Diabetic peripheral neuropathy associated with type 2 diabetes mellitus E11.42 Idiopathic polyneuropathy G60.9 CAD in [place] artery I25.10 PAD (peripheral artery disease) I73.9 CHF (congestive heart failure) I50.9 Heart failure chronicity: chronic Heart failure type: unspecified Ischemic cardiomyopathy I25.5 Diabetes type 2, uncontrolled E11.649 Glycemic state: with hypoglycemia Coma presence: without coma Chronic kidney disease, stage III (moderate) N18.3 Hyperlipidemia E78.5 (1) Diabetic ulcer of left foot Diabetes mellitus type: type 2 Diabetic foot ulcer location: heel Non- pressure ulcer stage: limited to breakdown of skin Qualified Code(s): E11.621 - Type 2 diabetes mellitus with foot ulcer; L97.421 - Non-pressure chronic ulcer of left heel and midfoot limited to breakdown of skin (2) CHF (congestive heart failure) Heart failure chronicity: chronic Heart failure type: unspecified Qualified Code(s): I50.9 - Heart failure, unspecified (3) Diabetes type 2, uncontrolled Glycemic state: with hypoglycemia Coma presence: without coma Qualified Code(s): E11.649 - Type 2 diabetes mellitus with hypoglycemia without coma
[2019-09-26] MEDS: PIPERACILLIN/TAZOBACTAM 3.375 GM in DEXTROSE 5% 100 ML IV SCH ×3 (06:23→22:25)
[2019-09-26 06:43] LABS: Albumin Level 2.4 gm/dl (3.4-5.0); BUN Creatinine Ratio 20.6 (10-20); Calcium 8.2 mg/dl (8.5-10.1); Creatinine Clr Calc Pharmacy 66.4 ml/min; Est GFR (African American) 68.7; Est GFR (Non-African American) 59.3; Potassium 3.3 mmol/L (3.5-5.1)
[2019-09-26 06:46] LABS: Albumin Globulin Ratio 0.6 (0.9-2); Bilirubin,Total 1.1 mg/dl (0.2-1); Total Protein 6.4 gm/dl (6.4-8.2)
[2019-09-26] MEDS ORDERED: FUROSEMIDE 40 MG/4 ML VIAL IV SCH (07:00)
--- NOTE | 2019-09-26 07:00 | XRay Report ---
XR foot LT min 3V routine CLINICAL HISTORY: diabetic foot wound COMPARISON STUDY: Left foot 12/23/2017. FINDINGS: Focal ulceration within the posterior aspect of the heel. No associated underlying bony marlys truction to suggest osteomyelitis. Diffuse soft tissue swelling within the ankle and foot. Plantar an d posterior calcaneal spurs. No fracture or dislocation. The Lisfranc joint is intact. Mild osteoarth ritis within the DIP and PIP joints. IMPRESSION: 1. No radiographic evidence for osteomyelitis. 2. Diffuse soft tissue swelling. 3. Focal skin ulceration at the posterior heel. ACT 112: Negative or not required by law. Electronically signed by: Wale Cronin M.D. 09/26/2019 6:58 AM
[2019-09-26 07:11] LABS: Estimated Average Glucose 217 mg/dl; Hemoglobin A1C 9.2 % (4.5-5.6)
--- NOTE | 2019-09-26 07:29 | Pharmacy Report ---
Pharmacy Abx Initial Consult - Date of Service September 26, 2019 - Pharmacy Dosing Scope Date of Consult: 09/25 Consultation requested by: Dr. Dickson Pharmacy is consulted to initiate vancomycin and zosyn IV/PO dosing therapy, order appropriate labs and adjust drug dose/frequency. - Subjective The patient is a 69 year old M admitted on 09/26/19 01:33. - Objective Height: 6 ft Weight: 95 kg Vital Signs (Past 12hrs): Vital Signs Temp Pulse Pulse Pulse Resp BP BP 09/26/19 07:00 36.6 C 94 H 18 129/73 09/26/19 04:54 92 H 09/26/19 02:20 36.4 C L 98 H 18 159/85 H 09/26/19 02:00 93 H 18 115/65 09/26/19 00:21 103 H 18 161/92 H 09/25/19 22:25 37.3 C 113 H 18 182/84 H Pulse Ox 09/26/19 07:00 95 09/26/19 04:54 09/26/19 02:20 97 09/26/19 02:00 98 09/26/19 00:21 97 09/25/19 22:25 96 Lab Results (24hrs): Laboratory Tests (24 Hours) 09/26/19 09/26/19 09/25/19 05:47 05:47 23:10 WBC 9.68 Neut # (Auto) 8.02 H Creatinine 1.22 1.33 Est Cr Clr Drug Dosing 66.4 Not Reportable 09/25/19 23:10 WBC 11.60 H Neut # (Auto) 9.38 H Creatinine Est Cr Clr Drug Dosing Micro Results: 09/25/19 22:40 Gram Stain - Final Foot,Left Wound Culture - Pending 09/25/19 23:30 Aerobic Blood Culture - Pending Blood Anaerobic Blood Culture - Pending 09/25/19 23:10 Aerobic Blood Culture - Pending Blood Anaerobic Blood Culture - Pending - Risk Factors for Resistance * History of infection with a multidrug-resistant organism: 12/2018 foot cx - corynebacterium; 10/2018 foot cx - enterococcus - Assessment & Plan Assessment 69 year old with diabetic ulcer of left foot. History of recurrent diabetic foot infections. Foot xray negative for osteomyelitis. Started on vancomycin and zosyn. Foot cx's and blood cultures are pending. Plan Vancomycin IV * Patient meets criteria for vancomycin AUC dosing nomogram * AUC/MAYNOR is the preferred PK/PD target for vancomycin * Target AUC/MAYNOR = 400-600 - based upon nomogram patient candidate for vancomycin 1250 mg (~13 mg/kg) iv q 12 hrs which is estimated to produce a trough of 12.7 and AUC of 548 * Will plan to check trough prior to the 1200 dose on 09/26 to ensure therapeutic and to assess for accumulation Piperacillin/tazobactam * 3.375 gm iv q 8 hrs - appropriate for CrCl 66 ml/min (>20 ml/min) Pharmacy will continue to follow and will adjust dose/frequency as necessary. Thank you.
[2019-09-26] MEDS: CEROVITE ADV FORMULA TAB PO SCH (08:33)
[2019-09-26] MEDS: ASPIRIN 81 MG ECTAB PO SCH (08:33)
[2019-09-26] MEDS: INSULIN GLARGINE SOLOSTAR 100 UNITS/ML 3 ML PEN SC SCH (08:34)
[2019-09-26] MEDS: CLOPIDOGREL BISULFATE 75 MG TAB PO SCH (08:37)
[2019-09-26] MEDS: INSULIN ASPART 100 UNITS/ML 3 ML PEN SC SCH ×4 (08:38→20:23)
[2019-09-26] MEDS ORDERED: FUROSEMIDE 40 MG in SYRINGE 0 ML IV SCH (09:00)
[2019-09-26] MEDS ORDERED: VANCOMYCIN HCL 1,000 MG in SODIUM CHLORIDE 0.9% 250 ML IV SCH (09:00)
[2019-09-26] MEDS: POTASSIUM CHLORIDE 20 MEQ TABCR PO SCH ×3 (12:05→20:22)
[2019-09-26] MEDS: VANCOMYCIN HCL 1,250 MG in SODIUM CHLORIDE 0.9% 250 ML IV SCH ×2 (12:05→23:42)
--- NOTE | 2019-09-26 16:27 | Magnetic Resonance Report ---
MR ankle LT wo con CLINICAL HISTORY: 69 years-old Male with L heel ulcer; eval osteomyelitis. Chronic soft tissue wound of the left heel with concern for osteomyelitis. COMPARISON: Left foot radiographs 09/24/2009, MRI of the left foot 08/18/2018. TECHNIQUE: Multiplanar, multi sequence MRI of the left ankle was performed without contrast. FINDINGS: LATERAL LIGAMENT COMPLEX: The anterior talofibular ligament, calcaneofibular ligament and posterior t alofibular ligaments are intact. SYNDESMOTIC LIGAMENTS: The anterior-inferior tibiofibular ligament, interosseous membrane and posteri or-inferior tibiofibular ligaments are intact. DELTOID LIGAMENT COMPLEX: The superficial and deep components of the deltoid ligament are intact. ANTERIOR TENDONS: The tibialis anterior, extensor hallucis longus and extensor digitorum longus tendo ns are normal in position, morphology and signal. LATERAL TENDONS: The peroneus longus tendon is intact. There is moderate tendinosis of the inframalle olar peroneus brevis tendon with short segment inframalleolar split tear of approximately 1.5 cm (ple ase see images 24, 25 and 26 of series 5). Mild associated tenosynovitis. MEDIAL TENDONS: The posterior tibialis, flexor digitorum longus and flexor hallucis longus tendons ar e intact. Trace tenosynovitis of the posterior tibialis and flexor digitorum longus tendons. PLANTAR FASCIA: There is thickening of the medial and lateral cords of the plantar fascia with modera te plantar enthesophytes of the calcaneus. Findings suggest chronic plantar fasciitis. No acute tear or plantar fascial nodule. ACHILLES TENDON: There is mild thickening of the distal Achilles tendon suggestive of tendinosis. No acute tear. Trace retrocalcaneal fluid may reflect bursitis. SINUS TARSI: There is normal fat signal within the sinus tarsi. The interosseous and cervical ligamen ts are normal. The navicular-calcaneal (spring) ligament iswithout acute abnormality. TARSAL TUNNEL: There are no obstructing lesions within the tarsal tunnel. BONE MARROW: Deep to the soft tissue ulcer, there is minimal periostitis of the posterior calcaneus, image 13 of series 7 and image 32 of series 4 and 5. No significant osseous erosion or decreased T1 m arrow signal to suggest osteomyelitis. Mild multifocal osteoarthritis throughout the midfoot with mil d tibiotalar and subtalar osteoarthritis. No osteochondral defect. SOFT TISSUES: Soft tissue ulcer overlying the posterior and inferior aspect of the calcaneus redemons trated measuring approximately 3.2 x 2.7 cm in craniocaudal and transverse dimension extending for a depth of 8 mm. There is minimal subcutaneous and dermal edema. No drainable fluid collection. Trace t ibiotalar and subtalar joint effusions. Extensive subcutaneous and deep tissue edema of the foot and ankle. Diffuse muscular atrophy. Diffuse ly increased T2/STIR signal of the intrinsic musculature of the foot. IMPRESSION: 1. 3.2 x 2.7 cm soft tissue ulcer overlies the posterior and inferior aspect of the calcaneus. Deep t o the ulcer, there is minimal periostitis of the posterior calcaneus which is likely reactive. No def inite MR evidence of osteomyelitis. 2. Extensive subcutaneous and deep tissue edema of the foot and ankle suggests cellulitis, venous sta sis or lymphedema. 3. Diffuse atrophy of the intrinsic musculature of the foot demonstrates increased T2/STIR signal. Fi ndings are likely secondary to chronic denervation changes. Superimposed myositis could appear simila rly. 4. Short segment split tear of the peroneus brevis tendon along the inframalleolar segment. ACT 112: Positive. There are findings on this exam that require communication between the performing entity and the patient following Patient Test Result Information Act ([place] Act 112) guidelines. The above report was generated using voice recognition software. It may contain grammatical, syntax o r spelling errors. Dictated: 09/26/2019 3:55 PM Transcribed: 09/26/2019 4:25 PM Nancy [id number] [email or web address] Electronically signed by: Shmuel Garland M.D. 09/26/2019 4:26 PM
--- NOTE | 2019-09-26 20:06 | Hospitalist Progress Note ---
Date of Service September 26, 2019 Assessment & Plan (1) Diabetic ulcer of left foot: Cont vancomycin IV and Zosyn IV. Consulted wound care and wound care provider. May need orthopedics if extensive debridement is needed. Will check MRI left heel - r/o osteomyelitis. (2) Diabetic peripheral neuropathy associated with type 2 diabetes mellitus: (3) Idiopathic polyneuropathy: (4) CAD in [place] artery: Continue aspirin 81 mg daily, clopidogrel 75 mg daily and lisinopril 2.5 mg daily. No ischemic symptoms at this time. (5) PAD (peripheral artery disease): will look through records to see when last arterial study was completed to ensure adequate arterial circulation (6) CHF (congestive heart failure): agree with lasix IV repeat BMP am (7) Ischemic cardiomyopathy: last echo in system 09/2018 EF preserved at that time (8) Diabetes type 2, uncontrolled: cont basal-bolus insulin adjust as needed (9) Chronic kidney disease, stage III (moderate): Creatinine 1.33 upon admission, with range 1.22-1.54. BMP am. (10) Hyperlipidemia: Continue atorvastatin 40 mg at bedtime (11) Hypokalemia: replace repeat BMP am Admission and Anticipated Discharge Date Admission Date: September 26, 2019 Subjective patient reports that LE edema is "unusual" for him. denies pain in left heel. denies pain in any other location. tele normal since admission. Physical Exam Constitutional: no acute distress and no altered mental status ENMT: external ear and nose normal, oropharynx normal Respiratory: normal respiratory effort, lungs clear to auscultation Cardiovascular: Rate/Rhythm: regular rate and regular rhythm Heart Sounds: normal S1 and normal S2; no murmur Vessels: posterior tibial pulses present and dorsalis pedis pulses present; no JVD Extremities: + edema (3+ b/l ) Gastrointestinal (Abdomen): normal bowel sounds, soft, nontender, no hepa tosplenomegaly Skin: left heel - large ulceration covering entire heel; foul odor; devitalized skin throughout; bone cannot be seen Results & Data ([facility]) Vital Signs (Past 12 Hours) Vital Signs Temp Pulse Pulse Resp BP Pulse Ox 09/26/19 16:03 36.9 C 101 H 18 128/74 95 09/26/19 15:38 89 09/26/19 11:27 36.7 C 94 H 19 134/70 95 Laboratory Results Laboratory Results - last 24 hr 09/25/19 09/25/19 09/25/19 23:10 23:10 23:10 WBC 11.60 H RBC 3.95 L Hgb 12.8 L Hct 40.1 L MCV 101.5 H MCH 32.4 MCHC 31.9 L RDW Std Deviation 49.5 H RDW Coeff of Clarissa 13.2 Plt Count 253 MPV 10.7 H Immature Gran % (Auto) 0.3 Neut % (Auto) 80.8 Lymph % (Auto) 7.2 [place] % (Auto) 9.7 Eos % (Auto) 1.8 Baso % (Auto) 0.2 Immature Gran # (Auto) 0.03 H Neut # (Auto) 9.38 H Lymph # (Auto) 0.83 L [place] # (Auto) 1.13 H Eos # (Auto) 0.21 Baso # (Auto) 0.02 PT 11.6 INR 1.1 APTT 27.7 PTT Ratio 1.0 Sodium 141 Potassium 3.8 Chloride 105 Carbon Dioxide 29 Anion Gap 7.0 BUN 28 H Creatinine 1.33 Est Cr Clr Drug Dosing Not Reportable Est GFR ( Amer) 61.9 Est GFR (Non-Af Amer) 53.4 BUN/Creatinine Ratio 20.8 H Glucose 126 H POC Glucose Estimat Average Glucose Hemoglobin A1c Lactate Calcium 8.9 Total Bilirubin 1.4 H AST 35 ALT 26 Alkaline Phosphatase 274 H Troponin I < 0.015 Total Protein 7.5 Albumin 3.0 L Globulin 4.5 H Albumin/Globulin Ratio 0.7 L 09/25/19 09/26/19 09/26/19 23:30 02:28 02:44 WBC RBC Hgb Hct MCV MCH MCHC RDW Std Deviation RDW Coeff of Clarissa Plt Count MPV Immature Gran % (Auto) Neut % (Auto) Lymph % (Auto) [place] % (Auto) Eos % (Auto) Baso % (Auto) Immature Gran # (Auto) Neut # (Auto) Lymph # (Auto) [place] # (Auto) Eos # (Auto) Baso # (Auto) PT INR APTT PTT Ratio Sodium Potassium Chloride Carbon Dioxide Anion Gap BUN Creatinine Est Cr Clr Drug Dosing Est GFR ( Amer) Est GFR (Non-Af Amer) BUN/Creatinine Ratio Glucose POC Glucose 48 L* 48 L* Estimat Average Glucose Hemoglobin A1c Lactate 1.2 Calcium Total Bilirubin AST ALT Alkaline Phosphatase Troponin I Total Protein Albumin Globulin Albumin/Globulin Ratio 09/26/19 09/26/19 09/26/19 03:18 05:47 05:47 WBC 9.68 RBC 3.75 L Hgb 11.9 L Hct 37.9 L MCV 101.1 H MCH 31.7 MCHC 31.4 L RDW Std Deviation 49.3 H RDW Coeff of Clarissa 13.2 Plt Count 231 MPV 10.6 H Immature Gran % (Auto) 0.4 Neut % (Auto) 82.8 Lymph % (Auto) 4.8 [place] % (Auto) 9.1 Eos % (Auto) 2.7 Baso % (Auto) 0.2 Immature Gran # (Auto) 0.04 H Neut # (Auto) 8.02 H Lymph # (Auto) 0.46 L [place] # (Auto) 0.88 H Eos # (Auto) 0.26 Baso # (Auto) 0.02 PT 12.4 H INR 1.2 H APTT PTT Ratio Sodium Potassium Chloride Carbon Dioxide Anion Gap BUN Creatinine Est Cr Clr Drug Dosing Est GFR ( Amer) Est GFR (Non-Af Amer) BUN/Creatinine Ratio Glucose POC Glucose 136 H Estimat Average Glucose Hemoglobin A1c Lactate Calcium Total Bilirubin AST ALT Alkaline Phosphatase Troponin I Total Protein Albumin Globulin Albumin/Globulin Ratio 09/26/19 09/26/19 09/26/19 05:47 05:47 07:46 WBC RBC Hgb Hct MCV MCH MCHC RDW Std Deviation RDW Coeff of Clarissa Plt Count MPV Immature Gran % (Auto) Neut % (Auto) Lymph % (Auto) [place] % (Auto) Eos % (Auto) Baso % (Auto) Immature Gran # (Auto) Neut # (Auto) Lymph # (Auto) [place] # (Auto) Eos # (Auto) Baso # (Auto) PT INR APTT PTT Ratio Sodium 139 Potassium 3.3 L Chloride 107 Carbon Dioxide 26 Anion Gap 6.0 BUN 25 H Creatinine 1.22 Est Cr Clr Drug Dosing 66.4 Est GFR ( Amer) 68.7 Est GFR (Non-Af Amer) 59.3 BUN/Creatinine Ratio 20.6 H Glucose 85 POC Glucose 84 Estimat Average Glucose 217 Hemoglobin A1c 9.2 H Lactate Calcium 8.2 L Total Bilirubin 1.1 H AST 28 ALT 22 Alkaline Phosphatase 234 H Troponin I Total Protein 6.4 Albumin 2.4 L Globulin 4.0 Albumin/Globulin Ratio 0.6 L 09/26/19 09/26/19 09/26/19 10:23 11:18 16:39 WBC RBC Hgb Hct MCV MCH MCHC RDW Std Deviation RDW Coeff of Clarissa Plt Count MPV Immature Gran % (Auto) Neut % (Auto) Lymph % (Auto) [place] % (Auto) Eos % (Auto) Baso % (Auto) Immature Gran # (Auto) Neut # (Auto) Lymph # (Auto) [place] # (Auto) Eos # (Auto) Baso # (Auto) PT INR APTT PTT Ratio Sodium Potassium Chloride Carbon Dioxide Anion Gap BUN Creatinine Est Cr Clr Drug Dosing Est GFR ( Amer) Est GFR (Non-Af Amer) BUN/Creatinine Ratio Glucose POC Glucose 94 171 H Estimat Average Glucose Hemoglobin A1c Lactate Calcium Total Bilirubin AST ALT Alkaline Phosphatase Troponin I < 0.015 Total Protein Albumin Globulin Albumin/Globulin Ratio 09/26/19 18:57 WBC RBC Hgb Hct MCV MCH MCHC RDW Std Deviation RDW Coeff of Clarissa Plt Count MPV Immature Gran % (Auto) Neut % (Auto) Lymph % (Auto) [place] % (Auto) Eos % (Auto) Baso % (Auto) Immature Gran # (Auto) Neut # (Auto) Lymph # (Auto) [place] # (Auto) Eos # (Auto) Baso # (Auto) PT INR APTT PTT Ratio Sodium Potassium Chloride Carbon Dioxide Anion Gap BUN Creatinine Est Cr Clr Drug Dosing Est GFR ( Amer) Est GFR (Non-Af Amer) BUN/Creatinine Ratio Glucose POC Glucose Estimat Average Glucose Hemoglobin A1c Lactate Calcium Total Bilirubin AST ALT Alkaline Phosphatase Troponin I < 0.015 Total Protein Albumin Globulin Albumin/Globulin Ratio PG Care Time/CCT Total # of Minutes Spent Total Time Spent with Patient: Total time spent is greater than 50% in coordination of care (as documented) at patient's floor/unit and/or counseling patient: Coding Level of Care Code None Diagnoses Diabetic ulcer of left foot E11.621; L97.421 Diabetes mellitus type: type 2 Diabetic foot ulcer location: heel Non-pressure ulcer stage: limited to breakdown of skin Diabetic peripheral neuropathy associated with type 2 diabetes mellitus E11.42 Idiopathic polyneuropathy G60.9 CAD in [place] artery I25.10 PAD (peripheral artery disease) I73.9 CHF (congestive heart failure) I50.33 Heart failure chronicity: acute on chronic Heart failure type: diastolic Ischemic cardiomyopathy I25.5 Diabetes type 2, uncontrolled E11.649 Coma presence: without coma Glycemic state: with hypoglycemia Chronic kidney disease, stage III (moderate) N18.3 Hyperlipidemia E78.5 Hypokalemia E87.6 (1) Diabetic ulcer of left foot Diabetes mellitus type: type 2 Diabetic foot ulcer location: heel Non- pressure ulcer stage: limited to breakdown of skin Qualified Code(s): E11.621 - Type 2 diabetes mellitus with foot ulcer; L97.421 - Non-pressure chronic ulcer of left heel and midfoot limited to breakdown of skin (2) CHF (congestive heart failure) Heart failure chronicity: acute on chronic Heart failure type: diastolic Qualified Code(s): I50.33 - Acute on chronic diastolic (congestive) heart failure (3) Diabetes type 2, uncontrolled Coma presence: without coma Glycemic state: with hypoglycemia Qualified Code(s): E11.649 - Type 2 diabetes mellitus with hypoglycemia without coma
[2019-09-26] MEDS: ATORVASTATIN 40 MG TAB PO SCH (20:22)
[2019-09-27 06:09] LABS: Basophils # (auto) 0.02 K/uL (0-0.2); Basophils % (auto) 0.2 %; Eosinophils # (auto) 0.63 K/uL (0-0.5); Eosinophils % (auto) 7.6 %; Hematocrit (blood only) 36.5 % (42-52); Hemoglobin 11.6 g/dL (14.0-18.0); Immature Granulocytes # (auto) 0.03 K/uL (0.00-0.02); Immature Granulocytes % (auto) 0.4 %; Lymphocytes # (auto) 0.38 K/uL (1.2-3.4); Lymphocytes % (auto) 4.6 %; Mean Corpuscular Hemoglobin 31.9 pg (25-34); Mean Corpuscular Hgb Conc 31.8 g/dL (32-36); Mean Corpuscular Volume 100.3 fL (80-100); Mean Platelet Volume 10.4 fL (7.4-10.4); Monocytes # (auto) 0.82 K/uL (0.11-0.59); Monocytes % (auto) 9.9 %; Neutrophils % (auto) 77.3 %; Platelet Count 232 K/uL (130-400); RDW Coefficient of Variation 13.2 % (11.5-14.5); Red Blood Count 3.64 M/uL (4.7-6.1); White Blood Count 8.28 K/uL (4.8-10.8)
[2019-09-27] MEDS: FUROSEMIDE 40 MG in SYRINGE 0 ML IV SCH (06:25)
[2019-09-27] MEDS: PIPERACILLIN/TAZOBACTAM 3.375 GM in DEXTROSE 5% 100 ML IV SCH ×3 (06:25→21:29)
[2019-09-27 06:26] LABS: INR 1.1 (0.9-1.1); Prothrombin Time 11.9 Seconds (9.0-12.0)
[2019-09-27 06:50] LABS: Albumin Level 2.4 gm/dl (3.4-5.0); BUN Creatinine Ratio 15.4 (10-20); Calcium 8.3 mg/dl (8.5-10.1); Creatinine Clr Calc Pharmacy 43.1 ml/min; Est GFR (African American) 40.5; Est GFR (Non-African American) 34.9; Magnesium 1.8 mg/dl (1.8-2.4); Potassium 3.9 mmol/L (3.5-5.1)
[2019-09-27 06:55] LABS: Albumin Globulin Ratio 0.6 (0.9-2); Bilirubin,Total 0.7 mg/dl (0.2-1); Globulin 4.2 gm/dl (2.5-4.0); Total Protein 6.6 gm/dl (6.4-8.2)
[2019-09-27] MEDS: INSULIN GLARGINE SOLOSTAR 100 UNITS/ML 3 ML PEN SC SCH (08:17)
[2019-09-27] MEDS: CLOPIDOGREL BISULFATE 75 MG TAB PO SCH (08:17)
[2019-09-27] MEDS: CEROVITE ADV FORMULA TAB PO SCH (08:17)
[2019-09-27] MEDS: ASPIRIN 81 MG ECTAB PO SCH (08:17)
[2019-09-27] MEDS: INSULIN ASPART 100 UNITS/ML 3 ML PEN SC SCH ×4 (08:26→21:27)
--- NOTE | 2019-09-27 08:32 | Wound Consultation ---
Date of Consultation September 26, 2019 Assessment & Plan (1) Diabetic ulcer of left foot: This is a 69-year-old male with diabetic foot ulcer of the left foot and underlying cellulitis. No debridement was performed as patient was on his way for MRI. After MRI will be dressed with Aquacel Ag. Continue antibiotics. We will continue to follow. Thank you for limited to spent in the care of this patient. Please not hesitate to call with any questions. (2) Cellulitis of foot, left: History of Present Illness Reason for Consultation: Diabetic foot ulcer Attending Physician: Donny Vargas History of Present Illness This is a 69-year-old male who is well-known to the wound clinic with a past medical history including type 2 diabetes mellitus, CAD with a history of an STEMI, CKD stage III, peripheral neuropathy, neurogenic bladder, idiopathic polyneuropathy, peripheral vascular disease, CHF, peripheral arterial disease, macrocytic anemia, mixed heart failure, vitamin D deficiency, BPH, dyslipidemia and recurrent UTIs presents the emergency department with bleeding from his left heel. Patient has been treated for diabetic foot ulcers in the past. He is currently wearing his apex diabetic shoes. He denies walking barefoot. Patient denies any traumas. Patient states his diabetes has been better however he does admit he does not take daily blood sugars. He denies fevers or chills. Patient seen at the bedside as he is prepping to go to MRI. Allergies Allergy/AdvReac Type Severity Reaction Status Date / Time poliomyelitis vaccine, live Allergy Unknown Unknown Verified 09/25/19 23:57 oral Home Medications Home Medications Medication Instructions Recorded Confirmed Type aspirin 81 mg tablet,delayed 81 mg PO DAILY 03/02/18 09/25/19 History release atorvastatin 40 mg tablet 40 mg PO HS tab 03/02/18 09/25/19 History multivitamin with minerals 1 tab PO DAILY 09/17/18 09/25/19 History furosemide 40 mg tablet 40 mg PO DAILY #90 tab 02/02/19 09/25/19 Rx clopidogrel 75 mg tablet 75 mg PO DAILY #30 tab 04/08/19 09/25/19 Rx blood sugar diagnostic #10 ea 04/15/19 07/20/19 History lisinopril 2.5 mg tablet 2.5 mg PO DAILY #30 tab 07/28/19 09/25/19 Rx Lantus U-100 Insulin 28 units SC QAM 09/25/19 09/25/19 History Patient History Medical History Abscess Abscess (Chronic) Acute blood loss anemia Acute blood loss anemia (Acute) Acute renal insufficiency Acute renal insufficiency (Acute) ATN (acute tubular necrosis) ATN (acute tubular necrosis) (Chronic) CAD in [place] artery (Acute) Chronic ulcer of left heel (Acute) Cognitive disorder (Acute) Diabetes mellitus with diabetic polyneuropathy (Acute) DM II (diabetes mellitus, type II), controlled (Chronic) Elevated serum creatinine (Acute) Foot swelling (Acute) Gait disturbance (Acute) Heel ulcer (Acute) Hematuria (Acute) HTN (hypertension) (Chronic) Hydronephrosis (Chronic) Hypomagnesemia (Acute) Hypoxia (Inactive) Idiopathic polyneuropathy (Acute) Incomplete bladder emptying (Acute) Left foot infection (Acute) MSSA (methicillin susceptible Staphylococcus aureus) (Chronic) Neurogenic bladder (Acute) Nocturia (Acute) Osteomyelitis (Chronic) Peripheral neuropathy (Acute) Peripherally inserted central catheter in place (Chronic) PICC (peripherally inserted central catheter) in place Preop examination Recurrent UTI (Chronic) Renal insufficiency (Acute) Sepsis Sepsis (Chronic) Subsequent non-ST elevation (NSTEMI) myocardial infarction (Acute) UTI (urinary tract infection) due to urinary indwelling catheter (Inactive) Yeast dermatitis (Chronic) Surgical History H/O oral surgery History of tonsillectomy Family History Other No pertinent family history Social History Preferred Language: Japanese Communication Ability: Effective Visual Impairment: No 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 Beliefs That Will Affect Care: None marital status: Single Current Living Situation: Alone Current Living Situation Comment: lives alone in condo current occupational status: retired Other Information That Helps Us Care for You: No Feels Safe at Home: Yes Safety Concerns: Feels Safe At This Time Smoking Status: Never smoker Second Hand Exposure: No ; Hx Alcohol Use: No Hx Substance Use: No Review of Systems Review of Systems: All systems reviewed & are unremarkable except as noted in HPI & below Physical Exam Constitutional: WD/WN, vitals as above Eyes: PERRL, conjunctivae normal, anicteric sclerae ENMT: external ear and nose normal, oropharynx normal Ears: no hearing impairment Skin: Wound measuring 6.5 x 12.8 x 0.2 cm. Wound is covered with fibrin and slough. Periwound is sloughing off. There is a large amount of drainage and foul odor. Neurologic: awake; not confused Psychiatric: A+Ox3, euthymic affect Results & Data Vital Signs (Past 12 Hours) Vital Signs Temp Pulse Pulse Resp BP Pulse Ox 09/27/19 07:12 81 09/27/19 06:49 37.0 C 82 20 110/62 92 09/27/19 03:52 37.3 C 100 H 20 119/70 93 09/27/19 00:50 92 H 09/26/19 23:49 36.7 C 101 H 20 115/62 92 Diagnostic Findings X-ray of the left foot shows no radiographic evidence for osteomyelitis, diffuse soft tissue swelling and focal skin ulceration of the posterior heel. PG Care Time/CCT Total # of Minutes Spent Total Time Spent with Patient: Total time spent is greater than 50% in coordination of care (as documented) at patient's floor/unit and/or counseling patient: Coding Level of Care Code 45060 Inpt Consult Level 3 Diagnoses Diabetic ulcer of left foot E11.621; L97.421 Diabetes mellitus type: type 2 Diabetic foot ulcer location: heel Non-pressure ulcer stage: limited to breakdown of skin Cellulitis of foot, left L03.116 (1) Diabetic ulcer of left foot Diabetes mellitus type: type 2 Diabetic foot ulcer location: heel Non- pressure ulcer stage: limited to breakdown of skin Qualified Code(s): E11.621 - Type 2 diabetes mellitus with foot ulcer; L97.421 - Non-pressure chronic ulcer of left heel and midfoot limited to breakdown of skin
--- NOTE | 2019-09-27 10:52 | Ultrasound Report ---
BILATERAL LOWER EXTREMITY VENOUS DOPPLER HISTORY: Lower extremity edema; eval DVT COMPARISON STUDY: None. FINDINGS: There is normal compressibility, flow, and augmentation within the bilateral lower extremit y deep venous systems. Bilateral lower extremity subcutaneous edema. Hypoechoic and mildly enlarged l eft inguinal lymph nodes measuring up to 1.6 x 1.5 cm. IMPRESSION: No DVT within the right or left lower extremity. Mild left inguinal lymphadenopathy. ACT 112: Negative or not required by law. Electronically signed by: Wale Cronin M.D. 09/27/2019 10:51 AM
[2019-09-27] MEDS ORDERED: VANCOMYCIN TROUGH ONE (11:30)
--- NOTE | 2019-09-27 12:52 | Pharmacy Report ---
Pharmacy Abx Dose Progress Nt - Date of Service September 27, 2019 - Pharmacy Dosing Scope The patient is currently receiving the following antimicrobial agents per Pharmacy consult: Vancomycin 1,250 mg IV every 12 hours + Zosyn 3.375g IV Q8hrs - Objective Vital Signs (Past 12hrs): Vital Signs Temp Pulse Pulse Resp BP BP Pulse Ox 09/27/19 11:43 36.7 C 82 18 126/70 95 09/27/19 07:12 81 09/27/19 06:49 37.0 C 82 20 110/62 92 09/27/19 03:52 37.3 C 100 H 20 119/70 93 09/27/19 00:50 92 H Lab Results (24hrs): Laboratory Tests (24 Hours) 09/27/19 09/27/19 09/27/19 11:44 05:55 05:55 WBC 8.28 Neut # (Auto) 6.40 Creatinine 1.89 H D Est Cr Clr Drug Dosing 43.1 Vancomycin Trough 23.2 Micro Results: 09/25/19 22:40 Gram Stain - Final Foot,Left - Risk Factors for Resistance * History of infection with a multidrug-resistant organism - Assessment & Plan Assessment 69 year old with diabetic ulcer of left foot. History of recurrent diabetic foot infections. Foot xray negative for osteomyelitis. Pt on day #2 of vancomycin and zosyn. Foot cx's and blood cultures are negative to date Plan Vancomycin IV * Patient met criteria for vancomycin AUC dosing nomogram- started dosing this method yesterday * AUC/MAYNOR is the preferred PK/PD target for vancomycin * Scr increased from 1.22 --> 1.89 mg/dl. Checked a vanco trough because likely to accumulate with impaired renal function. * Trough level of 23.2 mcg/mL is supratherapeutic * Based on re-calculated PK will continue dose of 1,250 mg but lengthen dosing interval from Q12h to Q18h to allow for greater excretion. This is similar to dosing used in 12/2017 admission. * Target AUC/MAYNOR = 400-600 * Will plan to re-check trough to ensure therapeutic levels and to assess for accumulation. Date/time TBD based on Scr trends Piperacillin/tazobactam * 3.375 gm iv q 8 hrs - appropriate for CrCl >20 ml/min Pharmacy will continue to follow and will adjust dose/frequency as necessary. Thank you.
[2019-09-27] MEDS: HEPARIN SOD 5,000 UNIT/0.5 ML VIAL SQ SCH ×2 (14:49→21:30)
[2019-09-27] MEDS ORDERED: VANCOMYCIN HCL 1,250 MG in SODIUM CHLORIDE 0.9% 250 ML IV SCH (18:00)
--- NOTE | 2019-09-27 19:59 | Hospitalist Progress Note ---
Date of Service September 27, 2019 Assessment & Plan (1) Acute kidney injury: 2nd to lasix/over-diuresis? 2nd to IV vancomycin? combo? other? STOP lasix STOP KORI low-threshold for changing IV vanco to doxy or dapto BMP in am (2) Stage III pressure ulcer of left heel: with significant infection zosyn/vanco wound care nurse & provider on consult may need surgery consult MRI left heel WITHOUT osteomyelitis if ulcer has poor wound healing consider DR Aden consult as patient has PAD (3) Diabetic ulcer of left foot: Cont vancomycin IV and Zosyn IV. Consulted wound care and wound care provider. May need orthopedics if extensive debridement is needed. as above in "pressure ulcer" (4) Diabetic peripheral neuropathy associated with type 2 diabetes mellitus: Diabetic peripheral neuropathy/idiopathic polyneuropathy- Patient does not appear to be on any neuropathic medications at this time. He undoubtedly has significant neuropathy, as he is little or no discomfort in this significant left heel lesion. (5) Idiopathic polyneuropathy: See above (6) CAD in [place] artery: Continue aspirin 81 mg daily, clopidogrel 75 mg daily. Hold lisinopril 2.5 mg daily. No ischemic symptoms at this time. (7) PAD (peripheral artery disease): s/p stent in left leg by Dr Aden in 2019 arterial duplex from 06/2019 noted if poor wound healing continues in left foot then re-consult Dr Aden (8) CHF (congestive heart failure): stop IV lasix due to MACY dopplers of legs obtained due to copious edema -- NEG for DVT either leg (9) Ischemic cardiomyopathy: last echo in system 09/2018 EF preserved at that time (10) Diabetes type 2, uncontrolled: cont basal-bolus insulin adjust as needed control improving (11) Chronic kidney disease, stage III (moderate): Creatinine 1.33 upon admission, with range 1.22-1.54. now with superimposed MACY BMP in am (12) Hyperlipidemia: Continue atorvastatin 40 mg at bedtime (13) Hypokalemia: replaced/resolved (14) DVT prophylaxis: heparin SC 5000 TID will need PT/OT Admission and Anticipated Discharge Date Admission Date: September 26, 2019 Subjective patient without complaints. feels good with normal appetite, no dyspnea, no pain in any location. tele normal overnight. Review of Systems Constitutional: no fever and no chills Respiratory: no cough and no dyspnea Cardiovascular: no chest pain, no dyspnea and no orthopnea Gastrointestinal: no abdominal pain and no diarrhea/loose stools Physical Exam Constitutional: no acute distress and no altered mental status ENMT: external ear and nose normal, oropharynx normal Respiratory: normal respiratory effort, lungs clear to auscultation Cardiovascular: Rate/Rhythm: regular rate and regular rhythm Heart Sounds: normal S1 and normal S2; no murmur Vessels: posterior tibial pulses present and dorsalis pedis pulses present; no JVD Extremities: + edema (2+ b/l ) Gastrointestinal (Abdomen): normal bowel sounds, soft, nontender, no hepatosplenomegaly Skin: left foot - heel - foul smell improved today; large amount of devital ized tissue, large ulceration; central necrotic area; no visible bone Results & Data ([facility]) Vital Signs (Past 12 Hours) Vital Signs Temp Pulse Pulse Resp BP Pulse Ox 09/27/19 19:40 36.6 C 84 20 132/81 95 09/27/19 15:12 78 09/27/19 11:43 36.7 C 82 18 126/70 95 Laboratory Results Laboratory Results - last 24 hr 09/26/19 09/27/19 09/27/19 20:18 05:55 05:55 WBC 8.28 RBC 3.64 L Hgb 11.6 L Hct 36.5 L MCV 100.3 H MCH 31.9 MCHC 31.8 L RDW Std Deviation 48.0 H RDW Coeff of Clarissa 13.2 Plt Count 232 MPV 10.4 Immature Gran % (Auto) 0.4 Neut % (Auto) 77.3 Lymph % (Auto) 4.6 Stark % (Auto) 9.9 Eos % (Auto) 7.6 Baso % (Auto) 0.2 Immature Gran # (Auto) 0.03 H Neut # (Auto) 6.40 Lymph # (Auto) 0.38 L Stark # (Auto) 0.82 H Eos # (Auto) 0.63 H Baso # (Auto) 0.02 PT 11.9 INR 1.1 Sodium Potassium Chloride Carbon Dioxide Anion Gap BUN Creatinine Est Cr Clr Drug Dosing Est GFR ( Amer) Est GFR (Non-Af Amer) BUN/Creatinine Ratio Glucose POC Glucose 276 H Calcium Magnesium Total Bilirubin AST ALT Alkaline Phosphatase Total Protein Albumin Globulin Albumin/Globulin Ratio Vancomycin Trough 03/09/27/19 09/27/19 05:55 07:27 11:17 WBC RBC Hgb Hct MCV MCH MCHC RDW Std Deviation RDW Coeff of Clarissa Plt Count MPV Immature Gran % (Auto) Neut % (Auto) Lymph % (Auto) Stark % (Auto) Eos % (Auto) Baso % (Auto) Immature Gran # (Auto) Neut # (Auto) Lymph # (Auto) Stark # (Auto) Eos # (Auto) Baso # (Auto) PT INR Sodium 137 Potassium 3.9 D Chloride 105 Carbon Dioxide 27 Anion Gap 5.0 BUN 29 H Creatinine 1.89 H D Est Cr Clr Drug Dosing 43.1 Est GFR ( Amer) 40.5 Est GFR (Non-Af Amer) 34.9 BUN/Creatinine Ratio 15.4 Glucose 139 H POC Glucose 141 H 257 H Calcium 8.3 L Magnesium 1.8 Total Bilirubin 0.7 AST 30 ALT 25 Alkaline Phosphatase 230 H Total Protein 6.6 Albumin 2.4 L Globulin 4.2 H Albumin/Globulin Ratio 0.6 L Vancomycin Trough 09/27/19 09/27/19 11:44 16:12 WBC RBC Hgb Hct MCV MCH MCHC RDW Std Deviation RDW Coeff of Clarissa Plt Count MPV Immature Gran % (Auto) Neut % (Auto) Lymph % (Auto) Stark % (Auto) Eos % (Auto) Baso % (Auto) Immature Gran # (Auto) Neut # (Auto) Lymph # (Auto) Stark # (Auto) Eos # (Auto) Baso # (Auto) PT INR Sodium Potassium Chloride Carbon Dioxide Anion Gap BUN Creatinine Est Cr Clr Drug Dosing Est GFR ( Amer) Est GFR (Non-Af Amer) BUN/Creatinine Ratio Glucose POC Glucose 147 H Calcium Magnesium Total Bilirubin AST ALT Alkaline Phosphatase Total Protein Albumin Globulin Albumin/Globulin Ratio Vancomycin Trough 23.2 PG Care Time/CCT Total # of Minutes Spent Total Time Spent with Patient: Total time spent is greater than 50% in coordination of care (as documented) at patient's floor/unit and/or counseling patient: Coding Level of Care Code 49070 Subseq Hosp Care Lvl 2 Diagnoses Acute kidney injury N17.9 Stage III pressure ulcer of left heel L89.623 Diabetic ulcer of left foot E11.621; L97.421 Diabetes mellitus type: type 2 Diabetic foot ulcer location: heel Non-pressure ulcer stage: limited to breakdown of skin Diabetic peripheral neuropathy associated with type 2 diabetes mellitus E11.42 Idiopathic polyneuropathy G60.9 CAD in [place] artery I25.10 PAD (peripheral artery disease) I73.9 CHF (congestive heart failure) I50.33 Heart failure chronicity: acute on chronic Heart failure type: diastolic Ischemic cardiomyopathy I25.5 Diabetes type 2, uncontrolled E11.649 Coma presence: without coma Glycemic state: with hypoglycemia Chronic kidney disease, stage III (moderate) N18.3 Hyperlipidemia E78.5 Hypokalemia E87.6 DVT prophylaxis Z29.9 (1) Diabetic ulcer of left foot Diabetes mellitus type: type 2 Diabetic foot ulcer location: heel Non- pressure ulcer stage: limited to breakdown of skin Qualified Code(s): E11.621 - Type 2 diabetes mellitus with foot ulcer; L97.421 - Non-pressure chronic ulcer of left heel and midfoot limited to breakdown of skin (2) CHF (congestive heart failure) Heart failure chronicity: acute on chronic Heart failure type: diastolic Qualified Code(s): I50.33 - Acute on chronic diastolic (congestive) heart failure (3) Diabetes type 2, uncontrolled Coma presence: without coma Glycemic state: with hypoglycemia Qualified Code(s): E11.649 - Type 2 diabetes mellitus with hypoglycemia without coma
[2019-09-27] MEDS: ATORVASTATIN 40 MG TAB PO SCH (21:31)
[2019-09-28] MEDS: PIPERACILLIN/TAZOBACTAM 3.375 GM in DEXTROSE 5% 100 ML IV SCH ×3 (05:53→21:27)
[2019-09-28] MEDS: HEPARIN SOD 5,000 UNIT/0.5 ML VIAL SQ SCH ×3 (05:53→21:25)
[2019-09-28 06:06] LABS: Basophils # (auto) 0.02 K/uL (0-0.2); Basophils % (auto) 0.3 %; Eosinophils # (auto) 0.63 K/uL (0-0.5); Eosinophils % (auto) 9.5 %; Hematocrit (blood only) 35.5 % (42-52); Hemoglobin 11.5 g/dL (14.0-18.0); Immature Granulocytes # (auto) 0.05 K/uL (0.00-0.02); Immature Granulocytes % (auto) 0.8 %; Lymphocytes % (auto) 7.5 %; Mean Corpuscular Hemoglobin 31.9 pg (25-34); Mean Corpuscular Hgb Conc 32.4 g/dL (32-36); Mean Corpuscular Volume 98.6 fL (80-100); Mean Platelet Volume 10.8 fL (7.4-10.4); Monocytes # (auto) 0.75 K/uL (0.11-0.59); Monocytes % (auto) 11.3 %; Neutrophils # (auto) 4.68 K/uL (1.4-6.5); Neutrophils % (auto) 70.6 %; Platelet Count 244 K/uL (130-400); RDW Coefficient of Variation 13.3 % (11.5-14.5); RDW Standard Deviation 48.3 fL (36.4-46.3); White Blood Count 6.63 K/uL (4.8-10.8)
[2019-09-28 06:21] LABS: INR 1.1 (0.9-1.1); Prothrombin Time 11.6 Seconds (9.0-12.0)
[2019-09-28 06:37] LABS: Albumin Level 2.5 gm/dl (3.4-5.0); BUN Creatinine Ratio 17.8 (10-20); Calcium 8.4 mg/dl (8.5-10.1); Creatinine Clr Calc Pharmacy 35.8 ml/min; Est GFR (African American) 32.6; Est GFR (Non-African American) 28.1; Potassium 3.8 mmol/L (3.5-5.1)
[2019-09-28 06:40] LABS: Albumin Globulin Ratio 0.6 (0.9-2); Bilirubin,Total 0.6 mg/dl (0.2-1); Globulin 4.1 gm/dl (2.5-4.0); Total Protein 6.6 gm/dl (6.4-8.2)
[2019-09-28] MEDS: INSULIN GLARGINE SOLOSTAR 100 UNITS/ML 3 ML PEN SC SCH (08:52)
[2019-09-28] MEDS: INSULIN ASPART 100 UNITS/ML 3 ML PEN SC SCH ×4 (08:52→21:25)
[2019-09-28] MEDS: ASPIRIN 81 MG ECTAB PO SCH (08:54)
[2019-09-28] MEDS: CEROVITE ADV FORMULA TAB PO SCH (08:54)
[2019-09-28] MEDS: CLOPIDOGREL BISULFATE 75 MG TAB PO SCH (08:54)
--- NOTE | 2019-09-28 13:32 | Vascular Medicine Consultation ---
Date of Consultation September 28, 2019 Assessment & Plan (1) Diabetic ulcer of left foot: 2. PAD -known restenosis of distal SFA stent 3. Acute renal insufficiency 4. Poorly controlled diabetes 5. Coronary artery disease post prior inferior CT 6. Chronic diastolic heart failure Patient here with recurrent extensive, deep heel ulceration and cellulitis. Reviewed recent vascular testing - remarkable for severe in-stent restenosis involving left distal SFA stent. Tibials patent to foot. Disease appears amenable to endovascular intervention. High risk wound for limb loss and recommend repeat angiogram and endovascular intervention at some point. Timing complicated by acute renal insufficiency following diuretics/antibiotics. If MACY improved could consider procedure on Thursday or Thursday. Can also arrange for procedure to be done as outpatient if remaining inpatient medical issues resolved prior to stable renal function. Continue home aspirin, clopidogrel and statin. Will continue to follow. Thank you for allowing us to participate in the care of this patient. Please c ontact with any questions. History of Present Illness Attending Physician: Donny Vargas History of Present Illness Mr. Patel is a 69-year-old man with a history of peripheral arterial disease post left distal SFA stenting 11/2018 currently admitted with recurrent diabetic foot ulcer/infection involving his left heel. Prior medical history remarkable for poorly controlled type 2 diabetes, stage III chronic kidney disease, coronary artery disease post inferior CT in February 2017 with transient moderate LV dysfunction now resolved, chronic diastolic heart failure, hypertension, hyperlipidemia. Lifelong non- smoker. Patient was initially seen at the wound care center back in October 2018 in the setting of Left lower extremity heel wound for at least 6 months. Wound progress static despite antibiotics, standard wound therapy. Underwent stenting of focal distal SFA stenosis with Tigris 6 x 60 mm stent with good three-vessel runoff. Had eventual wound healing and discharge from wound clinic in February 2019. Last seen by me in June 2019. At that time wound healed, no claudication but repeat duplex showed greater than 80% in-stent restenosis. Reports new ulcer on left heel for last 3 weeks. Denies any preceding trauma. No fevers or chills. Presented to ED due to worsening drainage. Started on broad-spectrum antibiotics with vancomycin, Zosyn. Cultures no growth to date. MRI negative for osteomyelitis. Noted to have bilateral lower extremity swelling and started on IV diuretics. Bilateral duplex negative for DVT. Recent vascular testing: Arterial duplex 06/2019: >80% restenosis in distal SFA stent, tibials patent. JADEN 0.86 Angiogram/intervention 11/2018: 80% focal left distal SFA with three-vessel runoff, mild to moderate right SFA disease. Tigris 6 x 60 stent to left distal SFA/popliteal Venous reflux ultrasound 08/2018: No pathologic superficial reflux. Right-sided deep vein reflux. No evidence of DVT. Lower extremity arterial duplex 08/2018: Right JADEN 1.02, left 0.89. Right less than 49% stenosis, left lower extremity with 75-99% stenosis in left distal SFA with dampened distal waveforms. Allergies Allergy/AdvReac Type Severity Reaction Status Date / Time poliomyelitis vaccine, live Allergy Unknown Unknown Verified 09/25/19 23:57 oral Home Medications Home Medications Medication Instructions Recorded Confirmed Type aspirin 81 mg tablet,delayed 81 mg PO DAILY 03/02/18 09/25/19 History release atorvastatin 40 mg tablet 40 mg PO HS tab 03/02/18 09/25/19 History multivitamin with minerals 1 tab PO DAILY 09/17/18 09/25/19 History furosemide 40 mg tablet 40 mg PO DAILY #90 tab 02/02/19 09/25/19 Rx clopidogrel 75 mg tablet 75 mg PO DAILY #30 tab 04/08/19 09/25/19 Rx blood sugar diagnostic #10 ea 04/15/19 07/20/19 History lisinopril 2.5 mg tablet 2.5 mg PO DAILY #30 tab 07/28/19 09/25/19 Rx Lantus U-100 Insulin 28 units SC QAM 09/25/19 09/25/19 History Patient History Medical History Abscess Abscess (Chronic) Acute blood loss anemia Acute blood loss anemia (Acute) Acute renal insufficiency Acute renal insufficiency (Acute) ATN (acute tubular necrosis) ATN (acute tubular necrosis) (Chronic) CAD in [place] artery (Acute) Chronic ulcer of left heel (Acute) Cognitive disorder (Acute) Diabetes mellitus with diabetic polyneuropathy (Acute) DM II (diabetes mellitus, type II), controlled (Chronic) Elevated serum creatinine (Acute) Foot swelling (Acute) Gait disturbance (Acute) Heel ulcer (Acute) Hematuria (Acute) HTN (hypertension) (Chronic) Hydronephrosis (Chronic) Hypomagnesemia (Acute) Hypoxia (Inactive) Idiopathic polyneuropathy (Acute) Incomplete bladder emptying (Acute) Left foot infection (Acute) MSSA (methicillin susceptible Staphylococcus aureus) (Chronic) Neurogenic bladder (Acute) Nocturia (Acute) Osteomyelitis (Chronic) Peripheral neuropathy (Acute) Peripherally inserted central catheter in place (Chronic) PICC (peripherally inserted central catheter) in place Preop examination Recurrent UTI (Chronic) Renal insufficiency (Acute) Sepsis Sepsis (Chronic) Subsequent non-ST elevation (NSTEMI) myocardial infarction (Acute) UTI (urinary tract infection) due to urinary indwelling catheter (Inactive) Yeast dermatitis (Chronic) Surgical History H/O oral surgery History of tonsillectomy Family History Other No pertinent family history Social History Preferred Language: Occitan Communication Ability: Effective Visual Impairment: No Limitations Appeals Analyst Required: No Beliefs That Will Affect Care: None marital status: Single Current Living Situation: Alone Current Living Situation Comment: lives [facility] current occupational status: retired Other Information That Helps Us Care for You: No Feels Safe at Home: Yes Safety Concerns: Feels Safe At This Time Smoking Status: Never smoker Second Hand Exposure: No ; Hx Alcohol Use: No Hx Substance Use: No Review of Systems Review of Systems: All systems reviewed & are unremarkable except as noted in HPI & below Physical Exam Physical Exam: General: Comfortable, no acute distress Eyes: Sclerae anicteric, extraocular movements intact HENT: Oropharynx clear mucous membranes moist Neck: No JVD Lungs: Clear to auscultation bilaterally, no rhonchi or wheezes Cardiac: Regular rate and rhythm, no murmurs Abdomen: Soft, nontender, nondistended, positive bowel sounds. Neuro: Nonfocal Psych: Alert orient x3, normal affect and mood Extremities/Vascular: -- 2+ radial bilaterally -- 2+ femoral bilaterally --Nonpalpable popliteal pulse on the left --Left foot/ankle freshly dressed no surrounding erythema. Wound consult images of wound reviewed --2+ lower extremity edema to mid henning bilaterally --Scaling of forefoot/toes, diminished capillary refill Results & Data Vital Signs (Past 12 Hours) Vital Signs Temp Pulse Pulse Resp BP BP Pulse Ox 03/25/20 11:29 98.1 F 85 20 146/73 H 96 09/28/19 08:00 75 09/28/19 07:25 98.1 F 78 18 110/67 96 09/28/19 04:00 98.1 F 72 18 102/63 94 PG Care Time/CCT Total # of Minutes Spent Total Time Spent with Patient: Total time spent is greater than 50% in coordination of care (as documented) at patient's floor/unit and/or counseling patient: Coding Level of Care Code 02657 Inpt Consult Level 4 Diagnoses Diabetic ulcer of left foot E11.621; L97.421 Diabetes mellitus type: type 2 Diabetic foot ulcer location: heel Non-pressure ulcer stage: limited to breakdown of skin (1) Diabetic ulcer of left foot Diabetes mellitus type: type 2 Diabetic foot ulcer location: heel Non- pressure ulcer stage: limited to breakdown of skin Qualified Code(s): E11.621 - Type 2 diabetes mellitus with foot ulcer; L97.421 - Non-pressure chronic ulcer of left heel and midfoot limited to breakdown of skin
[2019-09-28 16:01] LABS: Creatinine Clr Calc Pharmacy 39.6 ml/min; Est GFR (African American) 36.9; Est GFR (Non-African American) 31.8
--- NOTE | 2019-09-28 17:19 | Hospitalist Progress Note ---
Date of Service September 28, 2019 Assessment & Plan (1) Acute kidney injury: 2nd to lasix/over-diuresis? 2nd to IV vancomycin? combo? other? STOPPED lasix and KORI yestserday Stop the IV vanco since Cr daniel again today recheck Cr again this afternoon then BMP in am check u/a (2) Stage III pressure ulcer of left heel: with significant infection/cellulitis cont zosyn change vanco to daptomycin wound care nurse & provider on consult; appreciate their assistance MRI left heel WITHOUT osteomyelitis Dr Delgado felt ulcer was worse today will consult orthopedics ([facility]) also consult Dr Aden from cardiology due to arterial duplex of LLE a few months ago showing in-stent stenosis; may need intervention (3) Diabetic ulcer of left foot: Cont zosyn; change vanco to daptomycin due to MACY. see above in "stage 3 pressure ulcer" of left heel. wound care nurse, wound care provider, orthopedics, cardiology/vascular on- board. (4) Diabetic peripheral neuropathy associated with type 2 diabetes mellitus: Diabetic peripheral neuropathy/idiopathic polyneuropathy- Patient does not appear to be on any neuropathic medications at this time. Denies any pain. (5) CAD in [place] artery: Continue aspirin 81 mg daily, clopidogrel 75 mg daily. Hold lisinopril 2.5 mg daily due to MCAY. Hold statin due to daptomycin use. (6) PAD (peripheral artery disease): s/p stent in left leg by Dr Aden in 2018 arterial duplex from 06/2019 noted (in-stent stenosis) in light of poor wound healing of the left heel and infection have consulted Dr Aden; intervention of LLE stenotic area? (7) CHF (congestive heart failure): stopped IV lasix due to MACY dopplers of legs obtained due to copious edema -- NEG for DVT either leg clinically is NOT volume overloaded except for LE edema (8) Ischemic cardiomyopathy: last echo in system 09/2018 EF preserved at that time (9) Diabetes type 2, uncontrolled: cont basal-bolus insulin adjust novolog carb ratio follow (10) Chronic kidney disease, stage III (moderate): Creatinine baseline 1.22-1.54 now with superimposed MACY see MACY above cr this afternoon u/a BMP in am (11) Hyperlipidemia: hold atorvastatin due to IV daptomycin use (12) Hypokalemia: replaced/resolved (13) DVT prophylaxis: heparin SC 5000 TID Admission and Anticipated Discharge Date Admission Date: September 26, 2019 Subjective patient w/o any complaints. feels ok. no pain in any location including his left foot. no cp, abd pain, diarrhea, or vomiting. has not been out of bed much. tele wnl. Review of Systems Constitutional: no fever and no chills Respiratory: no cough and no dyspnea Cardiovascular: no chest pain, no dyspnea at rest, no dyspnea on exertion, no orthopnea and no paroxysmal nocturnal dyspnea Gastrointestinal: no abdominal pain, no nausea and no vomiting Physical Exam Constitutional: no acute distress and no altered mental status ENMT: external ear and nose normal, oropharynx normal Respiratory: normal respiratory effort, lungs clear to auscultation Cardiovascular: Rate/Rhythm: regular rate and regular rhythm Heart Sounds: normal S1 and normal S2; no murmur Vessels: posterior tibial pulses present (1+ b/l ) and dorsalis pedis pulses present (1+ b/l ); no JVD Extremities: + edema (2+ b/l -- no change ) Gastrointestinal (Abdomen): normal bowel sounds, soft, nontender, no hepatosplenomegaly Skin: left heel ulcer -- previously debrided today by wound care provider; wound bed pink in many areas but adjacent skin with swelling and erythema; mild purulence throughout; mild odor Results & Data Results & Data ([facility]) Vital Signs (Past 12 Hours) Vital Signs Temp Pulse Pulse Resp BP Pulse Ox 09/28/19 15:46 36.3 C L 86 18 145/79 H 94 09/28/19 15:18 91 H 09/28/19 11:29 36.7 C 85 20 146/73 H 96 09/28/19 08:00 75 09/28/19 07:25 36.7 C 78 18 110/67 96 Laboratory Results Laboratory Results - last 24 hr 09/27/19 09/28/19 09/28/19 20:00 05:23 05:23 WBC 6.63 RBC 3.60 L Hgb 11.5 L Hct 35.5 L MCV 98.6 MCH 31.9 MCHC 32.4 RDW Std Deviation 48.3 H RDW Coeff of Clarissa 13.3 Plt Count 244 MPV 10.8 H Immature Gran % (Auto) 0.8 Neut % (Auto) 70.6 Lymph % (Auto) 7.5 Henry % (Auto) 11.3 Eos % (Auto) 9.5 Baso % (Auto) 0.3 Immature Gran # (Auto) 0.05 H Neut # (Auto) 4.68 Lymph # (Auto) 0.50 L Henry # (Auto) 0.75 H Eos # (Auto) 0.63 H Baso # (Auto) 0.02 PT 11.6 INR 1.1 Sodium Potassium Chloride Carbon Dioxide Anion Gap BUN Creatinine Est Cr Clr Drug Dosing Est GFR ( Amer) Est GFR (Non-Af Amer) BUN/Creatinine Ratio Glucose POC Glucose 186 H Calcium Magnesium Total Bilirubin AST ALT Alkaline Phosphatase Total Protein Albumin Globulin Albumin/Globulin Ratio 09/28/19 09/28/19 09/28/19 05:23 07:43 11:54 WBC RBC Hgb Hct MCV MCH MCHC RDW Std Deviation RDW Coeff of Clarissa Plt Count MPV Immature Gran % (Auto) Neut % (Auto) Lymph % (Auto) Henry % (Auto) Eos % (Auto) Baso % (Auto) Immature Gran # (Auto) Neut # (Auto) Lymph # (Auto) Henry # (Auto) Eos # (Auto) Baso # (Auto) PT INR Sodium 137 Potassium 3.8 Chloride 106 Carbon Dioxide 26 Anion Gap 5.0 BUN 40 H Creatinine 2.26 H D Est Cr Clr Drug Dosing 35.8 Est GFR ( Amer) 32.6 Est GFR (Non-Af Amer) 28.1 BUN/Creatinine Ratio 17.8 Glucose 124 H POC Glucose 122 H 205 H Calcium 8.4 L Magnesium 2.0 Total Bilirubin 0.6 AST 29 ALT 27 Alkaline Phosphatase 227 H Total Protein 6.6 Albumin 2.5 L Globulin 4.1 H Albumin/Globulin Ratio 0.6 L 09/28/19 09/28/19 15:26 16:34 WBC RBC Hgb Hct MCV MCH MCHC RDW Std Deviation RDW Coeff of Clarissa Plt Count MPV Immature Gran % (Auto) Neut % (Auto) Lymph % (Auto) Henry % (Auto) Eos % (Auto) Baso % (Auto) Immature Gran # (Auto) Neut # (Auto) Lymph # (Auto) Henry # (Auto) Eos # (Auto) Baso # (Auto) PT INR Sodium Potassium Chloride Carbon Dioxide Anion Gap BUN Creatinine 2.04 H Est Cr Clr Drug Dosing 39.6 Est GFR ( Amer) 36.9 Est GFR (Non-Af Amer) 31.8 BUN/Creatinine Ratio Glucose POC Glucose 200 H Calcium Magnesium Total Bilirubin AST ALT Alkaline Phosphatase Total Protein Albumin Globulin Albumin/Globulin Ratio wound cx - pending PG Care Time/CCT Total # of Minutes Spent Total Time Spent with Patient: Total time spent is greater than 50% in coordination of care (as documented) at patient's floor/unit and/or counseling patient: Coding Level of Care Code 50620 Subseq Hosp Care Lvl 3 Diagnoses Acute kidney injury N17.9 Stage III pressure ulcer of left heel L89.623 Diabetic ulcer of left foot E11.621; L97.421 Diabetes mellitus type: type 2 Diabetic foot ulcer location: heel Non-pressure ulcer stage: limited to breakdown of skin Diabetic peripheral neuropathy associated with type 2 diabetes mellitus E11.42 CAD in [place] artery I25.10 PAD (peripheral artery disease) I73.9 CHF (congestive heart failure) I50.33 Heart failure chronicity: acute on chronic Heart failure type: diastolic Ischemic cardiomyopathy I25.5 Diabetes type 2, uncontrolled E11.649 Coma presence: without coma Glycemic state: with hypoglycemia Chronic kidney disease, stage III (moderate) N18.3 Hyperlipidemia E78.2 Hyperlipidemia type: mixed hyperlipidemia Hypokalemia E87.6 DVT prophylaxis Z29.9 (1) Diabetic ulcer of left foot Diabetes mellitus type: type 2 Diabetic foot ulcer location: heel Non- pressure ulcer stage: limited to breakdown of skin Qualified Code(s): E11.621 - Type 2 diabetes mellitus with foot ulcer; L97.421 - Non-pressure chronic ulcer of left heel and midfoot limited to breakdown of skin (2) CHF (congestive heart failure) Heart failure chronicity: acute on chronic Heart failure type: diastolic Qualified Code(s): I50.33 - Acute on chronic diastolic (congestive) heart failure (3) Hyperlipidemia Hyperlipidemia type: mixed hyperlipidemia Qualified Code(s): E78.2 - Mixed hyperlipidemia (4) Diabetes type 2, uncontrolled Coma presence: without coma Glycemic state: with hypoglycemia Qualified Code(s): E11.649 - Type 2 diabetes mellitus with hypoglycemia without coma
[2019-09-28 21:57] LABS: Appearance Urine Clear (Clear); Bacteria Urine Automated Negative (Negative); Bilirubin Urine Negative (Negative); Blood Urine Negative (Negative); Color Urine Yellow; Glucose Urine UA Negative (Negative); Ketones Urine Negative (Negative); Leukocyte Esterase Urine Negative (Negative); Nitrite Urine Negative (Negative); Protein Urine 2+ (Negative); Specific Gravity Urine 1.023 (1.000-1.030); Urobilinogen Urine Negative (Negative); pH Urine 5.5 (4.5-7.5)
[2019-09-29] MEDS: HEPARIN SOD 5,000 UNIT/0.5 ML VIAL SQ SCH ×3 (05:57→21:23)
[2019-09-29] MEDS: PIPERACILLIN/TAZOBACTAM 3.375 GM in DEXTROSE 5% 100 ML IV SCH ×3 (05:57→21:22)
[2019-09-29 06:46] LABS: BUN Creatinine Ratio 18.7 (10-20); Calcium 8.7 mg/dl (8.5-10.1); Creatinine Clr Calc Pharmacy 41.5 ml/min; Est GFR (Non-African American) 33.6; Magnesium 2.2 mg/dl (1.8-2.4); Potassium 3.9 mmol/L (3.5-5.1)
[2019-09-29] MEDS: INSULIN ASPART 100 UNITS/ML 3 ML PEN SC SCH ×4 (07:59→21:24)
[2019-09-29] MEDS: ASPIRIN 81 MG ECTAB PO SCH (08:00)
[2019-09-29] MEDS: CEROVITE ADV FORMULA TAB PO SCH (08:00)
[2019-09-29] MEDS: INSULIN GLARGINE SOLOSTAR 100 UNITS/ML 3 ML PEN SC SCH (08:00)
[2019-09-29] MEDS: CLOPIDOGREL BISULFATE 75 MG TAB PO SCH (08:00)
--- NOTE | 2019-09-29 08:48 | Wound Progress Note ---
Date of Service September 28, 2019 Assessment & Plan (1) Diabetic ulcer of left foot: The wound looks worse today. There is more maceration and sloughing of peripheral skin. Wound needed debridement. Using a curette scissors and forceps nonviable skin, subcutaneous tissue, fibrin and slough were removed. Scant bleeding was controlled with pressure. Patient tolerated the procedure well with no complications. This represents non-excisional debridement of less than 20 cm. Wound will be dressed with Aquacel Ag and an ABD to increase absorption. Would recommend an orthopedic surgery consult for possible surgical debridement. I did discuss the patient with Dr. Vargas. We will continue to follow. Subjective Patient seen laying in bed. No new complaints today. Patient is on IV Zosyn. MRI was reviewed and did not show osteomyelitis. Review of Systems Review of Systems: All systems reviewed & are unremarkable except as noted in HPI & below Physical Exam Skin: Wound has deteriorated. Wound is covered with fibrin and slough. Periwound is macerated and sloughing off. There is a foul odor and a large amount of drainage. Neurologic: awake; not confused Psychiatric: A+Ox3, euthymic affect Results & Data Vital Signs (Past 12 Hours) reviewed Diagnostic Findings MRI impression 1. 3.2 x 2.7 cm soft tissue ulcer overlies posterior and inferior aspect of the calcaneus. Deep to the ulcer there is minimal periostitis to the posterior calcaneus which is likely reactive. No definite MRI evidence of osteomyelitis. 2. Extensive subcutaneous and deep tissue edema of the foot and ankle suggest cellulitis, venous stasis or lymphedema. 3. Diffuse atrophy of the intrinsic musculature of the foot demonstrates increased T2/STIR signal. Findings are likely secondary to chronic denervation changes. Superimposed myositis could appear similar area. 4. Short segment split tear of the peroneal's brevis tendon along the infra malleoli or segment. PG Care Time/CCT Total # of Minutes Spent Total Time Spent with Patient: Total time spent is greater than 50% in coordination of care (as documented) at patient's floor/unit and/or counseling patient: Coding Level of Care Code 22129 Subseq Hosp Care Lvl 3 Diagnoses Diabetic ulcer of left foot E11.621; L97.421 Diabetes mellitus type: type 2 Diabetic foot ulcer location: heel Non-pressure ulcer stage: limited to breakdown of skin (1) Diabetic ulcer of left foot Diabetes mellitus type: type 2 Diabetic foot ulcer location: heel Non- pressure ulcer stage: limited to breakdown of skin Qualified Code(s): E11.621 - Type 2 diabetes mellitus with foot ulcer; L97.421 - Non-pressure chronic ulcer of left heel and midfoot limited to breakdown of skin
[2019-09-29] MEDS ORDERED: DAPTOmycin 500 MG in SYRINGE 0 ML IV SCH (09:00)
[2019-09-29] MEDS ORDERED: DAPTOMYCIN CONSULT ACTIVE PRN (09:06)
--- NOTE | 2019-09-29 09:12 | Orthopedic Consultation ---
Date of Consultation September 29, 2019 Assessment & Plan (1) Diabetic ulcer of left foot: Patient has been evaluated by vascular team. Dr. Aden has noted restenosis of the stent of the SFA. There is a possibility he is planning a vascular procedure tomorrow versus Thursday pending patient's renal status. Patient has tentatively been added onto the OR schedule tomorrow for irrigation debridement of the left heel however we will have to either time this or plan this after vascular procedure if going to be done tomorrow. I will discuss this further with Dr. Schroeder and make final plans upon his further input. 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 Patient states that last year during a visit at [facility], he had developed a small heel wound while he was admitted. He was discharged and followed up closely with the wound care center. He states that the wound healed up nicely and he had not been having any problems. He states that approximately at least 2 weeks ago, he had noticed some scant drainage on his close and a small area had developed on the heel again. He continued to care for it and the drainage began to increase. He was not having any pain per se with the ulcer. He decided to be evaluated and then was admitted to the hospital. Dr. Delgado from wound care has been seeing the patient during his stay and did a debridement at the bedside after he noticed the wound to be worsening. An MRI of the ankle and foot was done which showed no definite osteomyelitis but likely periostitis. Dr. Delgado felt that the wound was going to need a deeper debridement. We have been consulted to evaluate his left heel ulcer. Allergies Allergy/AdvReac Type Severity Reaction Status Date / Time poliomyelitis vaccine, live Allergy Unknown Unknown Verified 09/25/19 23:57 oral Home Medications Home Medications Medication Instructions Recorded Confirmed Type aspirin 81 mg tablet,delayed 81 mg PO DAILY 03/02/18 09/25/19 History release atorvastatin 40 mg tablet 40 mg PO HS tab 03/02/18 09/25/19 History multivitamin with minerals 1 tab PO DAILY 09/17/18 09/25/19 History furosemide 40 mg tablet 40 mg PO DAILY #90 tab 02/02/19 09/25/19 Rx clopidogrel 75 mg tablet 75 mg PO DAILY #30 tab 04/08/19 09/25/19 Rx blood sugar diagnostic #10 ea 04/15/19 07/20/19 History lisinopril 2.5 mg tablet 2.5 mg PO DAILY #30 tab 07/28/19 09/25/19 Rx Lantus U-100 Insulin 28 units SC QAM 09/25/19 09/25/19 History Patient History Medical History Abscess Abscess (Chronic) Acute blood loss anemia Acute blood loss anemia (Acute) Acute renal insufficiency Acute renal insufficiency (Acute) ATN (acute tubular necrosis) ATN (acute tubular necrosis) (Chronic) CAD in [place] artery (Acute) Chronic ulcer of left heel (Acute) Cognitive disorder (Acute) Diabetes mellitus with diabetic polyneuropathy (Acute) DM II (diabetes mellitus, type II), controlled (Chronic) Elevated serum creatinine (Acute) Foot swelling (Acute) Gait disturbance (Acute) Heel ulcer (Acute) Hematuria (Acute) HTN (hypertension) (Chronic) Hydronephrosis (Chronic) Hypomagnesemia (Acute) Hypoxia (Inactive) Incomplete bladder emptying (Acute) Left foot infection (Acute) MSSA (methicillin susceptible Staphylococcus aureus) (Chronic) Neurogenic bladder (Acute) Nocturia (Acute) Osteomyelitis (Chronic) Peripheral neuropathy (Acute) Peripherally inserted central catheter in place (Chronic) PICC (peripherally inserted central catheter) in place Preop examination Proteinuria Recurrent UTI (Chronic) Renal insufficiency (Acute) Sepsis Sepsis (Chronic) Subsequent non-ST elevation (NSTEMI) myocardial infarction (Acute) UTI (urinary tract infection) due to urinary indwelling catheter (Inactive) Yeast dermatitis (Chronic) Surgical History H/O oral surgery History of tonsillectomy Family History Other No pertinent family history Social History Preferred Language: Polish Communication Ability: Effective Visual Impairment: No Limitations Supervisor [employer] Required: No Beliefs That Will Affect Care: None marital status: Single Current Living Situation: Alone Current Living Situation Comment: lives alone in [facility] current occupational status: retired Other Information That Helps Us Care for You: No Feels Safe at Home: Yes Safety Concerns: Feels Safe At This Time Smoking Status: Never smoker Second Hand Exposure: No ; Hx Alcohol Use: No Hx Substance Use: No Physical Exam Physical Exam: On examination, the patient is a 69-year-old white male who appears younger than his stated age. He was in the restroom and has just returned to his bed as I was coming in for the examination. He is alert and oriented x3 and in no acute distress, pleasant and cooperative. Focusing on the left foot, the waffle boot was removed and a dressing was noted on the left heel and foot. This had mild saturation noted around the heel. The dressing was removed. He had some purulent drainage noted around the aqua cell in the dressing itself that did not have a foul odor. No bleeding is noted. The circumference of the heel has been debrided and slough is noted around a good portion of the heel. There is a central portion on the heel at least 2 to 3 cm in width where the ulcer resides but appeared very dark on the initial photos at the time of debridement but appears less darkened at this time. I cannot express any drainage from the wound at this time. The wound was redressed. Results & Data ([facility]) Vital Signs (Past 12 Hours) Vital Signs Temp Pulse Pulse Resp BP BP Pulse Ox 09/29/19 07:32 36.6 C 78 18 152/77 H 96 09/29/19 04:59 36.6 C 75 18 127/71 93 09/29/19 00:27 81 09/28/19 23:37 36.6 C 83 18 121/64 92 (1) Diabetic ulcer of left foot Diabetes mellitus type: type 2 Diabetic foot ulcer location: heel Non- pressure ulcer stage: limited to breakdown of skin Qualified Code(s): E11.621 - Type 2 diabetes mellitus with foot ulcer; L97.421 - Non-pressure chronic ulcer of left heel and midfoot limited to breakdown of skin
[2019-09-29] MEDS ORDERED: SODIUM CHLORIDE 0.9% 500 ML IV SCH (10:15)
--- NOTE | 2019-09-29 11:04 | Infectious Disease Consult ---
Date of Consultation September 29, 2019 Assessment & Plan (1) Diabetic ulcer of left foot: continue abx for now, follow final cultures, hopefully can narrow soon. may need surgery. will follow, blood cultures negative. (2) Cellulitis of foot, left: History of Present Illness Attending Physician: Maryellen Walters MD pt admitted with bleeding from left heel wound. follows at wound center for this. culture done in ER on 09/24- growing GGS, final pending, repeat wound cultures 09/27 growing the same. Blood cultures negative. wbc 6.6, creat 1.9, UA negative. MRI foot revealed 3.2x2.7cm ulcer, edema, and no osteo. afebrile since admission, on dapto and zosyn and tolerating well. no abd pain, no n/v/d. no cp, sob, cough. states he feels he may have undiagnosed COPD but denies cough, sob, wheeze. s/p ortho eval. tentative I&D tomorrow. Allergies Allergy/AdvReac Type Severity Reaction Status Date / Time poliomyelitis vaccine, live Allergy Unknown Unknown Verified 09/25/19 23:57 oral Home Medications Home Medications Medication Instructions Recorded Confirmed Type aspirin 81 mg tablet,delayed 81 mg PO DAILY 03/02/18 09/25/19 History release atorvastatin 40 mg tablet 40 mg PO HS tab 03/02/18 09/25/19 History multivitamin with minerals 1 tab PO DAILY 09/17/18 09/25/19 History furosemide 40 mg tablet 40 mg PO DAILY #90 tab 02/02/19 09/25/19 Rx clopidogrel 75 mg tablet 75 mg PO DAILY #30 tab 04/08/19 09/25/19 Rx blood sugar diagnostic #10 ea 04/15/19 07/20/19 History lisinopril 2.5 mg tablet 2.5 mg PO DAILY #30 tab 07/28/19 09/25/19 Rx Lantus U-100 Insulin 28 units SC QAM 09/25/19 09/25/19 History Patient History Medical History Abscess Abscess (Chronic) Acute blood loss anemia Acute blood loss anemia (Acute) Acute renal insufficiency Acute renal insufficiency (Acute) ATN (acute tubular necrosis) ATN (acute tubular necrosis) (Chronic) CAD in [place] artery (Acute) Chronic ulcer of left heel (Acute) Cognitive disorder (Acute) Diabetes mellitus with diabetic polyneuropathy (Acute) DM II (diabetes mellitus, type II), controlled (Chronic) Elevated serum creatinine (Acute) Foot swelling (Acute) Gait disturbance (Acute) Heel ulcer (Acute) Hematuria (Acute) HTN (hypertension) (Chronic) Hydronephrosis (Chronic) Hypomagnesemia (Acute) Hypoxia (Inactive) Incomplete bladder emptying (Acute) Left foot infection (Acute) MSSA (methicillin susceptible Staphylococcus aureus) (Chronic) Neurogenic bladder (Acute) Nocturia (Acute) Osteomyelitis (Chronic) Peripheral neuropathy (Acute) Peripherally inserted central catheter in place (Chronic) PICC (peripherally inserted central catheter) in place Preop examination Recurrent UTI (Chronic) Renal insufficiency (Acute) Sepsis Sepsis (Chronic) Subsequent non-ST elevation (NSTEMI) myocardial infarction (Acute) UTI (urinary tract infection) due to urinary indwelling catheter (Inactive) Yeast dermatitis (Chronic) Surgical History H/O oral surgery History of tonsillectomy Family History Other No pertinent family history Social History Preferred Language: Swedish Communication Ability: Effective Visual Impairment: No Limitations Aerial [employer] Required: No Beliefs That Will Affect Care: None marital status: Single Current Living Situation: Alone Current Living Situation Comment: [facility] current occupational status: retired Other Information That Helps Us Care for You: No Feels Safe at Home: Yes Safety Concerns: Feels Safe At This Time Smoking Status: Never smoker Second Hand Exposure: No ; Hx Alcohol Use: No Hx Substance Use: No Review of Systems Review of Systems: All systems reviewed & are unremarkable except as noted in HPI & below Physical Exam Constitutional: WD/WN, vitals as above Eyes: PERRL, conjunctivae normal, anicteric sclerae ENMT: external ear and nose normal, oropharynx normal Neck: normal visual inspection Respiratory: normal respiratory effort, lungs clear to auscultation Cardiovascular: RRR, no murmur, no edema Gastrointestinal (Abdomen): normal bowel sounds, soft, nontender, no hepatosplenomegaly Musculoskeletal: no cyanosis or clubbing, extremities motor strength 5/5 Skin: no rashes, warm and dry + wound (dressing intact, no bleeding, no drainage) Psychiatric: A+Ox3, euthymic affect Results & Data ([facility]) Vital Signs (Past 12 Hours) Vital Signs Temp Pulse Pulse Resp BP BP Pulse Ox 09/29/19 10:55 79 09/29/19 07:32 36.6 C 78 18 152/77 H 96 09/29/19 04:59 36.6 C 75 18 127/71 93 09/29/19 00:27 81 09/28/19 23:37 36.6 C 83 18 121/64 92 Laboratory Results Microbiology 09/28/19 11:20 Foot Gram Stain - Final 09/28/19 11:20 Foot Wound Culture - Preliminary Group G Beta Strep 09/25/19 22:40 Foot,Left Gram Stain - Final 09/25/19 22:40 Foot,Left Wound Culture - Preliminary Group G Beta Strep 09/25/19 23:10 Blood Aerobic Blood Culture - Preliminary No growth in Aerobic bottle after 48 hours. 09/25/19 23:10 Blood Anaerobic Blood Culture - Preliminary No growth in Anaerobic bottle after 48 hours. 09/25/19 23:30 Blood Aerobic Blood Culture - Preliminary No growth in Aerobic bottle after 48 hours. 09/25/19 23:30 Blood Anaerobic Blood Culture - Preliminary No growth in Anaerobic bottle after 48 hours. PG Care Time/CCT Total # of Minutes Spent Total Time Spent with Patient: Total time spent is greater than 50% in coordination of care (as documented) at patient's floor/unit and/or counseling patient: Coding Level of Care Code 56994 Inpt Consult Level 4 Diagnoses Diabetic ulcer of left foot E11.621; L97.421 Diabetes mellitus type: type 2 Diabetic foot ulcer location: heel Non-pressure ulcer stage: limited to breakdown of skin Cellulitis of foot, left L03.116 (1) Diabetic ulcer of left foot Diabetes mellitus type: type 2 Diabetic foot ulcer location: heel Non- pressure ulcer stage: limited to breakdown of skin Qualified Code(s): E11.621 - Type 2 diabetes mellitus with foot ulcer; L97.421 - Non-pressure chronic ulcer of left heel and midfoot limited to breakdown of skin
--- NOTE | 2019-09-29 13:33 | Cardiology Progress Note ---
Date of Service September 29, 2019 Assessment & Plan (1) Diabetic ulcer of left foot: 2. PAD -known restenosis of distal SFA stent 3. Acute renal insufficiency 4. Poorly controlled diabetes 5. Coronary artery disease post prior inferior RI 6. Chronic diastolic heart failure Stable on IV antibiotics. SCr improving but not at baseline. Ortho planning on surgical debridement tomorrow. Plan for endovascular intervention to Left SFA restenosis on Thursday. Admission and Anticipated Discharge Date Admission Date: September 26, 2019 Subjective No new complaints. Denies foot pain, fevers/chills. Review of Systems Review of Systems: All systems reviewed & are unremarkable except as noted in HPI & below Physical Exam Physical Exam: General: Comfortable, no acute distress Cardiac: Regular rate and rhythm Psych: Alert orient x3, normal affect and mood Extremities/Vascular: -- 2+ radial bilaterally -- Left leg dressed. No surrounding erythema/drainage. Diminished cap refill in LT toes Results & Data ([facility]) Vital Signs (Past 12 Hours) Vital Signs Temp Pulse Pulse Resp BP BP Pulse Ox 09/29/19 11:37 98.1 F 79 16 138/80 94 09/29/19 10:55 79 09/29/19 07:32 97.9 F 78 18 152/77 H 96 09/29/19 04:59 97.9 F 75 18 127/71 93 PG Care Time/CCT Total # of Minutes Spent Total Time Spent with Patient: Total time spent is greater than 50% in coordination of care (as documented) at patient's floor/unit and/or counseling patient: Coding Level of Care Code 80093 Subseq Hosp Care Lvl 3 Diagnoses Diabetic ulcer of left foot E11.621; L97.421 Diabetes mellitus type: type 2 Diabetic foot ulcer location: heel Non-pressure ulcer stage: limited to breakdown of skin (1) Diabetic ulcer of left foot Diabetes mellitus type: type 2 Diabetic foot ulcer location: heel Non- pressure ulcer stage: limited to breakdown of skin Qualified Code(s): E11.621 - Type 2 diabetes mellitus with foot ulcer; L97.421 - Non-pressure chronic ulcer of left heel and midfoot limited to breakdown of skin
[2019-09-29] MEDS ORDERED: ALBUTEROL HFA 8 GM INHALER INH PRN (16:24)
--- NOTE | 2019-09-29 16:24 | Hospitalist Progress Note ---
Date of Service September 29, 2019 Assessment & Plan (1) Acute kidney injury: MACY in setting of CKD stage 3 Known DMII 2nd to lasix/over-diuresis? 2nd to IV vancomycin? combo? UA wth protein -continue to hold lasix and KORI -discontinued IV vanco -gently hydrate today with 500mL NS -check spot prot/boat builder and repairer ratio -check Ur Na+ and Ur boat builder and repairer -follow BMP in AM and hoping for recovery (2) Stage III pressure ulcer of left heel: with significant infection/cellulitis, needs washout and revascularization cont zosyn and daptomycin Apprecaite ID input as to which abx to stay on and for how long -Wound cx with Group G beta strep -wound care nurse & provider on consult; appreciate their assistance MRI left heel WITHOUT osteomyelitis Appreciate orthopedics ([facility]) consult-for wash out tomorrow - Dr Aden from cardiology consulted due to arterial duplex of LLE a few months ago showing in-stent stenosis;plan for intervention on Thursday if renal function improving (3) Diabetic ulcer of left foot: Cont zosyn; changed vanco to daptomycin due to MACY. see above in "stage 3 pressure ulcer" of left heel. wound care nurse, wound care provider, orthopedics, cardiology/vascular on- board. (4) Diabetic peripheral neuropathy associated with type 2 diabetes mellitus: Diabetic peripheral neuropathy/idiopathic polyneuropathy- Patient does not appear to be on any neuropathic medications at this time. Denies any pain. (5) CAD in [place] artery: Continue aspirin 81 mg daily, clopidogrel 75 mg daily. Hold lisinopril 2.5 mg daily due to MACY. Hold statin due to daptomycin use. (6) PAD (peripheral artery disease): s/p stent in left leg by Dr Aden in 2019 arterial duplex from 06/2019 noted (in-stent stenosis) in light of poor wound healing of the left heel and infection have consulted Dr Aden; intervention of LLE stenotic area planned for Thursday (7) CHF (congestive heart failure): With chronic diastolic CHF With significantly swollen legs, unclear if from CHF, did not improve with diuresis and had MACY with IV lasix stopped IV lasix due to MACY dopplers of legs obtained due to copious edema -- NEG for DVT either leg clinically is NOT volume overloaded except for LE edema UA with protein, could be from proteinuria, hypoalbuminemia-albumin 2.5 (8) Ischemic cardiomyopathy: last echo in system 09/2018 EF preserved at that time (9) Diabetes type 2, uncontrolled: cont basal-bolus insulin-lowering Lantus to 10 units for tonight given surgery for tomorrow adjust novolog carb ratio follow (10) Chronic kidney disease, stage III (moderate): Creatinine baseline 1.22-1.54 now with superimposed MACY, boat builder and repairer yp to 1.9 but improved slightly from previous see MACY above BMP in am (11) Hyperlipidemia: hold atorvastatin due to IV daptomycin use (12) Hypokalemia: replaced/resolved (13) Proteinuria: as above -checking spot prot/boat builder and repairer ratio (14) DVT prophylaxis: heparin SC 5000 TID Dispo-continued stay Admission and Anticipated Discharge Date Admission Date: September 26, 2019 Subjective Pt feeling fine, no complaints. No chest pain. Does say upon asking that he has felt SOB off and on for many months to years and would like to try an inhaler as he used to smoke and thinks he has COPD. Makin urine. Discussed case with Cardiology nad Ortho Review of Systems Review of Systems: All systems reviewed & are unremarkable except as noted in HPI & below Physical Exam Constitutional: WD/WN, vitals as above Eyes: + anicteric sclerae Neck: trachea midline, no thyromegaly Respiratory: normal respiratory effort, lungs clear to auscultation Cardiovascular: Rate/Rhythm: regular rate and regular rhythm Extremities: + edema (2+ pitting edema bilat LEs to the knees) Chest (Breasts): Chest: normal inspection of chest Gastrointestinal (Abdomen): normal bowel sounds, soft, nontender, no hepatosplenomegaly Musculoskeletal: Extremities: extremities normal to inspection; no cyanosis and no clubbing Skin: + wound (left heel all dressed up and not removed) and + dry skin (severely dry skin on feet and legs) Neurologic: moves all extremities and awake; no focal motor deficits Psychiatric: A+Ox3, euthymic affect Lymphatic: no lymphedema Results & Data Results & Data ([facility]) Vital Signs (Past 12 Hours) Vital Signs Temp Pulse Pulse Resp BP BP Pulse Ox 09/29/19 15:41 36.7 C 81 18 169/94 H 93 09/29/19 11:37 36.7 C 79 16 138/80 94 09/29/19 10:55 79 09/29/19 07:32 36.6 C 78 18 152/77 H 96 09/29/19 04:59 36.6 C 75 18 127/71 93 Laboratory Results labs reviewed Diagnostic Findings Renal Duplex-normal PG Care Time/CCT Total # of Minutes Spent Total Time Spent with Patient: Total time spent is greater than 50% in coordination of care (as documented) at patient's floor/unit and/or counseling patient: Coding Level of Care Code 80268 Subseq Hosp Care Lvl 2 Diagnoses Acute kidney injury N17.9 Stage III pressure ulcer of left heel L89.623 Diabetic ulcer of left foot E11.621; L97.421 Diabetes mellitus type: type 2 Diabetic foot ulcer location: heel Non-pressure ulcer stage: limited to breakdown of skin Diabetic peripheral neuropathy associated with type 2 diabetes mellitus E11.42 CAD in [place] artery I25.10 PAD (peripheral artery disease) I73.9 CHF (congestive heart failure) I50.33 Heart failure chronicity: acute on chronic Heart failure type: diastolic Ischemic cardiomyopathy I25.5 Diabetes type 2, uncontrolled E11.649 Coma presence: without coma Glycemic state: with hypoglycemia Chronic kidney disease, stage III (moderate) N18.3 Hyperlipidemia E78.2 Hyperlipidemia type: mixed hyperlipidemia Hypokalemia E87.6 Proteinuria R80.9 DVT prophylaxis Z29.9 (1) Diabetic ulcer of left foot Diabetes mellitus type: type 2 Diabetic foot ulcer location: heel Non- pressure ulcer stage: limited to breakdown of skin Qualified Code(s): E11.621 - Type 2 diabetes mellitus with foot ulcer; L97.421 - Non-pressure chronic ulcer of left heel and midfoot limited to breakdown of skin (2) CHF (congestive heart failure) Heart failure chronicity: acute on chronic Heart failure type: diastolic Qualified Code(s): I50.33 - Acute on chronic diastolic (congestive) heart failure (3) Hyperlipidemia Hyperlipidemia type: mixed hyperlipidemia Qualified Code(s): E78.2 - Mixed hyperlipidemia (4) Diabetes type 2, uncontrolled Coma presence: without coma Glycemic state: with hypoglycemia Qualified Code(s): E11.649 - Type 2 diabetes mellitus with hypoglycemia without coma
[2019-09-29 17:52] LABS: Creatinine Urine Random 90.9 mg/dl; Total Protein Urine Random 94.6 mg/dl (0-11.9)
--- NOTE | 2019-09-29 18:40 | Ultrasound Report ---
US duplex renal artery CLINICAL HISTORY: renal failure COMPARISON STUDY: Renal ultrasound August 07, 2017. Doppler renal ultrasound March 03, 2017. TECHNIQUE: Color and duplex Doppler sonography of the renal arteries and abdominal aorta was domo quinn FINDINGS: The right kidney measures 13.2 cm in maximal dimension and the left measures 12.1 cm. The b ilateral renal arteries and veins are patent. The peak systolic velocity within the right renal arter y was 120 cm/s. The peak systolic velocity within the left renal artery was 131 cm/s. Peak systolic v elocity within the abdominal aorta was 70 cm/s. Segmental waveforms within the kidneys were normal. IMPRESSION: No sonographic evidence of renal artery stenosis. ACT 112: Negative or not required by law. Electronically signed by: Angelo Miller M.D. 09/29/2019 6:38 PM
[2019-09-30] MEDS: PIPERACILLIN/TAZOBACTAM 3.375 GM in DEXTROSE 5% 100 ML IV SCH (05:54)
[2019-09-30] MEDS: HEPARIN SOD 5,000 UNIT/0.5 ML VIAL SQ SCH ×4 (05:54→20:50)
[2019-09-30 05:55] LABS: Basophils # (auto) 0.02 K/uL (0-0.2); Basophils % (auto) 0.3 %; Eosinophils # (auto) 0.51 K/uL (0-0.5); Eosinophils % (auto) 7.7 %; Hematocrit (blood only) 37.4 % (42-52); Hemoglobin 11.9 g/dL (14.0-18.0); Immature Granulocytes # (auto) 0.07 K/uL (0.00-0.02); Immature Granulocytes % (auto) 1.1 %; Lymphocytes # (auto) 0.85 K/uL (1.2-3.4); Lymphocytes % (auto) 12.8 %; Mean Corpuscular Hemoglobin 31.4 pg (25-34); Mean Corpuscular Hgb Conc 31.8 g/dL (32-36); Mean Corpuscular Volume 98.7 fL (80-100); Mean Platelet Volume 10.7 fL (7.4-10.4); Monocytes # (auto) 0.62 K/uL (0.11-0.59); Monocytes % (auto) 9.3 %; Neutrophils # (auto) 4.59 K/uL (1.4-6.5); Neutrophils % (auto) 68.8 %; Platelet Count 261 K/uL (130-400); RDW Coefficient of Variation 13.4 % (11.5-14.5); RDW Standard Deviation 48.1 fL (36.4-46.3); Red Blood Count 3.79 M/uL (4.7-6.1); White Blood Count 6.66 K/uL (4.8-10.8)
[2019-09-30 06:24] LABS: BUN Creatinine Ratio 17.5 (10-20); Calcium 8.6 mg/dl (8.5-10.1); Creatinine Clr Calc Pharmacy 39.6 ml/min; Est GFR (African American) 36.9; Est GFR (Non-African American) 31.8; Potassium 3.8 mmol/L (3.5-5.1)
[2019-09-30] MEDS ORDERED: ONDANSETRON INJ 2 MG/ML 2 ML VIAL ONE (06:31)
[2019-09-30] MEDS ORDERED: PROPOFOL IV EMULSION 10 MG/ML 20 ML VIAL IV ONE (06:31)
[2019-09-30] MEDS ORDERED: LIDOCAINE HCL 2% 2 ML VIAL/AMP(20MG/ML) INFIL ONE (06:31)
[2019-09-30] MEDS ORDERED: DEXAMETHASONE SOD INJ 4 MG/ML VIAL ONE (06:31)
[2019-09-30] MEDS ORDERED: fentaNYL citrate 100 MCG/2 ML VIAL ONE (06:32)
--- NOTE | 2019-09-30 06:57 | Anesthesiology Consultation ---
Date of Service September 30, 2019 Assessment & Plan (1) Encounter for pre-operative examination: History Surgery Operation Date: 09/30/19 07:15 Proposed Procedures p Left Heel Ulcer Debridement - Roman Schroeder DO Height/Weight Height: 6 ft Weight: 94.5 kg Allergies Allergy/AdvReac Type Severity Reaction Status Date / Time poliomyelitis vaccine, live Allergy Unknown Unknown Verified 09/25/19 23:57 oral Medications Home Medications Medication Instructions Recorded Confirmed Last Taken aspirin 81 mg tablet,delayed 81 mg PO DAILY 03/02/18 09/25/19 09/25/19 release atorvastatin 40 mg tablet 40 mg PO HS tab 03/02/18 09/25/19 09/25/19 multivitamin with minerals 1 tab PO DAILY 09/17/18 09/25/19 09/25/19 furosemide 40 mg tablet 40 mg PO DAILY #90 tab 02/02/19 09/25/19 09/25/19 clopidogrel 75 mg tablet 75 mg PO DAILY #30 tab 04/08/19 09/25/19 09/25/19 blood sugar diagnostic #10 ea 04/15/19 07/20/19 Unknown lisinopril 2.5 mg tablet 2.5 mg PO DAILY #30 tab 07/28/19 09/25/19 09/25/19 Lantus U-100 Insulin 28 units SC QAM 09/25/19 09/25/19 09/25/19 Active Medications Generic Name Dose Route Start Last Admin Trade Name Freq PRN Reason Stop Dose Admin Albuterol 2 puffs 09/29/19 16:24 09/29/19 18:19 Ventolin Hfa INH 10/29/19 17:59 2 puffs Q6 PRN Administration shortness or breath or wheezing Aspirin 81 mg 09/26/19 09:00 09/29/19 08:00 Ecotrin Ectab PO 10/26/19 08:59 81 mg DAILY FRANCISCO Administration Atorvastatin Calcium 40 mg 09/26/19 21:00 09/27/19 21:31 Lipitor PO 10/26/19 20:59 40 mg HS FRANCISCO Administration Heparin Sodium (Porcine) 5,000 units 09/27/19 14:00 09/30/19 06:02 Heparin Sodium (Porcine) SQ 10/27/19 13:59 Not Given Q8 FRANCISCO Piperacillin Sod/Tazobactam 115 mls @ 28.75 mls/hr 09/26/19 06:00 09/30/19 05:54 Sod 3.375 gm/ Dextrose IV 10/03/19 05:59 28.8 mls/hr Q8H FRANCISCO Administration Protocol Insulin Aspart 0 units 09/26/19 07:30 09/29/19 21:24 Novolog Flexpen SC 10/26/19 07:29 1 units ACHS FRANCISCO Administration Insulin Glargine 14 units 09/26/19 09:00 09/29/19 08:00 Lantus Solostar Pen SC 10/26/19 08:59 14 units QAM FRANCISCO Administration Lisinopril 2.5 mg 09/27/19 09:00 09/27/19 08:17 Zestril PO 10/27/19 08:59 2.5 mg DAILY FRANCISCO Administration Miscellaneous 15 - 30 gm 09/26/19 02:34 09/26/19 02:30 Carbohydrates For Hypoglycemia PO 10/26/19 02:33 30 gm UD PRN Administration Hypoglycemia Protocol Multivitamins/Minerals 1 tab 09/26/19 09:00 09/29/19 08:00 Multivitamin W/ Minerals Tab PO 10/26/19 08:59 1 tab DAILY FRANCISCO Administration NPO Date Last Intake of Fluids: 09/29/19 Date Last Intake of Solids: 09/29/19 Past Medical History Medical History Abscess Abscess (Chronic) Acute blood loss anemia Acute blood loss anemia (Acute) Acute renal insufficiency Acute renal insufficiency (Acute) ATN (acute tubular necrosis) ATN (acute tubular necrosis) (Chronic) CAD in [place] artery (Acute) Chronic ulcer of left heel (Acute) Cognitive disorder (Acute) Diabetes mellitus with diabetic polyneuropathy (Acute) DM II (diabetes mellitus, type II), controlled (Chronic) Elevated serum creatinine (Acute) Foot swelling (Acute) Gait disturbance (Acute) Heel ulcer (Acute) Hematuria (Acute) HTN (hypertension) (Chronic) Hydronephrosis (Chronic) Hypomagnesemia (Acute) Hypoxia (Inactive) Incomplete bladder emptying (Acute) Left foot infection (Acute) MSSA (methicillin susceptible Staphylococcus aureus) (Chronic) Neurogenic bladder (Acute) Nocturia (Acute) Osteomyelitis (Chronic) Peripheral neuropathy (Acute) Peripherally inserted central catheter in place (Chronic) PICC (peripherally inserted central catheter) in place Preop examination Proteinuria Recurrent UTI (Chronic) Renal insufficiency (Acute) Sepsis Sepsis (Chronic) Subsequent non-ST elevation (NSTEMI) myocardial infarction (Acute) UTI (urinary tract infection) due to urinary indwelling catheter (Inactive) Yeast dermatitis (Chronic) Past Family History Family History Other No pertinent family history Past Surgical History Surgical History H/O oral surgery History of tonsillectomy Social History Smoking Status: Never smoker Hx Alcohol Use: No Hx Substance Use: No substance use type: does not use Physical Exam Vital Signs Last Vital Signs Temp 36.8 C 09/30/19 03:10 Pulse 79 09/30/19 03:10 Resp 18 09/30/19 03:10 BP 133/72 09/30/19 03:10 Pulse Ox 92 09/30/19 03:10 Testing Laboratory Results 09/30/19 05:23 09/30/19 05:23 PT 11.6 Seconds (9.0-12.0) 09/28/19 05:23 INR 1.1 (0.9-1.1) 09/28/19 05:23 APTT 27.7 Seconds (21.0-31.0) 09/25/19 23:10 Hemoglobin A1c 9.2 % (4.5-5.6) H 09/26/19 05:47 Urine Color Yellow 09/28/19 21:30 Urine Appearance Clear (Clear) 09/28/19 21:30 Urine pH 5.5 (4.5-7.5) 09/28/19 21:30 Ur Specific [place] 1.023 (1.000-1.030) 09/28/19 21:30 Urine Protein 2+ (Negative) H 09/28/19 21:30 Urine Glucose (UA) Negative (Negative) 09/28/19 21:30 Urine Ketones Negative (Negative) 09/28/19 21:30 Urine Nitrite Negative (Negative) 09/28/19 21:30 Ur Leukocyte Esterase Negative (Negative) 09/28/19 21:30 Urine WBC (Auto) 1-5 /hpf (0-5) 09/28/19 21:30 Urine RBC (Auto) 5-10 /hpf (0-4) H 09/28/19 21:30 U Hyaline Cast (Auto) 1-5 /lpf (0-5) 09/28/19 21:30 U Epithel Cells (Auto) 5-10 /lpf (0-5) H 09/28/19 21:30 Urine Bacteria (Auto) Negative (Negative) 09/28/19 21:30 09/28/19 11:20 Gram Stain - Final Foot Wound Culture - Preliminary Group G Beta Strep 09/25/19 22:40 Gram Stain - Final Foot,Left Wound Culture - Preliminary Group G Beta Strep 09/25/19 23:10 Aerobic Blood Culture - Preliminary Blood No growth in Aerobic bottle after 48 hours. Anaerobic Blood Culture - Preliminary No growth in Anaerobic bottle after 48 hours. 09/25/19 23:30 Aerobic Blood Culture - Preliminary Blood No growth in Aerobic bottle after 48 hours. Anaerobic Blood Culture - Preliminary No growth in Anaerobic bottle after 48 hours. 09/30/19 09/29/19 06:57 20:17 POC Glucose 152 H 158 H Electrocardiogram Date: 09/18/19 Normal sinus rhythm Low voltage QRS Cannot rule out Inferior infarct (cited on or before 04-JUL-2017) Abnormal ECG When compared with ECG of 06-SEP-2018 09:37, No significant change was found Confirmed by SHARRON CONTI ([id number]) on 09/18/2018 9:05:57 AM Chest X-Ray Date: 09/18/19 Radiographic evidence of mild congestive failure/fluid overload 2. Increasing bilateral pleural effusions 3. Basilar airspace opacities, likely representing compressive atelectasis although a superimposed pneumonia could appear similar Echocardiogram Date: 09/08/19 EF: 55-60 LV Function: normal
[2019-09-30] MEDS ORDERED: ONDANSETRON INJ 2 MG/ML 2 ML VIAL IV PRN (07:13)
[2019-09-30] MEDS ORDERED: HYDROmorphone INJ 1 MG/ML SYRINGE IV PRN (07:13)
[2019-09-30] MEDS ORDERED: ePHEDrine sulfate 50 MG/ML AMP IV PRN (07:13)
[2019-09-30] MEDS ORDERED: ATROPINE SULFATE 0.1 MG/ML 10ML SYR IV PRN (07:13)
[2019-09-30] MEDS ORDERED: fentaNYL citrate 100 MCG/2 ML VIAL IV PRN (07:13)
[2019-09-30] MEDS ORDERED: SODIUM CHLORIDE 0.9% 1000ML 1,000 ML IV SCH (07:30)
[2019-09-30] MEDS ORDERED: BACITRACIN INJ 50,000 UNIT VIAL ONE (07:32)
[2019-09-30] MEDS ORDERED: BUPIVACAINE 0.5 % 5 MG/1 ML MPF 30ML VIAL ONE (07:32)
[2019-09-30] MEDS ORDERED: BUPIVACAINE/EPINEPHRINE 0.5% MPF 1:200,000 10 ML VIAL ONE (07:32)
--- NOTE | 2019-09-30 07:32 | History & Physical Bridge Note ---
Date of Service September 30, 2019 History & Physical Bridge Note I have examined the patient, reviewed the History & Physical and in the interval since the performance of the History & Physical I have noted the following changes of clinical significance: no changes noted
[2019-09-30] MEDS ORDERED: GENTAMICIN SULFATE 40 MG/ML 2 ML VIAL ONE (08:35)
[2019-09-30] MEDS ORDERED: VANCOMYCIN HCL 1000MG/20ML VIAL ONE (08:36)
[2019-09-30] MEDS ORDERED: SUCCINYLCHOLINE 100MG/5ML SYR ONE (08:43)
[2019-09-30] MEDS ORDERED: ePHEDrine sulfate 50 MG/ML SYR ONE (08:44)
[2019-09-30] MEDS ORDERED: INSULIN GLARGINE SOLOSTAR 100 UNITS/ML 3 ML PEN SC SCH (09:00)
[2019-09-30] MEDS ORDERED: DAPTOmycin 500 MG in SYRINGE 0 ML IV SCH (09:00)
--- NOTE | 2019-09-30 09:53 | Post Operative Brief Note ---
Immediate Post Op Note v1 Date of Surgery September 30, 2019 Pre & Post Diagnosis Operation Date: 09/30/19 07:15 Pre-Op Diagnosis: LEFT HEEL ABSCESS, LEFT DIABETIC NEUROPATHIC FOOT ULCER 10 cm x 6 cm Post-Op Diagnosis: LEFT HEEL ABSCESS, DIABETIC NEUROPATHIC FOOT ULCER 10 cm x 6 cm, calcaneal periostitis, Achilles septic tendinitis, osteomyelitis calcaneus, septic fasciitis left heel I identified the patient and participated in the time-out.: Yes Procedure Operation Date: 09/30/19 07:15 Actual Procedures p Debridement of left Achilles, debridement left heel fascia, debridement left calcaneal periosteum, Incision and drainage of left heel abscess, Debridement of left heel diabetic neuropathic ulcer 10cm x 6cm, Implantation of Stimulan antibiotic beads(Left) - Roman Schroeder DO Surgeon Roman Schroeder DO Software Test Analyst Ryan Payan PA-C Estimated Blood Loss 1 Findings Consistent with Post-Op Diagnosis Specimens Aerobic anaerobic Gram stain left posterior heel abscess; fascia/periosteum/posterior calcaneal bone for specimen Anesthesia Type General Regional Complications none Disposition Accompanied Patient To Recovery: Yes Disposition: Recovery Room
--- NOTE | 2019-09-30 10:03 | Anesthesiology Progress Note ---
Date of Service September 30, 2019 Anesthesia Post Procedure Vital Signs Vital Signs: Temp Pulse Pulse Pulse Resp BP BP 09/30/19 10:00 36.4 C L 88 16 168/83 H 09/30/19 09:50 88 16 162/77 H 09/30/19 09:40 90 20 166/76 H 09/30/19 09:30 90 18 140/68 09/30/19 09:24 36.4 C L 90 18 131/70 09/30/19 07:33 36.8 C 83 18 169/93 H 09/30/19 06:25 80 09/30/19 03:10 36.8 C 79 18 133/72 09/30/19 00:00 82 09/29/19 23:25 36.7 C 75 17 126/70 09/29/19 20:14 36.7 C 83 17 174/89 H 09/29/19 17:10 84 09/29/19 15:41 36.7 C 81 18 169/94 H 09/29/19 11:37 36.7 C 79 16 138/80 09/29/19 10:55 79 Pulse Ox 09/30/19 10:00 94 09/30/19 09:50 94 09/30/19 09:40 98 09/30/19 09:30 98 09/30/19 09:24 98 09/30/19 07:33 95 09/30/19 06:25 09/30/19 03:10 92 09/30/19 00:00 09/29/19 23:25 94 09/29/19 20:14 93 09/29/19 17:10 09/29/19 15:41 93 09/29/19 11:37 94 09/29/19 10:55 Transfer of Care Handoff Completed per policy Notes Mental Status: alert / awake / arousable and participated in evaluation Patient Amnestic to Procedure: Yes Nausea / Vomiting: adequately controlled Pain: adequately controlled Airway Patency, RR, SpO2: stable & adequate BP & HR: stable & adequate Hydration State: stable & adequate Anesthetic Complications: no major complications apparent and Pt Satisfied with anesthetic care
[2019-09-30] MEDS ORDERED: OXYCODONE HCL IR 5 MG TAB (IMMEDIATE RELEASE) PO PRN (10:23)
[2019-09-30] MEDS ORDERED: NALOXONE HCL 0.4 MG/1 ML VIAL/CARP IV PRN (10:23)
[2019-09-30] MEDS ORDERED: bisacodyL 10 MG SUPP PR PRN (10:23)
[2019-09-30] MEDS ORDERED: HYDROmorphone INJ 0.5 MG/0.5 ML SYR IV PRN (10:23)
[2019-09-30] MEDS ORDERED: MAGNESIUM HYDROXIDE SUSP 30 ML UDC PO PRN (10:23)
[2019-09-30] MEDS ORDERED: METOCLOPRAMIDE HCL INJ 5 MG/ML 2 ML VIAL IV PRN (10:23)
[2019-09-30] MEDS: SODIUM CHLORIDE 0.9% 1000ML 1,000 ML IV SCH ×2 (10:38→20:40)
[2019-09-30] MEDS: CEROVITE ADV FORMULA TAB PO SCH (10:41)
[2019-09-30] MEDS: ASPIRIN 81 MG ECTAB PO SCH (10:41)
[2019-09-30] MEDS: INSULIN ASPART 100 UNITS/ML 3 ML PEN SC SCH ×4 (10:43→20:50)
[2019-09-30] MEDS: DOCUSATE SODIUM 100 MG CAP PO SCH ×2 (10:44→20:50)
--- NOTE | 2019-09-30 10:48 | Operative Report (OR) ---
DATE OF OPERATION: 09/30/2019 PREOPERATIVE DIAGNOSES: 1. Left heel abscess. 2. Diabetic neuropathic heel ulcer 10 cm x 6 cm. POSTOPERATIVE DIAGNOSES: 1. Left heel abscess. 2. Diabetic neuropathic foot ulcer, left heel 10 cm x 6 cm. 3. Calcaneal periostitis. 4. Achilles septic tendinitis. 5. Osteomyelitis of the calcaneus. 6. Septic fasciitis, left heel. PROCEDURES: 1. Left heel incision and drainage with evacuation abscess. 2. Debridement of 10 cm x 6 cm diabetic neuropathic ulcer. 3. Debridement Achilles tendon. 4. Debridement left calcaneal periosteum. 5. Debridement left heel fascia. 6. Implantation of Stimulan antibiotic beads. SURGEON: Roman Schroeder DO STONE LAYOUT MARKER: Ryan Payan PA-C who was present for patient positioning, sterile prep and drape, management of retractors and instruments. He was present through the critical portions of the case including wound closure, application of sterile dressing and transport of the patient to recovery. ANESTHESIA: General endotracheal tube with local regional. SPECIMENS: 1. Aerobic, anaerobic, Gram stain, left posterior heel. 2. Fascia/periosteum/calcaneal bone for specimen. DRAINS: None. COMPLICATIONS: None. BLOOD LOSS: 1 mL. PERTINENT HISTORY: This is a 69-year-old diabetic neuropathic gentleman with severe left heel abscess and large ulcer. He has had vascular disease and cardiac disease as well. He developed a large heel ulcer over a period of time. Attempted conservative management proved to worsen and was admitted to the hospital for treatment. After he was stabilized and evaluated he was then scheduled for surgery as indicated. DESCRIPTION OF PROCEDURE: The patient's condition warranted urgent surgical attention as this is a process in evolution which would result in loss of the integrity of his heel pad with open exposed bone and subsequent worsening osteomyelitis, likely necessitating amputation. Therefore the care of this patient was necessary during the current COVID-19 pandemic. All potential risks, benefits, complications, alternatives, rehab, potential for incomplete relief of symptoms, worsening need for further surgery, DVT, PE, , persistent pain, swelling, scarring, weakness, loss of function, wound complications, further osteomyelitis and possible further amputation was discussed with the patient. The patient decided to proceed with the procedure as indicated. DESCRIPTION OF PROCEDURE: The patient was taken to the operative suite and placed supine on the operating room table. After review of the consent and identification of proper operative site, the patient was anesthetized and then rolled prone over padded bolsters with all bony prominences padded and protected after he was intubated with an endotracheal tube. He had a protective eyewear on and his genitals were checked to make certain that there was no pressure. Knees were padded and then the left lower extremity was then sterilely prepped and draped in usual fashion, partially elevated and then an Esmarch tourniquet was applied over sterile surgical towel at the level of the ankle due to the patient's underlying vascular disease. Surgical timeout was performed and then posterior heel invagination. The posterior heel was then carefully debrided with a 15 blade scalpel the sinus tract and a culture was then obtained. This was passed off for aerobic, anaerobic and Gram stain specimens. Next, further debridement deeper was performed with a 15 blade scalpel and forceps. The Achilles insertion appeared inflamed with some dissolution of the insertional fibers. Therefore debridement of the Achilles was then performed noting inflammation and degradation of the Achilles tissue. Adjacent to this the calcaneal periosteum which also had a similar appearance. This was sharply debrided with a 15 blade scalpel and removed. Next, there was noted to be a thinly exposed calcaneal posterior bone. This was tested with a 15 blade scalpel and noted to be uncommonly softened consistent with osteomalacia and features consistent with osteomyelitis. Next, a rongeur and curette were then used to debride the region back to more stable healthy appearing tissue resecting a portion approximately 5 mm deep and 9 mm in diameter. This tissue was then sent for specimen for pathological evaluation. Next, the heel pad was noted to have been undermined by bacterial contamination and destruction along the fascial plane. Did not appear to extend beyond the heel pad consistent with septic heel fasciitis. This was sharply debrided with a curette, taking care to maintain the integrity of the overlying the heel pad tissue. This was then copiously irrigated with pulsatile lavage using Ragnell rakes to ensure lavage of the deep tissue. This was performed with 3 liters of solution. Next, a large curette was then used to debride the 6 cm x 10 cm heel ulcer back to gently bleeding tissue with protection of the heel pad. This was performed down to the level of the dermis. Some epithelial tissue remained. Some ulceration was also noted with stippling of zones of necrosis through the epidermis into the dermis. The next 3 liter bag with pulsatile lavage with bacitracin was then used to cleanse the deep and superficial heel pad tissue. Next, Stimulan beads were mixed with vancomycin and gentamicin in a 5 mL container. This was then transitioned into a small mat panel maker. After the beads solidified these were then extruded from the panel maker and then implanted underneath the heel pad, the layer between the deep fascia and the periosteum overlying the heel pad. This was then distributed evenly using a [place] forcep and a Avenue elevator. Next, 2 vertical mattress sutures were used to partially coapt the tissue at the posterior heel sinus to prevent invagination and allow some drainage. The sterile compressive dressing was then applied consisting of Adaptic, sterile 4 x 4's. Then local injection was performed circumferentially around the heel pad with approximately 30 mL of 0.5% Marcaine plain. Next was covered by cast padding, 2 ABD pads and Dennis wrap. The tourniquet was released. The patient was then rolled supine and then transferred to the transfer cart in stable condition. He was awakened and taken to recovery in stable condition. Toes noted to pink and warm. He did have a third toenail, which was obviously dystrophic and was falling off and pulled the toenail off without any difficulty whatsoever and put a gently compressive dressing and Band-Aid over the 3rd toe. The patient was then taken to recovery in stable condition. I attest to the content of the Intraoperative Record and any orders documented therein. Any exception s are noted below.
--- NOTE | 2019-09-30 11:10 | Infectious Disease Progress Nt ---
Date of Service September 30, 2019 Assessment & Plan (1) Diabetic ulcer of left foot: will change to Rocephin 2g IV daily. follow OR cultures, will need 6 weeks IV abx due to findings of septic tendonitis and heel osteo. (2) Cellulitis of foot, left: Admission and Anticipated Discharge Date Admission Date: September 26, 2019 Subjective pt s/p OR this am, heel debrided, osteo noted on heel. septic tendonitis noted. remains on dapto and zosyn, tolerating well. OR cultures pending, blood cultures negative, wound culutre 09/24, 09/27 - GGS. afebrile. wbc 6 Results & Data ([facility]) Vital Signs (Past 12 Hours) Vital Signs Temp Pulse Pulse Pulse Resp BP BP 09/30/19 11:04 36.4 C L 89 18 156/83 H 09/30/19 10:30 36.4 C L 89 18 171/80 H 09/30/19 10:10 87 16 165/78 H 09/30/19 10:00 36.4 C L 88 16 168/83 H 09/30/19 09:50 88 16 162/77 H 09/30/19 09:40 90 20 166/76 H 09/30/19 09:30 90 18 140/68 09/30/19 09:24 36.4 C L 90 18 131/70 09/30/19 07:33 36.8 C 83 18 169/93 H 09/30/19 06:25 80 09/30/19 03:10 36.8 C 79 18 133/72 09/30/19 00:00 82 09/29/19 23:25 36.7 C 75 17 126/70 Pulse Ox 09/30/19 11:04 93 09/30/19 10:30 93 09/30/19 10:10 94 09/30/19 10:00 94 09/30/19 09:50 94 09/30/19 09:40 98 09/30/19 09:30 98 09/30/19 09:24 98 09/30/19 07:33 95 09/30/19 06:25 09/30/19 03:10 92 09/30/19 00:00 09/29/19 23:25 94 Laboratory Results Microbiology 09/25/19 22:40 Foot,Left Gram Stain - Final 09/25/19 22:40 Foot,Left Wound Culture - Final Group G Beta Strep 09/30/19 08:46 Foot,Left Gram Stain - Final 09/28/19 11:20 Foot Gram Stain - Final 09/28/19 11:20 Foot Wound Culture - Final Group G Beta Strep 09/25/19 23:10 Blood Aerobic Blood Culture - Preliminary No growth in Aerobic bottle after 48 hours. 09/25/19 23:10 Blood Anaerobic Blood Culture - Preliminary No growth in Anaerobic bottle after 48 hours. 09/25/19 23:30 Blood Aerobic Blood Culture - Preliminary No growth in Aerobic bottle after 48 hours. 09/25/19 23:30 Blood Anaerobic Blood Culture - Preliminary No growth in Anaerobic bottle after 48 hours. PG Care Time/CCT Total # of Minutes Spent Total Time Spent with Patient: Total time spent is greater than 50% in coordination of care (as documented) at patient's floor/unit and/or counseling patient: Coding Level of Care Code 34414 Subseq Hosp Care Lvl 1 Diagnoses Diabetic ulcer of left foot E11.621; L97.421 Diabetes mellitus type: type 2 Diabetic foot ulcer location: heel Non-pressure ulcer stage: limited to breakdown of skin Cellulitis of foot, left L03.116 (1) Diabetic ulcer of left foot Diabetes mellitus type: type 2 Diabetic foot ulcer location: heel Non- pressure ulcer stage: limited to breakdown of skin Qualified Code(s): E11.621 - Type 2 diabetes mellitus with foot ulcer; L97.421 - Non-pressure chronic ulcer of left heel and midfoot limited to breakdown of skin
--- NOTE | 2019-09-30 12:32 | Nephrology Consultation ---
Date of Consultation September 30, 2019 Assessment & Plan (1) Acute kidney injury: -- Acute kidney injury likely on the basis of intravascular volume contraction and poor perfusion associated w/ loop diuretic therapy in the setting of R heart failure -- Hold Lisinopril & Furosemide, provide gentle hydration -- Urinalysis negative for casts. UPCR 1.0 -- Renal duplex 09/29/19: R 13.2cm, L 12.1cm. No ALONA -- Monitor PRP -- Avoid IV contrast administration until kidney function recovers (2) Chronic kidney disease: -- Baseline Cr 1.2 - 1.4 w/ EGFR 54 cc/min. CKD likely due to combination microvascular disease and poor renal perfusion associated w/ valvular heart disease, R heart failure (3) Ischemic cardiomyopathy: -- Echocardiogram 05/22: LVEF 35 - 40%, moderate MR, trace TR -- Will order follow up echocardiogram (4) Stage III pressure ulcer of left heel: -- Wound was surgically debrided this morning -- Wound culture has grown out PCN sensitive Group G strep. Agree w/ ID decision to change antibiotics to IV Rocephin History of Present Illness Reason for Consultation: MACY/CKD Attending Physician: Maryellen Walters MD History of Present Illness Mr. Patel is a 69 year old white male who is seen at the request of Dr. Walters for evaluation of MACY on CKD. Medical records in the EMR were reviewed today and are summarized as follows: Mr. Patel has stage III CKD (moderate impairment). His baseline Cr has been 1.2 - 1.4 w/ EGFR 54 cc/min. He has not undergone Nephrology evaluation in the past. He has had low grade proteinuria (~ 1g/day) attributed to DM. His medical history is also significant for peripheral neuropathy, neurogenic bladder, donis UTI, BPH, ASCVD, dCHF and PAD s/p L SFA stenting. 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 He lives a relatively sedentary life. Mr. Patel was admitted to [facility] 09/25/19 for evaluation of progressive LE edema and a bleeding L heel ulcer. IV diuretics, Vancomycin & Daptomycin were administered. Left heel ulcer was debrided this morning. Cardiology has been consulted. Patient has PAD. He is noted to have partial occlusion of his L SFA stent. He is being considered for angiography on Daniel. I&O's have not been measured. Weight has been 93 - 95kg. Cr has risen from 1.2 to 2.2 since admission. Allergies Allergy/AdvReac Type Severity Reaction Status Date / Time poliomyelitis vaccine, live Allergy Unknown Unknown Verified 09/25/19 23:57 oral Home Medications Home Medications Medication Instructions Recorded Confirmed Type aspirin 81 mg tablet,delayed 81 mg PO DAILY 03/02/18 09/25/19 History release atorvastatin 40 mg tablet 40 mg PO HS tab 03/02/18 09/25/19 History multivitamin with minerals 1 tab PO DAILY 09/17/18 09/25/19 History furosemide 40 mg tablet 40 mg PO DAILY #90 tab 02/02/19 09/25/19 Rx clopidogrel 75 mg tablet 75 mg PO DAILY #30 tab 04/08/19 09/25/19 Rx blood sugar diagnostic #10 ea 04/15/19 07/20/19 History lisinopril 2.5 mg tablet 2.5 mg PO DAILY #30 tab 07/28/19 09/25/19 Rx Lantus U-100 Insulin 28 units SC QAM 09/25/19 09/25/19 History Patient History Medical History Abscess Abscess (Chronic) Acute blood loss anemia Acute blood loss anemia (Acute) Acute renal insufficiency Acute renal insufficiency (Acute) ATN (acute tubular necrosis) ATN (acute tubular necrosis) (Chronic) CAD in [place] artery (Acute) Chronic ulcer of left heel (Acute) Cognitive disorder (Acute) Diabetes mellitus with diabetic polyneuropathy (Acute) DM II (diabetes mellitus, type II), controlled (Chronic) Elevated serum creatinine (Acute) Foot swelling (Acute) Gait disturbance (Acute) Heel ulcer (Acute) Hematuria (Acute) HTN (hypertension) (Chronic) Hydronephrosis (Chronic) Hypomagnesemia (Acute) Hypoxia (Inactive) Incomplete bladder emptying (Acute) Left foot infection (Acute) MSSA (methicillin susceptible Staphylococcus aureus) (Chronic) Neurogenic bladder (Acute) Nocturia (Acute) Osteomyelitis (Chronic) Peripheral neuropathy (Acute) Peripherally inserted central catheter in place (Chronic) PICC (peripherally inserted central catheter) in place Preop examination Proteinuria Recurrent UTI (Chronic) Renal insufficiency (Acute) Sepsis Sepsis (Chronic) Subsequent non-ST elevation (NSTEMI) myocardial infarction (Acute) UTI (urinary tract infection) due to urinary indwelling catheter (Inactive) Yeast dermatitis (Chronic) Surgical History H/O oral surgery History of tonsillectomy Family History Other No pertinent family history Social History Preferred Language: [place]i Communication Ability: Effective Visual Impairment: No Limitations Custom Ski Maker Required: No Beliefs That Will Affect Care: None marital status: Single Current Living Situation: Alone Current Living Situation Comment: lives alone in condo current occupational status: retired Other Information That Helps Us Care for You: No Feels Safe at Home: Yes Safety Concerns: Feels Safe At This Time Smoking Status: Never smoker Second Hand Exposure: No ; Hx Alcohol Use: No Hx Substance Use: No Review of Systems Constitutional: + weakness; no fever Eyes: no problem reported Ear, Nose, Mouth, Throat: no problem reported Respiratory: no cough and no dyspnea Cardiovascular: + edema; no chest pain and no palpitations Gastrointestinal: no abdominal pain, no nausea, no vomiting and no diarrhea/lo ose stools Genitourinary: no dysuria, no urinary hesitancy and no hematuria Musculoskeletal: no back pain Integumentary: no rash Neurologic: no falls, no dizziness and no confusion Physical Exam Constitutional: not in distress Eyes: PERRL, conjunctivae normal, anicteric sclerae ENMT: Nose: + dry nasal mucous membranes Neck: trachea midline, no thyromegaly + JVD to angle of jaw while lying flat Respiratory: normal respiratory effort, lungs clear to auscultation Cardiovascular: Rate/Rhythm: regular rate and regular rhythm Extremities: + edema (1+ pretibial pitting edema) Gastrointestinal (Abdomen): Inspection/Auscultation: + abdomen distended Percussion/Palpation: abdomen soft; abdomen nontender Musculoskeletal: L heel wrapped. Onychomycosis of L toes Skin: no rashes Neurologic: awake; not confused Results & Data Vital Signs (Past 12 Hours) Vital Signs Temp Pulse Pulse Pulse Resp BP BP 09/30/19 11:04 36.4 C L 89 18 156/83 H 09/30/19 10:30 36.4 C L 89 18 171/80 H 09/30/19 10:10 87 16 165/78 H 09/30/19 10:00 36.4 C L 88 16 168/83 H 09/30/19 09:50 88 16 162/77 H 09/30/19 09:40 90 20 166/76 H 09/30/19 09:30 90 18 140/68 09/30/19 09:24 36.4 C L 90 18 131/70 09/30/19 07:33 36.8 C 83 18 169/93 H 09/30/19 06:25 80 09/30/19 03:10 36.8 C 79 18 133/72 09/30/19 00:00 82 Pulse Ox 09/30/19 11:04 93 09/30/19 10:30 93 09/30/19 10:10 94 09/30/19 10:00 94 09/30/19 09:50 94 09/30/19 09:40 98 09/30/19 09:30 98 09/30/19 09:24 98 09/30/19 07:33 95 09/30/19 06:25 09/30/19 03:10 92 09/30/19 00:00 Laboratory Results Laboratory Results WBC 6.66 K/uL (4.8-10.8) 09/30/19 05:23 RBC 3.79 M/uL (4.7-6.1) L 09/30/19 05:23 Hgb 11.9 g/dL (14.0-18.0) L 09/30/19 05:23 Hct 37.4 % (42-52) L 09/30/19 05:23 MCV 98.7 fL (80-100) 09/30/19 05:23 MCH 31.4 pg (25-34) 09/30/19 05:23 MCHC 31.8 g/dL (32-36) L 09/30/19 05:23 RDW Std Deviation 48.1 fL (36.4-46.3) H 09/30/19 05:23 RDW Coeff of Clarissa 13.4 % (11.5-14.5) 09/30/19 05:23 Plt Count 261 K/uL (130-400) 09/30/19 05:23 MPV 10.7 fL (7.4-10.4) H 09/30/19 05:23 Immature Gran % (Auto) 1.1 % 09/30/19 05:23 Neut % (Auto) 68.8 % 09/30/19 05:23 Lymph % (Auto) 12.8 % 09/30/19 05:23 [place] % (Auto) 9.3 % 09/30/19 05:23 Eos % (Auto) 7.7 % 09/30/19 05:23 Baso % (Auto) 0.3 % 09/30/19 05:23 Immature Gran # (Auto) 0.07 K/uL (0.00-0.02) H 09/30/19 05:23 Neut # (Auto) 4.59 K/uL (1.4-6.5) 09/30/19 05:23 Lymph # (Auto) 0.85 K/uL (1.2-3.4) L 09/30/19 05:23 [place] # (Auto) 0.62 K/uL (0.11-0.59) H 09/30/19 05:23 Eos # (Auto) 0.51 K/uL (0-0.5) H 09/30/19 05:23 Baso # (Auto) 0.02 K/uL (0-0.2) 09/30/19 05:23 PT 11.6 Seconds (9.0-12.0) 09/28/19 05:23 INR 1.1 (0.9-1.1) 09/28/19 05:23 APTT 27.7 Seconds (21.0-31.0) 09/25/19 23:10 PTT Ratio 1.0 09/25/19 23:10 Sodium 140 mmol/L (136-145) 09/30/19 05:23 Potassium 3.8 mmol/L (3.5-5.1) 09/30/19 05:23 Chloride 109 mmol/L (98-107) H 09/30/19 05:23 Carbon Dioxide 26 mmol/L (21-32) 09/30/19 05:23 Anion Gap 6.0 (3-11) 09/30/19 05:23 BUN 36 mg/dl (7-18) H 09/30/19 05:23 Creatinine 2.04 mg/dl (0.6-1.4) H 09/30/19 05:23 Est Cr Clr Drug Dosing 39.6 ml/min 09/30/19 05:23 Est GFR ( Amer) 36.9 09/30/19 05:23 Est GFR (Non-Af Amer) 31.8 09/30/19 05:23 BUN/Creatinine Ratio 17.5 (10-20) 09/30/19 05:23 Glucose 148 mg/dl (70-99) H 09/30/19 05:23 POC Glucose 166 mg/dl (70-99) H 09/30/19 11:41 Estimat Average Glucose 217 mg/dl 09/26/19 05:47 Hemoglobin A1c 9.2 % (4.5-5.6) H 09/26/19 05:47 Lactate 1.2 mmol/L (0.4-2.0) 09/25/19 23:30 Calcium 8.6 mg/dl (8.5-10.1) 09/30/19 05:23 Magnesium 2.2 mg/dl (1.8-2.4) 09/29/19 05:37 Total Bilirubin 0.6 mg/dl (0.2-1) 09/28/19 05:23 AST 29 U/L (15-37) 09/28/19 05:23 ALT 27 U/L (12-78) 09/28/19 05:23 Alkaline Phosphatase 227 U/L (45-117) H 09/28/19 05:23 Troponin I < 0.015 ng/ml (0-0.045) 09/26/19 18:57 Total Protein 6.6 gm/dl (6.4-8.2) 09/28/19 05:23 Albumin 2.5 gm/dl (3.4-5.0) L 09/28/19 05:23 Globulin 4.1 gm/dl (2.5-4.0) H 09/28/19 05:23 Albumin/Globulin Ratio 0.6 (0.9-2) L 09/28/19 05:23 Urine Color Yellow 09/28/19 21:30 Urine Appearance Clear (Clear) 09/28/19 21:30 Urine pH 5.5 (4.5-7.5) 09/28/19 21:30 Ur Specific [place] 1.023 (1.000-1.030) 09/28/19 21:30 Urine Protein 2+ (Negative) H 09/28/19 21:30 Urine Glucose (UA) Negative (Negative) 09/28/19 21:30 Urine Ketones Negative (Negative) 09/28/19 21:30 Urine Blood Negative (Negative) 09/28/19 21:30 Urine Nitrite Negative (Negative) 09/28/19 21:30 Urine Bilirubin Negative (Negative) 09/28/19 21:30 Urine Urobilinogen Negative (Negative) 09/28/19 21:30 Ur Leukocyte Esterase Negative (Negative) 09/28/19 21:30 Urine WBC (Auto) 1-5 /hpf (0-5) 09/28/19 21:30 Urine RBC (Auto) 5-10 /hpf (0-4) H 09/28/19 21:30 U Hyaline Cast (Auto) 1-5 /lpf (0-5) 09/28/19 21:30 U Epithel Cells (Auto) 5-10 /lpf (0-5) H 09/28/19 21:30 Urine Bacteria (Auto) Negative (Negative) 09/28/19 21:30 Ur Random Creatinine 90.9 mg/dl 09/29/19 17:12 U Random Total Protein 94.6 mg/dl (0-11.9) H 09/29/19 17:12 Protein/Creatinin Ratio 1.0 (0-0.2) H 09/29/19 17:12 Vancomycin Trough 23.2 mcg/ml (See Comment) 09/27/19 11:44 PG Care Time/CCT Total # of Minutes Spent Total Time Spent with Patient: Total time spent is greater than 50% in coordination of care (as documented) at patient's floor/unit and/or counseling patient: Coding Level of Care Code 74709 Inpt Consult Level 5 Diagnoses Acute kidney injury N17.9 Chronic kidney disease N18.9 Ischemic cardiomyopathy I25.5 Stage III pressure ulcer of left heel L89.623
--- NOTE | 2019-09-30 13:17 | XCELERA ---
[id number] \\[email or web address]\PDF_[email or web address]\[id number]___[id number]
[2019-09-30] MEDS: cefTRIAXone SODIUM 2,000 MG in DEXTROSE 5% 50 ML IV SCH (13:42)
--- NOTE | 2019-09-30 18:51 | Hospitalist Progress Note ---
Date of Service September 30, 2019 Assessment & Plan (1) Acute kidney injury: MACY in setting of CKD stage 3 Known DMII Secondary to lasix/over-diuresis? plus was on ACEi; also received IV vancomycin UA wth protein Spot prot/cutter brake lining ratio 1.0 Inserter slightly worse today at 2.04 despite gentle hydration yesterday and continuing to hold lasix and ACEi Making urine. With LE edema chronic and likely from hypoalbuminemia -continue to hold lasix and KORI -have since discontinued IV vanco -continue to gently hydrate today with NS -Appreciate Nephro consultation-continue gentle IVFs, checked ECHO-normal EF and right sided pressures -follow BMP in AM and hoping for recovery (2) Stage III pressure ulcer of left heel: with significant infection/cellulitis/abscess, MRI neg for OM, however now OM found of calcaneus during surgical debridement as well as Achilles septic tendinitis and Septic fasciitis, left heel. -now s/p washout by Ortho on 09/29--> intraop cultures pending -Wound cxs with Group G Strep -ID consulted--> dc zosyn and daptomycin, START Rocephin -wound care nurse & provider on consult; appreciate their assistance - Dr Aden from cardiology consulted due to arterial duplex of LLE a few months ago showing in-stent stenosis;plan for intervention on Thursday if renal function improved (3) Osteomyelitis: Left calcaneus as above Blood cultures no growth -will need 6 weeks at least of IV abx (4) Diabetic ulcer of left foot: as above (5) Diabetic peripheral neuropathy associated with type 2 diabetes mellitus: Diabetic peripheral neuropathy/idiopathic polyneuropathy- Patient does not appear to be on any neuropathic medications at this time. Denies any pain. (6) CAD in [place] artery: Continue aspirin 81 mg daily, clopidogrel 75 mg daily. Holding lisinopril 2.5 mg daily due to MACY. Ok to restart statin now that daptomycin is discontinued (7) PAD (peripheral artery disease): s/p stent in left leg by Dr Aden in 2018 arterial duplex from 06/2019 noted (in-stent stenosis) in light of poor wound healing of the left heel and infection have consulted Dr Aden; intervention of LLE stenotic area planned for Thursday if renal function improved (8) CHF (congestive heart failure): With chronic diastolic CHF ECHO 07/2018 with preserved EF Repeat ECHO 09/30/19 with preserved EF With significantly swollen legs, unclear if from CHF, did not improve with diuresis and had MACY with IV lasix -stopped IV lasix due to MACY -dopplers of legs obtained due to copious edema -- NEG for DVT either leg -clinically is NOT volume overloaded except for LE edema which is likely from hy poalbuminemia -continue BP control (9) Ischemic cardiomyopathy: last echo in system 09/2018 EF preserved at that time and again here this admission, ECHO with preserved EF Previously had reduced EF in 2015 (10) Diabetes type 2, uncontrolled: cont basal-bolus insulin- Lantus 10 units daily -continue novolog carb ratio follow (11) Chronic kidney disease, stage III (moderate): Creatinine baseline 1.22-1.54 now with superimposed MACY, cutter brake lining up to 2.0, not much improved from previous see MACY above BMP in am (12) Hyperlipidemia: restart atorvastatin now as daptomycin discontinued (13) Hypokalemia: replaced/resolved (14) Proteinuria: as above spot prot/cutter brake lining ratio 1.0 secondary to DM most likely (15) DVT prophylaxis: heparin SC 5000 TID Dispo-continued stay, ok to transfer to medical floor Admission and Anticipated Discharge Date Admission Date: September 26, 2019 Subjective Pt had his heel ulcer debridement this AM. Feeling drowsy since then but denies pain in foot. Denies SOB-states albuterol inhaler helped him. Denies chest pain or abd pain, no nausea. Is areli po. Is moving bowels nad making urine. Discussed his case with Nephrology today as renal function slightly worse and not improving Review of Systems Review of Systems: All systems reviewed & are unremarkable except as noted in HPI & below Physical Exam Constitutional: WD/WN, vitals as above Eyes: + anicteric sclerae ENMT: external ear and nose normal, oropharynx normal Neck: trachea midline, no thyromegaly Respiratory: normal respiratory effort, lungs clear to auscultation Cardiovascular: Rate/Rhythm: regular rate and regular rhythm Extremities: + edema (2+ pitting edema bilat LEs to the knees) Chest (Breasts): Chest: normal inspection of chest Gastrointestinal (Abdomen): normal bowel sounds, soft, nontender, no hepatosplenomegaly Musculoskeletal: Extremities: extremities normal to inspection; no cyanosis and no clubbing Skin: + wound (left heel all dressed up and not removed) and + dry skin (severely dry skin on feet and legs) Neurologic: moves all extremities and awake; no focal motor deficits Psychiatric: A+Ox3, euthymic affect Lymphatic: no lymphedema Results & Data Results & Data ([facility]) Vital Signs (Past 12 Hours) Vital Signs Temp Pulse Pulse Resp BP BP Pulse Ox 09/30/19 16:51 36.5 C 91 H 18 163/78 H 95 09/30/19 14:59 36.5 C 94 H 20 153/73 H 94 09/30/19 13:00 36.4 C L 95 H 16 180/88 H 92 09/30/19 11:04 36.4 C L 89 18 156/83 H 93 09/30/19 10:30 36.4 C L 89 18 171/80 H 93 09/30/19 10:10 87 16 165/78 H 94 09/30/19 10:00 36.4 C L 88 16 168/83 H 94 09/30/19 09:50 88 16 162/77 H 94 09/30/19 09:40 90 20 166/76 H 98 09/30/19 09:30 90 18 140/68 98 09/30/19 09:24 36.4 C L 90 18 131/70 98 09/30/19 07:33 36.8 C 83 18 169/93 H 95 Laboratory Results 09/30/19 09/30/19 09/30/19 Range/Units 16:33 11:41 10:43 WBC (4.8-10.8) K/uL RBC (4.7-6.1) M/uL Hgb (14.0-18.0) g/dL Hct (42-52) % MCV (80-100) fL MCH (25-34) pg MCHC (32-36) g/dL RDW Std Deviation (36.4-46.3) fL RDW Coeff of Clarissa (11.5-14.5) % Plt Count (130-400) K/uL MPV (7.4-10.4) fL Immature Gran % (Auto) % Neut % (Auto) % Lymph % (Auto) % [place] % (Auto) % Eos % (Auto) % Baso % (Auto) % Immature Gran # (Auto) (0.00-0.02) K/uL Neut # (Auto) (1.4-6.5) K/uL Lymph # (Auto) (1.2-3.4) K/uL [place] # (Auto) (0.11-0.59) K/uL Eos # (Auto) (0-0.5) K/uL Baso # (Auto) (0-0.2) K/uL Sodium (136-145) mmol/L Potassium (3.5-5.1) mmol/L Chloride (98-107) mmol/L Carbon Dioxide (21-32) mmol/L Anion Gap (3-11) BUN (7-18) mg/dl Creatinine (0.6-1.4) mg/dl Est Cr Clr Drug Dosing ml/min Est GFR ( Amer) Est GFR (Non-Af Amer) BUN/Creatinine Ratio (10-20) Glucose (70-99) mg/dl POC Glucose 273 H 166 H 150 H (70-99) mg/dl Calcium (8.5-10.1) mg/dl 09/30/19 09/30/19 09/30/19 Range/Units 09:27 06:57 05:23 WBC (4.8-10.8) K/uL RBC (4.7-6.1) M/uL Hgb (14.0-18.0) g/dL Hct (42-52) % MCV (80-100) fL MCH (25-34) pg MCHC (32-36) g/dL RDW Std Deviation (36.4-46.3) fL RDW Coeff of Clarissa (11.5-14.5) % Plt Count (130-400) K/uL MPV (7.4-10.4) fL Immature Gran % (Auto) % Neut % (Auto) % Lymph % (Auto) % [place] % (Auto) % Eos % (Auto) % Baso % (Auto) % Immature Gran # (Auto) (0.00-0.02) K/uL Neut # (Auto) (1.4-6.5) K/uL Lymph # (Auto) (1.2-3.4) K/uL [place] # (Auto) (0.11-0.59) K/uL Eos # (Auto) (0-0.5) K/uL Baso # (Auto) (0-0.2) K/uL Sodium 140 (136-145) mmol/L Potassium 3.8 (3.5-5.1) mmol/L Chloride 109 H (98-107) mmol/L Carbon Dioxide 26 (21-32) mmol/L Anion Gap 6.0 (3-11) BUN 36 H (7-18) mg/dl Creatinine 2.04 H (0.6-1.4) mg/dl Est Cr Clr Drug Dosing 39.6 ml/min Est GFR ( Amer) 36.9 Est GFR (Non-Af Amer) 31.8 BUN/Creatinine Ratio 17.5 (10-20) Glucose 148 H (70-99) mg/dl POC Glucose 140 H 152 H (70-99) mg/dl Calcium 8.6 (8.5-10.1) mg/dl 09/30/19 09/29/19 Range/Units 05:23 20:17 WBC 6.66 (4.8-10.8) K/uL RBC 3.79 L (4.7-6.1) M/uL Hgb 11.9 L (14.0-18.0) g/dL Hct 37.4 L (42-52) % MCV 98.7 (80-100) fL MCH 31.4 (25-34) pg MCHC 31.8 L (32-36) g/dL RDW Std Deviation 48.1 H (36.4-46.3) fL RDW Coeff of Clarissa 13.4 (11.5-14.5) % Plt Count 261 (130-400) K/uL MPV 10.7 H (7.4-10.4) fL Immature Gran % (Auto) 1.1 % Neut % (Auto) 68.8 % Lymph % (Auto) 12.8 % [place] % (Auto) 9.3 % Eos % (Auto) 7.7 % Baso % (Auto) 0.3 % Immature Gran # (Auto) 0.07 H (0.00-0.02) K/uL Neut # (Auto) 4.59 (1.4-6.5) K/uL Lymph # (Auto) 0.85 L (1.2-3.4) K/uL [place] # (Auto) 0.62 H (0.11-0.59) K/uL Eos # (Auto) 0.51 H (0-0.5) K/uL Baso # (Auto) 0.02 (0-0.2) K/uL Sodium (136-145) mmol/L Potassium (3.5-5.1) mmol/L Chloride (98-107) mmol/L Carbon Dioxide (21-32) mmol/L Anion Gap (3-11) BUN (7-18) mg/dl Creatinine (0.6-1.4) mg/dl Est Cr Clr Drug Dosing ml/min Est GFR ( Amer) Est GFR (Non-Af Amer) BUN/Creatinine Ratio (10-20) Glucose (70-99) mg/dl POC Glucose 158 H (70-99) mg/dl Calcium (8.5-10.1) mg/dl PG Care Time/CCT Total # of Minutes Spent Total Time Spent with Patient: Total time spent is greater than 50% in coordination of care (as documented) at patient's floor/unit and/or counseling patient: Coding Level of Care Code 63251 Subseq Hosp Care Lvl 2 Diagnoses Acute kidney injury N17.9 Stage III pressure ulcer of left heel L89.623 Osteomyelitis M86.9 Diabetic ulcer of left foot E11.621; L97.421 Diabetes mellitus type: type 2 Diabetic foot ulcer location: heel Non-pressure ulcer stage: limited to breakdown of skin Diabetic peripheral neuropathy associated with type 2 diabetes mellitus E11.42 CAD in [place] artery I25.10 PAD (peripheral artery disease) I73.9 CHF (congestive heart failure) I50.33 Heart failure chronicity: acute on chronic Heart failure type: diastolic Ischemic cardiomyopathy I25.5 Diabetes type 2, uncontrolled E11.649 Glycemic state: with hypoglycemia Coma presence: without coma Chronic kidney disease, stage III (moderate) N18.3 Hyperlipidemia E78.2 Hyperlipidemia type: mixed hyperlipidemia Hypokalemia E87.6 Proteinuria R80.9 DVT prophylaxis Z29.9 (1) Diabetic ulcer of left foot Diabetes mellitus type: type 2 Diabetic foot ulcer location: heel Non- pressure ulcer stage: limited to breakdown of skin Qualified Code(s): E11.621 - Type 2 diabetes mellitus with foot ulcer; L97.421 - Non-pressure chronic ulcer of left heel and midfoot limited to breakdown of skin (2) CHF (congestive heart failure) Heart failure chronicity: acute on chronic Heart failure type: diastolic Qualified Code(s): I50.33 - Acute on chronic diastolic (congestive) heart failure (3) Diabetes type 2, uncontrolled Glycemic state: with hypoglycemia Coma presence: without coma Qualified Code(s): E11.649 - Type 2 diabetes mellitus with hypoglycemia without coma (4) Hyperlipidemia Hyperlipidemia type: mixed hyperlipidemia Qualified Code(s): E78.2 - Mixed hyperlipidemia
[2019-09-30] MEDS: ATORVASTATIN 40 MG TAB PO SCH (20:50)
[2019-09-30] MEDS ORDERED: INSULIN GLARGINE SOLOSTAR 100 UNITS/ML 3 ML PEN SC ONE (21:00)
[2019-10-01 06:13] LABS: Hematocrit (blood only) 36.5 % (42-52); Hemoglobin 11.5 g/dL (14.0-18.0); Mean Corpuscular Hemoglobin 31.2 pg (25-34); Mean Corpuscular Hgb Conc 31.5 g/dL (32-36); Mean Corpuscular Volume 98.9 fL (80-100); Platelet Count 230 K/uL (130-400); RDW Coefficient of Variation 13.4 % (11.5-14.5); RDW Standard Deviation 48.6 fL (36.4-46.3); Red Blood Count 3.69 M/uL (4.7-6.1); White Blood Count 8.14 K/uL (4.8-10.8)
[2019-10-01] MEDS: HEPARIN SOD 5,000 UNIT/0.5 ML VIAL SQ SCH ×3 (06:21→20:47)
[2019-10-01 06:46] LABS: Albumin Level 2.5 gm/dl (3.4-5.0); BUN Creatinine Ratio 18.8 (10-20); Calcium 8.5 mg/dl (8.5-10.1); Creatinine Clr Calc Pharmacy 41.2 ml/min; Est GFR (African American) 38.7; Est GFR (Non-African American) 33.4; Potassium 3.9 mmol/L (3.5-5.1)
[2019-10-01 06:48] LABS: Albumin Globulin Ratio 0.6 (0.9-2); Bilirubin,Total 0.3 mg/dl (0.2-1); Globulin 4.4 gm/dl (2.5-4.0); Total Protein 6.9 gm/dl (6.4-8.2)
[2019-10-01] MEDS: ASPIRIN 81 MG ECTAB PO SCH (08:25)
[2019-10-01] MEDS: CEROVITE ADV FORMULA TAB PO SCH (08:25)
[2019-10-01] MEDS: DOCUSATE SODIUM 100 MG CAP PO SCH ×2 (08:26→20:47)
[2019-10-01] MEDS: INSULIN ASPART 100 UNITS/ML 3 ML PEN SC SCH ×4 (08:26→20:47)
--- NOTE | 2019-10-01 09:14 | Hospitalist Progress Note ---
Date of Service October 01, 2019 Assessment & Plan (1) Cellulitis of foot, left: Patient's cultures on 09/27 of the wound are showing GBS, surgical cultures on 09/29 with negative Gram stain with cultures pending. Patient has been on IV Rocephin with infectious disease following. Final recommendation is for 6 weeks total antibiotics for osteomyelitis. Will likely need central access prior to discharge to continue antibiotics. (2) PAD (peripheral artery disease): Per cardiology, plan for SFA angioplasty secondary to restenosis. This is tentatively planned for 10/02 per their note and pending improvement in renal function. (3) Acute renal insufficiency: Patient's renal function is shown a little improvement with IV hydration as recommended by nephrology. Lisinopril and furosemide have both been held. Patient was given IV hydration although caution was used secondary to the patient's history of CHF with ischemic cardiomyopathy. If okay, will restart slow IV hydration with 60 cc an hour of normal saline, follow renal function. Nephrology following as well. Dopplers of kidneys did not show any renal artery stenosis. (4) CAD in [place] artery: Patient is on aspirin, Plavix, and Lipitor which will need to be continued. (5) Diabetes type 2, uncontrolled: Patient is on Lantus 20 units in the morning along with sliding scale, this will need to be continued. Blood sugars are acceptable but the patient has historically had somewhat poor control. Admission and Anticipated Discharge Date Admission Date: September 26, 2019 Subjective Patient seen and examined. No new complaints, notes that his foot does not have significant pain. He is status post debridement with washout of the left heel, POD #1. Patient has been afebrile and his vitals have otherwise been stable. Patient's main concern is in regards to being served breakfast on Thursday as he is under the impression that he is having a vascular intervention with but is unclear if this is still happening. Physical Exam Constitutional: cooperative; no acute distress and not ill appearing Neck: trachea midline, no thyromegaly Respiratory: normal respiratory effort Auscultation: lungs clear to auscultation bilaterally; no crackles, no rales, no rhonchi and no wheezes Cardiovascular: Rate/Rhythm: regular rate and regular rhythm Heart Sounds: normal S1 and normal S2 Gastrointestinal (Abdomen): Inspection/Auscultation: abdomen normal to inspection Percussion/Palpation: abdomen soft; abdomen nontender, no guarding, abdomen not rigid and no hepatosplenomegaly Musculoskeletal: Left foot and heel dressed, did not disturb dressing. Skin: no rashes, warm and dry Results & Data Results & Data ([facility]) Vital Signs (Past 12 Hours) Vital Signs Temp Pulse Resp BP BP Pulse Ox 10/01/19 07:28 36.3 C L 72 18 114/65 96 09/30/19 23:48 36.5 C 78 20 151/76 H 95 Laboratory Results White count is 8.14, hemoglobin is 11.5 hematocrit of 36.5. BUN is 37 with creatinine 1.96, only minimally improved from yesterday. This appears to be worse from patient's previous baseline of 1.22 on 09/25 but has not improved significantly since. Diagnostic Findings US duplex renal artery CLINICAL HISTORY: renal failure COMPARISON STUDY: Renal ultrasound August 07, 2017. Doppler renal ultrasound March 03, 2017. TECHNIQUE: Color and duplex Doppler sonography of the renal arteries and abdominal aorta was performed. FINDINGS: The right kidney measures 13.2 cm in maximal dimension and the left measures 12.1 cm. The bilateral renal arteries and veins are patent. The peak systolic velocity within the right renal artery was 120 cm/s. The peak systolic velocity within the left renal artery was 131 cm/s. Peak systolic velocity within the abdominal aorta was 70 cm/s. Segmental waveforms within the kidneys were normal. IMPRESSION: No sonographic evidence of renal artery stenosis. PG Care Time/CCT Total # of Minutes Spent Total Time Spent with Patient: Total time spent is greater than 50% in coordination of care (as documented) at patient's floor/unit and/or counseling patient: Coding Level of Care Code 41798 Subseq Hosp Care Lvl 2 Diagnoses Cellulitis of foot, left L03.116 PAD (peripheral artery disease) I73.9 Acute renal insufficiency N28.9 CAD in [place] artery I25.10 Diabetes type 2, uncontrolled E11.649 Glycemic state: with hypoglycemia Coma presence: without coma (1) Diabetes type 2, uncontrolled Glycemic state: with hypoglycemia Coma presence: without coma Qualified Code(s): E11.649 - Type 2 diabetes mellitus with hypoglycemia without coma
[2019-10-01] MEDS ORDERED: SODIUM CHLORIDE 0.9% 1000ML 1,000 ML IV SCH (09:15)
--- NOTE | 2019-10-01 09:59 | Orthopedic Progress Note ---
Date of Service October 01, 2019 Assessment & Plan (1) Diabetic ulcer of left foot: POD #1 s/p 1. Left heel incision and drainage with evacuation abscess. 2. Debridement of 10 cm x 6 cm diabetic neuropathic ulcer. 3. Debridement Achilles tendon. 4. Debridement left calcaneal periosteum. 5. Debridement left heel fascia. 6. Implantation of Stimulan antibiotic beads Awaiting culture results. Gram stain negative. Continue IV Rocephin. NWB LLE at all times. Daily dressing changes. Dressing changed this AM. Waffle boots for the LLE to avoid pressure on the heel. D/C planning per medicine. Admission and Anticipated Discharge Date Admission Date: September 26, 2019 Subjective States the left lower leg is doing well. No complaints of pain. States he has some sensation in the LLE but hasn't had pain post operatively. Denies CP, SOB, LH. Physical Exam Constitutional: WD/WN, vitals as above no acute distress Musculoskeletal: Ankle: + ankle abnormal to inspection (Left heel ulcer: mild bloody drainage on the gauze.); no skin erythema Skin: + ulcer (Left heel: Stable 10 cm x 6 cm ulceration. No erythema.) Psychiatric: A+Ox3, euthymic affect Speech: normal rate/rhythm/volume of speech Results & Data ([facility]) Vital Signs (Past 12 Hours) Vital Signs Temp Pulse Resp BP BP Pulse Ox 10/01/19 07:28 36.3 C L 72 18 114/65 96 09/30/19 23:48 36.5 C 78 20 151/76 H 95 (1) Diabetic ulcer of left foot Diabetes mellitus type: type 2 Diabetic foot ulcer location: heel Non- pressure ulcer stage: limited to breakdown of skin Qualified Code(s): E11.621 - Type 2 diabetes mellitus with foot ulcer; L97.421 - Non-pressure chronic ulcer of left heel and midfoot limited to breakdown of skin
--- NOTE | 2019-10-01 11:29 | Nephrology Progress Note ---
Date of Service October 01, 2019 Assessment & Plan (1) Acute kidney injury: 69-year-old male with stage IIIA CKD, baseline creatinine 1.2-1.4 with prior history of recurrent acute kidney injury over last several years. Chronic kidney disease thought to be secondary to microvascular disease with longstanding history of diabetes. Admitted to the hospital with left lower extremity nonhealing ulcer. Found to have MACY with creatinine 2.2 and has been stable from 2-2.2 over last few days. Initially received furosemide and was on lisinopril currently both on hold. Has been getting IV hydration. 2D echo showed normal EF and no significant valvular abnormality. MACY most likely hemodynamically mediated with variability in BP with possible underlying impaired autoregulation with diabetes. No significant change in renal function over last few days with IV hydration. -- discontinue IV fluids, p.o. intake seems to be adequate. IV fluid can be resume prior to lower extremity angiogram on Thursday, if renal function stays stable -- okay to hold KORI-inhibitor for now however if blood pressure not at goal, can be resumed any time Will follow Subjective Chava was seen and evaluated this morning. He is not feeling well this morning as he did not sleep last night however denies any specific symptoms. Appetite has been decent. Blood pressure well controlled. Decent urine output. Renal function stable without further changes, electrolyte acceptable. Review of Systems Review of Systems: All systems reviewed & are unremarkable except as noted in HPI & below Physical Exam Constitutional: WD/WN, vitals as above + ill appearing Respiratory: normal respiratory effort, lungs clear to auscultation Cardiovascular: Heart Sounds: normal S1 and normal S2 Extremities: no edema Neurologic: awake; no focal motor deficits and not confused Psychiatric: A+Ox3, euthymic affect Results & Data Vital Signs (Past 12 Hours) Vital Signs Temp Pulse Resp BP BP Pulse Ox 10/01/19 07:28 36.3 C L 72 18 114/65 96 09/30/19 23:48 36.5 C 78 20 151/76 H 95 PG Care Time/CCT Total # of Minutes Spent Total Time Spent with Patient: Total time spent is greater than 50% in coordination of care (as documented) at patient's floor/unit and/or counseling patient: Coding Level of Care Code 01855 Subseq Hosp Care Lvl 3 Diagnoses Acute kidney injury N17.9
[2019-10-01] MEDS: cefTRIAXone SODIUM 2,000 MG in DEXTROSE 5% 50 ML IV SCH (13:57)
[2019-10-01] MEDS: ATORVASTATIN 40 MG TAB PO SCH (20:47)
[2019-10-02 06:20] LABS: Basophils # (auto) 0.03 K/uL (0-0.2); Basophils % (auto) 0.3 %; Eosinophils # (auto) 0.54 K/uL (0-0.5); Eosinophils % (auto) 6.3 %; Hematocrit (blood only) 38.3 % (42-52); Immature Granulocytes # (auto) 0.16 K/uL (0.00-0.02); Immature Granulocytes % (auto) 1.9 %; Lymphocytes # (auto) 1.15 K/uL (1.2-3.4); Lymphocytes % (auto) 13.3 %; Mean Corpuscular Hemoglobin 31.4 pg (25-34); Mean Corpuscular Hgb Conc 31.3 g/dL (32-36); Mean Corpuscular Volume 100.3 fL (80-100); Mean Platelet Volume 10.8 fL (7.4-10.4); Monocytes # (auto) 0.82 K/uL (0.11-0.59); Monocytes % (auto) 9.5 %; Neutrophils # (auto) 5.92 K/uL (1.4-6.5); Neutrophils % (auto) 68.7 %; Platelet Count 292 K/uL (130-400); RDW Coefficient of Variation 13.6 % (11.5-14.5); RDW Standard Deviation 49.3 fL (36.4-46.3); Red Blood Count 3.82 M/uL (4.7-6.1); White Blood Count 8.62 K/uL (4.8-10.8)
[2019-10-02] MEDS: HEPARIN SOD 5,000 UNIT/0.5 ML VIAL SQ SCH ×3 (06:42→21:00)
[2019-10-02 06:51] LABS: BUN Creatinine Ratio 22.6 (10-20); Calcium 8.9 mg/dl (8.5-10.1); Creatinine Clr Calc Pharmacy 44.9 ml/min; Est GFR (African American) 42.4; Est GFR (Non-African American) 36.5; Potassium 4.5 mmol/L (3.5-5.1)
--- NOTE | 2019-10-02 08:27 | Hospitalist Progress Note ---
Date of Service October 02, 2019 Assessment & Plan (1) Cellulitis of foot, left: Patient's cultures on 09/27 of the wound are showing GBS, surgical cultures on 09/29 with gram-positive bacilli and gram-positive cocci on Gram stain, pinpoint growth with plan to reincubate. Awaiting final results. To continue IV Rocephin pending final cultures. Patient will ultimately need a total of 6 weeks antibiotics per infectious disease, will need central access prior to discharge. (2) PAD (peripheral artery disease): Per cardiology, plan for SFA angioplasty secondary to restenosis. This is tentatively planned for 10/02 per their note and pending improvement in renal function. (3) Acute renal insufficiency: Patient's renal function is shown a little improvement with IV hydration as recommended by nephrology. Lisinopril and furosemide have both been held. Patient was given IV hydration although caution was used secondary to the patient's history of CHF with ischemic cardiomyopathy. Off IV fluids per nep hrology, continue to monitor renal function. (4) CAD in [place] artery: Patient is on aspirin, Plavix, and Lipitor which will need to be continued. (5) Diabetes type 2, uncontrolled: Patient is on Lantus 20 units in the morning along with sliding scale, this will need to be continued. Blood sugars are acceptable but the patient has historically had somewhat poor control. Admission and Anticipated Discharge Date Admission Date: September 26, 2019 Subjective No new complaints today, no issues overnight. Patient remains comfortable. Denies any pain in his foot postoperatively. Remains afebrile. Minimal improvement in his creatinine overnight. Physical Exam Constitutional: cooperative; no acute distress Neck: trachea midline, no thyromegaly Respiratory: normal respiratory effort Auscultation: lungs clear to auscultation bilaterally; no crackles, no rales, no rhonchi and no wheezes Cardiovascular: Rate/Rhythm: regular rate and regular rhythm Heart Sounds: normal S1 and normal S2 Vessels: no JVD Gastrointestinal (Abdomen): Inspection/Auscultation: abdomen normal to inspection Percussion/Palpation: abdomen soft; abdomen nontender, no guarding, abdomen not rigid and no hepatosplenomegaly Musculoskeletal: Left foot dressed, did not disturb further. Skin: no rashes, warm and dry Results & Data Results & Data ([facility]) Vital Signs (Past 12 Hours) Vital Signs Temp Pulse Resp BP Pulse Ox 10/02/19 00:00 36.6 C 76 20 145/77 H 94 Laboratory Results WBCs 8.6, hemoglobin 12, hematocrit 38.3, platelets of 292. Sodium 137, potassi um 4.5, chloride 106, carbon dioxide 26. BUN is up from 37 to 41 but creatinine is down from 1.96 to 1.82. PG Care Time/CCT Total # of Minutes Spent Total Time Spent with Patient: Total time spent is greater than 50% in coordination of care (as documented) at patient's floor/unit and/or counseling p atient: Coding Level of Care Code 58558 Subseq Hosp Care Lvl 2 Diagnoses Cellulitis of foot, left L03.116 PAD (peripheral artery disease) I73.9 Acute renal insufficiency N28.9 CAD in [place] artery I25.10 Diabetes type 2, uncontrolled E11.649 Glycemic state: with hypoglycemia Coma presence: without coma (1) Diabetes type 2, uncontrolled Glycemic state: with hypoglycemia Coma presence: without coma Qualified Code(s): E11.649 - Type 2 diabetes mellitus with hypoglycemia without coma
[2019-10-02] MEDS: CEROVITE ADV FORMULA TAB PO SCH (09:16)
[2019-10-02] MEDS: ASPIRIN 81 MG ECTAB PO SCH (09:16)
[2019-10-02] MEDS: DOCUSATE SODIUM 100 MG CAP PO SCH ×2 (09:16→21:00)
[2019-10-02] MEDS: INSULIN ASPART 100 UNITS/ML 3 ML PEN SC SCH ×4 (09:20→21:00)
--- NOTE | 2019-10-02 10:22 | Orthopedic Progress Note ---
Date of Service October 02, 2019 Assessment & Plan (1) Diabetic ulcer of left foot: POD #2 s/p 1. Left heel incision and drainage with evacuation abscess. 2. Debridement of 10 cm x 6 cm diabetic neuropathic ulcer. 3. Debridement Achilles tendon. 4. Debridement left calcaneal periosteum. 5. Debridement left heel fascia. 6. Implantation of Stimulan antibiotic beads Intraop cultures growing corynebacterium species. Continue IV Rocephin. NWB LLE at all times. Dressing changed this AM. Plan will be to keep dressing in place for 2-3 days then have wound nursing change the dressing prn. Patient is scheduled for an angiogram tomorrow with Dr. Aden. Waffle boots for the LLE to avoid pressure on the heel. D/C planning per medicine. Admission and Anticipated Discharge Date Admission Date: September 26, 2019 Subjective No new complaints today, no issues overnight. Patient remains comfortable. Denies any pain in his foot postoperatively. Remains afebrile. Physical Exam Constitutional: WD/WN, vitals as above no acute distress Musculoskeletal: Ankle: + ankle abnormal to inspection (Left heel ulcer: mild bloody drainage on the gauze.); no skin erythema Skin: + ulcer (Left heel: Stable 10 cm x 6 cm ulceration. No erythema.) Psychiatric: A+Ox3, euthymic affect Speech: normal rate/rhythm/volume of speech Results & Data ([facility]) Vital Signs (Past 12 Hours) Vital Signs Temp Pulse Resp BP Pulse Ox 10/02/19 00:00 36.6 C 76 20 145/77 H 94 Laboratory Results Spec: [id number] Collected: 09/30/19 Received: 09/30/[address]: Roman Schroeder D.O. Copy To: Ilir Dickson M.D. Source: Foot,Left OV Order: Ordered: Aer/Janette Cult/Sm Comments: Reason for Exam Left heel Incision and Drainage Comment Posterior Calcaneal Fascia (Callback #[id number]) Procedure Result Verified Site Gram Stain Final 09/30/19 Gram Stain Result No WBCs Seen Many Gram Positive Bacilli Rare Gram Positive Cocci Aero/Janette Cult Preliminary 10/02/19 Organism 1 Corynebacterium species Quantity Moderate Sens No Sensitivities to Follow (1) Diabetic ulcer of left foot Diabetes mellitus type: type 2 Diabetic foot ulcer location: heel Non- pressure ulcer stage: limited to breakdown of skin Qualified Code(s): E11.621 - Type 2 diabetes mellitus with foot ulcer; L97.421 - Non-pressure chronic ulcer of left heel and midfoot limited to breakdown of skin
--- NOTE | 2019-10-02 11:12 | Nephrology Progress Note ---
Date of Service October 02, 2019 Assessment & Plan (1) Acute kidney injury: 69-year-old male with stage IIIA CKD, baseline creatinine 1.2-1.4 with prior history of recurrent acute kidney injury over last several years. Chronic kidney disease thought to be secondary to microvascular disease with longstanding history of diabetes. Admitted to the hospital with left lower extremity nonhealing ulcer. Found to have MACY with creatinine 2.2 and has been stable from 2-2.2 over last few days. Initially received furosemide and was on lisinopril currently both on hold. Has been getting IV hydration. 2D echo showed normal EF and no significant valvular abnormality. MACY most likely hemodynamically mediated with variability in BP with possible underlying impaired autoregulation with diabetes. Renal function slightly improved. -- avoid IV fluids for now, encourage p.o. intake seems to be adequate. Resume IV fluid prior to lower extremity angiogram on Thursday, OK to DC after procedure. -- okay to hold KORI-inhibitor for now however if blood pressure not at goal, can be resumed any time Will follow Subjective Chava was seen and evaluated this morning. He denies any specific symptoms. Appetite has been decent. Blood pressure well controlled. Decent urine output. Renal function slightly improved, electrolyte acceptable. Review of Systems Review of Systems: All systems reviewed & are unremarkable except as noted in HPI & below Physical Exam Constitutional: WD/WN, vitals as above + ill appearing Respiratory: normal respiratory effort, lungs clear to auscultation Cardiovascular: Heart Sounds: normal S1 and normal S2 Extremities: + edema Neurologic: awake; no focal motor deficits and not confused Psychiatric: A+Ox3, euthymic affect Results & Data Vital Signs (Past 12 Hours) Vital Signs Temp Pulse Resp BP Pulse Ox 10/02/19 00:00 36.6 C 76 20 145/77 H 94 PG Care Time/CCT Total # of Minutes Spent Total Time Spent with Patient: Total time spent is greater than 50% in coordination of care (as documented) at patient's floor/unit and/or counseling patient: Coding Level of Care Code 95299 Subseq Hosp Care Lvl 3 Diagnoses Acute kidney injury N17.9
[2019-10-02] MEDS: INSULIN GLARGINE SOLOSTAR 100 UNITS/ML 3 ML PEN SC SCH (12:32)
[2019-10-02] MEDS: cefTRIAXone SODIUM 2,000 MG in DEXTROSE 5% 50 ML IV SCH (14:23)
[2019-10-02] MEDS: ATORVASTATIN 40 MG TAB PO SCH (21:00)
[2019-10-02] MEDS: guaiFENesin SUGAR FREE 200 MG/10 ML UDC PO PRN (21:10)
[2019-10-03] MEDS: HEPARIN SOD 5,000 UNIT/0.5 ML VIAL SQ SCH ×3 (05:20→20:26)
[2019-10-03 06:09] LABS: Basophils # (auto) 0.03 K/uL (0-0.2); Basophils % (auto) 0.4 %; Eosinophils # (auto) 0.51 K/uL (0-0.5); Hemoglobin 11.8 g/dL (14.0-18.0); Immature Granulocytes # (auto) 0.19 K/uL (0.00-0.02); Immature Granulocytes % (auto) 2.2 %; Lymphocytes # (auto) 1.21 K/uL (1.2-3.4); Lymphocytes % (auto) 14.2 %; Mean Corpuscular Hemoglobin 31.6 pg (25-34); Mean Corpuscular Hgb Conc 31.9 g/dL (32-36); Mean Corpuscular Volume 99.2 fL (80-100); Mean Platelet Volume 10.7 fL (7.4-10.4); Monocytes # (auto) 0.72 K/uL (0.11-0.59); Monocytes % (auto) 8.5 %; Neutrophils # (auto) 5.86 K/uL (1.4-6.5); Neutrophils % (auto) 68.7 %; Platelet Count 295 K/uL (130-400); RDW Coefficient of Variation 13.4 % (11.5-14.5); RDW Standard Deviation 48.6 fL (36.4-46.3); Red Blood Count 3.73 M/uL (4.7-6.1); White Blood Count 8.52 K/uL (4.8-10.8)
[2019-10-03 06:41] LABS: BUN Creatinine Ratio 21.8 (10-20); Calcium 8.9 mg/dl (8.5-10.1); Creatinine Clr Calc Pharmacy 46.9 ml/min; Est GFR (African American) 44.7; Est GFR (Non-African American) 38.6; Potassium 4.3 mmol/L (3.5-5.1)
[2019-10-03] MEDS ORDERED: MIDAZOLAM HCL 5 MG/ML 1 ML VIAL ONE (08:26)
[2019-10-03] MEDS ORDERED: fentaNYL citrate 100 MCG/2 ML VIAL ONE (08:26)
[2019-10-03] MEDS ORDERED: NiCARDipine HCL INJ 2.5 MG/ML 10 ML AMP ONE (08:26)
[2019-10-03] MEDS ORDERED: HEPARIN (PORCINE) 1000 UNIT/ML 10 ML (CATH LAB USE ONLY) ONE (08:26)
[2019-10-03] MEDS ORDERED: NITROGLYCERIN/D5W 100MCG/ML 20ML SYR ONE (08:27)
--- NOTE | 2019-10-03 08:28 | Anesthesiology Progress Note ---
Date of Service October 03, 2019 Anesthesia Post Procedure Vital Signs Vital Signs: Temp Pulse Resp BP BP Pulse Ox 10/03/19 07:48 36.4 C L 83 18 154/84 H 95 10/02/19 22:38 36.5 C 84 16 167/77 H 97 10/02/19 15:37 36.6 C 77 19 150/76 H 96 Notes Mental Status: alert / awake / arousable and participated in evaluation Patient Amnestic to Procedure: Yes Nausea / Vomiting: see Notes below Pain: adequately controlled Airway Patency, RR, SpO2: stable & adequate BP & HR: stable & adequate Hydration State: stable & adequate Anesthetic Complications: no major complications apparent and Pt Satisfied with anesthetic care
--- NOTE | 2019-10-03 08:33 | Pre Anesthesia Assessment ---
Date of Service October 03, 2019 Pre Sedation Assessment Vital Signs Temp Pulse Resp BP BP Pulse Ox 10/03/19 07:48 97.5 F L 83 18 154/84 H 95 10/02/19 22:38 97.7 F 84 16 167/77 H 97 10/02/19 15:37 97.9 F 77 19 150/76 H 96 Cardiovascular RRR, no murmur, no edema Respiratory normal respiratory effort, lungs clear to auscultation Pre-Sedation Airway Assessment Smoking Status: Never smoker Hx Sleep Apnea: No Hx Difficult Intubation: No Short, Thick Neck: No Thyromental Distance: > or= 3.5 Finger Breadths Mallampati Class: II ASA: ASA3 Procedure Planning Contraindications for Sedation: none Current Medications Reviewed: Yes Notes The planned sedation has been discussed with the patient. Informed Consent was obtained. I have identified the patient, determined the appropriateness of sedation and have assessed the patient immediately prior to the procedure. All medicine(s) and interventions are by my order.
--- NOTE | 2019-10-03 08:44 | Vascular Medicine ProgressNote ---
Date of Service October 03, 2019 Assessment & Plan (1) Diabetic ulcer of left foot: -- with septic tendinitis, osteomyelitis post debridement 2. PAD -known restenosis of distal SFA stent 3. Acute renal insufficiency 4. Poorly controlled diabetes 5. Coronary artery disease post prior inferior SD 6. Chronic diastolic heart failure POD3 following debridement with orthopedics Now on ceftriaxone Renal function improving Plan for endovascular intervention to Left SFA restenosis today. Subjective No new concerns today. No significant pain at left heel ulcer SCr down to 1.74 Review of Systems Review of Systems: All systems reviewed & are unremarkable except as noted in HPI & below Physical Exam Physical Exam: General: Comfortable, no acute distress Eyes: Sclerae anicteric, extraocular movements intact Lungs: Clear to auscultation bilaterally Cardiac: Regular rate and rhythm Abdomen: Soft, nontender Psych: Alert orient x3, normal affect and mood Extremities/Vascular: -- 2+ radial bilaterally -- 2+ femoral bilaterally -- Left heel ulcer dressed, no surrounding erythema/induration Results & Data Vital Signs (Past 12 Hours) Vital Signs Temp Pulse Resp BP BP Pulse Ox 10/03/19 07:48 97.5 F L 83 18 154/84 H 95 10/02/19 22:38 97.7 F 84 16 167/77 H 97 PG Care Time/CCT Total # of Minutes Spent Total Time Spent with Patient: Total time spent is greater than 50% in coordination of care (as documented) at patient's floor/unit and/or counseling patient: Coding Level of Care Code 33818 Subseq Hosp Care Lvl 2 Diagnoses Diabetic ulcer of left foot E11.621; L97.421 Diabetes mellitus type: type 2 Diabetic foot ulcer location: heel Non-pressure ulcer stage: limited to breakdown of skin (1) Diabetic ulcer of left foot Diabetes mellitus type: type 2 Diabetic foot ulcer location: heel Non- pressure ulcer stage: limited to breakdown of skin Qualified Code(s): E11.621 - Type 2 diabetes mellitus with foot ulcer; L97.421 - Non-pressure chronic ulcer of left heel and midfoot limited to breakdown of skin
--- NOTE | 2019-10-03 09:10 | Infectious Disease Progress Nt ---
Date of Service October 03, 2019 Assessment & Plan (1) Diabetic ulcer of left foot: will change to Rocephin 2g IV daily. follow OR cultures, will need 6 weeks IV abx due to findings of septic tendonitis and heel osteo. will need weekly cbc, cmp, esr while on abx. will plan to follow post d/c from hospital. (2) Cellulitis of foot, left: Admission and Anticipated Discharge Date Admission Date: September 26, 2019 Subjective pt for OR today, wound culture 09/24, 09/27 growing GGS, resistant to clinda. on ctx and tolerating well. creat 1.7 wbc 8. blood cultures negative and final. s/p OR for I&D, tolerated well. afebrile Results & Data ([facility]) Vital Signs (Past 12 Hours) Vital Signs Temp Pulse Resp BP BP Pulse Ox 10/03/19 07:48 36.4 C L 83 18 154/84 H 95 10/02/19 22:38 36.5 C 84 16 167/77 H 97 Laboratory Results Microbiology 09/30/19 08:46 Foot,Left Gram Stain - Final 09/30/19 08:46 Foot,Left Aerobic and Anaerobic Culture - Preliminary Corynebacterium species 09/25/19 23:30 Blood Aerobic Blood Culture - Final No growth in Aerobic bottle after 5 days. 09/25/19 23:30 Blood Anaerobic Blood Culture - Final No growth in Anaerobic bottle after 5 days. 09/25/19 23:10 Blood Aerobic Blood Culture - Final No growth in Aerobic bottle after 5 days. 09/25/19 23:10 Blood Anaerobic Blood Culture - Final No growth in Anaerobic bottle after 5 days. 09/25/19 22:40 Foot,Left Gram Stain - Final 09/25/19 22:40 Foot,Left Wound Culture - Final Group G Beta Strep 09/28/19 11:20 Foot Gram Stain - Final 09/28/19 11:20 Foot Wound Culture - Final Group G Beta Strep PG Care Time/CCT Total # of Minutes Spent Total Time Spent with Patient: Total time spent is greater than 50% in coordination of care (as documented) at patient's floor/unit and/or counseling patient: Coding Level of Care Code 92852 Subseq Hosp Care Lvl 1 Diagnoses Diabetic ulcer of left foot E11.621; L97.421 Diabetes mellitus type: type 2 Diabetic foot ulcer location: heel Non-pressure ulcer stage: limited to breakdown of skin Cellulitis of foot, left L03.116 (1) Diabetic ulcer of left foot Diabetes mellitus type: type 2 Diabetic foot ulcer location: heel Non- pressure ulcer stage: limited to breakdown of skin Qualified Code(s): E11.621 - Type 2 diabetes mellitus with foot ulcer; L97.421 - Non-pressure chronic ulcer of left heel and midfoot limited to breakdown of skin
[2019-10-03] MEDS: INSULIN ASPART 100 UNITS/ML 3 ML PEN SC SCH ×4 (09:55→21:38)
--- NOTE | 2019-10-03 10:02 | Post Anesthesia Assessment ---
Date of Service October 03, 2019 Post Sedation Assessment Vital Signs Temp Pulse Resp BP BP Pulse Ox 10/03/19 07:48 97.5 F L 83 18 154/84 H 95 10/02/19 22:38 97.7 F 84 16 167/77 H 97 10/02/19 15:37 97.9 F 77 19 150/76 H 96 Recovery Score Activity: Moves 4 extremities Respiration: Deep Breath/Cough Circulation: +/-20% PreAnes Value Consciousness: Fully Awake Oxygen Saturation: O2 needed for >90% Post Anesthesia Score: 9 Discharge Sedation Level of Care: Fast Track Phase II Post Sedation Plan On clinical assessment, the patient appears to have tolerated the sedation wit hout complications. Patient is recovering as anticipated. Patient will continue to be monitored by nursing and may be discharged when sedation discharge criteria are met per below protocol. Upon Completions of procedure up to 15 minutes continue every 5 minute vital signs and the P.A.R. score; then discharge to a Phase I or Fast Track to Phase II per the following guidelines: * Discharge Patient to appropriate Phase II area if PAR is 8 or greater or return to pre- procedure baseline. The post - procedure orders will be as directed. * If PAR score is less than 8 or not return to pre-procedure baseline then patient will follow Phase I monitoring till PAR is reached for Phase II. The Phase I may be done in procedure room or may call to secure a Phase I area. * If naloxone or flumazenil are used for reversal, hold in Phase I for continued monitoring from when last reversal dose was given for a minimum of 60 minutes or longer pending the nurse and/or physician discretion of patient condition before discharge to Phase II. Please call the Sedation Physician to re-evaluate and complete post-note for discharge to Phase II area. Do NOT discharge from procedure sedation or Phase 1 until post- sedation evaluation note is complete by procedure /sedation MD Sedation Discharge Instructions to be given to the patient at discharge to home.
--- NOTE | 2019-10-03 10:16 | Operative Report ---
PG Post Operative Report Pre & Post Diagnosis Operation Date: 09/30/19 07:15 Pre-Op Diagnosis: LEFT DIABETIC FOOT ULCER Post-Op Diagnosis: LEFT DIABETIC FOOT ULCER Operation Date: 10/03/19 08:00 <No data on this case meets the specified criteria> I identified the patient and participated in the time-out.: Yes Procedure Operation Date: 10/03/19 08:00 Actual Procedures p Angio Extremity Unilateral - Ian Aden MD Surgeon Roger Aden MD Casino Assistant Manager Brittney Estimated Blood Loss 15 Findings See Below [place] significant aneurysmal or stenotic disease Right lower extremityCommon iliac, external, internal iliac calcified with mild disease. SHELL[employer]ISH [employer]PERATOR calcified with mild to moderate disease, suitable for mechanical closure device Left lower extremity Common iliac calcified with mild disease, 30 to 40% stenosis at bifurcation with internal iliac. Internal iliac with 90% ostial stenosis External iliac, SHELLFISH [employer]ED[employer] OPERATOR, profunda calcified with mild disease Mild SFA disease Distal SFA/popliteal stent patent with 40 to 50% proximal in-stent restenosis and 80 to 90% in-stent restenosis at distal aspect of stent Remainder of popliteal widely patent, three-vessel runoff to the foot with widely patent posterior tibial artery providing direct inline flow to heel ulceration with good angiographic blush Specimens None Anesthesia Type RN Sedation Complications none Disposition Disposition: Recovery Room Indications PAD, non-healing left lower extremity diabetic foot ulcer Description of Procedure Right common femoral access obtained under ultrasound guidance, short 5Fr sheath placed LLE angiogram performed with RIM catheter Quick cross catheter placed to SFA for angiography of distal vessels 6 Fr 45 cm destination sheath placed from right common femoral artery to left SFA Distal SFA/popliteal in-stent stenosis crossed with glide advantage wire and quick cross Distal SFA dilated with 5.0 balloon Distal SFA/popliteal stented segment treated with 6.0 x 100 mm drug-eluting balloon (Lutonix). Post procedure good angiographic result, no evidence of dissection and good 3 vessel run-off. Fluoro: 205 mGy Contrast used: 70 mL Access closure: Starclose Summary: 1. Left lower extremity--30 to 40% common iliac, 90% ostial internal iliac, 80 to 90% distal SFA/popliteal in-stent restenosis with distal 3 vessel runoff 2. 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 3. Successful angioplasty of distal SFA/popliteal in-stent restenosis with 6.0 x 100 mm drug-eluting balloon (Lutonix). Recommendations: Continue DAPT with ASA/Clopidogrel for 1 months Likely transition to PAD dose Xarelto after 1 month Continue ASCVD risk factor modification I attest to the content of the Intraoperative Record and any orders documented therein. Any exceptions are noted below.
--- NOTE | 2019-10-03 10:23 | Nephrology Progress Note ---
Date of Service October 03, 2019 Assessment & Plan (1) Acute kidney injury: 69-year-old male with stage IIIA CKD, baseline creatinine 1.2-1.4 with prior history of recurrent acute kidney injury over last several years. Chronic kidney disease thought to be secondary to microvascular disease with longstanding history of diabetes. Admitted to the hospital with left lower extremity nonhealing ulcer. Found to have MACY with creatinine 2.2 and has been stable from 2-2.2 over last few days. Initially received furosemide and was on lisinopril currently both on hold. Has been getting IV hydration. 2D echo showed normal EF and no significant valvular abnormality. MACY most likely hemodynamically mediated with variability in BP with possible underlying impaired autoregulation with diabetes. Renal function continues to improve. -- avoid IV fluids for now, encourage p.o. intake, seems to be adequate. DC IV fluid -- okay to hold KORI-inhibitor for now however if blood pressure not at goal, can be resumed any time --check renal panel in am, if stable , can be DC tomorrow. Will follow Subjective Chava was seen and evaluated this morning after he came back from OR after LE angioplasty. He denies any specific symptoms. Appetite has been decent. Blood pressure well controlled. Decent urine output. Renal function continues to improve slowly, electrolyte acceptable. Review of Systems Review of Systems: All systems reviewed & are unremarkable except as noted in HPI & below Physical Exam Constitutional: WD/WN, vitals as above + ill appearing Respiratory: normal respiratory effort, lungs clear to auscultation Cardiovascular: Heart Sounds: normal S1 and normal S2 Extremities: + edema Neurologic: awake; no focal motor deficits and not confused Psychiatric: A+Ox3, euthymic affect Results & Data Vital Signs (Past 12 Hours) Vital Signs Temp Pulse Pulse Resp BP BP Pulse Ox 10/03/19 10:05 83 18 171/98 H 93 10/03/19 07:48 36.4 C L 83 18 154/84 H 95 10/02/19 22:38 36.5 C 84 16 167/77 H 97 PG Care Time/CCT Total # of Minutes Spent Total Time Spent with Patient: Total time spent is greater than 50% in coordination of care (as documented) at patient's floor/unit and/or counseling patient: Coding Level of Care Code 00212 Subseq Hosp Care Lvl 2 Diagnoses Acute kidney injury N17.9
[2019-10-03] MEDS ORDERED: CLOPIDOGREL BISULFATE 300 MG TAB PO STA (10:37)
[2019-10-03] MEDS ORDERED: SODIUM CHLORIDE 0.9% 1000ML 1,000 ML IV SCH (10:45)
[2019-10-03] MEDS: DOCUSATE SODIUM 100 MG CAP PO SCH ×2 (10:55→20:26)
[2019-10-03] MEDS: CEROVITE ADV FORMULA TAB PO SCH (10:56)
[2019-10-03] MEDS: ASPIRIN 81 MG ECTAB PO SCH (10:56)
[2019-10-03] MEDS: guaiFENesin SUGAR FREE 200 MG/10 ML UDC PO PRN ×2 (10:56→17:26)
[2019-10-03] MEDS: INSULIN GLARGINE SOLOSTAR 100 UNITS/ML 3 ML PEN SC SCH (12:44)
--- NOTE | 2019-10-03 13:31 | Orthopedic Progress Note ---
Date of Service October 03, 2019 Assessment & Plan (1) Diabetic ulcer of left foot: POD #3 s/p 1. Left heel incision and drainage with evacuation abscess. 2. Debridement of 10 cm x 6 cm diabetic neuropathic ulcer. 3. Debridement Achilles tendon. 4. Debridement left calcaneal periosteum. 5. Debridement left heel fascia. 6. Implantation of Stimulan antibiotic beads Intraop cultures growing corynebacterium species. Continue IV Rocephin. NWB LLE at all times. Plan will be to keep dressing in place for 2 more days then have wound nursing change the dressing prn. Waffle boots for the LLE to avoid pressure on the heel. D/C planning per medicine. Ortho to sign off at this time. Will follow up outpatient. Admission and Anticipated Discharge Date Admission Date: September 26, 2019 Subjective No complaints LLE. Somnolent from procedure earlier today. Physical Exam Constitutional: WD/WN, vitals as above no acute distress Musculoskeletal: Ankle: + ankle abnormal to inspection (Left heel ulcer: mild bloody drainage on the gauze.); no skin erythema Skin: + ulcer (Left heel: Stable 10 cm x 6 cm ulceration. No erythema.) Psychiatric: A+Ox3, euthymic affect Speech: normal rate/rhythm/volume of speech Results & Data ([facility]) Vital Signs (Past 12 Hours) Vital Signs Temp Pulse Pulse Resp BP BP Pulse Ox 10/03/19 11:05 88 18 176/87 H 93 10/03/19 10:50 99 H 19 187/96 H 92 10/03/19 10:35 36.4 C L 85 19 188/94 H 93 10/03/19 10:20 86 18 166/95 H 93 10/03/19 10:05 83 18 171/98 H 93 10/03/19 07:48 36.4 C L 83 18 154/84 H 95 Pulse Ox 10/03/19 11:05 10/03/19 10:50 10/03/19 10:35 93 10/03/19 10:20 10/03/19 10:05 10/03/19 07:48 (1) Diabetic ulcer of left foot Diabetes mellitus type: type 2 Diabetic foot ulcer location: heel Non- pressure ulcer stage: limited to breakdown of skin Qualified Code(s): E11.621 - Type 2 diabetes mellitus with foot ulcer; L97.421 - Non-pressure chronic ulcer of left heel and midfoot limited to breakdown of skin
[2019-10-03] MEDS: cefTRIAXone SODIUM 2,000 MG in DEXTROSE 5% 50 ML IV SCH (13:50)
--- NOTE | 2019-10-03 15:52 | Hospitalist Progress Note ---
Date of Service October 03, 2019 Assessment & Plan (1) Cellulitis of foot, left: Patient's cultures on 09/27 of the wound are showing GBS, surgical cultures on 09/29 with corynebacterium. ID suggests 6wks IV abx. PICC ordered today (d/w pt). medically likely stable to go home in 1-2 days, but he notes being in no hurry and wanting to stay in hospital, believing it to be safer, despite my efforts to explain to him otherwise. (2) PAD (peripheral artery disease): endovascular procedure done today - appears to have been successful. (3) Acute renal insufficiency: ongoing slow improvement in creatinine. continue to monitor. probably will resume ACEi tomorrow if ongoing improvement (since he had dye today) (4) CAD in [place] artery: Patient is on aspirin, Plavix, and Lipitor; no complaints of sx today (5) Diabetes type 2, uncontrolled: continue titration of insulins, follow sugars (6) Hypertension: lisinopril on hold until tomorrow. running quite high, but asymptomatic. would want better long-term control obviously, but acute care evidence suggesting that we can risk more harm than good by "treating the number" when he's asymptomatic. follow. (7) DVT prophylaxis: heparin SQ Admission and Anticipated Discharge Date Admission Date: September 26, 2019 Subjective feeling ok overall. was hungry - now eating. no new complaints. doesn't offer much of anything in the way of spontaneous HPI/ROS but denies any complaints at this time. Review of Systems Review of Systems: All systems reviewed & are unremarkable except as noted in HPI & below Physical Exam Physical Exam: gen - awake, pleasant nad. heent nc at mmm. cardio reg breathing unlabored no accessory muscles good effort skin no rashes no pallor or icterus, feet with chronic changes on toes, heel best described by ortho note today. neuro cn 2-12 grossly intact gross motor intact. Results & Data Results & Data ([facility]) Vital Signs (Past 12 Hours) Vital Signs Temp Pulse Pulse Resp BP BP Pulse Ox 10/03/19 15:29 97.7 F 90 17 196/97 H 95 10/03/19 11:05 88 18 176/87 H 93 10/03/19 10:50 99 H 19 187/96 H 92 10/03/19 10:35 97.5 F L 85 19 188/94 H 93 10/03/19 10:20 86 18 166/95 H 93 10/03/19 10:05 83 18 171/98 H 93 10/03/19 07:48 97.5 F L 83 18 154/84 H 95 Pulse Ox 10/03/19 15:29 10/03/19 11:05 10/03/19 10:50 10/03/19 10:35 93 10/03/19 10:20 10/03/19 10:05 10/03/19 07:48 PG Care Time/CCT Total # of Minutes Spent Total Time Spent with Patient: Total time spent is greater than 50% in coordination of care (as documented) at patient's floor/unit and/or counseling patient: Coding Level of Care Code 04179 Subseq Hosp Care Lvl 3 Diagnoses Cellulitis of foot, left L03.116 PAD (peripheral artery disease) I73.9 Acute renal insufficiency N28.9 CAD in [place] artery I25.10 Diabetes type 2, uncontrolled E11.649 Glycemic state: with hypoglycemia Coma presence: without coma Hypertension I10 DVT prophylaxis Z29.9 (1) Diabetes type 2, uncontrolled Glycemic state: with hypoglycemia Coma presence: without coma Qualified Code(s): E11.649 - Type 2 diabetes mellitus with hypoglycemia without coma
[2019-10-03] MEDS: ATORVASTATIN 40 MG TAB PO SCH (20:26)
[2019-10-04] MEDS: HEPARIN SOD 5,000 UNIT/0.5 ML VIAL SQ SCH ×3 (05:07→21:19)
[2019-10-04 07:35] LABS: Albumin Level 2.7 gm/dl (3.4-5.0); BUN Creatinine Ratio 22.8 (10-20); Calcium 8.8 mg/dl (8.5-10.1); Creatinine Clr Calc Pharmacy 50.4 ml/min; Est GFR (African American) 49.1; Est GFR (Non-African American) 42.4; Phosphorus 3.3 mg/dl (2.5-4.9); Potassium 4.2 mmol/L (3.5-5.1)
[2019-10-04] MEDS: CLOPIDOGREL BISULFATE 75 MG TAB PO SCH (08:46)
[2019-10-04] MEDS: DOCUSATE SODIUM 100 MG CAP PO SCH ×2 (08:46→21:16)
[2019-10-04] MEDS: CEROVITE ADV FORMULA TAB PO SCH (08:46)
[2019-10-04] MEDS: ASPIRIN 81 MG ECTAB PO SCH (08:46)
[2019-10-04] MEDS: guaiFENesin SUGAR FREE 200 MG/10 ML UDC PO PRN ×2 (08:47→21:21)
[2019-10-04] MEDS: INSULIN GLARGINE SOLOSTAR 100 UNITS/ML 3 ML PEN SC SCH ×2 (08:48→21:17)
[2019-10-04] MEDS: INSULIN ASPART 100 UNITS/ML 3 ML PEN SC SCH ×4 (08:49→21:18)
--- NOTE | 2019-10-04 11:41 | Nephrology Progress Note ---
Date of Service October 04, 2019 Assessment & Plan (1) Acute kidney injury: 69-year-old male with stage IIIA CKD, baseline creatinine 1.2-1.4 with prior history of recurrent acute kidney injury over last several years. Chronic kidney disease thought to be secondary to microvascular disease with longstanding history of diabetes. Admitted to the hospital with left lower extremity nonhealing ulcer. Found to have MACY with creatinine 2.2 and has been stable from 2-2.2 over last few days. Initially received furosemide and was on lisinopril currently both on hold. Has been getting IV hydration. 2D echo showed normal EF and no significant valvular abnormality. MACY most likely hemodynamically mediated with variability in BP with possible underlying impaired autoregulation with diabetes. Renal function continues to improve. He -- avoid IV fluids for now, encourage p.o. intake -- increase lisinopril to 10 milligrams p.o. daily and increase as needed, goal blood pressure less than 130/80 --okay to be discharged with outpatient lab monitoring. Will sign off, please contact me if any further assistance needed, thank you for the consult. Libby Larsen was seen and evaluated this morning. He denies any specific symptoms. Appetite has been decent. Blood pressure has been high. Decent urine output. Renal function continues to improve slowly, electrolyte acceptable. Review of Systems Review of Systems: All systems reviewed & are unremarkable except as noted in HPI & below Physical Exam Constitutional: WD/WN, vitals as above + ill appearing Respiratory: normal respiratory effort, lungs clear to auscultation Cardiovascular: Heart Sounds: normal S1 and normal S2 Extremities: + edema Neurologic: awake; no focal motor deficits and not confused Psychiatric: A+Ox3, euthymic affect Results & Data Vital Signs (Past 12 Hours) Vital Signs Temp Pulse Pulse Resp BP BP Pulse Ox 10/04/19 11:21 37.1 C 87 18 166/81 H 92 10/04/19 08:00 79 10/04/19 07:46 36.5 C 77 18 155/76 H 95 10/04/19 04:00 37.0 C 88 18 157/81 H 97 10/04/19 00:25 79 10/03/19 23:48 37.2 C 83 18 162/86 H 96 PG Care Time/CCT Total # of Minutes Spent Total Time Spent with Patient: Total time spent is greater than 50% in coordination of care (as documented) at patient's floor/unit and/or counseling patient: Coding Level of Care Code 78910 Subseq Hosp Care Lvl 3 Diagnoses Acute kidney injury N17.9
[2019-10-04] MEDS: lisinopriL 10 MG TAB PO SCH (12:24)
[2019-10-04] MEDS: cefTRIAXone SODIUM 2,000 MG in DEXTROSE 5% 50 ML IV SCH (15:09)
--- NOTE | 2019-10-04 16:19 | Hospitalist Progress Note ---
Date of Service October 04, 2019 Assessment & Plan (1) Cellulitis of foot, left: Patient's cultures on 09/27 of the wound are showing GBS, surgical cultures on 09/29 with corynebacterium. ID suggests 6wks IV abx. awaiting PICC placement then appears stable for SNF. (2) PAD (peripheral artery disease): stable post endovascular procedure. continue med management. (3) Acute renal insufficiency: ongoing slow improvement in creatinine. continue to monitor. resume ACEi today. (4) CAD in [place] artery: Patient is on aspirin, Plavix, and Lipitor; has no complaints of these sx today (5) Diabetes type 2, uncontrolled: continue titration of insulins, follow sugars - was running a little high - increased today (6) Hypertension: running a little high - nephrology increased lisinopril today (7) DVT prophylaxis: heparin SQ (8) Discharge planning issues: safe for med/surg, anticipate SNF hopefully tomorrow Admission and Anticipated Discharge Date Admission Date: September 26, 2019 Subjective feeling ok. no significant foot pain. no cp no sob. no other new issues tod ay. Review of Systems Review of Systems: All systems reviewed & are unremarkable except as noted in HPI & below Physical Exam Physical Exam: gen aao pleasant nad heent nc at mmm breathing unlabored no accessory muscles good effort skin no rashes no pallor or icterus no tracking erythema L foot. Results & Data Results & Data ([facility]) Vital Signs (Past 12 Hours) Vital Signs Temp Pulse Pulse Resp BP BP Pulse Ox 10/04/19 15:22 98.6 F 77 18 144/66 H 97 10/04/19 11:21 98.8 F 87 18 166/81 H 92 10/04/19 08:00 79 10/04/19 07:46 97.7 F 77 18 155/76 H 95 PG Care Time/CCT Total # of Minutes Spent Total Time Spent with Patient: Total time spent is greater than 50% in coordination of care (as documented) at patient's floor/unit and/or counseling patient: Coding Level of Care Code 02615 Subseq Hosp Care Lvl 3 Diagnoses Cellulitis of foot, left L03.116 PAD (peripheral artery disease) I73.9 Acute renal insufficiency N28.9 CAD in [place] artery I25.10 Diabetes type 2, uncontrolled E11.649 Glycemic state: with hypoglycemia Coma presence: without coma Hypertension I10 DVT prophylaxis Z29.9 Discharge planning issues Z02.9 (1) Diabetes type 2, uncontrolled Glycemic state: with hypoglycemia Coma presence: without coma Qualified Code(s): E11.649 - Type 2 diabetes mellitus with hypoglycemia without coma
[2019-10-04] MEDS: ATORVASTATIN 40 MG TAB PO SCH (21:18)
[2019-10-05] MEDS: HEPARIN SOD 5,000 UNIT/0.5 ML VIAL SQ SCH ×3 (05:43→20:36)
[2019-10-05 07:16] LABS: Albumin Level 2.6 gm/dl (3.4-5.0); Calcium 8.7 mg/dl (8.5-10.1); Creatinine Clr Calc Pharmacy 58.3 ml/min; Est GFR (African American) 58.7; Est GFR (Non-African American) 50.6; Phosphorus 3.5 mg/dl (2.5-4.9); Potassium 4.1 mmol/L (3.5-5.1)
[2019-10-05] MEDS: INSULIN ASPART 100 UNITS/ML 3 ML PEN SC SCH ×4 (08:45→20:43)
[2019-10-05] MEDS: INSULIN GLARGINE SOLOSTAR 100 UNITS/ML 3 ML PEN SC SCH ×2 (08:47→20:38)
[2019-10-05] MEDS: CEROVITE ADV FORMULA TAB PO SCH (09:31)
[2019-10-05] MEDS: ASPIRIN 81 MG ECTAB PO SCH (09:31)
[2019-10-05] MEDS: CLOPIDOGREL BISULFATE 75 MG TAB PO SCH (09:31)
[2019-10-05] MEDS: lisinopriL 10 MG TAB PO SCH (09:31)
[2019-10-05] MEDS: DOCUSATE SODIUM 100 MG CAP PO SCH ×2 (09:31→20:44)
[2019-10-05] MEDS: guaiFENesin SUGAR FREE 200 MG/10 ML UDC PO PRN ×2 (09:40→21:06)
[2019-10-05] MEDS: cefTRIAXone SODIUM 2,000 MG in DEXTROSE 5% 50 ML IV SCH (14:15)
--- NOTE | 2019-10-05 17:45 | Hospitalist Progress Note ---
Date of Service October 05, 2019 Assessment & Plan (1) Cellulitis of foot, left: Patient's cultures on 09/27 of the wound are showing GBS, surgical cultures on 09/29 with corynebacterium. ID suggests 6wks IV abx. pt declined PICC placement until 10/04 in afternoon; after PICC in will be good for transfer to SNF for ongoing rocephin and PT/OT given NWB foot (2) PAD (peripheral artery disease): stable post endovascular procedure. continue med management. no sx. (3) Acute renal insufficiency: ongoing slow improvement in creatinine. continue to monitor. titrate ACEi (4) CAD in [place] artery: Patient is on aspirin, Plavix, and Lipitor; has no complaints of these sx today (5) Diabetes type 2, uncontrolled: continue titration of insulins, follow sugars - was running a little high - increased today (6) Hypertension: titrate ACEi and/or add other meds if needed (7) DVT prophylaxis: heparin SQ (8) Discharge planning issues: for SNF once PICC placed and approved/accepted. Admission and Anticipated Discharge Date Admission Date: September 26, 2019 Subjective feeling ok. no cp no sob. no f/c/s. foot feels OK. d/w wound nurse - will need ongoing dressing changes and possibly down the road debridement depending on progress but not needed now - would be safe for outpt wound f/u Review of Systems Review of Systems: All systems reviewed & are unremarkable except as noted in HPI & below Physical Exam Physical Exam: gen pleasant nad heent nc at mmm breathing unlabored no accessory muscles good effort skin no rashes no pallor or icterus neuro no focal deficits. no tracking erythema of leg. Results & Data Results & Data ([facility]) Vital Signs (Past 12 Hours) Vital Signs Temp Pulse Resp BP BP Pulse Ox 10/05/19 15:08 97.9 F 84 20 166/69 H 94 10/05/19 12:51 95 10/05/19 12:00 97.5 F L 85 20 167/80 H 94 10/05/19 06:20 97.7 F 79 18 137/73 95 PG Care Time/CCT Total # of Minutes Spent Total Time Spent with Patient: Total time spent is greater than 50% in coordination of care (as documented) at patient's floor/unit and/or counseling patient: Coding Level of Care Code 42427 Subseq Hosp Care Lvl 3 Diagnoses Cellulitis of foot, left L03.116 PAD (peripheral artery disease) I73.9 Acute renal insufficiency N28.9 CAD in [place] artery I25.10 Diabetes type 2, uncontrolled E11.649 Glycemic state: with hypoglycemia Coma presence: without coma Hypertension I10 DVT prophylaxis Z29.9 Discharge planning issues Z02.9 (1) Diabetes type 2, uncontrolled Glycemic state: with hypoglycemia Coma presence: without coma Qualified Code(s): E11.649 - Type 2 diabetes mellitus with hypoglycemia without coma
[2019-10-05] MEDS: ATORVASTATIN 40 MG TAB PO SCH (20:39)
[2019-10-06] MEDS: HEPARIN SOD 5,000 UNIT/0.5 ML VIAL SQ SCH ×2 (05:49→13:38)
[2019-10-06] MEDS: CEROVITE ADV FORMULA TAB PO SCH (08:31)
[2019-10-06] MEDS: CLOPIDOGREL BISULFATE 75 MG TAB PO SCH (08:31)
[2019-10-06] MEDS: lisinopriL 10 MG TAB PO SCH (08:32)
[2019-10-06] MEDS: ASPIRIN 81 MG ECTAB PO SCH (08:32)
[2019-10-06] MEDS: INSULIN ASPART 100 UNITS/ML 3 ML PEN SC SCH ×2 (08:34→12:06)
[2019-10-06] MEDS: INSULIN GLARGINE SOLOSTAR 100 UNITS/ML 3 ML PEN SC SCH (08:35)
[2019-10-06] MEDS: DOCUSATE SODIUM 100 MG CAP PO SCH (08:38)
[2019-10-06] MEDS: cefTRIAXone SODIUM 2,000 MG in DEXTROSE 5% 50 ML IV SCH (13:35)
--- NOTE | 2019-10-06 19:44 | Discharge Summary ---
Date of Service October 06, 2019 Admission HPI Per Admitting Provider The patient is a 69-year-old male with a past medical history including and non- STEMI, chronic kidney disease stage III, peripheral neuropathy, neurogenic bladder, idiopathic polyneuropathy, diabetes mellitus, peripheral vascular disease, CHF, PAD, macrocytic anemia, anemia of chronic disease, stage III pressure ulcer of left heel, chronic combined systolic and diastolic CHF, vitamin D deficiency, BPH, hyperlipidemia, MSSA septicemia, recurrent UTI, and history of diabetic foot ulcer. He presents to the emergency department with bleeding from his left heel which is as noted earlier in the day today. He has been followed by the wound care clinic in the outpatient setting. He notes no new trauma to the area. He denies any recent travels or sick exposures. He denies walking barefoot. Principal Diagnosis diabetic foot infection/osteomyelitis Discharge Exam gen pleasant nad heent nc at mmm breathing unlabored no accessory muscles good effort skin no rashes foot dressed no tracking erythema Discharge Data Allergies Allergy/AdvReac Type Severity Reaction Status Date / Time poliomyelitis vaccine, live Allergy Unknown Unknown Verified 09/25/19 23:57 oral Consultations 09/26/19 00:18 ED Decision to Admit Stat 09/26/19 02:34 Consult Case Management - Discharge Planning Routine 09/26/19 11:50 Consult Wound Care Provider Routine 09/28/19 11:38 Consult Cardiology Routine Consult Orthopedic Surgery Routine 09/29/19 10:00 Consult Infectious Diseases Routine 09/30/19 10:23 Consult Nephrology Routine Procedures Performed Operation Date: 09/30/19 07:15 Actual Procedures p Debridement of left achilles, fascia, and periosteum, Incision and drainage of left heel abscess, Debridement of left heel ulcer 10cm x 6cm, Implantation of antibiotic beads(Left) - Roman Schroeder DO Operation Date: 10/03/19 08:00 Actual Procedures p Angio Extremity Unilateral - Ian Aden MD s Cineradiography w/Routine Exam - Ian Aden MD s Ultrasound Vascular Access - Ian Aden MD s Femoral Popliteal Balloon - Ian Aden MD s Placement Art Occlusive Device - Ian Aden MD s SC Select Cath ALEP 3rd Order - Ian Aden MD Ordered Studies 09/26/19 14:45 MR ankle LT wo con Routine 09/27/19 10:30 US venous doppler LE BI Routine 09/29/19 16:22 US duplex renal artery Routine 10/03/19 08:37 CL Cath Imgs for PACS use only Routine Hospital Course (1) Cellulitis of foot, left: Patient's cultures on 09/27 of the wound are showing GBS, surgical cultures on 09/29 with corynebacterium. ID suggests 6wks IV abx. PICC in, stable for discharge to SNF. PT/OT eval and treat. (2) PAD (peripheral artery disease): stable post endovascular procedure. continue med management. no sx. (3) Acute renal insufficiency: ongoing improvement in creatinine. continue to monitor periodically. titrate ACEi as outpt (4) CAD in [place] artery: Patient is on aspirin, Plavix, and Lipitor; stable during his stay (5) Diabetes type 2, uncontrolled: continue basal bolus insulin management. (6) Hypertension: titrate ACEi and/or add other meds if needed as outpt. control improving. (7) DVT prophylaxis: heparin SQ (8) Discharge planning issues: SNF w rehab Total Time Total Time Spent Total Time Spent (In Minutes): <30 Discharge Plan Discharge Items Patient Disposition: Transfer [facility] Reason For Visit: DIABETIC FOOT ULCER, FLUID OVERLOAD Discharge Diagnosis: diabetic foot ulcer Activity: Per Instructions section Activity Comment: Non weight bearing LLE Weightbearing: Left non-weightbearing Non-emergency contact: Primary Care Provider and Surgeon Call non-emergency contact if: you have any medication questions, your symptoms worsen and your temperature is above 101 Follow-up/Referrals: Hayley Watson MD [Primary Care Provider] - Roman Schroeder DO [Surgeon] - (Follow up with Dr. Schroeder's clinic ~1 week after discharge.) Diet: Carb Consistent or DM2 Addtl Attending Provider Instructions: diabetic foot infection -for 6wks of IV rocephin presumptively --> 36 more doses --> course possibly may need to be modified based on how he is doing in oupatient follow up -had vascular procedure with Dr Aden to open up blood flow to foot - ongoing med management, this has been stable -follow up with ortho and wound care for ongoing evaluation of the foot MACY on CKD - improved - creatinine now in baseline range. 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 SPECIAL CARE INSTRUCTIONS: * Some drainage onto the dressing is normal and is no cause for alarm. * Some swelling is natural especially after walking. * When resting, keep your foot elevated above the level of your heart. * Call [facility] if you notice: -Increased drainage -Fever over 101 degrees F -Severe constant pain BANDAGE: * Leave bandage/cast in place unless otherwise directed. * Keep bandage/cast dry at all times. FOLLOW UP VISIT WITH DR. SCHROEDER If appointment is not already scheduled: Please call [facility] after you get home today to schedule a follow-up appointment for 1 week after hospital discharge with Dr. Schroeder at . Pending Studies at Discharge: No Stand-Alone Forms: My [facility] Skilled Items Patient informed of condition?: Yes DNR: No Discharge Level of Care: Skilled Communicable Disease: No (foot infection not resistant organisms, did have VRE culture from 10/2018) Discharge Prognosis: Improving Lines: PICC Urinary Catheter: No Medications and DC Order Prescriptions: New lisinopril 10 mg Tablet 10 mg PO DAILY Qty: 30 RF: 0 insulin aspart U-100 [Novolog Flexpen U-100 Insulin] 100 unit/mL (3 mL) Insulin Pen 1 unit SC AC Qty: 1 RF: 0 Lantus Solostar U-100 Insulin 100 unit/mL (3 mL) Insulin Pen 5 unit SC HS Qty: 1 RF: 0 Lantus Solostar U-100 Insulin 100 unit/mL (3 mL) Insulin Pen 14 unit SC QAM Qty: 1 RF: 0 oxycodone 5 mg Tablet 5 mg PO Q4H PRN (Reason: pain) Qty: 10 RF: 0 ceftriaxone 2 gram recon soln 2 gm IV DAILY Qty: 36 RF: 0 Continued aspirin [Adult Aspirin Regimen] 81 mg tablet,delayed release (DR/EC) 81 mg PO DAILY RF: 0 atorvastatin [Lipitor] 40 mg tablet 40 mg PO HS RF: 0 furosemide [Lasix] 40 mg tablet 40 mg PO DAILY Qty: 90 RF: 3 clopidogrel [Plavix] 75 mg tablet 75 mg PO DAILY Qty: 30 RF: 0 (DME) OneTouch Verio strip See Dose Instructions .ROUTE .MEDSUPPLY Qty: 10 RF: 0 multivitamin with minerals Tablet 1 tab PO DAILY RF: 0 Discontinued lisinopril 2.5 mg tablet 2.5 mg PO DAILY Qty: 30 RF: 5 Lantus U-100 Insulin 100 unit/mL solution 28 units SC QAM RF: 0 Discharge Orders: Discharge Order (Routine); Ordered 10/06/19 Ordered By: Rigoberto Oneill/Other Patient Handouts: Diabetes Mold Runner Complications, Diabetes Healthy Meals, Diabetes Exercise Benefits, Diabetes Manage A1C Test Admission Data Admit Date/Time: 09/26/19 01:33 Attending Provider: Rigoberto Cortés Admit Provider: Ilir Dickson Primary Care Provider: Hayley Watson V. Other Providers: Jaquan Burnett ; Aurelio Seals [place] ; Ilir Dickson ; Demetrio Delgado ; Ian Aden ; Alex Villafana ; Grace Avalos ; Luis Hugo Other Interventions: Discharge Summary Assessment (RN) Last Done: 10/06/19 11:36 DC Date/Time DO NOT enter until pt leaves facility: 10/06/19 14:45 Coding Level of Care Code D/C Day Management <30 mins Diagnoses Cellulitis of foot, left L03.116 PAD (peripheral artery disease) I73.9 Acute renal insufficiency N28.9 CAD in [place] artery I25.10 Diabetes type 2, uncontrolled E11.649 Glycemic state: with hypoglycemia Coma presence: without coma Hypertension I10 DVT prophylaxis Z29.9 Discharge planning issues Z02.9
== END 2019-10-06 14:45 | DRG 628 ==
LOC: ED 22:20 → SUATTDRO 09-26 01:33 → 2N 09-26 01:33 → 2S 10-03 10:41 → 2W 10-04 16:19
PROC: CLB.AEU (2019-10-03 08:00)

== ENCOUNTER 2022-01-15 10:44 | Inpatient (IN) ==
--- NOTE | 2022-01-15 10:50 | Emergency Department Note ---
Impression & Plan Sepsis, Hypoglycemia, Elevated troponin I level, Hypothermia, Acute dehydration ED Provider Note NAME: BHUMI GALEAS AGE: 72 SEX: M : 1950 ARRIVES VIA: Ambulance INFORMANT: Patient, ED PROVIDER(S): Keenan Penn MD Chief Complaint: Hyperglycemia HPI: Patient presents due to concern for being hypoglycemic. The patient was found at his [facility] to be diaphoretic soaked in urine with a BSG at 25. Patient was reportedly not febrile. Patient did receive 2 A of D10 in route. Patient is awake alert follows commands and denies any acute complaints or pain. Patient was reportedly found unresponsive initially at [facility]. The patient had been combative seem to improve after being given the D10. The patient remains confused and did take his insulin this morning but is not sure a s to how much. ROS: See HPI for pertinent positives and negatives. A total of 10 systems were revie wed and otherwise negative. May be limited given the patient's recent hypoglycemia and confusion. Past medical history: See below Surgical history: See below Social history: See below Physical Exam: GENERAL: Ill in appearance, wearing a mask. EYE EXAM: Normal conjunctiva. PERRL, no anisocoria and EOM's grossly intact w/o pain. OROPHARYNX: Moist mucus membranes. Grossly normal dentition. NECK: Supple, no nuchal rigidity, no adenopathy, non-tender. No signs of meningismus. LUNGS: Clear to auscultation. Normal chest wall mechanics. HEART: Tachycardic and regular, no MRG. ABDOMEN: Abdomen soft, non-tender, normo-active bowel sounds, no masses, no rebound or guarding. BACK: No CVA TTP. SKIN: Healing ulceration to the medial portion of the distal portion of the left foot approximately 2 x 2 cm, appears clean without any surrounding erythema or drainage. No crepitus. UPPER EXTREMITIES: Upper extremities are grossly normal. LOWER EXTREMITIES: Grossly normal, no edema. NEURO EXAM: Awake and alert, follows basic commands, moves all 4 extremities. No obvious dysarthria. Differential diagnoses: Sepsis, UTI, pneumonia, metabolic, electrolyte abnormalities, cardiac sources, intracerebral event, toxicologic, neurologic, as well as other pathologies. Course: Patient was seen and evaluated the bedside. Full history physical exam was performed. EKG interpreted by me Sinus tachycardia, rate of 102, normal axis. PVC noted. Imaging Studies: See Below Cardiac monitoring: An order was placed for continuous cardiac monitoring. The monitor shows a rate of 112 with tachycardic and regular rhythm. MDM: Patient did have bladder completed. Patient reportedly was afebrile. I was informed by nursing around 35 minutes later the patient had a temperature rectally at 33. I did order a room warmer additional fluids blood cultures lactate and empiric antibiotics. The patient does have remote history of a left foot infection. Patient does have a healing ulceration to the left foot. Patient was seen due to concern for possible sepsis. The patient did arrive tachycardic and had been hypoglycemic. The patient was not hypotensive initially but the patient was hypothermic. Patient does have a foot ulceration which could be a potential source. Chest x-ray did not show any obvious consolidation. Patient CT of the head is negative. Given the unknown source CT abdomen pelvis was obtained in light of the patient's white count. The patient does have a calcified gallbladder wall which is unchanged from prior the patient does have nonspecific perinephric stranding without evidence of hydro or other acute abnormality. Urinalysis does not show any obvious infection. COVID- negative. I did speak the on-call hospitalist JOSE Mcallister and patient was admitted by Dr. Laura. Critical Care: I have personally spent 47 minutes of critical care time in direct management of this patient. This includes bedside care, interpretation of diagnostic studies, and testing, discussion with consultants, patient, and family members, and other require inpatient management activities. This 47 minutes is in excess of all separately billable procedures. Past Med/Surg History Medical History Abscess Acute blood loss anemia Acute kidney injury Acute renal insufficiency Altered mental status Anemia due to chronic kidney disease ATN (acute tubular necrosis) Bilateral leg edema CAD in [place] artery Chronic kidney disease, stage 4 (severe) Chronic ulcer of left heel Cognitive disorder Diabetes mellitus with diabetic polyneuropathy DM II (diabetes mellitus, type II), controlled Elevated serum creatinine Fluid overload Foot swelling Gait disturbance Heel ulcer Hematuria HTN (hypertension) Hydronephrosis Hyperkalemia Hypokalemia Hypomagnesemia Hypoxia Incomplete bladder emptying MSSA (methicillin susceptible Staphylococcus aureus) MSSA (methicillin susceptible Staphylococcus aureus) septicemia Neurogenic bladder Nocturia Osteomyelitis Peripheral neuropathy Peripherally inserted central catheter in place PICC (peripherally inserted central catheter) in place Pneumonia Preop examination Proteinuria Proteus infection Recurrent UTI Renal insufficiency Sepsis Sepsis Stage 3b chronic kidney disease Status post debridement of ulcer of heel Subsequent non-ST elevation (NSTEMI) myocardial infarction UTI (urinary tract infection) due to urinary indwelling catheter Venous ulcer of leg Yeast dermatitis Surgical History H/O angioplasty H/O oral surgery History of tonsillectomy Family History Other No pertinent family history Denies family history of Ovarian cancer Prostate cancer Myocardial infarction Breast cancer Colorectal cancer Social History Smoking Status: Never smoker Second Hand Exposure: No; Hx Alcohol Use: No Hx Substance Use: No Preferred Language: Arabic Communication Ability: Effective Visual Impairment: No Limitations Baseball Inspector Required: No Beliefs That Will Affect Care: None marital status: Single Current Living Situation: Alone Current Living Situation Comment: lives alone in [facility] current occupational status: retired Feels Safe at Home: Yes Childhood Exposure to Second-Hand Smoke: No caffeine: Yes during the past year weight has: remained stable Dental Care, Regularly: Yes Physical Activity Frequency: Does not Exercise Seatbelt Use: always Sunscreen Use: No Gender Identity: Male Assistive Devices: Glasses and Oxygen - at Night Allergies Allergies Allergy/AdvReac Type Severity Reaction Status Date / Time poliomyelitis vaccine, live Allergy Unknown Unknown Verified 01/15/22 15:36 oral Home Meds Home Medications Medication Instructions Recorded Confirmed docusate sodium 100 mg capsule 100 mg PO BID 01/10/20 01/15/22 (Colace) glucagon (human recombinant) 1 mg 1 mg subcut UD PRN hypoglycemia 01/10/20 01/15/22 solution for injection (GlucaGen HypoKit) aspirin 81 mg tablet,delayed 81 mg PO DAILY@0900 04/10/20 01/15/22 release (Adult Aspirin Regimen) acetaminophen 325 mg capsule 325 mg PO QID PRN Fever Or Pain 06/05/20 01/15/22 albuterol sulfate 90 mcg/actuation 2 inh inhalation Q6H PRN Shortness 06/05/20 01/15/22 breath activated powder inhaler Of Breath Or Wheezing polyethylene glycol 3350 17 17 g PO DAILY PRN Constipation 06/05/20 01/15/22 gram/dose oral powder (Miralax) amoxicillin 500 mg-potassium 1 tab PO BID 11/01/21 01/15/22 clavulanate 125 mg tablet Previous Rx's Medication Instructions Recorded rivaroxaban 2.5 mg tablet (Xarelto) 2.5 mg PO BID #60 tabs 01/05/20 atorvastatin 40 mg tablet (Lipitor) 40 mg PO HS #90 tabs 04/05/21 blood sugar diagnostic (Accu-Chek #100 ea 04/12/21 Erin Plus test strp) ammonium lactate 12 % lotion 1 applic topical BID #400 grams 04/24/21 lancets 30 gauge (ReadyLance #100 ea 05/09/21 Safety Lancets) pen needle, diabetic, safety 30 #300 ea 06/25/21 gauge x 5/16" (Easy Touch Safety Pen Needle) furosemide 40 mg tablet (Lasix) 40 mg PO BID #180 tabs 08/06/21 Novolin R Flexpen 100 unit/mL (3 See Rx Instructions .Route 08/23/21 mL) subcutaneous insulin pen .COMPLEX #15 mL (insulin regular human) ferrous gluconate 324 mg (37.5 mg 324 mg PO BID #60 tabs 09/10/21 iron) tablet multivitamin with minerals 1 tab PO DAILY #90 tabs 10/08/21 Therems-M 9 mg iron-400 mcg tablet 1 tab PO DAILY #90 tabs 10/28/21 (ayjigetv-romu-KC-calcium-mins) calcitriol 0.25 mcg capsule 0.25 mcg PO DAILY #90 caps 12/04/21 Lantus Solostar U-100 Insulin 100 See Rx Instructions .Route 12/12/21 unit/mL (3 mL) subcutaneous pen .COMPLEX #15 mL (insulin glargine) Results & Data (ED) Vital Signs Vital Signs - 24 hr 01/15/22 11:09 01/15/22 11:22 01/15/22 11:27 Temperature 33.9 C L 33.9 C L Temperature Source Rectal Rectal Pulse Rate 106 H 109 H Pulse Rate [Apical] 108 H Pulse Rhythm Regular Regular Pulse Rhythm [Apical] Regular Pulse Strength Normal Pulse Strength [Apical] Normal Respiratory Rate 20 22 18 Respiratory Effort / Characteristics Non-Labored Non-Labored Respiratory Depth Normal Normal Respiratory Pattern Regular Regular Blood Pressure 143/61 H Blood Pressure [Right Radial Artery] 143/61 H Blood Pressure Mean 88 Blood Pressure Mean [Right Radial Artery] 88 Blood Pressure Position Lying Blood Pressure Position [Right Radial Artery] Lying Pulse Oximetry 95 98 97 Oxygen Delivery Method Room Air Room Air Room Air Sepsis Recent Fever Within 48 Hours No Sepsis New/Unexplained Change in Mental Status No Sepsis Action Taken by Nursing Physician Notified 01/15/22 12:13 01/15/22 12:32 01/15/22 11:59 Temperature 36.7 C 33.6 C L Temperature Source Oral Rectal Pulse Rate Pulse Rate [Apical] 101 H 103 H Pulse Rhythm Pulse Rhythm [Apical] Regular Regular Pulse Strength Pulse Strength [Apical] Normal Normal Respiratory Rate 20 16 Respiratory Effort / Characteristics Non-Labored Non-Labored Respiratory Depth Normal Normal Respiratory Pattern Regular Regular Blood Pressure Blood Pressure [Right Radial Artery] 139/63 133/67 Blood Pressure Mean Blood Pressure Mean [Right Radial Artery] 88 89 Blood Pressure Position Blood Pressure Position [Right Radial Artery] Lying Lying Pulse Oximetry 100 95 Oxygen Delivery Method Room Air Room Air Sepsis Recent Fever Within 48 Hours Sepsis New/Unexplained Change in Mental Status Sepsis Action Taken by Nursing 01/15/22 14:07 01/15/22 16:00 Temperature 36.4 C L Temperature Source Oral Pulse Rate Pulse Rate [Apical] 104 H 104 H Pulse Rhythm Pulse Rhythm [Apical] Regular Regular Pulse Strength Pulse Strength [Apical] Normal Normal Respiratory Rate 20 24 Respiratory Effort / Characteristics Non-Labored Non-Labored Respiratory Depth Normal Normal Respiratory Pattern Regular Regular Blood Pressure Blood Pressure [Right Radial Artery] 173/88 H 137/83 Blood Pressure Mean Blood Pressure Mean [Right Radial Artery] 116 101 Blood Pressure Position Blood Pressure Position [Right Radial Artery] Lying Lying Pulse Oximetry 97 97 Oxygen Delivery Method Room Air Room Air Sepsis Recent Fever Within 48 Hours Sepsis New/Unexplained Change in Mental Status Sepsis Action Taken by [facility] Medications Current Medication List: was personally reviewed by me Laboratory Data Attestation: I reviewed the patient's lab results. Result diagrams: 01/15/22 11:40 01/15/22 11:40 Lab Results 01/15/22 01/15/22 01/15/22 Range/Units 10:56 11:40 11:40 WBC 19.58 H (4.8-10.8) K/ul RBC 3.38 L (4.63-6.08) M/uL Hgb 11.2 L (14.0-18.0) g/dl Hct 33.2 L (40.1-51.0) % MCV 98.2 (80.0-100.0) fL MCH 33.1 (25.0-34.0) pg MCHC 33.7 (32.0-36.0) g/dL RDW Std Deviation 53.3 H (36.4-46.3) fL RDW Coeff of Clarissa 14.7 H (11.5-14.5) % Plt Count 282 (130-400) K/uL MPV 10.6 (9.4-12.4) fL Immature Gran % (Auto) 0.7 % Neut % (Auto) 92.0 % Lymph % (Auto) 2.1 % Rankin % (Auto) 5.0 % Eos % (Auto) 0.0 % Baso % (Auto) 0.2 % Neut # (Auto) 18.02 H (1.4-6.5) K/uL Lymph # (Auto) 0.42 L (1.2-3.4) K/uL Rankin # (Auto) 0.97 H (0.24-0.82) K/uL Eos # (Auto) 0.00 (0-0.50) K/uL Baso # (Auto) 0.04 (0-0.2) K/uL Immature Gran # (Auto) 0.13 H (0.00-0.02) K/uL PT 11.9 (9.0-12.0) Seconds INR 1.1 (0.9-1.1) Sodium (136-145) mmol/L Potassium (3.5-5.1) mmol/L Chloride (98-107) mmol/L Carbon Dioxide (21-32) mmol/L Anion Gap (3-11) BUN (6-23) mg/dl Creatinine (0.6-1.4) mg/dl Est Cr Clr Drug Dosing ml/min Est GFR ( Amer) ml/min Est GFR (Non-Af Amer) ml/min BUN/Creatinine Ratio (10-20) Glucose (70-99(Fasting)) mg/dl POC Glucose 257 H (70-99) mg/dl Lactate (0.4-2.0) mmol/L Calcium (8.5-10.1) mg/dl Magnesium (1.7-2.4) mg/dl Total Bilirubin (0.2-1.0) mg/dl AST (13-39) U/L ALT (7-52) U/L Alkaline Phosphatase (34-104) U/L Troponin I High Sens (0-20) pg/ml C-Reactive Protein (0-0.5) mg/dl Total Protein (6.0-8.3) gm/dl Albumin (3.4-5.0) gm/dl Globulin (2.5-4.0) gm/dl Albumin/Globulin Ratio (0.9-2) Procalcitonin (0-0.5) ng/ml TSH (0.300-4.500) uIu/ml Urine Color Urine Appearance (Clear) Urine pH (4.5-7.5) Ur Specific [place] (1.000-1.030) Urine Protein (Negative) Urine Glucose (UA) (Negative) Urine Ketones (Negative) Urine Blood (Negative) Urine Nitrite (Negative) Urine Bilirubin (Negative) Urine Urobilinogen (Negative) Ur Leukocyte Esterase (Negative) Urine WBC (Auto) (0-5) /hpf Urine RBC (Auto) (0-4) /hpf U Hyaline Cast (Auto) (0-5) /lpf U Epithel Cells (Auto) (0-5) /lpf Urine Bacteria (Auto) (Negative) SARS-CoV-2 (PCR) (Negative) Influenza Type A (PCR) (Neg) Influenza Type B (PCR) (Neg) RSV (RT-PCR) (Neg) 01/15/22 01/15/22 01/15/22 Range/Units 11:40 11:40 12:08 WBC (4.8-10.8) K/ul RBC (4.63-6.08) M/uL Hgb (14.0-18.0) g/dl Hct (40.1-51.0) % MCV (80.0-100.0) fL MCH (25.0-34.0) pg MCHC (32.0-36.0) g/dL RDW Std Deviation (36.4-46.3) fL RDW Coeff of Clarissa (11.5-14.5) % Plt Count (130-400) K/uL MPV (9.4-12.4) fL Immature Gran % (Auto) % Neut % (Auto) % Lymph % (Auto) % Rankin % (Auto) % Eos % (Auto) % Baso % (Auto) % Neut # (Auto) (1.4-6.5) K/uL Lymph # (Auto) (1.2-3.4) K/uL Rankin # (Auto) (0.24-0.82) K/uL Eos # (Auto) (0-0.50) K/uL Baso # (Auto) (0-0.2) K/uL Immature Gran # (Auto) (0.00-0.02) K/uL PT (9.0-12.0) Seconds INR (0.9-1.1) Sodium 138 (136-145) mmol/L Potassium 4.8 (3.5-5.1) mmol/L Chloride 101 (98-107) mmol/L Carbon Dioxide 23 (21-32) mmol/L Anion Gap 14 H (3-11) BUN 75 H (6-23) mg/dl Creatinine 2.64 H (0.6-1.4) mg/dl Est Cr Clr Drug Dosing 30.0 ml/min Est GFR ( Amer) 26.5 ml/min Est GFR (Non-Af Amer) 22.8 ml/min BUN/Creatinine Ratio 28.4 H (10-20) Glucose 209 H (70-99(Fasting)) mg/dl POC Glucose (70-99) mg/dl Lactate 2.7 H* (0.4-2.0) mmol/L Calcium 8.8 (8.5-10.1) mg/dl Magnesium 2.1 (1.7-2.4) mg/dl Total Bilirubin 0.6 (0.2-1.0) mg/dl AST 52 H (13-39) U/L ALT 56 H (7-52) U/L Alkaline Phosphatase 258 H (34-104) U/L Troponin I High Sens 61.4 H* (0-20) pg/ml C-Reactive Protein (0-0.5) mg/dl Total Protein 7.6 (6.0-8.3) gm/dl Albumin 3.7 (3.4-5.0) gm/dl Globulin 3.9 (2.5-4.0) gm/dl Albumin/Globulin Ratio 0.9 (0.9-2) Procalcitonin (0-0.5) ng/ml TSH 0.892 (0.300-4.500) uIu/ml Urine Color Urine Appearance (Clear) Urine pH (4.5-7.5) Ur Specific [place] (1.000-1.030) Urine Protein (Negative) Urine Glucose (UA) (Negative) Urine Ketones (Negative) Urine Blood (Negative) Urine Nitrite (Negative) Urine Bilirubin (Negative) Urine Urobilinogen (Negative) Ur Leukocyte Esterase (Negative) Urine WBC (Auto) (0-5) /hpf Urine RBC (Auto) (0-4) /hpf U Hyaline Cast (Auto) (0-5) /lpf U Epithel Cells (Auto) (0-5) /lpf Urine Bacteria (Auto) (Negative) SARS-CoV-2 (PCR) (Negative) Influenza Type A (PCR) (Neg) Influenza Type B (PCR) (Neg) RSV (RT-PCR) (Neg) 01/15/22 01/15/22 01/15/22 Range/Units 14:42 14:42 14:42 WBC (4.8-10.8) K/ul RBC (4.63-6.08) M/uL Hgb (14.0-18.0) g/dl Hct (40.1-51.0) % MCV (80.0-100.0) fL MCH (25.0-34.0) pg MCHC (32.0-36.0) g/dL RDW Std Deviation (36.4-46.3) fL RDW Coeff of Clarissa (11.5-14.5) % Plt Count (130-400) K/uL MPV (9.4-12.4) fL Immature Gran % (Auto) % Neut % (Auto) % Lymph % (Auto) % Rankin % (Auto) % Eos % (Auto) % Baso % (Auto) % Neut # (Auto) (1.4-6.5) K/uL Lymph # (Auto) (1.2-3.4) K/uL Rankin # (Auto) (0.24-0.82) K/uL Eos # (Auto) (0-0.50) K/uL Baso # (Auto) (0-0.2) K/uL Immature Gran # (Auto) (0.00-0.02) K/uL PT (9.0-12.0) Seconds INR (0.9-1.1) Sodium (136-145) mmol/L Potassium (3.5-5.1) mmol/L Chloride (98-107) mmol/L Carbon Dioxide (21-32) mmol/L Anion Gap (3-11) BUN (6-23) mg/dl Creatinine (0.6-1.4) mg/dl Est Cr Clr Drug Dosing ml/min Est GFR ( Amer) ml/min Est GFR (Non-Af Amer) ml/min BUN/Creatinine Ratio (10-20) Glucose (70-99(Fasting)) mg/dl POC Glucose (70-99) mg/dl Lactate 1.1 (0.4-2.0) mmol/L Calcium (8.5-10.1) mg/dl Magnesium (1.7-2.4) mg/dl Total Bilirubin (0.2-1.0) mg/dl AST (13-39) U/L ALT (7-52) U/L Alkaline Phosphatase (34-104) U/L Troponin I High Sens 65.4 H* (0-20) pg/ml C-Reactive Protein 1.21 H (0-0.5) mg/dl Total Protein (6.0-8.3) gm/dl Albumin (3.4-5.0) gm/dl Globulin (2.5-4.0) gm/dl Albumin/Globulin Ratio (0.9-2) Procalcitonin < 0.05 (0-0.5) ng/ml TSH (0.300-4.500) uIu/ml Urine Color Urine Appearance (Clear) Urine pH (4.5-7.5) Ur Specific [place] (1.000-1.030) Urine Protein (Negative) Urine Glucose (UA) (Negative) Urine Ketones (Negative) Urine Blood (Negative) Urine Nitrite (Negative) Urine Bilirubin (Negative) Urine Urobilinogen (Negative) Ur Leukocyte Esterase (Negative) Urine WBC (Auto) (0-5) /hpf Urine RBC (Auto) (0-4) /hpf U Hyaline Cast (Auto) (0-5) /lpf U Epithel Cells (Auto) (0-5) /lpf Urine Bacteria (Auto) (Negative) SARS-CoV-2 (PCR) (Negative) Influenza Type A (PCR) (Neg) Influenza Type B (PCR) (Neg) RSV (RT-PCR) (Neg) 01/15/22 01/15/22 01/15/22 Range/Units 15:17 15:17 15:17 WBC (4.8-10.8) K/ul RBC (4.63-6.08) M/uL Hgb (14.0-18.0) g/dl Hct (40.1-51.0) % MCV (80.0-100.0) fL MCH (25.0-34.0) pg MCHC (32.0-36.0) g/dL RDW Std Deviation (36.4-46.3) fL RDW Coeff of Clarissa (11.5-14.5) % Plt Count (130-400) K/uL MPV (9.4-12.4) fL Immature Gran % (Auto) % Neut % (Auto) % Lymph % (Auto) % Rankin % (Auto) % Eos % (Auto) % Baso % (Auto) % Neut # (Auto) (1.4-6.5) K/uL Lymph # (Auto) (1.2-3.4) K/uL Rankin # (Auto) (0.24-0.82) K/uL Eos # (Auto) (0-0.50) K/uL Baso # (Auto) (0-0.2) K/uL Immature Gran # (Auto) (0.00-0.02) K/uL PT (9.0-12.0) Seconds INR (0.9-1.1) Sodium (136-145) mmol/L Potassium (3.5-5.1) mmol/L Chloride (98-107) mmol/L Carbon Dioxide (21-32) mmol/L Anion Gap (3-11) BUN (6-23) mg/dl Creatinine (0.6-1.4) mg/dl Est Cr Clr Drug Dosing ml/min Est GFR ( Amer) ml/min Est GFR (Non-Af Amer) ml/min BUN/Creatinine Ratio (10-20) Glucose (70-99(Fasting)) mg/dl POC Glucose (70-99) mg/dl Lactate (0.4-2.0) mmol/L Calcium (8.5-10.1) mg/dl Magnesium (1.7-2.4) mg/dl Total Bilirubin (0.2-1.0) mg/dl AST (13-39) U/L ALT (7-52) U/L Alkaline Phosphatase (34-104) U/L Troponin I High Sens (0-20) pg/ml C-Reactive Protein (0-0.5) mg/dl Total Protein (6.0-8.3) gm/dl Albumin (3.4-5.0) gm/dl Globulin (2.5-4.0) gm/dl Albumin/Globulin Ratio (0.9-2) Procalcitonin (0-0.5) ng/ml TSH (0.300-4.500) uIu/ml Urine Color Yellow Urine Appearance Clear (Clear) Urine pH 5.0 (4.5-7.5) Ur Specific [place] 1.015 (1.000-1.030) Urine Protein 1+ H (Negative) Urine Glucose (UA) Trace H (Negative) Urine Ketones Negative (Negative) Urine Blood Negative (Negative) Urine Nitrite Negative (Negative) Urine Bilirubin Negative (Negative) Urine Urobilinogen Negative (Negative) Ur Leukocyte Esterase Negative (Negative) Urine WBC (Auto) 1-5 (0-5) /hpf Urine RBC (Auto) 0-4 (0-4) /hpf U Hyaline Cast (Auto) 1-5 (0-5) /lpf U Epithel Cells (Auto) 10-20 H (0-5) /lpf Urine Bacteria (Auto) Negative (Negative) SARS-CoV-2 (PCR) NEGATIVE Cancelled (Negative) Influenza Type A (PCR) Negative (Neg) Influenza Type B (PCR) Negative (Neg) RSV (RT-PCR) Negative (Neg) 01/15/22 Range/Units 15:55 WBC (4.8-10.8) K/ul RBC (4.63-6.08) M/uL Hgb (14.0-18.0) g/dl Hct (40.1-51.0) % MCV (80.0-100.0) fL MCH (25.0-34.0) pg MCHC (32.0-36.0) g/dL RDW Std Deviation (36.4-46.3) fL RDW Coeff of Clarissa (11.5-14.5) % Plt Count (130-400) K/uL MPV (9.4-12.4) fL Immature Gran % (Auto) % Neut % (Auto) % Lymph % (Auto) % Rankin % (Auto) % Eos % (Auto) % Baso % (Auto) % Neut # (Auto) (1.4-6.5) K/uL Lymph # (Auto) (1.2-3.4) K/uL Rankin # (Auto) (0.24-0.82) K/uL Eos # (Auto) (0-0.50) K/uL Baso # (Auto) (0-0.2) K/uL Immature Gran # (Auto) (0.00-0.02) K/uL PT (9.0-12.0) Seconds INR (0.9-1.1) Sodium (136-145) mmol/L Potassium (3.5-5.1) mmol/L Chloride (98-107) mmol/L Carbon Dioxide (21-32) mmol/L Anion Gap (3-11) BUN (6-23) mg/dl Creatinine (0.6-1.4) mg/dl Est Cr Clr Drug Dosing ml/min Est GFR ( Amer) ml/min Est GFR (Non-Af Amer) ml/min BUN/Creatinine Ratio (10-20) Glucose (70-99(Fasting)) mg/dl POC Glucose 88 (70-99) mg/dl Lactate (0.4-2.0) mmol/L Calcium (8.5-10.1) mg/dl Magnesium (1.7-2.4) mg/dl Total Bilirubin (0.2-1.0) mg/dl AST (13-39) U/L ALT (7-52) U/L Alkaline Phosphatase (34-104) U/L Troponin I High Sens (0-20) pg/ml C-Reactive Protein (0-0.5) mg/dl Total Protein (6.0-8.3) gm/dl Albumin (3.4-5.0) gm/dl Globulin (2.5-4.0) gm/dl Albumin/Globulin Ratio (0.9-2) Procalcitonin (0-0.5) ng/ml TSH (0.300-4.500) uIu/ml Urine Color Urine Appearance (Clear) Urine pH (4.5-7.5) Ur Specific [place] (1.000-1.030) Urine Protein (Negative) Urine Glucose (UA) (Negative) Urine Ketones (Negative) Urine Blood (Negative) Urine Nitrite (Negative) Urine Bilirubin (Negative) Urine Urobilinogen (Negative) Ur Leukocyte Esterase (Negative) Urine WBC (Auto) (0-5) /hpf Urine RBC (Auto) (0-4) /hpf U Hyaline Cast (Auto) (0-5) /lpf U Epithel Cells (Auto) (0-5) /lpf Urine Bacteria (Auto) (Negative) SARS-CoV-2 (PCR) (Negative) Influenza Type A (PCR) (Neg) Influenza Type B (PCR) (Neg) RSV (RT-PCR) (Neg) Administered Medications Discontinued Medications Sodium Chloride (Nss 1000ml) 1,000 mls @ 999 mls/hr IV .Q1H1M FRANCISCO Stop: 01/15/22 12:15 Last Infusion: 01/15/22 13:40 Dose: 0 mls/hr Documented By: [facility] Admin: 01/15/22 11:41 Dose: 999 mls/hr Documented By: JOHNY Sodium Chloride (Nss 1000ml) 1,000 mls @ 999 mls/hr IV .Q1H1M ONE Stop: 01/15/22 12:52 Last Infusion: 01/15/22 14:51 Dose: 0 mls/hr Documented By: [facility] Admin: 01/15/22 13:30 Dose: 999 mls/hr Documented By: [facility] Piperacillin Sod/Tazobactam Sod (Zosyn) 4.5 gm in 120 mls @ 240 mls/hr IV NOW ONE Stop: 01/15/22 12:21 Last Infusion: 01/15/22 12:35 Dose: 0 mls/hr Documented By: [facility] Admin: 01/15/22 12:10 Dose: 240 mls/hr Documented By: JOHNY Vancomycin HCl 1,750 mg/ (Sodium Chloride) 535 mls @ 200 mls/hr IV NOW ONE Stop: 01/15/22 14:40 Last Infusion: 01/15/22 15:30 Dose: 0 mls/hr Documented By: Admin: 01/15/22 12:33 Dose: 200 mls/hr Documented By: JOHNY Imaging Data Radiologist's Impression: Chest X-Ray 01/15/22 11:03 XR chest 1V portable CLINICAL HISTORY: weakness TECHNIQUE: Single frontal radiograph of the chest was obtained. Comparison: Comparison is made to chest radiograph 09/17/2018 FINDINGS: No lines and tubes are seen. The cardiomediastinal silhouette is normal. The lungs are clear. No evidence of pleural effusion or pneumothorax. IMPRESSION: No acute chest disease. ACT 112: Negative or not required by law. Electronically signed by: José Worrell M.D. 01/15/2022 11:[address] 01/15/22 11:03 CT head/brain wo con CLINICAL HISTORY: confusion Technique: Contiguous axial CT images of the head were acquired from the base of the skull to the vertex without intravenous contrast administration. Images were viewed in brain, subdural and bone windows. Automated dose lowering techniques and/or adjustment according to patient size were utilized for this exam. Comparison: Comparison is made to CT head 09/06/2018 Findings: Areas of decreased attenuation are present in the periventricular and subcortical white matter bilaterally consistent with small vessel ischemic disease. Generalized cerebral atrophy with commensurate enlargement of the ventricles, sulci, and cisterns is also present. There is no acute intracranial hemorrhage or evidence of acute territorial infarction. No shift of the midline structures, mass effect, or extra-axial abnormalities are shown. Atherosclerotic calcifications are present in the intracranial segments of the internal carotid arteries. 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 Imaged portions of the paranasal sinuses and mastoid air cells are clear. The orbits appear normal. There are no acute fractures of the calvaria or scalp swe lling. Impression: No acute intracranial hemorrhage, no evidence of acute territorial infarction or other acute intracranial disease process. ACT 112: Negative or not required by law. Electronically signed by: José Worrell M.D. 01/15/2022 12:32 PM Abdomen/Pelvis CT 01/15/22 12:59 CT abd pelvis wo con CLINICAL HISTORY: sepsis, hypoglycemia WBC 19, hypothermic TECHNIQUE: Helical axial images of the abdomen and pelvis were obtained. Aut omated dose lowering techniques and/or adjustment according to patient size were utilized for this exam. This exam was performed without intravenous contrast. CT DOSE: 471.90 mGy.cm COMPARISON: Comparison is made to CT abdomen pelvis 07/22/2017 FINDINGS: Lower chest: Right lower lobe groundglass and consolidative changes are partially seen. Liver: Unremarkable. No focal lesions are seen. Gallbladder and biliary tree: Calcification of the gallbladder wall is noted. This is unchanged from prior. No intra- or extrahepatic biliary ductal dilation. Pancreas: Unremarkable, no focal lesions. Spleen: Unremarkable. Adrenals: Unremarkable. Kidneys and ureters: Perinephric stranding is noted bilaterally. No hydronephrosis or hydroureter is seen. Bladder: Unremarkable. Reproductive organs: Prostatomegaly is seen. Bowel: Diverticulosis is seen without evidence of diverticulitis. The appendix is normal. Lymph nodes Retroperitoneal: Subcentimeter lymph nodes are noted. Mesenteric: Unremarkable. Pelvic: Prominent subcentimeter inguinal nodes are noted. Subcentimeter external iliac nodes are seen bilaterally. Peritoneum: Normal. Vessels: Unremarkable. Abdominal wall: Unremarkable. Bones: Degenerative changes in the visualized spine. IMPRESSION: 1. No acute abnormalities are seen. 2. Calcified gallbladder wall, unchanged from prior exam. 3. Nonspecific perinephric stranding without evidence of hydronephrosis or other acute abnormality. ACT 112: Negative or not required by law. Electronically signed by: José Worrell M.D. 01/15/2022 2:02 PM Discharge Plan Visit Data Chief Complaint: Hypoglycemia Stated Complaint: HYPOGLYCEMIA ED Provider: Keenan Penn Discharge Problem: Sepsis, Hypoglycemia, Elevated troponin I level, Hypothermia, Acute dehydration Patient Disposition: Admitted As Inpatient Forms Stand Alone Forms: My [facility] Prescriptions Prescriptions: No Action amoxicillin-pot clavulanate 500-125 mg tablet 1 tab PO BID Rx Instructions: bEGIN 12/28/21 X ? UNCERTAIN Xarelto 2.5 mg tablet 2.5 mg PO BID Qty: 60 11RF atorvastatin [Lipitor] 40 mg tablet 40 mg PO HS Qty: 90 3RF (DME) Accu-Chek Erin Plus test strp Strip See Rx Instructions .ROUTE .MEDSUPPLY Qty: 100 5RF Rx Instructions: test blood sugar 3 X DAILY E11.9 ammonium lactate 12 % lotion 1 applic topical BID Qty: 400 3RF (DME) lancets [ReadyLance Safety Lancets] 30 gauge misc See Rx Instructions .Route Qty: 100 5RF Rx Instructions: TEST 3 TIMES A DAY (DME) Easy Touch Safety Pen Needle 30 gauge x 5/16" needle See Rx Instructions .Route Qty: 300 3RF Rx Instructions: Use for injecting insulin at least 4 injection daily Novolin R Flexpen 100 unit/mL (3 mL) insulin pen See Rx Instructions .ROUTE .COMPLEX Qty: 15 1RF Rx Instructions: Inject per sliding scale with meals and at bedtime up to 50 units a day ferrous gluconate 324 mg (37.5 mg iron) tablet 324 mg PO BID Qty: 60 11RF multivitamin with minerals Tablet 1 tab PO DAILY Qty: 90 3RF Therems-M 9 mg iron-400 mcg tablet 1 tab PO DAILY Qty: 90 3RF Lantus Solostar U-100 Insulin 100 unit/mL (3 mL) insulin pen See Rx Instructions .ROUTE .COMPLEX Qty: 15 5RF Rx Instructions: Inject 16 units in the AM and 10 units in the HS ; calcitriol 0.25 mcg capsule 0.25 mcg PO DAILY Qty: 90 3RF furosemide [Lasix] 40 mg tablet 40 mg PO BID Qty: 180 3RF docusate sodium [Colace] 100 mg capsule 100 mg PO BID GlucaGen HypoKit 1 mg recon soln 1 mg SQ UD PRN (Reason: hypoglycemia) acetaminophen 325 mg capsule 325 mg PO QID PRN (Reason: Fever Or Pain) albuterol sulfate 90 mcg/actuation aerosol powdr breath activated 2 inh inhalation Q6H PRN (Reason: Shortness Of Breath Or Wheezing) polyethylene glycol 3350 [Miralax] 17 gram/dose powder 17 g PO DAILY PRN (Reason: Constipation) aspirin [Adult Aspirin Regimen] 81 mg tablet,delayed release (DR/EC) 81 mg PO DAILY@0900 Referrals Referrals: Hayley Watson MD [Primary Care Provider] -
[2022-01-15] MEDS ORDERED: SODIUM CHLORIDE 0.9% 1000ML 1,000 ML IV SCH (11:15)
--- NOTE | 2022-01-15 11:25 | XRay Report ---
XR chest 1V portable CLINICAL HISTORY: weakness TECHNIQUE: Single frontal radiograph of the chest was obtained. Comparison: Comparison is made to chest radiograph 09/17/2018 FINDINGS: No lines and tubes are seen. The cardiomediastinal silhouette is normal. The lungs are clear. No evid ence of pleural effusion or pneumothorax. IMPRESSION: No acute chest disease. ACT 112: Negative or not required by law. Electronically signed by: José Worrell M.D. 01/15/2022 11:24 AM
--- NOTE | 2022-01-15 11:45 | Electrocardiogram Report ---
Test Reason : Blood Pressure : / mmHG Vent. Rate : 102 BPM Atrial Rate : 102 BPM P-R Int : 222 ms QRS Dur : 082 ms QT Int : 322 ms P-R-T Axes : 090 067 -08 degrees QTc Int : 419 ms Poor data quality, interpretation may be adversely affected Supraventricular tachycardia converting to sinus rhythm with PVC versus aberrant conduction possible Inferior infarct (cited on or before 04-JUL-2017) Abnormal ECG When compared with ECG of 13-NOV-2020 12:42, Aberrant conduction is now Present T wave inversion no longer evident in Lateral leads Confirmed by Roger Medina ([id number]) on 01/15/2022 11:45:10 AM Referred By: Confirmed By:Dominic Medina
[2022-01-15] MEDS ORDERED: VANCOMYCIN CONSULT ACTIVE PRN (11:52)
[2022-01-15] MEDS ORDERED: SODIUM CHLORIDE 0.9% 1000ML 1,000 ML IV ONE (11:52)
[2022-01-15] MEDS ORDERED: PIPERACILLIN/TAZOBACTAM 4.5 GM/120 ML BAG IV ONE (11:52)
[2022-01-15] MEDS ORDERED: VANCOMYCIN HCL 2,250 MG in SODIUM CHLORIDE 0.9% 500 ML IV ONE (11:52)
[2022-01-15] MEDS ORDERED: VANCOMYCIN HCL 1,750 MG in SODIUM CHLORIDE 0.9% 500 ML IV ONE (12:00)
[2022-01-15 12:01] LABS: Hematocrit (blood only) 33.2 % (40.1-51.0); Hemoglobin 11.2 g/dl (14.0-18.0); Mean Corpuscular Hemoglobin 33.1 pg (25.0-34.0); Mean Corpuscular Hgb Conc 33.7 g/dL (32.0-36.0); Mean Corpuscular Volume 98.2 fL (80.0-100.0); Mean Platelet Volume 10.6 fL (9.4-12.4); Platelet Count 282 K/uL (130-400); RDW Coefficient of Variation 14.7 % (11.5-14.5); RDW Standard Deviation 53.3 fL (36.4-46.3); Red Blood Count 3.38 M/uL (4.63-6.08); White Blood Count 19.58 K/ul (4.8-10.8)
[2022-01-15 12:15] LABS: INR 1.1 (0.9-1.1); Prothrombin Time 11.9 Seconds (9.0-12.0)
[2022-01-15 12:21] LABS: Albumin Globulin Ratio 0.9 (0.9-2); Albumin Level 3.7 gm/dl (3.4-5.0); BUN Creatinine Ratio 28.4 (10-20); Bilirubin,Total 0.6 mg/dl (0.2-1.0); Calcium 8.8 mg/dl (8.5-10.1); Est GFR (African American) 26.5 ml/min; Est GFR (Non-African American) 22.8 ml/min; Globulin 3.9 gm/dl (2.5-4.0); Magnesium 2.1 mg/dl (1.7-2.4); Potassium 4.8 mmol/L (3.5-5.1); Total Protein 7.6 gm/dl (6.0-8.3)
[2022-01-15 12:27] LABS: Basophils # (auto) 0.04 K/uL (0-0.2); Basophils % (auto) 0.2 %; Immature Granulocytes # (auto) 0.13 K/uL (0.00-0.02); Immature Granulocytes % (auto) 0.7 %; Lymphocytes # (auto) 0.42 K/uL (1.2-3.4); Lymphocytes % (auto) 2.1 %; Monocytes # (auto) 0.97 K/uL (0.24-0.82); Neutrophils # (auto) 18.02 K/uL (1.4-6.5)
--- NOTE | 2022-01-15 12:33 | CT Scan Report ---
CT head/brain wo con CLINICAL HISTORY: confusion Technique: Contiguous axial CT images of the head were acquired from the base of the skull to the tyrone khadar without intravenous contrast administration. Images were viewed in brain, subdural and bone [facility]. Automated dose lowering techniques and/or adjustment according to patient size were utilized for this exam. Comparison: Comparison is made to CT head 09/06/2018 Findings: Areas of decreased attenuation are present in the periventricular and subcortical white matter bilate rally consistent with small vessel ischemic disease. Generalized cerebral atrophy with commensurate e nlargement of the ventricles, sulci, and cisterns is also present. There is no acute intracranial hem orrhage or evidence of acute territorial infarction. No shift of the midline structures, mass effect, or extra-axial abnormalities are shown. Atherosclerotic calcifications are present in the intracran ial segments of the internal carotid arteries. 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 Imaged portions of the paranasal sinuses and mastoid air cells are clear. The orbits appear normal. There are no acute fractures of the calvaria or scalp swelling. Impression: No acute intracranial hemorrhage, no evidence of acute territorial infarction or other acute intracra nial disease process. ACT 112: Negative or not required by law. Electronically signed by: José Worrell M.D. 01/15/2022 12:32 PM
[2022-01-15 12:57] LABS: Troponin I High Sensitivity 61.4 pg/ml (0-20)
--- NOTE | 2022-01-15 14:04 | CT Scan Report ---
CT abd pelvis wo con CLINICAL HISTORY: sepsis, hypoglycemia WBC 19, hypothermic TECHNIQUE: Helical axial images of the abdomen and pelvis were obtained. Automated dose lowering tech niques and/or adjustment according to patient size were utilized for this exam. This exam was perfor med without intravenous contrast. CT DOSE: 471.90 mGy.cm COMPARISON: Comparison is made to CT abdomen pelvis 07/22/2017 FINDINGS: Lower chest: Right lower lobe groundglass and consolidative changes are partially seen. Liver: Unremarkable. No focal lesions are seen. Gallbladder and biliary tree: Calcification of the gallbladder wall is noted. This is unchanged from prior. No intra- or extrahepatic biliary ductal dilation. Pancreas: Unremarkable, no focal lesions. Spleen: Unremarkable. Adrenals: Unremarkable. Kidneys and ureters: Perinephric stranding is noted bilaterally. No hydronephrosis or hydroureter is seen. Bladder: Unremarkable. Reproductive organs: Prostatomegaly is seen. Bowel: Diverticulosis is seen without evidence of diverticulitis. The appendix is normal. Lymph nodes Retroperitoneal: Subcentimeter lymph nodes are noted. Mesenteric: Unremarkable. Pelvic: Prominent subcentimeter inguinal nodes are noted. Subcentimeter external iliac nodes are seen bilaterally. Peritoneum: Normal. Vessels: Unremarkable. Abdominal wall: Unremarkable. Bones: Degenerative changes in the visualized spine. IMPRESSION: 1. No acute abnormalities are seen. 2. Calcified gallbladder wall, unchanged from prior exam. 3. Nonspecific perinephric stranding without evidence of hydronephrosis or other acute abnormality. ACT 112: Negative or not required by law. Electronically signed by: José Worrell M.D. 01/15/2022 2:02 PM
--- NOTE | 2022-01-15 14:54 | History & Physical Report ---
Date of Service January 15, 2022 Assessment & Plan (1) Sepsis: Plan: Patient presents with elevated WBC, hypothermia, hypoglycemic - SIRS 3 qSOFA- 1 - sources- right lung pneumonia, UTI (UA pending but with perinephric stranding), diabetic foot ulcer- with possible osteomyelitis - WBC elevated with elevated NLR, evidence of organ dysfunction with increased HScTNI, Increase BUN/MANAGER LINUX, elevated liver enzymes. - Lactate 2.7 following 2liter crystalloid resuscitation down to 1.1- continue with LR for 1 more liter - CRP/PCT pending on admission - no pressor requirement - temperature normalized - Xray of foot - Continue with Zosyn- MRSA swab pending- discontinue Vancomycin if negative - MSSA and pseudomonas history of foot - MAPS >65 - UO>30ml/hour (2) Diabetic foot ulcer: Plan: As above - consult wound care for continued treatment/debridement - attempt to obtain wound culture although not very deep (3) Chronic venous insufficiency of lower extremity: Plan: Continue statin continue Xarelto 2.5mg PO BID (4) Diabetes mellitus: Plan: DMII on lantus and Novolin at home - hold Novolin - Will reduce his Lantus dose to 8 units subq BID- normally 16/10 at home - Follow BG q6 hours- adjust therapy if needed overnight (5) Acute kidney injury: Plan: MACY on CKD 4 - baselin MANAGER LINUX 2.2-2.4 - Place hallman as straight cath for 400 urine in EMD - follow urine output with MAPS (6) Ischemic cardiomyopathy: Plan: Continue statin, he was previously on lisinopril but discontinued likely seconary to his renal function - not on BB - previously refused angiography (7) PAD (peripheral artery disease): Plan: As above statin Xarelto 2.5mg PO BID (8) BPH (benign prostatic hyperplasia): Plan: Not on therapy at home - Hallman as above (9) Hypoglycemia: Plan: Follow q6 hours- he was down to 88 following stay in EMD - continue diet- he may need assistance eating - Hold his insulin for this evening- notify if > 180 on 2 consecutive checks and will restart (10) Elevated liver enzymes: Plan: Likely secondary to sepsis, follow CMP in the morning - he is in [facility] and without likely tick exposure (11) Elevated troponin I level: Plan: Likely secondary to sepsis- continue to trend HScTNI- no acute ECG changes noted History of Present Illness Primary Care Provider: Hayley Watson MD 72 YOM with medical history of: PAD, chronic left foot wound, MSSA, CAD, Inferior wall MA, HFpEF, AOCD, BPH, HLD, DMII, CKD, PVD. Patient is a resident at [facility]. He was brought to the [facility] today for lethargy this morning and found to have a BG in the 20s. He was give 2 doses of D50 en route. In the EMD he was noted to hypothermic as well. Sepsis workup was initiated that included routine blood work, Blood culture, UA remains pending. Had CT scan of his abdomen and pelvis completed, CXR, and head CT completed. His labs are remarkable for elevation of his WBC, NLR, and lactate of 2.7, as well as evidence of organ dysfunction. He was started on Zosyn and Vancomycin. Was placed on yogesh hugger and given 2 liters of warmed crystalloid. Patient is alert and oriented but remains somewhat encephalopathic. His temperature is normalized off of warmer. Patient has history of left foot wound that he has been following with wound care for. He was also previously treated for left foot osteo and foot ulceration. Has had arterial studies performed and was transitioned to 2.5mg of Xarelto in 01/22 for this. He was last seen by wound care on 01/24. His CXR has some RLL opacity, and CT scan of abodmen and pelvis is notable for perinephric stranding. Overall patient has multiple sources for infection at this time. Awaiting urine specimen. Will continue broad coverage with Zosyn for pulmonary, Urinary, and MSK source. Vancomycin given in EMD, will send MRSA swab. Recheck Lactate and HScTNI, PCT, and CRP. Obtain imaging of left foot for evaluation of osteo. COVID test on admission is: NEGATIVE Allergies Allergy/AdvReac Type Severity Reaction Status Date / Time poliomyelitis vaccine, live Allergy Unknown Unknown Verified 01/15/22 15:36 oral Home Medications Medication Instructions Recorded Confirmed Type rivaroxaban 2.5 mg tablet (Xarelto) 2.5 mg PO BID #60 tabs 01/05/20 01/15/22 Rx docusate sodium 100 mg capsule 100 mg PO BID 01/10/20 01/15/22 History (Colace) glucagon (human recombinant) 1 mg 1 mg subcut UD PRN hypoglycemia 01/10/20 01/15/22 History solution for injection (GlucaGen HypoKit) aspirin 81 mg tablet,delayed 81 mg PO DAILY@0900 04/10/20 01/15/22 History release (Adult Aspirin Regimen) acetaminophen 325 mg capsule 325 mg PO QID PRN Fever Or Pain 06/05/20 01/15/22 History albuterol sulfate 90 mcg/actuation 2 inh inhalation Q6H PRN Shortness 06/05/20 01/15/22 History breath activated powder inhaler Of Breath Or Wheezing polyethylene glycol 3350 17 17 g PO DAILY PRN Constipation 06/05/20 01/15/22 History gram/dose oral powder (Miralax) atorvastatin 40 mg tablet (Lipitor) 40 mg PO HS #90 tabs 04/05/21 01/15/22 Rx blood sugar diagnostic (Accu-Chek #100 ea 04/12/21 01/08/22 Rx Erin Plus test strp) ammonium lactate 12 % lotion 1 applic topical BID #400 grams 04/24/21 01/15/22 Rx lancets 30 gauge (ReadyLance #100 ea 05/09/21 01/08/22 Rx Safety Lancets) pen needle, diabetic, safety 30 #300 ea 06/25/21 01/08/22 Rx gauge x 5/16" (Easy Touch Safety Pen Needle) furosemide 40 mg tablet (Lasix) 40 mg PO BID #180 tabs 08/06/21 01/15/22 Rx Novolin R Flexpen 100 unit/mL (3 See Rx Instructions .Route 08/23/21 01/15/22 Rx mL) subcutaneous insulin pen .COMPLEX #15 mL (insulin regular human) ferrous gluconate 324 mg (37.5 mg 324 mg PO BID #60 tabs 09/10/21 01/15/22 Rx iron) tablet multivitamin with minerals 1 tab PO DAILY #90 tabs 10/08/21 01/15/22 Rx Therems-M 9 mg iron-400 mcg tablet 1 tab PO DAILY #90 tabs 10/28/21 01/15/22 Rx (junouxjb-pbbo-SE-calcium-mins) amoxicillin 500 mg-potassium 1 tab PO BID 11/01/21 01/15/22 History clavulanate 125 mg tablet calcitriol 0.25 mcg capsule 0.25 mcg PO DAILY #90 caps 12/04/21 01/15/22 Rx Lantus Solostar U-100 Insulin 100 See Rx Instructions .Route 12/12/21 01/15/22 Rx unit/mL (3 mL) subcutaneous pen .COMPLEX #15 mL (insulin glargine) Past Med/Surg History Medical History Abscess Acute blood loss anemia Acute kidney injury Acute renal insufficiency Altered mental status Anemia due to chronic kidney disease ATN (acute tubular necrosis) Bilateral leg edema CAD in [place] artery Chronic kidney disease, stage 4 (severe) Chronic ulcer of left heel Cognitive disorder Diabetes mellitus with diabetic polyneuropathy DM II (diabetes mellitus, type II), controlled Elevated serum creatinine Fluid overload Foot swelling Gait disturbance Heel ulcer Hematuria HTN (hypertension) Hydronephrosis Hyperkalemia Hypokalemia Hypomagnesemia Hypoxia Incomplete bladder emptying MSSA (methicillin susceptible Staphylococcus aureus) MSSA (methicillin susceptible Staphylococcus aureus) septicemia Neurogenic bladder Nocturia Osteomyelitis Peripheral neuropathy Peripherally inserted central catheter in place PICC (peripherally inserted central catheter) in place Pneumonia Preop examination Proteinuria Proteus infection Recurrent UTI Renal insufficiency Sepsis Sepsis Stage 3b chronic kidney disease Status post debridement of ulcer of heel Subsequent non-ST elevation (NSTEMI) myocardial infarction UTI (urinary tract infection) due to urinary indwelling catheter Venous ulcer of leg Yeast dermatitis Surgical History H/O angioplasty H/O oral surgery History of tonsillectomy Family History Other No pertinent family history Denies family history of Ovarian cancer Prostate cancer Myocardial infarction Breast cancer Colorectal cancer Social History Smoking Status: Never smoker Second Hand Exposure: No; Hx Alcohol Use: No Hx Substance Use: No Preferred Language: Ukrainian Communication Ability: Effective Visual Impairment: No Limitations Management Supervisor Required: No Beliefs That Will Affect Care: None marital status: Single Current Living Situation: Alone Current Living Situation Comment: lives alone in condo current occupational status: retired Feels Safe at Home: Yes Childhood Exposure to Second-Hand Smoke: No caffeine: Yes during the past year weight has: remained stable Dental Care, Regularly: Yes Physical Activity Frequency: Does not Exercise Seatbelt Use: always Sunscreen Use: No Gender Identity: Male Assistive Devices: Glasses and Oxygen - at Night Review of Systems Review of Systems: REVIEW OF SYSTEMS: Unable to be completed secondary to patient encephalopathy He remembers that he was sleepy this morning and may have taken his insulin Physical Exam Physical Exam: PHYSICAL EXAM: General: awake, alert, confused/encephalopathic Head: Normocephalic, atraumatic ENT: PERRLA, EOMI, no pharyngeal exudate, mucous membranes dry Neuro: AAO x 3, speech clear and appropriate, strength intact bilaterally 5/5, sensation intact and equal all extremities and dermatomes, no pronator drift Chest: equal rise and fall of the chest, no accessory muscle use, no heaves or thrills, scattered rhonchi, on room air, Cardiac: Regular rate and rhythm, telemetry reviewed- NSR, skin warm dry, cap refill <3 seconds, peripheral pulses +2 no JVD, no murmur, no edema GI: NABS x 4 quadrants, soft, nontender to palpation, no rebound, guarding or tenderness : Spontaneously voiding, no pain, no CVA tenderness, Psych: Normal mood and affect Skin: ulceration to let foot medial aspect, wound edeges clean and without errythema, wound without drainage, chronic vascular changes to legs, feet with evidence of onchyomycosis Results & Data Results & Data ([facility]) Vital Signs (Past 12 Hours) Vital Signs Temp Pulse Pulse Resp BP BP Pulse Ox 01/15/22 14:07 36.4 C L 104 H 20 173/88 H 97 01/15/22 11:59 33.6 C L 01/15/22 12:32 36.7 C 103 H 16 133/67 95 01/15/22 12:13 101 H 20 139/63 100 01/15/22 11:27 33.9 C L 109 H 18 143/61 H 97 01/15/22 11:22 106 H 22 98 01/15/22 11:09 33.9 C L 108 H 20 143/61 H 95 O2 Del Method 01/15/22 14:07 Room Air 01/15/22 11:59 01/15/22 12:32 Room Air 01/15/22 12:13 Room Air 01/15/22 11:27 Room Air 01/15/22 11:22 Room Air 01/15/22 11:09 Room Air Laboratory Results Abnormal lab results 01/15/22 01/15/22 01/15/22 Range/Units 10:56 11:40 11:40 WBC 19.58 H (4.8-10.8) K/ul RBC 3.38 L (4.63-6.08) M/uL Hgb 11.2 L (14.0-18.0) g/dl Hct 33.2 L (40.1-51.0) % RDW Std Deviation 53.3 H (36.4-46.3) fL RDW Coeff of Clarissa 14.7 H (11.5-14.5) % Neut # (Auto) 18.02 H (1.4-6.5) K/uL Lymph # (Auto) 0.42 L (1.2-3.4) K/uL Caroline # (Auto) 0.97 H (0.24-0.82) K/uL Immature Gran # (Auto) 0.13 H (0.00-0.02) K/uL Anion Gap 14 H (3-11) BUN 75 H (6-23) mg/dl Creatinine 2.64 H (0.6-1.4) mg/dl BUN/Creatinine Ratio 28.4 H (10-20) Glucose 209 H (70-99(Fasting)) mg/dl POC Glucose 257 H (70-99) mg/dl Lactate (0.4-2.0) mmol/L AST 52 H (13-39) U/L ALT 56 H (7-52) U/L Alkaline Phosphatase 258 H (34-104) U/L Troponin I High Sens 61.4 H* (0-20) pg/ml 01/15/22 01/15/22 Range/Units 12:08 14:42 WBC (4.8-10.8) K/ul RBC (4.63-6.08) M/uL Hgb (14.0-18.0) g/dl Hct (40.1-51.0) % RDW Std Deviation (36.4-46.3) fL RDW Coeff of Clarissa (11.5-14.5) % Neut # (Auto) (1.4-6.5) K/uL Lymph # (Auto) (1.2-3.4) K/uL Caroline # (Auto) (0.24-0.82) K/uL Immature Gran # (Auto) (0.00-0.02) K/uL Anion Gap (3-11) BUN (6-23) mg/dl Creatinine (0.6-1.4) mg/dl BUN/Creatinine Ratio (10-20) Glucose (70-99(Fasting)) mg/dl POC Glucose (70-99) mg/dl Lactate 2.7 H* (0.4-2.0) mmol/L AST (13-39) U/L ALT (7-52) U/L Alkaline Phosphatase (34-104) U/L Troponin I High Sens 65.4 H* (0-20) pg/ml Diagnostic Findings Chest X-Ray 01/15/22 11:03 XR chest 1V portable CLINICAL HISTORY: weakness TECHNIQUE: Single frontal radiograph of the chest was obtained. Comparison: Comparison is made to chest radiograph 09/17/2018 FINDINGS: No lines and tubes are seen. The cardiomediastinal silhouette is normal. The lungs are clear. No evidence of pleural effusion or pneumothorax. IMPRESSION: No acute chest disease. ACT 112: Negative or not required by law. Electronically signed by: José Worrell M.D. 01/15/2022 11:[address] 01/15/22 11:03 CT head/brain wo con CLINICAL HISTORY: confusion Technique: Contiguous axial CT images of the head were acquired from the base of the skull to the vertex without intravenous contrast administration. Images were viewed in brain, subdural and bone windows. Automated dose lowering techniques and/or adjustment according to patient size were utilized for this exam. Comparison: Comparison is made to CT head 09/06/2018 Findings: Areas of decreased attenuation are present in the periventricular and subcortical white matter bilaterally consistent with small vessel ischemic disease. Generalized cerebral atrophy with commensurate enlargement of the ventricles, sulci, and cisterns is also present. There is no acute intracranial hemorrhage or evidence of acute territorial infarction. No shift of the midline structures, mass effect, or extra-axial abnormalities are shown. Atherosclerotic calcifications are present in the intracranial segments of the internal carotid arteries. 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 Imaged portions of the paranasal sinuses and mastoid air cells are clear. The orbits appear normal. There are no acute fractures of the calvaria or scalp swelling. Impression: No acute intracranial hemorrhage, no evidence of acute territorial infarction or other acute intracranial disease process. ACT 112: Negative or not required by law. Electronically signed by: José Worrell M.D. 01/15/2022 12:32 PM Abdomen/Pelvis CT 01/15/22 12:59 CT abd pelvis wo con CLINICAL HISTORY: sepsis, hypoglycemia WBC 19, hypothermic TECHNIQUE: Helical axial images of the abdomen and pelvis were obtained. Automated dose lowering techniques and/or adjustment according to patient size were utilized for this exam. This exam was performed without intravenous contrast. CT DOSE: 471.90 mGy.cm COMPARISON: Comparison is made to CT abdomen pelvis 07/22/2017 FINDINGS: Lower chest: Right lower lobe groundglass and consolidative changes are p artially seen. Liver: Unremarkable. No focal lesions are seen. Gallbladder and biliary tree: Calcification of the gallbladder wall is noted. This is unchanged from prior. No intra- or extrahepatic biliary ductal dilation. Pancreas: Unremarkable, no focal lesions. Spleen: Unremarkable. Adrenals: Unremarkable. Kidneys and ureters: Perinephric stranding is noted bilaterally. No hydronephr osis or hydroureter is seen. Bladder: Unremarkable. Reproductive organs: Prostatomegaly is seen. Bowel: Diverticulosis is seen without evidence of diverticulitis. The appendix is normal. Lymph nodes Retroperitoneal: Subcentimeter lymph nodes are noted. Mesenteric: Unremarkable. Pelvic: Prominent subcentimeter inguinal nodes are noted. Subcentimeter external iliac nodes are seen bilaterally. Peritoneum: Normal. Vessels: Unremarkable. Abdominal wall: Unremarkable. Bones: Degenerative changes in the visualized spine. IMPRESSION: 1. No acute abnormalities are seen. 2. Calcified gallbladder wall, unchanged from prior exam. 3. Nonspecific perinephric stranding without evidence of hydronephrosis or other acute abnormality. ACT 112: Negative or not required by law. Electronically signed by: José Worrell M.D. 01/15/2022 2:02 PM Medications Administered Home Medications rivaroxaban 2.5 mg tablet (Xarelto) 2.5 mg PO BID #60 tabs 01/05/20 [Rx Confirmed 01/08/22] docusate sodium 100 mg capsule (Colace) 100 mg PO BID 01/10/20 [History Confirmed 01/08/22] glucagon (human recombinant) 1 mg solution for injection (GlucaGen HypoKit) 1 mg subcut UD PRN hypoglycemia 01/10/20 [History Confirmed 01/08/22] aspirin 81 mg tablet,delayed release (Adult Aspirin Regimen) 81 mg PO DAILY@0900 04/10/20 [History Confirmed 01/08/22] acetaminophen 325 mg capsule 325 mg PO QID PRN 06/05/20 [History Confirmed 01/08/22] albuterol sulfate 90 mcg/actuation breath activated powder inhaler 2 inh inhalation Q6H PRN 06/05/20 [History Confirmed 01/08/22] polyethylene glycol 3350 17 gram/dose oral powder (Miralax) 17 g PO DAILY PRN 06/05/20 [History Confirmed 01/08/22] atorvastatin 40 mg tablet (Lipitor) 40 mg PO HS #90 tabs 04/05/21 [Rx Confirmed 01/08/22] blood sugar diagnostic (Accu-Chek Erin Plus test strp) #100 ea 04/12/21 [Rx Confirmed 01/08/22] ammonium lactate 12 % lotion 1 applic topical BID #400 grams 04/24/21 [Rx Confirmed 01/08/22] lancets 30 gauge (ReadyLance Safety Lancets) #100 ea 05/09/21 [Rx Confirmed 01/08/22] pen needle, diabetic, safety 30 gauge x 5/16" (Easy Touch Safety Pen Needle) #300 ea 06/25/21 [Rx Confirmed 01/08/22] furosemide 40 mg tablet (Lasix) 40 mg PO BID #180 tabs 08/06/21 [Rx Confirmed 01/08/22] Novolin R Flexpen 100 unit/mL (3 mL) subcutaneous insulin pen (insulin regular human) See Rx Instructions .Route .COMPLEX #15 mL 08/23/21 [Rx Confirmed 01/08/22] ferrous gluconate 324 mg (37.5 mg iron) tablet 324 mg PO BID #60 tabs 09/10/21 [Rx Confirmed 01/08/22] multivitamin with minerals 1 tab PO DAILY #90 tabs 10/08/21 [Rx Confirmed 01/08/22] Therems-M 9 mg iron-400 mcg tablet (kpmmttle-kqfd-DI-calcium-mins) 1 tab PO DAILY #90 tabs 10/28/21 [Rx Confirmed 01/08/22] amoxicillin 500 mg-potassium clavulanate 125 mg tablet 1 tab PO BID 11/01/21 [History Confirmed 01/08/22] calcitriol 0.25 mcg capsule 0.25 mcg PO DAILY #90 caps 12/04/21 [Rx Confirmed 01/08/22] Lantus Solostar U-100 Insulin 100 unit/mL (3 mL) subcutaneous pen (insulin glargine) See Rx Instructions .Route .COMPLEX #15 mL 12/12/21 [Rx Confirmed 01/08/22] Active Medications Miscellaneous Information (Vancomycin Consult Active) 1 each N/A UD PRN PRN Reason: Consult Stop: 02/14/22 11:51 Discontinued Medications Sodium Chloride (Nss 1000ml) 1,000 mls @ 999 mls/hr IV .Q1H1M FRANCISCO Stop: 01/15/22 12:15 Last Infusion: 01/15/22 13:40 Dose: 0 mls/hr Documented By: [facility] Admin: 01/15/22 11:41 Dose: 999 mls/hr Documented By: [facility] Sodium Chloride (Nss 1000ml) 1,000 mls @ 999 mls/hr IV .Q1H1M ONE Stop: 01/15/22 12:52 Last Infusion: 01/15/22 14:51 Dose: 0 mls/hr Documented By: [facility] Admin: 01/15/22 13:30 Dose: 999 mls/hr Documented By: [facility] Piperacillin Sod/Tazobactam Sod (Zosyn) 4.5 gm in 120 mls @ 240 mls/hr IV NOW ONE Stop: 01/15/22 12:21 Last Infusion: 01/15/22 12:35 Dose: 0 mls/hr Documented By: [facility] Admin: 01/15/22 12:10 Dose: 240 mls/hr Documented By: [facility] Vancomycin HCl 1,750 mg/ (Sodium Chloride) 535 mls @ 200 mls/hr IV NOW ONE Stop: 01/15/22 14:40 Last Infusion: 01/15/22 15:30 Dose: 0 mls/hr Documented By: [facility] Admin: 01/15/22 12:33 Dose: 200 mls/hr Documented By: [facility] ECG Additional Comments: Vent. Rate : 102 BPM Atrial Rate : 102 BPM P-R Int : 222 ms QRS Dur : 082 ms QT Int : 322 ms P-R-T Axes : 090 067 -08 degrees QTc Int : 419 ms Poor data quality, interpretation may be adversely affected Supraventricular tachycardia converting to sinus rhythm with PVC versus aberrant conduction possible Inferior infarct (cited on or before 04-JUL-2017) Abnormal ECG When compared with ECG of 13-NOV-2020 12:42, Aberrant conduction is now Present T wave inversion no longer evident in Lateral leads Code Status & VTE Plan Code Status CODE: FULL VTE: SCDS, Xarelto 2.5mg PO BID Supervising Physician Co-Signing Physician Notes Patient seen and examined with BINGO ATTENDANT, agree with his note above. Patient is a very limited historian. Consideration for possible sepsis but source is not clear. Further work-up showed urine was essentially benign but patient may have osteomyelitis in his left lower extremity. I do see from the records that this is not the first time he has been diagnosed with such. Plan to continue antibiotics as ordered, await remainder of work-up. Continue Zosyn. Consideration of vancomycin but would likely avoid secondary to renal dysfunction. PG Care Time/CCT Total # of Minutes Spent Total Time Spent with Patient: Total time spent is greater than 50% in coordination of care (as documented) at patient's floor/unit and/or counseling patient: Coding Level of Care Code 23185 Initial Inpt Care Lvl 3 Diagnoses Sepsis A41.9 Diabetic foot ulcer E11.621; L97.509 Chronic venous insufficiency of lower extremity I87.2 Diabetes mellitus E11.9 Acute kidney injury N17.9 Ischemic cardiomyopathy I25.5 PAD (peripheral artery disease) I73.9 BPH (benign prostatic hyperplasia) N40.0 Lower urinary tract symptom presence: symptoms absent Hypoglycemia E16.2 Elevated liver enzymes R74.8 Elevated troponin I level R77.8 (1) BPH (benign prostatic hyperplasia) Lower urinary tract symptom presence: symptoms absent Qualified Code(s): N40.0 - Benign prostatic hyperplasia without lower urinary tract symptoms
[2022-01-15 15:32] LABS: Troponin I High Sensitivity 65.4 pg/ml (0-20)
[2022-01-15 15:57] LABS: Appearance Urine Clear (Clear); Bacteria Urine Automated Negative (Negative); Bilirubin Urine Negative (Negative); Blood Urine Negative (Negative); Color Urine Yellow; Glucose Urine UA Trace (Negative); Ketones Urine Negative (Negative); Leukocyte Esterase Urine Negative (Negative); Nitrite Urine Negative (Negative); Protein Urine 1+ (Negative); RBC Urine Automated 0-4 /hpf (0-4); Specific Gravity Urine 1.015 (1.000-1.030); Urobilinogen Urine Negative (Negative)
[2022-01-15 16:00] LABS: C Reactive Protein 1.21 mg/dl (0-0.5)
[2022-01-15 16:33] LABS: Influenza A virus by PCR Negative (Neg); Influenza B virus by PCR Negative (Neg); RSV by PCR Negative (Neg); SARS CoV2 RNA(COVID-19) InHosp NEGATIVE (Negative)
--- NOTE | 2022-01-15 17:54 | XRay Report ---
XR foot LT 2V CLINICAL HISTORY: Nonhealing left foot wound. Assess for ostial myelitis. COMPARISON STUDY: Left foot 09/25/2019. FINDINGS: There is a 2 cm focal skin ulceration at the medial aspect of the first MTP joint. There ar e subtle cortical erosion/irregularity at the medial aspect of the first metatarsal head. This is new from the prior study and likely represents osteomyelitis. The bones are osteopenic. No fracture or d islocation. Soft tissue swelling within the foot. There are mild vascular calcifications. Plantar and posterior calcaneal spurs are noted. IMPRESSION: There is a 2 cm skin ulceration at the medial aspect of the first MTP joint. Deep to the skin ulceration there is subtle cortical erosion/irregularity at the medial aspect of the first meta tarsal head. This is new from the prior study and is consistent with osteomyelitis. ACT 112: Negative or not required by law. Electronically signed by: Wale Cronin M.D. 01/15/2022 5:52 PM
[2022-01-15] MEDS ORDERED: DEXTROSE 50% 50 ML SYRINGE IV PRN (18:33)
[2022-01-15] MEDS ORDERED: GLUCAGON FOR INJ 1 MG VIAL SQ PRN (18:33)
[2022-01-15] MEDS ORDERED: GLUCOSE 10 TAB/TUBE PO PRN (18:33)
[2022-01-15] MEDS ORDERED: ACETAMINOPHEN 325 MG TAB PO PRN (18:33)
[2022-01-15] MEDS ORDERED: GLUCOSE 40% GEL 15 GM TUBE PO PRN (18:33)
[2022-01-15] MEDS ORDERED: LACTATED RINGER'S 1,000 ML IV ONE (18:33)
[2022-01-15] MEDS ORDERED: CARBOHYDRATES FOR HYPOGLYCEMIA PO PRN (18:33)
[2022-01-15] MEDS: PIPERACILLIN/TAZOBACTAM 4.5 GM in DEXTROSE 5% 100 ML IV SCH (20:03)
[2022-01-15] MEDS: ATORVASTATIN 40 MG TAB PO SCH (20:03)
[2022-01-15] MEDS: RIVAROXABAN 2.5 MG TAB PO SCH (20:03)
[2022-01-15] MEDS: DOCUSATE SODIUM 100 MG CAP PO SCH (20:03)
[2022-01-16] MEDS ORDERED: VANCOMYCIN HCL 750 MG in SODIUM CHLORIDE 0.9% 250 ML IV SCH (02:00)
[2022-01-16] MEDS: PIPERACILLIN/TAZOBACTAM 4.5 GM in DEXTROSE 5% 100 ML IV SCH ×3 (03:35→20:25)
[2022-01-16 07:53] LABS: Basophils # (auto) 0.04 K/uL (0-0.2); Basophils % (auto) 0.3 %; Eosinophils # (auto) 0.17 K/uL (0-0.50); Eosinophils % (auto) 1.3 %; Hematocrit (blood only) 26.6 % (40.1-51.0); Immature Granulocytes # (auto) 0.09 K/uL (0.00-0.02); Immature Granulocytes % (auto) 0.7 %; Lymphocytes # (auto) 0.46 K/uL (1.2-3.4); Lymphocytes % (auto) 3.6 %; Mean Corpuscular Hemoglobin 33.1 pg (25.0-34.0); Mean Corpuscular Hgb Conc 33.8 g/dL (32.0-36.0); Mean Corpuscular Volume 97.8 fL (80.0-100.0); Mean Platelet Volume 10.8 fL (9.4-12.4); Monocytes # (auto) 0.71 K/uL (0.24-0.82); Monocytes % (auto) 5.6 %; Neutrophils # (auto) 11.19 K/uL (1.4-6.5); Neutrophils % (auto) 88.5 %; Platelet Count 215 K/uL (130-400); RDW Coefficient of Variation 15.3 % (11.5-14.5); RDW Standard Deviation 53.8 fL (36.4-46.3); Red Blood Count 2.72 M/uL (4.63-6.08); White Blood Count 12.66 K/ul (4.8-10.8)
[2022-01-16 07:59] LABS: BUN Creatinine Ratio 26.6 (10-20); Calcium 7.8 mg/dl (8.5-10.1); Creatinine Clr Calc Pharmacy 32.9 ml/min; Est GFR (African American) 31.4 ml/min; Est GFR (Non-African American) 27.1 ml/min; Potassium 4.3 mmol/L (3.5-5.1)
[2022-01-16 08:22] LABS: Troponin I High Sensitivity 106.9 pg/ml (0-20)
--- NOTE | 2022-01-16 08:40 | Hospitalist Progress Note ---
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 - Lactate 2.7 following 2liter crystalloid resuscitation down to 1.1- continue with LR for 1 more liter - procalcitonin is negative , CRP only mildly elevated - metabolic encephalopathy - Continue with Zosyn-Vanco dose in the ER with trough level on 01/17 pharmacy is consulted to manage - MSSA and pseudomonas history of foot Consult podiatry patient's previously seen Dr. Blanca Felipe - (2) Diabetic foot ulcer: Plan: As above - consult wound care for continued treatment/debridement - attempt to obtain wound culture although not very deep likely need bone removed or biopsied at the least (3) Chronic venous insufficiency of lower extremity: Plan: will hold xarelto that is at PVD doses in the case that surgical intervention is needed on toe, will start DVT prevention doses 01/17/22 (4) Diabetes mellitus: Plan: DMII on lantus and Novolin at home - hold Novolin - Will reduce his Lantus dose to 8 units subq BID- normally 20/04 at home - Follow BG q6 hours- adjust therapy if needed overnight (5) Acute kidney injury: Plan: MACY on CKD 4 - 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 2.2-2.4 - Place hallman as straight cath for 400 urine in EMD - follow urine output with MAPS (6) Ischemic cardiomyopathy: Plan: Continue statin, he was previously on lisinopril but discontinued likely seconary to his renal function - not on BB - previously refused angiography (7) PAD (peripheral artery disease): Plan: As above statin (8) BPH (benign prostatic hyperplasia): Plan: Not on therapy at home - Hallman as above (9) Hypoglycemia: Plan: Follow q6 hours- he was down to 88 following stay in EMD - continue diet- he may need assistance eating - Hold his insulin for this evening- notify if > 180 on 2 consecutive checks and will restart (10) Elevated liver enzymes: Plan: Likely secondary to sepsis, follow CMP in the morning - he is in [facility] and without likely tick exposure (11) Elevated troponin I level: Plan: Likely secondary to demand ischemia from sepsis-- no acute ECG changes noted Admission and Anticipated Discharge Date Admission Date: January 15, 2022 Subjective Patient has a very flat affect answering and mostly yes and no responses States his legs have been swollen for some time does not have overt pain in his affected left first MTP area that is area of concern for diabetic foot infection Patient cannot recall the events that led up to the injury Review of Systems Review of Systems: Mild distress and fatigue no headache, no visual changes no speech or swallowing issues no chest pain, pressure or palpitations no shortness of breath, cough or wheezes no abdominal pain, nausea or vomiting, diarrhea or constipation no dysuria, hematuria or frequency Patient has a crusted ulcer to his left first MTP area but he also has some crusting and what may be a hard eschar on his right great toe near the lateral nail. His legs of changes of chronic venous stasis with skin changes crusting and peeling no back pain, CVA tenderness or radicular pain no bruising, bleeding or rashes no focal signs of weakness or numbness or altered sensation no complaints patient has a very flat affect Results & Data Results & Data ([facility]) Vital Signs (Past 12 Hours) Vital Signs Temp Pulse Pulse Resp BP Pulse Ox O2 Del Method 01/16/22 08:20 94 H 01/16/22 06:58 98.4 F 100 H 18 139/72 94 Room Air 01/16/22 03:32 98.8 F 89 18 116/66 95 Room Air 01/15/22 23:55 98.2 F 87 18 126/69 95 PG Care Time/CCT Total # of Minutes Spent Total Time Spent with Patient: Total time spent is greater than 50% in coordination of care (as documented) at patient's floor/unit and/or counseling patient: Coding Level of Care Code 61123 Subseq Hosp Care Lvl 3 Diagnoses Sepsis A41.9 Diabetic foot ulcer E11.621; L97.509 Chronic venous insufficiency of lower extremity I87.2 Diabetes mellitus E11.9 Acute kidney injury N17.9 Ischemic cardiomyopathy I25.5 PAD (peripheral artery disease) I73.9 BPH (benign prostatic hyperplasia) N40.0 Lower urinary tract symptom presence: symptoms absent Hypoglycemia E16.2 Elevated liver enzymes R74.8 Elevated troponin I level R77.8 (1) BPH (benign prostatic hyperplasia) Lower urinary tract symptom presence: symptoms absent Qualified Code(s): N40.0 - Benign prostatic hyperplasia without lower urinary tract symptoms
[2022-01-16] MEDS: RIVAROXABAN 2.5 MG TAB PO SCH (09:09)
[2022-01-16] MEDS: DOCUSATE SODIUM 100 MG CAP PO SCH ×2 (09:09→20:29)
[2022-01-16] MEDS: ASPIRIN 81 MG ECTAB PO SCH (09:10)
--- NOTE | 2022-01-16 10:49 | Pharmacy Report ---
Pharmacy Vanc AUC Short Note - Date of Service January 16, 2022 - Assessment & Plan Assessment 72 year old M admitted for Sepsis, unclear source - lung vs. urine vs. foot ulcer/osteomyelitis. Blood cultures pending. Nasal swab is negative for MRSA. Patient received Vancomycin loading dose 1750 mg (20 mg/kg) yesterday @ 12:33. He has renal insufficiency, serum creat 2.64 mg/dl yesterday. This is only slightly improved today. Vancomycin maintenance dose 750 mg (8.9 mg/kg) IV q24h ordered last night around 02:00. Day #2 of antimicrobial therapy. Plan Vancomycin * AUC/MAYNOR is the preferred PK/PD target for vancomycin * AUC guided dosing is effective and associated with decreased risk of nephrotoxicity compared to traditional trough targets * Vancomycin 750 mg IV q24h is predicted to achieve target AUC/MAYNRO of 400-600 mg/L.hr and may be associated with a 11% risk of nephrotoxicity with current renal function. * However, since patient has already received loading dose and 1st maintenance dose and since there is renal impairment, will order a random level with AM labs tomorrow before continuing maintenance Vancomycin. So, current order for 750 mg IV Q24h placed on hold. Plan to continue Vancomycin after level results tomorrow. * Random level ordered for: 01/17/22 with AM labs Pharmacy will continue to follow and will adjust dose/frequency as necessary. Thank you.
[2022-01-16 13:47] LABS: A calco-baum cmplx NotReported Not Detected (NotDetected); Bact fragilis Not Reported Not Detected (NotDetected); C auris Not Reported Not Detected (NotDetected); Calbicans Not Reported Not Detected (NotDetected); Candida glabrata Not Reported Not Detected (NotDetected); Candida krusei Not Reported Not Detected (NotDetected); Cneoformans/gatti Not Reported Not Detected (NotDetected); Cparapsilosis Not Reported Not Detected (NotDetected); Ctropicalis Not Reported Not Detected (NotDetected); E cloacae compx Not Reported Not Detected (NotDetected); Efaecalis Not Reported Not Detected (NotDetected); Efaecium Not Reported Not Detected (NotDetected); Enterobacterales Not Reported Not Detected (NotDetected); Escherichia coli Not Reported Not Detected (NotDetected); H influenzae Not Reported Not Detected (NotDetected); K aerogenes Not Reported Not Detected (NotDetected); Koxytoca Not Reported Not Detected (NotDetected); Kpneumoniae grp Not Reported Not Detected (NotDetected); Lmonocyt Not Reported Not Detected (NotDetected); N meningitidis Not Reported Not Detected (NotDetected); P aeruginosa Not Reported Not Detected (NotDetected); Proteus spp Not Reported Not Detected (NotDetected); Salmonella spp Not Reported Not Detected (NotDetected); Smarcescens Not Reported Not Detected (NotDetected); Staph lugdunensis Not Reported Not Detected (NotDetected); Staph spp. Not Reported DETECTED (NotDetected); Staphaureus Not Reported Not Detected (NotDetected); Staphepi Not Reported Not Detected (NotDetected); Stenmaltophilia Not Reported Not Detected (NotDetected); Strep agal(GrpB) Not Reported Not Detected (NotDetected); Strep pneum Not Reported Not Detected (NotDetected); Strep pyog (GrpA) Not Reported Not Detected (NotDetected); Strep spp Not Reported Not Detected (NotDetected)
[2022-01-16 13:54] LABS: Staphylococcus spp. DETECTED (NotDetected)
[2022-01-16] MEDS: ATORVASTATIN 40 MG TAB PO SCH (20:29)
[2022-01-17] MEDS: PIPERACILLIN/TAZOBACTAM 4.5 GM in DEXTROSE 5% 100 ML IV SCH ×3 (04:26→19:31)
[2022-01-17 06:45] LABS: Basophils # (auto) 0.04 K/uL (0-0.2); Basophils % (auto) 0.5 %; Eosinophils # (auto) 0.53 K/uL (0-0.50); Eosinophils % (auto) 6.4 %; Hematocrit (blood only) 27.8 % (40.1-51.0); Immature Granulocytes # (auto) 0.05 K/uL (0.00-0.02); Immature Granulocytes % (auto) 0.6 %; Lymphocytes # (auto) 0.63 K/uL (1.2-3.4); Lymphocytes % (auto) 7.6 %; Mean Corpuscular Hemoglobin 32.8 pg (25.0-34.0); Mean Corpuscular Hgb Conc 32.4 g/dL (32.0-36.0); Mean Corpuscular Volume 101.5 fL (80.0-100.0); Mean Platelet Volume 10.3 fL (9.4-12.4); Monocytes # (auto) 0.68 K/uL (0.24-0.82); Monocytes % (auto) 8.2 %; Neutrophils # (auto) 6.38 K/uL (1.4-6.5); Neutrophils % (auto) 76.7 %; Platelet Count 196 K/uL (130-400); RDW Coefficient of Variation 15.4 % (11.5-14.5); RDW Standard Deviation 57.5 fL (36.4-46.3); Red Blood Count 2.74 M/uL (4.63-6.08); White Blood Count 8.31 K/ul (4.8-10.8)
[2022-01-17 07:22] LABS: BUN Creatinine Ratio 21.5 (10-20); Calcium 7.9 mg/dl (8.5-10.1); Creatinine Clr Calc Pharmacy 31.8 ml/min; Est GFR (African American) 30.1 ml/min; Magnesium 2.1 mg/dl (1.7-2.4); Potassium 3.8 mmol/L (3.5-5.1)
--- NOTE | 2022-01-17 08:34 | Podiatry Consultation ---
Date of Consultation January 17, 2022 Assessment & Plan (1) Chronic venous insufficiency of lower extremity: Patient is a very poor surgical candidate due to his PAD / venous insufficiency issues and issues with compliance, was seen at [place] as well Deep cultures obtained today and recommend continue abx and wound care with close follow up, patient was to see me December 18 but no -showed - ID to my knowledge is still following with him, they refilled his amoxicillin- clavulanate on December 17 - patient will need f/u with me and wound care post d/c, possibly also needs f/u with ID ([place], known and established patient to them) After I obtained the cultures,area was cleaned and new dressing applied Thank you for this consult and I will continue to follow him outpatient (2) Diabetic foot ulcer: History of Present Illness Reason for Consultation: left foot ulcer Attending Physician: Cain Patel MD History of Present Illness Patient is a very pleasant 72 year old male seen at bedside for a known history of a left foot ulcer - patient also follows with ID in [place] (Dr. Sana Fonseca, and also seen in conjunction with Ortho foot an ankle at [place] ) last seen in October by our team in [place] for IV abx recommendations for his osteo - wound is actually significantly improved from his last visit with me which was on November 06 - follow with wound care regularly - MRI done 09/10/21 showing possible signs of osteomyelitis - ID stated that b/c of his reduced renal function she is not a candidate for PICC and if needed would need tunneled chest wall catheter, they felt that parenteral abx were not needed at that time and recommended oral abx and continued wound care Today, the wound is greatly improved, there is no erythema or ascending erythema, much reduced swelling from previous visits ( 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, 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, 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 - sees ) I obtained a surface culture of the wound as well as a deep culture for abx Recommend to continue abx based on these culture results and local wound care Allergies Allergy/AdvReac Type Severity Reaction Status Date / Time poliomyelitis vaccine, live Allergy Unknown Unknown Verified 01/15/22 15:36 oral Home Medications Medication Instructions Recorded Confirmed Type rivaroxaban 2.5 mg tablet (Xarelto) 2.5 mg PO BID #60 tabs 01/05/20 01/15/22 Rx docusate sodium 100 mg capsule 100 mg PO BID 01/10/20 01/15/22 History (Colace) glucagon (human recombinant) 1 mg 1 mg subcut UD PRN hypoglycemia 01/10/20 01/15/22 History solution for injection (GlucaGen HypoKit) aspirin 81 mg tablet,delayed 81 mg PO DAILY@0900 04/10/20 01/15/22 History release (Adult Aspirin Regimen) acetaminophen 325 mg capsule 325 mg PO QID PRN Fever Or Pain 06/05/20 01/15/22 History albuterol sulfate 90 mcg/actuation 2 inh inhalation Q6H PRN Shortness 06/05/20 01/15/22 History breath activated powder inhaler Of Breath Or Wheezing polyethylene glycol 3350 17 17 g PO DAILY PRN Constipation 06/05/20 01/15/22 History gram/dose oral powder (Miralax) atorvastatin 40 mg tablet (Lipitor) 40 mg PO HS #90 tabs 04/05/21 01/15/22 Rx blood sugar diagnostic (Accu-Chek #100 ea 04/12/21 01/08/22 Rx Erin Plus test strp) ammonium lactate 12 % lotion 1 applic topical BID #400 grams 04/24/21 01/15/22 Rx lancets 30 gauge (ReadyLance #100 ea 05/09/21 01/08/22 Rx Safety Lancets) pen needle, diabetic, safety 30 #300 ea 06/25/21 01/08/22 Rx gauge x 5/16" (Easy Touch Safety Pen Needle) furosemide 40 mg tablet (Lasix) 40 mg PO BID #180 tabs 08/06/21 01/15/22 Rx Novolin R Flexpen 100 unit/mL (3 See Rx Instructions .Route 08/23/21 01/15/22 Rx mL) subcutaneous insulin pen .COMPLEX #15 mL (insulin regular human) ferrous gluconate 324 mg (37.5 mg 324 mg PO BID #60 tabs 09/10/21 01/15/22 Rx iron) tablet multivitamin with minerals 1 tab PO DAILY #90 tabs 10/08/21 01/15/22 Rx Therems-M 9 mg iron-400 mcg tablet 1 tab PO DAILY #90 tabs 10/28/21 01/15/22 Rx (itgmieak-swtd-UD-calcium-mins) amoxicillin 500 mg-potassium 1 tab PO BID 11/01/21 01/15/22 History clavulanate 125 mg tablet calcitriol 0.25 mcg capsule 0.25 mcg PO DAILY #90 caps 12/04/21 01/15/22 Rx Lantus Solostar U-100 Insulin 100 See Rx Instructions .Route 12/12/21 01/15/22 Rx unit/mL (3 mL) subcutaneous pen .COMPLEX #15 mL (insulin glargine) Patient History Medical History Abscess Acute blood loss anemia Acute kidney injury Acute renal insufficiency Altered mental status Anemia due to chronic kidney disease ATN (acute tubular necrosis) Bilateral leg edema CAD in [place] artery Chronic kidney disease, stage 4 (severe) Chronic ulcer of left heel Cognitive disorder Diabetes mellitus with diabetic polyneuropathy DM II (diabetes mellitus, type II), controlled Elevated serum creatinine Fluid overload Foot swelling Gait disturbance Heel ulcer Hematuria HTN (hypertension) Hydronephrosis Hyperkalemia Hypokalemia Hypomagnesemia Hypoxia Incomplete bladder emptying MSSA (methicillin susceptible Staphylococcus aureus) MSSA (methicillin susceptible Staphylococcus aureus) septicemia Neurogenic bladder Nocturia Osteomyelitis Peripheral neuropathy Peripherally inserted central catheter in place PICC (peripherally inserted central catheter) in place Pneumonia Preop examination Proteinuria Proteus infection Recurrent UTI Renal insufficiency Sepsis Sepsis Stage 3b chronic kidney disease Status post debridement of ulcer of heel Subsequent non-ST elevation (NSTEMI) myocardial infarction UTI (urinary tract infection) due to urinary indwelling catheter Venous ulcer of leg Yeast dermatitis Surgical History H/O angioplasty H/O oral surgery History of tonsillectomy Family History Other No pertinent family history Denies family history of Ovarian cancer Prostate cancer Myocardial infarction Breast cancer Colorectal cancer Social History Smoking Status: Never smoker Second Hand Exposure: No; Hx Alcohol Use: No Hx Substance Use: No Preferred Language: Croatian Communication Ability: Effective Visual Impairment: No Limitations Medical And Scientific Illustrator Required: No Beliefs That Will Affect Care: None marital status: Single Current Living Situation: Alone Current Living Situation Comment: [facility] current occupational status: retired Other Information That Helps Us Care for You: No Feels Safe at Home: Yes Safety Concerns: Feels Safe At This Time Childhood Exposure to Second-Hand Smoke: No caffeine: Yes during the past year weight has: remained stable Dental Care, Regularly: Yes Physical Activity Frequency: Does not Exercise Seatbelt Use: always Sunscreen Use: No Gender Identity: Male Assistive Devices: Wheelchair Physical Exam Skin: Ulcer present at the medial aspect of the first metatarsal head without erythema, this wound has signicantly improved from the first time I started to treat this, ID per note above has recommended oral abx, and continued wound care, when patient was seen at [place] with our ID/Foot and ankle team, they recommend no further surgery, I continue to agree especially after seeing patient today compared to prior visits with me Results & Data ([facility]) Vital Signs (Past 12 Hours) Vital Signs Temp Pulse Pulse Resp BP BP Pulse Ox 01/17/22 07:22 36.4 C L 93 H 19 177/83 H 94 01/17/22 03:39 36.8 C 77 18 126/66 96 01/16/22 23:31 84 01/16/22 20:45 01/16/22 23:01 36.9 C 89 18 148/74 H 95 O2 Del Method 01/17/22 07:22 Room Air 01/17/22 03:39 Room Air 01/16/22 23:31 01/16/22 20:45 Room Air 01/16/22 23:01 Room Air
[2022-01-17] MEDS ORDERED: VANCOMYCIN HCL 1,250 MG in SODIUM CHLORIDE 0.9% 250 ML IV STA (09:18)
[2022-01-17] MEDS: DOCUSATE SODIUM 100 MG CAP PO SCH ×2 (09:35→20:34)
[2022-01-17] MEDS: ASPIRIN 81 MG ECTAB PO SCH (09:36)
--- NOTE | 2022-01-17 09:56 | Pharmacy Report ---
Pharmacy Vanc AUC Short Note - Date of Service January 17, 2022 - Assessment & Plan Assessment 72 year old M receiving Vancomycin for treatment of Osteomyelitis. Blood culture, 1 out of 2 growing Staph sp, ID pending. This is most likely a contaminant. Nasal swab negative for MRSA. Day #3 of antimicrobial therapy. Laboratory Tests 01/17/22 06:32 Random Vancomycin 13.4 Plan Vancomycin * Patient last received Vancomycin 750 mg IV x1 dose @02:00 on 01/16/22. * Random Vanc level today was 13.4 mcg/ml obtained ~28 hrs after dose given. * Vancomycin 1250 mg (15 mg/kg) IV x1 dose ordered for this AM, then ongoing a reduced dose of 1000 mg (11 mg/kg) Q24h ordered for tomorrow. * Dosing reduced slightly due to patient's poor renal function and avoid accumulation of Vancomycin. * Regimen is predicted to achieve target AUC/MAYNOR of 500-600 mg/L.hr. This goal range is slightly higher since patient has Osteomyelitis. * Vancomycin level ordered with AM labs on 01/19/22 before dose is due. * If renal function does not improve, then anticipate that patient may eventually need a lower dose of Vancomycin Q24h. Pharmacy will continue to follow and will adjust dose/frequency as necessary. Thank you.
[2022-01-17] MEDS ORDERED: GLUCAGON FOR INJ 1 MG VIAL SQ PRN (17:03)
[2022-01-17] MEDS ORDERED: CARBOHYDRATES FOR HYPOGLYCEMIA PO PRN (17:03)
[2022-01-17] MEDS ORDERED: DEXTROSE 50% 50 ML SYRINGE IV PRN (17:03)
[2022-01-17] MEDS ORDERED: GLUCOSE 40% GEL 15 GM TUBE PO PRN (17:03)
[2022-01-17] MEDS ORDERED: GLUCOSE 10 TAB/TUBE PO PRN (17:03)
--- NOTE | 2022-01-17 17:23 | Hospitalist Progress Note ---
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 - metabolic encephalopathy resolving - De escalate to Daptomycin Consult podiatry patient's previously seen Dr. Blanca Felipe performed deep tissue culture - (2) Diabetic foot ulcer: Plan: As above - consult wound care for continued treatment/debridement - attempt to obtain wound culture although not very deep felt not to be surgical candidate due to poor vascular supply, most recent vascular eval september with noted restenosis at previous intervention area and not felt to be candidate to re inteveine (3) Chronic venous insufficiency of lower extremity: Plan: resume xarelto that is at PVD doses in the case that surgical intervention is needed on toe, will start DVT prevention doses 01/17/22 (4) Diabetes mellitus: Plan: DMII on lantus and Novolin at home - on ssi only (5) Acute kidney injury: Plan: MACY on CKD 4 - 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 - (6) Ischemic cardiomyopathy: Plan: Continue statin, he was previously on lisinopril but discontinued likely seconary to his renal function - not on BB - previously refused angiography (7) PAD (peripheral artery disease): Plan: As above statin (8) BPH (benign prostatic hyperplasia): Plan: Not on therapy at home - [place] as above (9) Hypoglycemia: Plan: stopping basal insulin loose ssi started - continue diet- he may need assistance eating (10) Elevated liver enzymes: Plan: Likely secondary to sepsis, follow CMP in the morning - he is in [facility] and without likely tick exposure (11) Elevated troponin I level: Plan: Likely secondary to demand ischemia from sepsis-- no acute ECG changes noted Admission and Anticipated Discharge Date Admission Date: January 15, 2022 Subjective Patient has a very flat affect answering and mostly yes and no responses Podiatry has seen and cultured left first MTP area that is area of concern for diabetic foot infection Patient cannot recall the events that led up to the injury Review of Systems Review of Systems: Mild distress and fatigue no headache, no visual changes no speech or swallowing issues no chest pain, pressure or palpitations no shortness of breath, cough or wheezes no abdominal pain, nausea or vomiting, diarrhea or constipation no dysuria, hematuria or frequency Patient has a crusted ulcer to his left first MTP area but he also has some crusting and what may be a hard eschar on his right great toe near the lateral nail. His legs of changes of chronic venous stasis with skin changes crusting and peeling no back pain, CVA tenderness or radicular pain no bruising, bleeding or rashes no focal signs of weakness or numbness or altered sensation no complaints patient has a very flat affect Physical Exam Physical Exam: The patient appeared well nourished and normally developed. he has flat affect Vital signs as documented. Head exam is normocephalic atraumatic Neck is without JVD, thyromegaly, or carotid bruits. Lungs are clear to auscultation, no focal loss of breath sounds Cardiac exam, Rhythm is regular.. No murmurs, rubs or gallops. Abdominal exam reveals normal bowel sounds, soft non tender, no masses Patient has a crusted ulcer to his left first MTP area but he also has some crusting and what may be a hard eschar on his right great toe near the lateral nail. His legs of changes of chronic venous stasis with skin changes crusting and peeling Neurologic exam is alert and oriented, no focal loss of strength or sensation Skin is with defects as listed above Psychologically is without concerns for anxiety or depression.. Results & Data Results & Data ([facility]) Vital Signs (Past 12 Hours) Vital Signs Temp Pulse Pulse Resp BP BP Pulse Ox 01/17/22 15:46 98.2 F 81 19 164/82 H 96 01/17/22 15:01 91 H 01/17/22 08:00 01/17/22 11:18 98.2 F 98 H 18 156/77 H 97 01/17/22 10:05 95 H 01/17/22 07:22 97.5 F L 93 H 19 177/83 H 94 O2 Del Method 01/17/22 15:46 Room Air 01/17/22 15:01 01/17/22 08:00 Room Air 01/17/22 11:18 Room Air 01/17/22 10:05 01/17/22 07:22 Room Air PG Care Time/CCT Total # of Minutes Spent Total Time Spent with Patient: Total time spent is greater than 50% in coordination of care (as documented) at patient's floor/unit and/or counseling patient: Coding Level of Care Code 12208 Subseq Hosp Care Lvl 3 Diagnoses Sepsis A41.9 Diabetic foot ulcer E11.621; L97.509 Chronic venous insufficiency of lower extremity I87.2 Diabetes mellitus E11.9 Acute kidney injury N17.9 Ischemic cardiomyopathy I25.5 PAD (peripheral artery disease) I73.9 BPH (benign prostatic hyperplasia) N40.0 Lower urinary tract symptom presence: symptoms absent Hypoglycemia E16.2 Elevated liver enzymes R74.8 Elevated troponin I level R77.8 (1) BPH (benign prostatic hyperplasia) Lower urinary tract symptom presence: symptoms absent Qualified Code(s): N40.0 - Benign prostatic hyperplasia without lower urinary tract symptoms
[2022-01-17] MEDS: ATORVASTATIN 40 MG TAB PO SCH (20:34)
[2022-01-17] MEDS: RIVAROXABAN 2.5 MG TAB PO SCH (20:37)
[2022-01-17] MEDS: INSULIN ASPART PER UNIT SC SCH (20:39)
[2022-01-18] MEDS: PIPERACILLIN/TAZOBACTAM 4.5 GM in DEXTROSE 5% 100 ML IV SCH ×2 (03:30→12:05)
[2022-01-18 06:39] LABS: Basophils # (auto) 0.04 K/uL (0-0.2); Basophils % (auto) 0.5 %; Eosinophils # (auto) 0.82 K/uL (0-0.50); Hematocrit (blood only) 29.4 % (40.1-51.0); Hemoglobin 9.5 g/dl (14.0-18.0); Immature Granulocytes # (auto) 0.04 K/uL (0.00-0.02); Immature Granulocytes % (auto) 0.5 %; Lymphocytes # (auto) 0.75 K/uL (1.2-3.4); Lymphocytes % (auto) 9.2 %; Mean Corpuscular Hemoglobin 32.3 pg (25.0-34.0); Mean Corpuscular Hgb Conc 32.3 g/dL (32.0-36.0); Mean Platelet Volume 10.8 fL (9.4-12.4); Monocytes # (auto) 0.63 K/uL (0.24-0.82); Monocytes % (auto) 7.7 %; Neutrophils # (auto) 5.88 K/uL (1.4-6.5); Neutrophils % (auto) 72.1 %; Platelet Count 230 K/uL (130-400); RDW Coefficient of Variation 14.9 % (11.5-14.5); Red Blood Count 2.94 M/uL (4.63-6.08); White Blood Count 8.16 K/ul (4.8-10.8)
[2022-01-18 07:14] LABS: BUN Creatinine Ratio 19.4 (10-20); Creatinine Clr Calc Pharmacy 34.7 ml/min; Est GFR (African American) 33.5 ml/min; Est GFR (Non-African American) 28.9 ml/min; Magnesium 2.1 mg/dl (1.7-2.4); Potassium 3.8 mmol/L (3.5-5.1)
[2022-01-18] MEDS: INSULIN ASPART PER UNIT SC SCH ×2 (08:42→12:43)
[2022-01-18] MEDS ORDERED: VANCOMYCIN HCL 1,000 MG in SODIUM CHLORIDE 0.9% 250 ML IV SCH (09:00)
[2022-01-18] MEDS ORDERED: DAPTOmycin 500 MG in SYRINGE 0 ML IV SCH (09:00)
[2022-01-18] MEDS: DOCUSATE SODIUM 100 MG CAP PO SCH (09:19)
[2022-01-18] MEDS: ASPIRIN 81 MG ECTAB PO SCH (09:19)
[2022-01-18] MEDS: RIVAROXABAN 2.5 MG TAB PO SCH (09:19)
--- NOTE | 2022-01-18 13:17 | Discharge Summary ---
Date of Service January 18, 2022 Admission HPI Per Admitting Provider 72 YOM with medical history of: PAD, chronic left foot wound, MSSA, CAD, Inferior wall MO, HFpEF, AOCD, BPH, HLD, DMII, CKD, PVD. Patient is a resident at [facility]. He was brought to the [facility] today for lethargy this morning and found to have a BG in the 20s. He was give 2 doses of D50 en route. In the EMD he was noted to hypothermic as well. Sepsis workup was initiated that included routine blood work, Blood culture, UA remains pending. Had CT scan of his abdomen and pelvis completed, CXR, and head CT completed. His labs are remarkable for elevation of his WBC, NLR, and lactate of 2.7, as well as evid ence of organ dysfunction. He was started on Zosyn and Vancomycin. Was placed on yogesh hugger and given 2 liters of warmed crystalloid. Patient is alert and oriented but remains somewhat encephalopathic. His temperature is normalized off of warmer. Patient has history of left foot wound that he has been following with wound care for. He was also previously treated for left foot osteo and foot ulceration. Has had arterial studies performed and was transitioned to 2.5mg of Xarelto in 01/22 for this. He was last seen by wound care on 01/24. His CXR has some RLL opacity, and CT scan of abodmen and pelvis is notable for perinephric stranding. Overall patient has multiple sources for infection at this time. Awaiting urine specimen. Will continue broad coverage with Zosyn for pulmonary, Urinary, and MSK source. Vancomycin given in EMD, will send MRSA swab. Recheck Lactate and HScTNI, PCT, and CRP. Obtain imaging of left foot for evaluation of osteo. COVID test on admission is: NEGATIVE Principal Diagnosis Diabetic foot infection with possible osteomyelitis Arterial insufficiency lower extremity not amenable to intervention Surgical evaluation with patient refusing any surgical intervention Hypoglycemia with cessation of long-term insulin therapy Discharge Exam The patient appeared stable very flat affect and typically refuses many request for intervention Vital signs as documented. Lungs are clear to auscultation and appear unlabored Cardiac exam, Rhythm is regular.. No murmurs, rubs or gallops. Abdominal exam reveals normal bowel sounds, soft non tender, no masses Extremities patient has an open area on his left first MTP dorsal area this is dressed but was debrided and biopsied by podiatry. No expanding surrounding erythema patient says he would refuse surgery at any means anyway. He is agreeable antibiotics and wound care at home Preliminary cultures suggest we have a gram-positive infection he does have a history of Enterococcus he will be continued on Augmentin therapy at home Alina sensitivities eventually resulted and change our antibiotic choices Discharge Data Allergies Allergy/AdvReac Type Severity Reaction Status Date / Time poliomyelitis vaccine, live Allergy Unknown Unknown Verified 01/15/22 15:36 oral Consultations 01/15/22 14:28 ED Decision to Admit Stat 01/16/22 15:42 Consult Podiatry Routine Ordered Studies 01/15/22 11:03 CT head/brain wo con Stat 01/15/22 12:59 CT abd pelvis wo con Stat Chest X-Ray 01/15/22 11:03 XR chest 1V portable CLINICAL HISTORY: weakness TECHNIQUE: Single frontal radiograph of the chest was obtained. Comparison: Comparison is made to chest radiograph 09/17/2018 FINDINGS: No lines and tubes are seen. The cardiomediastinal silhouette is normal. The lungs are clear. No evidence of pleural effusion or pneumothorax. IMPRESSION: No acute chest disease. ACT 112: Negative or not required by law. Electronically signed by: José Worrell M.D. 01/15/2022 11:[address] 01/15/22 11:03 CT head/brain wo con CLINICAL HISTORY: confusion Technique: Contiguous axial CT images of the head were acquired from the base of the skull to the vertex without intravenous contrast administration. Images were viewed in brain, subdural and bone windows. Automated dose lowering techniques and/or adjustment according to patient size were utilized for this exam. Comparison: Comparison is made to CT head 09/06/2018 Findings: Areas of decreased attenuation are present in the periventricular and subcortical white matter bilaterally consistent with small vessel ischemic disease. Generalized cerebral atrophy with commensurate enlargement of the ventricles, sulci, and cisterns is also present. There is no acute intracranial hemorrhage or evidence of acute territorial infarction. No shift of the midline structures, mass effect, or extra-axial abnormalities are shown. Atherosclerotic calcifications are present in the intracranial segments of the internal carotid arteries. 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 Imaged portions of the paranasal sinuses and mastoid air cells are clear. The orbits appear normal. There are no acute fractures of the calvaria or scalp swe lling. Impression: No acute intracranial hemorrhage, no evidence of acute territorial infarction or other acute intracranial disease process. ACT 112: Negative or not required by law. Electronically signed by: José Worrell M.D. 01/15/2022 12:32 PM Abdomen/Pelvis CT 01/15/22 12:59 CT abd pelvis wo con CLINICAL HISTORY: sepsis, hypoglycemia WBC 19, hypothermic TECHNIQUE: Helical axial images of the abdomen and pelvis were obtained. Automated dose lowering techniques and/or adjustment according to patient size were utilized for this exam. This exam was performed without intravenous contrast. CT DOSE: 471.90 mGy.cm COMPARISON: Comparison is made to CT abdomen pelvis 07/22/2017 FINDINGS: Lower chest: Right lower lobe groundglass and consolidative changes are partially seen. Liver: Unremarkable. No focal lesions are seen. Gallbladder and biliary tree: Calcification of the gallbladder wall is noted. This is unchanged from prior. No intra- or extrahepatic biliary ductal dilation. Pancreas: Unremarkable, no focal lesions. Spleen: Unremarkable. Adrenals: Unremarkable. Kidneys and ureters: Perinephric stranding is noted bilaterally. No hydronephrosis or hydroureter is seen. Bladder: Unremarkable. Reproductive organs: Prostatomegaly is seen. Bowel: Diverticulosis is seen without evidence of diverticulitis. The appendix is normal. Lymph nodes Retroperitoneal: Subcentimeter lymph nodes are noted. Mesenteric: Unremarkable. Pelvic: Prominent subcentimeter inguinal nodes are noted. Subcentimeter external iliac nodes are seen bilaterally. Peritoneum: Normal. Vessels: Unremarkable. Abdominal wall: Unremarkable. Bones: Degenerative changes in the visualized spine. IMPRESSION: 1. No acute abnormalities are seen. 2. Calcified gallbladder wall, unchanged from prior exam. 3. Nonspecific perinephric stranding without evidence of hydronephrosis or other acute abnormality. ACT 112: Negative or not required by law. Electronically signed by: José Worrell M.D. 01/15/2022 2:02 PM Foot X-Ray 01/15/22 17:22 XR foot LT 2V CLINICAL HISTORY: Nonhealing left foot wound. Assess for ostial myelitis. COMPARISON STUDY: Left foot 09/25/2019. FINDINGS: There is a 2 cm focal skin ulceration at the medial aspect of the first MTP joint. There are subtle cortical erosion/irregularity at the medial aspect of the first metatarsal head. This is new from the prior study and likely represents osteomyelitis. The bones are osteopenic. No fracture or dislocation. Soft tissue swelling within the foot. There are mild vascular calcifications. Plantar and posterior calcaneal spurs are noted. IMPRESSION: There is a 2 cm skin ulceration at the medial aspect of the first MTP joint. Deep to the skin ulceration there is subtle cortical erosion/irregularity at the medial aspect of the first metatarsal head. This is new from the prior study and is consistent with osteomyelitis. ACT 112: Negative or not required by law. Electronically signed by: Wale Cronin M.D. 01/15/2022 5:52 PM Hospital Course (1) Sepsis: Resolved patient presents with elevated WBC, hypothermia, hypoglycemic - SIRS 3 qSOFA- 1 - sources- diabetic foot ulcer- with osteomyelitis 1 of 2 blood cultures with gram-positive cocci, coag negative staph - metabolic encephalopathy resolved - De escalate to Augmentin therapy Consult podiatry patient's previously seen Dr. Blanca Felipe performed deep tissue culture these are pending at discharge will have follow-up with Dr. Blanca Felipe - (2) Diabetic foot ulcer: As above - consult wound care for continued treatment/debridement -Patient refused any suggestion of surgery felt not to be surgical candidate due to poor vascular supply, most recent vascular eval september with noted restenosis at previous intervention area and not felt to be candidate to re inteveine (3) Chronic venous insufficiency of lower extremity: resume xarelto that is at PVD doses in the case that surgical intervention is needed on toe, will start DVT prevention doses 01/17/22 (4) Diabetes mellitus: DMII on lantus and Novolin at home -Hypoglycemic events discontinuation of Lantus during this hospital stay (5) Acute kidney injury: MACY on CKD 4 - baseline [employer] 2.2-2.4 - (6) Ischemic cardiomyopathy: Continue statin, he was previously on lisinopril but discontinued likely secona ry to his renal function - not on BB Will be on once daily Lasix as presented hypovolemic (reduction from twice daily dosing) - previously refused angiography (7) PAD (peripheral artery disease): As above statin (8) BPH (benign prostatic hyperplasia): (9) Hypoglycemia: stopping basal insulin loose ssi started - continue diet- he may need assistance eating (10) Elevated liver enzymes: (11) Elevated troponin I level: Likely secondary to demand ischemia from sepsis-- no acute ECG changes noted Total Time Total Time Spent Total Time Spent (In Minutes): It required greater than 30 minutes to prepare this patient for discharge Discharge Plan Discharge Items Patient Disposition: Personal [facility]pc Reason For Visit: SEPSIS Discharge Diagnosis: Diabetic foot infection with concern for osteomyelitis [place] to be nonsurgical candidate also patient refuses surgery Activity: Per Instructions section Activity Comment: Elevate leg is much as possible, discourage submersion bathing Non-emergency contact: Primary Care Provider and Specialist Call non-emergency contact if: your symptoms worsen Follow-up/Referrals: Hayley Watson MD [Primary Care Provider] - Jaylin Reyes CRNP [Nurse Practitioner] - (please have pt enrolled for care) Diet: Carb Consistent or DM2 Addtl Attending Provider Instructions: Patient has diabetic foot infection. Wash open areas of his feet daily with soap and water dry completely Pressures that are open please apply an antibiotic ointment and bandage to keep covered Elevate legs when not walking as much as possible Continue antibiotics until told to discontinue from the wound care appointment Please have follow-up with wound care as this is vital for the patient's improvement patient is at significant risk of progression of infection and possible loss of limb Pending Studies at Discharge: Yes Studies:: wound cultures Stand-Alone Forms: My [place], Smoking Cessation Skilled Items Patient informed of condition?: Yes DNR: No Discharge Level of Care: Other Communicable Disease: No Discharge Prognosis: Stable Lines: None Urinary Catheter: Yes Medications and DC Order Prescriptions: Continued Xarelto 2.5 mg tablet 2.5 mg PO BID Qty: 60 11RF atorvastatin [Lipitor] 40 mg tablet 40 mg PO HS Qty: 90 3RF (DME) Accu-Chek Erin Plus test strp Strip See Rx Instructions .ROUTE .MEDSUPPLY Qty: 100 5RF Rx Instructions: test blood sugar 3 X DAILY E11.9 ammonium lactate 12 % lotion 1 applic topical BID Qty: 400 3RF (DME) lancets [ReadyLance Safety Lancets] 30 gauge misc See Rx Instructions .Route Qty: 100 5RF Rx Instructions: TEST 3 TIMES A DAY (DME) Easy Touch Safety Pen Needle 30 gauge x 5/16" needle See Rx Instructions .Route Qty: 300 3RF Rx Instructions: Use for injecting insulin at least 4 injection daily Novolin R Flexpen 100 unit/mL (3 mL) insulin pen See Rx Instructions .ROUTE .COMPLEX Qty: 15 1RF Rx Instructions: Inject per sliding scale with meals and at bedtime up to 50 units a day ferrous gluconate 324 mg (37.5 mg iron) tablet 324 mg PO BID Qty: 60 11RF multivitamin with minerals Tablet 1 tab PO DAILY Qty: 90 3RF Therems-M 9 mg iron-400 mcg tablet 1 tab PO DAILY Qty: 90 3RF calcitriol 0.25 mcg capsule 0.25 mcg PO DAILY Qty: 90 3RF docusate sodium [Colace] 100 mg capsule 100 mg PO BID GlucaGen HypoKit 1 mg recon soln 1 mg SQ UD PRN (Reason: hypoglycemia) acetaminophen 325 mg capsule 325 mg PO QID PRN (Reason: Fever Or Pain) albuterol sulfate 90 mcg/actuation aerosol powdr breath activated 2 inh inhalation Q6H PRN (Reason: Shortness Of Breath Or Wheezing) polyethylene glycol 3350 [Miralax] 17 gram/dose powder 17 g PO DAILY PRN (Reason: Constipation) aspirin [Adult Aspirin Regimen] 81 mg tablet,delayed release (DR/EC) 81 mg PO DAILY@0900 amoxicillin-pot clavulanate 500-125 mg tablet 1 tab PO BID Qty: 90 0RF Rx Instructions: bEGIN 12/28/21 X ? UNCERTAIN Changed furosemide [Lasix] 40 mg tablet 40 mg PO DAILY Qty: 90 3RF Discontinued Lantus Solostar U-100 Insulin 100 unit/mL (3 mL) insulin pen See Rx Instructions .ROUTE .COMPLEX Qty: 15 5RF Rx Instructions: Inject 16 units in the AM and 10 units in the HS ; Discharge Orders: Discharge Order (Routine); Ordered 01/18/22 Ordered By: Cain Patel Admission Data Admit Date/Time: 01/15/22 15:32 Attending Provider: Cain Patel Admit Provider: Jaquan Burnett Primary Care Provider: Hayley Watson V. Other Providers: Donny Toribio ; Sarah Merritt Coding Level of Care Code D/C DAY MANAGEMENT >30 MINS Diagnoses Sepsis A41.9 Diabetic foot ulcer E11.621; L97.509 Chronic venous insufficiency of lower extremity I87.2 Diabetes mellitus E11.9 Acute kidney injury N17.9 Ischemic cardiomyopathy I25.5 PAD (peripheral artery disease) I73.9 BPH (benign prostatic hyperplasia) N40.0 Lower urinary tract symptom presence: symptoms absent Hypoglycemia E16.2 Elevated liver enzymes R74.8 Elevated troponin I level R77.8
[2022-01-19] MEDS ORDERED: VANCOMYCIN LEVEL ONE (08:30)
== END 2022-01-18 16:09 | disposition home or self-care (01) | DRG 871 ==
LOC: ED 10:44 → 2S 15:32 → SUATTDRO 15:32 → 2S 18:45
DX: G93.41 Metabolic encephalopathy; Z79.4 Long term (current) use of insulin; N40.0 Benign prostatic hyperplasia without lower urinary tract symptoms; Z88.7 Allergy status to serum and vaccine; L97.529 Non-pressure chronic ulcer of other part of left foot with unspecified severity; A41.2 Sepsis due to unspecified staphylococcus; E11.649 Type 2 diabetes mellitus with hypoglycemia without coma; Z79.01 Long term (current) use of anticoagulants; Z53.29 Procedure and treatment not carried out because of patient's decision for other reasons; I50.30 Unspecified diastolic (congestive) heart failure; I87.2 Venous insufficiency (chronic) (peripheral); I25.2 Old myocardial infarction; E86.0 Dehydration; R68.0 Hypothermia, not associated with low environmental temperature; R00.0 Tachycardia, unspecified; N17.9 Acute kidney failure, unspecified; E11.51 Type 2 diabetes mellitus with diabetic peripheral angiopathy without gangrene; E11.69 Type 2 diabetes mellitus with other specified complication; E11.42 Type 2 diabetes mellitus with diabetic polyneuropathy; N18.4 Chronic kidney disease, stage 4 (severe); E11.621 Type 2 diabetes mellitus with foot ulcer; I25.5 Ischemic cardiomyopathy; Z86.14 Personal history of Methicillin resistant Staphylococcus aureus infection; Z79.82 Long term (current) use of aspirin; M86.9 Osteomyelitis, unspecified